=== PATIENT | female | born 1970 | race Caucasian/White ===

== ENCOUNTER 2024-12-17 22:28 | Emergency (ER) | payer MEDICARE, MEDICAID, SELFPAY ==
[2024-12-17 22:31] VITALS: BP 185/76; PULSE 69; RESP 18; TEMP 36.7; O2SAT 97
--- OUTSIDE RECORDS SUMMARY | 2024-12-17 22:33 | XMS_ITS | Continuity of Care Document ---
Author Organization [facility] Address [address] [place] [address] Phone Care Team Providers Care Chain Puller Name Role Phone Marilu Clifford PA-C Unavailable Unavailable Advance Directives Directive Yes / No Effective Date File Name No Information Encounters Encounter Description Practice Location Reason(s) For Visit Diagnoses Date Provider Providers Copied on Encounter [facility], [address] [place] [address], [facility], tel: [phone] [place] chart update (chief complaint) No Information Darrin Michel. [address] [place] [address], [facility], . tel: [phone] Family History Family Member Type Diagnosis Age At Onset No Information Payers Payer name Insurance type Covered alliance party ID Authoriza tion(s) No Information Social History Type Description Quantity Date Captured Comments Sex Female Smoking Status No Information Chief Complaint And Reason For Visit From encounter dated '12/28/2012 13:43'. chart update (chief complaint) Reason For Referral Reason For Referral No Information History Of Present Illness Encounter Date Complaint History Of Prese nt Illness No Information Functional Status Date Functional Assessmen t No Information Instructions Date Instruction Additional Infor mation No Information Assessments Type Assessment Date No Information Patient Care Teams Name Effective Dates (start - stop) Status Members No Information
--- OUTSIDE RECORDS SUMMARY | 2024-12-17 22:33 | XMS_ITS | Clinical Summary ---
Author Organization [facility] Address [address] [facility] [place] [address] Care Team Providers Care Battery Loader Name Role Phone Adele Lagos MD Primary Care Provider Source Comments [facility],non-owned Affiliates and Associated Physician Practices is amultiple site organization consisting of ambulatory clinics and hospital sitesin [place], [place], [place] and [place]. This disclosure is being madepursuant to the Care Everywhere program and may not contain all information available regarding this patient. Last updated 18.[facility] Allergies Active Allergy Reactions Criticality Noted Date Comments Diphenhydramine 11/15/2011 irritable Clarithromycin Nausea and/or Vomiting 2 Prochlorperazine 11/15/2011 irritable Sumatriptan 11/15/2011 tachycardic Metoclopramide Unknown 01/09/2017 Patient becomes irritable with IV and IM - able to take PO. Medications * Be aware that medications may not be up to date on this document. Alwaysverify current medications with the patient. Medication Sig Dispensed Refills Start Date End Date Status ketorolac (TORADOL) 10 MG tablet Take 10 mg by mouth every 4 hours as needed. Active butalbital-acetami nophen-caffeine (FIORICET) 50-325-40 MG tablet Take 1 Tab by mouth every 4 hours as needed. Active metoprolol succinate XL 24hr (TOPROL XL) 200 MG tablet Take 200 mg by mouth at bedtime. Active citalopram (CELEXA) 20 MG tablet Take 40 mg by mouth once daily Active lovastatin (MEVACOR) 20 MG tablet Take 40 mg by mouth at bedtime Active metoclopramide (REGLAN) 10 MG tablet Take 10 mg by mouth at bedtime. Active insulin glargine (LANTUS) injection Inject 55 Units subcutaneously at bedtime Active desogestrel-ethiny l estradiol (KARIVA) 0.15-0.02/0.01 MG (01/02) tablet Take 1 Tab by mouth once daily. Active insulin lispro (HUMALOG) injection Inject subcutaneously 3 times daily before meals Takes 10 units in the morning, 15 units at lunch, and 20units at supper Active ibuprofen (MOTRIN) 800 MG tablet Take 1 Tab by mouth 3 times daily as needed for Pain. 20 Tab 0 02/21/2012 Active amLODIPine (NORVASC) 5 MG tablet Take 5 mg by mouth at bedtime Active ketorolac (TORADOL) injection Inject 60 mg into muscle once Active ondansetron, disintegrating, (ZOFRAN ODT) 4 MG tablet Take 1 Tab by mouth every 6 hours as needed for Nausea/Vomiting Allow tablet to dissolve on the tongue 20 Tab 01/09/2017 Active Active Problems No known active problems Social History Tobacco Use Types Packs/Day Years Used Date Smoking Tobacco: Never Alcohol Use Standard Drinks/Week Comments No 0 (1 standard drink = 0.6 oz pur e alcohol) Sex and Gender Information Value Date Recorded Sex Assigned at Not on file Gender Identity Not on file Sexual Orientation Not on file Last Filed Vital Signs Vital Sign Reading Time Taken Comments Blood Pressure 144/87 03/14/2017 8:23 PM CDT Pulse 87 03/14/2017 8:21 PM CDT Temperature 36.4 C (97.6 F) 03/14/2017 6:51 PM CDT Respiratory Rate 18 03/14/2017 8:21 PM CDT Oxygen Saturation 96% 03/14/2017 6:51 PM CDT Inhaled Oxygen Concentration - - Weight 111.1 kg (245 lb) 03/14/2017 6:51 PM CDT Height 170.2 cm (5' 7 ) 03/14/2017 6:51 PM CDT Body Mass Index 38.37 03/14/2017 6:51 PM CDT Plan of Treatment Health Maintenance Due Date Last Done Comments DENNYS (AGES 45-75) - COL ON CA SCREENING 1970 COLON MONITORING 1970 COLONOSCOPY - COLON CA SCREENING 1970 CT COLONOGRAPHY - COLON CA SCREENING 1970 Colorectal Cancer Screening 1970 FIT - COLON CA SCREENING 1970 FLEX SIG - COLON CA SCREENING 1970 MAMMOGRAM 1970 MEDICARE AWV 12 MONTHS 1970 PAP SMEAR 1970 HIV SCREENING 1985 HEPATITIS C SCREENING 09/12/1988 DTAP/TDAP/TD VACCINES (1 - Tdap) 1989 HEPATITIS B VACCINE (1 of 3 - 19+ 3-dose series) 1989 PNEUMOCOCCAL VACCINE 50+ (1 of 1 - PCV) 2020 ZOSTER VACCINE (1 of 2) 2020 COVID-19 VACCINE (1 - 2023-2 5 season) 2024 DEPRESSION SCREENING 09/14/2024 INFLUENZA VACCINE (Season Ended) 2025 HIB VACCINE Aged Out No longer eligi ble based on patient's age to complete this topic HPV VACCINE Aged Out No longer eligi ble based on patient's age to complete this topic MENINGOCOCCAL (Group B) VACC INE SHARED DECISION-MAKING Aged Out No longer eligibl e based on patient's age to complete this topic MENINGOCOCCAL GROUPS A/C/Y/W VACCINE Aged Out No longer eligible b ased on patient's age to complete this topic PNEUMOCOCCAL VACCINE Aged Out No long er eligible based on patient's age to complete this topic Care Teams Battery Loader Relationship Specialty Start Date End Date Adele Lagos MD PCP - General Family Medicine 12/19/16
--- OUTSIDE RECORDS SUMMARY | 2024-12-17 22:33 | XMS_ITS | Clinical Summary ---
Author Organization [facility] Address [address] [place] [address] Phone Care Team Providers Care Court Monitor Name Role Phone Adele Lagos MD Primary Care Provider [phone] Allergies Active Allergy Reactions Criticality Noted Date Comments Clarithromycin Nausea and Vomiting Low 04/08/2014 Diphenhydramine Hcl Anxiety Low 04/08/2014 Prochlorperazine Edisylate Anxiety Low 4 Sumatriptan Succinate Other (See Comments) 03/15 tachycardia Medications loyluzejdm-tom-m cetaminop-caf (FIORICET #3) 44-61-233-40 mg capsule Take 1 Cap by mouth every 4 hours as needed for Migraine. Active metoprolol succinate (TOPROL XL) 100 mg Extended Release 24 hour tablet Take 200 mg by mouth daily at bedtime. Active amLODIPine (NORVASC) 5 mg tablet Take 5 mg by mouth daily at bedtime. Active atorvastatin (LIPITOR) 40 mg tablet Take 40 mg by mouth Daily LATE. Active citalopram (CELEXA) 40 mg tablet Take 40 mg by mouth daily at bedtime. Active metoclopramide HCl (REGLAN) 10 mg tablet Take 10 mg by mouth daily at bedtime. Active Desogestrel-Ethi nyl estradiol (KARIVA, 28,) 0.15-0.02mg x21 /0.01 mg x 5 tablet Take 1 Tab by mouth daily at bedtime. Active amitriptyline (ELAVIL) 100 mg tablet Take 100 mg by mouth daily at bedtime. Active KETOROLAC TROMETHAMINE (TORADOL IM) Inject 60 mg by intramuscular injection 1 time daily as needed for Other (See Comment) (migraine). Active ondansetron (ZOFRAN) 4 mg Tablet Take 1 Tab by mouth every 12 hours as needed for Nausea (vomit). 10 Tab None 05/27/20 14 Active Active Problems Problem Noted Date Diagnosed Date Migraine headache 05/13/2014 Social History Tobacco Use Types Packs/Day Years Used Date Smoking Tobacco: Never Smokeless Tobacco: Never Alcohol Use Standard Drinks/Week Comments No 0 (1 standard drink = 0.6 oz pur e alcohol) Comments No Sex and Gender Information Value Date Recorded Sex Assigned at Not on file Legal Sex Female 7:45 PM CDT Gender Identity Not on file Sexual Orientation Not on file Last Filed Vital Signs Vital Sign Reading Time Taken Comments Blood Pressure 144/73 02/03/2017 6:34 PM CDT Pulse 75 06/26/2014 9:30 PM CDT Temperature 36.6 C (97.9 F) 02/03/2017 6:34 PM CDT Respiratory Rate 18 02/03/2017 6:34 PM CDT Oxygen Saturation 98% 02/03/2017 6:34 PM CDT Inhaled Oxygen Concentration - - Weight 113.4 kg (250 lb) 02/03/2017 4:57 PM CDT Height 170.2 cm (5' 7 ) 02/03/2017 4:57 PM CDT Body Mass Index 39.16 02/03/2017 4:57 PM CDT Plan of Treatment Health Maintenance Due Date Last Done Comments DTAP/TDAP/TD VACCINES (1 - Tdap) 1989 HEPATITIS B VACCINES (1 of 3 - 19+ 3-dose series) 12/1989 HPV/Cotest (21-29) 1991 CERVICAL CANCER SCREENING 2000 HPV/Cotest (30-65) 2000 PAP SMEAR 2000 BREAST CANCER SCREENING 2010 COLORECTAL SCREENING 2015 Colorectal Cancer Screening 2015 FIT-DNA Q 3 years 2015 FIT/FOBT Q 1 year 2015 Flex Sig/CT Colonography Q 5 years 2015 ZOSTER VACCINE (1 of 2) 2020 INFLUENZA VACCINE (#1) 2024 Insurance MEDICARE PART A AND B MEDICAID [place] Care Teams Court Monitor Relationship Specialty Start Date End Date Adele Lagos MD [address] [place] [address] PCP - General Family Practice 11/29/16
--- OUTSIDE RECORDS SUMMARY | 2024-12-17 22:33 | XMS_ITS | Data Portability ---
Author Organization [facility], [address] 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 She returns for follow up of increased pain. She has previously undergone two neuro interventional procedures with cyst aspiration at [facility]. She tells me that for the last several weeks, she has been experiencing left shoulder and arm pain as well as heaviness in the anterior chest along with lower extremity pain in the left hip and leg. Neurologic exam is significant for 4+ bilateral hip flexor weakness and absent Achilles and patellar reflexes bilaterally. MRIs of the cervical, thoracic and lumbar spine were performed today at [facility]. The cervical study reveals excellent alignment and mild degenerative changes, most significant at C5-6 where a tiny central disc bulge barely contacts the cord. Lumbar spine MRI shows equally mild changes, most significant at L4-5 with right foraminal stenosis. The thoracic study is, to my eye, stable, compared to her prior imaging, showing presence of the T5 through 7 arachnoid cyst. I suspect some of her symptoms are a result of re-accumulation of cyst fluid. I am referring her to [facility] for consideration of repeat cyst aspiration. I have encouraged her to try to lose weight and make the possibility of a thoracic laminectomy safer. Thank you for allowing us to participate in this patient's care. Not available 08/04/2024 15:06:37 11/02/2024 11/02/2024 1. Healthy lifestyle was encouraged, including low glycemic/low processed food diet and regular exercise. Medications can be refilled as needed. The patient does have CAD. She is currently managed by cardiology. She is on metoprolol and a statin medication. 2. Hypertension is stable under the current medication regimen of amlodipine and metoprolol. No medication changes at this time. Recommend continuing to monitor home blood pressure readings. Request that they report changes in numbers or problems with medication. Discussed continued lifestyle modifications for weight and blood pressure. 3. The patient does have morbid obesity by bmi diagnosis. Diet and and weight loss recommended. 4. 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 She is currently on the Omnipod and follows with endocrinology. 5. The patient does have a spinal arachnoid cyst. It has been drained three times. She currently follows with neurosurgery. 6. The patient lr shave history of chronic back pain including lumbar spondylosis. She has previously done PT for the back and seen pain management. 7. Patient s hyperlipidemia is stable on current medication regimen of atorvastatin. No medication changes at this time. Request that they report changes in symptoms such as myalgias or arthralgias. Continue to follow a low-fat diet, avoid processed and fast foods. Discussed continued active lifestyle at least 20 minutes per day exercise/activity . 8. GERD is stable on current medication regimen of pantoprazole. No medication changes at this time. Should symptoms worsen or fail to respond to medication, then I requested a progress report. Discussed continued lifestyle modifications of not eating two hours before bed, elevating the head of the bed two inches, and dietary changes for improved symptom control. 9. The patient does upon record review, have history of asthma and I did receive her discharge summary from her time in the hospital last May for which they referred her to pulmonology for. It looks like she was requiring oxygen at this time. They did think some part of it was perhaps asthma or undiagnosed sleep apnea. They wanted her to follow up with pulmonology outpatient to have a sleep study and PFT. The patient was supposed to see a fisher line in [place] but because of the distance to get there, she did not end up going but would like referral to a fisher line here. We will make that referral today. 10. The patient has history of gastroparesis related to her diabetes. She currently takes antinausea medicines for this. 11. Discussed the patient s left shoulder pain. She has not done physical therapy for this yet. Had x-rays that were normal. Would recommend physical therapy at this time to help satisfy insurance requirements of possible additional imaging. We will go ahead and place a physical therapy order. 12. Discussed her bilateral leg cramps. Unrelated to her neuropathy. Recommended increased water intake and taking magnesium as needed. 13. The patient does have history of fibromyalgia. She takes hydrocodone occasionally. She usually gets about ten per month and tizanidine as needed. 14. Depression is stable on current medication regimen of citalopram. No medication changes at this time. Patient denies suicidal and/or homicidal ideation. Reviewed possible side effects of and expected benefits of medication. Should any changes arise, or dosing changes be requested, they are to contact us at that time. 15. The patient uses doxepin for her insomnia and help sleeping. She has been on the 50 mg for a while but feels like she could use an increased dose, so we will go ahead and increase to the 75 mg. 16. The patient will follow up in six months or sooner as needed. 17. I personally spent a total of 60 minutes on the patient on this date of service including both ohit-kp-momz and non- trbr-we-nqle time excluding any separately reportable services. SKK [email or web address] Not available 11/03/2024 10:26:31 12/01/2024 12/01/2024 1. The patient s vitals are stable today. The patient s legs are not swollen on exam. I do not hear anything in the lung exam. I am honestly most likely to think this is heart failure or anything with the lungs. I am thinking more along the lines of deconditioning and possibly just some venous insufficiency. Did recommend the patient wearing compression stockings unless sleeping and she does follow with cardiology already. They are wanting to do an exercise stress test. I encouraged her to do this as well. We will get a chest x-ray and BNP today and will follow up with those. 2. Discussed precautions with the patient and gave them signs and symptoms to look out for and precautions on when to call the clinic or go to the emergency department. SKK [email or web address] Not available 12/01/2024 21:57:27 Plan of Treatment Reminders Order Date Submit Date Provider Last Modified By Organization Details Last Modified Time Details Appointments Malissa terry Patient 20.EST 2024 03:00P M Dr. Pauly Vizcaino Not available Not available Not available Malissa terry Patient 15.EST 2024 11:30A M Tiffanie Painting Not available Not available Not available New Patient Visit 20.NEW 2024 02:40P M Dr. Carrol Villagomez Not available Not available Not available Malissa terry Patient 20.EST 2024 02:00P M Dr. Pauly Vizcaino Not available Not available Not available Lab pro BNP (pro B-type natriur etic peptide ), serum or plasma 2024 025 [facility], [address] [place] [address], [address], 12/02/2024 00:46:11 Referral physica l therapi st referra l 2024 025 [facility], [address] [place], [address], 11/09/2024 04:26:23 pulmono logist referra l 2024 025 vinay Villagomez MD, [address] [place] [address], [address], 11/08/2024 15:04:[address] guided aspirat ion procedu re (PROC) - CT guided cyst aspirat ion at T5-T7 2023 024 [facility]) Scheduling, [address] [place] [address], [address], 08/30/2024 09:57:37 Surgeries None recorde d. Imaging XR, chest, 2 view 2024 025 [facility] Scheduling, [address] [place], [address], 12/01/2024 23:35:54 MAMMO, screeni ng, digital , bilater al 2024 025 [facility], [address] [facility], [place], [address], 12/16/2024 04:20:00 Medication Orders tizanid ine 4 mg tablet 2024 025 [place], [address] [place] [address], [address], 11/10/2024 13:52:17 hydroco done 5 mg-acet aminoph en 325 mg tablet 2024 025 [place], [address] [place] [address], [address], 12/01/2024 16:35:23 doxepin 75 mg capsule 2024 025 [place], [address] [place] [address], [address], 11/10/2024 13:52:14 pantopr azole 40 mg tablet, delayed release 2024 025 [place], [address] [place] [address], [address], 11/02/2024 15:40:30 atorvas tatin 40 mg tablet 2024 025 [place], [address] [place] [address], [address], 11/02/2024 15:35:29 dicyclo mine 20 mg tablet 2024 025 [place], [address] [place] [address], [address], 11/02/2024 15:35:28 amlodip ine 5 mg tablet 2024 025 [place], [address] [place] [address], [address], 11/02/2024 15:40:31 metopro lol succina te ER 50 mg tablet, extende d release 24 hr 2024 025 [place], [address] [place] [address], [address], 11/10/2024 13:52:16 citalop silvio 40 mg tablet 2024 025 [place], [address] [place] [address], [address], 11/10/2024 13:52:16 Patient TargetsNo targets recorded. Patient InstructionsNo instructions recorded. 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 Referring Physician: Pauly Vizcaino [facility], Encounter Date: 11/02/2024 Physical Therapist Referral for Pain of left shoulder region Referring Physician: Pauly Vizcaino [facility], Encounter Date: 11/02/2024 Results Created Date Observation Date Name Description Value Unit Range Abnormal Flag Note LastModifiedBy Organization Detail LastModifiedTime 09/20/19 25 09/20/2024 URINA LYSIS color YELLOW normal : yellow Not Available [facility] Scheduling [address] [place], [address], 09/20/2024 17:53:39 09/20/19 25 09/20/2024 URINA LYSIS character CLOUDY normal : clear Not Available [facility] Scheduling [address] [place], [address], 09/20/2024 17:53:39 09/20/19 25 09/20/2024 URINA LYSIS spec. grav 1.020 normal : 1.003- 1.029 Not Available [facility] Scheduling [address] [place], [address], 09/20/2024 17:53:39 09/20/19 25 09/20/2024 URINA LYSIS pH 6.0 normal : 4.5 - 7.8 Not Available [facility] Scheduling [address] [place], [address], 09/20/2024 17:53:39 09/20/19 25 09/20/2024 URINA LYSIS leukocytes 1+ normal : negati ve Not Available [facility] Scheduling [address] [place], [address], 09/20/2024 17:53:39 09/20/19 25 09/20/2024 URINA LYSIS nitrite NEGATI VE normal : negati ve Not Available [facility] Scheduling [address] [place], [address], 09/20/2024 17:53:39 09/20/19 25 09/20/2024 URINA LYSIS protein NEGATI VE normal : negati ve Not Available [facility] Scheduling [address] [place], [address], 09/20/2024 17:53:39 09/20/19 25 09/20/2024 URINA LYSIS glucose NEGATI VE normal : negati ve Not Available [facility] Scheduling [address] [place], [address], 09/20/2024 17:53:39 09/20/19 25 09/20/2024 URINA LYSIS ketones NEGATI VE normal : negati ve Not Available [facility] Scheduling [address] [place], [address], 09/20/2024 17:53:39 09/20/19 25 09/20/2024 URINA LYSIS urobilinogen 0.2 normal : 0.2 - 1.0 Not Available [facility] Sched[facility] [address] [place], [address], 09/20/2024 17:53:39 09/20/19 25 09/20/2024 URINA LYSIS bilirubin NEGATI VE normal : negati ve Not Available [facility] Scheduling [address] [place], [address], 09/20/2024 17:53:39 09/20/19 25 09/20/2024 URINA LYSIS blood NEGATI VE normal : negati ve MICRO SCOPI C Not Available [facility] Scheduling [address] [place], [address], 09/20/2024 17:53:39 09/20/19 25 09/20/2024 URINA LYSIS WBC/hpf 3-5 normal : 0-5 hpf Not Available [facility] [address] [place], [address], 09/20/2024 17:53:39 09/20/19 25 09/20/2024 URINA LYSIS RBC/hpf 0-2 normal : 0-3 hpf Not Available [facility] [address] [place], [address], 09/20/2024 17:53:39 09/20/19 25 09/20/2024 URINA LYSIS epith/hpf >50 normal : 0-5 hpf Not Available [facility] Scheduling [address] [place], [address], 09/20/2024 17:53:39 09/20/19 25 09/20/2024 URINA LYSIS cast/lpf NONE SEEN normal : 0-4 lpf Not Available [facility] [address] [place], [address], 09/20/2024 17:53:39 09/20/19 25 09/20/2024 URINA LYSIS crystals NONE SEEN normal : negati ve Not Available [facility] [address] [place], [address], 09/20/2024 17:53:39 09/20/19 25 09/20/2024 URINA LYSIS bacteria TRACE normal : negati ve abnormal Not Available [facility] [address] [place], [address], 09/20/2024 17:53:39 10/16/1910/21/2024 CULTU RE BLOOD results _BLOO D CULTU RE_ PRELI MINAR Y REPOR T _LAC_ _ 10/18. 249.L B . _NO_G ROWTH _AFTE R_48_ HOURS _INCU BATIO N____ _ 10/18. 249.L B . FINAL REPOR T _NO_A EROBI C/ADALBERTO EROBI C_GRO WTH_A FTER_ 5_DAY S_INC UBAT. _ 10/21.0 813.C ML. _ _ Micro biolo gy Speci men Sourc e Colle ction Date Colle ction Time Speci men Note: Recei pt Date Exam Id. No: [id number] Exam Statu s Compl etion Date Compl etion Time 10/18. 249.L B . 10/21.0 813.C ML.CO MPLET E Not Available [facility] Scheduling [address] [place], [address], 10/21/2024 09:13:55 10/16/1908 1110/16/2024 MAGNE SIUM magnesium 1.7 mg/dL 1.7 - 2.8 Not Available [facility] Scheduling [address] [place], [address], 10/16/2024 07:43:53 10/16/19 25 10/16/2024 PROCA LCITO ALMA DELIA (PCT) procalcitoni n 4.042 A graciela ntrat ion <0.5 ng/mL repre sents a low risk of sever e sepsi s and/o r septi c shock . A graciela ntrat ion >2.0 ng/mL repre sents a high risk of sever e sepsi s and/o r septi c shock . Never thele ss, graciela ntrat ions <0.5 ng/mL do not exclu de an infec tion, on accou nt of local ized infec tions (with out syste deetphi signs ) which can be assoc iated with such low graciela ntrat ions, or a syste deepthi infec tion in its initi al stage s (<6 hours ). Futhe rmore , incre ased proca lcito alma delia can occur witho ut infec tion. PCT graciela ntrat ions betwe en 0.5 and 2.0 ng/mL shoul d be inter prete d ellen milner into accou nt patie nt's histo ry. It is recom nate d to retes t PCT witho ut 6-24 hours if any graciela ntrat ion <2.0 ng/mL are obtai tiffanie. Not Available [facility] [address] [place], [address], 10/16/2024 07:28:17 10/16/19 25 10/16/2024 C-PRECIOUS CTIVE PROTE IN CRP 9.381 mg/dL 0.000 - 0.500 high Not Available [facility] Sched[facility] [address] [place], [address], 10/16/2024 07:14:57 10/16/19 25 10/16/2024 COMPL ETE METAB OLIC PANEL sodium 141 mmol/ L 136 - 145 Not Available [facility]uling [address] [place], [address], 10/16/2024 07:14:37 10/16/19 25 10/16/2024 COMPL ETE METAB OLIC PANEL potassium 3.8 mmol/ L 3.5 - 5.1 Not Available [facility] Scheduling [address] [place], [address], 10/16/2024 07:14:37 10/16/19 25 10/16/2024 COMPL ETE METAB OLIC PANEL chloride 110 mmol/ L 98 - 107 high Not Available [facility] Scheduling [address] [place], [address], 10/16/2024 07:14:37 10/16/19 25 10/16/2024 COMPL ETE METAB OLIC PANEL CO2 23 mmol/ L 22 - 28 Not Available [facility] Scheduling [address] [place], [address], 10/16/2024 07:14:37 10/16/19 25 10/16/2024 COMPL ETE METAB OLIC PANEL glucose 129 mg/dL 70 - 105 high Not Available [facility] Scheduling [address] [place], [address], 10/16/2024 07:14:37 10/16/19 25 10/16/2024 COMPL ETE METAB OLIC PANEL BUN 15 mg/dL 7 - 18 Not Available [facility] Scheduling [address] [place], [address], 10/16/2024 07:14:37 10/16/19 25 10/16/2024 COMPL ETE METAB OLIC PANEL creatinine 0.83 mg/dL 0.44 - 1.24 Not Available [facility] Scheduling [address] [place], [address], 10/16/2024 07:14:37 10/16/19 25 10/16/2024 COMPL ETE METAB OLIC PANEL total protein 6.0 g/dL 6.0 - 8.3 Not Available [facility] Scheduling [address] [place], [address], 10/16/2024 07:14:37 10/16/19 25 10/16/2024 COMPL ETE METAB OLIC PANEL albumin 3.2 g/dL 3.5 - 5.0 low Not Available [facility] Scheduling [address] [place], [address], 10/16/2024 07:14:37 10/16/19 25 10/16/2024 COMPL ETE METAB OLIC PANEL T bilirubin 0.7 mg/dL 0.2 - 1.0 Not Available [facility] Scheduling [address] [place], [address], 10/16/2024 07:14:37 10/16/19 25 10/16/2024 COMPL ETE METAB OLIC PANEL SGPT 19 IU/L 10 - 40 Not Available [facility]uling [address] [place], [address], 10/16/2024 07:14:37 10/16/19 25 10/16/2024 COMPL ETE METAB OLIC PANEL alk phos 122 IU/L 32 - 92 high Not Available [facility] Scheduling [address] [place], [address], 10/16/2024 07:14:37 10/16/19 25 10/16/2024 COMPL ETE METAB OLIC PANEL SGOT 18 IU/L 10 - 42 Not Available [facility] Scheduling [address] [place], [address], 10/16/2024 07:14:37 10/16/19 25 10/16/2024 COMPL ETE METAB OLIC PANEL calcium 8.2 mg/dL 8.4 - 10.2 low Not Available [facility] Scheduling [address] [place], [address], 10/16/2024 07:14:37 10/16/19 25 10/16/2024 COMPL ETE METAB OLIC PANEL age 54 yr Not Available [facility] Scheduling [address] [place], [address], 10/16/2024 07:14:37 10/16/19 25 10/16/2024 COMPL ETE METAB OLIC PANEL eGFR 84 \BLDo \eGFR INTER PRETI VE TEXT\ BLDx\ This eGFR is calcu lated using 2020 CKD-E PI Creat inine equat ion witho ut race modif ier based on the NKF-A SN task force recom menda tions . In most healt hy peopl e the kennedy l GFR is 90 mL/mi n/1.7 3 m2 or highe r. A resul t of 60-89 mL/mi n/1.7 3 m2 with kidne y damag e may be kennedy l in some peopl e(suc h as the elder ly, infan ts). A resul t of 60-89 mL/mi n/1.7 3 m2 for three month s or more, along with kidne y damag e(suc h as persi stent prote in in the urine ), means the perso n has early kidne y disea se. When GFR is <60 for three month s or more, chron ic kidne y disea se(CK D) is prese nt. Not Available [facility]uling [address] [place], [address], 10/16/2024 07:14:37 10/16/19 25 10/16/2024 CBC-C OMPLE TE WBC 5.4 10^3u L 4.0 - 10.8 Not Available [facility] Scheduling [address] [place], [address], 10/16/2024 06:58:18 10/16/19 25 10/16/2024 CBC-C OMPLE TE RBC 3.71 10^6u L 3.80 - 5.20 low Not Available [facility]uling [address] [place], [address], 10/16/2024 06:58:18 10/16/19 25 10/16/2024 CBC-C OMPLE TE hemoglobin 9.9 g/dL 11.7 - 16.0 low Not Available [facility] Scheduling [address] [place], [address], 10/16/2024 06:58:18 10/16/19 25 10/16/2024 CBC-C OMPLE TE hematocrit 30.0 % 35.0 - 47.0 low Not Available [facility] Scheduling [address] [place], [address], 10/16/2024 06:58:18 10/16/19 25 10/16/2024 CBC-C OMPLE TE MCV 81 fL 80 - 100 Not Available [facility] Scheduling [address] [place], [address], 10/16/2024 06:58:18 10/16/19 25 10/16/2024 CBC-C OMPLE TE MCH 27 pg 28 - 33 low Not Available [facility] Scheduling [address] [place], [address], 10/16/2024 06:58:18 10/16/19 25 10/16/2024 CBC-C OMPLE TE MCHC 33 g/dL 32 - 36 Not Available [facility] Scheduling [address] [place], [address], 10/16/2024 06:58:18 10/16/19 25 10/16/2024 CBC-C OMPLE TE RDW 14.5 % 11.5 - 15.5 Not Available [facility] Scheduling [address] [place], [address], 10/16/2024 06:58:18 10/16/19 25 10/16/2024 CBC-C OMPLE TE platelet 194 10^3u L 140 - 440 Not Available [facility] Scheduling [address] [place], [address], 10/16/2024 06:58:18 10/16/19 25 10/16/2024 CBC-C OMPLE TE MPV 7.4 fL 7.5 - 11.0 low Not Available [facility] Scheduling [address] [place], [address], 10/16/2024 06:58:18 10/16/19 25 10/16/2024 CBC-C OMPLE TE %neutrophils 56.8 % 40.0 - 75.0 Not Available [facility] Scheduling [address] [place], [address], 10/16/2024 06:58:18 10/16/19 25 10/16/2024 CBC-C OMPLE TE %lymphocytes 29.8 % 15.0 - 45.0 Not Available [facility] Scheduling [address] [place], [address], 10/16/2024 06:58:18 10/16/19 25 10/16/2024 CBC-C OMPLE TE %monocytes 9.9 % 2.0 - 12.0 Not Available [facility] Scheduling [address] [place], [address], 10/16/2024 06:58:18 10/16/19 25 10/16/2024 CBC-C OMPLE TE %eosinophils 3.1 % 0.0 - 5.0 Not Available [facility] Scheduling [address] [place], [address], 10/16/2024 06:58:18 10/16/19 25 10/16/2024 CBC-C OMPLE TE %basophils 0.4 % 0.0 - 2.0 Not Available [facility] Scheduling [address] [place], [address], 10/16/2024 06:58:18 10/16/19 25 10/16/2024 CBC-C OMPLE TE neutrophil 3.1 10^3/ uL 1.7 - 7.0 Not Available [facility] Scheduling [address] [place], [address], 10/16/2024 06:58:18 10/16/19 25 10/16/2024 CBC-C OMPLE TE lymphocyte 1.6 10^3/ uL 0.9 - 3.7 Not Available [facility] Scheduling [address] [place], [address], 10/16/2024 06:58:18 10/16/19 25 10/16/2024 CBC-C OMPLE TE monocyte 0.5 10^3/ uL 0.2 - 0.8 Not Available [facility] Scheduling [address] [place], [address], 10/16/2024 06:58:18 10/16/19 25 10/16/2024 CBC-C OMPLE TE eosinophil 0.2 10^3/ uL 0.0 - 0.5 Not Available [facility] Scheduling [address] [place], [address], 10/16/2024 06:58:18 10/16/19 25 10/16/2024 CBC-C OMPLE TE basophil 0.0 10^3/ uL 0.0 - 0.2 Not Available [facility] Scheduling [address] [place], [address], 10/16/2024 06:58:18 10/16/19 25 10/16/2024 CBC-C OMPLE TE mdw 19.63 0.00 - 20.00 {CD] Not Available [facility] Scheduling [address] [place], [address], 10/16/2024 06:58:18 10/16/19 25 10/16/2024 CBC-C OMPLE TE manual diff NOT INDICA MICHELLE Not Available [facility] Scheduling [address] [place], [address], 10/16/2024 06:58:18 10/16/19 25 10/16/2024 LACTI C ACID lactic acid 0.84 mmol/ L 0.50 - 2.20 Not Available [facility] Scheduling [address] [place], [address], 10/16/2024 06:51:31 10/16/19 25 10/21/2024 CULTU RE BLOOD results _BLOO D CULTU RE_ PRELI MINAR Y REPOR T _LEFT _AC__ _ 10/18.1 249.L B . _NO_G ROWTH _AFTE R_48_ HOURS _INCU BATIO N____ _ 10/18.1 249.L B . FINAL REPOR T _NO_A EROBI C/ADALBERTO EROBI C_GRO WTH_A FTER_ 5_DAY S_INC UBAT. _ 10/21.0 813.C ML. _ _ Micro biolo gy Speci men Sourc e Colle ction Date Colle ction Time Speci men Note: Recei pt Date Exam Id. No: [id number] Exam Statu s Compl etion Date Compl etion Time 10/18.1 249.L B . 10/21.0 813.C ML.CO MPLET E Not Available [facility] Scheduling [address] [place], [address], 10/21/2024 09:13:44 10/16/19 25 10/19/2024 CULTU RE/UR INE results _CULT URE URINE _ Not Available [facility] Scheduling [address] [place], [address], 10/19/2024 11:01:58 10/16/19 25 10/19/2024 CULTU RE/UR INE final report CLEAN CATCH SPECIM EN _50,0 00_cf u/ml_ ___ 10/19.1 001.C ML. ___ Micro biolo gy Not Available [facility] [address] [place], [address], 10/19/2024 11:01:58 10/16/19 25 10/19/2024 CULTU RE/UR INE results Speci [place] Sourc e [id number] 0001 Colle ction Date 10/16 Colle ction Time 04:38 Speci men Note: Recei [place] Date [place] No: [id number] Exam Statu s Compl etion Date 10/18 Compl etion Time 23:03 Organ ism # 1: Strep tococ cus group B (strg rb) 50 000 cfu/m L Antib iotic s strgr b(1) Benzy lpeni cilli n <=0.0 6 S Ampic illin <=0.2 5 S Cefot axime <=0.1 2 S Ceftr iaxon e <=0.1 2 S Levof loxac in 1 S Moxif loxac in 0.12 S Linez olid <=2 S Vanco mycin 0.5 S Tetra cycli ne >=16 R Tigec yclin e <=0.0 6 S S = SUSCE PTIBL E I = INTER MEDIA TE R = RESIS TANT 10/19.1 001.C ML. 10/19.1 001.C ML.CO MPLET E CLEAN CATCH SPECI MEN Not Available [facility] Scheduling [address] [place], [address], 10/19/2024 11:01:58 10/16/19 25 10/16/2024 URINA LYSIS color YELLOW normal : yellow Not Available [facility] [address] [place], [address], 10/16/2024 07:12:36 10/16/19 25 10/16/2024 URINA LYSIS character CLEAR normal : clear Not Available [facility] [address] [place], [address], 10/16/2024 07:12:36 10/16/19 25 10/16/2024 URINA LYSIS spec. grav 1.015 normal : 1.003- 1.029 Not Available [facility] [address] [place], [address], 10/16/2024 07:12:36 10/16/1910/16/2024 URINA LYSIS pH 6.0 normal : 4.5 - 7.8 Not Available [facility] [address] [place], [address], 10/16/2024 07:12:36 10/16/1910/16/2024 URINA LYSIS leukocytes TRACE normal : negati ve Not Available [facility] [address] [place], [address], 10/16/2024 07:12:36 10/16/1910/16/2024 URINA LYSIS nitrite NEGATI VE normal : negati ve Not Available [facility] [address] [place], [address], 10/16/2024 07:12:36 10/16/1910/16/2024 URINA LYSIS protein NEGATI VE normal : negati ve Not Available [facility] [address] [place], [address], 10/16/2024 07:12:36 10/16/1910/16/2024 URINA LYSIS glucose NEGATI VE normal : negati ve Not Available [facility] [address] [place], [address], 10/16/2024 07:12:36 10/16/19 25 10/16/2024 URINA LYSIS ketones NEGATI VE normal : negati ve Not Available [facility] [address] [place], [address], 10/16/2024 07:12:36 10/16/19 25 10/16/2024 URINA LYSIS urobilinogen 1.0 normal : 0.2 - 1.0 Not Available [facility] [address] [place], [address], 10/16/2024 07:12:36 10/16/19 25 10/16/2024 URINA LYSIS bilirubin NEGATI VE normal : negati ve Not Available [facility] [address] [place], [address], 10/16/2024 07:12:36 10/16/19 25 10/16/2024 URINA LYSIS blood NEGATI VE normal : negati ve MICRO SCOPI C Not Available [facility] [address] [place], [address], 10/16/2024 07:12:36 10/16/19 25 10/16/2024 URINA LYSIS WBC/hpf 3-5 normal : 0-5 hpf Not Available [facility] [address] [place], [address], 10/16/2024 07:12:36 10/16/19 25 10/16/2024 URINA LYSIS RBC/hpf 0-2 normal : 0-3 hpf Not Available [facility] [address] [place], [address], 10/16/2024 07:12:36 10/16/19 25 10/16/2024 URINA LYSIS epith/hpf 10-20 normal : 0-5 hpf Not Available [facility] [address] [place], [address], 10/16/2024 07:12:36 10/16/19 25 10/16/2024 URINA LYSIS cast/lpf NONE SEEN normal : 0-4 lpf Not Available [facility] [address] [place], [address], 10/16/2024 07:12:36 10/16/19 25 10/16/2024 URINA LYSIS crystals NONE SEEN normal : negati ve Not Available [facility] [address] [place], [address], 10/16/2024 07:12:36 10/16/19 25 10/16/2024 URINA LYSIS bacteria TRACE normal : negati ve abnormal Not Available [facility] [address] [place], [address], 10/16/2024 07:12:36 10/16/19 25 10/16/2024 GLUCO SE POINT OF CARE TEST bedside glucose 133 mg/dL 70 - 105 high Not Available [facility] [address] [place], [address], 10/16/2024 04:58:18 11/17/19 25 11/16/2024 COMPL ETE METAB OLIC PANEL sodium 139 mmol/ L 136 - 145 Not Available [facility] [address] [place], [address], 11/17/2024 00:42:38 11/17/19 25 11/16/2024 COMPL ETE METAB OLIC PANEL potassium 4.6 mmol/ L 3.5 - 5.1 Not Available [facility] [address] [place], [address], 11/17/2024 00:42:38 11/17/19 25 11/16/2024 COMPL ETE METAB OLIC PANEL chloride 108 mmol/ L 98 - 107 high Not Available [facility] [address] [place], [address], 11/17/2024 00:42:38 11/17/19 25 11/16/2024 COMPL ETE METAB OLIC PANEL CO2 20 mmol/ L 22 - 28 low Not Available [facility] [address] [place], [address], 11/17/2024 00:42:38 11/17/19 25 11/16/2024 COMPL ETE METAB OLIC PANEL glucose 231 mg/dL 70 - 105 high Not Available [facility] [address] [place], [address], 11/17/2024 00:42:38 11/17/19 25 11/16/2024 COMPL ETE METAB OLIC PANEL BUN 16 mg/dL 7 - 18 Not Available [facility]uling [address] [place], [address], 11/17/2024 00:42:38 11/17/19 25 11/16/2024 COMPL ETE METAB OLIC PANEL creatinine 1.04 mg/dL 0.44 - 1.24 Not Available [facility] [address] [place], [address], 11/17/2024 00:42:38 11/17/19 25 11/16/2024 COMPL ETE METAB OLIC PANEL total protein 7.4 g/dL 6.0 - 8.3 Not Available [facility] [address] [place], [address], 11/17/2024 00:42:38 11/17/19 25 11/16/2024 COMPL ETE METAB OLIC PANEL albumin 4.0 g/dL 3.5 - 5.0 Not Available [facility] [address] [place], [address], 11/17/2024 00:42:38 11/17/19 25 11/16/2024 COMPL ETE METAB OLIC PANEL T bilirubin 1.5 mg/dL 0.2 - 1.0 high Not Available [facility] [address] [place], [address], 11/17/2024 00:42:38 11/17/19 25 11/16/2024 COMPL ETE METAB OLIC PANEL SGPT 27 IU/L 10 - 40 Not Available [facility] [address] [place], [address], 11/17/2024 00:42:38 11/17/19 25 11/16/2024 COMPL ETE METAB OLIC PANEL alk phos 128 IU/L 32 - 92 high Not Available [facility] [address] [place], [address], 11/17/2024 00:42:38 11/17/19 25 11/16/2024 COMPL ETE METAB OLIC PANEL SGOT 32 IU/L 10 - 42 Not Available [facility] [address] [place], [address], 11/17/2024 00:42:38 11/17/19 25 11/16/2024 COMPL ETE METAB OLIC PANEL calcium 9.6 mg/dL 8.4 - 10.2 Not Available [facility] [address] [place], [address], 11/17/2024 00:42:38 11/17/19 25 11/16/2024 COMPL ETE METAB OLIC PANEL age 54 yr Not Available [facility]uling [address] [place], [address], 11/17/2024 00:42:38 11/17/19 25 11/16/2024 COMPL ETE METAB OLIC PANEL eGFR 64 \BLDo \eGFR INTER PRETI VE TEXT\ BLDx\ This eGFR is calcu lated using 2020 CKD-E PI Creat inine equat ion witho ut race modif ier based on the NKF-A SN task force recom menda tions . In most healt hy peopl e the kennedy l GFR is 90 mL/mi n/1.7 3 m2 or highe r. A resul t of 60-89 mL/mi n/1.7 3 m2 with kidne y damag e may be kennedy l in some peopl e(suc h as the elder ly, infan ts). A resul t of 60-89 mL/mi n/1.7 3 m2 for three month s or more, along with kidne y damag e(suc h as persi stent prote in in the urine ), means the perso n has early kidne y disea se. When GFR is <60 for three month s or more, chron ic kidne y disea se(CK D) is prese nt. Not Available [facility] [address] [place], [address], 11/17/2024 00:42:38 11/17/19 25 11/16/2024 CBC-C OMPLE TE WBC 10.6 10^3u L 4.0 - 10.8 Not Available [facility] [address] [place], [address], 11/17/2024 00:36:19 11/17/19 25 11/16/2024 CBC-C OMPLE TE RBC 4.73 10^6u L 3.80 - 5.20 Not Available [facility] [address] [place], [address], 11/17/2024 00:36:19 11/17/19 25 11/16/2024 CBC-C OMPLE TE hemoglobin 12.6 g/dL 11.7 - 16.0 Not Available [facility] [address] [place], [address], 11/17/2024 00:36:19 11/17/19 25 11/16/2024 CBC-C OMPLE TE hematocrit 38.3 % 35.0 - 47.0 Not Available [facility] [address] [place], [address], 11/17/2024 00:36:19 11/17/19 25 11/16/2024 CBC-C OMPLE TE MCV 81 fL 80 - 100 Not Available [facility] [address] [place], [address], 11/17/2024 00:36:19 11/17/19 25 11/16/2024 CBC-C OMPLE TE MCH 27 pg 28 - 33 low Not Available [facility] [address] [place], [address], 11/17/2024 00:36:19 11/17/1911/16/2024 CBC-C OMPLE TE MCHC 33 g/dL 32 - 36 Not Available [facility] [address] [place], [address], 11/17/2024 00:36:19 11/17/1911/16/2024 CBC-C OMPLE TE RDW 14.5 % 11.5 - 15.5 Not Available [facility] [address] [place], [address], 11/17/2024 00:36:19 11/17/1911/16/2024 CBC-C OMPLE TE platelet 254 10^3u L 140 - 440 Not Available [facility] [address] [place], [address], 11/17/2024 00:36:19 11/17/19 25 11/16/2024 CBC-C OMPLE TE MPV 8.0 fL 7.5 - 11.0 Not Available [facility] [address] [place], [address], 11/17/2024 00:36:19 11/17/1911/16/2024 CBC-C OMPLE TE %neutrophils 92.1 % 40.0 - 75.0 high Not Available [facility] [address] [place], [address], 11/17/2024 00:36:19 11/17/1911/16/2024 CBC-C OMPLE TE %lymphocytes 3.9 % 15.0 - 45.0 low Not Available [facility] [address] [place], [address], 11/17/2024 00:36:19 11/17/19 25 11/16/2024 CBC-C OMPLE TE %monocytes 2.8 % 2.0 - 12.0 Not Available [facility] [address] [place], [address], 11/17/2024 00:36:19 11/17/1911/16/2024 CBC-C OMPLE TE %eosinophils 0.5 % 0.0 - 5.0 Not Available [facility] [address] [place], [address], 11/17/2024 00:36:19 11/17/1911/16/2024 CBC-C OMPLE TE %basophils 0.7 % 0.0 - 2.0 Not Available [facility] [address] [place], [address], 11/17/2024 00:36:19 11/17/1911/16/2024 CBC-C OMPLE TE neutrophil 9.7 10^3/ uL 1.7 - 7.0 high Not Available [facility] [address] [place], [address], 11/17/2024 00:36:19 11/17/1911/16/2024 CBC-C OMPLE TE lymphocyte 0.4 10^3/ uL 0.9 - 3.7 low Not Available [facility] [address] [place], [address], 11/17/2024 00:36:19 11/17/1911/16/2024 CBC-C OMPLE TE monocyte 0.3 10^3/ uL 0.2 - 0.8 Not Available [facility] [address] [place], [address], 11/17/2024 00:36:19 11/17/1911/16/2024 CBC-C OMPLE TE eosinophil 0.1 10^3/ uL 0.0 - 0.5 Not Available [facility] [address] [place], [address], 11/17/2024 00:36:19 11/17/1911/16/2024 CBC-C OMPLE TE basophil 0.1 10^3/ uL 0.0 - 0.2 Not Available [facility] [address] [place], [address], 11/17/2024 00:36:19 11/17/19 25 11/16/2024 CBC-C OMPLE TE mdw 20.94 0.00 - 20.00 high {CD] Not Available [facility] [address] [place], [address], 11/17/2024 00:36:19 11/17/19 25 11/16/2024 CBC-C OMPLE TE manual diff NOT INDICA MICHELLE Not Available [facility] [address] [place], [address], 11/17/2024 00:36:19 11/18/1911/20/2024 CULTU RE/UR INE results _CULT URE URINE _ Not Available [facility] [address] [place], [address], 11/20/2024 08:47:48 11/18/1911/20/2024 CULTU RE/UR INE final report CLEAN CATCH SPECIM EN _>100 ,000_ cfu/m l____ ___ 11/20.0 744.N NB. ___ Micro biolo gy Not Available [facility] [address] [place], [address], 11/20/2024 08:47:48 11/18/1911/20/2024 CULTU RE/UR INE results Speci men Sourc e [id number] 0001 Colle ction Date 11/17 Colle ction Time 01:34 Speci men Note: Recei pt Date Exam Id. No: [id number] Exam Statu s Compl etion Date 11/19 Compl etion Time 18:14 Organ ism # 1: Citro bacte r amalo natic us (artis ma) 100 000 cfu/m L Organ ism # 2: Esche scott a coli (escc ol) 100 000 cfu/m L Antib iotic s citam a(1) escco l(2) ESBL Ampic illin Ampic illin /Sulb actam Piper acill in/Ta zobac nj Cefaz antoni Cefta zidim e <=0.5 S Ceftr iaxon e >=64 R Cefep blayne <=0.1 2 S Ertap enem Merop enem Genta micin <=1 S Cipro floxa walter <=0.0 6 S Levof loxac in Nitro furan toin 32 S Trime thopr im/Cole lfame thox <=20 S Cefpo doxim e 2 S Tobra mycin <=1 S S = SUSCE PTIBL E I = INTER MEDIA TE R = RESIS TANT 11/20.0 744.N NB. 11/20.0 747.N NB.CO MPLET E CLEAN CATCH SPECI MEN Not Available [facility] [address] [place], [address], 11/20/2024 08:47:48 11/18/1911/17/2024 URINA LYSIS color ORANGE normal : yellow Not Available [facility] [address] [place], [address], 11/17/2024 03:15:31 11/18/1911/17/2024 URINA LYSIS character HAZY normal : clear DIP INVAL ID DUE TO COLOR INTER FEREN CE MICRO SCOPI C Not Available [facility] [address] [place], [address], 11/17/2024 03:15:31 11/18/1911/17/2024 URINA LYSIS WBC/hpf TNTC normal : 0-5 hpf CULTU RE TO FOLLO W PER [place] Not Available [facility] [address] [place], [address], 11/17/2024 03:15:31 11/18/19 25 11/17/2024 URINA LYSIS RBC/hpf 3-5 normal : 0-3 hpf Not Available [facility] [address] [place], [address], 11/17/2024 03:15:31 11/18/19 25 11/17/2024 URINA LYSIS epith/hpf 20-30 normal : 0-5 hpf Not Available [facility] [address] [place], [address], 11/17/2024 03:15:31 11/18/19 25 11/17/2024 URINA LYSIS cast/lpf NONE SEEN normal : 0-4 lpf Not Available [facility] [address] [place], [address], 11/17/2024 03:15:31 11/18/19 25 11/17/2024 URINA LYSIS crystals NONE SEEN normal : negati ve Not Available [facility] [address] [place], [address], 11/17/2024 03:15:31 11/18/19 25 11/17/2024 URINA LYSIS bacteria 2+ normal : negati ve abnormal Not Available [facility] [address] [place], [address], 11/17/2024 03:15:31 11/18/19 25 11/17/2024 URINA LYSIS mucus 1+ Not Available [facility]uling [address] [place], [address], 11/17/2024 03:15:31 11/18/19 25 11/17/2024 RESP. CEPHE ID COV/F HOMA/RS V covid-19 PCR cepheid NEGATI VE _ normal : not detect ed Not Available [facility]uling [address] [place], [address], 11/17/2024 01:01:28 11/18/19 25 11/17/2024 RESP. CEPHE ID COV/F HOMA/RS V flu A PCR-cepheid NEGATI VE normal : negati ve Not Available [facility] [address] [place], [address], 11/17/2024 01:01:28 11/18/19 25 11/17/2024 RESP. CEPHE ID COV/F HOMA/RS V flu B PCR-cepheid NEGATI VE normal : negati ve Not Available [facility] [address] [place], [address], 11/17/2024 01:01:28 11/18/19 25 11/17/2024 RESP. CEPHE ID COV/F HOMA/RS V RSV PCR-cepheid NEGATI VE normal : negati ve This testi ng was perfo rmed using the XPERT XPRES S SARS- CoV-2 real time RT-PC R. This testi ng has been autho rized by FDA under an Emerg ency Use Autho rizat ion (EUA) . Not Available [facility] [address] [place], [address], 11/17/2024 01:01:28 08/05/20 24 08/04/2024 [facility] l[facility] [address] [facility] [place] [address] EXAMIN ATION: MRI lumbar spine withou t contra st. TECHNI QUE: Sagitt al T1, T2, and STIR images , and axial T1 and T2 images of the lumbar spine were obtain ed. INDICA TION: Back pain radiat ing down left leg COMPAR MANPREET: MRI lumbar spine 020 FINDIN GS: There are 5 lumbar type verteb ral bodies design ated as L1 throug h L5; using this number ing system , the conus medull brittney termin ates at L1 and appear s unrema rkable . The lumbar verteb ral alignm ent is preser elva. The verteb ral body height s and marrow signal are unrema rkable . Facet alignm ent is preser elva. No abnorm al prever tebral or parasp inal soft tissue swelli ng. Mack ioma at L4. T10-11 : There is no signif icant spinal canal or neural forami nal stenos is. T11-12 : No signif icant spinal canal stenos is. Facet joint hypert rophy. Mild bilate ral neural forami nal stenos is. T12-L1 : No signif icant spinal canal or neural forami nal stenos is. L1-L2: No signif icant spinal canal or neural forami nal stenos is. L2-L3: No signif icant spinal canal or neural forami nal stenos is. L3-L4: No signif icant spinal canal stenos is. Mild/m oderat e facet hypert rophy. Mild bilate ral neural forami nal stenos is. L4-L5: No signif icant spinal canal stenos is. Modera te facet hypert rophy. Modera te left neural forami nal stenos is. Modera te to severe right neural forami nal stenos is. L5-S1: Disc bulge impres sing the ventra l thecal sac. Mild spinal canal stenos is. Mild to modera te facet hypert rophy. Modera te to severe left neural forami nal stenos is. Mild to modera te right neural forami nal stenos is. IMPRES KHALIDA: Mild multil evel lumbar spondy losis, as descri bed above. The attend ing radiol ogist has review ed the image( s) and agrees with the conten t of this report . Ordere d By: JAH Ryan [facility] onical ly Signed By: Ismael Rodriguez MD on 2023 4:45 PM Interp reted By: Titus Clarke MD, 2023 12:08 PM [email or web address] Ia Only - [facility] [address] [place], [address], 08/07/2024 20:53:33 08/07/2008/04/2024 MRI, thora cic spine , w/o contr ast [facility] [address] [facility] [place] [address] EXAMIN ATION: MRI of the thorac ic spine withou t contra st 2023 INDICA TION:B ilater al upper extrem ity weakne ss TECHNI QUE: Multip lanar multis equenc e MR imagin g of the thorac ic spine was perfor med withou t intrav enous contra st. COMPAR MANPREET: Chest CT 04/21/20 23 FINDIN GS:The re is exagge ration of the normal thorac ic kyphos is with preser vation of verteb ral body height s and disc spaces . Bone marrow signal is within normal limits with no acute fractu re or disloc ation. No ligame ntous discon tinuit y or signal abnorm ality The thorac ic spinal cord is unrema rkable in course calibe r contou r. Puncta te focus of increa sed T2 signal within the centra l spinal cord at this T5 level. There is slight anteri or displa cement of the spinal cord within the thecal sac at the T5/T6 level. No parasp inal mass or fluid collec tion. The thorac ic spinal cord is unrema rkable in contou r. No signif icant thorac ic discog enic diseas e. No signif icant thorac ic centra l canal or neural forami nal stenos is IMPRES KHALIDA: 1. No signif icant thorac ic discog enic diseas e or spinal canal stenos is. 2. Slight anteri or displa cement of the spinal cord within the thecal sac at T5/T6 may be relate d to the exagge rated thorac ic kyphos is versus an arachn oid web. 3. Nonspe cific puncta te focus of increa sed T2 signal within the centra l spinal cord at T5 may be due to artifa ct. A tiny focus of myelom alacia or syring ohydro myelia cannot be exclud ed. 4. No acute osseou s abnorm ality or ligame ntous injury . Referr ed By: JAH Ryan Electr onical ly Signed By: Pipe Rizzo MD on 2023 9:47 AM Interp reted By: Pipe Rizzo MD, 2023 9:39 AM Ia Only - [facility] [address] [place], [address], 08/07/2024 20:53:34 08/07/20 24 08/04/2024 MRI, cervi radha spine , w/o contr ast [facility] [address] [facility] [place] [id number] EXAMIN ATION: Cervic al spine MRI withou t contra st 2023 INDICA TION: Cervic al radicu lopath y, bilate ral upper extrem ity weakne ss TECHNI QUE: Multip lanar multis equenc e or imagin g of the cervic al spine was perfor med withou t intrav enous contra st. COMPAR MANPREET: Cervic al spine MRI 020 FINDIN GS:Cer vical spine is in anatom ic alignm ent with preser vation of verteb ral body height s and disc spaces . Bone marrow signal is within normal limits with no acute fractu re or disloc ation. No ligame ntous discon tinuit y or signal abnorm ality Partia lly visual ized intrac ranial conten ts are unrema rkable . The cervic al spinal cord is unrema rkable in course calibe r contou r and signal . No prever tebral edema. No parasp inal mass or fluid collec tion No stenos is at the forame n magnum or C1/C2 level C2/C3: Negati ve C3/C4: Negati ve C4/C5: Negati ve C5/C6: Midlin e disc extrus ion causin g mild to modera te centra l canal stenos is within the contac t of the ventra l cord. The thecal sac measur es 7 mm in AP dimens ion. The disc extrus ion measur es 5 x 3 x 4 mm. C6/C7: Small midlin e disc protru khalida causin g slight efface ment of ventra l thecal sac C7/T1: Negati ve. IMPRES KHALIDA: 1. Small midlin e disc extrus ion at C5/C6 causin g mild to modera te centra l canal stenos is with contac t of the ventra l cord. The thecal sac measur es 7 mm. No cord signal abnorm ality. 2. Small disc protru khalida at C6/C7 causin g minima l efface ment of the ventra l thecal sac 3. No acute osseou s abnorm ality. Referr ed By: JAH Ryan Electr onical ly Signed By: Pipe Rizzo MD on 2023 9:56 AM Interp reted By: Pipe Rizzo MD, 2023 9:52 AM [email or web address] Ia Only - [facility] [address] [facility], [place], [address], 08/07/2024 20:53:34 09/12/20 24 09/01/2024 CT cyst [facility]ion [facility] [address] [place] [address] [phone] Name: TL WHITE Age: 53 : 1970 Exam Date: 2023 ACCESS ION: [id number] BLAISE CALDERA MD: STACEY JEFFREY EXAMIN ATION: CT guided aspira tion of a thorac ic arachn oid cyst. DATE: Decemb er 2023 HISTOR Y: Arm pain, longst anding arachn oid cyst TECHNI QUE: The risks and benefi ts of arachn oid cyst drain were descri bed to the patien t and explic it permis khalida was obtain ed to kimani Villalba l steril e carole r techni que was utiliz ed includ ing the use of a large steril e sheet, the wearin g of caps and masks by all partic ipants , the wearin g of steril e gowns and gloves as well as strict hand hygien e by the physic sydnie and scrub assist ant. A time out review of the patien t's medica l histor y and the aims and risks of the proced ure was perfor med prior to beginn ing the proced ure. The skin overly ing mid thorac ic spine was carefu lly scrubb ed and anesth etized with 1% lidoca ine. Under CT guidan ce and with CT docume ntatio n an 18-gau ge needle is advanc ed in the arachn oid cyst utiliz ing a interl aminar approa ch at the T6 level. . Small contra st inject ion demons trates outlin ing of the cyst as well as some of the thecal sac. 10 mL of clear, colorl ess fluid is withdr awn, effect ively removi ng the contra st was inject ed. The patien t tolera michelle the proced ure well Compli cation s: None Contra st dose: -No Value- DLP in mGy-cm : 1191 Modera te sedati on protoc ol was utiliz ed. Sedati on meds: 4mg versed Sedati on meds 2: 1.5mg dilaud id Perfor med with the assist ance of an indepd endent , traine d nurse. Sedati on start time: Sedati on start time: 1338 Sedati on stop time: Sedati on stop time: 1355 Total sedati on time: 17 minute s IMPRES KHALIDA: CT guided T5-T7 arachn oid cyst aspira tion. Attest ation I, Aashish Flores MD, attest that I was presen t for the entire proced ure. Final Report Dictat ed: 14:48 Aashish Flores MD Signed : 14:48 Mark FREEDMAN, [facility] Rad [address] [place] [address], [address], 09/13/2024 13:04:07 09/23/19 25 09/01/2024 [facility] [address] [place] [address] Name: TL WHITE Age: 54 : 1970 Exam Date: 2023 ACCESS ION: [id number] BLAISE CALDERA MD: STACEY JEFFREY EXAMIN ATION: CT guided aspira tion of a thorac ic arachn oid cyst. DATE: Decemb er 2023 HISTOR Y: Arm pain, longst anding arachn oid cyst TECHNI QUE: The risks and benefi ts of arachn oid cyst drain were descri bed to the patien t and explic it permis khalida was obtain ed to kiamni Villalba l steril e carole r techni que was utiliz ed includ ing the use of a large steril e sheet, the wearin g of caps and masks by all partic ipants , the wearin g of steril e gowns and gloves as well as strict hand hygien e by the physic sydnie and scrub assist ant. A time out review of the patien t's medica l histor y and the aims and risks of the proced ure was perfor med prior to beginn ing the proced ure. The skin overly ing mid thorac ic spine was carefu lly scrubb ed and anesth etized with 1% lidoca ine. Under CT guidan ce and with CT docume ntatio n an 18-gau ge needle is advanc ed in the arachn oid cyst utiliz ing a interl aminar approa ch at the T6 level. . Small contra st inject ion demons trates outlin ing of the cyst as well as some of the thecal sac. 10 mL of clear, colorl ess fluid is withdr awn, effect ively removi ng the contra st was inject ed. The patien t tolera michelle the proced ure well Compli cation s: None Contra st dose: -No Value- DLP in mGy-cm : 1191 Modera te sedati on protoc ol was utiliz ed. Sedati on meds: 4mg versed Sedati on meds 2: 1.5mg dilaud id Perfor med with the assist ance of an indepd endent , traine d nurse. Sedati on start time: Sedati on start time: 1338 Sedati on stop time: Sedati on stop time: 1355 Total sedati on time: 17 minute s IMPRES KHALIDA: CT guided T5-T7 arachn oid cyst aspira tion. Attest ation I, Aashish Flores MD, attest that I was presen t for the entire proced ure. Final Report Dictat ed: 14:48 Aashish Flores MD Signed : 14:48 Aashish Flores MD ADDEND UM ACCESS ION: [id number] BLAISE CALDERA MD: STACEY JEFFREY This report can be found on access ion #[id number] due to an incorr ect ordera ble. Prelim inary Report Dictat ed: 12:25 Mark FREEDMAN, Aashish mendieta [facility] Rad [address] [place] [address], [id number], 09/23/2024 15:15:23 10/14/19 25 10/14/2024 CT, abdom en + pelvi s, w/ contr ast No observ ation record ed. [address] - Radiology [address] [place], [address], 11/15/2024 12:25:18 12/02/19 25 12/01/2024 XR, chest , 2 view No observ ation record ed. [facility] Radiology Scheduling [address] [place], [address], 12/02/2024 09:46:46 12/06/19 25 09/01/2024 CT, conor nce [facility] [address] [place] [address] Name: TL WHITE Age: 54 : 1970 Exam Date: 2023 ACCESS ION: [id number] BLAISE CALDERA MD: STACEY JEFFREY EXAMIN ATION: CT guided aspira tion of a thorac ic arachn oid cyst. DATE: Decemb er 2023 HISTOR Y: Arm pain, longst anding arachn oid cyst TECHNI QUE: The risks and benefi ts of arachn oid cyst drain were descri bed to the patien t and explic it permis khalida was obtain ed to kimani slater steril e carole adrian techni que was utiliz ed includ ing the use of a large steril e sheet, the wearin g of caps and masks by all partic ipants , the wearin g of steril e gowns and gloves as well as strict hand hygien e by the physic sydnie and scrub assist ant. A time out review of the patien t's medica l histor y and the aims and risks of the proced ure was perfor med prior to beginn ing the proced ure. The skin overly ing mid thorac ic spine was carefu lly scrubb ed and anesth etized with 1% lidoca ine. Under CT guidan ce and with CT docume ntatio n an 18-gau ge needle is advanc ed in the arachn oid cyst utiliz ing a interl aminar approa ch at the T6 level. . Small contra st inject ion demons trates outlin ing of the cyst as well as some of the thecal sac. 10 mL of clear, colorl ess fluid is withdr awn, effect ively removi ng the contra st was inject ed. The patien t tolera michelle the proced ure well Compli cation s: None Contra st dose: -No Value- DLP in mGy-cm : 1191 Modera te sedati on protoc ol was utiliz ed. Sedati on meds: 4mg versed Sedati on meds 2: 1.5mg dilaud id Perfor med with the assist ance of an indepd billy , traine d nurse. Sedati on start time: Sedati on start time: 1338 Sedati on stop time: Sedati on stop time: 1355 Total sedati on time: 17 minute s IMPRES KHALIDA: CT guided T5-T7 arachn oid cyst aspira tion. Attest ation I, Aashish Flores MD, attest that I was presen t for the entire proced ure. Final Report Dictat ed: 14:38 Aashish Flores MD Signed : 10:48 Mark FREEDMAN, Aashish [facility]os[facility]atchivi [facility] Only - [facility] Rad [address] [place] [address], [address], 12/05/2024 13:59:24 12/06/19 25 09/01/2024 [facility] [address] [place] [facility] [address] Name: TL WHITE Age: 54 : 1970 Exam Date: 2023 ACCESS ION: [id number] BLAISE CALDERA MD: STACEY JEFFREY EXAMIN ATION: CT guided aspira tion of a thorac ic arachn oid cyst. DATE: Decemb er 2023 HISTOR Y: Arm pain, longst anding arachn oid cyst TECHNI QUE: The risks and benefi ts of arachn oid cyst drain were descri bed to the patien t and explic it permis khalida was obtain ed to kimani Villalba l steril e carole r techni que was utiliz ed includ ing the use of a large steril e sheet, the wearin g of caps and masks by all partic ipants , the wearin g of steril e gowns and gloves as well as strict hand hygien e by the physic sydnie and scrub assist ant. A time out review of the patien t's medica l histor y and the aims and risks of the proced ure was perfor med prior to beginn ing the proced ure. The skin overly ing mid thorac ic spine was carefu lly scrubb ed and anesth etized with 1% lidoca ine. Under CT guidan ce and with CT docume ntatio n an 18-gau ge needle is advanc ed in the arachn oid cyst utiliz ing a interl aminar approa ch at the T6 level. . Small contra st inject ion demons trates outlin ing of the cyst as well as some of the thecal sac. 10 mL of clear, colorl ess fluid is withdr awn, effect ively removi ng the contra st was inject ed. The patien t tolera michelle the proced ure well Compli cation s: None Contra st dose: -No Value- DLP in mGy-cm : 1191 Modera te sedati on protoc ol was utiliz ed. Sedati on meds: 4mg versed Sedati on meds 2: 1.5mg dilaud id Perfor med with the assist ance of an indepd endent , traine d nurse. Sedati on start time: Sedati on start time: 1338 Sedati on stop time: Sedati on stop time: 1355 Total sedati on time: 17 minute s IMPRES KHALIDA: CT guided T5-T7 arachn oid cyst aspira tion. Attest ation I, Aashish Folres MD, attest that I was presen t for the entire proced ure. Final Report Dictat ed: 14:48 Aashish Flores MD Signed : 14:48 Aashish Flores MD ADDEND UM ACCESS ION: [id number] BLAISE CALDERA MD: STACEY JEFFREY This report can be found on access ion #[id number] due to an incorr ect ordera ble. Final Report Dictat ed: 12:25 Aashish Flores MD Signed : 10:48 Aashish Flores MDposatchivi [facility] Rad [address] [place] [address], [address], 12/05/2024 13:59:25 12/12/19 25 12/11/2024 XR, knee [facility] Hospit al [address] [place] [address] Name: TL WHITE Age: 54 : 1970 Exam Date: 2024 ACCESS ION: [id number] BLAISE CALDERA MD: DILIA POTTS EXAMIN ATION: Knee Right Routin e HISTOR Y: Patien t presen ts to the ED after a ground level fall with left should er and right knee pain. Patiangelina t states histor y of 2 knee surger ies in 2012 and 2013. COMPAR MANPREET: Right knee 2020 FINDIN GS: Right knee, two-vi ews: There is mild tricom partme ntal osteoa rthrit is in the right knee with joint space narrow ing, increa sed from previo us exam. No fractu re, sublux ation, or disloc ation in the right knee. No knee joint effusi on. Normal bone minera lizati on. The soft tissue s appear normal . IMPRES KHALIDA: 1. There is no fractu re, sublux ation, or disloc ation in the right knee. 2. Mild tricom partme ntal osteoa rthrit is in the right knee. 3. No knee joint effusi on. This report was dictat ed remote ly by a [facility] Radiol ogist in [place], [place]. Final Report Dictat ed: 07:59 Anjel Smith MD Signed : 07:59 Luis FREEDMAN, Anjel Arvizu INTERFACE [facility] Only - [facility] Rad [address] [place] [address], [address], 12/11/2024 09:03:06 12/12/19 25 12/11/2024 XR, shoul [facility] [address] [place] [address] [phone] Name: TL WHITE Age: 54 : 1970 Exam Date: 2024 ACCESS ION: [id number] ORDERI WERNER FREEDMAN: DILIA POTTS EXAMIN ATION: Should er Lt Routin e HISTOR Y: Patien t presen ts to the ED after a ground level fall with left should er and right knee pain. Patien t states a few months of pain to left should er prior to fall. TECHNI QUE: AP, Grashe y, transc apular Y views of the should er obtain ed COMPAR MANPREET: None FINDIN GS: No obviou s acute fractu re.Lef t should er degene rative change s.Calc ificat ion noted at the superi or rotato r cuff. Possib ly relate d to a small loose body or hetero topic calcif icatio n. IMPRES KHALIDA: No acute fractu re seen. Left should er degene rative change s noted. Unchan ged since plain film from 2023. Final Report Dictat ed: 07:59 Preuse Antoni ryan MD Signed : 07:59 Preuse connor FREEDMAN, Antoni EGAN [facility] Rad [address] [place] [address], [address], 12/11/2024 09:03:14 Result Notes None recorded. Problems Name Problem SNOMED Code Status Onset Date Resolution Date Notes Provider Name and Address Organization Details Recorded Time Migraine 80499670 Active 2020 Yolande [facility] 4 17:00:48 Hypertens jozef disorder 19579408 Active 2020 [facility] 4 17:00:48 Atypical squamous cells of undetermi tiffanie significa nce on cervical Papanicol aou smear 679509139 Active 2020 Yolandeher Riley [facility] 4 17:00:48 Preinfarc tion syndrome 1144497 Active 2022 [facility] 4 17:00:48 Second degree uterine prolapse 5582935 Active 2022 [facility] 4 17:00:48 Abdominal pain 34462953 Active 2023 Eren Oswald PA-C [address] [place] [address], [phone] , [facility] 4 13:05:40 Thoracic radiculop athy 01064571 Active 2023 Kimi Mathis APRN, IGNITION EXPERT [address] [place] [address], [phone] , [facility] 4 14:46:37 Cervical radiculop athy 96522029 Active 2023 Kimi Mathis APRN, IGNITION EXPERT [address] [place] [address], [address] , [facility] 4 14:46:47 Lumbar spondylos is 048464471 Active 2023 Pauly Vizcaino MD [address] [place] [address], [address] , [facility] 5 14:49:06 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 19135688073 9106 Active 2023 following with endocrino maggy Vizcaino MD [address] [place] [address], [address] , [facility] 5 14:52:00 Spinal arachnoid cyst 319588784 Active 2023 Pauly Vizcaino MD [address] [place] [address], [address] , [facility] 5 14:51:11 Morbid obesity 572043220 Active 2024 Pauly Vizcaino MD [address] [place] [address], [address] , [facility] 5 14:50:22 Gastropar esis syndrome 179866119 Active 2024 Pauly Vizcaino MD [address] [place] [address], [address] , [facility] 5 14:53:47 Gastroeso phageal reflux disease 413558464 Active 2024 Pauly Vizcaino MD [address] [place] [address], [address] , [facility] 5 14:53:56 Dyspnea 923592889 Active 2024 Pauly Vizcaino MD [address] [place] [address], [address] , [facility] 5 15:02:35 Pain of left shoulder region Active 2024 Pauly Vizcaino MD [address] [place] [address], [address] , [facility] 5 15:11:16 Bilateral cramp of muscle of lower limbs 16119132312 776074 Active 2024 Pauly Vizcaino MD [address] [place] [address], [address] , [facility] 5 15:12:21 Fibromyal chuck 505773210 Active 2024 Pauly Vizcaino MD [address] [place] [address], [address] , [facility] 5 15:19:57 Recurrent major depressio n in remission 76890626 Active 2024 Pauly Vizcaino MD [address] [place] [address], [address] , [facility] 5 15:24:34 Primary insomnia 2656438 Active 2024 Pauly Vizcaino MD [facility] [address] [place] [address], [address] , [facility] 5 15:25:40 Swelling of lower limb 690399275 Active 2024 Pauly Vizcaino MD [address] [place] [address], [address] , [facility] 5 16:16:03 Coronary arteriosc lerosis 45724508 Active 2023 [facility] 4 16:47:20 Chest pain 72764308 Active 2022 Yolandeher Riley [facility] 4 17:00:48 Essential hypertens ion 89545650 Active 2023 [place] Celest[facility] 4 16:47:35 Hyperchol esterolem ia 35501488 Active 2023 [facility] 4 16:47:54 Notes:Some problems listed i n Document: #[id number] could not be added to this patient's chart. Please review this document and add these problems to the patient's chart manually as needed. Problem Notes None recorded. Procedures Surgical History Date Name Laterality Status Provider Name and Address Organization Details Recorded Time 04/14/20 23 Date of Last Mammogram completed Not Available Health Note 10/18/2024 15:19:30 09/18/19 23 Date of Last Pap Smear completed Not Available Health Note 10/18/2024 15:19:30 Appendectomy completed Not Available Health Note 06/13/2024 15:08:02 Removal of gallbladder completed Not Available Health Note 06/13/2024 15:08:02 Imaging Results Imaging Date Name Status LastModified by Organiz ation Details LastModified Time 08/04/2024 MRI, lumbar spine, w/o contrast completed [id number] [facility] Only - [facility] Rad [address] [place], [address], 08/07/2024 20:53:33 08/04/2024 MRI, thoracic spine, w/o contrast completed [email or web address] [facility] Only - [facility] Rad [address] [place], [address], 08/07/2024 20:53:34 08/04/2024 MRI, cervical spine, w/o contrast completed [email or web address] Sc Only - [facility] Rad [address] [place], [address], 08/07/2024 20:53:34 09/01/2024 CT cyst aspiration completed lacakposatchivi [facility] Only - [facility] Rad [address] [place] [address], [address], 09/13/2024 13:04:07 09/01/2024 CT cyst aspiration completed lacakposatchivi [facility] Only - [facility] Rad [address] [place] [address], [address], 09/23/2024 15:15:23 10/14/2024 CT, abdomen + pelvis, w/ contrast completed [address] - Radiology [address] [place], [address], 11/15/2024 12:25:18 12/01/2024 XR, chest, 2 view completed [facility] Radiology Scheduling [address] [place], [address], 12/02/2024 09:46:46 09/01/2024 CT, guidance completed lacakposatchivi [facility] Only - [facility] Rad [address] [place] [address], [address], 12/05/2024 13:59:24 09/01/2024 CT cyst aspiration completed lacakposatchivi [facility] Only - [facility] Rad [address] [place] [address], [address], 12/05/2024 13:59:25 12/11/2024 XR, knee completed INTERFACE [facility] Only - [facility] Rad [address] [place] [address], [address], 12/11/2024 09:03:06 12/11/2024 XR, shoulder completed INTERFACE Sc Only - [facility] Rad [address] [place] [address], [address], 12/11/2024 09:03:14 Procedure Notes None recorded. Medical Equipment None Reported. Allergies Allergen ID Allergen Name Allergen Category Reaction Reaction Severity Criticality Documentation Date Start Date Code Code System Note Provider Name and Address Organization Details Recorded Time 1866262 fentanyl medicatio n headache Not available Not available 10/14/20232012 4337 RxNorm React ion: Heada syeda; Nause a; Vomit ing; Comme nt: React ion Date: 23 Aug 2013 Annot ation s: PRARADHA ER, JUVENCIO 10Dec 2012 9:08P M Per pt repor t.; ; Not Available Not Available Not Available 2123716 prochlorp erazine medicatio n Not available Not available Not available 05/13/20242017 8704 RxNorm Other react ions and sever ities : 'Anxi ety'. Not Available Not Available Not Available 5259529 sumatript an medicatio n itching Not available Not available 05/13/20242017 01856 RxNorm Not Available Not Available Not Available 0828284 metoclopr amide Not available other Not available Not available 05/13/20242022 6915 RxNorm Not Available Not Available Not Available 1221639 diphenhyd ramine hydrochlo ride medicatio n rash Not available Not available 05/13/20242017 1362 RxNorm Other react ions and sever ities : 'Anxi ety'. Not Available Not Available Not Available 7499634 Duragesic medicatio n headache Not available Not available 06/22/20242012 65759 8 RxNorm React ion: Heada syeda; Nause a; Vomit ing; Comme nt: React ion Date: 23 Aug 2013 Annot ation s: JUVENCIO SIEGEL 2012 9:08P M Per pt repor t.; ; Not Available Not Available Not Available 1150066 Compazine medicatio n other Not available Not available 11/02/202406218 6 RxNorm irrit abili ty Not Available Not Available Not Available 356781 Biaxin medicatio n nausea Not available Not available 10/12/20232006 90766 9 RxNorm React ion: Nause a; Not Available Not Available Not Available 397080 sumatript an succinate medicatio n Not available Not available Not available 10/12/20232006 04393 RxNorm React ion: Short ness of breat h; Arrhy thmia ; Not Available Not Available Not Available 524705 ciproflox acin hydrochlo ride medicatio n Not available Not available Not available 10/12/20232006 16050 RxNorm React ion: Synco pe; Short ness of breat h; Not Available Not Available Not Available 125500 Demerol medicatio n Not available Not available Not available 10/12/20232008 16401 1 RxNorm Comme nt: Annot ation s: GRUND Y, BRAND ON 2008 3:38P M NAUSE A; ; Not Available Not Available Not Available 691535 morphine sulfate medicatio n Not available Not available Not available 10/12/20232008 32226 RxNorm Comme nt: Annot ation s: GRUND Y, BRAND ON 2008 3:39P M NAUSE A; ; Not Available Not Available Not Available 733137 hydromorp basim hydrochlo ride medicatio n Not available Not available Not available 10/12/20232008 58645 7 RxNorm Comme nt: Annot ation s: GRUND Y, BRAND ON 2008 3:39P M NAUSE A; ; Not Available Not Available Not Available Medications Name Sig Start Date Stop Date Status Note LastModified by Organization Details LastModified Time new customer packet NEW CUSTOMER PACKET 11/02 completed Not Available Not Available Not Available cyclobenzap rine 10 mg tablet TAKE ONE TABLET THREE TIMES DAILY NEEDED 11/02 completed Not Available Not Available Not Available fluconazole 100 mg tablet TAKE ONE TABLET ONCE 06/15 completed Not Available Not Available Not Available atorvastati n 40 mg tablet TAKE ONE TABLET BY MOUTH EVERY DAY 2024 active Not Available Not Available Not Avai lable doxepin 50 mg capsule TAKE ONE CAPSULE AT BEDTIME 12/01 completed Not Available Not Available Not Available citalopram 40 mg tablet TAKE ONE TABLET BY MOUTH DAILY active Not Available Not Available No t Available tizanidine 4 mg tablet TAKE ONE TABLET BY MOUTH EVERY 6 HOURS NEEDED FOR ANXIETY active Not Available Not Available No t Available fluconazole 150 mg tablet TAKE ONE TABLET BY MOUTH DIRECTED (take 72 hours after initial dose if still having symptoms) 11/02 completed Not Available Not Available Not Available metoprolol succinate ER 50 mg tablet,exte nded release 24 hr TAKE ONE TABLET BY MOUTH DAILY active Not Available Not Available No t Available valacyclovi r 1 gram tablet TAKE ONE TABLET BY MOUTH EVERY 8 HOURS 06/15 completed Not Available Not Available Not Available hydrocodone 5 mg-acetamin ophen 325 mg tablet TAKE ONE TABLET BY MOUTH TWICE DAILY NEEDED 12/01 completed Not Available Not Available Not Available sucralfate 1 gram tablet TAKE ONE TABLET BY MOUTH FOUR TIMES DAILY before meals and nightly 06/15 completed Not Available Not Available Not Available metoprolol succinate ER 200 mg tablet,exte nded release 24 hr TAKE ONE TABLET BY MOUTH DAILY 05/17 completed Not Available Not Available Not Available ondansetron HCl 4 mg tablet TAKE ONE TABLET THREE TIMES DAILY 12/01 completed Not Available Not Available Not Available metoprolol succinate ER 100 mg tablet,exte nded release 24 hr 200 mg by oral route. 05/09 completed Not Available Not Available Not Available doxepin 75 mg capsule TAKE ONE CAPSULE BY MOUTH DAILY active Not Available Not Available No t Available Lantus U-100 Insulin 100 unit/mL subcutaneou s solution inject 80 units in the evening 11/02 completed Not Available Not Available Not Available promethazin e 6.25 mg-codeine 10 mg/5 mL syrup take 5mL every 4-6 hours as needed for cough 06/15 completed Not Available Not Available Not Available clopidogrel 75 mg tablet TAKE ONE TABLET BY MOUTH DAILY 06/21 completed Not Available Not Available Not Available ciprofloxac in 250 mg tablet TAKE ONE TABLET BY MOUTH TWICE DAILY FOR FIVE DAYS 12/01 completed Not Available Not Available Not Available amlodipine 5 mg tablet TAKE ONE TABLET BY MOUTH EVERY DAY 2024 active Not Available Not Available Not Avai lable sulfamethox azole 800 mg-trimetho prim 160 mg tablet TAKE ONE TABLET BY MOUTH TWICE DAILY UNTIL GONE 11/02 completed Not Available Not Available Not Available aspirin 81 mg tablet,timoteo yed release Take 1 tablet every day by oral route. 11/02 completed Not Available Not Available Not Available amitriptyli ne 50 mg tablet TAKE TWO TABLETS AT BEDTIME 11/02 completed Not Available Not Available Not Available isosorbide mononitrate ER 60 mg tablet,exte nded release 24 hr TAKE ONE TABLET DAILY 06/21 completed Not Available Not Available Not Available alprazolam 0.5 mg tablet TAKE ONE TABLET TWICE DAILY NEEDED FOR ANXIETY 11/02 completed Not Available Not Available Not Available citalopram 20 mg tablet take 1 tablet daily with 40mg to equal 60mg daily 06/15 completed Not Available Not Available Not Available dicyclomine 20 mg tablet TAKE ONE TABLET BY MOUTH TWICE DAILY 2024 active Not Available Not Available Not Avai lable Humalog U-100 Insulin 100 unit/mL subcutaneou s solution infuse up to 150 units per day via insulin pump active Not Available Not Available No t Available cephalexin 500 mg capsule TAKE ONE CAPSULE TWICE DAILY UNTIL GONE 12/01 completed Not Available Not Available Not Available pantoprazol e 40 mg tablet,timoteo yed release TAKE ONE TABLET BY MOUTH DAILY 2024 active Not Available Not Available Not Avai lable lidocaine 5 % topical patch place 1 patch onto the skin daily for 30 days. remove and discard patch within 12 hours or as directed by md active Not Available Not Available No t Available albuterol sulfate HFA 90 mcg/actuati on aerosol inhaler INHALE TWO PUFFS EVERY 4 TO 6 HOURS NEEDED for shortness of breath active Not Available Not Available No t Available norethindro ne (contracept jozef) 0.35 mg tablet TAKE ONE TABLET DAILY 06/15 completed Not Available Not Available Not Available ondansetron 4 mg disintegrat ing tablet dissolve 1 tablet on the tongue every 6-8 hours as needed for nausea active Not Available Not Available No t Available cefdinir 300 mg capsule TAKE ONE CAPSULE TWICE DAILY UNTIL GONE 11/02 completed Not Available Not Available Not Available fluticasone propionate 50 mcg/actuati on nasal spray,suspe nsion use 1 spray in each nostril twice a day 06/15 completed Not Available Not Available Not Available diazepam 5 mg tablet take 1 tablet by mouth 30 minutes prior to mri as needed, as directed 11/02 completed Not Available Not Available Not Available amoxicillin 875 mg-potassiu m clavulanate 125 mg tablet TAKE ONE TABLET TWICE DAILY 06/15 completed Not Available Not Available Not Available Novolog FlexPen U-100 Insulin aspart 100 unit/mL (3 mL) subcutaneou s 3 times a day by sub-q route. 05/09 completed Not Available Not Available Not Available nitrofurant oin monohydrate /macrocryst als 100 mg capsule TAKE ONE TABLET BY MOUTH TWICE DAILY UNTIL GONE 06/15 completed Not Available Not Available Not Available ranolazine ER 500 mg tablet,exte nded release,12 hr TAKE ONE TABLET TWICE DAILY 06/15 completed Not Available Not Available Not Available Lantus Solostar U-100 Insulin 100 unit/mL (3 mL) subcutaneou s pen Inject 80 units by sub-q route. 06/15 completed Not Available Not Available Not Available Humalog KwikPen (U-100) Insulin 100 unit/mL subcutaneou s Inject 3 times a day by sub-q route. 09/15 completed Not Available Not Available Not Available sodium,pota ssium,mag sulfates 17.5 gram-3.13 gram-1.6 gram oral soln Take 354 mL by oral route as directed for 1 day. active Not Available Not Available No t Available TRUEplus Insulin 1 mL 31 gauge x 5/16 syringe use with insulin up to four times daily and as needed as directed 06/15 completed Not Available Not Available Not Available Aimovig Autoinjecto r 140 mg/mL subcutaneou s auto-inject or 140 mg by sub-q route. 05/09 completed Not Available Not Available Not Available Ubrelvy 100 mg tablet 05/09 completed Not Available Not Available Not Available Dexcom G7 General Dentist/Owner USE PER MANUFACTU RER DIRECTION S active Not Available Not Available No t Available Dexcom G7 Sensor device CHANGE SENSOR EVERY 10 DAYS PER MANUFACTU RER active Not Available Not Available No t Available Omnipod 5 G6-G7 Pods (Gen 5) subcutaneou s cartridge change pod every 2 days active Not Available Not Available No t Available Vitals Date Recorded Body height Body mass index (BMI) Body weight Heart rate Oxygen saturation Oxygen saturation in Arterial blood by Pulse oximetry Systolic blood pressure Diastolic blood pressure Provider Name and Address Organization Details Last Updated DateTime 4 170.18 cm 44.3 kg/m2 423083. 64 g 67 /min 97 % 97 % 110 mm[Hg] 60 mm[Hg] Tana Josesitodaniel [facility] 4 12:24:18 Date Recorded Body height Body mass index (BMI) Body weight Body temperature Respiratory rate Oxygen saturation Oxygen saturation in Arterial blood by Pulse oximetry Heart rate Systolic blood pressure Diastolic blood pressure Provider Name and Address Organization Details Last Updated DateTime 5 170.18 cm 44.4 kg/m2 057193. 8 g 97.5 [degF] 20 /min 97 % 97 % 67 /min 128 mm[Hg] 70 mm[Hg] Brenda Natarajan [facility] 5 14:45:55 Date Recorded Body height Body mass index (BMI) Body weight Body temperature Respiratory rate Oxygen saturation Oxygen saturation in Arterial blood by Pulse oximetry Heart rate Systolic blood pressure Diastolic blood pressure Provider Name and Address Organization Details Last Updated DateTime 5 170.18 cm 44.4 kg/m2 500349. 51 g 97.3 [degF] 20 /min 97 % 97 % 63 /min 162 mm[Hg] 86 mm[Hg] Brenda Natarajan [facility] 16:00:39 Social History Question Answer Notes LastModified by Brisk.io[employer]at ion Details LastModified Time Tobacco Smoking Status Never Smoker Not Available Health Note 06/13/2024 15:08:02 Do You Have An Advance Directive? Yes [email or web address] Information not available 06/13/2024 What Is Your Level Of Alcohol Consumption? Occasional [email or web address] Information not available 06/13/2024 How Many Times Per Week Do You Consume Alcohol? Less Than 1 Time Per Week [email or web address] Information not available 06/13/2024 What Is Your Level Of Caffeine Consumption? Moderate [email or web address] Information not available 06/13/2024 What Is Your Code Status? Full Code [email or web address] Information not available 06/13/2024 Are You Currently Employed? No [email or web address] Information not available 06/13/2024 What Is Your Occupation? Disabled [email or web address] Information not available 06/13/2024 How Many Times Per Week Do You Exercise? 1-2 Times Per Week [email or web address] Information not available 06/13/2024 Do You Have A Medical Power Of Propagation Worker? Yes [email or web address] Information not available 06/13/2024 What Was The Date Of Your Most Recent Tobacco Screening? 06/15/2024 [email or web address] Information not available 06/13/2024 What Is Your Relationship Status? [email or web address] Information not available 06/13/2024 Do You Use Any Illicit Or Recreational Drugs? No [email or web address] Information not available 06/13/2024 Sex: Unknown Functional Status Question Answer Note LastModified by Organizat ion Details LastModified Time What is your exercise level? Occasional [email or web address] Information not available 06/13/2024 Mental Status None recorded. Family History Relationship Description Onset Age of this Age Resolved Age Notes LastModified by Organization Details LastModified Time Son Attention deficit hyperactivit y disorder [email or web address] Not available 06/13 15:08:01 Son Hypertensive disorder [email or web address] Not available 2023 15:08:01 Son Hypercholest erolemia [email or web address] Not available 2023 15:08:01 Sister Arthritis [email or web address] Not available 06/13/2024 15:08:01 Mother Family history of malignant neoplasm [email or web address] Not available 2023 15:08:01 Mother Diabetes mellitus [email or web address] Not available 2023 15:08:01 Mother Heart disease [email or web address] Not available 2023 15:08:01 Mother Hypercholest erolemia [email or web address] Not available 2023 15:08:01 Father Diabetes mellitus [email or web address] Not available 2023 15:08:01 Father Heart disease [email or web address] Not available 2023 15:08:01 Father Hypertensive disorder [email or web address] Not available 2023 15:08:01 Brother Hypertensive disorder [email or web address] Not available 2023 15:08:01 Medical History Condition Response Diabetes Y Anxiety Disorder N Bleeding Disorder N Attention-deficit Hyperactivity Disorder N High Blood Pressure Y Arthritis Y Hyperlipidemia N Cancer Y Stroke N Thyroid Problems N COPD N Depression Y Asthma Y Seizures N Anemia Y Heart Disease N Fibromyalgia Y Osteoporosis N Kidney Disease N Gynecological History Statement/Question Response Abnormal Pap Y If Post Menopausal, Age at Menopause 51 Date of Last Mammogram 04/14/2023 Date of Last Pap Smear 09/18/2022 Age at Menarche 13 Current Control Method Menopause Obstetrics History GPAL:G 0 P 0 0 0 0 Immunizations Vaccine Type Date Status Note Provider Nam e and Address Organization Details Recorded Time Influenza, recombinant, quadrivalent, PF 1 completed Brenda Natarajan [facility] 11/02/2024 14:40:15 Influenza, recombinant, quadrivalent, PF 0 completed [facility] 14:40:15 zoster recombinant 1 completed Brenda Natarajan [facility] 11/02/2024 14:40:15 zoster recombinant 1 completed [facility] Natarajan [facility] 11/02/2024 14:40:15 COVID-19, mRNA, LNP-S, PF, 100 mcg/0.5mL dose or 50 mcg/0.25mL dose 03/05/202 1 completed [facility] 11/02/2024 14:40:15 COVID-19, mRNA, LNP-S, PF, 100 mcg/0.5mL dose or 50 mcg/0.25mL dose 1 completed Brenda Natarajan [facility] 11/02/2024 14:40:15 COVID-19, mRNA, LNP-S, PF, 100 mcg/0.5mL dose or 50 mcg/0.25mL dose 1 completed [facility] 11/02/2024 14:40:15 pneumococcal polysaccharide PPV23 1 completed [facility] 11/02/2024 14:40:15 influenza, unspecified formulation 4 completed [facility] Natarajan [facility] 11/02/2024 14:40:15 influenza, unspecified formulation 4 completed Brenda Natarajan [facility] 11/02/2024 14:40:15 influenza, unspecified formulation 3 completed Brenda Natarajan [facility] 11/02/2024 14:40:15 Tdap 7 completed Brenda Natarajan [facility] 11/02/2024 14:40:15 Influenza, split virus, trivalent, preservative 1 completed [facility] 11/02/2024 14:40:15 Influenza, split virus, quadrivalent, PF 7 completed Brenda Natarajan [facility] 11/02/2024 14:40:15 Past Encounters Encounter ID Performer Location Encounter Start Date Encounter Closed Date Diagnosis/Indication Diagnosis SNOMED-CT Code Diagnosis ICD10 Code Diagnosis Note [id number] Drake Mcneal MD [facility] ([place]) [address] [place] [address] 05/17/2024 13:49:24 05/17/2024 14:46:03 Chest pain 98996935 R07.9 [id number] Eren Oswald PA-C [facility] [place] [facility] [place] [address] [facility] [place] [address] 06/15/2024 14:10:45 06/15/2024 16:32:35 Abdominal pain 21941506 R10.9 Type 2 osmin betes mellitus 25172546 E11.9 Coronary arteriosclerosis 77647729 I25.10 [id number] Stacey ahmadi MD [address] [facility] Neuro[facility] ([place]) [address] [place] [address] 06/21/2024 12:42:22 06/21/2024 16:39:19 Thoracic radiculopathy 88614583 M54.14 Cervical radiculopathy 15458901 M54.12 Lumbar spondylosis 84425 0009 M47.896 [id number] Bina Traore MD [facility] ([place]) [address] [place] [address] 07/05/2024 14:39:55 07/05/2024 15:35:42 Neuropathy due to type 2 diabetes mellitus 1169736081 20682 E11.40 Z79.4 [id number] Stacey ahmadi MD [address] [place] [address] Neuro[facility]urg [facility] ([place]) [address] [place] [address],[address] [place] [address] 08/04/2024 12:16:15 08/04/2024 14:29:11 Spinal arachnoid cyst 935689961 G96.198 [id number] Brenda Marino [facility] ([place]) [address] [place] [address] 08/04/2024 15:26:47 08/04/2024 16:07:31 Type 2 diabetes mellitus 44890257 E11.9 Patient was seen in office for their pre-pump apt. Patient will be starting the Omnipod 5 paired with the Dexcom G7 Patient was educated on insulin instructio ns for the night before their pump start appointmen t. Patient was educated on what to do if their pump fails including who to call and the importance of basal insulin when they do not have a pump. patient was made aware of pump terminolog y. Patient was taught about the hyperglyce alan and DKA decision tree and was educated to call the office if their blood sugar is over 250. We reviewed the definition of Diabetic Ketoacidos is and what can lead to this and ways to prevent it. Patient was educated on sick day management and when to call the MD on sick days. Hypoglycem ia protocol was reviewed with patient and how to treat low blood sugars. Patient verbalized understand ing of today's education and discussion . [id number] Brenda [facility] ([place]) [address] [place] [address] 08/29/2024 14:23:40 08/29/2024 16:23:00 Type 2 diabetes mellitus 28256803 E11.9 Patient came in today for Omnipod 5 pump start. Education was provided on compatible gus and the Omnipod provided controller . Patient was able to choose a controller option. Patient choose to use {{their compatible phone* the provided Omnipod controller }}. After starting the device, patient set their screen saver message and pin. Patient was able to navigate the prompts to set the their programs. Patient set the basal rate, ICR, ISF, max basal, max bolus, and active insulin time. She was made aware that she will no longer be using her long acting insulin but will still need to keep it on hand in case of pump failure or malfuntion . Patient was able to successful ly fill the Omnipod 5 pod with the insulin prescribed by their provider. We went over the minimum fill and the max fill. Education was provided on pod placement and line of site with their Dexcom. Patient inserted the pod on their left {{abdomen arm* leg}} . We were able to activate the pod. Patient was able to successful ly pair the transmitte r. Patient was able to switch into automode. She is aware that if for any reason she is unable to continue in automated mode, the pump will switch to manual mode and she will still be able to use her insulin pump. We reviewed the dashboard on the PDM and what each function did including status bar, menu icons, notificati ons, alarms, system mode indicator. Patient was understand ing of this. We went over tabs on the PDM including, IOB, CGM value and trend. Patient was able to successful ly teach back where to find these settings. We reviewed the menu icon overview including how to switch mode, pause insulin, how to look at history and notificati ons. We then went over alarms and what each means. Patient was understand ing of this. Patient was provided written material on all aspects of todays appointmen t and was made aware to call our office if she has any concerns about her insulin pump. She was also made aware to call tele-nurse if she needs to call during off hours. I spent 90 minutes with patient in today's session and at then, patient had no questions or concerns. [id number] Pauly Vizcaino MD [facility] ([place]) [address] [place] [address] 11/02/2024 14:29:38 11/02/2024 15:23:49 Screening mammography 00554897 Z12.31 History an d physical examination, annual for health maintenance 81382731 Z00.00 First enco unter by subject 149837705 Z76.89 Coronary arteriosclerosis 83908974 I25.10 Essential hypertension 49522836 I10 Morbid obesity 559434762 E66.01 Neuropathy due to type 2 diabetes mellitus 8526781373 96374 E11.40 Z79.4 Spinal arachnoid cyst 25 9840774 G96.198 Lumbar spondylosis 63137 0009 M47.896 Hypercholesterolemia 136 83400 E78.00 Gastroesop hageal reflux disease 742289973 K21.9 Dyspnea 747950104 R06.02 Gastropare sis syndrome 551278311 K31.84 Pain of le ft shoulder region 0483400164 M25.512 Bilateral cramp of muscle of lower limbs 9370690114 0915756 R25.2 Fibromyalgia 445096526 M 79.7 History of asthma 124082 007 Z87.09 Recurrent major depression in remission 52784769 F33.40 Primary insomnia 7955988 F51.01 [id number] Pauly Vizcaino MD [facility] ([place]) [address] [place] [address] 12/01/2024 15:54:07 12/01/2024 17:05:19 Dyspnea 804336115 R06.02 Swelling o f lower limb 372290914 M79.89 Health Concerns Section Related Observation LastModified by Organization Detai ls LastModified Time None Recorded Concern Status LastModified by Organization Details LastModified Time None Recorded Advance Directives Directive Y: Payers Encounter Date Sequence Insurance Name Policy Number Policy Garcia Covered Member ID Garcia Member ID Guarantor Name 08/04/2024 2 [place] [facility] Leti P Rice [id number] Leti Esther Rice 08/04/2024 1 [facility] ([place]) [id number] Leti P Rice [id number] Leti Esther Rice 08/04/2024 2 [place] [facility] Leti P Rice [id number] Leti Esther Rice 08/04/2024 1 [facility] ([place]) [id number] Leti P Rice [id number] Leti Esther Rice 08/29/2024 2 [place] [facility] Leti P Rice [id number] Leti Esther Rice 08/29/2024 1 [facility] ([place]) [id number] Leti P Rice [id number] Leti Esther Rice 11/02/2024 2 [place] [facility] Leti P Rice [id number] Leti Esther Rice 11/02/2024 1 [facility] (MEDICARE REPLACEMENT/A DVANTAGE - PPO) [id number] Leti P Rice [id number] Leti Esther Rice 12/01/2024 2 [place] [facility] Leti P Rice [id number] Leti Esther Rice 12/01/2024 1 [facility] (MEDICARE REPLACEMENT/A DVANTAGE - PPO) [id number] Leti P Rice [id number] Leti Esther Rice Notes Date Note Type Note Provider Name and Address Organization Details Recorded Time 4 text/html Ms. White is a 53 year old female who is a patient of Dr. Lagos returns for follow up with MRIs of the cervical, thoracic and lumbar spine performed at [facility] prior to the appointment. The patient rates her pain as 7/10. She reports pain in the mid lower back, worse in the left back, left hip and left leg and she states that the muscles in the chest hurt. She states that the pain in the muscles of the chest began in the last few weeks. The patient states that she is unsteady on her feet. This 53 year old female with PMH of DM, HTN was last seen on 06/21/2024. She had been initially seen in the office on 07/12/2020 with diffuse right shoulder pain, neck pain, thoracic back pain with radiation into the bilateral (R>L) ribs, right L3 distribution lower back pain. An MRI of the thoracic spine showed anterior deviation of the thoracic cord at T5-6 with deformation of the cord, but no signal changes. These findings were suggestive of an arachnoid cyst, confirmed by CISS/FIESTA. She underwent a CT guided cyst aspiration on 11/26/2020 and had improvement in her symptoms until July of 2021. 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 She underwent a second cyst aspiration on 01/06/2022 and should this ultimately fail, we could consider operative intervention in the form of T5-7 laminectomy with fenestration of arachnoid cyst. She was last seen in June 2022 and had not returned to clinic for follow up since then. MRIs that were suggested were never completed. She was last seen in the office on 06/21/2024 with reports of unsteadiness on her feet and had fallen a couple of times. She had pain across the upper back with numbness and tingling radiating into the upper extremities. She also reported pain in the left side of the lower back, radiating into the left hip, which improved as she was up and moving through the day. She denied bowel/bladder disturbance. As far as I knew, she had not undergone any recent physical therapy or epidural steroid injection. On exam, she had 4+/5 biceps and triceps weakness on the right, 4+/5 weakness of bilateral hip flexor, + Romberg. I could not make plans for any kind of intervention without up to date imaging. I recommended MRI cervical, thoracic and lumbar without contrast (patient preferred [facility] and requested Valium for claustrophobia). I also recommended weight loss, as a BMI of 44 added significant risk to any surgical procedure. She stated she was seeing her reed cleaner on 08/24/24 and planned to ask about an insulin pump. She told me that she was likely unable to tolerate other weight loss medications due to a history of gastroparesis. I would contact her with imaging results and further plan of care, which included repeat cyst aspiration vs. laminectomy with fenestration of arachnoid cyst. Stacey beard MD [address] [place] [address], [phone], [facility] 08/04/2024 20:27:36 5 text/html Leti Gallego a 54 year oldfemalepresenting for care. The patient is here today for a new patient visit to establish care. She was previously a patient of Dr. Lagos. The patient reports that she is having pain in her left shoulder. This has been going on for a couple of months. She does not know of any injury. She is not able to raise her arm. She had x rays done in [place] at [facility] and they came back okay. She has been taking ibuprofen, tylenol and lidocaine patches. Nothing seems to help much. She has had some ER visits because of the pain. Has not done any PT. She was hospitalized in [place] in May 2024 for chest pain and pneumonia. She was to follow up with pulmonology, but she doesn't want to travel to [place]. She is hoping for a referral to a [place] provider. She also reports that she has been having leg cramps and cramps in her feet. She had some swelling as well, but that has improved. -mammogram: 2022, will provide an order for this-PAP: abnormal in 2022, declines at this time, was referred to [facility] for HPV+, declines re-referral.-colonoscopy : awaiting cardiac clearance to schedule colonoscopy specialists: cardiology, endocrinology, neurosurg, GI Pauly Vizcaino MD [address] [place] [address], [phone], [facility] 11/03/2024 10:26:36 5 text/html The patient is here today for leg swelling and shortness of breath. She has some issues with this at her baseline, but it has been bad for the last few weeks.sob is mostly with activity like climbing stairs. swelling typically occurs most at the end of the day or being on her feet alot. She is supposed to do a stress test with cardiology. Pauly Vizcaino MD [address] [place] [address], [phone], [facility] 12/05/2024 13:02:18 OBGyn Episode No OBEpisode recorded.
--- NOTE | 2024-12-17 23:13 | PC.NURSE ---
UPDATED PATIENT THAT DR BENAVIDEZ WOULD BE IN TO SEE HER SOON HE CAN. PATIENT VERBALIZED UNDERSTANDING. CALL LIGHT IS IN REACH.
--- NOTE | 2024-12-17 23:34 | ED_ITS ---
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 She sustained injury to her neck, left shoulder and right knee. She went to [facility] in [place] where she had a trauma workup which was negative. Subsequently the patient is undergoing physical therapy. The patient has been having ongoing left shoulder and left suprascapular pain. The patient is unable to sleep and presents to the ED for pain control. No fever or chills. No motor or sensory deficit of the left upper extremity. MD complaint: injury to: left and shoulder ( Left suprascapular region.) Onset (ago): day(s) ( Seven days) Other Extremity Injury: Left: shoulder Handedness: right Severity: severe Relieving factors: immobilization Exacerbating factors: movement of extremity Context: fall Associated symptoms: other ( chronic cervical neck pain for which she is due to get epidural injections) Related Data Allergies Allergy/AdvReac Type Severity Reaction Status Date / Time prochlorperazine Allergy Intermediate Agitated Verified 12/17/24 22:41 clarithromycin Allergy Mild VIOLENTLY Verified 12/17/24 22:41 ILL WITH VOMITING sumatriptan Allergy Mild POUNDING Verified 12/17/24 22:41 HR, DIFFICULTY BREATHING diphenhydramine AdvReac Unknown GOES Verified 12/17/24 22:41 CRAZY METOCLOPRAMIDE HCL AdvReac Intermediate Jittery Uncoded 12/17/24 22:41 Review of Systems Review of Systems: All systems reviewed & are unremarkable except as noted in HPI and below Constitutional: Constitutional: Reports as per HPI and Reports no additional constitutional complaints Eyes: Eyes: Reports as per HPI and Reports no additional eye complaints ENT: Reports system reviewed and no additional complaints, except as documented and Reports as per HPI Cardiovascular: Cardiovascular: Reports as per HPI and Reports no additional cardiovascular complaints Respiratory: Respiratory: Reports as per HPI, Reports no additional respiratory complaints and Reports cough Gastrointestinal: Gastrointestinal: Reports as per HPI and Reports no additional gastrointestinal complaints Genitourinary: Genitourinary: Reports no additional female genitourinary complaints and Reports as per HPI Musculoskeletal: Musculoskeletal: Reports no additional musculoskeletal complaints and Reports as per HPI Comments: left shoulder and left supra Integumentary/Breasts: Skin/Breast: Reports system reviewed and no additional complaints, except as docu and Reports as per HPI Neurologic: Reports system reviewed and no additional complaints, except as documented and Reports as per HPI Psychiatric: Psychiatric: Reports no additional psychiatric complaints and Reports as per HPI Endocrine: Endocrine: Reports no additional endocrine complaints and Reports as per HPI Hematologic/Lymphatic: Hematologic/Lymphatic: Reports no additional hematologic/lymphatic complaints and Reports as per HPI Allergic/Immunologic: Allergic/Immunologic: Reports no additional allergic/immunologic complaints and Reports as per HPI [facility] Past Medical History Medical History (Updated 12/18/24 @ 00:08 by Marlon Jiménez MD) Jean Claude cell tumor Diabetes mellitus Hypertension Arthritis Asthma Surgical History Surgical History (Updated 12/18/24 @ 00:03 by Marlon Jiménez MD) H/O cardiac catheterization Exam Narrative: blood pressure 185/76. Pulse of 69. Oxygen saturation of 97% on room air. Const: General: no acute distress Nutritional Appearance: well nourished Orientation/consciousness: patient oriented x3 Limitations: no limitations HENMT: Head: normal to inspection Ears: external ears normal Face/Nose/Sinus: Normal external nose present Face and sinus: normal facial exam Mouth: Yes Normal oral and palatal mucosa present Teeth and gingiva: abnormal tooth and associated gingiva Throat: posterior oropharynx normal Eyes: Conjunctivae: conjunctivae normal Pupils: Equal, round and reactive pupils present EOM: EOMs intact bilaterally Direct Ophthalmoscopy: no photophobia Neck: Neck: normal visual inspection and no lymphadenopathy Chest: Chest palpation & inspection: normal inspection of the chest Resp: Effort & Inspection: normal respiratory effort Auscultation: diminished lung sounds Cardio: Rate: regular rate Rhythm: regular rhythm GI: GI Palp: Yes Soft to palpation Auscultation: normal bowel sounds Other: No tenderness/ rigidity /rebound : General: Yes no CVA tenderness Back/Spine/Pelvis: Back: no CVA tenderness Other: no Cervical spinal tenderness noted. normal range of movement of the cervical spine. Skin: General skin exam: normal color Rashes: no rashes Wounds: no wounds Neuro: General: patient oriented x3, moves all extremities, no meningeal signs, no focal motor deficits and CN's II-XI intact bilaterally Speech: normal speech Gait exam (Neuro): Normal gait present Extrem: General: normal to inspection and edema Other: Left shoulder-- tenderness in the subacromial region. Decreased range of motion. Tenderness over the suprascapular region. Psych: Mental Status: mental status grossly normal Affect: normal affect Attitude: cooperative Course Course Emergency Course: Patient presents with left suprascapular and left shoulder pain. She had negative x-ray and CT scans after the fall 1 week ago. The patient is currently getting physical therapy. patient has been having ongoing pain not relieved by medication. Will give her a dose of Dilaudid and Zofran. Will have the patient follow-up with a primary care physician. Vital Signs Vital signs: Vital Signs Temperature 36.7 C 12/17/24 22:31 Pulse Rate 69 12/17/24 22:31 Respiratory Rate 18 12/17/24 22:31 Blood Pressure 185/76 H 12/17/24 22:31 Pulse Oximetry 97 12/17/24 22:31 Oxygen Delivery Room Air 12/17/24 22:31 Temperature 36.7 C 12/17/24 22:31 Pulse Rate 69 12/17/24 22:31 Respiratory Rate 18 12/17/24 22:31 Blood Pressure 185/76 H 12/17/24 22:31 Pulse Oximetry 97 12/17/24 22:31 Oxygen Delivery Room Air 12/17/24 22:31 MDM - Extremity Injury (Upper) MDM Narrative Medical decision making narrative: Left shoulder pain Differential Diagnosis Differential diagnosis: Likely dislocation of shoulder Discharge Plan Discharge Clinical Impression: Accidental fall Qualifiers: Encounter type: subsequent encounter Qualified Code(s): W19.XXXD - Unspecified fall, subsequent encounter Left shoulder pain Qualifiers: Chronicity: chronic Qualified Code(s): M25.512 - Pain in left shoulder Patient Disposition: Home, Self-Care Condition: Stable Instructions: Antibiotic Form, Shoulder Sprain (ED), Arthritis (ED) Patient Language: Algerian Follow-up/Referrals: Adele Lagos [Other] Time of Disposition: 00:08
--- NOTE | 2024-12-17 23:40 | PC.NURSE ---
DR BENAVIDEZ AT THE BEDSIDE
[2024-12-17] MEDS: HYDROmorphone HCL INJ (*CRX) 2 MG/ML VIAL 1 MG IM (23:58)
[2024-12-17] MEDS: ONDANSETRON HCL ODT 4 MG TABLET PO (23:59)
== END 2024-12-18 00:22 | disposition home or self-care (01) ==
PROVIDERS: Emergency Provider Internal Medicine Critical Care Medicine
DX: M25.512 Pain in left shoulder (principal); I10 Essential (primary) hypertension; E11.9 Type 2 diabetes mellitus without complications; J45.909 Unspecified asthma, uncomplicated; W19.XXXD Unspecified fall, subsequent encounter
CPT/HCPCS: 96372; 99283; A9270; J1171

== ENCOUNTER 2025-01-04 18:30 | Emergency (ER) | payer MEDICARE, MEDICAID, SELFPAY ==
--- NOTE | ~2025-01-04 | XR_ITS ---
HISTORY: left shoulder pain, fall COMPARISON: None TECHNIQUE: 3 views of the left shoulder were performed. FINDINGS: No acute fracture. The acromioclavicular joint space is markedly narrowed but otherwise maintained. Chondrocalcinosis is identified within the acromioclavicular joint space, for which altered positioni ng is demonstrated on multiple views. The visualized portion of the adjacent left lung is clear. IMPRESSION: Degenerative disease, without acute fracture or anterior dislocation. Reviewed, dictated and finalized at location A.
--- OUTSIDE RECORDS SUMMARY | 2025-01-04 18:33 | XMS_ITS | Continuity of Care Document ---
Author Organization [facility] Address [address] [place] [address] Phone Care Team Providers Care Wedger Name Role Phone Marilu Clifford PA-C Unavailable Unavailable Advance Directives Directive Yes / No Effective Date File Name No Information Encounters Encounter Description Practice Location Reason(s) For Visit Diagnoses Date Provider Providers Copied on Encounter [facility], [address] [place] [address], [facility], tel: [phone] [facility] chart update (chief complaint) No Information Darrin Michel. [address] [place] [address], [facility], . tel: [phone] Family History Family Member Type Diagnosis Age At Onset No Information Payers Payer name Insurance type Covered democrat ID Authoriza tion(s) No Information Social History [...]
--- NOTE | 2025-01-04 18:34 | ED_ITS ---
HPI - Extremity Injury (Upper) General Chief Complaint: Extremity Injury, Upper Stated Complaint: SHOULDER PAIN Time Seen by Provider: 01/04/25 18:34 Source: patient Mode of arrival: ambulatory Limitations: no limitations History of Present Illness HPI narrative: 54-year-old female with a history of hypertension, diabetes mellitus, arthritis, cervical arthritis/chronic pain with a tens unit, status post epidural shots had a fall 4 weeks ago for which she presented to the ED on . The patient was getting physical therapy but presented the ED in view of worsening pain. The patient presents today after -- a fall last night. She slid out of bed and bumped her left shoulder. No other injuries noted. -- Severe the left shoulder with decreased range of motion. complaint: injury to: left and shoulder Onset (ago): day(s) ( One day) Other Extremity Injury: Left: shoulder Other injuries: none Handedness: right Place: home Severity: moderate Relieving factors: immobilization Exacerbating factors: movement of extremity Context: direct blow Associated symptoms: denies other symptoms Related Data Allergies Allergy/AdvReac Type Severity Reaction Status Date / Time prochlorperazine Allergy Intermediate Agitated Verified 01/04/25 19:02 clarithromycin Allergy Mild VIOLENTLY Verified 01/04/25 19:02 ILL WITH VOMITING sumatriptan Allergy Mild POUNDING Verified 01/04/25 19:02 HR, DIFFICULTY BREATHING diphenhydramine AdvReac Unknown GOES Verified 01/04/25 19:02 CRAZY METOCLOPRAMIDE HCL AdvReac Intermediate Jittery Uncoded 01/04/25 19:02 Review of Systems Review of Systems: All systems reviewed & are unremarkable except as noted in HPI and below PMFSH Past Medical History 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 Diabetes mellitus Hypertension Arthritis Asthma Surgical History Surgical History H/O cardiac catheterization Exam Narrative: vitals are stable Const: General: healthy appearing Nutritional Appearance: well nourished Orientation/consciousness: patient oriented x3 Limitations: no limitations HENMT: Head: normal to inspection Ears: external ears normal Face/Nose/Sinus: Normal external nose present Throat: posterior oropharynx normal Eyes: Conjunctivae: conjunctivae normal Pupils: Equal, round and reactive pupils present EOM: EOMs intact bilaterally Direct Ophthalmoscopy: no photophobia Neck: Neck: normal visual inspection, no lymphadenopathy and no meningeal signs Chest: Chest palpation & inspection: normal inspection of the chest Resp: Effort & Inspection: normal respiratory effort Auscultation: clear to auscultation bilaterally Cardio: Rate: regular rate Rhythm: regular rhythm GI: GI Palp: Yes Soft to palpation Auscultation: normal bowel sounds Other: no tenderness/ rigidity /rebound. Back/Spine/Pelvis: Back: no CVA tenderness Other: No spinal tenderness noted. Skin: General skin exam: normal color Rashes: no rashes Wounds: no wounds Neuro: General: patient oriented x3, moves all extremities, no meningeal signs, no focal motor deficits and CN's II-XI intact bilaterally Cranial nerves: Yes Nystagmus not present Speech: normal speech Extrem: General: normal to inspection Other: Left shoulder-- tender on palpation with decreased range of motion. Psych: Mental Status: mental status grossly normal Affect: normal affect Attitude: cooperative Course Course Emergency Course: accidental fall with left shoulder pain-- x-ray did not show any acute findings. Right shoulder pain MDM - Extremity Injury (Upper) MDM Narrative Medical decision making narrative: accidental fall right shoulder p Medical Records Attestation: I reviewed the patient's medical records. Lab Data Attestation: I reviewed the patient's lab results. Discharge Plan Discharge Clinical Impression: Chronic shoulder pain Patient Disposition: Home Condition: Stable Instructions: Antibiotic Form, Shoulder Sprain (ED) Patient Language: Estonian Follow-up/Referrals: Breezy,Brissa Zamora MD [Primary Care Provider] - Time of Disposition: 19:56
--- OUTSIDE RECORDS SUMMARY | 2025-01-04 18:34 | XMS_ITS | Data Portability ---
Author Organization [facility], 800 [facility] Neurology ([place]) Address [address] [place] [address] Care Team Providers Care Maintenance Porter Name Role Phone DRAKE MCNEAL Veneer Measurer PAULY VIZCAINO Primary Care Provider Assessment Encounter [...] neuro interventional procedures with cyst aspiration at [facility]. She tells me that for the last [...] and lumbar spine were performed today at [facility]. The cervical study reveals excellent alignment and [...] cyst fluid. I am referring her to [facility] for consideration of repeat cyst aspiration. I [...] The patient was supposed to see a gypsum calciner in [place] but because of the distance to get there, she did not end up going but would like referral to a gypsum calciner here. We will make that referral today. [...] on this date of service including both meot-mj-[id number] and non- fhzr-yr-wssv time excluding any separately reportable services. SKK [email or web address] Not available 11/03/2024 10:26:31 12/01/2024 12/01/2024 1. [...] Modified Time Details Appointments Malissa terry Patient 15.EST 2024 11:30A M Tiffanie Painting Not available Not available Not available Malissa terry Patient 10.EST 2024 02:40P M Dr. Drake Mcneal Not available Not available Not available New Patient Visit 20.NEW 2024 02:40P M Dr. Carrol Villagomez Not available Not available Not available Malissa terry Patient 20.EST 2024 02:00P M Dr. Pauly Vizcaino Not available Not available Not available Lab pro BNP (pro B-type natriur etic peptide ), serum or plasma 2024 025 [facility] - [facility] Laboratory, [address] [place] [address], [address], 12/02/2024 00:46:11 Referral physica l therapi st referra l 2024 025 [facility], [address] [place], [address], 12/27/2024 19:08:28 pulmono logist referra l 2024 025 ctjerald Villagomez MD, [address] [place] [address], [address], 11/08/2024 15:04:[address] guided aspirat ion procedu re (PROC) - CT guided cyst aspirat ion at T5-T7 2023 024 [facility]) Scheduling, [address] [place] [address], [address], 08/30/2024 09:57:37 Surgeries None recorde d. Imaging XR, chest, 2 view 2024 025 [facility] Radiology Scheduling, [address] [place], [address], 12/01/2024 23:35:54 MAMMO, screeni ng, digital , bilater al 2024 025 [facility] - Radiology, [address] [place], [address], 12/21/2024 17:56:19 Medication Orders tizanid ine 4 mg tablet 2024 025 [place], [address] [place] [address], [address], 11/10/2024 13:52:17 hydroco done 5 mg-acet aminoph en 325 mg tablet 2024 025 [place], [address] [place] [address], [address], 12/01/2024 16:35:23 doxepin 75 mg capsule 2024 025 [place], [address] [place] [address], [address], 11/10/2024 13:52:14 pantopr azole 40 mg tablet, delayed release 2024 025 [place], [address] [place] [address], [address], 11/02/2024 15:40:30 atorvas tatin 40 mg tablet 2024 025 [place], [address] [place] [address], [address], 11/02/2024 15:35:29 dicyclo mine 20 mg tablet 2024 025 [place], [address] [place] [address], [address], 11/02/2024 15:35:28 amlodip ine 5 mg tablet 2024 025 [place], [address] [place] [address], [address], 11/02/2024 15:40:31 metopro lol succina te ER 50 mg tablet, extende d release 24 hr 2024 025 [place], [address] [place] [address], [address], 11/10/2024 13:52:16 citalop silvio 40 mg tablet 2024 025 [place], [address] [place] [address], [address], 11/10/2024 13:52:16 Patient TargetsNo targets recorded. Patient InstructionsNo instructions recorded. Reason for Referral Kier Drier Referral for D yspnea Referring Physician: Pauly Vizcaino [facility], Encounter Date: 11/02/2024 Physical Therapist Referral for Pain of left shoulder region Referring Physician: Pauly Vizcaino [facility], Encounter Date: 11/02/2024 Results Created Date Observation Date Name Description Value Unit Range Abnormal Flag Note LastModifiedBy Organization Detail LastModifiedTime 09/20/19 25 09/20/2024 URINA LYSIS color YELLOW normal : yellow Not Available [facility] Scheduling [address] [place], [address], 09/20/2024 17:53:39 09/20/19 25 09/20/2024 URINA LYSIS character CLOUDY normal : clear Not Available [facility] Sched[facility] [address] [place], [address], 09/20/2024 17:53:39 09/20/19 25 09/20/2024 URINA LYSIS spec. grav 1.020 normal : 1.003- 1.029 Not Available [facility] Sched[facility] [address] [place], [address], 09/20/2024 17:53:39 09/20/19 25 09/20/2024 URINA LYSIS pH 6.0 normal : 4.5 - 7.8 Not Available [facility] Sched[facility] [address] [place], [address], 09/20/2024 17:53:39 09/20/19 25 09/20/2024 URINA LYSIS leukocytes 1+ normal : negati ve Not Available [facility] Sched[facility] [address] [place], [address], 09/20/2024 17:53:39 09/20/19 25 09/20/2024 URINA LYSIS nitrite NEGATI VE normal : negati ve Not Available [facility] [address] [place], [address], 09/20/2024 17:53:39 09/20/19 25 09/20/2024 URINA LYSIS protein NEGATI VE normal : negati ve Not Available [facility] [address] [place], [address], 09/20/2024 17:53:39 09/20/19 25 09/20/2024 URINA LYSIS glucose NEGATI VE normal : negati ve Not Available [facility] [address] [place], [address], 09/20/2024 17:53:39 09/20/19 25 09/20/2024 URINA LYSIS ketones NEGATI VE normal : negati ve Not Available [facility] [address] [place], [address], 09/20/2024 17:53:39 09/20/19 25 09/20/2024 URINA LYSIS urobilinogen 0.2 normal : 0.2 - 1.0 Not Available [facility] [address] [place], [address], 09/20/2024 17:53:39 09/20/19 25 09/20/2024 URINA LYSIS bilirubin NEGATI VE normal : negati ve Not Available [facility] [address] [place], [address], 09/20/2024 17:53:39 09/20/19 25 09/20/2024 URINA LYSIS blood NEGATI VE normal : negati ve MICRO SCOPI C Not Available [facility] [address] [place], [address], 09/20/2024 17:53:39 09/20/19 25 09/20/2024 URINA LYSIS WBC/hpf 3-5 normal : 0-5 hpf Not Available [facility] [address] [place], [address], 09/20/2024 17:53:39 09/20/19 25 09/20/2024 URINA LYSIS RBC/hpf 0-2 normal : 0-3 hpf Not Available [facility] [address] [place], [address], 09/20/2024 17:53:39 09/20/19 25 09/20/2024 URINA LYSIS epith/hpf >50 normal : 0-5 hpf Not Available [facility] [address] [place], [address], 09/20/2024 17:53:39 09/20/19 25 09/20/2024 URINA LYSIS cast/lpf NONE SEEN normal : 0-4 lpf Not Available [facility] [address] [place], [address], 09/20/2024 17:53:39 09/20/19 25 09/20/2024 URINA LYSIS crystals NONE SEEN normal : negati ve Not Available [facility] [address] [place], [address], 09/20/2024 17:53:39 09/20/19 25 09/20/2024 URINA LYSIS bacteria TRACE normal : negati ve abnormal Not Available [facility] [address] [place], [address], 09/20/2024 17:53:39 10/16/1910/21/2024 CULTU RE BLOOD results _BLOO D CULTU RE_ PRELI MINAR Y REPOR T _LAC_ _ 10/18.1 249.L B . _NO_G ROWTH _AFTE R_48_ HOURS _INCU BATIO N____ _ 10/18.1 249.L B . FINAL REPOR T _NO_A EROBI C/ADALBERTO EROBI C_GRO WTH_A FTER_ 5_DAY S_INC UBAT. _ 10/21.0 813.C ML. _ _ Micro biolo gy Speci men Sourc e Colle ction Date Colle ction Time Speci men Note: Recei pt Date Exam Id. No: [id number] Exam Statu s Compl etion Date Compl etion Time 10/18.1 249.L B . 10/21.0 813.C ML.CO MPLET E Not Available [facility] Sched[facility] [address], [place], [address], 10/21/2024 09:13:55 10/16/19 25 10/16/2024 MAGNE SIUM magnesium 1.7 mg/dL 1.7 - 2.8 Not Available [facility] [address] [place], [address], 10/16/2024 07:43:53 10/16/19 25 10/16/2024 PROCA LCITO [...] local ized infec tions (with out syste deepthi signs ) which can be assoc iated with such low graciela ntrat ions, or a syste deepthi infec tion in its initi al stage s (<6 hours ). Futhe rmore , incre ased proca lcito alma delia can occur witho ut infec tion. PCT graciela ntrat ions betwe en 0.5 and 2.0 ng/mL shoul d be inter prete d ellen g into accou nt patie nt's histo ry. It is recom nate d to retes t PCT witho ut 6-24 hours if any graciela ntrat ion <2.0 ng/mL are obtai tiffanie. Not Available [facility] [address] [place], [address], 10/16/2024 07:28:17 10/16/19 25 10/16/2024 C-PRECIOUS CTIVE PROTE IN CRP 9.381 mg/dL 0.000 - 0.500 high Not Available [facility] [address] [place], [address], 10/16/2024 07:14:57 10/16/19 25 10/16/2024 COMPL ETE METAB OLIC PANEL sodium 141 mmol/ L 136 - 145 Not Available [facility] [address] [place], [address], 10/16/2024 07:14:37 10/16/19 25 10/16/2024 COMPL ETE METAB OLIC PANEL potassium 3.8 mmol/ L 3.5 - 5.1 Not Available [facility] [address] [place], [address], 10/16/2024 07:14:37 10/16/19 25 10/16/2024 COMPL ETE METAB OLIC PANEL chloride 110 mmol/ L 98 - 107 high Not Available [facility] [address] [place], [address], 10/16/2024 07:14:37 10/16/19 25 10/16/2024 COMPL ETE METAB OLIC PANEL CO2 23 mmol/ L 22 - 28 Not Available [facility] [address] [place], [address], 10/16/2024 07:14:37 10/16/19 25 10/16/2024 COMPL ETE METAB OLIC PANEL glucose 129 mg/dL 70 - 105 high Not Available [facility] [address] [place], [address], 10/16/2024 07:14:37 10/16/19 25 10/16/2024 COMPL ETE METAB OLIC PANEL BUN 15 mg/dL 7 - 18 Not Available [facility] Scheduling [address] [place], [address], 10/16/2024 07:14:37 10/16/19 25 10/16/2024 COMPL ETE METAB OLIC PANEL creatinine 0.83 mg/dL 0.44 - 1.24 Not Available [facility] [address] [place], [address], 10/16/2024 07:14:37 10/16/19 25 10/16/2024 COMPL ETE METAB OLIC PANEL total protein 6.0 g/dL 6.0 - 8.3 Not Available [facility] [address] [place], [address], 10/16/2024 07:14:37 10/16/19 25 10/16/2024 COMPL ETE METAB OLIC PANEL albumin 3.2 g/dL 3.5 - 5.0 low Not Available [facility] [address] [place], [address], 10/16/2024 07:14:37 10/16/19 25 10/16/2024 COMPL ETE METAB OLIC PANEL T bilirubin 0.7 mg/dL 0.2 - 1.0 Not Available [facility] [address] [place], [address], 10/16/2024 07:14:37 10/16/19 25 10/16/2024 COMPL ETE METAB OLIC PANEL SGPT 19 IU/L 10 - 40 Not Available [facility] [address] [place], [address], 10/16/2024 07:14:37 10/16/19 25 10/16/2024 COMPL ETE METAB OLIC PANEL alk phos 122 IU/L 32 - 92 high Not Available [facility] [address] [place], [address], 10/16/2024 07:14:37 10/16/19 25 10/16/2024 COMPL ETE METAB OLIC PANEL SGOT 18 IU/L 10 - 42 Not Available [facility] [address] [place], [address], 10/16/2024 07:14:37 10/16/19 25 10/16/2024 COMPL ETE METAB OLIC PANEL calcium 8.2 mg/dL 8.4 - 10.2 low Not Available [facility] [address] [place], [address], 10/16/2024 07:14:37 10/16/19 25 10/16/2024 COMPL ETE METAB OLIC PANEL age 54 yr Not Available [facility] [address] [place], [address], 10/16/2024 07:14:37 10/16/19 25 10/16/2024 COMPL ETE [...] se(CK D) is prese nt. Not Available [facility] [address] [place], [address], 10/16/2024 07:14:37 10/16/19 25 10/16/2024 CBC-C OMPLE TE WBC 5.4 10^3u L 4.0 - 10.8 Not Available [facility] [address] [place], [address], 10/16/2024 06:58:18 10/16/19 25 10/16/2024 CBC-C OMPLE TE RBC 3.71 10^6u L 3.80 - 5.20 low Not Available [facility] [address] [place], [address], 10/16/2024 06:58:18 10/16/19 25 10/16/2024 CBC-C OMPLE TE hemoglobin 9.9 g/dL 11.7 - 16.0 low Not Available [facility] [address] [place], [address], 10/16/2024 06:58:18 10/16/19 25 10/16/2024 CBC-C OMPLE TE hematocrit 30.0 % 35.0 - 47.0 low Not Available [facility] [address] [place], [address], 10/16/2024 06:58:18 10/16/19 25 10/16/2024 CBC-C OMPLE TE MCV 81 fL 80 - 100 Not Available [facility] [address] [place], [address], 10/16/2024 06:58:18 10/16/19 25 10/16/2024 CBC-C OMPLE TE MCH 27 pg 28 - 33 low Not Available [facility] [address] [place], [address], 10/16/2024 06:58:18 10/16/19 25 10/16/2024 CBC-C OMPLE TE MCHC 33 g/dL 32 - 36 Not Available [facility] [address] [place], [address], 10/16/2024 06:58:18 10/16/19 25 10/16/2024 CBC-C OMPLE TE RDW 14.5 % 11.5 - 15.5 Not Available [facility] [address] [place], [address], 10/16/2024 06:58:18 10/16/19 25 10/16/2024 CBC-C OMPLE TE platelet 194 10^3u L 140 - 440 Not Available [facility] [address] [place], [address], 10/16/2024 06:58:18 10/16/19 25 10/16/2024 CBC-C OMPLE TE MPV 7.4 fL 7.5 - 11.0 low Not Available [facility] [address] [place], [address], 10/16/2024 06:58:18 10/16/19 25 10/16/2024 CBC-C OMPLE TE %neutrophils 56.8 % 40.0 - 75.0 Not Available [facility] [address] [place], [address], 10/16/2024 06:58:18 10/16/19 25 10/16/2024 CBC-C OMPLE TE %lymphocytes 29.8 % 15.0 - 45.0 Not Available [facility] [address] [place], [address], 10/16/2024 06:58:18 10/16/19 25 10/16/2024 CBC-C OMPLE TE %monocytes 9.9 % 2.0 - 12.0 Not Available [facility] [address] [place], [address], 10/16/2024 06:58:18 10/16/19 25 10/16/2024 CBC-C OMPLE TE %eosinophils 3.1 % 0.0 - 5.0 Not Available [facility] [address] [place], [address], 10/16/2024 06:58:18 10/16/19 25 10/16/2024 CBC-C OMPLE TE %basophils 0.4 % 0.0 - 2.0 Not Available [facility] [address] [place], [address], 10/16/2024 06:58:18 10/16/19 25 10/16/2024 CBC-C OMPLE TE neutrophil 3.1 10^3/ uL 1.7 - 7.0 Not Available [facility] [address] [place], [address], 10/16/2024 06:58:18 10/16/19 25 10/16/2024 CBC-C OMPLE TE lymphocyte 1.6 10^3/ uL 0.9 - 3.7 Not Available [facility] [address] [place], [address], 10/16/2024 06:58:18 10/16/19 25 10/16/2024 CBC-C OMPLE TE monocyte 0.5 10^3/ uL 0.2 - 0.8 Not Available [facility] [address] [place], [address], 10/16/2024 06:58:18 10/16/19 25 10/16/2024 CBC-C OMPLE TE eosinophil 0.2 10^3/ uL 0.0 - 0.5 Not Available [facility] [address] [place], [address], 10/16/2024 06:58:18 10/16/19 25 10/16/2024 CBC-C OMPLE TE basophil 0.0 10^3/ uL 0.0 - 0.2 Not Available [facility] [address] [place], [address], 10/16/2024 06:58:18 10/16/19 25 10/16/2024 CBC-C OMPLE TE mdw 19.63 0.00 - 20.00 {CD] Not Available [facility] [address] [place], [address], 10/16/2024 06:58:18 10/16/19 25 10/16/2024 CBC-C OMPLE TE manual diff NOT INDICA MICHELLE Not Available [facility] [address] [place], [address], 10/16/2024 06:58:18 10/16/19 25 10/16/2024 LACTI C ACID lactic acid 0.84 mmol/ L 0.50 - 2.20 Not Available [facility] [address] [place], [address], 10/16/2024 06:51:31 10/16/19 25 10/21/2024 CULTU RE BLOOD results _BLOO D CULTU RE_ PRELI MINAR Y REPOR T _LEFT _AC__ _ 10/18. 249.L B . _NO_G ROWTH _AFTE R_48_ HOURS _INCU BATIO N____ _ 10/18. 249.L B . FINAL REPOR T _NO_A EROBI C/ADALBERTO EROBI C_GRO WTH_A FTER_ 5_DAY S_INC UBAT. _ 10/21.0 813.C ML. _ _ Micro biolo gy Speci men Sourc e Colle ction Date Colle ction Time Speci men Note: Recei pt [place] No: [id number] Exam Statu s Compl etion Date Compl etion Time 10/18.1 249.L B . 10/21.0 813.C ML.CO MPLET E Not Available [facility] [address] [place], [address], 10/21/2024 09:13:44 10/16/19 25 10/19/2024 CULTU RE/UR INE results _CULT URE URINE _ Not Available [facility] [address] [place], [address], 10/19/2024 11:01:58 10/16/19 25 10/19/2024 CULTU RE/UR INE final report CLEAN CATCH SPECIM EN _50,0 00_cf u/ml_ ___ 10/19.1 001.C ML. ___ Micro biolo gy Not Available [facility] [address] [place], [address], 10/19/2024 11:01:58 10/16/1910/19/2024 CULTU RE/UR INE results Speci men Sourc e 46835 0001 Colle ction Date 10/16 Colle ction Time 04:38 Speci men Note: Recei pt Date Exam Id. No: [id number] Exam Statu s Compl etion Date 10/18 [...] E CLEAN CATCH SPECI MEN Not Available [facility] [address] [place], [address], 10/19/2024 11:01:58 02/02/10/16/2024 URINA LYSIS color YELLOW normal : yellow Not Available [facility] [address] [place], [address], 10/16/2024 07:12:36 10/16/19 25 10/16/2024 URINA LYSIS character CLEAR normal : clear Not Available [facility] [address] [place], [address], 10/16/2024 07:12:36 10/16/19 25 10/16/2024 URINA LYSIS spec. grav 1.015 normal : 1.003- 1.029 Not Available [facility] [address] [place], [address], 10/16/2024 07:12:36 10/16/19 25 10/16/2024 URINA LYSIS pH 6.0 normal : 4.5 - 7.8 Not Available [facility] [address] [place], [address], 10/16/2024 07:12:36 10/16/19 25 10/16/2024 URINA LYSIS leukocytes TRACE normal : negati ve Not Available [facility] [address] [place], [address], 10/16/2024 07:12:36 10/16/19 25 10/16/2024 URINA LYSIS nitrite NEGATI VE normal : negati ve Not Available [facility] [address] [place], [address], 10/16/2024 07:12:36 10/16/19 25 10/16/2024 URINA LYSIS protein NEGATI VE normal : negati ve Not Available [facility] [address] [place], [address], 10/16/2024 07:12:36 10/16/19 25 10/16/2024 URINA LYSIS glucose NEGATI VE normal : negati ve Not Available [facility] [address] [place], [address], 10/16/2024 07:12:36 10/16/19 25 10/16/2024 URINA LYSIS ketones NEGATI VE normal : negati ve Not Available [facility] [address] [place], [address], 10/16/2024 07:12:36 10/16/19 25 10/16/2024 URINA LYSIS urobilinogen 1.0 normal : 0.2 - 1.0 Not Available [facility] [address] [place], [address], 10/16/2024 07:12:36 10/16/19 25 10/16/2024 URINA LYSIS bilirubin NEGATI VE normal : negati ve Not Available [facility] [address] [place], [address], 10/16/2024 07:12:36 10/16/19 25 10/16/2024 URINA LYSIS blood NEGATI VE normal : negati ve MICRO SCOPI C Not Available [facility] [address] [place], [address], 10/16/2024 07:12:36 10/16/19 25 10/16/2024 URINA LYSIS WBC/hpf 3-5 normal : 0-5 hpf Not Available [facility] [address] [place], [address], 10/16/2024 07:12:36 10/16/19 25 10/16/2024 URINA LYSIS RBC/hpf 0-2 normal : 0-3 hpf Not Available [facility] [address] [place], [address], 10/16/2024 07:12:36 10/16/19 25 10/16/2024 URINA LYSIS epith/hpf 10-20 normal : 0-5 hpf Not Available [facility] [address] [place], [address], 10/16/2024 07:12:36 10/16/19 25 10/16/2024 URINA LYSIS cast/lpf NONE SEEN normal : 0-4 lpf Not Available [facility] [address] [place], [address], 10/16/2024 07:12:36 10/16/19 25 10/16/2024 URINA LYSIS crystals NONE SEEN normal : negati ve Not Available [facility] [address] [place], [address], 10/16/2024 07:12:36 10/16/19 25 10/16/2024 URINA LYSIS bacteria TRACE normal : negati ve abnormal Not Available [facility] [address] [place], [address], 10/16/2024 07:12:36 10/16/19 25 10/16/2024 GLUCO SE POINT OF CARE TEST bedside glucose 133 mg/dL 70 - 105 high Not Available [facility] [address] [place], [address], 10/16/2024 04:58:18 11/17/19 25 11/16/2024 COMPL ETE METAB OLIC PANEL sodium 139 mmol/ L 136 - 145 Not Available [facility] [address] [place], [address], 11/17/2024 00:42:38 11/17/19 25 11/16/2024 COMPL ETE METAB OLIC PANEL potassium 4.6 mmol/ L 3.5 - 5.1 Not Available [facility] [address] [place], [address], 11/17/2024 00:42:38 11/17/19 25 11/16/2024 COMPL ETE METAB OLIC PANEL chloride 108 mmol/ L 98 - 107 high Not Available [facility] [address] [place], [address], 11/17/2024 00:42:38 11/17/19 25 11/16/2024 COMPL ETE METAB OLIC PANEL CO2 20 mmol/ L 22 - 28 low Not Available [facility] [address] [place], [address], 11/17/2024 00:42:38 11/17/19 25 11/16/2024 COMPL ETE METAB OLIC PANEL glucose 231 mg/dL 70 - 105 high Not Available [facility] [address] [place], [address], 11/17/2024 00:42:38 11/17/19 25 11/16/2024 COMPL ETE METAB OLIC PANEL BUN 16 mg/dL 7 - 18 Not Available [facility] [address] [place], [address], 11/17/2024 00:42:38 11/17/19 25 11/16/2024 COMPL ETE METAB OLIC PANEL creatinine 1.04 mg/dL 0.44 - 1.24 Not Available [facility] [address] [place], [address], 11/17/2024 00:42:38 11/17/19 25 11/16/2024 COMPL ETE METAB OLIC PANEL total protein 7.4 g/dL 6.0 - 8.3 Not Available [facility] [address] [place], [address], 11/17/2024 00:42:38 11/17/19 25 11/16/2024 COMPL ETE METAB OLIC PANEL albumin 4.0 g/dL 3.5 - 5.0 Not Available [facility] [address] [place], [address], 11/17/2024 00:42:38 11/17/19 25 11/16/2024 COMPL ETE METAB OLIC PANEL T bilirubin 1.5 mg/dL 0.2 - 1.0 high Not Available [facility] [address] [place], [address], 11/17/2024 00:42:38 11/17/19 25 11/16/2024 COMPL ETE METAB OLIC PANEL SGPT 27 IU/L 10 - 40 Not Available [facility] [address] [place], [address], 11/17/2024 00:42:38 11/17/19 25 11/16/2024 COMPL ETE METAB OLIC PANEL alk phos 128 IU/L 32 - 92 high Not Available [facility] [address] [place], [address], 11/17/2024 00:42:38 11/17/19 25 11/16/2024 COMPL ETE METAB OLIC PANEL SGOT 32 IU/L 10 - 42 Not Available [facility] [address] [place], [address], 11/17/2024 00:42:38 11/17/19 25 11/16/2024 COMPL ETE METAB OLIC PANEL calcium 9.6 mg/dL 8.4 - 10.2 Not Available [facility] [address] [place], [address], 11/17/2024 00:42:38 11/17/19 25 11/16/2024 COMPL ETE METAB OLIC PANEL age 54 yr Not Available [facility] [address] [place], [address], 11/17/2024 00:42:38 11/17/19 25 11/16/2024 COMPL ETE [...] se(CK D) is prese nt. Not Available [facility] [address] [place], [address], 11/17/2024 00:42:38 11/17/19 25 11/16/2024 CBC-C OMPLE TE WBC 10.6 10^3u L 4.0 - 10.8 Not Available [facility] [address] [place], [address], 11/17/2024 00:36:19 11/17/19 25 11/16/2024 CBC-C OMPLE TE RBC 4.73 10^6u L 3.80 - 5.20 Not Available [facility] [address] [place], [address], 11/17/2024 00:36:19 11/17/19 25 11/16/2024 CBC-C OMPLE TE hemoglobin 12.6 g/dL 11.7 - 16.0 Not Available [facility] [address] [place], [address], 11/17/2024 00:36:19 11/17/1911/16/2024 CBC-C OMPLE TE hematocrit 38.3 % 35.0 - 47.0 Not Available [facility] [address] [place], [address], 11/17/2024 00:36:19 11/17/19 25 11/16/2024 CBC-C OMPLE TE MCV 81 fL 80 - 100 Not Available [facility] [address] [place], [address], 11/17/2024 00:36:19 11/17/19 25 11/16/2024 CBC-C OMPLE TE MCH 27 pg 28 - 33 low Not Available [facility] [address] [place], [address], 11/17/2024 00:36:19 11/17/1911/16/2024 CBC-C OMPLE TE MCHC 33 g/dL 32 - 36 Not Available [facility] [address] [place], [address], 11/17/2024 00:36:19 11/17/1911/16/2024 CBC-C OMPLE TE RDW 14.5 % 11.5 - 15.5 Not Available [facility] [address] [place], [address], 11/17/2024 00:36:19 11/17/1911/16/2024 CBC-C OMPLE TE platelet 254 10^3u L 140 - 440 Not Available [facility] [address] [place], [address], 11/17/2024 00:36:19 11/17/1911/16/2024 CBC-C OMPLE TE MPV 8.0 fL 7.5 - 11.0 Not Available [facility] [address] [place], [address], 11/17/2024 00:36:19 11/17/1911/16/2024 CBC-C OMPLE TE %neutrophils 92.1 % 40.0 - 75.0 high Not Available [facility] [address] [place], [address], 11/17/2024 00:36:19 11/17/1911/16/2024 CBC-C OMPLE TE %lymphocytes 3.9 % 15.0 - 45.0 low Not Available [facility] [address] [place], [address], 11/17/2024 00:36:19 11/17/1911/16/2024 CBC-C OMPLE TE %monocytes 2.8 % 2.0 - 12.0 Not Available [facility] [address] [place], [address], 11/17/2024 00:36:19 11/17/1911/16/2024 CBC-C OMPLE TE %eosinophils 0.5 % 0.0 - 5.0 Not Available [facility] [address] [place], [address], 11/17/2024 00:36:19 11/17/19 25 11/16/2024 CBC-C OMPLE TE %basophils 0.7 % 0.0 - 2.0 Not Available [facility] [address] [place], [address], 11/17/2024 00:36:19 11/17/1911/16/2024 CBC-C OMPLE TE neutrophil 9.7 10^3/ uL 1.7 - 7.0 high Not Available [facility] [address] [place], [address], 11/17/2024 00:36:19 11/17/19 25 11/16/2024 CBC-C OMPLE TE lymphocyte 0.4 10^3/ uL 0.9 - 3.7 low Not Available [facility] [address] [place], [address], 11/17/2024 00:36:19 11/17/19 25 11/16/2024 CBC-C OMPLE TE monocyte 0.3 10^3/ uL 0.2 - 0.8 Not Available [facility] [address] [place], [address], 11/17/2024 00:36:19 11/17/19 25 11/16/2024 CBC-C OMPLE TE eosinophil 0.1 10^3/ uL 0.0 - 0.5 Not Available [facility] [address] [place], [address], 11/17/2024 00:36:19 11/17/19 25 11/16/2024 CBC-C OMPLE TE basophil 0.1 10^3/ uL 0.0 - 0.2 Not Available [facility] [address] [place], [address], 11/17/2024 00:36:19 11/17/1911/16/2024 CBC-C OMPLE TE mdw 20.94 0.00 - 20.00 high {CD] Not Available [facility] [address] [place], [address], 11/17/2024 00:36:19 11/17/19 25 11/16/2024 CBC-C OMPLE TE manual diff NOT INDICA MICHELLE Not Available [facility] [address] [place], [address], 11/17/2024 00:36:19 11/18/1911/20/2024 CULTU RE/UR INE results _CULT URE URINE _ Not Available [facility] [address] [place], [address], 11/20/2024 08:47:48 11/18/1911/20/2024 CULTU RE/UR INE final report CLEAN CATCH SPECIM EN _>100 ,000_ cfu/m l____ ___ 11/20.0 744.N NB. ___ Micro biolo gy Not Available [facility] [address] [place], [address], 11/20/2024 08:47:48 11/18/1911/20/2024 CULTU RE/UR INE [place]c [place] [id number] 0001 Colle ction Date 11/17 Colle ction Time 01:34 Speci men Note: Rece[place] pt Date Exam Id. No: [id number] Exam Statu s Compl etion Date 11/19 [...] E CLEAN CATCH SPECI MEN Not Available [facility] [address] [place], [address], 11/20/2024 08:47:48 11/18/1911/17/2024 URINA LYSIS color ORANGE normal : yellow Not Available [facility] [address] [place], [address], 11/17/2024 03:15:31 11/18/1911/17/2024 URINA LYSIS character HAZY normal : clear DIP INVAL ID DUE TO COLOR INTER FEREN CE MICRO SCOPI C Not Available [facility] [address] [place], [address], 11/17/2024 03:15:31 11/18/1911/17/2024 URINA LYSIS WBC/hpf TNTC normal : 0-5 hpf CULTU RE TO FOLLO W PER CRITE NEWOTN Not Available [facility] [address] [place], [address], 11/17/2024 03:15:31 11/18/19 25 11/17/2024 URINA LYSIS RBC/hpf 3-5 normal : 0-3 hpf Not Available [facility] [address] [place], [address], 11/17/2024 03:15:31 11/18/19 25 11/17/2024 URINA LYSIS epith/hpf 20-30 normal : 0-5 hpf Not Available [facility] [address] [place], [address], 11/17/2024 03:15:31 11/18/19 25 11/17/2024 URINA LYSIS cast/lpf NONE SEEN normal : 0-4 lpf Not Available [facility] Scheduling [address] [place], [address], 11/17/2024 03:15:31 11/18/19 25 11/17/2024 URINA LYSIS crystals NONE SEEN normal : negati ve Not Available [facility] [address] [place], [address], 11/17/2024 03:15:31 11/18/19 25 11/17/2024 URINA LYSIS bacteria 2+ normal : negati ve abnormal Not Available [facility] [address] [place], [address], 11/17/2024 03:15:31 11/18/19 25 11/17/2024 URINA LYSIS mucus 1+ Not Available [facility] [address] [place], [address], 11/17/2024 03:15:31 11/18/19 25 11/17/2024 RESP. CEPHE ID COV/F HOMA/RS V covid-19 PCR cepheid NEGATI VE _ normal : not detect ed Not Available [facility] [address] [place], [address], 11/17/2024 01:01:28 11/18/19 25 11/17/2024 RESP. CEPHE ID COV/F HOMA/RS V flu A PCR-cepheid NEGATI VE normal : negati ve Not Available [facility] [address] [place], [address], 11/17/2024 01:01:28 11/18/19 25 11/17/2024 RESP. CEPHE ID COV/F HOMA/RS V flu B PCR-cepheid NEGATI VE normal : negati ve Not Available [facility] [address] [place], [address], 11/17/2024 01:01:28 11/18/19 25 11/17/2024 RESP. CEPHE ID COV/F HOMA/RS V RSV PCR-cepheid NEGATI VE normal : negati ve This testi ng was perfo rmed using the XPERT XPRES S SARS- CoV-2 real time RT-PC R. This testi ng has been autho rized by FDA under an Emerg ency Use Autho rizat ion (EUA) . Not Available [facility] [address] [place], [address], 11/17/2024 01:01:28 08/05/20 24 08/04/2024 [facility] lumba r [facility] [address] [facility] [place] [address] EXAMIN ATION: MRI lumbar spine withou t contra st. TECHNI QUE: Sagitt al T1, T2, and STIR images , and axial T1 and T2 images of the lumbar spine were obtain ed. INDICA TION: Back pain radiat ing down left leg COMPAR MAPNREET: MRI lumbar spine 020 FINDIN GS: There [...] this report . Ordere d By: JAH Tucker onical ly Signed By: Ismael Rodriguez MD on 2023 4:45 PM Interp reted By: Titus Clarke MD, 2023 12:08 PM [email or web address] In Only - [facility] [address] [place], [address], 08/07/2024 20:53:33 08/07/20 24 08/04/2024 MRI, thora cic spine , w/o contr ast [facility] [address] [facility] [address] EXAMIN ATION: MRI of the thorac ic [...] ntous injury . Referr ed By: JAH Tucker onical ly Signed By: Pipe Rizzo MD on 2023 9:47 AM Interp reted By: Pipe Rizzo MD, 2023 9:39 AM [email or web address] In Only - [facility] [address] [place], [address], 08/07/2024 20:53:34 08/07/20 24 08/04/2024 MRI, cervi radha spine , w/o contr ast [facility] [address] [facility] [address] EXAMIN ATION: Cervic al spine MRI withou [...] By: Pipe Rizzo MD, 2023 9:52 AM In Only - [facility] [address] [facility], [place], [address], 08/07/2024 20:53:34 09/12/20 24 09/01/2024 CT cyst aspir ation [facility] [address] [place] [address] [phone] Name: TL WHITE Age: 53 : 1970 Exam Date: 2023 ACCESS ION: [id number] BLAISE CALDERA MD: STACEY JEFFREY EXAMIN ATION: [...] Flores MD Signed : 14:48 [facility] [address] [place] [address], [address], 09/13/2024 13:04:07 09/23/19 25 09/01/2024 [facility] [address] [place] [address] Name: TL WHITE Age: 54 : 1970 Exam Date: 2023 ACCESS ION: [id number] BLAISE CALDERA MD: STACEY JEFFREY EXAMIN ATION: [...] Aashish Flores MD ADDEND UM ACCESS ION: [id number] BLAISE CALDERA MD: STACEY JEFFREY. This report can be found on access ion #[id number] due to an incorr ect ordera ble. Prelim inary Report Dictat ed: 12:25 Mark FREEDMAN, Aashish mendieta Formerly [facility] [address] [place] [address], [address], 09/23/2024 15:15:23 10/14/19 25 10/14/2024 CT, abdom en + pelvi s, w/ contr ast No observ ation record ed. [address] - Radiology [address] [place], [address], 11/15/2024 12:25:18 12/02/19 25 12/01/2024 XR, chest , 2 view No observ ation record ed. [facility] Scheduling [address] [place], [address], 12/02/2024 09:46:46 12/06/19 25 09/01/2024 CT, conor nce [facility] [address] [place] [address] Name: TL WHITE Age: 54 : 1970 Exam Date: 2023 ACCESS ION: [id number] BLAISE CALDERA MD: STACEY JEFFREY EXAMIN ATION: [...] MD Signed : 10:48 Mark FREEDMAN, Aashish mendieta In Only - [facility] [address], [place], [address], 12/05/2024 13:59:24 12/06/19 25 09/01/[facility]24 [facility] [address] [place] [address] Name: TL WHITE Age: 54 : 1970 Exam Date: 2023 ACCESS ION: [id number] ORDERI WERNER MD: STACEY JEFFREY EXAMIN ATION: CT guided aspira tion of a thorac ic arachn oid cyst. DATE: Decemb er 2023 HISTOR Y: Arm pain, longst anding arachn oid cyst TECHNI QUE: The risks and benefi ts of arachn oid cyst drain were descri bed to the patien t and explic it permis khalida was obtain ed to kimani Villalba l steril e carole adrian techni que was [...] Aashish Flores MD ADDEND UM ACCESS ION: [id number] BLAISE CALDERA MD: STACEY JEFFREY This report can be found on access ion #[id number] due to an incorr ect ordera ble. Final Report Dictat ed: 12:25 Aashish Flores MD Signed : 10:48 Aashish Flores MDposatchivi Formerly [facility] [address] [place] [address], [address], 12/05/2024 13:59:25 12/12/19 25 12/11/2024 XR, knee [facility] [address] [place] [address] Name: TL WHITE Age: 54 : 1970 Exam Date: 2024 ACCESS ION: [id number] BLAISE CALDERA MD: DILIA POTTS EXAMIN ATION: [...] was dictat ed remote ly by a [facility] Radiol ogist in [place], [place]. Final Report Dictat ed: 07:59 Anjel Smith MD Signed : 07:59 Luis FREEDMAN, Anjel Arvizu INTERFACE In Only - [facility] [address] [place] [address], [address], 12/11/2024 09:03:06 12/12/19 25 12/11/2024 XR, shoul [facility] [address] [place] [address] Name: TL WHITE Age: 54 : 1970 Exam Date: 2024 ACCESS ION: [id number] ORDERI WERNER FREEDMAN: DILIA POTTS EXAMIN ATION: [...] 2023. Final Report Dictat ed: 07:59 Preuse n Antoni FREEDMAN Signed : 07:59 Rocio ryan MD, Antoni EGAN [facility] [address] [place] [address], [address], 12/11/2024 09:03:14 Result Notes None recorded. Problems Name Problem SNOMED Code Status Onset Date Resolution Date Notes Provider Name and Address Organization Details Recorded Time Migraine 29432814 Active 2020 [facility] 4 17:00:48 Hypertens jozef disorder 92183778 Active 2020 [facility] 4 17:00:48 Atypical squamous cells of undetermi tiffanie significa nce on cervical Papanicol aou smear 405450355 Active 2020 [facility] 4 17:00:48 Preinfarc tion syndrome 8992467 Active 2022 [facility] 4 17:00:48 Second degree uterine prolapse 3944930 Active 2022 [facility] 4 17:00:48 Abdominal pain 96595155 Active 2023 Eren Oswald PA-C [address] [place] [address], [address] , [facility] 4 13:05:40 Thoracic radiculop athy 41669526 Active 2023 Kimi Mathis APRN, PHLEBOTOMY SPECIALIST [address] [place] [address], [address] , [facility] 4 14:46:37 Cervical radiculop athy 49515541 Active 2023 Kimi Mathis APRN, PHLEBOTOMY SPECIALIST [address] [place] [address], [address] , [facility] 4 14:46:47 Lumbar spondylos is 224851335 Active 2023 Pauly Vizcaino MD [address] [place] [address], [address] , [facility] 5 14:49:06 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 01741216361 9106 Active 2023 following with endocrino logy Pauly Vizcaino MD [address] [place] [address], [address] , [facility] 5 14:52:00 Spinal arachnoid cyst 699645259 Active 2023 Pauly Vizcaino MD [address] [place] [address], [address] , [facility] 5 14:51:11 Morbid obesity 623819888 Active 2024 Pauly Vizcaino MD [address] [place] [address], [address] , [facility] 5 14:50:22 Gastropar esis syndrome 655314531 Active 2024 Pauly Vizcaino MD [address] [place] [address], [address] , [facility] 5 14:53:47 Gastroeso phageal reflux disease 607735694 Active 2024 Pauly Vizcaino MD [address] [place] [address], [address] , [facility] 5 14:53:56 Dyspnea 683045923 Active 2024 Pauly Vizcaino MD [address] [place] [address], [address] , [facility] 5 15:02:35 Pain of left shoulder region Active 2024 Pauly Vizcaino MD [address] [place] [address], [address] , [facility] 5 15:11:16 Bilateral cramp of muscle of lower limbs 50665160990 410542 Active 2024 Pauly Vizcaino MD [address] [place] [address], [address] , [facility] 5 15:12:21 Fibromyal chuck 886373622 Active 2024 Pauly Vizcaino MD [address] [place] [address], [address] , [facility] 5 15:19:57 Recurrent major depressio n in remission 17401215 Active 2024 Pauly Vizcaino MD [facility] [place] [address], [address] , [facility] 5 15:24:34 Primary insomnia 3528942 Active 2024 Paluy Vizcaino MD [facility] [place] [address], [address] , [facility] 5 15:25:40 Swelling of lower limb 321056553 Active 2024 Pauly Vizcaino MD [address] [place] [address], [address] , [facility] 5 16:16:03 Coronary arteriosc lerosis 18165749 Active 2023 [facility] 4 16:47:20 Chest pain 42530052 Active 2022 Yolande Riley [facility] 4 17:00:48 Essential hypertens ion 75139761 Active 2023 [facility] 4 16:47:35 Hyperchol esterolem ia 17620864 Active 2023 [facility] 4 16:47:54 Notes:Some problems listed i n Document: #[id number] could not be added to this patient's [...] 08/04/2024 MRI, lumbar spine, w/o contrast completed [email or web address] Sc Only - [facility] [address] [place], [address], 08/07/2024 20:53:33 08/04/2024 MRI, thoracic spine, w/o contrast completed [email or web address] Sc Only - [facility] [address] [place], [address], 08/07/2024 20:53:34 08/04/2024 MRI, cervical spine, w/o contrast completed [email or web address] Sc Only - [facility] [address] [place], [address], 08/07/2024 20:53:34 09/01/2024 CT cyst aspiration completed lacakposatchivi Sc Only - [facility] [address] [place] [address], [address], 09/13/2024 13:04:07 09/01/2024 CT cyst aspiration completed lacakposatchivi Sc Only - [facility] [address] [place] [address], [address], 09/23/2024 15:15:23 10/14/2024 CT, abdomen + pelvis, w/ contrast completed [address] - Radiology [address] [place], [address], 11/15/2024 12:25:18 12/01/2024 XR, chest, 2 view completed [facility]iology Scheduling [address] [place], [address], 12/02/2024 09:46:46 09/01/2024 CT, guidance completed lacakposatchivi Sc Only - [facility] [address] [place] [address], [address], 12/05/2024 13:59:24 09/01/2024 CT cyst aspiration completed lacakposatchivi Sc Only - [facility] [address] [place] [address], [address], 12/05/2024 13:59:25 12/11/2024 XR, knee completed INTERFACE Sc Only - [facility] [address] [place] [address], [address], 12/11/2024 09:03:06 12/11/2024 XR, shoulder completed INTERFACE Sc Only - [facility] [address] [place] [address], [address], 12/11/2024 09:03:14 Procedure Notes None recorded. Medical Equipment None Reported. Allergies Allergen ID Allergen Name Allergen Category Reaction Reaction Severity Criticality Documentation Date Start Date Code Code System Note Provider Name and Address Organization Details Recorded Time 6068131 fentanyl medicatio n headache Not available Not available 10/14/20232012 4337 RxNorm React ion: Heada syeda; Nause a; Vomit ing; Comme nt: React ion Date: 23 Aug 2013 Annot ation s: MOORADHA ER, JUVENCIO 10Dec 2012 9:08P M Per pt repor t.; ; Not Available Not Available Not Available 4072151 prochlorp erazine medicatio n Not available Not available Not available 05/13/20242017 8704 RxNorm Other react ions and sever ities : 'Anxi ety'. Not Available Not Available Not Available 2224984 sumatript an medicatio n itching Not available Not available 05/13/20242017 03492 RxNorm Not Available Not Available Not Available 6747239 metoclopr amide Not available other Not available Not available 05/13/20242022 6915 RxNorm Not Available Not Available Not Available 7580168 diphenhyd ramine hydrochlo ride medicatio n rash Not available Not available 05/13/20242017 1362 RxNorm Other react ions and sever ities : 'Anxi ety'. Not Available Not Available Not Available 9560277 Duragesic medicatio n headache Not available Not available 06/22/20242012 45383 8 RxNorm React ion: Heada syeda; Nause a; Vomit ing; Comme nt: React ion Date: 23 Aug 2013 Annot ation s: JUVENCIO SIEGEL 2012 9:08P M Per pt repor t.; ; Not Available Not Available Not Available 2255897 Compazine medicatio n other Not available Not available 11/02/202430483 6 RxNorm irrit abili ty Not Available Not Available Not Available 365328 Biaxin medicatio n nausea Not available Not available 10/12/2023200672 9 RxNorm React ion: Nause a; Not Available Not Available Not Available 905169 sumatript an succinate medicatio n Not available Not available Not available 10/12/20232006 32084 RxNorm React ion: Short ness of breat h; Arrhy thmia ; Not Available Not Available Not Available 994444 ciproflox acin hydrochlo ride medicatio n Not available Not available Not available 10/12/20232006 75702 RxNorm React ion: Synco pe; Short ness of breat h; Not Available Not Available Not Available 130968 Demerol medicatio n Not available Not available Not available 10/12/20232008 88144 1 RxNorm Comme nt: Annot ation s: GRUND Y, BRAND ON 2008 3:38P M NAUSE A; ; Not Available Not Available Not Available 371538 morphine sulfate medicatio n Not available Not available Not available 10/12/20232008 93229 RxNorm Comme nt: Annot ation s: GRUND Y, BRAND ON 2008 3:39P M NAUSE A; ; Not Available Not Available Not Available 890115 hydromorp basim hydrochlo ride medicatio n Not available Not available Not available 10/12/20232008 70303 7 RxNorm Comme nt: Annot ation s: ISAAC Chino, BRAND ON 2008 3:39P M NAUSE A; [...] completed Not Available Not Available Not Available pregabalin 50 mg capsule TAKE ONE CAPSULE BY MOUTH THREE TIMES DAILY for neuralgia active Not Available Not Available No t Available ranolazine ER 500 mg tablet,exte nded release,12 hr TAKE ONE TABLET TWICE DAILY 06/15 completed Not Available Not Available Not Available Lantus Solostar U-100 Insulin 100 unit/mL (3 mL) subcutaneou s pen Inject 80 units by sub-q route. 06/15 completed Not Available Not Available Not Available Humalog KwikPen (U-100) Insulin 100 unit/mL subcutaneou s Inject 3 times a day by sub-q route. 09/155 completed Not Available Not Available Not Available [...] Available Not Available Not Available Dexcom G7 Interventional Physician USE PER MANUFACTU RER DIRECTION S active [...] Updated DateTime 4 170.18 cm 44.3 kg/m2 046818. 64 g 67 /min 97 % 97 % 110 mm[Hg] 60 mm[Hg] Tana Josesitodaniel [facility] 4 12:24:18 Date Recorded Body height Body mass index (BMI) Body weight Body temperature Respiratory rate Oxygen saturation Oxygen saturation in Arterial blood by Pulse oximetry Heart rate Systolic blood pressure Diastolic blood pressure Provider Name and Address Organization Details Last Updated DateTime 5 170.18 cm 44.4 kg/m2 561797. 8 g 97.5 [degF] 20 /min 97 % 97 % 67 /min 128 mm[Hg] 70 mm[Hg] Brenda Natarajan [facility] 5 14:45:55 Date Recorded Body height Body mass index (BMI) Body weight Body temperature Respiratory rate Oxygen saturation Oxygen saturation in Arterial blood by Pulse oximetry Heart rate Systolic blood pressure Diastolic blood pressure Provider Name and Address Organization Details Last Updated DateTime 170.18 cm 44.4 kg/m2 658504. 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 Yes [email or web address] Information not available 06/13/2024 What Was The Date Of Your Most Recent Tobacco Screening? 06/15/2024 [email or web address] Information not available 06/13/2024 What Is Your Relationship Status? [email or web address] Information not available 06/13/2024 Do You Use Any Illicit Or Recreational Drugs? No [email or web address] Information not available 06/13/2024 Sex: Unknown Functional Status Question Answer Note LastModified by [employer] Details LastModified Time What is your [...] Cancer Y Stroke N Thyroid Problems N Asthma Y Depression Y COPD N Anemia Y Seizures N Heart Disease N Fibromyalgia Y Osteoporosis N Kidney Disease N Gynecological History Statement/Question Response Abnormal Pap Y If Post Menopausal, Age at Menopause 51 Date of Last Mammogram 04/14/2023 Date of Last Pap Smear 09/18/2022 Age at Menarche 13 Current Control Method None Obstetrics History GPAL:G 0 P 0 0 0 0 Immunizations Vaccine Type Date Status Note Provider Nam e and Address Organization Details Recorded Time Influenza, recombinant, quadrivalent, PF 1 completed Brenda Natarajan [facility] 11/02/2024 14:40:15 Influenza, recombinant, quadrivalent, PF 0 [facility] 14:40:15 zoster recombinant 1 completed Brenda Natarajan [facility] 11/02/2024 14:40:15 zoster recombinant 1 completed Brenda Natarajan [facility] 11/02/2024 14:40:15 COVID-19, mRNA, LNP-S, PF, 100 mcg/0.5mL dose or 50 mcg/0.25mL dose [facility] 11/02/2024 14:40:15 COVID-19, mRNA, LNP-S, PF, 100 mcg/0.5mL dose or 50 mcg/0.25mL dose 1 completed [facility] 11/02/2024 14:40:15 COVID-19, mRNA, LNP-S, PF, 100 mcg/0.5mL dose or 50 mcg/0.25mL dose 1 completed Brenda [facility] 11/02/2024 14:40:15 pneumococcal polysaccharide PPV23 1 completed [facility] 11/02/2024 14:40:15 influenza, unspecified formulation 4 completed [facility] 11/02/2024 14:40:15 influenza, unspecified formulation 4 completed [facility] 11/02/2024 14:40:15 influenza, unspecified formulation 3 completed [facility] 11/02/2024 14:40:15 Tdap 7 [facility] 11/02/2024 14:40:15 Influenza, split virus, trivalent, preservative 1 completed Brendaaraseli Natarajan [facility] 11/02/2024 14:40:15 Influenza, split virus, quadrivalent, PF 7 [facility] 11/02/2024 14:40:15 Past Encounters Encounter ID Performer Location Encounter Start Date Encounter Closed Date Diagnosis/Indication Diagnosis SNOMED-CT Code Diagnosis ICD10 Code Diagnosis Note [id number] Drake Mcneal MD [facility] ([place]) [address] [place] [address] 05/17/2024 13:49:24 05/17/2024 14:46:03 Chest pain 44652792 R07.9 [id number] Eren Oswald PA-C [address] [facility] ([place]) [address] [facility] [place] [address] 06/15/2024 14:10:45 06/15/2024 16:32:35 Abdominal pain 41229558 R10.9 Type 2 osmin betes mellitus 57489803 E11.9 Coronary arteriosclerosis 72870792 I25.10 [id number] Stacey ahmadi MD [address] [place] [address] [facility] ([place]) [address] [place] [address],[address] [place] [address] 06/21/2024 12:42:22 06/21/2024 16:39:19 Thoracic radiculopathy 24403235 M54.14 Cervical radiculopathy 38690225 M54.12 Lumbar spondylosis 38341 0009 M47.896 [id number] Bina Traore MD [facility] ([place]) [address] [place] [address] 07/05/2024 14:39:55 07/05/2024 15:35:42 Neuropathy due to type 2 diabetes mellitus 5746992932 10633 E11.40 Z79.4 [id number] Stacey ahmadi MD [address] [place] [address] [facility] [address] [place] [address],[address] [place] [address] 08/04/2024 12:16:15 08/04/2024 14:29:11 Spinal arachnoid cyst 965065016 G96.198 [id number] Brenda Marino [facility] ([place]) [address] [place] [address] 08/04/2024 15:26:47 08/04/2024 16:07:31 Type 2 diabetes mellitus 22806055 E11.9 Patient was seen in office for [...] ing of today's education and discussion . [id number] [facility] ([place]) [address] [place] [address] 08/29/2024 14:23:40 08/29/2024 16:23:00 Type 2 diabetes mellitus 58128232 E11.9 Patient came in today for Omnipod [...] then, patient had no questions or concerns. [id number] Pauly Vizcaino MD [facility] ([place]) [address] [place] [address] 11/02/2024 14:29:38 11/02/2024 15:23:49 Screening mammography 73352541 Z12.31 History an d physical examination, annual for health maintenance 18043628 Z00.00 First enco unter by subject 141405991 Z76.89 Coronary arteriosclerosis 46922839 I25.10 Essential hypertension 81801352 I10 Morbid obesity 669589047 E66.01 Neuropathy due to type 2 diabetes mellitus 2829188952 96012 E11.40 Z79.4 Spinal arachnoid cyst 25 1553613 G96.198 Lumbar spondylosis 03558 0009 M47.896 Hypercholesterolemia 136 67058 E78.00 Gastroesop hageal reflux disease 983831829 K21.9 Dyspnea 128247481 R06.02 Gastropare sis syndrome 709046890 K31.84 Pain of le ft shoulder region 3616203216 M25.512 Bilateral cramp of muscle of lower limbs 8799829029 0525849 R25.2 Fibromyalgia 562351590 M 79.7 History of asthma 585271 007 Z87.09 Recurrent major depression in remission 66127203 F33.40 Primary insomnia 1589753 F51.01 [id number] Pauly Vizcaino MD [facility] ([place]) [address] [place] [address] 12/01/2024 15:54:07 12/01/2024 17:05:19 Dyspnea 808701642 R06.02 Swelling o f lower limb 850353746 M79.89 Health Concerns Section Related Observation LastModified by Organization Detai ls LastModified Time None Recorded Concern Status LastModified by Organization Details LastModified Time None Recorded Advance Directives Directive Y: Payers Encounter Date Sequence Insurance Name Policy Number Policy Garcia Covered Member ID Garcia Member ID Guarantor Name 08/04/2024 2 [place] [facility] Leti P Rice [id number] Leti Esther Rice 08/04/2024 1 [facility] (O) [id number] Leti P Rice [id number] Leti Esther Rice 08/04/2024 2 [place] [facility] Leti P Rice [id number] Leti Esther Rice 08/04/2024 1 [facility] (O) [id number] Leti P Rice [id number] Leti Esther Rice 08/29/2024 2 [place] [facility] Leti P Rice [id number] Leti Esther Rice 08/29/2024 1 [facility] (PPO) [id number] Leti P Rice [id number] Leti Esther Rice 11/02/2024 2 [place] [facility] Leti P Rice [id number] Leti Esther Rice 11/02/2024 1 [facility] (MEDICARE REPLACEMENT/A DVANTAGE - PPO) [id number] Leti P Rice [id number] Leti Esther Rice 12/01/2024 2 [place] [facility] Leti P Rice [id number] Leti Esther Rice 12/01/2024 1 [facility] (MEDICARE REPLACEMENT/A DVANTAGE - PPO) [id number] Leti P Rice [id number] Leti Esther Rice Notes Date Note Type Note Provider Name and Address Organization Details Recorded Time 4 text/html Ms. White is a 53 year old female who is a patient of Dr. Lagos returns for follow up with MRIs of the cervical, thoracic and lumbar spine performed at [facility] prior to the appointment. The patient rates [...] MRI of the thoracic spine with [facility] ([place]; 11/2021) showed stable location of the T5-6 [...] thoracic and lumbar without contrast (patient preferred [facility] and requested Valium for claustrophobia). I also recommended weight loss, as a BMI of 44 added significant risk to any surgical procedure. She stated she was seeing her concreter on 08/24/24 and planned to ask about an insulin pump. She told me that she was likely unable to tolerate other weight loss medications due to a history of gastroparesis. I would contact her with imaging results and further plan of care, which included repeat cyst aspiration vs. laminectomy with fenestration of arachnoid cyst. Stacey beard MD [address] [place] [address], [phone], [facility] 08/04/2024 20:27:36 5 text/html Leti Gallego a [...] arm. She had x rays done in [employer] at [facility] and they came back okay. She has been taking ibuprofen, tylenol and lidocaine patches. Nothing seems to help much. She has had some ER visits because of the pain. Has not done any PT. She was hospitalized in [place] in May 2024 for chest pain and pneumonia. She was to follow up with pulmonology, but she doesn't want to travel to [place]. She is hoping for a referral to a [place] provider. She also reports that she has [...] neurosurg, GI Pauly Vizcaino MD [address] [place], [address], [facility] 11/03/2024 10:26:36 5 text/html The patient is [...] do a stress test with cardiology. Pauly Vizcanio MD [address] [place] [address], [phone], [facility] 12/05/2024 13:02:18 OBGyn Episode No OBEpisode recorded.
--- OUTSIDE RECORDS SUMMARY | 2025-01-04 18:34 | XMS_ITS | Encounter Summary ---
Author Organization [facility] Address [address] [place] [address] Care Team Providers Care Inlayer Name Role Phone Hero Bearden MD Unavailable Adele Lagos MD Primary Care Provider [phone] Ce Villalobos MD Unavailable Brissa Tijerina MD Primary Care Provider + Encounter Details Date Type Department Care Team (Late st Contact Info) Description 04/23/2023 Hospital Follow-up Call [facility] [address] [place] [address] Kalyn New RN Social History Tobacco Use Types Packs/Day Years Used Date Smoking Tobacco: Never Smokeless Tobacco: Never Alcohol Use Standard Drinks/Week Comments No 0 (1 standard drink = 0.6 oz pur e alcohol) Humiliation, Afraid, Rape, and Kick questionnair e Answer Date Recorded Within the last year, have y ou been afraid of your partner or ex-partner? No 04/18/2023 Within the last year, have y ou been humiliated or emotionally abused in other ways by your partner or ex-partner? No Within the last year, have y ou been kicked, hit, slapped, or otherwise physically hurt by your partner or ex-partner? No 04/18/2023 Within the last year, have y ou been raped or forced to have any kind of sexual activity by your partner or ex-partner? No 04/18/2023 Overall Financial Resource Strain (CARDIA) Answe r Date Recorded How hard is it for you to pa y for the very basics like food, housing, medical care, and heating? Somewhat hard 04/18/2023 PHQ-2 Answer Date Recorded Patient Health Questionnaire-2 Score 0 10/31/2022 [facility] [place] [facility] Occupat ional [facility] - Occupational Stress Questionnaire Answer Date Recorded Do you feel stress - tense, restless, nervous, or anxious, or unable to sleep at night because your mind is troubled all the time - these days? Rather much 04/18/2023 Exercise Vital Sign Answer Date Recorde d On average, how many days pe r week do you engage in moderate to strenuous exercise (like a brisk walk)? 2 days 04/18/2023 On average, how many minutes do you engage in exercise at this level? 10 min 04/18/2023 Hunger Vital Sign Answer Date Recorded Within the past 12 months, y ou worried that your food would run out before you got the money to buy more. Sometimes true Within the past 12 months, t he food you bought just didn't last and you didn't have money to get more. Sometimes true 01/2023 PRAPARE - Transportation Answer Date Re corded In the past 12 months, has l ack of transportation kept you from medical appointments or from getting medications? No 01/2023 In the past 12 months, has l ack of transportation kept you from meetings, work, or from getting things needed for daily living? No 04/18/2023 Housing Stability Vital Sign Answer Adelso e Recorded In the last 12 months, was t here a time when you were not able to pay the mortgage or rent on time? Yes 04/18/2023 In the last 12 months, how many places have you lived? 2 04/18/2023 In the last 12 months, was t here a time when you did not have a steady place to sleep or slept in a fci (including now)? Yes 04/18/2023 Comments No Sex and Gender Information Value Date Recorded Sex Assigned at Female 09/30/2024 10:51 PM [employer] Legal Sex Female 7:02 PM CDT Gender Identity Not on file Sexual Orientation Not on file documented as of this encounter Functional Status * Are you deaf or do you have serious difficulty hearing Answer Date of Assessment Author Status No 04/18/2023 1:00 AM CDT Pauline Grimaldo R N Active * Are you blind or do you have serious difficulty seeing, even when wearing glasses? Answer Date of Assessment Author Status No 04/18/2023 1:00 AM CDT Pauline Grimaldo R N Active * Do you have serious difficulty walking or climbing stairs? Answer Date of Assessment Author Status No 04/18/2023 1:00 AM CDT Pauline Grimaldo R N Active * Do you have difficulty dressing or bathing? Answer Date of Assessment Author Status No 04/18/2023 1:00 AM CDT Pauline Grimaldo R N Active * Because of a physical, mental, or emotional condition, do you have difficulty doing errands alone such as visiting a doctor's office or shopping? Answer Date of Assessment Author Status No 04/18/2023 1:00 AM CDT Pauline Grimaldo R N Active documented as of this encounter Mental Status * Because of a physical, mental, or emotional condition, do you have serious difficulty concentrating, remembering, or making decisions? Answer Entry Date Author Status No 04/18/2023 1:00 AM CDT Pauline Grimaldo R N Active documented in this encounter Plan of Treatment Not on file documented as of this encounter Visit Diagnoses Not on filedocumented in this encounter Care Teams Inlayer Relationship Specialty Start Date End Date Adele Lagos MD [address] [place] [address] PCP - General INTERNAL MEDICINE 06/16/22 11/02/24 Brissa Tijerina MD [address] [place] [address] PCP - General FAMILY PRACTICE 11/03/24 Hero Bearden MD [facility] 04/04/22 Ce Villalobos MD [address] [place] [id number] [place] [employer] T[employer]er CARDIOVASCULAR DISEASE 07/18/22 documented as of this encounter
--- OUTSIDE RECORDS SUMMARY | 2025-01-04 18:34 | XMS_ITS | Clinical Summary ---
Author Organization [facility] Address [address] [place] [address] Care Team Providers Care Gold Leaf Gilder Name Role Phone Prem Bearden MD Unavailable Ce Villalobos MD Unavailable Brissa Tijerina MD Primary Care Provider + Allergies Active Allergy Reactions Criticality Noted Date Comments Clarithromycin Vomiting,Nausea Only High 01/20/2007 Diphenhydramine Anxiety,Rash High 03/16/2018 Meperidine Hcl Unknown 03/01/2009 Metoclopramide Other (see comment) 10/31/2022 with IM/IV injection-anxiety inducing Strawberries Shortness of Breath High 07/19/2024 Sumatriptan Itching,Unknown 01/20/2007 Other reaction(s): N/A * Medications amLODIPine 5 MG tablet Take 1 tablet (5 mg total) by mouth nightly at bedtime. 12/19/2020 Active atorvastatin 40 MG tablet Take 1 tablet (40 mg total) by mouth nightly at bedtime. 12/19/2020 Active doxepin (SINEQUAN) 50 MG capsule Take 1 capsule (50 mg total) by mouth nightly at bedtime. Active pantoprazole EC (PROTONIX) 40 MG tablet Take 1 tablet (40 mg total) by mouth nightly at bedtime. Active insulin glargine (LANTUS) 100 UNIT/ML injection (PEN) Inject 80 Units into the skin nightly at bedtime. Active citalopram (CELEXA) 40 MG tablet Take 1 tablet (40 mg total) by mouth nightly at bedtime. Active ONETOUCH ULTRA test strip use 1 strip to check glucose three times daily 07/01/2022 Active RELION INSULIN SYRINGE 31G X 15/64 1 ML Misc USE 1 NEW SYRINGE 4 TIMES DAILY AND NEEDED 08/22/2022 Active dicyclomine (BENTYL) 20 MG tablet Take 1 tablet (20 mg total) by mouth 2 (two) times a day. Active tiZANidine (ZANAFLEX) 4 MG tablet Take 1 tablet (4 mg total) by mouth nightly at bedtime. Active HUMALOG KWIKPEN 100 UNIT/ML injection (PEN) Inject into the skin 3 (three) times daily before meals. Sliding scale (15-25 units with each meal) 01/29/2024 Active metoprolol succinate ER (TOPROL-XL) 100 MG 24 hr tablet Take 1 tablet (100 mg total) by mouth nightly at bedtime. 05/29/2023 Active HYDROcodone-angel taminophen (NORCO) 5-325 MG tabletIndicatio ns:Acute Pain < 7 Day Supply Take 1-2 tablets by mouth every 6 (six) hours as needed. Indications: Acute Pain < 7 Day Supply 16 tablet 05/10/2024 Active ketorolac (TORADOL) 10 MG tablet Take 1 tablet (10 mg total) by mouth every 6 (six) hours as needed for Pain. Active Active Problems Problem Noted Date Diagnosed Date Unstable angina ([facility]) 05/07/2023 Chest pain 04/18/2023 ASCUS with positive high risk HPV cervical 11/06 Overview (11/06/2022): 10/31/2022 - ASCUS with positive high risk HPV. Second degree uterine prolapse 10/31/2022 ASCUS of cervix with negative high risk HPV 07/0 05/2021 Overview (03/22/2021): 03/15/2021 Migraine 02/14/2021 HTN (hypertension) 02/14/2021 Diabetes mellitus type 2, controlled ([facility]) 02/14/2021 Resolved Problems Problem Noted Date Diagnosed Date Resolved Date Cervical high risk human pap illomavirus (HPV) DNA test positive 02/14/2021 02/23/2023 Overview (03/15/2021): Pap with positive high risk HPV 05/02/2019 and 11/17/2019. Encounters Date Type Department Care Team Description 12/11/2024 4:19 AM CDT - 12/11/2024 5:16 AM CDT Emergency [facility] Emergency [address] [place] [address] Ariana Hearn MD Fall Discharge Disposition: Home or Self Care (Routine Discharge) 12/11/2024 Travel 11/29/2024 8:46 PM CDT - 11/29/2024 9:11 PM CDT Emergency [facility] Emergency [place] [address] Ghulam Stiles MD Back Pain; Neck Pain Discharge Disposition: Home or Self Care (Routine Discharge) 11/29/2024 Travel 11/22/2024 9:08 PM CDT - 11/22/2024 10:16 PM CDT Emergency [facility] Emergency Services [address] [place] [address] Dario Ricardo MD Back Pain (Chronic back pain) Discharge Disposition: Home or Self Care (Routine Discharge) 11/22/2024 Travel 11/12/2024 9:19 PM BUTTING SAW OPERATOR - 11/12/2024 9:42 PM BUTTING SAW OPERATOR Emergency [facility] Emergency Services [address] [place] [address] Nishi Ryder MD Back Pain (/) Discharge Disposition: Home or Self Care (Routine Discharge) 11/12/2024 Travel 11/02/2024 10:58 PM BUTTING SAW OPERATOR - 11/03/2024 12:16 AM BUTTING SAW OPERATOR Emergency [facility] Emergency Services [address] [place] [address] Dario Ricardo MD Back Pain Discharge Disposition: Home or Self Care (Routine Discharge) 11/02/2024 Travel 10/21/2024 8:38 PM BUTTING SAW OPERATOR - 10/21/2024 10:21 PM BUTTING SAW OPERATOR Emergency [facility] Emergency Services [address] [place] [address] Dario Ricardo MD Back Pain Discharge Disposition: Home or Self Care (Routine Discharge) 10/21/2024 Travel 10/18/2024 5:34 PM BUTTING SAW OPERATOR - 10/18/2024 6:02 PM BUTTING SAW OPERATOR Emergency [facility] Emergency Room [address] [place] [address] Camila Pimentel NP Back Pain Discharge Disposition: Home or Self Care (Routine Discharge) 10/18/2024 Travel 10/11/2024 5:59 PM BUTTING SAW OPERATOR - 10/11/2024 7:36 PM [facility] Emergency [place] [facility] Room [address] [place] [address] Jordan Crenshaw MD Back Pain Discharge Disposition: Home or Self Care (Routine Discharge) 10/11/2024 Travel 10/07/2024 7:22 PM BUTTING SAW OPERATOR - 10/07/2024 8:07 PM [facility] Emergency [facility] Emergency Services [address] [place] [address] Rhea Sierra MD Back Pain Discharge Disposition: Home or Self Care (Routine Discharge) 10/07/2024 Travel from Last 3 Months Family History Medical History Relation Comments Diabetes Father Heart Disease Father Cancer Mother Heart Disease Mother Relation Status Comments Father Mother Social History Tobacco Use Types Packs/Day Years Used Date Smoking Tobacco: Never Smokeless Tobacco: Never Tobacco Cessation:Counseling Given: Not Answered Alcohol Use Standard Drinks/Week Comments No 0 (1 standard drink = 0.6 oz pur e alcohol) Humiliation, Afraid, Rape, and Kick questionnair e Answer Date Recorded Within the last year, have y ou been afraid of your partner or ex-partner? No 05/08/2023 Within the last year, have y ou been humiliated or emotionally abused in other ways by your partner or ex-partner? No Within the last year, have y ou been kicked, hit, slapped, or otherwise physically hurt by your partner or ex-partner? No 05/08/2023 Within the last year, have y ou been raped or forced to have any kind of sexual activity by your partner or ex-partner? No 05/08/2023 Overall Financial Resource Strain (CARDIA) Answe r Date Recorded How hard is it for you to pa y for the very basics like food, housing, medical care, and heating? Somewhat hard 05/08/2023 PHQ-2 Answer Date Recorded Patient Health Questionnaire-2 Score 0 10/31/2022 [facility] - Occupational Stress Questionnaire Answer Date Recorded [...] have money to get more. Sometimes true PRAPARE - Transportation Answer Date Re corded In the past 12 months, has l ack of transportation kept you from medical appointments or from getting medications? No 04/15 In the past 12 months, has l ack of transportation kept you from meetings, work, or from getting things needed for daily living? No 05/10/2023 Housing Stability Vital Sign Answer Adelso e Recorded In the last 12 months, was t here a time when you were not able to pay the mortgage or rent on time? Yes 05/08/2023 In the last 12 months, how many places have you lived? 2 05/08/2023 In the last 12 months, was t here a time when you did not have a steady place to sleep or slept in a prison (including now)? Yes 05/08/2023 Comments No Sex and Gender Information Value Date Recorded Sex Assigned at Female 09/30/2024 10:51 PM BUTTING SAW OPERATOR Legal Sex Female 7:02 PM CDT Gender Identity Not on file Sexual Orientation Not on file Last Filed Vital Signs Vital Sign Reading Time Taken Comments Blood Pressure 197/78 12/11/2024 4:18 AM CDT Pulse 72 12/11/2024 4:18 AM CDT Temperature 36.5 C (97.7 F) 12/11/2024 4:18 AM CDT Respiratory Rate 16 12/11/2024 4:18 AM CDT Oxygen Saturation 97% 12/11/2024 4:18 AM CDT Inhaled Oxygen Concentration - - Weight 127 kg (280 lb) 12/11/2024 4:15 AM CDT Height 170.2 cm (5' 7 ) 12/11/2024 4:15 AM CDT Body Mass Index 43.85 12/11/2024 4:15 AM CDT Plan of Treatment Health Maintenance Due Date Last Done Comments ASCVD Statin 1970 Colorectal Cancer Screening Colonoscopy (10 Years) 1970 Kidney Health Evaluation 1970 Diabetes: Retinopathy Eye Exam 1988 Hepatitis C 1988 Hepatitis B Vaccines (1 of 3 - 19+ 3-dose series) 1989 DTaP, Tdap and Td Vaccines (2 - Td or Tdap) 05/31/2017 05/31/2007 Pneumococcal Vaccine: 50+ Years (2 of 2 - PCV) 10/02/2021 10/02/2020 Mammogram Screening 11/16/2021 11/17/2019 Hemoglobin A1C 10/18/2023 04/17/2023 Annual Physical 10/31/2023 10/31/2022 ASCVD LDL 04/18/2024 04/18/2023, 04/23/2010 Lipid Panel 04/18/2024 04/18/2023, 04/23/2010 COVID-19 Vaccine ( season) 2024 09/13/2021, 12/14/2020, 11/16/2020 Cervical Cancer Screening Pap Smear (Age 30 to 64) Every 3 Years 10/31/2025 10/31/2022, 03/15/2021 Cervical Cancer Screening Pap with HPV Testing (Age 30 to 64) Every 5 Years 10/31/2027 10/31/2022, 03/15/2021, 05/02/2020, Additional history exists Cervical Cancer Screening with HPV 10/31/2027 Zoster Vaccines Completed 09/13/2021, 06/16/2021 Meningococcal B Vaccine Aged Out No l onger eligible based on patient's age to complete this topic Meningococcal Vaccine Aged Out No josiah chet eligible based on patient's age to complete this topic RSV Immunizations Under 20 Months Aged Out No longer eligible based on patient's age to complete this topic Procedures Procedure Name Priority Date/Time Associated Diagnosis Comments XR SHOULDER LT 3V STAT 12/11/2024 4:5 0 AM CDT URINALYSIS AUTO DIP STAT 10/21/2024 9 :45 PM BUTTING SAW OPERATOR LIPID PANEL STAT 04/18/2023 6:36 AM CDT HEMOGLOBIN, GLYCOSYLATED STAT 04/17/2023 4:24 PM CDT HUMAN PAPILLOMAVIRUS, HIGH-RISK TYPES Routine 10/31/2022 12:00 PM BUTTING SAW OPERATOR CYTOPATH CERV/VAG THIN LAYER Routine 10/31/2022 9:01 AM BUTTING SAW OPERATOR Encounter for gynecological examination with Papanicolaou smear of cervix MAMMOGRAM GENERIC (SCAN ORDER) 11/17/2019 from Last 3 Months or Most Recently Relevant to Health Maintenance Results * XR SHOULDER LT 3V (12/11/2024 4:50 AM CDT) Anatomical Region Laterality Modality Shoulder Radiographic Candis ging 12/11/2024 4:58 AM CDT Impressions 12/11/2024 5:01 AM CDT IMPRESSION: 1. No acute osseous injury identified. 2. Arthritic changes of the glenohumeral and A.C. Joints. Referred By: Interpreted By: Demarco Wilburn MD, 12/11/2024 4:58 AM Narrative 12/11/2024 5:01 AM CDT [facility] [address] [place], [place] [address] EXAMINATION: XR SHOULDER LT 3V HISTORY: Fall from standing. COMPARISON: No comparison. TECHNIQUE: 3 views of the left shoulder. FINDINGS: No fracture or dislocation is identified. Arthritic changes of the glenohumeral and AC joints. No destructive bone lesion is seen. Linear calcifications identified adjacent to the humeral head, which may indicate calcific tendinopathy. Procedure Note Demarco Wilburn MD - 12/11/2024 [facility] [address] [place], [place] [address] EXAMINATION: XR SHOULDER LT 3V HISTORY: Fall from standing. COMPARISON: No comparison. TECHNIQUE: 3 views of the left shoulder. FINDINGS: No fracture or dislocation is identified. Arthritic changes of theglenohumeral and AC joints. No destructive bone lesion is seen. Linearcalcifications identified adjacent to the humeral head, which may indicatecalcific tendinopathy. IMPRESSION: 1. No acute osseous injury identified. 2. Arthritic changes of the glenohumeral and A.C. Joints. Referred By: Interpreted By: Demarco Wilburn MD, 12/11/2024 4:58 AM Ariana Hearn MD GENERAL IMAGING Final Resul t * (ABNORMAL) URINALYSIS AUTO DIP (10/21/2024 9:45 PM BUTTING SAW OPERATOR) SPECIMEN TYPE URINE CLEAN CATCH 10/21/2024 9:45 PM BUTTING SAW OPERATOR [facility] COLOR (U) RED 10/21/2024 9:50 PM BUTTING SAW OPERATOR [facility] TRANSPARENCY CLEAR 10/21/2024 9:50 PM BUTTING SAW OPERATOR [facility] SPECIFIC GRAVITY (U) 1.015 1.010 - 1.025 10/21/2024 9:50 PM BUTTING SAW OPERATOR [facility] U PH 5.0 5.0 - 8.0 10/21/2024 9:50 PM BUTTING SAW OPERATOR [facility] LEUKOCYTES (U) 3+(A) NEGATIVE 10/21/2024 9:50 PM BUTTING SAW OPERATOR [facility] NITRITES POSITIVE( A) NEGATIVE 10/21/2024 9:50 PM BUTTING SAW OPERATOR [facility] PROTEIN RANDOM (U) 3+(A) NEGATIVE 10/21/2024 9:50 PM BUTTING SAW OPERATOR [facility] GLUCOSE (U) 1+(A) NEGATIVE 10/21/2024 9:50 PM BUTTING SAW OPERATOR [facility] KETONES MG/DL (U) 1+(A) NEGATIVE 10/21/2024 9:50 PM BUTTING SAW OPERATOR [facility] UROBILINOGEN 4.0(H) 0.2 - 1.0 EU/DL 10/21/2024 9:50 PM BUTTING SAW OPERATOR [facility] BILIRUBIN (U) 1+(A) NEGATIVE 10/21/2024 9:50 PM BUTTING SAW OPERATOR [facility] BLOOD (U) TRACE(A) NEGATIVE 10/21/2024 9:50 PM BUTTING SAW OPERATOR [facility] URINE SPECIMEN OBTAINED BY CLEAN CATCH PROCEDURE / Unknown 10/21/2024 9:45 PM BUTTING SAW OPERATOR us Dario Ricardo MD URINE ORDERABLES Final Result [facility] [address] [place] [address], * (ABNORMAL) LIPID PANEL (04/18/2023 6:36 AM CDT) CHOLESTEROL 188 MG/DL 04/18/2023 7:32 AM CDT [facility] Comment:DESIRABLE: <200 TRIGLYCERIDES 219 MG/DL 04/18/2023 7:32 AM CDT [facility] Comment:200-499 HIGH HDL 35(L) >49 MG/DL 04/18/2023 7:32 AM CDT [facility] LDL (CALCULATED) 109 MG/DL 04/18/20 7:32 AM CDT [facility] Comment:100-129 NEAR OR ABOV E OPTIMAL VLDL CALCULATION 44 MG/DL 04/18/20 7:32 AM CDT [facility] Comment:REFERENCE RANGE NOT ESTABLISHED CHOL/HDL RATIO 5.4 04/18/2023 7:32 AM CDT [facility] Comment:REFERENCE RANGE NOT ESTABLISHED LDL/HDL 3.1 04/18/2023 7:32 AM CDT [facility] Comment:REFERENCE RANGE NOT ESTABLISHED NON HDL CHOLESTEROL 153 MG/DL 04/18/2023 7:32 AM CDT [facility] Comment:REFERENCE RANGE NOT ESTABLISHED 04/18/2023 6:36 AM CDT [facility] Final Res ult Performing Organization Address [facility] Co de Phone Number [facility] [address] [place] [address], [phone] * (ABNORMAL) HEMOGLOBIN, GLYCOSYLATED (04/17/2023 4:24 PM CDT) HGB A1C 7.2(H) <5.7 % 04/17/2023 5:28 PM CDT [facility] ESTIMATED AVG GLUCOSE 160(H) 74 - 114 MG/DL 04/17/2023 5:28 PM CDT [facility] 04/17/2023 4:24 PM CDT Yoshi Edwards PA-C LABORATORY Final Result Performing Organization Address [facility] Co de Phone Number [facility] [address] [place] [address], [phone] * (ABNORMAL) HUMAN PAPILLOMAVIRUS, HIGH-RISK TYPES (10/31/2022 12:00 PM BUTTING SAW OPERATOR) SPEC DESCRIPTION CERVICAL/ ENDOCERVI SHWETA 11/03/2022 9:26 AM BUTTING SAW OPERATOR [facility] HPV DNA HIGH RISK POSITIVE( A) NEGATIVE 11/03/2022 5:31 PM BUTTING SAW OPERATOR [facility] Comment:SEE CYTOLOGY REPORT 10/31/2022 12:0 0 PM BUTTING SAW OPERATOR us Prem Bearden MD PATHOLOGY/CYTOLOGY ORDERABLES Fi nal Result [facility] [address] [place] [address], * Cytopath Cerv/Vag Thin Layer (10/31/2022 9:01 AM BUTTING SAW OPERATOR) THIN PREP PAP [facility] [address] [place] [address] Department of Pathology Pathology Report CERVICAL/VAGINAL PAP SMEAR REPORT Name: LETI WHITE Age: 1 1970 (Age: 52) Location: [facility] Sex: F Collected Date: 10/31/2022 [facility] #: [id number] Date Received: 11/03/2022 Date Reported: 11/05/2022 Provider: PREM BEARDEN MD INTERPRETATION ABNORMAL RESULT CERVICAL/ENDOCERVI SHWETA: SATISFACTORY FOR EVALUATION. ENDOCERVICAL/TRANS FORMATION ZONE COMPONENT PRESENT. ATYPICAL SQUAMOUS CELLS OF UNDETERMINED SIGNIFICANCE. POSITIVE FOR HIGH RISK HPV. The FDA approved Aptima HPV assay is an in vitro nucleic acid amplification test for the qualitative detection of E6/E7 viral messenger RNA (mRNA) from 14 high-risk types of human papillomavirus (HPV) in cervical specimens. The high-risk HPV types detected by the assay include: 16,18,31,33,35,39, 45,51,52,56,58,59, 66, and 68. Electronically Signed Out MARIA G Sargent MD (ASCP) CLINICAL HISTORY Z01.419 SCREENING PAP TEST ThinPrep Pap Test with HR HPV testing in patient > 30 years requested. Date of Last Menstrual Period: 04/15/18 Menstrual Status: Menstrual Suppression SPECIMEN SUBMITTED CERVICAL/ENDOCERVI SHWETA Specimen Received:1 Thin Prep Vial, Image Assisted Pap (SMD) Please note: The Pap smear is not a diagnostic test. It is a screening test. Negative results on combined screening (Pap test and HPV-DNA) have a high negative predictive value (99.1-100 percent) for cervical cancer. The pap test is not effective in detecting cervical adenocarcinoma. [facility] 10/31/2022 9:01 AM BUTTING SAW OPERATOR 11/03/2022 9:01 AM BUTTING SAW OPERATOR Comment:CERVICAL/ENDOCERVICA L Prem Bearden MD PATHOLOGY/CYTOLOGY ORDERABLES Fi nal Result [facility] [address] [place] [address], * MAMMOGRAM GENERIC (11/17/2019) Anatomical Region Laterality Modality Other 11/17/2019 Narrative 11/17/2019 Ordered by an unspecified provider. us Documents Scanned SCANNING Final Result from Last 3 Months or Most Recently Relevant to Health Maintenance Insurance [facility] [place] [address] Advance Directives * Full Code (Latest Code Status on File) Date Activated Date Inactivated Comments 05/07/2023 9:34 PM 08/04/2023 5:02 PM * Full Code Date Activated Date Inactivated Comments 04/18/2023 1:16 AM 04/22/2023 2:48 PM Care Teams Gold Leaf Gilder Relationship Specialty Start Date End Date Brissa Tijerina MD [address] [place] [address] PCP - General FAMILY PRACTICE 11/03/24 Prem Bearden MD Automatic Shirring Machine Operator OBGYN 04/04/22 Ce Villalobos MD [address] [place] [address] [place] Oil Drilling Engineer CARDIOVASCULAR DISEASE 07/18/22
--- OUTSIDE RECORDS SUMMARY | 2025-01-04 18:34 | XMS_ITS | Clinical Summary ---
Author Organization [facility] Address [address] [place] [address] Care Team Providers Care Diamond Mounter Name Role Phone Adele Lagos MD Primary Care Provider [phone] Allergies Active Allergy Reactions Criticality Noted Date Comments Diphenhydramine Other (see Comments) 10/20/2014 Irritability Clarithromycin Hives 10/20/2014 Prochlorperazine Other (see Comments) 5 Irritability Sumatriptan Palpitations 10/20/2014 Lorazepam Anxiety Low 11/18/2014 Metoclopramide Hcl Other (see Comments) 015 Irritability Medications metoprolol succinate (TOPROL XL) 200 MG PO TAB-SR-24HR Take 50 mg by mouth daily. Active citalopram (CELEXA) 40 MG PO TABS Take 40 mg by mouth daily. Active amLODIPine (NORVASC) 5 MG PO TABS Take 5 mg by mouth daily. Active ketorolac (TORADOL) 10 MG Tablet Take 10 mg by mouth every 4 hours as needed for Pain. Active insulin glargine (LANTUS) 100 UNIT/ML Solution 80 Units by Subcutaneous route nightly. Active ondansetron (ZOFRAN) 4 MG Tablet Take 1 Tab by mouth every 8 hours as needed for Nausea. 10 Tab 0 5 Active atorvastatin (LIPITOR) 40 MG Tablet Take 40 mg by mouth daily. Active insulin aspart (NovoLOG) 100 UNIT/ML SolutionIndicat ions:sliding scale by Subcutaneous route 3 times daily (after meals). Indications: sliding scale Active dicyclomine (BENTYL) 20 MG Tablet Take 20 mg by mouth daily. Active pantoprazole (Protonix) 40 MG Tablet Delayed Response Take 40 mg by mouth daily. Active gabapentin (NEURONTIN) 300 MG CapsuleIndicati ons:300mg am, 600mg pm Take 300 mg by mouth. Indications: 300mg am, 600mg pm Active baclofen (LIORESAL) 10 MG Tablet Take 1 Tablet by mouth 3 times daily. 30 Tablet 1 Active Lidocaine 4 % Patch 1 Patch by Transdermal route every 24 hours. 30 Patch 1 Active HYDROcodone-angel taminophen (NORCO) 5-325 MG TabletIndicatio ns:Thoracic back pain Take 1 Tablet by mouth every 6 hours as needed for Moderate or more severe pain. 12 Tablet 2 Active tiZANidine HCl 4 MG Capsule Take 4 mg by mouth every 6 hours as needed for Other. Active Active Problems Problem Noted Date Diagnosed Date Arachnoid cyst of spine 08/08/2020 Migraine without status migrainosus, not intract able 03/06/2018 Social History Tobacco Use Types Packs/Day Years Used Date Smoking Tobacco: Never Smokeless Tobacco: Never Tobacco Cessation:Counseling Given: Not Answered Alcohol Use Standard Drinks/Week Comments No 0 (1 standard drink = 0.6 oz pur e alcohol) Comments No Sex and Gender Information Value Date Recorded Sex Assigned at Female 08/12/2024 6:07 PM STEEL ESTIMATOR Legal Sex Female 4:01 AM STEEL ESTIMATOR Gender Identity Female 08/12/2024 6:07 PM STEEL ESTIMATOR Sexual Orientation Not on file Last Filed Vital Signs Vital Sign Reading Time Taken Comments Blood Pressure 150/61 08/12/2024 6:45 PM STEEL ESTIMATOR Pulse 54 08/12/2024 6:45 PM STEEL ESTIMATOR Temperature 36.7 C (98 F) 08/12/2024 6:45 PM STEEL ESTIMATOR Respiratory Rate 14 08/12/2024 6:45 PM STEEL ESTIMATOR Oxygen Saturation 96% 08/12/2024 6:45 PM STEEL ESTIMATOR Inhaled Oxygen Concentration - - Weight 127 kg (280 lb) 08/12/2024 5:58 PM STEEL ESTIMATOR Height 170.2 cm (5' 7 ) 08/12/2024 5:58 PM STEEL ESTIMATOR Body Mass Index 43.85 08/12/2024 5:58 PM STEEL ESTIMATOR Plan of Treatment Health Maintenance Due Date Last Done Comments Hepatitis C Virus (HCV) Screening 1970 Mammogram 1970 Hepatitis B Immunization (1 of 3 - 19+ 3-dose series) 1989 HPV/Cotest 2000 Colonoscopy 2015 Colorectal Cancer Screening 2015 Cologuard 2020 Immunochemical Fecal Occult Blood 2020 Pneumococcal Immunization (50+ years) (2 of 2 - PCV) 10/02/2021 10/02/2020 Influenza Immunization (#1) 2024 10/0 11/2020, 09/29/2020, 06/28/2020, Additional history exists SARS-COV-2 Immunization ( season) 2024 09/13/2021, 12/14/2020, 11/16/2020 Cervical Cancer Screening (CCS) 10/31/2025 Pap Smear 10/31/2025 10/31/2022, 03/15/2021 Respiratory Syncytial Virus (RSV) Immunization (Adult) (1 - 1-dose 75+ series) 2045 DTaP/Tdap/Td Immunization Discontinued 05/31/2007 TdaP Immunization Completed 05/31/2007 Pneumococcal Immunization Combined Discontinued 10/02/2020 Zoster Immunization Completed 09/13/2021, Meningococcal Immunization (ACWY) Aged Out No longer eligible based on patient's age to complete this topic Rotavirus Immunization Aged Out No lo nger eligible based on patient's age to complete this topic Insurance [place] MEDICARE Member Subscriber Plan / Payer (Ef fective 2013-Present) Name:Leti White Member ID:[id number] Relation to Subscriber:Self Name:Leti White Subscriber ID:[id number] Payer ID:[id number] Group ID:Not on file Type:Not on file Address: [place] [phone] MEDICARE MEDICARE C [facility] MEDICAID [place] Care Teams Diamond Mounter Relationship Specialty Start Date End Date Adele Lagos MD [address] [place] [address] PCP - General Family Medicine 07/15/20
--- OUTSIDE RECORDS SUMMARY | 2025-01-04 18:34 | XMS_ITS | Encounter Summary ---
Author Organization [facility] Address [address] [place] [address] Care Team Providers Care Yarn Spinner Name Role Phone Yaneth Lagos MD Primary Care Provider [phone] Yaneth Lagos MD Primary Care Provider [phone] Hero eBarden MD Unavailable Adele Lagos MD Primary Care Provider [phone] Ce Villalobos MD Unavailable Brissa Tijerina MD Primary Care Provider + Encounter Details Date Type Department Care Team (Late st Contact Info) Description 06/24/2017 Abstract SJB CONVERSION [address] [place] [address] , Dot Springer MD Social History Tobacco Use Types Packs/Day Years Used Date Smoking Tobacco: Never Assessed Comments Unknown Sex and Gender Information Value Date Recorded Sex Assigned at Female 09/30/2024 10:51 PM RADIOCHEMICAL TECHNICIAN Legal Sex Female 7:02 PM CDT Gender Identity Not on file Sexual Orientation Not on file documented as of this encounter Plan of Treatment Not on file documented as of this encounter Visit Diagnoses Not on filedocumented in this encounter Care Teams Yarn Spinner Relationship Specialty Start Date End Date Yaneth Lagos MD [facility] [address] [facility] [address] [place] [phone] PCP - General 03/22/17 04/07/18 Yaneth Lagos MD [address] [facility] [address] [place] [address] PCP - General FAMILY PRACTICE 09/17/19 06/15/22 Adele Lagos MD [address] [place] [address] PCP - General INTERNAL MEDICINE 06/16/22 11/02/24 Brissa Tijerina MD [address] [place] [address] PCP - General FAMILY PRACTICE 11/03/24 Hero Bearden MD [address] [phone] Shift Leader OBGYN 04/04/22 Ce Villalobos MD [address] [place] [address] [place] Men'S Locker Room Attendant CARDIOVASCULAR DISEASE 07/18/22 documented as of this encounter
--- OUTSIDE RECORDS SUMMARY | 2025-01-04 18:34 | XMS_ITS | Encounter Summary ---
Author Organization [facility] Address [address] [place] [address] Care Team Providers Care Machine Room Engineer Name Role Phone Yaneth Lagos MD Primary Care Provider [phone] Yaneth Lagos MD Primary Care Provider [phone] Hero Bearden MD Unavailable Adele Lagos MD Primary Care Provider [phone] Ce Villalobos MD Unavailable Brissa Tijerina MD Primary Care Provider + Encounter Details Date Type Department Care Team (Late st Contact Info) Description 11/28/2017 Abstract SJS CONVERSION [address] [place] [address] , Generic MD Racheal Social History Tobacco Use Types Packs/Day Years Used Date Smoking Tobacco: Never Assessed Comments Unknown Sex and Gender Information Value Date Recorded Sex Assigned at Female 09/30/2024 10:51 PM APPLICATION SOFTWARE ENGINEER Legal Sex Female 7:02 PM CDT Gender Identity Not on file Sexual Orientation Not on file documented as of this encounter Plan of Treatment Not on file documented as of this encounter Visit Diagnoses Not on filedocumented in this encounter Care Teams Machine Room Engineer Relationship Specialty Start Date End Date Yaneth Lagos MD [address] [address] PCP - General 03/22/17 04/07/18 Yaneth Lagos MD [address] [facility] [address] [place] [address] PCP - General FAMILY PRACTICE 09/17/19 06/15/22 Adele Lagos MD [address] [place] [address] PCP - General INTERNAL MEDICINE 06/16/22 11/02/24 Brissa Tijerina MD [address] [place] [address] PCP - General FAMILY PRACTICE 11/03/24 Hero Bearden MD [address] [facility] [address] [place] [phone] Application Performance Engineer OBGYN 04/04/22 Ce Villalobos MD [address] [place] [address] [place] Telephonic Rn CARDIOVASCULAR DISEASE 07/18/22 documented as of this encounter
--- OUTSIDE RECORDS SUMMARY | 2025-01-04 18:34 | XMS_ITS | Encounter Summary ---
Author Organization [facility] Address [address] [place] [address] Care Team Providers Care Pool Lifeguard Name Role Phone Yaneth Lagos MD Primary Care Provider [phone] Hero Bearden MD Unavailable Adele Lagos MD Primary Care Provider [phone] Ce Villalobos MD Unavailable Brissa Tijerina MD Primary Care Provider + Encounter Details Date Type Department Care Team (Late st Contact Info) Description 02/19/2019 Abstract SFL CONVERSION [address] [place] [address] , Generic Conversion, Social History Tobacco Use Types Packs/Day Years Used Date Smoking Tobacco: Never Smokeless Tobacco: Never Alcohol Use Standard Drinks/Week Comments No 0 (1 standard drink = 0.6 oz pur e alcohol) Comments Unknown Sex and Gender Information Value Date Recorded Sex Assigned at Female 09/30/2024 10:51 PM CHECKOUT OPERATOR Legal Sex Female 7:02 PM CDT Gender Identity Not on file Sexual Orientation Not on file documented as of this encounter Plan of Treatment Not on file documented as of this encounter Visit Diagnoses Not on filedocumented in this encounter Care Teams Pool Lifeguard Relationship Specialty Start Date End Date Yaneth Lagos MD [address] [place] [phone] PCP - General FAMILY PRACTICE 09/17/19 06/15/22 Adele Lagos MD [address] [place] [address] PCP - General INTERNAL MEDICINE 06/16/22 11/02/24 Brissa Tijerina MD [address] [place] [address] PCP - General FAMILY PRACTICE 11/03/24 Hero Bearden MD [address] [phone] Continuous Process Machine Operator OBGYN 04/04/22 Ce Villalobos MD [address] [place] [address] [place] Victorian Literature Professor CARDIOVASCULAR DISEASE 07/18/22 documented as of this encounter
--- OUTSIDE RECORDS SUMMARY | 2025-01-04 18:58 | XMS_ITS | Clinical Summary ---
Author Organization [facility] Address [address] [facility] [address] [place] [address] Care Team Providers Care Steam Clean Machine Operator Name Role Phone Adele Lagos MD Primary Care Provider [phone] Allergies Active Allergy Reactions Criticality Noted Date [...] Sex Assigned at Female 08/12/2024 6:07 PM DATA ENTRY ASSISTANT Legal Sex Female 4:01 AM DATA ENTRY ASSISTANT Gender Identity Female 08/12/2024 6:07 PM DATA ENTRY ASSISTANT Sexual Orientation Not on file Last Filed Vital Signs Vital Sign Reading Time Taken Comments Blood Pressure 150/61 08/12/2024 6:45 PM DATA ENTRY ASSISTANT Pulse 54 08/12/2024 6:45 PM DATA ENTRY ASSISTANT Temperature 36.7 C (98 F) 08/12/2024 6:45 PM DATA ENTRY ASSISTANT Respiratory Rate 14 08/12/2024 6:45 PM DATA ENTRY ASSISTANT Oxygen Saturation 96% 08/12/2024 6:45 PM DATA ENTRY ASSISTANT Inhaled Oxygen Concentration - - Weight 127 kg (280 lb) 08/12/2024 5:58 PM DATA ENTRY ASSISTANT Height 170.2 cm (5' 7 ) 08/12/2024 5:58 PM DATA ENTRY ASSISTANT Body Mass Index 43.85 08/12/2024 5:58 PM DATA ENTRY ASSISTANT Plan of Treatment Health Maintenance Due Date [...] Payer (Ef fective 2013-Present) Name:Leti White Member ID:[id number] Relation to Subscriber:Self Name:Leti White Subscriber ID:[id number] Payer ID:[id number] Group ID:Not on file Type:Not on file Address: [place] [id number] MEDICARE MEDICARE C [facility] MEDICAID [place] Care Teams Steam Clean Machine Operator Relationship Specialty Start Date End Date Adele Lagos MD [address] [place] [address] PCP - General Family Medicine 07/15/20
--- OUTSIDE RECORDS SUMMARY | 2025-01-04 18:58 | XMS_ITS | Encounter Summary ---
Author Organization [facility] Address [address] [place] [address] Care Team Providers Care Department Sales Manager Name Role Phone Yaneth Lagos MD Primary Care Provider [phone] Hero Bearden MD Unavailable Adele Lagos MD Primary Care Provider [phone] Ce Villalobos MD Unavailable Brissa Tijerina MD Primary Care Provider + Encounter Details Date Type Department Care Team (Late st Contact Info) Description 02/19/2019 Abstract SFL CONVERSION [address] [place] [address] , Generic Conversion, Social History Tobacco Use Types Packs/Day Years Used Date Smoking Tobacco: Never Smokeless Tobacco: Never Alcohol Use Standard Drinks/Week Comments No 0 (1 standard drink = 0.6 oz pur e alcohol) Comments Unknown Sex and Gender Information Value Date Recorded Sex Assigned at Female 09/30/2024 10:51 PM ADJUSTER LEADER Legal Sex Female 7:02 PM CDT Gender Identity Not on file Sexual Orientation Not on file documented as of this encounter Plan of Treatment Not on file documented as of this encounter Visit Diagnoses Not on filedocumented in this encounter Care Teams Department Sales Manager Relationship Specialty Start Date End Date Yaneth aLgos MD [address] [place] [phone] PCP - General FAMILY PRACTICE 09/17/19 06/15/22 Adele Lagos MD [address] [place] [address] PCP - General INTERNAL MEDICINE 06/16/22 11/02/24 Brissa Tijerina MD [address] [place] [address] PCP - General FAMILY PRACTICE 11/03/24 Hero Bearden MD [address] [phone] Senior Engineering Associate OBGYN 04/04/22 Ce Villalobos MD [address] [place] [address] [place] Agility Instructor CARDIOVASCULAR DISEASE 07/18/22 documented as of this encounter
--- OUTSIDE RECORDS SUMMARY | 2025-01-04 18:58 | XMS_ITS | Encounter Summary ---
Author Organization [facility] Address [address] [place] [address] Care Team Providers Care Congressional District Aide Name Role Phone Yaneth Lagos MD Primary Care Provider [phone] Yaneth Lagos MD Primary Care Provider [phone] Hero Bearden MD Unavailable Adele Lagos MD Primary Care Provider [phone] Ce Villalobos MD Unavailable Brissa Tijerina MD Primary Care Provider + Encounter Details Date Type Department Care Team (Late st Contact Info) Description 11/28/2017 Abstract SJS CONVERSION [address] [place] [address] , Generic MD Racheal Social History Tobacco Use Types Packs/Day Years Used Date Smoking Tobacco: Never Assessed Comments Unknown Sex and Gender Information Value Date Recorded Sex Assigned at Female 09/30/2024 10:51 PM CLOTHING SORTER Legal Sex Female 7:02 PM CDT Gender Identity Not on file Sexual Orientation Not on file documented as of this encounter Plan of Treatment Not on file documented as of this encounter Visit Diagnoses Not on filedocumented in this encounter Care Teams [place] Aide Relationship Specialty Start Date End Date Yaneth Lagos MD [address] [phone] PCP - General 03/22/17 04/07/18 Yaneth Lagos MD [address] [facility] [address] [place] [address] PCP - General FAMILY PRACTICE 09/17/19 06/15/22 Adele Lagos MD [address] [place] [address] PCP - General INTERNAL MEDICINE 06/16/22 11/02/24 Brissa Tijerina MD [address] [place] [address] PCP - General FAMILY PRACTICE 11/03/24 Hero Bearden MD [address] [facility] [address] [place] [phone] Green Marketer OBGYN 04/04/22 Ce Villalobos MD [address] [place] [address] Odin Exchange Consultant CARDIOVASCULAR DISEASE 07/18/22 documented as of this encounter
--- OUTSIDE RECORDS SUMMARY | 2025-01-04 18:58 | XMS_ITS | Continuity of Care Document ---
Author Organization [facility] Address [address] [place] [address] Phone Care Team Providers Care Manufacturing Weaver Name Role Phone Marilu Clifford PA-C Unavailable Unavailable Advance Directives Directive Yes / No Effective Date File Name No Information Encounters Encounter Description Practice Location Reason(s) For Visit Diagnoses Date Provider Providers Copied on Encounter [facility], [address] [place] [address], [facility], tel: [phone] [place] chart update (chief complaint) No Information Darrin Michel. [address] [place] [address], [facility], . tel: [phone] Family History Family Member Type Diagnosis Age At Onset No Information Payers Payer name Insurance type Covered libertarian ID Authoriza tion(s) No Information Social History [...]
--- OUTSIDE RECORDS SUMMARY | 2025-01-04 18:58 | XMS_ITS | Encounter Summary ---
Author Organization [facility] Address [address] [place] [address] Care Team Providers Care Vet Tech Name Role Phone Hero Bearden MD Unavailable Adele Lagos MD Primary Care Provider [phone] Ce Villalobos MD Unavailable Brissa Tijerina MD Primary Care Provider + Encounter Details Date Type Department Care Team (Late st Contact Info) Description 04/23/2023 Hospital Follow-up Call [facility] Cardiovascular Care Unit [address] [place] [address] Kalyn New RN Social History [...] Recorded Patient Health Questionnaire-2 Score 0 10/31/2022 [facility] [place] of Occupat ional Health - Occupational Stress [...] place to sleep or slept in a fdc (including now)? Yes 04/18/2023 Comments No Sex and Gender Information Value Date Recorded Sex Assigned at Female 09/30/2024 10:51 PM DIAMOND WHEEL MOLDER Legal Sex Female 7:02 PM CDT Gender [...] on filedocumented in this encounter Care Teams Vet Tech Relationship Specialty Start Date End Date Adele Lagos MD [address] [place] [address] PCP - General INTERNAL MEDICINE 06/16/22 11/02/24 Brissa Tijerina MD [address] [place] [address] PCP - General FAMILY PRACTICE 11/03/24 Hero Bearden MD Drapery Hanger OBGYN 04/04/22 Ce Villalobos MD [address] [place] [address] [place] Computer Aided Design Designer CARDIOVASCULAR DISEASE 07/18/22 documented as of this encounter
--- OUTSIDE RECORDS SUMMARY | 2025-01-04 18:58 | XMS_ITS | Encounter Summary ---
Author Organization [facility] Address [address] [place] [address] Care Team Providers Care Finishing Range Supervisor Name Role Phone Yaneth Lagos MD Primary Care Provider [phone] Yaneth Lagos MD Primary Care Provider [phone] Hero Bearden MD Unavailable Adele Lagos MD Primary Care Provider [phone] Ce Villalobos MD Unavailable Brissa Tijerina MD Primary Care Provider + Encounter Details Date Type Department Care Team (Late st Contact Info) Description 06/24/2017 Abstract SJB CONVERSION [address] [place] [address] , Dot Springer MD Social History Tobacco Use Types Packs/Day Years Used Date Smoking Tobacco: Never Assessed Comments Unknown Sex and Gender Information Value Date Recorded Sex Assigned at Female 09/30/2024 10:51 PM SALES CONTRACTS ANALYST Legal Sex Female 7:02 PM CDT Gender Identity Not on file Sexual Orientation Not on file documented as of this encounter Plan of Treatment Not on file documented as of this encounter Visit Diagnoses Not on filedocumented in this encounter Care Teams Finishing Range Supervisor Relationship Specialty Start Date End Date Yaneth Lagos MD [facility] [address] [place] [phone] PCP - General 03/22/17 04/07/18 Yaneth Lagos MD [address] [facility] [address] [place] [address] PCP - General FAMILY PRACTICE 09/17/19 06/15/22 Adele Lagos MD [address] [place] [address] PCP - General INTERNAL MEDICINE 06/16/22 11/02/24 Brissa Tijerina MD [address] [place] [address] PCP - General FAMILY PRACTICE 11/03/24 Hero Bearden MD [address] [phone] Lap Checker OBGYN 04/04/22 Ce Villalobos MD [address] [place] [address] [place] Privacy Manager CARDIOVASCULAR DISEASE 07/18/22 documented as of this encounter
--- OUTSIDE RECORDS SUMMARY | 2025-01-04 18:58 | XMS_ITS | Clinical Summary ---
Author Organization [facility] Address [address] [place] [address] Care Team Providers Care Molecular Biology Director Name Role Phone Prem Bearden MD Unavailable [...] Problem Noted Date Diagnosed Date Unstable angina ([facility]) 05/07/2023 Chest pain 04/18/2023 ASCUS with positive high risk HPV cervical 11/06 Overview (11/06/2022): 10/31/2022 - ASCUS with positive high risk HPV. Second degree uterine prolapse 10/31/2022 ASCUS of cervix with negative high risk HPV 07/0 05/2021 Overview (03/22/2021): 03/15/2021 Migraine 02/14/2021 HTN (hypertension) 02/14/2021 Diabetes mellitus type 2, controlled ([facility]) 02/14/2021 Resolved Problems Problem Noted Date Diagnosed Date Resolved Date Cervical high risk human pap illomavirus (HPV) DNA test positive 02/14/2021 02/23/2023 Overview (03/15/2021): Pap with positive high risk HPV 05/02/2019 and 11/17/2019. Encounters Date Type Department Care Team Description 12/11/2024 4:19 AM CDT - 12/11/2024 5:16 AM CDT Emergency [facility] Emergency [address] [place] [address] Ariana Hearn MD Fall Discharge Disposition: Home or Self Care (Routine Discharge) 12/11/2024 Travel 11/29/2024 8:46 PM CDT - 11/29/2024 9:11 PM CDT Emergency [facility] Emergency Room [facility] [place] [address] Ghulam Stiles MD Back Pain; Neck Pain Discharge Disposition: Home or Self Care (Routine Discharge) 11/29/2024 Travel 11/22/2024 9:08 PM CDT - 11/22/2024 10:16 PM CDT Emergency [facility] Emergency Services [address] [place] [address] Dario Ricardo MD Back Pain (Chronic back pain) Discharge Disposition: Home or Self Care (Routine Discharge) 11/22/2024 Travel 11/12/2024 9:19 PM STRIKE PLANNING APPLICATIONS - 11/12/2024 9:42 PM STRIKE PLANNING APPLICATIONS Emergency [facility] Emergency Services [address] [place] [address] Nishi Ryder MD Back Pain (/) Discharge Disposition: Home or Self Care (Routine Discharge) 11/12/2024 Travel 11/02/2024 10:58 PM STRIKE PLANNING APPLICATIONS - 11/03/2024 12:16 AM STRIKE PLANNING APPLICATIONS Emergency [facility] Emergency Services [address] [place] [address] Dario Ricardo MD Back Pain Discharge Disposition: Home or Self Care (Routine Discharge) 11/02/2024 Travel 10/21/2024 8:38 PM STRIKE PLANNING APPLICATIONS - 10/21/2024 10:21 PM STRIKE PLANNING APPLICATIONS Emergency [facility] Emergency Services [address] [place] [address] Dario Ricardo MD Back Pain Discharge Disposition: Home or Self Care (Routine Discharge) 10/21/2024 Travel 10/18/2024 5:34 PM STRIKE PLANNING APPLICATIONS - 10/18/2024 6:02 PM STRIKE PLANNING APPLICATIONS Emergency [facility] Emergency Room [address] [place] [address] Camila Pimentel NP Back Pain Discharge Disposition: Home or Self Care (Routine Discharge) 10/18/2024 Travel 10/11/2024 5:59 PM STRIKE PLANNING APPLICATIONS - 10/11/2024 7:36 PM [facility] Emergency [place] Emergency Room [address] [place] [address] Jordan Crenshaw MD Back Pain Discharge Disposition: Home or Self Care (Routine Discharge) 10/11/2024 Travel 10/07/2024 7:22 PM STRIKE PLANNING APPLICATIONS - 10/07/2024 8:07 PM [facility] Emergency [facility] Emergency Services [address] [place] [address] Rhea Sierra MD Back Pain Discharge Disposition: [...] Recorded Patient Health Questionnaire-2 Score 0 10/31/2022 [facility] - Occupational Stress Questionnaire Answer Date [...] place to sleep or slept in a correction (including now)? Yes 05/08/2023 Comments No Sex and Gender Information Value Date Recorded Sex Assigned at Female 09/30/2024 10:51 PM STRIKE PLANNING APPLICATIONS Legal Sex Female 7:02 PM CDT Gender [...] AUTO DIP STAT 10/21/2024 9 :45 PM STRIKE PLANNING APPLICATIONS LIPID PANEL STAT 04/18/2023 6:36 AM CDT HEMOGLOBIN, GLYCOSYLATED STAT 04/17/2023 4:24 PM CDT HUMAN PAPILLOMAVIRUS, HIGH-RISK TYPES Routine 10/31/2022 12:00 PM STRIKE PLANNING APPLICATIONS CYTOPATH CERV/VAG THIN LAYER Routine 10/31/2022 9:01 AM STRIKE PLANNING APPLICATIONS Encounter for gynecological examination with Papanicolaou smear [...] 4:58 AM Narrative 12/11/2024 5:01 AM CDT [facility] [address] [place], [place] [address] EXAMINATION: XR SHOULDER LT 3V HISTORY: Fall from standing. COMPARISON: No comparison. TECHNIQUE: 3 views of the left shoulder. FINDINGS: No fracture or dislocation is identified. Arthritic changes of the glenohumeral and AC joints. No destructive bone lesion is seen. Linear calcifications identified adjacent to the humeral head, which may indicate calcific tendinopathy. Procedure Note Demarco Wilburn MD - 12/11/2024 [facility] [address] [place], [place] [address] EXAMINATION: XR SHOULDER LT 3V HISTORY: Fall [...] (ABNORMAL) URINALYSIS AUTO DIP (10/21/2024 9:45 PM STRIKE PLANNING APPLICATIONS) SPECIMEN TYPE URINE CLEAN CATCH 10/21/2024 9:45 PM STRIKE PLANNING APPLICATIONS [facility] COLOR (U) RED 10/21/2024 9:50 PM STRIKE PLANNING APPLICATIONS [facility] TRANSPARENCY CLEAR 10/21/2024 9:50 PM STRIKE PLANNING APPLICATIONS [facility] SPECIFIC GRAVITY (U) 1.015 1.010 - 1.025 10/21/2024 9:50 PM STRIKE PLANNING APPLICATIONS [facility] U PH 5.0 5.0 - 8.0 10/21/2024 9:50 PM STRIKE PLANNING APPLICATIONS [facility] LEUKOCYTES (U) 3+(A) NEGATIVE 10/21/2024 9:50 PM STRIKE PLANNING APPLICATIONS [facility] NITRITES POSITIVE( A) NEGATIVE 10/21/2024 9:50 PM STRIKE PLANNING APPLICATIONS [facility] PROTEIN RANDOM (U) 3+(A) NEGATIVE 10/21/2024 9:50 PM STRIKE PLANNING APPLICATIONS [facility] GLUCOSE (U) 1+(A) NEGATIVE 10/21/2024 9:50 PM STRIKE PLANNING APPLICATIONS [facility] KETONES MG/DL (U) 1+(A) NEGATIVE 10/21/2024 9:50 PM STRIKE PLANNING APPLICATIONS [facility] UROBILINOGEN 4.0(H) 0.2 - 1.0 EU/DL 10/21/2024 9:50 PM STRIKE PLANNING APPLICATIONS [facility] BILIRUBIN (U) 1+(A) NEGATIVE 10/21/2024 9:50 PM STRIKE PLANNING APPLICATIONS [facility] BLOOD (U) TRACE(A) NEGATIVE 10/21/2024 9:50 PM STRIKE PLANNING APPLICATIONS [facility] URINE SPECIMEN OBTAINED BY CLEAN CATCH PROCEDURE / Unknown 10/21/2024 9:45 PM STRIKE PLANNING APPLICATIONS us Dario Ricardo MD URINE ORDERABLES Final Result [facility] [address] [place] [address], * (ABNORMAL) LIPID PANEL (04/18/2023 6:36 AM CDT) CHOLESTEROL 188 MG/DL 04/18/2023 7:32 AM CDT [facility] Comment:DESIRABLE: <200 TRIGLYCERIDES 219 MG/DL 04/18/2023 7:32 AM CDT [facility] Comment:200-499 HIGH HDL 35(L) >49 MG/DL 04/18/2023 7:32 AM CDT [facility] LDL (CALCULATED) 109 MG/DL 04/18/20 7:32 AM CDT [facility] Comment:100-129 NEAR OR ABOV E OPTIMAL VLDL CALCULATION 44 MG/DL 04/18/20 7:32 AM CDT [facility] Comment:REFERENCE RANGE NOT ESTABLISHED CHOL/HDL RATIO 5.4 04/18/2023 7:32 AM CDT [facility] Comment:REFERENCE RANGE NOT ESTABLISHED LDL/HDL 3.1 04/18/2023 7:32 AM CDT [facility] Comment:REFERENCE RANGE NOT ESTABLISHED NON HDL CHOLESTEROL 153 MG/DL 04/18/2023 7:32 AM CDT [facility] Comment:REFERENCE RANGE NOT ESTABLISHED 04/18/2023 6:36 AM CDT [facility] Final Res ult Performing Organization Address [facility] Co de Phone Number [facility] [address] [place] [address], [phone] * (ABNORMAL) HEMOGLOBIN, GLYCOSYLATED (04/17/2023 4:24 PM CDT) HGB A1C 7.2(H) <5.7 % 04/17/2023 5:28 PM CDT [facility] ESTIMATED AVG GLUCOSE 160(H) 74 - 114 MG/DL 04/17/2023 5:28 PM CDT [facility] 04/17/2023 4:24 PM CDT Yoshi Edwards PA-C LABORATORY Final Result Performing Organization Address [facility] Co de Phone Number [facility] [address] [place] [address], [phone] * (ABNORMAL) HUMAN PAPILLOMAVIRUS, HIGH-RISK TYPES (10/31/2022 12:00 PM STRIKE PLANNING APPLICATIONS) SPEC DESCRIPTION CERVICAL/ ENDOCERVI SHWETA 11/03/2022 9:26 AM STRIKE PLANNING APPLICATIONS [facility] HPV DNA HIGH RISK POSITIVE( A) NEGATIVE 11/03/2022 5:31 PM STRIKE PLANNING APPLICATIONS [facility] Comment:SEE CYTOLOGY REPORT 10/31/2022 12:0 0 PM STRIKE PLANNING APPLICATIONS us Prem Bearden MD PATHOLOGY/CYTOLOGY ORDERABLES Fi nal Result [facility] [address] [place] [address], * Cytopath Cerv/Vag Thin Layer (10/31/2022 9:01 AM STRIKE PLANNING APPLICATIONS) THIN PREP PAP [facility] [address] [place] [address] Department of Pathology Pathology Report CERVICAL/VAGINAL PAP SMEAR REPORT Name: LETI WHITE Age: 1 1970 (Age: 52) Location: [facility] Sex: F Collected Date: 10/31/2022 [facility] #: [id number] Date Received: 11/03/2022 Date Reported: 11/05/2022 Provider: [...] is not effective in detecting cervical adenocarcinoma. [facility] 10/31/2022 9:01 AM STRIKE PLANNING APPLICATIONS 11/03/2022 9:01 AM [employer] Comment:CERVICAL/ENDOCERVICA L Prem Bearden MD PATHOLOGY/CYTOLOGY ORDERABLES Fi nal Result [facility] [address] [place] [address], * MAMMOGRAM GENERIC (11/17/2019) Anatomical Region Laterality Modality Other 11/17/2019 Narrative 11/17/2019 Ordered by an unspecified provider. us Documents Scanned SCANNING Final Result from Last 3 Months or Most Recently Relevant to Health Maintenance Insurance [facility] Advance Directives * Full Code (Latest Code Status on File) Date Activated Date Inactivated Comments 05/07/2023 9:34 PM 08/04/2023 5:02 PM * Full Code Date Activated Date Inactivated Comments 04/18/2023 1:16 AM 04/22/2023 2:48 PM Care Teams Molecular Biology Director Relationship Specialty Start Date End Date Brissa Tijerina MD [address] [place] [address] PCP - General FAMILY PRACTICE 11/03/24 Prem Bearden MD Tube Drawing Supervisor OBGYN 04/04/22 Ce Villalobos MD [address] [place] [address] [place] Laborer CARDIOVASCULAR DISEASE 07/18/22
[2025-01-04] MEDS: oxyCODONE/ACETAMINOPHEN (*CRX) 10-325 MG TABLET 1 TAB PO (20:08)
[2025-01-04 20:10] VITALS: BP 135/62; PULSE 84; RESP 18; TEMP 37; O2SAT 96
== END 2025-01-04 20:10 | disposition home or self-care (01) ==
PROVIDERS: Emergency Provider Internal Medicine Critical Care Medicine; PCP Family Medicine
DX: M25.512 Pain in left shoulder (principal); I10 Essential (primary) hypertension; E78.5 Hyperlipidemia, unspecified; W06.XXXA Fall from bed, initial encounter; Y92.003 Bedroom of unspecified non-institutional (private) residence as the place of occurrence of the external cause
CPT/HCPCS: 73030; 99283; A9270

== ENCOUNTER 2025-02-21 09:28 | Emergency (ER) | payer MEDICARE, MEDICAID, SELFPAY ==
--- NOTE | ~2025-02-21 | CT_ITS ---
CT of the Abdomen and Pelvis: Indication: Abdominal pain Technique: 2.5 mm axial scans were obtained through the abdomen and pelvis following intravenous adm inistration of 100 cc of Omnipaque 350. Dose reduction technique was used on this scan by utilizing a utomated exposure control and iterative reconstruction technique. The dose-length product (DLP) was 1 621.29 mGy-cm. Findings: Scans through the lung bases are unremarkable. The liver, spleen, pancreas, gallbladder, adrenals and kidneys are within normal limits. No evidence of aortic aneurysm. No lymphadenopathy. No bowel obstruction or bowel wall thickening. There is no evidence to suggest acute appendicitis. Images through the pelvis were performed. Urinary bladder unremarkable. No pelvic mass seen. No ascit es. Impression: No significant abnormalities seen. Reviewed, dictated and finalized at [facility]. Impression: No significant abnormalities seen.
[2025-02-21 09:30] VITALS: BP 141/61; PULSE 67; RESP 17; TEMP 36.4; O2SAT 98
--- NOTE | 2025-02-21 09:51 | ED_ITS ---
HPI - Abdominal Pain General Chief Complaint: Abdominal Pain Stated Complaint: RLQ abd pain Time Seen by Provider: 02/21/25 09:42 History of Present Illness HPI narrative: Pt presents with nausea, diarrhea and RLQ abdominal pain for 2 days. Pt has had appendectomy in past and cholecystectomy. Pt denies fever or urinary symptoms. Pt has not noted any blood in diarrhea. Related Data Allergies Allergy/AdvReac Type Severity Reaction Status Date / Time prochlorperazine Allergy Intermediate Agitated Verified 02/21/25 09:29 clarithromycin Allergy Mild VIOLENTLY Verified 02/21/25 09:29 ILL WITH VOMITING sumatriptan Allergy Mild POUNDING Verified 02/21/25 09:29 HR, DIFFICULTY BREATHING diphenhydramine AdvReac Unknown GOES Verified 02/21/25 09:29 CRAZY METOCLOPRAMIDE HCL AdvReac Intermediate Jittery Uncoded 02/21/25 09:29 Review of Systems 2 Review of Systems: All systems reviewed & are unremarkable except as noted in HPI and below PMFSH Past Medical History Medical History Strunk cell tumor Diabetes mellitus Hypertension Arthritis Asthma Surgical History Surgical History H/O cardiac catheterization Exam 2 Const: General: healthy appearing and no acute distress Nutritional Appearance: well nourished Orientation/consciousness: patient oriented x3 Limitations: no limitations Eyes: EOM: EOMs intact bilaterally Neck: Neck: normal visual inspection Resp: Effort & Inspection: normal respiratory effort Auscultation: clear to auscultation bilaterally Cardio: Rate: regular rate Rhythm: regular rhythm GI: GI Palp: Yes Soft to palpation and Yes Tenderness to palpation present (GI) (rlq) Auscultation: normal bowel sounds Back/Spine/Pelvis: Back: no CVA tenderness Skin: General skin exam: normal color Rashes: no rashes Wounds: no wounds Neuro: General: patient oriented x3, moves all extremities and no meningeal signs Speech: normal speech Extrem: General: normal to inspection and no clubbing, cyanosis or edema Psych: Mental Status: mental status grossly normal Affect: normal affect Attitude: cooperative Course Vital Signs Vital signs: Vital Signs Temperature 97.5 F L 02/21/25 09:30 Pulse Rate 67 02/21/25 09:30 Respiratory Rate 17 02/21/25 09:30 Blood Pressure 141/61 H 02/21/25 09:30 Pulse Oximetry 98 02/21/25 09:30 Oxygen Delivery Room Air 02/21/25 09:30 Temperature 97.8 F 02/21/25 11:57 Pulse Rate 60 02/21/25 11:57 Respiratory Rate 16 02/21/25 11:57 Blood Pressure 116/90 02/21/25 11:57 Pulse Oximetry 97 02/21/25 11:57 Oxygen Delivery Room Air 02/21/25 09:30 MDM - Abdominal Pain MDM Narrative Medical decision making narrative: Pt has rlq pain and diarrhea so may have colitis given hx of appendectomy. could also have right sided diverticulitis or uti so will check labs and get ct and treat for pain and nausea. Lab Data 02/21/25 09:47 02/21/25 09:47 Labs: Lab Results 02/21/25 02/21/25 Range/Units 09:47 10:30 WBC 6.7 (4.5-10.0) K/mm3 RBC 4.14 L (4.2-5.4) M/mm3 Hgb 10.9 L (12.0-15.0) g/dL Hct 35.7 L (37.0-47.0) % MCV 86.2 (80-100) fl MCH 26.3 (26-34) pg MCHC 30.5 L (32-36) g/dl RDW 13.8 (11.5-14.5) % Plt Count 231 (150-375) k/mm3 MPV 9.7 (7.4-10.4) fl Immature Gran % (Auto) 0.3 (0-0.5) % Neut % (Auto) 59.0 (45.5-73.1) % Lymph % (Auto) 26.9 (18.3-44.2) % [place] % (Auto) 9.3 H (2.6-8.5) % Eos % (Auto) 3.9 (0-4.4) % Baso % (Auto) 0.6 (0.2-1.2) % Lymph # (Auto) 1.80 (0.9-3.2) K/mm3 [place] # (Auto) 0.6 (0.1-0.6) K/mm3 Eos # (Auto) 0.3 (0-0.3) K/mm3 Baso # (Auto) 0.0 (0.0-0.1) K/mm3 Abs Immat Gran (auto) 0.02 (0.00-0.031) K/mm3 Absolute Neuts (auto) 3.9 (1.3-6.7) K/mm3 Absolute Nucleated RBC 0.000 (0.0-0.012) K/mm3 Nucleated RBC % 0.0 (0.0-0.2) % Sodium 139 (137-145) mmol/L Potassium 4.0 (3.4-5.0) mmol/L Chloride 106 (98-107) mmol/L Carbon Dioxide 25 (22-30) mmol/L Anion Gap 8 (4-12) mmol/L BUN 15 (7-17) mg/dL Creatinine 0.84 (0.7-1.0) mg/dL Estim Creat Clear Calc 94 ml/min Estimated GFR > 60 (59 - ) Glucose 232 H (65-110) mg/dL Calcium 9.0 (8.4-10.2) mg/dL Total Bilirubin 0.7 (0.2-1.3) mg/dL AST 50 H (14-36) U/L ALT 32 (6-35) U/L Alkaline Phosphatase 134 H (38-126) U/L Total Protein 6.9 (6.3-8.2) g/dL Albumin 3.8 (3.5-5.1) g/dL Lipase 59 (23-300) U/L Urine Color Yellow (Yellow) Urine Appearance Clear (Clear) Urine pH 6.5 (5.0-9.0) Ur Specific [place] 1.043 H (1.001-1.035) Urine Protein Trace (Negative) mg/dL Urine Glucose (UA) 1+ H (Negative) mg/dL Urine Ketones Negative (Negative) mg/dL Ur Blood (Man) Negative (Negative) Urine Nitrate Negative (Negative) Urine Bilirubin Negative (Negative) Urine Urobilinogen 1.0 (<2.0) mg/dL Add Ur Microanalysis Reviewed Leukocyte Esterase Rfl 2+ H (Negative) NENA/UL Urine RBC 0-2 (0-2) /hpf Urine WBC 21-50 H (0-3) /hpf Ur Squamous Epith Cells Many H (Few) /hpf Urine Bacteria 1+ H /hpf Urine Casts 0-2 Imaging Data Radiologist's impression: ITS Impressions Abdomen/Pelvis CT 02/21/25 10:30 Impression: No significant abnormalities seen. Discharge Plan Discharge Clinical Impression: UTI (urinary tract infection) Patient Disposition: Home Condition: Stable Instructions: Antibiotic Form, Urinary Tract Infection in Women (DC) Patient Language: Armenian Prescriptions: New cefdinir 300 mg capsule 300 mg PO Q12H Qty: 20 0RF phenazopyridine [Pyridium] 200 mg tablet 200 mg PO TID Qty: 6 0RF hydrocodone-acetaminophen 5-325 mg tablet 1 tablet PO Q6H PRN (Reason: pain) Qty: 10 0RF Follow-up/Referrals: Breezy,Brissa Zamora MD [Primary Care Provider] -
[2025-02-21] MEDS: ONDANSETRON INJ 4 MG/2 ML VIAL IV PUSH (09:55)
[2025-02-21] MEDS: MORPHINE SULFATE (*CRX) 4 MG/ML INJ IV PUSH (09:55)
[2025-02-21 09:56] LABS: Basophils Percent Auto 0.6 % (0.2-1.2); Eosinophils Absolute Auto 0.3 K/mm3 (0-0.3); Eosinophils Percent Auto 3.9 % (0-4.4); Hematocrit 35.7 % (37.0-47.0); Hemoglobin 10.9 g/dL (12.0-15.0); Immature Granulocyte Absolute 0.02 K/mm3 (0.00-0.031); Immature Granulocyte Percent A 0.3 % (0-0.5); Lymphocytes Percent Auto 26.9 % (18.3-44.2); Mean Corpuscular HGB Conc 30.5 g/dl (32-36); Mean Corpuscular Hemoglobin 26.3 pg (26-34); Mean Corpuscular Volume 86.2 fl (80-100); Mean Platelet Volume 9.7 fl (7.4-10.4); Monocytes Absolute Auto 0.6 K/mm3 (0.1-0.6); Monocytes Percent Auto 9.3 % (2.6-8.5); Neutrophils Absolute Auto 3.9 K/mm3 (1.3-6.7); Platelet Count Result 231 k/mm3 (150-375); Red Blood Count 4.14 M/mm3 (4.2-5.4); Red Cell Distribution Width 13.8 % (11.5-14.5); White Blood Count 6.7 K/mm3 (4.5-10.0)
--- OUTSIDE RECORDS SUMMARY | 2025-02-21 10:06 | XMS_ITS | Clinical Summary ---
Author Organization [facility] Address [address] [place] [address] Care Team Providers Care Polysomnography Technologist Name Role Phone Adele Lagos MD Primary Care Provider [phone] Allergies Active Allergy Reactions Criticality Noted Date [...] 4 hours as needed for Pain. Active ondansetron (ZOFRAN) 4 MG Tablet Take 1 Tab by mouth every 8 hours as needed for Nausea. 10 Tab 0 5 Active atorvastatin (LIPITOR) 40 MG Tablet Take 40 mg by mouth daily. Active dicyclomine (BENTYL) 20 MG Tablet Take 20 mg by mouth daily. Active pantoprazole (Protonix) 40 MG Tablet Delayed Response Take 40 mg by mouth daily. Active baclofen (LIORESAL) 10 MG Tablet Take 1 Tablet by mouth 3 times daily. 30 Tablet 1 Active Lidocaine 4 % Patch 1 Patch by Transdermal route every 24 hours. 30 Patch 1 Active HYDROcodone-ac etaminophen (NORCO) 5-325 MG TabletIndicati ons:Thoracic back pain Take 1 Tablet by mouth every 6 hours as needed for Moderate or more severe pain. 12 Tablet 2 Active tiZANidine HCl 4 MG Capsule Take 4 mg by mouth every 6 hours as needed for Other. Active Insulin Disposable Pump (Omnipod 5 [id number] Pods Gen 5) Misc change pod every 2 days 5 Active doxepin (SINEQUAN) 75 MG Capsule Take 75 mg by mouth daily. 5 Active pregabalin (LYRICA) 50 MG Capsule Take 50 mg by mouth 3 times daily. 5 01/28/20 25 Discontin ued(Med List Clean Up) Active Problems Problem Noted Date Diagnosed Date Arachnoid cyst of spine 08/08/2020 Migraine without status migrainosus, not intract able 03/06/2018 Encounters Date Type Department Care Team Description 01/27/2025 8:13 PM CDT - 01/27/2025 9:35 PM CDT Emergency [facility] Emergency Dept. Services [address] [place] [address] Yanick Omalley MD Chronic pain Discharge Disposition: Discharged to home or Selfcare 01/27/2025 Travel 01/13/2025 8:21 PM CDT - 01/13/2025 9:26 PM CDT Emergency [facility] Emergency Dept. Services [address] [place] [address] Davin Villanueva MD Chronic left shoulder pain Discharge Disposition: Discharged to home or Selfcare 01/13/2025 Travel from Last 3 Months Social History Tobacco Use Types Packs/Day Years Used Date Smoking Tobacco: Never Smokeless Tobacco: Never Tobacco Cessation:Counseling Given: Not Answered Alcohol Use Standard Drinks/Week Comments No 0 (1 standard drink = 0.6 oz pur e alcohol) Comments No Sex and Gender Information Value Date Recorded Sex Assigned at Female 08/12/2024 6:07 PM VARNISH DIPPER Legal Sex Female 4:01 AM VARNISH DIPPER Gender Identity Female 08/12/2024 6:07 PM VARNISH DIPPER Sexual Orientation Not on file Last Filed Vital Signs Vital Sign Reading Time Taken Comments Blood Pressure 130/88 01/27/2025 9:30 PM CDT Pulse 64 01/27/2025 9:30 PM CDT Temperature 36.4 C (97.6 F) 01/27/2025 8:20 PM CDT Respiratory Rate 18 01/27/2025 9:30 PM CDT Oxygen Saturation 95% 01/27/2025 9:30 PM CDT Inhaled Oxygen Concentration - - Weight 129.3 kg (285 lb) 01/13/2025 8:23 PM CDT Height 170.2 cm (5' 7) 01/13/2025 8:23 PM CDT Body Mass Index 44.64 01/13/2025 8:23 PM CDT Plan of Treatment Health Maintenance Due Date Last Done Comments Hepatitis C Virus (HCV) Screening 1970 Mammogram 1970 Hepatitis B Immunization (1 of 3 - 19+ 3-dose series) 1989 HPV/Cotest 2000 Cologuard 2015 Colonoscopy 2015 Colorectal Cancer Screening 2015 Immunochemical Fecal Occult Blood 2015 Pneumococcal Immunization (50+ years) (2 of 2 - PCV) 10/02/2021 10/02/2020 SARS-COV-2 Immunization (4 - season) 2024 09/13/2021, 12/14/2020, 11/16/2020 Cervical Cancer Screening (CCS) 10/31/2025 Pap Smear 10/31/2025 10/31/2022, 03/15/2021 Respiratory Syncytial Virus (RSV) Immunization (Adult) (1 - 1-dose 75+ series) 2045 DTaP/Tdap/Td Immunization Discontinued 05/31/2007 TdaP Immunization Completed 05/31/2007 Pneumococcal Immunization Combined Discontinued 10/02/2020 Zoster Immunization Completed 09/13/2021, Influenza Immunization Completed 4, 06/16/2021, 09/29/2020, Additional history exists Human Papillomavirus (HPV) Immunization Aged Out No longer eligible based on patient's age to complete this topic Meningococcal Immunization (ACWY) Aged Out No longer eligible based on patient's age to complete this topic Rotavirus Immunization Aged Out No lo nger eligible based on patient's age to complete this topic Insurance [place] MEDICARE C [employer] [place] Care Teams Polysomnography Technologist Relationship Specialty Start Date End Date Adele Lagos MD [address] [place] [address] PCP - General Family Medicine 07/15/20
[2025-02-21 10:08] LABS: Alanine Aminotransferase 32 U/L (6-35); Albumin Level 3.8 g/dL (3.5-5.1); Alkaline Phosphatase 134 U/L (38-126); Anion Gap 8 mmol/L (4-12); Aspartate Amino Transferase 50 U/L (14-36); Bilirubin,Total 0.7 mg/dL (0.2-1.3); Blood Urea Nitrogen 15 mg/dL (7-17); Carbon Dioxide 25 mmol/L (22-30); Chloride 106 mmol/L (98-107); Estimated CRCL calculation 94 ml/min; Estimated Glomerular Filt Rate > 60; Glucose 232 mg/dL (65-110); Lipase 59 U/L (23-300); Sodium 139 mmol/L (137-145); Total Protein 6.9 g/dL (6.3-8.2)
--- OUTSIDE RECORDS SUMMARY | 2025-02-21 10:32 | XMS_ITS | Clinical Summary ---
Author Organization [facility] Address [address] [facility] [address] [address] [place] [address] Care Team Providers Care Cna Caregiver Name Role Phone Adele Lagos MD Primary Care Provider Allergies Active Allergy Reactions Criticality Noted Date [...] Other. Active Insulin Disposable Pump (Omnipod 5 [id number] Pods Gen 5) Misc change pod every [...] CDT - 01/27/2025 9:35 PM CDT Emergency [facility] Emergency Dept. Services [address] [place] [address] Yanick Omalley MD Chronic pain Discharge Disposition: Discharged to home or Selfcare 01/27/2025 Travel 01/13/2025 8:21 PM CDT - 01/13/2025 9:26 PM CDT Emergency [facility] Emergency Dept. Services [address] [place] [address] Davin Villanueva MD Chronic left shoulder pain [...] Sex Assigned at Female 08/12/2024 6:07 PM COATER HAND Legal Sex Female 4:01 AM COATER HAND Gender Identity Female 08/12/2024 6:07 PM COATER HAND Sexual Orientation Not on file Last Filed [...] MEDICARE [place] MEDICARE MEDICARE C [employer] [place], [place] [id number] [place] Care Teams Cna Caregiver Relationship Specialty Start Date End Date Adele Lagos MD [address] [place] [address] PCP - General Family Medicine 07/15/20
[2025-02-21 10:55] LABS: Add Urine Microscopic? YES; Appearance Urine Clear (Clear); Bacteria Urine 1+ /hpf; Bilirubin Urine Negative (Negative); Blood Urine Negative (Negative); Color Urine Yellow (Yellow); Glucose Urine UA 1+ mg/dL (Negative); Ketones Urine Negative (Negative); Leukocyte Esterase Ur 2+ LEU/UL (Negative); Need Manual Microscopic Reviewed; Nitrate Urine Negative (Negative); Non Pathogenic Casts 0-2; Protein Urine Trace mg/dL (Negative); RBC Urine 0-2 /hpf (0-2); Specific Grav Ur 1.043 (1.001-1.035); Squamous Epithelial Cell Urine Many /hpf (Few); WBC Urine 21-50 /hpf (0-3); pH Urine 6.5 (5.0-9.0)
[2025-02-21] MEDS: HYDROmorphone HCL INJ (*CRX) 2 MG/ML VIAL 0.5 MG IV PUSH (11:37)
[2025-02-21 11:57] VITALS: BP 116/90; PULSE 60; RESP 16; TEMP 36.6; O2SAT 97
== END 2025-02-21 11:59 | disposition home or self-care (01) ==
PROVIDERS: Emergency Provider Emergency Medicine; PCP Family Medicine
DX: N39.0 Urinary tract infection, site not specified (principal); J45.909 Unspecified asthma, uncomplicated; E11.9 Type 2 diabetes mellitus without complications; M19.90 Unspecified osteoarthritis, unspecified site
CPT/HCPCS: 36415; 74177; 80053; 81001; 83690; 85025; 96374; 96375; 99284; J1171; J2270; J2405; Q9967

== ENCOUNTER 2025-05-13 19:13 | Observation (INO) | payer MEDICARE, MEDICAID, SELFPAY ==
[2025-05-13] VITALS (22 sets, daily range): BP systolic 110–182; BP diastolic 59–108; PULSE 65–90; RESP 9–29; TEMP 36.8; O2SAT 95–99; BMI 43.4
--- NOTE | ~2025-05-13 | XR_ITS ---
EXAMINATION: XR chest 2V 05/13/2025 20:13 INDICATION: Chest pain PROCEDURE: 2 view chest COMPARISON: 12/03/2014 FINDINGS: The lungs are clear. The cardiomediastinal silhouette is within normal limits. There are no pleural effusions. There is no pneumothorax suspected. IMPRESSION: 1: NO ACUTE CARDIOPULMONARY DISEASE. Reviewed, dictated and finalized at location O.
--- NOTE | 2025-05-13 19:16 | ECG_ITS ---
Test Date: 2025-05-13 19:50:39 Measurements Intervals [place] Rate: 71 P: 82 WV: 159 QRS: -21 QRSD: 93 T: 71 QT: 391 QTc: 425 Interpretive Statements SINUS RHYTHM INCOMPLETE RIGHT BUNDLE BRANCH BLOCK LOW QRS VOLTAGE IN PRECORDIAL LEADS PATTERN CONSISTENT WITH PULMONARY DISEASE BORDERLINE ST-T WAVE ABNORMALITY- DIFFUSE LEADS BASELINE ARTIFACT- I, II, AVR, AVL, AVF BORDERLINE ECG No previous ECG available for comparison Electronically Signed On 05-14-2025 07:11:57 CDT by Wale Smith D.O.
--- OUTSIDE RECORDS SUMMARY | 2025-05-13 19:17 | XMS_ITS | Encounter Summary ---
Author Organization [facility] Address [address] [facility] [address] [place] [address] Phone Care Team Providers Care Development Writer Name Role Phone Brissa Tijerina MD Primary Care Provider U shannon Encounter Details Date Type Department Care Team (Late st Contact Info) Description 05/01/2025 Telephone [facility] [address] [place] [address] Lorena Villanueva [address] [place] [address] [place] [address] Social History Tobacco Use Types Packs/Day Years Used Date Smoking Tobacco: Never Assessed Comments Unknown Sex and Gender Information Value Date Recorded Sex Assigned at Not on file Legal Sex Female 11:09 AM EDT Gender Identity Not on file Sexual Orientation Not on file documented as of this encounter Miscellaneous Notes * Telephone Encounter - Meek Phelps MD - 05/01/2025 2:36 PM CDT CBC, RFP * Telephone Encounter - Lorena Villanueva - 05/01/2025 11:49 AM CDT What labs would you like for 05/10 apt documented in this encounter Plan of Treatment Not on file documented as of this encounter Visit Diagnoses Not on filedocumented in this encounter Care Teams Development Writer Relationship Specialty Start Date End Date Brissa Tijerina MD [address] [place] [phone] PCP - General Family Medicine 04/17/25 documented as of this encounter
--- OUTSIDE RECORDS SUMMARY | 2025-05-13 19:17 | XMS_ITS | Clinical Summary ---
Author Organization [facility] Address [address] [facility] [address] [place] [address] Care Team Providers Care Faith Healer Name Role Phone Adele Lagos MD Primary Care Provider [phone] Allergies Active Allergy Reactions Criticality Noted Date [...] Other. Active Insulin Disposable Pump (Omnipod 5 [id number] Pods Gen 5) Misc change pod every 2 days 5 Active doxepin (SINEQUAN) 75 MG Capsule Take 75 mg by mouth daily. 5 Active Active Problems Problem Noted Date Diagnosed [...] Sex Assigned at Female 08/12/2024 6:07 PM DOCUMENT CONTROL COORDINATOR Legal Sex Female 4:01 AM DOCUMENT CONTROL COORDINATOR Gender Identity Female 08/12/2024 6:07 PM DOCUMENT CONTROL COORDINATOR Sexual Orientation Not on file Last Filed [...] 2 - PCV) 10/02/2021 10/02/2020 SARS-COV-2 Immunization ( season) 2024 09/13/2021, 12/14/2020, 11/16/2020 Influenza Immunization (#1) 05/15/202505/15, 06/16/2021, 09/29/2020, Additional history exists Cervical Cancer Screening (CCS) 10/31/2025 Pap Smear 10/31/2025 10/31/2022, 03/15/2021 Respiratory Syncytial Virus (RSV) Immunization (Adult) (1 - 1-dose 75+ series) 2045 DTaP/Tdap/Td Immunization Discontinued 05/31/2007 TdaP Immunization Completed 05/31/2007 Pneumococcal Immunization Combined Discontinued 10/02/2020 Zoster Immunization Completed 09/13/2021, Human Papillomavirus (HPV) Immunization Aged Out No longer eligible based on patient's age to complete this topic Meningococcal Immunization (ACWY) Aged Out No longer eligible based on patient's age to complete this topic Rotavirus Immunization Aged Out No lo nger eligible based on patient's age to complete this topic Insurance [place]ICA[place] MEDICARE MEDICARE MEDICARE C [facility] [place]ICAID [place] Care Teams Faith Healer Relationship Specialty Start Date End Date Adele Lagos MD [address] [place] [address] PCP - General Family Medicine 07/15/20
--- OUTSIDE RECORDS SUMMARY | 2025-05-13 19:17 | XMS_ITS | Clinical Summary ---
Author Organization [facility] Address [address] [place] [address] Phone Care Team Providers Care Boat Outfitter Name Role Phone Unavailable Primary Care Provider Unavailabl e Social History Tobacco Use Types Packs/Day Years Used Date Smoking Tobacco: Never Assessed Comments Unknown Sex and Gender Information Value Date Recorded Sex Assigned at Not on file Legal Sex Female 6:40 PM HYDRO PNEUMATIC TESTER Gender Identity Not on file Sexual Orientation Not on file Plan of Treatment Health Maintenance Due Date Last Done Comments Diagnostic Colonoscopy 1970 MMR Vaccines (1 of 1 - Stand daryl series) 1971 Depression Screening 1982 DTaP/Tdap/Td Vaccines (1 - Tdap) 1989 Hepatitis B Vaccines (1 of 3 - 19+ 3-dose series) 1989 Lipid Panel 1990 Pap Smear 1991 Cervical Cancer Screening 2000 HPV/Co-Testing 2000 Screening for Diabetes 2005 Breast Cancer Screening 2010 CT Colonography 2015 Colorectal Cancer Screening 2015 FIT-DNA (Cologuard) 2015 Fecal Immunochemical Testing (FIT) 2015 Fecal Occult Blood (FOBT) 2015 Flexible Sigmoidoscopy 2015 Screening Colonoscopy 2015 HCPOA Document on File 2020 Pneumococcal Vaccines (50+) (1 of 1 - PCV) 2020 Zoster (Shingles) Vaccine (1 of 2) 2020 COVID-19 Vaccine ( - 2023-2 5 season) 2024 Influenza Vaccine (#1) 2025 HIB Vaccines Aged Out No longer eligi ble based on patient's age to complete this topic HPV Vaccines Aged Out No longer eligi ble based on patient's age to complete this topic Hepatitis A Vaccines Aged Out No long er eligible based on patient's age to complete this topic IPV Vaccines Aged Out No longer eligi ble based on patient's age to complete this topic Meningococcal B Vaccine Aged Out No l onger eligible based on patient's age to complete this topic Meningococcal Vaccine (ACWY) Aged Out No longer eligible based on patient's age to complete this topic Rotavirus Vaccines Aged Out No longer eligible based on patient's age to complete this topic
--- OUTSIDE RECORDS SUMMARY | 2025-05-13 19:17 | XMS_ITS | Clinical Summary ---
Author Organization [facility] Address [address] [place] [address] Phone Care Team Providers Care Car Cooper Name Role Phone Brissa Tijerina MD Primary Care Provider U navailable Allergies Active Allergy Reactions Criticality Noted Date Comments Clarithromycin Hives,Nausea,Vomiting High 01/20/2007 Biaxin Diphenhydramine Anxiety,Other (see comments),Rash High 10/20/2014 Irritability diphenhydramine hydrochloride Haloperidol High 05/01/2025 Lorazepam Anxiety Low 11/18/2014 Meperidine Other (see comments) 03/01/2009 Metoclopramide Other (see comments) 10/20/2014 with IM/IV injection-anxiety inducing Irritability Prochlorperazine Anxiety,Other (see comments) Low 10/20/2014 Irritability Compazine Sumatriptan Itching,Other (see comments),Palpitation s Low 01/20/2007 Other reaction(s): N/A * sumatriptan succinate Medications albuterol HFA (PROVENTIL HFA;VENTOLIN HFA) 108 (90 Base) MCG/ACT inhaler Inhale 2 puffs every 4 (four) hours if needed for shortness of breath Active amLODIPine (NORVASC) 5 MG tablet Take 5 mg by mouth in the morning and 5 mg in the evening. Active amLODIPine (NORVASC) 5 MG tablet Take 5 mg by mouth in the morning. 12/20/19 21 Active atorvastatin (LIPITOR) 80 MG tablet Take 1 tablet every day by oral route. Active atorvastatin (LIPITOR) 40 MG tablet Take 80 mg by mouth in the morning. 12/20/19 21 Active baclofen (LIORESAL) 10 MG tablet Take 10 mg by mouth in the morning and 10 mg at noon and 10 mg in the evening. 04/27/20 21 Active carvedilol (COREG) 6.25 MG tablet Take 6.25 mg by mouth in the morning and 6.25 mg in the evening. Active carvedilol (COREG) 12.5 MG tablet take one tablet twice daily 03/24/20 25 Active cefdinir (OMNICEF) 300 MG capsule TAKE ONE CAPSULE EVERY TWELVE HOURS UNTIL GONE 02/22/20 25 Active venlafaxine XR (EFFEXOR-XR) 37.5 MG 24 hr capsule TAKE ONE CAPSULE BY MOUTH EVERY DAY FOR ONE WEEK; THEN take TWO capsules EVERY DAY thereafter Active tiZANidine (ZANAFLEX) 4 MG capsule Take 4 mg by mouth A ctive TIZANIDINE HCL PO Take 4 mg by mouth 07/09/20 24 Active tiZANidine (ZANAFLEX) 4 MG tablet TAKE ONE TABLET BY MOUTH EVERY 6 HOURS NEEDED FOR ANXIETY Active sulfamethoxazol e-trimethoprim 800-160 MG per tablet TAKE ONE TABLET BY MOUTH EVERY TWELVE HOURS UNTIL GONE 01/26/20 25 Active rOPINIRole (REQUIP) 0.25 MG tablet TAKE 1 TO 3 TABLETS BY MOUTH AT BEDTIME Active pantoprazole (PROTONIX) 40 MG EC tablet Take 40 mg by mouth in the morning. 07/09/20 24 Active pantoprazole (PROTONIX) 40 MG EC tablet Take 40 mg by mouth 1 (one) time each day Active ondansetron (ZOFRAN) 4 MG tablet Take 4 mg by mouth 08/25/20 15 Active ondansetron ODT (ZOFRAN-ODT) 4 MG dispersible tablet dissolve 1 tablet on the tongue every 6-8 hours as needed for nausea Active metoprolol succinate XL (TOPROL XL) 50 MG 24 hr tablet Take 50 mg by mouth 1 (one) time each day Active metoprolol succinate XL (TOPROL-XL) 100 MG 24 hr tablet Take 50 mg by mouth 05/29/20 23 Active cephalexin (KEFLEX) 500 MG capsule take one capsule by mouth every twelve hours for 7 days 03/23/20 25 Active citalopram (CeleXA) 40 MG tablet Take 40 mg by mouth 1 (one) time each day Active citalopram (CeleXA) 40 MG tablet Take 40 mg by mouth in the morning. 05/29/20 23 Active clindamycin (CLEOCIN) 300 MG capsule TAKE ONE CAPSULE EVERY 6 HOURS UNTIL GONE Active Continuous Glucose Sensor (Dexcom G7 Sensor) misc CHANGE SENSOR EVERY 10 DAYS PER AXLE BEARING POLISHER 02/23/20 25 Active dicyclomine (BENTYL) 20 MG tablet Take 20 mg by mouth in the morning and 20 mg in the evening. Active dicyclomine (BENTYL) 20 MG tablet Take 20 mg by mouth 05/29/20 23 Active doxepin (SINEquan) 50 MG capsule Take 75 mg by mouth in the morning. Active doxepin (SINEquan) 75 MG capsule Take 75 mg by mouth 1 (one) time each day Active Aimovig 70 MG/ML solution auto-injector inject 70 mg subcutaneously once monthly as directed Active fluconazole (DIFLUCAN) 150 MG tablet Take 1 tablet now and may repeat in 3 days if needed 04/28/20 25 Active glucose blood (OneTouch Ultra Test) test strip use 1 strip to check glucose three times daily 07/01/20 22 Active HYDROcodone-angel taminophen (NORCO) 5-325 MG per tablet TAKE ONE TABLET BY MOUTH EVERY 6 HOURS NEEDED FOR PAIN 11/13/19 22 Active HYDROcodone-angel taminophen (LORCET PLUS) 10-325 MG per tablet TAKE ONE TABLET BY MOUTH EVERY 8 HOURS NEEDED for acute pain 01/26/20 25 Active HYDROcodone-angel taminophen (NORCO) 7.5-325 MG per tablet 05/01/20 25 Active hydrOXYzine (ATARAX) 25 MG tablet TAKE 1 TO 2 TABLETS AT BEDTIME Active Insulin Disposable Pump (Omnipod 5 [id number] Pods Gen 5) misc change pod every 2 days 03/28/20 25 Active insulin glargine (LANTUS) 100 UNIT/ML injection Inject 80 Units under the skin in the morning. Active insulin glargine (Lantus) 100 UNIT/ML injection Inject 80 Units under the skin 03/27/20 23 Active HumaLOG 100 UNIT/ML solution infuse up to 150 units per day via insulin pump Active Insulin Lispro, 1 Unit Dial, (HumaLOG KWIKPEN) 100 UNIT/ML solution pen-injector Inject under the skin in the morning and at noon and in the evening. 01/29/20 24 Active ketorolac (TORADOL) 10 MG tablet Take 10 mg by mouth every 6 hours as needed 12/16/19 25 Active Lidocaine 4 % patch Place 1 patch on the skin 07/13/20 21 Active Resolved Problems Problem Noted Date Diagnosed Date Resolved Date Chronic back pain 05/01/2025 05/01/2025 Malignant neoplasm of skin 05/01/2025 0 05/01/2025 Mycosis 04/28/2025 05/01/2025 Anemia 04/20/2025 05/01/2025 Persistent depressive disorder 03/28/2025 05/01/2025 Restless legs 03/28/2025 05/01/2025 Edema of lower extremity 03/24/2025 Dyspnea on exertion 02/10/2025 05/01/20 25 Palpitations 02/10/2025 05/01/2025 Bilateral cramp of muscle of lower limbs 11/02/2024 05/01/2025 Gastroesophageal reflux disease 11/02/2024 05/01/2025 Gastroparesis syndrome 11/02/202405/01 Morbid obesity 11/02/2024 05/01/2025 Pain in left shoulder 11/02/20242024 Primary insomnia 11/02/2024 05/01/2025 Recurrent major depression in remission 11/02/2024 05/01/2025 Neuropathy due to type 2 diabetes mellitus 07/05/2024 05/01/2025 Overview (05/01/2025): following with endocrinology Cervical radiculopathy 06/21/202405/01 Lumbar spondylosis 06/21/2024 Abdominal pain 06/16/2024 05/01/2025 Coronary arteriosclerosis 03/28/2024 Hypercholesterolemia 03/28/2024 025 Preinfarction syndrome 05/07/202305/01 Atypical chest pain 04/18/2023 05/01/20 25 Second degree uterine prolapse 10/31/2022 05/01/2025 Atypical squamous cells of u ndetermined significance on cervical Papanicolaou smear 03/22/2021 05/01/2025 Overview (05/01/2025): 10/31/2022 - ASCUS with positive high risk HPV. Essential hypertension 02/14/202105/01 Type 2 diabetes mellitus 02/14/2021 Spinal arachnoid cyst 08/08/20202024 Migraine 03/06/2018 05/01/2025 Encounters Date Type Department Care Team Description 05/02/2025 Telephone [facility] [address] [place] [phone] Rich Lorena 05/01/2025 Documentation Only [facility] [address] [place] [address] Rich Lorena 05/01/2025 Orders Only [facility] [address] [place] [phone] Lorena Villanueva 05/01/2025 Telephone [facility] [address] [place] [phone] Rich Lorena from Last 3 Months Immunizations Immunization Administration Dates Next Due Influenza, Quadrivalent, Preservative Free 10/12 Influenza, Recombinant, Quadrivalent, Pf 021,06/28/2020 Influenza, Unspecified 05/31/2024,06/24/2014, Moderna SARS-COV-2 09/13/2021,12/14/2020, 021 Pneumococcal Polysaccharide 10/02/2020 Shingrix 09/13/2021,06/16/2021 Tdap 05/31/2007 Family History Medical History Relation Comments Diabetes Father Heart disease Father Cancer Mother Heart disease Mother Relation Status Comments Father Mother Social History Tobacco Use Types Packs/Day Years Used Date Smoking Tobacco: Never Assessed Comments Unknown Sex and Gender Information Value Date Recorded Sex Assigned at Not on file Legal Sex Female 11:09 AM EDT Gender Identity Not on file Sexual Orientation Not on file Plan of Treatment Health Maintenance Due Date Last Done Comments Breast Cancer Screening 1970 Hepatitis B Vaccine (1 of 3 - 19+ 3-dose series) 1989 Colorectal Cancer Screening: Annual FOBT 2019 Colorectal Cancer Screening: Colonoscopy 2019 Colorectal Cancer Screening: Sigmoidoscopy 2019 Pneumococcal Vaccine: 50+ Ye ars (2 of 2 - PCV) 10/02/2021 10/02/2020 Diabetes: Hemoglobin A1C 04/17/2025 04/17/2023 Diabetes: Ophthalmology Exam 04/17/2025 Diabetes: Pedal Pulse Checked 04/17/2025 Diabetes: Sensory Foot Exam 04/17/2025 Diabetes: Visual Foot Exam 04/17/2025 Influenza Vaccine (#1) 2025 , 06/16/2021, 06/28/2020, Additional history exists Insurance Medicare Member Subscriber Plan / Payer (Ef fective 2025-Present) Name:Leti White Relation to Subscriber:Self Name:Leti White Payer ID:[id number] (NAIC) Group ID:Not on file Type:Not on file Address: [address] [facility] Medicare Medicare [facility] [place] [address] Care Teams Car Cooper Relationship Specialty Start Date End Date Brissa Tijerina MD [address] [place] [phone] PCP - General Family Medicine 04/17/25
--- OUTSIDE RECORDS SUMMARY | 2025-05-13 19:17 | XMS_ITS | Encounter Summary ---
Author Organization [facility] Address [address] [facility] [address] [place] [address] Phone Care Team Providers Care Sap Ariba Consultant Name Role Phone Brissa Tijerina MD Primary Care Provider U shannon Encounter Details Date Type Department Care Team (Late st Contact Info) Description 05/01/2025 Documentation Only [facility] [address] [facility] [address] [place] [address] [place] [address] Social History Tobacco Use Types Packs/Day Years Used Date Smoking Tobacco: Never Assessed Comments Unknown Sex and Gender Information Value Date Recorded Sex Assigned at Not on file Legal Sex Female 11:09 AM EDT Gender Identity Not on file Sexual Orientation Not on file documented as of this encounter Plan of Treatment Scheduled Orders Name Type Priority Associated Diagnoses Orde r Schedule CBC and differential Lab Routine Hypertension Other acute kidney failure (HCC) Expected: 05/01/2025, Expires: 06/01/2026 Renal function panel Lab Routine Hypertension Other acute kidney failure (HCC) Expected: 05/01/2025, Expires: 06/01/2026 documented as of this encounter Visit Diagnoses Diagnosis Hypertension Other acute kidney failure (HCC) documented in this encounter Care Teams Sap Ariba Consultant Relationship Specialty Start Date End Date Brissa Tijerina MD [address] [place] [phone] PCP - General Family Medicine 04/17/25 documented as of this encounter
[2025-05-13] MEDS: ASPIRIN 81 MG CHEWABLE TABLET 324 MG PO (19:53)
[2025-05-13] MEDS: NITROGLYCERIN SL 0.4 MG TABLET SUBLINGUAL (19:55)
[2025-05-13 19:59] LABS: Hematocrit 32.8 % (37.0-47.0); Hemoglobin 10.5 g/dL (12.0-15.0); Immature Granulocyte Percent A 0.3 % (0-0.5); Lymphocytes Absolute Auto 1.69 K/mm3 (0.9-3.2); Mean Corpuscular HGB Conc 32.0 g/dl (32-36); Mean Corpuscular Hemoglobin 27.1 pg (26-34); Mean Corpuscular Volume 84.8 fl (80-100); Nucleated Red Blood Cells Absolute Auto 0.000 K/mm3 (0.0-0.012); Nucleated Red Blood Cells Perc 0.0 % (0.0-0.2); Platelet Count Result 177 k/mm3 (150-375); Red Blood Count 3.87 M/mm3 (4.2-5.4); White Blood Count 6.1 K/mm3 (4.5-10.0)
[2025-05-13 20:10] LABS: Alanine Aminotransferase 33 U/L (6-35); Albumin Level 3.8 g/dL (3.5-5.1); Alkaline Phosphatase 144 U/L (38-126); Anion Gap 7 mmol/L (4-12); Aspartate Amino Transferase 48 U/L (14-36); Bilirubin,Total 0.7 mg/dL (0.2-1.3); Blood Urea Nitrogen 16 mg/dL (7-17); Calcium 9.0 mg/dL (8.4-10.2); Carbon Dioxide 23 mmol/L (22-30); Chloride 108 mmol/L (98-107); Estimated CRCL calculation 86 ml/min; Estimated Glomerular Filt Rate > 60; Glucose 160 mg/dL (65-110); Lipase 78 U/L (23-300); Potassium 3.8 mmol/L (3.4-5.0); Sodium 138 mmol/L (137-145); Total Protein 7.2 g/dL (6.3-8.2)
[2025-05-13 20:11] LABS: INR 1.0; Partial Thromboplastin Time 26.2 Seconds (22.3-36.8); Prothrombin Time 13.1 Seconds (11.1-14.7)
[2025-05-13 20:21] LABS: NT Pro B Type Natriuretic Pept 211 pg/mL (19.9-100); Troponin I < 0.012 ng/mL (0.000-0.034)
--- NOTE | 2025-05-13 20:31 | ED.GENADULT ---
HPI - General Adult General Chief complaint: Chest Pain Stated complaint: chest pain Time Seen by Provider: 05/13/25 19:27 History of Present Illness HPI narrative: Patient 54-year-old female presents emergency department with chief complaint of chest pain. Patient reports that since yesterday she has been having intermittent episodes worse with exertion of midsternal chest pain that radiates to her back. Patient reports that she has also been getting short of breath with exertion reports whenever she walks a the 14 steps to her apartment patient states she normally can do this without difficulty patient reports no peripheral edema does report that she had a cardiac catheterization done in [facility] back in February and was told that she had some blockages but did not require stenting at that time and was medically managed the patient reports that she is on Coreg and reports that she was on a statin with a decreased it but started having muscle aches and that has been held recently. Related Data Allergies Allergy/AdvReac Type Severity Reaction Status Date / Time prochlorperazine Allergy Intermediate Agitated Verified 02/21/25 09:29 clarithromycin Allergy Mild VIOLENTLY Verified 02/21/25 09:29 ILL WITH VOMITING sumatriptan Allergy Mild POUNDING Verified 02/21/25 09:29 HR, DIFFICULTY BREATHING diphenhydramine AdvReac Unknown GOES Verified 02/21/25 09:29 CRAZY METOCLOPRAMIDE HCL AdvReac Intermediate Jittery Uncoded 02/21/25 09:29 Review of Systems Review of Systems: A 10 system review of systems was completed on the patient and is negative except for what is stated in the HPI. Nursing and ancillary documentation was reviewed. [facility] Past Medical History Medical History Tony cell tumor Diabetes mellitus Hypertension Arthritis Asthma Surgical History Surgical History H/O cardiac catheterization Exam Narrative: GENERAL: Well-appearing, well-nourished, and in no acute distress. HEAD: Normocephalic, atraumatic. EYES: PERRLA and EOMI. ENT: Nares clear, no rhinorrhea or epistaxis. Mucous membranes moist. NECK: Supple. CHEST: Clear to auscultation. No respiratory distress. HEART: Regular rate and rhythm. No murmur heard. Normal peripheral pulses. ABDOMEN: Soft, nontender, nondistended, normal active bowel sounds. EXTREMITIES: Normal range of motion. No edema. SKIN: Warm, dry, no rash. NEURO: No focal deficits. Alert and oriented x3. PSYCH: Normal mood and affect. Course Vital Signs Vital signs: Vital Signs Temperature 36.8 C 05/13/25 19:25 Pulse Rate 84 05/13/25 19:25 Respiratory Rate 21 H 05/13/25 19:25 Blood Pressure 182/67 H 05/13/25 19:25 Pulse Oximetry 97 05/13/25 19:25 Oxygen Delivery Room Air 05/13/25 19:25 Temperature 36.8 C 05/13/25 19:25 Pulse Rate 73 05/13/25 19:25 Respiratory Rate 21 H 05/13/25 19:25 Blood Pressure 182/67 H 05/13/25 19:25 Pulse Oximetry 98 05/13/25 19:25 Oxygen Delivery Room Air 05/13/25 19:25 Medical Decision Making [facility] Narrative Medical decision making narrative: Differential diagnosis includes ACS, unstable angina, stable angina Initial EKG showed no evidence of ST elevations Initial troponin was negative D-dimer was negative He was slightly elevated to 211 The patient is pain was not improving nitroglycerin did slightly improve with morphine. Given the patient is having exertional angina and having worsening symptoms with the a catheterization that was apparently positive for disease but did not require stents back in February case was discussed with the hospitalist for admission for observation Vital Signs Vital Signs: Vital Signs Temperature 36.8 C 05/13/25 19:25 Pulse Rate 84 05/13/25 19:25 Respiratory Rate 21 H 05/13/25 19:25 Blood Pressure 182/67 H 05/13/25 19:25 Pulse Oximetry 97 05/13/25 19:25 Oxygen Delivery Room Air 05/13/25 19:25 Temperature 36.8 C 05/13/25 19:25 Pulse Rate 73 05/13/25 19:25 Respiratory Rate 21 H 05/13/25 19:25 Blood Pressure 182/67 H 05/13/25 19:25 Pulse Oximetry 98 05/13/25 19:25 Oxygen Delivery Room Air 05/13/25 19:25 Lab Data 05/13/25 19:52 05/13/25 19:52 Labs: Lab Results 05/13/25 05/13/25 Range/Units 19:52 19:52 WBC 6.1 (4.5-10.0) K/mm3 RBC 3.87 L (4.2-5.4) M/mm3 Hgb 10.5 L (12.0-15.0) g/dL Hct 32.8 L (37.0-47.0) % MCV 84.8 (80-100) fl MCH 27.1 (26-34) pg MCHC 32.0 (32-36) g/dl RDW 14.0 (11.5-14.5) % Plt Count 177 (150-375) k/mm3 MPV 9.4 (7.4-10.4) fl Immature Gran % (Auto) 0.3 (0-0.5) % Neut % (Auto) 55.4 (45.5-73.1) % Lymph % (Auto) 27.9 (18.3-44.2) % [place] % (Auto) 11.1 H (2.6-8.5) % Eos % (Auto) 4.3 (0-4.4) % Baso % (Auto) 1.0 (0.2-1.2) % Lymph # (Auto) 1.69 (0.9-3.2) K/mm3 [place] # (Auto) 0.7 H (0.1-0.6) K/mm3 Eos # (Auto) 0.3 (0-0.3) K/mm3 Baso # (Auto) 0.1 (0.0-0.1) K/mm3 Abs Immat Gran (auto) 0.02 (0.00-0.031) K/mm3 Absolute Neuts (auto) 3.4 (1.3-6.7) K/mm3 Absolute Nucleated RBC 0.000 (0.0-0.012) K/mm3 Nucleated RBC % 0.0 (0.0-0.2) % PT 13.1 (11.1-14.7) Seconds INR 1.0 APTT 26.2 (22.3-36.8) Seconds D-Dimer 0.28 Cancelled (<0.48) ug/mL Sodium 138 (137-145) mmol/L Potassium 3.8 (3.4-5.0) mmol/L Chloride 108 H (98-107) mmol/L Carbon Dioxide 23 (22-30) mmol/L Anion Gap 7 (4-12) mmol/L BUN 16 (7-17) mg/dL Creatinine 0.90 (0.7-1.0) mg/dL Estim Creat Clear Calc 86 ml/min Estimated GFR > 60 (59 - ) Glucose 160 H (65-110) mg/dL Calcium 9.0 (8.4-10.2) mg/dL Total Bilirubin 0.7 (0.2-1.3) mg/dL AST 48 H (14-36) U/L ALT 33 (6-35) U/L Alkaline Phosphatase 144 H (38-126) U/L Troponin I < 0.012 (0.000-0.034) ng/mL NT-Pro-B Natriuret Pep 211 H (19.9-100) pg/mL Total Protein 7.2 (6.3-8.2) g/dL Albumin 3.8 (3.5-5.1) g/dL Lipase 78 (23-300) U/L Discharge Plan Discharge Clinical Impression: Chest pain Patient Disposition: Still a Patient Condition: Stable Patient Language: Turkmen Prescriptions: No Action cefdinir 300 mg capsule 300 mg PO Q12H Qty: 20 0RF phenazopyridine [Pyridium] 200 mg tablet 200 mg PO TID Qty: 6 0RF hydrocodone-acetaminophen 5-325 mg tablet 1 tablet PO Q6H PRN (Reason: pain) Qty: 10 0RF Follow-up/Referrals: Breezy,Brissa Zamora MD [Primary Care Provider, Unknown] Time of Disposition: 21:33
[2025-05-13] MEDS: MORPHINE SULFATE (*CRX) 4 MG/ML INJ IV PUSH ×2 (21:11→22:26)
--- NOTE | 2025-05-13 22:02 | P.HP_ITS ---
H&P: HPI History of Present Illness Date/Time: 05/13/25 22:02 Chief Complaint: Chest pain Narrative: 54-year-old female past medical history of Jean Claude cell tumor, diabetes, hypertension and asthma presents the hospital with chest pain. Patient states that yesterday she started having intermittent chest pain that would radiate to her back. She also states that she had some nausea denies jaw pain. Or low back pain. She states that this is also causing shortness of breath with activity. Patient states that she had a cardiac catheterization in February but did not require a stent at that time. She is med compliant with her Coreg. Pain is not reproducible Lab work shows hemoglobin of 10.5, chloride of 108, glucose of 160, AST of 48 full so blood 44, 1st troponin is negative, proBNP of 211, EKG shows sinus rhythm rate of 71. Review of Systems Review of Systems: 12 systems were reviewed and are negativ e except for as per HPI. [facility] Past Medical History Medical History (Updated 05/13/25 @ 22:09 by Natividad Hull, PROCESS MOLD TECHNICIAN) Jean Claude cell tumor Diabetes mellitus Hypertension Arthritis Asthma Surgical History Surgical History H/O cardiac catheterization Meds Home Medications and Allergies Home Medications ?Medication ?Instructions ?Recorded ?Confirmed ?Type cefdinir 300 mg capsule 300 mg PO Q12H #20 caps 02/12 Rx hydrocodone 5 mg-acetaminophen 325 1 tablet PO Q6H PRN pain #10 tabs 02/21/25 Rx mg tablet phenazopyridine 200 mg tablet 200 mg PO TID 6 doses #6 tabs 02/21/25 Rx (Pyridium) Allergies Allergy/AdvReac Type Severity Reaction Status Date / Time prochlorperazine Allergy Intermediate Agitated Verified 02/21/25 09:29 clarithromycin Allergy Mild VIOLENTLY Verified 02/21/25 09:29 ILL WITH VOMITING sumatriptan Allergy Mild POUNDING Verified 02/21/25 09:29 HR, DIFFICULTY BREATHING diphenhydramine AdvReac Unknown GOES Verified 02/21/25 09:29 CRAZY METOCLOPRAMIDE HCL AdvReac Intermediate Jittery Uncoded 02/21/25 09:29 Vital Signs Vital Signs - 24 hr 05/13/25 19:25 05/13/25 19:25 05/13/25 19:25 Temperature 98.2 F Pulse Rate 84 73 Respiratory Rate 21 H Blood Pressure 182/67 H Pulse Oximetry 97 98 Oxygen Delivery Room Air Room Air Exam Narrative: General: well appearing, appears stated age. HEENT: normocephalic, atraumatic. Mucous membranes moist. EOMI, PERRLA, bilateral sclera anicteric, no conjunctival injection. Neck supple without JVD, lymphadenopathy, or bruit. Respiratory: clear to ascultation bilaterally. No rales/rhonic/wheezes. Cardiovascular: Regular rate and rhythm, normal S1-S2 upon ascultation. No murmurs, rubs, or clicks. PMI is nondisplaced, capillary refill less than 3 second. Abdomen: Soft, round, no pulsatile masses, nondistended and nontender. No rebound, no guarding. No CVA tenderness, no hepatosplenomegaly. Bowel sounds present to all four quadrants. No high pitch or tinkling sounds, resonant to percussion. Extremities: No cyanosis, clubbing, or edema present. Pulses are palpable 2/2. Active ROM to all four extremities. Neuro: Alert and orientated x 4. PERRLA. Cranial nerves 2-12 intact without focal deficit. Skin: Warm, dry, and intact, without rash, erythema, or lesion. Psych: pleasant, cooperative, normal speech, normal affect, no hallucinations, no dysarthia H&P: Results Labs Labs: Short CBC 05/13/25 Range/Units 19:52 WBC 6.1 (4.5-10.0) K/mm3 Hgb 10.5 L (12.0-15.0) g/dL Hct 32.8 L (37.0-47.0) % Plt Count 177 (150-375) k/mm3 BMP 05/13/25 19:52 Sodium 138 Potassium 3.8 Chloride 108 H Carbon Dioxide 23 BUN 16 Creatinine 0.90 Glucose 160 H Calcium 9.0 Cardiac Enzymes 05/13/25 Range/Units 19:52 Troponin I < 0.012 (0.000-0.034) ng/mL Liver Function 05/13/25 Range/Units 19:52 Total Bilirubin 0.7 (0.2-1.3) mg/dL AST 48 H (14-36) U/L ALT 33 (6-35) U/L Alkaline Phosphatase 144 H (38-126) U/L Albumin 3.8 (3.5-5.1) g/dL Assessment and Plan Assessment and plan (1) Chest pain: Code(s): R07.9 - Chest pain, unspecified Status: Acute Assessment and Plan: Cardiology consult Aspirin given in ED Weight based Lovenox Nitro paste Trend troponins with EKGs NPO midnight (2) Diabetes mellitus: Code(s): E11.9 - Type 2 diabetes mellitus without complications Status: Acute Assessment and Plan: Patient has Dexcom and insulin pump on Patient will need diabetic diet (3) Hypertension: Code(s): I10 - Essential (primary) hypertension Status: Acute Assessment and Plan: Waiting on home med rec Quality VTE Prophylaxis VTE prophylaxis: mechanical ordered and pharmacologic ordered Hospitalist MIPS Advance Care Plan I have confirmed that the patient's Advanced Care Plan is present, code status is documented, or surrogate decision maker is listed in patient medical record.: Yes
--- NOTE | 2025-05-13 22:11 | ECG_ITS ---
Test Date: 2025-05-13 22:22:28 Measurements Intervals [place] Rate: 65 P: 76 CA: 164 QRS: -6 QRSD: 89 T: 61 QT: 405 QTc: 421 Interpretive Statements SINUS RHYTHM DELAYED PRECORDIAL R/S TRANSITION CONSIDER RIGHT VENTRICULAR CONDUCTION DELAY BASELINE ARTIFACT- I, II, III, AVR, AVL, AVF BORDERLINE ECG Compared to ECG 05/13/2025 19:50:39 NO SIGNIFICANT CHANGE Electronically Signed On 05-14-2025 07:13:57 CDT by Wale Smith D.O.
[2025-05-13] MEDS: ENOXAPARIN 80 MG/0.8 ML SYRINGE SUB-Q (22:27)
[2025-05-13] MEDS: ENOXAPARIN 60 MG/0.6 ML SYRINGE 45 MG SUB-Q (22:27)
--- NOTE | 2025-05-13 22:41 | ADMGEN ---
This patient, Leti White, was admitted to IMU Room 209-01. Patient/family oriented to hospital policies and general routines including ID bracelet, bed and alarms, visiting hours, pain management, procedures, bathroom and other care routines, personal items, smoking policy, room service/diet, and visiting hours. Information on how to activate the Rapid Response Team has been discussed. Patient/Family are encouraged to report perceived risks to care and to ask questions if they do not understand what they are told or what they should do.
[2025-05-13 22:53] LABS: Troponin I < 0.012 ng/mL (0.000-0.034)
[2025-05-14] VITALS (15 sets, daily range): BP systolic 126–158; BP diastolic 48–88; PULSE 66–82; RESP 16–19; TEMP 36.3–37.1; O2SAT 92–98
[2025-05-14] MEDS: NITROGLYCERIN OINTMENT 1 INCH DOSE TRANSDERM
--- NOTE | 2025-05-14 00:49 | ECG_ITS ---
Test Date: 2025-05-14 00:57:08 Measurements Intervals [place] Rate: 65 P: 77 MN: 158 QRS: -7 QRSD: 94 T: 70 QT: 396 QTc: 414 Interpretive Statements SINUS RHYTHM INCOMPLETE RIGHT BUNDLE BRANCH BLOCK BORDERLINE ST-T WAVE ABNORMALITY- HIGH LATERAL LEADS BASELINE ARTIFACT- I, II, III, AVR, AVL, AVF BORDERLINE ECG Compared to ECG 05/13/2025 22:22:28 No significant changes Electronically Signed On 05-14-2025 07:12:47 CDT by Wale Smith D.O.
[2025-05-14 00:53] LABS: Hematocrit 34.1 % (37.0-47.0); Hemoglobin 10.8 g/dL (12.0-15.0); Immature Granulocyte Percent A 0.3 % (0-0.5); Lymphocytes Absolute Auto 2.15 K/mm3 (0.9-3.2); Mean Corpuscular HGB Conc 31.7 g/dl (32-36); Mean Corpuscular Hemoglobin 27.3 pg (26-34); Mean Corpuscular Volume 86.1 fl (80-100); Nucleated Red Blood Cells Absolute Auto 0.000 K/mm3 (0.0-0.012); Nucleated Red Blood Cells Perc 0.0 % (0.0-0.2); Platelet Count Result 219 k/mm3 (150-375); Red Blood Count 3.96 M/mm3 (4.2-5.4); White Blood Count 6.9 K/mm3 (4.5-10.0)
[2025-05-14 01:03] LABS: Anion Gap 6 mmol/L (4-12); Blood Urea Nitrogen 16 mg/dL (7-17); Calcium 9.4 mg/dL (8.4-10.2); Carbon Dioxide 26 mmol/L (22-30); Chloride 108 mmol/L (98-107); Estimated CRCL calculation 80 ml/min; Estimated Glomerular Filt Rate 59; Glucose 133 mg/dL (65-110); Potassium 4.0 mmol/L (3.4-5.0); Sodium 140 mmol/L (137-145)
[2025-05-14 01:14] LABS: Troponin I < 0.012 ng/mL (0.000-0.034)
--- NOTE | 2025-05-14 02:31 | ECG_ITS ---
Test Date: 2025-05-14 02:37:05 Measurements Intervals [place] Rate: 63 P: 81 NM: 165 QRS: -5 QRSD: 90 T: 64 QT: 410 QTc: 422 Interpretive Statements SINUS RHYTHM WITH OCCASIONAL SUPRAVENTRICULAR PREMATURE COMPLEXES INCOMPLETE RIGHT BUNDLE BRANCH BLOCK BORDERLINE ECG Compared to ECG 05/14/2025 00:57:08 NO SIGNIFICANT CHANGE Electronically Signed On 05-14-2025 07:26:42 CDT by Wale Smith D.O.
[2025-05-14] MEDS: MORPHINE SULFATE (*CRX) 2 MG/ML INJ IV PUSH ×2 (02:38→05:55)
[2025-05-14] MEDS: ASPIRIN 81 MG CHEWABLE TABLET PO (09:00)
[2025-05-14] MEDS: ATORVASTATIN 40 MG TABLET PO (09:01)
[2025-05-14] MEDS: ENOXAPARIN 60 MG/0.6 ML SYRINGE 45 MG SUB-Q (09:01)
[2025-05-14] MEDS: DICYCLOMINE HCL 10 MG CAPSULE 20 MG PO ×2 (09:01→17:42)
[2025-05-14] MEDS: ENOXAPARIN 80 MG/0.8 ML SYRINGE SUB-Q (09:01)
--- NOTE | 2025-05-14 09:57 | PM.CNCAR ---
Assessment and Plan Assessment and plan (1) Chest pain: Code(s): R07.9 - Chest pain, unspecified Status: Acute Plan Atypical chest pain negative cardiac enzymes no dynamic EKG changes Nonobstructive coronary artery disease cardiac catheterization February 2025 History of abnormal stress test false-positive was nonobstructive coronary artery disease Morbid obesity Mixed dyslipidemia Hypertension Diabetes mellitus type 2 Plan Add Imdur 30 mg daily Aspirin 81 mg daily Lipitor 80 mg daily Carvedilol 12.5 mg p.o. b.i.d. Amlodipine 5 mg daily Observe the patient for today can be discharged tomorrow morning if the patient feels better History of Present Illness History of Present Illness Consult date/time: 05/14/25 09:57 Reason For Visit: Chest pain Narrative: 54-year-old female patient presents to the hospital with acute chest pain. Chest pain was diffuse radiating to the back dull aching and constant pain lasted for several days. There was no precipitating or relieving factors. Chest pain was treated with shortness of breath and palpitations. Patient has history of cardiac catheterization 2021 and February 2025. She had nonobstructive coronary artery disease [facility] Past Medical History Medical History (Updated 05/13/25 @ 22:09 by Natividad Hull, KATINA) Jean Claude cell tumor Diabetes mellitus Hypertension Arthritis Asthma Surgical History Surgical History H/O cardiac catheterization Social History Social History Smoking status: Never smoker Smokeless tobacco user: snus Alcohol intake: never Lack of Transportation: No Lack of Food: Never True Current Housing: I Have Housing Concerned About Future Housing: No Difficulty Paying Gas/Electric Bills: No Difficulty Paying for Meds: No Currently Unemployed: No Education: Don't Know Difficulty w/ Childcare or Family Care: No Spiritual care concerns: No Meds Home Medications and Allergies Home Medications ?Medication ?Instructions ?Recorded ?Confirmed ?Type hydrocodone 5 mg-acetaminophen 325 1 tablet PO Q6H PRN pain #10 tabs 02/21/25 05/13/25 Rx mg tablet amlodipine 5 mg tablet 5 mg PO DAILY@0800 05/13/25 05/13/25 History atorvastatin 80 mg tablet 80 mg PO DAILY@00 05/13/25 05/13/25 History blood-glucose sensor (Dexcom G7 05/13/25 05/13/25 History Sensor device) carvedilol 12.5 mg tablet 12.5 mg PO BID 05/13/25 05/13/25 History dicyclomine 20 mg tablet 20 mg PO BID 05/13/25 05/13/25 History erenumab-aooe 70 mg/mL 70 mg subcut MONTHLY 05/13/25 05/13/25 History subcutaneous auto-injector (Aimovig Autoinjector) hydroxyzine HCl 25 mg tablet 25 mg PO HS 05/13/25 05/13/25 History insulin lispro 100 unit/mL 1 sliding scale dose continuous 05/13/25 05/13/25 History subcutaneous solution (Humalog subcutaneous infusion PRN PRN U-100 Insulin) hyperglycemia insulin pump cart,auto,BT,G6/7 05/13/25 05/13/25 History (Omnipod 5 G6-G7 Pods (Gen 5) subcutaneous cartridge) methocarbamol 500 mg tablet 500 mg PO HS 05/13/25 05/13/25 History pantoprazole 40 mg tablet,delayed 40 mg PO HS 05/13/25 05/13/25 History release ropinirole 0.25 mg tablet 0.75 mg PO HS PRN restless leg(s) 05/13/25 05/13/25 History venlafaxine 150 mg 150 mg PO QPM 05/13/25 05/13/25 History capsule,extended release 24 hr Allergies Allergy/AdvReac Type Severity Reaction Status Date / Time prochlorperazine Allergy Intermediate Agitated Verified 02/21/25 09:29 clarithromycin Allergy Mild VIOLENTLY Verified 02/21/25 09:29 ILL WITH VOMITING sumatriptan Allergy Mild POUNDING Verified 02/21/25 09:29 HR, DIFFICULTY BREATHING diphenhydramine AdvReac Unknown GOES Verified 02/21/25 09:29 CRAZY METOCLOPRAMIDE HCL AdvReac Intermediate Jittery Uncoded 02/21/25 09:29 Vital Signs Vital Signs - 24 hr 05/13/25 19:25 05/13/25 19:25 05/13/25 19:25 Temperature 36.8 C Pulse Rate 84 73 Respiratory Rate 21 H Blood Pressure 182/67 H Pulse Oximetry 97 98 Oxygen Delivery Room Air Room Air 05/13/25 19:26 05/13/25 19:27 05/13/25 19:30 Temperature Pulse Rate 78 74 75 Respiratory Rate 25 H 17 15 Blood Pressure 182/67 H Pulse Oximetry 98 97 Oxygen Delivery 05/13/25 19:31 05/13/25 19:45 05/13/25 19:47 Temperature Pulse Rate 75 74 73 Respiratory Rate 18 24 H 29 H Blood Pressure 169/76 H 174/59 H Pulse Oximetry 98 97 95 Oxygen Delivery 05/13/25 20:00 05/13/25 20:01 05/13/25 20:15 Temperature Pulse Rate 85 83 70 Respiratory Rate 13 9 L 13 Blood Pressure 134/66 Pulse Oximetry 95 95 98 Oxygen Delivery 05/13/25 20:16 05/13/25 20:30 05/13/25 20:31 Temperature Pulse Rate 69 90 66 Respiratory Rate 24 H 21 H 23 H Blood Pressure 134/108 H 133/73 Pulse Oximetry 99 96 97 Oxygen Delivery 05/13/25 20:45 05/13/25 20:46 05/13/25 21:00 Temperature Pulse Rate 67 67 67 Respiratory Rate 19 24 H 18 Blood Pressure 141/86 H Pulse Oximetry 97 97 98 Oxygen Delivery 05/13/25 21:01 05/13/25 21:15 05/13/25 21:18 Temperature Pulse Rate 66 70 66 Respiratory Rate 16 20 24 H Blood Pressure 144/71 H 110/59 L Pulse Oximetry 97 95 96 Oxygen Delivery 05/13/25 22:33 05/13/25 23:01 05/13/25 23:39 Temperature 36.8 C 36.8 C Pulse Rate 65 71 71 Respiratory Rate 14 18 18 Blood Pressure 161/79 H 161/79 H Pulse Oximetry 98 98 98 Oxygen Delivery 05/14/25 00:00 05/14/25 02:00 05/14/25 04:00 Temperature 37.1 C Pulse Rate 70 69 74 Respiratory Rate 19 Blood Pressure 143/50 H Pulse Oximetry 97 Oxygen Delivery 05/14/25 04:00 05/14/25 08:00 05/14/25 08:07 Temperature 36.8 C Pulse Rate 82 80 Respiratory Rate 18 Blood Pressure 158/60 H Pulse Oximetry 98 94 Oxygen Delivery Exam Const: General: comfortable and no acute distress Other: Able to lie flat HENMT: Face/Nose/Sinus: Normal nares present and no epistaxis Mouth: Yes moist mucous membranes Eyes: Sclera: sclerae normal Pupils: Equal, round and reactive pupils present Neck: Neck: supple and no JVD Carotids: no bruits Resp: Auscultation: clear to auscultation bilaterally and lung sounds not diminished Other: No chest wall tenderness Cardio: Rate: regular rate Rhythm: regular rhythm Heart sounds: no gallops, no murmurs and no rubs GI: GI Palp: Yes Soft to palpation and No Tenderness to palpation present (GI) Auscultation: normal bowel sounds Skin: General skin exam: normal color, rashes and/or lesions noted and no erythema Other: Warm Neuro: Cranial nerves: Yes Equal, round and reactive pupils present Speech: normal speech Other: No obvious focal deficit or facial asymmetry Extrem: General: no edema Other: Normal capillary refills Intact distal pulses. Results Labs and Meds 05/14/25 00:38 05/14/25 00:38 Lab results: Cardiac Enzymes 05/13/25 05/13/25 05/14/25 Range/Units 19:52 22:26 00:38 AST 48 H (14-36) U/L Troponin I < 0.012 < 0.012 < 0.012 (0.000-0.034) ng/mL Coagulation 05/13/25 Range/Units 19:52 PT 13.1 (11.1-14.7) Seconds APTT 26.2 (22.3-36.8) Seconds CBC 05/13/25 05/14/25 Range/Units 19:52 00:38 WBC 6.1 6.9 (4.5-10.0) K/mm3 RBC 3.87 L 3.96 L (4.2-5.4) M/mm3 Hgb 10.5 L 10.8 L (12.0-15.0) g/dL Hct 32.8 L 34.1 L (37.0-47.0) % Plt Count 177 219 (150-375) k/mm3 Lymph # (Auto) 1.69 2.15 (0.9-3.2) K/mm3 [place] # (Auto) 0.7 H 0.6 (0.1-0.6) K/mm3 Eos # (Auto) 0.3 0.3 (0-0.3) K/mm3 Baso # (Auto) 0.1 0.1 (0.0-0.1) K/mm3 Comprehensive Metabolic Panel 05/13/25 05/14/25 05/14/25 Range/Units 19:52 00:38 00:38 Sodium 138 140 Cancelled (137-145) mmol/L Potassium 3.8 4.0 (3.4-5.0) mmol/L Chloride 108 H (98-107) mmol/L Carbon Dioxide 23 (22-30) mmol/L BUN 16 (7-17) mg/dL Creatinine 0.90 (0.7-1.0) mg/dL Glucose 160 H (65-110) mg/dL Calcium 9.0 (8.4-10.2) mg/dL AST 48 H (14-36) U/L ALT 33 (6-35) U/L Alkaline Phosphatase 144 H (38-126) U/L Total Protein 7.2 (6.3-8.2) g/dL Albumin 3.8 (3.5-5.1) g/dL 05/14/25 05/14/25 05/14/25 Range/Units 00:38 00:38 00:38 Sodium (137-145) mmol/L Potassium Cancelled (3.4-5.0) mmol/L Chloride 108 H Cancelled (98-107) mmol/L Carbon Dioxide 26 Cancelled (22-30) mmol/L BUN 16 (7-17) mg/dL Creatinine (0.7-1.0) mg/dL Glucose (65-110) mg/dL Calcium (8.4-10.2) mg/dL AST (14-36) U/L ALT (6-35) U/L Alkaline Phosphatase (38-126) U/L Total Protein (6.3-8.2) g/dL Albumin (3.5-5.1) g/dL 05/14/25 05/14/25 05/14/25 Range/Units 00:38 00:38 00:38 Sodium (137-145) mmol/L Potassium (3.4-5.0) mmol/L Chloride (98-107) mmol/L Carbon Dioxide (22-30) mmol/L BUN Cancelled (7-17) mg/dL Creatinine 0.98 Cancelled (0.7-1.0) mg/dL Glucose 133 H Cancelled (65-110) mg/dL Calcium 9.4 (8.4-10.2) mg/dL AST (14-36) U/L ALT (6-35) U/L Alkaline Phosphatase (38-126) U/L Total Protein (6.3-8.2) g/dL Albumin (3.5-5.1) g/dL 05/14/25 Range/Units 00:38 Sodium (137-145) mmol/L Potassium (3.4-5.0) mmol/L Chloride (98-107) mmol/L Carbon Dioxide (22-30) mmol/L BUN (7-17) mg/dL Creatinine (0.7-1.0) mg/dL Glucose (65-110) mg/dL Calcium Cancelled (8.4-10.2) mg/dL AST (14-36) U/L ALT (6-35) U/L Alkaline Phosphatase (38-126) U/L Total Protein (6.3-8.2) g/dL Albumin (3.5-5.1) g/dL Intake and Output 05/13/25 05/14/25 05/14/25 23:59 07:59 15:59 Intake Total 200 Output Total 4 Balance 196 Intake: Oral 200 Output: Urine 4 Patient Weight 05/14/25 23:59 Weight 126.5 kg
[2025-05-14] MEDS: ISOSORBIDE MONONITRATE 30 MG TAB.ER.24H PO (12:14)
--- NOTE | 2025-05-14 15:37 | P.PNIM_ITS ---
Progress Note: A&P Assessment and Plan (1) Chest pain: Code(s): R07.9 - Chest pain, unspecified Status: Acute Assessment and Plan: Patient presents with chest pain with atypical features. EKG showing sinus, inc omplete Rt BBB, low voltage and borderline ST-T wave changes. Repeat EKGs showing similar findings. CXR was clear. Labs were within normal limits. Mild anemia but stable when compared to prior values. DDimer was normal. Troponin <0.012 x 3. Lipase normal. UA noted but felt more likely a contaminated specimen. UCx was not collected. She was given aspirin, NTG and morphine in ED. She was admitted to IMU. Cardiology consulted. Therapeutic dose of Lovenox. Could be pain related to small coronary artery stenosis We continued Coreg, Lipitor and Norvasc. ASA and Imdur added. Stop Lovenox (2) Diabetes mellitus: Code(s): E11.9 - Type 2 diabetes mellitus without complications Status: Acute Assessment and Plan: Patient has Dexcom and insulin pump in place Diet started so will add diabetic diet She is managing her glucose. Hypoglycemia protocol in place (3) Hypertension: Code(s): I10 - Essential (primary) hypertension Status: Acute Assessment and Plan: Patient's blood pressure was reviewed on 05/14 Blood pressure elevated but better controlled as her medications are resumed. 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 She is still having chest pain with severity requiring morphine this morning. Chest pain is central and radiates to the back and under the right breast. Abnormal stress test in February which prompted LHC. LHC showing minimal CAD except for a 80% stenosis of a small tributary that was too small to intervene. Exam Narrative: AF 98.7 135/88 66 16 96% ra Gen - NARD Chest - CTA bilaterally, nml RR CV - RRR S1/S2. Tele showing brief run of tachycardia, possible SVT Abd - Soft, NT/ND, Positive BS Ext - No pedal edema. Negative Homans Neuro - Alert and oriented. Nonfocal exam. Psych - Nml mood and affect Skin - Warm and dry Objective Data Vital Signs Vital Signs: Vital Signs - 24 hr 05/13/25 19:25 05/13/25 19:25 05/13/25 19:25 Temperature 98.2 F Pulse Rate 84 73 Respiratory Rate 21 H Blood Pressure 182/67 H Pulse Oximetry 97 98 Oxygen Delivery Room Air Room Air 05/13/25 19:26 05/13/25 19:27 05/13/25 19:30 Temperature Pulse Rate 78 74 75 Respiratory Rate 25 H 17 15 Blood Pressure 182/67 H Pulse Oximetry 98 97 Oxygen Delivery 05/13/25 19:31 05/13/25 19:45 05/13/25 19:47 Temperature Pulse Rate 75 74 73 Respiratory Rate 18 24 H 29 H Blood Pressure 169/76 H 174/59 H Pulse Oximetry 98 97 95 Oxygen Delivery 05/13/25 20:00 05/13/25 20:01 05/13/25 20:15 Temperature Pulse Rate 85 83 70 Respiratory Rate 13 9 L 13 Blood Pressure 134/66 Pulse Oximetry 95 95 98 Oxygen Delivery 05/13/25 20:16 05/13/25 20:30 05/13/25 20:31 Temperature Pulse Rate 69 90 66 Respiratory Rate 24 H 21 H 23 H Blood Pressure 134/108 H 133/73 Pulse Oximetry 99 96 97 Oxygen Delivery 05/13/25 20:45 05/13/25 20:46 05/13/25 21:00 Temperature Pulse Rate 67 67 67 Respiratory Rate 19 24 H 18 Blood Pressure 141/86 H Pulse Oximetry 97 97 98 Oxygen Delivery 05/13/25 21:01 05/13/25 21:15 05/13/25 21:18 Temperature Pulse Rate 66 70 66 Respiratory Rate 16 20 24 H Blood Pressure 144/71 H 110/59 L Pulse Oximetry 97 95 96 Oxygen Delivery 05/13/25 22:33 05/13/25 23:01 05/13/25 23:39 Temperature 98.2 F 98.2 F Pulse Rate 65 71 71 Respiratory Rate 14 18 18 Blood Pressure 161/79 H 161/79 H Pulse Oximetry 98 98 98 Oxygen Delivery 05/14/25 00:00 05/14/25 02:00 05/14/25 04:00 Temperature 98.7 F Pulse Rate 70 69 74 Respiratory Rate 19 Blood Pressure 143/50 H Pulse Oximetry 97 Oxygen Delivery 05/14/25 04:00 05/14/25 08:00 05/14/25 08:00 Temperature 98.2 F Pulse Rate 82 80 80 Respiratory Rate 18 Blood Pressure 158/60 H Pulse Oximetry 98 Oxygen Delivery Room Air 05/14/25 08:00 05/14/25 08:07 05/14/25 10:00 Temperature Pulse Rate 82 80 Respiratory Rate Blood Pressure Pulse Oximetry 94 Oxygen Delivery 05/14/25 12:00 05/14/25 12:00 05/14/25 12:00 Temperature 98.7 F Pulse Rate 80 67 66 Respiratory Rate 16 Blood Pressure 135/88 Pulse Oximetry 96 Oxygen Delivery Room Air Intake/Output Intake/Output: Intake & Output 05/11/25 05/12/25 05/13/25 05/14/25 23:59 23:59 23:59 23:59 Intake Total 680 Output Total 4 Balance 676 Meds/Results Medications: Active Medications Generic Name Dose Route Start Last Admin Trade Name Freq PRN Reason Stop Dose Admin Hydrocodone Bitart/Acetaminophen 1 tab 05/14/25 07:28 Hydrocodone/Acetaminophen (*Crx) 5-325 Mg Tablet PO Q6H PRN pain 4-6 Amlodipine Besylate 5 mg 05/14/25 08:00 05/14/25 09:01 Amlodipine Besylate 5 Mg Tablet PO 5 mg DAILY@0800 OMARI Administration Aspirin 81 mg 05/14/25 08:00 05/14/25 09:00 Aspirin 81 Mg Chewable Tablet PO 81 mg DAILY@0800 OMARI Administration Atorvastatin Calcium 40 mg 05/14/25 08:35 05/14/25 09:01 Atorvastatin 40 Mg Tablet PO 40 mg DAILY@0800 OMARI Administration Carvedilol 12.5 mg 05/14/25 09:00 05/14/25 09:00 Carvedilol 12.5 Mg Tablet PO 12.5 mg Q12HR OMARI Administration Dextrose 12.5 gm 05/13/25 22:08 Dextrose 50% 25 Gm/50 Ml Syringe IV PUSH PRN PRN Hypoglycemia Protocol Dicyclomine HCl 20 mg 05/14/25 09:00 05/14/25 09:01 Dicyclomine Hcl 10 Mg Capsule PO 20 mg BID OMARI Administration Enoxaparin Sodium 80 mg 05/13/25 22:15 05/14/25 09:01 Enoxaparin 80 Mg/0.8 Ml Syringe SUB-Q 80 mg Q12HR OMARI Administration Enoxaparin Sodium 45 mg 05/13/25 22:15 05/14/25 09:01 Enoxaparin 60 Mg/0.6 Ml Syringe SUB-Q 45 mg Q12HR OMARI Administration Glucagon 1 mg 05/13/25 22:08 Glucagon For Inj 1 Mg Vial IM PRN PRN Hypoglycemia Protocol Glucose 15 gm 05/13/25 22:08 Glucose Oral Gel 15 Gm Of Glucse In 37.5 Gm Tube PO PRN PRN Hypoglycemia Protocol Hydroxyzine HCl 25 mg 05/14/25 21:00 Hydroxyzine Hcl 25 Mg Tablet PO [facility] Dextrose 1,000 mls @ 100 mls/hr 05/13/25 22:08 Dextrose 5% 1,000 Ml IVPB PRN PRN Hypoglycemia Protocol Insulin Aspart 2 - 5 units 05/14/25 08:00 05/14/25 12:29 Insulin Aspart (*Bkc) 100 Units/Ml SUB-Q Not Given TIDWM [facility] Protocol Insulin Aspart 1 - 2 units 05/14/25 21:00 Insulin Aspart (*Bkc) 100 Units/Ml SUB-Q [facility] Protocol Isosorbide Mononitrate 30 mg 05/14/25 10:25 05/14/25 12:14 Isosorbide Mononitrate 30 Mg Tab.Er.24h PO 30 mg QAM [facility] Administration Methocarbamol 500 mg 05/14/25 21:00 Methocarbamol 500 Mg Tablet PO [facility] Miscellaneous Information 0 each 05/14/25 00:01 Recommend Dc Of Ntg Paste Since Patient Will Be On Isosorbide Mononitrate. XX 06/13/25 00:00 CLARIFY [facility] Morphine Sulfate 2 mg 05/13/25 21:33 05/14/25 05:55 Morphine Sulfate (*Crx) 2 Mg/Ml Inj IV PUSH 2 mg Q2H PRN Administration Pain Rated 7-10 Nitroglycerin 0.4 mg 05/13/25 21:33 Nitroglycerin Sl 0.4 Mg Tablet SUBLINGUAL Q5MIN PRN Chest Pain Ondansetron HCl 4 mg 05/13/25 21:33 Ondansetron Inj 4 Mg/2 Ml Vial IV PUSH Q4H PRN Nausea Pantoprazole Sodium 40 mg 05/14/25 21:00 Pantoprazole 40 Mg Tablet PO [facility] Perflutren Lipid Microsphere 0 ml 05/13/25 22:24 Perflutren Lipid Microspheres 1.5 Ml Vial Diluted To 10 Ml Total Volume IV PUSH 05/16/25 22:24 ONCE PRN adequate visualization Protocol Ropinirole HCl 0.75 mg 05/14/25 07:28 Ropinirole Hcl 0.25 Mg Tablet PO HS PRN restless leg(s) Venlafaxine HCl 150 mg 05/14/25 18:00 Venlafaxine Hcl Xr 75 Mg Cap.Er.24h PO QPM [facility] Radiology Results: ITS Impressions Chest X-Ray 05/14/25 10:27 IMPRESSION: 1: NO ACUTE CARDIOPULMONARY DISEASE. Labs Labs: Laboratory Results - last 24 hr 05/13/25 05/13/25 05/13/25 19:52 19:52 22:26 WBC 6.1 RBC 3.87 L Hgb 10.5 L Hct 32.8 L MCV 84.8 MCH 27.1 MCHC 32.0 RDW 14.0 Plt Count 177 MPV 9.4 Immature Gran % (Auto) 0.3 Neut % (Auto) 55.4 Lymph % (Auto) 27.9 [place] % (Auto) 11.1 H Eos % (Auto) 4.3 Baso % (Auto) 1.0 Lymph # (Auto) 1.69 [place] # (Auto) 0.7 H Eos # (Auto) 0.3 Baso # (Auto) 0.1 Abs Immat Gran (auto) 0.02 Absolute Neuts (auto) 3.4 Absolute Nucleated RBC 0.000 Nucleated RBC % 0.0 PT 13.1 INR 1.0 APTT 26.2 D-Dimer 0.28 Cancelled Sodium 138 Potassium 3.8 Chloride 108 H Carbon Dioxide 23 Anion Gap 7 BUN 16 Creatinine 0.90 Estim Creat Clear Calc 86 Estimated GFR > 60 Glucose 160 H POC Capillary Glucose Calcium 9.0 Total Bilirubin 0.7 AST 48 H ALT 33 Alkaline Phosphatase 144 H Troponin I < 0.012 < 0.012 NT-Pro-B Natriuret Pep 211 H Total Protein 7.2 Albumin 3.8 Lipase 78 05/14/25 05/14/25 05/14/25 00:38 00:38 00:38 WBC 6.9 RBC 3.96 L Hgb 10.8 L Hct 34.1 L MCV 86.1 MCH 27.3 MCHC 31.7 L RDW 13.8 Plt Count 219 MPV 9.6 Immature Gran % (Auto) 0.3 Neut % (Auto) 54.1 Lymph % (Auto) 31.0 [place] % (Auto) 9.2 H Eos % (Auto) 4.5 H Baso % (Auto) 0.9 Lymph # (Auto) 2.15 [place] # (Auto) 0.6 Eos # (Auto) 0.3 Baso # (Auto) 0.1 Abs Immat Gran (auto) 0.02 Absolute Neuts (auto) 3.8 Absolute Nucleated RBC 0.000 Nucleated RBC % 0.0 PT INR APTT D-Dimer Sodium 140 Cancelled Potassium 4.0 Cancelled Chloride 108 H Carbon Dioxide Anion Gap BUN Creatinine Estim Creat Clear Calc Estimated GFR Glucose POC Capillary Glucose Calcium Total Bilirubin AST ALT Alkaline Phosphatase Troponin I NT-Pro-B Natriuret Pep Total Protein Albumin Lipase 05/14/25 05/14/25 05/14/25 00:38 00:38 00:38 WBC RBC Hgb Hct MCV MCH MCHC RDW Plt Count MPV Immature Gran % (Auto) Neut % (Auto) Lymph % (Auto) [place] % (Auto) Eos % (Auto) Baso % (Auto) Lymph # (Auto) [place] # (Auto) Eos # (Auto) Baso # (Auto) Abs Immat Gran (auto) Absolute Neuts (auto) Absolute Nucleated RBC Nucleated RBC % PT INR APTT D-Dimer Sodium Potassium Chloride Cancelled Carbon Dioxide 26 Cancelled Anion Gap 6 Cancelled BUN 16 Creatinine Estim Creat Clear Calc Estimated GFR Glucose POC Capillary Glucose Calcium Total Bilirubin AST ALT Alkaline Phosphatase Troponin I NT-Pro-B Natriuret Pep Total Protein Albumin Lipase 05/14/25 05/14/25 05/14/25 00:38 00:38 00:38 WBC RBC Hgb Hct MCV MCH MCHC RDW Plt Count MPV Immature Gran % (Auto) Neut % (Auto) Lymph % (Auto) [place] % (Auto) Eos % (Auto) Baso % (Auto) Lymph # (Auto) [place] # (Auto) Eos # (Auto) Baso # (Auto) Abs Immat Gran (auto) Absolute Neuts (auto) Absolute Nucleated RBC Nucleated RBC % PT INR APTT D-Dimer Sodium Potassium Chloride Carbon Dioxide Anion Gap BUN Cancelled Creatinine 0.98 Cancelled Estim Creat Clear Calc 80 Cancelled Estimated GFR 59 Glucose POC Capillary Glucose Calcium Total Bilirubin AST ALT Alkaline Phosphatase Troponin I NT-Pro-B Natriuret Pep Total Protein Albumin Lipase 05/14/25 05/14/25 05/14/25 00:38 00:38 00:38 WBC RBC Hgb Hct MCV MCH MCHC RDW Plt Count MPV Immature Gran % (Auto) Neut % (Auto) Lymph % (Auto) [place] % (Auto) Eos % (Auto) Baso % (Auto) Lymph # (Auto) [place] # (Auto) Eos # (Auto) Baso # (Auto) Abs Immat Gran (auto) Absolute Neuts (auto) Absolute Nucleated RBC Nucleated RBC % PT INR APTT D-Dimer Sodium Potassium Chloride Carbon Dioxide Anion Gap BUN Creatinine Estim Creat Clear Calc Estimated GFR Cancelled Glucose 133 H Cancelled POC Capillary Glucose Calcium 9.4 Cancelled Total Bilirubin AST ALT Alkaline Phosphatase Troponin I < 0.012 NT-Pro-B Natriuret Pep Total Protein Albumin Lipase 05/14/25 08:08 WBC RBC Hgb Hct MCV MCH MCHC RDW Plt Count MPV Immature Gran % (Auto) Neut % (Auto) Lymph % (Auto) [place] % (Auto) Eos % (Auto) Baso % (Auto) Lymph # (Auto) [place] # (Auto) Eos # (Auto) Baso # (Auto) Abs Immat Gran (auto) Absolute Neuts (auto) Absolute Nucleated RBC Nucleated RBC % PT INR APTT D-Dimer Sodium Potassium Chloride Carbon Dioxide Anion Gap BUN Creatinine Estim Creat Clear Calc Estimated GFR Glucose POC Capillary Glucose 108 H Calcium Total Bilirubin AST ALT Alkaline Phosphatase Troponin I NT-Pro-B Natriuret Pep Total Protein Albumin Lipase
[2025-05-14] MEDS: VENLAFAXINE HCL XR 75 MG CAP.ER.24H 150 MG PO (17:42)
[2025-05-14] MEDS: HYDROcodone/acetaminophen (*CRX) 5-325 MG TABLET 1 TAB PO (20:52)
[2025-05-14] MEDS: PANTOPRAZOLE 40 MG TABLET PO (20:53)
[2025-05-14] MEDS: MORPHINE SULFATE (*CRX) 2 MG/ML INJ 1 MG IV PUSH (22:08)
[2025-05-15] VITALS (10 sets, daily range): BP systolic 131–146; BP diastolic 56–66; PULSE 61–78; RESP 18; TEMP 36.6–36.9; O2SAT 94–97
--- NOTE | 2025-05-15 | ECHO_ITS ---
Patient Info Name: Leti White Age: 54 years : 1970 Gender: Female Ht: 67 in Wt: 274 lbs BSA: 2.49 m2 HR: 61 bpm BP: 143 / 56 mmHg Heart Rhythm: Sinus Rhythm Technical Quality: Fair Exam Date: 05/15/2025 9:31 AM Patient Status: I Admit Date: 05/13/2025 Exam Type: CA echo doppler color flow Complete two-dimensional, color flow and Doppler transthoracic echocardiogram is performed. Staff Referring Physician: Kal Eden MD Access Tech: Josefina Chua Attending Provider: Connie Corley DO Summary 1. Complete two-dimensional, color flow and Doppler transthoracic echocardiogram is performed. 2. Left ventricular chamber dimension is normal. 3. Left ventricular systolic function is normal, estimated at 65-70. 4. Right ventricular chamber dimension is normal. 5. Right ventricular systolic function is normal. 6. There is mild mitral valve regurgitation. Left Ventricle Left ventricular chamber dimension is normal. Left ventricular systolic function is normal, estimated at 65-70. There is no increased left ventricular wall thickness. The left ventricular diastolic function is grade I diastolic dysfunction. Right Ventricle Right ventricular chamber dimension is normal. Right ventricular systolic function is normal. Left Atria Left atrial chamber dimension is mildly enlarged. Right Atria Right atrial chamber dimension is normal. Aortic Valve There is no aortic valve sclerosis. There is no aortic valve stenosis. There is no aortic valve regurgitation. Pulmonic Valve The pulmonic valve is not well visualized. Mitral Valve The mitral valve has normal leaflets. There is no mitral valve stenosis. There is mild mitral valve regurgitation. Tricuspid Valve The tricuspid valve leaflets are normal. There is no significant tricuspid valve stenosis. There is no tricuspid valve regurgitation. Pericardium/Pleural The pericardium appears normal. There is no pericardial effusion. Inferior Vena Cava Normal inferior vena cava with >50% collapse upon inspiration consistent with normal right atrial pressure, 10 mmHg. Aorta The aortic root size at the sinus of Valsalva is normal. The prox ascending aorta size is normal. Left Ventricular Outflow Tract Name Value Normal LVOT 2D LVOT Diameter 2.0 cm LVOT Doppler LVOT Peak Velocity 120 cm/s LVOT Peak Gradient 6 mmHg LVOT Mean Gradient 3 mmHg LVOT VTI 26 cm LVOT VTI/AV VTI Ratio 0.7 LVOT Stroke Volume 84 ml LVOT CO 5.5 l/min LVOT CI 2.2 l/min/m2 Pulmonic Valve Name Value Normal RVOT Doppler RVOT Peak Velocity 82 cm/s RVOT Peak Gradient 3 mmHg PV Doppler PV Peak Velocity 129 cm/s PV Peak Gradient 7 mmHg Mitral Valve Name Value Normal MV Diastolic Function MV E Peak Velocity 81 cm/s MV A Peak Velocity 66 cm/s MV E/A 1.2 MV Decel Time (PW) 257 ms MV Annular TDI MV E/e' (Septal) 14.3 MV E/e' (Lateral) 10.3 MV E/e' (Average) 12.3 Tricuspid Valve Name Value Normal TV Regurgitation Doppler TR Peak Velocity 216 cm/s TR Peak Gradient 19 mmHg Estimated PAP/RSVP RA Pressure 10 mmHg <=5 PA Systolic Pressure 29 mmHg <36 RV Systolic Pressure 29 mmHg <36 TV Annular TDI TV Lateral Lenore s' Velocity 13.9 cm/s >=9.5 Aortic Valve Name Value Normal AV Doppler AV Peak Velocity 174 cm/s AV Peak Gradient 12 mmHg AV Mean Gradient 6 mmHg AV VTI 37 cm AV Area (Cont Eq VTI) 2.3 cm2 >=3.0 AV Area (Cont Eq Duane) 2.3 cm2 AV DI (Duane) 0.69 AV Regurgitation 2D LVOT Area 3.3 cm2 Ventricles Name Value Normal LV Dimensions 2D/MM IVS Diastolic Thickness (2D) 0.9 cm 0.6-1.0 LVID Diastole (2D) 4.8 cm 3.8-5.2 LVIW Diastolic Thickness (2D) 0.9 cm 0.6-0.9 LVID Systole (2D) 3.3 cm 2.2-3.5 LVOT Diameter 2.0 cm LV Mass (2D Cubed) 152.20 g 67.00-162.00 LV Mass Index (2D Cubed) 61 g/m2 43-95 Relative Wall Thickness (2D) 0.39 <=0.42 LV Fractional Shortening/Ejection Fraction 2D/MM LV Fractional Shortening (2D) 32 % 27-45 LV EF (2D Teichholz) 60 % LV Diastolic Volume (4C MOD) 81 ml LV EF (4C MOD) 60 % LV Diastolic Volume (2C MOD) 63 ml LV EF (2C MOD) 69 % LV Diastolic Volume (BP MOD) 72 ml 46-106 LV Diastolic Volume Index (BP MOD) 29 ml/m2 29-61 LV Systolic Volume (BP MOD) 25 ml 14-42 LV Systolic Volume Index (BP MOD) 10 ml/m2 8-24 LV EF (BP MOD) 66 % 54-74 LV Diastolic Length (4C) 7.7 cm LV Systolic Length (4C) 6.0 cm LV Stroke Volume (4C MOD) 49 ml Atria Name Value Normal LA Dimensions LA Volume (4C A-L) 86 ml LA Volume (BP A-L) 80 ml RA Dimensions RA Area (4C) 15.7 cm2 <=18.0 Report Signatures
[2025-05-15 04:01] LABS: Cholesterol 199 mg/dL (0-200); HDL Direct 27 mg/dL; Triglycerides 228 mg/dL (<150)
[2025-05-15] MEDS: ATORVASTATIN 40 MG TABLET PO (08:01)
[2025-05-15] MEDS: ISOSORBIDE MONONITRATE 30 MG TAB.ER.24H PO (08:01)
[2025-05-15] MEDS: DICYCLOMINE HCL 10 MG CAPSULE 20 MG PO (08:02)
[2025-05-15] MEDS: ASPIRIN 81 MG CHEWABLE TABLET PO (08:02)
--- NOTE | 2025-05-15 09:53 | PM.PNCARD ---
Progress Note: A&P Assessment and Plan (1) Chest pain: Code(s): R07.9 - Chest pain, unspecified Status: Acute Plan Atypical chest pain negative cardiac enzymes no dynamic EKG changes Nonobstructive coronary artery disease cardiac catheterization February 2025 History of abnormal stress test false-positive was nonobstructive coronary artery disease Morbid obesity Mixed dyslipidemia Hypertension Diabetes mellitus type 2 Plan Increase Imdur to 60 mg daily Aspirin 81 mg daily Lipitor 80 mg daily Carvedilol 12.5 mg p.o. b.i.d. Amlodipine 5 mg daily Observe the patient for today can be discharged tomorrow morning if the patient feels better Subjective Date/time seen: 05/15/25 09:53 Interval history: Patient is seen today for chest pain. No acute events overnight Recurrent episodes of chest pain Telemetry sinus rhythm Review of Systems Review of Systems: All systems reviewed & are unremarkable except as noted in HPI and below Exam Const: General: comfortable and no acute distress Other: Able to lie flat HENMT: Face/Nose/Sinus: Normal nares present and no epistaxis Mouth: Yes moist mucous membranes Eyes: Sclera: sclerae normal Pupils: Equal, round and reactive pupils present Neck: Neck: supple and no JVD Carotids: no bruits Resp: Auscultation: clear to auscultation bilaterally and lung sounds not diminished Other: No chest wall tenderness Cardio: Rate: regular rate Rhythm: regular rhythm Heart sounds: no gallops, no murmurs and no rubs GI: GI Palp: Yes Soft to palpation and No Tenderness to palpation present (GI) Auscultation: normal bowel sounds Skin: General skin exam: normal color, rashes and/or lesions noted and no erythema Other: Warm Neuro: Cranial nerves: Yes Equal, round and reactive pupils present Speech: normal speech Other: No obvious focal deficit or facial asymmetry Extrem: General: no edema Other: Normal capillary refills Intact distal pulses. Objective Data Vital Signs Vital Signs: Vital Signs - 24 hr 05/14/25 10:00 05/14/25 12:00 05/14/25 12:00 Temperature 37.1 C Pulse Rate 80 80 67 Respiratory Rate 16 Blood Pressure 135/88 Pulse Oximetry 96 Oxygen Delivery Room Air 05/14/25 12:00 05/14/25 14:00 05/14/25 16:00 Temperature 36.6 C Pulse Rate 66 69 66 Respiratory Rate 16 Blood Pressure 127/48 L Pulse Oximetry 92 Oxygen Delivery 05/14/25 16:00 05/14/25 16:00 05/14/25 18:00 Temperature Pulse Rate 69 80 74 Respiratory Rate Blood Pressure Pulse Oximetry Oxygen Delivery Room Air 05/14/25 20:00 05/14/25 20:00 05/14/25 20:00 Temperature 36.3 C L Pulse Rate 69 74 Respiratory Rate 19 Blood Pressure 144/62 H Pulse Oximetry 95 Oxygen Delivery Room Air 05/14/25 20:52 05/14/25 21:53 05/14/25 22:06 Temperature Pulse Rate 66 70 71 Respiratory Rate Blood Pressure 126/58 L Pulse Oximetry 96 Oxygen Delivery 05/14/25 23:53 05/15/25 00:00 05/15/25 00:00 Temperature 36.5 C Pulse Rate 81 78 Respiratory Rate 17 Blood Pressure 147/66 H Pulse Oximetry 93 Oxygen Delivery Room Air 05/15/25 02:00 05/15/25 03:57 05/15/25 03:59 Temperature 36.6 C Pulse Rate 70 72 Respiratory Rate 18 Blood Pressure 143/56 H Pulse Oximetry 95 Oxygen Delivery Room Air 05/15/25 04:00 05/15/25 05:58 05/15/25 08:00 Temperature 36.8 C Pulse Rate 73 61 73 Respiratory Rate 18 Blood Pressure 146/66 H Pulse Oximetry 94 Oxygen Delivery 05/15/25 08:02 Temperature Pulse Rate 74 Respiratory Rate Blood Pressure Pulse Oximetry Oxygen Delivery Intake/Output Intake/Output: Intake & Output 05/12/25 05/13/25 05/14/25 05/15/25 23:59 23:59 23:59 23:59 Intake Total 920 590 Output Total 4 1000 Balance 916 -410 Meds/Results Medications: Active Medications Generic Name Dose Route Start Last Admin Trade Name Freq PRN Reason Stop Dose Admin Hydrocodone Bitart/Acetaminophen 1 tab 05/14/25 07:28 05/14/25 20:52 Hydrocodone/Acetaminophen (*Crx) 5-325 Mg Tablet PO 1 tab Q6H PRN Administration pain 4-6 Amlodipine Besylate 5 mg 05/14/25 08:00 05/15/25 08:02 Amlodipine Besylate 5 Mg Tablet PO 5 mg DAILY@0800 OMARI Administration Aspirin 81 mg 05/14/25 08:00 05/15/25 08:02 Aspirin 81 Mg Chewable Tablet PO 81 mg DAILY@0800 OMARI Administration Atorvastatin Calcium 40 mg 05/14/25 08:35 05/15/25 08:01 Atorvastatin 40 Mg Tablet PO 40 mg DAILY@0800 OMARI Administration Carvedilol 12.5 mg 05/14/25 09:00 05/15/25 08:02 Carvedilol 12.5 Mg Tablet PO 12.5 mg Q12HR OMARI Administration Dextrose 12.5 gm 05/13/25 22:08 Dextrose 50% 25 Gm/50 Ml Syringe IV PUSH PRN PRN Hypoglycemia Protocol Dicyclomine HCl 20 mg 05/14/25 09:00 05/15/25 08:02 Dicyclomine Hcl 10 Mg Capsule PO 20 mg BID OMARI Administration Glucagon 1 mg 05/13/25 22:08 Glucagon For Inj 1 Mg Vial IM PRN PRN Hypoglycemia Protocol Glucose 15 gm 05/13/25 22:08 Glucose Oral Gel 15 Gm Of Glucse In 37.5 Gm Tube PO PRN PRN Hypoglycemia Protocol Hydroxyzine HCl 25 mg 05/14/25 21:00 05/14/25 20:53 Hydroxyzine Hcl 25 Mg Tablet PO 25 mg HS OMARI Administration Dextrose 1,000 mls @ 100 mls/hr 05/13/25 22:08 Dextrose 5% 1,000 Ml IVPB PRN PRN Hypoglycemia Protocol Insulin Aspart 2 - 5 units 05/14/25 08:00 05/15/25 08:02 Insulin Aspart (*Bkc) 100 Units/Ml SUB-Q Not Given TIDWM [facility] Protocol Insulin Aspart 1 - 2 units 05/14/25 21:00 05/14/25 20:53 Insulin Aspart (*Bkc) 100 Units/Ml SUB-Q Not Given HS [facility] Protocol Isosorbide Mononitrate 30 mg 05/14/25 10:25 05/15/25 08:01 Isosorbide Mononitrate 30 Mg Tab.Er.24h PO 30 mg QAM OMARI Administration Methocarbamol 500 mg 05/14/25 21:00 05/14/25 20:52 Methocarbamol 500 Mg Tablet PO 500 mg HS OMARI Administration Morphine Sulfate 1 mg 05/14/25 16:00 05/14/25 22:08 Morphine Sulfate (*Crx) 2 Mg/Ml Inj IV PUSH 1 mg Q2H PRN Administration Pain Rated 7-10 Nitroglycerin 0.4 mg 05/13/25 21:33 Nitroglycerin Sl 0.4 Mg Tablet SUBLINGUAL Q5MIN PRN Chest Pain Ondansetron HCl 4 mg 05/13/25 21:33 Ondansetron Inj 4 Mg/2 Ml Vial IV PUSH Q4H PRN Nausea Pantoprazole Sodium 40 mg 05/14/25 21:00 05/14/25 20:53 Pantoprazole 40 Mg Tablet PO 40 mg HS OMARI Administration Perflutren Lipid Microsphere 0 ml 05/13/25 22:24 Perflutren Lipid Microspheres 1.5 Ml Vial Diluted To 10 Ml Total Volume IV PUSH 05/16/25 22:24 ONCE PRN adequate visualization Protocol Ropinirole HCl 0.75 mg 05/14/25 07:28 Ropinirole Hcl 0.25 Mg Tablet PO HS PRN restless leg(s) Venlafaxine HCl 150 mg 05/14/25 18:00 05/14/25 17:42 Venlafaxine Hcl Xr 75 Mg Cap.Er.24h PO 150 mg QPM OMARI Administration Radiology Results: ITS Impressions Chest X-Ray 05/14/25 10:27 IMPRESSION: 1: NO ACUTE CARDIOPULMONARY DISEASE. Labs Labs: Laboratory Results - last 24 hr 05/15/25 03:27 Triglycerides 228 H Cholesterol 199 LDL Cholesterol Direct 112 HDL Direct 27
[2025-05-15] MEDS: MORPHINE SULFATE (*CRX) 2 MG/ML INJ 1 MG IV PUSH (10:38)
--- NOTE | 2025-05-15 14:26 | P.DS_ITS ---
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 Please see H&P for details. Hospital Course: Patient presented with chest pain with atypical features. EKG showing sinus, incomplete Rt BBB, low voltage and borderline ST-T wave changes. Repeat EKGs showing similar findings. CXR was clear. Labs were within normal limits. Mild anemia but stable when compared to prior values. DDimer was normal. Troponin <0.012 x 3. Lipase normal. UA noted but felt more likely a contaminated specimen. UCx was not collected. She was given aspirin, NTG and morphine in ED. She was admitted to IMU. Cardiology consulted. Therapeutic dose of Lovenox started. She had a recent LHC and noted to have minimal coronary disease. Patient states she has a small vessel with 80% stenosis which could be causing her pain. We continued Coreg, Lipitor and Norvasc. ASA and Imdur were added. Patient has Dexcom and insulin pump in place which were continued. Echo showing EF 65-70% with grade I diastolic dysfunction and mild MR. Spoke with Cardiology laer in the day of discharge who felt patient could be discharged home. Patient overall did well and was able to be discharged on 05/15/25. Discharge instructions discussed and all questions answered. Status at Discharge Cognitive/behavioral status at discharge: stable Time Spent with Patient Time attestation: Total time spent providing and/or coordinating discharge services: 35 minutes Time spent: Greater than 30 minutes Exam Narrative: AF 98.5 131/63 67 18 97% ra Gen - NARD Chest - CTA bilaterally, nml RR CV - RRR S1/S2. Tele showing 2 brief runs of tachycardia, possible NSVT Abd - Soft, NT/ND, Positive BS Ext - No pedal edema. Psych - Nml mood and affect Skin - Warm and dry DS: Data Data Completed and Pending Labs on day of discharge: Labs from last 24 hours 05/15/25 03:27 Triglycerides 228 H Cholesterol 199 LDL Cholesterol Direct 112 HDL Direct 27 Discharge Plan Discharge Attending physician on discharge: Davon Hewitt Consulting providers: Wm De La Garza Discharging Clinician: Davon Hewitt Anticipated Discharge Date/Time: 05/15/25 14:33 Patient Disposition: Home Activity: as tolerated Diet: heart healthy and diabetic Discharge Instructions: Please check glucose before meals and before bed. Record and bring into your doctor for review. Check blood pressure 1 to 2 times a day. Record and bring into your doctor for review. Call your doctor if your blood pressure is greater than 180/110. Take precautions to avoid falls. Rise slowly from a lying or sitting position. Pause before standing or walking. Check daily morning weights after voiding. Call your doctor if you gain more than 3 lb in 2 days or 5 lb in 1 week. Contact your doctor or call 911 and come to the Emergency Room if you have worsening chest pain or other worrisome symptoms. Avoid NSAIDs (ibuprofen, naproxen, Aleve). Tylenol is safe to take. Follow-up with your primary care provider in 1-2 weeks. Please call for appointment. Follow-up with your Police Radio Dispatcher in 1-2 weeks. Please call for an appointment. Thank you for using [facility] for your health care needs. Patient Instructions: Antibiotic Form, Chest Pain (GEN) Patient Language: [place] Arabian Stand Alone Forms: General Discharge Information Follow-up/Referrals: Breezy,Brissa Zamora MD [Primary Care Provider, Unknown] - Call for Appointment Discharge Medications: New isosorbide mononitrate 60 mg Tablet Extended Release 24 Hr 60 mg PO QAM Qty: 30 1RF aspirin [Children's Aspirin] 81 mg Tablet,Chewable 81 mg PO DAILY@0800 Qty: 30 0RF Continued hydrocodone-acetaminophen 5-325 mg tablet 1 tablet PO Q6H PRN (Reason: pain) Qty: 10 0RF amlodipine 5 mg tablet 5 mg PO DAILY@0800 Patient Comments: had been on hold since february atorvastatin 80 mg tablet 80 mg PO DAILY@0800 Patient Comments: has been on hold since apr 20 carvedilol 12.5 mg tablet 12.5 mg PO BID (DME) Dexcom G7 Sensor Device MISCELLANEOUS Patient Comments: changed 05/12/2025 dicyclomine 20 mg tablet 20 mg PO BID Aimovig Autoinjector 70 mg/mL auto-injector 70 mg SUBCUT MONTHLY Patient Comments: took 04/23/2025 not do till 05/24/2025 hydroxyzine HCl 25 mg tablet 25 mg PO HS insulin lispro [Humalog U-100 Insulin] 100 unit/mL solution 1 sliding scale dose continuous subcutaneous infusion PRN PRN (Reason: hyperglycemia) Rx Instructions: 1 sliding scale dose via continuous subcutaneous infusion PRN; (DME) Omnipod 5 G6-G7 Pods (Gen 5) Cartridge SUBCUT methocarbamol 500 mg tablet 500 mg PO HS pantoprazole 40 mg tablet,delayed release (DR/EC) 40 mg PO HS ropinirole 0.25 mg tablet 0.75 mg PO HS PRN (Reason: restless leg(s)) venlafaxine 150 mg capsule,extended release 24hr 150 mg PO QPM Patient Comments: Dose changed on thursday Date of admission: 05/13/25 21:33 Primary Care Provider: Breezy,Brissa Zamora Admitting Provider: Connie Corley Attending physician on admission: Connie Corley Condition: Stable Hospitalist MIPS Heart Failure (Exclusion) Patient has history of Heart Transplant or Left Ventricular Assistive Device?: No IF YES, STOP HERE Heart Failure (Qualifier) Patient has current or prior documentation of LVEF less than or equal to 40%, or mod/servere depressed LVSF?: No IF NO, STOP HERE
== END 2025-05-15 15:27 | disposition home or self-care (01) ==
LOC: ANHED 21:35 → ANHIMU 05-14 01:08
PROVIDERS: Emergency Medicine; Nurse Practitioner Gerontology; Admitting Provider Internal Medicine; Emergency Provider Emergency Medicine; PCP Family Medicine; Visit Provider Internal Medicine
DX: R07.9 Chest pain, unspecified (principal); R06.02 Shortness of breath; I10 Essential (primary) hypertension; I45.10 Unspecified right bundle-branch block; I34.0 Nonrheumatic mitral (valve) insufficiency; I25.10 Atherosclerotic heart disease of native coronary artery without angina pectoris; E78.2 Mixed hyperlipidemia; E11.9 Type 2 diabetes mellitus without complications; Z96.41 Presence of insulin pump (external) (internal); E66.01 Morbid (severe) obesity due to excess calories; Z68.41 Body mass index [BMI] 40.0-44.9, adult; J45.909 Unspecified asthma, uncomplicated; Z85.821 Personal history of Merkel cell carcinoma; M19.90 Unspecified osteoarthritis, unspecified site; Z79.4 Long term (current) use of insulin
CPT/HCPCS: 36415; 71046; 80048; 80053; 80061; 82948; 83690; 83880; 84484; 85025; 85380; 85610; 85730; 93005; 93306; 96372; 96374; 96376; 99285; A9270; G0378; J1650; J2270

== ENCOUNTER 2025-06-02 17:53 | Emergency (ER) | payer MEDICARE, MEDICAID, SELFPAY ==
[2025-06-02] VITALS (9 sets, daily range): BP systolic 149; BP diastolic 78; PULSE 64–75; RESP 12–23; TEMP 36.5; O2SAT 97–100
--- OUTSIDE RECORDS SUMMARY | 2025-06-02 17:55 | XMS_ITS | Clinical Summary ---
Author Organization [facility] Address [address] [facility] [address] [place] [address] Care Team Providers Care Cleaner Furniture Name Role Phone Adele Lagos MD Primary Care Provider [phone] Allergies Active Allergy Reactions Criticality Noted Date [...] Other. Active Insulin Disposable Pump (Omnipod 5 LghH7O1 Pods Gen 5) Misc change pod every [...] Sex Assigned at Female 08/12/2024 6:07 PM CLINICAL TRIAL EDUCATOR Legal Sex Female 4:01 AM CLINICAL TRIAL EDUCATOR Gender Identity Female 08/12/2024 6:07 PM CLINICAL TRIAL EDUCATOR Sexual Orientation Not on file Last Filed [...] - PCV) 10/02/2021 10/02/2020 Influenza Immunization (#1) 05/15/202505/15, 06/16/2021, 09/29/2020, Additional history exists SARS-COV-2 Immunization ( season) 2025 09/13/2021, 12/14/2020, 11/16/2020 Cervical Cancer Screening (CCS) [...] Insurance MEDICA[place] MED[place]ARE MEDICARE MEDICARE C [facility] [place] Care Teams Cleaner Furniture Relationship Specialty Start Date End Date Adele Lagos MD [address] [place] [address] PCP - General Family Medicine 07/15/20
--- OUTSIDE RECORDS SUMMARY | 2025-06-02 17:55 | XMS_ITS | Encounter Summary ---
Author Organization [facility] Address [address] [facility] [address] [place] [address] Phone Care Team Providers Care Spoke Maker Name Role Phone Brissa Tijerina MD Primary Care Provider U shannon Encounter Details Date Type Department Care Team (Late st Contact Info) Description 05/01/2025 Documentation Only [facility] [address] [facility] [address] [place] [address] [place] [address] Social History Tobacco Use Types [...] (HCC) documented in this encounter Care Teams Spoke Maker Relationship Specialty Start Date End Date Brissa Tijerina MD [address] [place] [phone] PCP - General Family Medicine 04/17/25 documented as of this encounter
--- OUTSIDE RECORDS SUMMARY | 2025-06-02 17:55 | XMS_ITS | Clinical Summary ---
Author Organization [facility] Address [address] [place] [address] Phone Care Team Providers Care Director Prison Name Role Phone Brissa Tijerina MD Primary [...] misc CHANGE SENSOR EVERY 10 DAYS PER LEAD ORACLE DEVELOPER 02/23/20 25 Active dicyclomine (BENTYL) 20 MG [...] BEDTIME Active Insulin Disposable Pump (Omnipod 5 AmvF1W3 Pods Gen 5) misc change pod every [...] [facility] [address] [place] [id number] Rich Lorena 05/01/2025 Documentation Only [facility] [address] [place] [address] Rich Lorena 05/01/2025 Orders Only [facility] [address] [place] [phone] Lorena Villanueva 05/01/2025 Telephone [facility] [address] [place] [address] Rich Lorena from Last 3 Months Immunizations [...] ID:Not on file Type:Not on file Address: [address] [facility] Medicare Medicare [facility] [place] [address] [place] [address] Care Teams Director Prison Relationship Specialty Start Date End Date Brissa Tijerina MD [address] [place] [phone] PCP - General Family Medicine 04/17/25
--- OUTSIDE RECORDS SUMMARY | 2025-06-02 17:55 | XMS_ITS | Clinical Summary ---
Author Organization [facility] Address [address] [place] [address] Phone Care Team Providers Care Track Fitter Name Role Phone Unavailable Primary Care Provider Unavailabl e Social History Tobacco Use Types Packs/Day Years Used Date Smoking Tobacco: Never Assessed Comments Unknown Sex and Gender Information Value Date Recorded Sex Assigned at Not on file Legal Sex Female 6:40 PM TAKER OFF DRYING KILN Gender Identity Not on file Sexual Orientation [...] COVID-19 Vaccine ( - 2023-2 5 season) 2025 Influenza Vaccine (#1) 2025 HIB Vaccines Aged [...]
[2025-06-02 18:31] LABS: Hematocrit 35.3 % (37.0-47.0); Hemoglobin 11.0 g/dL (12.0-15.0); Immature Granulocyte Percent A 0.2 % (0-0.5); Lymphocytes Absolute Auto 1.66 K/mm3 (0.9-3.2); Mean Corpuscular HGB Conc 31.2 g/dl (32-36); Mean Corpuscular Hemoglobin 26.6 pg (26-34); Mean Corpuscular Volume 85.3 fl (80-100); Nucleated Red Blood Cells Absolute Auto 0.000 K/mm3 (0.0-0.012); Nucleated Red Blood Cells Perc 0.0 % (0.0-0.2); Platelet Count Result 277 k/mm3 (150-375); Red Blood Count 4.14 M/mm3 (4.2-5.4); White Blood Count 6.6 K/mm3 (4.5-10.0)
[2025-06-02 18:50] LABS: Alanine Aminotransferase 31 U/L (6-35); Albumin Level 3.9 g/dL (3.5-5.1); Alkaline Phosphatase 146 U/L (38-126); Anion Gap 8 mmol/L (4-12); Aspartate Amino Transferase 70 U/L (14-36); Bilirubin,Total 0.8 mg/dL (0.2-1.3); Blood Urea Nitrogen 14 mg/dL (7-17); Calcium 9.2 mg/dL (8.4-10.2); Carbon Dioxide 23 mmol/L (22-30); Chloride 107 mmol/L (98-107); Estimated CRCL calculation 85 ml/min; Estimated Glomerular Filt Rate > 60; Glucose 126 mg/dL (65-110); Lipase 68 U/L (23-300); Potassium 4.4 mmol/L (3.4-5.0); Sodium 138 mmol/L (137-145); Total Protein 7.7 g/dL (6.3-8.2)
[2025-06-02 20:05] LABS: BEDSIDEPREGUCG Negative (Negative)
[2025-06-02] MEDS: MORPHINE SULFATE (*CRX) 4 MG/ML INJ IV PUSH (20:35)
[2025-06-02] MEDS: ONDANSETRON INJ 4 MG/2 ML VIAL IV PUSH (20:35)
[2025-06-02 20:51] LABS: Add Urine Microscopic? YES; Appearance Urine Cloudy (Clear); Glucose Urine UA Negative (Negative); Leukocyte Esterase Ur 3+ LEU/UL (Negative); Nitrate Urine Positive (Negative); Non Pathogenic Casts 0-2; Specific Grav Ur 1.016 (1.001-1.035)
[2025-06-02] MEDS: HYDROmorphone HCL INJ (*CRX) 1 MG/ML SYR 0.5 MG IV PUSH (21:47)
--- NOTE | 2025-06-02 21:59 | ED.ABDPAIN ---
HPI - Abdominal Pain General Chief Complaint: Abdominal Pain Stated Complaint: abdominal pain Time Seen by Provider: 06/02/25 19:52 History of Present Illness HPI narrative: Patient presents with right lower quadrant abdominal pain, she has already had appendectomy and cholecystectomy, she has had pain like this in the past likely from IBS and or gastroparesis. Also associated with some nausea vomiting. Has tried home Bentyl and [place] without much improvement. Has had normal bowel movements including once today. Related Data Home Medications ?Medication ?Instructions ?Recorded ?Confirmed ?Last Taken ?Type amlodipine 5 mg tablet 5 mg PO DAILY@79905/13/25 06/02/25 Unknown History atorvastatin 80 mg tablet 80 mg PO DAILY@79905/13/25 06/02/25 Unknown History blood-glucose sensor (Dexcom G7 05/13/25 05/13/25 Unknown History Sensor device) carvedilol 12.5 mg tablet 12.5 mg PO BID 05/13/25 06/02/25 05/13/25 09:30 History 12.5 mg dicyclomine 20 mg tablet 20 mg PO BID 05/13/25 06/02/25 05/13/25 09:30 History 20 mg erenumab-aooe 70 mg/mL 70 mg subcut MONTHLY 05/13/25 06/02/25 04/23/25 History subcutaneous auto-injector (Aimovig Autoinjector) hydroxyzine HCl 25 mg tablet 25 mg PO HS 05/13/25 06/02/25 05/12/25 22:30 History 50 mg insulin lispro 100 unit/mL 1 sliding scale dose continuous 05/13/25 06/02/25 05/13/25 18:50 History subcutaneous solution (Humalog subcutaneous infusion PRN PRN 6.3 U-100 Insulin) hyperglycemia insulin pump cart,auto,BT,G6/7 05/13/25 05/13/25 Unknown History (Omnipod 5 G6-G7 Pods (Gen 5) subcutaneous cartridge) methocarbamol 500 mg tablet 500 mg PO HS 05/13/25 06/02/25 05/12/25 22:30 History 500 mg pantoprazole 40 mg tablet,delayed 40 mg PO HS 05/13/25 06/02/25 05/12/25 22:30 History release 40 mg ropinirole 0.25 mg tablet 0.75 mg PO HS PRN restless leg(s) 05/13/25 06/02/25 05/08/25 22:00 History 0.75 mg venlafaxine 150 mg 150 mg PO QPM 05/13/25 06/02/25 05/12/25 22:30 History capsule,extended release 24 hr 150 mg Allergies Allergy/AdvReac Type Severity Reaction Status Date / Time prochlorperazine Allergy Intermediate Agitated Verified 06/02/25 18:05 clarithromycin Allergy Mild VIOLENTLY Verified 06/02/25 18:05 ILL WITH VOMITING sumatriptan Allergy Mild POUNDING Verified 06/02/25 18:05 HR, DIFFICULTY BREATHING metoclopramide AdvReac Intermediate Jittery Verified 06/02/25 18:05 diphenhydramine AdvReac Unknown GOES Verified 06/02/25 18:05 CRAZY Review of Systems Review of Systems: All systems reviewed & are unremarkable except as noted in HPI and below PMFSH Past Medical History Medical History (Updated 06/02/25 @ 21:42 by Elvira Zuniga MD) Jean Claude cell tumor Diabetes mellitus Hypertension Arthritis Asthma Surgical History Surgical History H/O cardiac catheterization Social History Social History Smoking status: Never smoker Smokeless tobacco user: snus Alcohol intake: never Lack of Transportation: No Lack of Food: Never True Current Housing: I Have Housing Concerned About Future Housing: No Difficulty Paying Gas/Electric Bills: No Difficulty Paying for Meds: No Currently Unemployed: No Education: Don't Know Difficulty w/ Childcare or Family Care: No Spiritual care concerns: No Exam Narrative: EXAMINATION OF ORGAN SYSTEMS/BODY AREAS: Constitutional: Vital signs per nursing GENERAL:[No acute distress, non-toxic appearing.] Appears slightly uncomfortable. HEAD: Normal with no signs of head trauma. EYES: EOMI, conjunctiva normal ENT: Hearing grossly intact LUNGS: Nonlabored breathing. HEART: [Regular rate and rhythm] ABD: [Soft], [nontender to palpation] EXT: Normal range of motion SKIN: [No rashes or lesions.] NEURO: [Alert and oriented x 3. No gross focal sensory or strength deficits.] PSYCH: Normal affect Course Vital Signs Vital signs: Vital Signs Temperature 97.7 F 06/02/25 18:02 Pulse Rate 75 06/02/25 18:02 Respiratory Rate 16 06/02/25 18:02 Blood Pressure 149/78 H 06/02/25 18:02 Pulse Oximetry 98 06/02/25 18:02 Oxygen Delivery Room Air 06/02/25 18:02 Temperature 97.7 F 06/02/25 18:02 Pulse Rate 75 06/02/25 18:02 Respiratory Rate 16 06/02/25 18:02 Blood Pressure 149/78 H 06/02/25 18:02 Pulse Oximetry 98 06/02/25 18:02 Oxygen Delivery Room Air 06/02/25 18:02 MDM - Abdominal Pain MDM Narrative Medical decision making narrative: Electronic medical record was reviewed. Patient presented to the ED with complaint of [right-sided abdominal pain and vomiting]. Vitals [were within acceptable limits]. Physical exam revealed soft abdomen without any significant tenderness to palpation. Based on the patient's history and physical exam, my differential includes but is not limited to [gastritis, gastroparesis, gastroenteritis; also considered SBO however patient without any tenderness and has had normal bowel movement]. [IV access was established by nursing staff. Patient was given zofran, morphine]. CBC, BMP, lipase, LFTs, bilirubin and alk phos were obtained. Labs were pertinent for essentially normal labs, she does have some WBCs in urine however patient states she is currently taking antibiotics for this. I did discuss with patient obtaining a CT scan, however patient is concerned she has had multiple CTs in the past and does not want a CT. I did discuss that this may result in missed diagnosis of surgical emergencies including bowel obstruction, patient expresses understanding but still declines CT at this time. On reevaluation, the patient states that they are feeling slightly better. There were no witnessed episodes of vomiting in the emergency department. They are not complaining of any new abdominal pain. Repeat examination did not show any significant guarding or rebound. No new tenderness. Her nausea has improved. Patient request 1 more dose of pain medication and then discharged. I did again offer to obtain a CT scan which she again refused. She does express understanding of the risks of a missed diagnosis. She would like to go home at this time, she does have follow-up with a operations research engineer in 1 week for a planned colonoscopy. The patient was given strict return precautions, if they are to develop any worsening abdominal pain, vomiting, or blood in the vomit they are to return to the emergency department immediately. Patient verbally acknowledges understanding these directions. [The patient was informed of the above diagnostic test findings.] They will be discharged home and she already has Zofran and Liyl and [place] at home.. They were advised to follow-up with their GI and PCP in 2 days. The patient feels that this is appropriate medical decision making and verbalizes an understanding of the discharge instructions. Lab Data 06/02/25 18:25 06/02/25 18:25 Labs: Lab Results 06/02/25 06/02/25 06/02/25 Range/Units 18:25 20:03 20:04 WBC 6.6 (4.5-10.0) K/mm3 RBC 4.14 L (4.2-5.4) M/mm3 Hgb 11.0 L (12.0-15.0) g/dL Hct 35.3 L (37.0-47.0) % MCV 85.3 (80-100) fl MCH 26.6 (26-34) pg MCHC 31.2 L (32-36) g/dl RDW 13.4 (11.5-14.5) % Plt Count 277 (150-375) k/mm3 MPV 9.1 (7.4-10.4) fl Immature Gran % (Auto) 0.2 (0-0.5) % Neut % (Auto) 59.7 (45.5-73.1) % Lymph % (Auto) 25.3 (18.3-44.2) % Harper % (Auto) 9.0 H (2.6-8.5) % Eos % (Auto) 4.6 H (0-4.4) % Baso % (Auto) 1.2 (0.2-1.2) % Lymph # (Auto) 1.66 (0.9-3.2) K/mm3 Harper # (Auto) 0.6 (0.1-0.6) K/mm3 Eos # (Auto) 0.3 (0-0.3) K/mm3 Baso # (Auto) 0.1 (0.0-0.1) K/mm3 Abs Immat Gran (auto) 0.01 (0.00-0.031) K/mm3 Absolute Neuts (auto) 3.9 (1.3-6.7) K/mm3 Absolute Nucleated RBC 0.000 (0.0-0.012) K/mm3 Nucleated RBC % 0.0 (0.0-0.2) % Sodium 138 (137-145) mmol/L Potassium 4.4 (3.4-5.0) mmol/L Chloride 107 (98-107) mmol/L Carbon Dioxide 23 (22-30) mmol/L Anion Gap 8 (4-12) mmol/L BUN 14 (7-17) mg/dL Creatinine 0.90 (0.7-1.0) mg/dL Estim Creat Clear Calc 85 ml/min Estimated GFR > 60 (59 - ) Glucose 126 H (65-110) mg/dL Calcium 9.2 (8.4-10.2) mg/dL Total Bilirubin 0.8 (0.2-1.3) mg/dL AST 70 H (14-36) U/L ALT 31 (6-35) U/L Alkaline Phosphatase 146 H (38-126) U/L Total Protein 7.7 (6.3-8.2) g/dL Albumin 3.9 (3.5-5.1) g/dL Lipase 68 (23-300) U/L Urine Color Dark yellow (Yellow) Urine Appearance Cloudy H (Clear) Urine pH 6.0 (5.0-9.0) Ur Specific [place] 1.016 (1.001-1.035) Urine Protein Trace (Negative) mg/dL Urine Glucose (UA) Negative (Negative) mg/dL Urine Ketones Negative (Negative) mg/dL Ur Blood (Man) Negative (Negative) Urine Nitrate Positive H (Negative) Urine Bilirubin 1+ H (Negative) Urine Urobilinogen 1.0 (<2.0) mg/dL Leukocyte Esterase Rfl 3+ H (Negative) NENA/UL Urine RBC 3-5 H (0-2) /hpf Urine WBC 6-10 H (0-3) /hpf Ur Squamous Epith Cells Moderate (Few) /hpf Urine Bacteria None seen /hpf Urine Casts 0-2 POC Urine HCG, Qual Negative (Negative) Discharge Plan Discharge Clinical Impression: Abdominal pain Patient Disposition: Home Condition: Stable Instructions: Abdominal Pain (ED) Additional Instructions: Please follow up with your operations research engineer as scheduled; if your pain returns, please come back to the ER. Patient Language: Hong Konger Prescriptions: No Action hydrocodone-acetaminophen 5-325 mg tablet 1 tablet PO Q6H PRN (Reason: pain) Qty: 10 0RF amlodipine 5 mg tablet 5 mg PO DAILY@0800 Patient Comments: had been on hold since february atorvastatin 80 mg tablet 80 mg PO DAILY@0800 Patient Comments: has been on hold since apr 20 carvedilol 12.5 mg tablet 12.5 mg PO BID (DME) Dexcom G7 Sensor Device MISCELLANEOUS Patient Comments: changed 05/12/2025 dicyclomine 20 mg tablet 20 mg PO BID Aimovig Autoinjector 70 mg/mL auto-injector 70 mg SUBCUT MONTHLY Patient Comments: took 04/23/2025 not do till 05/24/2025 hydroxyzine HCl 25 mg tablet 25 mg PO HS insulin lispro [Humalog U-100 Insulin] 100 unit/mL solution 1 sliding scale dose continuous subcutaneous infusion PRN PRN (Reason: hyperglycemia) Rx Instructions: 1 sliding scale dose via continuous subcutaneous infusion PRN; (DME) Omnipod 5 G6-G7 Pods (Gen 5) Cartridge SUBCUT methocarbamol 500 mg tablet 500 mg PO HS pantoprazole 40 mg tablet,delayed release (DR/EC) 40 mg PO HS ropinirole 0.25 mg tablet 0.75 mg PO HS PRN (Reason: restless leg(s)) venlafaxine 150 mg capsule,extended release 24hr 150 mg PO QPM Patient Comments: Dose changed on thursday aspirin [Children's Aspirin] 81 mg Tablet,Chewable 81 mg PO DAILY@0800 Qty: 30 0RF isosorbide mononitrate 60 mg Tablet Extended Release 24 Hr 60 mg PO QAM Qty: 30 1RF Follow-up/Referrals: Breezy,Brissa Zamora MD [Primary Care Provider, Unknown]
== END 2025-06-02 22:05 | disposition home or self-care (01) ==
PROVIDERS: Emergency Medicine; Emergency Provider Emergency Medicine; PCP Family Medicine
DX: R10.31 Right lower quadrant pain (principal); E11.9 Type 2 diabetes mellitus without complications
CPT/HCPCS: 36415; 80053; 81001; 81025; 82948; 83690; 85025; 96374; 96375; 99284; J1171; J2270; J2405

== ENCOUNTER 2025-06-15 16:05 | Emergency (ER) | payer MEDICARE, MEDICAID, SELFPAY ==
--- OUTSIDE RECORDS SUMMARY | 2025-06-13 19:42 | XMS_ITS | Encounter Summary ---
Author Organization [facility] Address [address] [place] [address] Care Team Providers Care Machine Cloth Trimmer Name Role Phone Hero Bearden MD Unavailable Ce Villalobos MD Unavailable Brissa Tijerina MD Primary Care Provider + Reason for Visit * Reason Comments Back Pain Encounter Details Date Type Department Care Team (Late st Contact Info) Description 06/13/2025 7:42 PM CDT - 06/13/2025 10:23 PM CDT Emergency [facility] [address] [place] [address] Edwardo Ken MD [address] [place] [address] [phone] Back Pain Discharge Disposition: Home or Self Care (Routine Discharge) Social History Tobacco Use Types Packs/Day Years [...] Recorded Patient Health Questionnaire-2 Score 0 10/31/2022 [facility] Occupational Stress Questionnaire Answer Date [...] place to sleep or slept in a intermediate (including now)? Yes 05/08/2023 Comments No Sex and Gender Information Value Date Recorded Sex Assigned at Female 09/30/2024 10:51 PM CIVIL ENGINEER Legal Sex Female 7:02 PM CDT Gender Identity Not on file Sexual Orientation Not on file documented as of this encounter Last Filed Vital Signs Vital Sign Reading Time Taken Comments Blood Pressure 178/84 06/13/2025 10:12 PM CDT Pulse 91 06/13/2025 10:12 PM CDT Temperature 36.7 C (98 F) 06/13/2025 6:35 PM CDT Respiratory Rate 18 06/13/2025 10:12 PM CDT Oxygen Saturation 94% 06/13/2025 10:12 PM CDT Inhaled Oxygen Concentration - - Weight 123.4 kg (272 lb) 06/13/2025 6:35 PM CDT Height 170.2 cm (5' 7) 06/13/2025 6:35 PM CDT Body Mass Index 42.6 06/13/2025 6:35 PM CDT documented in this encounter Functional Status * Are you deaf or do you have serious difficulty hearing Answer Date of Assessment Author Status No 05/07/2023 11:00 PM CDT Pauline Lora, R N Active * Are you blind or do you have serious difficulty seeing, even when wearing glasses? Answer Date of Assessment Author Status No 05/07/2023 11:00 PM CDT Pauline Lora, R N Active * Do you have serious difficulty walking or climbing stairs? Answer Date of Assessment Author Status No 05/07/2023 11:00 PM CDT Pauline Lora, R N Active * Do you have difficulty dressing or bathing? Answer Date of Assessment Author Status No 05/07/2023 11:00 PM CDT Pauline Lora, R N Active * Because of a physical, mental, or emotional condition, do you have difficulty doing errands alone such as visiting a doctor's office or shopping? Answer Date of Assessment Author Status No 05/07/2023 11:00 PM CDT Pauline Lora, R N Active * Calculated C-SSRS Risk Score (Lifetime/Recent) Answer Date of Assessment Author Status No Risk Indicated 06/13/2025 6:35 PM CDT Hernandez Thorpe RN Active * [place] Suicide Severity Rating Scale (Screener/Recent Self-Report) Question Answer Date of Assessment Author Status 1. Wish to be (Past 1 Month) No 06/13/2025 6:35 PM CDT Linden Thorpe RN Acti ve 2. Non-Specific Active Suicidal Thoughts (Past 1 Month) No 06/13/2025 6:35 PM CDT Linden Thorpe RN Acti ve 6. Suicidal Behavior (Lifetime) No 06/13/2025 6:35 PM CDT Linden Thorpe RN Acti ve documented as of this encounter Mental Status * Because of a physical, mental, or emotional condition, do you have serious difficulty concentrating, remembering, or making decisions? Answer Entry Date Author Status No 05/07/2023 11:00 PM CDT Pauline Lora R N Active documented in this encounter Discharge Instructions * Discharge Instructions* Edwardo Ken MD - 06/13/2025 10:02 PM CDT Follow-up with your family physician referral to physical therapy follow-up with your spine pain management physician * Attachments The following attachments cannot be sent through Care Everywhere. * Low Back Pain Discharge Instructions (Latvian) documented in this encounter Medications at Time of Discharge albuterol sulfate HFA 108 (90 Base) MCG/ACT inhaler Inhale 2 puffs into the lungs every 6 (six) hours as needed for Wheezing. amLODIPine 5 MG tablet Take 1 tablet (5 mg total) by mouth nightly at bedtime. 12/19/2020 atorvastatin 40 MG tablet Take 2 tablets (80 mg total) by mouth nightly at bedtime. 12/19/2020 carvedilol (COREG) 6.25 MG tablet Take 1 tablet (6.25 mg total) by mouth 2 (two) times daily. citalopram (CELEXA) 40 MG tablet Take 1 tablet (40 mg total) by mouth nightly at bedtime. dicyclomine (BENTYL) 20 MG tablet Take 1 tablet (20 mg total) by mouth 2 (two) times a day. doxepin (SINEQUAN) 50 MG capsule Take 75 mg by mouth nightly at bedtime. HUMALOG KWIKPEN 100 UNIT/ML injection (PEN) Inject into the skin 3 (three) times daily before meals. In insulin pump 01/29/2024 HYDROcodone-aceta minophen (NORCO) 5-325 MG tabletIndications :Acute Pain < 7 Day Supply Take 1-2 tablets by mouth every 6 (six) hours as needed. Indications: Acute Pain < 7 Day Supply 16 tablet 05/10/2024 insulin glargine (LANTUS) 100 UNIT/ML injection (PEN) Inject 80 Units into the skin nightly at bedtime. ketorolac (TORADOL) 10 MG tablet Take 1 tablet (10 mg total) by mouth every 6 (six) hours as needed for Pain. ONETOUCH ULTRA test strip use 1 strip to check glucose three times daily 07/01/2022 pantoprazole EC (PROTONIX) 40 MG tablet Take 1 tablet (40 mg total) by mouth nightly at bedtime. RELION INSULIN SYRINGE 31G X 15/64 1 ML Misc USE 1 NEW SYRINGE 4 TIMES DAILY AND NEEDED 08/22/2022 tiZANidine (ZANAFLEX) 4 MG tablet Take 1 tablet (4 mg total) by mouth nightly at bedtime. documented as of this encounter ED Notes * Edwardo Ken MD - 06/13/2025 10:02 PM CDT Chief Complaint Chief Complaint Patient presents with Back Pain History of Present Illness 54-year-old morbidly obese white female history of diabetes, history of CKD stage III per patient, has chronic back pain and pain syndrome, here for worsening back pain. Happened few days ago when she was carrying clothes from laundry machine tender up into her room. She denies any radiation of pain in his extremities. She denies bowel or bladder problem She denies numbness in her extremities or saddle numbness She reports she is followed by specialist and is planned to get nerve ablation for her chronic pain. She reports she was here last time of gave her morphine along with muscle relaxant and that really helped. She is chronically on [place] 7.5 she took the last tablet afternoon today she also took her tizanidine in the morning she reports that the pain is worse. She is here to get the shot. She reports she cannot take NSAIDs because her painter ordnance told her to avoid it she reports she cannot take steroids because it makes her sugar go up. Medical History ALLERGIES: Review of patient's allergies indicates: Allergen Reactions Clarithromycin Vomiting and Nausea Only Diphenhydramine Anxiety and Rash Strawberries Shortness of Breath Meperidine Hcl Unknown Metoclopramide Other (see comment) with IM/IV injection-anxiety inducing Sumatriptan Itching and Unknown Other reaction(s): N/A * Compazine [Prochlorperazine] Anxiety and Unknown MEDICATIONS: Prior to Admission medications Medication Sig Start Date End Date Taking? Authorizing Provider albuterol sulfate HFA 108 (90 Base) MCG/ACT inhaler Inhale 2 puffs into the lungs every 6 (six) hours as needed for Wheezing. Default History Genericprovider amLODIPine 5 MG tablet Take 1 tablet (5 mg total) by mouth nightly at bedtime. 12/19/20 Doc [facility] atorvastatin 40 MG tablet Take 2 tablets (80 mg total) by mouth nightly at bedtime. 12/19/20 [facility] carvedilol (COREG) 6.25 MG tablet Take 1 tablet (6.25 mg total) by mouth 2 (two) times daily. Default History Genericprovider citalopram (CELEXA) 40 MG tablet Take 1 tablet (40 mg total) by mouth nightly at bedtime. Default History Genericprovider dicyclomine (BENTYL) 20 MG tablet Take 1 tablet (20 mg total) by mouth 2 (two) times a day. DefaultHistory Genericprovider doxepin (SINEQUAN) 50 MG capsule Take 75 mg by mouth nightly at bedtime. Default History Genericprovider HUMALOG KWIKPEN 100 UNIT/ML injection (PEN) Inject into the skin 3 (three) times daily before meals. In insulin pump 01/29/24 Default History Genericprovider HYDROcodone-acetaminophen (NORCO) 5-325 MG tablet Take 1-2 tablets by mouth every 6 (six) hours as needed. Indications: Acute Pain < 7 Day Supply 05/10/24 Mele Neumann MD insulin glargine (LANTUS) 100 UNIT/ML injection (PEN) Inject 80 Units into the skin nightly at bedtime. Default History Genericprovider ketorolac (TORADOL) 10 MG tablet Take 1 tablet (10 mg total) by mouth every 6 (six) hours as neededfor Pain. Default History Genericprovider ONETOUCH ULTRA test strip use 1 strip to check glucose three times daily 07/01/22 Default History Genericprovider pantoprazole EC (PROTONIX) 40 MG tablet Take 1 tablet (40 mg total) by mouth nightly at bedtime. Default History Genericprovider RELION INSULIN SYRINGE 31G X 15/64 1 ML Misc USE 1 NEW SYRINGE 4 TIMES DAILY AND NEEDED 08/22/22Default History Genericprovider tiZANidine (ZANAFLEX) 4 MG tablet Take 1 tablet (4 mg total) by mouth nightly at bedtime. Default History Genericprovider PAST MEDICAL HISTORY: Past Medical History[1] PAST SURGICAL HISTORY: Past Surgical History[2] FAMILY HISTORY: Family History[3] SOCIAL HISTORY: Social History[4] Review of Systems Review of Systems Constitutional: Negative for chills and fever. HENT: Negative. Eyes: Negative for discharge and redness. Respiratory: Negative for cough, shortness of breath and wheezing. Cardiovascular: Negative for chest pain. Gastrointestinal: Negative for abdominal pain, constipation, diarrhea, nausea and vomiting. Genitourinary: Negative. Musculoskeletal: Positive for back pain. Skin: Negative for rash. Neurological: Negative for weakness and headaches. Psychiatric/Behavioral: Negative. All other systems reviewed and are negative. Physical Exam Filed Vitals: 06/13/25 1835 BP: (!) 143/84 Pulse: 93 Resp: 17 Temp: 98 ??F (36.7 ??C) TempSrc: Temporal SpO2: 96% Weight: 123.4 kg (272 lb) Height: 1.702 m (5' 7) Physical Exam Vitals and nursing note reviewed. Constitutional: General: She is not in acute distress. HENT: Head: Normocephalic and atraumatic. Eyes: Conjunctiva/sclera: Conjunctivae normal. Cardiovascular: Rate and Rhythm: Normal rate and regular rhythm. Heart sounds: Normal heart sounds. Pulmonary: Effort: No respiratory distress. Breath sounds: Normal breath sounds. Abdominal: General: Bowel sounds are normal. Palpations: Abdomen is soft. There is no mass. Tenderness: There is no abdominal tenderness. There is no guarding or rebound. Musculoskeletal: General: No deformity. Normal range of motion. Cervical back: Normal range of motion and neck supple. Comments: Tender lower back muscles no point tenderness Skin: General: Skin is warm and dry. Neurological: General: No focal deficit present. Mental Status: She is alert and oriented to person, place, and time. Cranial Nerves: No cranial nerve deficit. Comments: Negative straight leg test Diagnostic Studies / Procedures ELECTROCARDIOGRAMS: No results found for this visit on 06/13/25. LABORATORY STUDIES: No results found for this visit on 06/13/25. IMAGING STUDIES No orders to display ED Course / Medical Decision Making Medical Decision Making Acute on chronic low back pain with Discussed using Voltaren gel she reports she is using it at home she has it we discussed about lidocaine patch she states she also has those and she has been using that at home. I have also advised her to discuss with her PCP about use of Neurontin for pain control he voiced understanding Clinical Impression Acute on chronic back pain (Primary) Disposition: Discharge [1] Past Medical History: Diagnosis Date Cancer ([facility]/HCC HHS/HCC) Chronic back pain Diabetes mellitus ([facility]/HCC HHS/HCC) Gastroparesis due to DM ([facility]/HCC) Hypertension Irritable bowel Migraines [2] Past Surgical History: Procedure Laterality Date APPENDECTOMY CARDIAC CATHETERIZATION Right CHOLECYSTECTOMY COLPOSCOPY 05/02/2020 HERNIA REPAIR OTHER PROCEDURE Right knee surgery [3] Family History Problem Relation Name Age of Onset Cancer Mother Heart Disease Mother Heart Disease Father Diabetes Father [4] Social History Tobacco Use Smoking status: Never Smokeless tobacco: Never Vaping Use Vaping status: Never Used Substance Use Topics Alcohol use: No Drug use: No Edwardo Ken MD 06/13/252206 * Linden Thorpe RN - 06/13/2025 6:35 PM CDT Patient presents to the ED with complaints of back pain. Patient states she has chronic back pain, patient states she her flare up started yesterday rating it 03/23 documented in this encounter Plan of Treatment Not on file documented as of this encounter Visit Diagnoses Diagnosis Acute on chronic back pain- Primary documented in this encounter Administered Medications Inactive Administered Medications - up to 3 most recent administrations Medication Order MAR Action Action Date Dose Rate Site morphine injection 2 mg 2 mg, Intramuscular, Once, 1 dose, On Thu06/13/25 at 2215 Given 06/13/2025 10:07 PM CDT 2 mg Right Deltoid orphenadrine (NORFLEX) injection 60 mg 60 mg, Intramuscular, Once, 1 dose, On Thu06/13/25 at 2215, If administering IV, give slow, approximately 5 minutes with patient in supine position. Patient should remain in this position for 5-10 minutes post injection. Given 06/13/2025 10:08 PM CDT 60 mg Right Anterior Thigh documented in this encounter Active and Recently Administered Medications Times are shown in CDT. Scheduled Medication Order 06/11/2025 06/12/2025 06/13/2025 morphine injection 2 mg (COMPLETED) 2 mg, Intramuscular, Once, 1 dose, On Thu06/13/25 at 2215 220 (Given - Provid er: David Prado RN) orphenadrine (NORFLEX) injection 60 mg (COMPLETED) 60 mg, Intramuscular, Once, 1 dose, On Thu06/13/25 at 2215, If administering IV, give slow, approximately 5 minutes with patient in supine position. Patient should remain in this position for 5-10 minutes post injection. 2207 (Given - Provid er: David Prado RN) documented in this encounter Care Teams Machine Cloth Trimmer Relationship Specialty Start Date End Date Brissa Tijerina MD [address] [place] [address] PCP - General FAMILY PRACTICE 11/03/24 Hero Bearden MD Multi Media Specialist OBGYN 04/04/22 Ce Villalobos MD [address] [place] [address] [place] Nuclear Physics Teacher CARDIOVASCULAR DISEASE 07/18/22 documented as of this encounter
--- NOTE | ~2025-06-15 | CT_ITS ---
EXAMINATION: CT abdomen pelvis w con DATE: 06/15/2025 18:58 INDICATION: Right lower quadrant abdominal pain TECHNIQUE: Computed tomography (CT) of the abdomen and pelvis was performed with 100 mL Omnipaque-350 intravenous contrast. Automated exposure control and iterative reconstruction technique were employed. The dose-length product was 1489.64 mGy-cm. COMPARISON: CT dated 02/21/2025 FINDINGS: Mild discoid atelectasis at the left lower lobe. Heart size normal. Atherosclerotic coronary artery calcification. No pericardial or pleural effusion. Cholecystectomy clips the gallbladder fossa. Liver, spleen, pancreas, bilateral adrenal glands and kidneys are normal. There are few scattered clonic diverticula without adjacent from trace stranding to suggest diverticular colitis. No bowel obstruction. The appendix is not visualized. No pericecal inflammatory change to suggest acute appendicitis. Bladder, uterus and bilateral adnexa are unremarkable. No free intraperitoneal gas or fluid. No pathologically enlarged abdominal or pelvic lymphadenopathy. 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 Rim calcification surrounding small region of fat deep to the umbilicus also likely representing developing heterotopic ossification related to prior fat necrosis. Moderate lower thoracic and lumbosacral spondylosis with mild intervening lumbar spondylosis.. IMPRESSION: 1. No acute intra-abdominal/pelvic process. Reviewed, dictated and finalized at location A.
--- OUTSIDE RECORDS SUMMARY | 2025-06-15 16:08 | XMS_ITS | Encounter Summary ---
Author Organization [facility] Address [address] [facility] [address] [place] [address] Phone Care Team Providers Care Timber Setter Name Role Phone Brissa Tijerina MD Primary Care Provider U shannon Encounter Details Date Type Department Care Team (Late st Contact Info) Description 05/01/2025 Documentation Only [facility] [address] [facility] [address] [place] [address] [place] [address] Social History Tobacco Use Types [...] (HCC) documented in this encounter Care Teams Timber Setter Relationship Specialty Start Date End Date Brissa Tijerina MD [address] [place] [phone] PCP - General Family Medicine 04/17/25 documented as of this encounter
--- OUTSIDE RECORDS SUMMARY | 2025-06-15 16:08 | XMS_ITS | Clinical Summary ---
Author Organization [facility] Address [address] [facility] [address] [place] [address] Care Team Providers Care Retail Receiving Clerk Name Role Phone Adele Lagos MD Primary Care Provider [phone] Allergies Active Allergy Reactions Criticality Noted Date [...] Other. Active Insulin Disposable Pump (Omnipod 5 [id number] Pods Gen 5) Misc change pod every [...] Sex Assigned at Female 08/12/2024 6:07 PM DRY CANS BACK TENDER Legal Sex Female 4:01 AM DRY CANS BACK TENDER Gender Identity Female 08/12/2024 6:07 PM DRY CANS BACK TENDER Sexual Orientation Not on file Last Filed [...] - 19+ 3-dose series) 1989 HPV/Cotest 2000 Medicare Initial AWV [id number] 10/15/2014 Cologuard 2015 Colonoscopy 2015 Colorectal Cancer Screening [...] topic Insurance [place] Member Subscriber Plan / Payer (Ef fective 2017-Present) Name:Leti White Relation to Subscriber:Self Name:Leti White Payer ID:[id number] Group ID:[id number] Type:Not on file Address: [address] [id number] MEDICARE MEDICARE C [employer] [place] Care Teams Retail Receiving Clerk Relationship Specialty Start Date End Date Adele Lagos MD [address] [place] [address] PCP - General Family Medicine 07/15/20
--- OUTSIDE RECORDS SUMMARY | 2025-06-15 16:08 | XMS_ITS | Clinical Summary ---
Author Organization [facility] Address [address] [place] [address] Phone Care Team Providers Care Crop Picker Name Role Phone Brissa Tijerina MD Primary [...] misc CHANGE SENSOR EVERY 10 DAYS PER INDUSTRIAL ACCOUNTANT 02/23/20 25 Active dicyclomine (BENTYL) 20 MG [...] BEDTIME Active Insulin Disposable Pump (Omnipod 5 [id number] Pods Gen 5) misc change pod every [...] [facility] [address] [place] [address] Rich Lorena 05/01/2025 Documentation Only [facility] [address] [place] [address] Rich Lorena 05/01/2025 Orders Only [facility] [address] [place] [phone] Lorena Villanueva 05/01/2025 Telephone [facility] [address] [place] [address] Rich Lorena from Last 3 Months Immunizations [...] ID:Not on file Type:Not on file Address: [address] [facility] Medicare [place] [address] [place] [address] Care Teams Crop Picker Relationship Specialty Start Date End Date Brissa Tijerina MD [address] [place] [phone] PCP - General Family Medicine 04/17/25
--- OUTSIDE RECORDS SUMMARY | 2025-06-15 16:08 | XMS_ITS | Clinical Summary ---
Author Organization [facility] Address [address] [place] [address] Phone Care Team Providers Care Inspector Government Property Name Role Phone Unavailable Primary Care Provider Unavailabl e Social History Tobacco Use Types Packs/Day Years Used Date Smoking Tobacco: Never Assessed Comments Unknown Sex and Gender Information Value Date Recorded Sex Assigned at Not on file Legal Sex Female 6:40 PM TEXTILE SCIENCE TECHNICIAN Gender Identity Not on file Sexual Orientation [...]
[2025-06-15 16:14] VITALS: BP 132/76; PULSE 73; RESP 12; TEMP 36.4; O2SAT 100
[2025-06-15 17:40] VITALS: BP 114/94; PULSE 68; RESP 17; TEMP 36.4; O2SAT 98
[2025-06-15 17:49] VITALS: BP 111/68; PULSE 105; RESP 17; O2SAT 100
[2025-06-15 18:01] VITALS: BP 139/62; PULSE 72; RESP 28; O2SAT 100
[2025-06-15 18:05] LABS: Hematocrit 34.2 % (37.0-47.0); Hemoglobin 11.1 g/dL (12.0-15.0); Immature Granulocyte Percent A 1.0 % (0-0.5); Lymphocytes Absolute Auto 2.05 K/mm3 (0.9-3.2); Mean Corpuscular HGB Conc 32.5 g/dl (32-36); Mean Corpuscular Hemoglobin 27.1 pg (26-34); Mean Corpuscular Volume 83.6 fl (80-100); Nucleated Red Blood Cells Absolute Auto 0.000 K/mm3 (0.0-0.012); Nucleated Red Blood Cells Perc 0.0 % (0.0-0.2); Platelet Count Result 255 k/mm3 (150-375); Red Blood Count 4.09 M/mm3 (4.2-5.4); White Blood Count 7.8 K/mm3 (4.5-10.0)
[2025-06-15 18:14] LABS: Alanine Aminotransferase 23 U/L (6-35); Albumin Level 3.9 g/dL (3.5-5.1); Alkaline Phosphatase 137 U/L (38-126); Anion Gap 7 mmol/L (4-12); Aspartate Amino Transferase 35 U/L (14-36); Bilirubin,Total 1.2 mg/dL (0.2-1.3); Blood Urea Nitrogen 12 mg/dL (7-17); Calcium 9.1 mg/dL (8.4-10.2); Carbon Dioxide 24 mmol/L (22-30); Chloride 107 mmol/L (98-107); Estimated CRCL calculation 101 ml/min; Estimated Glomerular Filt Rate > 60; Glucose 109 mg/dL (65-110); Lipase 66 U/L (23-300); Potassium 3.7 mmol/L (3.4-5.0); Sodium 138 mmol/L (137-145); Total Protein 7.4 g/dL (6.3-8.2)
[2025-06-15 18:16] VITALS: BP 141/73; PULSE 74; RESP 18; O2SAT 95
--- NOTE | 2025-06-15 18:22 | ED_ITS ---
HPI - Abdominal Pain General Chief Complaint: Abdominal Pain Stated Complaint: R groin/abdominal Time Seen by Provider: 06/15/25 17:37 History of Present Illness HPI narrative: Patient is a 54-year-old female who presents to the ER with severe right upper and lower quadrant abdominal pain. She reports that started last night but this morning it became constant. Patient reports her last bowel movement was this morning and it was loose but not diarrhea. She endorses a history of IBS, diabetes, gastroparesis, fibromyalgia, hyperlipidemia, high blood pressure, cholecystectomy, and appendectomy. Patient denies any hematuria, recent fevers, or left-sided abdominal pain. She reports she was diagnosed with urinary tract infection couple of days ago and has been taking Augmentin. Related Data Home Medications ?Medication ?Instructions ?Recorded ?Confirmed ?Last Taken ?Type amlodipine 5 mg tablet 5 mg PO DAILY@79905/13/25 06/02/25 Unknown History atorvastatin 80 mg tablet 80 mg PO DAILY@79905/13/25 06/02/25 Unknown History blood-glucose sensor (Dexcom G7 05/13/25 05/13/25 Unk nown History Sensor device) carvedilol 12.5 mg tablet 12.5 mg PO BID 05/13/2505/1505/13/25 09:30 History 12.5 mg dicyclomine 20 mg tablet 20 mg PO BID 05/13/2505/13/25 09:30 History 20 mg erenumab-aooe 70 mg/mL 70 mg subcut MONTHLY 5 06/02/25 04/23/25 History subcutaneous auto-injector (Aimovig Autoinjector) hydroxyzine HCl 25 mg tablet 25 mg PO HS 05/13/2505/1505/12/25 22:30 History 50 mg insulin lispro 100 unit/mL 1 sliding scale dose contin uous 05/13/25 06/02/25 05/13/25 18:50 History subcutaneous solution (Humalog subcutaneous infusion P RN PRN 6.3 U-100 Insulin) hyperglycemia insulin pump cart,auto,BT,G6/7 05/13/25 05/13/25 Unkn own History (Omnipod 5 G6-G7 Pods (Gen 5) subcutaneous cartridge) methocarbamol 500 mg tablet 500 mg PO HS 05/13/2505/1505/12/25 22:30 History 500 mg pantoprazole 40 mg tablet,delayed 40 mg PO HS 05/13/25 06/02/25 05/12/25 22:30 History release 40 mg ropinirole 0.25 mg tablet 0.75 mg PO HS PRN restless l eg(s) 05/13/25 06/02/25 05/08/25 22:00 History 0.75 mg venlafaxine 150 mg 150 mg PO QPM 05/13/2506/0205/12/25 22:30 History capsule,extended release 24 hr 150 mg Allergies Allergy/AdvReac Type Severity Reaction Status Date / Time prochlorperazine Allergy Intermediate Agitated Verified 06/02/25 18:05 clarithromycin Allergy Mild VIOLENTLY Verified 06/02/25 18:05 ILL WITH VOMITING sumatriptan Allergy Mild POUNDING Verified 06/02/25 18:05 HR, DIFFICULTY BREATHING metoclopramide AdvReac Intermediate Jittery Verified 06/02/25 18:05 diphenhydramine AdvReac Unknown GOES Verified 06/02/25 18:05 CRAZY Review of Systems 2 Review of Systems: All systems reviewed & are unremarkable except as noted in HPI and below PMFSH Past Medical History Medical History Jean Claude cell tumor Diabetes mellitus Hypertension Arthritis Asthma Surgical History Surgical History H/O cardiac catheterization Social History Social History Smoking status: Never smoker Smokeless tobacco user: snus Alcohol intake: never Lack of Transportation: No Lack of Food: Never True Current Housing: I Have Housing Concerned About Future Housing: No Difficulty Paying Gas/Electric Bills: No Difficulty Paying for Meds: No Currently Unemployed: No Education: Don't Know Difficulty w/ Childcare or Family Care: No Spiritual care concerns: No Exam 2 Narrative: GENERAL: Slightly diaphoretic, obese, non-toxic, in mild distress due to pain. HEAD: Normocephalic, atraumatic. NECK: Supple. No adenopathy, no masses. RESPIRATORY: Airway patent, respirations nonlabored. Clear to auscultation bilaterally, no rales, rhonchi, wheezing. CARDIOVASCULAR: Tachycardia without murmurs, rubs, or gallops. Peripheral pulses 2+ and equal bilaterally. ABDOMINAL: Soft, tender RUQ and RLQ, mildly distended. Normoactive BS. MUSCULOSKELETAL: Moves all extremities. Strength/ROM intact without gross deformities. SKIN: Warm, dry, normal color. No rashes. NEURO: A&O X3. Speech clear. Cranial nerves II-XII intact. No ataxic movements. PSYCHIATRIC: Tearful Course Vital Signs Vital signs: Vital Signs Temperature 36.4 C L 06/15/25 16:14 Pulse Rate 73 06/15/25 16:14 Respiratory Rate 12 06/15/25 16:14 Blood Pressure 132/76 06/15/25 16:14 Pulse Oximetry 100 06/15/25 16:14 Temperature 36.4 C 06/15/25 17:40 Pulse Rate 74 06/15/25 18:16 Respiratory Rate 18 06/15/25 18:16 Blood Pressure 141/73 H 06/15/25 18:16 Pulse Oximetry 95 06/15/25 18:16 MDM - Abdominal Pain MDM Narrative Medical decision making narrative: Patient is a 54-year-old female who presents to the ER with severe right upper and lower quadrant abdominal pain. She reports that started last night but this morning it became constant. Patient reports her last bowel movement was this morning and it was loose but not diarrhea. She endorses a history of IBS, diabetes, gastroparesis, fibromyalgia, hyperlipidemia, high blood pressure, cholecystectomy, and appendectomy. Patient denies any hematuria, recent fevers, or left-sided abdominal pain. She reports she was diagnosed with urinary tract infection couple of days ago and has been taking Augmentin. Labs Ordered: CBC, CMP, lactic acid, lipase, UA, COVID/flu/RSV Imaging Ordered: CT abdomen pelvis with contrast Medications Ordered: 1 L normal saline IV bolus, Zofran 4 mg IV, Dilaudid 0.5 mg IV, Dilaudid 1 mg IV, ceftriaxone 1 g IV Results: Patient's CT scan indicates no acute abnormalities. Her urinalysis indicates patient still has a UTI. Patient's CBC indicates RBCs of 4.09, hemoglobin of 11.1, hematocrit of 34.2%. Her CMP is unremarkable except for an alk-phos of 137. Patient was negative for influenza, COVID, and RSV. Diagnosis: Urinary tract infection, IBS flare Patient Education/Shared MDM: Patient reports her top lift and automatic window repairer has told her to not take ibuprofen. Results of lab work and imaging shared with patient. She endorses improvement of symptoms following pain medication administration. Pt was given a dose of Ceftriaxone 1g IV here in the ER. Patient strongly advised to maintain hydration status upon discharge and follow-up with her PCP as soon as possible. She will be discharged home with no new prescriptions but advised to continue her Augmentin as prescribed by her PCP. Strict return precautions provided. Patient verbalized understanding and is in agreement with plan. Vital signs stable at time of discharge. All questions answered. Upon time of discharge, pt reports she is still having significant pain. She takes [place] at home so she will be given a dose here in the ER prior to discharge. Pt will also be given a dose of Bentyl. Differential Diagnosis Differential diagnosis: Likely abdominal pain, diverticulitis, gastroenteritis and other (urinary tract infection, IBS flare-up, colitis) Lab Data Attestation: I reviewed the patient's lab results. 06/15/25 17:54 06/15/25 17:54 Labs: Lab Results 06/15/25 06/15/25 06/15/25 Range/Units 17:54 18:11 19:37 WBC 7.8 (4.5-10.0) K/mm3 RBC 4.09 L (4.2-5.4) M/mm3 Hgb 11.1 L (12.0-15.0) g/dL Hct 34.2 L (37.0-47.0) % MCV 83.6 (80-100) fl MCH 27.1 (26-34) pg MCHC 32.5 (32-36) g/dl RDW 13.3 (11.5-14.5) % Plt Count 255 (150-375) k/mm3 MPV 9.7 (7.4-10.4) fl Immature Gran % (Auto) 1.0 H (0-0.5) % Neut % (Auto) 60.0 (45.5-73.1) % Lymph % (Auto) 26.4 (18.3-44.2) % Mayes % (Auto) 9.0 H (2.6-8.5) % Eos % (Auto) 2.7 (0-4.4) % Baso % (Auto) 0.9 (0.2-1.2) % Lymph # (Auto) 2.05 (0.9-3.2) K/mm3 Mayes # (Auto) 0.7 H (0.1-0.6) K/mm3 Eos # (Auto) 0.2 (0-0.3) K/mm3 Baso # (Auto) 0.1 (0.0-0.1) K/mm3 Abs Immat Gran (auto) 0.08 H (0.00-0.031) K/mm3 Absolute Neuts (auto) 4.7 (1.3-6.7) K/mm3 Absolute Nucleated RBC 0.000 (0.0-0.012) K/mm3 Nucleated RBC % 0.0 (0.0-0.2) % Sodium 138 (137-145) mmol/L Potassium 3.7 (3.4-5.0) mmol/L Chloride 107 (98-107) mmol/L Carbon Dioxide 24 (22-30) mmol/L Anion Gap 7 (4-12) mmol/L BUN 12 (7-17) mg/dL Creatinine 0.76 (0.7-1.0) mg/dL Estim Creat Clear Calc 101 ml/min Estimated GFR > 60 (59 - ) Glucose 109 (65-110) mg/dL Calcium 9.1 (8.4-10.2) mg/dL Total Bilirubin 1.2 (0.2-1.3) mg/dL AST 35 (14-36) U/L ALT 23 (6-35) U/L Alkaline Phosphatase 137 H (38-126) U/L Total Protein 7.4 (6.3-8.2) g/dL Albumin 3.9 (3.5-5.1) g/dL Lipase 66 (23-300) U/L Urine Color Dark yellow (Yellow) Urine Appearance Cloudy H (Clear) Urine pH 7.0 (5.0-9.0) Ur Specific [place] 1.012 (1.001-1.035) Urine Protein Negative (Negative) mg/dL Urine Glucose (UA) Negative (Negative) mg/dL Urine Ketones Negative (Negative) mg/dL Ur Blood (Man) Negative (Negative) Urine Nitrate Positive H (Negative) Urine Bilirubin Negative (Negative) Urine Urobilinogen 1.0 (<2.0) mg/dL Add Ur Microanalysis Reviewed Leukocyte Esterase Rfl 2+ H (Negative) NENA/UL Urine RBC 0-2 (0-2) /hpf Urine WBC 0-5 (0-3) /hpf Ur Squamous Epith Cells Moderate (Few) /hpf Urine Bacteria 1+ H /hpf Urine Casts 3-5 Influenza A (RT-PCR) Negative (Negative) Influenza B (RT-PCR) Negative (Negative) RSV (RT-PCR) Negative (Negative) SARS-CoV-2 RNA (RT-PCR) Negative (Negative) Imaging Data Attestation: I personally reviewed and interpreted this imaging study as follows: Radiologist's impression: ITS Impressions Abdomen/Pelvis CT 06/15/25 19:05 IMPRESSION: 1. No acute intra-abdominal/pelvic process. Discharge Plan Discharge Clinical Impression: Urinary tract infection, Abdominal pain Patient Disposition: Home Condition: Stable Instructions: Antibiotic Form, Urinary Tract Infection in Women (ED) Additional Instructions: Please return to the ER with any worsening symptoms. Follow-up with primary care provider as soon as possible. Take all medications as prescribed, including regularly scheduled medications. Complete your full dose of antibiotics. Patient Language: Japanese Prescriptions: No Action hydrocodone-acetaminophen 5-325 mg tablet 1 tablet PO Q6H PRN (Reason: pain) Qty: 10 0RF amlodipine 5 mg tablet 5 mg PO DAILY@0800 Patient Comments: had been on hold since february atorvastatin 80 mg tablet 80 mg PO DAILY@0800 Patient Comments: has been on hold since apr 20 carvedilol 12.5 mg tablet 12.5 mg PO BID (DME) Dexcom G7 Sensor Device MISCELLANEOUS Patient Comments: changed 05/12/2025 dicyclomine 20 mg tablet 20 mg PO BID Aimovig Autoinjector 70 mg/mL auto-injector 70 mg SUBCUT MONTHLY Patient Comments: took 04/23/2025 not do till 05/24/2025 hydroxyzine HCl 25 mg tablet 25 mg PO HS insulin lispro [Humalog U-100 Insulin] 100 unit/mL solution 1 sliding scale dose continuous subcutaneous infusion PRN PRN (Reason: hyperglycemia) Rx Instructions: 1 sliding scale dose via continuous subcutaneous infusion PRN; (DME) Omnipod 5 G6-G7 Pods (Gen 5) Cartridge SUBCUT methocarbamol 500 mg tablet 500 mg PO HS pantoprazole 40 mg tablet,delayed release (DR/EC) 40 mg PO HS ropinirole 0.25 mg tablet 0.75 mg PO HS PRN (Reason: restless leg(s)) venlafaxine 150 mg capsule,extended release 24hr 150 mg PO QPM Patient Comments: Dose changed on thursday aspirin [Children's Aspirin] 81 mg Tablet,Chewable 81 mg PO DAILY@0800 Qty: 30 0RF isosorbide mononitrate 60 mg Tablet Extended Release 24 Hr 60 mg PO QAM Qty: 30 1RF Follow-up/Referrals: Breezy,Brissa Zamora MD [Primary Care Provider, Unknown] Time of Disposition: 21:02
[2025-06-15 18:28] LABS: Add Urine Microscopic? YES; Appearance Urine Cloudy (Clear); Glucose Urine UA Negative (Negative); Leukocyte Esterase Ur 2+ LEU/UL (Negative); Need Manual Microscopic Reviewed; Nitrate Urine Positive (Negative); Specific Grav Ur 1.012 (1.001-1.035)
[2025-06-15] MEDS: SODIUM CHLORIDE 0.9% IV 1,000 ML 999 ML IV CONT (18:41)
[2025-06-15] MEDS: HYDROmorphone HCL INJ (*CRX) 1 MG/ML SYR 0.5 MG IV PUSH (18:41)
[2025-06-15] MEDS: ONDANSETRON INJ 4 MG/2 ML VIAL IV PUSH (18:41)
--- OUTSIDE RECORDS SUMMARY | 2025-06-15 18:53 | XMS_ITS | Clinical Summary ---
Author Organization [facility] Address [address] [place] [address] Care Team Providers Care Structural Steel Erection Supervisor Name Role Phone Adele Lagos MD Primary Care Provider [phone] Allergies Active Allergy Reactions Criticality Noted Date [...] Other. Active Insulin Disposable Pump (Omnipod 5 [id number] Pods Gen 5) Misc change pod every [...] Sex Assigned at Female 08/12/2024 6:07 PM STEREOPLOTTER OPERATOR Legal Sex Female 4:01 AM STEREOPLOTTER OPERATOR Gender Identity Female 08/12/2024 6:07 PM STEREOPLOTTER OPERATOR Sexual Orientation Not on file Last Filed [...] ID:[id number] Group ID:[id number] Type:Not on file Address: [address] [id number] MEDICARE MEDICARE C [employer] [place] Care Teams Structural Steel Erection Supervisor Relationship Specialty Start Date End Date Adele Lagos MD [address] [place] [address] PCP - General Family Medicine 07/15/20
--- OUTSIDE RECORDS SUMMARY | 2025-06-15 18:53 | XMS_ITS | Clinical Summary ---
Author Organization [facility] Address [address] [place] [address] Care Team Providers Care Ibm Websphere Commerce Consultant Name Role Phone Prem Bearden MD Unavailable Ce Villalobos MD Unavailable Brissa Tijerina MD Primary Care Provider + Allergies Active Allergy Reactions Criticality Noted Date Comments Clarithromycin Vomiting,Nausea Only High 01/20/2007 Prochlorperazine Anxiety,Unknown Low 03/16/2018 Diphenhydramine Anxiety,Rash High 03/16/2018 Meperidine Hcl Unknown 03/01/2009 Metoclopramide Other (see comment) 10/31/2022 with IM/IV injection-anxiety inducing Strawberries Shortness of Breath High 07/19/2024 Sumatriptan Itching,Unknown 01/20/2007 Other reaction(s): N/A * Medications amLODIPine 5 MG tablet Take 1 tablet (5 mg total) by mouth nightly at bedtime. 12/19/2020 Active atorvastatin 40 MG tablet Take 2 tablets (80 mg total) by mouth nightly at bedtime. 12/19/2020 Active doxepin (SINEQUAN) 50 MG capsule Take 75 mg by mouth nightly at bedtime. Active pantoprazole [...] daily before meals. In insulin pump 01/29/2024 Active HYDROcodone-angel taminophen (NORCO) 5-325 MG tabletIndicatio ns:Acute Pain < 7 Day Supply Take 1-2 tablets by mouth every 6 (six) hours as needed. Indications: Acute Pain < 7 Day Supply 16 tablet 05/10/2024 Active ketorolac (TORADOL) 10 MG tablet Take 1 tablet (10 mg total) by mouth every 6 (six) hours as needed for Pain. Active albuterol sulfate HFA 108 (90 Base) MCG/ACT inhaler Inhale 2 puffs into the lungs every 6 (six) hours as needed for Wheezing. Active carvedilol (COREG) 6.25 MG tablet Take 1 tablet (6.25 mg total) by mouth 2 (two) times daily. Active Active Problems Problem Noted Date Diagnosed Date Unstable angina ([facility]) 05/07/2023 Chest pain 04/18/2023 ASCUS with positive high risk HPV cervical 11/06 Overview (11/06/2022): 10/31/2022 - ASCUS with positive high risk HPV. Second degree uterine prolapse 10/31/2022 ASCUS of cervix with negative high risk HPV 05/2021 Overview (03/22/2021): 03/15/2021 Migraine 02/14/2021 HTN (hypertension) 02/14/2021 Diabetes mellitus type 2, controlled ([facility]) 02/14/2021 Resolved Problems Problem Noted Date Diagnosed Date Resolved Date Cervical high risk human pap illomavirus (HPV) DNA test positive 02/14/2021 02/23/2023 Overview (03/15/2021): Pap with positive high risk HPV 05/02/2019 and 11/17/2019. Encounters Date Type Department Care Team Description 06/13/2025 7:42 PM CDT - 06/13/2025 10:23 PM CDT Emergency [facility] Emergency Services [address] [place] [address] Edwardo Ken MD Back Pain Discharge Disposition: Home or Self Care (Routine Discharge) 06/13/2025 Travel 05/05/2025 4:40 PM CDT - 05/05/2025 6:34 PM CDT Emergency [facility] Emergency [address] [place] [address] Marco A Gómez, MANAGER CHINESE Abdominal Pain Discharge Disposition: Home or Self Care (Routine Discharge) 05/05/2025 Travel 03/17/2025 12:09 AM CDT - 03/17/2025 12:57 AM CDT Emergency [facility] Emergency Services [address] [place] [address] Shoulder Pain Discharge Disposition: Home or Self Care (Routine Discharge) 03/17/2025 Travel from Last 3 Months Family History [...] Recorded Patient Health Questionnaire-2 Score 0 10/31/2022 [facility] - Occupational Stress Questionnaire Answer Date Recorded [...] place to sleep or slept in a alf (including now)? Yes 05/08/2023 Comments No Sex and Gender Information Value Date Recorded Sex Assigned at Female 09/30/2024 10:51 PM STICKER ON Legal Sex Female 7:02 PM CDT Gender [...] Mass Index 42.6 06/13/2025 6:35 PM CDT Plan of Treatment Health Maintenance [...] 04/18/2024 04/18/2023, 04/23/2010 COVID-19 Vaccine ( season) 2025 09/13/2021, 12/14/2020, 11/16/2020 Influenza Adult (#1) 2025 05/31/2024, 06/16/2021, 09/29/2020, Additional history exists Cervical Cancer Screening Pap Smear (Age 30 [...] Procedure Name Priority Date/Time Associated Diagnosis Comments LIPASE STAT 05/05/2025 4:44 PM CDT COMPREHENSIVE METABOLIC PANEL STAT 05/05/2025 4:44 PM CDT CBC W/DIFF AUTOMATED STAT 05/05/2025 4:44 PM CDT LIPID PANEL STAT 04/18/2023 6:36 AM CDT HEMOGLOBIN, GLYCOSYLATED STAT 04/17/2023 4:24 PM CDT HUMAN PAPILLOMAVIRUS, HIGH-RISK TYPES Routine 10/31/2022 12:00 PM STICKER ON CYTOPATH CERV/VAG THIN LAYER Routine 10/31/2022 9:01 AM STICKER ON Encounter for gynecological examination with Papanicolaou smear of cervix MAMMOGRAM GENERIC (SCAN ORDER) 11/17/2019 from Last 3 Months or Most Recently Relevant to Health Maintenance Results * (ABNORMAL) COMPREHENSIVE METABOLIC PANEL (05/05/2025 4:44 PM CDT) SODIUM S/P/B 140 136 - 145 MMOL/L 05/05/2025 5:22 PM CDT [facility] POTASSIUM S/P/B 4.0 3.5 - 5.1 MMOL/L 05/05/2025 5:22 PM CDT [facility] CHLORIDE S/P/B 110 97 - 115 MMOL/L 05/05/2025 5:22 PM T [facility] CO2 26.3 21.0 - 32.0 MMOL/L 05/05/2025 5:22 PM CDT [facility] GLUCOSE 132(H) 74 - 106 MG/DL 05/05/2025 5:22 PM CDT [facility] BUN 16 7 - 18 MG/DL 05/05/2025 5:22 PM T [facility] CREATININE S/P/B 1.21(H) 0.55 - 1.02 MG/DL 05/05/2025 5:22 PM CDT [facility] CALCIUM S/P/B 9.8 8.5 - 10.1 MG/DL 05/05/2025 5:22 PM CDT [facility] BILIRUBIN TOTAL S/P/B 0.8 0.2 - 1.0 MG/DL 05/05/2025 5:22 PM CDT [facility] ALKALINE PHOSPHATASE S/P/B 155(H) 41 - 108 U/L 05/05/2025 5:22 PM CDT [facility] AST 49(H) 15 - 37 U/L 05/05/2025 5:22 PM CDT [facility] ALT 45 13 - 56 U/L 05/05/2025 5:22 PM CDT [facility] TOTAL PROTEIN S/P/B 7.7 6.4 - 8.2 G/DL 05/05/2025 5:22 PM CDT [facility] ALBUMIN S/P/B 3.3(L) 3.4 - 5.0 G/DL 05/05/2025 5:22 PM CDT [facility] ANION GAP 3.7 2.0 - 10.0 MMOL/L 05/05/2025 5:22 PM CDT [facility] OSMOLALITY (CALC) 293 MOSM/KG 025 5:22 PM CDT [facility] Comment:REFERENCE RANGE NOT ESTABLISHED GFR ESTIMATE 53(L) >90 ML/MIN/1. 73 M2 05/05/2025 5:22 PM CDT [facility] GFR NOTES GFR REFERENCE S: 05/05/2025 5:22 PM CDT [facility] Comment: THE ESTIMATED GFR IS CALCULATED USING THE 2020 CKD-EPI EQUATION. THE FOLLOWING CATEGORIES FOR GRADING RENAL FUNCTION ARE RECOMMENDED BY THE INTERNATIONAL SOCIETY OF NEPHROLOGY (KDIGO 2012 CLINICAL PRACTICE GUIDELINE). G1,NORMAL OR HIGH: >89 ml/min/1.73 m2 G2,MILDLY DECREASED: 60-89 ml/min/1.73 m2 G3A,MILDLY TO MODERATELY DECREASED: 45-59 ml/min/1.73 m2 G3B,MODERATELY TO SEVERELY DECREASED: 30-44 ml/min/1.73 m2 G4,SEVERELY DECREASED: 15-29 ml/min/1.73 m2 G5,KIDNEY FAILURE: <15 ml/min/1.73 m2 05/05/2025 4:44 PM CDT Jaylin Rajan NP LABORATORY Final Result [facility] [address] [place] [address], [phone] * (ABNORMAL) CBC W/DIFF AUTOMATED (05/05/2025 4:44 PM CDT) WBC 6.77 4.00 - 10.80 x10'3/uL 05/05/2025 4:55 PM CDT [facility] RBC 4.21 4.10 - 5.40 x10'6/uL 05/05/2025 4:55 PM CDT [facility] HGB 11.4(L) 12.0 - 16.0 G/DL 05/05/2025 4:55 PM CDT [facility] HCT 36.0 36.0 - 47.0 % 05/05/2025 4:55 PM CDT [facility] MCV 85.5 78.0 - 100.0 FL 05/05/2025 4:55 PM CDT [facility] MCH 27.1 27.0 - 31.0 PG 05/05/2025 4:55 PM CDT [facility] MCHC 31.7(L) 33.0 - 36.0 G/DL 05/05/2025 4:55 PM CDT [facility] RDW 14.0 11.5 - 14.5 % 05/05/2025 4:55 PM CDT [facility] PLT 238 150 - 350 x10'3/uL 05/05/2025 4:55 PM CDT [facility] MPV 9.8 7.4 - 10.4 FL 05/05/2025 4:55 PM CDT [facility] DIFFERENTIAL TYPE AUTOMATED DIFFERENTIAL 05/05/2025 4:55 PM CDT [facility] SEG NEUTROPHILS 60.1 % 4:55 PM CDT [facility] LYMPHOCYTES 26.1 % 05/05/2025 4:55 PM CDT [facility] MONOCYTES 8.0 % 05/05/2025 4:55 PM CDT [facility] EOSINOPHILS 4.3 % 05/05/2025 4:55 PM CDT [facility] BASOPHILS 1.2 % 05/05/2025 4:55 PM CDT [facility] IMMATURE GRANS % 0.3 % 05/05/20 4:55 PM CDT [facility] ABS. NEUTROPHILS 4.07 1.60 - 8.30 x10'3/uL 05/05/2025 4:55 PM CDT [facility] ABS. LYMPHOCYTES 1.77 0.80 - 4.70 x10'3/uL 05/05/2025 4:55 PM CDT [facility] ABS. MONOCYTES 0.54 0.00 - 1.50 x10'3/uL 05/05/2025 4:55 PM CDT [facility] ABS. EOSINOPHILS 0.29 0.00 - 0.40 x10'3/uL 05/05/2025 4:55 PM CDT [facility] ABS. BASOPHILS 0.08 0.00 - 0.20 x10'3/uL 05/05/2025 4:55 PM CDT [facility] ABS. IMMATURE GRANULOCYTES 0.02 0.00 - 0.03 x10'3/uL 05/05/2025 4:55 PM CDT [facility] ABS. NUCLEATED RBC'S 0.00 0.00 - 0.01 x10'3/uL 05/05/2025 4:55 PM CDT [facility] NRBC % 0.0 % 05/05/2025 4:55 PM CDT [facility] 05/05/2025 4:44 PM CDT us Jaylin Rajan NP LABORATORY Final Result Performing Organization Address [facility]/ZIP Co de Phone Number [facility] [address] [place] [address], [phone] * LIPASE (05/05/2025 4:44 PM CDT) LIPASE 25 13 - 75 UNITS/L 05/05/2025 5:22 PM CDT [facility] 05/05/2025 4:44 PM CDT us Jaylin Rajan NP LABORATORY Final Result Performing Organization Address [facility] Co de Phone Number [facility] [address] [place] [address], [phone] * (ABNORMAL) LIPID PANEL (04/18/2023 6:36 AM CDT) CHOLESTEROL 188 MG/DL 04/18/2023 7:32 AM CDT [facility] Comment:DESIRABLE: <200 TRIGLYCERIDES 219 MG/DL 04/18/2023 7:32 AM CDT [facility] Comment:200-499 HIGH HDL 35(L) >49 MG/DL 04/18/2023 7:32 AM CDT [facility] LDL (CALCULATED) 109 MG/DL 04/18/20 7:32 AM CDT [facility] Comment:100-129 NEAR OR ABOV E OPTIMAL VLDL CALCULATION 44 MG/DL 04/18/20 7:32 AM CDT [facility] Comment:REFERENCE RANGE NOT ESTABLISHED CHOL/HDL RATIO 5.4 04/18/2023 7:32 AM CDT [facility] Comment:REFERENCE RANGE NOT ESTABLISHED LDL/HDL 3.1 04/18/2023 7:32 AM CDT [facility] Comment:REFERENCE RANGE NOT ESTABLISHED NON HDL CHOLESTEROL 153 MG/DL 04/18/2023 7:32 AM CDT [facility] Comment:REFERENCE RANGE NOT ESTABLISHED 04/18/2023 6:36 AM CDT us [facility] TREJO LABORATORY Final Res ult [facility] [address] [place] [address], [phone] * (ABNORMAL) HEMOGLOBIN, GLYCOSYLATED (04/17/2023 4:24 PM CDT) HGB A1C 7.2(H) <5.7 % 04/17/2023 5:28 PM CDT [facility] ESTIMATED AVG GLUCOSE 160(H) 74 - 114 MG/DL 04/17/2023 5:28 PM CDT [facility] 04/17/2023 4:24 PM CDT Yoshi Edwards PA-C LABORATORY Final Result Performing Organization Address City/[facility]/ZIP Co de Phone Number [facility] [address] [place] [address], [phone] * (ABNORMAL) HUMAN PAPILLOMAVIRUS, HIGH-RISK TYPES (10/31/2022 12:00 PM STICKER ON) SPEC DESCRIPTION CERVICAL/ ENDOCERVI SHWETA 11/03/2022 9:26 AM STICKER ON [facility] HPV DNA HIGH RISK POSITIVE( A) NEGATIVE 11/03/2022 5:31 PM STICKER ON [facility] Comment:SEE CYTOLOGY REPORT 10/31/2022 12:0 0 PM STICKER ON Prem Bearden MD PATHOLOGY/CYTOLOGY ORDERABLES Fi nal Result Performing Organization Address [facility]/ZIP Co de Phone Number [facility] [address] [place] [address], * Cytopath Cerv/Vag Thin Layer (10/31/2022 9:01 AM STICKER ON) THIN PREP PAP [facility] [address] [place] [address] Department of Pathology Pathology Report CERVICAL/VAGINAL PAP SMEAR REPORT Name: LETI WHITE Age: 1 1970 (Age: 52) [place] [facility] [place]: F Collected Date: 10/31/2022 [facility] #: [id number] Date Received: 11/03/2022 Date Reported: 11/05/2022 Provider: [...] 45,51,52,56,58,59, 66, and 68. Electronically Signed Out CHRIS Alcantara, CT (ASCP) CLINICAL HISTORY Z01.419 SCREENING PAP TEST [...] is not effective in detecting cervical adenocarcinoma. [facility] 10/31/2022 9:01 AM STICKER ON 11/03/2022 9:01 AM STICKER ON Comment:CERVICAL/ENDOCERVICA L Prem Bearden MD PATHOLOGY/CYTOLOGY ORDERABLES Fi nal Result [facility] [address] [place] [address], * MAMMOGRAM GENERIC (11/17/2019) Anatomical Region Laterality Modality Other 11/17/2019 Narrative 11/17/2019 Ordered by an unspecified provider. us Documents Scanned SCANNING Final Result from Last 3 Months or Most Recently Relevant to Health Maintenance Insurance MEDICAID [facility] Advance Directives * Full Code (Latest Code Status on File) Date Activated Date Inactivated Comments 05/07/2023 9:34 PM 08/04/2023 5:02 PM * Full Code Date Activated Date Inactivated Comments 04/18/2023 1:16 AM 04/22/2023 2:48 PM Care Teams Ibm Websphere Commerce Consultant Relationship Specialty Start Date End Date Brissa Tijerina MD [address] [place] [id number] PCP - General FAMILY PRACTICE 11/03/24 Prem Bearden MD Cable 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
--- OUTSIDE RECORDS SUMMARY | 2025-06-15 18:53 | XMS_ITS | Encounter Summary ---
Author Organization [facility] Address [address] [place] [address] Care Team Providers Care Iron Worker Name Role Phone Hero Bearden MD Unavailable Adele Lagos MD Primary Care Provider [phone] Ce Villalobos MD Unavailable Brissa Tijerina MD Primary Care Provider + Encounter Details Date Type Department Care Team (Late st Contact Info) Description 04/23/2023 Hospital Follow-up Call [facility] Cardiovascular Care Unit [address] [place] [address] Kalyn New RN Social History [...] Recorded Patient Health Questionnaire-2 Score 0 10/31/2022 [facility] ional [facility] - Occupational Stress [...] slept in a intermediate (including now)? Yes 04/18/2023 Comments No Sex and Gender Information Value Date Recorded Sex Assigned at Female 09/30/2024 10:51 PM METER READING CLERK Legal Sex Female 7:02 PM CDT Gender [...] on filedocumented in this encounter Care Teams Iron Worker Relationship Specialty Start Date End Date Adele Lagos MD [address] [place] [address] PCP - General INTERNAL MEDICINE 06/16/22 11/02/24 Brissa Tijerina MD [address] [place] [address] PCP - General FAMILY PRACTICE 11/03/24 Hero Bearden MD Shipping And Receiving Supervisor OBGYN 04/04/22 Ce Villalobos MD [address] [place] [address] [place] [employer] Window Tinter CARDIOVASCULAR DISEASE 07/18/22 documented as of this encounter
--- OUTSIDE RECORDS SUMMARY | 2025-06-15 18:53 | XMS_ITS | Clinical Summary ---
Author Organization [facility] Address [address] [place] [address] Phone Care Team Providers Care Director Of Cardiac Rehabilitation Name Role Phone Brissa Tijerina MD Primary [...] misc CHANGE SENSOR EVERY 10 DAYS PER SUPERVISOR CHANNEL PROCESS 02/23/20 25 Active dicyclomine (BENTYL) 20 MG [...] BEDTIME Active Insulin Disposable Pump (Omnipod 5 [id number] Pods Gen 5) misc change pod every [...] [facility] [address] [place] [phone] Rich Lorena 05/01/2025 Documentation Only [facility] [address] [place] [address] Rich Lorena 05/01/2025 Orders Only [facility] [address] [place] [phone] Lorena Villanueva 05/01/2025 Telephone [facility] [address] [place] [phone] Rich Lorena from Last 3 Months Immunizations [...] ID:Not on file Type:Not on file Address: [address] [facility] Medicare [place] [address] Care Teams Director Of Cardiac Rehabilitation Relationship Specialty Start Date End Date Brissa Tijerina MD [address] [place] [phone] PCP - General Family Medicine 04/17/25
--- OUTSIDE RECORDS SUMMARY | 2025-06-15 18:53 | XMS_ITS | Clinical Summary ---
Author Organization [facility] Address [address] [place] [address] Phone Care Team Providers Care Broadcast Director Operations Name Role Phone Unavailable Primary Care Provider Unavailabl e Social History Tobacco Use Types Packs/Day Years Used Date Smoking Tobacco: Never Assessed Comments Unknown Sex and Gender Information Value Date Recorded Sex Assigned at Not on file Legal Sex Female 6:40 PM LIQUEFACTION SUPERVISOR Gender Identity Not on file Sexual Orientation [...]
--- OUTSIDE RECORDS SUMMARY | 2025-06-15 18:53 | XMS_ITS | Encounter Summary ---
Author Organization [facility] Address [address] [place] [address] Care Team Providers Care Linen Worker Name Role Phone Hero Bearden MD Unavailable Ce Villalobos MD Unavailable Brissa Tijerina MD Primary Care Provider + Reason for Visit * Reason Onset Date Comments Preprocedure Call 01/13/2025 Graduate Student spoke jojo Landeros about needing H&P within 30 days of MRI with anesthesia appt on 01/20/25. Leti to call PCP to schedule. Encounter Details Date Type Department Care Team (Latest Contact Info) Description 01/13/2025 Pre-Procedure Call [facility] Interventional Radiology [address] [place] [address] Stella Castillo, RN Preprocedure Call (Graduate Student spoke with Leti about needing H&P within 30 days of MRI with anesthesia appt on 01/20/25. Leti to call PCP to schedule. ) Social History Tobacco Use Types Packs/Day Years [...] Recorded Patient Health Questionnaire-2 Score 0 10/31/2022 [facility] of Occupat ional Health - Occupational Stress [...] place to sleep or slept in a group home (including now)? Yes 05/08/2023 Comments No Sex and Gender Information Value Date Recorded Sex Assigned at Female 09/30/2024 10:51 PM GAMING DEALER Legal Sex Female 7:02 PM CDT Gender Identity Not on file Sexual Orientation Not on file documented as of this encounter Functional Status * Are you deaf or do you have serious difficulty hearing Answer Date of Assessment Author Status No 05/07/2023 11:00 PM CDT Pauline Lora R, R N Active * Are you blind or do you have serious difficulty seeing, even when wearing glasses? Answer Date of Assessment Author Status No 05/07/2023 11:00 PM CDT Pauline Lora R, R N Active * Do you have serious difficulty walking or climbing stairs? Answer Date of Assessment Author Status No 05/07/2023 11:00 PM CDT Pauline Lora R, R N Active * Do you have difficulty dressing or bathing? Answer Date of Assessment Author Status No 05/07/2023 11:00 PM CDT Pauline Lora R, R N Active * Because of a physical, mental, or emotional condition, do you have difficulty doing errands alone such as visiting a doctor's office or shopping? Answer Date of Assessment Author Status No 05/07/2023 11:00 PM CDT Pauline Lora R, R N Active documented as of this encounter Mental Status * Because of a physical, mental, or emotional condition, do you have serious difficulty concentrating, remembering, or making decisions? Answer Entry Date Author Status No 05/07/2023 11:00 PM CDT Pauline Lora R, R N Active documented in this encounter Plan of Treatment Not on file documented as of this encounter Visit Diagnoses Not on filedocumented in this encounter Care Teams Linen Worker Relationship Specialty Start Date End Date Brissa Tijerina MD [address] [place] [address] PCP - General FAMILY PRACTICE 11/03/24 Hero Bearden MD Environmental Health Safety Manager OBGYN 04/04/22 Ce Villalobos MD [address] [place] [address] [place] Pantographer CARDIOVASCULAR DISEASE 07/18/22 documented as of this encounter
--- OUTSIDE RECORDS SUMMARY | 2025-06-15 18:53 | XMS_ITS | Encounter Summary ---
Author Organization [facility] Address [address] [place] [address] Care Team Providers Care Machine Accountant Name Role Phone Yaneth Lagos MD Primary Care Provider [phone] Yaneth Lagos MD Primary Care Provider [phone] Hero Bearden MD Unavailable Adele Lagos MD Primary Care Provider [phone] Ce Villalobos MD Unavailable Brissa Tijerina MD Primary Care Provider + Encounter Details Date Type Department Care Team (Late st Contact Info) Description 06/24/2017 Abstract [facility] [address] [place] [address] , Dot Springer MD Social History Tobacco Use Types Packs/Day Years Used Date Smoking Tobacco: Never Assessed Comments Unknown Sex and Gender Information Value Date Recorded Sex Assigned at Female 09/30/2024 10:51 PM FIRE POT OPERATOR Legal Sex Female 7:02 PM CDT Gender Identity Not on file Sexual Orientation Not on file documented as of this encounter Plan of Treatment Not on file documented as of this encounter Visit Diagnoses Not on filedocumented in this encounter Care Teams Machine Accountant Relationship Specialty Start Date End Date Yaneth Lagos MD [facility] [address] [facility] [address] [place] [phone] PCP - General 03/22/17 04/07/18 Yaneth Lagos MD [address] [facility] [address] [place] [address] PCP - General FAMILY PRACTICE 09/17/19 06/15/22 Adele Lagos MD [address] [place] [address] PCP - General INTERNAL MEDICINE 06/16/22 11/02/24 Brissa Tijerina MD [address] [place] [address] PCP - General FAMILY PRACTICE 11/03/24 Hero Bearden MD [address] [phone] Cat Scan Tech OBGYN 04/04/22 Ce Villalobos MD [address] [place] [address] Oklee Muleser CARDIOVASCULAR DISEASE 07/18/22 documented as of this encounter
--- OUTSIDE RECORDS SUMMARY | 2025-06-15 18:53 | XMS_ITS | Encounter Summary ---
Author Organization [facility] Address [address] [place] [address] Care Team Providers Care Drafter Geophysical Name Role Phone Hero Bearden MD Unavailable Ce Villalobos MD Unavailable Brissa Tijerina MD Primary Care Provider + Reason for Visit * Reason Onset Date Comments Preprocedure Call 01/18/2025 Spoke with pat ient-she has an appointment on 01/[address] Christy office for H&P. Encounter Details Date Type Department Care Team (Late st Contact Info) Description 01/18/2025 Telephone [facility] Interventional Radiology [address] [place] [address] Kaylene Lundberg, RN Preprocedure Call (Spoke with patient-she has an appointment on 01/[address] Christy office for H&P. ) Social History Tobacco Use Types Packs/Day [...] Recorded Patient Health Questionnaire-2 Score 0 10/31/2022 [facility] - Occupational Stress Questionnaire Answer Date [...] place to sleep or slept in a mcc (including now)? Yes 05/08/2023 Comments No Sex and Gender Information Value Date Recorded Sex Assigned at Female 09/30/2024 10:51 PM PAINTER TOUCH UP Legal Sex Female 7:02 PM CDT Gender [...] PM CDT Pauline Lora R N Active * Calculated C-SSRS Risk Score (Lifetime/Recent) Answer Date of Assessment Author Status No Risk Indicated 01/20/2025 8:55 PM JACQUET Georgina Baez RN Active * [place] Suicide Severity Rating Scale (Screener/Recent Self-Report) Question Answer Date of Assessment Author Status 1. Wish to be (Past 1 Month) No 01/20/2025 8:55 PM Georgina Pozo RN Active 2. Non-Specific Active Suicidal Thoughts (Past 1 Month) No 01/20/2025 8:55 PM Georgina Pozo RN Active 6. Suicidal Behavior (Lifetime) No 01/20/2025 8:55 PM Georgina Pozo RN Active documented as of this encounter Mental [...] on filedocumented in this encounter Care Teams Drafter Geophysical Relationship Specialty Start Date End Date Brissa Tijerina MD [address] [place] [address] PCP - General FAMILY PRACTICE 11/03/24 Hero Bearden MD Lab Aide OBGYN 04/04/22 Ce Villalobos MD [address] [place] [address] Adin Evaluation Analyst CARDIOVASCULAR DISEASE 07/18/22 documented as of this encounter
--- OUTSIDE RECORDS SUMMARY | 2025-06-15 18:53 | XMS_ITS | Encounter Summary ---
Author Organization [facility] Address [address] [place] [address] Care Team Providers Care Patient Flow Coordinator Name Role Phone Yaneth Lagos MD Primary Care Provider [phone] Yaneth Lagos MD Primary Care Provider [phone] Hero Bearden MD Unavailable Adele Lagos MD Primary Care Provider [phone] Ce Villalobos MD Unavailable Brissa Tijerina MD Primary Care Provider + Encounter Details Date Type Department Care Team (Late st Contact Info) Description 11/28/2017 Abstract [facility] CONVERSION [address] [place] [address] , Generic MD [place] Social History Tobacco Use Types Packs/Day Years Used Date Smoking Tobacco: Never Assessed Comments Unknown Sex and Gender Information Value Date Recorded Sex Assigned at Female 09/30/2024 10:51 PM SURGICAL SALES REPRESENTATIVE Legal Sex Female 7:02 PM CDT Gender Identity Not on file Sexual Orientation Not on file documented as of this encounter Plan of Treatment Not on file documented as of this encounter Visit Diagnoses Not on filedocumented in this encounter Care Teams Patient Flow Coordinator Relationship Specialty Start Date End Date Yaneth Lagos MD [address] [phone] PCP - General 03/22/17 04/07/18 Yaneth Lagos MD [address] [facility] [address] [place] [address] PCP - General FAMILY PRACTICE 09/17/19 06/15/22 Adele Lagos MD [address] [place] [address] PCP - General INTERNAL MEDICINE 06/16/22 11/02/24 Brissa Tijerina MD [address] [place] [address] PCP - General FAMILY PRACTICE 11/03/24 Hero Bearden MD [address] [facility] [address] [place] [phone] Heater Engineer Helper OBGYN 04/04/22 Ce Villalobos MD [address] [place] [address] [place] Case Worker CARDIOVASCULAR DISEASE 07/18/22 documented as of this encounter
--- OUTSIDE RECORDS SUMMARY | 2025-06-15 18:53 | XMS_ITS | Encounter Summary ---
Author Organization [facility] Address [address] [place] [address] Care Team Providers Care Paper Bag Making Machinist Name Role Phone Yaneth Lagos MD Primary Care Provider [phone] Hero Bearden MD Unavailable Adele Lagos MD Primary Care Provider [phone] Ce Villalobos MD Unavailable Brissa Tijerina MD Primary Care Provider + Encounter Details Date Type Department Care Team (Late st Contact Info) Description 02/19/2019 Abstract [facility] CONVERSION [address] [place] [address] , Generic Conversion, Social History Tobacco Use Types Packs/Day Years Used Date Smoking Tobacco: Never Smokeless Tobacco: Never Alcohol Use Standard Drinks/Week Comments No 0 (1 standard drink = 0.6 oz pur e alcohol) Comments Unknown Sex and Gender Information Value Date Recorded Sex Assigned at Female 09/30/2024 10:51 PM SENIOR ADMINISTRATIVE SUPPORT Legal Sex Female 7:02 PM CDT Gender Identity Not on file Sexual Orientation Not on file documented as of this encounter Plan of Treatment Not on file documented as of this encounter Visit Diagnoses Not on filedocumented in this encounter Care Teams Paper Bag Making Machinist Relationship Specialty Start Date End Date Yaneth Lagos MD [address] [place] [phone] PCP - General FAMILY PRACTICE 09/17/19 06/15/22 Adele Lagos MD [address] [place] [address] PCP - General INTERNAL MEDICINE 06/16/22 11/02/24 Brissa Tijerina MD [address] [place] [address] PCP - General FAMILY PRACTICE 11/03/24 Hero Bearden MD [address] [phone] Marketing Operations Specialist OBGYN 04/04/22 Ce Villalobos MD [address] [place] [address] [place] Pharmacology Professor CARDIOVASCULAR DISEASE 07/18/22 documented as of this encounter
--- OUTSIDE RECORDS SUMMARY | 2025-06-15 18:53 | XMS_ITS | Encounter Summary ---
Author Organization [facility] Address [address] [place] [address] Care Team Providers Care High Risk Ob Name Role Phone Hero Bearden MD Unavailable Ce Villalobos MD Unavailable Brissa Tijerina MD Primary Care Provider + Reason for Visit * Reason Onset Date Comments Preprocedure Call 01/16/2025 Vehicle Body Builder spoke w jessica Landeros and reiterated that we need an H&P within 30 days of 01/20/25 MRI with anesthesia appt. Leti to call PCP for appt. Vehicle Body Builder also reviewed anesthesia instructions: NPO after midnight, arrival time 0700, bring a spotter driver, and reviewed medications to hold. All questions answered and Leti verbalized understanding. Encounter Details Date Type Department Care Team (Latest Contact Info) Description 01/16/2025 Pre-Procedure Call [facility] Interventional Radiology [address] [place] [address] Stella Castillo, RN Preprocedure Call (Vehicle Body Builder spoke with Leti and reiterated that we need an H&P within 30 days of 01/20/25 MRI with anesthesia appt. Leti to call PCP for appt. Vehicle Body Builder also reviewed anesthesia instructions: NPO after midnight, arrival time 0700, bring a spotter driver, and reviewed medications to hold. All questions answered and Leti verbalized understanding.) Social History Tobacco Use Types Packs/Day Years [...] Recorded Patient Health Questionnaire-2 Score 0 10/31/2022 [facility] - Occupational Stress Questionnaire Answer Date [...] place to sleep or slept in a half-way (including now)? Yes 05/08/2023 Comments No Sex and Gender Information Value Date Recorded Sex Assigned at Female 09/30/2024 10:51 PM SPLUNK DASHBOARD DEVELOPER Legal Sex Female 7:02 PM CDT Gender [...] on filedocumented in this encounter Care Teams High Risk Ob Relationship Specialty Start Date End Date Brissa Tijerina MD [address] [place] [address] PCP - General FAMILY PRACTICE 11/03/24 Hero Bearden MD Radio Board Operator Announcer OBGYN 04/04/22 Ce Villalobos MD [address] [place] [address] [place] Customer Operations Representative CARDIOVASCULAR DISEASE 07/18/22 documented as of this encounter
--- OUTSIDE RECORDS SUMMARY | 2025-06-15 18:53 | XMS_ITS | Encounter Summary ---
Author Organization [facility] Address [address] [facility] [address] [place] [address] Phone Care Team Providers Care Groundman Name Role Phone Brissa Tijerina MD Primary Care Provider U shannon Encounter Details Date Type Department Care Team (Late st Contact Info) Description 05/01/2025 Documentation Only [facility] [address] [facility] [address] [place] [address] [place] [address] Social History Tobacco Use Types [...] (HCC) documented in this encounter Care Teams Groundman Relationship Specialty Start Date End Date Brissa Tijerina MD [address] [place] [phone] PCP - General Family Medicine 04/17/25 documented as of this encounter
[2025-06-15] MEDS: HYDROmorphone HCL INJ (*CRX) 1 MG/ML SYR IV PUSH (20:13)
[2025-06-15] MEDS: cefTRIAXone 1 GM in SODIUM CHLORIDE 0.9% IV 50 ML 100 ML IVPB (20:13)
[2025-06-15 20:20] LABS: Influenza A QL RT-PCR Negative (Negative); Influenza B QL RT-PCR Negative (Negative); RSV RNA, RT-PCR Negative (Negative); SARS-CoV-2 RNA PCR Negative (Negative)
[2025-06-15] MEDS: DICYCLOMINE HCL 10 MG CAPSULE 20 MG PO (21:34)
[2025-06-15] MEDS: HYDROcodone/acetaminophen (*CRX) 10-325 MG TABLET 1 TAB PO (21:34)
[2025-06-15 21:43] VITALS: BP 132/57; PULSE 73; RESP 20; O2SAT 98
== END 2025-06-15 21:44 | disposition home or self-care (01) ==
PROVIDERS: Emergency Provider Registered Nurse; PCP Family Medicine
DX: N39.0 Urinary tract infection, site not specified (principal); R10.11 Right upper quadrant pain; R10.31 Right lower quadrant pain; Z20.822 Contact with and (suspected) exposure to COVID-19; I10 Essential (primary) hypertension; E11.43 Type 2 diabetes mellitus with diabetic autonomic (poly)neuropathy; K31.84 Gastroparesis; E78.5 Hyperlipidemia, unspecified; J45.909 Unspecified asthma, uncomplicated; M79.7 Fibromyalgia; M19.90 Unspecified osteoarthritis, unspecified site; K58.9 Irritable bowel syndrome, unspecified; Z90.49 Acquired absence of other specified parts of digestive tract; Z79.899 Other long term (current) drug therapy; Z79.4 Long term (current) use of insulin; Z79.82 Long term (current) use of aspirin
CPT/HCPCS: 36415; 74177; 80053; 81001; 83690; 85025; 87637; 96361; 96365; 96375; 99284; A9270; J0696; J1171; J2405; J7030; Q9967

== ENCOUNTER 2025-07-04 17:26 | Emergency (ER) | payer MEDICARE, SELFPAY ==
[2025-07-04 17:33] VITALS: BP 155/70; PULSE 92; RESP 16; TEMP 36.4; O2SAT 97
[2025-07-04 18:47] VITALS: BP 160/62; PULSE 80; RESP 20; O2SAT 98
--- NOTE | 2025-07-04 19:24 | ED.ABDPAIN ---
HPI - Abdominal Pain General Chief Complaint: Abdominal Pain Stated Complaint: LRQ abd pain Time Seen by Provider: 07/04/25 18:56 Source: patient Mode of arrival: ambulatory Limitations: no limitations History of Present Illness HPI narrative: This is a 54-year-old female with history of diabetes, hypertension, gastroparesis who presents the ED for right lower quadrant abdominal pain. Patient states that for the past day or so she has been having right lower quadrant abdominal pain and right upper quadrant abdominal pain that is similar to her prior episodes of gastroparesis and IBS flares. She states that she took her dicyclomine home but this did not help. She states that she used to take Reglan for this but she began to have akathisia from that. She has had nausea but no vomiting. Related Data Home Medications ?Medication ?Instructions ?Recorded ?Confirmed ?Last Taken ?Type amlodipine 5 mg tablet 5 mg PO DAILY@0805/13/25 06/02/25 Unknown History atorvastatin 80 mg tablet 80 mg PO DAILY@79905/13/25 06/02/25 Unknown History blood-glucose sensor (Dexcom G7 05/13/25 05/13/25 Unknown History Sensor device) carvedilol 12.5 mg tablet 12.5 mg PO BID 05/13/25 06/02/25 05/13/25 09:30 History 12.5 mg dicyclomine 20 mg tablet 20 mg PO BID 05/13/25 06/02/25 05/13/25 09:30 History 20 mg erenumab-aooe 70 mg/mL 70 mg subcut MONTHLY 05/13/25 06/02/25 04/23/25 History subcutaneous auto-injector (Aimovig Autoinjector) hydroxyzine HCl 25 mg tablet 25 mg PO HS 05/13/25 06/02/25 05/12/25 22:30 History 50 mg insulin lispro 100 unit/mL 1 sliding scale dose continuous 05/13/25 06/02/25 05/13/25 18:50 History subcutaneous solution (Humalog subcutaneous infusion PRN PRN 6.3 U-100 Insulin) hyperglycemia insulin pump cart,auto,BT,G6/7 05/13/25 05/13/25 Unknown History (Omnipod 5 G6-G7 Pods (Gen 5) subcutaneous cartridge) methocarbamol 500 mg tablet 500 mg PO HS 05/13/25 06/02/25 05/12/25 22:30 History 500 mg pantoprazole 40 mg tablet,delayed 40 mg PO HS 05/13/25 06/02/25 05/12/25 22:30 History release 40 mg ropinirole 0.25 mg tablet 0.75 mg PO HS PRN restless leg(s) 05/13/25 06/02/25 05/08/25 22:00 History 0.75 mg venlafaxine 150 mg 150 mg PO QPM 05/13/25 06/02/25 05/12/25 22:30 History capsule,extended release 24 hr 150 mg Allergies Allergy/AdvReac Type Severity Reaction Status Date / Time prochlorperazine Allergy Intermediate Agitated Verified 07/04/25 17:35 clarithromycin Allergy Mild VIOLENTLY Verified 07/04/25 17:35 ILL WITH VOMITING sumatriptan Allergy Mild POUNDING Verified 07/04/25 17:35 HR, DIFFICULTY BREATHING metoclopramide AdvReac Intermediate Jittery Verified 07/04/25 17:35 diphenhydramine AdvReac Unknown GOES Verified 07/04/25 17:35 CRAZY Review of Systems Review of Systems: Gen.: Denies fevers or chills Eyes: Denies eye pain or visual change ENT: Denies congestion Respiratory: Denies shortness of breath or cough CV: Denies chest pain or palpitations GI: As per HPI denies burning, urgency, frequency or hematuria Musculoskeletal: Denies back pain or muscle pain Neuro: Denies numbness, tingling, weakness or focal weakness Skin: Denies rash Except as documented, all other systems reviewed and negative [facility] Past Medical History 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 Diabetes mellitus Hypertension Arthritis Asthma Surgical History Surgical History H/O cardiac catheterization Social History Social History Smoking status: Never smoker Smokeless tobacco user: snus Alcohol intake: never Lack of Transportation: No Lack of Food: Never True Current Housing: I Have Housing Concerned About Future Housing: No Difficulty Paying Gas/Electric Bills: No Difficulty Paying for Meds: No Currently Unemployed: No Education: Don't Know Difficulty w/ Childcare or Family Care: No Spiritual care concerns: No Exam Narrative: APPEARANCE: No acute distress, nontoxic, resting in bed EYES: EOMI HEENT: Normocephalic, atraumatic, OMM RESPIRATORY: No respiratory distress Clear to auscultation bilaterally with no rhonchi wheezing or rales. CARDIOVASCULAR: Regular rate and rhythm without murmurs rubs or gallops. ABDOMINAL: Soft, mild tenderness palpation to the right lower quadrant in the right upper quadrant without rebound or guarding. MUSCULOSKELETAl: Moves all extremities. No clubbing, cyanosis or edema. NEURO: Awake and alert. Following commands, speech normal, no focal deficits SKIN:: Warm, dry. No rashes lesions or abrasions PSYCHIATRIC: Normal affect/mood, Course Vital Signs Vital signs: Vital Signs Temperature 97.6 F 07/04/25 17:33 Pulse Rate 92 07/04/25 17:33 Respiratory Rate 16 07/04/25 17:33 Blood Pressure 155/70 H 07/04/25 17:33 Pulse Oximetry 97 07/04/25 17:33 Oxygen Delivery Room Air 07/04/25 17:33 Temperature 97.6 F 07/04/25 17:33 Pulse Rate 67 07/04/25 21:31 Respiratory Rate 19 07/04/25 21:31 Blood Pressure 154/71 H 07/04/25 21:31 Pulse Oximetry 99 07/04/25 21:31 Oxygen Delivery Room Air 07/04/25 18:47 MDM - Abdominal Pain MDM Narrative Medical decision making narrative: 54-year-old female presenting for right lower quadrant abdominal pain. On initial evaluation, patient was in mild distress, afebrile hemodynamics stable. She did have tenderness palpation of the right lower quadrant with mild tenderness to the right upper quadrant. This pain was reportedly similar to several episodes in ER as previously for which she had obtained multiple CT scans she requesting she not have a CT scan obtained at this time. On further discussion with patient, she had had improvement of her symptoms with extra dose of dicyclomine and Reglan. She was given a dose of Reglan, morphine with improvement versus nausea but not her pain. She is subsequently given an extra dose of Toradol and dicyclomine with mild improvement of her pain. She was requesting to leave this time. She was given a dose of Dilaudid so she can get home to take her [place]. She was advised to follow up with GI in the next week for reevaluation and likely colonoscopy. She was also advised to take her dicyclomine TID instead of BID. PAtient and family were agreeable to this plan. Given strict return precautions. Differential Diagnosis Differential diagnosis: Likely abdominal pain, constipation, diverticulitis, gastroenteritis and other (IBS, IBD) Medical Records Attestation: I reviewed the patient's medical records. Lab Data Attestation: I reviewed the patient's lab results. 07/04/25 19:37 07/04/25 19:37 Labs: Lab Results 07/04/25 Range/Units 19:37 WBC 6.4 (4.5-10.0) K/mm3 RBC 4.23 (4.2-5.4) M/mm3 Hgb 11.1 L (12.0-15.0) g/dL Hct 35.8 L (37.0-47.0) % MCV 84.6 (80-100) fl MCH 26.2 (26-34) pg MCHC 31.0 L (32-36) g/dl RDW 13.1 (11.5-14.5) % Plt Count 247 (150-375) k/mm3 MPV 9.2 (7.4-10.4) fl Immature Gran % (Auto) 0.3 (0-0.5) % Neut % (Auto) 57.6 (45.5-73.1) % Lymph % (Auto) 27.4 (18.3-44.2) % [place] % (Auto) 10.2 H (2.6-8.5) % Eos % (Auto) 3.4 (0-4.4) % Baso % (Auto) 1.1 (0.2-1.2) % Lymph # (Auto) 1.75 (0.9-3.2) K/mm3 [place] # (Auto) 0.7 H (0.1-0.6) K/mm3 Eos # (Auto) 0.2 (0-0.3) K/mm3 Baso # (Auto) 0.1 (0.0-0.1) K/mm3 Abs Immat Gran (auto) 0.02 (0.00-0.031) K/mm3 Absolute Neuts (auto) 3.7 (1.3-6.7) K/mm3 Absolute Nucleated RBC 0.000 (0.0-0.012) K/mm3 Nucleated RBC % 0.0 (0.0-0.2) % Sodium 134 L (137-145) mmol/L Potassium 4.2 (3.4-5.0) mmol/L Chloride 103 (98-107) mmol/L Carbon Dioxide 25 (22-30) mmol/L Anion Gap 6 (4-12) mmol/L BUN 16 (7-17) mg/dL Creatinine 0.86 (0.7-1.0) mg/dL Estim Creat Clear Calc Not Reportable Estimated GFR > 60 (59 - ) Glucose 199 H (65-110) mg/dL Calcium 9.4 (8.4-10.2) mg/dL Total Bilirubin 0.7 (0.2-1.3) mg/dL AST 48 H (14-36) U/L ALT 36 H (6-35) U/L Alkaline Phosphatase 163 H (38-126) U/L Total Protein 7.5 (6.3-8.2) g/dL Albumin 4.0 (3.5-5.1) g/dL Lipase 70 (23-300) U/L Urine Color Dark yellow (Yellow) Urine Appearance Cloudy H (Clear) Urine pH 6.5 (5.0-9.0) Ur Specific [place] 1.022 (1.001-1.035) Urine Protein Trace (Negative) mg/dL Urine Glucose (UA) 2+ H (Negative) mg/dL Urine Ketones Negative (Negative) mg/dL Ur Blood (Man) Negative (Negative) Urine Nitrate Negative (Negative) Urine Bilirubin Negative (Negative) Urine Urobilinogen 1.0 (<2.0) mg/dL Add Ur Microanalysis Reviewed Leukocyte Esterase Rfl 1+ H (Negative) NENA/UL Urine RBC 0-2 (0-2) /hpf Urine WBC 6-10 H (0-3) /hpf Ur Squamous Epith Cells Many H (Few) /hpf Urine Bacteria 1+ H /hpf Urine Casts 0-2 Discharge Plan Discharge Clinical Impression: Abdominal pain Qualifiers: Abdominal location: right lower quadrant Qualified Code(s): R10.31 - Right lower quadrant pain Patient Disposition: Home Condition: Stable Instructions: Antibiotic Form, Abdominal Pain (ED) Additional Instructions: You may take the dicyclomine every 8 hours as needed for your abdominal pain instead. Continue to take her other pain medications at home as prescribed. Please continue to seek follow-up with GI as soon as possible. Return to the ED for any new or worsening symptoms. Patient Language: Belarusian Prescriptions: No Action hydrocodone-acetaminophen 5-325 mg tablet 1 tablet PO Q6H PRN (Reason: pain) Qty: 10 0RF amlodipine 5 mg tablet 5 mg PO DAILY@0800 Patient Comments: had been on hold since february atorvastatin 80 mg tablet 80 mg PO DAILY@0800 Patient Comments: has been on hold since apr 20 carvedilol 12.5 mg tablet 12.5 mg PO BID (DME) Dexcom G7 Sensor Device MISCELLANEOUS Patient Comments: changed 05/12/2025 dicyclomine 20 mg tablet 20 mg PO BID Aimovig Autoinjector 70 mg/mL auto-injector 70 mg SUBCUT MONTHLY Patient Comments: took 04/23/2025 not do till 05/24/2025 hydroxyzine HCl 25 mg tablet 25 mg PO HS insulin lispro [Humalog U-100 Insulin] 100 unit/mL solution 1 sliding scale dose continuous subcutaneous infusion PRN PRN (Reason: hyperglycemia) Rx Instructions: 1 sliding scale dose via continuous subcutaneous infusion PRN; (DME) Omnipod 5 G6-G7 Pods (Gen 5) Cartridge SUBCUT methocarbamol 500 mg tablet 500 mg PO HS pantoprazole 40 mg tablet,delayed release (DR/EC) 40 mg PO HS ropinirole 0.25 mg tablet 0.75 mg PO HS PRN (Reason: restless leg(s)) venlafaxine 150 mg capsule,extended release 24hr 150 mg PO QPM Patient Comments: Dose changed on thursday aspirin [Children's Aspirin] 81 mg Tablet,Chewable 81 mg PO DAILY@0800 Qty: 30 0RF isosorbide mononitrate 60 mg Tablet Extended Release 24 Hr 60 mg PO QAM Qty: 30 1RF Follow-up/Referrals: Breezy,Brissa Zamora MD [Primary Care Provider, Unknown] Bertin Birmingham MD [Physician, Gastroenterology]
[2025-07-04 19:47] LABS: Hematocrit 35.8 % (37.0-47.0); Hemoglobin 11.1 g/dL (12.0-15.0); Immature Granulocyte Percent A 0.3 % (0-0.5); Lymphocytes Absolute Auto 1.75 K/mm3 (0.9-3.2); Mean Corpuscular HGB Conc 31.0 g/dl (32-36); Mean Corpuscular Hemoglobin 26.2 pg (26-34); Mean Corpuscular Volume 84.6 fl (80-100); Nucleated Red Blood Cells Absolute Auto 0.000 K/mm3 (0.0-0.012); Nucleated Red Blood Cells Perc 0.0 % (0.0-0.2); Platelet Count Result 247 k/mm3 (150-375); Red Blood Count 4.23 M/mm3 (4.2-5.4); White Blood Count 6.4 K/mm3 (4.5-10.0)
--- OUTSIDE RECORDS SUMMARY | 2025-07-04 19:56 | XMS_ITS | Clinical Summary ---
Author Organization [facility] Address [address] [facility] [address] [place] [address] Care Team Providers Care Deckhand Sponge Boat Name Role Phone Adele Lagos MD Primary Care Provider [phone] Allergies Active Allergy Reactions Criticality Noted Date [...] Other. Active Insulin Disposable Pump (Omnipod 5 [id number] Pods Gen 5) Misc change pod every [...] Sex Assigned at Female 08/12/2024 6:07 PM FISHERIES DIVER Legal Sex Female 4:01 AM FISHERIES DIVER Gender Identity Female 08/12/2024 6:07 PM FISHERIES DIVER Sexual Orientation Not on file Last Filed [...] ID:[id number] Group ID:[id number] Type:Not on file Address: [address] [id number] MEDICARE MEDICARE C [employer] [place] Care Teams Deckhand Sponge Boat Relationship Specialty Start Date End Date Adele Lagos MD [address] [place] [address] PCP - General Family Medicine 07/15/20
--- OUTSIDE RECORDS SUMMARY | 2025-07-04 19:56 | XMS_ITS | Encounter Summary ---
Author Organization [facility] Address [address] [place] [address] Care Team Providers Care Mine Laborer Name Role Phone Hero Bearden MD Unavailable Ce Villalobos MD Unavailable Brissa Tijerina MD Primary Care Provider + Reason for Visit * Reason Onset Date Comments Preprocedure Call 01/16/2025 Feather Washer spoke w jessica Landeros and reiterated that we need an H&P within 30 days of 01/20/25 MRI with anesthesia appt. Leti to call PCP for appt. Feather Washer also reviewed anesthesia instructions: NPO after midnight, arrival time 0700, bring a mule driver, and reviewed medications to hold. All questions answered and Leti verbalized understanding. Encounter Details Date Type Department Care Team (Latest Contact Info) Description 01/16/2025 Pre-Procedure Call [facility] Interventional Radiology [address] [place] [address] Stella Castillo, RN Preprocedure Call (Feather Washer spoke with Leti and reiterated that we need an H&P within 30 days of 01/20/25 MRI with anesthesia appt. Leti to call PCP for appt. Feather Washer also reviewed anesthesia instructions: NPO after midnight, arrival time 0700, bring a mule driver, and reviewed medications to hold. All [...] Patient Health Questionnaire-2 Score 0 10/[facility]/2022 [facility] - Occupational Stress Questionnaire Answer [...] place to sleep or slept in a chcf (including now)? Yes 05/08/2023 Comments No Sex and Gender Information Value Date Recorded Sex Assigned at Female 09/30/2024 10:51 PM MASTER AUTOMOTIVE TECHNICIAN Legal Sex Female 7:02 PM CDT [...] on filedocumented in this encounter Care Teams Mine Laborer Relationship Specialty Start Date End Date Brissa Tijerina MD [address] [place] [address] PCP - General FAMILY PRACTICE 11/03/24 Hero Bearden MD Crm Dynamics Developer OBGYN 04/04/22 Ce Villalobos MD [address] [place] [address] [place] Bail Bonding Agent CARDIOVASCULAR DISEASE 07/18/22 documented as of this encounter
--- OUTSIDE RECORDS SUMMARY | 2025-07-04 19:56 | XMS_ITS | Clinical Summary ---
Author Organization [facility] Address [address] [place] [address] Phone Care Team Providers Care Stull Hewer Name Role Phone Unavailable Primary Care Provider Unavailabl e Social History Tobacco Use Types Packs/Day Years Used Date Smoking Tobacco: Never Assessed Comments Unknown Sex and Gender Information Value Date Recorded Sex Assigned at Not on file Legal Sex Female 6:40 PM SLAGGER Gender Identity Not on file Sexual Orientation [...]
--- OUTSIDE RECORDS SUMMARY | 2025-07-04 19:56 | XMS_ITS | Data Portability ---
Author Organization [facility], [address] ([place]) Address [address] [place] [address] Care Team Providers Care Self Pay Specialist Name Role Phone DRAKE MCNEAL Insurance Claims Examiner PAULY VIZCAINO Primary Care Provider PAULY VIZCAINO Referring Provider DELIA HALL Explosives Operator Assessment Encounter Date Assessment Date Assessment LastModified by Organization Details LastModified Time 04/28/2025 04/28/2025 1. Stable exam. We will refer to nephrology for a follow up on MALENA. I told her we may need to get her started on Farxiga depending on her kidney function results. 2. We will treat symptoms with fluconazole 1 now and repeat in 3 days. 3. Recommended she stay well hydrated and continue to drink plenty of water during the day. Discouraged soda consumption. 4. She will continue to hold atorvastatin for now as some of her myalgia may be related to the increased dose of atorvastatin. Would consider a lower dose statin as well as adding Zetia with this versus a high dose statin if her symptoms resolve with withholding the statin for now. 5. She will follow up in May as planned with Melissa and will check her blood pressure and continue to monitor at home. Will also follow up with her myalgia and statins and follow up with her depression. Plan of care discussed with the patient and questions were answered. Understanding verbalized. bossman [email or web address] Not available 04/29/2025 08:57:24 05/30/2025 05/30/2025 1. Primary insomnia with comorbid anxiety - Start quetiapine (Seroquel) 25 mg at bedtime; if minimal benefit after 3-4 nights and no excessive morning sedation or adverse effects, may increase to 50 mg at bedtime. - Reduce hydroxyzine to 25 mg at bedtime as needed to avoid excessive sedation; may increase to 50 mg PRN if needed. - Discussed potential side effects (dry mouth, morning grogginess, rare mood changes, allergic reactions) and to call with concerns. - Maintain sleep hygiene. Provide update in ~1 week regarding response. 2. Adverse reaction to isosorbide mononitrate (Imdur) - severe anxiety and insomnia - Added to allergy list; avoid future use. 3. Dyspnea on exertion with episodic hypoxemia; history of asthma; possible beta-beck contribution - Keep scheduled pulmonology appointment Thursday for evaluation and pulmonary function testing; defer starting daily inhaler until after evaluation. - Monitor home SpO2 with exertion; rest as needed when desaturation occurs; report trends/worsening to clinic. - Acknowledge potential carvedilol effect on asthma; will coordinate with pulmonology regarding management. 4. Blood pressure and heart rate monitoring on amlodipine and carvedilol - Current clinic BP 130/62 mmHg. - Continue nightly home BP and pulse logs; send readings (include pulse). If resting pulse frequently <60 bpm, avoid uptitration of beta-beck; if readings permit, have room to adjust amlodipine or carvedilol as needed based on trends. 5. Migraine disorder on Aimovig - Continue Aimovig with 3rd dose due Oct 10; reassess at ~3 months for therapeutic response; consider dose increase at that time if headaches persist. 6. Chronic pain: thoracic arachnoid cyst with radicular pain; cervical radiculopathy; partial rotator cuff tear - Proceed with second opinion with spine surgery (Dr. Leavitt) and continue pain management (consider repeat cervical injection; ortho shoulder injection up to every 3 months per prior plan). 7. Fibromyalgia, currently flared amid increased stress/anxiety and poor sleep - Expect improvement as sleep/anxiety improve; will monitor. Acknowledge forthcoming FDA-approved therapy later this year; consider when available if appropriate. 8. History of mild GELACIO - Inform pulmonology about current insomnia and prior CPAP trial; consider overnight oximetry if indicated. Additional instructions: Send home BP/pulse log (son tracking on phone). Medication sent to requested pharmacy. Call or message with any adverse effects or if insomnia/anxiety worsen. Total time spent: 32 minutes (Tracked by [employer]) [id number] Not available 05/30/2025 10:44:09 06/07/2025 06/07/2025 Ms. 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 Patient's baseline serum creatinine is 0.8 1 .0. Patient's most recent serum creatinine was noted to be 1.2. Patient did have a CT of her abdomen and pelvis in May 2025 which showed no hydronephrosis, renal calculi or concerning masses. Patient will get CBC, RFP, microalbumin, C3, C4, ADALBERTO, ANCA, serum immunofixation, urinalysis, urine culture and urine eosinophils today. Patient does think that she might have a urinary tract infection and states she gets these frequently. Reviewed good hydration with patient. Patient will avoid NSAIDs. Continue to monitor renal function panel at regular intervals. Discussed about KDIGO recommendations to prevent CKD progression -Advised to undertake moderate-intensit y physical activity for a cumulative duration of at least 150 minutes per week, or to a level compatible with their cardiovascular and physical tolerance -Patients should consume a balanced, healthy diet that is high in vegetables, , plant-based proteins, unsaturated fats, and lower in processed meats, refined carbohydrates, and sweetened beverages. -Sodium (<2 g/day) and protein intake (0.8 g/kg/day) in accordance with recommendations for the general population. - Suggest NOT to prescribe bisphosphonate treatment in people with GFR o30 ml/min/1.73 m2 (GFR categories G4-G5) without a strong clinical rationale. -Individualize Hba1c target goal of 6.5 to 8 % based on underlying comorbidities -Cessation of tobacco -Avoid Nephrotoxic agents -such as NSAIDS renal dosage of all medications to the appropriate GFR -Reduce albuminuria with use of HECTOR inhibitor or ARB -initiation of SGLT-2 Inhibitors if appropriate indication. C KD/MBD Calcium and phosphorus will be obtained today. Anemia of chronic disease Patient will get a CBC today. Hypertension Patient's blood pressure is under good control. Patient will continue with her current med regimen and continue to follow a low-sodium diet. Type 2 diabetes mellitus Target hemoglobin A1c is 7.0. Patient will continue to follow with her PCP/endocrinology for ongoing diabetes management. Patient's most recent hemoglobin A1c is 6.9. Implement a voiding schedule to begin in the morning upon awakening, before lunch, before dinner and before at bedtime to encourage flushing of the urinary tract as a defense mechanism to prevent urinary tract infections. Upon completion of voiding, weight 30 seconds avoid again to optimize bladder emptying. Hydration as is feasible given her medical history. Drink 8 - 8 ounces glasses of water per day to encourage flushing of the urinary tract. Intermittent treatment of recurrent urinary tract infections as they occur based upon urinanalysis, cultures and sensitivity data. Avoid treatment of asymptomatic bacteriuria. If possible, avoid prophylactic antimicrobial therapy as a consequence of selection for antibiotic resistant bacteria in the bowel. The result of prophylactic antimicrobial therapy is the selection of antibiotic resistant bacteria in the bowel which will then cause recurrent urinary tract infections and possibly severe sepsis in spite of the antibiotic agent that is being taken and make the next infection more difficult to treat as a consequence of the effect of selection for antibiotic resistance. Consider treatment of atrophic vaginitis with a regimen that is not estrogen based including Replens or a similar product, hyaluronic acid cream, cocoa butter or K-Y jelly. Try a probiotic 1 orally twice daily, indefinitely to encourage normal vaginal sanket to allow for a naturally acidic vaginal microflora which resist transfer of enteric bacteria to the periurethral area. Use products containing acidophilus and avoid products containing yeast. Avoid introducing supple water into the vagina. If there is a need for vaginal hygiene, use an acidic acid (vinegar and water) douche, at a concentration appropriate for use as a salad dressing ingredient to avoid a chemical burn. She may wash the perineum with soap and water. The patient had the opportunity to ask and have questions answered. The patient voiced an understanding of the diagnosis and of the care plan and intent to comply with it. [email or web address] Not available 06/07/2025 16:13:59 07/04/2025 07/04/2025 1. Persistent depressive disorder with anxiety - Increase venlafaxine ER to total 225 mg daily by adding 75 mg to existing 150 mg regimen. - Write prescriptions to reflect 150 mg capsule daily along with 75 mg tablet daily for a total of 225 mg/day; send as 90-day supplies with refills. - Monitor for additional benefit over the next 4-6 weeks; follow up in about 1 month to assess response and tolerability. 2. Primary insomnia - Continue quetiapine 25 mg at bedtime, 1-2 tablets as needed depending on ability to allow a full night of sleep; refill as 90-day supply (180 tablets) with refills. 3. Chronic migraine with aura, uncontrolled on Aimovig 70 mg - Increase Aimovig to 140 mg subcutaneous once monthly; prescribe with ability to obtain a 3-month supply if allowed by pharmacy/insurer. - Ubrelvy reported as minimally effective. - Clinician to consult supervising physician regarding feasibility of standing orders for nalbuphine 20 mg IM plus ondansetron 4 mg IM for severe migraines at local ER; will update patient after discussion. 4. Essential hypertension, controlled - BP today 128/64 mmHg; continue current regimen. No changes made today. 5. GI symptoms/colonosc opy preparation intolerance; difficulty contacting GI - Clinician will send another message to GI office to facilitate contact and discuss alternative prep options given intolerance; patient will also continue attempts to reach them. 6. Immunization need - Patient requested influenza vaccination today; proceed if patient is feeling well and no contraindications . Follow-up: Return in approximately 1 month to reassess mood/anxiety and sleep after venlafaxine dose increase; sooner for worsening symptoms or concerns. Will communicate after consulting regarding migraine injection protocol at ER. Total time spent: 19 minutes (Tracked by [employer]) [id number] Not available 07/04/2025 11:56:04 Plan of Treatment Reminders Order Date Submit Date Provider Last Modified By Organization Details Last Modified Time Details Appointments Estabrodrigos donovan Patient 20.EST 2024 10:20A M Melissa Macias Not available Not available Not available Pulm Function Methacho line.PRO 2024 02:15P M [facility] Not available Not available Not available New Patient Visit 10.NEW 2024 01:30P M Dr. Shital Mendes Not available Not available Not available [facility] Patient 15.EST 2024 02:20P M Dr. Carrol Villagomez Not available Not available Not available [facility] Patient 15.EST 2024 01:45P M Tiffanie Painting Not available Not available Not available [facility] Patient 15.EST 2025 02:30P M Delia Hall Not available Not available Not available [facility] Patient 15.EST 2025 03:00P M Kyaaraseli Wilsoncammie Not available Not available Not available Lab None recorded . Referral nephrolo gist referral 2024 025 [email or web address] Delia Hall PA-C, [address], [address], 05/08/2025 16:30:26 Procedures None recorded . Surgeries None recorded . Imaging None recorded . Medication Orders Aimovig Autoinje ctor 140 mg/mL subcutan eous auto-inj leticia 2024 025 [place], [address] [place] [address], [id number], 07/04/2025 11:58:12 quetiapi ne 25 mg tablet 2024 025 [place], [address] [place] [address], [id number], 07/04/2025 12:06:53 venlafax ine ER 150 mg capsule, extended release 24 hr 2024 025 [place], [address] [place] [address], [id number], 07/04/2025 18:03:39 venlafax ine ER 75 mg capsule, extended release 24 hr 2024 025 [place], [address] [place] [address], [id number], 07/04/2025 18:03:39 quetiapi ne 25 mg tablet 2024 025 [place], [address] [place] [address], [id number], 06/27/2025 18:04:50 fluconaz ole 150 mg tablet 2024 025 [place], [address] [place], [address], 05/30/2025 10:10:32 Patient TargetsNo targets recorded. Patient InstructionsNo instructions recorded. Reason for Referral Explosives Operator Referral for Ac verito kidney injury MALENA after vanco use/insulin dependent diabetic Referring Physician: Valeria Baugh, Family Medicine, Encounter Date: 04/28/2025 Results Created Date Observation Date Name Description Value Unit Range Abnormal Flag Note LastModifiedBy Organization Detail LastModifiedTime 04/09/2004/09/2025 LIPAS E lipase 28 U/L 8 - 57 Not Available [facility] Central Scheduling [address] [place], [address], 04/10/2025 00:14:05 04/09/2004/09/2025 COMPL ETE METAB OLIC PANEL sodium 139 mmol/ L 136 - 145 Not Available [facility] Central Scheduling [address] [place], [address], 04/10/2025 00:13:59 04/09/20 25 04/09/2025 COMPL ETE METAB OLIC PANEL potassium 3.9 mmol/ L 3.5 - 5.1 Not Available [facility] Central Scheduling [address] [place], [address], 04/10/2025 00:13:59 04/09/20 25 04/09/2025 COMPL ETE METAB OLIC PANEL chloride 107 mmol/ L 98 - 107 Not Available [facility] Central Scheduling [address] [place], [address], 04/10/2025 00:13:59 04/09/20 25 04/09/2025 COMPL ETE METAB OLIC PANEL CO2 24 mmol/ L 22 - 28 Not Available [facility] Scheduling [address] [place], [address], 04/10/2025 00:13:59 04/09/20 25 04/09/2025 COMPL ETE METAB OLIC PANEL glucose 145 mg/dL 70 - 105 high Not Available [facility] Scheduling [address] [place], [address], 04/10/2025 00:13:59 04/09/20 25 04/09/2025 COMPL ETE METAB OLIC PANEL BUN 18 mg/dL 7 - 18 Not Available [facility] Central Scheduling [address] [place], [address], 04/10/2025 00:13:59 04/09/20 25 04/09/2025 COMPL ETE METAB OLIC PANEL creatinine 0.81 mg/dL 0.44 - 1.24 Not Available [facility] Central Scheduling [address] [place], [address], 04/10/2025 00:13:59 04/09/20 25 04/09/2025 COMPL ETE METAB OLIC PANEL total protein 7.3 g/dL 6.0 - 8.3 Not Available [facility] Scheduling [address] [place], [address], 04/10/2025 00:13:59 04/09/2004/09/2025 COMPL ETE METAB OLIC PANEL albumin 3.7 g/dL 3.5 - 5.0 Not Available [facility] Scheduling [address] [place], [address], 04/10/2025 00:13:59 04/09/20 25 04/09/2025 COMPL ETE METAB OLIC PANEL T bilirubin 1.0 mg/dL 0.2 - 1.0 Not Available [facility] Scheduling [address] [place], [address], 04/10/2025 00:13:59 04/09/20 25 04/09/2025 COMPL ETE METAB OLIC PANEL SGPT 27 IU/L 10 - 40 Not Available [facility] Scheduling [address] [place], [address], 04/10/2025 00:13:59 04/09/20 25 04/09/2025 COMPL ETE METAB OLIC PANEL alk phos 133 IU/L 32 - 92 high Not Available [facility] Scheduling [address] [place], [address], 04/10/2025 00:13:59 04/09/20 25 04/09/2025 COMPL ETE METAB OLIC PANEL SGOT 37 IU/L 10 - 42 Not Available [facility] Scheduling [address] [place], [address], 04/10/2025 00:13:59 04/09/20 25 04/09/2025 COMPL ETE METAB OLIC PANEL calcium 9.2 mg/dL 8.4 - 10.2 Not Available [facility] Scheduling [address] [place], [address], 04/10/2025 00:13:59 04/09/2004/09/2025 COMPL ETE METAB OLIC PANEL age 54 yr Not Available [facility] Central Scheduling [address] [place], [address], 04/10/2025 00:13:59 04/09/2004/09/2025 COMPL ETE METAB OLIC PANEL eGFR 86 \BLDo \eGFR INTER PRETI VE TEXT\ BLDx\ This eGFR is calcu lated using 2020 CKD-E PI Creat inine equat ion witho ut race modif ier based on the NKF-A SN task force recom menda tions . In most healt hy peopl e the luzmaria l GFR is 90 mL/mi n/1.7 3 m2 or highe r. A resul t of 60-89 mL/mi n/1.7 3 m2 with kidne y damag e may be luzmaria l in some peopl e(suc h as [...] se(CK D) is prese nt. Not Available [facility] Central Scheduling [address] [place], [address], 04/10/2025 00:13:59 04/09/20 25 04/09/2025 CBC-C OMPLE TE WBC 8.4 10^3u L 4.0 - 10.8 Not Available [facility] Central Scheduling [address] [place], [address], 04/10/2025 00:01:59 04/09/2004/09/2025 CBC-C OMPLE TE RBC 4.16 10^6u L 3.80 - 5.20 Not Available [facility] Scheduling [address] [place], [address], 04/10/2025 00:01:59 04/09/20 25 04/09/2025 CBC-C OMPLE TE hemoglobin 11.6 g/dL 11.7 - 16.0 low Not Available [facility] Scheduling [address] [place], [address], 04/10/2025 00:01:59 04/09/20 25 04/09/2025 CBC-C OMPLE TE hematocrit 33.8 % 35.0 - 47.0 low Not Available [facility]uling [address] [place], [address], 04/10/2025 00:01:59 04/09/20 25 04/09/2025 CBC-C OMPLE TE MCV 81 fL 80 - 100 Not Available [facility] Scheduling [address] [place], [address], 04/10/2025 00:01:59 04/09/20 25 04/09/2025 CBC-C OMPLE TE MCH 28 pg 28 - 33 Not Available [facility]uling [address] [place], [address], 04/10/2025 00:01:59 04/09/20 25 04/09/2025 CBC-C OMPLE TE MCHC 34 g/dL 32 - 36 Not Available [facility] Scheduling [address] [place], [address], 04/10/2025 00:01:59 04/09/20 25 04/09/2025 CBC-C OMPLE TE RDW 14.8 % 11.5 - 15.5 Not Available [facility] Scheduling [address] [place], [address], 04/10/2025 00:01:59 04/09/20 25 04/09/2025 CBC-C OMPLE TE platelet 282 10^3u L 140 - 440 Not Available [facility] Scheduling [address] [place], [address], 04/10/2025 00:01:59 04/09/20 25 04/09/2025 CBC-C OMPLE TE MPV 7.6 fL 7.5 - 11.0 Not Available [facility] Scheduling [address] [place], [address], 04/10/2025 00:01:59 04/09/20 25 04/09/2025 CBC-C OMPLE TE %neutrophils 68.8 % 40.0 - 75.0 Not Available [facility] Scheduling [address] [place], [address], 04/10/2025 00:01:59 04/09/20 25 04/09/2025 CBC-C OMPLE TE %lymphocytes 19.3 % 15.0 - 45.0 Not Available [facility] Scheduling [address] [place], [address], 04/10/2025 00:01:59 04/09/20 25 04/09/2025 CBC-C OMPLE TE %monocytes 8.8 % 2.0 - 12.0 Not Available [facility]uling [address] [place], [address], 04/10/2025 00:01:59 04/09/2004/09/2025 CBC-C OMPLE TE %eosinophils 2.2 % 0.0 - 5.0 Not Available [facility]uling [address] [place], [address], 04/10/2025 00:01:59 04/09/2004/09/2025 CBC-C OMPLE TE %basophils 0.9 % 0.0 - 2.0 Not Available [facility]uling [address] [place], [address], 04/10/2025 00:01:59 04/09/2004/09/2025 CBC-C OMPLE TE neutrophil 5.8 10^3/ uL 1.7 - 7.0 Not Available [facility]uling [address] [place], [address], 04/10/2025 00:01:59 04/09/2004/09/2025 CBC-C OMPLE TE lymphocyte 1.6 10^3/ uL 0.9 - 3.7 Not Available [facility]uling [address] [place], [address], 04/10/2025 00:01:59 04/09/2004/09/2025 CBC-C OMPLE TE monocyte 0.7 10^3/ uL 0.2 - 0.8 Not Available [facility]uling [address] [place], [address], 04/10/2025 00:01:59 04/09/2004/09/2025 CBC-C OMPLE TE eosinophil 0.2 10^3/ uL 0.0 - 0.5 Not Available [facility]uling [address] [place], [address], 04/10/2025 00:01:59 07/27/20 25 04/09/2025 CBC-C OMPLE TE basophil 0.1 10^3/ uL 0.0 - 0.2 Not Available [facility] Scheduling [address] [place], [address], 04/10/2025 00:01:59 04/09/20 25 04/09/2025 CBC-C OMPLE TE mdw 17.28 0.00 - 20.00 {CD] Not Available [facility]uling [address] [place], [address], 04/10/2025 00:01:59 04/09/20 25 04/09/2025 CBC-C OMPLE TE manual diff NOT INDICA MICHELLE Not Available [facility] Scheduling [address] [place], [address], 04/10/2025 00:01:59 04/27/20 25 04/27/2025 LIPAS E lipase 25 U/L 8 - 57 Not Available [facility] Central Scheduling [address] [place], [address], 04/27/2025 17:59:19 04/27/20 25 04/27/2025 COMPL ETE METAB OLIC PANEL sodium 142 mmol/ L 136 - 145 Not Available [facility] Scheduling [address] [place], [address], 04/27/2025 17:59:14 04/27/2004/27/2025 COMPL ETE METAB OLIC PANEL potassium 4.0 mmol/ L 3.5 - 5.1 Not Available [facility] Scheduling [address] [place], [address], 04/27/2025 17:59:14 04/27/20 25 04/27/2025 COMPL ETE METAB OLIC PANEL chloride 105 mmol/ L 98 - 107 Not Available [facility] Scheduling [address] [place], [address], 04/27/2025 17:59:14 04/27/20 25 04/27/2025 COMPL ETE METAB OLIC PANEL CO2 27 mmol/ L 22 - 28 Not Available [facility] Scheduling [address] [place], [address], 04/27/2025 17:59:14 04/27/20 25 04/27/2025 COMPL ETE METAB OLIC PANEL glucose 104 mg/dL 70 - 105 Not Available [facility] Scheduling [address] [place], [address], 04/27/2025 17:59:14 04/27/20 25 04/27/2025 COMPL ETE METAB OLIC PANEL BUN 19 mg/dL 7 - 18 high Not Available [facility] Central Scheduling [address] [place], [address], 04/27/2025 17:59:14 04/27/20 25 04/27/2025 COMPL ETE METAB OLIC PANEL creatinine 1.37 mg/dL 0.44 - 1.24 high Not Available [facility] [address] [place], [address], 04/27/2025 17:59:14 04/27/20 25 04/27/2025 COMPL ETE METAB OLIC PANEL total protein 7.4 g/dL 6.0 - 8.3 Not Available [facility] Scheduling [address] [place], [address], 04/27/2025 17:59:14 04/27/20 25 04/27/2025 COMPL ETE METAB OLIC PANEL albumin 3.8 g/dL 3.5 - 5.0 Not Available [facility] Scheduling [address] [place], [address], 04/27/2025 17:59:14 04/27/20 25 04/27/2025 COMPL ETE METAB OLIC PANEL T bilirubin 0.8 mg/dL 0.2 - 1.0 Not Available [facility] Scheduling [address] [place], [address], 04/27/2025 17:59:14 04/27/20 25 04/27/2025 COMPL ETE METAB OLIC PANEL SGPT 41 IU/L 10 - 40 high Not Available [facility] [address] [place], [address], 04/27/2025 17:59:14 04/27/20 25 04/27/2025 COMPL ETE METAB OLIC PANEL alk phos 124 IU/L 32 - 92 high Not Available [facility] Scheduling [address] [place], [address], 04/27/2025 17:59:14 04/27/20 25 04/27/2025 COMPL ETE METAB OLIC PANEL SGOT 57 IU/L 10 - 42 high Not Available [facility] Scheduling [address] [place], [address], 04/27/2025 17:59:14 04/27/20 25 04/27/2025 COMPL ETE METAB OLIC PANEL calcium 9.1 mg/dL 8.4 - 10.2 Not Available [facility] Central Scheduling [address] [place], [address], 04/27/2025 17:59:14 04/27/20 25 04/27/2025 COMPL ETE METAB OLIC PANEL age 54 yr Not Available [facility] Central Scheduling [address] [place], [address], 04/27/2025 17:59:14 04/27/20 25 04/27/2025 COMPL ETE METAB OLIC PANEL eGFR 46 \BLDo \eGFR INTER PRETI VE TEXT\ BLDx\ This eGFR is calcu lated using 2020 CKD-E PI Creat inine equat ion witho ut race modif ier based on the NKF-A SN task force recom menda tions . In most healt hy peopl e the luzmaria l GFR is 90 mL/mi n/1.7 3 m2 or highe r. A resul t of 60-89 mL/mi n/1.7 3 m2 with kidne y damag e may be luzmaria l in some peopl e(suc h as [...] se(CK D) is prese nt. Not Available [facility] Central Scheduling [address] [place], [address], 04/27/2025 17:59:14 04/27/20 25 04/27/2025 CBC-C OMPLE TE WBC 6.5 10^3u L 4.0 - 10.8 Not Available [facility] Central Scheduling [address] [place], [address], 04/27/2025 17:41:23 04/27/20 25 04/27/2025 CBC-C OMPLE TE RBC 4.03 10^6u L 3.80 - 5.20 Not Available [facility] Central Scheduling [address] [place], [address], 04/27/2025 17:41:23 04/27/20 25 04/27/2025 CBC-C OMPLE TE hemoglobin 11.1 g/dL 11.7 - 16.0 low Not Available [facility] Central Scheduling [address] [place], [address], 04/27/2025 17:41:23 04/27/20 25 04/27/2025 CBC-C OMPLE TE hematocrit 33.4 % 35.0 - 47.0 low Not Available [facility] Central Scheduling [address] [place], [address], 04/27/2025 17:41:23 04/27/20 25 04/27/2025 CBC-C OMPLE TE MCV 83 fL 80 - 100 Not Available [facility] Central Scheduling [address] [place], [address], 04/27/2025 17:41:23 04/27/20 25 04/27/2025 CBC-C OMPLE TE MCH 28 pg 28 - 33 Not Available [facility] Central Scheduling [address] [place], [address], 04/27/2025 17:41:23 04/27/20 25 04/27/2025 CBC-C OMPLE TE MCHC 33 g/dL 32 - 36 Not Available [facility] Central Scheduling [address] [place], [address], 04/27/2025 17:41:23 04/27/20 25 04/27/2025 CBC-C OMPLE TE RDW 15.8 % 11.5 - 15.5 high Not Available [facility] Central Scheduling [address] [place], [address], 04/27/2025 17:41:23 04/27/20 25 04/27/2025 CBC-C OMPLE TE platelet 296 10^3u L 140 - 440 Not Available [facility] Central Scheduling [address] [place], [address], 04/27/2025 17:41:23 04/27/20 25 04/27/2025 CBC-C OMPLE TE MPV 7.6 fL 7.5 - 11.0 Not Available [facility] Central Scheduling [address] [place], [address], 04/27/2025 17:41:23 04/27/20 25 04/27/2025 CBC-C OMPLE TE %neutrophils 67.7 % 40.0 - 75.0 Not Available [facility] Central Scheduling [address] [place], [address], 04/27/2025 17:41:23 04/27/20 25 04/27/2025 CBC-C OMPLE TE %lymphocytes 21.8 % 15.0 - 45.0 Not Available [facility] Central Scheduling [address] [place], [address], 04/27/2025 17:41:23 04/27/20 25 04/27/2025 CBC-C OMPLE TE %monocytes 7.4 % 2.0 - 12.0 Not Available [facility] Central Scheduling [address] [place], [address], 04/27/2025 17:41:23 04/27/20 25 04/27/2025 CBC-C OMPLE TE %eosinophils 2.6 % 0.0 - 5.0 Not Available [facility] Central Scheduling [address] [place], [address], 04/27/2025 17:41:23 04/27/20 25 04/27/2025 CBC-C OMPLE TE %basophils 0.5 % 0.0 - 2.0 Not Available [facility] Central Scheduling [address] [place], [address], 04/27/2025 17:41:23 04/27/20 25 04/27/2025 CBC-C OMPLE TE neutrophil 4.4 10^3/ uL 1.7 - 7.0 Not Available [facility] Central Scheduling [address] [place], [address], 04/27/2025 17:41:23 04/27/20 25 04/27/2025 CBC-C OMPLE TE lymphocyte 1.4 10^3/ uL 0.9 - 3.7 Not Available [facility] Central Scheduling [address] [place], [address], 04/27/2025 17:41:23 04/27/20 25 04/27/2025 CBC-C OMPLE TE monocyte 0.5 10^3/ uL 0.2 - 0.8 Not Available [facility] Central Scheduling [address] [place], [address], 04/27/2025 17:41:23 04/27/20 25 04/27/2025 CBC-C OMPLE TE eosinophil 0.2 10^3/ uL 0.0 - 0.5 Not Available [facility] Central Scheduling [address] [place], [address], 04/27/2025 17:41:23 04/27/20 25 04/27/2025 CBC-C OMPLE TE basophil 0.0 10^3/ uL 0.0 - 0.2 Not Available [facility] Central Scheduling [address] [place], [address], 04/27/2025 17:41:23 04/27/20 25 04/27/2025 CBC-C OMPLE TE mdw 17.14 0.00 - 20.00 {CD] Not Available [facility] Central Scheduling [address] [place], [address], 04/27/2025 17:41:23 04/27/20 25 04/27/2025 CBC-C OMPLE TE manual diff NOT INDICA MICHELLE Not Available [facility] Central Scheduling [address] [place], [address], 04/27/2025 17:41:23 04/27/20 25 04/27/2025 LACTI C ACID lactic acid 0.81 mmol/ L 0.50 - 2.20 Not Available [facility] Central Scheduling [address] [place], [address], 04/27/2025 17:40:25 04/27/20 25 04/29/2025 CULTU RE/UR INE results _CULT URE URINE _ Not Available [facility] Central Scheduling [address] [place], [address], 04/29/2025 08:57:02 04/27/2004/29/2025 CULTU RE/UR INE final report CLEAN CATCH SPECIM EN __>10 0,000 _cfu/ mL_>3 _ORGA NISMS ___ 04/29.0 756.A RM. _GRAM _POSI TIVE_ AND_N EGATI VE_FL ORA__ ___ 04/29.0 756.A RM. Not Available [facility] Central Scheduling [address] [place], [address], 04/29/2025 08:57:02 08/14/20 25 04/29/2025 CULTU RE/UR INE results 04/29.0 756.A RM.CO MPLET E CLEAN CATCH SPECI MEN Not Available [facility] Central Scheduling [address] [place], [address], 04/29/2025 08:57:02 04/27/2004/27/2025 URINA LYSIS color YELLOW normal : yellow Not Available [facility] Central Scheduling [address] [place], [address], 04/27/2025 17:51:17 04/27/2004/27/2025 URINA LYSIS character HAZY normal : clear Not Available [facility] Central Scheduling [address] [place], [address], 04/27/2025 17:51:17 04/27/2004/27/2025 URINA LYSIS spec. grav 1.015 normal : 1.003- 1.029 Not Available [facility] Central Scheduling [address] [place], [address], 04/27/2025 17:51:17 04/27/2004/27/2025 URINA LYSIS pH 6.0 normal : 4.5 - 7.8 Not Available [facility] Central Scheduling [address] [place], [address], 04/27/2025 17:51:17 04/27/2004/27/2025 URINA LYSIS leukocytes 2+ normal : negati ve Not Available [facility] Central Scheduling [address] [place], [address], 04/27/2025 17:51:17 04/27/2004/27/2025 URINA LYSIS nitrite NEGATI VE normal : negati ve Not Available [facility] Central Scheduling [address] [place], [address], 04/27/2025 17:51:17 04/27/20 25 04/27/2025 URINA LYSIS protein 1+ normal : negati ve Not Available [facility] Central Scheduling [address] [place], [address], 04/27/2025 17:51:17 04/27/20 25 04/27/2025 URINA LYSIS glucose NEGATI VE normal : negati ve Not Available [facility] Central Scheduling [address] [place], [address], 04/27/2025 17:51:17 04/27/20 25 04/27/2025 URINA LYSIS ketones NEGATI VE normal : negati ve Not Available [facility] Central Scheduling [address] [place], [address], 04/27/2025 17:51:17 04/27/20 25 04/27/2025 URINA LYSIS urobilinogen 0.2 normal : 0.2 - 1.0 Not Available [facility] Central Scheduling [address] [place], [address], 04/27/2025 17:51:17 04/27/20 25 04/27/2025 URINA LYSIS bilirubin NEGATI VE normal : negati ve Not Available [facility] Central Scheduling [address] [place], [address], 04/27/2025 17:51:17 04/27/20 25 04/27/2025 URINA LYSIS blood TRACE- INTACT normal : negati ve MICRO SCOPI C Not Available [facility] Central Scheduling [address] [place], [address], 04/27/2025 17:51:17 04/27/20 25 04/27/2025 URINA LYSIS WBC/hpf 10-20 normal : 0-5 hpf Not Available [facility] Central Scheduling [address] [place], [address], 04/27/2025 17:51:17 04/27/20 25 04/27/2025 URINA LYSIS RBC/hpf 0-2 normal : 0-3 hpf Not Available [facility] Central Scheduling [address] [place], [address], 04/27/2025 17:51:17 04/27/20 25 04/27/2025 URINA LYSIS epith/hpf >50 normal : 0-5 hpf Not Available [facility] Central Scheduling [address] [place], [address], 04/27/2025 17:51:17 04/27/20 25 04/27/2025 URINA LYSIS cast/lpf SEE BELOW normal : 0-4 lpf Not Available [facility] Central Scheduling [address] [place], [address], 04/27/2025 17:51:17 04/27/20 25 04/27/2025 URINA LYSIS hyaline 0-2 { GRANU LAR { LEUKO CYTE Not Available [facility] Central Scheduling [address] [place], [address], 04/27/2025 17:51:17 04/27/20 25 04/27/2025 URINA LYSIS crystals SEE BELOW normal : negati ve { TRIPL E PHOS Not Available [facility] Central Scheduling [address] [place], [address], 04/27/2025 17:51:17 04/27/20 25 04/27/2025 URINA LYSIS amorphous 2+ Not Available [facility] Central Scheduling [address] [place], [address], 04/27/2025 17:51:17 04/27/20 25 04/27/2025 URINA LYSIS bacteria 2+ normal : negati ve abnormal Not Available [facility] Central Scheduling [address] [place], [address], 04/27/2025 17:51:17 04/30/20 25 04/30/2025 LIPAS E lipase 19 U/L 8 - 57 Not Available [facility] Central Scheduling [address] [place], [address], 04/30/2025 10:28:42 04/30/20 25 04/30/2025 COMPL ETE METAB OLIC PANEL sodium 141 mmol/ L 136 - 145 Not Available [facility] Central Scheduling [address] [place], [address], 04/30/2025 10:28:37 04/30/20 25 04/30/2025 COMPL ETE METAB OLIC PANEL potassium 3.9 mmol/ L 3.5 - 5.1 Not Available [facility] Central Scheduling [address] [place], [address], 04/30/2025 10:28:37 04/30/20 25 04/30/2025 COMPL ETE METAB OLIC PANEL chloride 107 mmol/ L 98 - 107 Not Available [facility] Central Scheduling [address] [place], [address], 04/30/2025 10:28:37 04/30/20 25 04/30/2025 COMPL ETE METAB OLIC PANEL CO2 27 mmol/ L 22 - 28 Not Available [facility] Central Scheduling [address] [place], [address], 04/30/2025 10:28:37 04/30/20 25 04/30/2025 COMPL ETE METAB OLIC PANEL glucose 120 mg/dL 70 - 105 high Not Available [facility] Central Scheduling [address] [place], [address], 04/30/2025 10:28:37 04/30/20 25 04/30/2025 COMPL ETE METAB OLIC PANEL BUN 15 mg/dL 7 - 18 Not Available [facility] Central Scheduling [address] [place], [address], 04/30/2025 10:28:37 04/30/20 25 04/30/2025 COMPL ETE METAB OLIC PANEL creatinine 1.30 mg/dL 0.44 - 1.24 high Not Available [facility] Central Scheduling [address] [place], [address], 04/30/2025 10:28:37 04/30/20 25 04/30/2025 COMPL ETE METAB OLIC PANEL total protein 7.1 g/dL 6.0 - 8.3 Not Available [facility] Central Scheduling [address] [place], [address], 04/30/2025 10:28:37 04/30/20 25 04/30/2025 COMPL ETE METAB OLIC PANEL albumin 3.7 g/dL 3.5 - 5.0 Not Available [facility] Central Scheduling [address] [place], [address], 04/30/2025 10:28:37 04/30/20 25 04/30/2025 COMPL ETE METAB OLIC PANEL T bilirubin 0.7 mg/dL 0.2 - 1.0 Not Available [facility] Central Scheduling [address] [place], [address], 04/30/2025 10:28:37 04/30/20 25 04/30/2025 COMPL ETE METAB OLIC PANEL SGPT 36 IU/L 10 - 40 Not Available [facility] Central Scheduling [address] [place], [address], 04/30/2025 10:28:37 04/30/20 25 04/30/2025 COMPL ETE METAB OLIC PANEL alk phos 127 IU/L 32 - 92 high Not Available [facility] Central Scheduling [address] [place], [address], 04/30/2025 10:28:37 04/30/20 25 04/30/2025 COMPL ETE METAB OLIC PANEL SGOT 46 IU/L 10 - 42 high Not Available [facility] Central Scheduling [address] [place], [address], 04/30/2025 10:28:37 04/30/20 25 04/30/2025 COMPL ETE METAB OLIC PANEL calcium 9.1 mg/dL 8.4 - 10.2 Not Available [facility] Central Scheduling [address] [place], [address], 04/30/2025 10:28:37 04/30/20 25 04/30/2025 COMPL ETE METAB OLIC PANEL age 54 yr Not Available [facility] Central Scheduling [address] [place], [address], 04/30/2025 10:28:37 04/30/20 25 04/30/2025 COMPL ETE METAB OLIC PANEL eGFR 49 \BLDo \eGFR INTER PRETI VE TEXT\ BLDx\ This eGFR is calcu lated using 2020 CKD-E PI Creat inine equat ion witho ut race modif ier based on the NKF-A SN task force recom menda tions . In most healt hy peopl e the luzmaria l GFR is 90 mL/mi n/1.7 3 m2 or highe r. A resul t of 60-89 mL/mi n/1.7 3 m2 with kidne y damag e may be luzmaria l in some peopl e(suc h as [...] se(CK D) is prese nt. Not Available [facility] Central Scheduling [address] [place], [address], 04/30/2025 10:28:37 04/30/20 25 04/30/2025 CBC-C OMPLE TE WBC 5.4 10^3u L 4.0 - 10.8 Not Available [facility] Central Scheduling [address] [place], [address], 04/30/2025 10:13:24 04/30/20 25 04/30/2025 CBC-C OMPLE TE RBC 3.84 10^6u L 3.80 - 5.20 Not Available [facility] Central Scheduling [address] [place], [address], 04/30/2025 10:13:24 04/30/20 25 04/30/2025 CBC-C OMPLE TE hemoglobin 10.7 g/dL 11.7 - 16.0 low Not Available [facility] Central Scheduling [address] [place], [address], 04/30/2025 10:13:24 04/30/20 25 04/30/2025 CBC-C OMPLE TE hematocrit 31.2 % 35.0 - 47.0 low Not Available [facility] Central Scheduling [address] [place], [address], 04/30/2025 10:13:24 04/30/20 25 04/30/2025 CBC-C OMPLE TE MCV 81 fL 80 - 100 Not Available [facility] Central Scheduling [address] [place], [address], 04/30/2025 10:13:24 04/30/20 25 04/30/2025 CBC-C OMPLE TE MCH 28 pg 28 - 33 Not Available [facility] Central Scheduling [address] [place], [address], 04/30/2025 10:13:24 04/30/20 25 04/30/2025 CBC-C OMPLE TE MCHC 34 g/dL 32 - 36 Not Available [facility] Central Scheduling [address] [place], [address], 04/30/2025 10:13:24 04/30/20 25 04/30/2025 CBC-C OMPLE TE RDW 15.8 % 11.5 - 15.5 high Not Available [facility] Central Scheduling [address] [place], [address], 04/30/2025 10:13:24 04/30/20 25 04/30/2025 CBC-C OMPLE TE platelet 262 10^3u L 140 - 440 Not Available [facility] Central Scheduling [address] [place], [address], 04/30/2025 10:13:24 04/30/20 25 04/30/2025 CBC-C OMPLE TE MPV 7.7 fL 7.5 - 11.0 Not Available [facility] Central Scheduling [address] [place], [address], 04/30/2025 10:13:24 04/30/20 25 04/30/2025 CBC-C OMPLE TE %neutrophils 59.7 % 40.0 - 75.0 Not Available [facility] Central Scheduling [address] [place], [address], 04/30/2025 10:13:24 04/30/20 25 04/30/2025 CBC-C OMPLE TE %lymphocytes 25.1 % 15.0 - 45.0 Not Available [facility] Central Scheduling [address] [place], [address], 04/30/2025 10:13:24 04/30/20 25 04/30/2025 CBC-C OMPLE TE %monocytes 9.7 % 2.0 - 12.0 Not Available [facility] Central Scheduling [address] [place], [address], 04/30/2025 10:13:24 04/30/20 25 04/30/2025 CBC-C OMPLE TE %eosinophils 4.0 % 0.0 - 5.0 Not Available [facility] Central Scheduling [address] [place], [address], 04/30/2025 10:13:24 04/30/20 25 04/30/2025 CBC-C OMPLE TE %basophils 1.5 % 0.0 - 2.0 Not Available [facility] Central Scheduling [address] [place], [address], 04/30/2025 10:13:24 04/30/20 25 04/30/2025 CBC-C OMPLE TE neutrophil 3.2 10^3/ uL 1.7 - 7.0 Not Available [facility] Central Scheduling [address] [place], [address], 04/30/2025 10:13:24 04/30/20 25 04/30/2025 CBC-C OMPLE TE lymphocyte 1.4 10^3/ uL 0.9 - 3.7 Not Available [facility] Central Scheduling [address] [place], [address], 04/30/2025 10:13:24 04/30/20 25 04/30/2025 CBC-C OMPLE TE monocyte 0.5 10^3/ uL 0.2 - 0.8 Not Available [facility] Central Scheduling [address] [place], [address], 04/30/2025 10:13:24 04/30/20 25 04/30/2025 CBC-C OMPLE TE eosinophil 0.2 10^3/ uL 0.0 - 0.5 Not Available [facility] Central Scheduling [address] [place], [address], 04/30/2025 10:13:24 04/30/20 25 04/30/2025 CBC-C OMPLE TE basophil 0.1 10^3/ uL 0.0 - 0.2 Not Available [facility] Central Scheduling [address] [place], [address], 04/30/2025 10:13:24 04/30/20 25 04/30/2025 CBC-C OMPLE TE mdw 17.35 0.00 - 20.00 {CD] Not Available [facility] Central Scheduling [address] [place], [address], 04/30/2025 10:13:24 04/30/20 25 04/30/2025 CBC-C OMPLE TE manual diff NOT INDICA MICHELLE Not Available [facility] Central Scheduling [address] [place], [address], 04/30/2025 10:13:24 04/30/20 25 04/30/2025 LACTI C ACID lactic acid 1.22 mmol/ L 0.50 - 2.20 Not Available [facility] Central Scheduling [address] [place], [address], 04/30/2025 10:07:31 05/07/20 25 05/07/2025 EGFR eGFR 56 mL/mi n/1.7 3m? This eGFR is calcu lated using 2020 CKD-E PI Creat inine equat ion witho ut race modif ier based on the NKF-A SN task force recom menda tions . In most healt hy peopl e, the luzmaria l GFR is 90 mL/mi n/1.7 3 m2 or highe r. - A resul t of 60-89 mL/mi n/1.7 3 m2 witho ut kidne y damag e may be luzmaria l in some peopl e (such as the elder ly, infan ts). - A resul t of 60-89 mL/mi n/1.7 3 m2 for three month s or more, along with kidne y damag e (such as persi stent prote in in the urine ), means the perso n has early kidne y disea se. - When the GFR is <60 for three month s or more, chron ic kidne y disea se (CKD) is prese nt. Not Available Sc Only - [facility] [address] [place] [address], [address], 05/07/2025 19:09:14 05/07/20 25 05/07/2025 LPSE lipase,serum 33 u/L 16-77 Not Dalila ilable Sc Only - [facility] [address] [place] [address], [address], 05/07/2025 19:09:12 05/07/20 25 05/07/2025 LDH LD 187 u/L 81-234 Not Available [facility] Only - [facility] [address] [place] [address], [address], 05/07/2025 19:09:10 05/07/20 25 05/07/2025 CMP sodium 142 mmol/ L 135-14 8 Not Available Or Only - [facility] [address] [place] [address], [address], 05/07/2025 19:09:09 05/07/20 25 05/07/2025 CMP potassium 4.2 mmol/ L 3.5-5. 3 Not Available [facility] Only - [facility] [address] [place] [address], [address], 05/07/2025 19:09:09 05/07/20 25 05/07/2025 CMP chloride 107 mmol/ L 96-112 Not Available Or Only - [facility] [address] [place] [address], [address], 05/07/2025 19:09:09 05/07/20 25 05/07/2025 CMP CO2 30 mmol/ L 23-33 Not Available Or Only - [facility] [address] [place] [address], [address], 05/07/2025 19:09:09 05/07/20 25 05/07/2025 CMP BUN 13 mg/dL 7-18 Not Available Or Only - [facility] [address] [place] [address], [address], 05/07/2025 19:09:09 05/07/20 25 05/07/2025 CMP creatinine 1.16 mg/dL 0.55-1 .02 high Not Available Or Only - [facility] [address], [address], 05/07/2025 19:09:09 05/07/20 25 05/07/2025 CMP glucose 101 mg/dL 65-99 high Not Availabl e Or Only - [facility] [address], [address], 05/07/2025 19:09:09 05/07/20 25 05/07/2025 CMP calcium 9.0 mg/dL 8.5-10 .1 Not Available Or Only - [facility] [address], [address], 05/07/2025 19:09:09 05/07/20 25 05/07/2025 CMP total protein 7.0 g/dL 6.4-8. 2 Not Available Or Only - [facility] [address], [address], 05/07/2025 19:09:09 05/07/20 25 05/07/2025 CMP albumin 3.1 g/dL 3.4-5. 0 low Not Available Sc Only - [facility] [address] [place] [address], [address], 05/07/2025 19:09:09 05/07/20 25 05/07/2025 CMP bilirubin (total) 0.6 mg/dL 0.2-1. 0 Not Available Or Only - [facility] [address] [place] [address], [address], 05/07/2025 19:09:09 05/07/20 25 05/07/2025 CMP AST 35 u/L 15-37 Not Available Or Only - [facility] [address] [place] [address], [address], 05/07/2025 19:09:09 05/07/20 25 05/07/2025 CMP alk phos 159 u/L 46-116 high Not Availab le Or Only - [facility] [address] [place] [address], [address], 05/07/2025 19:09:09 05/07/20 25 05/07/2025 CMP ALT 38 u/L 14-59 Not Available Or Only - [facility] [address] [place] [address], [address], 05/07/2025 19:09:09 05/07/20 25 05/07/2025 CMP anion gap 5 mmol/ L 7-16 low Not Available Or Only - [facility] [address] [place] [address], [address], 05/07/2025 19:09:09 05/07/20 25 05/07/2025 DBIL bilirubin (direct) 0.11 mg/dL 0.00-0 .20 Not Available Or Only - [facility] [address] [place] [address], [address], 05/07/2025 19:09:08 05/07/20 25 05/07/2025 CBCW/ DIFF WBC 5.83 x10 3.98-1 0.04 Not Available Or Only - [facility] [address] [place] [address], [address], 05/07/2025 19:09:04 05/07/20 25 05/07/2025 CBCW/ DIFF RBC 3.77 x10 3.93-5 .22 low Not Available Sc Only - [facility] [address] [place] [address], [address], 05/07/2025 19:09:04 05/07/20 25 05/07/2025 CBCW/ DIFF hemoglobin 10.3 g/dL 11.2-1 5.7 low Not Available Sc Only - [facility] [address] [place] [address], [address], 05/07/2025 19:09:04 05/07/20 25 05/07/2025 CBCW/ DIFF hematocrit 32.2 % 34.1-4 4.9 low Not Available Sc Only - [facility] [address] [place] [address], [address], 05/07/2025 19:09:04 05/07/20 25 05/07/2025 CBCW/ DIFF MCV 85.4 fL 79.4-9 4.8 Not Available Sc Only - [facility] [address] [place] [address], [address], 05/07/2025 19:09:04 05/07/20 25 05/07/2025 CBCW/ DIFF MCH 27.3 pg 25.6-3 2.2 Not Available Sc Only - [facility] [address] [place] [address], [address], 05/07/2025 19:09:04 05/07/20 25 05/07/2025 CBCW/ DIFF MCHC 32.0 g/dL 32.2-3 5.5 low Not Available Sc Only - [facility] [address] [place] [address], [address], 05/07/2025 19:09:04 05/07/20 25 05/07/2025 CBCW/ DIFF rdwcv 13.8 % 11.7-1 4.4 Not Available Sc Only - [facility] [address] [place] [address], [address], 05/07/2025 19:09:04 05/07/2005/07/2025 CBCW/ DIFF rdwsd 43.1 fL 36.4-4 6.3 Not Available Sc Only - [facility] [address] [place] [address], [address], 05/07/2025 19:09:04 05/07/20 25 05/07/2025 CBCW/ DIFF platelets 191 x10 182-36 9 Not Available Sc Only - [facility] [address] [place] [address], [address], 05/07/2025 19:09:04 05/07/20 25 05/07/2025 CBCW/ DIFF MPV 10.0 fL 9.4-12 .3 Not Available Sc Only - [facility] [address] [place] [address], [address], 05/07/2025 19:09:04 05/07/20 25 05/07/2025 AUTOD IFF neutrophils 57.2 % 34.0-7 1.1 Not Available Sc Only - [facility] [address] [place] [address], [address], 05/07/2025 19:09:03 05/07/20 25 05/07/2025 AUTOD IFF lymphocytes 25.9 % 19.3-5 1.7 Not Available Sc Only - [facility] [address] [place], [place] [address], [address], 05/07/2025 19:09:03 05/07/20 25 05/07/2025 AUTOD IFF monocytes 11.8 % 4.7-12 .5 Not Available Sc Only - [facility] [address] [place] [address], [address], 05/07/2025 19:09:03 05/07/20 25 05/07/2025 AUTOD IFF eosinophils 3.8 % 0.7-5. 8 Not Available Sc Only - [facility] [address] [place] [address], [address], 05/07/2025 19:09:03 05/07/20 25 05/07/2025 AUTOD IFF basophils 1.0 % 0.1-1. 2 Not Available Sc Only - [address], [address], 05/07/2025 19:09:03 05/07/20 25 05/07/2025 AUTOD IFF imm auto 0.3 % 0.0-1. 5 Not Available Or Only - [address], [address], 05/07/2025 19:09:03 05/07/20 25 05/07/2025 AUTOD IFF NRBC auto 0.0 /100W BC 0.0-0. 2 Not Available Or Only - [address], [address], 05/07/2025 19:09:03 05/07/20 25 05/07/2025 AUTOD IFF absolute neutrophils 3.33 x10 1.56-6 .13 Not Available Sc Only - [address], [address], 05/07/2025 19:09:03 05/07/20 25 05/07/2025 AUTOD IFF absolute lymphocytes 1.51 x10 1.18-3 .74 Not Available Or Only - [address], [address], 05/07/2025 19:09:03 05/07/20 25 05/07/2025 AUTOD IFF absolute monocytes 0.69 x10 0.24-0 .36 high Not Available Or Only - [address], [address], 05/07/2025 19:09:03 05/07/20 25 05/07/2025 AUTOD IFF absolute eosinophils 0.22 x10 0.04-0 .36 Not Available Sc Only - [address], [address], 05/07/2025 19:09:03 05/07/20 25 05/07/2025 AUTOD IFF absolute basophils 0.06 x10 0.01-0 .08 Not Available Or Only - [facility] [address] [place] [address], [address], 05/07/2025 19:09:03 05/07/20 25 05/07/2025 AUTOD IFF imm absolute 0.02 x10 0.00-0 .15 Not Available Or Only - [facility] [address] [place] [address], [address], 05/07/2025 19:09:03 05/07/20 25 05/07/2025 AUTOD IFF NRBC absolute 0.00 x10 0.00-0 .01 Not Available Or Only - [facility] [address] [place] [address], [address], 05/07/2025 19:09:03 05/07/20 25 05/09/2025 C URINE urine culture (new) abnormal Print Date/ Time: 2024 07:42 CDT Patie nt: JANINA WHITE P Micro biolo gy - Uroge nital Legen d: c=Cor recte d, F=Res ult Comme nt, S=Idalia cepti ble, I=Int ermed iate, R=Res istan t, N/A=N ot Appli cable PROCE DURE: Urine Cultu re [] ACCES KHALIDA: [phone] SOURC E: Urine BODY SITE: COLLE CTED DATE/ TIME: 2024 17:03 CDT RECEI ELVA DATE/ TIME: 2024 17:22 CDT START DATE/ TIME: 2024 17:22 CDT FREE TEXT SOURC E: FI NAL REPOR TS Final Repor t [] Verif ied Date/ Time: 2024 07:42 CDT 40,00 0 cfu/m l Mixed presu mptiv e and Prote us speci es NC ELIMI NARY REPOR TS Preli minar y Repor t [] Verif ied Date/ Time: 2024 08:17 CDT 40,00 0 cfu/m l Mixed presu mptiv e and Prote us speci es Not Available Or Only - [address], [address], 05/09/2025 08:43:01 05/07/20 25 05/07/2025 UACS color Pauline Not Available [facility] - [address], [address], 05/07/2025 19:09:16 05/07/2005/07/2025 UACS appearance Clear Not Avail able Or Only [address], [address], 05/07/2025 19:09:16 05/07/2005/07/2025 UACS specific gravity 1.016 1.003- 1.035 Not Available [address], [address], 05/07/2025 19:09:16 05/07/20 25 05/07/2025 UACS pH urine 6.0 5.0-8. 0 Not Available [address], [address], 05/07/2025 19:09:16 05/07/20 25 05/07/2025 UACS protein 1+ abnormal Not Availa ble Or Only - [address], [address], 05/07/2025 19:09:16 05/07/2005/07/2025 UACS urine glucose Negati ve Not Available Or Only [address], [address], 05/07/2025 19:09:16 05/07/20 25 05/07/2025 UACS ketones Negati ve Not Available [address], [address], 05/07/2025 19:09:16 05/07/20 25 05/07/2025 UACS urine bilirubin Negati ve Not Available [facility] [address] [place] [address], [address], 05/07/2025 19:09:16 05/07/20 25 05/07/2025 UACS urine HGB 1+ abnormal Not Avai lable [facility] [address] [place] [address], [address], 05/07/2025 19:09:16 05/07/20 25 05/07/2025 UACS nitrite Positi ve abnormal Not Available [address], [address], 05/07/2025 19:09:16 05/07/20 25 05/07/2025 UACS leukocyte esterase 1+ abnormal Not Available Or On y [address], [address], 05/07/2025 19:09:16 05/07/20 25 05/07/2025 UACS urobilinogen >=4.0 abnormal Refer ence Range : <=1 Not Available [address], [address], 05/07/2025 19:09:16 05/07/20 25 05/07/2025 UACS urine WBCs 26-50 abnormal Refer ence Range : <=5 Not Available [facility] [address] [place] [address], [address], 05/07/2025 19:09:16 05/07/20 25 05/07/2025 UACS urine RBCs 3-5 abnormal Refer ence Range : <=2 Not Available [facility] [address] [place] [address], [address], 05/07/2025 19:09:16 05/07/20 25 05/07/2025 UACS squamous epithelial cells 3+ Refer ence Range : <=3+ Not Available [facility] [address] [place] [address], [address], 05/07/2025 19:09:16 05/07/2005/07/2025 UACS bacteria Trace abnormal Refer ence Range : <=Tra ce, Non-C ath Not Available [facility] - [facility] [address] [place] [address], [address], 05/07/2025 19:09:16 05/07/2005/07/2025 UACS transitional epithelial cells Few Refer ence Range : <=2+ Not Available [facility] - [facility] [address] [place] [address], [address], 05/07/2025 19:09:16 05/07/2005/07/2025 UACS hyaline casts 1 /lpf 0-2 Not Available Or Onl y - [facility] [address] [place] [address], [address], 05/07/2025 19:09:16 05/07/2005/07/2025 UACS UA mucous Presen t Not Available [facility] - [facility] [address] [place] [address], [address], 05/07/2025 19:09:16 05/07/2005/07/2025 UACS urine ascorbic acid Negati ve Ascor bic acid can inter fere with the detec tion of blood , gluco se, and nitri te. Not Available [facility] - [facility] [address] [place] [address], [address], 05/07/2025 19:09:16 05/07/20 25 05/08/2025 C URINE urine culture (new) abnormal Print Date/ Time: 2024 08:17 CDT Patie nt: JANINA WHITE P Micro biolo gy - Uroge nital Legen d: c=Cor recte d, F=Res ult Comme nt, S=Idalia cepti ble, I=Int ermed iate, R=Res istan t, N/A=N ot Appli cable PROCE DURE: Urine Cultu re [] ACCES KHALIDA: [phone] SOURC E: Urine BODY SITE: COLLE CTED DATE/ TIME: 2024 17:03 CDT RECEI ELVA DATE/ TIME: 2024 17:22 CDT START DATE/ TIME: 2024 17:22 CDT FREE TEXT SOURC E: NC ELIMI NARY REPOR TS Preli minar y Repor t [] Verif ied Date/ Time: 2024 08:17 CDT 40,00 0 cfu/m l Mixed presu mptiv e and Prote us speci es Not Available [facility] - [facility] [address] [place] [address], [address], 05/08/2025 09:17:23 05/18/20 25 05/18/2025 LIPAS E lipase 33 U/L 8 - 57 Not Available [facility] - [facility] [address] [place], [address], 05/18/2025 06:33:26 05/18/20 25 05/18/2025 COMPL ETE METAB OLIC PANEL sodium 142 mmol/ L 136 - 145 Not Available [facility] [address] [place], [address], 05/18/2025 06:33:22 05/18/20 25 05/18/2025 COMPL ETE METAB OLIC PANEL potassium 3.6 mmol/ L 3.5 - 5.1 Not Available [facility] [address] [place], [address], 05/18/2025 06:33:22 05/18/20 25 05/18/2025 COMPL ETE METAB OLIC PANEL chloride 111 mmol/ L 98 - 107 high Not Available [facility] - [facility] [address] [place], [address], 05/18/2025 06:33:22 05/18/20 25 05/18/2025 COMPL ETE METAB OLIC PANEL CO2 24 mmol/ L 22 - 28 Not Available Or Only - [facility] [address] [place], [address], 05/18/2025 06:33:22 05/18/20 25 05/18/2025 COMPL ETE METAB OLIC PANEL glucose 132 mg/dL 70 - 105 high Not Available Or Only - [facility] [address] [place], [address], 05/18/2025 06:33:22 05/18/20 25 05/18/2025 COMPL ETE METAB OLIC PANEL BUN 16 mg/dL 7 - 18 Not Available Or Only - [facility] [address] [place], [address], 05/18/2025 06:33:22 05/18/20 25 05/18/2025 COMPL ETE METAB OLIC PANEL creatinine 0.82 mg/dL 0.44 - 1.24 Not Available [facility] - [facility] [address] [place], [address], 05/18/2025 06:33:22 05/18/20 25 05/18/2025 COMPL ETE METAB OLIC PANEL total protein 6.4 g/dL 6.0 - 8.3 Not Available Or Only - [facility] [address] [place], [address], 05/18/2025 06:33:22 05/18/20 25 05/18/2025 COMPL ETE METAB OLIC PANEL albumin 3.4 g/dL 3.5 - 5.0 low Not Available Or Only - [facility] [address] [place], [address], 05/18/2025 06:33:22 05/18/20 25 05/18/2025 COMPL ETE METAB OLIC PANEL T bilirubin 0.5 mg/dL 0.2 - 1.0 Not Available Or Only - [facility] [address] [place], [address], 05/18/2025 06:33:22 05/18/20 25 05/18/2025 COMPL ETE METAB OLIC PANEL SGPT 20 IU/L 10 - 40 Not Available Or Only - [facility] [address] [place], [address], 05/18/2025 06:33:22 05/18/20 25 05/18/2025 COMPL ETE METAB OLIC PANEL alk phos 127 IU/L 32 - 92 high Not Available Or Only - [facility] [address] [place], [address], 05/18/2025 06:33:22 05/18/20 25 05/18/2025 COMPL ETE METAB OLIC PANEL SGOT 23 IU/L 10 - 42 Not Available Or Only - [facility] [address] [place], [address], 05/18/2025 06:33:22 05/18/20 25 05/18/2025 COMPL ETE METAB OLIC PANEL calcium 9.0 mg/dL 8.4 - 10.2 Not Available Or Only - [facility] [address] [place], [address], 05/18/2025 06:33:22 05/18/2005/18/2025 COMPL ETE METAB OLIC PANEL age 54 yr Not Available Or Only - [facility] [address] [place], [address], 05/18/2025 06:33:22 05/18/2005/18/2025 COMPL ETE METAB OLIC PANEL eGFR 85 \BLDo \eGFR INTER PRETI VE TEXT\ BLDx\ This eGFR is calcu lated using 2020 CKD-E PI Creat inine equat ion witho ut race modif ier based on the NKF-A SN task force recom menda tions . In most healt hy peopl e the luzmaria l GFR is 90 mL/mi n/1.7 3 m2 or highe r. A resul t of 60-89 mL/mi n/1.7 3 m2 with kidne y damag e may be luzmaria l in some peopl e(suc h as [...] se(CK D) is prese nt. Not Available Sc Only - [facility] [address] [place], [address], 05/18/2025 06:33:22 05/18/20 25 05/18/2025 CBC-C OMPLE TE WBC 7.0 10^3u L 4.0 - 10.8 Not Available Sc Only - [facility] [address] [place], [address], 05/18/2025 06:15:17 05/18/20 25 05/18/2025 CBC-C OMPLE TE RBC 3.67 10^6u L 3.80 - 5.20 low Not Available Sc Only - [facility] [address] [place], [address], 05/18/2025 06:15:17 05/18/20 25 05/18/2025 CBC-C OMPLE TE hemoglobin 10.2 g/dL 11.7 - 16.0 low Not Available Sc Only - [facility] [address] [place], [address], 05/18/2025 06:15:17 05/18/20 25 05/18/2025 CBC-C OMPLE TE hematocrit 30.4 % 35.0 - 47.0 low Not Available Sc Only - [facility] [address] [place], [address], 05/18/2025 06:15:17 05/18/20 25 05/18/2025 CBC-C OMPLE TE MCV 83 fL 80 - 100 Not Available Sc Only - [facility] [address] [place], [address], 05/18/2025 06:15:17 05/18/20 25 05/18/2025 CBC-C OMPLE TE MCH 28 pg 28 - 33 Not Available Sc Only - [facility] [address] [place], [address], 05/18/2025 06:15:17 05/18/20 25 05/18/2025 CBC-C OMPLE TE MCHC 34 g/dL 32 - 36 Not Available Or Only - [facility] [address] [place], [address], 05/18/2025 06:15:17 05/18/20 25 05/18/2025 CBC-C OMPLE TE RDW 15.0 % 11.5 - 15.5 Not Available Or Only - [facility] [address] [place], [address], 05/18/2025 06:15:17 05/18/2005/18/2025 CBC-C OMPLE TE platelet 204 10^3u L 140 - 440 Not Available Or Only - [facility] [address] [place], [address], 05/18/2025 06:15:17 05/18/2005/18/2025 CBC-C OMPLE TE MPV 7.4 fL 7.5 - 11.0 low Not Available Or Only - [facility] [address] [place], [address], 05/18/2025 06:15:17 05/18/2005/18/2025 CBC-C OMPLE TE %neutrophils 53.2 % 40.0 - 75.0 Not Available Or Only - [facility] [address] [place], [address], 05/18/2025 06:15:17 05/18/2005/18/2025 CBC-C OMPLE TE %lymphocytes 31.5 % 15.0 - 45.0 Not Available Or Only - [facility] [address] [place], [address], 05/18/2025 06:15:17 05/18/2005/18/2025 CBC-C OMPLE TE %monocytes 11.0 % 2.0 - 12.0 Not Available Or Only - [facility] [address] [place], [address], 05/18/2025 06:15:17 05/18/2005/18/2025 CBC-C OMPLE TE %eosinophils 2.9 % 0.0 - 5.0 Not Available Or Only - [facility] [address] [place], [address], 05/18/2025 06:15:17 05/18/2005/18/2025 CBC-C OMPLE TE %basophils 1.4 % 0.0 - 2.0 Not Available Or Only - [facility] [address] [place], [address], 05/18/2025 06:15:17 05/18/2005/18/2025 CBC-C OMPLE TE neutrophil 3.8 10^3/ uL 1.7 - 7.0 Not Available Or Only - [facility] [address] [place], [address], 05/18/2025 06:15:17 05/18/2005/18/2025 CBC-C OMPLE TE lymphocyte 2.2 10^3/ uL 0.9 - 3.7 Not Available Or Only - [facility] [address] [place], [address], 05/18/2025 06:15:17 05/18/2005/18/2025 CBC-C OMPLE TE monocyte 0.8 10^3/ uL 0.2 - 0.8 Not Available Or Only - [facility] [address] [place], [address], 05/18/2025 06:15:17 05/18/2005/18/2025 CBC-C OMPLE TE eosinophil 0.2 10^3/ uL 0.0 - 0.5 Not Available Or Only - [facility] [address] [place], [address], 05/18/2025 06:15:17 05/18/2005/18/2025 CBC-C OMPLE TE basophil 0.1 10^3/ uL 0.0 - 0.2 Not Available Or Only - [facility] [address] [place], [address], 05/18/2025 06:15:17 05/18/2005/18/2025 CBC-C OMPLE TE mdw 16.12 0.00 - 20.00 {CD] Not Available Or Only - [facility] [address] [place], [address], 05/18/2025 06:15:17 05/18/20 25 05/18/2025 CBC-C OMPLE TE manual diff NOT INDICA MICHELLE Not Available Or Only - [facility] [address] [place], [address], 05/18/2025 06:15:17 05/18/2005/18/2025 LACTI C ACID lactic acid 1.05 mmol/ L 0.50 - 2.20 Not Available Or Only - [facility] [address] [place], [address], 05/18/2025 06:12:25 05/18/20 25 05/21/2025 CULTU RE/UR INE results _CULT URE URINE _ Not Available Or Only - [facility] [address] [place], [address], 05/21/2025 08:28:50 05/18/20 25 05/21/2025 CULTU RE/UR INE final report CLEAN CATCH SPECIM EN _>100 ,000_ cfu/m l____ ___ 05/21.0 727.C ML. _MIXE D_GRA M_POS ITIVE _AND_ NEGAT IVE_F LORA_ ___ 05/21.0 727.C ML. SET PREDO MINAN T ORGAN ISMS Micro biolo gy Not Available Or Only - [facility] [address] [place], [address], 05/21/2025 08:28:50 05/18/20 25 05/21/2025 CULTU RE/UR INE results Speci [place] Sourc e [id number] 0001 [facility] ction Date 05/18 [facility] ction Time 04:42 Speci men Note: [place]ce[place] [id number] Exam Statu s Compl etion Date 05/20 Compl etion Time 20:52 Organ ism # 1: Esche veronika a coli (escc ol) 100 000 cfu/m L Organ ism # 2: Prote us mirab ilis (prom ir) 100 000 cfu/m L Antib iotic s escco l(1) promi r(2) ESBL Neg N Ampic illin >=32 R Ampic illin /Sulb actam 16 I Piper acill in/Ta zobac nj <=4 S Cefaz antoni 4 I Cefta zidim e <=0.5 S Ceftr iaxon e <=0.2 5 S Cefep blayne <=0.1 2 S Ertap enem <=0.1 2 S Merop enem <=0.2 5 S Genta micin <=1 S Cipro floxa walter 1 S Levof loxac in 1 I Nitro furan toin <=16 S Trime thopr im/Cole lfame thox >=320 R Cefpo doxim e <=0.2 5 S Tobra mycin <=1 S S = SUSCE PTIBL E I = INTER MEDIA TE R = RESIS TANT 05/21.0 727.C ML. 05/21.0 728.C ML.CO MPLET E CLEAN CATCH SPECI MEN SET PREDO MINAN T ORGAN ISMS Not Available Or Only - [facility] [address] [place], [address], 05/21/2025 08:28:50 05/18/20 25 05/18/2025 URINA LYSIS color YELLOW normal : yellow Not Available Or Only - [facility] [address] [place], [address], 05/18/2025 06:03:49 05/18/20 25 05/18/2025 URINA LYSIS character HAZY normal : clear Not Available Or Only - [facility] [address] [place], [address], 05/18/2025 06:03:49 05/18/20 25 05/18/2025 URINA LYSIS spec. grav 1.015 normal : 1.003- 1.029 Not Available Or Only - [facility] [address] [place], [address], 05/18/2025 06:03:49 05/18/20 25 05/18/2025 URINA LYSIS pH 7.0 normal : 4.5 - 7.8 Not Available Or Only - [facility] [address] [place], [address], 05/18/2025 06:03:49 05/18/20 25 05/18/2025 URINA LYSIS leukocytes 2+ normal : negati ve Not Available Or Only - [facility] [address] [place], [address], 05/18/2025 06:03:49 05/18/2005/18/2025 URINA LYSIS nitrite NEGATI VE normal : negati ve Not Available Or Only - [facility] [address] [place], [address], 05/18/2025 06:03:49 05/18/2005/18/2025 URINA LYSIS protein NEGATI VE normal : negati ve Not Available Or Only - [facility] [address] [place], [address], 05/18/2025 06:03:49 05/18/2005/18/2025 URINA LYSIS glucose NEGATI VE normal : negati ve Not Available Or Only - [facility] [address] [place], [address], 05/18/2025 06:03:49 05/18/2005/18/2025 URINA LYSIS ketones NEGATI VE normal : negati ve Not Available Or Only - [facility] [address] [place], [address], 05/18/2025 06:03:49 05/18/20 25 05/18/2025 URINA LYSIS urobilinogen 0.2 normal : 0.2 - 1.0 Not Available Or Only - [facility] [address] [place], [address], 05/18/2025 06:03:49 05/18/20 25 05/18/2025 URINA LYSIS bilirubin NEGATI VE normal : negati ve Not Available Or Only - [facility] [address] [place], [address], 05/18/2025 06:03:49 05/18/20 25 05/18/2025 URINA LYSIS blood NEGATI VE normal : negati ve MICRO SCOPI C Not Available Or Only - [facility] [address] [place], [address], 05/18/2025 06:03:49 05/18/20 25 05/18/2025 URINA LYSIS WBC/hpf 20-30 normal : 0-5 hpf CULTU RE TO FOLLO W PER [place] Not Available Or Only - [facility] [address] [place], [address], 05/18/2025 06:03:49 05/18/20 25 05/18/2025 URINA LYSIS RBC/hpf 5-10 normal : 0-3 hpf Not Available Or Only - [facility] [address] [place], [address], 05/18/2025 06:03:49 05/18/20 25 05/18/2025 URINA LYSIS epith/hpf 30-50 normal : 0-5 hpf Not Available Or Only - [facility] [address] [place], [address], 05/18/2025 06:03:49 05/18/20 25 05/18/2025 URINA LYSIS cast/lpf NONE SEEN normal : 0-4 lpf Not Available Or Only - [facility] [address] [place], [address], 05/18/2025 06:03:49 05/18/20 25 05/18/2025 URINA LYSIS crystals NONE SEEN normal : negati ve Not Available Or Only - [facility] [address] [place], [address], 05/18/2025 06:03:49 05/18/20 25 05/18/2025 URINA LYSIS bacteria 1+ normal : negati ve abnormal Not Available Or Only - [facility] [address] [place], [address], 05/18/2025 06:03:49 05/18/20 25 05/18/2025 URINA LYSIS other MUCUS 1+ Not Available Or Only - [facility] [address] [place], [address], 05/18/2025 06:03:49 05/26/2005/26/2025 UACS color Yellow Not Available Or Only - [address], [address], 05/26/2025 09:18:45 05/26/20 25 05/26/2025 UACS appearance Clear Not Avail able Or Only - [address], [address], 05/26/2025 09:18:45 05/26/20 25 05/26/2025 UACS specific gravity 1.013 1.003- 1.030 Not Available Or Only - [address], [address], 05/26/2025 09:18:45 05/26/20 25 05/26/2025 UACS pH urine 6.0 4.5-7. 5 Not Available Or Only - [address], [address], 05/26/2025 09:18:45 05/26/20 25 05/26/2025 UACS protein 30 abnormal Not Availa ble Or Only - [address], [address], 05/26/2025 09:18:45 05/26/20 25 05/26/2025 UACS urine glucose Negati ve Not Available Or Only - [address], [address], 05/26/2025 09:18:45 05/26/20 25 05/26/2025 UACS ketones Negati ve Not Available Or Only - [facility] [address] [place] [address], [address], 05/26/2025 09:18:45 05/26/20 25 05/26/2025 UACS urine bilirubin Negati ve Not Available Or Only - [facility] [address] [place] [address], [address], 05/26/2025 09:18:45 05/26/20 25 05/26/2025 UACS urine HGB Negati ve Not Available [facility] - [facility] [address] [place] [address], [address], 05/26/2025 09:18:45 05/26/20 25 05/26/2025 UACS nitrite Negati ve Not Available Or Only - [facility] [address] [place] [address], [address], 05/26/2025 09:18:45 05/26/20 25 05/26/2025 UACS leukocyte esterase Large abnormal Not Available Or Onl y - [facility] [address] [place] [address], [address], 05/26/2025 09:18:45 05/26/20 25 05/26/2025 UACS urobilinogen Normal Not Dalila ilable Or Only - [facility] [address] [place] [address], [address], 05/26/2025 09:18:45 05/26/20 25 05/26/2025 UACS urine WBCs 10 /hpf 0-4 high Not Avail able [facility] [address] [place] [address], [address], 05/26/2025 09:18:45 05/26/20 25 05/26/2025 UACS urine RBCs 1 /hpf 0-2 Not Avail able [facility] - [facility] [address] [place] [address], [address], 05/26/2025 09:18:45 05/26/20 25 05/26/2025 UACS squamous epithelial cells 6 /hpf 0-[address] [facility] [address] [place] [address], [address], 05/26/2025 09:18:45 05/26/20 25 05/26/2025 UACS bacteria Occasi onal abnormal Not Available [facility] [address] [place] [address], [address], 05/26/2025 09:18:45 05/26/20 25 05/26/2025 UACS transitional epithelial cells 1 /hpf 0-[address] [facility] [address] [place] [address], [address], 05/26/2025 09:18:45 05/26/20 25 05/27/2025 C URINE urine culture (new) abnormal Print Date/ Time: 2024 13:07 CDT Patie nt: JANINA WHITE P Micro biolo gy - Uroge nital Legen d: c=Cor recte d, F=Res ult Comme nt, S=Idalia cepti ble, I=Int ermed iate, R=Res istan t, N/A=N ot Appli cable PROCE DURE: Urine Cultu re [] ACCES KHALIDA: 25-25 [phone] SOURC E: Urine BODY SITE: COLLE CTED DATE/ TIME: 2024 05:28 CDT RECEI ELVA DATE/ TIME: 2024 09:13 CDT START DATE/ TIME: 2024 09:13 CDT FREE TEXT SOURC E: FI NAL REPOR TS Final Repor t [] Verif ied Date/ Time: 2024 13:07 CDT Moder ate proba ble conta minan ts inclu din,00 0 cfu/m l Prote us speci es A low count of this bacte rium is repor michelle becau se a Posit marquis leuko cyte zohra ase has been noted . Pleas e notif y a Micro biolo gist if furth er work- up is neede d. Not Available Or Only - [facility] [address] [place] [address], [id number], 05/27/2025 14:07:20 05/26/20 25 05/26/2025 BN PEPTI DE BNP 18 pg/mL 0-72 Not Available Or Only - [facility] [address] [place] [address], [id number], 05/26/2025 08:08:43 05/26/20 25 05/26/2025 DIMER D-dimer test 0.45 mcg/m L <=0.50 D-Dim ers are the resul t of fibri nolyt ic break down of cross -link ed fibri n. Lawrence tions indic ate incre ased fibri nolys is and are non-s pecif ic. Resul ts shoul d be used in conju nctio n with algor ithms for prete st proba bilit y of a throm botic event . A value of less than 0.50 mcg/m L in conju nctio n with a low clini radha proba bilit y has >95% negat marquis predi ctive value . Luzmaria l value s in situa tions of moder ate or high clini radha proba bilit y shoul d be inter prete d with cauti on. mcg/m L = fibri nogen equiv alent units (feu) Not Available Or Only - [facility] [address] [place] [address], [id number], 05/26/2025 07:28:09 05/26/2005/26/2025 HSTRO P high sensitivity troponin I 5.4 pg/mL <=12.0 Tropo harry Inter preti ve Comme nt: Indet ermin ate Tropo harry Range : Femal e: > 12 to <= 75 pg/mL Male: > 20 to <= 100 pg/mL Criti radha Tropo harry Range : Femal e: > 75 pg/mL Male: > 100 pg/mL If hsTro ponin resul t is in the indet ermin ate range , acces s the hsTro ponin algor ithm from the Clini radha Pathw ay tab on Table of [place] nts and calcu late the delta . Not Available Sc Only - [facility] [address] [address] [place] [address], [address]60[address], 05/26/2025 07:13:31 05/26/20 25 05/26/2025 EGFR eGFR 54 mL/mi n/1.7 3m? This eGFR is calcu lated using the 2020 CKD-E PI Creat inine equat ion witho ut race modif ier. In most healt hy peopl e, the luzmaria l GFR is 90 mL/mi n/1.7 3 m2 or highe r. A resul t of 60 - 89 mL/mi n/1.7 3 m2 witho ut kidne y damag e may be luzmaria l in some peopl e (such as the elder ly, infan ts). A resul t of 60 - 89 mL/mi n/1.7 3 m2 for three month s or more, along with kidne y damag e (such as persi stent prote in in the urine ), means the perso n has early kidne y disea se. When GFR is <60 for three month s or more, chron ic kidne y disea se(CK D) is prese nt. Not Available Sc Only - [facility] [address] [place] [address], 27542, 05/26/2025 07:10:12 05/26/20 25 05/26/2025 MG magnesium 1.8 mg/dL 1.9-2. 7 low Not Available Sc Only - [facility] [address] [place] [address], 90648, 05/26/2025 07:10:11 05/26/20 25 05/26/2025 CMP sodium 137 mmol/ L 136-14 5 Not Available Sc Only - [facility] [address] [place] [address], 47650, 05/26/2025 07:10:10 05/26/20 25 05/26/2025 CMP potassium 3.9 mmol/ L 3.5-5. 1 Not Available Sc Only - [facility] [address] [place] [address] [place], [address], 05/26/2025 07:10:10 05/26/2005/26/2025 CMP chloride 104 mmol/ L 98-107 Not Available [facility] [address] [place] [address], 06026, 05/26/2025 07:10:10 05/26/2005/26/2025 CMP CO2 24 mmol/ L 21-31 Not Available [facility] [address] [place] [address], 46055, 05/26/2025 07:10:10 05/26/2005/26/2025 CMP BUN 19 mg/dL 7-25 Not Available [facility] [address] [place] [address], 07988, 05/26/2025 07:10:10 05/26/2005/26/2025 CMP creatinine 1.2 mg/dL 0.6-1. 3 Not Available [facility] [address] [place] [address], 62971, 05/26/2025 07:10:10 05/26/2005/26/2025 CMP glucose 164 mg/dL 70-105 high Not Availabl e [facility] [address] [place] [address], 81359, 05/26/2025 07:10:10 05/26/2005/26/2025 CMP calcium 9.4 mg/dL 8.6-10 .3 Not Available Or Only [facility] [address] [place] [address], 15836, 05/26/2025 07:10:10 05/26/2005/26/2025 CMP total protein 6.7 gm/dL 6.0-8. 3 Not Available Or Only [facility] [address] [place] [address], 23265, 05/26/2025 07:10:10 05/26/2005/26/2025 CMP albumin 4.0 gm/dL 3.5-5. 7 Not Available Or Only - [address], [address], 05/26/2025 07:10:10 05/26/2005/26/2025 CMP bilirubin (total) 0.7 mg/dL 0.3-1. 0 Not Available Or Only - [address], [address], 05/26/2025 07:10:10 05/26/2005/26/2025 CMP AST 23 IU/L 13-39 Not Available Or Only - [address], 34[address], 05/26/2025 07:10:10 05/26/2005/26/2025 CMP alk phos 135 IU/L 34-104 high Not Availab le [facility] - [address], [address], 05/26/2025 07:10:10 05/26/2005/26/2025 CMP ALT 16 IU/L 7-52 Not Available [facility] - [address], 801[address], 05/26/2025 07:10:10 05/26/2005/26/2025 CMP anion gap 9 8-16 Anion gap calcu lated using formu la: Na - (Cl + CO2) Measu red total CO2 is used in place of HCO3 Not Available [facility] - [address], [address], 05/26/2025 07:10:10 05/26/2005/26/2025 DIFF neutrophils 60 % 47-67 Not Avai lable Or Only - [address], 738[address], 05/26/2025 06:44:31 05/26/2005/26/2025 DIFF lymphocytes 27 % 25-45 Not Avai lable Or Only - [address], 14638, 05/26/2025 06:44:31 05/26/2005/26/2025 DIFF monocytes 9 % 1-9 Not Availa ble Or Only - [address], 894[address], 05/26/2025 06:44:31 05/26/2005/26/2025 DIFF eosinophils 3 % 0-6 Not Avai lable Or Only - [address], 39220, 05/26/2025 06:44:31 05/26/2005/26/2025 DIFF basophils 1 % 0-2 Not Availa ble Or Only - [address], 44[address], 05/26/2025 06:44:31 05/26/2005/26/2025 DIFF absolute neutrophils 5.1 K/cum m 1.8-6. 5 Not Available Or Only - [address], 05019, 05/26/2025 06:44:31 05/26/2005/26/2025 DIFF absolute lymphocytes 2.2 K/cum m 0.9-3. 0 Not Available Or Only - [address], 19195, 05/26/2025 06:44:31 05/26/2005/26/2025 DIFF absolute monocytes 0.8 K/cum m 0.2-0. 8 Not Available Or Only - [address], 46[address], 05/26/2025 06:44:31 05/26/2005/26/2025 DIFF absolute eosinophils 0.3 K/cum m 0.0-0. 4 Not Available Or Only - [address], 03003, 05/26/2025 06:44:31 05/26/2005/26/2025 DIFF absolute basophils 0.1 K/cum m 0.0-0. 2 Not Available Sc Only - [facility] [address] [place] [address], 73327, 05/26/2025 06:44:31 05/26/2005/26/2025 CBC W/ AUTO DIFF WBC 8.4 K/cum m 3.4-9. 4 Not Available Or Only - [facility] [address] [place] [address], 14560, 05/26/2025 06:44:29 05/26/2005/26/2025 CBC W/ AUTO DIFF RBC 4.05 M/cum m 4.20-5 .40 low Not Available Or Only - [facility] [address] [place] [address], 24000, 05/26/2025 06:44:29 05/26/2005/26/2025 CBC W/ AUTO DIFF hemoglobin 11.2 gm/dL 12.0-1 6.0 low Not Available Or Only - [facility] [address] [place] [address], 50536, 05/26/2025 06:44:29 05/26/2005/26/2025 CBC W/ AUTO DIFF hematocrit 33 % 37-47 low Not Available Or Only - [facility] [address] [place] [address], 09694, 05/26/2025 06:44:29 05/26/2005/26/2025 CBC W/ AUTO DIFF MCV 81 81-94 Not Available Or Only - [facility] [address] [place] [address], 04392, 05/26/2025 06:44:29 05/26/2005/26/2025 CBC W/ AUTO DIFF MCH 27.6 pg 27.5-3 3.2 Not Available Sc Only - [facility] [address] [place] [address], 14952, 05/26/2025 06:44:29 05/26/2005/26/2025 CBC W/ AUTO DIFF MCHC 34.0 g/dL 31.0-3 6.0 Not Available Or Only - [address], 21723, 05/26/2025 06:44:29 05/26/20 25 05/26/2025 CBC W/ AUTO DIFF RDW 14.4 % 11.7-1 5.5 Not Available Or Only - [address], 43483, 05/26/2025 06:44:29 05/26/20 25 05/26/2025 CBC W/ AUTO DIFF platelets 280 K/cum m 140-41 0 Not Available Or Only - [address], 34423, 05/26/2025 06:44:29 05/26/20 25 05/26/2025 CBC W/ AUTO DIFF MPV 8.4 mL Not Available Or Only - [address], 56342, 05/26/2025 06:44:29 06/07/20 25 06/07/2025 CBC CBC Not Available [facility] [address] [place] [address], 34080, 06/07/2025 19:14:12 06/07/20 25 06/07/2025 CBC WBC 5.9 K/uL 3.8-11 .2 Not Available [facility] - [facility] [address] [place] [address], 26052, 06/07/2025 19:14:12 06/07/20 25 06/07/2025 CBC RBC 4.18 M/uL 3.92-5 .10 Not Available [facility] - [facility] [address] [place] [address], 82358, 06/07/2025 19:14:12 06/07/20 25 06/07/2025 CBC HGB 11.5 g/dL 11.8-1 5.3 low Not Available [facility] Only - [facility] [address] [place] [address], 79719, 06/07/2025 19:14:12 06/07/2006/07/2025 CBC HCT 35.2 % 36.5-4 4.8 low Not Available [facility] - [facility] [address] [place] [address], 18015, 06/07/2025 19:14:12 06/07/2006/07/2025 CBC MCV 84.2 fL 80.0-9 9.0 Not Available [facility] - [facility] [address] [place] [address], 95985, 06/07/2025 19:14:12 06/07/2006/07/2025 CBC MCH 27.5 pg 25.5-3 3.6 Not Available [facility] Only - [facility] [address] [place] [address], 68367, 06/07/2025 19:14:12 06/07/2006/07/2025 CBC MCHC 32.7 g/dL 32.0-3 6.0 Not Available [facility] Only - [facility] [address] [place] [address], 19868, 06/07/2025 19:14:12 06/07/2006/07/2025 CBC RDW-SD 39.6 fL 35.1 - 46.3 Not Available [facility] Only - [facility] [address] [place] [address], 85993, 06/07/2025 19:14:12 06/07/2006/07/2025 CBC plt 272 K/uL 130-40 0 Not Available [facility] Only - [facility] [address] [place] [address], 21503, 06/07/2025 19:14:12 06/07/2006/07/2025 CBC MPV 9.9 fL 9.3-12 .8 Not Available [facility] Only - [facility] [address] [place] [address], 79585, 06/07/2025 19:14:12 06/07/20 25 06/07/2025 urina lysis , compl ete urinalysis, complete LOW LEVEL S OF HEMOG LOBIN IN ABSEN CE OF HEMAT URIA MAY NOT BE CLINI MARCOS ALETAI PAOLA T. Not Available [facility] Only - [facility] [address] [place] [address], 59777, 06/07/2025 19:21:12 06/07/2006/07/2025 urina lysis , compl ete color DARK YELLOW Dipst ick may be inacc urate due to the color of the urine Not Available [facility] Only - [facility] [address] [place] [address], 47332, 06/07/2025 19:21:12 06/07/2006/07/2025 urina lysis , compl ete clarity CLEAR Not Available [facility] [address] [place] [address], 58026, 06/07/2025 19:21:12 06/07/2006/07/2025 urina lysis , compl ete pH 7.0 5.0-7. 5 Not Available [facility] [address] [place] [address], 95863, 06/07/2025 19:21:12 06/07/2006/07/2025 urina lysis , compl ete specific gravity 1.010 1.000- 1.030 Not Available [facility] [address] [place] [address], 86413, 06/07/2025 19:21:12 06/07/2006/07/2025 urina lysis , compl ete blood NEGATI VE negati ve Not Available [facility] Only - [facility] [address] [place] [address], 80341, 06/07/2025 19:21:12 06/07/2006/07/2025 urina lysis , compl ete bilirubin NEGATI VE negati ve Not Available [facility] Only - [facility] [address] [place] [address], 91022, 06/07/2025 19:21:12 06/07/2006/07/2025 urina lysis , compl ete urobilinogen 1.0 0.2-1. 0 Not Available [facility] Only - [facility] [address] [place] [address], 88993, 06/07/2025 19:21:12 06/07/20 25 06/07/2025 urina lysis , compl ete ketone NEGATI VE negati ve Not Available [facility] Only - [facility] [address] [place] [address], 70955, 06/07/2025 19:21:12 06/07/20 25 06/07/2025 urina lysis , compl ete glucose NEGATI VE negati ve Not Available [facility] Only - [facility] [address] [place] [address], 37829, 06/07/2025 19:21:12 06/07/20 25 06/07/2025 urina lysis , compl ete protein NEGATI VE negati ve Not Available [facility] Only - [facility] [address] [place] [address], 77395, 06/07/2025 19:21:12 06/07/2006/07/2025 urina lysis , compl ete nitrite POSITI VE negati ve abnormal Not Available [facility] Only - [facility] [address] [place] [address], 34310, 06/07/2025 19:21:12 06/07/2006/07/2025 urina lysis , compl ete leukocytes 1+ negati ve abnormal Not Available [facility] Only - [facility] [address] [place] [address], 35016, 06/07/2025 19:21:12 06/07/20 25 06/07/2025 urina lysis , compl ete review * Micro scopi c resul ts revie wed by Techn [facility] Not Available Or Only - [facility] [address] [place] [address], 42619, 06/07/2025 19:21:12 06/07/20 25 06/07/2025 urina lysis , compl ete RBC 0-2 0-2/hp f Not Available [facility] Only - [facility] [address] [place] [address], 32893, 06/07/2025 19:21:12 06/07/20 25 06/07/2025 urina lysis , compl ete WBC 0-5 0-5/hp f Not Available [facility] Only - [facility] [address] [place] [address], 75812, 06/07/2025 19:21:12 06/07/20 25 06/07/2025 urina lysis , compl ete WBC. CONFI Cell count s confi rmed by Techn ologi st. Not Available Or Only - [facility] [address] [place] [address], 14336, 06/07/2025 19:21:12 06/07/20 25 06/07/2025 urina lysis , compl ete squamous epithelial 3-5 0-10/h pf Not Available [facility] Only - [facility] [address] [place] [address], 88717, 06/07/2025 19:21:12 06/07/20 25 06/07/2025 urina lysis , compl ete bacteria NONE SEEN none Not Available Or Only - [facility] [address] [place] [address], 51137, 06/07/2025 19:21:12 06/07/20 25 06/07/2025 urina lysis , compl ete hyaline cast 0-2 0-2/lp f Not Available [facility] Only - [facility] [address] [place] [address], 10636, 06/07/2025 19:21:12 06/07/20 25 06/07/2025 renal funct ion panel , serum renal function panel Not Available Or Onl y - [facility] [address] [place] [address], 61010, 06/07/2025 19:42:24 06/07/20 25 06/07/2025 renal funct ion panel , serum sodium 140 mmol/ L 136-14 6 Not Available [facility] Only - [facility] [address] [place] [address], 46051, 06/07/2025 19:42:24 06/07/20 25 06/07/2025 renal funct ion panel , serum potassium 4.0 mmol/ L 3.5-5. 1 Not Available [facility] Only - [facility] [address] [place] [address], 35320, 06/07/2025 19:42:24 06/07/20 25 06/07/2025 renal funct ion panel , serum chloride 106 mmol/ L 98-110 Not Available [facility] Only - [facility] [address] [place] [address], 16124, 06/07/2025 19:42:24 06/07/20 25 06/07/2025 renal funct ion panel , serum CO2 25 mEq/L 20-32 Not Available [facility] Only - [facility] [address] [place] [address], 79844, 06/07/2025 19:42:24 06/07/20 25 06/07/2025 renal funct ion panel , serum anion gap 13 mmol/ L 10-22 Not Available [facility] Only - [facility] [address] [place] [address], 43703, 06/07/2025 19:42:24 06/07/20 25 06/07/2025 renal funct ion panel , serum glucose 188 mg/dL 70-100 high Not Available [facility] Only - [facility] [address] [place] [address], 81204, 06/07/2025 19:42:24 06/07/20 25 06/07/2025 renal funct ion panel , serum calcium 9.5 mg/dL 8.4-10 .4 Not Available [facility] Only - [facility] [address] [place] [address], 33643, 06/07/2025 19:42:24 06/07/20 25 06/07/2025 renal funct ion panel , serum albumin 4.1 g/dL 3.5-5. 3 Not Available [facility] Only - [facility] [address] [place] [address], 41686, 06/07/2025 19:42:24 06/07/2006/07/2025 renal funct ion panel , serum phosphorus 3.1 mg/dL 2.7-4. 5 Not Available [facility] Only - [facility] [address] [place] [address], 00657, 06/07/2025 19:42:24 06/07/2006/07/2025 renal funct ion panel , serum BUN 15 mg/dL 7-21 Not Available [facility] Only - [facility] [address] [place] [address], 49270, 06/07/2025 19:42:24 06/07/2006/07/2025 renal funct ion panel , serum creatinine 0.9 mg/dL 0.7-1. 3 Not Available [facility] Only - [facility] [address] [place] [address], 13383, 06/07/2025 19:42:24 06/07/2006/07/2025 renal funct ion panel , serum CKD-epi GFR 76 eGFR was calcu lated using the 2020 CKD-E PI equat ion. (Coat Examiner andree Kidne y Disea se has an eGFR less than 60 mL/mi n/1.7 3mm for a perio d of three month s or more. ) This calcu latio n has not been valid ated for patie nt ages <18 or >90 years old. Not Available [facility] Only - [facility] [address] [place] [address], 52807, 06/07/2025 19:42:24 06/07/20 25 06/08/2025 micro album in, urine microalbumin ,random panel Not Available Or Onl [facility] - [facility] [address] [place] [address], 67234, 06/08/2025 10:13:00 06/07/20 25 06/08/2025 micro album in, urine microalbumin random 0.5 mg/dL Not Available Or On y - [facility] [address] [place] [address], 03270, 06/08/2025 10:13:00 06/07/20 25 06/08/2025 micro album in, urine creatinine, urine random 37 mg/dL Refer ence range not estab lishe d for other than 24 hour colle ction . Not Available Or Only - [facility] [address] [place] [address], 29964, 06/08/2025 10:13:00 06/07/20 25 06/08/2025 micro album in, urine microalb/cre at ratio 14 ug/mg (Micr oalbu min/C reati nine Ratio : Luzmaria l: <30 UG/MG Creat Micro album inuri a: 30-30 0 UG/MG Creat Clini radha Album inuri a: >300 UG/MG Creat The class ifica tion of a patie nt's prote inuri a shoul d be based upon at least 2 or 3 abnor mal resul ts colle cted withi n a 3 to 6 month time frame . *No luzmaria l range s have been estab lishe d for rando m Micro album in or Creat inine .) Not Available [facility] Only - [facility] [address] [place] [address], 36301, 06/08/2025 10:13:00 06/07/20 25 06/08/2025 C4 (comp lemen t), serum or plasm a complement C4 44 mg/dL 12-38 high Not Available [facility] [address] [place] [address], 96464, 06/08/2025 14:11:19 06/07/20 25 06/08/2025 C3 (comp lemen t), serum or plasm a complement C3 201 mg/dL 82-167 high Not Available Or Onl [facility] - [facility] [address] [place] [address], 90550, 06/08/2025 14:11:20 06/07/20 25 06/08/2025 ADALBERTO (anti nucle ar antib odies ) scree n, serum ADALBERTO screen NEGATI VE negati ve Perfo rmed by Bio-R ad enzym e immun oassa y Not Available Or Only - [facility] [address] [place] [address], 41460, 06/08/2025 15:48:52 06/07/20 25 06/09/2025 cultu re + sensi tivit y, urine urine culture and sens. JENNIFER L URINE ESCHE VERONIKA A COLI DATE/ TIME: 06/09 08:45 >100, 000 CFU/m L Antib iotic Name MARILYN mcg/m l Ampic illin >16 R Amoxi cilli n/K Clavu lanat e <=8/4 S Ceftr iaxon e <=1 S Cefox itin <=8 S Cefaz antoni 4 I Cipro floxa walter 1 R Cefep blayne <=2 S Nitro furan toin <=32 S Genta micin <=2 S Trime thopr im/Cole lfmet hoxaz >2/38 R Tetra cycli ne <=4 S Tobra mycin <=2 S S=Idalia cepti ble R=Res istan t I=Int ermed iate IB=Sp ecies poten tiall y may becom e resis tant to all B-lac nj drugs . Patie nt monit oring recom nate d. Avoid other /comb ined B-lac nj drugs . ESB=E xtend ed spect rum Beta- lacta justin (ESBL ) R*=Pr edict ed resis tant inter preta tion Not Available Or Only - [facility] [address], [address], 06/09/2025 09:46:55 06/07/20 25 06/09/2025 immun ofixa tion, serum immunofixati on, serum No monoc lonal ity detec michelle. Not Available [facility] Only - [facility] [address] [place] [address], 91351, 06/09/2025 15:12:43 06/07/2006/09/2025 immun ofixa tion, serum IgG quantitative 1147 mg/dL 586-16 02 Not Available [facility] Only - [facility] [address] [place] [address], 86715, 06/09/2025 15:12:43 06/07/20 25 06/09/2025 immun ofixa tion, serum IgA quantitative 393 mg/dL 87-352 high Not Available [facility] Only - [facility] [address] [place] [address], 46693, 06/09/2025 15:12:43 06/07/2006/09/2025 immun ofixa tion, serum IgM quantitative 80 mg/dL 26-217 Not Available [facility] Only - [facility] [address] [place] [address], 08132, 06/09/2025 15:12:43 06/07/2006/12/2025 anca panel , serum anca, complete Not Available Or Onl [facility] - [facility] [address] [place] [address], 56064, 06/12/2025 20:10:54 06/07/2006/12/2025 anca panel , serum myeloperoxid ase Ab <0.2 units 0.0-0. 9 Not Available Or Only - [facility] [address] [place] [address], 26993, 06/12/2025 20:10:54 06/07/2006/12/2025 anca panel , serum proteinase-3 Ab, anca <0.2 units 0.0-0. 9 Not Available Or Only - [facility] [address] [place] [address], 33656, 06/12/2025 20:10:54 06/07/20 25 06/12/2025 anca panel , serum C-anca titer <1:20 titer neg:<1 :20 Not Available Or Only - [facility] [address] [place] [address], 28152, 06/12/2025 20:10:54 06/07/2006/12/2025 anca panel , serum P-anca titer <1:20 titer neg:<1 :20 The prese nce of posit marquis fluor escen ce exhib iting P-ANC A or C-ANC A patte rns alone is not speci fic for the diagn osis of Wegen er's Granu lomat osis (WG) or micro scopi c polya ngiit is. Decis ions about treat ment shoul d not be based solel y on ANCA IFA resul ts. The Inter natio nal [employer] nsus recom mends follo w up testi ng of posit marquis sera with both NC-3 and MPO-A NCA enzym e immun oassa ys. As many as 5% serum sampl es are posit marquis only by EIA. Ref. AM J Clin Patho l 1999; 111:5 07-51 3. Not Available Or Only - [facility] [address] [place] [address], 81820, 06/12/2025 20:10:54 06/07/2006/12/2025 anca panel , serum atypical P anca titer <1:20 titer neg:<1 :20 The atypi radha pANCA patte rn has been obser elva in a signi fican t perce ntage of patie nts with ulcer ative colit is, prima ry scler osing chola ngiti s and autoi mmune hepat itis. Not Available Or Only - [facility] [address] [place] [address], 16349, 06/12/2025 20:10:54 06/07/2006/07/2025 UE urine eosinophils NEGATI VE Not Available Or Only - [facility] [address] [place] [address], [place], [address], 06/07/2025 23:40:52 06/07/20 25 06/08/2025 cultu re + sensi tivit y, urine urine culture and sens. PREL IM URINE GRAM NEGAT MARQUIS RODS DATE/ TIME: 06/08 10:17 >100, 000 CFU/m L Not Available Or Only - [facility] [address], [address], 06/08/2025 11:18:58 06/18/20 25 06/20/2025 C URINE urine culture (new) abnormal Print Date/ Time: 2024 10:46 CDT Patie nt: ZEKE, KATLEESA EEN P Micro biolo gy - Uroge nital Legen d: c=Cor recte d, F=Res ult Comme nt, S=Idalia cepti ble, I=Int ermed iate, R=Res istan t, N/A=N ot Appli cable PROCE DURE: Urine Cultu re [] ACCES KHALIDA: [phone] SOURC E: Urine BODY SITE: COLLE CTED DATE/ TIME: 2024 15:21 CDT RECEI ELVA DATE/ TIME: 2024 19:13 CDT START DATE/ TIME: 2024 19:13 CDT FREE TEXT SOURC E: FI NAL REPOR TS Final Repor t [] Verif ied Date/ Time: 2024 10:46 CDT Moder ate proba ble conta minan ts inclu din,00 0 cfu/m l Gram Negat marquis Rods Sensi tivit y will not be perfo rmed; pleas e consu lt a Micro biolo gist if furth er work- up is neede d. NC ELIMI NARY REPOR TS Preli minar y Repor t [] Verif ied Date/ Time: 2024 14:19 CDT Moder ate proba ble conta minan ts inclu din,00 0 cfu/m l Gram Negat marquis Rods Cultu re reinc ubate d Not Available Or Only - [facility] [address], [address], 06/20/2025 11:46:50 10/01/31 2506/18/2025 UACS color Pauline Not Available Or Only - [facility] [address], [address], 06/18/2025 17:21:53 06/18/2006/18/2025 UACS appearance Clear Not Avail able Or Only - [facility] [address], [address], 06/18/2025 17:21:53 06/18/2006/18/2025 UACS specific gravity 1.012 1.003- 1.030 Not Available Or Only - [facility] [address] [place] [address], 85850, 06/18/2025 17:21:53 06/18/2006/18/2025 UACS pH urine 6.0 4.5-7. 5 Not Available Or Only - [facility] [address] [place] [address], 46876, 06/18/2025 17:21:53 06/18/2006/18/2025 UACS protein 30 abnormal Not Availa ble Or Only - [facility] [address] [place] [address], 74750, 06/18/2025 17:21:53 06/18/2006/18/2025 UACS urine glucose Negati ve Not Available Or Only - [facility] [address] [place] [address], 00694, 06/18/2025 17:21:53 06/18/2006/18/2025 UACS ketones Negati ve Not Available Or Only - [facility] [address] [place] [address], 76310, 06/18/2025 17:21:53 06/18/2006/18/2025 UACS urine bilirubin Negati ve Not Available Or Only - [facility] [address], 59[address], 06/18/2025 17:21:53 06/18/20 25 06/18/2025 UACS urine HGB Small abnormal Not Avai lable Or Only - [facility] [address] [place] [address], 47810, 06/18/2025 17:21:53 06/18/20 25 06/18/2025 UACS nitrite Positi ve abnormal Not Available Or Only - [facility] [address] [place] [address], 23388, 06/18/2025 17:21:53 06/18/20 25 06/18/2025 UACS leukocyte esterase Negati ve Not Available Or Only - [facility] [address] [place] [address], 91413, 06/18/2025 17:21:53 06/18/20 25 06/18/2025 UACS urobilinogen >=4.0 abnormal Not A vailable Or Only - [facility] [address] [place] [address], [id number], 06/18/2025 17:21:53 06/18/20 25 06/18/2025 UACS urine WBCs 2 /hpf 0-4 Not Avail able Or Only - [facility] [address] [place] [address], [id number], 06/18/2025 17:21:53 06/18/20 25 06/18/2025 UACS urine RBCs 0 /hpf 0-2 Not Avail able Or Only - [facility] [address] [place] [address], [id number], 06/18/2025 17:21:53 06/18/20 25 06/18/2025 UACS squamous epithelial cells 6 /hpf 0-5 high Not Available Or Onl y - [facility] [address] [place] [address], [id number], 06/18/2025 17:21:53 06/18/20 25 06/18/2025 UACS bacteria Few abnormal Not Avail able Or Only - [facility] [address] [place] [address], [address], 06/18/2025 17:21:53 06/18/20 25 06/18/2025 UACS color Pauline Not Available [facility] [address], [address], 06/18/2025 17:21:52 06/18/2006/18/2025 UACS appearance Clear Not Avail able Or Only [facility] [address] [place] [address], [address], 06/18/2025 17:21:52 06/18/2006/18/2025 UACS specific gravity 1.012 1.003- 1.030 Not Available [address], [address], 06/18/2025 17:21:52 06/18/2006/18/2025 UACS pH urine 6.0 4.5-7. 5 Not Available [facility] - [address], [address], 06/18/2025 17:21:52 06/18/2006/18/2025 UACS protein 30 abnormal Not Availa ble [facility] - [address], [address], 06/18/2025 17:21:52 06/18/2006/18/2025 UACS urine glucose Negati ve Not Available [address], [address], 06/18/2025 17:21:52 06/18/2006/18/2025 UACS ketones Negati ve Not Available [address], [address], 06/18/2025 17:21:52 06/18/2006/18/2025 UACS urine bilirubin Negati ve Not Available Or Only - [facility] [address] [place] [address], [address], 06/18/2025 17:21:52 06/18/20 25 06/18/2025 UACS urine HGB Small abnormal Not Avai lable Or Only - [facility] [address] [place] [address], [address], 06/18/2025 17:21:52 06/18/2006/18/2025 UACS nitrite Positi ve abnormal Not Available Or Only - [facility] [address] [place] [address], [address], 06/18/2025 17:21:52 06/18/2006/18/2025 UACS leukocyte esterase Negati ve Not Available Or Only - [facility] [address] [place] [address], [address], 06/18/2025 17:21:52 06/18/2006/18/2025 UACS urobilinogen >=4.0 abnormal Not A vailable Or Only - [facility] [address] [place] [address], [address], 06/18/2025 17:21:52 06/18/2006/18/2025 UACS urine WBCs 2 /hpf 0-4 Not Avail able Or Only - [facility] [address] [place] [address], [address], 06/18/2025 17:21:52 06/18/2006/18/2025 UACS squamous epithelial cells 6 /hpf 0-5 high Not Available Or Onl y - [facility] [address] [place] [address], [address], 06/18/2025 17:21:52 06/18/2006/18/2025 UACS bacteria Few abnormal Not Avail able Or Only - [facility] [address] [place] [address], [address], 06/18/2025 17:21:52 06/18/2006/18/2025 EGFR eGFR 88 mL/mi n/1.7 3m? This eGFR is calcu lated using the 2020 CKD-E PI Creat inine equat ion witho ut race modif ier. In most healt hy peopl e, the luzmaria l GFR is 90 mL/mi n/1.7 3 m2 or highe r. A resul t of 60 - 89 mL/mi n/1.7 3 m2 witho ut kidne y damag e may be luzmaria l in some peopl e (such as the elder ly, infan ts). A resul t of 60 - 89 mL/mi n/1.7 3 m2 for three month s or more, along with kidne y damag e (such as persi stent prote in in the urine ), means the perso n has early kidne y disea se. When GFR is <60 for three month s or more, chron ic kidne y disea se(CK D) is prese nt. Not Available Sc Only - [facility] [address] [place] [address], [address], 06/18/2025 17:15:19 06/18/2006/18/2025 LPSE lipase,serum 18 u/L 11-82 Not Dalila ilable Sc Only - [facility] [address] [place] [address], [address], 06/18/2025 17:15:18 06/18/20 25 06/18/2025 CMP sodium 139 mmol/ L 136-14 5 Not Available Sc Only - [facility] [address] [place] [address], [address], 06/18/2025 17:15:16 06/18/20 25 06/18/2025 CMP potassium 4.1 mmol/ L 3.5-5. 1 Not Available Sc Only - [facility] [address] [place] [address], [address], 06/18/2025 17:15:16 06/18/2006/18/2025 CMP chloride 106 mmol/ L 98-107 Not Available Sc Only - [facility] [address] [place] [address], [address], 06/18/2025 17:15:16 06/18/20 25 06/18/2025 CMP CO2 24 mmol/ L 21-31 Not Available Sc Only - [facility] [address] [place] [address], [address], 06/18/2025 17:15:16 06/18/20 25 06/18/2025 CMP BUN 9 mg/dL 7-25 Not Available Or Only - [facility] [address], [address], 06/18/2025 17:15:16 06/18/20 25 06/18/2025 CMP creatinine 0.8 mg/dL 0.6-1. 3 Not Available Or Only - [facility] [address] [place] [address], [address], 06/18/2025 17:15:16 06/18/20 25 06/18/2025 CMP glucose 210 mg/dL 70-105 high Not Availabl e Or Only - [facility] [address] [place] [address], [address], 06/18/2025 17:15:16 06/18/20 25 06/18/2025 CMP calcium 9.3 mg/dL 8.6-10 .3 Not Available Or Only - [facility] [address] [place] [address], [address], 06/18/2025 17:15:16 06/18/20 25 06/18/2025 CMP total protein 7.2 gm/dL 6.0-8. 3 Not Available Or Only - [facility] [address] [place] [address], [address], 06/18/2025 17:15:16 06/18/20 25 06/18/2025 CMP albumin 4.0 gm/dL 3.5-5. 7 Not Available Or Only - [facility] [address] [place] [address], [address], 06/18/2025 17:15:16 06/18/20 25 06/18/2025 CMP bilirubin (total) 0.8 mg/dL 0.3-1. 0 Not Available Or Only - [facility] [address] [place] [address], [address], 06/18/2025 17:15:16 06/18/20 25 06/18/2025 CMP AST 24 IU/L 13-39 Not Available Or Only - [facility] [address] [place] [address], [address], 06/18/2025 17:15:16 06/18/20 25 06/18/2025 CMP alk phos 134 IU/L 34-104 high Not Availab le Or Only - [address], [address], 06/18/2025 17:15:16 06/18/20 25 06/18/2025 CMP ALT 15 IU/L 7-52 Not Available Or Only - [address], [address], 06/18/2025 17:15:16 06/18/2006/18/2025 CMP anion gap 9 8-16 Anion gap calcu lated using formu la: Na - (Cl + CO2) Measu red total CO2 is used in place of HCO3 Not Available Or Only - [address], [address], 06/18/2025 17:15:16 06/18/20 25 06/18/2025 DBIL bilirubin (direct) 0.1 mg/dL 0.0-0. 2 Not Available Or Only - [address], [address], 06/18/2025 17:15:14 06/18/20 25 06/18/2025 DIFF neutrophils 64 % 47-67 Not Avai lable Or Only - [address], [address], 06/18/2025 16:50:30 06/18/20 25 06/18/2025 DIFF lymphocytes 23 % 25-45 low Not Avai lable Or Only - [address], [address], 06/18/2025 16:50:30 06/18/20 25 06/18/2025 DIFF monocytes 8 % 1-9 Not Availa ble Or Only - [address], [address], 06/18/2025 16:50:30 06/18/20 25 06/18/2025 DIFF eosinophils 3 % 0-6 Not Avai lable Or Only - [address], [address], 06/18/2025 16:50:30 06/18/20 25 06/18/2025 DIFF basophils 1 % 0-2 Not Availa ble Or Only - [address], [address], 06/18/2025 16:50:30 06/18/20 25 06/18/2025 DIFF absolute neutrophils 5.0 K/cum m 1.8-6. 5 Not Available [address], [address], 06/18/2025 16:50:30 06/18/20 25 06/18/2025 DIFF absolute lymphocytes 1.8 K/cum m 0.9-3. 0 Not Available Or Only [address], [address], 06/18/2025 16:50:30 06/18/20 25 06/18/2025 DIFF absolute monocytes 0.6 K/cum m 0.2-0. 8 Not Available Or Only [address], [address], 06/18/2025 16:50:30 06/18/20 25 06/18/2025 DIFF absolute eosinophils 0.3 K/cum m 0.0-0. 4 Not Available Or Only [address], [address], 06/18/2025 16:50:30 06/18/20 25 06/18/2025 DIFF absolute basophils 0.1 K/cum m 0.0-0. 2 Not Available Or Only [address], [address], 06/18/2025 16:50:30 06/18/20 25 06/18/2025 CBC W/ AUTO DIFF WBC 7.8 K/cum m 3.4-9. 4 Not Available Or Only - [address], [address], 06/18/2025 16:50:28 06/18/20 25 06/18/2025 CBC W/ AUTO DIFF RBC 4.23 M/cum m 4.20-5 .40 Not Available Or Only - [address], [address], 06/18/2025 16:50:28 06/18/20 25 06/18/2025 CBC W/ AUTO DIFF hemoglobin 11.5 gm/dL 12.0-1 6.0 low Not Available Or Only - [address], [address], 06/18/2025 16:50:28 06/18/20 25 06/18/2025 CBC W/ AUTO DIFF hematocrit 35 % 37-47 low Not Available Or Only - [address], [address], 06/18/2025 16:50:28 06/18/20 25 06/18/2025 CBC W/ AUTO DIFF MCV 83 81-94 Not Available Or Only - [address], [address], 06/18/2025 16:50:28 06/18/20 25 06/18/2025 CBC W/ AUTO DIFF MCH 27.1 pg 27.5-3 3.2 low Not Available Or Only - [address], [address], 06/18/2025 16:50:28 06/18/20 25 06/18/2025 CBC W/ AUTO DIFF MCHC 32.6 g/dL 31.0-3 6.0 Not Available Or Only - [address], [address], 06/18/2025 16:50:28 06/18/20 25 06/18/2025 CBC W/ AUTO DIFF RDW 14.1 % 11.7-1 5.5 Not Available Or Only - [facility] [address] [place] [address], [address], 06/18/2025 16:50:28 06/18/20 25 06/18/2025 CBC W/ AUTO DIFF platelets 278 K/cum m 140-41 0 Not Available [facility] [address] [place] [address], [address], 06/18/2025 16:50:28 06/18/20 25 06/18/2025 CBC W/ AUTO DIFF MPV 7.9 mL Not Available [facility] [address] [place] [address], [address], 06/18/2025 16:50:28 06/18/20 25 06/19/2025 C URINE urine culture (new) abnormal Print Date/ Time: 2024 14:19 CDT Patie nt: JANINA WHITE P Micro biolo gy - Uroge nital Legen d: c=Cor recte d, F=Res ult Comme nt, S=Idalia cepti ble, I=Int ermed iate, R=Res istan t, N/A=N ot Appli cable PROCE DURE: Urine Cultu re [] ACCES KHALIDA: [id number] [phone] SOURC E: Urine BODY SITE: COLLE CTED DATE/ TIME: 2024 15:21 CDT RECEI ELVA DATE/ TIME: 2024 19:13 CDT START DATE/ TIME: 2024 19:13 CDT FREE TEXT SOURC E: NC ELIMI NARY REPOR TS Preli minar y Repor t [] Verif ied Date/ Time: 2024 14:19 CDT Moder ate proba ble conta minan ts inclu din,00 0 cfu/m l Gram Negat marquis Rods Cultu re reinc ubate d Not Available [facility] [address] [place] [address], [address], 06/19/2025 15:19:31 06/28/2006/30/2025 alpha -1-an titry psin (aat) , QN, serum A-1 antitrypsin phenotype Not Available Or Onl y - [facility] [address] [place] [address], [address], 06/30/2025 17:12:05 06/28/2006/30/2025 alpha -1-an titry psin (aat) , QN, serum [id number]-[id number] trypsin 140 mg/dL 101-18 7 Not Available Or Only - [facility] [address] [place] [address], [address], 06/30/2025 17:12:05 06/28/2006/30/2025 alpha -1-an titry psin (aat) , QN, serum phenotype pl MS MM Pheno type is consi dered to be luzmaria l , produ cing luzmaria l serum level s of alpha -1-pr oteas e inhib itor and not assoc iated with clini radha disea se. Assoc iated A1A total serum level s in other pheno types and their incid ence in the gener al popul ation are shown in the table below . Pheno type Popul ation % funct ion A-1-A T Conc. * Incid ence % karie red to MM (Typi radha Range ) MM 86.5% 100% (96 - 189) MS 8.0% 86% (83 - 161) MZ 3.9% 61% (60 - 111) FM 0.4% 100% (93 - 191) SZ 0.3% 41% (42 - 75) SS 0.1% 64% (62 - 119) ZZ 0.05% 19% (16 - 38) FS 0.05% 70% (70 - 128) FZ Unkno wn 46% (44 - 88) FF Unkno wn Unkno wn *A-1- AT graciela ntrat ion in the homoz ygous MM pheno type is taken as the refer ence luzmaria l. Perce nt defic iency in each pheno type is repor michelle relat marquis to this refer ence. Range s used to confi rm pheno type. Not Available Or Only - [facility] [address] [place] [address], [place], [address], 06/30/2025 17:12:05 04/27/[address], abdom en + pelvi s, w/o contr ast [facility] [address] [place]. [address] ------ ---NAM E----- ---- NUMBER SEX AGE ADMIT DISC. XRAY# F/C TYPE RICE TL EN P [id number] F 54 5 [id number] GIL E/R DATE OF : 1970 M/R# [id number] PH#: [id number] LOCATI ON: TRANSC RIBED: 18:09 CT [place]BD [place] [address]01 COMPLE MICHELLE: 17:31 TSY [id number] {REASO N FOR PROCED URE: Right flank pain and abdomi nal pain PHYSIC ISABEL: RADHA HUMMEL T MO ====== ====== ====== ====== ====== ====== ====== ====== ====== ====== ====== ====== ====== == R A D I O L O G Y R E P O R T ====== ====== ====== ====== ====== ====== ====== ====== ====== ====== ====== ====== ====== == EXAM: CT of the abdome n and pelvis HISTOR Y: Right sided abdomi nal pain, nausea , vomiti ng, diarrh ea x3 days. Prior cholec ystect javier, append ectomy , hernia repair . 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 TECHNI QUE: CT of the abdome n and pelvis was perfor med withou t oral or IV contra st admini strati on. Automa michelle exposu re contro l was used for dose optimi zation on this exam. CTDIvo l in mGy: 26.52 DLP in mGy-cm : 1290 COMPAR RAS: CT abdome n and pelvis FINDIN GS: There are curvil inear basila r opacit ies that should be relate d to areas of atelec tasis. Funez ry artery athero sclero sis is presen t. Abdome n: There is subopt imal evalua tion of the solid organs of the abdome n with the lack of intrav enous contra st. The hepati c contou r is mildly nodula r which can be seen with liver parenc hymal diseas e. The liver is enlarg ed. Prior cholec ystect javier. In the gallbl adder fossa, there is a fluid densit y lesion measur ing about 3 cm which could be postop erativ e relate d to a by Edmond or seroma , unchan ged. The spleen is normal in size. There is no peripa ncreat ic fluid collec tion apprec iated. No adrena l nodule . No nephro lithia sis. Small hypoat tenuat ing anteri or lower pole right renal lesion is unchan ged (serie s 7 image 146). No hydron ephros is. The abdomi nal aorta calibe r is normal . There is athero sclero sis. There are sub-ce ntimet er retrop eriton eal lymph nodes. Pelvis : The stomac h is not disten ded. Small bowel calibe r is normal . The append ix is not visual ized compat ible with the histor y of append ectomy . There are a few coloni c divert icula. The majori ty the colon is poorly disten ded and subopt imally evalua michelle for wall thicke teofilo. Where there is gaseou s disten tion of the colon, there is no wall thicke teofilo apprec iated. Omenta l fat necros is is presen t with some periph eral calcif icatio n. This is adjace nt to a a small ventra l hernia contai teofilo fat at the level of the umbili cus. There are multip le areas of subcut aneous nodula rity or strand ing along the anteri or abdomi nal wall. There are a few tiny cystic foci of gas presen t. The anteri or subcut aneous abdomi nal findin gs may be relate d to inject ion sites. There are areas of subcut aneous strand ing, nodula rity, and calcif icatio n tin stacker iorly within the soft tissue s. No calcul us within the bladde r. The uterus is presen t. There are a few pelvic calcif icatio ns presen t. No free fluid. There is vacuum disc phenom enon with sugges tion of disc bulge and tin stacker ior disc space calcif icatio n at L5 - S1. IMPRES KHALIDA: 1. No acute abnorm ality identi fied to explai n the patien t's sympto ms. 2. Chroni c findin gs in the abdome n and pelvis are unchan ged compar ed to prior as discus sed above. This report was dictat ed remote ly by a [facility] og[facility] in [place], [place]. Electr onical ly Signed By: HARDEEP SCOTT MD , Date/T blayne: 18:09 INTERFACE Or Only - [facility] [address] [facility], [place], [address], 04/27/2025 19:12:58 05/07/20 25 05/07/2025 CT, abdom en + pelvi s, w/o contr ast [facility] [address] [place] [address] [phone] Name: TL WHITE Age: 54 : 1970 Exam Date: 2024 ACCESS ION: [id number] BLAISE POSADA MD: ANKUSH JOEL EXAM: CT of the abdome n and pelvis withou t contra st. HISTOR Y: Patien t Hx: Right sided abdomi nal pain with nausea and diarrh ea for last 3 days. Order Hx: RUQ and RLQ pain Histor y of Cancer : Denies Histor y of Surger y: Append ectomy , Cholec ystect javier TECHNI QUE: CT of the abdome n and pelvis was perfor med withou t oral or IV contra st admini strati on. Automa michelle exposu re contro l was used for dose optimi zation on this exam. CTDIvo l in mGy: 38.78 DLP in mGy-cm : 1911.7 COMPAR RAS: CT pelvis with contra st and . CT abdome n pelvis with contra st 2023. CT abdome n pelvis with contra st 2022. FINDIN GS: Visual ized heart is normal in size. No perica rdial effusi on. Funez ry artery calcif icatio ns are noted. Bilate ral lung bases do not demons trate acute findin gs. The liver, spleen , bilate ral adrena l glands and pancre as are within normal limits . Patien t is status post cholec ystect javier. Stable small cystic struct ure within the gallbl adder fossa. No pancre atic or biliar y ductal dilata tion but evalua tion is subopt imal due to lack of intrav enous contra st. No urinar y calcul i. No obstru ctive uropat hy or hydrou retern ephros is. Small simple cyst of the inferi or pole of the right kidney , stable . The abdomi nal aorta is unrema rkable . No lympha denopa thy. No intrap eriton eal free air or free fluid. The urinar y bladde r is partia lly decomp ressed otherw ise unrema rkable . The uterus is grossl y unrema rkable . No obviou s myomet rial mass. No obviou s adnexa l masses . Coloni c divert iculos is, especi ally on the sigmoi d and the descen ding colon. Small amount of fecal materi al in the colon. No acute findin gs of the stomac h, small and large bowel. The append ix is not visual ized but there are no second patrick signs of append icitis in the perice radha region . No acute findin gs of the subcut aneous soft tissue s. Small soft tissue nodule s of the subcut aneous fat of the anteri or abdomi nal wall (serie s 3 image 322). Additi onally , soft tissue nodula rity and mixed with calcif icatio ns in the subcut aneous as fat of the tin stacker ior abdomi nal wall/u pper glutea l region . Findin gs likely relate d to subcut aneous as inject ions. Clinic al correl ation is recomm ended. No acute osseou s abnorm ality. Degene rative change of the spine, sacroi liac joints and hip joints . IMPRES KHALIDA: 1. No acute abnorm ality of the abdome n and pelvis . 2. See body of report for chroni c and incide ntal findin gs as well as additi onal detail s. /PS:ps D: 2024 17:57 T: 2024 17:57 Final Report Dictat ed: 17:57 Leonardo FREEDMAN, Shelley Hussein Signed : 17:57 Leonardo FREEDMAN, Shelley Hussein INTERFACE Or Only - [facility] [address] [place] [address], [address], 05/07/2025 19:01:25 05/18/[address], abdom en + pelvi s, w/ contr ast [facility] [address] [place]. [address] ------ ---NAM E----- ---- NUMBER SEX AGE ADMIT DISC. XRAY# F/C TYPE ZEKE LT EN P [id number] F 54 5 [id number] GIL E/R DATE OF : 1970 M/R# [id number] PH#: [id number] LOCATI ON: TRANSC RIBED: 6:22 CT [place] [address] COMPLE MICHELLE: 4:39 TSY [id number] {REASO N FOR PROCED URE: Abdomi nal Pain PHYSIC ISABEL: RADHA HUMMEL T MO ====== ====== ====== ====== ====== ====== ====== ====== ====== ====== ====== ====== ====== == R A D I O L O G Y R E P O R T ====== ====== ====== ====== ====== ====== ====== ====== ====== ====== ====== ====== ====== == exam: CT abdome n and pelvis with contra st Date: 2024 04:39 Compar ras: CT abdome n pelvis April 27, 2025 Histor y: Ruq pain x 2 days. histor y of chol;e cystec matt, append ectomy , umbill icus hernia repair , pt wearin g insuli n pump TECHNI QUE: Axial CT images throug h the abdome n and pelvis were obtain ed after the intrav enous admini strati on of 100ml of omnipa que 350 via the lacf. MPR images obtain ed. All CT scans are perfor med using dose optimi zation techni ques as approp riate to the perfor med exam and includ es at least one of the follow ing: Automa michelle exposu re contro l, adjust ment of the mA and/or kV accord ing to size, and the use of iterat marquis recons tructi on techni que. CTDIvo l in mGy: 27.72 DLP in mGy-cm : 1344 FINDIN GS: The liver and spleen are normal in size and contou r. No adrena l mass. Pancre as is normal . There are cholec ystect javier change s. Stable 3.5 x 3.1 cm cyst at the gallbl adder surgic al bed. No pyelon ephrit is. No urolit hiasis , hydron ephros is, or hydrou reter. There are append ectomy change s. No bowel obstru ction. There is coloni c divert iculos is withou t divert iculit is. The uterus and ovarie s are grossl y normal . No bladde r calcul i. No bladde r wall thicke teofilo. No abdomi nal aortic aneury sm. No ascite s or pneumo perito neum. No acute fractu res in the abdome n or pelvis . Impres khalida: 1. No acute findin g in the abdome n or pelvis . 2. Stable 3.5 x 3.[facility] Electr onical ly Signed By: SHADI Slater MD , Date/T blayne: 06:22 INTERFACE Sc Only - [facility] [address] [place], [address], 05/18/2025 07:26:44 05/21/20 25 05/21/2025 dmitry posada/kojo griffin tic resul t No observ ation record ed. [email or web address] [facility] - Radiology [address] [facility], [place], [address], 05/23/2025 13:18:15 05/22/20 25 05/13/2025 US, doppl er echoc ardio gram No observ ation record ed. BARCODE Not Available 2024 16:02:31 05/26/20 25 05/26/2025 D chest 1 view [facility] [address] [place] [address] Name: TL WHITE Age: 54 : 1970 Exam Date: 2024 ACCESS ION: [id number] BLAISE POSADA MD: JESS GARCES EXAM: Chest single view Date: 2024 05:39 Compar ras: Chest X-ray Octobe r 2023 Histor y: Patien t compla ins of chest pain and shortn ess of breath starti swetha yester day. Patien t has a histor y of asthma . right sided pleuri tic pain FINDIN GS: AP uprigh t view of the chest obtain ed. Cardia c silhou ette is enlarg ed, and pulmon patrick vascul arity is normal . No consol idatio n, pleura l effusi on, or eviden ce of pneumo thorax . No acute fractu res in the chest. Impres khalida: No active chest diseas e. Final Report Dictat ed: 06:45 Sergo Hebert MD Signed : 06:45 Sylwia slater MD, Sergo Hussein INTERFACE Sc Only - [facility] [address] , [place], [address], 05/26/2025 07:48:51 05/26/20 25 05/26/2025 XR, chest , 2 view No observ ation record ed. [facility] (Radiology) [address] [place] [address], [address], 05/26/2025 14:34:26 05/28/20 CT head scan w/o contr ast [facility] [address] [place]. [address] ------ ---NAM E----- ---- NUMBER SEX AGE ADMIT DISC. XRAY# F/C TYPE RICE TL EN P [id number] F 54 5 [id number] GIL E/R DATE OF : 1970 M/R# [id number] #: [id number] LOCATI ON: TRANSC RIBED: 14:29 CT HEAD SCAN W/[place] [address] COMPLE MICHELLE: 13:58 TSY [id number] {REASO N FOR PROCED URE: Headac he PHYSIC ISABEL: GOLITK O AA ESTEPHANIE T MO ====== ====== ====== ====== ====== ====== ====== ====== ====== ====== ====== ====== ====== == R A D I O L O G Y R E P O R T ====== ====== ====== ====== ====== ====== ====== ====== ====== ====== ====== ====== ====== == EXAMIN ATION: CT head HISTOR Y: patien t compla ins of headac he and neck pain that radiat es down her thorac ic spine for severa l days, histor y of thorac ic arachn oid cyst, denies histor y of spinal and brain surger ies, 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 TECHNI QUE: Axial images throug h the brain withou t admini strati on of contra st. Automa michelle exposu re contro l was used for dose optimi zation on this exam. CTDIvo l in mGy: 56.54 DLP in mGy-cm : 1086 FINDIN GS: No intrac ranial hemorr azul. No intra or extra- axial fluid collec tion. The ventri cular system is normal in size and config uratio n. The galvez-w ana matter differ entiat ion is acutel y intact . No mass effect or midlin e shift. Orbita l struct ures are within normal limits . The parana jordan sinuse s and mastoi d air cells are clear. No acute calvar ial abnorm ality. IMPRES KHALIDA: No acute intrac ranial abnorm ality. This report was dictat ed remote ly by a [facility] Radiol ogist in [place], [place]. Electr onical ly Signed By: MEET BROWN MD , Date/T blayne: 14:29 INTERFACE Sc Only - [facility] [address], [place], [address], 05/28/2025 15:32:34 05/28/[address], cervi radha spine , w/o contr ast [facility] [address] [place]. [address] ------ ---NAM E----- ---- NUMBER SEX AGE ADMIT DISC. XRAY# F/C TYPE ZEKE BOOTHE EN P [id number] F [id number] 5 [id number] GIL E/R DATE OF : 1970 M/R# [id number] #: [id number] LOCATI ON: TRANSC RIBED: 14:31 CT C-SPIN E [place] [id number] COMPLE MICHELLE: 13:58 TSY [id number] {REASO N FOR PROCED URE: Neck Pain PHYSIC ISABEL: GOLITK O AA ESTEPHANIE T MO ====== ====== ====== ====== ====== ====== ====== ====== ====== ====== ====== ====== ====== == R A D I O L O G Y R E P O R T ====== ====== ====== ====== ====== ====== ====== ====== ====== ====== ====== ====== ====== == EXAMIN ATION: CT cervic al spine HISTOR Y: patien t compla ins of headac he and neck pain that radiat es down her thorac ic spine for severa l days, histor y of thorac ic arachn oid cyst, denies histor y of spinal and brain surger ies, 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 TECHNI QUE: Axial images throug h the cervic al spine, also review ed as sagitt al and funez l reform atted images . Automa michelle exposu re contro l was used for dose optimi zation on this exam. CTDIvo l in mGy: 18.7 DLP in mGy-cm : 372 FINDIN GS: There is straig htenin g of the normal cervic al lordos is. The facet joints are aligne d bilate rally. Verteb ral body height s and interv ertebr al disc spaces are mainta ined. The cranio cervic al juncti on and odonto id proces s are intact . Prever tebral soft tissue s are within normal limits . The adjace nt soft tissue s demons trate no acute or signif icant abnorm alitie s. IMPRES KHALIDA: No acute osseou s abnorm ality. This report was dictat ed remote ly by a [facility] Radiol ogist in [place], [place]. Electr onical ly Signed By: MEET MORALES IN , Date/T blayne: 14:31 INTERFACE Sc Only - [facility] [address], [place], [address], 05/28/2025 15:35:09 05/28/[address], thora cic spine , w/o contr ast [facility] [address] [place]. [address] ------ ---NAM E----- ---- NUMBER SEX AGE ADMIT DISC. XRAY# F/C TYPE ZEKE JUANBIBIANA EN P [id number] F 54 5 [id number] GIL E/R DATE OF : 1970 M/R# [id number] PH#: [id number] LOCATI ON: TRANSC RIBED: 14:35 CT THORAC IC SPINE W/O CONTRA [id number] COMPLE MICHELLE: 13:58 TSY [id number] {REASO N FOR PROCED URE: Pain PHYSIC ISABEL: GOLITK O AA ESTEPHANIE T MO ====== ====== ====== ====== ====== ====== ====== ====== ====== ====== ====== ====== ====== == R A D I O L O G Y R E P O R T ====== ====== ====== ====== ====== ====== ====== ====== ====== ====== ====== ====== ====== == EXAMIN ATION: CT thorac ic spine HISTOR Y:arleen ent compla ins of headac he and neck pain that radiat es down her thorac ic spine for severa l days, histor y of thorac ic arachn oid cyst, denies histor y of spinal and brain surger ies, 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 was inject ed throug h the withou t eviden ce of advers e reacti on. Sagitt al and funez l reform atted images were also review ed. Automa michelle exposu re contro l was used for dose optimi zation on this exam. CTDIvo l in mGy: 65.9 DLP in mGy-cm : 2432 FINDIN GS: Thorac ic spinal alignm ent is normal . Verteb ral body height s are mainta ined. Mild multil evel degene rative disc diseas e of the mid thorac ic spine. No fractu re. No obviou s soft tissue abnorm ality of the thorac ic spine. The adjace nt lungs are clear acute diseas e. IMPRES KHALIDA: No acute abnorm ality. This report was dictat ed remote ly by a [facility] Radiol ogist in [place], [place]. Electr onical ly Signed By: MEET BROWN MD , Date/T blayne: 14:35 INTERFACE Or Only - [facility] [address] [place], [address], 05/28/2025 15:38:22 06/05/20 25 06/03/2024 CT, angio gram, chest , w/ contr ast No observ ation record ed. [email or web address] Not Available 2024 16:05:59 06/07/20 25 06/07/2025 XR, chest , [address] [address] Teleph one [phone] Name: TL WHITE [id number] am Date: 2024 Age: 54Phys ician: MD MIKEY, HELENA Hussein : 1970Ex aminat ion: XR CHEST 2 VIEWS EXAMIN ATION: Chest, 2 view INDICA TION: Dyspne a and cough for two months . TECHNI QUE: Fronta l and latera l views of the chest obtain ed. COMPAR RAS: None FINDIN GS: No infilt rate, pleura l effusi on, or pneumo thorax . Normal cardio medias tinal silhou ette. No acute osseou s findin g. IMPRES KHALIDA: No acute findin g. Electr onical ly signed in Reynolds cribe by: Vickey ryan MD on:05/16 3:01 PM cc: Page PAGE 1 of [facility] ES 1 MIKE Sc Only - [facility] [address] [place] [address], [address], 06/08/2025 14:33:15 Result Notes Documentation Provider Name and Address Organization Details Recorded Time Ct, Abdomen + Pelvis, W/o Contrast : [facility] [address] [place] [address] Name: LETI WHITE Age: 54 : 1970 Exam Date: 05/07/2025 ORDERING MD: ANKUSH JOEL EXAM: CT of the abdomen and pelvis without contrast. HISTORY: Patient Hx: Right sided abdominal pain with nausea and diarrhea for last 3 days. Order Hx: RUQ and RLQ pain History of Cancer: Denies History of Surgery: Appendectomy, Cholecystectomy TECHNIQUE: CT of the abdomen and pelvis was performed without oral or IV contrast administration. Automated exposure control was used for dose optimization on this exam. CTDIvol in mGy: 38.78 DLP in mGy-cm: 1911.7 COMPARISON: CT pelvis with contrast and 07/03/24. CT abdomen pelvis with contrast 04/21/2024. CT abdomen pelvis with contrast 04/13/2023. FINDINGS: Visualized heart is normal in size. No pericardial effusion. Coronary artery calcifications are noted. Bilateral lung bases do not demonstrate acute findings. The liver, spleen, bilateral adrenal glands and pancreas are within normal limits. Patient is status post cholecystectomy. Stable small cystic structure within the gallbladder fossa. No pancreatic or biliary ductal dilatation but evaluation is suboptimal due to lack of intravenous contrast. No urinary calculi. No obstructive uropathy or hydroureternephrosis. Small simple cyst of the inferior pole of the right kidney, stable. The abdominal aorta is unremarkable. No lymphadenopathy. No intraperitoneal free air or free fluid. The urinary bladder is partially decompressed otherwise unremarkable. The uterus is grossly unremarkable. No obvious myometrial mass. No obvious adnexal masses. Colonic diverticulosis, especially on the sigmoid and the descending colon. Small amount of fecal material in the colon. No acute findings of the stomach, small and large bowel. The appendix is not visualized but there are no secondary signs of appendicitis in the pericecal region. No acute findings of the subcutaneous soft tissues. Small soft tissue nodules of the subcutaneous fat of the anterior abdominal wall (series 3 image 322). Additionally, soft tissue nodularity and mixed with calcifications in the subcutaneous as fat of the posterior abdominal wall/upper gluteal region. Findings likely related to subcutaneous as injections. Clinical correlation is recommended. No acute osseous abnormality. Degenerative change of the spine, sacroiliac joints and hip joints. IMPRESSION: 1. No acute abnormality of the abdomen and pelvis. 2. See body of report for chronic and incidental findings as well as additional details. /PS:ps Final Report Dictated: 07-MAY-25 17:57 Becca Patterson MD Signed: 07-MAY-25 17:57 Becca Patterson MD Not Available [facility] 05/07/2025 19:01:26 Ct, Abdomen + Pelvis, W/ Contrast : [address] [address] ---------NAME--------- NUMBER SEX AGE ADMIT DISC. XRAY# F/C TYPE ZEKE CARRANZA P [id number] F 54 05/18/25 [id number] GIL E/R DATE OF : 1970 M/R# [id number] #: [id number] LOCATION: TRANSCRIBED: 05/18/25 6:22 CT ABD PELVIS W CONTRAST [id number] COMPLETED:05/18/25 4:39 TSY 33640 {REASON FOR PROCEDURE: Abdominal Pain PHYSICIAN: RADHA VIZCAINO MO R A D I O L O G Y R E P O R T exam: CT abdomen and pelvis with contrast Date: 05/18/2025 04:39 Comparison: CT abdomen pelvis April 27, 2025 History: Ruq pain x 2 days. history of chol;ecystectomy, appendectomy, umbillicus hernia repair, pt wearing insulin pump TECHNIQUE: Axial CT images through the abdomen and pelvis were obtained after the intravenous administration of 100ml of omnipaque 350 via the lacf. MPR images obtained. All CT scans are performed using dose optimization techniques as appropriate to the performed exam and includes at least one of the following: Automated exposure control, adjustment of the mA and/or kV according to size, and the use of iterative reconstruction technique. CTDIvol in mGy: 27.72 DLP in mGy-cm: 1344 FINDINGS: The liver and spleen are normal in size and contour. No adrenal mass. Pancreas is normal. There are cholecystectomy changes. Stable 3.5 x 3.1 cm cyst at the gallbladder surgical bed. No pyelonephritis. No urolithiasis, hydronephrosis, or hydroureter. There are appendectomy changes. No bowel obstruction. There is colonic diverticulosis without diverticulitis. The uterus and ovaries are grossly normal. No bladder calculi. No bladder wall thickening. No abdominal aortic aneurysm. No ascites or pneumoperitoneum. No acute fractures in the abdomen or pelvis. Impression: 1. No acute finding in the abdomen or pelvis. 2. Stable 3.5 x 3.1 cm cyst at the gallbladder surgical bed. Electronically Signed By: SHADI CLINE MD , Date/Time: 05/18/25 06:22 Not Available [facility] 05/18/2025 07:26:44 Xr, Chest, 2 View : This document (1 of 1) was received from [email or web address] on 05/26/2025 through Direct Message along with the following message body content: You have received a 2 page fax at 05/26/2025 2:15:08 PM. * The Caller-ID for this fax is unknown. If you have any questions regarding this message or your service contact Corporate Support: [place] Email: [email or web address] Phone: or Email: [email or web address] Phones: [phone] Thank you for using the [email or web address] service! Not Available [facility] 05/28/2025 02:42:41 Ct, Cervical Spine, W/o Contrast : [address] [address] ---------NAME--------- NUMBER SEX AGE ADMIT DISC. 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 TECHNIQUE: Axial images through the cervical spine, also reviewed as sagittal and coronal reformatted images. Automated exposure control was used for dose optimization on this exam. CTDIvol in mGy: 18.7 DLP in mGy-cm: 372 FINDINGS: There is straightening of the normal cervical lordosis. The facet joints are aligned bilaterally. Vertebral body heights and intervertebral disc spaces are maintained. The craniocervical junction and odontoid process are intact. Prevertebral soft tissues are within normal limits. The adjacent soft tissues demonstrate no acute or significant abnormalities. IMPRESSION: No acute osseous abnormality. This report was dictated remotely by a [facility] Radiologist in [place], [place]. Electronically Signed By: MEET MARLEY MD , Date/Time: 05/28/25 14:31 Not Available [facility] 05/28/2025 15:35:09 Ct, Thoracic Spine, W/o Contrast : [address] [address] ---------NAME--------- NUMBER SEX AGE ADMIT DISC. 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 was injected through the without evidence of adverse reaction. Sagittal and coronal reformatted images were also reviewed. Automated exposure control was used for dose optimization on this exam. CTDIvol in mGy: 65.9 DLP in mGy-cm: 2432 FINDINGS: Thoracic spinal alignment is normal. Vertebral body heights are maintained. Mild multilevel degenerative disc disease of the mid thoracic spine. No fracture. No obvious soft tissue abnormality of the thoracic spine. The adjacent lungs are clear acute disease. IMPRESSION: No acute abnormality. This report was dictated remotely by a [facility] Radiologist in [place], [place]. Electronically Signed By: MEET MARLEY MD , Date/Time: 05/28/25 14:35 Not Available [facility] 05/28/2025 15:38:23 Xr, Chest, 2 View : [place] [address] Name: LETI WHITE Date: 06/07/2025 Age: 54Physician: MD MIKEY, CARROL : 1970Examination: XR CHEST 2 VIEWS EXAMINATION: Chest, 2 view INDICATION: Dyspnea and cough for two months. TECHNIQUE: Frontal and lateral views of the chest obtained. COMPARISON: None FINDINGS: No infiltrate, pleural effusion, or pneumothorax. Normal cardiomediastinal silhouette. No acute osseous finding. IMPRESSION: No acute finding. Electronically signed in PowerScribe by: Vickey Thacker MD on:06/07/2025 3:01 PM cc: Page PAGE 1 of NUMPAGES 1 Carrol Villagomez MD [facility], [address], [facility] 06/08/2025 12:48:14 Alpha 1 Antitrypsin Mm, Qn, Serum Or Plasma (obs) : This document (1 of 1) was received from [email or web address] on 06/19/2025 through Direct Message along with the following message body content: You have received a 1 page fax at 06/19/2025 7:32:51 PM. * The Caller-ID for this fax is TESTCSID. If you have any questions regarding this message or your service contact Corporate Support: US Email: [email or web address] Phone: or Email: [email or web address] Phones: [phone] Thank you for using the [email or web address] service! Sindhu Pizarro [facility] 06/26/2025 16:23:03 Problems Name Problem SNOMED Code Status Onset Date Resolution Date Notes Provider Name and Address Organization Details Recorded Time Migraine 55706769 Active 2020 Yolande Riley [facility] 4 17:00:48 Hypertens marquis disorder 54633220 Active 2020 Yolandeher Riley [facility] 4 17:00:48 Atypical squamous cells of undetermi tiffanie significa nce on cervical Papanicol aou smear 054765701 Active 2020 Yolande Riley [facility] 4 17:00:48 Second degree uterine prolapse 2921403 [facility] 17:[facility] Chest pain 96921522 Active 2022 KYA LAKE NP [address] [place] [address], [address] , [facility] 5 16:44:36 Preinfarc tion syndrome 1056038 Active 2022 Yolande lam, [facility] 4 17:00:48 Coronary arteriosc lerosis 92050794 Active 2023 KYA LAKE NP [address] [place] [address], [address] , [facility] 5 17:10:30 Essential hypertens ion 90313159 Active 2023 KYA LAKE NP [address] [place] [address], [address] , [facility] 5 16:44:21 Hyperchol esterolem ia 68664127 Active 2023 [facility] 4 16:47:54 Abdominal pain 41690393 Active 2023 Eren Oswald PA-C [address] [place] [address], [address] , [facility] 4 13:05:40 Thoracic radiculop athy 80211948 Active 2023 Kimi Mathis APRN, [employer] [address] [place] [address], [place], [address] , [facility] 4 14:46:37 Cervical radiculop athy 60308046 Active 2023 Kimi Mathis APRN, [employer] [address] [place], [address] , [facility] 4 14:46:47 Lumbar spondylos is 685051924 Active 2023 Pauly Vizcaino MD [address], [place], [address] , [facility] 5 14:49:06 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 52850429090 9106 Active 2023 following with endocrino caryy Pauly Vizcaino MD [address] [facility], [place], [address] , [facility] 5 14:52:00 Spinal arachnoid cyst 324184420 Active 2023 Pauly Vizcaino MD [address] [facility], [place], [address] , [facility] 5 14:51:11 Morbid obesity 750843050 Active 2024 Pauly Vizcaino MD [address] [place] [address], [address] , [facility] 5 14:50:22 Gastropar esis syndrome 659160588 Active 2024 Pauly Vizcaino MD [address] [place] [address], [address] , [facility] 5 14:53:47 Gastroeso phageal reflux disease 252109844 Active 2024 Pauly Vizcaino MD [address] [place] [address], [address] , [facility] 5 14:53:56 Dyspnea 245153504 Active 2024 Valeria Baugh APRN, [employer] [address] [place] [address], [address] , [facility] 5 12:14:35 Pain of left shoulder region Active 2024 Pauly Vizcaino MD [address] [place] [address], [address] , [facility] 5 15:11:16 Bilateral cramp of muscle of lower limbs 80368416314 334836 Active 2024 Pauly Vizcaino MD [address] [facility], [place], [address] , [facility] 5 15:12:21 Fibromyal chuck 577406519 Active 2024 Pauly Vizcaino MD [address] , [place], [address] , [facility] 5 15:19:57 Recurrent major depressio n in remission 03325628 Active 2024 Pauly Vizcaino MD [address] [facility], [place], [address] , [facility] 5 15:24:34 Primary insomnia 2047868 Active 2024 Pauly Vizcaino MD [address] [facility], [place], [address] , [facility] 5 15:25:40 Swelling of lower limb 152015625 Active 2024 Pauly Vizcaino MD [address] [facility], [place], [address] , [facility] 5 16:16:03 Palpitati ons 52632373 Active 2024 [facility] 5 16:53:19 Dyspnea on exertion 30115163 Active 2024 KYA LAKE NP [address] [facility], [place], [address] , [facility] 5 17:10:27 Hyperlipi demia 47136610 Active 2024 KYA LAKE NP [address] [facility], [place], [address] , [facility] 5 16:44:26 Edema of lower extremity 669767050 Active 2024 KYA LAKE NP [address] , [place], [address] , [facility] 5 17:34:12 Persisten t depressiv e disorder 2695999741 Active 2024 Melissa Macias PA-C [address] [place] [address], [address] , [facility] 5 11:28:54 Restless legs syndrome 31543848 Active 2024 Melissa Macias PA-C [address] [place] [address], [address] , [facility] 5 11:29:39 Atypical chest pain 095689831 Active 2024 Melissa Macias PA-C [address] [place] [address], [address] , [facility] 5 12:45:48 Anemia 528557865 Active 2024 Valeria Baugh APRN, [employer] [address] [place] [address], [address] , [facility] 5 12:10:45 Acute kidney injury 18045947 Active 2024 Valeria Baugh APRN, [employer] [address] [place] [address], [address] , [facility] 5 12:13:44 Mycosis 1173980 Active 2024 Valeria Baugh APRN, [employer] [address] [place] [address], [address] , [facility] 5 16:49:11 Obstructi ve sleep apnea syndrome 26167082 Active 2024 Sindhu Pizarro [facility] 5 16:01:58 Acute urinary tract infection 066115042 Active 2024 Lawrence Grigsby [facility] 5 15:43:42 Alpha-1-a ntitrypsi n deficienc y 24735853 Active 2024 Sindhu Pizarro [facility] 5 16:23:34 Supravent ricular tachycard vt 1582380 Active 2024 KYA LAKE, JOSE G [address] [facility], [place], [address] , [facility] 16:44:22 Notes:Some problems listed i n Documents: #[id number], #[id number], #[id number] could not be added to this patient's chart. Please review these documents and add these problems to the patient's [...] Available Health Note 06/13/2024 15:08:02 Imaging Results None recorded. Procedure Notes None recorded. Medical Equipment None Reported. Allergies Allergen ID Allergen Name Allergen Category Reaction Reaction Severity Criticality Documentation Date Start Date Code Code System Note Provider Name and Address Organization Details Recorded Time 9544202 fentanyl medicatio n headache Not available Not available 10/14/20232012 4337 RxNorm React ion: Heada syeda; Nause a; Vomit ing; Comme nt: React ion Date: 23 Aug 2013 Annot ation s: PHILLY STINSON JUVENCIO 10Dec 2012 9:08P M Per pt repor t.; ; Brenda Natarajan [facility] 5 14:41:09 8048223 prochlorp erazine medicatio n anxiety Not available Not available 05/13/20242017 8704 RxNorm Yoli Sauceda [facility] 5 11:23:17 4132799 sumatript an medicatio n itching Not available Not available 05/13/20242017 78227 RxNorm Brenda Natarajan [facility] 5 14:41:28 2181856 metoclopr amide Not available other Not available Not available 05/13/20242022 6915 RxNorm Brenda Natarajan [facility] 5 14:41:18 1066379 diphenhyd ramine hydrochlo ride medicatio n anxiety rash Not available Not available Not available 05/13/20242017 1362 RxNorm Yoli Sauceda [facility] 5 11:23:17 8046178 Duragesic medicatio n headache Not available Not available 06/22/20242012 91275 8 RxNorm React ion: Heada syeda; Nause a; Vomit ing; Comme nt: React ion Date: 23 Aug 2013 Annot ation s: JUVENCIO SIEGEL 2012 9:08P M Per pt repor t.; ; Brenda Natarajan [facility] 5 14:41:05 7512212 Compazine medicatio n other Not available Not available 11/02/2024 89030 6 RxNorm irrit abili ty Brenda Natarajan [facility] 5 14:41:50 0428950 Imdur medicatio n anxiety insomnia Not available Not available [facility] 05/30/2025 81926 2 RxNorm Melissa Macias PA-C [address] [place] [address], [address] [place] [address] 5 10:19:27 361933 Biaxin medicatio n nausea Not available Not available 10/12/20232006 82306 9 RxNorm React ion: Nause a; Not Available [facility] 4 21:45:38 255066 sumatript an succinate medicatio n Not available Not available Not available 10/12/20232006 48389 RxNorm React ion: Short ness of breat h; Arrhy thmia ; Not Available [facility] 4 21:45:39 686754 ciproflox acin hydrochlo ride medicatio n Not available Not available Not available 10/12/20232006 55504 RxNorm React ion: Synco pe; Short ness of breat h; Brenda Natarajan [facility] 5 14:40:56 524249 Demerol medicatio n Not available Not available Not available 10/12/20232008 60343 1 RxNorm Comme nt: Annot ation s: GRUND Y, BRAND ON 2008 3:38P M NAUSE A; ; Brenda Natarajan [facility] 5 14:40:59 096314 morphine sulfate medicatio n Not available Not available Not available 10/12/20232008 92466 RxNorm Comme nt: Annot ation s: GRUND Y, BRAND ON 2008 3:39P M NAUSE A; ; Brendaaarseli Natarajan [facility] 5 14:41:15 763912 hydromorp basim hydrochlo ride medicatio n Not available Not available Not available 10/12/20232008 08624 7 RxNorm Comme nt: Annot ation s: GRUND Y, BRAND ON 2008 3:39P M NAUSE A; ; Brenda Natarajan [facility] 5 14:41:12 Medications Name Sig Start Date Stop Date Status Note LastModified by Organization Details LastModified Time new customer packet NEW CUSTOMER PACKET 11/02 completed Not Available Not Available Not Available quetiapine 25 mg tablet 1-2 tabs at bedtime 2024 active Not Available Not Available Not Avai lable celecoxib 200 mg capsule TAKE ONE CAPSULE BY MOUTH TWICE DAILY 05/30 completed Not Available Not Available Not Available cyclobenza dontrell 10 mg tablet TAKE ONE TABLET THREE TIMES DAILY NEEDED 11/02 completed Not Available Not Available Not Available fluconazol e 100 mg tablet TAKE ONE TABLET ONCE 06/15 completed Not Available Not Available Not Available atorvastat in 40 mg tablet Take 1 tablet every day by oral route. 07/04 completed Not Available Not Available Not Available methocarba mol 500 mg tablet TAKE ONE TABLET FOUR TIMES DAILY NEEDED for muscle pain 05/30 completed Not Available Not Available Not Available doxepin 50 mg capsule TAKE ONE CAPSULE AT BEDTIME 12/01 completed Not Available Not Available Not Available atorvastat in 80 mg tablet Take 1 tablet every day by oral route. 05/30 completed caused muscle cramps Not Available Not Available Not Available venlafaxin e ER 37.5 mg capsule,ex tended release 24 hr TAKE ONE CAPSULE BY MOUTH EVERY DAY FOR ONE WEEK; THEN take TWO capsules EVERY DAY thereaft er 05/02 completed Not Available Not Available Not Available carvedilol 6.25 mg tablet Take 1 tablet every day by oral route. 03/28 completed Not Available Not Available Not Available venlafaxin e ER 75 mg capsule,ex tended release 24 hr One tab daily along with the 150 mg for total of 225 mg daily 2024 active Not Available Not Available Not Avai lable carvedilol 12.5 mg tablet TAKE ONE TABLET TWICE DAILY active Not Available Not Available No t Available clindamyci n HCl 300 mg capsule TAKE ONE CAPSULE EVERY 6 HOURS UNTIL GONE 05/30 completed Not Available Not Available Not Available citalopram 40 mg tablet TAKE ONE TABLET BY MOUTH DAILY 05/30 completed Not Available Not Available Not Available tizanidine 4 mg tablet TAKE ONE TABLET BY MOUTH EVERY 6 HOURS NEEDED FOR ANXIETY 2024 active Not Available Not Available Not Avai lable fluconazol e 150 mg tablet take 1 tablet now and may repeat in 3 days if needed 05/30 completed Not Available Not Available Not Available metoprolol succinate ER 50 mg tablet,ext ended release 24 hr TAKE ONE TABLET BY MOUTH DAILY 03/10 completed Not Available Not Available Not Available valacyclov ir 1 gram tablet TAKE ONE TABLET BY MOUTH EVERY 8 HOURS 06/15 completed Not Available Not Available Not Available hydrocodon e 5 mg-acetami nophen 325 mg tablet TAKE ONE TABLET BY MOUTH EVERY 6 HOURS NEEDED FOR PAIN 07/04 completed Not Available Not Available Not Available sucralfate 1 gram tablet TAKE ONE TABLET BY MOUTH FOUR TIMES DAILY before meals and nightly 06/15 completed Not Available Not Available Not Available metoprolol succinate ER 200 mg tablet,ext ended release 24 hr TAKE ONE TABLET BY MOUTH DAILY 05/17 completed Not Available Not Available Not Available ondansetro n HCl 4 mg tablet TAKE ONE TABLET BY MOUTH EVERY 6 HOURS FOR NAUSEA 05/30 completed Not Available Not Available Not Available metoprolol succinate ER 100 mg tablet,ext ended release 24 hr 200 mg by oral route. 05/09 completed Not Available Not Available Not Available doxepin 75 mg capsule TAKE ONE CAPSULE BY MOUTH DAILY 03/28 completed Not Available Not Available Not Available Lantus U-100 Insulin 100 unit/mL subcutaneo us solution inject 80 units in the evening 11/02 completed Not Available Not Available Not Available clindamyci n HCl 150 mg capsule TAKE TWO CAPSULES EVERY 8 HOURS UNTIL GONE 07/04 completed Not Available Not Available Not Available venlafaxin e ER 150 mg capsule,ex tended release 24 hr take one capsule by mouth daily along with 75 mg tab daily for total of 225 mg daily 2024 active Not Available Not Available Not Avai lable promethazi ne 6.25 mg-codeine 10 mg/5 mL syrup take 5mL every 4-6 hours as needed for cough 06/15 completed Not Available Not Available Not Available clopidogre l 75 mg tablet TAKE ONE TABLET BY MOUTH DAILY 06/21 completed Not Available Not Available Not Available ciprofloxa walter 250 mg tablet TAKE ONE TABLET BY MOUTH TWICE DAILY FOR FIVE DAYS 12/01 completed Not Available Not Available Not Available amlodipine 5 mg tablet TAKE ONE TABLET BY MOUTH ONCE DAILY active Not Available Not Available No t Available ciprofloxa walter 500 mg tablet TAKE ONE TABLET BY MOUTH EVERY TWELVE HOURS FOR SEVEN DAYS 05/30 completed Not Available Not Available Not Available sulfametho xazole 800 mg-trimeth oprim 160 mg tablet TAKE ONE TABLET BY MOUTH EVERY TWELVE HOURS UNTIL GONE 03/10 completed Not Available Not Available Not Available hydrocodon e 10 mg-acetami nophen 325 mg tablet TAKE ONE TABLET BY MOUTH EVERY 8 HOURS NEEDED for acute pain 03/10 completed Not Available Not Available Not Available aspirin 81 mg tablet,del ayed release Take 1 tablet every day by oral route. 11/02 completed Not Available Not Available Not Available amitriptyl ine 50 mg tablet TAKE TWO TABLETS AT BEDTIME 11/02 completed Not Available Not Available Not Available isosorbide mononitrat e ER 60 mg tablet,ext ended release 24 hr TAKE ONE TABLET EVERY MORNING 05/30 completed Not Available Not Available Not Available alprazolam 0.5 mg tablet TAKE ONE TABLET TWICE DAILY NEEDED FOR ANXIETY 11/02 completed Not Available Not Available Not Available citalopram 20 mg tablet take 1 tablet daily with 40mg to equal 60mg daily 06/15 completed Not Available Not Available Not Available ropinirole 0.25 mg tablet TAKE 1 TO 3 TABLETS BY MOUTH AT BEDTIME active Not Available Not Available No t Available dicyclomin e 20 mg tablet TAKE ONE TABLET BY MOUTH TWICE DAILY active Not Available Not Available No t Available Humalog U-100 Insulin 100 unit/mL subcutaneo us solution infuse up to 150 units per day via insulin pump active Not Available Not Available No t Available hydrocodon e 7.5 mg-acetami nophen 325 mg tablet TAKE ONE TABLET BY MOUTH EVERY 6 HOURS for 3 days NEEDED for pain active Not Available Not Available No t Available cephalexin 500 mg capsule TAKE ONE CAPSULE BY MOUTH TWICE DAILY FOR SEVEN DAYS 05/30 completed Not Available Not Available Not Available pantoprazo le 40 mg tablet,del ayed release TAKE ONE TABLET BY MOUTH DAILY active Not Available Not Available No t Available lidocaine 5 % topical patch apply 1 patch daily. leave patch on for up to 12 hours and leave off for 12 hours before applying new patch active Not Available Not Available No t Available hydroxyzin e HCl 25 mg tablet TAKE 1 TO 2 TABLETS AT BEDTIME active Not Available Not Available No t Available albuterol sulfate HFA 90 mcg/actuat ion aerosol inhaler inhale one puff every 4 hours as needed for wheezing active Not Available Not Available No t Available norethindr one (contracep tive) 0.35 mg tablet TAKE ONE TABLET DAILY 06/15 completed Not Available Not Available Not Available ondansetro n 4 mg disintegra ting tablet dissolve 1 tablet on the tongue every 6-8 hours as needed for nausea active Not Available Not Available No t Available cefdinir 300 mg capsule TAKE ONE CAPSULE EVERY TWELVE HOURS UNTIL GONE 03/10 completed Not Available Not Available Not Available fluticason e propionate 50 mcg/actuat ion nasal spray,susp ension use 1 spray in each nostril twice a day 06/15 completed Not Available Not Available Not Available diazepam 5 mg tablet take 1 tablet by mouth 30 minutes prior to mri as needed, as directed 11/02 completed Not Available Not Available Not Available amoxicilli n 875 mg-potassi um clavulanat e 125 mg tablet Take 1 tablet every 12 hours by oral route for 7 days. 06/27 completed Not Available Not Available Not Available Novolog FlexPen U-100 Insulin aspart 100 unit/mL (3 mL) subcutaneo us 3 times a day by sub-q route. 05/09 completed Not Available Not Available Not Available rosuvastat in 20 mg tablet TAKE ONE TABLET BY MOUTH EVERY DAY active Not Available Not Available No t Available Crestor 10 mg tablet Take 1 tablet every day by oral route. 07/04 completed Not Available Not Available Not Available nitrofuran toin monohydrat e/macrocry stals 100 mg capsule TAKE ONE TABLET BY MOUTH TWICE DAILY UNTIL GONE 06/15 completed Not Available Not Available Not Available pregabalin 50 mg capsule TAKE ONE CAPSULE BY MOUTH THREE TIMES DAILY for neuralgi a 03/10 completed Not Available Not Available Not Available ranolazine ER 500 mg tablet,ext ended release,12 hr TAKE ONE TABLET TWICE DAILY 06/15 completed Not Available Not Available Not Available Lantus Solostar U-100 Insulin 100 unit/mL (3 mL) subcutaneo us pen Inject 80 units by sub-q route. 06/15 completed Not Available Not Available Not Available Humalog KwikPen (U-100) Insulin 100 unit/mL subcutaneo us Inject 3 times a day by sub-q route. 09/15 completed Not Available Not Available Not Available sodium,pot assium,mag sulfates 17.5 gram-3.13 gram-1.6 gram oral soln Take 354 mL by oral route as directed for 1 day. 04/28 completed Not Available Not Available Not Available TRUEplus Insulin 1 mL 31 gauge x 5/16 syringe use with insulin up to four times daily and as needed as directed 06/15 completed Not Available Not Available Not Available Aimovig Autoinject or 70 mg/mL subcutaneo us auto-injec tor inject 70 mg subcutan eously once monthly as directed active Not Available Not Available No t Available Aimovig Autoinject or 140 mg/mL subcutaneo us auto-injec tor Inject 140 mg once monthly 2024 active Not Available Not Available Not Avai lable Ubrelvy 100 mg tablet 05/09 completed Not Available Not Available Not Available Dexcom G7 Bead Cutter USE PER MANUFACT URER DIRECTIO NS active Not Available Not Available No t Available Dexcom G7 Sensor device CHANGE SENSOR EVERY 10 DAYS PER MANUFACT URER active Not Available Not Available No t Available Omnipod 5 G6-G7 Pods (Gen 5) subcutaneo us cartridge change pod every 2 days active Not Available Not Available No t Available Vitals Date Recorded Body height Body mass index (BMI) Body weight Respiratory rate Body temperature Heart rate Oxygen saturation Oxygen saturation in Arterial blood by Pulse oximetry Systolic And Diastolic Provider Name and Address Organization Details Last Updated DateTime 5 170.18 cm 42.6 kg/m2 446114. 12 g 18 /min 98 [degF] 71 /min 98 % 98 % 112/60 mm[Hg] Jeaneth adrian [facility] 5 16:26:31 Date Recorded Body height Body mass index (BMI) Body weight Heart rate Respiratory rate Oxygen saturation Oxygen saturation in Arterial blood by Pulse oximetry Systolic And Diastolic Provider Name and Address Organization Details Last Updated DateTime 5 170.18 cm 41.7 kg/m2 313220. 57 g 77 /min 14 /min 97 % 97 % 130/62 mm[Hg] Yoli Sauceda [facility] 5 09:55:15 Date Recorded Body height Body mass index (BMI) Body weight Heart rate Oxygen saturation Oxygen saturation in Arterial blood by Pulse oximetry Systolic And Diastolic Provider Name and Address Organization Details Last Updated DateTime 5 170.18 cm 42.7 kg/m2 339857. 28 g 91 /min 96 % 96 % 150/82 mm[Hg] Kate Jolly [facility] 5 15:47:28 Date Recorded Body height Body mass index (BMI) Body weight Heart rate Systolic And Diastolic Provider Name and Address Organization Details Last Updated DateTime 06/07/2025 170.18 cm 42.4 kg/m2 852162.5 3 g 92 /min 126/64 mm[Hg] Lawrence Grigsby [facility] 06/07/2025 15:10:01 Date Recorded Body height Heart rate Oxygen saturation Oxygen saturation in Arterial blood by Pulse oximetry Body mass index (BMI) Body weight Systolic And Diastolic Provider Name and Address Organization Details Last Updated DateTime 170.18 cm 76 /min 97 % 97 % 42.9 kg/m2 524251. 31 g 114/62 mm[Hg] Audrey Tirado [facility] 16:04:15 Date Recorded Body height Body mass index (BMI) Body weight Heart rate Respiratory rate Oxygen saturation Oxygen saturation in Arterial blood by Pulse oximetry Systolic And Diastolic Provider Name and Address Organization Details Last Updated DateTime 170.18 cm 42.6 kg/m2 937936. 12 g 77 /min 16 /min 96 % 96 % 128/64 mm[Hg] Yoli Sauceda [facility] 11:22:40 Social History Question Answer Notes LastModified by Organizat ion Details LastModified Time Tobacco Smoking Status Never Smoker Not Available Health Note 06/13/2024 15:08:02 Do You Have An Advance Directive? Yes [email or web address] Information not available 06/13/2024 What Is Your Level Of Caffeine Consumption? Moderate [email or web address] Information not available 06/13/2024 What Is Your Code Status? Full Code [email or web address] Information not available 06/13/2024 How Many Times Per Week Do You Exercise? 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 07/04/2025 [email or web address] Information not available 07/04/2025 What Is Your Relationship Status? [email or web address] Information not available 06/13/2024 Has Tobacco Cessation Counseling Been Provided? Yes [email or web address] Information not available 03/28/2025 On What Date Was Tobacco Cessation Counseling Provided? 03/28/2025 [email or web address] Information not available 03/28/2025 Sex: Unknown Functional Status Question Answer Note LastModified by Organizat ion Details LastModified Time How many times per week do you consume alcohol? Less than 1 time per week [email or web address] Information not available 06/13/2024 Do you use any illicit or recreational drugs? No [email or web address] Information not available 06/13/2024 What is your level of alcohol consumption? Occasional [email or web address] Information not available 06/13/2024 Are you currently employed? No [email or web address] Information not available 06/13/2024 What is your occupation? Disabled [email or web address] Information not available 06/13/2024 What is your exercise level? Occasional [email or web address] [...] High Blood Pressure Y Arthritis Y Hyperlipidemia Y Cancer Y Thyroid Problems N Stroke N Asthma Y COPD N Depression Y Anemia Y Seizures N Heart Disease Y Fibromyalgia Y Osteoporosis N Kidney Disease N [...] Influenza, recombinant, quadrivalent, PF 1 completed Brenda Deraser [facility] 11/02/2024 14:40:15 Influenza, recombinant, quadrivalent, PF 0 completed Brenda Natarajan [facility] 11/02/2024 14:40:15 zoster recombinant 1 completed Brenda Natarajan [facility] 11/02/2024 14:40:15 zoster recombinant 1 completed Brenda Natarajan [facility] 11/02/2024 14:40:15 COVID-19, mRNA, LNP-S, PF, 100 mcg/0.5mL dose or 50 mcg/0.25mL dose 1 completed Brenda Natarajan [facility] 11/02/2024 14:40:15 COVID-19, mRNA, LNP-S, PF, 100 mcg/0.5mL dose or 50 mcg/0.25mL dose 1 completed Brenda Natarajan [facility] 11/02/2024 14:40:15 COVID-19, mRNA, LNP-S, PF, 100 mcg/0.5mL dose or 50 mcg/0.25mL dose 1 completed Brenda Natarajan [facility] 11/02/2024 14:40:15 pneumococcal polysaccharide PPV23 1 completed Brenda Natarajan [facility] 11/02/2024 14:40:15 influenza, unspecified formulation 4 completed Brenda Natarajan [facility] 11/02/2024 14:40:15 influenza, unspecified formulation 4 completed Brenda Natarajan [facility] 11/02/2024 14:40:15 influenza, unspecified formulation 3 completed [facility] 11/02/2024 14:40:15 Tdap 7 completed Brendaaraseli [facility] 11/02/2024 14:40:15 Influenza, split virus, trivalent, preservative 1 completed Brenda Deraser null, [facility] 11/02/2024 14:40:15 Influenza, split virus, quadrivalent, PF 7 completed Brendaaraseli Natarajan [facility] 11/02/2024 14:40:15 Past Encounters Encounter ID Performer Location Encounter Start Date Encounter Closed Date Diagnosis/Indication Diagnosis SNOMED-CT Code Diagnosis ICD10 Code Diagnosis IMO Codes Diagnosis Note [id number] Drake Mcneal MD [facility] ([facility] [address] [place] [address] 05/17/2024 13:49:24 05/17/2024 14:46:03 Chest pain 88321295 R07.9 [id number] Eren Oswald PA-C [address] [facility] ([place]) [address] [place] [address] 06/15/2024 14:10:45 06/15/2024 16:32:35 Abdominal pain 27468213 R10.9 Type 2 osmin betes mellitus 33238948 E11.9 Coronary arteriosclerosis 72980656 I25.10 [id number] Stacey ahmadi MD [address] [facility] ([place]) [address] [place] [address] 06/21/2024 12:42:22 06/21/2024 16:39:19 Thoracic radiculopathy 71065770 M54.14 Cervical radiculopathy 42198822 M54.12 Lumbar spondylosis 02472 0009 M47.896 [id number] Tiffanie Painting [facility]N [facility] ([place]) [address] [place] [address] 07/05/2024 14:39:55 07/05/2024 15:35:42 Neuropathy due to type 2 diabetes mellitus 8844673992 44928 E11.40 Z79.4 58588432 [id number] Stacey ahmadi MD [address] [facility] ([place] [address] [place] [address] 08/04/2024 12:16:15 08/04/2024 14:29:11 Spinal arachnoid cyst 211593685 G96.198 13740177 [id number] Ned Brenda [facility] ([place]) [address] [place] [address] 08/04/2024 15:26:47 08/04/2024 16:07:31 Type 2 diabetes mellitus 89814751 E11.9 Patient was seen in office for [...] ing of today's education and discussion . [id number] MarinoBrenda [facility] ([place]) [address] [place] [address] 08/29/2024 14:23:40 08/29/2024 16:23:00 Type 2 diabetes mellitus 14594195 E11.9 Patient came in today for Omnipod 5 pump start. Education was provided on compatible gus and the Omnipod provided controller . Patient was able to choose a controller option. Patient choose to use their compatible phone. After starting the device, patient set their [...] Patient inserted the pod on their left arm. We were able to activate the pod. [...] then, patient had no questions or concerns. [id number] Pauly Vizcaino MD [facility] ([place]) [facility] [place] [address] 11/02/2024 14:29:38 11/02/2024 15:23:49 Screening mammography 16649017 Z12.31 [id number] History an d physical examination, annual for health maintenance 23079949 Z00.00 0625196 First enco unter by subject 776553291 Z76.89 [id number] Coronary arteriosclerosis 08390561 I25.10 Essential hypertension 72461334 I10 Morbid obesity 908000224 E66.01 90677 Neuropathy due to type 2 diabetes mellitus 5488090921 E11.40 Z79.4 22427530 Spinal arachnoid cyst 25 6885989 G96.198 82694478 Lumbar spondylosis 44990 0009 M47.896 Hypercholesterolemia 136 58328 E78.00 Gastroesop hageal reflux disease 616991744 K21.9 01163968 Dyspnea 341992296 R06.02 22110 Gastropare sis syndrome 498084805 K31.84 532154 Pain of le ft shoulder region 2176612560 M25.512 81323754 Bilateral cramp of muscle of lower limbs 7621174825 3563313 R25.2 85194414 Fibromyalgia 821891435 M 79.7 05715 History of asthma 564346 007 Z87.09 656570 Recurrent major depression in remission 67100899 F33.40 6201919 Primary insomnia 9128036 F51.01 81032 [id number] Pauly Vizcaino MD [facility] ([place]) [address] [place] [address] 12/01/2024 15:54:07 12/01/2024 17:05:19 Dyspnea 789429803 R06.02 96544 Swelling o f lower limb 347053701 M79.89 075520 [id number] Valeria Baugh APRN, [facility] ([place]) [address] [place] [address] 01/19/2025 11:51:35 01/19/2025 12:27:12 Preprocedural examination done 9714161698 70688 Z01.818 428959 Essential hypertension 79239390 I10 stable Coronary arteriosclerosis 11224542 I25.10 Neuropathy due to type 2 diabetes mellitus 2064065621 E11.40 Z79.4 18396546 [id number] Tiffanie Painting [facility] ([place]) [address] [place] [address] 03/10/2025 11:32:45 03/10/2025 12:00:56 Neuropathy due to type 2 diabetes mellitus 0683918152 93112 E11.40 Z79.4 09941661 [id number] Melissa Macias PA-C [facility] ([place]) [address] [place] [address] 03/28/2025 10:36:47 05/02/2025 10:01:03 Persistent depressive disorder 1836793473 F34.1 74284840 also anxiety and helps with hot flashes Restless l egs syndrome 60327569 G25.81 58253 Atypical chest pain 1025 16518 R07.89 849279 Hypertensive disorder 38 677483 I10 [id number] Melissa Macias PA-C [facility] ([place]) [address] [place] [address] 04/11/2025 09:16:47 04/11/2025 11:19:07 Primary insomnia 0977668 F51.01 68809 History of migraine 1614 99088 Z86.69 1551588 [id number] Valeria Baugh APRN, CNP [facility] ([place]) [address] [place] [address] 04/20/2025 11:18:43 04/20/2025 15:31:32 Anemia 678348651 D64.9 [id number] Acute kidney injury 1466 9001 N17.9 1441790 Bilateral cramp of muscle of lower limbs 2792508710 1074433 R25.2 10605881 Dyspnea 930482928 R06.00 39413039 [id number] Valeria Baugh APRN, CNP [facility] ([place]) [address] [place] [address] 04/28/2025 16:03:43 04/28/2025 17:55:49 Acute kidney injury 03900298 N17.9 5836830 Mycosis 9222244 B37.9 [id number] Post-disch arge follow-up 872661817 Z09 996798 Bilateral cramp of muscle of lower limbs 9453369402 7668581 R25.2 92944471 Hypercholesterolemia 136 19729 E78.00 [id number] [facility] ([place]) [address] [place] [address] 05/30/2025 09:44:32 05/30/2025 14:35:57 Primary insomnia 0296830 F51.01 63074 Dyspnea on exertion 6084 5006 R06.09 695114 Fibromyalgia 965960211 M 79.7 84259 Pain of le ft shoulder region 9787148921 M25.512 24845464 Migraine 91612103 G43.90 9 Obstructiv e sleep apnea syndrome 63090795 G47.33 3249094 [id number] Carrol Villagomez MD [facility] ([place]) [address] [facility] [place] [address] 06/05/2025 15:41:18 06/05/2025 16:01:50 Dyspnea 165271932 R06.02 R06.00 54899 [id number] Uncertain as to the etiology of her dyspnea and chest pain. I do question if asthma versus reactive airway disease disease could be a contributi ng factor. She does have COPD that runs in her family so I will check an alpha-1 swab on her. Unfortunat jose luis the patient arrived late and did not have any lung function testing performed today so we will get her scheduled for PFT and methacholi ne challenge. She will continue on her albuterol as needed for the time being. Will need to get a CXR today and look into getting the results of the CT scan performed at [facility] this past spring. Addendum, CTA of the chest from 06/03/2024 at [facility] showed unremarkab le pulmonary findings. She has some scattered linear atelectasi s, no consolidat ion, nodule or fluid. No mediastina l or hilar adenopathy . There was significan t coronary artery disease noted on that study. Obstructiv e sleep apnea syndrome 02914251 G47.33 90345 She has a longstandi ng history of sleep apnea diagnosed about 20 years ago down in [place] at an unknown institutio n. Is not on any treatment at this time. I do suspect she does have significan t sleep apnea that is contributi ng to her symptomato logy and we will get her worked up with a split-nigh t sleep study and trial PAP if positive. [id number] [facility] ([place]) [address] [facility] [place] [address] 06/07/2025 14:55:39 06/07/2025 17:49:29 Acute kidney injury 62923134 N17.9 [id number] Melissa Macias PA-C [facility] ([place]) [address] [place] [address] 07/04/2025 11:15:12 07/04/2025 12:20:08 Primary insomnia 6334329 F51.01 Persistent depressive disorder 8088378057 F34.1 also anxiety and helps with hot flashes Migraine 73196065 G43.90 9 Recurrent major depression in remission 47058828 F33.40 6341000 Hypertensive disorder 38 153608 I10 Health Concerns Section Related Observation LastModified by Organization Detai ls LastModified Time None Recorded Concern Status LastModified by Organization Details LastModified Time None Recorded Advance Directives Directive Y: Payers Insurance Date Sequence Insurance Name Policy Number Policy Garcia Covered Member ID Garcia Member ID Guarantor Name 06/15/2025 1 [facility] (O) [id number] Leti Salgado Rice [id number] Leti Salgado Rice 03/22/2024 1 *SELF PAY* Isidro White 06/17/2025 2 [place] [facility] Leti White [id number] Leti Salgado Rice 06/15/2025 1 [place] Leti White [id number] Leti P Rice 07/04/2025 1 [facility] (MEDICARE REPLACEMENT/A DVANTAGE - PPO) [id number] Leti P Rice [id number] Leti White Notes Date Note Type Note Provider Name and Address Organization Details Recorded Time 5 text/html ROS as noted in the HPI pt here today for TCM [facility] [place]. 04/12/25-04/19/25.Dx cellulitis to buttocks and muscle cramps/ spasms to legs, body aches.Treated with abx for the cellulitis. Finished antibiotic course.Went to local ER last night with Right lower abdominal pain and treated for UTI.BS running 165 after regular soda.MALENA to see Nephrology. Possibly from vanco treatment while hospitalized. Drinking more water.pt is to hold atorvastatin and amlodipine.Currently having yeast sx including itching and mild white discharge. Valeria Baugh, UNIT AID, BILINGUAL INSIDE SALES REPRESENTATIVE [address] [place] [address], [phone], [facility] 05/03/2025 10:13:46 5 text/html Leti Gallego a 54 year oldfemalepresenting for care. Date of last pap smear:09/18/2021ate of last mammogram:04/28/2022 Patient here for follow up for ER visits. Patient has not been sleeping. Patient has been awake since 8 am yesterday currently. Patient only slept 4 1/2 hours from Thursday to Thursday.-hasn't had chest pain for a couple of days-UTI cleared [id number] woman presents for follow-up of severe insomnia and recent medication changes. She reports chest pain had improved, but after starting isosorbide mononitrate (Imdur) several weeks ago she developed marked anxiety and profound insomnia. Imdur was stopped last with partial improvement in anxiety; however, insomnia persists. She has longstanding sleep difficulties since ~2011 but has never experienced this severity (e.g., multiple nights with no sleep, often lying awake all night despite strict sleep hygiene; if sleep occurs, only 1-2 hours). She denies manic symptoms (no grandiosity, impulsive/risky behaviors, or personality changes). She denies suicidal or homicidal ideation. Hydroxyzine up to 75 mg provided inconsistent benefit (some improvement on Thu/Thu; none Thursday). Prior trials: trazodone up to 100-150 mg was ineffective and difficult to discontinue; benzodiazepines (e.g., alprazolam) ineffective; haloperidol in ED previously caused severe activation/insomnia (patient refuses future use). She recently restarted Aimovig for migraines (2nd dose taken; 3rd due Jun 23); understands it may take ~3 months for full effect and previously required dose increase. She reports dyspnea on exertion with episodes of tachycardia (home HR up to 122) and transient desaturation to 86% with activity that improves with rest. She has a history of asthma but has not been on daily controller therapy for years; currently uses albuterol PRN. She recently transitioned from metoprolol to carvedilol (now 12.5 mg BID) and notes worsening breathing since dose increases. She has a pulmonology visit scheduled on Thursday for evaluation and possible PFTs. Prior sleep studies reportedly showed only mild sleep apnea; CPAP trial was not beneficial. She reports chronic pain issues including thoracic arachnoid cyst with recurrent fluid accumulation causing thoracic pain with band-like radiation, cervical radiculopathy (prior injection helpful, now wearing off), and a 50% rotator cuff tear treated with injection that provided relief; considering repeat injection. She is seeking a second opinion with spine surgery (Dr. Leavitt) and continues with pain management. She denies current urinary symptoms (no dysuria, urgency, frequency). Melissa Macias PA-C [address] [place] [address], [phone], [facility] 05/30/2025 13:52:29 5 text/html 54-year-old who comes into pulmonary clinic for evaluation of shortness of breath. She carries a diagnosis of asthma for since her teenage years. She also has a diagnosis of GELACIO. She has not been on a CPAP machine for about 20 years when her sleep apnea was first diagnosed when she was living in [place]. The patient has been hospitalized multiple times for chest pain and shortness of breath. She is was at [facility] multiple times this past spring and did see pulmonary. It sounds like she just saw them in the hospital and did not make any follow-up appointments. She was hospitalized again in February with the similar chest pain and shortness of breath. She had a positive stress test and left heart cath did not show that she needed any stents. She does have a history of childhood asthma which she grew out of in young adulthood. Has not been on inhalers or taken allergy shots in many years now. She does wheeze periodically. She has an occasional cough. Her shortness of breath is pretty significant and she gets shortness of breath with any activity walking from room to room in the house. PMHx: Asthma, GELACIO, diabetes, morbid obesity, CAD, fibromyalgia, hyperlipidemia, hypertension depression,SurgHx: LHC, appendectomy, cholecystectomy, hernia repairSocHx: Never smoker but she does have a secondhand smoke exposure.FamHx: Mom with COPD and lung cancer. Patient's sister also has COPD Carrol Villagomez MD [address] [place] [address], [phone], [facility] 06/07/2025 13:51:55 5 text/html ROS as noted in the HPI Ms. 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, GERD, gastroparesis, IBS, and depression who is here for further evaluation an MALENA after being exposed to vancomycin for cellulitis Patient denies any fever, chills, or sweats.She denies any chest pain or shortness of breath.She continues to hydrate well and to avoid NSAIDs.Patient does state that she used to take Toradol for migraines.Patient is accompanied by her son David who is in the room with her permission.Patient states that she was in the hospital in April 2025 at [facility] for cellulitis and received IV vancomycin and her trough became too high and she had acute kidney failure but did not require dialysis. Past medical history as stated above. Family historyMother is of liver and lung cancerFather is of cardiomyopathySon is alive and healthy with high blood pressurePatient has 5 siblings who are all alive and healthy with high blood pressure. 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 Patient does report that her had end-stage renal disease and was on dialysis prior to his . Delia Hall PA-C [address] [place] [address], [phone], [facility] 06/07/2025 16:14:26 5 text/html Patient here for follow up after starting [id number] female presents for follow-up on mood, sleep, blood pressure, and migraines. Recently started quetiapine at bedtime (25 mg, with option to take 50 mg) to help sleep and mood/anxiety in addition to venlafaxine ER. Patient typically takes 25 mg; on nights she takes 50 mg she sleeps better but feels tired the next day if she cannot devote a full night of sleep. She prefers to keep the 25 mg tablets and continue 1-2 tablets at bedtime as needed. Venlafaxine ER has been at 150 mg daily for a little over a month. Patient reports partial improvement but ongoing intermittent anxiety; open to dose increase. Discussed that full benefit can take 4-6 weeks at a given dose. Migraines remain frequent, occurring approximately every 7-10 days. She has been on Aimovig 70 mg monthly for three months without meaningful improvement; she previously responded when increased to 140 mg monthly and requests to increase again. Ubrelvy has not provided relief. She describes occasional visual aura (flashes of white light) at onset, consistent with her prior migraine pattern, without new or focal neurologic symptoms. Patient inquired about obtaining nalbuphine (Nubain) 20 mg IM plus ondansetron 4 mg IM for severe migraines at the local ER per standing order, as previously used effectively elsewhere; clinician will review feasibility with supervising physician. Blood pressure had been elevated previously but is well controlled today. Patient follows with endocrinology for diabetes-related labs (A1C). She is having difficulty with GI-directed colonoscopy prep due to intolerance of the volume and has been unable to get a response from the GI office despite multiple attempts; requests assistance in contacting them. Patient asked about receiving a flu shot today and is agreeable if feeling well. Melissa Macias PA-C [address] [facility], [place], [phone], [facility] 07/04/2025 12:17:39 OBGyn Episode No OBEpisode recorded.
--- OUTSIDE RECORDS SUMMARY | 2025-07-04 19:56 | XMS_ITS | Encounter Summary ---
Author Organization [facility] Address [address] [place] [address] Care Team Providers Care Founder Ceo & President Name Role Phone Hero Bearden MD Unavailable Ce Villalobos MD Unavailable Brissa Tijerina MD Primary Care Provider + Reason for Visit * Reason Onset Date Comments Preprocedure Call 01/13/2025 Corrective And Manual Arts Therapist spoke jojo Landeros about needing H&P within 30 days of MRI with anesthesia appt on 01/20/25. Leti to call PCP to schedule. Encounter Details Date Type Department Care Team (Latest Contact Info) Description 01/13/2025 Pre-Procedure Call [facility] Interventional Radiology [address] [place] [address] Stella Castillo, RN Preprocedure Call (Corrective And Manual Arts Therapist spoke with Leti about needing H&P within [...] Recorded Patient Health Questionnaire-2 Score 0 10/31/2022 [facility] of Occupat ional Health - Occupational Stress [...] place to sleep or slept in a [place] health care facility (including now)? Yes 05/08/2023 Comments No Sex and Gender Information Value Date Recorded Sex Assigned at Female 09/30/2024 10:51 PM HOSEMAN Legal Sex Female 7:02 PM CDT Gender [...] on filedocumented in this encounter Care Teams Founder Ceo & President Relationship Specialty Start Date End Date Brissa Tijerina MD [address] [place] [id number] PCP - General FAMILY PRACTICE 11/03/24 Hero Bearden MD Floor Tiling Professional OBGYN 04/04/22 Ce Villalobos MD [address] [place] [address] [place] [employer] CARDIOVASCULAR DISEASE 07/18/22 documented as of this encounter
--- OUTSIDE RECORDS SUMMARY | 2025-07-04 19:56 | XMS_ITS | Encounter Summary ---
Author Organization [facility] Address [address] [place] [address] Care Team Providers Care Senior Sharepoint Architect Name Role Phone Yaneth Lagos MD Primary Care Provider [phone] Yaneth Lagos MD Primary Care Provider [phone] Hero Bearden MD Unavailable Adele Lagos MD Primary Care Provider [phone] Ce Villalobos MD Unavailable Brissa Tijerina MD Primary Care Provider + Encounter Details Date Type Department Care Team (Late st Contact Info) Description 06/24/2017 Abstract [facility] CONVERSION [address] [place] [address] , Dot Springer MD Social History Tobacco Use Types Packs/Day Years Used Date Smoking Tobacco: Never Assessed Comments Unknown Sex and Gender Information Value Date Recorded Sex Assigned at Female 09/30/2024 10:51 PM MILEAGE CLERK Legal Sex Female 7:02 PM CDT Gender Identity Not on file Sexual Orientation Not on file documented as of this encounter Plan of Treatment Not on file documented as of this encounter Visit Diagnoses Not on filedocumented in this encounter Care Teams Senior Sharepoint Architect Relationship Specialty Start Date End Date Yaneth Lagos MD [facility] [address] [facility] [address] [place] [phone] PCP - General 03/22/17 04/07/18 Yaneth Lagos MD [address] [facility] [address] [place] [address] PCP - General FAMILY PRACTICE 09/17/19 06/15/22 Adele Lagos MD [address] [place] [address] PCP - General INTERNAL MEDICINE 06/16/22 11/02/24 Brissa Tijerina MD [address] [place] [address] PCP - General FAMILY PRACTICE 11/03/24 Hero Bearden MD [address] [phone] Ticket Printer And Tagger OBGYN 04/04/22 Ce Villalobos MD [address] [place] [address] [place] Sane Nurse CARDIOVASCULAR DISEASE 07/18/22 documented as of this encounter
--- OUTSIDE RECORDS SUMMARY | 2025-07-04 19:56 | XMS_ITS | Clinical Summary ---
Author Organization [facility] Address [address] [place] [address] Care Team Providers Care Twine Reeling Machine Operator Name Role Phone Prem Bearden MD Unavailable [...] Problem Noted Date Diagnosed Date Unstable angina 05/07/2023 Chest pain 04/18/2023 ASCUS with positive high risk HPV cervical 11/06 Overview (11/06/2022): 10/31/2022 - ASCUS with positive high risk HPV. Second degree uterine prolapse 10/31/2022 ASCUS of cervix with negative high risk HPV /05/2021 Overview (03/22/2021): 03/15/2021 Migraine 02/14/2021 HTN (hypertension) 02/14/2021 Diabetes mellitus type 2, controlled 02/14/2021 Resolved Problems Problem Noted Date Diagnosed Date Resolved Date Cervical high risk human pap illomavirus (HPV) DNA test positive 02/14/2021 02/23/2023 Overview (03/15/2021): Pap with positive high risk HPV 05/02/2019 and 11/17/2019. Encounters Date Type Department Care Team Description 06/13/2025 7:42 PM CDT - 06/13/2025 10:23 PM CDT Emergency [facility] Emergency Services [address] [place] [place] [address] Edwardo Ken MD Back Pain Discharge Disposition: Home or Self Care (Routine Discharge) 06/13/2025 Travel 05/05/2025 4:40 PM CDT - 05/05/2025 6:34 PM CDT Emergency [facility] Emergency [address] [place] [address] Marco A Gómez, [place] Abdominal Pain Discharge Disposition: Home or Self Care (Routine Discharge) 05/05/2025 Travel from Last 3 Months Family History [...] Health Questionnaire-2 Score 0 10/31/2022 [facility] of Occupat ional Health - Occupational Stress [...] place to sleep or slept in a detention (including now)? Yes 05/08/2023 Comments No Sex and Gender Information Value Date Recorded Sex Assigned at Female 09/30/2024 10:51 PM PROGRAM TECHNICIAN Legal Sex Female 7:02 PM CDT [...] HPV 10/31/2027 Zoster Vaccines Completed 09/13/2021, 06/16/2021 Hepatitis A Vaccines Aged Out No long [...] PAPILLOMAVIRUS, HIGH-RISK TYPES Routine 10/31/2022 12:00 PM PROGRAM TECHNICIAN CYTOPATH CERV/VAG THIN LAYER Routine 10/31/2022 9:01 AM PROGRAM TECHNICIAN Encounter for gynecological examination with Papanicolaou smear of cervix MAMMOGRAM GENERIC (SCAN ORDER) 11/17/2019 from Last 3 Months or Most Recently Relevant to Health Maintenance Results * (ABNORMAL) COMPREHENSIVE METABOLIC PANEL (05/05/2025 4:44 PM CDT) SODIUM S/P/B 140 136 - 145 MMOL/L 05/05/2025 5:22 PM CDT [facility] POTASSIUM S/P/B 4.0 3.5 - 5.1 MMOL/L 05/05/2025 5:22 PM CDT [facility] CHLORIDE S/P/B 110 97 - 115 MMOL/L 05/05/2025 5:22 [facility] CO2 26.3 21.0 - 32.0 MMOL/L 05/05/2025 5:22 PM [facility] GLUCOSE 132(H) 74 - 106 MG/DL 05/05/2025 5:22 PM [facility] BUN 16 7 - 18 MG/DL 05/05/2025 5:22 PM [facility] CREATININE S/P/B 1.21(H) 0.55 - 1.02 MG/DL 05/05/2025 5:22 PM T [facility] CALCIUM S/P/B 9.8 8.5 - 10.1 MG/DL 05/05/2025 5:22 PM T [facility] BILIRUBIN TOTAL S/P/B 0.8 0.2 - 1.0 MG/DL 05/05/2025 5:22 PM T [facility] ALKALINE PHOSPHATASE S/P/B 155(H) 41 - 108 U/L 05/05/2025 5:22 PM T [facility] AST 49(H) 15 - 37 U/L 05/05/2025 5:22 PM T [facility] ALT 45 13 - 56 U/L 05/05/2025 5:22 PM [facility] TOTAL PROTEIN S/P/B 7.7 6.4 - 8.2 G/DL 05/05/2025 5:22 PM [facility] ALBUMIN S/P/B 3.3(L) 3.4 - 5.0 G/DL 05/05/2025 5:22 PM T [facility] ANION GAP 3.7 2.0 - 10.0 MMOL/L 05/05/2025 5:22 PM [facility] OSMOLALITY (CALC) 293 MOSM/KG 025 5:22 PM T [facility] Comment:REFERENCE RANGE NOT ESTABLISHED GFR ESTIMATE 53(L) >90 ML/MIN/1. 73 M2 05/05/2025 5:22 PM CDT [facility] GFR NOTES GFR REFERENCE S: 05/05/2025 5:22 PM CDT [facility] Comment: THE ESTIMATED GFR IS CALCULATED [...] CDT Jaylin Rajan NP LABORATORY Final Result [facility] [address] [place] [address], [phone] * (ABNORMAL) CBC W/DIFF AUTOMATED (05/05/2025 4:44 PM CDT) WBC 6.77 4.00 - 10.80 x10'3/uL 05/05/2025 4:55 PM CDT [facility] RBC 4.21 4.10 - 5.40 x10'6/uL 05/05/2025 4:55 PM CDT [facility] HGB 11.4(L) 12.0 - 16.0 G/DL 05/05/2025 4:55 PM CDT [facility] HCT 36.0 36.0 - 47.0 % 05/05/2025 4:55 PM CDT [facility] MCV 85.5 78.0 - 100.0 FL 05/05/2025 4:55 PM CDT [facility] MCH 27.1 27.0 - 31.0 PG 05/05/2025 4:55 PM CDT [facility] MCHC 31.7(L) 33.0 - 36.0 G/DL 05/05/2025 4:55 PM CDT [facility] RDW 14.0 11.5 - 14.5 % 05/05/2025 4:55 PM CDT [facility] PLT 238 150 - 350 x10'3/uL 05/05/2025 4:55 PM CDT [facility] MPV 9.8 7.4 - 10.4 FL 05/05/2025 4:55 PM CDT [facility] DIFFERENTIAL TYPE AUTOMATED DIFFERENTIAL 05/05/2025 4:55 PM CDT [facility] SEG NEUTROPHILS 60.1 % 4:55 PM CDT [facility] LYMPHOCYTES 26.1 % 05/05/2025 4:55 PM CDT [facility] MONOCYTES 8.0 % 05/05/2025 4:55 PM CDT [facility] EOSINOPHILS 4.3 % 05/05/2025 4:55 PM CDT [facility] BASOPHILS 1.2 % 05/05/2025 4:55 PM CDT [facility] IMMATURE GRANS % 0.3 % 05/05/20 4:55 PM CDT [facility] ABS. NEUTROPHILS 4.07 1.60 - 8.30 x10'3/uL 05/05/2025 4:55 PM CDT [facility] ABS. LYMPHOCYTES 1.77 0.80 - 4.70 x10'3/uL 05/05/2025 4:55 PM CDT [facility] ABS. MONOCYTES 0.54 0.00 - 1.50 x10'3/uL 05/05/2025 4:55 PM CDT [facility] ABS. EOSINOPHILS 0.29 0.00 - 0.40 x10'3/uL 05/05/2025 4:55 PM CDT [facility] ABS. BASOPHILS 0.08 0.00 - 0.20 x10'3/uL 05/05/2025 4:55 PM CDT [facility] ABS. IMMATURE GRANULOCYTES 0.02 0.00 - 0.03 x10'3/uL 05/05/2025 4:55 PM CDT [facility] ABS. NUCLEATED RBC'S 0.00 0.00 - 0.01 x10'3/uL 05/05/2025 4:55 PM CDT [facility] NRBC % 0.0 % 05/05/2025 4:55 PM CDT [facility] 05/05/2025 4:44 PM CDT Jaylin Rajan NP LABORATORY Final Result Performing Organization Address [facility] de Phone Number [facility] [address] [place] [address], [phone] * LIPASE (05/05/2025 4:44 PM CDT) Pathologist [facility] LIPASE 25 13 - 75 UNITS/L 05/05/2025 5:22 PM CDT [facility] 05/05/2025 4:44 PM CDT Jaylin Rajan NP LABORATORY Final Result Performing Organization Address [facility] de Phone Number [facility] [address] [place] [address], [phone] * (ABNORMAL) LIPID PANEL (04/18/2023 6:36 AM CDT) CHOLESTEROL 188 MG/DL 04/18/2023 7:32 AM CDT [facility] Comment:DESIRABLE: <200 TRIGLYCERIDES 219 MG/DL 04/18/2023 7:32 AM CDT [facility] Comment:200-499 HIGH HDL 35(L) >49 MG/DL 04/18/2023 7:32 AM CDT [facility] LDL (CALCULATED) 109 MG/DL 04/18/20 7:32 AM CDT [facility] Comment:100-129 NEAR OR ABOV E OPTIMAL VLDL CALCULATION 44 MG/DL 04/18/20 7:32 AM CDT [facility] Comment:REFERENCE RANGE NOT ESTABLISHED CHOL/HDL RATIO 5.4 04/18/2023 7:32 AM CDT [facility] Comment:REFERENCE RANGE NOT ESTABLISHED LDL/HDL 3.1 04/18/2023 7:32 AM CDT [facility] Comment:REFERENCE RANGE NOT ESTABLISHED NON HDL CHOLESTEROL 153 MG/DL 04/18/2023 7:32 AM CDT [facility] Comment:REFERENCE RANGE NOT ESTABLISHED 04/18/2023 6:36 AM CDT Cornell TREJO LABORATORY Final Res ult Performing Organization Address [facility] Co de Phone Number [facility] [address] [place] [address], [phone] * (ABNORMAL) HEMOGLOBIN, GLYCOSYLATED (04/17/2023 4:24 PM CDT) HGB A1C 7.2(H) <5.7 % 04/17/2023 5:28 PM CDT [facility] ESTIMATED AVG GLUCOSE 160(H) 74 - 114 MG/DL 04/17/2023 5:28 PM CDT [facility] 04/17/2023 4:24 PM CDT Yoshi Edwards PA-C LABORATORY Final Result Performing Organization Address [facility] Co de Phone Number [facility] [address] [place] [address], [phone] * (ABNORMAL) HUMAN PAPILLOMAVIRUS, HIGH-RISK TYPES (10/31/2022 12:00 PM PROGRAM TECHNICIAN) SPEC DESCRIPTION CERVICAL/ ENDOCERVI SHWETA 11/03/2022 9:26 AM PROGRAM TECHNICIAN [facility] HPV DNA HIGH RISK POSITIVE( A) NEGATIVE 11/03/2022 5:31 PM PROGRAM TECHNICIAN [facility] Comment:SEE CYTOLOGY REPORT 10/31/2022 12:0 0 PM PROGRAM TECHNICIAN us Prem Bearden MD PATHOLOGY/CYTOLOGY ORDERABLES Fi nal Result [facility] [address] [place] [address], * Cytopath Cerv/Vag Thin Layer (10/31/2022 9:01 AM PROGRAM TECHNICIAN) THIN PREP PAP [place] [address] [place] [address] Department of Pathology Pathology Report CERVICAL/VAGINAL PAP SMEAR REPORT Name: LETI WHITE Age: 1 1970 (Age: 52) Location: [facility] [place] Sex: F Collected Date: 10/31/2022 [facility] #: [id number] Date Received: 11/03/2022 Date Reported: 11/05/2022 Provider: [...] and 68. Electronically Signed Out CHRIS Alcantara, MARIA G (ASCP) CLINICAL HISTORY Z01.419 SCREENING PAP TEST [...] is not effective in detecting cervical adenocarcinoma. [facility] 10/31/2022 9:01 AM PROGRAM TECHNICIAN 11/03/2022 9:01 AM PROGRAM TECHNICIAN Comment:CERVICAL/ENDOCERVICA L Prem Bearden MD PATHOLOGY/CYTOLOGY ORDERABLES Fi nal Result Performing Organization Address City/State/[facility] Co de Phone Number [facility] [address] [place] [address], [place] [phone] * MAMMOGRAM GENERIC (11/17/2019) Anatomical Region Laterality Modality Other 11/17/2019 Narrative 11/17/2019 Ordered by an unspecified provider. us Documents Scanned SCANNING Final Result from Last 3 Months or Most Recently Relevant to Health Maintenance Insurance [place] [address] [address] MEDICARE Advance Directives * Full Code (Latest Code Status on File) Date Activated Date Inactivated Comments 05/07/2023 9:34 PM 08/04/2023 5:02 PM * Full Code Date Activated Date Inactivated Comments 04/18/2023 1:16 AM 04/22/2023 2:48 PM Care Teams Twine Reeling Machine Operator Relationship Specialty Start Date End Date Brissa Tijerina MD [address] [place] [address] PCP - General FAMILY PRACTICE 11/03/24 Prem Bearden MD Spot Welder Body Assembly OBGYN 04/04/22 Ce Villalobos MD [address] [place] [address] [place] Manager Functional CARDIOVASCULAR DISEASE 07/18/22
--- OUTSIDE RECORDS SUMMARY | 2025-07-04 19:56 | XMS_ITS | Encounter Summary ---
Author Organization [facility] Address [address] [place] [address] Care Team Providers Care Pharmacy Sales Assistant Name Role Phone Yaneth Lagos MD Primary Care Provider [phone] Hero Bearden MD Unavailable Adele Lagos MD Primary Care Provider [phone] Ce Villalobos MD Unavailable Brissa Tijerina MD Primary Care Provider + Encounter Details Date Type Department Care Team (Late st Contact Info) Description 02/19/2019 Abstract SFL CONVERSION [address] [place] [address] , Generic Conversion, Social History Tobacco Use Types Packs/Day Years Used Date Smoking Tobacco: Never Smokeless Tobacco: Never Alcohol Use Standard Drinks/Week Comments No 0 (1 standard drink = 0.6 oz pur e alcohol) Comments Unknown Sex and Gender Information Value Date Recorded Sex Assigned at Female 09/30/2024 10:51 PM AUTOMATIC PROFILE SANDER OPERATOR Legal Sex Female 7:02 PM CDT Gender Identity Not on file Sexual Orientation Not on file documented as of this encounter Plan of Treatment Not on file documented as of this encounter Visit Diagnoses Not on filedocumented in this encounter Care Teams Pharmacy Sales Assistant Relationship Specialty Start Date End Date Yaneth Lagos MD [address] [place] [phone] PCP - General FAMILY PRACTICE 09/17/19 06/15/22 Adele Lagos MD [address] [place] [address] PCP - General INTERNAL MEDICINE 06/16/22 11/02/24 Brissa Tijerina MD [address] [place] [address] PCP - General FAMILY PRACTICE 11/03/24 Hero Bearden MD [address] [phone] Loading Unit Tool Setter OBGYN 04/04/22 Ce Villalobos MD [address] [place] [address] Trent Kiln Tender CARDIOVASCULAR DISEASE 07/18/22 documented as of this encounter
--- OUTSIDE RECORDS SUMMARY | 2025-07-04 19:56 | XMS_ITS | Continuity of Care Document ---
Author Organization [facility] Address [address] [place] [address] Care Team Providers Care Vmware Consultant Name Role Phone DRAKE FARRIS Manager Housekeeping PAULY VIZCAINO Primary Care Provider [phone] PAULY VIZCAINO Referring Provider [phone] DELIA HALL Electric Track Switch Maintainer Assessment Encounter Date Assessment Date Assessment LastModified by Organization Details LastModified Time 07/04/2025 07/04/2025 1. Persistent depressive disorder with [...] obtain a 3-month supply if allowed by pharmacy/insurer . - Ubrelvy reported as minimally effective. - Clinician to consult supervising physician regarding feasibility of standing orders for nalbuphine 20 mg IM plus ondansetron 4 mg IM for severe migraines at local ER; will update patient after discussion. 4. Essential hypertension, controlled - BP today 128/64 mmHg; continue current regimen. No changes made today. 5. GI symptoms/colonos copy preparation intolerance; difficulty contacting GI - Clinician will send another message to GI office to facilitate contact and discuss alternative prep options given intolerance; patient will also continue attempts to reach them. 6. Immunization need - Patient requested influenza vaccination today; proceed if patient is feeling well and no contraindication s. Follow-up: Return in approximately 1 month to reassess mood/anxiety and sleep after venlafaxine dose increase; sooner for worsening symptoms or concerns. Will communicate after consulting regarding migraine injection protocol at ER. Total time spent: 19 minutes (Tracked by Docker) [id number] Not available 07/04/2025 11:56:04 Plan of Treatment Reminders Order Date Submit Date Provider Last Modified By Organization Details Last Modified Time Details Appointments [facility] Patient 20.EST 2024 10:20A M Melissa Macias Not available Not available Not available Pulm Function Methacho line.PRO 2024 02:15P M [facility] Not available Not available Not available New Patient Visit 10.NEW 2024 01:30P M Dr. Shital Mendes Not available Not available Not available [facility] Patient 15.EST 2024 02:20P M Dr. Carrol Villagomez Not available Not available Not available [facility] Patient 15.EST 2024 01:45P M Tiffanie Painting Not available Not available Not available [facility] Patient 15.EST 2025 02:30P M Delia Hall Not available Not available Not available [facility] Patient 15.EST 2025 03:00P M Vinicius Pritchard Not available Not available Not available Lab None recorded . Referral None recorded . Procedures None recorded . Surgeries None recorded . Imaging None recorded . Medication Orders [employer] Autoin[employer] ctor 140 mg/mL subcutan eous auto-inj leticia 2024 025 [employer], [address] [place], [address], 07/04/2025 11:58:12 quetiapi ne 25 mg tablet 2024 025 [employer], [address] [place] [address], [id number], 07/04/2025 12:06:53 venlafax ine ER 150 mg capsule, extended release 24 hr 2024 025 [employer], [address] [place] [address], [id number], 07/04/2025 18:03:39 venlafax ine ER 75 mg capsule, extended release 24 hr 2024 025 [employer], [address] [place] [address], [id number], 07/04/2025 18:03:39 Patient TargetsNo targets recorded. Patient InstructionsNo instructions recorded. Reason for Referral None Reported. Results Created Date Observation Date Name Description Value Unit Range Abnormal Flag Note LastModifiedBy Organization Detail LastModifiedTime 06/07/2006/07/2025 CBC CBC Not Available [facility] [address] [place] [address], [id number], 06/07/2025 19:14:12 06/07/20 25 06/07/2025 CBC WBC 5.9 K/uL 3.8-11 .2 Not Available [facility] [address] [place] [address], 50556, 06/07/2025 19:14:12 06/07/2006/07/2025 CBC RBC 4.18 M/uL 3.92-5 .10 Not Available [facility] [address] [place] [address], [id number], 06/07/2025 19:14:12 06/07/20 25 06/07/2025 CBC HGB 11.5 g/dL 11.8-1 5.3 low Not Available [facility] [address] [place] [address], 49008, 06/07/2025 19:14:12 06/07/2006/07/2025 CBC HCT 35.2 % 36.5-4 4.8 low Not Available [facility] - [facility] [address] [place] [address], [id number], 06/07/2025 19:14:12 06/07/2006/07/2025 CBC MCV 84.2 fL 80.0-9 9.0 Not Available [facility] [address] [place] [address], [id number], 06/07/2025 19:14:12 06/07/2006/07/2025 CBC MCH 27.5 pg 25.5-3 3.6 Not Available [facility] [address] [place] [address], [id number], 06/07/2025 19:14:12 06/07/2006/07/2025 CBC MCHC 32.7 g/dL 32.0-3 6.0 Not Available [facility] [address] [place] [address], 97044, 06/07/2025 19:14:12 06/07/2006/07/2025 CBC RDW-SD 39.6 fL 35.1 - 46.3 Not Available [facility] [address] [place] [address], 17534, 06/07/2025 19:14:12 06/07/2006/07/2025 CBC plt 272 K/uL 130-40 0 Not Available [facility] [address] [place] [address], [id number], 06/07/2025 19:14:12 06/07/2006/07/2025 CBC MPV 9.9 fL 9.3-12 .8 Not Available [facility] [address] [place] [address], [id number], 06/07/2025 19:14:12 06/07/2006/07/2025 urina lysis , compl ete urinalysis, complete LOW LEVEL S OF HEMOG LOBIN IN ABSEN CE OF HEMAT URIA MAY NOT BE CLINI MARCOS SIGNI PAOLA T. Not Available [facility] - [facility] [address] [place] [address], 77730, 06/07/2025 19:21:12 06/07/2006/07/2025 urina lysis , compl ete color DARK YELLOW Dipst ick may be inacc urate due to the color of the urine Not Available [facility] [address] [place] [address], [id number], 06/07/2025 19:21:12 06/07/2006/07/2025 urina lysis , compl ete clarity CLEAR Not Available [facility] [address] [place] [address], 84033, 06/07/2025 19:21:12 06/07/2006/07/2025 urina lysis , compl ete pH 7.0 5.0-7. 5 Not Available [facility] [address] [place] [address], 17053, 06/07/2025 19:21:12 06/07/2006/07/2025 urina lysis , compl ete specific gravity 1.010 1.000- 1.030 Not Available [facility] - [facility] [address] [place] [address], 47703, 06/07/2025 19:21:12 06/07/2006/07/2025 urina lysis , compl ete blood NEGATI VE negati ve Not Available [facility] - [facility] [address] [place] [address], 81331, 06/07/2025 19:21:12 06/07/2006/07/2025 urina lysis , compl ete bilirubin NEGATI VE negati ve Not Available [facility] [address] [place] [address], 07138, 06/07/2025 19:21:12 06/07/20 25 06/07/2025 urina lysis , compl ete urobilinogen 1.0 0.2-1. 0 Not Available [facility] [address] [place] [address], [id number], 06/07/2025 19:21:12 06/07/20 25 06/07/2025 urina lysis , compl ete ketone NEGATI VE negati ve Not Available [facility] [address] [place] [address], 81159, 06/07/2025 19:21:12 06/07/2006/07/2025 urina lysis , compl ete glucose NEGATI VE negati ve Not Available [facility] [address] [place] [address], 75913, 06/07/2025 19:21:12 06/07/2006/07/2025 urina lysis , compl ete protein NEGATI VE negati ve Not Available [facility] [address] [place] [address], 38877, 06/07/2025 19:21:12 06/07/2006/07/2025 urina lysis , compl ete nitrite POSITI VE negati ve abnormal Not Available [facility] - [facility] [address] [place] [address], 54351, 06/07/2025 19:21:12 06/07/2006/07/2025 urina lysis , compl ete leukocytes 1+ negati ve abnormal Not Available [facility] - [facility] [address] [place] [address], 89435, 06/07/2025 19:21:12 06/07/2006/07/2025 urina lysis , compl ete review * Micro scopi c resul ts revie wed by Techn [facility] st. Not Available [facility] - [facility] [address] [place] [address], 78505, 06/07/2025 19:21:12 06/07/20 25 06/07/2025 urina lysis , compl ete RBC 0-2 0-2/hp f Not Available [facility] - [facility] [address] [place] [address], [id number], 06/07/2025 19:21:12 06/07/20 25 06/07/2025 urina lysis , compl ete WBC 0-5 0-5/hp f Not Available [facility] [address] [place] [address], [id number], 06/07/2025 19:21:12 06/07/20 25 06/07/2025 urina lysis , compl ete WBC. CONFI Cell count s confi rmed by Techn ologi st. Not Available [facility] - [facility] [address] [place] [address], 84030, 06/07/2025 19:21:12 06/07/20 25 06/07/2025 urina lysis , compl ete squamous epithelial 3-5 0-10/h pf Not Available [facility] - [facility] [address] [place] [address], 34353, 06/07/2025 19:21:12 06/07/2006/07/2025 urina lysis , compl ete bacteria NONE SEEN none Not Available Md Only - [facility] [address] [place] [address], [id number], 06/07/2025 19:21:12 06/07/2006/07/2025 urina lysis , compl ete hyaline cast 0-2 0-2/lp f Not Available [facility] - [facility] [address] [place] [address], [id number], 06/07/2025 19:21:12 06/07/20 25 06/07/2025 renal funct ion panel , serum renal function panel Not Available [facility]l [facility] - [facility] [address] [place] [address], [id number], 06/07/2025 19:42:24 06/07/20 25 06/07/2025 renal funct ion panel , serum sodium 140 mmol/ L 136-14 6 Not Available [facility] - [facility] [address] [place] [address], 96304, 06/07/2025 19:42:24 06/07/20 25 06/07/2025 renal funct ion panel , serum potassium 4.0 mmol/ L 3.5-5. 1 Not Available [facility] [address] [place] [address], 72778, 06/07/2025 19:42:24 06/07/20 25 06/07/2025 renal funct ion panel , serum chloride 106 mmol/ L 98-110 Not Available [facility] - [facility] [address] [place] [address], 60668, 06/07/2025 19:42:24 06/07/20 25 06/07/2025 renal funct ion panel , serum CO2 25 mEq/L 20-32 Not Available [facility] [address] [place] [address], 97053, 06/07/2025 19:42:24 06/07/20 25 06/07/2025 renal funct ion panel , serum anion gap 13 mmol/ L 10-22 Not Available [facility] [address] [place] [address], 85220, 06/07/2025 19:42:24 06/07/20 25 06/07/2025 renal funct ion panel , serum glucose 188 mg/dL 70-100 high Not Available [facility] - [facility] [address] [place] [address], 58590, 06/07/2025 19:42:24 06/07/20 25 06/07/2025 renal funct ion panel , serum calcium 9.5 mg/dL 8.4-10 .4 Not Available [facility] - [facility] [address] [place] [address], 49617, 06/07/2025 19:42:24 06/07/2006/07/2025 renal funct ion panel , serum albumin 4.1 g/dL 3.5-5. 3 Not Available [facility] - [facility] [address] [place] [address], 70133, 06/07/2025 19:42:24 06/07/2006/07/2025 renal funct ion panel , serum phosphorus 3.1 mg/dL 2.7-4. 5 Not Available [facility] - [facility] [address] [place] [address], 16882, 06/07/2025 19:42:24 06/07/2006/07/2025 renal funct ion panel , serum BUN 15 mg/dL 7-21 Not Available [facility] - [facility] [address] [place] [address], 61829, 06/07/2025 19:42:24 06/07/2006/07/2025 renal funct ion panel , serum creatinine 0.9 mg/dL 0.7-1. 3 Not Available [facility] - [facility] [address] [place] [address], 84705, 06/07/2025 19:42:24 06/07/2006/07/2025 renal funct ion panel , serum CKD-epi GFR 76 eGFR was calcu lated using the 2020 CKD-E PI equat ion. (Mushroom Laborer andree Kidne y Disea se has an eGFR less than 60 mL/mi n/1.7 3mm for a perio d of three month s or more. ) This calcu latio n has not been valid ated for patie nt ages <18 or >90 years old. Not Available [facility] - [facility] [address] [place] [address], 27582, 06/07/2025 19:42:24 06/07/2006/08/2025 micro album in, urine microalbumin ,random panel Not Available [facility] - [facility] [address] [place] [address], 40904, 06/08/2025 10:13:00 06/07/20 25 06/08/2025 micro album in, urine microalbumin random 0.5 mg/dL Not Available Md On [facility] - [facility] [address] [place] [address], [id number], 06/08/2025 10:13:00 06/07/20 25 06/08/2025 micro album in, urine creatinine, urine random 37 mg/dL Refer ence range not estab lishe d for other than 24 hour colle ction . Not Available [facility] - [facility] [address] [place] [address], 08731, 06/08/2025 10:13:00 06/07/20 25 06/08/2025 micro album [...] in or Creat inine .) Not Available [facility] - [facility] [address] [place] [address], 28039, 06/08/2025 10:13:00 06/07/20 25 06/08/2025 C4 (comp lemen t), serum or plasm a complement C4 44 mg/dL 12-38 high Not Available [facility] [address] [place] [address], 17426, 06/08/2025 14:11:19 06/07/20 25 06/08/2025 C3 (comp lemen t), serum or plasm a complement C3 201 mg/dL 82-167 high Not Available [facility] - [facility] [address] [place] [address], 70103, 06/08/2025 14:11:20 06/07/2006/08/2025 ADALBERTO (anti nucle ar antib odies ) scree n, serum ADALBERTO screen NEGATI VE negati ve Perfo rmed by Bio-R ad enzym e immun oassa y Not Available Md Only - [facility] [address] [place] [address], 65245, 06/08/2025 15:48:52 06/07/20 25 06/09/2025 cultu re + sensi tivit y, urine urine culture and sens. JENNIFER L URINE ESCHE EVRONIKA A COLI DATE/ TIME: 06/09 08:45 >100, [...] resis tant inter preta tion Not Available [facility] - [facility] [address] [place] [address], 26736, 06/09/2025 09:46:55 06/07/2006/09/2025 immun ofixa tion, serum immunofixati on, serum No monoc lonal ity detec michelle. Not Available [facility] - [facility] [address] [place] [address], 47620, 06/09/2025 15:12:43 06/07/20 25 06/09/2025 immun ofixa tion, serum IgG quantitative 1147 mg/dL 586-16 02 Not Available [facility] - [facility] [address] [place] [address], 79435, 06/09/2025 15:12:43 06/07/20 25 06/09/2025 immun ofixa tion, serum IgA quantitative 393 mg/dL 87-352 high Not Available [facility] - [facility] [address] [place] [address], 86073, 06/09/2025 15:12:43 06/07/20 25 06/09/2025 immun ofixa tion, serum IgM quantitative 80 mg/dL -217 Not Available [facility] - [facility] [address] [place] [address], 94346, 06/09/2025 15:12:43 06/07/2006/12/2025 anca panel , serum anca, complete Not Available [facility] - [facility] [address] [place] [address], [id number], 06/12/2025 20:10:54 06/07/2006/12/2025 anca panel , serum myeloperoxid ase Ab <0.2 units 0.0-0. 9 Not Available [facility] - [facility] [address] [place] [address], 68465, 06/12/2025 20:10:54 06/07/2006/12/2025 anca panel , serum proteinase-3 Ab, anca <0.2 units 0.0-0. 9 Not Available [facility] - [facility] [address] [place] [address], 20058, 06/12/2025 20:10:54 06/07/2006/12/2025 anca panel , serum C-anca titer <1:20 titer neg:<1 :20 Not Available [facility] Only - [facility] [address] [place] [address], 72994, 06/12/2025 20:10:54 06/07/20 25 06/12/2025 anca panel , serum P-anca titer <1:20 [...] ng of posit marquis sera with both PA-3 and MPO-A NCA enzym e immun oassa ys. As many as 5% serum sampl es are posit marquis only by EIA. Ref. AM J Clin Patho l 1999; 111:5 07-51 3. Not Available Md Only - [facility] [address] [place] [address], 41624, 06/12/2025 20:10:54 06/07/20 25 06/12/2025 anca panel , serum atypical P anca titer <1:20 titer neg:<1 :20 The atypi radha pANCA patte rn has been obser elva in a signi fican t perce ntage of patie nts with ulcer ative colit is, prima ry scler osing chola ngiti s and autoi mmune hepat itis. Not Available Md Only - [facility] [address], [address], 06/12/2025 20:10:54 06/07/20 25 06/07/2025 UE urine eosinophils NEGATI VE Not Available Md Only - [facility] [address] [place] [address], [id number], 06/07/2025 23:40:52 06/07/20 25 06/08/2025 cultu re + sensi tivit y, urine urine culture and sens. PREL IM URINE GRAM NEGAT MARQUIS RODS DATE/ TIME: 06/08 10:17 >100, 000 CFU/m L Not Available [facility] Only - [facility] [address], [address], 06/08/2025 11:18:58 06/18/20 25 06/20/2025 C URINE urine culture (new) abnormal Print Date/ Time: 2024 10:46 CDT Patie nt: JANINA WHITE P Micro biolo gy - Uroge nital Legen d: c=Cor recte d, F=Res ult Comme nt, S=Idalia cepti ble, I=Int ermed iate, R=Res istan t, N/A=N ot Appli cable PROCE DURE: Urine Cultu re [] ACCES LIA: [id number] SOURC E: Urine BODY SITE: [...] consu lt a Micro biolo gist if fur er work- up is neede d. PA ELIMI NARY REPOR TS Preli minar y Repor t [] Verif ied Date/ Time: 2024 14:19 CDT Moder ate proba ble conta minan ts inclu din,00 0 cfu/m l Gram Negat marquis Rods Cultu re reinc ubate d Not Available Md Only - [facility] [address], [address]89, 06/20/2025 11:46:50 06/18/2006/18/2025 UACS color Pauline Not Available [address], [address]60, 06/18/2025 17:21:53 06/18/2006/18/2025 UACS appearance Clear Not Avail able [address], 06139, 06/18/2025 17:21:53 06/18/2006/18/2025 UACS specific gravity 1.012 1.003- 1.030 Not Available [address], 70745, 06/18/2025 17:21:53 06/18/2006/18/2025 UACS pH urine 6.0 4.5-7. 5 Not Available [address], 39413, 06/18/2025 17:21:53 06/18/2006/18/2025 UACS protein 30 abnormal Not Availa ble [address], 86415, 06/18/2025 17:21:53 06/18/2006/18/2025 UACS urine glucose Negati ve Not Available [address], 59261, 06/18/2025 17:21:53 06/18/2006/18/2025 UACS ketones Negati ve Not Available [address], 54371, 06/18/2025 17:21:53 06/18/2006/18/2025 UACS urine bilirubin Negati ve Not Available [address], 04480, 06/18/2025 17:21:53 06/18/20 25 06/18/2025 UACS urine HGB Small abnormal Not Avai lable [address], 81013, 06/18/2025 17:21:53 06/18/20 25 06/18/2025 UACS nitrite Positi ve abnormal Not Available Md Only [facility] [address] [place] [address], 91113, 06/18/2025 17:21:53 06/18/20 25 06/18/2025 UACS leukocyte esterase Negati ve Not Available Md Only [address], 08551, 06/18/2025 17:21:53 06/18/20 25 06/18/2025 UACS urobilinogen >=4.0 abnormal Not A vailable [address], 58048, 06/18/2025 17:21:53 06/18/20 25 06/18/2025 UACS urine WBCs 2 /hpf 0-4 Not Avail able [address], 61225, 06/18/2025 17:21:53 06/18/20 25 06/18/2025 UACS urine RBCs 0 /hpf 0-2 Not Avail able [address], 34349, 06/18/2025 17:21:53 06/18/20 25 06/18/2025 UACS squamous epithelial cells 6 /hpf 0-5 high Not Available Md Onl y - [facility] [address] [place] [address], 68607, 06/18/2025 17:21:53 06/18/20 25 06/18/2025 UACS bacteria Few abnormal Not Avail able Md Only - [address], 88102, 06/18/2025 17:21:53 06/18/20 25 06/18/2025 UACS color Pauline Not Available Md Only - [address], 34019, 06/18/2025 17:21:52 06/18/2006/18/2025 UACS appearance Clear Not Avail able [address], 87317, 06/18/2025 17:21:52 06/18/20 25 06/18/2025 UACS specific gravity 1.012 1.003- 1.030 Not Available [address], 46649, 06/18/2025 17:21:52 06/18/2006/18/2025 UACS pH urine 6.0 4.5-7. 5 Not Available [address], 87639, 06/18/2025 17:21:52 06/18/2006/18/2025 UACS protein 30 abnormal Not Availa ble [address], 16146, 06/18/2025 17:21:52 06/18/2006/18/2025 UACS urine glucose Negati ve Not Available [address], 23546, 06/18/2025 17:21:52 06/18/2006/18/2025 UACS ketones Negati ve Not Available [address], 30341, 06/18/2025 17:21:52 06/18/2006/18/2025 UACS urine bilirubin Negati ve Not Available [address], 14556, 06/18/2025 17:21:52 06/18/20 25 06/18/2025 UACS urine HGB Small abnormal Not Avai lable [address], 21004, 06/18/2025 17:21:52 06/18/20 25 06/18/2025 UACS nitrite Positi ve abnormal Not Available Md Only - [facility] [address] [place] [address], 48691, 06/18/2025 17:21:52 06/18/20 25 06/18/2025 UACS leukocyte esterase Negati ve Not Available Md Only - [facility] [address] [place] [address], 83819, 06/18/2025 17:21:52 06/18/20 25 06/18/2025 UACS urobilinogen >=4.0 abnormal Not A vailable Md Only - [facility] [address] [place] [address], 91911, 06/18/2025 17:21:52 06/18/20 25 06/18/2025 UACS urine WBCs 2 /hpf 0-4 Not Avail able Md Only - [facility] [address] [place] [address], 01317, 06/18/2025 17:21:52 06/18/20 25 06/18/2025 UACS squamous epithelial cells 6 /hpf 0-5 high Not Available Md Onl y - [facility] [address] [place] [address], 85504, 06/18/2025 17:21:52 06/18/20 25 06/18/2025 UACS bacteria Few abnormal Not Avail able Md Only - [facility] [address] [place] [address], 95014, 06/18/2025 17:21:52 06/18/20 25 06/18/2025 EGFR eGFR 88 mL/mi n/1.7 3m? This [...] [facility] Only - [facility] [address] [place] [address], 56274, 06/18/2025 17:15:19 06/18/2006/18/2025 LPSE lipase,serum 18 u/L 11-82 Not Dalila ilable Sc Only - [facility] [address] [place] [address], 09227, 06/18/2025 17:15:18 06/18/20 25 06/18/2025 CMP sodium 139 mmol/ L 136-14 5 Not Available Sc Only - [facility] [address] [place] [address], 54157, 06/18/2025 17:15:16 06/18/20 25 06/18/2025 CMP potassium 4.1 mmol/ L 3.5-5. 1 Not Available Sc Only - [facility] [address] [place] [address], 16532, 06/18/2025 17:15:16 06/18/20 25 06/18/2025 CMP chloride 106 mmol/ L 98-107 Not Available Sc Only - [facility] [address] [place] [address], 41109, 06/18/2025 17:15:16 06/18/20 25 06/18/2025 CMP CO2 24 mmol/ L 21-31 Not Available Sc Only - [facility] [address] [place] [address], 97834, 06/18/2025 17:15:16 06/18/20 25 06/18/2025 CMP BUN 9 mg/dL 7-25 Not Available Md Only - [facility] [address] [place] [address], 93851, 06/18/2025 17:15:16 06/18/2006/18/2025 CMP creatinine 0.8 mg/dL 0.6-1. 3 Not Available Md Only - [facility] [address] [place] [address], 48196, 06/18/2025 17:15:16 06/18/2006/18/2025 CMP glucose 210 mg/dL 70-105 high Not Availabl e Md Only - [facility] [address], 85114, 06/18/2025 17:15:16 06/18/2006/18/2025 CMP calcium 9.3 mg/dL 8.6-10 .3 Not Available Md Only - [facility] [address] [place] [address], 74310, 06/18/2025 17:15:16 06/18/2006/18/2025 CMP total protein 7.2 gm/dL 6.0-8. 3 Not Available Md Only - [facility] [address] [place] [address], 50075, 06/18/2025 17:15:16 06/18/2006/18/2025 CMP albumin 4.0 gm/dL 3.5-5. 7 Not Available Md Only - [facility] [address] [place] [address], 49674, 06/18/2025 17:15:16 06/18/2006/18/2025 CMP bilirubin (total) 0.8 mg/dL 0.3-1. 0 Not Available Md Only - [facility] [address] [place] [address], 51491, 06/18/2025 17:15:16 06/18/20 25 06/18/2025 CMP AST 24 IU/L 13-39 Not Available Md Only - [facility] [address] [place] [address], 21087, 06/18/2025 17:15:16 06/18/20 25 06/18/2025 CMP alk phos 134 IU/L 34-104 high Not Availab le Md Only - [facility] [address], 75152, 06/18/2025 17:15:16 06/18/20 25 06/18/2025 CMP ALT 15 IU/L 7-52 Not Available Md Only - [facility] [address] [place] [address], 69471, 06/18/2025 17:15:16 06/18/2006/18/2025 CMP anion gap 9 8-16 Anion gap calcu lated using formu la: Na - (Cl + CO2) Measu red total CO2 is used in place of HCO3 Not Available Md Only - [address], [address]29[address], 06/18/2025 17:15:16 06/18/20 25 06/18/2025 DBIL bilirubin (direct) 0.1 mg/dL 0.0-0. 2 Not Available Md Only - [address], 39376, 06/18/2025 17:15:14 06/18/2006/18/2025 DIFF neutrophils 64 % 47-67 Not Avai lable Md Only - [facility] [address] [place] [address], [address], 06/18/2025 16:50:30 06/18/2006/18/2025 DIFF lymphocytes 23 % 25-45 low Not Avai lable Md Only - [facility] [address] [place] [address], [address], 06/18/2025 16:50:30 06/18/20 25 06/18/2025 DIFF monocytes 8 % 1-9 Not Availa ble Md Only - [facility] [address] [place] [address], [address], 06/18/2025 16:50:30 06/18/20 25 06/18/2025 DIFF eosinophils 3 % 0-6 Not Avai lable Md Only - [address], [address], 06/18/2025 16:50:30 06/18/20 25 06/18/2025 DIFF basophils 1 % 0-2 Not Availa ble Md Only - [address], [address], 06/18/2025 16:50:30 06/18/20 25 06/18/2025 DIFF absolute neutrophils 5.0 K/cum m 1.8-6. 5 Not Available [facility] - [address], [address], 06/18/2025 16:50:30 06/18/20 25 06/18/2025 DIFF absolute lymphocytes 1.8 K/cum m 0.9-3. 0 Not Available Md Only - [address], [address], 06/18/2025 16:50:30 06/18/20 25 06/18/2025 DIFF absolute monocytes 0.6 K/cum m 0.2-0. 8 Not Available Md Only - [address], [address], 06/18/2025 16:50:30 06/18/20 25 06/18/2025 DIFF absolute eosinophils 0.3 K/cum m 0.0-0. 4 Not Available Md Only - [address], [address], 06/18/2025 16:50:30 06/18/20 25 06/18/2025 DIFF absolute basophils 0.1 K/cum m 0.0-0. 2 Not Available Md Only - [address], [address], 06/18/2025 16:50:30 06/18/20 25 06/18/2025 CBC W/ AUTO DIFF WBC 7.8 K/cum m 3.4-9. 4 Not Available Md Only - [facility] [address] [place] [address], [address], 06/18/2025 16:50:28 06/18/20 25 06/18/2025 CBC W/ AUTO DIFF RBC 4.23 M/cum m 4.20-5 .40 Not Available Md Only - [address], [address], 06/18/2025 16:50:28 06/18/20 25 06/18/2025 CBC W/ AUTO DIFF hemoglobin 11.5 gm/dL 12.0-1 6.0 low Not Available Md Only - [address], [address], 06/18/2025 16:50:28 06/18/20 25 06/18/2025 CBC W/ AUTO DIFF hematocrit 35 % 37-47 low Not Available Md Only - [address], [address], 06/18/2025 16:50:28 06/18/20 25 06/18/2025 CBC W/ AUTO DIFF MCV 83 81-94 Not Available Md Only - [address], [address], 06/18/2025 16:50:28 06/18/20 25 06/18/2025 CBC W/ AUTO DIFF MCH 27.1 pg 27.5-3 3.2 low Not Available Md Only - [address], [address], 06/18/2025 16:50:28 06/18/20 25 06/18/2025 CBC W/ AUTO DIFF MCHC 32.6 g/dL 31.0-3 6.0 Not Available Md Only - [address], [address], 06/18/2025 16:50:28 06/18/20 25 06/18/2025 CBC W/ AUTO DIFF RDW 14.1 % 11.7-1 5.5 Not Available Md Only - [facility] [address] [place] [address], [address], 06/18/2025 16:50:28 06/18/20 25 06/18/2025 CBC W/ AUTO DIFF platelets 278 K/cum m 140-41 0 Not Available [facility] [address] [place] [address], [address], 06/18/2025 16:50:28 06/18/20 25 06/18/2025 CBC W/ AUTO DIFF MPV 7.9 mL Not Available [facility] [address] [place] [address], [address], 06/18/2025 16:50:28 06/18/20 25 06/19/2025 C URINE urine culture (new) abnormal Print Date/ Time: 2024 14:19 CDT Patie nt: JANINA WHITE P Micro biolo gy - Uroge nital Legen d: c=Cor recte d, F=Res ult Comme nt, S=Idalia cepti ble, I=Int ermed iate, R=Res istan t, N/A=N ot Appli cable PROCE DURE: Urine Cultu re [] ACCES LIA: [id number] SOURC E: Urine BODY SITE: COLLE CTED DATE/ TIME: 2024 15:21 CDT RECEI ELVA DATE/ TIME: 2024 19:13 CDT START DATE/ TIME: 2024 19:13 CDT FREE TEXT SOURC E: PA ELIMI NARY REPOR TS Preli minar y Repor t [] Verif ied Date/ Time: 2024 14:19 CDT Moder ate proba ble conta minan ts inclu din,00 0 cfu/m l Gram Negat marquis Rods Cultu re reinc ubate d Not Available [facility] [address] [place] [address], [address], 06/19/2025 15:19:31 06/28/20 25 06/30/2025 alpha -1-an titry psin (aat) , QN, serum A-1 antitrypsin phenotype Not Available Md Onl [facility] [address] [place] [address], [address], 06/30/2025 17:12:05 06/28/2006/30/2025 alpha -1-an titry psin (aat) , QN, serum yeyyf-8-gkyl trypsin 140 mg/dL 101-18 7 Not Available Md Only - [facility] [address], [address], 06/30/2025 17:12:05 06/28/2006/30/2025 alpha -1-an titry psin [...] to confi rm pheno type. Not Available Md Only - [facility] [address] [place] [address], [address], 06/30/2025 17:12:05 06/05/20 25 06/03/2024 CT, angio gram, chest , w/ contr ast No observ ation record ed. [email or web address] Not Available 2024 16:05:59 06/07/20 25 06/07/2025 XR, chest , [address] [address] Teleph one Name: TL WHITE [id number] am Date: 2024 Age: 54Phys ician: MD MIKEY, [facility] A : 1970Ex aminat ion: XR CHEST 2 VIEWS EXAMIN ATION: Chest, 2 view INDICA TION: Dyspne a and cough for two months . TECHNI QUE: Fronta l and latera l views of the chest obtain ed. COMPAR MANPREET: None FINDIN GS: No infilt rate, pleura l effusi on, or pneumo thorax . Normal cardio medias tinal silhou ette. No acute osseou s findin g. IMPRES LIA: No acute findin g. Electr onical ly signed in Reynolds cribe by: Vickey ryan MD on:05/16 3:01 PM cc: Page PAGE 1 of [facility] ES 1 MIKE Sc Only - [facility] [address] [place] [address], [address], 06/08/2025 14:33:15 Result Notes None recorded. Problems Name Problem SNOMED Code Status Onset Date Resolution Date Notes Provider Name and Address Organization Details Recorded Time Migraine 14447765 Active 2020 Yolandeher Riley [facility] 4 17:00:48 Hypertens marquis disorder 27537240 Active 2020 Yolandeher Rliey [facility] 4 17:00:48 Atypical squamous cells of undetermi tiffanie significa nce on cervical Papanicol aou smear 384699830 Active 2020 Yolande Riley [facility] 4 17:00:48 Second degree uterine prolapse 3744088 Active 2022 Yolande Riley null, [facility] 4 17:00:48 Chest pain 82688492 Active 2022 VINICIUS PRITCHARD NP [address] [facility], [place], [address] , [facility] 5 16:44:36 Preinfarc tion syndrome 5616429 Active 2022 Yolande Riley null, [facility] 4 17:00:48 Coronary arteriosc lerosis 26401514 Active 2023 VINICIUS PRITCHARD NP [address] [place] [address] [place], [place], [address] , [facility] 5 17:10:30 Essential hypertens ion 09136374 Active 2023 VINICIUS PRITCHARD NP [address] [place] [address] [place], [place], [address] , [facility] 5 16:44:21 Hyperchol esterolem ia 21932656 Active 2023 [facility] 4 16:47:54 Abdominal pain 61908294 Active 2023 Eren Oswald PA-C [address] [facility], [place], [address] , [facility] 4 13:05:40 Thoracic radiculop athy 80265103 Active 2023 Kimi Mathis APRN, [employer] [address] [facility] [place], [address] , [facility] 4 14:46:37 Cervical radiculop athy 12922338 Active 2023 Kimi Mathis APRN, [employer] [address] [facility] [place], [address] , [facility] 4 14:46:47 Lumbar spondylos is 680411700 Active 2023 Pauly Vizcaino MD [address] [facility], [place], [address] , [facility] 5 14:49:06 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 78875539728 9106 Active 2023 following with endocrino logy Pauly Vizcaino MD [address] [place] [address], [address] , [facility] 5 14:52:00 Spinal arachnoid cyst 296788958 Active 2023 Pauly Vizcaino MD [address] [place] [address], [address] , [facility] 5 14:51:11 Morbid obesity 873964465 Active 2024 Pauly Vizcaino MD [address] [place] [address], [address] , [facility] 5 14:50:22 Gastropar esis syndrome 662952882 Active 2024 Pauly Vizcaino MD [address] [place] [address], [address] , [facility] 5 14:53:47 Gastroeso phageal reflux disease 973457493 Active 2024 Pauly Vizcaino MD [address] [place] [address], [address] , [facility] 5 14:53:56 Dyspnea 576443364 Active 2024 Valeria Baugh APRN, [employer] [address] [place] [address], [address] , [facility] 5 12:14:35 Pain of left shoulder region Active 2024 Pauly Vizcaino MD [address] [place] [address], [address] , [facility] 5 15:11:16 Bilateral cramp of muscle of lower limbs 51769784416 826658 Active 2024 Pauly Vizcaino MD [address] [facility] [place], [address] , [facility] 5 15:12:21 Fibromyal chuck 043375831 Active 2024 Pauly Vizcaino MD [address] [facility] [place], [address] , [facility] 5 15:19:57 Recurrent major depressio n in remission 42786559 Active 2024 Pauly Vizcaino MD [address] [facility] [place], [address] , [facility] 5 15:24:34 Primary insomnia 6142144 Active 2024 Pauly Vizcaino MD [address] [facility] [place], [address] , [facility] 5 15:25:40 Swelling of lower limb 058449181 Active 2024 Pauly Vizcaino MD [address] [facility], [facility] [place], [address] , [facility] 5 16:16:03 Palpitati ons 59863179 Active 2024 [facility] 5 16:53:19 Dyspnea on exertion 09109835 Active 2024 VINICIUS PRITCHARD NP [address] [place] [address] [place], [place], [address] , [facility] 5 17:10:27 Hyperlipi demia 30133306 Active 2024 VINICIUS PRITCHARD NP [address] [place] [address] [place], [place], [address] , [facility] 5 16:44:26 Edema of lower extremity 524272366 Active 2024 VINICIUS PRITCHARD NP [address] [place] [address] [place], [address] , [facility] 5 17:34:12 Persisten t depressiv e disorder 7850285547 Active 2024 Melissa Macias PA-C [address] [place] [address], [address] , [facility] 5 11:28:54 Restless legs syndrome 53404090 Active 2024 Melissa Macias PA-C [address] [place] [address], [address] , [facility] 5 11:29:39 Atypical chest pain 662180053 Active 2024 Melissa Macias PA-C [address] [place] [address], [address] , [facility] 5 12:45:48 Anemia 604403220 Active 2024 Valeria Baugh APRN, [employer] [address] [place] [address], [address] , [facility] 5 12:10:45 Acute kidney injury 31446057 Active 2024 Valeria Baugh APRN, [employer] [address] [place] [address], [address] , [facility] 5 12:13:44 Mycosis 0126546 Active 2024 Valeria Baugh APRN, [employer] [address] [place] [address], [address] , [facility] 5 16:49:11 Obstructi ve sleep apnea syndrome 32890940 Active 2024 Sindhu Pizarro [facility] 5 16:01:58 Acute urinary tract infection 553707221 Active 2024 Lawrence Grigsby [facility] 5 15:43:42 Alpha-1-a ntitrypsi n deficienc y 77426290 Active 2024 Sindhu Pizarro [facility] 5 16:23:34 Supravent ricular tachycard ia 2890203 Active 2024 VINICIUS PRITCHARD NP [address] [place] [address], [address] , [facility] 5 16:44:22 Notes:Some problems listed i n Documents: #[id number], #[id number], #[id number] could not be added to this patient's chart. Please review these documents and add these problems to the patient's chart manually as needed. Problem Notes None recorded. Procedures Surgical History Date Name Laterality Status Provider Name and Address Organization Details Recorded Time 04/14/20 Date of Last Mammogram completed Not Available [...] Name and Address Organization Details Recorded Time 3359240 fentanyl medicatio n headache Not available Not available 10/14/20232012 4337 RxNorm React ion: Heada syeda; Nause a; Vomit ing; Comme nt: React ion Date: 23 Aug 2013 Annot ation s: JUVENCIO SIEGEL 10De2012 9:08P M Per pt repor t.; ; Brenda Natarajan [facility] 5 14:41:09 4668883 prochlorp erazine medicatio n anxiety Not available Not available 05/13/20242017 8704 RxNorm Yoli Sauceda [facility] 5 11:23:17 1648544 sumatript an medicatio n itching Not available Not available 05/13/20242017 39554 RxNorm Brenda Natarajan [facility] 5 14:41:28 1042475 metoclopr amide Not available other Not available Not available 05/13/20242022 6915 RxNorm [facility] 5 14:41:18 0868637 diphenhyd ramine hydrochlo ride medicatio n anxiety rash Not available Not available Not available 05/13/20242017 1362 RxNorm Yoli Sauceda [facility] 5 11:23:17 2398913 Duragesic medicatio n headache Not available Not available 06/22/20242012 59416 8 RxNorm React ion: Heada syeda; Nause a; Vomit ing; Comme nt: React ion Date: 23 Aug 2013 Annot ation s: JUVENCIO SIEGEL 2012 9:08P M Per pt repor t.; ; rBenda Natarajan [facility] 14:41:05 4880200 Compazine medicatio n other Not available Not available 11/02/2024 99649 6 RxNorm irrit abili ty Brenda Natarajan [facility] 5 14:41:50 8540853 Imdur medicatio n anxiety insomnia Not available Not available [facility] 05/30/2025 74277 2 RxNorm Melissa Macias PA-C [address] [place], [address] [place] [address] 5 10:19:27 210201 Biaxin medicatio n nausea Not available Not available 10/12/20232006 68971 9 RxNorm React ion: Nause a; Not Available [facility] 4 21:45:38 811365 sumatript an succinate medicatio n Not available Not available Not available 10/12/20232006 11946 RxNorm React ion: Short ness of breat h; Arrhy thmia ; Not Available [facility] 4 21:45:39 403342 ciproflox acin hydrochlo ride medicatio n Not available Not available Not available 10/12/20232006 00183 RxNorm React ion: Synco pe; Short ness of breat h; Brenda Natarajan [facility] 5 14:40:56 833968 Demerol medicatio n Not available Not available Not available 10/12/20232008 85820 1 RxNorm Comme nt: Annot ation s: GRUND Y, BRAND ON 2008 3:38P M NAUSE A; ; Brenda Natarajan [facility] 5 14:40:59 736959 morphine sulfate medicatio n Not available Not available Not available 10/12/20232008 45804 RxNorm Comme nt: Annot ation s: GRUND Y, BRAND ON 2008 3:39P M NAUSE A; ; Brenda Natarajan [facility] 5 14:41:15 203317 hydromorp basim hydrochlo ride medicatio n Not available Not available Not available 10/12/20232008 98001 7 RxNorm Comme nt: Annot ation s: GRUND Y, BRAND ON 2008 3:39P M NAUSE A; ; Brenda Natarajan [facility] 5 14:41:12 Medications Name Sig Start Date [...] Available Not Available Not Available Dexcom G7 Value Stream Leader USE PER MANUFACT URER DIRECTIO NS active [...] Updated DateTime 5 170.18 cm 42.6 kg/m2 456304. 12 g 77 /min 16 /min 96 % 96 % 128/64 mm[Hg] Yoli Sauceda [facility] 5 11:22:40 Social History Question Answer Notes LastModified [...] Do You Have A Medical Power Of Route Sales Person? Yes [email or web address] Information not available 06/13/2024 What Was The Date Of Your Most Recent Tobacco Screening? 07/04/2025 [email or web address] Information not available 07/04/2025 What Is Your Relationship Status? [email or web address] Information not available 06/13/2024 Has Tobacco Cessation Counseling Been Provided? Yes [email or web address] Information not available 03/28/2025 On What Date Was Tobacco Cessation Counseling Provided? 03/28/2025 [email or web address] Information not available 03/28/2025 Sex: Unknown Functional [...] available 2023 15:08:01 Medical History Condition Response Anxiety Disorder N Diabetes Y Bleeding Disorder N Attention-deficit Hyperactivity Disorder N High Blood Pressure Y Arthritis Y Hyperlipidemia Y Cancer Y Thyroid Problems N Stroke N Asthma Y Depression Y COPD N Seizures N Anemia Y Heart Disease Y Fibromyalgia Y Osteoporosis N [...] Time Influenza, recombinant, quadrivalent, PF 1 completed Brendaaraseli Natarajan [facility] 11/02/2024 14:40:15 Influenza, recombinant, quadrivalent, PF 0 completed Brendaaraseli Natarajan [facility] 11/02/2024 14:40:15 zoster recombinant 1 completed Brenda Natarajan [facility] 11/02/2024 14:40:15 zoster recombinant 1 completed Brendaaraseli Natarajan [facility] 11/02/2024 14:40:15 COVID-19, mRNA, LNP-S, PF, 100 mcg/0.5mL dose or 50 mcg/0.25mL dose 1 completed Brendaaraseli Natarajan [facility] 11/02/2024 14:40:15 COVID-19, mRNA, LNP-S, PF, 100 mcg/0.5mL dose or 50 mcg/0.25mL dose 1 completed Brendaaraseli Natarajan [facility] 11/02/2024 14:40:15 COVID-19, mRNA, LNP-S, PF, 100 mcg/0.5mL dose or 50 mcg/0.25mL dose 1 completed Brendaaraseli Natarajan [facility] 11/02/2024 14:40:15 pneumococcal polysaccharide PPV23 1 completed Brenda Natarajan [facility] 11/02/2024 14:40:15 influenza, unspecified formulation 4 completed Brenda Natarajan [facility] 11/02/2024 14:40:15 influenza, unspecified formulation 4 completed Brenda Natarajan [facility] 11/02/2024 14:40:15 influenza, unspecified formulation 3 completed Brenda Natarajan [facility] 11/02/2024 14:40:15 Tdap 7 completed Brenda Natarajan [facility] 11/02/2024 14:40:15 Influenza, split virus, trivalent, preservative 1 completed Brenda Natarajan [facility] 11/02/2024 14:40:15 Influenza, split virus, quadrivalent, PF 7 completed Brendaaraseli Natarajan [facility] 11/02/2024 14:40:15 Past Encounters Encounter ID Performer Location Encounter Start Date Encounter Closed Date Diagnosis/Indication Diagnosis SNOMED-CT Code Diagnosis ICD10 Code Diagnosis IMO Codes Diagnosis Note [id number] Carrol Villagomez MD [facility] 2[facility]m ([place]) [address] [place] [address] 06/05/2025 15:41:18 06/05/2025 16:01:50 Dyspnea 031735230 R06.02 R06.00 79167 [id number] Uncertain as to the etiology of her [...] results of the CT scan performed at [facility] this past spring. Addendum, CTA of the chest from 06/03/2024 at [facility] showed unremarkab le pulmonary findings. She has some scattered linear atelectasi s, no consolidat ion, nodule or fluid. No mediastina l or hilar adenopathy . There was significan t coronary artery disease noted on that study. Obstructiv e sleep apnea syndrome 50534134 G47.33 [id number] She has a longstandi ng history of sleep apnea diagnosed about 20 years ago [place] at an unknown institutio n. Is not on any treatment at this time. I do suspect she does have significan t sleep apnea that is contributi ng to her symptomato logy and we will get her worked up with a split-nigh t sleep study and trial PAP if positive. [id number] [address] [facility] ([place]) [address] [facility] [place] [address] 06/07/2025 14:55:39 06/07/2025 17:49:29 Acute kidney injury 55666086 N17.9 [id number] Melissa Macias PA-C [facility] ([place]) [address] [place] [address] 07/04/2025 11:15:12 07/04/2025 12:20:08 Primary insomnia 0482543 F51.01 Persistent depressive disorder 8671378055 F34.1 also anxiety and helps with hot flashes Migraine 10107339 G43.90 9 Recurrent major depression in remission 98547810 F33.40 3366591 Hypertensive disorder 38 435182 I10 Health Concerns Section Related Observation LastModified by Organization Detai ls LastModified Time None Recorded Concern Status LastModified by Organization Details LastModified Time None Recorded Payers Encounter Date Sequence Insurance Name Policy Number Policy Garcia Covered Member ID Garcia Member ID Guarantor Name 07/04/2025 2 [place] [employer] Leti White [id number] Leti White 07/04/2025 1 [facility] (MEDICARE REPLACEMENT/A DVANTAGE - PPO) [id number] Leti White [id number] Leti White Notes Date Note Type Note Provider Name and Address Organization Details Recorded Time 07/04/2025 text/html Patient here for follow up after starting [id number]- old female presents for follow-up on mood, sleep, [...] feeling well. Melissa Macias PA-C [address] [facility], [place], [address], [facility] 07/04/2025 12:17:39 OBGyn Episode No OBEpisode recorded.
--- OUTSIDE RECORDS SUMMARY | 2025-07-04 19:56 | XMS_ITS | Encounter Summary ---
Author Organization [facility] Address [address] [place] [address] Care Team Providers Care Spine Supervisor Name Role Phone Hero Bearden MD Unavailable Ce Villalobos MD Unavailable Brissa Tijerina MD Primary Care Provider + Reason for Visit * Reason Onset Date Comments Preprocedure Call 01/18/2025 Spoke with pat ient-she has an appointment on 01/[address] Christy office for H&P. Encounter Details Date Type Department Care Team (Late st Contact Info) Description 01/18/2025 Telephone [facility] Interventional Radiology [address] [place] [address] Kaylene Lundberg, RN Preprocedure Call [...] Recorded Patient Health Questionnaire-2 Score 0 10/31/2022 [facility] - Occupational Stress Questionnaire Answer [...] place to sleep or slept in a longterm (including now)? Yes 05/08/2023 Comments No Sex and Gender Information Value Date Recorded Sex Assigned at Female 09/30/2024 10:51 PM MIXING AND DISPENSING SUPERVISOR Legal Sex Female 7:02 PM CDT Gender [...] PM JACQUET Georgina Baez RN Active * [place] Suicide Severity Rating Scale (Screener/Recent Self-Report) Question [...] on filedocumented in this encounter Care Teams Spine Supervisor Relationship Specialty Start Date End Date Brissa Tijerina MD [address] [place] [address] PCP - General FAMILY PRACTICE 11/03/24 eHro Bearden MD Hvac Design Mechanical Engineer OBGYN 04/04/22 Ce Villalobos MD [address] [place] [address] Meriden Poem Writer CARDIOVASCULAR DISEASE 07/18/22 documented as of this encounter
--- OUTSIDE RECORDS SUMMARY | 2025-07-04 19:56 | XMS_ITS | Encounter Summary ---
Author Organization [facility] Address [address] [place] [address] Care Team Providers Care Dip Lube Operator Name Role Phone Hero Bearden MD Unavailable Adele Lagos MD Primary Care Provider [phone] Ce Villalobos MD Unavailable Brissa Tijerina MD Primary Care Provider + Encounter Details Date Type Department Care Team (Late st Contact Info) Description 04/23/2023 Hospital Follow-up Call [facility] Cardiovascular Care Unit [address] [place] [address] Kalyn New RN Social History [...] Recorded Patient Health Questionnaire-2 Score 0 10/31/2022 [facility] [place] of Occupat ional Health - Occupational Stress [...] place to sleep or slept in a halfway (including now)? Yes 04/18/2023 Comments No Sex and Gender Information Value Date Recorded Sex Assigned at Female 09/30/2024 10:51 PM LAB AID Legal Sex Female 7:02 PM CDT Gender [...] on filedocumented in this encounter Care Teams Dip Lube Operator Relationship Specialty Start Date End Date Adele Lagos MD [address] [place] [address] PCP - General INTERNAL MEDICINE 06/16/22 11/02/24 Brissa Tijerina MD [address] [place] [address] PCP - General FAMILY PRACTICE 11/03/24 Hero Bearden MD Laboratory Animal Facility Supervisor OBGYN 04/04/22 Ce Villalobos MD [address] [place] [address] Ute Cylinder Press Operator Apprentice CARDIOVASCULAR DISEASE 07/18/22 documented as of this encounter
--- OUTSIDE RECORDS SUMMARY | 2025-07-04 19:56 | XMS_ITS | Encounter Summary ---
Author Organization [facility] Address [address] [place] [address] Care Team Providers Care Landscape Architecture Teacher Name Role Phone Yaneth Lagos MD Primary Care Provider [phone] Yaneth Lagos MD Primary Care Provider [phone] Hero Bearden MD Unavailable Adele Lagos MD Primary Care Provider [phone] Ce Villalobos MD Unavailable Brissa Tijerina MD Primary Care Provider + Encounter Details Date Type Department Care Team (Late st Contact Info) Description 11/28/2017 Abstract [facility] CONVERSION [address] [place] [address] , Generic MD Racheal Social History Tobacco Use Types Packs/Day Years Used Date Smoking Tobacco: Never Assessed Comments Unknown Sex and Gender Information Value Date Recorded Sex Assigned at Female 09/30/2024 10:51 PM EXPL[employer]IVE [employer]CE HAND[employer]ER Legal Sex Female 7:02 PM CDT Gender Identity Not on file Sexual Orientation Not on file documented as of this encounter Plan of Treatment Not on file documented as of this encounter Visit Diagnoses Not on filedocumented in this encounter Care Teams Landscape Architecture Teacher Relationship Specialty Start Date End Date Yaneth Lagos MD [address] [phone] PCP - General 03/22/17 04/07/18 Yaneth Lagos MD [address] [facility] [address] [place] [address] PCP - General FAMILY PRACTICE 09/17/19 06/15/22 Adele Lagos MD [address] [place] [address] PCP - General INTERNAL MEDICINE 06/16/22 11/02/24 Brissa Tijerina MD [address] [place] [address] PCP - General FAMILY PRACTICE 11/03/24 Hero Bearden MD [address] [facility] [address] [place] [phone] Tunnel Kiln Operator OBGYN 04/04/22 Ce Villalobos MD [address] [place] [address] [facility] CARDIOVASCULAR DISEASE 07/18/22 documented as of this encounter
[2025-07-04 19:58] LABS: Alanine Aminotransferase 36 U/L (6-35); Albumin Level 4.0 g/dL (3.5-5.1); Alkaline Phosphatase 163 U/L (38-126); Anion Gap 6 mmol/L (4-12); Aspartate Amino Transferase 48 U/L (14-36); Bilirubin,Total 0.7 mg/dL (0.2-1.3); Blood Urea Nitrogen 16 mg/dL (7-17); Calcium 9.4 mg/dL (8.4-10.2); Carbon Dioxide 25 mmol/L (22-30); Chloride 103 mmol/L (98-107); Estimated Glomerular Filt Rate > 60; Glucose 199 mg/dL (65-110); Lipase 70 U/L (23-300); Potassium 4.2 mmol/L (3.4-5.0); Sodium 134 mmol/L (137-145); Total Protein 7.5 g/dL (6.3-8.2)
[2025-07-04 20:03] LABS: Add Urine Microscopic? YES; Appearance Urine Cloudy (Clear); Glucose Urine UA 2+ mg/dL (Negative); Leukocyte Esterase Ur 1+ LEU/UL (Negative); Need Manual Microscopic Reviewed; Nitrate Urine Negative (Negative); Non Pathogenic Casts 0-2; Specific Grav Ur 1.022 (1.001-1.035)
[2025-07-04] MEDS: SODIUM CHLORIDE 0.9% IV 1,000 ML 999 ML IV CONT (20:13)
[2025-07-04] MEDS: METOCLOPRAMIDE HCL INJ 10 MG/2 ML VIAL IV PUSH (20:14)
[2025-07-04 20:17] VITALS: BP 156/62; PULSE 71; RESP 15; O2SAT 98
[2025-07-04] MEDS: MORPHINE SULFATE (*CRX) 4 MG/ML INJ IV PUSH (20:26)
[2025-07-04] MEDS: KETOROLAC 30 MG/ML VIAL (*BKC) IV PUSH (21:28)
[2025-07-04 21:31] VITALS: BP 154/71; PULSE 67; RESP 19; O2SAT 99
[2025-07-04] MEDS: DICYCLOMINE HCL 10 MG CAPSULE 20 MG PO (21:31)
[2025-07-04] MEDS: HYDROmorphone HCL INJ (*CRX) 1 MG/ML SYR IV PUSH (22:08)
== END 2025-07-04 22:21 | disposition home or self-care (01) ==
PROVIDERS: Emergency Provider Student in an Organized Health Care Education/Training Program; PCP Family Medicine
DX: R10.31 Right lower quadrant pain (principal); E11.43 Type 2 diabetes mellitus with diabetic autonomic (poly)neuropathy; K31.84 Gastroparesis; I10 Essential (primary) hypertension; J45.909 Unspecified asthma, uncomplicated; K58.9 Irritable bowel syndrome, unspecified; M19.90 Unspecified osteoarthritis, unspecified site; Z79.899 Other long term (current) drug therapy; Z79.4 Long term (current) use of insulin; Z79.82 Long term (current) use of aspirin
CPT/HCPCS: 36415; 80053; 81001; 83690; 85025; 96361; 96372; 96374; 96375; 99284; A9270; J1171; J1885; J2270; J2765; J3410; J7030

== ENCOUNTER 2025-07-21 16:06 | Emergency (ER) | payer MEDICARE, SELFPAY ==
--- NOTE | ~2025-07-21 | CT_ITS ---
EXAMINATION: CT abdomen pelvis w con DATE: 07/21/2025 19:23 INDICATION: Lower abdominal pain TECHNIQUE: Computed tomography (CT) of the abdomen and pelvis was performed with 100 cc Omnipaque 350 intravenous contrast. The dose-length product was 1435.33 mGy-cm. Automated exposure control and iterative reconstruction technique were employed. COMPARISON: CT dated 06/15/2025 FINDINGS: Lung bases unremarkable. No pleural or pericardial effusion. Heart size normal. No significant vascular abnormality. No lymphadenopathy. Small fat- containing umbilical hernia. Fatty infiltration of the liver. Status post cholecystectomy. The spleen, pancreas, adrenal glands and kidneys are un remarkable. There are calcified granulomas in the gluteal regions bilaterally. Status post cholecystectomy. Nonobstructive bowel gas pattern. No free air or free fluid. There is a small fat-containing partially calcified mass adjacent to the umbilicus, consistent with sequela of epiploic appendagitis. Mild lumbar spondylosis. Mild osteoarthritis of the hips. IMPRESSION: 1. No acute abdominal abnormality. Reviewed, dictated and finalized at location O. HER SPECIALIST
--- OUTSIDE RECORDS SUMMARY | 2025-07-21 16:08 | XMS_ITS ---
Author Organization Unknown Address [address] [place] [phone] Phone Care Team Providers Care Surface Water Technician Name Role Phone YRN ZEPEDA Attending Unavailable CARRILLO COATS Primary Unavailable Social History Type Status Start Date End Date Code Code Syst em Smoking History Never smoker (Never Smoked) 782213356 SNOMED CT Sex Female Vital Signs Vital Sign Value Unit [place] Value [place] Unit Date/Time Recent/Initial? Code Code System Body Mass Index 43.85 kg/m2 10/24/2024 19:25 Initial 17732 -5 LOINC Systolic Blood Pressure 127 mm[Hg] 10/24/2024 20:30 Most Recent 8480- 6 LOINC Diastolic Blood Pressure 85 mm[Hg] 10/24/2024 20:30 Most Recent 8462- 4 LOINC Systolic Blood Pressure 143 mm[Hg] 10/24/2024 19:25 Initial 8480- 6 LOINC Diastolic Blood Pressure 87 mm[Hg] 10/24/2024 19:25 Initial 8462- 4 LOINC Body Surface Area 2.45 m2 10/24/2024 19:25 Initial 3140- 1 LOINC Height 170.180 0 cm 67.00 in 10/24/2024 19:25 Initial 8302- 2 LOINC O2 Saturation 96 % 2024 20:30 Most Recent 87994 -5 LOINC O2 Saturation 97 % 2024 19:25 Initial 03224 -5 LOINC Pulse 61.0 /min 10/24/2024 20:30 Most Recent 8867- 4 LOINC Pulse 67.0 /min 10/24/2024 19:25 Initial 8867- 4 LOINC Respiration 17 /min 10/24/19 20:30 Most Recent 9279- 1 LOINC Respiration 20 /min 10/24/19 19:25 Initial 9279- 1 [facility] Temperature 36.8 Alexandrea 98.3 F 10/24/19 19:25 Initial 8310- 5 [facility] Weight 127.01 kg 280.00 lbs 10/24/2024 19:25 Initial 88298 -7 [facility] Medications Medication Start Date End Date Route Frequency Dose Code Code System Medication Instructions Home Meds Lidoderm 5% Topical application Patch, Extended Release 11/02/2024 02/28/2025 1 0774255 RxNorm 1 patch daily Zofran 4MG Oral Tablet 05/03/2025 Unknown ORAL EVERY 6 HOURS 1 TABLET 897171 RxNorm TAKE 1 TABLET ORAL EVERY 6 HOURS FOR Nausea Assessment You had the following problems:CHRONIC NECK PAINDISORDER OF ROTATOR CUFFSPRAIN OF LEFT SHOULDERCHRONIC BACK PAINCHRONIC MIGRAINEDIABETESGASTROPARESESMERKEL CELL NEOPLASMHYPERTENSIONDRUG SEEKING BEHAVIORMALINGERING Hospital Discharge Instructions Should you have any questions prior to discharge, please contact a member of your healthcare team. If you have left the hospital and have any questions, please contact your primary care physician. Reason For Referral No Data Found Procedures Procedure Name Date Status Code Code Syste m BIOPSY/REMOVAL LYMPH NODES completed [id number] SNOMEDCT Problems Problem Start Date Resolved Date Status Code Code System CHRONIC NECK PAIN active 733528105404 7 SNOMED-CT DISORDER OF ROTATOR CUFF active 651801114 SNOMED-CT SPRAIN OF LEFT SHOULDER active 80249702770782322 SNOMED-CT CHRONIC BACK PAIN active 725993822 SN OMED-CT CHRONIC MIGRAINE active 912401683 SNO MED-CT DIABETES active 92486935 SNOMED-CT GASTROPARESES active 090048359 SNOMED -CT ERIKA CELL NEOPLASM active 012371920 SNOMED-CT HYPERTENSION active 71640109 SNOMED- CT DRUG SEEKING BEHAVIOR active 98032992 SNOMED-CT MALINGERING active 17452944 SNOMED-C 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 10/24/2024 resolved 71751040 SNOMED-CT Allergies and Adverse Reactions Allergy Substance Reaction Severity Start Date Concern Status Code Code System PROCHLORPERAZINE go crazy (SNOMED-CT: null) Severe Active 8704 RxNorm ISOSORBIDE MONONITRATE SOB, anxiety (SNOMED-CT: null) Active 11911 RxNorm CLARITHROMYCIN Vomiting (SNOMED-CT: 738951896) Severe Active RxNorm BENADRYL went crazy (SNOMED-CT: null) Severe Active 20340118 RxNorm IMITREX Tachycardia (SNOMED-CT: 2611954) Moderate Active 21760916 RxNorm Plan of Treatment No Data Found Encounters Encounter Diagnosis Start Date Code Code Sys tem Backache 10/24/2024 854350943 Tinker GamesOMED-CT Personal Care Team Section
--- OUTSIDE RECORDS SUMMARY | 2025-07-21 16:08 | XMS_ITS ---
Author Organization Unknown Address [address] [place] [phone] Phone Care Team Providers Care Blue Leather Setter Name Role Phone ELAINE ATWOOD Registered Nurse Unavailable COLBY JONES Attending Unavailable CARRILLO COATS Primary Unavailable Results XR SHOULDER COMPLETE 2 OR GR EATER VWS LT - Completed: 12/06/2024 21:41 LOINC: [address] [address] Name: TERE ALANIS Exam: XR SHOULDER COMPLETE 2 OR GREATER VWS LT Exam Date: 12/06/2024 : 1970 Acc#: [id number] Ordering: SHADI BOWMAN Referrer: PAULY VIZCAINO EXAM DESCRIPTION: XR SHOULDER COMPLETE 2 OR GREATER VWS LT REASON FOR STUDY: Patient arrives to ED with complaint of right shoulder pain. Patient denies trauma. Duration: today TECHNIQUE: 3 radiographic view(s) of the left shoulder . COMPARISON: None available FINDINGS: The alignment is normal. There is no acute fracture. The glenohumeral and acromioclavicular joints are normal. There is rotator cuff calcific tendinosis characterized by a faint calcifications adjacent to the superior/superolateral humeral head measuring up to 24 mm. Aggressive bone lesions. IMPRESSION: No acute osseous abnormality. Left rotator cuff calcific tendinosis. THIS IS AN ELECTRONICALLY VERIFIED FINAL REPORT 12/06/2024 10:15 PM - Electronically signed by Emperatriz Horne M.D. AT: AT Report ID: [id number] Reading Location: [id number] Social History Type Status Start Date End Date Code Code Syst em Smoking History Never smoker (Never Smoked) 990956720 SNOMED CT Sex Female Vital Signs Vital Sign Value Unit [place] Value [place] Unit Date/Time Recent/Initial? Code Code System Body Mass Index 44.32 kg/m2 12/06/2024 19:57 Initial 78926 -5 LOINC Systolic Blood Pressure 172 mm[Hg] 12/06/2024 22:40 Most Recent 8480- 6 LOINC Diastolic Blood Pressure 75 mm[Hg] 12/06/2024 22:40 Most Recent 8462- 4 LOINC Systolic Blood Pressure 188 mm[Hg] 12/06/2024 19:57 Initial 8480- 6 LOINC Diastolic Blood Pressure 78 mm[Hg] 12/06/2024 19:57 Initial 8462- 4 LOINC Body Surface Area 2.46 m2 12/06/2024 19:57 Initial 3140- 1 LO[facility] Height 170.180 0 cm 67.00 in 12/06/2024 19:57 Initial 8302- 2 LOINC O2 Saturation 97 % 2024 22:40 Most Recent 21674 -5 LOINC O2 Saturation 97 % 2024 19:57 Initial 67078 -5 LOINC Pulse 84.0 /min 12/06/2024 22:40 Most Recent 8867- 4 LOINC Pulse 80.0 /min 12/06/2024 19:57 Initial 8867- 4 LOINC Respiration 20 /min 12/07/19 22:40 Most Recent 9279- 1 LOINC Respiration 20 /min 12/07/19 19:57 Initial 9279- 1 [facility] Temperature 36.4 Alexandrea 97.6 F 12/07/19 19:57 Initial 8310- 5 [facility] Weight 128.37 kg 283.00 lbs 12/06/2024 19:57 Initial 09692 -7 [facility] Medications Medication Start Date End Date Route Frequency Dose Code Code System Medication Instructions Home Meds Lidoderm 5% Topical application Patch, Extended Release 11/02/2024 02/28/2025 1 0978232 RxNorm 1 patch daily Zofran 4MG Oral Tablet 05/03/2025 Unknown ORAL EVERY 6 HOURS 1 TABLET 570768 RxNorm TAKE 1 TABLET ORAL EVERY 6 [...] physician. Reason For Referral No Data Found Problems Problem Start Date Resolved Date Status Code Code System CHRONIC NECK PAIN active 949534864357 7 SNOMED-CT DISORDER OF ROTATOR CUFF active 500643903 SNOMED-CT SPRAIN OF LEFT SHOULDER active 28491959461461098 SNOMED-CT CHRONIC BACK PAIN active 499634345 SN OMED-CT CHRONIC MIGRAINE active 303633651 SNO MED-CT DIABETES active 06055572 SNOMED-CT GASTROPARESES active 726620368 SNOMED -CT ERIKA CELL NEOPLASM active 480910509 SNOMED-CT HYPERTENSION active 06369158 SNOMED- CT DRUG SEEKING BEHAVIOR active 77203611 SNOMED-CT MALINGERING active 14009125 SNOMED-C 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 10/24/2024 resolved 15947965 SNOMED-CT Allergies and Adverse Reactions Allergy Substance Reaction Severity Start Date Concern Status Code Code System PROCHLORPERAZINE go crazy (SNOMED-CT: null) Severe Active 8704 RxNorm ISOSORBIDE MONONITRATE SOB, anxiety (SNOMED-CT: null) Active 51359 RxNorm CLARITHROMYCIN Vomiting (SNOMED-CT: 453285247) Severe Active 13674 RxNorm BENADRYL went crazy (SNOMED-CT: null) Severe Active 708112 RxNorm IMITREX Tachycardia (SNOMED-CT: 8963476) Moderate Active 361965 RxNorm Plan of Treatment No Data Found Encounters Encounter Diagnosis Start Date Code Code Sys tem 12/06/2024 [id number] SNOMED-CT Personal Care Team Section
--- OUTSIDE RECORDS SUMMARY | 2025-07-21 16:08 | XMS_ITS ---
Author Organization Unknown Address [address] [place] [address] [phone] Phone Care Team Providers Care Aviation Medicine Specialist Name Role Phone PAPO RAMOS Registered Nurse Unavailable JULIETA SHAW Attending Unavailable CARRILLO COATS Primary Unavailable Social History Type Status Start Date End Date Code Code Syst em Smoking History Never smoker (Never Smoked) 452165407 SNOMED CT Sex Female Vital Signs Vital Sign Value Unit [place] Value [place] Unit Date/Time Recent/Initial? Code Code System Body Mass Index 43.07 kg/m2 05/23/2025 17:00 Initial 82864 -5 LOINC Systolic Blood Pressure 140 mm[Hg] 05/23/2025 18:35 Most Recent 8480- 6 LOINC Diastolic Blood Pressure 74 mm[Hg] 05/23/2025 18:35 Most Recent 8462- 4 LOINC Systolic Blood Pressure 150 mm[Hg] 05/23/2025 17:00 Initial 8480- 6 LOINC Diastolic Blood Pressure 88 mm[Hg] 05/23/2025 17:00 Initial 8462- 4 LOINC Body Surface Area 2.43 m2 05/23/2025 17:00 Initial 3140- 1 LOINC Height 170.180 0 cm 67.00 in 05/23/2025 17:00 Initial 8302- 2 LOINC O2 Saturation 97 % 2024 18:35 Most Recent 26959 -5 LOINC O2 Saturation 99 % 2024 17:00 Initial 06654 -5 LOINC Pulse 74.0 /min 05/23/2025 18:35 Most Recent 8867- 4 LOINC Pulse 79.0 /min 05/23/2025 17:00 Initial 8867- 4 LOINC Respiration 21 /min 05/23/20 18:35 Most Recent 9279- 1 LOINC Respiration 18 /min 05/23/20 17:00 Initial 9279- 1 [facility] Temperature 36.9 Alexandrea 98.4 F 05/23/20 17:00 Initial 8310- 5 [facility] Weight 124.74 kg 275.00 lbs 05/23/2025 17:00 Initial 07047 -7 [facility] Medications Medication Start Date End Date Route Frequency Dose Code Code System Medication Instructions Home Meds Zofran 4MG Oral Tablet 05/03/2025 Unknown ORAL EVERY 6 HOURS 1 TABLET 943062 RxNorm TAKE 1 TABLET ORAL EVERY 6 [...] Code Code System CHRONIC NECK PAIN active 636983097204 7 SNOMED-CT DISORDER OF ROTATOR CUFF active 475270038 SNOMED-CT SPRAIN OF LEFT SHOULDER active 71800134071473070 SNOMED-CT CHRONIC BACK PAIN active 334871266 SN OMED-CT CHRONIC MIGRAINE active 875953028 SNO MED-CT DIABETES active 09268861 SNOMED-CT GASTROPARESES active 090241529 SNOMED -CT ERIKA CELL NEOPLASM active 078285631 SNOMED-CT HYPERTENSION active 45766073 SNOMED- CT DRUG SEEKING BEHAVIOR active 43643600 SNOMED-CT MALINGERING active 48379182 SNOMED-C 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 10/24/2024 resolved 26387985 SNOMED-CT Allergies and Adverse Reactions Allergy Substance Reaction Severity Start Date Concern Status Code Code System PROCHLORPERAZINE go crazy (SNOMED-CT: null) Severe Active 8704 RxNorm ISOSORBIDE MONONITRATE SOB, anxiety (SNOMED-CT: null) Active 76190 RxNorm CLARITHROMYCIN Vomiting (SNOMED-CT: 167089318) Severe Active 60110 RxNorm BENADRYL went crazy (SNOMED-CT: null) Severe Active 20340118 RxNorm IMITREX Tachycardia (SNOMED-CT: 7722089) Moderate Active 364030 RxNorm Plan of Treatment No Data Found Encounters Encounter Diagnosis Start Date Code Code Sys tem Migraine 05/23/2025 15770298 SNOMED-CT Personal Care Team Section
--- OUTSIDE RECORDS SUMMARY | 2025-07-21 16:09 | XMS_ITS | Clinical Summary ---
Author Organization [facility] Virtual Care Address [address] [place] [phone] Phone Care Team Providers Care Collection Team Lead Name Role Phone Brissa Tijerina MD Primary Care Provider [phone] Allergies Active Allergy Reactions Criticality Noted Date Comments Clarithromycin Diphenhydramine Agitation Low Isosorbide Mononitrate Agitation Low 07/13/2025 Metoclopramide Other (See comments) Low Patient can take PO form of Reglan just not IV or Im. Pt gets irritated when taking these IV or IM form. Prochlorperazine Agitation Low Sumatriptan Vomiting Low Medications atorvastatin (LIPITOR) 40 mg tablet 7 Active acyclovir (ZOVIRAX) 400 mg tablet Active insulin lispro (HumaLOG) 100 unit/mL injection Inject under the skin. Active ketorolac (TORADOL) 10 mg tablet Take 10 mg by mouth. Active insulin glargine (LANTUS) 100 unit/mL injection Inject under the skin. Active citalopram (CeleXA) 40 mg tablet Take 40 mg by mouth. Active butalbital-acetamin ophen-caffeine (FIORICET,ESGIC) 50-300-40 mg per capsule Take by mouth. Active butalbital-acetamin ophen-caff (ESGIC) 50-325-40 mg per capsule Active amLODIPine (NORVASC) 5 mg tablet Take 5 mg by mouth. Active AZURETTE, 28, 0.15-0.02 mgx21 /0.01 mg x 5 per tablet 7 Active doxepin (SINEquan) 25 mg capsule 7 Active glipiZIDE (GLUCOTROL) 10 mg tabletIndications:t ype 2 diabetes mellitus 7 Active metoprolol XL (TOPROL-XL) 200 mg 24 hr tablet 7 Active ondansetron (ZOFRAN) 4 mg tablet Take 4 mg by mouth. 5 Active dicyclomine (BENTYL) 20 mg tablet 7 Active famotidine (PEPCID) 20 mg tablet 7 Active metoclopramide (REGLAN) 10 mg tablet Take 10 mg by mouth 4 (four) times a day. Active triamcinolone (KENALOG) 0.1 % paste Apply 0.25 inches to teeth 3 (three) times a day. 5 g 1 8 Active DOXEPIN HCL, BULK, MISC Take 75 mg by mouth nightly. Active gabapentin (NEURONTIN) 300 mg capsuleIndications: Neuropathic Pain Take 2 capsules (600 mg total) by mouth 3 (three) times a day 90 capsule 0 Active cyclobenzaprine (FLEXERIL) 10 mg tabletIndications:M uscle Spasm Take 1 tablet (10 mg total) by mouth 3 (three) times a day as needed for muscle spasms 21 tablet 0 Active HYDROcodone-acetami nophen (NORCO) 5-325 mg per tabletIndications:P ain Take 1 tablet by mouth every 6 (six) hours as needed for pain Do not exceed 8 tablets/day. 20 tablet 0 Active ondansetron ODT (ZOFRAN-ODT) 4 mg disintegrating tablet Take 1 tablet (4 mg total) by mouth every 8 (eight) hours as needed for nausea 20 tablet 5 Active HYDROcodone-acetami nophen (NORCO) 5-325 mg per tabletIndications:P ain Take 1 tablet by mouth every 6 (six) hours as needed for pain for up to 12 doses 12 tablet 5 Active loperamide (IMODIUM) 2 mg capsule Take 1 capsule (2 mg total) by mouth 4 (four) times a day as needed for diarrhea 12 capsule Active Active Problems Problem Noted Date Diagnosed Date Acute exacerbation of chronic low back pain 11/13 Aphthous ulcer of tongue 12/05/2017 Migraine without aura and wi thout status migrainosus, not intractable 08/26/2017 Encounters Date Type Department Care Team Description 07/13/2025 6:23 AM CDT - 07/13/2025 8:59 AM CDT Emergency [facility] Emergency Department [address] [place] [id number] Yves Andre MD Chest pain, unspecified type (Primary Dx) Discharge Disposition: Discharge to home or self care 07/07/2025 12:23 PM CDT - 07/07/2025 3:20 PM CDT Emergency [facility] Emergency Department [address] [place] [id number] Abdominal pain, unspecified abdominal location (Primary Dx); Diarrhea, unspecified type Discharge Disposition: Discharge to home or self care 06/25/2025 9:29 PM CDT - 06/25/2025 11:28 PM CDT Emergency [facility] Emergency Department [address] [place] [phone] Rox Amos MD Right lower quadrant abdominal pain (Primary Dx) Discharge Disposition: Discharge to home or self care 05/24/2025 Orders Only [facility] Medical Group Cardiology [address] [place] [address] Wm De La Garza MD from Last 3 Months Surgical History Surgery Date Site/Laterality Comments KNEE SURGERY APPENDECTOMY CHOLECYSTECTOMY Medical History Medical History Date Comments Cancer (HCC) Diabetes mellitus Hypertension Migraine Back pain Social History Tobacco Use Types Packs/Day Years Used Date Smoking Tobacco: Never Smokeless Tobacco: Never Alcohol Use Standard Drinks/Week Comments No 0 (1 standard drink = 0.6 oz pur e alcohol) Personal Safety Answer Date Recorded Have you ever been in or are you currently in a harmful physical or emotional relationship or is someone making you feel afraid or unsafe? 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 Gender Identity Not on file Sexual Orientation Not on file Last Filed Vital Signs Vital Sign Reading Time Taken Comments Blood Pressure 140/70 07/13/2025 8:30 AM CDT Pulse 67 07/13/2025 8:30 AM CDT Temperature 36.6 C (97.9 F) 07/13/2025 6:15 AM CDT Respiratory Rate 13 07/13/2025 8:30 AM CDT Oxygen Saturation 95% 07/13/2025 8:30 AM CDT Inhaled Oxygen Concentration - - Weight 122.9 kg (271 lb) 07/13/2025 6:13 AM CDT Height 170.2 cm (5' 7) 07/13/2025 6:13 AM CDT Body Mass Index 42.44 07/13/2025 6:13 AM CDT Plan of Treatment Health Maintenance Due Date Last Done Comments Breast Cancer Screening-Mammogram 1970 Colon Cancer Screening-Colonoscopy 1970 Depression Screening 1970 Hepatitis C Screening 1970 Hepatitis B Screening 1988 Regular Well Visit/Exam 18-64 1988 DTaP/Tdap/Td Vaccine (2 - Td or Tdap) 05/31/2017 05/31/2007 Cervical Cancer Screening 10/31/2023 10/31/2022 Covid-19 Vaccine ( season) 2025 09/13/2021, 12/14/2020, 11/16/2020 Influenza Vaccine (#1) 2025 4, 06/16/2021, 09/29/2020, Additional history exists Pneumococcal vaccine <65 Aged Out 10/02/2020 No longer eligible based on patient's age to complete this topic Zoster Vaccine Completed 09/13/2021, 06/16/2021 Procedures Procedure Name Priority Date/Time Associated Diagnosis Comments TROPONIN T HIGH-SENSITIVITY 2-HOUR Timed 07/13/2025 8:01 AM CDT XR CHEST 1 VIEW ED 07/13/2025 6:42 AM CDT ECG 12-LEAD STAT 07/13/2025 6:26 AM CDT EGFR STAT 07/13/2025 6:24 AM CDT DIFFERENTIAL AUTO STAT 07/13/2025 6:2 4 AM CDT TROPONIN T HIGH-SENSITIVITY SERIES (BASELINE, 2HR, 4HR, 6HR) STAT 07/13/2025 6:24 AM CDT COMPREHENSIVE METABOLIC PANEL STAT 07/13/2025 6:24 AM CDT CBC WITH AUTO DIFFERENTIAL STAT 07/13/2025 6:[address] ABDOMEN PELVIS W CONTRAST ED 07/07/2025 1:42 PM CDT EGFR STAT 07/07/2025 12:53 PM CDT DIFFERENTIAL AUTO STAT 07/07/2025 12: 53 PM CDT MAGNESIUM STAT 07/07/2025 12:53 PM CDT LIPASE STAT 07/07/2025 12:53 PM CDT COMPREHENSIVE METABOLIC PANEL STAT 07/07/2025 12:53 PM CDT CBC WITH AUTO DIFFERENTIAL STAT 07/07/2025 12:53 PM CDT URINALYSIS AND REFLEX TO MICROSCOPIC AND CULTURE STAT 07/07/2025 12:53 PM CDT URINALYSIS, MICROSCOPIC ONLY STAT 06/25/2025 10:46 PM CDT URINE CULTURE STAT 06/25/2025 10:46 PM CDT URINALYSIS AND REFLEX TO MICROSCOPIC AND CULTURE STAT 06/25/2025 10:[address] ABDOMEN PELVIS WO CONTRAST ED 06/25/2025 9:14 PM CDT EGFR STAT 06/25/2025 9:07 PM CDT DIFFERENTIAL AUTO STAT 06/25/2025 9:0 7 PM CDT LIPASE STAT 06/25/2025 9:07 PM CDT COMPREHENSIVE METABOLIC PANEL STAT 06/25/2025 9:07 PM CDT CBC WITH AUTO DIFFERENTIAL STAT 06/25/2025 9:07 PM CDT CARDIOLOGY DOCUMENT SCAN Routine 05/15/2025 1:54 PM CDT CARDIOLOGY DOCUMENT SCAN Routine 05/14/2025 1:52 PM CDT from Last 3 Months Results * Troponin T high-sensitivity 2-hour (07/13/2025 8:01 AM CDT) Trop T hs 7 <=14 ng/L Comment: Interpretive Data For further hscTnT resources including the diagnostic algorithm and an aid in interpretation, copy and paste this link: https://nrl.testcatalog.org/show/hsTrop Current Interpretive Data last revised 2020. Trop T hs delta -1 ng/L [facility] ([place]) Trop T hs interp Insignificant [facility] ([place]) Blood 07/13/2025 8:01 AM CDT 07/13/2025 8:05 AM CDT us Yves Andre MD LAB BLOOD ORDERABLE S Final Result [facility] ([place]) 1 [facility] [place] [address] * XR Chest 1 View (07/13/2025 6:42 AM CDT) Anatomical Region Laterality Modality Body, Chest N/A Computed Radiogr aphy 07/13/2025 6:47 AM CDT Impressions 07/13/2025 6:47 AM CDT No acute abnormality identified. Electronically signed by: Yves Rodriguez M.D. Narrative 07/13/2025 6:47 AM CDT EXAMINATION: 1 view chest radiograph History: Midsternal chest pain, shortness of breath since last night COMPARISON: None TECHNIQUE: Single view chest FINDINGS: Lungs are clear. Heart size normal. Mild shoulder arthritis. Upper abdomen unremarkable. Procedure Note Yves Rodriguez MD - 07/13/2025 EXAMINATION: 1 view chest radiograph History: Midsternal chest pain, shortness of breath since last night COMPARISON: None TECHNIQUE: Single view chest FINDINGS: Lungs are clear. Heart size normal. Mild shoulder arthritis. Upper abdomen unremarkable. IMPRESSION: No acute abnormality identified. Electronically signed by: Yves Rodriguez M.D. Yves Andre MD IMG XR PROCEDURES F inal Result * ECG 12 lead (07/13/2025 6:26 AM CDT) 07/13/2025 6:26 AM CDT Narrative [facility] - 07/13/2025 8:13 AM CDT Vent Rate: 70 bpm RR Interval: 851 msec LA Interval: 165 msec QRS Duration: 94 msec QT Interval: 377 msec QTC Interval: 398 msec P-R-T [place]: 80 - -8 - 70 degrees IMPRESSION: SINUS RHYTHM NORMAL ECG Electronically Signed By: Wm De La Garza MD Yves Andre MD ECG ORDERABLES Fin al Result [facility] * Troponin T high-sensitivity series (baseline, 2hr, 4hr, 6hr) (07/13/2025 6:24 AM CDT) Trop T hs 8 <=14 ng/L Comment: Interpretive Data For further hscTnT resources including the diagnostic algorithm and an aid in interpretation, copy and paste this link: https://nrl.testcatalog.org/show/hsTrop Current Interpretive Data last revised 2020. Blood 07/13/2025 6:24 AM CDT 07/13/2025 6:30 AM CDT us Yves Andre MD LAB BLOOD ORDERABLE S Final Result Performing Organization Address City/[facility] Co de Phone Number [facility] ([place]) 1 [facility] [place] [address] * eGFR (07/13/2025 6:24 AM CDT) eGFR >90 >=60 mL/min/1. 73 m2 Comment: Interpretive Data Reference Interval Normal >/= 90 mL/min/1.73m2 Mildly decreased* 60 - 89 mL/min/1.73m2 Mildly to moderately decreased 45 - 59 mL/min/1.73m2 Moderately to severely decreased 30 - 44 mL/min/1.73m2 Severely decreased 15 - 29 mL/min/1.73m2 Kidney Failure < 15 mL/min/1.73m2 *Relative to young adult level Estimated glomerular filtration rate is determined by the 2020 CKD-EPI equation recommended by the National Kidney Foundation (A Unifying Approach to GFR Estimation: Recommendations of the NKF-ASK Task Force on Reassessing the Inclusion of Race in Diagnosing Kidney Disease, JASN 2020). The CKD-EPI equation should not be used for patients with unstable renal function and has not been validated in children and those over 70. Current interpretive data was last reviewed 2021. Blood 07/13/2025 6:24 AM CDT 07/13/2025 6:30 AM CDT us Yves Andre MD LAB BLOOD ORDERABLE S Final Result [facility] ([place]) 1 [facility] [place] [address] * Differential, auto (07/13/2025 6:24 AM CDT) Neutrophil abs 3.80 1.50 - 6.50 K/cumm Imm gran abs 0.02 0.00 - 0.10 K/cumm [facility] ([place]) Lymphocyte abs 1.84 0.80 - 3.30 K/cumm [facility] ([place]) Monocyte abs 0.59 0.20 - 0.80 K/cumm [facility] ([place]) Eosinophil abs 0.28 0.00 - 0.50 K/cumm [facility] ([place]) Basophil abs 0.06 0.00 - 0.10 K/cumm [facility] ([place]) Neutrophil pct 57.7 % [facility] ([place]) Comment: Interpretive Data Percent cell count reference ranges are not reported, since discordance with absolute values may lead to misinterpretation of CBC data. Current Interpretive Data was last revised on 2017. Imm gran pct 0.3 % [facility] ([place]) Comment: Interpretive Data Percent cell count reference ranges are not reported, since discordance with absolute values may lead to misinterpretation of CBC data. Current Interpretive Data was last revised on 2017. Lymphocyte pct 27.9 % [facility] ([place]) Comment: Interpretive Data Percent cell count reference ranges are not reported, since discordance with absolute values may lead to misinterpretation of CBC data. Current Interpretive Data was last revised on 2017. Monocyte pct 9.0 % [facility] ([place]) Comment: Interpretive Data Percent cell count reference ranges are not reported, since discordance with absolute values may lead to misinterpretation of CBC data. Current Interpretive Data was last revised on 2017. Eosinophil pct 4.2 % [facility] ([place]) Comment: Interpretive Data Percent cell count reference ranges are not reported, since discordance with absolute values may lead to misinterpretation of CBC data. Current Interpretive Data was last revised on 2017. Basophil pct 0.9 % [facility] ([place]) Comment: Interpretive Data Percent cell count reference ranges are not reported, since discordance with absolute values may lead to misinterpretation of CBC data. Current Interpretive Data was last revised on 2017. Blood 07/13/2025 6:24 AM CDT 07/13/2025 6:30 AM CDT us Yves Andre MD LAB BLOOD ORDERABLE S Final Result [facility] ([place]) 1 [facility] [place] [address] * (ABNORMAL) CBC with auto differential (07/13/2025 6:24 AM CDT) WBC 6.59 3.80 - 9.90 K/cumm Hgb 11.1(L) 11.9 - 15.5 g/dL [facility] ([place]) Hct 34.5(L) 35.6 - 45.5 % [facility] ([place]) Plt 296 150 - 400 K/cumm [facility] ([place]) MPV 9.4 9.1 - 12.3 fL [facility]) RBC 4.16 3.90 - 5.20 M/cumm [facility] ([place]) MCV 82.9 81.3 - 96.4 fL [facility]) MCH 26.7(L) 27.1 - 33.3 pg [facility]) MCHC 32.2(L) 32.3 - 35.7 g/dL [facility]) RDW CV 13.1 11.1 - 14.9 % [facility] RDW SD 39.0 35.7 - 48.1 fL [facility]) NRBC abs 0.00 0.00 - 0.01 K/cumm [facility] ([place]) Blood 07/13/2025 6:24 AM CDT 07/13/2025 6:30 AM CDT us Yves Andre MD LAB BLOOD ORDERABLE S Final Result [facility] ([place]) 1 [facility] [place] [address] * (ABNORMAL) Comprehensive metabolic panel (07/13/2025 6:24 AM CDT) Pathologist [facility] Sodium 140 135 - 145 mmol/L Potassium, pl 4.1 3.3 - 4.9 mmol/L [facility] Chloride 105 97 - 110 mmol/L [facility] CO2 25 22 - 32 mmol/L [facility] Anion gap 10 2 - 15 mmol/L [facility] ([place]) BUN 10 6 - 25 mg/dL [facility] ([place]) Creatinine 0.72 0.60 - 1.10 mg/dL [facility] Glucose 167 70 - 199 mg/dL [facility] ([place]) Comment: Interpretive Data Fasting glucose >/= 126 mg/dl is diagnostic for diabetes. Fasting is defined as no caloric intake for at least 8 hours. Fasting glucose between 100 mg/dl to 125 mg/dl is diagnostic of prediabetes. In a patient with classic symptoms of hyperglycemia or hyperglycemic crisis, a random glucose >/= 200 mg/dl is diagnostic for diabetes. In the absence of unequivocal hyperglycemia, results should be confirmed by repeat testing. The classification and Diagnosis of Diabetes Diabetes Care 2021; 46: S19-S40. Current interpretive data was last revised 2022. Calcium 9.5 8.5 - 10.3 mg/dL [facility] Bilirubin, total 0.4 0.1 - 1.2 mg/dL [facility] ([place]) Protein, pl 7.4 6.5 - 8.5 g/dL [facility] ([place]) Albumin 4.1 3.5 - 5.0 g/dL [facility] ([place]) Alk phos 152(H) 40 - 130 Units/L [facility]) ALT 15 7 - 45 Units/L [facility] AST 24 10 - 45 Units/L [facility] ([place] Blood 07/13/2025 6:24 AM CDT 07/13/2025 6:30 AM CDT us Yves Andre MD LAB BLOOD ORDERABLE S Final Result [facility] ([place]) 1 [facility] [place] [address] * CT Abdomen Pelvis W Contrast (07/07/2025 1:42 PM CDT) Anatomical Region Laterality Modality Body N/A Computed Tomogra phy 07/07/2025 2:15 PM CDT Impressions 07/07/2025 2:15 PM CDT 1. No acute findings in the abdomen or pelvis. 2. Slight increase in size of the fluid collection abutting the cholecystectomy clip, likely a postoperative collection such as a seroma. Electronically signed by: Abdulkadir Weiss M.D. Narrative 07/07/2025 2:15 PM CDT EXAMINATION: Computed tomography of the abdomen and pelvis with intravenous contrast HISTORY: Lower abdominal pain with diarrhea for 3 days. History of appendectomy and cholecystectomy. TECHNIQUE: Transaxial computed tomographic images of the abdomen and pelvis were obtained with intravenous contrast according to the standard protocol after the uneventful administration of 100 mL Opti-Ray 350 intravenous contrast. COMPARISON: 06/25/2025 FINDINGS: Tiny fat-containing umbilical hernia. Small focus of rounded fat attenuation with partially calcified rim just below the umbilicus is likely sequela of prior fat infarction. Unchanged small right ventral abdominal wall subcutaneous focal fat stranding is nonspecific, could be sequela of subcutaneous injection of there is appropriate clinical history.. There is coronary artery calcification. Minimal atelectasis at the lung bases. Liver contour and size are normal. No suspicious focal liver lesion.. Postoperative changes from cholecystectomy. Just posterior to the posterior cholecystectomy clips, there is a rounded 3.3 x 3.6 cm fluid attenuation structure, previously 3.0 x 2.7 cm (image 52 series 2). This does not appear to arise from the adjacent organs and could be a postoperative collection such as a seroma. No surrounding fat stranding. No intra or extrahepatic periductal dilatation is seen. The pancreas appears unremarkable. The spleen is unremarkable. The adrenal glands are normal. Cyst at the lower pole the right kidney. No hydroureteronephrosis or radiopaque urolithiasis.. Urinary bladder is unremarkable. No uterine or adnexal abnormality is seen. There are colonic diverticuli without evidence of acute diverticulitis.. The appendix is not seen and is by report surgically absent. Distal esophagus and stomach appear unremarkable. Small bowel appears normal. No retroperitoneal mass or adenopathy is seen. No peritoneal mass or adenopathy is seen. No free intraperitoneal gas or fluid No venous thrombosis identified.. Mild atherosclerosis. No acute fracture or aggressive bone lesion is seen. Altered level degenerative disc disease, worst at L5-S1. No acute fracture or aggressive bone lesion is seen. Procedure Note Abdulkadir Weiss MD - 07/07/2025 EXAMINATION: Computed tomography of the abdomen and pelvis with intravenous contrast HISTORY: Lower abdominal pain with diarrhea for 3 days. History of appendectomy and cholecystectomy. TECHNIQUE: Transaxial computed tomographic images of the abdomen and pelvis were obtained with intravenous contrast according to the standard protocol after the uneventful administration of 100 mL Opti-Ray 350 intravenous contrast. COMPARISON: 06/25/2025 FINDINGS: Tiny fat-containing umbilical hernia. Small focus of rounded fat attenuation with partially calcified rim just below the umbilicus is likely sequela of prior fat infarction. Unchanged small right ventral abdominal wall subcutaneous focal fat stranding is nonspecific, could be sequela of subcutaneous injection of there is appropriate clinical history.. There is coronary artery calcification. Minimal atelectasis at the lung bases. Liver contour and size are normal. No suspicious focal liver lesion.. Postoperative changes from cholecystectomy. Just posterior to the posterior cholecystectomy clips, there is a rounded 3.3 x 3.6 cm fluid attenuation structure, previously 3.0 x 2.7 cm (image 52 series 2). This does not appear to arise from the adjacent organs and could be a postoperative collection such as a seroma. No surrounding fat stranding. No intra or extrahepatic periductal dilatation is seen. The pancreas appears unremarkable. The spleen is unremarkable. The adrenal glands are normal. Cyst at the lower pole the right kidney. No hydroureteronephrosis or radiopaque urolithiasis.. Urinary bladder is unremarkable. No uterine or adnexal abnormality is seen. There are colonic diverticuli without evidence of acute diverticulitis.. The appendix is not seen and is by report surgically absent. Distal esophagus and stomach appear unremarkable. Small bowel appears normal. No retroperitoneal mass or adenopathy is seen. No peritoneal mass or adenopathy is seen. No free intraperitoneal gas or fluid No venous thrombosis identified.. Mild atherosclerosis. No acute fracture or aggressive bone lesion is seen. Altered level degenerative disc disease, worst at L5-S1. No acute fracture or aggressive bone lesion is seen. IMPRESSION: 1. No acute findings in the abdomen or pelvis. 2. Slight increase in size of the fluid collection abutting the cholecystectomy clip, likely a postoperative collection such as a seroma. Electronically signed by: Abdulkadir Weiss M.D. [facility] IMG CT PROCEDURES Final Result * eGFR (07/07/2025 12:53 PM CDT) Pathologist [facility] eGFR >90 >=60 mL/min/1. 73 m2 Comment: Interpretive Data Reference Interval Normal >/= 90 mL/min/1.73m2 Mildly decreased* 60 - 89 mL/min/1.73m2 Mildly to moderately decreased 45 - 59 mL/min/1.73m2 Moderately to severely decreased 30 - 44 mL/min/1.73m2 Severely decreased 15 - 29 mL/min/1.73m2 Kidney Failure < 15 mL/min/1.73m2 *Relative to young adult level Estimated glomerular filtration rate is determined by the 2020 CKD-EPI equation recommended by the National Kidney Foundation (A Unifying Approach to GFR Estimation: Recommendations of the NKF-ASK Task Force on Reassessing the Inclusion of Race in Diagnosing Kidney Disease, JASN 2020). The CKD-EPI equation should not be used for patients with unstable renal function and has not been validated in children and those over 70. Current interpretive data was last reviewed 2021. Blood 07/07/2025 12:5 3 PM CDT 07/07/2025 12:56 PM CDT us [facility] LAB BLOOD ORDERABLES Final Resu lt [facility] ([place]) 1 [facility] Department of Laboratories [place], [place] [id number] * Differential, auto (07/07/2025 12:53 PM CDT) Pathologist [facility] Neutrophil abs 3.85 1.50 - 6.50 K/cumm Imm gran abs 0.02 0.00 - 0.10 K/cumm [facility] ([place]) Lymphocyte abs 1.56 0.80 - 3.30 K/cumm [facility] ([place]) Monocyte abs 0.45 0.20 - 0.80 K/cumm [facility] ([place]) Eosinophil abs 0.20 0.00 - 0.50 K/cumm [facility] ([place]) Basophil abs 0.06 0.00 - 0.10 K/cumm [facility] ([place]) Neutrophil pct 62.7 % [facility] ([place]) Comment: Interpretive Data Percent cell count reference ranges are not reported, since discordance with absolute values may lead to misinterpretation of CBC data. Current Interpretive Data was last revised on 2017. Imm gran pct 0.3 % [facility] ([place]) Comment: Interpretive Data Percent cell count reference ranges are not reported, since discordance with absolute values may lead to misinterpretation of CBC data. Current Interpretive Data was last revised on 2017. Lymphocyte pct 25.4 % [facility] ([place]) Comment: Interpretive Data Percent cell count reference ranges are not reported, since discordance with absolute values may lead to misinterpretation of CBC data. Current Interpretive Data was last revised on 2017. Monocyte pct 7.3 % [facility] ([place]) Comment: Interpretive Data Percent cell count reference ranges are not reported, since discordance with absolute values may lead to misinterpretation of CBC data. Current Interpretive Data was last revised on 2017. Eosinophil pct 3.3 % [facility] ([place]) Comment: Interpretive Data Percent cell count reference ranges are not reported, since discordance with absolute values may lead to misinterpretation of CBC data. Current Interpretive Data was last revised on 2017. Basophil pct 1.0 % [facility] ([place]) Comment: Interpretive Data Percent cell count reference ranges are not reported, since discordance with absolute values may lead to misinterpretation of CBC data. Current Interpretive Data was last revised on 2017. Blood 07/07/2025 12:5 3 PM CDT 07/07/2025 12:56 PM CDT us Elaine LI LAB BLOOD ORDERABLES Final Resu lt [facility] ([place]) 1 [facility]ly [facility] [place] [address] * Urinalysis reflex to microscopic and culture Urine (07/07/2025 12:53 PM CDT) Color, ur Straw Yellow Clarity, ur Clear Clear [facility] ([place]) Specific gravity, ur 1.006 1.003 - 1.030 [facility] ([place]) pH, urine 7.0 [facility] ([place]) Comment: Interpretive Data U rine pH is affected by diet, medications, systemic acid-base disturbances, and renal tubular function. pH may affect urinary stone formation. For example, urine pH below 6.0 may help reduce the tendency for calcium phosphate stones and pH greater than 6.0 may reduce the tendency for uric acid stone formation. Source: [facility] Current Interpretive Data was last revised on 2017 Protein, ur ql Negative Negative [facility] ([place]) Glucose, ur ql Negative Negative [facility] ([place]) Ketones, ur Negative Negative [facility] ([place]) Bilirubin, ur Negative Negative [facility] ([place]) Blood, ur Negative Negative [facility] ([place]) Urobilinogen, ur <2.0 <2.0 mg/dL [facility] ([place]) Nitrite, ur Negative Negative [facility] ([place]) Leukocyte esterase, ur Negative Negative [facility] ([place]) UA reflex comment Reflex conditions for microscopic UA and culture not met. [facility] ([place]) Urine 07/07/2025 12:5 3 PM CDT 07/07/2025 12:56 PM CDT us Elaine LI LAB MICROBIOLOGY - GENERAL SCARLETT AVALOS Final Result [facility] ([place]) 1 [facility]ly [facility] [place] [address] * (ABNORMAL) CBC with auto differential (07/07/2025 12:53 PM CDT) WBC 6.14 3.80 - 9.90 K/cumm Hgb 10.6(L) 11.9 - 15.5 g/dL [facility] ([place]) Hct 33.5(L) 35.6 - 45.5 % [facility] ([place]) Plt 227 150 - 400 K/cumm [facility] ([place]) MPV 9.5 9.1 - 12.3 fL [facility] ([place]) RBC 3.95 3.90 - 5.20 M/cumm [facility] ([place]) MCV 84.8 81.3 - 96.4 fL [facility] ([place]) MCH 26.8(L) 27.1 - 33.3 pg [facility] ([place]) MCHC 31.6(L) 32.3 - 35.7 g/dL [facility] ([place]) RDW CV 12.7 11.1 - 14.9 % [facility] ([place]) RDW SD 39.0 35.7 - 48.1 fL [facility] ([place]) NRBC abs 0.00 0.00 - 0.01 K/cumm [facility] ([place]) Blood 07/07/2025 12:5 3 PM CDT 07/07/2025 12:56 PM CDT Elaine LI LAB BLOOD ORDERABLES Final Resu lt [facility] ([place]) 1 [facility] [place] [address] * Magnesium (07/07/2025 12:53 PM CDT) Magnesium 1.8 1.4 - 2.5 mg/dL Blood 07/07/2025 12:5 3 PM CDT 07/07/2025 12:56 PM CDT Elaine LI LAB BLOOD ORDERABLES Final Resu lt [facility] ([place]) 1 [facility] [place] [address] * Lipase (07/07/2025 12:53 PM CDT) Lipase 22 10 - 99 Units/L Blood 07/07/2025 12:5 3 PM CDT 07/07/2025 12:56 PM CDT Elaine LI LAB BLOOD ORDERABLES Final Resu lt [facility] ([place]) 1 [facility] [place] [address] * (ABNORMAL) Comprehensive metabolic panel (07/07/2025 12:53 PM CDT) Sodium 138 135 - 145 mmol/L Potassium, pl 4.2 3.3 - 4.9 mmol/L [facility] ([place]) Chloride 104 97 - 110 mmol/L [facility] ([place]) CO2 23 22 - 32 mmol/L [facility] ([place]) Anion gap 11 2 - 15 mmol/L [facility] ([place]) BUN 10 6 - 25 mg/dL [facility] ([place]) Creatinine 0.74 0.60 - 1.10 mg/dL [facility] ([place]) Glucose 192 70 - 199 mg/dL [facility] ([place]) Comment: Interpretive Data Fasting glucose >/= 126 mg/dl is diagnostic for diabetes. Fasting is defined as no caloric intake for at least 8 hours. Fasting glucose between 100 mg/dl to 125 mg/dl is diagnostic of prediabetes. In a patient with classic symptoms of hyperglycemia or hyperglycemic crisis, a random glucose >/= 200 mg/dl is diagnostic for diabetes. In the absence of unequivocal hyperglycemia, results should be confirmed by repeat testing. The classification and Diagnosis of Diabetes Diabetes Care 2021; 46: S19-S40. Current interpretive data was last revised 2022. Calcium 9.5 8.5 - 10.3 mg/dL [facility] ([place]) Bilirubin, total 0.5 0.1 - 1.2 mg/dL [facility] ([place]) Protein, pl 7.0 6.5 - 8.5 g/dL [facility] ([place]) Albumin 3.8 3.5 - 5.0 g/dL [facility] ([place]) Alk phos 151(H) 40 - 130 Units/L [facility] ([place]) ALT 23 7 - 45 Units/L [facility] ([place]) AST 29 10 - 45 Units/L [facility] ([place]) Blood 07/07/2025 12:5 3 PM CDT 07/07/2025 12:56 PM CDT us Elaine LI LAB BLOOD ORDERABLES Final Resu lt [facility] ([place]) 1 [facility] [employer] [address] * (ABNORMAL) Urinalysis reflex to microscopic and culture Urine (06/25/2025 10:46 PM CDT) Color, ur Yellow Yellow Clarity, ur Turbid(A) Clear [facility] ([place]) Specific gravity, ur 1.023 1.003 - 1.030 [facility] ([place]) pH, urine 6.0 [facility] ([place]) Comment: Interpretive Data U rine pH is affected by diet, medications, systemic acid-base disturbances, and renal tubular function. pH may affect urinary stone formation. For example, urine pH below 6.0 may help reduce the tendency for calcium phosphate stones and pH greater than 6.0 may reduce the tendency for uric acid stone formation. Source: [facility] Current Interpretive Data was last revised on 2017 Protein, ur ql 1+(A) Negative [facility] ([place]) Glucose, ur ql 1+(A) Negative [facility] ([place]) Ketones, ur Negative Negative [facility] ([place]) Bilirubin, ur Negative Negative [facility] ([place]) Blood, ur Trace(A) Negative [facility] ([place]) Urobilinogen, ur <2.0 <2.0 mg/dL [facility] ([place]) Nitrite, ur Negative Negative [facility] ([place]) Leukocyte esterase, ur 4+(A) Negative [facility] ([place]) UA reflex comment Reflex to microscopic UA will be performed. [facility] ([place]) Urine 06/25/2025 10:4 6 PM CDT 06/25/2025 10:52 PM CDT us Papito LI LAB MICROBIOLOGY - GENERAL ORDERABLES Final Result [facility] ([place]) 1 [facility] [place] [address] * (ABNORMAL) Urinalysis, microscopic only (06/25/2025 10:46 PM CDT) WBC, ur >50(A) 0 - 5 /HPF RBC, ur 6-10(A) 0 - 2 /HPF [facility] ([place]) Epithelial cells, squamous, ur 21-50(A) 0 - 5 /HPF [facility] ([place]) Bacteria, ur 3+(A) [facility] ([place]) Yeast, ur Trace(A) [facility] ([place]) Mucous, ur Present(A) [facility] ([place]) Culture Reflex Comment Reflex to urine culture will be performed. [facility] ([place]) Urine 06/25/2025 10:4 6 PM CDT 06/25/2025 10:52 PM CDT Papito LI LAB URINE ORDERA BLES Final Result Performing Organization Address City/[facility]/ZIP Co de Phone Number [facility] ([place]) [address] [place] [address] [place] [address] * Urine culture Urine (06/25/2025 10:46 PM CDT) Report Final Report: Less than 100,000 colonies/mL (clinically insignificant growth based on current clinical standards) Comment:Testing performed by : [facility], [address] [place]., [address] Organism (CLINICALLY INSIGNIFICANT GROWTH [facility] ([place]) Urine 06/25/2025 10:4 6 PM CDT 06/26/2025 1:36 AM CDT Narrative [facility] ([place]) - 06/27/2025 2:27 AM CDT Urine culture reflexed based upon urinalysis results. Testing performed by [facility] ([phone]) Papito LI LAB MICROBIOLOGY - GENERAL ORDERABLES Final Result [facility] ([place] 1 [facility] [place] [address] * CT Abdomen Pelvis WO Contrast (06/25/2025 9:14 PM CDT) Anatomical Region Laterality Modality Body N/A Computed Tomogra phy 06/25/2025 9:23 PM CDT Narrative 06/25/2025 9:33 PM CDT EXAM DESCRIPTION: CT ABDOMEN PELVIS WO CONTRAST REASON FOR STUDY: Abdominal pain CC of abdominal pain associated with nausea and vomiting with diarrhea. Known case of DM type 2 and hypertension. Reported sudden abdominal pain since 2 days MANAGER PROCESS and progressive pain with 3-4 episodes of vomiting one day MANAGER PROCESS. Pt. Stated pain mainly at RUQ down to RLQ. Pt. Also reported 7-8 episodes of diarrhea hours MANAGER PROCESS. TECHNIQUE: CT scan of the abdomen and pelvis performed without intravenous and without oral contrast using helical scanning technique. Reconstructed coronal and sagittal MPR images reviewed. All images stored on PACS. Automated exposure control was used as a dose optimization technique for this examination. COMPARISON: None FINDINGS: LOWER CHEST: Lung bases clear. Heart size normal. Coronary artery calcifications. LIVER/BILIARY: Liver unremarkable. Biliary tree normal in caliber. GALLBLADDER: Absent. SPLEEN: Normal. PANCREAS: Moderate atrophy. ADRENAL GLANDS: Normal. KIDNEYS/URINARY TRACT: Unremarkable. GI: Stomach and small bowel appear normal. Scattered noninflamed colonic diverticula. Appendix not seen. OTHER ABDOMINAL/PELVIS: Major vascular structures are normal in caliber. No enlarged lymph node or free fluid. MSK: Mild disc disease and facet arthropathy. BODY WALL: Unremarkable. IMPRESSION: No bowel inflammation or other acute abnormality identified. THIS IS AN ELECTRONICALLY VERIFIED FINAL REPORT 06/25/2025 9:33 PM - Electronically signed by Yves Rodriguez M.D. AR: SOFY Report ID: [id number] Reading Location: [id number] Procedure Note Yves Rodriguez MD - 06/25/2025 EXAM DESCRIPTION: CT ABDOMEN PELVIS WO CONTRAST REASON FOR STUDY: Abdominal pain CC of abdominal pain associated with nausea and vomiting with diarrhea.Known case of DM type 2 and hypertension. Reported sudden abdominal pain since 2 days MANAGER PROCESS and progressive pain with 3-4 episodes of vomiting one day MANAGER PROCESS.Pt. Stated pain mainly at RUQ down to RLQ. Pt. Also reported 7-8 episodes of diarrhea hours MANAGER PROCESS. TECHNIQUE: CT scan of the abdomen and pelvis performed without intravenousand without oral contrast using helical scanning technique. Reconstructed coronal and sagittal MPR images reviewed. All images stored on PACS.Automated exposure control was used as a dose optimization technique for this examination. COMPARISON: None FINDINGS: LOWER CHEST: Lung bases clear. Heart size normal. Coronary artery calcifications. LIVER/BILIARY: Liver unremarkable. Biliary tree normal in caliber. GALLBLADDER: Absent. SPLEEN: Normal. PANCREAS: Moderate atrophy. ADRENAL GLANDS: Normal. KIDNEYS/URINARY TRACT: Unremarkable. GI: Stomach and small bowel appear normal. Scattered noninflamed colonic diverticula. Appendix not seen. OTHER ABDOMINAL/PELVIS: Major vascular structures are normal in caliber.No enlarged lymph node or free fluid. MSK: Mild disc disease and facet arthropathy. BODY WALL: Unremarkable. IMPRESSION: No bowel inflammation or other acute abnormality identified. THIS IS AN ELECTRONICALLY VERIFIED FINAL REPORT 06/25/2025 9:33 PM - Electronically signed by Yves Rodriguez M.D. AR: SOFY Report ID: [id number] Reading Location: [place] [address] Rox Amos MD IMG CT PROCEDURES F inal Result * eGFR (06/25/2025 9:07 PM CDT) eGFR >90 >=60 mL/min/1. 73 m2 Comment: Interpretive Data Reference Interval Normal >/= 90 mL/min/1.73m2 Mildly decreased* 60 - 89 mL/min/1.73m2 Mildly to moderately decreased 45 - 59 mL/min/1.73m2 Moderately to severely decreased 30 - 44 mL/min/1.73m2 Severely decreased 15 - 29 mL/min/1.73m2 Kidney Failure < 15 mL/min/1.73m2 *Relative to young adult level Estimated glomerular filtration rate is determined by the 2020 CKD-EPI equation recommended by the National Kidney Foundation (A Unifying Approach to GFR Estimation: Recommendations of the NKF-ASK Task Force on Reassessing the Inclusion of Race in Diagnosing Kidney Disease, JASN 2020). The CKD-EPI equation should not be used for patients with unstable renal function and has not been validated in children and those over 70. Current interpretive data was last reviewed 2021. Blood 06/25/2025 9:07 PM CDT 06/25/2025 9:09 PM CDT us Papito LI LAB BLOOD ORDERA BLES Final Result [facility] ([place]) 1 [facility] [place] [address] * Differential, auto (06/25/2025 9:07 PM CDT) Neutrophil abs 5.17 1.50 - 6.50 K/cumm Imm gran abs 0.02 0.00 - 0.10 K/cumm [facility] ([place]) Lymphocyte abs 1.83 0.80 - 3.30 K/cumm [facility] ([place]) Monocyte abs 0.61 0.20 - 0.80 K/cumm [facility] ([place]) Eosinophil abs 0.34 0.00 - 0.50 K/cumm [facility] ([place]) Basophil abs 0.07 0.00 - 0.10 K/cumm [facility] ([place]) Neutrophil pct 64.3 % [facility] ([place]) Comment: Interpretive Data Percent cell count reference ranges are not reported, since discordance with absolute values may lead to misinterpretation of CBC data. Current Interpretive Data was last revised on 2017. Imm gran pct 0.2 % [facility] ([place]) Comment: Interpretive Data Percent cell count reference ranges are not reported, since discordance with absolute values may lead to misinterpretation of CBC data. Current Interpretive Data was last revised on 2017. Lymphocyte pct 22.8 % [facility] ([place]) Comment: Interpretive Data Percent cell count reference ranges are not reported, since discordance with absolute values may lead to misinterpretation of CBC data. Current Interpretive Data was last revised on 2017. Monocyte pct 7.6 % [facility] ([place]) Comment: Interpretive Data Percent cell count reference ranges are not reported, since discordance with absolute values may lead to misinterpretation of CBC data. Current Interpretive Data was last revised on 2017. Eosinophil pct 4.2 % [facility] ([place]) Comment: Interpretive Data Percent cell count reference ranges are not reported, since discordance with absolute values may lead to misinterpretation of CBC data. Current Interpretive Data was last revised on 2017. Basophil pct 0.9 % [facility] ([place]) Comment: Interpretive Data Percent cell count reference ranges are not reported, since discordance with absolute values may lead to misinterpretation of CBC data. Current Interpretive Data was last revised on 2017. Blood 06/25/2025 9:07 PM CDT 06/25/2025 9:09 PM CDT Papito LI LAB BLOOD ORDERA BLES Final Result [facility] ([place]) 1 [facility] Department [place] [address] * (ABNORMAL) CBC with auto differential (06/25/2025 9:07 PM CDT) WBC 8.04 3.80 - 9.90 K/cumm Hgb 11.3(L) 11.9 - 15.5 g/dL [facility] ([place]) Hct 34.9(L) 35.6 - 45.5 % [facility] ([place]) Plt 268 150 - 400 K/cumm [facility] ([place]) MPV 9.2 9.1 - 12.3 fL [facility] ([place]) RBC 4.13 3.90 - 5.20 M/cumm [facility] ([place]) MCV 84.5 81.3 - 96.4 fL [facility] ([place]) MCH 27.4 27.1 - 33.3 pg [facility] ([place]) MCHC 32.4 32.3 - 35.7 g/dL [facility] ([place]) RDW CV 13.4 11.1 - 14.9 % [facility] ([place]) RDW SD 41.1 35.7 - 48.1 fL [facility] ([place]) NRBC abs 0.00 0.00 - 0.01 K/cumm [facility] ([place]) Blood 06/25/2025 9:07 PM CDT 06/25/2025 9:09 PM CDT Papito LI LAB BLOOD ORDERA BLES Final Result [facility] ([place]) 1 [facility] [place] [address] * Lipase (06/25/2025 9:07 PM CDT) Pathologist [facility] Lipase 23 10 - 99 Units/L Blood 06/25/2025 9:07 PM CDT 06/25/2025 9:09 PM CDT Papito LI LAB BLOOD ORDERA BLES Final Result Performing Organization Address City/[facility]/ZIP Co de Phone Number [facility] ([place]) 1 [facility] [place] [employer] [place] [address] * (ABNORMAL) Comprehensive metabolic panel (06/25/2025 9:07 PM CDT) Sodium 135 135 - 145 mmol/L Potassium, pl 4.0 3.3 - 4.9 mmol/L [facility] ([place]) Chloride 100 97 - 110 mmol/L [facility] ([place]) CO2 24 22 - 32 mmol/L [facility] ([place]) Anion gap 11 2 - 15 mmol/L [facility] ([place]) BUN 13 6 - 25 mg/dL [facility] ([place]) Creatinine 0.77 0.60 - 1.10 mg/dL [facility] ([place]) Glucose 226(H) 70 - 199 mg/dL [facility] ([place]) Comment: Interpretive Data Fasting glucose >/= 126 mg/dl is diagnostic for diabetes. Fasting is defined as no caloric intake for at least 8 hours. Fasting glucose between 100 mg/dl to 125 mg/dl is diagnostic of prediabetes. In a patient with classic symptoms of hyperglycemia or hyperglycemic crisis, a random glucose >/= 200 mg/dl is diagnostic for diabetes. In the absence of unequivocal hyperglycemia, results should be confirmed by repeat testing. The classification and Diagnosis of Diabetes Diabetes Care 2021; 46: S19-S40. Current interpretive data was last revised 2022. Calcium 9.5 8.5 - 10.3 mg/dL [facility] ([place]) Bilirubin, total 0.6 0.1 - 1.2 mg/dL [facility] ([place]) Protein, pl 7.1 6.5 - 8.5 g/dL [facility] ([place]) Albumin 4.0 3.5 - 5.0 g/dL [facility] ([place]) Alk phos 153(H) 40 - 130 Units/L [facility] ([place]) ALT 34 7 - 45 Units/L [facility] ([place]) AST 57(H) 10 - 45 Units/L [facility] ([place]) Blood 06/25/2025 9:07 PM CDT 06/25/2025 9:09 PM CDT Papito LI LAB BLOOD ORDERA BLES Final Result [facility] ([place]) 1 [facility] [place] [address] * Cardiology Document Scan (05/15/2025 1:54 PM CDT) Anatomical Region Laterality Modality Other Wm De La Garza MD CV CARDIAC SERVICES PROCEDU RES Final Result * Cardiology Document Scan (05/14/2025 1:52 PM CDT) Anatomical Region Laterality Modality Other Wm De La Garza MD CV CARDIAC SERVICES PROCEDU RES Final Result from Last 3 Months Insurance MEDICARE [place] MEDICARE IDPA IDPA [facility] MEDICARE [facility] MEDICARE Address: [address] [address] [place] [address] Care Teams Collection Team Lead Relationship Specialty Start Date End Date Brissa Tijerina MD [address] [place] [address] PCP - General Family Medicine 07/13/25
--- OUTSIDE RECORDS SUMMARY | 2025-07-21 16:09 | XMS_ITS | Clinical Summary ---
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
--- OUTSIDE RECORDS SUMMARY | 2025-07-21 16:09 | XMS_ITS | Clinical Summary ---
Author Organization [facility] Address [address] [facility] [address] [place] [address] Care Team Providers Care Wool Washer Name Role Phone Adele Lagos MD Primary Care Provider [phone] Allergies Active Allergy Reactions Criticality Noted Date [...] Other. Active Insulin Disposable Pump (Omnipod 5 [id number] Pods Gen 5) Misc change pod every [...] Sex Assigned at Female 08/12/2024 6:07 PM QUILL CLEANER Legal Sex Female 4:01 AM QUILL CLEANER Gender Identity Female 08/12/2024 6:07 PM QUILL CLEANER Sexual Orientation Not on file Last Filed [...] Screening 2015 Immunochemical Fecal Occult Blood 2015 Respiratory Syncytial Virus (RSV) Immunization (Adult) (1 - Risk 50-74 years 1-dose series) 2020 Pneumococcal Immunization (50+ years) (2 of 2 - PCV) 10/02/2021 10/02/2020 Influenza Immunization (#1) 05/15/202505/15, 06/16/2021, 09/29/2020, Additional history exists SARS-COV-2 Immunization (2024- season) 2025 09/13/2021, 12/14/2020, 11/16/2020 Cervical Cancer Screening ([facility]S) 10/31/2025 Pap Smear 10/31/2025 10/31/2022, 03/15/2021 DTaP/Tdap/Td Immunization Discontinued 05/31/2007 TdaP Immunization Completed [...] MEDICARE C [employer] [place]ID [place] Care Teams Wool Washer Relationship Specialty Start Date End Date Adele Lagos MD [address] [place] [address] PCP - General Family Medicine 07/15/20
--- OUTSIDE RECORDS SUMMARY | 2025-07-21 16:09 | XMS_ITS | Data Portability ---
Author Organization [facility], [address] ([place]) Address [address] 4th [place] [address] Care Team Providers Care Enlisted Advisor Name Role Phone DRAKE MCNEAL Librarian Special Library PAULY VIZCAINO Primary Care Provider PAULY VIZCAINO Referring Provider [phone] DELIA HALL Tube Fitter Assessment Encounter Date Assessment Date Assessment LastModified [...] Total time spent: 32 minutes (Tracked by [employer]) [id number] Not available 05/30/2025 10:44:09 06/07/2025 06/07/2025 Ms. 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, GERD, gastroparesis, [...] Total time spent: 19 minutes (Tracked by [employer]) [id number] Not available 07/04/2025 11:56:04 Plan of Treatment Reminders Order Date Submit Date Provider Last Modified By Organization Details Last Modified Time Details Appointments [facility] Patient 15.EST 2024 01:45P M Kya Pritchard Not available Not available Not available [facility] Patient 15.EST 2024 01:45P M Tiffanie Painting Not available Not available Not available Pulm Function Methacho line.PRO 2024 03:15P M [facility] Not available Not available Not available [facility] Patient 15.EST 2024 01:00P M Dr. Carrol Villagomez Not available Not available Not available [facility] Patient 15.EST 2025 02:30P M Delia Hall Not available Not available Not available New Patient Visit 10.NEW 2025 11:50A M Dr. Shital Mendes Not available Not available Not available [facility] Patient 15.EST 2025 03:00P M Kyaaraseli Wilsoncammie Not available Not available Not available Lab None recorded . Referral nephrolo gist referral 2024 025 [email or web address] Delia Hall PA-C, [address], [address], 05/08/2025 16:30:26 Procedures None recorded . Surgeries None recorded . Imaging None recorded . Medication Orders Aimovig Autoinje ctor 140 mg/mL subcutan eous auto-inj leticia 2024 025 [place], [address] [place] [address], [id number], 07/05/2025 18:17:17 quetiapi ne 25 mg tablet 2024 025 [place], [address] [place] [address], [id number], 07/04/2025 12:06:53 venlafax ine ER 150 mg capsule, extended release 24 hr 2024 025 [place], [address] [place] [address], [id number], 07/04/2025 18:03:39 venlafax ine ER 75 mg capsule, extended release 24 hr 2024 025 [place], [address] [place] [address], [id number], 07/04/2025 18:03:39 quetiapi ne 25 mg tablet 2024 025 [place], [address] [place] [address], [id number], 06/27/2025 18:04:50 fluconaz ole 150 mg tablet 2024 025 [place], [address] [place], [address], 05/30/2025 10:10:32 Patient TargetsNo targets recorded. Patient InstructionsNo instructions recorded. Reason for Referral Tube Fitter Referral for Ac verito kidney injury MALENA after vanco use/insulin dependent diabetic Referring Physician: Valeria Baugh, Family Medicine, Encounter Date: 04/28/2025 Results Created Date Observation Date Name Description Value Unit Range Abnormal Flag Note LastModifiedBy Organization Detail LastModifiedTime 04/09/2004/09/2025 LIPAS E lipase 28 U/L 8 - 57 Not Available [facility] Central Scheduling [address] [place], [address], 04/10/2025 00:14:05 04/09/2004/09/2025 COMPL ETE METAB OLIC PANEL sodium 139 mmol/ L 136 - 145 Not Available [facility] Central Scheduling [address] [place], [address], 04/10/2025 00:13:59 04/09/2004/09/2025 COMPL ETE METAB OLIC PANEL potassium 3.9 mmol/ L 3.5 - 5.1 Not Available [facility] Central Scheduling [address] [place], [address], 04/10/2025 00:13:59 04/09/20 25 04/09/2025 COMPL ETE METAB OLIC PANEL chloride 107 mmol/ L 98 - 107 Not Available [facility] Central Scheduling [address] [place], [address], 04/10/2025 00:13:59 04/09/20 25 04/09/2025 COMPL ETE METAB OLIC PANEL CO2 24 mmol/ L 22 - 28 Not Available [facility] Central Scheduling [address] [place], [address], 04/10/2025 00:13:59 04/09/20 25 04/09/2025 COMPL ETE METAB OLIC PANEL glucose 145 mg/dL 70 - 105 high Not Available [facility] Central Scheduling [address] [place], [address], 04/10/2025 00:13:59 04/09/20 25 04/09/2025 COMPL ETE METAB OLIC PANEL BUN 18 mg/dL 7 - 18 Not Available [facility] Central Scheduling [address] [place], [address], 04/10/2025 00:13:59 04/09/20 25 04/09/2025 COMPL ETE METAB OLIC PANEL creatinine 0.81 mg/dL 0.44 - 1.24 Not Available [facility] Central Scheduling [address] [place], [address], 04/10/2025 00:13:59 04/09/20 25 04/09/2025 COMPL ETE METAB OLIC PANEL total protein 7.3 g/dL 6.0 - 8.3 Not Available [facility] Central Scheduling [address] [place], [address], 04/10/2025 00:13:59 04/09/20 25 04/09/2025 COMPL ETE METAB OLIC PANEL albumin 3.7 g/dL 3.5 - 5.0 Not Available [facility] Central Scheduling [address] [place], [address], 04/10/2025 00:13:59 04/09/20 25 04/09/2025 COMPL ETE METAB OLIC PANEL T bilirubin 1.0 mg/dL 0.2 - 1.0 Not Available [facility] Central Scheduling [address] [place], [address], 04/10/2025 00:13:59 04/09/20 25 04/09/2025 COMPL ETE METAB OLIC PANEL SGPT 27 IU/L 10 - 40 Not Available [facility] Central Scheduling [address] [place], [address], 04/10/2025 00:13:59 04/09/20 25 04/09/2025 COMPL ETE METAB OLIC PANEL alk phos 133 IU/L 32 - 92 high Not Available [facility] Central Scheduling [address] [place], [address], 04/10/2025 00:13:59 04/09/20 25 04/09/2025 COMPL ETE METAB OLIC PANEL SGOT 37 IU/L 10 - 42 Not Available [facility] Central Scheduling [address] [place], [address], 04/10/2025 00:13:59 04/09/20 25 04/09/2025 COMPL ETE METAB OLIC PANEL calcium 9.2 mg/dL 8.4 - 10.2 Not Available [facility] Central Scheduling [address] [place], [address], 04/10/2025 00:13:59 04/09/20 25 04/09/2025 COMPL ETE METAB OLIC PANEL age 54 yr Not Available [facility] Central Scheduling [address] [place], [address], 04/10/2025 00:13:59 04/09/20 25 04/09/2025 COMPL ETE METAB OLIC PANEL eGFR 86 [...] se(CK D) is prese nt. Not Available [facility] Central Scheduling [address] [place], [address], 04/10/2025 00:13:59 04/09/20 25 04/09/2025 CBC-C OMPLE TE WBC 8.4 10^3u L 4.0 - 10.8 Not Available [facility] Central Scheduling [address] [place], [address], 04/10/2025 00:01:59 04/09/2004/09/2025 CBC-C OMPLE TE RBC 4.16 10^6u L 3.80 - 5.20 Not Available [facility] Central Scheduling [address] [place], [address], 04/10/2025 00:01:59 04/09/2004/09/2025 CBC-C OMPLE TE hemoglobin 11.6 g/dL 11.7 - 16.0 low Not Available [facility] Central Scheduling [address] [place], [address], 04/10/2025 00:01:59 04/09/2004/09/2025 CBC-C OMPLE TE hematocrit 33.8 % 35.0 - 47.0 low Not Available [facility] Central Scheduling [address] [place], [address], 04/10/2025 00:01:59 04/09/20 25 04/09/2025 CBC-C OMPLE TE MCV 81 fL 80 - 100 Not Available [facility] Central Scheduling [address] [place], [address], 04/10/2025 00:01:59 04/09/20 25 04/09/2025 CBC-C OMPLE TE MCH 28 pg 28 - 33 Not Available [facility] Central Scheduling [address] [place], [address], 04/10/2025 00:01:59 04/09/20 25 04/09/2025 CBC-C OMPLE TE MCHC 34 g/dL 32 - 36 Not Available [facility] Central Scheduling [address] [place], [address], 04/10/2025 00:01:59 04/09/20 25 04/09/2025 CBC-C OMPLE TE RDW 14.8 % 11.5 - 15.5 Not Available [facility] Central Scheduling [address] [place], [address], 04/10/2025 00:01:59 04/09/20 25 04/09/2025 CBC-C OMPLE TE platelet 282 10^3u L 140 - 440 Not Available [facility] Central Scheduling [address] [place], [address], 04/10/2025 00:01:59 04/09/20 25 04/09/2025 CBC-C OMPLE TE MPV 7.6 fL 7.5 - 11.0 Not Available [facility] Central Scheduling [address] [place], [address], 04/10/2025 00:01:59 04/09/20 25 04/09/2025 CBC-C OMPLE TE %neutrophils 68.8 % 40.0 - 75.0 Not Available [facility] Central Scheduling [address] [place], [address], 04/10/2025 00:01:59 04/09/20 25 04/09/2025 CBC-C OMPLE TE %lymphocytes 19.3 % 15.0 - 45.0 Not Available [facility] Central Scheduling [address] [place], [address], 04/10/2025 00:01:59 04/09/20 25 04/09/2025 CBC-C OMPLE TE %monocytes 8.8 % 2.0 - 12.0 Not Available [facility] Central Scheduling [address] [place], [address], 04/10/2025 00:01:59 04/09/2004/09/2025 CBC-C OMPLE TE %eosinophils 2.2 % 0.0 - 5.0 Not Available [facility] Central Scheduling [address] [place], [address], 04/10/2025 00:01:59 04/09/2004/09/2025 CBC-C OMPLE TE %basophils 0.9 % 0.0 - 2.0 Not Available [facility] Central Scheduling [address] [place], [address], 04/10/2025 00:01:59 04/09/2004/09/2025 CBC-C OMPLE TE neutrophil 5.8 10^3/ uL 1.7 - 7.0 Not Available [facility] Central Scheduling [address] [place], [address], 04/10/2025 00:01:59 04/09/2004/09/2025 CBC-C OMPLE TE lymphocyte 1.6 10^3/ uL 0.9 - 3.7 Not Available [facility] Central Scheduling [address] [place], [address], 04/10/2025 00:01:59 04/09/2004/09/2025 CBC-C OMPLE TE monocyte 0.7 10^3/ uL 0.2 - 0.8 Not Available [facility] Central Scheduling [address] [place], [address], 04/10/2025 00:01:59 04/09/2004/09/2025 CBC-C OMPLE TE eosinophil 0.2 10^3/ uL 0.0 - 0.5 Not Available [facility] Central Scheduling [address] [place], [address], 04/10/2025 00:01:59 04/09/20 25 04/09/2025 CBC-C OMPLE TE basophil 0.1 10^3/ uL 0.0 - 0.2 Not Available [facility] Central Scheduling [address] [place], [address], 04/10/2025 00:01:59 04/09/20 25 04/09/2025 CBC-C OMPLE TE mdw 17.28 0.00 - 20.00 {CD] Not Available [facility] Central Scheduling [address] [place], [address], 04/10/2025 00:01:59 04/09/20 25 04/09/2025 CBC-C OMPLE TE manual diff NOT INDICA MICHELLE Not Available [facility] Central Scheduling [address] [place], [address], 04/10/2025 00:01:59 04/27/20 25 04/27/2025 LIPAS E lipase 25 U/L 8 - 57 Not Available [facility] Central Scheduling [address] [place], [address], 04/27/2025 17:59:19 04/27/20 25 04/27/2025 COMPL ETE METAB OLIC PANEL sodium 142 mmol/ L 136 - 145 Not Available [facility] Central Scheduling [address] [place], [address], 04/27/2025 17:59:14 04/27/2004/27/2025 COMPL ETE METAB OLIC PANEL potassium 4.0 mmol/ L 3.5 - 5.1 Not Available [facility] Central Scheduling [address] [place], [address], 04/27/2025 17:59:14 04/27/2004/27/2025 COMPL ETE METAB OLIC PANEL chloride 105 mmol/ L 98 - 107 Not Available [facility] Central Scheduling [address] [place], [address], 04/27/2025 17:59:14 04/27/20 25 04/27/2025 COMPL ETE METAB OLIC PANEL CO2 27 mmol/ L 22 - 28 Not Available [facility] Central Scheduling [address] [place], [address], 04/27/2025 17:59:14 04/27/20 25 04/27/2025 COMPL ETE METAB OLIC PANEL glucose 104 mg/dL 70 - 105 Not Available [facility] Central Scheduling [address] [place], [address], 04/27/2025 17:59:14 04/27/20 25 04/27/2025 COMPL ETE METAB OLIC PANEL BUN 19 mg/dL 7 - 18 high Not Available [facility] Central Scheduling [address] [place], [address], 04/27/2025 17:59:14 04/27/20 25 04/27/2025 COMPL ETE METAB OLIC PANEL creatinine 1.37 mg/dL 0.44 - 1.24 high Not Available [facility] Central Scheduling [address] [place], [address], 04/27/2025 17:59:14 04/27/20 25 04/27/2025 COMPL ETE METAB OLIC PANEL total protein 7.4 g/dL 6.0 - 8.3 Not Available [facility] Central Scheduling [address] [place], [address], 04/27/2025 17:59:14 04/27/20 25 04/27/2025 COMPL ETE METAB OLIC PANEL albumin 3.8 g/dL 3.5 - 5.0 Not Available [facility] Central Scheduling [address] [place], [address], 04/27/2025 17:59:14 04/27/20 25 04/27/2025 COMPL ETE METAB OLIC PANEL T bilirubin 0.8 mg/dL 0.2 - 1.0 Not Available [facility] Central Scheduling [address] [place], [address], 04/27/2025 17:59:14 04/27/20 25 04/27/2025 COMPL ETE METAB OLIC PANEL SGPT 41 IU/L 10 - 40 high Not Available [facility] Central Scheduling [address] [place], [address], 04/27/2025 17:59:14 04/27/20 25 04/27/2025 COMPL ETE METAB OLIC PANEL alk phos 124 IU/L 32 - 92 high Not Available [facility] Central Scheduling [address] [place], [address], 04/27/2025 17:59:14 04/27/20 25 04/27/2025 COMPL ETE METAB OLIC PANEL SGOT 57 IU/L 10 - 42 high Not Available [facility] Central Scheduling [address] [place], [address], 04/27/2025 17:59:14 04/27/20 25 04/27/2025 COMPL ETE METAB OLIC PANEL calcium 9.1 mg/dL 8.4 - 10.2 Not Available [facility] Central Scheduling [address] [place], [address], 04/27/2025 17:59:14 04/27/20 25 04/27/2025 COMPL ETE METAB OLIC PANEL age 54 yr Not Available [facility] Central Scheduling [address] [place], [address], 04/27/2025 17:59:14 04/27/20 25 04/27/2025 COMPL ETE METAB OLIC PANEL eGFR 46 \BLDo \eGFR INTER PRETI VE TEXT\ BLDx\ This eGFR is calcu lated using 2020 CKD-E PI Creat inine equat ion witho ut race modif ier based on the NKF-A SN task force recom menda tions . In most healt hy peopl e the luzamria l GFR is 90 mL/mi n/1.7 3 [...] se(CK D) is prese nt. Not Available [facility] Central Scheduling [address] [place], [address], 04/27/2025 17:59:14 04/27/20 25 04/27/2025 CBC-C OMPLE TE WBC 6.5 10^3u L 4.0 - 10.8 Not Available [facility] Central Scheduling [address] [place], [address], 04/27/2025 17:41:23 04/27/20 25 04/27/2025 CBC-C OMPLE TE RBC 4.03 10^6u L 3.80 - 5.20 Not Available [facility] Central Scheduling [address] [place], [address], 04/27/2025 17:41:23 04/27/20 25 04/27/2025 CBC-C OMPLE TE hemoglobin 11.1 g/dL 11.7 - 16.0 low Not Available [facility] Central Scheduling [address] [place], [address], 04/27/2025 17:41:23 04/27/20 25 04/27/2025 CBC-C OMPLE TE hematocrit 33.4 % 35.0 - 47.0 low Not Available [facility] Central Scheduling [address] [place], [address], 04/27/2025 17:41:23 04/27/20 25 04/27/2025 CBC-C OMPLE TE MCV 83 fL 80 - 100 Not Available [facility] Central Scheduling [address] [place], [address], 04/27/2025 17:41:23 04/27/20 25 04/27/2025 CBC-C OMPLE TE MCH 28 pg 28 - 33 Not Available [facility] Central Scheduling [address] [place], [address], 04/27/2025 17:41:23 04/27/20 25 04/27/2025 CBC-C OMPLE TE MCHC 33 g/dL 32 - 36 Not Available [facility] Central Scheduling [address] [place], [address], 04/27/2025 17:41:23 04/27/20 25 04/27/2025 CBC-C OMPLE TE RDW 15.8 % 11.5 - 15.5 high Not Available [facility] Central Scheduling [address] [place], [address], 04/27/2025 17:41:23 04/27/20 25 04/27/2025 CBC-C OMPLE TE platelet 296 10^3u L 140 - 440 Not Available [facility] Central Scheduling [address] [place], [address], 04/27/2025 17:41:23 04/27/20 25 04/27/2025 CBC-C OMPLE TE MPV 7.6 fL 7.5 - 11.0 Not Available [facility] Central Scheduling [address] [place], [address], 04/27/2025 17:41:23 04/27/20 25 04/27/2025 CBC-C OMPLE TE %neutrophils 67.7 % 40.0 - 75.0 Not Available [facility] Central Scheduling [address] [place], [address], 04/27/2025 17:41:23 04/27/20 25 04/27/2025 CBC-C OMPLE TE %lymphocytes 21.8 % 15.0 - 45.0 Not Available [facility] Central Scheduling [address] [place], [address], 04/27/2025 17:41:23 04/27/20 25 04/27/2025 CBC-C OMPLE TE %monocytes 7.4 % 2.0 - 12.0 Not Available [facility] Central Scheduling [address] [place], [address], 04/27/2025 17:41:23 04/27/20 25 04/27/2025 CBC-C OMPLE TE %eosinophils 2.6 % 0.0 - 5.0 Not Available [facility] Central Scheduling [address] [place], [address], 04/27/2025 17:41:23 04/27/20 25 04/27/2025 CBC-C OMPLE TE %basophils 0.5 % 0.0 - 2.0 Not Available [facility] Central Scheduling [address] [place], [address], 04/27/2025 17:41:23 04/27/20 25 04/27/2025 CBC-C OMPLE TE neutrophil 4.4 10^3/ uL 1.7 - 7.0 Not Available [facility] Central Scheduling [address] [place], [address], 04/27/2025 17:41:23 04/27/20 25 04/27/2025 CBC-C OMPLE TE lymphocyte 1.4 10^3/ uL 0.9 - 3.7 Not Available [facility] Central Scheduling [address] [place], [address], 04/27/2025 17:41:23 04/27/20 25 04/27/2025 CBC-C OMPLE TE monocyte 0.5 10^3/ uL 0.2 - 0.8 Not Available [facility] Central Scheduling [address] [place], [address], 04/27/2025 17:41:23 04/27/20 25 04/27/2025 CBC-C OMPLE TE eosinophil 0.2 10^3/ uL 0.0 - 0.5 Not Available [facility] Central Scheduling [address] [place], [address], 04/27/2025 17:41:23 04/27/20 25 04/27/2025 CBC-C OMPLE TE basophil 0.0 10^3/ uL 0.0 - 0.2 Not Available [facility] Central Scheduling [address] [place], [address], 04/27/2025 17:41:23 04/27/20 25 04/27/2025 CBC-C OMPLE TE mdw 17.14 0.00 - 20.00 {CD] Not Available [facility] Central Scheduling [address] [place], [address], 04/27/2025 17:41:23 04/27/20 25 04/27/2025 CBC-C OMPLE TE manual diff NOT INDICA MICHELLE Not Available [facility] Central Scheduling [address] [place], [address], 04/27/2025 17:41:23 04/27/20 25 04/27/2025 LACTI C ACID lactic acid 0.81 mmol/ L 0.50 - 2.20 Not Available [facility] Central Scheduling [address] [place], [address], 04/27/2025 17:40:25 04/27/20 25 04/29/2025 CULTU RE/UR INE results _CULT URE URINE _ Not Available [facility] Central Scheduling [address] [place], [address], 04/29/2025 08:57:02 04/27/2004/29/2025 CULTU RE/UR INE final report CLEAN CATCH SPECIM EN __>10 0,000 _cfu/ mL_>3 _ORGA NISMS ___ 04/29.0 756.A RM. _GRAM _POSI TIVE_ AND_N EGATI VE_FL ORA__ ___ 04/29.0 756.A RM. Not Available [facility] Central Scheduling [address] [place], [address], 04/29/2025 08:57:02 04/27/20 25 04/29/2025 CULTU RE/UR INE results 04/29.0 756.A RM.CO MPLET E CLEAN CATCH SPECI MEN Not Available [facility] Central Scheduling [address] [place], [address], 04/29/2025 08:57:02 04/27/2004/27/2025 URINA LYSIS color YELLOW normal : yellow Not Available [facility] Central Scheduling [address] [place], [address], 04/27/2025 17:51:17 04/27/2004/27/2025 URINA LYSIS character HAZY normal : clear Not Available [facility] Central Scheduling [address] [place], [address], 04/27/2025 17:51:17 04/27/2004/27/2025 URINA LYSIS spec. grav 1.015 normal : 1.003- 1.029 Not Available [facility] Central Scheduling [address] [place], [address], 04/27/2025 17:51:17 04/27/2004/27/2025 URINA LYSIS pH 6.0 normal : 4.5 - 7.8 Not Available [facility] Central Scheduling [address] [place], [address], 04/27/2025 17:51:17 04/27/2004/27/2025 URINA LYSIS leukocytes 2+ normal : negati ve Not Available [facility] Central Scheduling [address] [place], [address], 04/27/2025 17:51:17 04/27/2004/27/2025 URINA LYSIS nitrite NEGATI VE normal : negati ve Not Available [facility] Central Scheduling [address] [place], [address], 04/27/2025 17:51:17 04/27/2004/27/2025 URINA LYSIS protein 1+ normal : negati ve Not Available [facility] Central Scheduling [address] [place], [address], 04/27/2025 17:51:17 04/27/20 25 04/27/2025 URINA LYSIS glucose NEGATI VE normal : negati ve Not Available [facility] Central Scheduling [address] [place], [address], 04/27/2025 17:51:17 04/27/20 25 04/27/2025 URINA LYSIS ketones NEGATI VE normal : negati ve Not Available [facility] Central Scheduling [address] [place], [address], 04/27/2025 17:51:17 04/27/20 25 04/27/2025 URINA LYSIS urobilinogen 0.2 normal : 0.2 - 1.0 Not Available [facility] Central Scheduling [address] [place], [address], 04/27/2025 17:51:17 04/27/20 25 04/27/2025 URINA LYSIS bilirubin NEGATI VE normal : negati ve Not Available [facility] Central Scheduling [address] [place], [address], 04/27/2025 17:51:17 04/27/20 25 04/27/2025 URINA LYSIS blood TRACE- INTACT normal : negati ve MICRO SCOPI C Not Available [facility] Central Scheduling [address] [place], [address], 04/27/2025 17:51:17 04/27/20 25 04/27/2025 URINA LYSIS WBC/hpf 10-20 normal : 0-5 hpf Not Available [facility] Central Scheduling [address] [place], [address], 04/27/2025 17:51:17 04/27/20 25 04/27/2025 URINA LYSIS RBC/hpf 0-2 normal : 0-3 hpf Not Available [facility] Central Scheduling [address] [place], [address], 04/27/2025 17:51:17 04/27/20 25 04/27/2025 URINA LYSIS epith/hpf >50 normal : 0-5 hpf Not Available [facility] Central Scheduling [address] [place], [address], 04/27/2025 17:51:17 04/27/20 25 04/27/2025 URINA LYSIS cast/lpf SEE BELOW normal : 0-4 lpf Not Available [facility] Central Scheduling [address] [place], [address], 04/27/2025 17:51:17 04/27/20 25 04/27/2025 URINA LYSIS hyaline 0-2 { GRANU LAR { LEUKO CYTE Not Available [facility] Central Scheduling [address] [place], [address], 04/27/2025 17:51:17 04/27/20 25 04/27/2025 URINA LYSIS crystals SEE BELOW normal : negati ve { TRIPL E PHOS Not Available [facility] Central Scheduling [address] [place], [address], 04/27/2025 17:51:17 04/27/20 25 04/27/2025 URINA LYSIS amorphous 2+ Not Available [facility] Central Scheduling [address] [place], [address], 04/27/2025 17:51:17 04/27/2004/27/2025 URINA LYSIS bacteria 2+ normal : negati ve abnormal Not Available [facility] Central Scheduling [address] [place], [address], 04/27/2025 17:51:17 04/30/20 25 04/30/2025 LIPAS E lipase 19 U/L 8 - 57 Not Available [facility] Central Scheduling [address] [place], [address], 04/30/2025 10:28:42 04/30/20 25 04/30/2025 COMPL ETE METAB OLIC PANEL sodium 141 mmol/ L 136 - 145 Not Available [facility] Central Scheduling [address] [place], [address], 04/30/2025 10:28:37 04/30/20 25 04/30/2025 COMPL ETE METAB OLIC PANEL potassium 3.9 mmol/ L 3.5 - 5.1 Not Available [facility] Central Scheduling [address] [place], [address], 04/30/2025 10:28:37 04/30/20 25 04/30/2025 COMPL ETE METAB OLIC PANEL chloride 107 mmol/ L 98 - 107 Not Available [facility] [address] [place], [address], 04/30/2025 10:28:37 04/30/20 25 04/30/2025 COMPL ETE METAB OLIC PANEL CO2 27 mmol/ L 22 - 28 Not Available [facility] [address] [place], [address], 04/30/2025 10:28:37 04/30/20 25 04/30/2025 COMPL ETE METAB OLIC PANEL glucose 120 mg/dL 70 - 105 high Not Available [facility] [address] [place], [address], 04/30/2025 10:28:37 04/30/20 25 04/30/2025 COMPL ETE METAB OLIC PANEL BUN 15 mg/dL 7 - 18 Not Available [facility] [address] [place], [address], 04/30/2025 10:28:37 04/30/20 25 04/30/2025 COMPL ETE METAB OLIC PANEL creatinine 1.30 mg/dL 0.44 - 1.24 high Not Available [facility] [address] [place], [address], 04/30/2025 10:28:37 04/30/20 25 04/30/2025 COMPL ETE METAB OLIC PANEL total protein 7.1 g/dL 6.0 - 8.3 Not Available [facility] [address] [place], [address], 04/30/2025 10:28:37 04/30/20 25 04/30/2025 COMPL ETE METAB OLIC PANEL albumin 3.7 g/dL 3.5 - 5.0 Not Available [facility] [address] [place], [address], 04/30/2025 10:28:37 04/30/20 25 04/30/2025 COMPL ETE METAB OLIC PANEL T bilirubin 0.7 mg/dL 0.2 - 1.0 Not Available [facility] [address] [place], [address], 04/30/2025 10:28:37 04/30/20 25 04/30/2025 COMPL ETE METAB OLIC PANEL SGPT 36 IU/L 10 - 40 Not Available [facility] [address] [place], [address], 04/30/2025 10:28:37 04/30/20 25 04/30/2025 COMPL ETE METAB OLIC PANEL alk phos 127 IU/L 32 - 92 high Not Available [facility] [address] [place], [address], 04/30/2025 10:28:37 04/30/20 25 04/30/2025 COMPL ETE METAB OLIC PANEL SGOT 46 IU/L 10 - 42 high Not Available [facility] [address] [place], [address], 04/30/2025 10:28:37 04/30/20 25 04/30/2025 COMPL ETE METAB OLIC PANEL calcium 9.1 mg/dL 8.4 - 10.2 Not Available [facility] [address] [place], [address], 04/30/2025 10:28:37 04/30/20 25 04/30/2025 COMPL ETE METAB OLIC PANEL age 54 yr Not Available [facility] [address] [place], [address], 04/30/2025 10:28:37 04/30/20 25 04/30/2025 COMPL ETE [...] se(CK D) is prese nt. Not Available [facility] [address] [place], [address], 04/30/2025 10:28:37 04/30/20 25 04/30/2025 CBC-C OMPLE TE WBC 5.4 10^3u L 4.0 - 10.8 Not Available [facility] [address] [place], [address], 04/30/2025 10:13:24 04/30/20 25 04/30/2025 CBC-C OMPLE TE RBC 3.84 10^6u L 3.80 - 5.20 Not Available [facility] [address] [place], [address], 04/30/2025 10:13:24 04/30/20 25 04/30/2025 CBC-C OMPLE TE hemoglobin 10.7 g/dL 11.7 - 16.0 low Not Available [facility] [address] [place], [address], 04/30/2025 10:13:24 04/30/20 25 04/30/2025 CBC-C OMPLE TE hematocrit 31.2 % 35.0 - 47.0 low Not Available [facility] [address] [place], [address], 04/30/2025 10:13:24 04/30/20 25 04/30/2025 CBC-C OMPLE TE MCV 81 fL 80 - 100 Not Available [facility] [address] [place], [address], 04/30/2025 10:13:24 04/30/20 25 04/30/2025 CBC-C OMPLE TE MCH 28 pg 28 - 33 Not Available [facility] [address] [place], [address], 04/30/2025 10:13:24 04/30/20 25 04/30/2025 CBC-C OMPLE TE MCHC 34 g/dL 32 - 36 Not Available [facility] [address] [place], [address], 04/30/2025 10:13:24 04/30/20 25 04/30/2025 CBC-C OMPLE TE RDW 15.8 % 11.5 - 15.5 high Not Available [facility] [address] [place], [address], 04/30/2025 10:13:24 04/30/20 25 04/30/2025 CBC-C OMPLE TE platelet 262 10^3u L 140 - 440 Not Available [facility] [address] [place], [address], 04/30/2025 10:13:24 04/30/20 25 04/30/2025 CBC-C OMPLE TE MPV 7.7 fL 7.5 - 11.0 Not Available [facility] [address] [place], [address], 04/30/2025 10:13:24 04/30/20 25 04/30/2025 CBC-C OMPLE TE %neutrophils 59.7 % 40.0 - 75.0 Not Available [facility] [address] [place], [address], 04/30/2025 10:13:24 04/30/20 25 04/30/2025 CBC-C OMPLE TE %lymphocytes 25.1 % 15.0 - 45.0 Not Available [facility] [address] [place], [address], 04/30/2025 10:13:24 04/30/20 25 04/30/2025 CBC-C OMPLE TE %monocytes 9.7 % 2.0 - 12.0 Not Available [facility] [address] [place], [address], 04/30/2025 10:13:24 04/30/20 25 04/30/2025 CBC-C OMPLE TE %eosinophils 4.0 % 0.0 - 5.0 Not Available [facility] [address] [place], [address], 04/30/2025 10:13:24 04/30/20 25 04/30/2025 CBC-C OMPLE TE %basophils 1.5 % 0.0 - 2.0 Not Available [facility] [address] [place], [address], 04/30/2025 10:13:24 04/30/20 25 04/30/2025 CBC-C OMPLE TE neutrophil 3.2 10^3/ uL 1.7 - 7.0 Not Available [facility] [address] [place], [address], 04/30/2025 10:13:24 04/30/20 25 04/30/2025 CBC-C OMPLE TE lymphocyte 1.4 10^3/ uL 0.9 - 3.7 Not Available [facility] [address] [place], [address], 04/30/2025 10:13:24 04/30/20 25 04/30/2025 CBC-C OMPLE TE monocyte 0.5 10^3/ uL 0.2 - 0.8 Not Available [facility] [address] [place], [address], 04/30/2025 10:13:24 04/30/20 25 04/30/2025 CBC-C OMPLE TE eosinophil 0.2 10^3/ uL 0.0 - 0.5 Not Available [facility] [address] [place], [address], 04/30/2025 10:13:24 04/30/20 25 04/30/2025 CBC-C OMPLE TE basophil 0.1 10^3/ uL 0.0 - 0.2 Not Available [facility] [address] [place], [address], 04/30/2025 10:13:24 04/30/20 25 04/30/2025 CBC-C OMPLE TE mdw 17.35 0.00 - 20.00 {CD] Not Available [facility] [address] [place], [address], 04/30/2025 10:13:24 04/30/20 25 04/30/2025 CBC-C OMPLE TE manual diff NOT INDICA MICHELLE Not Available [facility] [address] [place], [address], 04/30/2025 10:13:24 04/30/20 25 04/30/2025 LACTI C ACID lactic acid 1.22 mmol/ L 0.50 - 2.20 Not Available [facility] [address] [place], [address], 04/30/2025 10:07:31 05/07/20 25 05/07/2025 EGFR eGFR [...] prese nt. Not Available Sc Only - [facility] [address] [place] [address], [address], 05/07/2025 19:09:14 05/07/20 25 05/07/2025 LPSE lipase,serum 33 u/L 16-77 Not Dalila ilable Sc Only - [facility] [address] [place] [address], [address], 05/07/2025 19:09:12 05/07/20 25 05/07/2025 LDH LD 187 u/L 81-234 Not Available Sc Only - [facility] [address] [place] [address], [address], 05/07/2025 19:09:10 05/07/20 25 05/07/2025 CMP sodium 142 mmol/ L 135-14 8 Not Available Sc Only - [facility] [address] [place] [address], [address], 05/07/2025 19:09:09 05/07/20 25 05/07/2025 CMP potassium 4.2 mmol/ L 3.5-5. 3 Not Available Sc Only - [facility] [address] [place] [address], [address], 05/07/2025 19:09:09 05/07/20 25 05/07/2025 CMP chloride 107 mmol/ L 96-112 Not Available Co Only - [facility] [address], [address], 05/07/2025 19:09:09 05/07/20 25 05/07/2025 CMP CO2 30 mmol/ L 23-33 Not Available Co Only - [facility] [address], [address], 05/07/2025 19:09:09 05/07/20 25 05/07/2025 CMP BUN 13 mg/dL 7-18 Not Available Co Only - [facility] [address] [place] [address], [address], 05/07/2025 19:09:09 05/07/20 25 05/07/2025 CMP creatinine 1.16 mg/dL 0.55-1 .02 high Not Available Co Only - [facility] [address] [place] [address], [address], 05/07/2025 19:09:09 05/07/20 25 05/07/2025 CMP glucose 101 mg/dL 65-99 high Not Availabl e Co Only - [facility] [address] [place] [address], [address], 05/07/2025 19:09:09 05/07/20 25 05/07/2025 CMP calcium 9.0 mg/dL 8.5-10 .1 Not Available Co Only - [facility] [address] [place] [address], [address], 05/07/2025 19:09:09 05/07/20 25 05/07/2025 CMP total protein 7.0 g/dL 6.4-8. 2 Not Available Co Only - [facility] [address] [place] [address], [address], 05/07/2025 19:09:09 05/07/20 25 05/07/2025 CMP albumin 3.1 g/dL 3.4-5. 0 low Not Available Sc Only - [facility] [address] [place] [address], [address], 05/07/2025 19:09:09 05/07/20 25 05/07/2025 CMP bilirubin (total) 0.6 mg/dL 0.2-1. 0 Not Available Co Only - [facility] [address] [place] [address], [address], 05/07/2025 19:09:09 05/07/20 25 05/07/2025 CMP AST 35 u/L 15-37 Not Available Co Only - [facility] [address] [place] [address], [address], 05/07/2025 19:09:09 05/07/20 25 05/07/2025 CMP alk phos 159 u/L 46-116 high Not Availab le Co Only - [facility] [address] [place] [address], [address], 05/07/2025 19:09:09 05/07/20 25 05/07/2025 CMP ALT 38 u/L 14-59 Not Available Co Only - [facility] [address] [place] [address], [address], 05/07/2025 19:09:09 05/07/20 25 05/07/2025 CMP anion gap 5 mmol/ L 7-16 low Not Available Co Only - [facility] [address] [place] [address], [address], 05/07/2025 19:09:09 05/07/20 25 05/07/2025 DBIL bilirubin (direct) 0.11 mg/dL 0.00-0 .20 Not Available Co Only - [facility] [address] [place] [address], [address], 05/07/2025 19:09:08 05/07/20 25 05/07/2025 CBCW/ DIFF WBC 5.83 x10 3.98-1 0.04 Not Available Co Only - [facility] [address] [place] [address], [address], 05/07/2025 19:09:04 05/07/20 25 05/07/2025 CBCW/ DIFF RBC 3.77 x10 3.93-5 .22 low Not Available Sc Only - [facility] [address] [place] [address], [address], 05/07/2025 19:09:04 05/07/20 25 05/07/2025 CBCW/ DIFF hemoglobin 10.3 g/dL 11.2-1 5.7 low Not Available Sc Only - [facility] [address] [place] [address], [address], 05/07/2025 19:09:04 05/07/20 25 05/07/2025 CBCW/ DIFF hematocrit 32.2 % 34.1-4 4.9 low Not Available Sc Only - [facility] [address] [place] [address], [address], 05/07/2025 19:09:04 05/07/20 25 05/07/2025 CBCW/ DIFF MCV 85.4 fL 79.4-9 4.8 Not Available Sc Only - [facility] [address] [place] [address], [address], 05/07/2025 19:09:04 05/07/20 25 05/07/2025 CBCW/ DIFF MCH 27.3 pg 25.6-3 2.2 Not Available Sc Only - [facility] [address] [place] [address], [address], 05/07/2025 19:09:04 05/07/20 25 05/07/2025 CBCW/ DIFF MCHC 32.0 g/dL 32.2-3 5.5 low Not Available Sc Only - [facility] [address] [place] [address], [address], 05/07/2025 19:09:04 05/07/20 25 05/07/2025 CBCW/ DIFF rdwcv 13.8 % 11.7-1 4.4 Not Available Sc Only - [facility] [address] [place] [address], [address], 05/07/2025 19:09:04 05/07/20 25 05/07/2025 CBCW/ DIFF rdwsd 43.1 fL 36.4-4 6.3 Not Available Sc Only - [facility] [address] [place] [address], [address], 05/07/2025 19:09:04 05/07/20 25 05/07/2025 CBCW/ DIFF platelets 191 x10 182-36 9 Not Available Sc Only - [facility] [address] [place] [address], [address], 05/07/2025 19:09:04 05/07/20 25 05/07/2025 CBCW/ DIFF MPV 10.0 fL 9.4-12 .3 Not Available Sc Only - [facility] [address] [place] [address], [address], 05/07/2025 19:09:04 05/07/20 25 05/07/2025 AUTOD IFF neutrophils 57.2 % 34.0-7 1.1 Not Available Sc Only - [facility] [address] [place] [address], [address], 05/07/2025 19:09:03 05/07/20 25 05/07/2025 AUTOD IFF lymphocytes 25.9 % 19.3-5 1.7 Not Available Sc Only - [facility] [address] [place] [address], [address], 05/07/2025 19:09:03 05/07/20 25 05/07/2025 AUTOD IFF monocytes 11.8 % 4.7-12 .5 Not Available Sc Only - [facility] [address] [place] [address], [address], 05/07/2025 19:09:03 05/07/20 25 05/07/2025 AUTOD IFF eosinophils 3.8 % 0.7-5. 8 Not Available Sc Only - [facility] [address] [place] [address], [address], 05/07/2025 19:09:03 05/07/20 25 05/07/2025 AUTOD IFF basophils 1.0 % 0.1-1. 2 Not Available Sc Only - [address], [address], 05/07/2025 19:09:03 05/07/20 25 05/07/2025 AUTOD IFF imm auto 0.3 % 0.0-1. 5 Not Available Sc Only - [address], [address], 05/07/2025 19:09:03 05/07/20 25 05/07/2025 AUTOD IFF NRBC auto 0.0 /100W BC 0.0-0. 2 Not Available Sc Only - [address], [address], 05/07/2025 19:09:03 05/07/20 25 05/07/2025 AUTOD IFF absolute neutrophils 3.33 x10 1.56-6 .13 Not Available Sc Only - [address], [address], 05/07/2025 19:09:03 05/07/20 25 05/07/2025 AUTOD IFF absolute lymphocytes 1.51 x10 1.18-3 .74 Not Available Sc Only - [address], [address], 05/07/2025 19:09:03 05/07/20 25 05/07/2025 AUTOD IFF absolute monocytes 0.69 x10 0.24-0 .36 high Not Available Sc Only - [address], [address], 05/07/2025 19:09:03 05/07/20 25 05/07/2025 AUTOD IFF absolute eosinophils 0.22 x10 0.04-0 .36 Not Available Sc Only - [address], [address], 05/07/2025 19:09:03 05/07/20 25 05/07/2025 AUTOD IFF absolute basophils 0.06 x10 0.01-0 .08 Not Available Co Only - [facility] [address] [place] [address], [address], 05/07/2025 19:09:03 05/07/20 25 05/07/2025 AUTOD IFF imm absolute 0.02 x10 0.00-0 .15 Not Available Co Only - [facility] [address] [place] [address], [address], 05/07/2025 19:09:03 05/07/20 25 05/07/2025 AUTOD IFF NRBC absolute 0.00 x10 0.00-0 .01 Not Available Co Only - [facility] [address] [place] [address], [address], 05/07/2025 19:09:03 05/07/20 25 05/09/2025 C URINE urine culture (new) abnormal Print Date/ Time: 2024 07:42 CDT Patie nt: JANINA WHITE P Micro biolo gy - Uroge nital Legen d: c=Cor recte d, F=Res ult Comme nt, S=Idalia cepti ble, I=Int ermed iate, R=Res istan t, N/A=N ot Appli cable PROCE DURE: Urine Cultu re [] ACCES KHALIDA: [phone] SOURC E: Urine BODY SITE: COLLE CTED DATE/ TIME: 2024 17:03 CDT RECEI ELVA DATE/ TIME: 2024 17:22 CDT START DATE/ TIME: 2024 17:22 CDT FREE TEXT SOURC E: FI NAL REPOR TS Final Repor t [] Verif ied Date/ Time: 2024 07:42 CDT 40,00 0 cfu/m l Mixed presu mptiv e and Prote us speci es [place] ELIMI NARY REPOR TS Preli minar y Repor t [] Verif ied Date/ Time: 2024 08:17 CDT 40,00 0 cfu/m l Mixed presu mptiv e and Prote us speci es Not Available Co Only - [address], [address], 05/09/2025 08:43:01 05/07/20 25 05/07/2025 UACS color Pauline Not Available Co Only - [address], [address], 05/07/2025 19:09:16 05/07/20 25 05/07/2025 UACS appearance Clear Not Avail able Co Only - [address], [address], 05/07/2025 19:09:16 05/07/20 25 05/07/2025 UACS specific gravity 1.016 1.003- 1.035 Not Available [facility] - [address], [address], 05/07/2025 19:09:16 05/07/20 25 05/07/2025 UACS pH urine 6.0 5.0-8. 0 Not Available [facility] - [address], [address], 05/07/2025 19:09:16 05/07/20 25 05/07/2025 UACS protein 1+ abnormal Not Availa ble Co Only - [address], [address], 05/07/2025 19:09:16 05/07/20 25 05/07/2025 UACS urine glucose Negati ve Not Available Co Only [address], [address], 05/07/2025 19:09:16 05/07/20 25 05/07/2025 UACS ketones Negati ve Not Available Co Only - [address], [address], 05/07/2025 19:09:16 05/07/20 25 05/07/2025 UACS urine bilirubin Negati ve Not Available [facility] [address] [place] [address], [address], 05/07/2025 19:09:16 05/07/20 25 05/07/2025 UACS urine HGB 1+ abnormal Not Avai lable [facility] [address] [place] [address], [address], 05/07/2025 19:09:16 05/07/20 25 05/07/2025 UACS nitrite Positi ve abnormal Not Available [facility] [address] [place] [address], [address], 05/07/2025 19:09:16 05/07/20 25 05/07/2025 UACS leukocyte esterase 1+ abnormal Not Available Co On y [facility] [address] [place] [address], [address], 05/07/2025 19:09:16 05/07/20 25 05/07/2025 UACS urobilinogen >=4.0 abnormal Refer ence Range : <=1 Not Available [address], [address], 05/07/2025 19:09:16 05/07/20 25 05/07/2025 UACS urine WBCs 26-50 abnormal Refer ence Range : <=5 Not Available [facility] [address] [place] [address], [address], 05/07/2025 19:09:16 05/07/20 25 05/07/2025 UACS urine RBCs 3-5 abnormal Refer ence Range : <=2 Not Available [facility] [address] [place] [address], [address], 05/07/2025 19:09:16 05/07/20 25 05/07/2025 UACS squamous epithelial cells 3+ Refer ence Range : <=3+ Not Available [facility] [address] [place] [address], [address], 05/07/2025 19:09:16 05/07/2005/07/2025 UACS bacteria Trace abnormal Refer ence Range : <=Tra ce, Non-C ath Not Available [facility] [address] [place] [address], [address], 05/07/2025 19:09:16 05/07/2005/07/2025 UACS transitional epithelial cells Few Refer ence Range : <=2+ Not Available [facility] [address] [place] [address], [address], 05/07/2025 19:09:16 05/07/2005/07/2025 UACS hyaline casts 1 /lpf 0-2 Not Available Co Onl y - [facility] [address] [place] [address], [address], 05/07/2025 19:09:16 05/07/2005/07/2025 UACS UA mucous Presen t Not Available [facility] [address] [place] [address], [address], 05/07/2025 19:09:16 05/07/2005/07/2025 UACS urine ascorbic acid Negati ve Ascor bic acid can inter fere with the detec tion of blood , gluco se, and nitri te. Not Available [facility] [address] [place] [address], [address], 05/07/2025 19:09:16 05/07/20 25 05/08/2025 C URINE urine culture (new) abnormal Print Date/ Time: 2024 08:17 CDT Patie nt: JANINA WHITE P Micro biolo gy - Uroge nital Legen d: c=Cor recte d, F=Res ult Comme nt, S=Idalia cepti ble, I=Int ermed iate, R=Res istan t, N/A=N ot Appli cable PROCE DURE: Urine Cultu re [] ACCES KHALIDA: 25-23 [id number] SOURC E: Urine BODY SITE: COLLE CTED DATE/ TIME: 2024 17:03 CDT RECEI ELVA DATE/ TIME: 2024 17:22 CDT START DATE/ TIME: 2024 17:22 CDT FREE TEXT SOURC E: [place] ELIMI NARY REPOR TS Preli minar y Repor t [] Verif ied Date/ Time: 2024 08:17 CDT 40,00 0 cfu/m l Mixed presu mptiv e and Prote us speci es Not Available [facility] [address] [place] [address], [address], 05/08/2025 09:17:23 05/18/20 25 05/18/2025 LIPAS E lipase 33 U/L 8 - 57 Not Available [facility] [address] [place], [address], 05/18/2025 06:33:26 05/18/20 25 05/18/2025 COMPL ETE METAB OLIC PANEL sodium 142 mmol/ L 136 - 145 Not Available [facility] [address] [place], [address], 05/18/2025 06:33:22 05/18/20 25 05/18/2025 COMPL ETE METAB OLIC PANEL potassium 3.6 mmol/ L 3.5 - 5.1 Not Available [facility] [address] [place], [address], 05/18/2025 06:33:22 05/18/20 25 05/18/2025 COMPL ETE METAB OLIC PANEL chloride 111 mmol/ L 98 - 107 high Not Available [facility] [address] [place], [address], 05/18/2025 06:33:22 05/18/20 25 05/18/2025 COMPL ETE METAB OLIC PANEL CO2 24 mmol/ L 22 - 28 Not Available Co Only - [facility] [address] [place], [address], 05/18/2025 06:33:22 05/18/20 25 05/18/2025 COMPL ETE METAB OLIC PANEL glucose 132 mg/dL 70 - 105 high Not Available Co Only - [facility] [address] [place], [address], 05/18/2025 06:33:22 05/18/20 25 05/18/2025 COMPL ETE METAB OLIC PANEL BUN 16 mg/dL 7 - 18 Not Available Co Only - [facility] [address] [place], [address], 05/18/2025 06:33:22 05/18/20 25 05/18/2025 COMPL ETE METAB OLIC PANEL creatinine 0.82 mg/dL 0.44 - 1.24 Not Available [facility] [address] [place], [address], 05/18/2025 06:33:22 05/18/20 25 05/18/2025 COMPL ETE METAB OLIC PANEL total protein 6.4 g/dL 6.0 - 8.3 Not Available [facility] [address] [place], [address], 05/18/2025 06:33:22 05/18/20 25 05/18/2025 COMPL ETE METAB OLIC PANEL albumin 3.4 g/dL 3.5 - 5.0 low Not Available [facility] [address] [place], [address], 05/18/2025 06:33:22 05/18/20 25 05/18/2025 COMPL ETE METAB OLIC PANEL T bilirubin 0.5 mg/dL 0.2 - 1.0 Not Available Co Only - [facility] [address] [place], [address], 05/18/2025 06:33:22 05/18/20 25 05/18/2025 COMPL ETE METAB OLIC PANEL SGPT 20 IU/L 10 - 40 Not Available Co Only - [facility] [address] [place], [address], 05/18/2025 06:33:22 05/18/20 25 05/18/2025 COMPL ETE METAB OLIC PANEL alk phos 127 IU/L 32 - 92 high Not Available Co Only - [facility] [address] [place], [address], 05/18/2025 06:33:22 05/18/20 25 05/18/2025 COMPL ETE METAB OLIC PANEL SGOT 23 IU/L 10 - 42 Not Available Co Only - [facility] [address] [place], [address], 05/18/2025 06:33:22 05/18/20 25 05/18/2025 COMPL ETE METAB OLIC PANEL calcium 9.0 mg/dL 8.4 - 10.2 Not Available Co Only - [facility] [address] [place], [address], 05/18/2025 06:33:22 05/18/2005/18/2025 COMPL ETE METAB OLIC PANEL age 54 yr Not Available Co Only - [facility] [address] [place], [address], 05/18/2025 06:33:22 05/18/2005/18/2025 COMPL ETE METAB OLIC [...] prese nt. Not Available Sc Only - [facility] [address] [place], [address], 05/18/2025 06:33:22 05/18/20 25 05/18/2025 CBC-C OMPLE TE WBC 7.0 10^3u L 4.0 - 10.8 Not Available Sc Only - [facility] [address] [place], [address], 05/18/2025 06:15:17 05/18/20 25 05/18/2025 CBC-C OMPLE TE RBC 3.67 10^6u L 3.80 - 5.20 low Not Available Sc Only - [facility] [address] [place], [address], 05/18/2025 06:15:17 05/18/20 25 05/18/2025 CBC-C OMPLE TE hemoglobin 10.2 g/dL 11.7 - 16.0 low Not Available Sc Only - [facility] [address] [place], [address], 05/18/2025 06:15:17 05/18/20 25 05/18/2025 CBC-C OMPLE TE hematocrit 30.4 % 35.0 - 47.0 low Not Available Sc Only - [facility] [address] [place], [address], 05/18/2025 06:15:17 05/18/20 25 05/18/2025 CBC-C OMPLE TE MCV 83 fL 80 - 100 Not Available Sc Only - [facility] [address] [place], [address], 05/18/2025 06:15:17 05/18/20 25 05/18/2025 CBC-C OMPLE TE MCH 28 pg 28 - 33 Not Available Sc Only - [facility] [address] [place], [address], 05/18/2025 06:15:17 05/18/20 25 05/18/2025 CBC-C OMPLE TE MCHC 34 g/dL 32 - 36 Not Available Co Only - [facility] [address] [place], [address], 05/18/2025 06:15:17 05/18/20 25 05/18/2025 CBC-C OMPLE TE RDW 15.0 % 11.5 - 15.5 Not Available Co Only - [facility] [address] [place], [address], 05/18/2025 06:15:17 05/18/2005/18/2025 CBC-C OMPLE TE platelet 204 10^3u L 140 - 440 Not Available Co Only - [facility] [address] [place], [address], 05/18/2025 06:15:17 05/18/2005/18/2025 CBC-C OMPLE TE MPV 7.4 fL 7.5 - 11.0 low Not Available Co Only - [facility] [address] [place], [address], 05/18/2025 06:15:17 05/18/2005/18/2025 CBC-C OMPLE TE %neutrophils 53.2 % 40.0 - 75.0 Not Available Co Only - [facility] [address] [place], [address], 05/18/2025 06:15:17 05/18/2005/18/2025 CBC-C OMPLE TE %lymphocytes 31.5 % 15.0 - 45.0 Not Available Co Only - [facility] [address] [place], [address], 05/18/2025 06:15:17 05/18/2005/18/2025 CBC-C OMPLE TE %monocytes 11.0 % 2.0 - 12.0 Not Available Co Only - [facility] [address] [place], [address], 05/18/2025 06:15:17 05/18/2005/18/2025 CBC-C OMPLE TE %eosinophils 2.9 % 0.0 - 5.0 Not Available Co Only - [facility] [address] [place], [address], 05/18/2025 06:15:17 05/18/2005/18/2025 CBC-C OMPLE TE %basophils 1.4 % 0.0 - 2.0 Not Available Co Only - [facility] [address] [place], [address], 05/18/2025 06:15:17 05/18/2005/18/2025 CBC-C OMPLE TE neutrophil 3.8 10^3/ uL 1.7 - 7.0 Not Available Co Only - [facility] [address] [place], [address], 05/18/2025 06:15:17 05/18/2005/18/2025 CBC-C OMPLE TE lymphocyte 2.2 10^3/ uL 0.9 - 3.7 Not Available Co Only - [facility] [address] [place], [address], 05/18/2025 06:15:17 05/18/2005/18/2025 CBC-C OMPLE TE monocyte 0.8 10^3/ uL 0.2 - 0.8 Not Available Co Only - [facility] [address] [place], [address], 05/18/2025 06:15:17 05/18/2005/18/2025 CBC-C OMPLE TE eosinophil 0.2 10^3/ uL 0.0 - 0.5 Not Available Co Only - [facility] [address] [place], [address], 05/18/2025 06:15:17 05/18/2005/18/2025 CBC-C OMPLE TE basophil 0.1 10^3/ uL 0.0 - 0.2 Not Available Co Only - [facility] [address] [place], [address], 05/18/2025 06:15:17 05/18/20 25 05/18/2025 CBC-C OMPLE TE mdw 16.12 0.00 - 20.00 {CD] Not Available Co Only - [facility] [address] [place], [address], 05/18/2025 06:15:17 05/18/20 25 05/18/2025 CBC-C OMPLE TE manual diff NOT INDICA MICHELLE Not Available Co Only - [facility] [address] [place], [address], 05/18/2025 06:15:17 05/18/20 25 05/18/2025 LACTI C ACID lactic acid 1.05 mmol/ L 0.50 - 2.20 Not Available Co Only - [facility] [address] [place], [address], 05/18/2025 06:12:25 05/18/20 25 05/21/2025 CULTU RE/UR INE results _CULT URE URINE _ Not Available Co Only - [facility] [address] [place], [address], 05/21/2025 08:28:50 05/18/20 25 05/21/2025 CULTU RE/UR INE final report CLEAN CATCH SPECIM EN _>100 ,000_ cfu/m l____ ___ 05/21.0 727.C ML. _MIXE D_GRA M_POS ITIVE _AND_ NEGAT IVE_F LORA_ ___ 05/21.0 727.C ML. SET PREDO MINAN T ORGAN ISMS Micro biolo gy Not Available Co Only - [facility] [address] [place], [address], 05/21/2025 08:28:50 05/18/20 25 05/21/2025 CULTU RE/UR INE [place] [id number] 0001 [facility] ction Date 05/18 [facility] ction Time 04:42 Speci men Note: [place]ce[place]. [place]: [id number] Exam Statu s Compl etion Date 05/20 [...] PREDO MINAN T ORGAN ISMS Not Available Co Only - [facility] [address] [place], [address], 05/21/2025 08:28:50 05/18/20 25 05/18/2025 URINA LYSIS color YELLOW normal : yellow Not Available Co Only - [facility] [address] [place], [address], 05/18/2025 06:03:49 05/18/20 25 05/18/2025 URINA LYSIS character HAZY normal : clear Not Available Co Only - [facility] [address] [place], [address], 05/18/2025 06:03:49 05/18/20 25 05/18/2025 URINA LYSIS spec. grav 1.015 normal : 1.003- 1.029 Not Available Co Only - [facility] [address] [place], [address], 05/18/2025 06:03:49 05/18/20 25 05/18/2025 URINA LYSIS pH 7.0 normal : 4.5 - 7.8 Not Available Co Only - [facility] [address] [place], [address], 05/18/2025 06:03:49 05/18/2005/18/2025 URINA LYSIS leukocytes 2+ normal : negati ve Not Available Co Only - [facility] [address] [place], [address], 05/18/2025 06:03:49 05/18/2005/18/2025 URINA LYSIS nitrite NEGATI VE normal : negati ve Not Available Co Only - [facility] [address] [place], [address], 05/18/2025 06:03:49 05/18/2005/18/2025 URINA LYSIS protein NEGATI VE normal : negati ve Not Available Co Only - [facility] [address] [place], [address], 05/18/2025 06:03:49 05/18/2005/18/2025 URINA LYSIS glucose NEGATI VE normal : negati ve Not Available Co Only - [facility] [address] [place], [address], 05/18/2025 06:03:49 05/18/2005/18/2025 URINA LYSIS ketones NEGATI VE normal : negati ve Not Available Co Only - [facility] [address] [place], [address], 05/18/2025 06:03:49 05/18/2005/18/2025 URINA LYSIS urobilinogen 0.2 normal : 0.2 - 1.0 Not Available Co Only - [facility] [address] [place], [address], 05/18/2025 06:03:49 05/18/20 25 05/18/2025 URINA LYSIS bilirubin NEGATI VE normal : negati ve Not Available Co Only - [facility] [address] [place], [address], 05/18/2025 06:03:49 05/18/20 25 05/18/2025 URINA LYSIS blood NEGATI VE normal : negati ve MICRO SCOPI C Not Available Co Only - [facility] [address] [place], [address], 05/18/2025 06:03:49 05/18/20 25 05/18/2025 URINA LYSIS WBC/hpf 20-30 normal : 0-5 hpf CULTU RE TO FOLLO W PER [place] Not Available Co Only - [facility] [address] [place], [address], 05/18/2025 06:03:49 05/18/20 25 05/18/2025 URINA LYSIS RBC/hpf 5-10 normal : 0-3 hpf Not Available Co Only - [facility] [address] [place], [address], 05/18/2025 06:03:49 05/18/20 25 05/18/2025 URINA LYSIS epith/hpf 30-50 normal : 0-5 hpf Not Available Co Only - [facility] [address] [place], [address], 05/18/2025 06:03:49 05/18/20 25 05/18/2025 URINA LYSIS cast/lpf NONE SEEN normal : 0-4 lpf Not Available Co Only - [facility] [address] [place], [address], 05/18/2025 06:03:49 05/18/20 25 05/18/2025 URINA LYSIS crystals NONE SEEN normal : negati ve Not Available Co Only - [facility] [address] [place], [address], 05/18/2025 06:03:49 05/18/20 25 05/18/2025 URINA LYSIS bacteria 1+ normal : negati ve abnormal Not Available Co Only - [facility] [address] [place], [address], 05/18/2025 06:03:49 05/18/20 25 05/18/2025 URINA LYSIS other MUCUS 1+ Not Available Co Only - [facility] [address] [place], [address], 05/18/2025 06:03:49 05/26/2005/26/2025 UACS color Yellow Not Available Co Only - [address], [address], 05/26/2025 09:18:45 05/26/20 25 05/26/2025 UACS appearance Clear Not Avail able Co Only - [address], [address], 05/26/2025 09:18:45 05/26/20 25 05/26/2025 UACS specific gravity 1.013 1.003- 1.030 Not Available Co Only - [address], [address], 05/26/2025 09:18:45 05/26/20 25 05/26/2025 UACS pH urine 6.0 4.5-7. 5 Not Available Co Only - [address], [address], 05/26/2025 09:18:45 05/26/20 25 05/26/2025 UACS protein 30 abnormal Not Availa ble Co Only - [address], [address], 05/26/2025 09:18:45 05/26/20 25 05/26/2025 UACS urine glucose Negati ve Not Available Co Only - [address], [address], 05/26/2025 09:18:45 05/26/20 25 05/26/2025 UACS ketones Negati ve Not Available Co Only - [facility] [address] [place] [address], [address], 05/26/2025 09:18:45 05/26/20 25 05/26/2025 UACS urine bilirubin Negati ve Not Available Co Only - [facility] [address] [place] [address], [address], 05/26/2025 09:18:45 05/26/20 25 05/26/2025 UACS urine HGB Negati ve Not Available Co Only - [facility] [address] [place] [address], [address], 05/26/2025 09:18:45 05/26/20 25 05/26/2025 UACS nitrite Negati ve Not Available Co Only - [facility] [address] [place] [address], [address], 05/26/2025 09:18:45 05/26/20 25 05/26/2025 UACS leukocyte esterase Large abnormal Not Available Co Onl y - [facility] [address] [place] [address], [address], 05/26/2025 09:18:45 05/26/20 25 05/26/2025 UACS urobilinogen Normal Not Dalila ilable Co Only - [facility] [address] [place] [address], [address], 05/26/2025 09:18:45 05/26/20 25 05/26/2025 UACS urine WBCs 10 /hpf 0-4 high Not Avail able Co Only - [facility] [address] [place] [address], [address], 05/26/2025 09:18:45 05/26/20 25 05/26/2025 UACS urine RBCs 1 /hpf 0-2 Not Avail able Co Only - [facility] [address], [address], 05/26/2025 09:18:45 05/26/20 25 05/26/2025 UACS squamous epithelial cells 6 /hpf 0-[address] [facility] [address] [place] [address], [address], 05/26/2025 09:18:45 05/26/20 25 05/26/2025 UACS bacteria Occasi onal abnormal Not Available [facility] [address] [place] [address], [address], 05/26/2025 09:18:45 05/26/20 25 05/26/2025 UACS transitional epithelial cells 1 /hpf 0-[address] [facility] [address] [place] [address], [address], 05/26/2025 09:18:45 05/26/20 25 05/27/2025 C URINE [...] work- up is neede d. Not Available Co Only - [facility] [address] [place] [address], [address], 05/27/2025 14:07:20 05/26/20 25 05/26/2025 BN PEPTI DE BNP 18 pg/mL 0-72 Not Available Co Only - [facility] [address] [place] [address], [address], 05/26/2025 08:08:43 05/26/20 25 05/26/2025 DIMER D-dimer test 0.45 mcg/m L <=0.50 D-Dim ers are the resul t of fibri nolyt ic break down of cross -link ed fibri n. Phillips tions indic ate incre ased fibri nolys [...] nogen equiv alent units (feu) Not Available Co Only - [facility] [address] [place] [address], [address], 05/26/2025 07:28:09 05/26/2005/26/2025 HSTRO P high sensitivity [...] delta . Not Available Sc Only - [facility] [address] [place] [address], [address], 05/26/2025 07:13:31 05/26/20 25 05/26/2025 EGFR eGFR [...] [facility] Only - [facility] [address] [place] [address], [address], 05/26/2025 07:10:12 05/26/2005/26/2025 MG magnesium 1.8 mg/dL 1.9-2. 7 low Not Available [facility] Only - [facility] [address] [place] [address], [address], 05/26/2025 07:10:11 05/26/20 25 05/26/2025 CMP sodium 137 mmol/ L 136-14 5 Not Available Co Only - [facility] [address] [place] [address], [address], 05/26/2025 07:10:10 05/26/20 25 05/26/2025 CMP potassium 3.9 mmol/ L 3.5-5. 1 Not Available Sc Only - [facility] [address] [place] [address], [address], 05/26/2025 07:10:10 05/26/2005/26/2025 CMP chloride 104 mmol/ L 98-107 Not Available Co Only - [facility] [address], [address], 05/26/2025 07:10:10 05/26/2005/26/2025 CMP CO2 24 mmol/ L 21-31 Not Available Co Only - [facility] [address] [place] [address], [address], 05/26/2025 07:10:10 05/26/2005/26/2025 CMP BUN 19 mg/dL 7-25 Not Available [facility] [address] [place] [address], [address], 05/26/2025 07:10:10 05/26/2005/26/2025 CMP creatinine 1.2 mg/dL 0.6-1. 3 Not Available Co Only - [facility] [address] [place] [address], [address], 05/26/2025 07:10:10 05/26/2005/26/2025 CMP glucose 164 mg/dL 70-105 high Not Availabl e Co Only - [facility] [address] [place] [address], [address], 05/26/2025 07:10:10 05/26/2005/26/2025 CMP calcium 9.4 mg/dL 8.6-10 .3 Not Available Co Only - [facility] [address] [place] [address], [address], 05/26/2025 07:10:10 05/26/2005/26/2025 CMP total protein 6.7 gm/dL 6.0-8. 3 Not Available Co Only - [facility] [address] [place] [address], [address], 05/26/2025 07:10:10 05/26/2005/26/2025 CMP albumin 4.0 gm/dL 3.5-5. 7 Not Available Co Only - [facility] [address] [place] [address], [address], 05/26/2025 07:10:10 05/26/2005/26/2025 CMP bilirubin (total) 0.7 mg/dL 0.3-1. 0 Not Available Co Only - [address], [address], 05/26/2025 07:10:10 05/26/2005/26/2025 CMP AST 23 IU/L 13-39 Not Available Co Only - [address], [address], 05/26/2025 07:10:10 05/26/2005/26/2025 CMP alk phos 135 IU/L 34-104 high Not Availab le Co Only - [address], [address], 05/26/2025 07:10:10 05/26/2005/26/2025 CMP ALT 16 IU/L 7-52 Not Available [facility] - [address], [address], 05/26/2025 07:10:10 05/26/2005/26/2025 CMP anion gap 9 8-16 Anion gap calcu lated using formu la: Na - (Cl + CO2) Measu red total CO2 is used in place of HCO3 Not Available Co Only - [address], [address], 05/26/2025 07:10:10 05/26/2005/26/2025 DIFF neutrophils 60 % 47-67 Not Avai lable Co Only - [address], [address], 05/26/2025 06:44:31 05/26/2005/26/2025 DIFF lymphocytes 27 % 25-45 Not Avai lable Co Only - [address] [place], [address], 05/26/2025 06:44:31 05/26/2005/26/2025 DIFF monocytes 9 % 1-9 Not Availa ble Co Only - [address], [address], 05/26/2025 06:44:31 05/26/2005/26/2025 DIFF eosinophils 3 % 0-6 Not Avai lable Co Only - [address], [address], 05/26/2025 06:44:31 05/26/2005/26/2025 DIFF basophils 1 % 0-2 Not Availa ble Co Only - [address], [address], 05/26/2025 06:44:31 05/26/2005/26/2025 DIFF absolute neutrophils 5.1 K/cum m 1.8-6. 5 Not Available Co Only - [address], [address], 05/26/2025 06:44:31 05/26/2005/26/2025 DIFF absolute lymphocytes 2.2 K/cum m 0.9-3. 0 Not Available Co Only - [address], [address], 05/26/2025 06:44:31 05/26/2005/26/2025 DIFF absolute monocytes 0.8 K/cum m 0.2-0. 8 Not Available Co Only - [address], [address], 05/26/2025 06:44:31 05/26/2005/26/2025 DIFF absolute eosinophils 0.3 K/cum m 0.0-0. 4 Not Available Co Only - [address], [address], 05/26/2025 06:44:31 05/26/2005/26/2025 DIFF absolute basophils 0.1 K/cum m 0.0-0. 2 Not Available Co Only - [facility] [address] [place] [address], [address], 05/26/2025 06:44:31 05/26/20 25 05/26/2025 CBC W/ AUTO DIFF WBC 8.4 K/cum m 3.4-9. 4 Not Available Co Only - [facility] [address] [place] [address], [address], 05/26/2025 06:44:29 05/26/20 25 05/26/2025 CBC W/ AUTO DIFF RBC 4.05 M/cum m 4.20-5 .40 low Not Available [facility] Only - [facility] [address] [place] [address], [address], 05/26/2025 06:44:29 05/26/2005/26/2025 CBC W/ AUTO DIFF hemoglobin 11.2 gm/dL 12.0-1 6.0 low Not Available Co Only - [facility] [address] [place] [address], [address], 05/26/2025 06:44:29 05/26/2005/26/2025 CBC W/ AUTO DIFF hematocrit 33 % 37-47 low Not Available [facility] Only - [facility] [address] [place] [address], [address], 05/26/2025 06:44:29 05/26/2005/26/2025 CBC W/ AUTO DIFF MCV 81 81-94 Not Available Co Only - [facility] [address] [place] [address], [address], 05/26/2025 06:44:29 05/26/2005/26/2025 CBC W/ AUTO DIFF MCH 27.6 pg 27.5-3 3.2 Not Available Co Only - [facility] [address] [place] [address], [address], 05/26/2025 06:44:29 05/26/20 25 05/26/2025 CBC W/ AUTO DIFF MCHC 34.0 g/dL 31.0-3 6.0 Not Available Co Only - [address], [address], 05/26/2025 06:44:29 05/26/20 25 05/26/2025 CBC W/ AUTO DIFF RDW 14.4 % 11.7-1 5.5 Not Available Co Only - [address], [address], 05/26/2025 06:44:29 05/26/20 25 05/26/2025 CBC W/ AUTO DIFF platelets 280 K/cum m 140-41 0 Not Available Co Only - [address], [address], 05/26/2025 06:44:29 05/26/20 25 05/26/2025 CBC W/ AUTO DIFF MPV 8.4 mL Not Available Co Only - [address], [address], 05/26/2025 06:44:29 06/07/20 25 06/07/2025 CBC CBC Not Available [facility] [address] [place] [address], [address], 06/07/2025 19:14:12 06/07/20 25 06/07/2025 CBC WBC 5.9 K/uL 3.8-11 .2 Not Available [facility] - [facility] [address] [place] [address], [address], 06/07/2025 19:14:12 06/07/20 25 06/07/2025 CBC RBC 4.18 M/uL 3.92-5 .10 Not Available [facility] - [facility] [address] [place] [address], [address], 06/07/2025 19:14:12 06/07/20 25 06/07/2025 CBC HGB 11.5 g/dL 11.8-1 5.3 low Not Available [facility] - [facility] [address] [place] [address], [address], 06/07/2025 19:14:12 06/07/2006/07/2025 CBC HCT 35.2 % 36.5-4 4.8 low Not Available [facility] - [facility] [address] [place] [address], [address], 06/07/2025 19:14:12 06/07/2006/07/2025 CBC MCV 84.2 fL 80.0-9 9.0 Not Available [facility] - [facility] [address] [place] [address], [address], 06/07/2025 19:14:12 06/07/2006/07/2025 CBC MCH 27.5 pg 25.5-3 3.6 Not Available [facility] - [facility] [address] [place] [address], [address], 06/07/2025 19:14:12 06/07/2006/07/2025 CBC MCHC 32.7 g/dL 32.0-3 6.0 Not Available [facility] Only - [facility] [address] [place] [address], [address], 06/07/2025 19:14:12 06/07/2006/07/2025 CBC RDW-SD 39.6 fL 35.1 - 46.3 Not Available [facility] - [facility] [address] [place] [address], [address], 06/07/2025 19:14:12 06/07/2006/07/2025 CBC plt 272 K/uL 130-40 0 Not Available [facility] [address] [place] [address], [address], 06/07/2025 19:14:12 06/07/2006/07/2025 CBC MPV 9.9 fL 9.3-12 .8 Not Available [facility] [address] [place] [address], [address], 06/07/2025 19:14:12 06/07/20 25 06/07/2025 urina lysis , compl ete urinalysis, complete LOW LEVEL S OF HEMOG LOBIN IN ABSEN CE OF HEMAT URIA MAY NOT BE CLINI MARCOS ALETAI PAOLA T. Not Available [facility] Only - [facility] [address] [place] [address], [address], 06/07/2025 19:21:12 06/07/20 25 06/07/2025 urina lysis , compl ete color DARK YELLOW Dipst ick may be inacc urate due to the color of the urine Not Available [facility] [address] [place] [address], [address], 06/07/2025 19:21:12 06/07/20 25 06/07/2025 urina lysis , compl ete clarity CLEAR Not Available [facility] [address] [place] [address], [address], 06/07/2025 19:21:12 06/07/2006/07/2025 urina lysis , compl ete pH 7.0 5.0-7. 5 Not Available [facility] [address] [place] [address], [address], 06/07/2025 19:21:12 06/07/20 25 06/07/2025 urina lysis , compl ete specific gravity 1.010 1.000- 1.030 Not Available [facility] - [facility] [address] [place] [address], [address], 06/07/2025 19:21:12 06/07/20 25 06/07/2025 urina lysis , compl ete blood NEGATI VE negati ve Not Available [facility] - [facility] [address] [place] [address], [address], 06/07/2025 19:21:12 06/07/20 25 06/07/2025 urina lysis , compl ete bilirubin NEGATI VE negati ve Not Available [facility] - [facility] [address] [place] [address], [address], 06/07/2025 19:21:12 06/07/20 25 06/07/2025 urina lysis , compl ete urobilinogen 1.0 0.2-1. 0 Not Available [facility] - [facility] [address] [place] [address], [address], 06/07/2025 19:21:12 06/07/20 25 06/07/2025 urina lysis , compl ete ketone NEGATI VE negati ve Not Available [facility] - [facility] [address] [place] [address], [address], 06/07/2025 19:21:12 06/07/20 25 06/07/2025 urina lysis , compl ete glucose NEGATI VE negati ve Not Available [facility] - [facility] [address] [place] [address], [address], 06/07/2025 19:21:12 06/07/20 25 06/07/2025 urina lysis , compl ete protein NEGATI VE negati ve Not Available [facility] - [facility] [address] [place] [address], [address], 06/07/2025 19:21:12 06/07/20 25 06/07/2025 urina lysis , compl ete nitrite POSITI VE negati ve abnormal Not Available [facility] [address] [place] [address], [address], 06/07/2025 19:21:12 06/07/2006/07/2025 urina lysis , compl ete leukocytes 1+ negati ve abnormal Not Available [facility] [address] [place] [address], [address], 06/07/2025 19:21:12 06/07/20 25 06/07/2025 urina lysis , compl ete review * Micro scopi c resul ts revie wed by Techn [facility] Not Available [facility] Only - [facility] [address] [place] [address], [address], 06/07/2025 19:21:12 06/07/20 25 06/07/2025 urina lysis , compl ete RBC 0-2 0-2/hp f Not Available [facility] [address] [place] [address], [address], 06/07/2025 19:21:12 06/07/20 25 06/07/2025 urina lysis , compl ete WBC 0-5 0-5/hp f Not Available [facility] [address] [place] [address], [address], 06/07/2025 19:21:12 06/07/20 25 06/07/2025 urina lysis , compl ete WBC. CONFI Cell count s confi rmed by Techn [facility] Not Available [facility] - [facility] [address] [place] [address], [address], 06/07/2025 19:21:12 06/07/20 25 06/07/2025 urina lysis , compl ete squamous epithelial 3-5 0-10/h pf Not Available [facility] [address] [place] [address], [address], 06/07/2025 19:21:12 06/07/20 25 06/07/2025 urina lysis , compl ete bacteria NONE SEEN none Not Available [facility] [address] [place] [address], [address], 06/07/2025 19:21:12 06/07/20 25 06/07/2025 urina lysis , compl ete hyaline cast 0-2 0-2/lp f Not Available [facility] [address] [place] [address], [address]679, 06/07/2025 19:21:12 06/07/20 25 06/07/2025 renal funct ion panel , serum renal function panel Not Available [facility] [address] [place] [address], [address], 06/07/2025 19:42:24 06/07/20 25 06/07/2025 renal funct ion panel , serum sodium 140 mmol/ L 136-14 6 Not Available [facility] [address] [place] [address], 70[address], 06/07/2025 19:42:24 06/07/20 25 06/07/2025 renal funct ion panel , serum potassium 4.0 mmol/ L 3.5-5. 1 Not Available [facility] [address] [place] [address], [id number], 06/07/2025 19:42:24 06/07/20 25 06/07/2025 renal funct ion panel , serum chloride 106 mmol/ L 98-110 Not Available [facility] [address] [place] [address], [id number], 06/07/2025 19:42:24 06/07/20 25 06/07/2025 renal funct ion panel , serum CO2 25 mEq/L 20-32 Not Available [facility] [address] [place] [address], [id number], 06/07/2025 19:42:24 06/07/20 25 06/07/2025 renal funct ion panel , serum anion gap 13 mmol/ L 10-22 Not Available [facility] [address] [place] [address], [id number], 06/07/2025 19:42:24 06/07/20 25 06/07/2025 renal funct ion panel , serum glucose 188 mg/dL 70-100 high Not Available [facility] [address] [place] [address], [id number], 06/07/2025 19:42:24 06/07/20 25 06/07/2025 renal funct ion panel , serum calcium 9.5 mg/dL 8.4-10 .4 Not Available [facility] [address] [place] [address], [id number], 06/07/2025 19:42:24 06/07/20 25 06/07/2025 renal funct ion panel , serum albumin 4.1 g/dL 3.5-5. 3 Not Available [facility] [address] [place] [address], [address], 06/07/2025 19:42:24 06/07/2006/07/2025 renal funct ion panel , serum phosphorus 3.1 mg/dL 2.7-4. 5 Not Available [facility] [address] [place] [address], 98921, 06/07/2025 19:42:24 06/07/2006/07/2025 renal funct ion panel , serum BUN 15 mg/dL 7-21 Not Available [facility] [address] [place] [address], 14520, 06/07/2025 19:42:24 06/07/2006/07/2025 renal funct ion panel , serum creatinine 0.9 mg/dL 0.7-1. 3 Not Available [facility] [address] [place] [address], 42232, 06/07/2025 19:42:24 06/07/2006/07/2025 renal funct ion panel , serum CKD-epi GFR 76 eGFR was calcu lated using the 2020 CKD-E PI equat ion. ([employer] Merch[employer]iser andree Kidne y Disea se has an eGFR less than 60 mL/mi n/1.7 3mm for a perio d of three month s or more. ) This calcu latio n has not been valid ated for patie nt ages <18 or >90 years old. Not Available [facility] [address] [place] [address], 06566, 06/07/2025 19:42:24 06/07/20 25 06/08/2025 micro album in, urine microalbumin ,random panel Not Available [facility] [address] [place] [address], 23770, 06/08/2025 10:13:00 06/07/20 25 06/08/2025 micro album in, urine microalbumin random 0.5 mg/dL Not Available [facility] - [facility] [address] [place] [address], 77798, 06/08/2025 10:13:00 06/07/20 25 06/08/2025 micro album in, urine creatinine, urine random 37 mg/dL Refer ence range not estab lishe d for other than 24 hour colle ction . Not Available [facility] [address] [place] [address], 37270, 06/08/2025 10:13:00 06/07/20 25 06/08/2025 micro album [...] in or Creat inine .) Not Available [facility] [address] [place] [address], 01427, 06/08/2025 10:13:00 06/07/20 25 06/08/2025 C4 (comp lemen t), serum or plasm a complement C4 44 mg/dL 12-38 high Not Available [facility] [address] [place] [address], 32157, 06/08/2025 14:11:19 06/07/20 25 06/08/2025 C3 (comp lemen t), serum or plasm a complement C3 201 mg/dL 82-167 high Not Available [facility] - [facility] [address], [address], 06/08/2025 14:11:20 06/07/20 25 06/08/2025 ADALBERTO (anti nucle ar antib odies ) scree n, serum ADALBERTO screen NEGATI VE negati ve Perfo rmed by Bio-R ad enzym e immun oassa y Not Available [facility] [address], [address], 06/08/2025 15:48:52 06/07/20 25 06/09/2025 cultu re [...] resis tant inter preta tion Not Available [facility] Only - [facility] [address], [address], 06/09/2025 09:46:55 06/07/20 25 06/09/2025 immun ofixa tion, serum immunofixati on, serum No monoc lonal ity detec michelle. Not Available [facility] [address] [place] [address], 76924, 06/09/2025 15:12:43 06/07/2006/09/2025 immun ofixa tion, serum IgG quantitative 1147 mg/dL 586-16 02 Not Available [facility] [address] [place] [address], 45320, 06/09/2025 15:12:43 06/07/20 25 06/09/2025 immun ofixa tion, serum IgA quantitative 393 mg/dL 87-352 high Not Available [facility] [address] [place] [address], 53110, 06/09/2025 15:12:43 06/07/20 25 06/09/2025 immun ofixa tion, serum IgM quantitative 80 mg/dL 26-217 Not Available [facility] [address] [place] [address], 55236, 06/09/2025 15:12:43 06/07/2006/12/2025 anca panel , serum anca, complete Not Available [facility] [address] [place] [address], 01690, 06/12/2025 20:10:54 06/07/2006/12/2025 anca panel , serum myeloperoxid ase Ab <0.2 units 0.0-0. 9 Not Available [facility] [address] [place] [address], 11919, 06/12/2025 20:10:54 06/07/2006/12/2025 anca panel , serum proteinase-3 Ab, anca <0.2 units 0.0-0. 9 Not Available [facility] [address] [place] [address], 73293, 06/12/2025 20:10:54 06/07/20 25 06/12/2025 anca panel , serum C-anca titer <1:20 titer neg:<1 :20 Not Available [facility] [address] [place] [address], 11817, 06/12/2025 20:10:54 06/07/2006/12/2025 anca panel , serum [...] ng of posit marquis sera with both WY-3 and MPO-A NCA enzym e immun oassa ys. As many as 5% serum sampl es are posit marquis only by EIA. Ref. AM J Clin Patho l 1999; 111:5 07-51 3. Not Available [facility] [address] [place] [address], 48690, 06/12/2025 20:10:54 06/07/2006/12/2025 anca panel , serum atypical P anca titer <1:20 titer neg:<1 :20 The atypi radha pANCA patte rn has been obser elva in a signi fican t perce ntage of patie nts with ulcer ative colit is, prima ry scler osing chola ngiti s and autoi mmune hepat itis. Not Available [facility] [address] [place] [address], 03133, 06/12/2025 20:10:54 06/07/2006/07/2025 UE urine eosinophils NEGATI VE Not Available Co Only - [facility] [address] [place] [address], [place], [address], 06/07/2025 23:40:52 06/07/20 25 06/08/2025 cultu re + sensi tivit y, urine urine culture and sens. PREL IM URINE GRAM NEGAT MARQUIS RODS DATE/ TIME: 06/08 10:17 >100, 000 CFU/m L Not Available [facility] [address], [address], 06/08/2025 11:18:58 06/18/20 25 06/20/2025 C URINE urine culture (new) abnormal Print Date/ Time: 2024 10:46 CDT Patie nt: JANINA WHITE EEN P Micro biolo gy - Uroge [...] furth er work- up is neede d. [place] ELIMI NARY REPOR TS Preli minar y Repor t [] Verif ied Date/ Time: 2024 14:19 CDT Moder ate proba ble conta minan ts inclu din,00 0 cfu/m l Gram Negat marquis Rods Cultu re reinc ubate d Not Available Co Only - [facility] [address] [place] [address], 43379, 06/20/2025 11:46:50 06/18/2006/18/2025 UACS color Pauline Not Available Co Only - [facility] [address], [address], 06/18/2025 17:21:53 06/18/2006/18/2025 UACS appearance Clear Not Avail able Co Only - [facility] [address], [address], 06/18/2025 17:21:53 06/18/2006/18/2025 UACS specific gravity 1.012 1.003- 1.030 Not Available Co Only - [facility] [address] [place] [address], 31833, 06/18/2025 17:21:53 06/18/2006/18/2025 UACS pH urine 6.0 4.5-7. 5 Not Available Co Only - [facility] [address] [place] [address], 51893, 06/18/2025 17:21:53 06/18/2006/18/2025 UACS protein 30 abnormal Not Availa ble Co Only - [facility] [address] [place] [address], 62232, 06/18/2025 17:21:53 06/18/2006/18/2025 UACS urine glucose Negati ve Not Available Co Only - [facility] [address] [place] [address], 11904, 06/18/2025 17:21:53 06/18/2006/18/2025 UACS ketones Negati ve Not Available Co Only - [facility] [address] [place] [address], 62318, 06/18/2025 17:21:53 06/18/2006/18/2025 UACS urine bilirubin Negati ve Not Available Co Only - [facility] [address] [place] [address], 84608, 06/18/2025 17:21:53 06/18/20 25 06/18/2025 UACS urine HGB Small abnormal Not Avai lable Co Only - [facility] [address] [place] [address], 95285, 06/18/2025 17:21:53 06/18/2006/18/2025 UACS nitrite Positi ve abnormal Not Available Co Only - [facility] [address] [place] [address], 39444, 06/18/2025 17:21:53 06/18/20 25 06/18/2025 UACS leukocyte esterase Negati ve Not Available Co Only - [facility] [address] [place] [address], 73180, 06/18/2025 17:21:53 06/18/2006/18/2025 UACS urobilinogen >=4.0 abnormal Not A vailable Co Only - [facility] [address] [place] [address], 75880, 06/18/2025 17:21:53 06/18/20 25 06/18/2025 UACS urine WBCs 2 /hpf 0-4 Not Avail able Co Only - [facility] [address] [place] [address], 45806, 06/18/2025 17:21:53 06/18/20 25 06/18/2025 UACS urine RBCs 0 /hpf 0-2 Not Avail able Co Only - [facility] [address] [place] [address], 61481, 06/18/2025 17:21:53 06/18/20 25 06/18/2025 UACS squamous epithelial cells 6 /hpf 0-5 high Not Available Co Onl y - [facility] [address] [place] [address], 70090, 06/18/2025 17:21:53 06/18/20 25 06/18/2025 UACS bacteria Few abnormal Not Avail able Co Only - [facility] [address] [place] [address], 20465, 06/18/2025 17:21:53 06/18/20 25 06/18/2025 UACS color Pauline Not Available [facility] [address] [place] [address], 39979, 06/18/2025 17:21:52 06/18/2006/18/2025 UACS appearance Clear Not Avail able [facility] [address] [place] [address], 55877, 06/18/2025 17:21:52 06/18/2006/18/2025 UACS specific gravity 1.012 1.003- 1.030 Not Available [address], 7[address], 06/18/2025 17:21:52 06/18/2006/18/2025 UACS pH urine 6.0 4.5-7. 5 Not Available [address], 05347, 06/18/2025 17:21:52 06/18/2006/18/2025 UACS protein 30 abnormal Not Availa ble [facility] [address] [place] [address], 51849, 06/18/2025 17:21:52 06/18/2006/18/2025 UACS urine glucose Negati ve Not Available [facility] [address] [place] [address], 96751, 06/18/2025 17:21:52 06/18/2006/18/2025 UACS ketones Negati ve Not Available [address], 21668, 06/18/2025 17:21:52 06/18/2006/18/2025 UACS urine bilirubin Negati ve Not Available [facility] [address] [place] [address], 99375, 06/18/2025 17:21:52 06/18/20 25 06/18/2025 UACS urine HGB Small abnormal Not Avai lable [place] [address] [place] [address], 56646, 06/18/2025 17:21:52 06/18/2006/18/2025 UACS nitrite Positi ve abnormal Not Available Co Only - [facility] [address] [place] [address], 74932, 06/18/2025 17:21:52 06/18/2006/18/2025 UACS leukocyte esterase Negati ve Not Available Co Only - [facility] [address] [place] [address], 24342, 06/18/2025 17:21:52 06/18/2006/18/2025 UACS urobilinogen >=4.0 abnormal Not A vailable Co Only - [facility] [address], 56457, 06/18/2025 17:21:52 06/18/2006/18/2025 UACS urine WBCs 2 /hpf 0-4 Not Avail able Co Only - [facility] [address] [place] [address], 95794, 06/18/2025 17:21:52 06/18/2006/18/2025 UACS squamous epithelial cells 6 /hpf 0-5 high Not Available Co Onl y - [facility] [address], 40[address], 06/18/2025 17:21:52 06/18/2006/18/2025 UACS bacteria Few abnormal Not Avail able Co Only - [facility] [address] [place] [address], 54983, 06/18/2025 17:21:52 06/18/2006/18/2025 EGFR eGFR 88 mL/mi [...] [facility] [address] [place] [address], 73045, 06/18/2025 17:15:19 06/18/2006/18/2025 LPSE lipase,serum 18 u/L 11-82 Not Dalila ilable [facility] [address] [place] [address], 59936, 06/18/2025 17:15:18 06/18/2006/18/2025 CMP sodium 139 mmol/ L 136-14 5 Not Available [facility] [address] [place] [address], 71774, 06/18/2025 17:15:16 06/18/2006/18/2025 CMP potassium 4.1 mmol/ L 3.5-5. 1 Not Available [facility] [address] [place] [address], 47483, 06/18/2025 17:15:16 06/18/2006/18/2025 CMP chloride 106 mmol/ L 98-107 Not Available [facility] [address] [place] [address], 28659, 06/18/2025 17:15:16 06/18/20 25 06/18/2025 CMP CO2 24 mmol/ L 21-31 Not Available [facility] [address] [place] [address], 92387, 06/18/2025 17:15:16 06/18/20 25 06/18/2025 CMP BUN 9 mg/dL 7-25 Not Available Co Only - [facility] [address], 73[address], 06/18/2025 17:15:16 06/18/20 25 06/18/2025 CMP creatinine 0.8 mg/dL 0.6-1. 3 Not Available Co Only - [facility] [address] [place] [address], 59163, 06/18/2025 17:15:16 06/18/20 25 06/18/2025 CMP glucose 210 mg/dL 70-105 high Not Availabl e Co Only - [facility] [address] [place] [address], 40307, 06/18/2025 17:15:16 06/18/20 25 06/18/2025 CMP calcium 9.3 mg/dL 8.6-10 .3 Not Available [facility] [address] [place] [address], 19302, 06/18/2025 17:15:16 06/18/20 25 06/18/2025 CMP total protein 7.2 gm/dL 6.0-8. 3 Not Available Co Only - [facility] [address] [place] [address], 95155, 06/18/2025 17:15:16 06/18/20 25 06/18/2025 CMP albumin 4.0 gm/dL 3.5-5. 7 Not Available Co Only - [facility] [address] [place] [address], 38199, 06/18/2025 17:15:16 06/18/20 25 06/18/2025 CMP bilirubin (total) 0.8 mg/dL 0.3-1. 0 Not Available Co Only - [facility] [address] [place] [address], 41074, 06/18/2025 17:15:16 06/18/20 25 06/18/2025 CMP AST 24 IU/L 13-39 Not Available Co Only - [facility] [address] [place] [address], 90222, 06/18/2025 17:15:16 06/18/20 25 06/18/2025 CMP alk phos 134 IU/L 34-104 high Not Availab le Co Only - [address], [address], 06/18/2025 17:15:16 06/18/20 25 06/18/2025 CMP ALT 15 IU/L 7-52 Not Available Co Only - [facility] [address] [place] [address], 49352, 06/18/2025 17:15:16 06/18/2006/18/2025 CMP anion gap 9 8-16 Anion gap calcu lated using formu la: Na - (Cl + CO2) Measu red total CO2 is used in place of HCO3 Not Available Co Only - [address], [address], 06/18/2025 17:15:16 06/18/20 25 06/18/2025 DBIL bilirubin (direct) 0.1 mg/dL 0.0-0. 2 Not Available Co Only - [address], 20853, 06/18/2025 17:15:14 06/18/20 25 06/18/2025 DIFF neutrophils 64 % 47-67 Not Avai lable Co Only - [address], 33771, 06/18/2025 16:50:30 06/18/20 25 06/18/2025 DIFF lymphocytes 23 % 25-45 low Not Avai lable Co Only - [facility] [address] [place] [address], 38837, 06/18/2025 16:50:30 06/18/20 25 06/18/2025 DIFF monocytes 8 % 1-9 Not Availa ble Co Only - [address], 06464, 06/18/2025 16:50:30 06/18/20 25 06/18/2025 DIFF eosinophils 3 % 0-6 Not Avai lable Co Only - [address], 62186, 06/18/2025 16:50:30 06/18/20 25 06/18/2025 DIFF basophils 1 % 0-2 Not Availa ble Co Only - [address], 04644, 06/18/2025 16:50:30 06/18/20 25 06/18/2025 DIFF absolute neutrophils 5.0 K/cum m 1.8-6. 5 Not Available [address], [address], 06/18/2025 16:50:30 06/18/20 25 06/18/2025 DIFF absolute lymphocytes 1.8 K/cum m 0.9-3. 0 Not Available Co Only - [address], 39684, 06/18/2025 16:50:30 06/18/20 25 06/18/2025 DIFF absolute monocytes 0.6 K/cum m 0.2-0. 8 Not Available Co Only [address], [address], 06/18/2025 16:50:30 06/18/20 25 06/18/2025 DIFF absolute eosinophils 0.3 K/cum m 0.0-0. 4 Not Available Co Only [address], 738[address], 06/18/2025 16:50:30 06/18/20 25 06/18/2025 DIFF absolute basophils 0.1 K/cum m 0.0-0. 2 Not Available Co Only [address], 93197, 06/18/2025 16:50:30 06/18/20 25 06/18/2025 CBC W/ AUTO DIFF WBC 7.8 K/cum m 3.4-9. 4 Not Available Co Only - [address], 40767, 06/18/2025 16:50:28 06/18/20 25 06/18/2025 CBC W/ AUTO DIFF RBC 4.23 M/cum m 4.20-5 .40 Not Available Co Only - [address], 93659, 06/18/2025 16:50:28 06/18/20 25 06/18/2025 CBC W/ AUTO DIFF hemoglobin 11.5 gm/dL 12.0-1 6.0 low Not Available Co Only - [address], 96090, 06/18/2025 16:50:28 06/18/20 25 06/18/2025 CBC W/ AUTO DIFF hematocrit 35 % 37-47 low Not Available Co Only - [address], 35902, 06/18/2025 16:50:28 06/18/20 25 06/18/2025 CBC W/ AUTO DIFF MCV 83 81-94 Not Available Co Only - [address], 34989, 06/18/2025 16:50:28 06/18/20 25 06/18/2025 CBC W/ AUTO DIFF MCH 27.1 pg 27.5-3 3.2 low Not Available Co Only - [address], 82938, 06/18/2025 16:50:28 06/18/20 25 06/18/2025 CBC W/ AUTO DIFF MCHC 32.6 g/dL 31.0-3 6.0 Not Available Co Only - [address], 26743, 06/18/2025 16:50:28 06/18/20 25 06/18/2025 CBC W/ AUTO DIFF RDW 14.1 % 11.7-1 5.5 Not Available Co Only [facility] [address] [place] [address], 87171, 06/18/2025 16:50:28 06/18/20 25 06/18/2025 CBC W/ AUTO DIFF platelets 278 K/cum m 140-41 0 Not Available [facility] [address] [place] [address], 35836, 06/18/2025 16:50:28 06/18/20 25 06/18/2025 CBC W/ AUTO DIFF MPV 7.9 mL Not Available [facility] [address] [place] [address], 03015, 06/18/2025 16:50:28 06/18/20 25 06/19/2025 C URINE urine culture (new) abnormal Print Date/ Time: 2024 14:19 CDT Patie nt: JANINA WHITE P Micro biolo gy - Uroge nital Legen d: c=Cor recte d, F=Res ult Comme nt, S=Idalia cepti ble, I=Int ermed iate, R=Res istan t, N/A=N ot Appli cable PROCE DURE: Urine Cultu re [] ACCES KHALIDA: [id number] [id number] SOURC E: Urine BODY SITE: COLLE CTED DATE/ TIME: 2024 15:21 CDT RECEI ELVA DATE/ TIME: 2024 19:13 CDT START DATE/ TIME: 2024 19:13 CDT FREE TEXT SOURC E: [place] ELIMI NARY REPOR TS Preli minar y Repor t [] Verif ied Date/ Time: 2024 14:19 CDT Moder ate proba ble conta minan ts inclu din,00 0 cfu/m l Gram Negat marquis Rods Cultu re reinc ubate d Not Available [facility] [address] [place] [address], 6[address], 06/19/2025 15:19:31 06/28/2006/30/2025 alpha -1-an titry psin (aat) , QN, serum A-1 antitrypsin phenotype Not Available [facility] [address], [address], 06/30/2025 17:12:05 06/28/2006/30/2025 alpha -1-an titry psin (aat) , QN, serum pedbd-8-mpct trypsin 140 mg/dL 101-18 7 Not Available [facility] Only - [facility] [address] [place] [address], 8[address], 06/30/2025 17:12:05 06/28/2006/30/2025 alpha -1-an titry psin [...] to confi rm pheno type. Not Available [facility] - [facility] [address] [place] [address], [place], [address], 06/30/2025 17:12:05 04/27/[address], abdom en + pelvi s, w/o contr ast [facility] [address] [place]. [address] ------ ---NAM E----- ---- NUMBER SEX AGE ADMIT DISC. XRAY# F/C TYPE ZEKE BOOTHE EN P [id number] F 54 5 [id number] GIL E/R DATE OF : 1970 M/R# [id number] PH#: [id number] LOCATI ON: TRANSC RIBED: 18:09 [place] [address] COMPLE MICHELLE: 17:31 TSY [id number] {REASO N FOR PROCED URE: Right flank [...] hernia repair . 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 TECHNI QUE: CT of [...] erativ e relate d to a by Solon or seroma , unchan ged. The spleen [...] ing, nodula rity, and calcif icatio n control room tender iorly within the soft tissue s. No calcul us within the bladde r. The uterus is presen t. There are a few pelvic calcif icatio ns presen t. No free fluid. There is vacuum disc phenom enon with sugges tion of disc bulge and control room tender ior disc space calcif icatio n at L5 - S1. IMPRES KHALIDA: 1. No acute abnorm ality identi fied to explai n the patien t's sympto ms. 2. Chroni c findin gs in the abdome n and pelvis are unchan ged compar ed to prior as discus sed above. This report was dictat ed remote ly by a [facility] Radiol ogist in [place], [place]. Electr onical ly Signed By: HRADEEP SCOTT MD , Date/T blayne: 18:09 INTERFACE Co Only - [facility] [address] [facility], [place], [address], 04/27/2025 19:12:58 05/07/20 25 05/07/2025 CT, abdom en + pelvi s, w/o contr ast [facility] [address] [place] [address] Name: TL WHITE Age: 54 : 1970 Exam Date: 2024 ACCESS ION: [id number] ORDERI SWETHA MD: ANKUSH JOEL EXAM: CT of the [...] the subcut aneous as fat of the control room tender ior abdomi nal wall/u pper glutea l [...] 2024 17:57 Final Report Dictat ed: 17:57 Shelley Patterson MD Signed : 17:57 Leonardo FREEDMAN, Shelley Hussein INTERFACE Co Only - [facility] [address] [place] [address], [address], 05/07/2025 19:01:25 05/18/[address], abdom en + pelvi s, w/ contr ast [facility] [address] [place]. [address] ------ ---NAM E----- ---- NUMBER SEX AGE ADMIT DISC. XRAY# F/C TYPE ZEKE BOOTHE EN P [id number] 9 F 54 5 [id number] GIL E/R DATE OF : 1970 M/R# [id number] PH#: [id number] LOCATI ON: TRANSC RIBED: 6:[address] [place] [address] COMPLE MICHELLE: 4:39 TSY [id number] {REASO N FOR PROCED URE: Abdomi nal [...] 3.5 x 3.1 cm cyst at the [facility] surgic al bed. Electr onical ly Signed By: SHADI Slater MD , Date/T blayne: 06:22 INTERFACE Sc Only - [facility] [address] [place], [address], 05/18/2025 07:26:44 05/21/20 25 05/21/2025 dmitry posada/kojo griffin tic resul t No observ ation record ed. [address] - Radiology [address] [facility], [place], [address], 05/23/2025 13:18:15 05/22/20 25 05/13/2025 US, doppl er echoc ardio gram No observ ation record ed. BARCODE Not Available 2024 16:02:31 05/26/20 25 05/26/2025 D chest 1 view [facility] [address] [place] [address] Name: TL WHITE Age: 54 : 1970 Exam Date: 2024 ACCESS ION: [id number] BLAISE POSADA MD: JESS GARCES EXAM: Chest [...] MD, Sergo Hussein INTERFACE Sc Only - [facility] [address] , [place], [address], 05/26/2025 07:48:51 05/26/20 25 05/26/2025 XR, chest , 2 view No observ ation record ed. [facility] (Radiology) [address] [place] [address], [address], 05/26/2025 14:34:26 05/28/20 CT head scan w/o contr ast [facility] [address] [place]. [address] ------ ---NAM E----- ---- NUMBER SEX AGE ADMIT DISC. XRAY# F/C TYPE RICE TL EN P [id number] 4 F 54 5 [id number] GIL E/R DATE OF : 1970 M/R# [id number] #: [id number] LOCATI ON: TRANSC RIBED: 14:29 CT HEAD SCAN W/[place] [address] COMPLE MICHELLE: 13:58 TSY [id number] {REASO N FOR PROCED URE: Headac he [...] was dictat ed remote ly by a [facility] Radiol ogist in [place], [place]. Electr onical ly Signed By: MEET BROWN MD , Date/T blayne: 14:29 INTERFACE Sc Only - [facility] [address], [place], [address], 05/28/2025 15:32:34 05/28/[address], cervi radha spine , w/o contr ast [facility] [address] [place]. [address] ------ ---NAM E----- ---- NUMBER SEX AGE ADMIT DISC. XRAY# F/C TYPE ZEKE BOOTHE EN P [id number] 4 F 54 5 [id number] GIL E/R DATE OF : 1970 M/R# [id number] #: [id number] LOCATI ON: TRANSC RIBED: 14:31 CT C-SPIN E [place] [address] COMPLE MICHELLE: 13:58 TSY [id number] {REASO N FOR PROCED URE: Neck Pain [...] was dictat ed remote ly by a [facility] Radiol ogist in [place], [place]. Electr onical ly Signed By: MEET MORALES IN , Date/T blayne: 14:31 INTERFACE Sc Only - [facility] Rad [address], [place], [address], 05/28/2025 15:35:09 05/28/[address], thora cic spine , w/o contr ast [facility] [address] [place]. [address] ------ ---NAM E----- ---- NUMBER SEX AGE ADMIT DISC. XRAY# F/C TYPE ZEKE JUANBIBIANA EN P [id number] F 54 5 [id number] GIL E/R DATE OF : 1970 M/R# [id number] PH#: [id number] LOCATI ON: TRANSC RIBED: 14:35 CT THORAC IC SPINE W/O CONTRA [id number] COMPLE MICHELLE: 13:58 TSY [id number] {REASO N FOR PROCED URE: Pain PHYSIC [...] was dictat ed remote ly by a [facility] Radiol ogist in [place], [place]. Electr onical ly Signed By: MEET BROWN MD , Date/T blayne: 14:35 INTERFACE Co Only - [facility] Rad [address] [place], [address], 05/28/2025 15:38:22 06/05/20 25 06/03/2024 CT, angio gram, chest , w/ contr ast No observ ation record ed. [email or web address] Not Available 2024 16:05:59 06/07/20 25 06/07/2025 XR, chest , [address] [address] Teleph one Name: TL WHITE [id number] am [...] 3:01 PM cc: Page PAGE 1 of [facility] ES 1 MIKE Sc Only - Sc Radiology [address] [place] [address], [address], 06/08/2025 14:33:15 Result Notes Documentation Provider Name and Address Organization Details Recorded Time Ct, Abdomen + Pelvis, W/o Contrast : [facility] [address] [place] [address] Name: LETI WHITE Age: 54 : 1970 [...] 07-MAY-25 17:57 Becca Patterson MD Not Available [facility] 05/07/2025 19:01:26 Ct, Abdomen + Pelvis, W/ Contrast : [address] [id number] ---------NAME--------- NUMBER SEX AGE ADMIT DISC. XRAY# F/C TYPE ZEKE CARRANZA P [id number] F 54 05/18/25 [id number] GIL E/R DATE OF : 1970 M/R# [id number] #: [id number] LOCATION: TRANSCRIBED: 05/18/25 6:22 CT ABD PELVIS W CONTRAST [id number] COMPLETED:05/18/25 4:39 TSY 82127 {REASON FOR PROCEDURE: Abdominal Pain PHYSICIAN: RADHA [...] MD , Date/Time: 05/18/25 06:22 Not Available [facility] 05/18/2025 07:26:44 Xr, Chest, 2 View : This document (1 of 1) was received from [email or web address] on 05/26/2025 through Direct Message along with the following message body content: You have received a 2 page fax at 05/26/2025 2:15:08 PM. * The Caller-ID for this fax is unknown. If you have any questions regarding this message or your service contact Corporate Support: [place] Email: [email or web address] [email or web address] Phone: or Email: [email or web address] Phones: [phone] Thank you for using the eEvent service! Not Available [facility] 05/28/2025 02:42:41 Ct, Cervical Spine, W/o Contrast : [address] [id number] ---------NAME--------- NUMBER SEX AGE ADMIT DISC. XRAY# F/C TYPE ZEKE CARRANZA P [id number] F 54 05/28/25 [id number] GIL E/R DATE OF : 1970 M/R# [id number] #: [id number] LOCATION: TRANSCRIBED: 05/28/25 14:31 CT C-SPINE WO CONTRAST [id number] COMPLETED:05/28/25 13:58 TSY 20150 {REASON FOR PROCEDURE: Neck Pain PHYSICIAN: KADEEM [...] by a [facility] Radiologist in [place], [place]. Electronically Signed By: MEET MARLEY MD , Date/Time: 05/28/25 14:31 Not Available [facility] 05/28/2025 15:35:09 Ct, Thoracic Spine, W/o Contrast : [address] [address] ---------NAME--------- NUMBER SEX AGE ADMIT DISC. XRAY# F/C TYPE ZKEE CARRANZA P [id number] F 54 05/28/25 [id number] GIL E/R DATE OF : 1970 M/R# [id number] #: [id number] LOCATION: TRANSCRIBED: 05/28/25 14:35 CT THORACIC SPINE W/O [id number] COMPLETED:05/28/25 13:58 TSY 19724 {REASON FOR PROCEDURE: Pain PHYSICIAN: KADEEM VIZCAINO [...] by a [facility] Radiologist in [place], [place]. Electronically Signed By: MEET MARLEY MD , Date/Time: 05/28/25 14:35 Not Available [facility] 05/28/2025 15:38:23 Xr, Chest, 2 View : [place] [address] Name: LETI WHITE Date: 06/07/2025 Age: 54Physician: [...] 1 of NUMPAGES 1 Carrol Villagomez MD [address] [place] [address], [address], [facility] 06/08/2025 12:48:14 Alpha 1 Antitrypsin Mm, Qn, Serum Or Plasma (obs) : This document (1 of 1) was received from [email or web address] on 06/19/2025 through Direct Message along with the following message body content: You have received a 1 page fax at 06/19/2025 7:32:51 PM. * The Caller-ID for this fax is TESTCSID. If you have any questions regarding this message or your service contact Corporate Support: [place] Email: [email or web address] [email or web address] Phone: or Email: [email or web address] Phones: [phone] Thank you for using the eEvent service! Sindhu Pizarro [facility] 06/26/2025 16:23:03 Problems Name Problem SNOMED Code Status Onset Date Resolution Date Notes Provider Name and Address Organization Details Recorded Time Migraine 38514512 Active 2020 Yolande Riley [facility] 4 17:00:48 Hypertens marquis disorder 29289501 Active 2020 Yolande Riley [facility] 4 17:00:48 Atypical squamous cells of undetermi tiffanie significa nce on cervical Papanicol aou smear 546104422 Active 2020 Yolande Riley [facility] 4 17:00:48 Second degree uterine prolapse 6510948 [facility] 17:[facility] Chest pain 16596748 Active 2022 KYA PRITCHARD NP [address] [place] [address], [address] , [facility] 5 16:44:36 Preinfarc tion syndrome 2486420 Active 2022 Yolande lam, [facility] 4 17:00:48 Coronary arteriosc lerosis 12117781 Active 2023 KYA PRITCHARD NP [address] [place] [address], [address] , [facility] 5 17:10:30 Essential hypertens ion 94756189 Active 2023 KYA PRITCHARD NP [address] [place] [address], [address] , [facility] 5 16:44:21 Hyperchol esterolem ia 42882922 Active 2023 [facility] 4 16:47:54 Abdominal pain 67494912 Active 2023 Eren Oswald PA-C [address] [place] [address], [place], [address] , [facility] 4 13:05:40 Thoracic radiculop athy 39152083 Active 2023 Kimi Mathis APRN, [employer] [address] [place] [address], [place], [address] , [facility] 4 14:46:37 Cervical radiculop athy 58058165 Active 2023 Kimi Mathis APRN, [employer] [address] [place] [address], [place], [address] , [facility] 4 14:46:47 Lumbar spondylos is 778691929 Active 2023 Pauly Vizcaino MD [address] [place] [address], [address] , [facility] 5 14:49:06 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 30783065128 9106 Active 2023 following with endocrino logy Pauly Vizcaino MD [address] [facility], [place], [address] , [facility] 5 14:52:00 Spinal arachnoid cyst 874384184 Active 2023 Pauly Vizcaino MD [address] [facility], [place], [address] , [facility] 5 14:51:11 Morbid obesity 808190330 Active 2024 Pauly Vizcaino MD [address] [place] [address], [address] , [facility] 5 14:50:22 Gastropar esis syndrome 524196252 Active 2024 Pauly Vizcaino MD [address] [place] [address], [address] , [facility] 5 14:53:47 Gastroeso phageal reflux disease 874796498 Active 2024 Pauly Vizcaino MD [address] [place] [address], [address] , [facility] 5 14:53:56 Dyspnea 607808192 Active 2024 Valeria Baugh APRN, [employer] SPECIALIST [address] [place] [address], [address] , [facility] 5 12:14:35 Pain of left shoulder region Active 2024 Pauly Vizcaino MD [address] [place] [address], [address] , [facility] 5 15:11:16 Bilateral cramp of muscle of lower limbs 65750111619 634032 Active 2024 Pauly Vizcaino MD [address] [facility], [address] , [facility] 5 15:12:21 Fibromyal chuck 698913250 Active 2024 Pauly Vizcaino MD [address] , [facility], [address] , [facility] 5 15:19:57 Recurrent major depressio n in remission 65021128 Active 2024 Pauly Vizcaino MD [address] [facility], [facility], [address] , [facility] 5 15:24:34 Primary insomnia 8153232 Active 2024 Pauly Vizcaino MD [address] [facility], [facility], [address] , [facility] 5 15:25:40 Swelling of lower limb 806330623 Active 2024 Pauly Vizcaino MD [address] [facility], [place], [address] , [facility] 5 16:16:03 Palpitati ons 51123041 Active 2024 [facility] 5 16:53:19 Dyspnea on exertion 61154725 Active 2024 KYA PRITCHARD NP [address] [place] [address], [place], [address] , [facility] 5 17:10:27 Hyperlipi demia 72943884 Active 2024 KYA PRITCHARD NP [address] [facility], [place], [address] , [facility] 5 16:44:26 Edema of lower extremity 142172228 Active 2024 KYA PRITCHARD NP [address] [facility], [facility], [address] , [facility] 5 17:34:12 Persisten t depressiv e disorder 8025528798 Active 2024 Melissa Macias PA-C [address] [place] [address], [address] , [facility] 5 11:28:54 Restless legs syndrome 64642119 Active 2024 Melissa Macias PA-C [address] [place] [address], [address] , [facility] 5 11:29:39 Atypical chest pain 269541436 Active 2024 Melissa Macias PA-C [address] [place] [address], [address] , [facility] 5 12:45:48 Anemia 570792995 Active 2024 Valeria Baugh APRN, S[employer] CONTROL SPECIALIST [address] [place] [address], [address] , [facility] 5 12:10:45 Acute kidney injury 51239520 Active 2024 Valeria Baugh APRN, S[employer] CONTR[employer] SPECIALIST [address] [place] [address], [address] , [facility] 5 12:13:44 Mycosis 1456470 Active 2024 Valeria Baugh APRN, S[employer] SPECIALIST [address] [place] [address], [address] , [facility] 5 16:49:11 Obstructi ve sleep apnea syndrome 91733639 Active 2024 Sindhu Pizarro [facility] 5 16:01:58 Acute urinary tract infection 145216524 Active 2024 Lawrence Grigsby [facility] 5 15:43:42 Alpha-1-a ntitrypsi n deficienc y 28515150 Active 2024 Sindhu Pizarro [facility] 5 16:23:34 Supravent ricular tachycard nj 5892714 Active 2024 KYA PRITCHARD, JOSE G [address] [facility], [place], [address] , [facility] 5 16:44:22 Notes:Some problems listed i n Documents: #[id number], #[id number], #[id number] could not be added to this patient's [...] Name and Address Organization Details Recorded Time 0645340 fentanyl medicatio n headache Not available Not available 10/14/20232012 4337 RxNorm React ion: Heada syeda; Nause a; Vomit ing; Comme nt: React ion Date: 23 Aug 2013 Annot ation s: PHILLY STINSON JUVENCIO 10Dec 2012 9:08P M Per pt repor t.; ; Brenda Natarajan [facility] 5 14:41:09 3077594 prochlorp erazine medicatio n anxiety Not available Not available 05/13/20242017 8704 RxNorm Yoli Sauceda [facility] 5 11:23:17 0411493 sumatript an medicatio n itching Not available Not available 05/13/20242017 62583 RxNorm Brenda Natarajan [facility] 5 14:41:28 0352078 metoclopr amide Not available other Not available Not available 05/13/20242022 6915 RxNorm [facility] 5 14:41:18 5747948 diphenhyd ramine hydrochlo ride medicatio n anxiety rash Not available Not available Not available 05/13/20242017 1362 RxNorm Yoli Sauceda [facility] 5 11:23:17 9920718 Duragesic medicatio n headache Not available Not available 06/22/20242012 60825 8 RxNorm React ion: Heada syeda; Nause a; Vomit ing; Comme nt: React ion Date: 23 Aug 2013 Annot ation s: JUVENCIO SIEGEL 2012 9:08P M Per pt repor t.; ; [facility] 5 14:41:05 3842648 Compazine medicatio n other Not available Not available 11/02/2024 15982 6 RxNorm irrit abili ty Brenda Natarajan [facility] 5 14:41:50 4664985 Imdur medicatio n anxiety insomnia Not available Not available [facility] 05/30/2025 36854 2 RxNorm Melissa Macias PA-C [address] [place] [address], [address] [place] [address] 5 10:19:27 485648 Biaxin medicatio n nausea Not available Not available 10/12/20232006 99418 9 RxNorm React ion: Nause a; Not Available [facility] 4 21:45:38 410524 sumatript an succinate medicatio n Not available Not available Not available 10/12/20232006 50667 RxNorm React ion: Short ness of breat h; Arrhy thmia ; Not Available [facility] 4 21:45:39 830930 ciproflox acin hydrochlo ride medicatio n Not available Not available Not available 10/12/20232006 79501 RxNorm React ion: Synco pe; Short ness of breat h; Brenda Natarajan [facility] 5 14:40:56 115043 Demerol medicatio n Not available Not available Not available 10/12/20232008 35156 1 RxNorm Comme nt: Annot ation s: GRUND Y, BRAND ON 2008 3:38P M NAUSE A; ; Brenda Natarajan [facility] 5 14:40:59 950581 morphine sulfate medicatio n Not available Not available Not available 10/12/20232008 85749 RxNorm Comme nt: Annot ation s: GRUND Y, BRAND ON 2008 3:39P M NAUSE A; ; Brenda Natarajan [facility] 5 14:41:15 975486 hydromorp basim hydrochlo ride medicatio n Not available Not available Not available 10/12/20232008 15026 7 RxNorm Comme nt: Annot ation s: GRUND Y, BRAND ON 2008 3:39P M NAUSE A; ; Brenda Natarajan [facility] 5 14:41:12 Medications Name Sig Start [...] 75 mg capsule,ex tended release 24 hr take 1 capsule daily along with the 150mg for a total of 225mg daily active Not Available Not Available No t Available carvedilol 12.5 mg tablet TAKE ONE TABLET TWICE DAILY active Not Available Not Available No t Available clindamyci n HCl 300 mg capsule TAKE ONE CAPSULE EVERY 6 HOURS UNTIL GONE 05/30 completed Not Available Not Available Not Available citalopram 40 mg tablet TAKE ONE TABLET BY MOUTH DAILY 05/30 completed Not Available Not Available Not Available loperamide 2 mg capsule TAKE ONE CAPSULE FOUR TIMES DAILY NEEDED FOR DIARRHEA active Not Available Not Available No t [...] MOUTH EVERY 6 HOURS NEEDED FOR PAIN for up to 12 doses active Not Available Not Available No t Available sucralfate 1 gram tablet TAKE ONE [...] mg capsule,ex tended release 24 hr take 1 capsule by mouth daily along with 75mg for total of 225mg daily active Not Available Not Available No t Available promethazi ne 6.25 mg-codeine 10 mg/5 mL [...] cephalexin 500 mg capsule TAKE ONE CAPSULE FOUR TIMES DAILY UNTIL GONE active Not Available Not Available No t Available pantoprazo le 40 mg tablet,del ayed [...] dissolve 1 tablet on the tongue every 8 hours as needed for nausea active Not [...] or 140 mg/mL subcutaneo us auto-injec tor inject 140mg subcutan eous once monthly active Not Available Not Available No t Available Ubrelvy 100 mg tablet 05/09 completed Not Available Not Available Not Available Dexcom G7 Photoengraving Printer USE PER MANUFACT URER DIRECTIO NS active Not Available Not Available No t Available Dexcom G7 Sensor device CHANGE SENSOR EVERY 10 DAYS PER MANUFACT URER 2024 active Not Available Not Available Not Avai lable Omnipod 5 G6-G7 Pods (Gen 5) subcutaneo [...] Updated DateTime 5 170.18 cm 42.6 kg/m2 590056. 12 g 18 /min 98 [degF] 71 /min 98 % 98 % 112/60 mm[Hg] Jeaneth adrian [facility] 5 16:26:31 Date Recorded Body height Body mass index (BMI) Body weight Heart rate Respiratory rate Oxygen saturation Oxygen saturation in Arterial blood by Pulse oximetry Systolic And Diastolic Provider Name and Address Organization Details Last Updated DateTime 5 170.18 cm 41.7 kg/m2 221176. 57 g 77 /min 14 /min 97 % 97 % 130/62 mm[Hg] Yoli Sauceda [facility] 5 09:55:15 Date Recorded Body height Body mass index (BMI) Body weight Heart rate Oxygen saturation Oxygen saturation in Arterial blood by Pulse oximetry Systolic And Diastolic Provider Name and Address Organization Details Last Updated DateTime 5 170.18 cm 42.7 kg/m2 649088. 28 g 91 /min 96 % 96 % 150/82 mm[Hg] Kate Jolly [facility] 5 15:47:28 Date Recorded Body height Body mass index (BMI) Body weight Heart rate Systolic And Diastolic Provider Name and Address Organization Details Last Updated DateTime 06/07/2025 170.18 cm 42.4 kg/m2 748321.5 3 g 92 /min 126/64 mm[Hg] Lawrence Grigsby [facility] 06/07/2025 15:10:01 Date Recorded Body height Heart rate Oxygen saturation Oxygen saturation in Arterial blood by Pulse oximetry Body mass index (BMI) Body weight Systolic And Diastolic Provider Name and Address Organization Details Last Updated DateTime 170.18 cm 76 /min 97 % 97 % 42.9 kg/m2 671245. 31 g 114/62 mm[Hg] Audrey Tirado [facility] 16:04:15 Date Recorded Body height Body mass index (BMI) Body weight Heart rate Respiratory rate Oxygen saturation Oxygen saturation in Arterial blood by Pulse oximetry Systolic And Diastolic Provider Name and Address Organization Details Last Updated DateTime 170.18 cm 42.6 kg/m2 221321. 12 g 77 /min 16 /min 96 % 96 % 128/64 mm[Hg] Yoli Sauceda [facility] 11:22:40 Social History Question Answer [...] Do You Have A Medical Power Of Rn Internal Medicine? Yes [email or web address] Information not available 06/13/2024 What Was The Date Of Your Most Recent Tobacco Screening? 07/04/2025 Information not available 07/04/2025 What Is Your Relationship Status? [email or web address] Information not available 06/13/2024 Has Tobacco Cessation Counseling Been Provided? Yes Information not available 03/28/2025 On What Date Was Tobacco Cessation Counseling Provided? 03/28/2025 [email or web address] Information not available 03/28/2025 Sex: Unknown Functional [...] Y Arthritis Y Hyperlipidemia Y Cancer Y Stroke N Thyroid Problems N Asthma Y Depression Y COPD N Anemia Y Seizures N Heart Disease Y [...] recombinant, quadrivalent, PF 1 completed Brenda Deraser [facility] 11/02/2024 14:40:15 Influenza, recombinant, quadrivalent, PF 0 completed Brenda Deraser [facility] 11/02/2024 14:40:15 zoster recombinant 1 completed Brenda Natarajan [facility] 11/02/2024 14:40:15 zoster recombinant 1 completed Brenda Natarajan [facility] 11/02/2024 14:40:15 COVID-19, mRNA, LNP-S, PF, 100 mcg/0.5mL dose or 50 mcg/0.25mL dose 1 completed Brenda Natarajan [facility] 11/02/2024 14:40:15 COVID-19, mRNA, LNP-S, PF, 100 mcg/0.5mL dose or 50 mcg/0.25mL dose 1 completed Brenda Natarajan [facility] 11/02/2024 14:40:15 COVID-19, mRNA, LNP-S, PF, 100 mcg/0.5mL dose or 50 mcg/0.25mL dose 1 completed Brenda Deraser [facility] 11/02/2024 14:40:15 pneumococcal polysaccharide PPV23 1 completed Brenda Natarajan [facility] 11/02/2024 14:40:15 influenza, unspecified formulation 4 completed Brenda Natarajan [facility] 11/02/2024 14:40:15 influenza, unspecified formulation 4 completed Brenda Deraser [facility], [facility] 11/02/2024 14:40:15 influenza, unspecified formulation 3 completed Brenda Natarajan null, [facility] 11/02/2024 14:40:15 Tdap 7 completed Brendaaraseli Deraser null, [facility] 11/02/2024 14:40:15 Influenza, split virus, trivalent, preservative 1 completed Brenda Deraser null, [facility] 11/02/2024 14:40:15 Influenza, split virus, quadrivalent, PF 7 completed Brendaaraseli Deraser [facility] 11/02/2024 14:40:15 Past Encounters Encounter ID Performer Location Encounter Start Date Encounter Closed Date Diagnosis/Indication Diagnosis SNOMED-CT Code Diagnosis ICD10 Code Diagnosis IMO Codes Diagnosis Note [id number] Drake Mcneal MD [facility] ([facility] [address] [place] [address] 05/17/2024 13:49:24 05/17/2024 14:46:03 Chest pain 41850193 R07.9 [id number] Eren Oswald PA-C [address] [facility] ([place]) [address] [place] [address] 06/15/2024 14:10:45 06/15/2024 16:32:35 Abdominal pain 73259279 R10.9 Type 2 osmin betes mellitus 50814900 E11.9 Coronary arteriosclerosis 25243680 I25.10 [id number] Stacey ahmadi MD [address] [facility] ([place]) [address] [place] [address] 06/21/2024 12:42:22 06/21/2024 16:39:19 Thoracic radiculopathy 32098621 M54.14 Cervical radiculopathy 53417620 M54.12 Lumbar spondylosis 23003 0009 M47.896 [id number] Tiffanie Painting APN [facility] ([place]) [address] [place] [address] 07/05/2024 14:39:55 07/05/2024 15:35:42 Neuropathy due to type 2 diabetes mellitus 9459983671 01182 E11.40 Z79.4 48412812 [id number] Stacey ahmadi MD [address] [facility] ([place]) [address] [place] [address] 08/04/2024 12:16:15 08/04/2024 14:29:11 Spinal arachnoid cyst 658095671 G96.198 74096646 [id number] Ned [facility] ([place] [address] [place] [address] 08/04/2024 15:26:47 08/04/2024 16:07:31 Type 2 diabetes mellitus 56167640 E11.9 Patient was seen in office for [...] ing of today's education and discussion . [id number] Ned [facility] ([place]) [address] [place] [address] 08/29/2024 14:23:40 08/29/2024 16:23:00 Type 2 diabetes mellitus 20194055 E11.9 Patient came in today for Omnipod [...] then, patient had no questions or concerns. [id number] Pauly Vizcaino MD [facility] ([place]) [address] [place] [address] 11/02/2024 14:29:38 11/02/2024 15:23:49 Screening mammography 08771981 Z12.31 90290262 History an d physical examination, annual for health maintenance 06593010 Z00.00 1220115 First enco unter by subject 736817965 Z76.89 58482424 Coronary arteriosclerosis 20524958 I25.10 Essential hypertension 09852842 I10 Morbid obesity 889122024 E66.01 46252 Neuropathy due to type 2 diabetes mellitus 5711835469 50418 E11.40 Z79.4 17243290 Spinal arachnoid cyst 25 4584764 G96.198 93238637 Lumbar spondylosis 88678 0009 M47.896 Hypercholesterolemia 136 90748 E78.00 Gastroesop hageal reflux disease 186640315 K21.9 39128653 Dyspnea 226376347 R06.02 67736 Gastropare sis syndrome 690560988 K31.84 571261 Pain of le ft shoulder region 4167005399 M25.512 20810037 Bilateral cramp of muscle of lower limbs 2085556713 2349190 R25.2 18732328 Fibromyalgia 280889152 M 79.7 75831 History of asthma 561302 007 Z87.09 854385 Recurrent major depression in remission 93358636 F33.40 1048983 Primary insomnia 0170378 F51.01 54946 [id number] Pauly Vizcaino MD [facility] ([place]) [address] [place] [address] 12/01/2024 15:54:07 12/01/2024 17:05:19 Dyspnea 784924564 R06.02 49218 Swelling o f lower limb 051659221 M79.89 539449 [id number] Valeria Baugh APRN, [facility] ([place]) [address] [place] [address] 01/19/2025 11:51:35 01/19/2025 12:27:12 Preprocedural examination done 7850614808 77318 Z01.818 812459 Essential hypertension 56904465 I10 stable Coronary arteriosclerosis 85093376 I25.10 Neuropathy due to type 2 diabetes mellitus 0912150229 E11.40 Z79.4 59911469 [id number] LE[facility]OR [facility] ([place]) [address] [place] [address] 03/10/2025 11:32:45 03/10/2025 12:00:56 Neuropathy due to type 2 diabetes mellitus 6774452036 00617 E11.40 Z79.4 31245988 [id number] Melissa Macias PA-C [facility] ([place]) [address] [place] [address] 03/28/2025 10:36:47 05/02/2025 10:01:03 Persistent depressive disorder 0221968899 F34.1 62640953 also anxiety and helps with hot flashes Restless l egs syndrome 80864653 G25.81 03007 Atypical chest pain 1025 84469 R07.89 662341 Hypertensive disorder 38 001196 I10 [id number] Melissa Macias PA-C [facility] ([place]) [address] [place] [address] 04/11/2025 09:16:47 04/11/2025 11:19:07 Primary insomnia 3837104 F51.01 87743 History of migraine 1614 25733 Z86.69 8141374 [id number] Valeria Baugh APRN, CNP [facility] ([place]) [address] [place] [address] 04/20/2025 11:18:43 04/20/2025 15:31:32 Anemia 573415368 D64.9 6860938652 Acute kidney injury 1466 9001 N17.9 6511874 Bilateral cramp of muscle of lower limbs 0095677143 9680816 R25.2 34230702 Dyspnea 338303832 R06.00 85807424 [id number] Valeria Baugh APRN, CNP [facility] ([place]) [address] [place] [address] 04/28/2025 16:03:43 04/28/2025 17:55:49 Acute kidney injury 32021602 N17.9 0270666 Mycosis 1171917 B37.9 [id number] Post-disch arge follow-up [id number] Z09 [id number] Bilateral cramp of muscle of lower limbs [id number] R25.2 [id number] Hypercholesterolemia 136 78256 E78.00 [id number] Melissa Macias PA-C [facility] ([place]) [address] [place] [address] 05/30/2025 09:44:32 05/30/2025 14:35:57 Primary insomnia 4615336 F51.01 15849 Dyspnea on exertion 6084 5006 R06.09 378848 Fibromyalgia 636733386 M 79.7 51467 Pain of le ft shoulder region 9794397847 M25.512 [id number] Migraine 07447973 G43.90 9 Obstructiv e sleep apnea syndrome 91037781 G47.33 [id number] Carrol Villagomez MD [facility] ([place]) [address] [facility],2nd [place] [address] 06/05/2025 15:41:18 06/05/2025 16:01:50 Dyspnea 142914571 R06.02 R06.00 60243 [id number] Uncertain as to the etiology of her [...] results of the CT scan performed at [facility] this past spring. Addendum, CTA of the chest from 06/03/2024 at [facility] showed unremarkab le pulmonary findings. She has some scattered linear atelectasi s, no consolidat ion, nodule or fluid. No mediastina l or hilar adenopathy . There was significan t coronary artery disease noted on that study. Obstructiv e sleep apnea syndrome 49028901 G47.33 41364 She has a longstandi ng history of sleep apnea diagnosed about 20 years ago down in [place] at an unknown institutio n. Is not on any treatment at this time. I do suspect she does have significan t sleep apnea that is contributi ng to her symptomato logy and we will get her worked up with a split-nigh t sleep study and trial PAP if positive. [id number] SADE Garcia[address] Nephrolog y ([place]) [address] [facility],[address] [place] [address] 06/07/2025 14:55:39 06/07/2025 17:49:29 Acute kidney injury 83383355 N17.9 [id number] Melissa Macias PA-C [facility] ([place]) [address] [place] [address] 07/04/2025 11:15:12 07/04/2025 12:20:08 Primary insomnia 4678617 F51.01 Persistent depressive disorder 7818933182 F34.1 also anxiety and helps with hot flashes Migraine 91868180 G43.90 9 Recurrent major depression in remission 07853121 F33.40 7709799 Hypertensive disorder 38 082280 I10 Health Concerns Section Related Observation LastModified by Organization Detai ls LastModified Time None Recorded Concern Status LastModified by Organization Details LastModified Time None Recorded Advance Directives Directive Y: Payers Insurance Date Sequence Insurance Name Policy Number Policy Garcia Covered Member ID Garcia Member ID Guarantor Name 06/15/2025 1 [facility] (O) [id number] Leti Salgado Rice [id number] Leti Salgado Rice 03/22/2024 1 *SELF PAY* Isidro White 07/16/2025 2 [place] [facility] Leti White [id number] Leti Salgado Rice 06/15/2025 1 [place] Leti White [id number] Leti P Rice 07/21/2025 1 [facility] (MEDICARE REPLACEMENT/A DVANTAGE - PPO) [id number] Leti P Rice [id number] Leti White Notes Date Note Type Note Provider Name and Address Organization Details Recorded Time 5 text/html ROS as noted in the HPI pt here today for T[facility] [place]. 04/12/25-04/19/25.Dx cellulitis to buttocks and muscle cramps/ [...] itching and mild white discharge. Valeria Baugh, WATER TREATMENT SPECIALIST, SENIOR LOSS CONTROL SPECIALIST [address] [place] [address], [phone], [facility] 05/03/2025 10:13:46 5 text/html Leti Gallego a 54 year oldfemalepresenting for care. Date of last pap smear:09/18/2021ate of last mammogram:04/28/2022 Patient here for follow up for ER visits. Patient has not been sleeping. Patient has been awake since 8 am yesterday currently. Patient only slept 4 1/2 hours from Thursday to Thursday.-hasn't had chest pain for a couple of days-UTI cleared [id number] woman presents for follow-up of severe insomnia [...] (no dysuria, urgency, frequency). Melissa Macias PA-C [facility], [address], [facility] 05/30/2025 13:52:29 5 text/html 54-year-old who comes into pulmonary clinic for evaluation of shortness of breath. She carries a diagnosis of asthma for since her teenage years. She also has a diagnosis of GELACIO. She has not been on a CPAP machine for about 20 years when her sleep apnea was first diagnosed when she was living in [place]. The patient has been hospitalized multiple times for chest pain and shortness of breath. She is was at [facility] multiple times this past spring and did [...] has COPD Carrol Villagomez MD [address] [place] [address], [phone], [facility] 06/07/2025 13:51:55 5 text/html ROS as noted in the HPI Ms. 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 Delia Hall PA-C [address] [place] [address], [phone], [facility] 06/07/2025 16:14:26 5 text/html Patient here for follow up after starting [id number] female presents for follow-up on mood, sleep, [...] feeling well. Melissa Macias PA-C [address] [facility], [place], [address], [facility] 07/04/2025 12:17:39 OBGyn Episode No OBEpisode recorded.
[2025-07-21 16:10] VITALS: BP 179/80; PULSE 89; RESP 16; TEMP 36.3; O2SAT 99
--- OUTSIDE RECORDS SUMMARY | 2025-07-21 16:12 | XMS_ITS ---
Author Organization Unknown Address [address] [place] [phone] Phone Care Team Providers Care Office Support Associate Name Role Phone KEHINDE HERON Hussein Attending Unavailable CARRILLO COATS Primary Unavailable Social History Type Status Start Date End Date Code Code Syst em Smoking History Never smoker (Never Smoked) 931634431 SNOMED CT Sex Female Vital Signs Vital Sign Value Unit [place] Value [place] Unit Date/Time Recent/Initial? Code Code System Body Mass Index 42.69 kg/m2 06/19/2025 20:12 Initial 72299 -5 LOINC Systolic Blood Pressure 165 mm[Hg] 06/19/2025 21:41 Most Recent 8480- 6 LOINC Diastolic Blood Pressure 91 mm[Hg] 06/19/2025 21:41 Most Recent 8462- 4 LOINC Systolic Blood Pressure 131 mm[Hg] 06/19/2025 20:12 Initial 8480- 6 LOINC Diastolic Blood Pressure 82 mm[Hg] 06/19/2025 20:12 Initial 8462- 4 LOINC Body Surface Area 2.42 m2 06/19/2025 20:12 Initial 3140- 1 LOINC Height 170.180 0 cm 67.00 in 06/19/2025 20:12 Initial 8302- 2 LOINC O2 Saturation 95 % 2024 21:41 Most Recent 20467 -5 LOINC O2 Saturation 98 % 2024 01:29 Initial 86632 -5 LOINC Pulse 88.0 /min 06/19/2025 21:41 Most Recent 8867- 4 LOINC Pulse 88.0 /min 06/19/2025 01:29 Initial 8867- 4 LOINC Respiration 22 /min 06/19/20 21:41 Most Recent 9279- 1 LOINC Respiration 20 /min 06/19/20 01:29 Initial 9279- 1 [facility] Temperature 36.8 Alexandrea 98.3 F 06/19/20 20:12 Initial 8310- 5 [facility] Weight 123.65 kg 272.60 lbs 06/19/2025 20:12 Initial 29356 -7 [facility] Medications Medication Start Date End Date Route Frequency Dose Code Code System Medication Instructions Home Meds Zofran 4MG Oral Tablet 05/03/2025 Unknown ORAL EVERY 6 HOURS 1 TABLET 346071 RxNorm TAKE 1 TABLET ORAL EVERY 6 [...] Code Code System CHRONIC NECK PAIN active 763777848899 7 SNOMED-CT DISORDER OF ROTATOR CUFF active 332288572 SNOMED-CT SPRAIN OF LEFT SHOULDER active 14145061140443890 SNOMED-CT CHRONIC BACK PAIN active 101496137 SN OMED-CT CHRONIC MIGRAINE active 980113920 SNO MED-CT DIABETES active 64760062 SNOMED-CT GASTROPARESES active 855048482 SNOMED -CT ERIKA CELL NEOPLASM active 548520868 SNOMED-CT HYPERTENSION active 73682331 SNOMED- CT DRUG SEEKING BEHAVIOR active 31074184 SNOMED-CT MALINGERING active 13600363 SNOMED-C 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 10/24/2024 resolved 22920328 SNOMED-CT Allergies and Adverse Reactions Allergy Substance Reaction Severity Start Date Concern Status Code Code System PROCHLORPERAZINE go crazy (SNOMED-CT: null) Severe Active 8704 RxNorm ISOSORBIDE MONONITRATE SOB, anxiety (SNOMED-CT: null) Active 42115 RxNorm CLARITHROMYCIN Vomiting (SNOMED-CT: 164809270) Severe Active 00123 RxNorm BENADRYL went crazy (SNOMED-CT: null) Severe Active 728869 RxNorm IMITREX Tachycardia (SNOMED-CT: 1024702) Moderate Active 936207 RxNorm Plan of Treatment No Data Found Encounters Encounter Diagnosis Start Date Code Code Sys tem Migraine, unspecified, not i ntractable, without status migrainosus 06/19/2025 SNOMED-CT Personal Care Team Section
--- OUTSIDE RECORDS SUMMARY | 2025-07-21 16:12 | XMS_ITS ---
Author Organization Unknown Address [address] [place] [address] [phone] Phone Care Team Providers Care Hammer Shop Supervisor Name Role Phone DEBORAH GARCIA Registered Nurse Unavailable COLBY JONES Attending Unavailable CARRILLO COATS Primary Unavailable Social History Type Status Start Date End Date Code Code Syst em Smoking History Never smoker (Never Smoked) 972436896 SNOMED CT Sex Female Vital Signs Vital Sign Value Unit [place] Value [place] Unit Date/Time Recent/Initial? Code Code System Body Mass Index 42.38 kg/m2 07/11/2025 15:20 Initial 61642 -5 LOINC Systolic Blood Pressure 119 mm[Hg] 07/11/2025 18:50 Most Recent 8480- 6 LOINC Diastolic Blood Pressure 53 mm[Hg] 07/11/2025 18:50 Most Recent 8462- 4 LOINC Systolic Blood Pressure 158 mm[Hg] 07/11/2025 15:20 Initial 8480- 6 LOINC Diastolic Blood Pressure 94 mm[Hg] 07/11/2025 15:20 Initial 8462- 4 LOINC Body Surface Area 2.41 m2 07/11/2025 15:20 Initial 3140- 1 LOINC Height 170.180 0 cm 67.00 in 07/11/2025 15:20 Initial 8302- 2 LOINC O2 Saturation 98 % 2024 15:20 Initial 21787 -5 LOINC Pulse 81.0 /min 07/11/2025 18:50 Most Recent 8867- 4 LOINC Pulse 84.0 /min 07/11/2025 15:20 Initial 8867- 4 LOINC Respiration 20 /min 07/11/20 18:50 Most Recent 9279- 1 LOINC Respiration 20 /min 07/11/20 15:20 Initial 9279- 1 LOINC Temperature 37.1 Alexandrea 98.7 F 07/11/20 15:20 Initial 8310- 5 [facility] Weight 122.74 kg 270.60 lbs 07/11/2025 15:20 Initial 06679 -7 [facility] Medications Medication Start Date End Date Route Frequency Dose Code Code System Medication Instructions Home Meds Zofran 4MG Oral Tablet 05/03/2025 Unknown ORAL EVERY 6 HOURS 1 TABLET 465371 RxNorm TAKE 1 TABLET ORAL EVERY 6 [...] Code Code System CHRONIC NECK PAIN active 124248976678 7 SNOMED-CT DISORDER OF ROTATOR CUFF active 493704476 SNOMED-CT SPRAIN OF LEFT SHOULDER active 32184071671364724 SNOMED-CT CHRONIC BACK PAIN active 239689877 SN OMED-CT CHRONIC MIGRAINE active 266079008 SNO MED-CT DIABETES active 75374862 SNOMED-CT GASTROPARESES active 776666829 SNOMED -CT ERIKA CELL NEOPLASM active 668576145 SNOMED-CT HYPERTENSION active 49261147 SNOMED- CT DRUG SEEKING BEHAVIOR active 14268197 SNOMED-CT MALINGERING active 67555366 SNOMED-C 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 10/24/2024 resolved 61331835 SNOMED-CT Allergies and Adverse Reactions Allergy Substance Reaction Severity Start Date Concern Status Code Code System PROCHLORPERAZINE go crazy (SNOMED-CT: null) Severe Active 8704 RxNorm ISOSORBIDE MONONITRATE SOB, anxiety (SNOMED-CT: null) Active 81063 RxNorm CLARITHROMYCIN Vomiting (SNOMED-CT: 038279129) Severe Active 16503 RxNorm BENADRYL went crazy (SNOMED-CT: null) Severe Active 003180 RxNorm IMITREX Tachycardia (SNOMED-CT: 5154401) Moderate Active 639751 RxNorm Plan of Treatment No Data Found Encounters Encounter Diagnosis Start Date Code Code Sys tem Migraine, unspecified, not i ntractable, without status migrainosus 07/11/2025 SNOMED-CT Personal Care Team Section
--- OUTSIDE RECORDS SUMMARY | 2025-07-21 16:13 | XMS_ITS ---
Author Organization Unknown Address [address] [place] [phone] Phone Care Team Providers Care Horse Racing Manager Name Role Phone DEBORAH GARCIA Registered Nurse Unavailable YRN ZEPEDA Attending Unavailable PINKY Kyle Primary Unavailable Social History Type Status Start Date End Date Code Code Syst em Smoking History Never smoker (Never Smoked) 979421067 SNOMED CT Sex Female Vital Signs Vital Sign Value Unit [place] Value [place] Unit Date/Time Recent/Initial? Code Code System Systolic Blood Pressure 117 mm[Hg] 01/06/2025 17:55 Most Recent 8480-6 LOINC Diastolic Blood Pressure 84 mm[Hg] 01/06/2025 17:55 Most Recent 8462-4 LOINC Systolic Blood Pressure 145 mm[Hg] 01/06/2025 17:19 Initial 8480-6 LOINC Diastolic Blood Pressure 75 mm[Hg] 01/06/2025 17:19 Initial 8462-4 LOINC O2 Saturation 98 % 2024 17:55 Most Recent 83499- 5 LOINC O2 Saturation 94 % 2024 17:19 Initial 11938- 5 LOINC Pulse 63.0 /min 01/06/2025 17:55 Most Recent 8867-4 LOINC Pulse 62.0 /min 01/06/2025 17:19 Initial 8867-4 LOINC Respiration 20 /min 01/07/20 17:55 Most Recent 9279-1 LOINC Respiration 18 /min 01/07/20 17:19 Initial 9279-1 LOINC Temperature 36.8 Alexandrea 98.2 F 01/07/20 17:19 Initial 8310-5 LOINC Medications Medication Start Date End Date Route Frequency Dose Code Code System Medication Instructions Home Meds Lidoderm 5% Topical application Patch, Extended Release 11/02/2024 02/28/2025 1 8648319 RxNorm 1 patch daily Zofran 4MG Oral Tablet 05/03/2025 Unknown ORAL EVERY 6 HOURS 1 TABLET 560515 RxNorm TAKE 1 TABLET ORAL EVERY 6 [...] Code Code System CHRONIC NECK PAIN active 551731405655 7 SNOMED-CT DISORDER OF ROTATOR CUFF active 178158655 SNOMED-CT SPRAIN OF LEFT SHOULDER active 85205701421674397 SNOMED-CT CHRONIC BACK PAIN active 858802261 SN OMED-CT CHRONIC MIGRAINE active 131376028 SNO MED-CT DIABETES active 06664742 SNOMED-CT GASTROPARESES active 146770355 SNOMED -CT ERIKA CELL NEOPLASM active 881372872 SNOMED-CT HYPERTENSION active 95832996 SNOMED- CT DRUG SEEKING BEHAVIOR active 79068394 SNOMED-CT MALINGERING active 03262349 SNOMED-C 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 10/24/2024 resolved 46910087 SNOMED-CT Allergies and Adverse Reactions Allergy Substance Reaction Severity Start Date Concern Status Code Code System PROCHLORPERAZINE go crazy (SNOMED-CT: null) Severe Active 8704 RxNorm ISOSORBIDE MONONITRATE SOB, anxiety (SNOMED-CT: null) Active 72422 RxNorm CLARITHROMYCIN Vomiting (SNOMED-CT: 794519747) Severe Active 84993 RxNorm BENADRYL went crazy (SNOMED-CT: null) Severe Active 596088 RxNorm IMITREX Tachycardia (SNOMED-CT: 0681368) Moderate Active 517939 RxNorm Plan of Treatment No Data Found Encounters Encounter Diagnosis Start Date Code Code Sys tem Neck pain 01/06/2025 51704611 SNOMED-CT Personal Care Team Section
--- OUTSIDE RECORDS SUMMARY | 2025-07-21 16:13 | XMS_ITS ---
Author Organization Unknown Address [address] [place] [address] [phone] Phone Care Team Providers Care Superintendent Institution Name Role Phone COLBY SHADI JONES Attending Unavailable CARRILLO COATS Primary Unavailable Social History Type Status Start Date End Date Code Code Syst em Smoking History Never smoker (Never Smoked) 641924069 SNOMED CT Sex Female Vital Signs Vital Sign Value Unit [place] Value [place] Unit Date/Time Recent/Initial? Code Code System Body Mass Index 41.66 kg/m2 05/31/2025 19:33 Initial 47909 -5 LOINC Systolic Blood Pressure 135 mm[Hg] 05/31/2025 20:43 Most Recent 8480- 6 LOINC Diastolic Blood Pressure 65 mm[Hg] 05/31/2025 20:43 Most Recent 8462- 4 LOINC Systolic Blood Pressure 152 mm[Hg] 05/31/2025 19:33 Initial 8480- 6 LOINC Diastolic Blood Pressure 104 mm[Hg] 05/31/2025 19:33 Initial 8462- 4 LOINC Body Surface Area 2.39 m2 05/31/2025 19:33 Initial 3140- 1 LOINC Height 170.180 0 cm 67.00 in 05/31/2025 19:33 Initial 8302- 2 LOINC O2 Saturation 95 % 2024 20:43 Most Recent 23043 -5 LOINC O2 Saturation 97 % 2024 19:33 Initial 32895 -5 LOINC Pulse 85.0 /min 05/31/2025 20:43 Most Recent 8867- 4 LOINC Pulse 92.0 /min 05/31/2025 19:33 Initial 8867- 4 LOINC Respiration 17 /min 05/31/20 20:43 Most Recent 9279- 1 LOINC Respiration 20 /min 05/31/20 19:33 Initial 9279- 1 [facility] Temperature 36.8 Alexandrea 98.2 F 05/31/20 19:33 Initial 8310- 5 [facility] Weight 120.66 kg 266.00 lbs 05/31/2025 19:33 Initial 70176 -7 [facility] Medications Medication Start Date End Date Route Frequency Dose Code Code System Medication Instructions Home Meds Zofran 4MG Oral Tablet 05/03/2025 Unknown ORAL EVERY 6 HOURS 1 TABLET 248453 RxNorm TAKE 1 TABLET ORAL EVERY 6 [...] Code Code System CHRONIC NECK PAIN active 049140565194 7 SNOMED-CT DISORDER OF ROTATOR CUFF active 552634305 SNOMED-CT SPRAIN OF LEFT SHOULDER active 18976462262161659 SNOMED-CT CHRONIC BACK PAIN active 767384348 SN OMED-CT CHRONIC MIGRAINE active 187074273 SNO MED-CT DIABETES active 47432590 SNOMED-CT GASTROPARESES active 198100170 SNOMED -CT ERIKA CELL NEOPLASM active 033528724 SNOMED-CT HYPERTENSION active 73970062 SNOMED- CT DRUG SEEKING BEHAVIOR active 17997778 SNOMED-CT MALINGERING active 47458375 SNOMED-C 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 10/24/2024 resolved 15194978 SNOMED-CT Allergies and Adverse Reactions Allergy Substance Reaction Severity Start Date Concern Status Code Code System PROCHLORPERAZINE go crazy (SNOMED-CT: null) Severe Active 8704 RxNorm ISOSORBIDE MONONITRATE SOB, anxiety (SNOMED-CT: null) Active 34806 RxNorm CLARITHROMYCIN Vomiting (SNOMED-CT: 738922532) Severe Active 41928 RxNorm BENADRYL went crazy (SNOMED-CT: null) Severe Active 323479 RxNorm IMITREX Tachycardia (SNOMED-CT: 5755922) Moderate Active 291780 RxNorm Plan of Treatment No Data Found Encounters Encounter Diagnosis Start Date Code Code Sys tem Migraine, unspecified, not i ntractable, without status migrainosus 05/31/2025 SNOMED-CT Personal Care Team Section
--- NOTE | 2025-07-21 18:04 | ED.ABDPAIN ---
HPI - Abdominal Pain General Chief Complaint: Abdominal Pain <SADE Allen Last Filed: 07/21/25 18:09> Stated Complaint: ABD PAIN X2D <SADE Allen Last Filed: 07/21/25 18:09> Time Seen by Provider: 07/21/25 18:04 <SADE Allen Last Filed: 07/21/25 18:09> Focused HPI: Patient is a 54 y/o female, with Hx of cholecystectomy, appendectomy, who presents to the ED with c/o ABD pain. Patient reports having pain throughout her lower abdomen, into her R sided abdomen, radiates around to R mid back. Pain began on Thursday, has been worsening. Pain worse with eating. Tried taking a [place] today but was unable to keep this down. Reports N/V/D. Denies dysuria/hematuria. Denies fever. GENERAL: Well-appearing, morbidly obese with BMI of 42.5, and in no acute distress. HEAD: Normocephalic, atraumatic. CHEST: Clear to auscultation. ?No respiratory distress. HEART: Regular rate and rhythm.? ABD: TTP in LLQ, suprapubic region, R mid abdomen. Normoactive BS NEURO: ?Alert and oriented x3. Patient screened in triage and initial orders placed.? ?Additional care and disposition to be based upon?diagnostic testing and treatment. <SADE Allen Last Filed: 07/21/25 18:09> Source: patient <SADE Allen Last Filed: 07/21/25 18:09> Mode of arrival: ambulatory <SADE Allen Last Filed: 07/21/25 18:09> Limitations: no limitations <SADE Allen Last Filed: 07/21/25 18:09> History of Present Illness HPI narrative: Agree with above HPI. <GUILLERMO Zaman Last Filed: 07/22/25 02:58> Related Data Home Medications: Home Medications ?Medication ?Instructions ?Recorded ?Confirmed ?Last Taken ?Type amlodipine 5 mg tablet 5 mg PO DAILY@79905/13/25 06/02/25 Unknown History atorvastatin 80 mg tablet 80 mg PO DAILY@79905/13/25 06/02/25 Unknown History blood-glucose sensor (Dexcom G7 05/13/25 05/13/25 Unknown History Sensor device) carvedilol 12.5 mg tablet 12.5 mg PO BID 05/13/25 06/02/25 05/13/25 09:30 History 12.5 mg dicyclomine 20 mg tablet 20 mg PO BID 05/13/25 06/02/25 05/13/25 09:30 History 20 mg erenumab-aooe 70 mg/mL 70 mg subcut MONTHLY 05/13/25 06/02/25 04/23/25 History subcutaneous auto-injector (Aimovig Autoinjector) hydroxyzine HCl 25 mg tablet 25 mg PO HS 05/13/25 06/02/25 05/12/25 22:30 History 50 mg insulin lispro 100 unit/mL 1 sliding scale dose continuous 05/13/25 06/02/25 05/13/25 18:50 History subcutaneous solution (Humalog subcutaneous infusion PRN PRN 6.3 U-100 Insulin) hyperglycemia insulin pump cart,auto,BT,G6/7 05/13/25 05/13/25 Unknown History (Omnipod 5 G6-G7 Pods (Gen 5) subcutaneous cartridge) methocarbamol 500 mg tablet 500 mg PO HS 05/13/25 06/02/25 05/12/25 22:30 History 500 mg pantoprazole 40 mg tablet,delayed 40 mg PO HS 05/13/25 06/02/25 05/12/25 22:30 History release 40 mg ropinirole 0.25 mg tablet 0.75 mg PO HS PRN restless leg(s) 05/13/25 06/02/25 05/08/25 22:00 History 0.75 mg venlafaxine 150 mg 150 mg PO QPM 05/13/25 06/02/25 05/12/25 22:30 History capsule,extended release 24 hr 150 mg <Marisol Swenson PA-C - Last Filed: 07/21/25 18:09> Allergies/Adverse Reactions: Allergies Allergy/AdvReac Type Severity Reaction Status Date / Time prochlorperazine Allergy Intermediate Agitated Verified 07/21/25 21:37 clarithromycin Allergy Mild VIOLENTLY Verified 07/21/25 21:37 ILL WITH VOMITING sumatriptan Allergy Mild POUNDING Verified 07/21/25 21:37 HR, DIFFICULTY BREATHING metoclopramide AdvReac Intermediate Jittery Verified 07/21/25 21:37 diphenhydramine AdvReac Unknown GOES Verified 07/21/25 21:37 CRAZY <Marisol Swenson PA-C - Last Filed: 07/21/25 18:09> Review of Systems Review of Systems: All systems reviewed & are unremarkable except as noted in HPI and below <GUILLERMO Zaman Last Filed: 07/22/25 02:58> [facility] Past Medical History Medical History: Medical History Jean Claude cell tumor Diabetes mellitus Hypertension Arthritis Asthma <SADE Allen Last Filed: 07/21/25 18:09> Surgical History Surgical History: Surgical History H/O cardiac catheterization <SADE Allen Last Filed: 07/21/25 18:09> Social History Social History: Social History Smokeless tobacco user: snus Alcohol intake: never Lack of Transportation: No Lack of Food: Never True Current Housing: I Have Housing Concerned About Future Housing: No Difficulty Paying Gas/Electric Bills: No Difficulty Paying for Meds: No Currently Unemployed: No Education: Don't Know Difficulty w/ Childcare or Family Care: No Spiritual care concerns: No <SADE Allen Last Filed: 07/21/25 18:09> Exam Narrative: GENERAL: Well-appearing, well-nourished, and in no acute distress. HEAD: Normocephalic, atraumatic. EYES: PERRLA and EOMI. ENT: Nares clear, no rhinorrhea or epistaxis. Mucous membranes moist. Oropharynx without tonsillar hypertrophy exudate or other lesions. Bilateral TMs pearly galvez non-bulging NECK: Supple. No adenopathy or masses. No carotid bruits or JVD CHEST: Clear to auscultation. No respiratory distress. No wheezes rales or rhonchi HEART: Regular rate and rhythm. No murmur heard. Normal peripheral pulses. ABDOMEN: Right lower and upper quadrant tenderness. Left lower quadrant tenderness. Normal active bowel sounds. EXTREMITIES: Normal range of motion. No edema. SKIN: Warm, dry, no rash. NEURO: No focal deficits. Alert and oriented x3. PSYCH: Normal mood and affect <GUILLERMO Zaman - Last Filed: 07/22/25 02:58> Course Vital Signs Vital signs: Vital Signs Temperature 97.4 F L 07/21/25 16:10 Pulse Rate 89 07/21/25 16:10 Respiratory Rate 16 07/21/25 16:10 Blood Pressure 179/80 H 07/21/25 16:10 Pulse Oximetry 99 07/21/25 16:10 Oxygen Delivery Room Air 07/21/25 16:10 Temperature 98.1 F 07/21/25 21:35 Pulse Rate 73 07/22/25 01:52 Respiratory Rate 17 07/22/25 01:52 Blood Pressure 149/76 H 07/22/25 01:52 Pulse Oximetry 97 07/22/25 01:52 Oxygen Delivery Room Air 07/21/25 21:35 <Marisol Swenson PA-C - Last Filed: 07/21/25 18:09> Vital Signs Temperature 97.4 F L 07/21/25 16:10 Pulse Rate 89 07/21/25 16:10 Respiratory Rate 16 07/21/25 16:10 Blood Pressure 179/80 H 07/21/25 16:10 Pulse Oximetry 99 07/21/25 16:10 Oxygen Delivery Room Air 07/21/25 16:10 Temperature 98.1 F 07/21/25 21:35 Pulse Rate 73 07/22/25 01:52 Respiratory Rate 17 07/22/25 01:52 Blood Pressure 149/76 H 07/22/25 01:52 Pulse Oximetry 97 07/22/25 01:52 Oxygen Delivery Room Air 07/21/25 21:35 <GUILLERMO Zaman Last Filed: 07/22/25 02:58> MDM - Abdominal Pain MDM Narrative Medical decision making narrative: MSE by MIROSLAVA in triage. <Marisol Swenson PA-C - Last Filed: 07/21/25 18:09> MSE by MIROSLAVA in triage. Patient is a 54 y/o female, with Hx of cholecystectomy, appendectomy, who presents to the ED with c/o ABD pain. Patient reports having pain throughout her lower abdomen, into her R sided abdomen, radiates around to R mid back. Pain began on Thursday, has been worsening. Pain worse with eating. Tried taking a [place] today but was unable to keep this down. Reports N/V/D. Denies dysuria/hematuria or vaginal complaints. Denies fever. Patient given Zofran by MSE provider. Upon my initial assessment patient is sitting comfortably and vitals are stable. Patient had mild tenderness to left and right lower quadrant. Labs within normal limits. Patient endorses prior removal of gallbladder and appendix. CT abdomen pelvis indicated no acute abnormalities. UA demonstrated mild pyuria and bacteriuria however patient was having no urinary symptoms at this time. Administered ketorolac, Zofran, GI cocktail, and morphine for pain control and for her nausea. All results discussed with patient and patient verbalized understanding. Patient's pain improved. Discharged home and advised close follow-up with PCP for further pain management and treatment of chronic conditions. <GUILLERMO aZman - Last Filed: 07/22/25 02:58> Medical Records Attestation: I reviewed the patient's medical records. <GUILLERMO Zaman - Last Filed: 07/22/25 02:58> Lab Data Attestation: I reviewed the patient's lab results. <GUILLERMO Zaman - Last Filed: 07/22/25 02:58> Result diagrams: 07/21/25 18:21 07/21/25 18:21 <Marisol Swenson PA-C - Last Filed: 07/21/25 18:09> Labs: Lab Results 07/21/25 07/21/25 Range/Units 18:21 21:38 WBC 10.4 H (4.5-10.0) K/mm3 RBC 4.23 (4.2-5.4) M/mm3 Hgb 11.4 L (12.0-15.0) g/dL Hct 35.2 L (37.0-47.0) % MCV 83.2 (80-100) fl MCH 27.0 (26-34) pg MCHC 32.4 (32-36) g/dl RDW 13.0 (11.5-14.5) % Plt Count 281 (150-375) k/mm3 MPV 9.4 (7.4-10.4) fl Immature Gran % (Auto) 0.5 (0-0.5) % Neut % (Auto) 68.9 (45.5-73.1) % Lymph % (Auto) 20.6 (18.3-44.2) % [place] % (Auto) 6.9 (2.6-8.5) % Eos % (Auto) 2.3 (0-4.4) % Baso % (Auto) 0.8 (0.2-1.2) % Lymph # (Auto) 2.15 (0.9-3.2) K/mm3 [place] # (Auto) 0.7 H (0.1-0.6) K/mm3 Eos # (Auto) 0.2 (0-0.3) K/mm3 Baso # (Auto) 0.1 (0.0-0.1) K/mm3 Abs Immat Gran (auto) 0.05 H (0.00-0.031) K/mm3 Absolute Neuts (auto) 7.2 H (1.3-6.7) K/mm3 Absolute Nucleated RBC 0.000 (0.0-0.012) K/mm3 Nucleated RBC % 0.0 (0.0-0.2) % Sodium 136 L (137-145) mmol/L Potassium 4.2 (3.4-5.0) mmol/L Chloride 106 (98-107) mmol/L Carbon Dioxide 23 (22-30) mmol/L Anion Gap 7 (4-12) mmol/L BUN 15 (7-17) mg/dL Creatinine 0.84 (0.7-1.0) mg/dL Estim Creat Clear Calc 91 ml/min Estimated GFR > 60 (59 - ) Glucose 138 H (65-110) mg/dL Calcium 9.1 (8.4-10.2) mg/dL Total Bilirubin 0.8 (0.2-1.3) mg/dL AST 40 H (14-36) U/L ALT 25 (6-35) U/L Alkaline Phosphatase 124 (38-126) U/L Total Protein 7.7 (6.3-8.2) g/dL Albumin 4.1 (3.5-5.1) g/dL Lipase 92 (23-300) U/L Urine Color Yellow (Yellow) Urine Appearance Clear (Clear) Urine pH 6.5 (5.0-9.0) Ur Specific [place] > 1.045 H (1.001-1.035) Urine Protein Negative (Negative) mg/dL Urine Glucose (UA) Negative (Negative) mg/dL Urine Ketones Negative (Negative) mg/dL Ur Blood (Man) Negative (Negative) Urine Nitrate Negative (Negative) Urine Bilirubin Negative (Negative) Urine Urobilinogen 0.2 (<2.0) mg/dL Add Ur Microanalysis Reviewed Leukocyte Esterase Rfl 1+ H (Negative) NENA/UL Urine RBC 0-2 (0-2) /hpf Urine WBC 11-20 H (0-3) /hpf Ur Squamous Epith Cells Few (Few) /hpf Urine Bacteria 1+ H /hpf Urine Casts 0-2 <Marisol Swenson PA-C - Last Filed: 07/21/25 18:09> Lab Results 07/21/25 07/21/25 Range/Units 18:21 21:38 WBC 10.4 H (4.5-10.0) K/mm3 RBC 4.23 (4.2-5.4) M/mm3 Hgb 11.4 L (12.0-15.0) g/dL Hct 35.2 L (37.0-47.0) % MCV 83.2 (80-100) fl MCH 27.0 (26-34) pg MCHC 32.4 (32-36) g/dl RDW 13.0 (11.5-14.5) % Plt Count 281 (150-375) k/mm3 MPV 9.4 (7.4-10.4) fl Immature Gran % (Auto) 0.5 (0-0.5) % Neut % (Auto) 68.9 (45.5-73.1) % Lymph % (Auto) 20.6 (18.3-44.2) % [place] % (Auto) 6.9 (2.6-8.5) % Eos % (Auto) 2.3 (0-4.4) % Baso % (Auto) 0.8 (0.2-1.2) % Lymph # (Auto) 2.15 (0.9-3.2) K/mm3 [place] # (Auto) 0.7 H (0.1-0.6) K/mm3 Eos # (Auto) 0.2 (0-0.3) K/mm3 Baso # (Auto) 0.1 (0.0-0.1) K/mm3 Abs Immat Gran (auto) 0.05 H (0.00-0.031) K/mm3 Absolute Neuts (auto) 7.2 H (1.3-6.7) K/mm3 Absolute Nucleated RBC 0.000 (0.0-0.012) K/mm3 Nucleated RBC % 0.0 (0.0-0.2) % Sodium 136 L (137-145) mmol/L Potassium 4.2 (3.4-5.0) mmol/L Chloride 106 (98-107) mmol/L Carbon Dioxide 23 (22-30) mmol/L Anion Gap 7 (4-12) mmol/L BUN 15 (7-17) mg/dL Creatinine 0.84 (0.7-1.0) mg/dL Estim Creat Clear Calc 91 ml/min Estimated GFR > 60 (59 - ) Glucose 138 H (65-110) mg/dL Calcium 9.1 (8.4-10.2) mg/dL Total Bilirubin 0.8 (0.2-1.3) mg/dL AST 40 H (14-36) U/L ALT 25 (6-35) U/L Alkaline Phosphatase 124 (38-126) U/L Total Protein 7.7 (6.3-8.2) g/dL Albumin 4.1 (3.5-5.1) g/dL Lipase 92 (23-300) U/L Urine Color Yellow (Yellow) Urine Appearance Clear (Clear) Urine pH 6.5 (5.0-9.0) Ur Specific [place] > 1.045 H (1.001-1.035) Urine Protein Negative (Negative) mg/dL Urine Glucose (UA) Negative (Negative) mg/dL Urine Ketones Negative (Negative) mg/dL Ur Blood (Man) Negative (Negative) Urine Nitrate Negative (Negative) Urine Bilirubin Negative (Negative) Urine Urobilinogen 0.2 (<2.0) mg/dL Add Ur Microanalysis Reviewed Leukocyte Esterase Rfl 1+ H (Negative) NENA/UL Urine RBC 0-2 (0-2) /hpf Urine WBC 11-20 H (0-3) /hpf Ur Squamous Epith Cells Few (Few) /hpf Urine Bacteria 1+ H /hpf Urine Casts 0-2 <GUILLERMO Zaman Last Filed: 07/22/25 02:58> Imaging Data Attestation: I personally reviewed and interpreted this imaging study as follows: <GUILLERMO Zaman Last Filed: 07/22/25 02:58> Radiologist's impression: ITS Impressions Abdomen/Pelvis CT 07/21/25 19:37 IMPRESSION: 1. No acute abdominal abnormality. <Marisol Swenson PA-C - Last Filed: 07/21/25 18:09> ITS Impressions Abdomen/Pelvis CT 07/21/25 19:37 IMPRESSION: 1. No acute abdominal abnormality. <GUILLERMO Zaman Last Filed: 07/22/25 02:58> Critical Care Time Critical Care Time Critical Care Time: No <GUILLERMO Zaman Last Filed: 07/22/25 02:58> Discharge Plan Discharge Clinical Impression: Abdominal pain <SADE Allen Last Filed: 07/21/25 18:09> Patient Disposition: Home <SADE Allen Last Filed: 07/21/25 18:09> Condition: Stable <SADE Allen Last Filed: 07/21/25 18:09> Instructions: Abdominal Pain (ED) <SADE Allen Last Filed: 07/21/25 18:09> Additional Instructions: Return to the ER if you experience fever, abdominal pain with nausea and vomiting, you are unable to keep down liquids or solids, blood in the stool, pain or burning with urination, blood in the urine or any other symptoms that are concerning to you Small frquent meals. [place] diet. Hydrate with gatorade and water. Take medications as prescribed. Follow up with primary care doctor. <Marisol Swenson PA-C - Last Filed: 07/21/25 18:09> Patient Language: Mauritian <Marisol Swenson PA-C - Last Filed: 07/21/25 18:09> Prescriptions: New ondansetron 4 mg tablet,disintegrating 4 mg PO Q6H PRN (Reason: nausea and vomiting) Qty: 20 0RF No Action hydrocodone-acetaminophen 5-325 mg tablet 1 tablet PO Q6H PRN (Reason: pain) Qty: 10 0RF amlodipine 5 mg tablet 5 mg PO DAILY@0800 Patient Comments: had been on hold since february atorvastatin 80 mg tablet 80 mg PO DAILY@0800 Patient Comments: has been on hold since apr 20 carvedilol 12.5 mg tablet 12.5 mg PO BID (DME) Dexcom G7 Sensor Device MISCELLANEOUS Patient Comments: changed 05/12/2025 dicyclomine 20 mg tablet 20 mg PO BID Aimovig Autoinjector 70 mg/mL auto-injector 70 mg SUBCUT MONTHLY Patient Comments: took 04/23/2025 not do till 05/24/2025 hydroxyzine HCl 25 mg tablet 25 mg PO HS insulin lispro [Humalog U-100 Insulin] 100 unit/mL solution 1 sliding scale dose continuous subcutaneous infusion PRN PRN (Reason: hyperglycemia) Rx Instructions: 1 sliding scale dose via continuous subcutaneous infusion PRN; (DME) Omnipod 5 G6-G7 Pods (Gen 5) Cartridge SUBCUT methocarbamol 500 mg tablet 500 mg PO HS pantoprazole 40 mg tablet,delayed release (DR/EC) 40 mg PO HS ropinirole 0.25 mg tablet 0.75 mg PO HS PRN (Reason: restless leg(s)) venlafaxine 150 mg capsule,extended release 24hr 150 mg PO QPM Patient Comments: Dose changed on thursday aspirin [Children's Aspirin] 81 mg Tablet,Chewable 81 mg PO DAILY@0800 Qty: 30 0RF isosorbide mononitrate 60 mg Tablet Extended Release 24 Hr 60 mg PO QAM Qty: 30 1RF <Marisol Swenson PA-C - Last Filed: 07/21/25 18:09> Follow-up/Referrals: Breezy,Brissa Zamora MD [Primary Care Provider, Unknown] <Marisol Swenson PA-C - Last Filed: 07/21/25 18:09>
[2025-07-21] MEDS: ONDANSETRON INJ 4 MG/2 ML VIAL IV PUSH (18:23)
--- NOTE | 2025-07-21 18:24 | PC.NURSE ---
ct called, made aware of green
[2025-07-21 18:35] LABS: Hematocrit 35.2 % (37.0-47.0); Hemoglobin 11.4 g/dL (12.0-15.0); Immature Granulocyte Percent A 0.5 % (0-0.5); Lymphocytes Absolute Auto 2.15 K/mm3 (0.9-3.2); Mean Corpuscular HGB Conc 32.4 g/dl (32-36); Mean Corpuscular Hemoglobin 27.0 pg (26-34); Mean Corpuscular Volume 83.2 fl (80-100); Nucleated Red Blood Cells Absolute Auto 0.000 K/mm3 (0.0-0.012); Nucleated Red Blood Cells Perc 0.0 % (0.0-0.2); Platelet Count Result 281 k/mm3 (150-375); Red Blood Count 4.23 M/mm3 (4.2-5.4); White Blood Count 10.4 K/mm3 (4.5-10.0)
[2025-07-21 18:48] LABS: Alanine Aminotransferase 25 U/L (6-35); Albumin Level 4.1 g/dL (3.5-5.1); Alkaline Phosphatase 124 U/L (38-126); Anion Gap 7 mmol/L (4-12); Aspartate Amino Transferase 40 U/L (14-36); Bilirubin,Total 0.8 mg/dL (0.2-1.3); Blood Urea Nitrogen 15 mg/dL (7-17); Calcium 9.1 mg/dL (8.4-10.2); Carbon Dioxide 23 mmol/L (22-30); Chloride 106 mmol/L (98-107); Estimated CRCL calculation 91 ml/min; Estimated Glomerular Filt Rate > 60; Glucose 138 mg/dL (65-110); Lipase 92 U/L (23-300); Potassium 4.2 mmol/L (3.4-5.0); Sodium 136 mmol/L (137-145); Total Protein 7.7 g/dL (6.3-8.2)
[2025-07-21 21:35] VITALS: BP 137/70; PULSE 73; RESP 18; TEMP 36.7; O2SAT 100
[2025-07-21 21:39] VITALS: BP 137/70; PULSE 72; RESP 18; O2SAT 97
[2025-07-21 21:59] LABS: Add Urine Microscopic? YES; Appearance Urine Clear (Clear); Glucose Urine UA Negative (Negative); Leukocyte Esterase Ur 1+ LEU/UL (Negative); Need Manual Microscopic Reviewed; Nitrate Urine Negative (Negative); Non Pathogenic Casts 0-2; Specific Grav Ur > 1.045 (1.001-1.035)
--- OUTSIDE RECORDS SUMMARY | 2025-07-21 22:33 | XMS_ITS | Encounter Summary ---
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
--- OUTSIDE RECORDS SUMMARY | 2025-07-21 22:33 | XMS_ITS | Clinical Summary ---
Author Organization [facility] Address [address] [place] [phone] Phone Care Team Providers Care Marketing Strategy Lead Name Role Phone Brissa Tijerina MD Primary Care Provider [phone] Allergies Active Allergy Reactions Criticality Noted Date [...] CDT - 07/13/2025 8:59 AM CDT Emergency [facility] Emergency Department [address] [place] [address] Yves Andre MD Chest pain, unspecified type (Primary Dx) Discharge Disposition: Discharge to home or self care 07/07/2025 12:23 PM CDT - 07/07/2025 3:20 PM CDT Emergency [facility] Emergency Department [address] [place] [address] Abdominal pain, unspecified abdominal location (Primary Dx); Diarrhea, unspecified type Discharge Disposition: Discharge to home or self care 06/25/2025 9:29 PM CDT - 06/25/2025 11:28 PM CDT Emergency [facility] Emergency Department [address] [place] [address] Rox Amos MD Right lower quadrant abdominal pain (Primary Dx) Discharge Disposition: Discharge to home or self care 05/24/2025 Orders Only [facility] Cardiology [address] [place] [address] mW De La Garza MD from Last 3 [...] on file Legal Sex Female 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 Gender Identity Not on file Sexual Orientation [...] hs delta -1 ng/L [facility] Trop T hs interp Insignificant [facility] Blood 07/13/2025 8:01 AM CDT 07/13/2025 8:05 AM CDT us Yves Andre MD LAB BLOOD ORDERABLE S Final Result [facility] ([place]) [address] [facility] [place] [address] * XR Chest 1 View (07/13/2025 6:42 [...] AM CDT) 07/13/2025 6:26 AM CDT Narrative [facility] - 07/13/2025 8:13 AM CDT Vent Rate: 70 bpm RR Interval: 851 msec MA Interval: 165 msec QRS Duration: 94 msec QT Interval: 377 msec QTC Interval: 398 msec P-R-T Guide Rock: 80 - -8 - 70 degrees IMPRESSION: SINUS RHYTHM NORMAL ECG Electronically Signed By: Wm De La Garza MD Yves Andre MD ECG ORDERABLES Fin al Result [facility] * Troponin T high-sensitivity series (baseline, 2hr, [...] ORDERABLE S Final Result Performing Organization Address City/[facility] Co de Phone Number [facility] ([place]) [address] [facility] [place] [address] * eGFR (07/13/2025 6:24 AM CDT) eGFR [...] S Final Result [facility] ([place] [address] [facility] [place] [address] * Differential, auto (07/13/2025 6:24 AM CDT) [...] Lymphocyte pct 27.9 % [facility] ([place]) Comment: Interpretive Data Percent cell count reference [...] 2017. Basophil pct 0.9 % [facility] ([place]) Comment: Interpretive Data Percent cell count reference ranges are not reported, since discordance with absolute values may lead to misinterpretation of CBC data. Current Interpretive Data was last revised on 2017. Blood 07/13/2025 6:24 AM CDT 07/13/2025 6:30 AM CDT us Yves Andre MD LAB BLOOD ORDERABLE S Final Result [facility] ([place]) [address] [facility] [place] [address] * (ABNORMAL) CBC with auto differential (07/13/2025 [...] S Final Result [facility] ([place]) [address] [facility] [place] [address] * (ABNORMAL) Comprehensive metabolic panel (07/13/2025 6:24 AM CDT) Pathologist [facility] Sodium 140 135 - 145 mmol/L Potassium, [...] MD LAB BLOOD ORDERABLE S Final Result [facility] ([place] [address] [facility] [place] [address] * CT Abdomen Pelvis W Contrast (07/07/2025 [...] * eGFR (07/07/2025 12:53 PM CDT) Pathologist [facility] eGFR >90 >=60 mL/min/1. 73 m2 Comment: [...] LAB BLOOD ORDERABLES Final Resu lt [facility] ([place]) [address] [facility] Department of Laboratories [place], [place] [address] * Differential, auto (07/07/2025 12:53 PM CDT) Pathologist [facility] Neutrophil abs 3.85 1.50 - 6.50 K/cumm [...] BLOOD ORDERABLES Final Resu lt [facility] ([place]) [address] [facility] [place] [address] * Urinalysis reflex to microscopic and culture [...] tendency for uric acid stone formation. Source: [facility] Current Interpretive Data was last revised on [...] MICROBIOLOGY - GENERAL SCARLETT AVALOS Final Result [facility] [address] [facility] [place] [address] * (ABNORMAL) CBC with auto differential (07/07/2025 12:53 PM CDT) WBC 6.14 3.80 - 9.90 K/cumm Hgb 10.6(L) 11.9 - 15.5 g/dL [facility] Hct 33.5(L) 35.6 - 45.5 % [facility] Plt 227 150 - 400 K/cumm [facility] MPV 9.5 9.1 - 12.3 fL [facility] RBC 3.95 3.90 - 5.20 M/cumm [facility] MCV 84.8 81.3 - 96.4 fL [facility] MCH 26.8(L) 27.1 - 33.3 pg [facility] MCHC 31.6(L) 32.3 - 35.7 g/dL [facility] RDW CV 12.7 11.1 - 14.9 % [facility] RDW SD 39.0 35.7 - 48.1 fL [facility] NRBC abs 0.00 0.00 - 0.01 K/cumm [facility] Blood 07/07/2025 12:5 3 PM CDT 07/07/2025 12:56 PM CDT Elaine LI LAB BLOOD ORDERABLES Final Resu lt [facility] ([place] [address] [facility] [place] [address] * Magnesium (07/07/2025 12:53 PM CDT) Magnesium 1.8 1.4 - 2.5 mg/dL Blood 07/07/2025 12:5 3 PM CDT 07/07/2025 12:56 PM CDT Elaine LI LAB BLOOD ORDERABLES Final Resu lt [facility] ([place] 1 [facility] [place] [address] * Lipase (07/07/2025 12:53 PM CDT) Lipase 22 10 - 99 Units/L Blood 07/07/2025 12:5 3 PM CDT 07/07/2025 12:56 PM CDT Elaine LI LAB BLOOD ORDERABLES Final Resu lt [facility] ([place] [address] [facility] [place] [address] * (ABNORMAL) Comprehensive metabolic panel (07/07/2025 12:53 [...] Final Resu lt [facility] ([place] [address] [facility] [employer] [place] [address] * (ABNORMAL) Urinalysis reflex to microscopic and [...] tendency for uric acid stone formation. Source: [facility] [place] Current Interpretive Data was last revised on [...] ORDERABLES Final Result [facility] [address] [facility] [place] [address] * (ABNORMAL) Urinalysis, microscopic only (06/25/2025 10:46 [...] to urine culture will be performed. [facility] ([place] Urine 06/25/2025 10:4 6 PM CDT 06/25/2025 10:52 PM CDT Papito LI LAB URINE ORDERA BLES Final Result Performing Organization Address City/[facility]/ZIP Co de Phone Number [facility] ([place]) [address] [place] [address] [place] [address] * Urine culture Urine (06/25/2025 10:46 PM CDT) Report Final Report: Less than 100,000 colonies/mL (clinically insignificant growth based on current clinical standards) Comment:Testing performed by : [facility], [address] [place]., [address] Organism (CLINICALLY INSIGNIFICANT GROWTH [facility] ([place] Urine 06/25/2025 10:4 6 PM CDT 06/26/2025 1:36 AM CDT Narrative [facility] ([place]) - 06/27/2025 2:27 AM CDT Urine culture reflexed based upon urinalysis results. Testing performed by [facility] ([phone]) Pap[facility] LAB MICROBIOLOGY - GENERAL ORDERABLES Final Result [facility] [facility] [place] [address] * CT Abdomen Pelvis WO Contrast (06/25/2025 [...] Reported sudden abdominal pain since 2 days ESTHETICS INSTRUCTOR and progressive pain with 3-4 episodes of vomiting one day ESTHETICS INSTRUCTOR. Pt. Stated pain mainly at RUQ down to RLQ. Pt. Also reported 7-8 episodes of diarrhea hours ESTHETICS INSTRUCTOR. TECHNIQUE: CT scan of the abdomen and [...] Yves Rodriguez M.D. AR: SOFY Report ID: [id number] Reading Location: [id number] Procedure Note Yves Rodriguez MD - 06/25/2025 EXAM DESCRIPTION: CT ABDOMEN PELVIS WO CONTRAST REASON FOR STUDY: Abdominal pain CC of abdominal pain associated with nausea and vomiting with diarrhea.Known case of DM type 2 and hypertension. Reported sudden abdominal pain since 2 days ESTHETICS INSTRUCTOR and progressive pain with 3-4 episodes of vomiting one day ESTHETICS INSTRUCTOR.Pt. Stated pain mainly at RUQ down to RLQ. Pt. Also reported 7-8 episodes of diarrhea hours ESTHETICS INSTRUCTOR. TECHNIQUE: CT scan of the abdomen and [...] Yves Rodriguez M.D. AR: SOFY Report ID: [id number] Reading Location: [place] [address] Rox Amos MD IMG CT PROCEDURES F [...] BLOOD ORDERA BLES Final Result [facility] ([place]) [address] [facility] [place] [address] * Differential, auto (06/25/2025 9:07 PM CDT) [...] BLES Final Result [facility] ([place]) [address] [facility] Department [place] [address] * (ABNORMAL) CBC with auto differential (06/25/2025 [...] RDW CV 13.4 11.1 - 14.9 % [facility] RDW SD 41.1 35.7 - 48.1 fL [facility] ([place]) NRBC abs 0.00 0.00 - 0.01 K/cumm [facility] Blood 06/25/2025 9:07 PM CDT 06/25/2025 9:09 PM CDT Papito LI LAB BLOOD ORDERA BLES Final Result [facility] ([place]) [address] [facility] [place] [address] * Lipase (06/25/2025 9:07 PM CDT) Pathologist [facility] Lipase 23 10 - 99 Units/L Blood 06/25/2025 9:07 PM CDT 06/25/2025 9:09 PM CDT Papito LI LAB BLOOD ORDERA BLES Final Result Performing Organization Address City/[facility]/ZIP Co de Phone Number [facility] ([place]) 1 [facility] [place] [address] * (ABNORMAL) Comprehensive metabolic panel (06/25/2025 9:07 PM CDT) Sodium 135 135 - 145 mmol/L Potassium, pl 4.0 3.3 - 4.9 mmol/L [facility] Chloride 100 97 - 110 mmol/L [facility] CO2 24 22 - 32 mmol/L [facility]) Anion gap 11 2 - 15 mmol/L [facility] BUN 13 6 - 25 mg/dL [facility] Creatinine 0.77 0.60 - 1.10 mg/dL [facility] Glucose 226(H) 70 - 199 mg/dL [facility] ([place]) Comment: Interpretive Data Fasting [...] BLES Final Result [facility] ([place] [address] [facility] [place] [address] * Cardiology Document Scan (05/15/2025 1:54 PM CDT) Anatomical Region Laterality Modality Other Wm De La Garza MD CV CARDIAC SERVICES PROCEDU RES Final Result * Cardiology Document Scan (05/14/2025 1:52 PM CDT) Anatomical Region Laterality Modality Other Wm De La Garza MD CV CARDIAC SERVICES PROCEDU RES Final Result from Last 3 Months [place] [address] MEDICARE IDPA IDPA [facility] MEDICARE ADVANTAGE Care Teams Marketing Strategy Lead Relationship Specialty Start Date End Date Brissa Tijerina MD [address] [place] [address] PCP - General Family Medicine 07/13/25
--- OUTSIDE RECORDS SUMMARY | 2025-07-21 22:33 | XMS_ITS | Encounter Summary ---
Author Organization [facility] Address [address] [place] [address] Care Team Providers Care Pvc Loader Name Role Phone Yaneth Lagos MD Primary Care Provider [phone] Yaneth Lagos MD Primary Care Provider [phone] Hero Bearden MD Unavailable Adele Lagos MD Primary Care Provider [phone] Ce Villalobos MD Unavailable Brissa Tijerina MD Primary Care Provider + Encounter Details Date Type Department Care Team (Late st Contact Info) Description 11/28/2017 Abstract [facility] CONVERSION [address] [place] [address] , Generic MD Racheal Social History Tobacco Use Types Packs/Day Years Used Date Smoking Tobacco: Never Assessed Comments Unknown Sex and Gender Information Value Date Recorded Sex Assigned at Female 09/30/2024 10:51 PM 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 Legal Sex Female 7:02 PM CDT Gender Identity Not on file Sexual Orientation Not on file documented as of this encounter Plan of Treatment Not on file documented as of this encounter Visit Diagnoses Not on filedocumented in this encounter Care Teams Pvc Loader Relationship Specialty Start Date End Date Yaneth Lagos MD [address] [address] PCP - General 03/22/17 04/07/18 Yaneth Lagos MD [address] [facility] [address] [place] [address] PCP - General FAMILY PRACTICE 09/17/19 06/15/22 Adele Lagos MD [address] [place] [address] PCP - General INTERNAL MEDICINE 06/16/22 11/02/24 Brissa Tijerina MD [address] [place] [address] PCP - General FAMILY PRACTICE 11/03/24 Hero Bearden MD [address] [facility] [address] [place] [phone] Nurse Receptionist OBGYN 04/04/22 Ce Villalobos MD [address] [place] [address] [place] Dog Boarder CARDIOVASCULAR DISEASE 07/18/22 documented as of this encounter
--- OUTSIDE RECORDS SUMMARY | 2025-07-21 22:33 | XMS_ITS | Encounter Summary ---
Author Organization [facility] Address [address] [place] [address] Care Team Providers Care Cotton Grower Name Role Phone Hero Beardne MD Unavailable Ce Villalobos MD Unavailable Brissa Tijerina MD Primary Care Provider + Reason for Visit * Reason Onset Date Comments Preprocedure Call 01/16/2025 Internet Marketing Specialist spoke w jessica Landeros and reiterated that we need an H&P within 30 days of 01/20/25 MRI with anesthesia appt. Leti to call PCP for appt. Internet Marketing Specialist also reviewed anesthesia instructions: NPO after midnight, arrival time 0700, bring a auto transport driver, and reviewed medications to hold. All questions answered and Leti verbalized understanding. Encounter Details Date Type Department Care Team (Latest Contact Info) Description 01/16/2025 Pre-Procedure Call [facility] Interventional Radiology [address] [place] [address] Stella Castillo, RN Preprocedure Call (Internet Marketing Specialist spoke with Leti and reiterated that we need an H&P within 30 days of 01/20/25 MRI with anesthesia appt. Leti to call PCP for appt. Internet Marketing Specialist also reviewed anesthesia instructions: NPO after midnight, arrival time 0700, bring a auto transport driver, and reviewed medications to hold. All [...] Recorded Patient Health Questionnaire-2 Score 0 10/31/2022 [facility] - Occupational Stress Questionnaire Answer Date [...] place to sleep or slept in a long term (including now)? 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
--- OUTSIDE RECORDS SUMMARY | 2025-07-21 22:33 | XMS_ITS | Clinical Summary ---
Author Organization [facility] Address [address] [place] [address] Care Team Providers Care Police Lieutenant Precinct Name Role Phone Prem Bearden MD Unavailable [...] CDT - 06/13/2025 10:23 PM CDT Emergency [facility] Emergency Services [address] [place] [address] Edwardo Ken MD Back Pain Discharge Disposition: Home or Self Care (Routine Discharge) 06/13/2025 Travel 05/05/2025 4:40 PM CDT - 05/05/2025 6:34 PM CDT Emergency [facility] Emergency [address] [place] [address] Marco A Gómez, [place] Abdominal Pain Discharge [...] Recorded Patient Health Questionnaire-2 Score 0 10/31/2022 [facility] Occupat ional Health - Occupational Stress [...] Sex Assigned at Female 09/30/2024 10:51 PM STAVE AND BOLT EQUALIZER Legal Sex Female 7:02 PM CDT Gender [...] PAPILLOMAVIRUS, HIGH-RISK TYPES Routine 10/31/2022 12:00 PM STAVE AND BOLT EQUALIZER CYTOPATH CERV/VAG THIN LAYER Routine 10/31/2022 9:01 AM STAVE AND BOLT EQUALIZER Encounter for gynecological examination with Papanicolaou smear of cervix MAMMOGRAM GENERIC (SCAN ORDER) 11/17/2019 from Last 3 Months or Most Recently Relevant to Health Maintenance Results * (ABNORMAL) COMPREHENSIVE METABOLIC PANEL (05/05/2025 4:44 PM CDT) SODIUM S/P/B 140 136 - 145 MMOL/L 05/05/2025 5:22 PM CDT [facility] POTASSIUM S/P/B 4.0 3.5 - 5.1 MMOL/L 05/05/2025 5:22 PM CDT [facility] CHLORIDE S/P/B 110 97 - 115 MMOL/L 05/05[facility] CO2 26.3 21.0 - 32.0 MMOL/L 05/05/2025 5:22 PM [facility] GLUCOSE 132(H) 74 - 106 MG/DL 05/05/2025 5:22 PM [facility] BUN 16 7 - 18 MG/DL 05/05/2025 5:22 PM [facility] CREATININE S/P/B 1.21(H) 0.55 - 1.02 MG/DL 05/05/2025 5:22 PM T [facility] CALCIUM S/P/B 9.8 8.5 - 10.1 MG/DL 05/05/2025 5:22 PM T [facility] BILIRUBIN TOTAL S/P/B 0.8 0.2 - 1.0 MG/DL 05/05/2025 5:22 PM T [facility] ALKALINE PHOSPHATASE S/P/B 155(H) 41 - 108 U/L 05/05/2025 5:22 PM T [facility] AST 49(H) 15 - 37 U/L 05/05/2025 5:22 PM T [facility] ALT 45 13 - 56 U/L 05/05/2025 5:22 PM [facility] TOTAL PROTEIN S/P/B 7.7 6.4 - 8.2 G/DL 05/05/2025 5:22 PM [facility] ALBUMIN S/P/B 3.3(L) 3.4 - 5.0 G/DL 05/05/2025 5:22 PM T [facility] ANION GAP 3.7 2.0 - 10.0 MMOL/L 05/05/2025 5:22 PM [facility] OSMOLALITY (CALC) 293 MOSM/KG 025 5:22 PM T [facility] Comment:REFERENCE RANGE NOT ESTABLISHED GFR ESTIMATE 53(L) >90 ML/MIN/1. 73 M2 05/05/2025 5:22 PM CDT [facility] GFR NOTES GFR REFERENCE S: 05/05/2025 5:22 PM CDT [facility] Comment: THE ESTIMATED GFR [...] CDT Jaylin Rajan NP LABORATORY Final Result [facility] [address] [place] [address], [id number] * (ABNORMAL) CBC W/DIFF AUTOMATED (05/05/2025 4:44 PM CDT) WBC 6.77 4.00 - 10.80 x10'3/uL 05/05/2025 4:55 PM CDT [facility] RBC 4.21 4.10 - 5.40 x10'6/uL 05/05/2025 4:55 PM CDT [facility] HGB 11.4(L) 12.0 - 16.0 G/DL 05/05/2025 4:55 PM CDT [facility] HCT 36.0 36.0 - 47.0 % 05/05/2025 4:55 PM CDT [facility] MCV 85.5 78.0 - 100.0 FL 05/05/2025 4:55 PM CDT [facility] MCH 27.1 27.0 - 31.0 PG 05/05/2025 4:55 PM CDT [facility] MCHC 31.7(L) 33.0 - 36.0 G/DL 05/05/2025 4:55 PM CDT [facility] RDW 14.0 11.5 - 14.5 % 05/05/2025 4:55 PM CDT [facility] PLT 238 150 - 350 x10'3/uL 05/05/2025 4:55 PM CDT [facility] MPV 9.8 7.4 - 10.4 FL 05/05/2025 4:55 PM CDT [facility] DIFFERENTIAL TYPE AUTOMATED DIFFERENTIAL 05/05/2025 4:55 PM CDT [facility] SEG NEUTROPHILS 60.1 % 4:55 PM CDT [facility] LYMPHOCYTES 26.1 % 05/05/2025 4:55 PM CDT [facility] MONOCYTES 8.0 % 05/05/2025 4:55 PM CDT [facility] EOSINOPHILS 4.3 % 05/05/2025 4:55 PM CDT [facility] BASOPHILS 1.2 % 05/05/2025 4:55 PM CDT [facility] IMMATURE GRANS % 0.3 % 05/05/20 4:55 PM CDT [facility] ABS. NEUTROPHILS 4.07 1.60 - 8.30 x10'3/uL 05/05/2025 4:55 PM CDT [facility] ABS. LYMPHOCYTES 1.77 0.80 - 4.70 x10'3/uL 05/05/2025 4:55 PM CDT [facility] ABS. MONOCYTES 0.54 0.00 - 1.50 x10'3/uL 05/05/2025 4:55 PM CDT [facility] ABS. EOSINOPHILS 0.29 0.00 - 0.40 x10'3/uL 05/05/2025 4:55 PM CDT [facility] ABS. BASOPHILS 0.08 0.00 - 0.20 x10'3/uL 05/05/2025 4:55 PM CDT [facility] ABS. IMMATURE GRANULOCYTES 0.02 0.00 - 0.03 x10'3/uL 05/05/2025 4:55 PM CDT [facility] ABS. NUCLEATED RBC'S 0.00 0.00 - 0.01 x10'3/uL 05/05/2025 4:55 PM CDT [facility] NRBC % 0.0 % 05/05/2025 4:55 PM CDT [facility] 05/05/2025 4:44 PM CDT Jaylin Rajan NP LABORATORY Final Result Performing Organization Address [facility] de Phone Number [facility] [address] [place] [address], [id number] * LIPASE (05/05/2025 4:44 PM CDT) Pathologist [facility] LIPASE 25 13 - 75 UNITS/L 05/05/2025 5:22 PM CDT [facility] 05/05/2025 4:44 PM CDT Jaylin Rajan NP LABORATORY Final Result Performing Organization Address [facility] de Phone Number [facility] [address] [place] [id number], [phone] * (ABNORMAL) LIPID PANEL (04/18/2023 6:36 AM CDT) CHOLESTEROL 188 MG/DL 04/18/2023 7:32 AM CDT [facility] Comment:DESIRABLE: <200 TRIGLYCERIDES 219 MG/DL 04/18/2023 7:32 AM CDT [facility] Comment:200-499 HIGH HDL 35(L) >49 MG/DL 04/18/2023 7:32 AM CDT [facility] LDL (CALCULATED) 109 MG/DL 04/18/20 7:32 AM CDT [facility] Comment:100-129 NEAR OR ABOV E OPTIMAL VLDL CALCULATION 44 MG/DL 04/18/20 7:32 AM CDT [facility] Comment:REFERENCE RANGE NOT ESTABLISHED CHOL/HDL RATIO 5.4 04/18/2023 7:32 AM CDT [facility] Comment:REFERENCE RANGE NOT ESTABLISHED LDL/HDL 3.1 04/18/2023 7:32 AM CDT [facility] Comment:REFERENCE RANGE NOT ESTABLISHED NON HDL CHOLESTEROL 153 MG/DL 04/18/2023 7:32 AM CDT [facility] Comment:REFERENCE RANGE NOT ESTABLISHED 04/18/2023 6:36 AM CDT Cornell TREJO LABORATORY Final Res ult Performing Organization Address [facility] Co de Phone Number [facility] [address] [place] [address], [phone] * (ABNORMAL) HEMOGLOBIN, GLYCOSYLATED (04/17/2023 4:24 PM CDT) HGB A1C 7.2(H) <5.7 % 04/17/2023 5:28 PM CDT [facility] ESTIMATED AVG GLUCOSE 160(H) 74 - 114 MG/DL 04/17/2023 5:28 PM CDT [facility] 04/17/2023 4:24 PM CDT Yoshi Edwards PA-C LABORATORY Final Result Performing Organization Address [facility] Co de Phone Number [facility] [address] [place] [address], [phone] * (ABNORMAL) HUMAN PAPILLOMAVIRUS, HIGH-RISK TYPES (10/31/2022 12:00 PM STAVE AND BOLT EQUALIZER) SPEC DESCRIPTION CERVICAL/ ENDOCERVI SHWETA 11/03/2022 9:26 AM STAVE AND BOLT EQUALIZER [facility] HPV DNA HIGH RISK POSITIVE( A) NEGATIVE 11/03/2022 5:31 PM STAVE AND BOLT EQUALIZER [facility] Comment:SEE CYTOLOGY REPORT 10/31/2022 12:0 0 PM STAVE AND BOLT EQUALIZER us Prem Bearden MD PATHOLOGY/CYTOLOGY ORDERABLES Fi nal Result [facility] [address] [place] [address], * Cytopath Cerv/Vag Thin Layer (10/31/2022 9:01 AM STAVE AND BOLT EQUALIZER) THIN PREP PAP [facility] [address] [place] [address] Department of Pathology Pathology Report CERVICAL/VAGINAL PAP SMEAR REPORT Name: LETI WHITE Age: 1 1970 (Age: 52) Location: [facility] Sex: F Collected Date: 10/31/2022 [place] [employer] [facility] #: [id number] Date Received: 11/03/2022 Date Reported: 11/05/2022 Provider: [...] [facility] 10/31/2022 9:01 AM STAVE AND BOLT EQUALIZER 11/03/2022 9:01 AM STAVE AND BOLT EQUALIZER Comment:CERVICAL/ENDOCERVICA L Prem Bearden MD PATHOLOGY/CYTOLOGY ORDERABLES Fi nal Result Performing Organization Address City/State/[facility] Co de Phone Number [facility] [address] [place] [address], [place] [phone] * MAMMOGRAM GENERIC (11/17/2019) Anatomical Region Laterality Modality Other 11/17/2019 Narrative 11/17/2019 Ordered by an unspecified provider. us Documents Scanned SCANNING Final Result from Last 3 Months or Most Recently Relevant to Health Maintenance Insurance [place] [address] [place] [address] MEDICARE Advance Directives * Full Code (Latest Code Status on File) Date Activated Date Inactivated Comments 05/07/2023 9:34 PM 08/04/2023 5:02 PM * Full Code Date Activated Date Inactivated Comments 04/18/2023 1:16 AM 04/22/2023 2:48 PM Care Teams Police Lieutenant Precinct Relationship Specialty Start Date End Date Brissa Tijerina MD [address] [place] [address] PCP - General FAMILY PRACTICE 11/03/24 Prem Bearden MD Railway Yard Assistant OBGYN 04/04/22 Ce Villalobos MD [address] [place] [address] [place] Industrial Technology Teacher CARDIOVASCULAR DISEASE 07/18/22
--- OUTSIDE RECORDS SUMMARY | 2025-07-21 22:33 | XMS_ITS | Encounter Summary ---
Author Organization [facility] Address [address] [place] [address] Care Team Providers Care Commercial Loan Assistant Name Role Phone Hero Bearden MD Unavailable Ce Villalobos MD Unavailable Brissa Tijerina MD Primary Care Provider + Reason for Visit * Reason Onset Date Comments Preprocedure Call 01/18/2025 Spoke with pat ient-she has an appointment on 01/[address] Christy office for H&P. Encounter Details Date Type Department Care Team (Late st Contact Info) Description 01/18/2025 Telephone [facility] Interventional Radiology [address] [place] [address] Kaylene Lundberg, RN Preprocedure Call [...] Recorded Patient Health Questionnaire-2 Score 0 10/31/2022 [facility] - Occupational Stress Questionnaire Answer Date [...] slept in a fdc (including now)? Yes 05/08/2023 Comments No Sex and Gender Information Value Date Recorded Sex Assigned at Female 09/30/2024 10:51 PM LINE UP EXAMINER Legal Sex Female 7:02 PM CDT Gender [...] PM JACQUET Georgina Baez RN Active * [place] Suicide Severity Rating Scale (Screener/Recent Self-Report) Question [...] on filedocumented in this encounter Care Teams Commercial Loan Assistant Relationship Specialty Start Date End Date Brissa Tijerina MD [address] [place] [address] PCP - General FAMILY PRACTICE 11/03/24 Hero Bearden MD Infant Teacher OBGYN 04/04/22 Ce Villalobos MD [address] [place] [address] [place] Software Validation Engineer CARDIOVASCULAR DISEASE 07/18/22 documented as of this encounter
--- OUTSIDE RECORDS SUMMARY | 2025-07-21 22:33 | XMS_ITS | Clinical Summary ---
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
--- OUTSIDE RECORDS SUMMARY | 2025-07-21 22:33 | XMS_ITS | Encounter Summary ---
Author Organization [facility] Address [address] [place] [address] Care Team Providers Care Cloth Cutting Inspector Name Role Phone Yaneth Lagos MD Primary Care Provider [phone] Hero Bearden MD Unavailable Adele Lagos MD Primary Care Provider [phone] Ce Villalobos MD Unavailable Brissa Tijerina MD Primary Care Provider + Encounter Details Date Type Department Care Team (Late st Contact Info) Description 02/19/2019 Abstract [facility] CONVERSION [address] [place] [address] , Generic Conversion, Social History Tobacco Use Types Packs/Day Years Used Date Smoking Tobacco: Never Smokeless Tobacco: Never Alcohol Use Standard Drinks/Week Comments No 0 (1 standard drink = 0.6 oz pur e alcohol) Comments Unknown Sex and Gender Information Value Date Recorded Sex Assigned at Female 09/30/2024 10:51 PM SWORD SWALLOWER Legal Sex Female 7:02 PM CDT Gender Identity Not on file Sexual Orientation Not on file documented as of this encounter Plan of Treatment Not on file documented as of this encounter Visit Diagnoses Not on filedocumented in this encounter Care Teams Cloth Cutting Inspector Relationship Specialty Start Date End Date Yaneth Lagos MD [address] [place] [phone] PCP - General FAMILY PRACTICE 09/17/19 06/15/22 Adele Lagos MD [address] [place] [address] PCP - General INTERNAL MEDICINE 06/16/22 11/02/24 Brissa Tijerina MD [address] [place] [address] PCP - General FAMILY PRACTICE 11/03/24 Hero Bearden MD [address] [phone] Strip Cleaner OBGYN 04/04/22 Ce Villalobos MD [address] [place] [address] [place] Local Superintendent CARDIOVASCULAR DISEASE 07/18/22 documented as of this encounter
--- OUTSIDE RECORDS SUMMARY | 2025-07-21 22:33 | XMS_ITS | Encounter Summary ---
Author Organization [facility] Address [address] [facility] [address] [place] [address] Phone Care Team Providers Care Wrapper Stripper Name Role Phone Brissa Tijerina MD Primary Care Provider U shannon Encounter Details Date Type Department Care Team (Late st Contact Info) Description 05/01/2025 Documentation Only [facility] [address] [facility] [address] [place] [address] [place] [address] Social History Tobacco Use Types [...] (HCC) documented in this encounter Care Teams Wrapper Stripper Relationship Specialty Start Date End Date Brissa Tijerina MD [address] [place] [phone] PCP - General Family Medicine 04/17/25 documented as of this encounter
--- OUTSIDE RECORDS SUMMARY | 2025-07-21 22:33 | XMS_ITS | Encounter Summary ---
Author Organization [facility] Address [address] [place] [address] Care Team Providers Care Radiology Specialist Name Role Phone Hero Bearden MD Unavailable Ce Villalobos MD Unavailable Brissa Tijerina MD Primary Care Provider + Reason for Visit * Reason Onset Date Comments Preprocedure Call 01/13/2025 Agriculture Extension Specialist spoke jojo Landeros about needing H&P within 30 days of MRI with anesthesia appt on 01/20/25. Leti to call PCP to schedule. Encounter Details Date Type Department Care Team (Latest Contact Info) Description 01/13/2025 Pre-Procedure Call [facility] Interventional Radiology [address] [place] [address] Stella Castillo, RN Preprocedure Call (Agriculture Extension Specialist spoke with Leti about needing H&P within [...] Recorded Patient Health Questionnaire-2 Score 0 10/31/2022 [facility] [place] of Occupat ional Health - Occupational Stress [...] place to sleep or slept in a mcfp (including now)? Yes 05/08/2023 Comments No Sex and Gender Information Value Date Recorded Sex Assigned at Female 09/30/2024 10:51 PM CERTIFIED ATHLETIC TRAINER Legal Sex Female 7:02 PM CDT Gender [...] on filedocumented in this encounter Care Teams Radiology Specialist Relationship Specialty Start Date End Date Brissa Tijerina MD [address] [place] [address] PCP - General FAMILY PRACTICE 11/03/24 Hero Bearden MD Clinic Office Coordinator OBGYN 04/04/22 Ce Villalobos MD [address] [place] [address] [place] Certified Solid Waste Facility Operator CARDIOVASCULAR DISEASE 07/18/22 documented as of this encounter
--- OUTSIDE RECORDS SUMMARY | 2025-07-21 22:33 | XMS_ITS | Clinical Summary ---
Author Organization [facility] Address [address] [facility] [address] [place] [address] Care Team Providers Care Sander Hand Name Role Phone Adele Lagos MD Primary Care Provider [phone] Allergies Active Allergy Reactions Criticality Noted Date [...] Other. Active Insulin Disposable Pump (Omnipod 5 [id number] Pods Gen 5) Misc change pod every [...] Sex Assigned at Female 08/12/2024 6:07 PM SAP BODS DEVELOPER Legal Sex Female 4:01 AM SAP BODS DEVELOPER Gender Identity Female 08/12/2024 6:07 PM SAP BODS DEVELOPER Sexual Orientation Not on file Last Filed [...] MEDICARE C [employer] MEDICAID [place] Care Teams Sander Hand Relationship Specialty Start Date End Date Adele Lagos MD [address] [place] [address] PCP - General Family Medicine 07/15/20
--- OUTSIDE RECORDS SUMMARY | 2025-07-21 22:33 | XMS_ITS | Clinical Summary ---
Author Organization [facility] Address [address] [place] [address] Phone Care Team Providers Care Centrifugal Wax Molder Name Role Phone Brissa Tijerina MD Primary [...] misc CHANGE SENSOR EVERY 10 DAYS PER RESTAURANT CREW MEMBER 02/23/20 25 Active dicyclomine (BENTYL) 20 MG [...] BEDTIME Active Insulin Disposable Pump (Omnipod 5 [id number] Pods Gen 5) misc change pod every [...] [facility] [address] [place] [phone] Rich Lorena 05/01/2025 Documentation Only [facility] [address] [place] [address] Rich Lorena 05/01/2025 Orders Only [facility] [address] [place] [phone] Lorena Villanueva 05/01/2025 Telephone [facility] [address] [place] [phone] Rich Lorena from Last 3 Months Immunizations [...] ID:Not on file Type:Not on file Address: [id number] [facility] Medicare Medicare [facility] [place] [address] [place] [address] Care Teams Centrifugal Wax Molder Relationship Specialty Start Date End Date Brissa Tijerina MD [address] [place] [phone] PCP - General Family Medicine 04/17/25
--- OUTSIDE RECORDS SUMMARY | 2025-07-21 22:33 | XMS_ITS | Encounter Summary ---
Author Organization [facility] Address [address] [place] [address] Care Team Providers Care Microsoft Systems Engineer Name Role Phone Yaneth Lagos MD Primary Care Provider [phone] Yaneth Lagos MD Primary Care Provider [phone] Hero Bearden MD Unavailable Adele Lagos MD Primary Care Provider [phone] Ce Villalobos MD Unavailable Brissa Tijerina MD Primary Care Provider + Encounter Details Date Type Department Care Team (Late st Contact Info) Description 06/24/2017 Abstract [facility] [address] [place] [address] , Dot Springer MD Social History Tobacco Use Types Packs/Day Years Used Date Smoking Tobacco: Never Assessed Comments Unknown Sex and Gender Information Value Date Recorded Sex Assigned at Female 09/30/2024 10:51 PM DIRECT RESPONSE CONSULTANT Legal Sex Female 7:02 PM CDT Gender Identity Not on file Sexual Orientation Not on file documented as of this encounter Plan of Treatment Not on file documented as of this encounter Visit Diagnoses Not on filedocumented in this encounter Care Teams Microsoft Systems Engineer Relationship Specialty Start Date End Date Yaneth Lagos MD [facility] [address] [facility] [address] [place] [phone] PCP - General 03/22/17 04/07/18 Yaneth Lagos MD [address] [facility] [address] [place] [address] PCP - General FAMILY PRACTICE 09/17/19 06/15/22 Adele Lagos MD [address] [place] [address] PCP - General INTERNAL MEDICINE 06/16/22 11/02/24 Brissa Tijerina MD [address] [place] [address] PCP - General FAMILY PRACTICE 11/03/24 Hero Bearden MD [address] [phone] Programming Specialist OBGYN 04/04/22 Ce Villalobos MD [address] [place] [address] [place] Food Aide CARDIOVASCULAR DISEASE 07/18/22 documented as of this encounter
[2025-07-22] MEDS: ONDANSETRON HCL ODT 4 MG TABLET PO (00:19)
[2025-07-22] MEDS: BELLADONNA ALK/PHENOB ELIX 10 ML, MAG HYDROX/ALUMINUM HYD/SIMETH 30 ML, LIDOCAINE 2% VI... PO (00:19)
[2025-07-22] MEDS: KETOROLAC (*BKC) 60 MG/2 ML VIAL IM (00:20)
--- NOTE | 2025-07-22 00:26 | PC.NURSE ---
Patient states can I get something more for pain, I will be leaving here in as much pain as I came in. They normally give me morphine. Can I speak to the doctor? YOCASTA and PA notified.
[2025-07-22 00:27] VITALS: BP 150/72; PULSE 68; RESP 18; O2SAT 98
[2025-07-22] MEDS: MORPHINE SULFATE (*CRX) 4 MG/ML INJ IV PUSH (01:47)
[2025-07-22 01:52] VITALS: BP 149/76; PULSE 73; RESP 17; O2SAT 97
[2025-07-27 08:43] LABS: Estimated CRCL calculation 85 ml/min; Estimated Glomerular Filt Rate > 60
== END 2025-07-22 01:54 | disposition home or self-care (01) ==
PROVIDERS: Physician Assistant; PCP Family Medicine
DX: R10.31 Right lower quadrant pain (principal); R10.11 Right upper quadrant pain; R10.32 Left lower quadrant pain; I10 Essential (primary) hypertension; J45.909 Unspecified asthma, uncomplicated; E11.9 Type 2 diabetes mellitus without complications; M19.90 Unspecified osteoarthritis, unspecified site; F17.220 Nicotine dependence, chewing tobacco, uncomplicated; Z79.899 Other long term (current) drug therapy; Z79.4 Long term (current) use of insulin; Z79.82 Long term (current) use of aspirin
CPT/HCPCS: 36415; 74177; 80053; 81001; 82565; 83690; 85025; 87077; 87086; 87147; 87186; 96372; 96374; 96375; 99284; A9270; J1885; J2270; J2405; Q9967

== ENCOUNTER 2025-08-11 13:49 | Emergency (ER) | payer MEDICARE, SELFPAY ==
--- OUTSIDE RECORDS SUMMARY | 2025-08-11 13:51 | XMS_ITS ---
Author Organization Unknown Address [address] [place] [address] [phone] Phone Care Team Providers Care Steam Box Hand Name Role Phone YRN ZEPEDA Attending Unavailable CARRILLO COATS Primary Unavailable Social History Type Status Start Date End Date Code Code Syst em Smoking History Never smoker (Never Smoked) 147582266 SNOMED CT Sex Female Vital Signs Vital Sign Value Unit [place] Value [place] Unit Date/Time Recent/Initial? Code Code System Body Mass Index 43.85 kg/m2 10/24/2024 19:25 Initial 78198 -5 LOINC Systolic Blood Pressure 127 mm[Hg] [...] Saturation 96 % 2024 20:30 Most Recent 22768 -5 LOINC O2 Saturation 97 % 2024 19:25 Initial 70757 -5 LOINC Pulse 61.0 /min 10/24/2024 20:30 Most Recent 8867- 4 LOINC Pulse 67.0 /min 10/24/2024 19:25 Initial 8867- 4 LOINC Respiration 17 /min 10/24/19 20:30 Most Recent 9279- 1 LOINC Respiration 20 /min 10/24/19 19:25 Initial 9279- 1 [facility] Temperature 36.8 Alexandrea 98.3 F 10/24/19 19:25 Initial 8310- 5 [facility] Weight 127.01 kg 280.00 lbs 10/24/2024 19:25 Initial 83429 -7 [facility] Medications Medication Start Date End Date Route Frequency Dose Code Code System Medication Instructions Home Meds Lidoderm 5% Topical application Patch, Extended Release 11/02/2024 02/28/2025 1 6884501 RxNorm 1 patch daily Zofran 4MG Oral Tablet 05/03/2025 Unknown ORAL EVERY 6 HOURS 1 TABLET 619190 RxNorm TAKE 1 TABLET ORAL EVERY 6 [...] Code Syste m BIOPSY/REMOVAL LYMPH NODES completed [id number] SNOMEDCT Problems Problem Start Date Resolved Date Status Code Code System CHRONIC NECK PAIN active 837164164267 7 SNOMED-CT DISORDER OF ROTATOR CUFF active 224696544 SNOMED-CT SPRAIN OF LEFT SHOULDER active 37434777120870296 SNOMED-CT CHRONIC BACK PAIN active 469680182 SN OMED-CT CHRONIC MIGRAINE active 102664764 SNO MED-CT DIABETES active 74339195 SNOMED-CT GASTROPARESES active 415888649 SNOMED -CT ERIKA CELL NEOPLASM active 309189667 SNOMED-CT HYPERTENSION active 27069391 SNOMED- CT DRUG SEEKING BEHAVIOR active 80290499 SNOMED-CT MALINGERING active 32674632 SNOMED-C 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 10/24/2024 resolved 01904193 SNOMED-CT Allergies and Adverse Reactions Allergy Substance Reaction Severity Start Date Concern Status Code Code System PROCHLORPERAZINE go crazy (SNOMED-CT: null) Severe Active 8704 RxNorm ISOSORBIDE MONONITRATE SOB, anxiety (SNOMED-CT: null) Active 33841 RxNorm CLARITHROMYCIN Vomiting (SNOMED-CT: 806750159) Severe Active RxNorm BENADRYL went crazy (SNOMED-CT: null) Severe Active 20340118 RxNorm IMITREX Tachycardia (SNOMED-CT: 2335601) Moderate Active 21760916 RxNorm Plan of Treatment No Data Found Encounters Encounter Diagnosis Start Date Code Code Sys tem Backache 10/24/2024 531105706 [facility] Personal Care Team Section
--- OUTSIDE RECORDS SUMMARY | 2025-08-11 13:51 | XMS_ITS ---
Author Organization Unknown Address [address] [place] [address] [phone] Phone Care Team Providers Care Stiff Neck Loader Name Role Phone YRN ZEPEDA Attending Unavailable CARRILLO COATS Primary Unavailable Social History Type Status Start Date End Date Code Code Syst em Smoking History Never smoker (Never Smoked) 988480910 SNOMED CT Sex Female Vital Signs Vital Sign Value Unit [place] Value [place] Unit Date/Time Recent/Initial? Code Code System Body Mass Index 43.85 kg/m2 10/12/2024 21:32 Initial 93333 -5 LOINC Systolic Blood Pressure 136 mm[Hg] 10/13/2024 01:58 Most Recent 8480- 6 LOINC Diastolic Blood Pressure 72 mm[Hg] 10/13/2024 01:58 Most Recent 8462- 4 LOINC Systolic Blood Pressure 140 mm[Hg] 10/12/2024 21:32 Initial 8480- 6 LOINC Diastolic Blood Pressure 78 mm[Hg] 10/12/2024 21:32 Initial 8462- 4 LOINC Body Surface Area 2.45 m2 10/12/2024 21:32 Initial 3140- 1 LOINC Height 170.180 0 cm 67.00 in 10/12/2024 21:32 Initial 8302- 2 LOINC O2 Saturation 97 % 2024 01:58 Most Recent 17192 -5 LOINC O2 Saturation 95 % 2024 21:32 Initial 69384 -5 LOINC Pulse 70.0 /min 10/13/2024 01:58 Most Recent 8867- 4 LOINC Pulse 75.0 /min 10/12/2024 21:32 Initial 8867- 4 LOINC Respiration 16 /min 10/13/19 01:58 Most Recent 9279- 1 LOINC Respiration 17 /min 10/12/19 21:32 Initial 9279- 1 [facility] Temperature 36.9 Alexandrea 98.5 F 10/12/19 21:32 Initial 8310- 5 [facility] Weight 127.01 kg 280.00 lbs 10/12/2024 21:32 Initial 71059 -7 [facility] Medications Medication Start Date End Date Route Frequency Dose Code Code System Medication Instructions Home Meds Lidoderm 5% Topical application Patch, Extended Release 11/02/2024 02/28/2025 1 2319214 RxNorm 1 patch daily Zofran 4MG Oral Tablet 05/03/2025 Unknown ORAL EVERY 6 HOURS 1 TABLET 894600 RxNorm TAKE 1 TABLET ORAL EVERY 6 [...] Code Code System CHRONIC NECK PAIN active 970994794140 7 SNOMED-CT DISORDER OF ROTATOR CUFF active 797018363 SNOMED-CT SPRAIN OF LEFT SHOULDER active 66386108996962754 SNOMED-CT CHRONIC BACK PAIN active 545408831 SN OMED-CT CHRONIC MIGRAINE active 290442893 SNO MED-CT DIABETES active 68168308 SNOMED-CT GASTROPARESES active 090709168 SNOMED -CT ERIKA CELL NEOPLASM active 201951231 SNOMED-CT HYPERTENSION active 07410836 SNOMED- CT DRUG SEEKING BEHAVIOR active 52402694 SNOMED-CT MALINGERING active 60024103 SNOMED-C 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 10/24/2024 resolved 06438762 SNOMED-CT Allergies and Adverse Reactions Allergy Substance Reaction Severity Start Date Concern Status Code Code System PROCHLORPERAZINE go crazy (SNOMED-CT: null) Severe Active 8704 RxNorm ISOSORBIDE MONONITRATE SOB, anxiety (SNOMED-CT: null) Active 20032 RxNorm CLARITHROMYCIN Vomiting (SNOMED-CT: 131460047) Severe Active 37705 RxNorm BENADRYL went crazy (SNOMED-CT: null) Severe Active 20340118 RxNorm IMITREX Tachycardia (SNOMED-CT: 1933491) Moderate Active 21760916 RxNorm Plan of Treatment No Data Found Encounters Encounter Diagnosis Start Date Code Code Sys tem Backache 10/12/2024 630498232 [facility] Personal Care Team Section
--- OUTSIDE RECORDS SUMMARY | 2025-08-11 13:52 | XMS_ITS ---
Author Organization Unknown Address [address] [place] [address] [phone] Phone Care Team Providers Care Yarn Dyer Name Role Phone PREMA Kyle Attending Unavailable CARRILLO COATS Primary Unavailable Social History Type Status Start Date End Date Code Code Syst em Smoking History Never smoker (Never Smoked) 835779985 SNOMED CT Sex Female Vital Signs Vital Sign Value Unit [place] Value [place] Unit Date/Time Recent/Initial? Code Code System Body Mass Index 42.76 kg/m2 06/11/2025 18:25 Initial 64151 -5 LOINC Systolic Blood Pressure 142 mm[Hg] 06/11/2025 21:09 Most Recent 8480- 6 LOINC Diastolic Blood Pressure 95 mm[Hg] 06/11/2025 21:09 Most Recent 8462- 4 LOINC Systolic Blood Pressure 171 mm[Hg] 06/11/2025 18:25 Initial 8480- 6 LOINC Diastolic Blood Pressure 87 mm[Hg] 06/11/2025 18:25 Initial 8462- 4 LOINC Body Surface Area 2.42 m2 06/11/2025 18:25 Initial 3140- 1 LOINC Height 170.180 0 cm 67.00 in 06/11/2025 18:25 Initial 8302- 2 LOINC O2 Saturation 97 % 2024 21:09 Most Recent 60344 -5 LOINC O2 Saturation 97 % 2024 18:25 Initial 35328 -5 LOINC Pulse 92.0 /min 06/11/2025 21:09 Most Recent 8867- 4 LOINC Pulse 98.0 /min 06/11/2025 18:25 Initial 8867- 4 LOINC Respiration 20 /min 06/11/20 25 21:09 Most Recent 9279- 1 LOINC Respiration 18 /min 06/11/20 18:25 Initial 9279- 1 LOINC Temperature 36.7 Alexandrea 98.0 F 06/11/20 21:09 Most Recent 8310- 5 LOINC Temperature 36.7 Alexandrea 98.0 F 06/11/20 18:25 Initial 8310- 5 LOINC Weight 123.83 kg 273.00 lbs 06/11/2025 18:25 Initial 69846 -7 [facility] Medications Medication Start Date End Date Route Frequency Dose Code Code System Medication Instructions Home Meds Zofran 4MG Oral Tablet 05/03/2025 Unknown ORAL EVERY 6 HOURS 1 TABLET 025089 RxNorm TAKE 1 TABLET ORAL EVERY 6 [...] Code Code System CHRONIC NECK PAIN active 111025920500 7 SNOMED-CT DISORDER OF ROTATOR CUFF active 701702434 SNOMED-CT SPRAIN OF LEFT SHOULDER active 49941793941851879 SNOMED-CT CHRONIC BACK PAIN active 124905124 SN OMED-CT CHRONIC MIGRAINE active 975065098 SNO MED-CT DIABETES active 58714269 SNOMED-CT GASTROPARESES active 762685006 SNOMED -CT ERIKA CELL NEOPLASM active 095832551 SNOMED-CT HYPERTENSION active 47661738 SNOMED- CT DRUG SEEKING BEHAVIOR active 88552120 SNOMED-CT MALINGERING active 70406458 SNOMED-C 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 10/24/2024 resolved 20069450 SNOMED-CT Allergies and Adverse Reactions Allergy Substance Reaction Severity Start Date Concern Status Code Code System PROCHLORPERAZINE go crazy (SNOMED-CT: null) Severe Active 8704 RxNorm ISOSORBIDE MONONITRATE SOB, anxiety (SNOMED-CT: null) Active 24480 RxNorm CLARITHROMYCIN Vomiting (SNOMED-CT: 146802100) Severe Active 27977 RxNorm BENADRYL went crazy (SNOMED-CT: null) Severe Active 147381 RxNorm IMITREX Tachycardia (SNOMED-CT: 3571619) Moderate Active 110457 RxNorm Plan of Treatment No Data Found Encounters Encounter Diagnosis Start Date Code Code Sys tem Migraine, unspecified, not i ntractable, without status migrainosus 06/11/2025 SNOMED-CT Personal Care Team Section
--- OUTSIDE RECORDS SUMMARY | 2025-08-11 13:52 | XMS_ITS | Clinical Summary ---
Author Organization [facility] Address [address] [place] [address] Phone Care Team Providers Care Field Service Consultant Name Role Phone Unavailable Primary Care Provider Unavailabl e Social History Tobacco Use Types Packs/Day Years Used Date Smoking Tobacco: Never Assessed Comments Unknown Sex and Gender Information Value Date Recorded Sex Assigned at Not on file Legal Sex Female 6:40 PM HADOOP CONSULTANT Gender Identity Not on file Sexual [...]
--- OUTSIDE RECORDS SUMMARY | 2025-08-11 13:52 | XMS_ITS ---
Author Organization Unknown Address [address] [place] [address] [phone] Phone Care Team Providers Care Jackhammer Splitter Operator Name Role Phone ELAINE ATWOOD Registered Nurse Unavailable COLBY JONES Attending Unavailable CARRILLO COATS Primary Unavailable Results XR SHOULDER COMPLETE 2 OR GR EATER VWS LT - Completed: 12/06/2024 21:41 LOINC: [address] [address] Name: TERE ALANIS Exam: XR SHOULDER COMPLETE 2 OR GREATER VWS LT Exam Date: 12/06/2024 : 1970 Acc#: [id number] Ordering: SHADI BOWMAN Referrer: PAULY VIZCAINO EXAM [...] Emperatriz Horne M.D. AT: AT Report ID: [id number] Reading Location: [id number] Social History Type Status Start Date End Date Code Code Syst em Smoking History Never smoker (Never Smoked) 134520014 SNOMED CT Sex Female Vital Signs Vital Sign Value Unit [place] Value [place] Unit Date/Time Recent/Initial? Code Code System Body Mass Index 44.32 kg/m2 12/06/2024 19:57 Initial 03713 -5 LOINC Systolic Blood Pressure 172 mm[Hg] [...] Saturation 97 % 2024 22:40 Most Recent 63447 -5 LOINC O2 Saturation 97 % 2024 19:57 Initial 78241 -5 LOINC Pulse 84.0 /min 12/06/2024 22:40 Most Recent 8867- 4 LOINC Pulse 80.0 /min 12/06/2024 19:57 Initial 8867- 4 LOINC Respiration 20 /min 12/07/19 22:40 Most Recent 9279- 1 LOINC Respiration 20 /min 12/07/19 19:57 Initial 9279- 1 LOINC Temperature 36.4 Alexandrea 97.6 F 12/07/19 19:57 Initial 8310- 5 LOINC Weight 128.37 kg 283.00 lbs 12/06/2024 19:57 Initial 34245 -7 LOINC Medications Medication Start Date End Date Route Frequency Dose Code Code System Medication Instructions Home Meds Lidoderm 5% Topical application Patch, Extended Release 11/02/2024 02/28/2025 1 4354858 RxNorm 1 patch daily Zofran 4MG Oral Tablet 05/03/2025 Unknown ORAL EVERY 6 HOURS 1 TABLET 668512 RxNorm TAKE 1 TABLET ORAL EVERY 6 [...] Code Code System CHRONIC NECK PAIN active 032438919943 7 SNOMED-CT DISORDER OF ROTATOR CUFF active 301043319 SNOMED-CT SPRAIN OF LEFT SHOULDER active 25275319831722461 SNOMED-CT CHRONIC BACK PAIN active 839827377 SN OMED-CT CHRONIC MIGRAINE active 337087955 SNO MED-CT DIABETES active 14270915 SNOMED-CT GASTROPARESES active 230578983 SNOMED -CT ERIKA CELL NEOPLASM active 371804934 SNOMED-CT HYPERTENSION active 89544587 SNOMED- CT DRUG SEEKING BEHAVIOR active 70078722 SNOMED-CT MALINGERING active 82558521 SNOMED-C 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 10/24/2024 resolved 60626962 SNOMED-CT Allergies and Adverse Reactions Allergy Substance Reaction Severity Start Date Concern Status Code Code System PROCHLORPERAZINE go crazy (SNOMED-CT: null) Severe Active 8704 RxNorm ISOSORBIDE MONONITRATE SOB, anxiety (SNOMED-CT: null) Active 87799 RxNorm CLARITHROMYCIN Vomiting (SNOMED-CT: 554223628) Severe Active 09616 RxNorm BENADRYL went crazy (SNOMED-CT: null) Severe Active 368101 RxNorm IMITREX Tachycardia (SNOMED-CT: 8020801) Moderate Active 840421 RxNorm Plan of Treatment No Data Found Encounters Encounter Diagnosis Start Date Code Code Sys tem 12/06/2024 [id number] SNOMED-CT Personal Care Team Section
--- OUTSIDE RECORDS SUMMARY | 2025-08-11 13:52 | XMS_ITS | Clinical Summary ---
Author Organization [facility] Address [address] [facility] [address] [place] [address] Care Team Providers Care Classified Ad Taker Name Role Phone Adele Lagos MD Primary Care Provider [phone] Allergies Active Allergy Reactions Criticality Noted Date [...] Other. Active Insulin Disposable Pump (Omnipod 5 [id number] Pods Gen 5) Misc change pod every [...] Sex Assigned at Female 08/12/2024 6:07 PM CLAIM PROCESSING SPECIALIST Legal Sex Female 4:01 AM CLAIM PROCESSING SPECIALIST Gender Identity Female 08/12/2024 6:07 PM CLAIM PROCESSING SPECIALIST Sexual Orientation Not on file Last Filed [...] MEDICARE C [employer] [place] Care Teams Classified Ad Taker Relationship Specialty Start Date End Date Adele Lagos MD [address] [place] [address] PCP - General Family Medicine 07/15/20
--- OUTSIDE RECORDS SUMMARY | 2025-08-11 13:52 | XMS_ITS ---
Author Organization Unknown Address [address] [place] [address] [phone] Phone Care Team Providers Care Undercoater Name Role Phone PAPO RAMOS Registered Nurse Unavailable JULIETA SHAW Attending Unavailable CARRILLO COATS Primary Unavailable Social History Type Status Start Date End Date Code Code Syst em Smoking History Never smoker (Never Smoked) 106560106 SNOMED CT Sex Female Vital Signs Vital Sign Value Unit [place] Value [place] Unit Date/Time Recent/Initial? Code Code System Body Mass Index 43.07 kg/m2 05/23/2025 17:00 Initial 10631 -5 LOINC Systolic Blood Pressure 140 mm[Hg] [...] Saturation 97 % 2024 18:35 Most Recent 14654 -5 LOINC O2 Saturation 99 % 2024 17:00 Initial 09081 -5 LOINC Pulse 74.0 /min 05/23/2025 18:35 Most Recent 8867- 4 LOINC Pulse 79.0 /min 05/23/2025 17:00 Initial 8867- 4 LOINC Respiration 21 /min 05/23/20 18:35 Most Recent 9279- 1 LOINC Respiration 18 /min 05/23/20 17:00 Initial 9279- 1 [facility] Temperature 36.9 Alexandrea 98.4 F 05/23/20 17:00 Initial 8310- 5 [facility] Weight 124.74 kg 275.00 lbs 05/23/2025 17:00 Initial 35295 -7 [facility] Medications Medication Start Date End Date Route Frequency Dose Code Code System Medication Instructions Home Meds Zofran 4MG Oral Tablet 05/03/2025 Unknown ORAL EVERY 6 HOURS 1 TABLET 780264 RxNorm TAKE 1 TABLET ORAL EVERY 6 [...] Code Code System CHRONIC NECK PAIN active 203705619881 7 SNOMED-CT DISORDER OF ROTATOR CUFF active 642774695 SNOMED-CT SPRAIN OF LEFT SHOULDER active 83172661919169471 SNOMED-CT CHRONIC BACK PAIN active 983333456 SN OMED-CT CHRONIC MIGRAINE active 595645925 SNO MED-CT DIABETES active 16474819 SNOMED-CT GASTROPARESES active 205332637 SNOMED -CT ERIKA CELL NEOPLASM active 947734031 SNOMED-CT HYPERTENSION active 99786263 SNOMED- CT DRUG SEEKING BEHAVIOR active 19861411 SNOMED-CT MALINGERING active 83661982 SNOMED-C 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 10/24/2024 resolved 04356997 SNOMED-CT Allergies and Adverse Reactions Allergy Substance Reaction Severity Start Date Concern Status Code Code System PROCHLORPERAZINE go crazy (SNOMED-CT: null) Severe Active 8704 RxNorm ISOSORBIDE MONONITRATE SOB, anxiety (SNOMED-CT: null) Active 62452 RxNorm CLARITHROMYCIN Vomiting (SNOMED-CT: 655026508) Severe Active 78981 RxNorm BENADRYL went crazy (SNOMED-CT: null) Severe Active 20340118 RxNorm IMITREX Tachycardia (SNOMED-CT: 6569779) Moderate Active 182735 RxNorm Plan of Treatment No Data Found Encounters Encounter Diagnosis Start Date Code Code Sys tem Migraine 05/23/2025 21419710 SNOMED-CT Personal Care Team Section
--- OUTSIDE RECORDS SUMMARY | 2025-08-11 13:53 | XMS_ITS ---
Author Organization Unknown Address [address] [place] [address] [phone] Phone Care Team Providers Care Survey Worker Name Role Phone AYUSH SAM Registered Nurse Unavailable PREMA Kyle Attending Unavailable PINKY Kyle Primary Unavailable Results CT BRAIN HEAD WO CONTRAST - Completed: 01/22/2025 18:52 LOINC: L [address] [address] Name: TERE ALANIS Exam: CT BRAIN HEAD WO CONTRAST Exam Date: 01/22/2025 : 1970 Acc#: [id number] Ordering: SHADI BOWMAN Referrer: BK VANCE EXAM DESCRIPTION: CT BRAIN HEAD WO CONTRAST REASON FOR STUDY: Headache since Thursday. Hx migraines Duration: 2 days TECHNIQUE: Axial images acquired through the brain without intravenous contrast. Images stored on PACS. Automated exposure control was used as a dose optimization technique for this examination. COMPARISON: None FINDINGS: BRAIN: No hemorrhage, edema or mass effect. No recent infarct. Moderate diffuse atrophy of the brain is evident EXTRA-AXIAL SPACES: No fluid collections. No masses. CALVARIUM: No fracture. SINUSES/MASTOIDS: No fluid or mucosal thickening. ORBITS: No significant abnormality. OTHER: No other significant abnormality. IMPRESSION: No acute intracranial findings. THIS IS AN ELECTRONICALLY VERIFIED FINAL REPORT 01/22/2025 8:03 PM - Electronically signed by Noé Christensen M.D. KH: ROBERTH Report ID: [id number] Reading Location: [id number] Social History Type Status Start Date End Date Code Code Syst em Smoking History Never smoker (Never Smoked) 503296977 SNOMED CT Sex Female Vital Signs Vital Sign Value Unit [place] Value [place] Unit Date/Time Recent/Initial? Code Code System Body Mass Index 44.64 kg/m2 01/22/2025 18:18 Initial 74602 -5 LOINC Systolic Blood Pressure 144 mm[Hg] 01/22/2025 20:45 Most Recent 8480- 6 LOINC Diastolic Blood Pressure 68 mm[Hg] 01/22/2025 20:45 Most Recent 8462- 4 LOINC Systolic Blood Pressure 176 mm[Hg] 01/22/2025 18:18 Initial 8480- 6 LOINC Diastolic Blood Pressure 78 mm[Hg] 01/22/2025 18:18 Initial 8462- 4 LOINC Body Surface Area 2.47 m2 01/22/2025 18:18 Initial 3140- 1 LOINC Height 170.180 0 cm 67.00 in 01/22/2025 18:18 Initial 8302- 2 LOINC O2 Saturation 95 % 2024 20:45 Most Recent 55463 -5 LOINC O2 Saturation 96 % 2024 18:18 Initial 91292 -5 LOINC Pulse 66.0 /min 01/22/2025 20:45 Most Recent 8867- 4 LOINC Pulse 64.0 /min 01/22/2025 18:18 Initial 8867- 4 LOINC Respiration 17 /min 01/23/20 25 20:45 Most Recent 9279- 1 LOINC Respiration 18 /min 01/23/20 25 18:18 Initial 9279- 1 LOINC Temperature 36.8 Alexandrea 98.3 F 01/23/20 25 18:18 Initial 8310- 5 LOINC Weight 129.27 kg 285.00 lbs 01/22/2025 18:18 Initial 48977 -7 LOINC Medications Medication Start Date End Date Route Frequency Dose Code Code System Medication Instructions Home Meds Lidoderm 5% Topical application Patch, Extended Release 11/02/2024 02/28/2025 1 7468107 RxNorm 1 patch daily Zofran 4MG Oral Tablet 05/03/2025 Unknown ORAL EVERY 6 HOURS 1 TABLET 076363 RxNorm TAKE 1 TABLET ORAL EVERY 6 [...] Code Code System CHRONIC NECK PAIN active 457273490965 7 SNOMED-CT DISORDER OF ROTATOR CUFF active 122372153 SNOMED-CT SPRAIN OF LEFT SHOULDER active 77627299881836878 SNOMED-CT CHRONIC BACK PAIN active 127843206 SN OMED-CT CHRONIC MIGRAINE active 260312513 SNO MED-CT DIABETES active 77221120 SNOMED-CT GASTROPARESES active 573551004 SNOMED -CT ERIKA CELL NEOPLASM active 295846733 SNOMED-CT HYPERTENSION active 67497696 SNOMED- CT DRUG SEEKING BEHAVIOR active 31958353 SNOMED-CT MALINGERING active 47280465 SNOMED-C 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 10/24/2024 resolved 53787781 SNOMED-CT Allergies and Adverse Reactions Allergy Substance Reaction Severity Start Date Concern Status Code Code System PROCHLORPERAZINE go crazy (SNOMED-CT: null) Severe Active 8704 RxNorm ISOSORBIDE MONONITRATE SOB, anxiety (SNOMED-CT: null) Active 13991 RxNorm CLARITHROMYCIN Vomiting (SNOMED-CT: 989547494) Severe Active 11685 RxNorm BENADRYL went crazy (SNOMED-CT: null) Severe Active 553701 RxNorm IMITREX Tachycardia (SNOMED-CT: 6049465) Moderate Active 203065 RxNorm Plan of Treatment No Data Found Encounters Encounter Diagnosis Start Date Code Code Sys tem Migraine 01/22/2025 22493439 SNOMED-CT Personal Care Team Section Discharge Summary Notes CANDY Spring 01/22/2025 20:58 filter failed to render (id: '${filterNoteHistoryId}') filter failed to render (id: '${filterNoteHistoryId}') filter failed to render (id: '${filterNoteHistoryId}') ED Nursing Discharge Disposition Checklist Stop times completed in order chronology for all IV fluids / IVPB medications I & O's entered in vital signs Discharge [ x ] Home [ ] prison [ ] Residential [ ] Left AMA [ ] AMA disclosure signed [ ] Refused to sign disclosure [ ] Left without being seen [ ] Other: Discharge Instructions Given to: patient [ x ] Verbalizes understanding of instructions given Patient Condition: stable Time of Departure: 2044 Mode of Departure: ambulatory Accompanied by: none Prescriptions Given to: NA [ ] Dispense pack given Dispense Pack #: Admission Admit to Unit: Time Ordered: Admit Status: [ ] Observation [ ] Full admit [ ] Surgical outpatient Admitting Doctor: Admitting Diagnosis: Time of Report: Room Number: Time Unit Notified Pt. Ready: Report Given to: If Sepsis, Sepsis Protocol Completed: [ ] Yes [ ] No Reason for Delay in Admission: Mode of Departure: Patient Condition: Time of Departure: To Operating Room - Preoperative Decolonization Nozin Administered Times: Chlorhexidine Skin Cleansing 3 pack (6 wipe) - Generalized prep 2 wipe - Emergent operative site prep Transfer Time Decision Made to Transfer: EMS Reported to: Mode of Transfer: Transfer to: [ ] Transfer packet complete and given to transport person Transfer Diagnosis: Receiving Facility, Report to: Time of Departure: Accepting Physician: Patient Condition: Time of : Disposition of Belongings: Time of Body Released to Home: Home: Signature: Ariana Singh RN.
--- OUTSIDE RECORDS SUMMARY | 2025-08-11 13:53 | XMS_ITS | Clinical Summary ---
Author Organization [facility] Virtual Care Address [address] [place] [phone] Phone Care Team Providers Care Can Top Setter Name Role Phone Brissa Tijerina MD Primary Care Provider [phone] Allergies Active Allergy Reactions Criticality Noted Date Comments Clarithromycin Diphenhydramine Agitation Low Isosorbide Mononitrate Agitation Low 07/13/2025 Metoclopramide Other (See comments) Low Patient can take PO form of Reglan just not IV or Im. Pt gets irritated when taking these IV or IM form. Prochlorperazine Agitation Low Sumatriptan Vomiting Low Medications atorvastatin (LIPITOR) 40 mg tablet 05/25/20 17 Active acyclovir (ZOVIRAX) 400 mg tablet 07/03/20 17 Active insulin lispro (HumaLOG) 100 unit/mL injection Inject under the skin. Active ketorolac (TORADOL) 10 mg tablet Take 10 mg by mouth. Active insulin glargine (LANTUS) 100 unit/mL injection Inject under the skin. Active citalopram (CeleXA) 40 mg tablet Take 40 mg by mouth. Active butalbital-acetami nophen-caffeine (FIORICET,ESGIC) 50-300-40 mg per capsule Take by mouth. Active butalbital-acetami nophen-caff (ESGIC) 50-325-40 mg per capsule 07/11/20 17 Active amLODIPine (NORVASC) 5 mg tablet Take 5 mg by mouth. Active AZURETTE, 28, 0.15-0.02 mgx21 /0.01 mg x 5 per tablet 08/13/20 17 Active doxepin (SINEquan) 25 mg capsule 07/11/20 17 Active glipiZIDE (GLUCOTROL) 10 mg tabletIndications: type 2 diabetes mellitus 08/13/20 17 Active metoprolol XL (TOPROL-XL) 200 mg 24 hr tablet 08/13/20 17 Active ondansetron (ZOFRAN) 4 mg tablet Take 4 mg by mouth. 08/25/20 15 Active dicyclomine (BENTYL) 20 mg tablet 08/17/20 17 Active famotidine (PEPCID) 20 mg tablet 08/17/20 17 Active metoclopramide (REGLAN) 10 mg tablet Take 10 mg by mouth 4 (four) times a day. Active triamcinolone (KENALOG) 0.1 % paste Apply 0.25 inches to teeth 3 (three) times a day. 5 g 1 12/06/19 18 Active DOXEPIN HCL, BULK, MISC Take 75 mg by mouth nightly. Active gabapentin (NEURONTIN) 300 mg capsuleIndications :Neuropathic Pain Take 2 capsules (600 mg total) by mouth 3 (three) times a day 90 capsule 02/07/20 20 Active cyclobenzaprine (FLEXERIL) 10 mg tabletIndications: Muscle Spasm Take 1 tablet (10 mg total) by mouth 3 (three) times a day as needed for muscle spasms 21 tablet 02/08/20 20 Active HYDROcodone-acetam inophen (NORCO) 5-325 mg per tabletIndications: Pain Take 1 tablet by mouth every 6 (six) hours as needed for pain Do not exceed 8 tablets/day . 20 tablet 02/23/20 20 Active ondansetron ODT (ZOFRAN-ODT) 4 mg disintegrating tablet Take 1 tablet (4 mg total) by mouth every 8 (eight) hours as needed for nausea 20 tablet 07/07/20 25 Active HYDROcodone-acetam inophen (NORCO) 5-325 mg per tabletIndications: Pain Take 1 tablet by mouth every 6 (six) hours as needed for pain for up to 12 doses 12 tablet 07/07/20 25 Active loperamide (IMODIUM) 2 mg capsule Take 1 capsule (2 mg total) by mouth 4 (four) times a day as needed for diarrhea 12 capsule 07/07/20 25 Active ondansetron (ZOFRAN) 4 mg tablet Take 1 tablet (4 mg total) by mouth every 6 (six) hours as needed for nausea or vomiting 12 tablet 07/23/20 25 Active dicyclomine (BENTYL) 20 mg tablet Take 1 tablet (20 mg total) by mouth every 6 (six) hours as needed (abdominal cramping) 12 tablet 07/23/20 25 Active metoclopramide (REGLAN) 10 mg tablet Take 1 tablet (10 mg total) by mouth every 6 (six) hours 10 tablet 07/31/20 25 Active ondansetron (ZOFRAN) 4 mg tablet Take 1 tablet (4 mg total) by mouth every 6 (six) hours 12 tablet 08/05/20 25 Active metoclopramide (REGLAN) 10 mg tablet Take 1 tablet (10 mg total) by mouth every 6 (six) hours 10 tablet 07/31/20 025 Discontinued lidocaine viscous (XYLOCAINE) 2 % solution Apply 10 mL to the mouth or throat every 6 (six) hours as needed (For heartburn) for up to 5 days 100 mL 08/05/20 025 Active Problems Problem Noted Date Diagnosed Date Acute exacerbation of chronic low back pain 11/13 Aphthous ulcer of tongue 12/05/2017 Migraine without aura and wi thout status migrainosus, not intractable 08/26/2017 Encounters Date Type Department Care Team Description 08/05/2025 6:03 PM [facility] - 08/05/2025 9:57 PM [facility] Emergency Department [address] [place] [address] Abdominal pain, unspecified abdominal location (Primary Dx) Discharge Disposition: Discharge to home or self care 07/31/2025 5:53 PM [facility] [employer] [facility] - 07/31/2025 9:13 PM [facility] Emergency Department [address] [place] [address] Nausea and vomiting, unspecified vomiting type (Primary Dx); Abdominal pain, unspecified abdominal location Discharge Disposition: Discharge to home or self care 07/23/2025 4:26 PM [facility] [employer] [facility] - 07/23/2025 7:22 PM [facility] Emergency Department [address] [place] [address] Abdominal pain, unspecified abdominal location (Primary Dx); Vomiting and diarrhea Discharge Disposition: Discharge to home or self care 07/13/2025 6:23 AM CDT - 07/13/2025 8:59 AM CDT Emergency [facility] Emergency Department [address] [place] [address] Yves Andre MD Chest pain, unspecified type (Primary Dx) Discharge Disposition: Discharge to home or self care 07/07/2025 12:23 PM CDT - 07/07/2025 3:20 PM CDT Emergency [facility] Emergency Department [address] [place] [address] Abdominal pain, unspecified abdominal location (Primary Dx); Diarrhea, unspecified type Discharge Disposition: Discharge to home or self care 06/25/2025 9:29 PM CDT - 06/25/2025 11:28 PM CDT Emergency [facility] Emergency Department [address] [place] [id number] Rox Amos MD Right lower quadrant abdominal pain (Primary Dx) Discharge Disposition: Discharge to home or self care 05/24/2025 Orders Only [facility] Medical [facility] Cardiology [address] [place] [address] Wm De La Garza MD from Last [...] making you feel afraid or unsafe? Denies 08/05/2025 Comments No Sex and Gender Information Value Date Recorded Sex Assigned at Not on file Legal Sex Female 2:45 AM SUPERVISOR ENGINE REPAIR Gender Identity Not on file Sexual Orientation Not on file Last Filed Vital Signs Vital Sign Reading Time Taken Comments Blood Pressure 153/71 08/05/2025 5:56 PM [employer] ENGINE REPAIR Pulse 68 08/05/2025 5:56 PM SUPERVISOR ENGINE REPAIR Temperature 36.3 C (97.4 F) 08/05/2025 5:56 PM SUPERVISOR ENGINE REPAIR Respiratory Rate 16 08/05/2025 5:56 PM SUPERVISOR ENGINE REPAIR Oxygen Saturation 100% 08/05/2025 5:56 PM SUPERVISOR ENGINE REPAIR Inhaled Oxygen Concentration - - Weight 123.4 kg (272 lb) 08/05/2025 5:56 PM SUPERVISOR ENGINE REPAIR Height 170.2 cm (5' 7) 08/05/2025 5:56 PM SUPERVISOR ENGINE REPAIR Body Mass Index 42.6 08/05/2025 5:56 PM SUPERVISOR ENGINE REPAIR Plan of Treatment Health Maintenance Due Date Last Done Comments Breast Cancer Screening-Mammogram 1970 Colon Cancer Screening-Colonoscopy 1970 Depression Screening 1970 Hepatitis C Screening 1970 Hepatitis B Screening 1988 Regular Well Visit/Exam 18-64 1988 DTaP/Tdap/Td Vaccine (2 - Td or Tdap) 05/31/2017 05/31/2007 Cervical Cancer Screening 10/31/2023 10/31/2022 Covid-19 Vaccine ( season) 2025 09/13/2021, 12/14/2020, 11/16/2020 Influenza Vaccine (#1) 2025 , 06/16/2021, 09/29/2020, Additional history exists Pneumococcal vaccine <65 Aged Out 10/02/2020 No longer eligible based on patient's age to complete this topic Zoster Vaccine Completed 09/13/2021, 06/16/2021 Procedures Procedure Name Priority Date/Time Associated Diagnosis Comments CT ABDOMEN PELVIS W CONTRAST ED 08/05/2025 9:14 PM [employer] ENGINE REPAIR EGFR STAT 08/05/2025 6:06 PM SUPERVISOR ENGINE REPAIR DIFFERENTIAL AUTO STAT 08/05/2025 6:0 6 PM SUPERVISOR ENGINE REPAIR LIPASE STAT 08/05/2025 6:06 PM SUPERVISOR ENGINE REPAIR COMPREHENSIVE METABOLIC PANEL STAT 08/05/2025 6:06 PM SUPERVISOR ENGINE REPAIR CBC WITH AUTO DIFFERENTIAL STAT 08/05/2025 6:06 PM SUPERVISOR ENGINE REPAIR POCT GLUCOSE DEVICE Routine 07/31/2025 8 :42 PM SUPERVISOR ENGINE REPAIR SEPSIS LACTATE WITH REFLEX STAT 07/31/2025 8:[address] [address] ABDOMEN PELVIS W CONTRAST ED 07/31/2025 7:11 PM SUPERVISOR ENGINE REPAIR URINALYSIS, MICROSCOPIC ONLY STAT 07/31/2025 7:04 PM SUPERVISOR ENGINE REPAIR URINALYSIS AND REFLEX TO MICROSCOPIC AND CULTURE STAT 07/31/2025 7:04 PM SUPERVISOR ENGINE REPAIR EGFR STAT 07/31/2025 5:15 PM SUPERVISOR ENGINE REPAIR DIFFERENTIAL AUTO STAT 07/31/2025 5:1 5 PM SUPERVISOR ENGINE REPAIR LIPASE STAT 07/31/2025 5:15 PM SUPERVISOR ENGINE REPAIR COMPREHENSIVE METABOLIC PANEL STAT 07/31/2025 5:15 PM SUPERVISOR ENGINE REPAIR CBC WITH AUTO DIFFERENTIAL STAT 07/31/2025 5:15 PM SUPERVISOR ENGINE REPAIR XR ELBOW RIGHT 2 OR MORE VIEWS ED 07/23/2025 5:44 PM SUPERVISOR ENGINE REPAIR URINALYSIS, MICROSCOPIC ONLY STAT 07/23/2025 5:19 PM SUPERVISOR ENGINE REPAIR URINALYSIS AND REFLEX TO MICROSCOPIC AND CULTURE STAT 07/23/2025 5:19 PM SUPERVISOR ENGINE REPAIR POCT GLUCOSE DEVICE Routine 07/23/2025 5 :18 PM SUPERVISOR ENGINE REPAIR EGFR STAT 07/23/2025 3:51 PM SUPERVISOR ENGINE REPAIR DIFFERENTIAL AUTO STAT 07/23/2025 3:5 1 PM SUPERVISOR ENGINE REPAIR LIPASE STAT 07/23/2025 3:51 PM SUPERVISOR ENGINE REPAIR COMPREHENSIVE METABOLIC PANEL STAT 07/23/2025 3:51 PM SUPERVISOR ENGINE REPAIR CBC WITH AUTO DIFFERENTIAL STAT 07/23/2025 3:51 PM SUPERVISOR ENGINE REPAIR TROPONIN T HIGH-SENSITIVITY 2-HOUR Timed 07/13/2025 8:01 [...] CDT from Last 3 Months Results * CT Abdomen Pelvis W Contrast (08/05/2025 9:14 PM SUPERVISOR ENGINE REPAIR) Anatomical Region Laterality Modality Body N/A Computed Tomogra phy 08/05/2025 9:21 PM [employer] ENGINE REPAIR Impressions 08/05/2025 9:21 PM SUPERVISOR ENGINE REPAIR 1. No acute intra-abdominal pathology. Electronically signed by: Kal Clark M.D., MPH Narrative 08/05/2025 9:21 PM SUPERVISOR ENGINE REPAIR EXAMINATION: CT ABDOMEN PELVIS W CONTRAST TECHNIQUE: Computed tomographic examination of the abdomen and pelvis was performed with intravenous contrast. HISTORY: Nonlocalized abdominal pain COMPARISON:07/31/2025 FINDINGS: Visualized lung bases are normal. Liver spleen pancreas adrenal glands kidneys are normal. There is diffuse diverticulosis. I do not see acute diverticulitis. I do not visualize the appendix. There is no findings of acute appendicitis. Uterus and adnexa are grossly normal. There is no retroperitoneal mesenteric or pelvic lymphadenopathy. Atherosclerotic disease of the aorta is present. Multiple injection granulomas subcutaneous calcifications overlying the gluteal muscles. L5-S1 degenerative disc disease noted. Procedure Note Kal Clark MD - 08/05/2025 EXAMINATION: CT ABDOMEN PELVIS W CONTRAST TECHNIQUE: Computed tomographic examination of the abdomen and pelvis was performed with intravenous contrast. HISTORY: Nonlocalized abdominal pain COMPARISON:07/31/2025 FINDINGS: Visualized lung bases are normal. Liver spleen pancreas adrenal glands kidneys are normal. There is diffuse diverticulosis. I do not see acute diverticulitis. I do not visualize the appendix. There is no findings of acute appendicitis. Uterus and adnexa are grossly normal. There is no retroperitoneal mesenteric or pelvic lymphadenopathy. Atherosclerotic disease of the aorta is present. Multiple injection granulomas subcutaneous calcifications overlying the gluteal muscles. L5-S1 degenerative disc disease noted. IMPRESSION: 1. No acute intra-abdominal pathology. Electronically signed by: Kal Clark M.D., MPH Emely Keys NP IMG CT PROCEDURES Final Resul t * eGFR (08/05/2025 6:06 PM SUPERVISOR ENGINE REPAIR) eGFR >90 >=60 mL/min/1. 73 m2 Comment: [...] interpretive data was last reviewed 2021. Blood 08/05/2025 6:06 PM SUPERVISOR ENGINE REPAIR 08/05/2025 6:14 PM SUPERVISOR ENGINE REPAIR us Emely Keys NP LAB BLOOD ORDERABLES Final Re sult [facility] 1 [facility] Department [place] [address] * Differential, auto (08/05/2025 6:06 PM SUPERVISOR ENGINE REPAIR) Neutrophil abs 5.21 1.50 - 6.50 K/cumm Imm gran abs 0.03 0.00 - 0.10 K/cumm [facility] ([place]) Lymphocyte abs 1.96 0.80 - 3.30 K/cumm [facility]) Monocyte abs 0.79 0.20 - 0.80 K/cumm [facility] Eosinophil abs 0.27 0.00 - 0.50 K/cumm [facility]) Basophil abs 0.07 0.00 - 0.10 K/cumm [facility]) Neutrophil pct 62.6 % [facility] Comment: Interpretive Data Percent cell count reference ranges are not reported, since discordance with absolute values may lead to misinterpretation of CBC data. Current Interpretive Data was last revised on 2017. Imm gran pct 0.4 % [facility] ([place]) Comment: Interpretive Data Percent cell count reference ranges are not reported, since discordance with absolute values may lead to misinterpretation of CBC data. Current Interpretive Data was last revised on 2017. Lymphocyte pct 23.5 % [facility] ([place] Comment: Interpretive Data Percent cell count reference ranges are not reported, since discordance with absolute values may lead to misinterpretation of CBC data. Current Interpretive Data was last revised on 2017. Monocyte pct 9.5 % [facility] ([place] Comment: Interpretive Data Percent cell count reference ranges are not reported, since discordance with absolute values may lead to misinterpretation of CBC data. Current Interpretive Data was last revised on 2017. Eosinophil pct 3.2 % [facility] Comment: Interpretive Data Percent cell count reference ranges are not reported, since discordance with absolute values may lead to misinterpretation of CBC data. Current Interpretive Data was last revised on 2017. Basophil pct 0.8 % [facility] Comment: Interpretive Data Percent cell count reference ranges are not reported, since discordance with absolute values may lead to misinterpretation of CBC data. Current Interpretive Data was last revised on 2017. Blood 08/05/2025 6:06 PM SUPERVISOR ENGINE REPAIR 08/05/2025 6:14 PM SUPERVISOR ENGINE REPAIR us Emely Keys NP LAB BLOOD ORDERABLES Final Re sult [facility] ([place]) 1 [facility] Department [place] [address] * (ABNORMAL) CBC with auto differential (08/05/2025 6:06 PM SUPERVISOR ENGINE REPAIR) WBC 8.33 3.80 - 9.90 K/cumm Hgb 11.0(L) 11.9 - 15.5 g/dL [facility] Hct 34.5(L) 35.6 - 45.5 % [facility] Plt 264 150 - 400 K/cumm [facility] MPV 9.3 9.1 - 12.3 fL [facility] RBC 4.13 3.90 - 5.20 M/cumm [facility] MCV 83.5 81.3 - 96.4 fL [facility] MCH 26.6(L) 27.1 - 33.3 pg [facility] MCHC 31.9(L) 32.3 - 35.7 g/dL [facility] RDW CV 13.0 11.1 - 14.9 % [facility] RDW SD 39.2 35.7 - 48.1 fL [facility] NRBC abs 0.00 0.00 - 0.01 K/cumm [facility]) Blood 08/05/2025 6:06 PM SUPERVISOR ENGINE REPAIR 08/05/2025 6:14 PM SUPERVISOR ENGINE REPAIR us Emely Keys RETURNED ITEM CLERK LAB BLOOD ORDERABLES Final Re sult [facility] ([place]) [address] [place] [address] * Lipase (08/05/2025 6:06 PM SUPERVISOR ENGINE REPAIR) Lipase 24 10 - 99 Units/L Blood 08/05/2025 6:06 PM SUPERVISOR ENGINE REPAIR 08/05/2025 6:14 PM SUPERVISOR ENGINE REPAIR us Emely Keys RETURNED ITEM CLERK LAB BLOOD ORDERABLES Final Re sult Performing Organization Address [facility] Co de Phone Number [facility] 1 [facility] [place] [address] * (ABNORMAL) Comprehensive metabolic panel (08/05/2025 6:06 PM SUPERVISOR ENGINE REPAIR) Sodium 137 135 - 145 mmol/L Potassium, pl 4.4 3.3 - 4.9 mmol/L [facility]) Chloride 104 97 - 110 mmol/L [facility]) CO2 24 22 - 32 mmol/L [facility] Anion gap 9 2 - 15 mmol/L [facility] BUN 14 6 - 25 mg/dL [facility] Creatinine 0.74 0.60 - 1.10 mg/dL [facility] Glucose 116 70 - 199 mg/dL [facility] Comment: Interpretive Data Fasting [...] 1.2 mg/dL [facility] Protein, pl 7.3 6.5 - 8.5 g/dL [facility] Albumin 4.2 3.5 - 5.0 g/dL [facility] Alk phos 134(H) 40 - 130 Units/L [facility] ALT 16 7 - 45 Units/L [facility] AST 32 10 - 45 Units/L [facility] Blood 08/05/2025 6:06 PM SUPERVISOR ENGINE REPAIR 08/05/2025 6:14 PM SUPERVISOR ENGINE REPAIR us Emely Keys RETURNED ITEM CLERK LAB BLOOD ORDERABLES Final Re sult [facility] 1 [facility] [place] [address] * POCT glucose (07/31/2025 8:42 PM SUPERVISOR ENGINE REPAIR) Glucose, POC 96 70 - 199 mg/dL Blood 07/31/2025 8:42 PM SUPERVISOR ENGINE REPAIR 07/31/2025 8:42 PM SUPERVISOR ENGINE REPAIR us Notinfile Unknown LAB POCT ORDERABLES - DEVICE F inal Result Performing Organization Address City/[facility]/ZIP Co de Phone Number [facility] ([place]) 1 [facility] [place] [address] * Sepsis Lactate w/ Reflex (07/31/2025 8:40 PM SUPERVISOR ENGINE REPAIR) Sepsis Lactate 0.7 0.7 - 2.0 mmol/L Blood 07/31/2025 8:40 PM SUPERVISOR ENGINE REPAIR 07/31/2025 8:44 PM SUPERVISOR ENGINE REPAIR us Kathi LI LAB BLOOD ORDERABLES Final Resu lt [facility] [place]) 1 [facility] Department [place] [address] * CT Abdomen Pelvis W Contrast (07/31/2025 7:11 PM SUPERVISOR ENGINE REPAIR) Anatomical Region Laterality Modality Body N/A Computed Tomogra phy 07/31/2025 7:28 PM SUPERVISOR ENGINE REPAIR Impressions 07/31/2025 7:28 PM SUPERVISOR ENGINE REPAIR 1. No acute inflammatory change of the abdomen or pelvis. No bowel obstruction or inflammatory change of bowel. 2. Again seen is what is felt to be a seroma in the gallbladder fossa, unchanged. 3. Diverticuli are again seen with no acute diverticulitis. 4. Small helical hernia defect with no herniation of bowel or inflammatory change. 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 Electronically signed by: Ghulam Ahmadi M.D. Narrative 07/31/2025 7:28 PM SUPERVISOR ENGINE REPAIR EXAMINATION: CT ABDOMEN PELVIS W CONTRAST HISTORY: Abdominal pain, acute, nonlocalized. History of appendectomy and cholecystectomy. TECHNIQUE: CT abdomen and pelvis with contrast . Reconstructed coronal and sagittal MPR images reviewed. All images stored on PACS. Automated exposure control was used as a dose optimization technique for this examination. COMPARISON: Prior CT 07/07/2025 and 06/25/2025 FINDINGS: LOWER CHEST: Limited view through the lung base demonstrates no infiltrate or effusion. There is cardiomegaly. No pericardial effusion. LIVER: Normal in size. No identified cystic or solid masses. GALLBLADDER: Absent. Again seen is a small fluid collection in the bed measuring 3.2 cm similar to prior. This likely reflects a seroma. No enhancement. BILIARY: No intrahepatic or extrahepatic ductal dilatation SPLEEN: Normal length. No focal lesions. PANCREAS: No identified cystic or solid masses. No significant calcifications. No adjacent inflammation or peripancreatic fluid collections. Pancreatic duct is not dilated. ADRENALS: No discrete nodules. KIDNEYS/URINARY TRACT: Symmetric enhancement of the kidneys. No nephrolithiasis or hydronephrosis. Tiny small low-density lesion right kidney too small to further characterize. These are most typically cysts. No additional workup recommended. Bladder is unremarkable. GI: Occasional diverticuli are seen of the sigmoid colon and more rare proximally. No acute diverticulitis. No acute inflammatory change of bowel. No obstruction. The stomach and loops of small bowel demonstrate no acute inflammatory change. PERITONEUM: Small 5 mm umbilical hernia defect. No herniation of bowel or inflammatory change. Just posterior to this is what is felt to be an old infarct. Small rounded fat-containing lesion with some minimal peripheral calcification. No change. RETROPERITONEUM:No mass or adenopathy REPRODUCTIVE:No significant abnormality. No suspicious adnexal mass. VASCULATURE: There is atherosclerotic change. No aneurysmal dilatation. Portal vein is patent. MUSCULOSKELETAL: No acute findings. OTHER: No other acute findings. Procedure Note Ghulam Ahmadi MD - 07/31/2025 EXAMINATION: CT ABDOMEN PELVIS W CONTRAST HISTORY: Abdominal pain, acute, nonlocalized. History of appendectomy and cholecystectomy. TECHNIQUE: CT abdomen and pelvis with contrast . Reconstructed coronal and sagittal MPR images reviewed. All images stored on PACS. Automated exposure control was used as a dose optimization technique for this examination. COMPARISON: Prior CT 07/07/2025 and 06/25/2025 FINDINGS: LOWER CHEST: Limited view through the lung base demonstrates no infiltrate or effusion. There is cardiomegaly. No pericardial effusion. LIVER: Normal in size. No identified cystic or solid masses. GALLBLADDER: Absent. Again seen is a small fluid collection in the bed measuring 3.2 cm similar to prior. This likely reflects a seroma. No enhancement. BILIARY: No intrahepatic or extrahepatic ductal dilatation SPLEEN: Normal length. No focal lesions. PANCREAS: No identified cystic or solid masses. No significant calcifications. No adjacent inflammation or peripancreatic fluid collections. Pancreatic duct is not dilated. ADRENALS: No discrete nodules. KIDNEYS/URINARY TRACT: Symmetric enhancement of the kidneys. No nephrolithiasis or hydronephrosis. Tiny small low-density lesion right kidney too small to further characterize. These are most typically cysts. No additional workup recommended. Bladder is unremarkable. GI: Occasional diverticuli are seen of the sigmoid colon and more rare proximally. No acute diverticulitis. No acute inflammatory change of bowel. No obstruction. The stomach and loops of small bowel demonstrate no acute inflammatory change. PERITONEUM: Small 5 mm umbilical hernia defect. No herniation of bowel or inflammatory change. Just posterior to this is what is felt to be an old infarct. Small rounded fat-containing lesion with some minimal peripheral calcification. No change. RETROPERITONEUM:No mass or adenopathy REPRODUCTIVE:No significant abnormality. No suspicious adnexal mass. VASCULATURE: There is atherosclerotic change. No aneurysmal dilatation. Portal vein is patent. MUSCULOSKELETAL: No acute findings. OTHER: No other acute findings. IMPRESSION: 1. No acute inflammatory change of the abdomen or pelvis. No bowel obstruction or inflammatory change of bowel. 2. Again seen is what is felt to be a seroma in the gallbladder fossa, unchanged. 3. Diverticuli are again seen with no acute diverticulitis. 4. Small helical hernia defect with no herniation of bowel or inflammatory change. 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 Electronically signed by: Ghulam Ahmadi M.D. Rox Amos MD IMG CT PROCEDURES F inal Result * (ABNORMAL) Urinalysis reflex to microscopic and culture Urine (07/31/2025 7:04 PM SUPERVISOR ENGINE REPAIR) Color, ur Yellow Yellow Clarity, ur Clear Clear [facility]) Specific gravity, ur 1.008 1.003 - 1.030 [facility] ([place]) pH, urine 6.5 [facility] Comment: Interpretive Data U rine pH is affected by diet, medications, systemic acid-base disturbances, and renal tubular function. pH may affect urinary stone formation. For example, urine pH below 6.0 may help reduce the tendency for calcium phosphate stones and pH greater than 6.0 may reduce the tendency for uric acid stone formation. Source: [facility] Supersolid Current Interpretive Data was last revised on [...] [facility]) Leukocyte esterase, ur 2+(A) Negative [facility] ([place]) UA reflex comment Reflex to microscopic UA will be performed. [facility] ([place]) Urine 07/31/2025 7:04 PM SUPERVISOR ENGINE REPAIR 07/31/2025 7:17 PM SUPERVISOR ENGINE REPAIR us Rox Amos MD LAB MICROBIOLOGY - GENERAL ORDERABLES Final Result Performing Organization Address City/[facility] Co de Phone Number [facility] ([place]) 1 [facility] [place] [address] * (ABNORMAL) Urinalysis, microscopic only (07/31/2025 7:04 PM SUPERVISOR ENGINE REPAIR) WBC, ur 0-5 0 - 5 /HPF RBC, ur 0-2 0 - 2 /HPF [facility] ([place]) Epithelial cells, squamous, ur 6-10(A) 0 - 5 /HPF [facility] ([place]) Bacteria, ur 1+(A) [facility] ([place]) Mucous, ur Present(A) [facility] ([place]) Culture Reflex Comment Reflex conditions for urine culture (WBC >10) not met. [facility] Urine 07/31/2025 7:04 PM SUPERVISOR ENGINE REPAIR 07/31/2025 7:17 PM SUPERVISOR ENGINE REPAIR us Rox Amos MD LAB URINE ORDERABLE S Final Result Performing Organization Address City/[facility] Co de Phone Number [facility] ([place]) 1 [facility] [place] [address] * eGFR (07/31/2025 5:15 PM SUPERVISOR ENGINE REPAIR) eGFR >90 >=60 mL/min/1. 73 m2 Comment: [...] interpretive data was last reviewed 2021. Blood 07/31/2025 5:15 PM SUPERVISOR ENGINE REPAIR 07/31/2025 5:20 PM SUPERVISOR ENGINE REPAIR us Rox Amos MD LAB BLOOD ORDERABLE S Final Result [facility] ([place]) 1 [facility] Department [place] [address] * Differential, auto (07/31/2025 5:15 PM SUPERVISOR ENGINE REPAIR) Neutrophil abs 3.58 1.50 - 6.50 K/cumm Imm gran abs 0.02 0.00 - 0.10 K/cumm [facility] ([place]) Lymphocyte abs 1.99 0.80 - 3.30 K/cumm [facility] ([place]) Monocyte abs 0.70 0.20 - 0.80 K/cumm [facility] ([place]) Eosinophil abs 0.24 0.00 - 0.50 K/cumm [facility] ([place]) Basophil abs 0.06 0.00 - 0.10 K/cumm [facility] ([place]) Neutrophil pct 54.4 % [facility] ([place]) Comment: Interpretive [...] was last revised on 2017. Lymphocyte pct 30.2 % [facility] ([place]) Comment: Interpretive Data Percent cell count reference ranges are not reported, since discordance with absolute values may lead to misinterpretation of CBC data. Current Interpretive Data was last revised on 2017. Monocyte pct 10.6 % [facility] ([place]) Comment: Interpretive Data Percent cell count reference ranges are not reported, since discordance with absolute values may lead to misinterpretation of CBC data. Current Interpretive Data was last revised on 2017. Eosinophil pct 3.6 % [facility] ([place]) Comment: Interpretive [...] Data was last revised on 2017. Blood 07/31/2025 5:15 PM SUPERVISOR ENGINE REPAIR 07/31/2025 5:20 PM SUPERVISOR ENGINE REPAIR us Rox Amos MD LAB BLOOD ORDERABLE S Final Result [facility] ([place]) 1 [facility] Department [place] [address] * (ABNORMAL) CBC with auto differential (07/31/2025 5:15 PM SUPERVISOR ENGINE REPAIR) WBC 6.59 3.80 - 9.90 K/cumm Hgb 10.9(L) 11.9 - 15.5 g/dL [facility] ([place]) Hct 34.1(L) 35.6 - 45.5 % [facility] ([place]) Plt 256 150 - 400 K/cumm [facility] ([place]) MPV 9.5 9.1 - 12.3 fL [facility] ([place]) RBC 4.10 3.90 - 5.20 M/cumm [facility] ([place]) MCV 83.2 81.3 - 96.4 fL [facility] ([place]) MCH 26.6(L) 27.1 - 33.3 pg [facility] ([place]) MCHC 32.0(L) 32.3 - 35.7 g/dL [facility] ([place]) RDW CV 13.1 11.1 - 14.9 % [facility] ([place]) RDW SD 39.4 35.7 - 48.1 fL [facility] ([place]) NRBC abs 0.00 0.00 - 0.01 K/cumm [facility] ([place]) Blood 07/31/2025 5:15 PM SUPERVISOR ENGINE REPAIR 07/31/2025 5:20 PM SUPERVISOR ENGINE REPAIR Rox Amos MD LAB BLOOD ORDERABLE S Final Result [facility] 1 [facility] [place] [address] * Lipase (07/31/2025 5:15 PM SUPERVISOR ENGINE REPAIR) Pathologist [facility] Lipase 18 10 - 99 Units/L Blood 07/31/2025 5:15 PM SUPERVISOR ENGINE REPAIR 07/31/2025 5:20 PM SUPERVISOR ENGINE REPAIR Rox Amos MD LAB BLOOD ORDERABLE S Final Result Performing Organization Address City/[facility]/ZIP Co de Phone Number [facility] 1 [facility] [place] [address] * (ABNORMAL) Comprehensive metabolic panel (07/31/2025 5:15 PM SUPERVISOR ENGINE REPAIR) Sodium 138 135 - 145 mmol/L Potassium, pl 4.1 3.3 - 4.9 mmol/L [facility] Chloride 105 97 - 110 mmol/L [facility]) CO2 24 22 - 32 mmol/L [facility] Anion gap 9 2 - 15 mmol/L [facility] BUN 10 6 - 25 mg/dL [facility] Creatinine 0.76 0.60 - 1.10 mg/dL [facility] Glucose 109 70 - 199 mg/dL [facility] ([place]) [...] 4.0 3.5 - 5.0 g/dL [facility] ([place]) Alk phos 137(H) 40 - 130 Units/L [facility] ([place]) ALT 23 7 - 45 Units/L [facility] ([place]) AST 38 10 - 45 Units/L [facility] ([place]) Blood 07/31/2025 5:15 PM SUPERVISOR ENGINE REPAIR 07/31/2025 5:20 PM SUPERVISOR ENGINE REPAIR us Rox Amos MD LAB BLOOD ORDERABLE S Final Result [facility] ([place]) 1 [facility] Department [place] [address] * XR Elbow Right 2 Views (07/23/2025 5:44 PM SUPERVISOR ENGINE REPAIR) Anatomical Region Laterality Modality Upper Extremities, Elbow Right Compute d Radiography 07/23/2025 5:45 PM SUPERVISOR ENGINE REPAIR Narrative 07/23/2025 5:45 PM SUPERVISOR ENGINE REPAIR Infiltrate Electronically signed by: Ghulam Ahmadi M.D. Procedure Note Ghluam Ahmadi MD - 07/23/2025 Infiltrate Electronically signed by: Ghulam Ahmadi M.D. us Yolande LI IMG XR PROCEDURES Final R esult * (ABNORMAL) Urinalysis reflex to microscopic and culture Urine (07/23/2025 5:19 PM SUPERVISOR ENGINE REPAIR) Color, ur Straw Yellow Clarity, ur Clear Clear [facility] ([place]) Specific gravity, ur 1.005 1.003 - 1.030 [facility] ([place]) pH, urine 6.5 [facility] ([place]) Comment: Interpretive Data U rine pH is affected by diet, medications, systemic acid-base disturbances, and renal tubular function. pH may affect urinary stone formation. For example, urine pH below 6.0 may help reduce the tendency for calcium phosphate stones and pH greater than 6.0 may reduce the tendency for uric acid stone formation. Source: [facility] Current Interpretive Data was last revised on [...] [facility] ([place]) Leukocyte esterase, ur 2+(A) Negative [facility] ([place]) UA reflex comment Reflex to microscopic UA will be performed. [facility] ([place]) Urine 07/23/2025 5:19 PM SUPERVISOR ENGINE REPAIR 07/23/2025 5:22 PM SUPERVISOR ENGINE REPAIR us Rox Amos MD LAB MICROBIOLOGY - GENERAL ORDERABLES Final Result [facility] ([place]) 1 [facility] Department [place] [address] * (ABNORMAL) Urinalysis, microscopic only (07/23/2025 5:19 PM SUPERVISOR ENGINE REPAIR) WBC, ur 0-5 0 - 5 /HPF RBC, ur 0-2 0 - 2 /HPF [facility] ([place]) Epithelial cells, squamous, ur 1-5 0 - 5 /HPF [facility] ([place]) Bacteria, ur 1+(A) [facility] ([place]) Culture Reflex Comment Reflex conditions for urine culture (WBC >10) not met. [facility] ([place]) Urine 07/23/2025 5:19 PM SUPERVISOR ENGINE REPAIR 07/23/2025 5:22 PM SUPERVISOR ENGINE REPAIR us Rox Amos MD LAB URINE ORDERABLE S Final Result [facility] ([place]) 1 [facility] Department [place] [address] * POCT glucose (07/23/2025 5:18 PM SUPERVISOR ENGINE REPAIR) Pathologist [facility] Glucose, POC 101 70 - 199 mg/dL Blood 07/23/2025 5:18 PM SUPERVISOR ENGINE REPAIR 07/23/2025 5:18 PM SUPERVISOR ENGINE REPAIR us Notinfile Unknown LAB POCT ORDERABLES - DEVICE F inal Result Performing Organization Address City/[facility]/ZIP Co de Phone Number [facility] ([place]) 1 [facility] [place] [address] * eGFR (07/23/2025 3:51 PM SUPERVISOR ENGINE REPAIR) Pathologist [facility] eGFR >90 >=60 mL/min/1. 73 m2 Comment: [...] interpretive data was last reviewed 2021. Blood 07/23/2025 3:51 PM SUPERVISOR ENGINE REPAIR 07/23/2025 3:54 PM SUPERVISOR ENGINE REPAIR us Rox Amos MD LAB BLOOD ORDERABLE S Final Result [facility] ([place]) 1 [facility] Department [place] [address] * Differential, auto (07/23/2025 3:51 PM SUPERVISOR ENGINE REPAIR) Neutrophil abs 4.22 1.50 - 6.50 K/cumm Imm gran abs 0.02 0.00 - 0.10 K/cumm [facility] ([place]) Lymphocyte abs 1.84 0.80 - 3.30 K/cumm [facility] ([place]) Monocyte abs 0.52 0.20 - 0.80 K/cumm [facility] ([place]) Eosinophil abs 0.29 0.00 - 0.50 K/cumm [facility] ([place]) Basophil abs 0.04 0.00 - 0.10 K/cumm [facility] ([place]) Neutrophil pct 60.8 % [facility] ([place]) Comment: Interpretive [...] was last revised on 2017. Lymphocyte pct 26.6 % [facility] ([place]) Comment: Interpretive Data Percent cell count reference ranges are not reported, since discordance with absolute values may lead to misinterpretation of CBC data. Current Interpretive Data was last revised on 2017. Monocyte pct 7.5 % [facility] ([place]) Comment: Interpretive Data [...] was last revised on 2017. Basophil pct 0.6 % [facility] ([place]) Comment: Interpretive Data Percent cell count reference ranges are not reported, since discordance with absolute values may lead to misinterpretation of CBC data. Current Interpretive Data was last revised on 2017. Blood 07/23/2025 3:51 PM SUPERVISOR ENGINE REPAIR 07/23/2025 3:54 PM SUPERVISOR ENGINE REPAIR Rox Amos MD LAB BLOOD ORDERABLE S Final Result [facility] ([place]) 1 [facility] Department [place] [address] * (ABNORMAL) CBC with auto differential (07/23/2025 3:51 PM SUPERVISOR ENGINE REPAIR) WBC 6.93 3.80 - 9.90 K/cumm Hgb 10.9(L) 11.9 - 15.5 g/dL [facility] ([place]) Hct 34.0(L) 35.6 - 45.5 % [facility] ([place]) Plt 243 150 - 400 K/cumm [facility] ([place]) MPV 9.5 9.1 - 12.3 fL [facility] ([place]) RBC 4.10 3.90 - 5.20 M/cumm [facility] ([place]) MCV 82.9 81.3 - 96.4 fL [facility] ([place]) MCH 26.6(L) 27.1 - 33.3 pg [facility] ([place]) MCHC 32.1(L) 32.3 - 35.7 g/dL [facility] ([place]) RDW CV 12.8 11.1 - 14.9 % [facility] RDW SD 38.6 35.7 - 48.1 fL [facility] ([place]) NRBC abs 0.00 0.00 - 0.01 K/cumm [facility] ([place]) Blood Venous blood specimen / Unknown 07/23/2025 3:51 PM SUPERVISOR ENGINE REPAIR 07/23/2025 3:54 PM SUPERVISOR ENGINE REPAIR Rox Amos MD LAB BLOOD ORDERABLE S Final Result [facility] ([place]) 1 [facility] [place] [address] * Lipase (07/23/2025 3:51 PM SUPERVISOR ENGINE REPAIR) Pathologist [facility] Lipase 31 10 - 99 Units/L Blood Venous blood specimen / Unknown 07/23/2025 3:51 PM SUPERVISOR ENGINE REPAIR 07/23/2025 3:54 PM SUPERVISOR ENGINE REPAIR Rox Amos MD LAB BLOOD ORDERABLE S Final Result Performing Organization Address City/[facility]/ZIP Co de Phone Number [facility] ([place]) 1 [facility] [place] [address] * (ABNORMAL) Comprehensive metabolic panel (07/23/2025 3:51 PM SUPERVISOR ENGINE REPAIR) Sodium 134(L) 135 - 145 mmol/L Potassium, pl 4.5 3.3 - 4.9 mmol/L [facility] ([place]) Chloride 103 97 - 110 mmol/L [facility] ([place]) CO2 25 22 - 32 mmol/L [facility] ([place] Anion gap 6 2 - 15 mmol/L [facility] ([place]) BUN 13 6 - 25 mg/dL [facility] ([place]) Creatinine 0.76 0.60 - 1.10 mg/dL [facility] ([place]) Glucose 107 70 - 199 mg/dL [facility] ([place]) Comment: Interpretive Data Fasting glucose >/= [...] interpretive data was last revised 2022. Calcium 9.6 8.5 - 10.3 mg/dL [facility] ([place]) Bilirubin, total 0.6 0.1 - 1.2 mg/dL [facility] ([place]) Protein, pl 7.0 6.5 - 8.5 g/dL [facility] ([place]) Albumin 4.0 3.5 - 5.0 g/dL [facility] ([place]) Alk phos 137(H) 40 - 130 Units/L [facility] ([place]) ALT 24 7 - 45 Units/L [facility] ([place]) AST 39 10 - 45 Units/L [facility] ([place]) Blood 07/23/2025 3:51 PM SUPERVISOR ENGINE REPAIR 07/23/2025 3:54 PM SUPERVISOR ENGINE REPAIR us Rox Amos MD LAB BLOOD ORDERABLE S Final Result [facility] ([place]) 1 [facility] Department of Laboratories [place], [place] [id number] * Troponin T high-sensitivity 2-hour (07/13/2025 8:01 AM CDT) Trop T hs 7 <=14 ng/L Comment: Interpretive Data For further hscTnT resources including the diagnostic algorithm and an aid in interpretation, copy and paste this link: https://nrl.testcatalog.org/show/hsTrop Current Interpretive Data last revised 2020. Trop T hs delta -1 ng/L [facility] ([place]) Trop T hs interp Insignificant [facility] ([place]) Blood 07/13/2025 8:01 AM CDT 07/13/2025 8:05 AM CDT us Yves Andre MD LAB BLOOD ORDERABLE S Final Result [facility] [place] 1 [facility] Department [place] [address] * XR Chest 1 View (07/13/2025 6:42 [...] identified. Electronically signed by: Yves Rodriguez M.D. us Yves Andre MD IMG XR PROCEDURES F inal Result * ECG 12 lead (07/13/2025 6:26 AM CDT) 07/13/2025 6:26 AM CDT Narrative [facility] - 07/13/2025 8:13 AM CDT Vent Rate: 70 bpm RR Interval: 851 msec TN Interval: 165 msec QRS Duration: 94 msec QT Interval: 377 msec QTC Interval: 398 msec P-R-T [place]: 80 - -8 - 70 degrees IMPRESSION: SINUS RHYTHM NORMAL ECG Electronically Signed By: Wm De La Garza MD us Yves Andre MD ECG ORDERABLES Fin al Result [facility] * Troponin T high-sensitivity series (baseline, 2hr, [...] ORDERABLE S Final Result Performing Organization Address City/[facility]/ZIP Co de Phone Number [facility] [address] Department [place] [address] * eGFR (07/13/2025 6:24 AM CDT) eGFR [...] BLOOD ORDERABLE S Final Result [facility] ([place]) 1 [facility] Department [place] [address] * Differential, auto (07/13/2025 6:24 AM CDT) Neutrophil abs 3.80 1.50 - 6.50 K/cumm Imm gran abs 0.02 0.00 - 0.10 K/cumm [facility] ([place]) Lymphocyte abs 1.84 0.80 - 3.30 K/cumm [facility] ([place]) Monocyte abs 0.59 0.20 - 0.80 K/cumm [facility] ([place]) Eosinophil abs 0.28 0.00 - 0.50 K/cumm [facility] ([place]) Basophil abs 0.06 0.00 - 0.10 K/cumm [facility] ([place]) Neutrophil pct 57.7 % [facility] ([place]) Comment: Interpretive Data Percent cell count reference [...] Lymphocyte pct 27.9 % [facility] ([place]) Comment: Interpretive [...] S Final Result [facility] ([place]) 1 [facility] Department [place] [address] * (ABNORMAL) CBC with auto differential (07/13/2025 [...] S Final Result [facility] ([place]) 1 [facility] Department [place] [address] * (ABNORMAL) Comprehensive metabolic panel (07/13/2025 6:24 AM CDT) Sodium 140 135 - 145 mmol/L Potassium, [...] BLOOD ORDERABLE S Final Result [facility] ([place]) 1 [facility] Department [place] [address] * CT Abdomen Pelvis W Contrast (07/07/2025 [...] Result * eGFR (07/07/2025 12:53 PM CDT) eGFR >90 >=60 mL/min/1. 73 [...] of Race in Diagnosing Kidney Disease, JASN 202). The CKD-EPI equation should not be used for patients with unstable renal function and has not been validated in children and those over 70. Current interpretive data was last reviewed 2021. Blood 07/07/2025 12:5 3 PM CDT 07/07/2025 12:56 PM CDT Elaine LI LAB BLOOD ORDERABLES Final Resu lt [facility] ([place]) 1 [facility] Department [place] [address] * Differential, auto (07/07/2025 12:53 PM CDT) Neutrophil abs 3.85 1.50 - 6.50 K/cumm [...] revised on 2017. Monocyte pct 7.3 % [facility] ([place]) Comment: Interpretive Data [...] LAB BLOOD ORDERABLES Final Resu lt [facility] ([place]) 1 [facility] Department [place] [address] * Urinalysis reflex to microscopic and culture Urine (07/07/2025 12:53 PM CDT) Color, ur Straw Yellow Clarity, ur Clear Clear [facility] ([place]) Specific gravity, ur 1.006 1.003 - [...] tendency for uric acid stone formation. Source: [facility] Current Interpretive Data was last revised on [...] [facility] ([place]) Leukocyte esterase, ur Negative Negative [facility] ([place]) UA reflex comment Reflex conditions for microscopic UA and culture not met. [facility] ([place]) Urine 07/07/2025 12:5 3 PM CDT 07/07/2025 12:56 PM CDT Elaine LI LAB MICROBIOLOGY - GENERAL ORDE RABLES Final Result [facility] ([place]) 1 [facility] [place] [address] * (ABNORMAL) CBC with auto differential (07/07/2025 12:53 PM CDT) WBC 6.14 3.80 - 9.90 K/cumm Hgb 10.6(L) 11.9 - 15.5 g/dL [facility] ([place]) Hct 33.5(L) 35.6 - 45.5 % [facility] ([place]) Plt 227 150 - 400 K/cumm [facility] ([place]) MPV 9.5 9.1 - 12.3 fL [facility] ([place]) RBC 3.95 3.90 - 5.20 M/cumm [facility] ([place]) MCV 84.8 81.3 - 96.4 fL [facility] ([place]) MCH 26.8(L) 27.1 - 33.3 pg [facility] ([place]) MCHC 31.6(L) 32.3 - 35.7 g/dL [facility] ([place]) RDW CV 12.7 11.1 - 14.9 % [facility] ([place]) RDW SD 39.0 35.7 - 48.1 fL [facility] ([place]) NRBC abs 0.00 0.00 - 0.01 K/cumm [facility] ([place]) Blood 07/07/2025 12:5 3 PM CDT 07/07/2025 12:56 PM CDT Elaine LI LAB BLOOD ORDERABLES Final Resu lt [facility] ([place]) 1 [facility] [place] [address] * Magnesium (07/07/2025 12:53 PM CDT) Magnesium 1.8 1.4 - 2.5 mg/dL Blood 07/07/2025 12:5 3 PM CDT 07/07/2025 12:56 PM CDT Elaine Ha DE LAB BLOOD ORDERABLES Final Resu lt [facility]) 1 [place] [address] * Lipase (07/07/2025 12:53 PM CDT) Pathologist [facility] Lipase 22 10 - 99 Units/L Blood 07/07/2025 12:5 3 PM CDT 07/07/2025 12:56 PM CDT [facility] Final Resu lt Performing Organization Address [facility] Co de Phone Number [facility] ([place]) 1 [facility] [place] [address] * (ABNORMAL) Comprehensive metabolic panel (07/07/2025 12:53 PM CDT) Pathologist [facility] Sodium 138 135 - 145 mmol/L Potassium, pl 4.2 3.3 - 4.9 mmol/L [facility] ([place]) Chloride 104 97 - 110 mmol/L [facility] ([place]) CO2 23 22 - 32 mmol/L [facility] ([place]) Anion gap 11 2 - 15 mmol/L [facility] ([place]) BUN 10 6 - 25 mg/dL [facility] ([place]) Creatinine 0.74 0.60 - 1.10 mg/dL [facility] ([place]) Glucose 192 70 - 199 mg/dL [facility] ([place]) Comment: Interpretive Data Fasting glucose >/= [...] classification and Diagnosis of Diabetes Diabetes Care 202; 46: S19-S40. Current interpretive data was last [...] LI LAB BLOOD ORDERABLES Final Resu lt [facility] ([place]) 1 [facility] Department [place] [address] * (ABNORMAL) Urinalysis reflex to microscopic and [...] tendency for uric acid stone formation. Source: [facility] Current Interpretive Data was last revised on [...] 06/25/2025 10:52 PM CDT Papito LI LAB MICROBIOLOGY - GENERAL ORDERABLES Final Result Performing Organization Address [facility] Co de Phone Number [facility] ([place]) 1 [facility] [employer] [place] [address] * (ABNORMAL) Urinalysis, microscopic only (06/25/2025 10:46 PM CDT) WBC, ur >50(A) 0 - 5 /HPF RBC, ur 6-10(A) 0 - 2 /HPF [facility] ([place]) Epithelial cells, squamous, ur 21-50(A) 0 - 5 /HPF [facility] ([place]) Bacteria, ur 3+(A) [facility] ([place]) Yeast, ur Trace(A) [facility] ([place]) Mucous, ur Present(A) [facility] ([place]) Culture Reflex Comment Reflex to urine culture will be performed. [facility] ([place]) Urine 06/25/2025 10:4 6 PM CDT 06/25/2025 10:52 PM CDT Papito LI LAB URINE ORDERA BLES Final Result Performing Organization Address [facility] Co de Phone Number [facility] ([place]) 1 [facility] [employer] [address] * Urine culture Urine (06/25/2025 10:46 PM CDT) Report Final Report: Less than 100,000 colonies/mL (clinically insignificant growth based on current clinical standards) Comment:Testing performed by : [facility], [address] [facility], [place]., [address] Organism (CLINICALLY INSIGNIFICANT GROWTH [facility] ([place]) Urine 06/25/2025 10:4 6 PM CDT 06/26/2025 1:36 AM CDT Narrative [facility] ([place]) - 06/27/2025 2:27 AM CDT Urine culture reflexed based upon urinalysis results. 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 Pt. Stated pain mainly at RUQ down to RLQ. Pt. Also reported 7-8 episodes of diarrhea hours [employer]OL AND DIE ENGINEER. TECHNIQUE: CT scan of the abdomen and [...] Yves Rodriguez M.D. AR: SOFY Report ID: [id number] Reading Location: [id number] Procedure Note Yves Rodriguez MD - 06/25/2025 EXAM DESCRIPTION: CT ABDOMEN PELVIS WO CONTRAST REASON FOR STUDY: Abdominal pain CC of abdominal pain associated with nausea and vomiting with diarrhea.Known case of DM type 2 and hypertension. 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 Stated pain mainly at RUQ down to RLQ. Pt. Also reported 7-8 episodes of diarrhea hours [employer]OL AND DIE ENGINEER. TECHNIQUE: CT scan of the abdomen and [...] Yves Rodriguez M.D. AR: SOFY Report ID: [id number] Reading Location: [place] [address] us Rox Amos MD IMG CT PROCEDURES F inal Result * eGFR (06/25/2025 9:07 PM CDT) Pathologist [facility] eGFR >90 >=60 mL/min/1. 73 m2 Comment: [...] LAB BLOOD ORDERA BLES Final Result [facility] ([place]) 1 [facility] Department of Laboratories [place], [place] [id number] * Differential, auto (06/25/2025 9:07 PM CDT) Pathologist [facility] Neutrophil abs 5.17 1.50 - 6.50 K/cumm Imm gran abs 0.02 0.00 - 0.10 K/cumm [facility] ([place]) Lymphocyte abs 1.83 0.80 - 3.30 K/cumm [facility] ([place]) Monocyte abs 0.61 0.20 - 0.80 K/cumm [facility] ([place]) Eosinophil abs 0.34 0.00 - 0.50 K/cumm [...] LAB BLOOD ORDERA BLES Final Result [facility] ([place]) 1 [facility] Department [place] [address] * (ABNORMAL) CBC with auto differential (06/25/2025 [...] RDW CV 13.4 11.1 - 14.9 % [facility] ([place]) RDW SD 41.1 35.7 - 48.1 fL [facility] ([place]) NRBC abs 0.00 0.00 - 0.01 K/cumm [facility] ([place]) Blood 06/25/2025 9:07 PM CDT 06/25/2025 9:09 PM CDT Papito LI LAB BLOOD ORDERA BLES Final Result Performing Organization Address City/[facility]/ZIP Co de Phone Number [facility] ([place]) 1 [facility] [facility] [place] [address] * Lipase (06/25/2025 9:07 PM CDT) Lipase 23 10 - 99 Units/L Blood 06/25/2025 9:07 PM CDT 06/25/2025 9:09 PM CDT [facility] BLOOD ORDERA BLES Final Result FEL[facility] DAVIS ([place]) 1 [facility] [place] [address] * (ABNORMAL) Comprehensive metabolic panel (06/25/2025 9:07 PM CDT) Sodium 135 135 - 145 mmol/L Potassium, pl 4.0 3.3 - 4.9 mmol/L [facility] ([place]) Chloride 100 97 - 110 mmol/L [facility] ([place]) CO2 24 22 - 32 mmol/L [facility] ([place]) Anion gap 11 2 - 15 mmol/L [facility] ([place]) BUN 13 6 - 25 mg/dL [facility] ([place]) Creatinine 0.77 0.60 - 1.10 mg/dL [facility] ([place]) Glucose 226(H) 70 - 199 mg/dL [facility] ([place]) [...] 45 Units/L [facility] ([place]) Blood 06/25/2025 9:0 7 PM CDT 06/25/2025 9:09 PM CDT [facility] BLOOD ORDERA BLES Final Result [facility] ([place]) 1 [facility] Department of Laboratories [place], [place] [id number] * Cardiology Document Scan (05/15/2025 1:54 PM CDT) Anatomical Region Laterality Modality Other us Wm De La Garza MD [facility]ED[facility] RES Final Result * Cardiology Document Scan (05/14/2025 1:52 PM CDT) Anatomical Region Laterality Modality Other us Wm De La Garza MD [facility] PROCEDU RES Final Result from Last 3 Months Insurance MEDICARE IDPA * Guarantor: Leti White Account Type Relation to Patient Date of Phone Billing Address Personal/Family Self 1970 [address] [place] [address] [employer] [facility] MEDIC[facility] ADVANTAGE [employer] [facility] MEDIC[facility] ADVANTAGE Care Teams Can Top Setter Relationship Specialty Start Date End Date Brissa Tijerina MD [address] [place] [address] PCP - General Family Medicine 07/13/25
--- OUTSIDE RECORDS SUMMARY | 2025-08-11 13:53 | XMS_ITS | Continuity of Care Document ---
Author Organization [facility] Address [address] [address] Care Team Providers Care Cook Specialty Name Role Phone DRAKE FARRIS Hydrodynamics Professor PAULY VIZCAINO Primary Care Provider [phone] PAULY VIZCAINO Referring Provider DELIA HALL Director Of Restaurants Assessment Encounter Date Assessment Date Assessment LastModified by Organization Details LastModified Time 06/07/2025 06/07/2025 Ms. White is a pleasant [...] to prevent CKD progression -Advised to undertake moderate-intensity physical activity for a cumulative duration of [...] with it. [email or web address] Not available 06/07/2025 16:13:59 Plan of Treatment Reminders Order Date Submit Date Provider Last Modified By Organization Details Last Modified Time Details Appointments Estab judy Stoner nt 15.ES T 2024 01:30P M Kya Pritchard Not available Not available Not available Estab judy Stoner nt 15.ES T 2025 02:30P M Delia Hall Not available Not available Not available Nurse Surge ry Block 50.COLE RG 2025 10:10A M Dr. Lalit Garber Not available Not available Not available ASC Surge ry.COLE RG 2025 10:10A M Gastroenterol ogy Not available Not available Not available ASC Surge ry.COLE RG 2025 10:10A M Dr. Lalit Garber Not available Not available Not available Pulm Funct ion Metha choli ne.AR O 2025 02:00P M [facility] Not available Not available Not available Estab judy Stoner nt 15.ES T 2025 11:15A M Dr[address] Carrol Villagomez Not available Not available Not available New Herbie nt Visit 10.NE W 2025 11:50A M Dr. Shital Mendes Not available Not available Not available Estab judy Stoner nt 15.ES T 2025 01:30P M Tiffanie Painting Not available Not available Not available Estab judy Stoner nt 15.ES T 2025 03:00P Jessica Pritchard Not available Not available Not available Lab None recor ded. Referral None recor ded. Procedures None recor ded. Surgeries None recor ded. Imaging None recor ded. Medication Orders None recor ded. Patient TargetsNo targets recorded. Patient InstructionsNo instructions recorded. Reason for Referral None Reported. Results Created Date Observation Date Name Description Value Unit Range Abnormal Flag Note LastModifiedBy Organization Detail LastModifiedTime 05/07/2005/07/2025 EGFR eGFR 56 mL/mi n/1.7 3m? This [...] Sc Only - [facility] [address] [place] [address], [id number], 05/07/2025 19:09:14 05/07/2005/07/2025 LPSE lipase,serum 33 u/L 16-77 Not Dalila ilable Sc Only - [facility] [address] [place] [address], [address], 05/07/2025 19:09:12 05/07/20 25 05/07/2025 LDH LD 187 u/L 81-234 Not Available Sc Only - [facility] [address] [place] [address], [address], 05/07/2025 19:09:10 05/07/20 25 05/07/2025 CMP sodium 142 mmol/ L 135-14 8 Not Available Nh Only - [facility] [address], [address], 05/07/2025 19:09:09 05/07/20 25 05/07/2025 CMP potassium 4.2 mmol/ L 3.5-5. 3 Not Available Nh Only - [facility] [address] [place] [address], [address], 05/07/2025 19:09:09 05/07/20 25 05/07/2025 CMP chloride 107 mmol/ L 96-112 Not Available Nh Only - [facility] [address] [place] [address], [address], 05/07/2025 19:09:09 05/07/20 25 05/07/2025 CMP CO2 30 mmol/ L 23-33 Not Available Nh Only - [facility] [address] [place] [address], [address], 05/07/2025 19:09:09 05/07/20 25 05/07/2025 CMP BUN 13 mg/dL 7-18 Not Available Nh Only - [facility] [address] [place] [address], [address], 05/07/2025 19:09:09 05/07/20 25 05/07/2025 CMP creatinine 1.16 mg/dL 0.55-1 .02 high Not Available Nh Only - [facility] [address] [place] [address], [address], 05/07/2025 19:09:09 05/07/20 25 05/07/2025 CMP glucose 101 mg/dL 65-99 high Not Availabl e Nh Only - [facility] [address] [place] [address], [address], 05/07/2025 19:09:09 05/07/20 25 05/07/2025 CMP calcium 9.0 mg/dL 8.5-10 .1 Not Available Nh Only - [facility] [address] [place] [address], [address], 05/07/2025 19:09:09 05/07/20 25 05/07/2025 CMP total protein 7.0 g/dL 6.4-8. 2 Not Available Nh Only - [facility] [address] [place] [address], [address], 05/07/2025 19:09:09 05/07/20 25 05/07/2025 CMP albumin 3.1 g/dL 3.4-5. 0 low Not Available Nh Only - [facility] [address], [address], 05/07/2025 19:09:09 05/07/20 25 05/07/2025 CMP bilirubin (total) 0.6 mg/dL 0.2-1. 0 Not Available Nh Only - [facility] [address] [place] [address], [address], 05/07/2025 19:09:09 05/07/20 25 05/07/2025 CMP AST 35 u/L 15-37 Not Available Nh Only - [facility] [address], [address], 05/07/2025 19:09:09 05/07/20 25 05/07/2025 CMP alk phos 159 u/L 46-116 high Not Availab le Nh Only - [facility] [address], [address], 05/07/2025 19:09:09 05/07/20 25 05/07/2025 CMP ALT 38 u/L 14-59 Not Available Nh Only - [facility] [address] [place] [address], [address], 05/07/2025 19:09:09 05/07/20 25 05/07/2025 CMP anion gap 5 mmol/ L 7-16 low Not Available Nh Only - [facility] [address] [place] [address], [address], 05/07/2025 19:09:09 05/07/20 25 05/07/2025 DBIL bilirubin (direct) 0.11 mg/dL 0.00-0 .20 Not Available Sc Only - [facility] [address] [place] [address], [address], 05/07/2025 19:09:08 05/07/2005/07/2025 CBCW/ DIFF WBC 5.83 x10 3.98-1 0.04 Not Available Nh Only - [facility] [address] [place] [address], [address], 05/07/2025 19:09:04 05/07/20 25 05/07/2025 CBCW/ DIFF RBC 3.77 x10 3.93-5 .22 low Not Available Nh Only - [facility] [address] [place] [address], [address], 05/07/2025 19:09:04 05/07/20 25 05/07/2025 CBCW/ DIFF hemoglobin 10.3 g/dL 11.2-1 5.7 low Not Available Nh Only - [facility] [address] [place] [address], [address], 05/07/2025 19:09:04 05/07/2005/07/2025 CBCW/ DIFF hematocrit 32.2 % 34.1-4 4.9 low Not Available Nh Only - [facility] [address] [place] [address], [address], 05/07/2025 19:09:04 05/07/2005/07/2025 CBCW/ DIFF MCV 85.4 fL 79.4-9 4.8 Not Available Sc Only - [facility] [address] [place] [address], [address], 05/07/2025 19:09:04 05/07/2005/07/2025 CBCW/ DIFF MCH 27.3 pg 25.6-3 2.2 Not Available Sc Only - [facility] [address] [place] [address], [address], 05/07/2025 19:09:04 05/07/2005/07/2025 CBCW/ DIFF MCHC 32.0 g/dL 32.2-3 5.5 low Not Available Sc Only - [facility] [address] [place] [address], [address], 05/07/2025 19:09:04 05/07/20 25 05/07/2025 CBCW/ DIFF rdwcv 13.8 % 11.7-1 4.4 Not Available Sc Only - [facility] [address] [place] [address], [address], 05/07/2025 19:09:04 05/07/20 25 05/07/2025 CBCW/ DIFF rdwsd 43.1 fL 36.4-4 6.3 Not Available Sc Only - [facility] [address] [place] [address], [address], 05/07/2025 19:09:04 05/07/20 25 05/07/2025 CBCW/ DIFF platelets 191 x10 182-36 9 Not Available Sc Only - [facility] [address] [place] [address], [address], 05/07/2025 19:09:04 05/07/20 25 05/07/2025 CBCW/ DIFF MPV 10.0 fL 9.4-12 .3 Not Available Sc Only - [facility] [address] [place] [address], [address], 05/07/2025 19:09:04 05/07/20 25 05/07/2025 AUTOD IFF neutrophils 57.2 % 34.0-7 1.1 Not Available Sc Only - [facility] [address] [place] [address], [address], 05/07/2025 19:09:03 05/07/20 25 05/07/2025 AUTOD IFF lymphocytes 25.9 % 19.3-5 1.7 Not Available Sc Only - [facility] [address] [place] [address], 365[address], 05/07/2025 19:09:03 05/07/20 25 05/07/2025 AUTOD IFF monocytes 11.8 % 4.7-12 .5 Not Available Sc Only - [facility] [address] [place] [address], [address], 05/07/2025 19:09:03 05/07/20 25 05/07/2025 AUTOD IFF eosinophils 3.8 % 0.7-5. 8 Not Available Sc Only - [address], [address], 05/07/2025 19:09:03 05/07/20 25 05/07/2025 AUTOD IFF basophils 1.0 % 0.1-1. 2 Not Available Sc Only - [address], [address], 05/07/2025 19:09:03 05/07/20 25 05/07/2025 AUTOD IFF imm auto 0.3 % 0.0-1. 5 Not Available Sc Only - [address], [address], 05/07/2025 19:09:03 05/07/20 25 05/07/2025 AUTOD IFF NRBC auto 0.0 /100W BC 0.0-0. 2 Not Available Sc Only - [address], [address], 05/07/2025 19:09:03 05/07/20 25 05/07/2025 AUTOD IFF absolute neutrophils 3.33 x10 1.56-6 .13 Not Available Sc Only - [address], [address], 05/07/2025 19:09:03 05/07/20 25 05/07/2025 AUTOD IFF absolute lymphocytes 1.51 x10 1.18-3 .74 Not Available Sc Only - [address], [address], 05/07/2025 19:09:03 05/07/20 25 05/07/2025 AUTOD IFF absolute monocytes 0.69 x10 0.24-0 .36 high Not Available Sc Only - [facility] [address] [place] [address], [address], 05/07/2025 19:09:03 05/07/20 25 05/07/2025 AUTOD IFF absolute eosinophils 0.22 x10 0.04-0 .36 Not Available Nh Only - [facility] [address] [place] [address], [address], 05/07/2025 19:09:03 05/07/20 25 05/07/2025 AUTOD IFF absolute basophils 0.06 x10 0.01-0 .08 Not Available Nh Only - [facility] [address] [place] [address], [address], 05/07/2025 19:09:03 05/07/20 25 05/07/2025 AUTOD IFF imm absolute 0.02 x10 0.00-0 .15 Not Available Nh Only - [facility] [address] [place] [address], [address], 05/07/2025 19:09:03 05/07/20 25 05/07/2025 AUTOD IFF NRBC absolute 0.00 x10 0.00-0 .01 Not Available Nh Only - [facility] [address] [place] [address], [address], 05/07/2025 19:09:03 05/07/20 25 05/09/2025 C URINE urine culture (new) abnormal Print Date/ Time: 2024 07:42 CDT Patie nt: JANINA WHITE P Micro biolo gy - Uroge nital Legen d: c=Cor recte d, F=Res ult Comme nt, S=Idalia cepti ble, I=Int ermed iate, R=Res istan t, N/A=N ot Appli cable PROCE DURE: Urine Cultu re [] ACCES KHALIDA: 087 SOURC E: Urine BODY SITE: COLLE CTED DATE/ TIME: 2024 17:03 CDT RECEI ELVA DATE/ TIME: 8/24/ 2025 17:22 CDT START DATE/ TIME: 2024 17:22 CDT FREE TEXT SOURC E: FI NAL REPOR TS Final Repor t [] Verif ied Date/ Time: 2024 07:42 CDT 40,00 0 cfu/m l Mixed presu mptiv e and Prote us speci es AR ELIMI NARY REPOR TS Preli minar y Repor t [] Verif ied Date/ Time: 2024 08:17 CDT 40,00 0 cfu/m l Mixed presu mptiv e and Prote us speci es Not Available Sc Only - [facility] [address] [place] [address], [address], 05/09/2025 08:43:01 05/07/2005/07/2025 UACS color Pauline Not Available Sc Only - [facility] [address] [place] [address], [address], 05/07/2025 19:09:16 05/07/2005/07/2025 UACS appearance Clear Not Avail able Sc Only - [facility] [address] [place] [address], [address], 05/07/2025 19:09:16 05/07/2005/07/2025 UACS specific gravity 1.016 1.003- 1.035 Not Available Nh Only - [facility] [address] [place] [address], 24[address], 05/07/2025 19:09:16 05/07/2005/07/2025 UACS pH urine 6.0 5.0-8. 0 Not Available Nh Only - [facility] [address] [place] [address], 98[address], 05/07/2025 19:09:16 05/07/2005/07/2025 UACS protein 1+ abnormal Not Availa ble Sc Only - [facility] [address] [place] [address], 787[address], 05/07/2025 19:09:16 05/07/2005/07/2025 UACS urine glucose Negati ve Not Available Nh Only - [facility] [address] [place] [address], [address]79[address], 05/07/2025 19:09:16 05/07/2005/07/2025 UACS ketones Negati ve Not Available [facility] [address], [address], 05/07/2025 19:09:16 05/07/2005/07/2025 UACS urine bilirubin Negati ve Not Available [facility] [address], [address], 05/07/2025 19:09:16 05/07/2005/07/2025 UACS urine HGB 1+ abnormal Not Avai lable [facility] [address] [place] [address], [address], 05/07/2025 19:09:16 05/07/2005/07/2025 UACS nitrite Positi ve abnormal Not Available [facility] [address] [place] [address], [address], 05/07/2025 19:09:16 05/07/2005/07/2025 UACS leukocyte esterase 1+ abnormal [facility] [address], [address], 05/07/2025 19:09:16 05/07/2005/07/2025 UACS urobilinogen >=4.0 abnormal Refer ence Range : <=1 Not Available [facility] [address] [place] [address], [address], 05/07/2025 19:09:16 05/07/2005/07/2025 UACS urine WBCs 26-50 abnormal Refer ence Range : <=5 Not Available [facility] - [facility] [address] [place] [address], [address], 05/07/2025 19:09:16 05/07/20 25 05/07/2025 UACS urine RBCs 3-5 abnormal Refer ence Range : <=2 Not Available [facility] [address] [place] [address], [address], 05/07/2025 19:09:16 05/07/20 25 05/07/2025 UACS squamous epithelial cells 3+ Refer ence Range : <=3+ Not Available [address], [address], 05/07/2025 19:09:16 05/07/20 25 05/07/2025 UACS bacteria Trace abnormal Refer ence Range : <=Tra ce, Non-C ath Not Available [address], [address], 05/07/2025 19:09:16 05/07/20 25 05/07/2025 UACS transitional epithelial cells Few Refer ence Range : <=2+ Not Available [facility] - [address], [address], 05/07/2025 19:09:16 05/07/2005/07/2025 UACS hyaline casts 1 /lpf 0-2 Not Available [facility] On[facility] - [facility] [address] [place] [address], [address], 05/07/2025 19:09:16 05/07/2005/07/2025 UACS UA mucous Presen t Not Available [facility] [address] [place] [address], [address], 05/07/2025 19:09:16 05/07/20 25 05/07/2025 UACS urine ascorbic acid Negati ve Ascor bic acid can inter fere with the detec tion of blood , gluco se, and nitri te. Not Available [facility] [address] [place] [address], [address], 05/07/2025 19:09:16 05/07/20 25 05/08/2025 C URINE urine culture (new) abnormal Print Date/ Time: 2024 08:17 CDT Patie nt: JANINA WHITE P Micro biolo gy - Uroge nital Legen d: c=Cor recte d, F=Res ult Comme nt, S=Idalia cepti ble, I=Int ermed iate, R=Res istan t, N/A=N ot Appli cable PROCE DURE: Urine Cultu re [] ACCES KHALIDA: 003 087 SOURC E: Urine BODY SITE: COLLE CTED DATE/ TIME: 2024 17:03 CDT RECEI ELVA DATE/ TIME: 2024 17:22 CDT START DATE/ TIME: 2024 17:22 CDT FREE TEXT SOURC E: AR ELIMI NARY REPOR TS Preli minar y Repor t [] Verif ied Date/ Time: 2024 08:17 CDT 40,00 0 cfu/m l Mixed presu mptiv e and Prote us speci es Not Available Nh Only - [facility] [address] [place] [address], [address], 05/08/2025 09:17:23 05/18/2005/18/2025 LIPAS E lipase 33 U/L 8 - 57 Not Available Nh Only - [facility] [address] [place], [address], 05/18/2025 06:33:26 05/18/2005/18/2025 COMPL ETE METAB OLIC PANEL sodium 142 mmol/ L 136 - 145 Not Available Nh Only - [facility] [address] [place], [address], 05/18/2025 06:33:22 05/18/2005/18/2025 COMPL ETE METAB OLIC PANEL potassium 3.6 mmol/ L 3.5 - 5.1 Not Available Nh Only - [facility] [address] [place], [address], 05/18/2025 06:33:22 05/18/20 25 05/18/2025 COMPL ETE METAB OLIC PANEL chloride 111 mmol/ L 98 - 107 high Not Available Nh Only - [facility] [address] [place], [address], 05/18/2025 06:33:22 05/18/20 25 05/18/2025 COMPL ETE METAB OLIC PANEL CO2 24 mmol/ L 22 - 28 Not Available Nh Only - [facility] [address] [place], [address], 05/18/2025 06:33:22 05/18/20 25 05/18/2025 COMPL ETE METAB OLIC PANEL glucose 132 mg/dL 70 - 105 high Not Available Nh Only - [facility] [address] [place], [address], 05/18/2025 06:33:22 05/18/20 25 05/18/2025 COMPL ETE METAB OLIC PANEL BUN 16 mg/dL 7 - 18 Not Available Nh Only - [facility] [address] [place], [address], 05/18/2025 06:33:22 05/18/20 25 05/18/2025 COMPL ETE METAB OLIC PANEL creatinine 0.82 mg/dL 0.44 - 1.24 Not Available Nh Only - [facility] [address] [place], [address], 05/18/2025 06:33:22 05/18/2005/18/2025 COMPL ETE METAB OLIC PANEL total protein 6.4 g/dL 6.0 - 8.3 Not Available Nh Only - [facility] [address] [place], [address], 05/18/2025 06:33:22 05/18/20 25 05/18/2025 COMPL ETE METAB OLIC PANEL albumin 3.4 g/dL 3.5 - 5.0 low Not Available N[facility] Only - [facility] [address] [place], [address], 05/18/2025 06:33:22 05/18/20 25 05/18/2025 COMPL ETE METAB OLIC PANEL T bilirubin 0.5 mg/dL 0.2 - 1.0 Not Available Nh Only - [facility] [address] [place], [address], 05/18/2025 06:33:22 05/18/20 25 05/18/2025 COMPL ETE METAB OLIC PANEL SGPT 20 IU/L 10 - 40 Not Available Nh Only - [facility] [address] [place], [address], 05/18/2025 06:33:22 05/18/20 25 05/18/2025 COMPL ETE METAB OLIC PANEL alk phos 127 IU/L 32 - 92 high Not Available Nh Only - [facility] [address] [place], [address], 05/18/2025 06:33:22 05/18/20 25 05/18/2025 COMPL ETE METAB OLIC PANEL SGOT 23 IU/L 10 - 42 Not Available Nh Only - [facility] [address] [place], [address], 05/18/2025 06:33:22 05/18/20 25 05/18/2025 COMPL ETE METAB OLIC PANEL calcium 9.0 mg/dL 8.4 - 10.2 Not Available Nh Only - [facility] [address] [place], [address], 05/18/2025 06:33:22 05/18/20 25 05/18/2025 COMPL ETE METAB OLIC PANEL age 54 yr Not Available Nh Only - [facility] [address] [place], [address], 05/18/2025 06:33:22 05/18/20 25 05/18/2025 COMPL ETE METAB OLIC PANEL eGFR 85 [...] Sc Only - [facility] [address] [place], [address], 05/18/2025 06:33:22 05/18/20 25 05/18/2025 CBC-C OMPLE TE WBC 7.0 10^3u L 4.0 - 10.8 Not Available Sc Only - [facility] [address] [place], [address], 05/18/2025 06:15:17 05/18/2005/18/2025 CBC-C OMPLE TE RBC 3.67 10^6u L 3.80 - 5.20 low Not Available Sc Only - [facility] [address] [place], [address], 05/18/2025 06:15:17 05/18/2005/18/2025 CBC-C OMPLE TE hemoglobin 10.2 g/dL 11.7 - 16.0 low Not Available Sc Only - [facility] [address] [place], [address], 05/18/2025 06:15:17 05/18/2005/18/2025 CBC-C OMPLE TE hematocrit 30.4 % 35.0 - 47.0 low Not Available [facility] Only - [facility] [address] [place], [address], 05/18/2025 06:15:17 05/18/2005/18/2025 CBC-C OMPLE TE MCV 83 fL 80 - 100 Not Available Nh Only - [facility] [address] [place], [address], 05/18/2025 06:15:17 05/18/2005/18/2025 CBC-C OMPLE TE MCH 28 pg 28 - 33 Not Available Nh Only - [facility] [address] [place], [address], 05/18/2025 06:15:17 05/18/2005/18/2025 CBC-C OMPLE TE MCHC 34 g/dL 32 - 36 Not Available Nh Only - [facility] [address] [place], [address], 05/18/2025 06:15:17 05/18/2005/18/2025 CBC-C OMPLE TE RDW 15.0 % 11.5 - 15.5 Not Available Nh Only - [facility] [address] [place], [address], 05/18/2025 06:15:17 05/18/2005/18/2025 CBC-C OMPLE TE platelet 204 10^3u L 140 - 440 Not Available Nh Only - [facility] [address] [place], [address], 05/18/2025 06:15:17 05/18/2005/18/2025 CBC-C OMPLE TE MPV 7.4 fL 7.5 - 11.0 low Not Available Nh Only - [facility] [address] [place], [address], 05/18/2025 06:15:17 05/18/2005/18/2025 CBC-C OMPLE TE %neutrophils 53.2 % 40.0 - 75.0 Not Available Nh Only - [facility] [address] [place], [address], 05/18/2025 06:15:17 05/18/2005/18/2025 CBC-C OMPLE TE %lymphocytes 31.5 % 15.0 - 45.0 Not Available Nh Only - [facility] [address] [place], [address], 05/18/2025 06:15:17 05/18/2005/18/2025 CBC-C OMPLE TE %monocytes 11.0 % 2.0 - 12.0 Not Available Nh Only - [facility] [address] [place], [address], 05/18/2025 06:15:17 05/18/2005/18/2025 CBC-C OMPLE TE %eosinophils 2.9 % 0.0 - 5.0 Not Available Nh Only - [facility] [address] [place], [address], 05/18/2025 06:15:17 05/18/2005/18/2025 CBC-C OMPLE TE %basophils 1.4 % 0.0 - 2.0 Not Available Nh Only - [facility] [address] [place], [address], 05/18/2025 06:15:17 05/18/2005/18/2025 CBC-C OMPLE TE neutrophil 3.8 10^3/ uL 1.7 - 7.0 Not Available Nh Only - [facility] [address] [place], [address], 05/18/2025 06:15:17 05/18/2005/18/2025 CBC-C OMPLE TE lymphocyte 2.2 10^3/ uL 0.9 - 3.7 Not Available Nh Only - [facility] [address] [place], [address], 05/18/2025 06:15:17 05/18/2005/18/2025 CBC-C OMPLE TE monocyte 0.8 10^3/ uL 0.2 - 0.8 Not Available Nh Only - [facility] [address] [place], [address], 05/18/2025 06:15:17 05/18/2005/18/2025 CBC-C OMPLE TE eosinophil 0.2 10^3/ uL 0.0 - 0.5 Not Available Nh Only - [facility] [address] [place], [address], 05/18/2025 06:15:17 05/18/2005/18/2025 CBC-C OMPLE TE basophil 0.1 10^3/ uL 0.0 - 0.2 Not Available Nh Only - [facility] [address] [place], [address], 05/18/2025 06:15:17 05/18/2005/18/2025 CBC-C OMPLE TE mdw 16.12 0.00 - 20.00 {CD] Not Available Nh Only - [facility] [address] [place], [address], 05/18/2025 06:15:17 05/18/2005/18/2025 CBC-C OMPLE TE manual diff NOT INDICA MICHELLE Not Available Sc Only - [facility] [address] [place], [address], 05/18/2025 06:15:17 05/18/2005/18/2025 LACTI C ACID lactic acid 1.05 mmol/ L 0.50 - 2.20 Not Available Nh Only - [facility] [address] [place], [address], 05/18/2025 06:12:25 05/18/2005/21/2025 CULTU RE/UR INE results _CULT URE URINE _ Not Available Nh Only - [facility] [address] [place], [address], 05/21/2025 08:28:50 05/18/2005/21/2025 CULTU RE/UR INE final report CLEAN CATCH SPECIM EN _>100 ,000_ cfu/m l____ ___ 05/21.0 727.C ML. _MIXE D_GRA M_POS ITIVE _AND_ NEGAT IVE_F LORA_ ___ 05/21.0 727.C ML. SET PREDO MINAN T ORGAN ISMS Micro biolo gy Not Available Nh Only - [facility] [address] [place], [address], 05/21/2025 08:28:50 05/18/2005/21/2025 CULTU RE/UR INE results Speci [place] Sourc e [id number] 0001 Colle ction Date 05/18 Colle ction Time 04:42 Speci men Note: Recei pt Date Exam Id. No: [id number] Exam Statu s Compl etion Date 05/20 Compl etion Time 20:52 Organ ism # 1: Esche veronika a coli (escc ol) 100 000 cfu/m L Organ ism # 2: Prote us mirab ilis (prom ir) 100 000 cfu/m L Antib iotic s escco l(1) promi r(2) ESBL Neg N Ampic illin >=32 R Ampic illin /Sulb actam 16 I Piper acill in/Ta zobac jn <=4 S Cefaz antoni 4 I Cefta [...] PREDO MINAN T ORGAN ISMS Not Available Nh Only - [facility] [address] [place], [address], 05/21/2025 08:28:50 05/18/2005/1805/18/2025 URINA LYSIS color YELLOW normal : yellow Not Available Nh Only - [facility] [address] [place], [address], 05/18/2025 06:03:49 05/18/20 25 05/18/2025 URINA LYSIS character HAZY normal : clear Not Available Nh Only - [facility] [address] [place], [address], 05/18/2025 06:03:49 05/18/20 25 05/18/2025 URINA LYSIS spec. grav 1.015 normal : 1.003- 1.029 Not Available Nh Only - [facility] [address] [place], [address], 05/18/2025 06:03:49 05/18/20 25 05/18/2025 URINA LYSIS pH 7.0 normal : 4.5 - 7.8 Not Available Nh Only - [facility] [address] [place], [address], 05/18/2025 06:03:49 05/18/20 25 05/18/2025 URINA LYSIS leukocytes 2+ normal : negati ve Not Available Nh Only - [facility] [address] [place], [address], 05/18/2025 06:03:49 05/18/2005/18/2025 URINA LYSIS nitrite NEGATI VE normal : negati ve Not Available Nh Only - [facility] [address] [place], [address], 05/18/2025 06:03:49 05/18/20 25 05/18/2025 URINA LYSIS protein NEGATI VE normal : negati ve Not Available Nh Only - [facility] [address] [place], [address], 05/18/2025 06:03:49 05/18/20 25 05/18/2025 URINA LYSIS glucose NEGATI VE normal : negati ve Not Available Nh Only - [facility] [address] [place], [address], 05/18/2025 06:03:49 05/18/20 25 05/18/2025 URINA LYSIS ketones NEGATI VE normal : negati ve Not Available Nh Only - [facility] [address] [place], [address], 05/18/2025 06:03:49 05/18/20 25 05/18/2025 URINA LYSIS urobilinogen 0.2 normal : 0.2 - 1.0 Not Available Nh Only - [facility] [address] [place], [address], 05/18/2025 06:03:49 05/18/2005/18/2025 URINA LYSIS bilirubin NEGATI VE normal : negati ve Not Available Nh Only - [facility] [address] [place], [address], 05/18/2025 06:03:49 05/18/2005/18/2025 URINA LYSIS blood NEGATI VE normal : negati ve MICRO SCOPI C Not Available Nh Only - [facility] [address] [place], [address], 05/18/2025 06:03:49 05/18/20 25 05/18/2025 URINA LYSIS WBC/hpf 20-30 normal : 0-5 hpf CULTU RE TO FOLLO W PER [place] Not Available Nh Only - [facility] [address] [place], [address], 05/18/2025 06:03:49 05/18/2005/18/2025 URINA LYSIS RBC/hpf 5-10 normal : 0-3 hpf Not Available Nh Only - [facility] [address] [place], [address], 05/18/2025 06:03:49 05/18/20 25 05/18/2025 URINA LYSIS epith/hpf 30-50 normal : 0-5 hpf Not Available Nh Only - [facility] [address] [place], [address], 05/18/2025 06:03:49 05/18/20 25 05/18/2025 URINA LYSIS cast/lpf NONE SEEN normal : 0-4 lpf Not Available Nh Only - [facility] [address] [place], [address], 05/18/2025 06:03:49 05/18/20 25 05/18/2025 URINA LYSIS crystals NONE SEEN normal : negati ve Not Available Nh Only - [facility] [address] [place], [address], 05/18/2025 06:03:49 05/18/20 25 05/18/2025 URINA LYSIS bacteria 1+ normal : negati ve abnormal Not Available Nh Only - [facility] [address] [place], [address], 05/18/2025 06:03:49 05/18/20 25 05/18/2025 URINA LYSIS other MUCUS 1+ Not Available Nh Only - [facility] [address] [place], [address], 05/18/2025 06:03:49 05/26/20 25 05/26/2025 UACS color Yellow Not Available Nh Only - [facility] [address] [place] [address], [address], 05/26/2025 09:18:45 05/26/20 25 05/26/2025 UACS appearance Clear Not Avail able Nh Only - [facility] [address] [place] [address], [address], 05/26/2025 09:18:45 05/26/20 25 05/26/2025 UACS specific gravity 1.013 1.003- 1.030 Not Available Nh Only - [facility] [address] [place] [address], [address], 05/26/2025 09:18:45 05/26/20 25 05/26/2025 UACS pH urine 6.0 4.5-7. 5 Not Available Nh Only - [facility] [address] [place] [address], 7[address], 05/26/2025 09:18:45 05/26/20 25 05/26/2025 UACS protein 30 abnormal Not Availa ble Nh Only - [facility] [address] [place] [address], 95[address], 05/26/2025 09:18:45 05/26/20 25 05/26/2025 UACS urine glucose Negati ve Not Available Nh Only - [facility] [address] [place] [address], [address], 05/26/2025 09:18:45 05/26/20 25 05/26/2025 UACS ketones Negati ve Not Available Nh Only - [facility] [address] [place] [address], [address], 05/26/2025 09:18:45 05/26/20 25 05/26/2025 UACS urine bilirubin Negati ve Not Available Nh Only - [facility] [address] [place] [address], [address], 05/26/2025 09:18:45 05/26/20 25 05/26/2025 UACS urine HGB Negati ve Not Available Nh Only - [facility] [address] [place] [address], [address], 05/26/2025 09:18:45 05/26/20 25 05/26/2025 UACS nitrite Negati ve Not Available Nh Only - [facility] [address] [place] [address], 67[address], 05/26/2025 09:18:45 05/26/20 25 05/26/2025 UACS leukocyte esterase Large abnormal Not Available Nh On y - [facility] [address], [address], 05/26/2025 09:18:45 05/26/20 25 05/26/2025 UACS urobilinogen Normal Not Dalila ilable [facility] [address] [place] [address], [address], 05/26/2025 09:18:45 05/26/20 25 05/26/2025 UACS urine WBCs 10 /hpf 0-4 high Not Avail able Nh Only [facility] [address] [place] [address], 6[address], 05/26/2025 09:18:45 05/26/20 25 05/26/2025 UACS urine RBCs 1 /hpf 0-2 Not Avail able Nh Only [facility] [address] [place] [address], [address], 05/26/2025 09:18:45 05/26/20 25 05/26/2025 UACS squamous epithelial cells 6 /hpf 0-5 high [facility] [address] [place] [address], [address], 05/26/2025 09:18:45 05/26/20 25 05/26/2025 UACS bacteria Occasi onal abnormal Not Available [facility] [address] [place] [address], 49[address], 05/26/2025 09:18:45 05/26/20 25 05/26/2025 UACS transitional epithelial cells 1 /hpf 0-1 Not Available [facility] [address] [place] [address], 467[address], 05/26/2025 09:18:45 05/26/20 25 05/27/2025 C URINE urine culture (new) abnormal Print Date/ Time: 2024 13:07 CDT Patie nt: JANINA WHITE P Micro biolo gy - Uroge nital Legen d: c=Cor recte d, F=Res ult Comme nt, S=Idalia cepti ble, I=Int ermed iate, R=Res istan t, N/A=N ot Appli cable PROCE DURE: Urine Cultu re [] ACCES KHALIDA: 5-001 121 SOURC E: Urine BODY SITE: [...] work- up is neede d. Not Available [facility] Only - [facility] [address] [place] [address], 396[address], 05/27/2025 14:07:20 05/26/20 25 05/26/2025 BN PEPTI DE BNP 18 pg/mL 0-72 Not Available Nh Only - [facility] [address] [place] [address], 50[address], 05/26/2025 08:08:43 05/26/20 25 05/26/2025 DIMER D-dimer test 0.45 mcg/m L <=0.50 D-Dim ers are the resul t of fibri nolyt ic break down of cross -link ed fibri n. Hiwassee tions indic ate incre ased fibri nolys [...] nogen equiv alent units (feu) Not Available Nh Only - [facility] [address] [place] [address], [address], 05/26/2025 07:28:09 05/26/20 25 05/26/2025 HSTRO P high sensitivity troponin I 5.4 [...] delta . Not Available Sc Only - [facility] [address] [place] [address], 14[address], 05/26/2025 07:13:31 05/26/2005/26/2025 EGFR eGFR 54 mL/mi n/1.7 3m? This [...] Sc Only - [facility] [address] [place] [address], 55[address], 05/26/2025 07:10:12 05/26/2005/26/2025 MG magnesium 1.8 mg/dL 1.9-2. 7 low Not Available Sc Only - [facility] [address] [place] [address], 18[address], 05/26/2025 07:10:11 05/26/20 25 05/26/2025 CMP sodium 137 mmol/ L 136-14 5 Not Available Nh Only - [facility] [address], [address], 05/26/2025 07:10:10 05/26/20 25 05/26/2025 CMP potassium 3.9 mmol/ L 3.5-5. 1 Not Available Nh Only - [facility] [address] [place] [address], 105[address], 05/26/2025 07:10:10 05/26/20 25 05/26/2025 CMP chloride 104 mmol/ L 98-107 Not Available Nh Only - [facility] [address] [place] [address], 12[address], 05/26/2025 07:10:10 05/26/2005/26/2025 CMP CO2 24 mmol/ L 21-31 Not Available Nh Only - [facility] [address] [place] [address], 93[address], 05/26/2025 07:10:10 05/26/20 25 05/26/2025 CMP BUN 19 mg/dL 7-25 Not Available Nh Only - [facility] [address] [place] [address], 507[address], 05/26/2025 07:10:10 05/26/20 25 05/26/2025 CMP creatinine 1.2 mg/dL 0.6-1. 3 Not Available Nh Only - [facility] [address] [place] [address], 27[address], 05/26/2025 07:10:10 05/26/20 25 05/26/2025 CMP glucose 164 mg/dL 70-105 high Not Availabl e Nh Only - [facility] [address] [place] [address], 6[address], 05/26/2025 07:10:10 05/26/20 25 05/26/2025 CMP calcium 9.4 mg/dL 8.6-10 .3 Not Available Nh Only - [facility] [address] [place] [address], 25[address], 05/26/2025 07:10:10 05/26/20 25 05/26/2025 CMP total protein 6.7 gm/dL 6.0-8. 3 Not Available Nh Only - [facility] [address] [place] [address], 018[address], 05/26/2025 07:10:10 05/26/2005/26/2025 CMP albumin 4.0 gm/dL 3.5-5. 7 Not Available Nh Only - [facility] [address] [place] [address], 31410, 05/26/2025 07:10:10 05/26/2005/26/2025 CMP bilirubin (total) 0.7 mg/dL 0.3-1. 0 Not Available Nh Only - [address], [address], 05/26/2025 07:10:10 05/26/2005/26/2025 CMP AST 23 IU/L 13-39 Not Available Nh Only - [facility] [address] [place] [address], 57[address], 05/26/2025 07:10:10 05/26/2005/26/2025 CMP alk phos 135 IU/L 34-104 high Not Availab le Nh Only - [facility] [address] [place] [address], 29[address], 05/26/2025 07:10:10 05/26/20 25 05/26/2025 CMP ALT 16 IU/L 7-52 Not Available Nh Only - [facility] [address] [place] [address], 19[address], 05/26/2025 07:10:10 05/26/2005/26/2025 CMP anion gap 9 8-16 Anion gap calcu lated using formu la: Na - (Cl + CO2) Measu red total CO2 is used in place of HCO3 Not Available Nh Only - [facility] [address] [place] [address], 16398, 05/26/2025 07:10:10 05/26/2005/26/2025 DIFF neutrophils 60 % 47-67 Not Avai lable Nh Only - [address], [address], 05/26/2025 06:44:31 05/26/2005/26/2025 DIFF lymphocytes 27 % 25-45 Not Avai lable Nh Only - [address], [address], 05/26/2025 06:44:31 05/26/2005/26/2025 DIFF monocytes 9 % 1-9 Not Availa ble Nh Only - [address], [address], 05/26/2025 06:44:31 05/26/2005/26/2025 DIFF eosinophils 3 % 0-6 Not Avai lable Nh Only - [address], [address], 05/26/2025 06:44:31 05/26/2005/26/2025 DIFF basophils 1 % 0-2 Not Availa ble Nh Only - [address], [address], 05/26/2025 06:44:31 05/26/2005/26/2025 DIFF absolute neutrophils 5.1 K/cum m 1.8-6. 5 Not Available Nh Only - [address], [address], 05/26/2025 06:44:31 05/26/2005/26/2025 DIFF absolute lymphocytes 2.2 K/cum m 0.9-3. 0 Not Available Nh Only - [address], [address], 05/26/2025 06:44:31 05/26/2005/26/2025 DIFF absolute monocytes 0.8 K/cum m 0.2-0. 8 Not Available Nh Only - [address], [place], [address], 05/26/2025 06:44:31 05/26/2005/26/2025 DIFF absolute eosinophils 0.3 K/cum m 0.0-0. 4 Not Available Nh Only - [address], [address], 05/26/2025 06:44:31 05/26/2005/26/2025 DIFF absolute basophils 0.1 K/cum m 0.0-0. 2 Not Available Nh Only - [address], [address], 05/26/2025 06:44:31 05/26/2005/26/2025 CBC W/ AUTO DIFF WBC 8.4 K/cum m 3.4-9. 4 Not Available Nh Only - [address], [address], 05/26/2025 06:44:29 05/26/2005/26/2025 CBC W/ AUTO DIFF RBC 4.05 M/cum m 4.20-5 .40 low Not Available Nh Only - [address], [address], 05/26/2025 06:44:29 05/26/2005/26/2025 CBC W/ AUTO DIFF hemoglobin 11.2 gm/dL 12.0-1 6.0 low Not Available Nh Only - [address], [address], 05/26/2025 06:44:29 05/26/2005/26/2025 CBC W/ AUTO DIFF hematocrit 33 % 37-47 low Not Available Nh Only - [address], [address], 05/26/2025 06:44:29 05/26/20 25 05/26/2025 CBC W/ AUTO DIFF MCV 81 81-94 Not Available Nh Only - [address], [address], 05/26/2025 06:44:29 05/26/2005/26/2025 CBC W/ AUTO DIFF MCH 27.6 pg 27.5-3 3.2 Not Available Sc Only - [facility] [address] [place] [address], [address], 05/26/2025 06:44:29 05/26/2005/26/2025 CBC W/ AUTO DIFF MCHC 34.0 g/dL 31.0-3 6.0 Not Available Sc Only - [facility] [address] [place] [address], [address]327, 05/26/2025 06:44:29 05/26/2005/26/2025 CBC W/ AUTO DIFF RDW 14.4 % 11.7-1 5.5 Not Available Nh Only - [address], [address], 05/26/2025 06:44:29 05/26/2005/26/2025 CBC W/ AUTO DIFF platelets 280 K/cum m 140-41 0 Not Available Nh Only - [address], [address], 05/26/2025 06:44:29 05/26/2005/26/2025 CBC W/ AUTO DIFF MPV 8.4 mL Not Available Nh Only - [address], [address], 05/26/2025 06:44:29 06/07/2006/07/2025 CBC CBC Not Available [facility] - [facility] [address] [place] [address], [address], 06/07/2025 19:14:12 06/07/20 25 06/07/2025 CBC WBC 5.9 K/uL 3.8-11 .2 Not Available [facility] Only - [facility] [address] [place] [address], 70050, 06/07/2025 19:14:12 06/07/2006/07/2025 CBC RBC 4.18 M/uL 3.92-5 .10 Not Available [facility] - [facility] [address] [place] [address], 96124, 06/07/2025 19:14:12 06/07/2006/07/2025 CBC HGB 11.5 g/dL 11.8-1 5.3 low Not Available [facility] - [facility] [address] [place] [address], 44939, 06/07/2025 19:14:12 06/07/2006/07/2025 CBC HCT 35.2 % 36.5-4 4.8 low Not Available [facility] - [facility] [address] [place] [address], 07863, 06/07/2025 19:14:12 06/07/2006/07/2025 CBC MCV 84.2 fL 80.0-9 9.0 Not Available [facility] - [facility] [address] [place] [address], 67210, 06/07/2025 19:14:12 06/07/2006/07/2025 CBC MCH 27.5 pg 25.5-3 3.6 Not Available [facility] - [facility] [address] [place] [address], 72305, 06/07/2025 19:14:12 06/07/2006/07/2025 CBC MCHC 32.7 g/dL 32.0-3 6.0 Not Available [facility] - [facility] [address] [place] [address], 40272, 06/07/2025 19:14:12 06/07/2006/07/2025 CBC RDW-SD 39.6 fL 35.1 - 46.3 Not Available [facility] - [facility] [address] [place] [address], 71697, 06/07/2025 19:14:12 09/24/20 25 06/07/2025 CBC plt 272 K/uL 130-40 0 Not Available Nh Only - [facility] [address] [place] [address], 96992, 06/07/2025 19:14:12 06/07/2006/07/2025 CBC MPV 9.9 fL 9.3-12 .8 Not Available N[facility] Only - [facility] [address] [place] [address], 10523, 06/07/2025 19:14:12 06/07/2006/07/2025 urina lysis , compl ete urinalysis, complete LOW LEVEL S OF HEMOG LOBIN IN ABSEN CE OF HEMAT URIA MAY NOT BE CLINI MARCOS SIGNI FICAN T. Not Available Nh Only - [facility] [address] [place] [address], 10106, 06/07/2025 19:21:12 06/07/2006/07/2025 urina lysis , compl ete color DARK YELLOW Dipst ick may be inacc urate due to the color of the urine Not Available N[facility] Only - [facility] [address] [place] [address], 62619, 06/07/2025 19:21:12 06/07/2006/07/2025 urina lysis , compl ete clarity CLEAR Not Available N[facility] Only - [facility] [address] [place] [address], 35299, 06/07/2025 19:21:12 06/07/2006/07/2025 urina lysis , compl ete pH 7.0 5.0-7. 5 Not Available N[facility] Only - [facility] [address] [place] [address], 39553, 06/07/2025 19:21:12 06/07/2006/07/2025 urina lysis , compl ete specific gravity 1.010 1.000- 1.030 Not Available [facility] Only - [facility] [address] [place] [address], 10288, 06/07/2025 19:21:12 06/07/2006/07/2025 urina lysis , compl ete blood NEGATI VE negati ve Not Available N[facility] Only - [facility] [address] [place] [address], 20975, 06/07/2025 19:21:12 06/07/20 25 06/07/2025 urina lysis , compl ete bilirubin NEGATI VE negati ve Not Available N[facility] Only - [facility] [address] [place] [address], 17454, 06/07/2025 19:21:12 06/07/20 25 06/07/2025 urina lysis , compl ete urobilinogen 1.0 0.2-1. 0 Not Available N[facility] Only - [facility] [address] [place] [address], 16092, 06/07/2025 19:21:12 06/07/2006/07/2025 urina lysis , compl ete ketone NEGATI VE negati ve Not Available N[facility] Only - [facility] [address] [place] [address], 56294, 06/07/2025 19:21:12 06/07/2006/07/2025 urina lysis , compl ete glucose NEGATI VE negati ve Not Available N[facility] Only - [facility] [address] [place] [address], 31393, 06/07/2025 19:21:12 06/07/2006/07/2025 urina lysis , compl ete protein NEGATI VE negati ve Not Available N[facility] Only - [facility] [address] [place] [address], 09526, 06/07/2025 19:21:12 06/07/2006/07/2025 urina lysis , compl ete nitrite POSITI VE negati ve abnormal Not Available N[facility] Only - [facility] [address] [place] [address], 58569, 06/07/2025 19:21:12 06/07/2006/07/2025 urina lysis , compl ete leukocytes 1+ negati ve abnormal Not Available [facility] Only - [facility] [address] [place] [address], 72651, 06/07/2025 19:21:12 06/07/20 25 06/07/2025 urina lysis , compl ete review * Micro scopi c resul ts revie wed by Techn [facility] Not Available N[facility] Only - [facility] [address] [place] [address], 19338, 06/07/2025 19:21:12 06/07/20 25 06/07/2025 urina lysis , compl ete RBC 0-2 0-2/hp f Not Available [facility] Only - [facility] [address] [place] [address], 10876, 06/07/2025 19:21:12 06/07/20 25 06/07/2025 urina lysis , compl ete WBC 0-5 0-5/hp f Not Available [facility] Only - [facility] [address] [place] [address], 80732, 06/07/2025 19:21:12 06/07/20 25 06/07/2025 urina lysis , compl ete WBC. CONFI Cell count s confi rmed by Techn [facility] Not Available N[facility] Only - [facility] [address] [place] [address], 98617, 06/07/2025 19:21:12 06/07/20 25 06/07/2025 urina lysis , compl ete squamous epithelial 3-5 0-10/h pf Not Available [facility] Only - [facility] [address] [place] [address], 70545, 06/07/2025 19:21:12 06/07/20 25 06/07/2025 urina lysis , compl ete bacteria NONE SEEN none Not Available N[facility] Only - [facility] [address] [place] [address], 90747, 06/07/2025 19:21:12 06/07/20 25 06/07/2025 urina lysis , compl ete hyaline cast 0-2 0-2/lp f Not Available N[facility] Only - [facility] [address] [place] [address], 52417, 06/07/2025 19:21:12 06/07/20 25 06/07/2025 renal funct ion panel , serum renal function panel Not Available Nh On [facility] - [facility] [address] [place] [address], 92049, 06/07/2025 19:42:24 06/07/20 25 06/07/2025 renal funct ion panel , serum sodium 140 mmol/ L 136-14 6 Not Available [facility] Only - [facility] [address] [place] [address], 93549, 06/07/2025 19:42:24 06/07/20 25 06/07/2025 renal funct ion panel , serum potassium 4.0 mmol/ L 3.5-5. 1 Not Available N[facility] Only - [facility] [address] [place] [address], 88340, 06/07/2025 19:42:24 06/07/20 25 06/07/2025 renal funct ion panel , serum chloride 106 mmol/ L 98-110 Not Available [facility] Only - [facility] [address] [place] [address], 25142, 06/07/2025 19:42:24 06/07/20 25 06/07/2025 renal funct ion panel , serum CO2 25 mEq/L 20-32 Not Available [facility] Only - [facility] [address] [place] [address], 34725, 06/07/2025 19:42:24 06/07/20 25 06/07/2025 renal funct ion panel , serum anion gap 13 mmol/ L 10-22 Not Available [facility] Only - [facility] [address] [place] [address], 26986, 06/07/2025 19:42:24 06/07/20 25 06/07/2025 renal funct ion panel , serum glucose 188 mg/dL 70-100 high Not Available [facility] Only - [facility] [address] [place] [address], 13465, 06/07/2025 19:42:24 06/07/20 25 06/07/2025 renal funct ion panel , serum calcium 9.5 mg/dL 8.4-10 .4 Not Available N[facility] Only - [facility] [address] [place] [address], 33850, 06/07/2025 19:42:24 06/07/20 25 06/07/2025 renal funct ion panel , serum albumin 4.1 g/dL 3.5-5. 3 Not Available [facility] Only - [facility] [address] [place] [address], 34149, 06/07/2025 19:42:24 06/07/20 25 06/07/2025 renal funct ion panel , serum phosphorus 3.1 mg/dL 2.7-4. 5 Not Available [facility] Only - [facility] [address] [place] [address], 09602, 06/07/2025 19:42:24 06/07/20 25 06/07/2025 renal funct ion panel , serum BUN 15 mg/dL 7-21 Not Available [facility] Only - [facility] [address] [place] [address], 82021, 06/07/2025 19:42:24 06/07/20 25 06/07/2025 renal funct ion panel , serum creatinine 0.9 mg/dL 0.7-1. 3 Not Available [facility] - [facility] [address] [place] [address], 07200, 06/07/2025 19:42:24 06/07/20 25 06/07/2025 renal funct ion panel , serum CKD-epi GFR 76 eGFR was calcu lated using the 2020 CKD-E PI equat ion. (Program Aide andree Kidne y Disea se has an eGFR less than 60 mL/mi n/1.7 3mm for a perio d of three month s or more. ) This calcu latio n has not been valid ated for patie nt ages <18 or >90 years old. Not Available [facility] Only - [facility] [address] [place] [address], 31535, 06/07/2025 19:42:24 06/07/2006/08/2025 micro album in, urine microalbumin ,random panel Not Available [facility] - [facility] [address] [place] [address], 41715, 06/08/2025 10:13:00 06/07/2006/08/2025 micro album in, urine microalbumin random 0.5 mg/dL Not Available [facility] [address] [place] [address], 66512, 06/08/2025 10:13:00 06/07/2006/08/2025 micro album in, urine creatinine, urine random 37 mg/dL Refer ence range not estab lishe d for other than 24 hour colle ction . Not Available [facility] - [facility] [address] [place] [address], 34483, 06/08/2025 10:13:00 06/07/2006/08/2025 micro album in, urine microalb/cre at ratio [...] in or Creat inine .) Not Available [facility] - [facility] [address] [place] [address], 02899, 06/08/2025 10:13:00 06/07/2006/08/2025 C4 (comp lemen t), serum or plasm a complement C4 44 mg/dL 12-38 high Not Available [facility] - [facility] [address] [place] [address], 55599, 06/08/2025 14:11:19 06/07/20 25 06/08/2025 C3 (comp lemen t), serum or plasm a complement C3 201 mg/dL 82-167 high Not Available [facility] - [facility] [address] [place] [address], [id number], 06/08/2025 14:11:20 06/07/20 25 06/08/2025 ADALBERTO (anti nucle ar antib odies ) scree n, serum ADALBERTO screen NEGATI VE negati ve Perfo rmed by Bio-R ad enzym e immun oassa y Not Available [facility] - [facility] [address] [place] [address], 74257, 06/08/2025 15:48:52 06/07/20 25 06/09/2025 cultu re [...] resis tant inter preta tion Not Available [facility] - [facility] [address] [place] [address], 78997, 06/09/2025 09:46:55 06/07/2006/09/2025 immun ofixa tion, serum immunofixati on, serum No monoc lonal ity detec michelle. Not Available [facility] - [facility] [address] [place] [address], 14662, 06/09/2025 15:12:43 06/07/2006/09/2025 immun ofixa tion, serum IgG quantitative 1147 mg/dL 586-16 02 Not Available [facility] - [facility] [address] [place] [address], 97505, 06/09/2025 15:12:43 06/07/2006/09/2025 immun ofixa tion, serum IgA quantitative 393 mg/dL 87-352 high Not Available [facility] - [facility] [address] [place] [address], 69394, 06/09/2025 15:12:43 06/07/2006/09/2025 immun ofixa tion, serum IgM quantitative 80 mg/dL 26-217 Not Available [facility] - [facility] [address] [place] [address], 72650, 06/09/2025 15:12:43 06/07/2006/12/2025 anca panel , serum anca, complete Not Available [facility] - [facility] [address] [place] [address], [id number], 06/12/2025 20:10:54 06/07/2006/12/2025 anca panel , serum myeloperoxid ase Ab <0.2 units 0.0-0. 9 Not Available [facility] [address] [place] [address], [id number], 06/12/2025 20:10:54 06/07/20 25 06/12/2025 anca panel , serum proteinase-3 Ab, anca <0.2 units 0.0-0. 9 Not Available [facility] [address] [place] [address], [id number], 06/12/2025 20:10:54 06/07/20 25 06/12/2025 anca panel , serum C-anca titer <1:20 titer neg:<1 :20 Not Available [facility] [address] [place] [address], [id number], 06/12/2025 20:10:54 06/07/20 25 06/12/2025 anca panel [...] ng of posit marquis sera with both AR-3 and MPO-A NCA enzym e immun oassa ys. As many as 5% serum sampl es are posit marquis only by EIA. Ref. AM J Clin Patho l 1999; 111:5 07-51 3. Not Available [facility] [address] [place] [address], [id number], 06/12/2025 20:10:54 06/07/20 25 06/12/2025 anca panel , serum atypical P anca titer <1:20 titer neg:<1 :20 The atypi radha pANCA patte rn has been obser elva in a signi fican t perce ntage of patie nts with ulcer ative colit is, prima ry scler osing chola ngiti s and autoi mmune hepat itis. Not Available [facility] [address] [place] [address], [id number], 06/12/2025 20:10:54 06/07/20 25 06/07/2025 UE urine eosinophils NEGATI VE Not Available [facility] - [facility] [address] [place] [address], [id number], 06/07/2025 23:40:52 06/07/20 25 06/08/2025 cultu re + sensi tivit y, urine urine culture and sens. PREL IM URINE GRAM NEGAT MARQUIS RODS DATE/ TIME: 06/08 10:17 >100, 000 CFU/m L Not Available [facility] [address] [place] [address], [id number], 06/08/2025 11:18:58 05/07/20 25 05/07/2025 CT, abdom en + pelvi s, w/o contr ast [facility] [address] [place] [address] [phone] Name: TL WHITE Age: 54 : 1970 Exam Date: 2024 ACCESS ION: [id number] ORDERI SWETHA MD: ANKUSH JOEL EXAM: CT [...] the subcut aneous as fat of the manager laundry ior abdomi nal wall/u pper glutea l [...] 17:57 Shelley Patterson MD Signed : 17:57 Shelley Patterson MD INTERFACE Nh Only - [facility] Rad [address] [place] [address], [address], 05/07/2025 19:01:25 05/18/[address], abdom en + pelvi s, w/ contr ast [facility] [address] [place]. [address] ------ ---NAM E----- ---- NUMBER SEX AGE ADMIT DISC. XRAY# F/C TYPE RICE JUANHLE EN P [id number] F 54 5 [id number] GIL E/R DATE OF : 1970 M/R# [id number] PH#: [id number] LOCATI ON: TRANSC RIBED: 6:22 CT [place] [id number] COMPLE MICHELLE: 4:39 TSY [id number] {REASO N FOR PROCED URE: Abdomi nal [...] to size, and the use of iterat maruqis recons tructi on techni que. CTDIvo l in mGy: 27.72 DLP in mGy-cm : 1344 FINDIN GS: The liver and spleen are normal in size and contou r. No adrena l mass. Pancre as is normal . There are cholec ystect javier change s. Stable 3.5 x 3.1 cm cyst at the [facility] bed. No pyelon ephrit [...] 3.5 x 3.1 cm cyst at the [facility] bed. Electr onical ly Signed By: SHADI Nieto MD , Date/T blayne: 06:22 INTERFACE Sc Only - [facility] Rad [address] [place], [address], 05/18/2025 07:26:44 05/21/20 25 05/21/2025 imagi swetha/kojo moyos tic resul t No observ ation record ed. [email or web address] [facility] - Radiology [address] [facility], [place], [address], 05/23/2025 13:18:15 05/22/20 25 05/13/2025 US, doppl er echoc ardio gram No observ ation record ed. BARCODE Not Available 2024 16:02:31 05/26/20 25 05/26/2025 D chest 1 view [facility] [address] [place] [address] Name: TL WHITE Age: 54 : 1970 Exam Date: 2024 ACCESS ION: [id number] BLAISE CALDERA MD: ISABELLA GARCES EXAM: Chest single view Date: 2024 [...] 06:45 Sergo Hebert MD Signed : 06:45 Sergo Hebert MD INTERFACE Nh Only - [facility] [address] [place] [address], [address], 05/26/2025 07:48:51 05/26/20 25 05/26/2025 XR, chest , 2 view No observ ation record ed. [facility] (Radiology) [address], [place], [address], 05/26/2025 14:34:26 05/28/[address] head scan w/o contr ast [facility] [address] [place]. [address] ------ ---NAM E----- ---- NUMBER SEX AGE ADMIT DISC. XRAY# F/C TYPE RICE TL EN P [id number] F 54 5 [id number] GIL E/R DATE OF : 1970 M/R# [id number] PH#: [id number] LOCATI ON: TRANSC RIBED: 14:29 CT HEAD SCAN W/[place] [address] COMPLE MICHELLE: 13:58 TSY [id number] {REASO N FOR PROCED URE: Headac he [...] was dictat ed remote ly by a [facility] Radiol ogist in [place], [place]. Electr onical ly Signed By: MEET BROWN MD , Date/T blayne: 14:29 INTERFACE Sc Only - [facility] Rad [address] [place], [address], 05/28/2025 15:32:34 05/28/[address], cervi radha spine , w/o contr ast [facility] [address] [facility] [place]. [address] ------ ---NAM E----- ---- NUMBER SEX AGE ADMIT DISC. XRAY# F/C TYPE ZEKE BOOTHE EN P [id number] F 54 5 [id number] GIL E/R DATE OF : 1970 M/R# [id number] PH#: [id number] LOCATI ON: TRANSC RIBED: 14:31 CT C-[place] [address] COMPLE MICHELLE: 13:58 TSY [id number] {REASO N FOR PROCED URE: Neck Pain [...] was dictat ed remote ly by a [facility] Radiol ogist in [place], [place]. Electr onical ly Signed By: MEET BROWN MD , Date/T blayne: 14:31 INTERFACE [facility] Rad [address] [place], [address], 05/28/2025 15:35:09 05/28/[address], thora cic spine , w/o contr ast [facility] [address] [place]. [address] ------ ---NAM E----- ---- NUMBER SEX AGE ADMIT DISC. XRAY# F/C TYPE RICE TL EN P [id number] F 54 5 [id number] GIL E/R DATE OF : 1970 M/R# [id number] PH#: [id number] LOCATI ON: TRANSC RIBED: 14:35 CT THORAC IC SPINE W/O CONTRA [id number] COMPLE MICHELLE: 13:58 TSY [id number] {REASO N FOR PROCED URE: Pain PHYSIC [...] was dictat ed remote ly by a [facility] Radiol ogist in [place]. Electr onical ly Signed By: MEET BROWN MD , Date/T blayne: 14:35 INTERFACE Nh Only - [facility] Rad [address] [place], [address], 05/28/2025 15:38:22 06/05/20 25 06/03/2024 CT, angio gram, chest , w/ contr ast No observ ation record ed. [email or web address] Not Available 2024 16:05:59 06/07/20 25 06/07/2025 XR, chest , [address] [address] Teleph one [phone] Name: TL WHITE [id number] am Date: 2024 Age: 54Phys ician: MD MIKEY, HELENA A : 1970Ex aminat ion: XR CHEST [...] g. Electr onical ly signed in [employer] cr[employer]ra by: Vickey ryan MD on:05/16 3:01 PM cc: Page PAGE 1 of KUN LEWIS 1 MIKE Sc Only - Sc Radiology [address] [facility], [place], [address], 06/08/2025 14:33:15 07/27/20 25 07/27/2025 CT, abdom en + pelvi s, w/ contr ast [facility] [address] [place] [address] Name: TL WHITE Age: 54 : 1970 Exam Date: 2024 ACCESS ION: [id number] BLAISE CALDERA MD: MILE HO[place]ORTH EXAMIN ATION: CT ABDOME N/PELV IS WITH CONTRA ST COMPAR RAS: CT abdome n pelvis withou t contra st INDICA TION: patien t Hx: nausea /vomit ing and abd pain since Thursday . order Hx: diffus e abd pain Histor y of Surger y: append ix and gallbl adder remove d. TECHNI QUE: CT of the abdome n and pelvis was perfor med with IV contra st admini strati on. 100ml of Omnipa que 350 was inject ed throug h the lac withou t eviden ce of advers e reacti on. Automa michelle exposu re contro l was used for dose optimi zation on this exam. CTDIvo l in mGy: 39.12 DLP in mGy-cm : 1887.8 . FINDIN GS: Lower Chest: The visual ized lung bases are clear. The visual ized medias tinum demons trates no large perica rdial effusi on. The heart is normal in size. Hepato biliar y: The liver is normal in size and contou r hepati c steato sis. No focal lesion .. The pancre as is negati ve. The gallbl adder is surgic ally absent . There is a stable small cystic struct ure in the area of the gallbl adder fossa/ biliar y region which could repres ent a seroma or choled ochal cyst. There is no biliar y duct dilata tion. Genito urinar y: The adrena l glands are normal . The kidney s enhanc e symmet ricall y. Exophy tic right lower pole kidney cyst, measur ing approx imatel y 1.1 cm in [facility] er. There is no hydron ephros is. The urinar y bladde r is under disten ded. No intral uminal stones or masses are identi fied. The reprod uctive organs are unrema rkable , uterus remove d.. There are multip le pelvic phlebo liths. Gastro intest inal: There is no bowel obstru ction or bowel wall thicke teofilo. The append ix is absent . There is mild coloni c divert iculos is withou t eviden ce of divert iculit is. Perito neum: There is no free intrap eriton eal air or fluid. Lympha tics: The spleen is normal in size. There is no retrop eriton eal or mesent jaden lympha denopa thy. There is no pelvic or inguin al lympha denopa thy. Vascul ar: The abdomi nal aorta is normal in calibe r. Mild promin ence of pelvic vascul ar simila r to compar ras imagin g. Muscul oskele stephani: Redemo nstrat ed small anteri or wall soft tissue nodule s and dystro phic manager laundry ior soft tissue calcif icatio ns, contin ue to favor sequel ae of subcut aneous inject ion. No acute osseou s abnorm ality or destru ctive bone lesion is identi fied. IMPRES KHALIDA: There are no acute findin gs to explai n the patien t's sympto ms. The attend ing radiol ogist has review ed the images and agrees with the conten t of this report . /ML:ml D: 2024 20:47 T: 2024 20:47 Final Report Dictat ed: 20:47 Scrogg ins Mayuri FREEDMAN RES Signed : 20:47 Tye hernandez MD, Isabella EGAN Sc Only - [facility] [address] [place] [address], [address], 07/27/2025 21:51:11 08/01/2008/01/2025 imagi ng/di elias tic resul t No observ ation record ed. [email or web address] [facility] - Radiology [address] [place], [address], 08/01/2025 17:37:33 08/03/20 25 08/03/2025 D abdom en 1 view [facility] [address] [place] [address] Name: TL WHITE Age: 54 : 1970 Exam Date: 2024 ACCESS ION: [id number] BLAISE CALDERA MD: BRIDGET BOWLES EXAM: Abdome n, 1 view HISTOR Y: Lower abdomi nal pain, RUQ pain for 2 days. Histor y of append ectomy , gallbl adder remova l, hernia repair abd pain COMPAR RAS: FINDIN GS: The abdomi nal gas patter n is unrema rkable . Air is visibl e in the colon. There are no abnorm ally dilate d small bowel loops. There is no eviden ce of bowel obstru ction on this supine radiog raph. Mild degene rative change s are seen in the visual ized spine. Soft tissue calcif icatio ns overli e the pannus . Clips are seen in the right upper quadra nt. IMPRES KHALIDA: 1. Nonobs tructi ve bowel gas patter n. /RH:rh D: 2024 20:05 T: 2024 20:05 Final Report Dictat ed: 20:05 Juwan Metzger MD Signed : 20:05 Juwan Metzger MD INTERFACE Sc Only - [facility] [address] [place] [address], [address], 08/03/2025 21:09:24 Result Notes Documentation Provider Name and Address Organization Details Recorded Time Xr, Chest, 2 View : [address] [address] Name: LETI WHITE Date: 06/07/2025 Age: 54Physician: [...] 1 of NUMPAGES 1 Carrol Villagomez MD [address] [place] [address], [phone], [facility] 06/08/2025 12:48:14 Problems Name Problem SNOMED Code Status Onset Date Resolution Date Notes Provider Name and Address Organization Details Recorded Time Migraine 57817534 Active 2020 Yolandeher [facility] 4 17:00:48 Hypertens marquis disorder 52678698 Active 2020 [facility] 4 17:00:48 Atypical squamous cells of undetermi tiffanie significa nce on cervical Papanicol aou smear 906263453 Active 2020 Yolande [facility] 4 17:00:48 Second degree uterine prolapse 9572177 Active 2022 Yolandeher [facility] 4 17:00:48 Chest pain 37049371 Active 2022 KYA PRITCHARD NP [address] [place] [address], [address] , [facility] 5 16:44:36 Preinfarc tion syndrome 5388538 Active 2022 Yolande [facility] 4 17:00:48 Coronary arteriosc lerosis 76008012 Active 2023 KYA PRITCHARD NP [address] [facility], [place] [facility] [place], [address] , [facility] 5 17:10:30 Essential hypertens ion 38971639 Active 2023 KYA PRITCHARD NP [address] [facility], [place], [address] , [facility] 5 16:44:21 Hyperchol esterolem ia 74521635 Active 2023 Audrey Celestino lam, [facility] 4 16:47:54 Abdominal pain 80366298 Active 2023 Eren Oswald PA-C [address] [facility], [facility] [place], [address] , [facility] 4 13:05:40 Thoracic radiculop athy 83113385 Active 2023 Kimi Mathis APRN, ASSISTANT CHIEF TRAIN DISPATCHER [address] [facility], [facility] [place], [address] , [facility] 4 14:46:37 Cervical radiculop athy 56603075 Active 2023 Kimi Mathis APRN, ASSISTANT CHIEF TRAIN DISPATCHER [address] [facility], [facility] [place], [address] , [facility] 4 14:46:47 Lumbar spondylos is 940750591 Active 2023 Pauly Vizcaino MD [address] , [facility] [place], [address] , [facility] 5 14:49:06 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 32539710250 9106 Active 2023 following with endocrino logsid Vizcaino MD [address] , [place], [address] , [facility] 5 14:52:00 Spinal arachnoid cyst 742013402 Active 2023 Pauly Vizcaino MD [address] , [place], [address] , [facility] 5 14:51:11 Morbid obesity 724154759 Active 2024 Pauly Vizcaino MD [address] , [place], [address] , [facility] 5 14:50:22 Gastropar esis syndrome 174410711 Active 2024 Pauly Vizcaino MD [address] , [place], [address] , [facility] 5 14:53:47 Gastroeso phageal reflux disease 190821853 Active 2024 Pauly Vizcaino MD [address] , [place], [address] , [facility] 5 14:53:56 Dyspnea 717553171 Active 2024 Valeria Baugh APRN, ASSISTANT CHIEF TRAIN DISPATCHER [address] , [place], [address] , [facility] 5 12:14:35 Pain of left shoulder region Active 2024 Pauly Vizcaino MD [address] , [place], [address] , [facility] 5 15:11:16 Bilateral cramp of muscle of lower limbs 99162840718 236410 Active 2024 Pauly Vizcaino MD [address] , [place], [address] , [facility] 5 15:12:21 Fibromyal chuck 724731607 Active 2024 Pauly Vizcaino MD [address] , [place], [address] , [facility] 5 15:19:57 Recurrent major depressio n in remission 36322237 Active 2024 Pauly Vizcaino MD [address] [facility], [place], [address] , [facility] 5 15:24:34 Primary insomnia 8770848 Active 2024 Pauly Vizcaino MD [address] , [place], [address] , [facility] 5 15:25:40 Swelling of lower limb 510167108 Active 2024 Pauly Vizcaino MD [address] , [place], [address] , [facility] 5 16:16:03 Palpitati ons 12430708 [facility] 5 16:53:19 Dyspnea on exertion 07264446 Active 2024 KYA PRITCHARD NP [address] [facility], [place], [address] , [facility] 5 17:10:27 Hyperlipi demia 15189640 Active 2024 KYA PRITCHARD NP [address] [facility], [facility] [place], [address] , [facility] 5 16:44:26 Edema of lower extremity 912168085 Active 2024 KYA PRITCHARD NP [address] [facility], [place], [address] , [facility] 5 17:34:12 Persisten t depressiv e disorder 4955279927 Active 2024 Melissa Macias PA-C [address] [facility], [place], [address] , [facility] 5 11:28:54 Restless legs syndrome 17521677 Active 2024 Melissa Macias PA-C [address] , [place], [address] , [facility] 5 11:29:39 Atypical chest pain 767854524 Active 2024 Melissa Macias PA-C [address] [place] [address], [address] , [facility] 5 12:45:48 Anemia 506183550 Active 2024 Valeria Baugh APRN, ASSISTANT CHIEF TRAIN DISPATCHER [address] [place] [address], [address] , [facility] 5 12:10:45 Acute kidney injury 36134177 Active 2024 Valeria Baugh APRN, ASSISTANT CHIEF TRAIN DISPATCHER [address] [place] [address], [address] , [facility] 5 12:13:44 Mycosis 7221484 Active 2024 Valeria Baugh APRN, ASSISTANT CHIEF TRAIN DISPATCHER [address] [place] [address], [address] , [facility] 5 16:49:11 Obstructi ve sleep apnea syndrome 29125510 Active 2024 Sindhu Pizarro [facility] 5 16:01:58 Acute urinary tract infection 295928301 Active 2024 Lawrence Grigsby [facility] 5 15:43:42 Alpha-1-a ntitrypsi n deficienc y 38504211 Active 2024 Sindhu Pizarro [facility] 5 16:23:34 Supravent ricular tachycard ia 9692845 Active 2024 KYA PRITCHARD, JOSE G [address] [place] [address], [address] , [facility] 5 16:44:22 Abdominal discomfor t 95547504 Active 2024 Kimi giron [facility] 5 10:28:59 Screening colonosco py Active 2024 Kimi giron [facility] 5 10:34:05 Notes:Some problems listed i n Documents: #[id number], #[id number], #[id number] could not be added to this patient's [...] Name and Address Organization Details Recorded Time 6940318 fentanyl medicatio n headache Not available Not available 10/14/20232012 4337 RxNorm React ion: Heada syeda; Nause a; Vomit ing; Comme nt: React ion Date: 23 Aug 2013 Annot ation s: JUVENCIO SIEGEL 10Dec 2012 9:08P M Per pt repor t.; ; Brenda Natarajan [facility] 5 14:41:09 7033113 prochlorp erazine medicatio n anxiety Not available Not available 05/13/20242017 8704 RxNorm Yoli Sauceda [facility] 5 11:23:17 3835739 sumatript an medicatio n itching Not available Not available 05/13/20242017 38745 RxNorm Brenda Natarajan [facility] 5 14:41:28 5134989 metoclopr amide Not available other Not available Not available 05/13/20242022 6915 RxNorm [facility] 5 14:41:18 8613339 diphenhyd ramine hydrochlo ride medicatio n anxiety rash Not available Not available Not available 05/13/20242017 1362 RxNorm Yoli Sauceda [facility] 5 11:23:17 3760557 Duragesic medicatio n headache Not available Not available 06/22/20242012 25715 8 RxNorm React ion: Heada syeda; Nause a; Vomit ing; Comme nt: React ion Date: 23 Aug 2013 Annot ation s: PHILLY STINSON, JUVENCIO 2012 9:08P M Per pt repor t.; ; [facility] 5 14:41:05 5745654 Compazine medicatio n other Not available Not available 11/02/202433183 6 RxNorm irrit abili ty Brenda Natarajan [facility] 5 14:41:50 4348410 Imdur medicatio n anxiety insomnia Not available Not available [facility] 05/30/2025 71402 2 RxNorm Melissa Macias PA-C [address] [place] [address], [address] [place] [address] 5 10:19:27 440817 Biaxin medicatio n nausea Not available Not available 10/12/2023200672 9 RxNorm React ion: Nause a; Not Available [facility] 4 21:45:38 378474 sumatript an succinate medicatio n Not available Not available Not available 10/12/20232006 05814 RxNorm React ion: Short ness of breat h; Arrhy thmia ; Not Available [facility] 4 21:45:39 041122 ciproflox acin hydrochlo ride medicatio n Not available Not available Not available 10/12/20232006 72849 RxNorm React ion: Synco pe; Short ness of breat h; Brenda Natarajan [facility] 5 14:40:56 292376 Demerol medicatio n Not available Not available Not available 10/12/20232008 96556 1 RxNorm Comme nt: Annot ation s: GRUND Y, BRAND ON 2008 3:38P M NAUSE A; ; [facility] 5 14:40:59 015003 morphine sulfate medicatio n Not available Not available Not available 10/12/20232008 39301 RxNorm Comme nt: Annot ation s: GRUND Y, BRAND ON 2008 3:39P M NAUSE A; ; [facility] 5 14:41:15 294014 hydromorp basim hydrochlo ride medicatio n Not available Not available Not available 10/12/20232008 97362 7 RxNorm Comme nt: Annot ation s: GRUND Y, BRAND ON 2008 3:39P M NAUSE A; ; [facility] 5 14:41:12 Medications Name Sig Start Date Stop Date Status Note LastModified by Organization Details LastModified Time new customer packet NEW CUSTOMER PACKET 11/02 completed Not Available Not Available Not Available quetiapin e 25 mg tablet 1-2 tabs at bedtime 2024 active Not Available Not Available Not Avai lable celecoxib 200 mg capsule TAKE ONE CAPSULE BY MOUTH TWICE DAILY 05/30 completed Not Available Not Available Not Available cyclobenz aprine 10 mg tablet TAKE ONE TABLET THREE TIMES DAILY NEEDED 11/02 completed Not Available Not Available Not Available fluconazo le 100 mg tablet TAKE ONE TABLET ONCE 06/15 completed Not Available Not Available Not Available atorvasta tin 40 mg tablet Take 1 tablet every day by oral route. 07/04 completed Not Available Not Available Not Available methocarb kaden 500 mg tablet TAKE ONE TABLET FOUR TIMES DAILY NEEDED for muscle pain 05/30 completed Not Available Not Available Not Available doxepin 50 mg capsule TAKE ONE CAPSULE AT BEDTIME 12/01 completed Not Available Not Available Not Available atorvasta tin 80 mg tablet Take 1 tablet every day by oral route. 05/30 completed caused muscle cramps Not Available Not Available Not Available venlafaxi ne ER 37.5 mg capsule,e xtended release 24 hr TAKE ONE CAPSULE BY MOUTH EVERY DAY FOR ONE WEEK; THEN take TWO capsules EVERY DAY thereaft er 05/02 completed Not Available Not Available Not Available carvedilo l 6.25 mg tablet Take 1 tablet every day by oral route. 03/28 completed Not Available Not Available Not Available venlafaxi ne ER 75 mg capsule,e xtended release 24 hr take 1 capsule daily along with the 150mg for a total of 225mg daily active Not Available Not Available No t Available carvedilo l 12.5 mg tablet TAKE ONE TABLET TWICE DAILY active Not Available Not Available No t Available clindamyc in HCl 300 mg capsule TAKE ONE CAPSULE EVERY 6 HOURS UNTIL GONE 05/30 completed Not Available Not Available Not Available citalopra m 40 mg tablet TAKE ONE TABLET BY MOUTH DAILY 05/30 completed Not Available Not Available Not Available loperamid e 2 mg capsule TAKE ONE CAPSULE FOUR TIMES DAILY NEEDED FOR DIARRHEA 08/03 completed Not Available Not Available Not Available tizanidin e 4 mg tablet TAKE ONE TABLET BY MOUTH EVERY 6 HOURS NEEDED FOR ANXIETY 2024 active Not Available Not Available Not Avai lable fluconazo le 150 mg tablet take 1 tablet now and may repeat in 3 days if needed 05/30 completed Not Available Not Available Not Available metoprolo l succinate ER 50 mg tablet,ex tended release 24 hr TAKE ONE TABLET BY MOUTH DAILY 03/10 completed Not Available Not Available Not Available valacyclo vir 1 gram tablet TAKE ONE TABLET BY MOUTH EVERY 8 HOURS 06/15 completed Not Available Not Available Not Available hydrocodo ne 5 mg-acetam inophen 325 mg tablet TAKE 1 TABLET BY MOUTH EVERY 6 HOURS NEEDED FOR PAIN active Not Available Not Available No t Available sucralfat e 1 gram tablet TAKE ONE TABLET BY MOUTH FOUR TIMES DAILY before meals and nightly 06/15 completed Not Available Not Available Not Available metoprolo l succinate ER 200 mg tablet,ex tended release 24 hr TAKE ONE TABLET BY MOUTH DAILY 05/17 completed Not Available Not Available Not Available ondansetr on HCl 4 mg tablet TAKE ONE TABLET BY MOUTH EVERY 6 HOURS NEEDED FOR NAUSEA AND VOMITING active Not Available Not Available No t Available metoprolo l succinate ER 100 mg tablet,ex tended release 24 hr 200 mg by oral route. 05/09 completed Not Available Not Available Not Available doxepin 75 mg capsule TAKE ONE CAPSULE BY MOUTH DAILY 03/28 completed Not Available Not Available Not Available Lantus U-100 Insulin 100 unit/mL subcutane ous solution inject 80 units in the evening 11/02 completed Not Available Not Available Not Available clindamyc in HCl 150 mg capsule TAKE TWO CAPSULES EVERY 8 HOURS UNTIL GONE 07/04 completed Not Available Not Available Not Available venlafaxi ne ER 150 mg capsule,e xtended release 24 hr take 1 capsule by mouth daily along with 75mg for total of 225mg daily active Not Available Not Available No t Available promethaz ine 6.25 mg-codein e 10 mg/5 mL syrup take 5mL every 4-6 hours as needed for cough 06/15 completed Not Available Not Available Not Available clopidogr el 75 mg tablet TAKE ONE TABLET BY MOUTH DAILY 06/21 completed Not Available Not Available Not Available ciproflox acin 250 mg tablet TAKE ONE TABLET BY MOUTH TWICE DAILY FOR FIVE DAYS 12/01 completed Not Available Not Available Not Available amlodipin e 5 mg tablet TAKE ONE TABLET BY MOUTH TWICE DAILY active Not Available Not Available No t Available ciproflox acin 500 mg tablet TAKE ONE TABLET BY MOUTH EVERY TWELVE HOURS FOR SEVEN DAYS 05/30 completed Not Available Not Available Not Available sulfameth oxazole 800 mg-trimet hoprim 160 mg tablet TAKE ONE TABLET BY MOUTH EVERY TWELVE HOURS UNTIL GONE 03/10 completed Not Available Not Available Not Available hydrocodo ne 10 mg-acetam inophen 325 mg tablet TAKE ONE TABLET BY MOUTH EVERY 8 HOURS NEEDED for acute pain 03/10 completed Not Available Not Available Not Available aspirin 81 mg tablet,de layed release Take 1 tablet every day by oral route. 11/02 completed Not Available Not Available Not Available tramadol 50 mg tablet TAKE ONE TABLET BY MOUTH FOUR TIMES DAILY active Not Available Not Available No t Available amitripty line 50 mg tablet TAKE TWO TABLETS AT BEDTIME 11/02 completed Not Available Not Available Not Available isosorbid e mononitra te ER 60 mg tablet,ex tended release 24 hr TAKE ONE TABLET EVERY MORNING 05/30 completed Not Available Not Available Not Available alprazola m 0.5 mg tablet TAKE ONE TABLET TWICE DAILY NEEDED FOR ANXIETY 11/02 completed Not Available Not Available Not Available citalopra m 20 mg tablet take 1 tablet daily with 40mg to equal 60mg daily 06/15 completed Not Available Not Available Not Available ropinirol e 0.25 mg tablet TAKE 1 TO 3 TABLETS BY MOUTH AT BEDTIME active Not Available Not Available No t Available dicyclomi ne 20 mg tablet TAKE ONE TABLET BY MOUTH EVERY 6 HOURS NEEDED (abdomin al cramping ) active Not Available Not Available No t Available Humalog U-100 Insulin 100 unit/mL subcutane ous solution infuse up to 150 units per day via insulin pump active Not Available Not Available No t Available hydrocodo ne 7.5 mg-acetam inophen 325 mg tablet TAKE ONE TABLET BY MOUTH EVERY 6 HOURS for 3 days NEEDED for pain 08/03 completed Not Available Not Available Not Available cephalexi n 500 mg capsule TAKE ONE CAPSULE FOUR TIMES DAILY UNTIL GONE 08/03 completed Not Available Not Available Not Available pantopraz ole 40 mg tablet,de layed release TAKE ONE TABLET BY MOUTH DAILY active Not Available Not Available No t Available lidocaine 5 % topical patch apply 1 patch daily. leave patch on for up to 12 hours and leave off for 12 hours before applying new patch active Not Available Not Available No t Available lidocaine HCl 2 % mucosal solution RINSE AND GARGLE 10 ML BY MOUTH OR THROAT EVERY 6 HOURS FOR UP TO 5 DAYS NEEDED FOR HEARTBUR N active Not Available Not Available No t Available hydroxyzi ne HCl 25 mg tablet TAKE 1 TO 2 TABLETS AT BEDTIME active Not Available Not Available No t Available albuterol sulfate HFA 90 mcg/actua tion aerosol inhaler inhale one puff every 4 hours as needed for wheezing active Not Available Not Available No t Available norethind abdiel (contrace ptive) 0.35 mg tablet TAKE ONE TABLET DAILY 06/15 completed Not Available Not Available Not Available ondansetr on 4 mg disintegr ating tablet dissolve 1 tablet on the tongue every 6 hours as needed for nausea/v omiting active Not Available Not Available No t Available cefdinir 300 mg capsule TAKE ONE CAPSULE EVERY TWELVE HOURS UNTIL GONE 03/10 completed Not Available Not Available Not Available fluticaso ne propionat e 50 mcg/actua tion nasal spray,idalia pension use 1 spray in each nostril twice a day 06/15 completed Not Available Not Available Not Available Microlet Lancet use as directed to test blood sugars 3 times daily active Not Available Not Available No t Available diazepam 5 mg tablet take 1 tablet by mouth 30 minutes prior to mri as needed, as directed 11/02 completed Not Available Not Available Not Available metoclopr amide 10 mg tablet TAKE ONE TABLET BY MOUTH EVERY 6 HOURS active Not Available Not Available No t Available amoxicill in 875 mg-potass ium clavulana te 125 mg tablet Take 1 tablet every 12 hours by oral route for 7 days. 06/27 completed Not Available Not Available Not Available Novolog FlexPen U-100 Insulin aspart 100 unit/mL (3 mL) subcutane ous 3 times a day by sub-q route. 05/09 completed Not Available Not Available Not Available rosuvasta tin 20 mg tablet TAKE ONE TABLET BY MOUTH EVERY DAY active Not Available Not Available No t Available Crestor 10 mg tablet Take 1 tablet every day by oral route. 07/04 completed Not Available Not Available Not Available nitrofura ntoin monohydra te/macroc rystals 100 mg capsule TAKE ONE TABLET BY MOUTH TWICE DAILY UNTIL GONE 06/15 completed Not Available Not Available Not Available pregabali n 50 mg capsule TAKE ONE CAPSULE BY MOUTH THREE TIMES DAILY for neuralgi a 03/10 completed Not Available Not Available Not Available ranolazin e ER 500 mg tablet,ex tended release,1 2 hr TAKE ONE TABLET TWICE DAILY 06/15 completed Not Available Not Available Not Available Lantus Solostar U-100 Insulin 100 unit/mL (3 mL) subcutane ous pen Inject 80 units by sub-q route. 06/15 completed Not Available Not Available Not Available Humalog KwikPen (U-100) Insulin 100 unit/mL subcutane ous Inject 3 times a day by sub-q route. 09/15 completed Not Available Not Available Not Available sodium,po tassium,m ag sulfates 17.5 gram-3.13 gram-1.6 gram oral soln Take 354 mL by oral route as directed for 1 day. 04/28 completed Not Available Not Available Not Available TRUEplus Insulin 1 mL 31 gauge x 5/16 syringe use with insulin up to four times daily and as needed as directed 06/15 completed Not Available Not Available Not Available Aimovig Autoinjec tor 70 mg/mL subcutane ous auto-inje ctor inject 70 mg subcutan eously once monthly as directed 08/03 completed Not Available Not Available Not Available Plenvu 140 gram-9 gram-5.2 gram powder packs Take 1 package by oral route as directed for 1 day. 2024 active GI/Kocha r pt given verbal and written instruct ions for bowel prep patient verbaliz ed understa nding and no further question s at this time Not Available Not Available Not Available Aimovig Autoinjec tor 140 mg/mL subcutane ous auto-inje ctor inject 140mg subcutan eous once monthly active Not Available Not Available No t Available Ubrelvy 100 mg tablet 05/09 completed Not Available Not Available Not Available Dexcom G7 Software Support Representative USE PER MANUFACT URER DIRECTIO NS active Not Available Not Available No t Available Dexcom G7 Sensor device CHANGE SENSOR EVERY 10 DAYS PER MANUFACT URER 2024 active Not Available Not Available Not Avai lable Omnipod 5 G6-G7 Pods (Gen 5) subcutane ous cartridge change pod every 2 days active Not Available Not Available No t Available Contour Plus Test Strip use as directed to test blood sugars 3 times daily active Not Available Not Available No t Available Contour Plus Blue Meter use as directed to test blood sugars 3 times daily active Not Available Not Available No t Available Vitals Date Recorded Body height Body mass index (BMI) Body weight Heart rate Systolic And Diastolic Provider Name and Address Organization Details Last Updated DateTime 06/07/2025 170.18 cm 42.4 kg/m2 415882.5 3 g 92 /min 126/64 mm[Hg] [facility] 06/07/2025 15:10:01 Social History Question Answer Notes LastModified by [...] Do You Have A Medical Power Of Insulation Installer? Yes [email or web address] Information not available 06/13/2024 What Was The Date Of Your Most Recent Tobacco Screening? 07/04/2025 [email or web address] Information not available 07/04/2025 What Is Your Relationship Status? [email or web address] Information not available 06/13/2024 Has Tobacco Cessation Counseling Been Provided? Yes [email or web address] Information not available 03/28/2025 On What Date Was Tobacco Cessation Counseling Provided? 03/28/2025 [email or web address] Information not available 03/28/2025 Sex: Unknown Functional [...] available 2023 15:08:01 Medical History Condition Response High Blood Pressure Y COPD N Depression Y Anxiety Disorder N Arthritis Y Cancer Y Stroke N Fibromyalgia Y Kidney Disease N Attention-deficit Hyperactivity Disorder N Thyroid Problems N Anemia Y Diabetes Y Bleeding Disorder N Hyperlipidemia Y Asthma Y Seizures N Heart Disease Y Osteoporosis N Gynecological History Statement/Question Response Abnormal Pap [...] recombinant, quadrivalent, PF 1 [facility]15 Influenza, recombinant, quadrivalent, PF 0 completed [facility] 14:40:15 zoster recombinant 1 completed [facility]24 14:40:15 zoster recombinant 1 completed Brenda Natarajan [facility] 11/02/2024 14:40:15 COVID-19, mRNA, LNP-S, PF, 100 mcg/0.5mL dose or 50 mcg/0.25mL dose 1 completed Brenda Natarajan [facility] 11/02/2024 14:40:15 COVID-19, mRNA, LNP-S, PF, 100 mcg/0.5mL dose or 50 mcg/0.25mL dose 1 completed [facility] 11/02/2024 14:40:15 COVID-19, mRNA, LNP-S, PF, 100 mcg/0.5mL dose or 50 mcg/0.25mL dose 1 completed Bredna Natarajan [facility] 11/02/2024 14:40:15 pneumococcal polysaccharide PPV[facility] 11/02/2024 14:40:15 influenza, unspecified formulation 4 completed [facility] 11/02/2024 14:40:15 influenza, unspecified formulation 4 completed [facility] 11/02/2024 14:40:15 influenza, unspecified formulation 3 completed [facility] 11/02/2024 14:40:15 Tdap 7 completed [facility] 11/02/2024 14:40:15 Influenza, split virus, trivalent, preservative 1 completed Brenda Natarajan [facility] 11/02/2024 14:40:15 Influenza, split virus, quadrivalent, PF 7 [facility] 11/02/2024 14:40:15 Past Encounters Encounter ID Performer Location Encounter Start Date Encounter Closed Date Diagnosis/Indication Diagnosis SNOMED-CT Code Diagnosis ICD10 Code Diagnosis IMO Codes Diagnosis Note [id number] Melissa Macias PA-C [facility] ([address] [address] 05/30/2025 09:44:32 05/30/2025 14:35:57 Primary insomnia 9844048 F51.01 96118 Dyspnea on exertion 6084 5006 R06.09 390648 Fibromyalgia 224755038 M 79.7 26033 Pain of le ft shoulder region 0366786640 M25.512 [id number] Migraine 50713524 G43.90 9 Obstructiv e sleep apnea syndrome 78773132 G47.33 [id number] Carrol Villagomez MD [facility] ([place]) [address] [facility] [place] [address] 06/05/2025 15:41:18 06/05/2025 16:01:50 Dyspnea 850313717 R06.02 R06.00 39873 [id number] Uncertain as to the etiology of her [...] results of the CT scan performed at [facility] this past spring. Addendum, CTA of the chest from 06/03/2024 at [facility] showed unremarkab le pulmonary findings. She has some scattered linear atelectasi s, no consolidat ion, nodule or fluid. No mediastina l or hilar adenopathy . There was significan t coronary artery disease noted on that study. Obstructiv e sleep apnea syndrome 38685368 G47.33 62444 She has a longstandi ng history of sleep apnea diagnosed about 20 years ago down in [place] at an unknown institutio n. Is not on any treatment at this time. I do suspect she does have significan t sleep apnea that is contributi ng to her symptomato logy and we will get her worked up with a split-nigh t sleep study and trial PAP if positive. [id number] Delia Hall PA-C [address] [facility] ([place]) [address] [facility],[address] [place] [address] 06/07/2025 14:55:39 06/07/2025 17:49:29 Acute kidney injury 41732827 N17.9 [id number] Health Concerns Section Related Observation LastModified by Organization Anum [email or web address] LastModified Time None Recorded Concern Status LastModified by Organization Details LastModified Time None Recorded Payers Encounter Date Sequence Insurance Name Policy Number Policy Garcia Covered Member ID Garcia Member ID Guarantor Name 06/07/2025 2 [place] [employer] Leti White [id number] Leti White 06/07/2025 1 [facility] (MEDICARE REPLACEMENT/A DVANTAGE - PPO) [id number] Leti White [id number] Leti White Notes Date Note Type Note Provider Name and Address Organization Details Recorded Time 06/07/2025 text/html ROS as noted in the HPI [...] in the hospital in April 2025 at [facility] for cellulitis and received IV vancomycin and [...] was on dialysis prior to his . RODGER GarciaC [address] [place] [address], [id number], [facility] 06/07/2025 16:14:26 OBGyn Episode No OBEpisode recorded.
--- OUTSIDE RECORDS SUMMARY | 2025-08-11 13:53 | XMS_ITS | Continuity of Care Document ---
Author Organization [facility], [address] Cardiology (MD) Address [address] [place] [address] Care Team Providers Care Glazier Structural Glass Name Role Phone DRAKE FARRIS Gear Repairer PAULY VIZCAINO Primary Care Provider [phone] PAULY VIZCAINO Referring Provider [phone] DELIA HALL Boot Liner Maker Assessment No assessment recorded. Plan of Treatment Reminders Order Date Submit Date Provider Last Modified By Organization Details Last Modified Time Details Appointments Estab judy Stoner nt 15.ES T 2024 01:30P M Kya Pritchard Not available Not available Not available Estab judy Brunnere nt 15.ES T 2025 02:30P M Delia [...] Not available Pulm Funct ion Metha choli ne.UT O 2025 02:00P M [facility] Not available Not available Not available Estab judy Stoner nt 15.ES T 2025 11:15A M Dr. Carrol Villagomez Not available Not available Not available New Patie nt Visit 10.NE W 2025 11:50A M Dr. Shital Mendes Not available Not available Not available Estab judy Stoner nt 15.ES T 2025 01:30P M Tiffanie Painting Not available Not available Not available Estab judy Stoner nt 15.ES T 2025 03:00P M Kya Pritchard Not available Not available Not available Lab None recor ded. Referral None recor ded. Procedures None recor ded. Surgeries None recor ded. Imaging None recor ded. Medication Orders Crest or 20 mg table t 2024 025 [place], [place], [address] [place], [address], 06/28/2025 18:18:25 Patient TargetsNo targets recorded. Patient InstructionsNo instructions recorded. Reason for Referral None Reported. Results Created Date Observation Date Name Description Value Unit Range Abnormal Flag Note LastModifiedBy Organization Detail LastModifiedTime 06/07/2006/07/2025 CBC CBC Not Available [facility] [address] [place] [address], [id number], 06/07/2025 19:14:12 06/07/20 25 06/07/2025 CBC WBC 5.9 K/uL 3.8-11 .2 Not Available [facility] [address] [place] [address], 31403, 06/07/2025 19:14:12 06/07/20 25 06/07/2025 CBC RBC 4.18 M/uL 3.92-5 .10 Not Available [facility] [address] [place] [address], 45126, 06/07/2025 19:14:12 06/07/20 25 06/07/2025 CBC HGB 11.5 g/dL 11.8-1 5.3 low Not Available [facility] [address] [place] [address], 79070, 06/07/2025 19:14:12 06/07/20 25 06/07/2025 CBC HCT 35.2 % 36.5-4 4.8 low Not Available [facility] [address] [place] [address], 51604, 06/07/2025 19:14:12 06/07/2006/07/2025 CBC MCV 84.2 fL 80.0-9 9.0 Not Available [facility] [address] [place] [address], 61086, 06/07/2025 19:14:12 06/07/20 25 06/07/2025 CBC MCH 27.5 pg 25.5-3 3.6 Not Available [facility] [address] [place] [address], 98408, 06/07/2025 19:14:12 06/07/2006/07/2025 CBC MCHC 32.7 g/dL 32.0-3 6.0 Not Available [facility] [address] [place] [address], 36042, 06/07/2025 19:14:12 06/07/2006/07/2025 CBC RDW-SD 39.6 fL 35.1 - 46.3 Not Available [facility] [address] [place] [address], 28194, 06/07/2025 19:14:12 06/07/2006/07/2025 CBC plt 272 K/uL 130-40 0 Not Available [facility] [address] [place] [address], 06121, 06/07/2025 19:14:12 06/07/2006/07/2025 CBC MPV 9.9 fL 9.3-12 .8 Not Available [facility] [address] [place] [address], 70373, 06/07/2025 19:14:12 06/07/20 25 06/07/2025 urina lysis , compl ete urinalysis, complete LOW LEVEL S OF HEMOG LOBIN IN ABSEN CE OF HEMAT URIA MAY NOT BE CLINI MARCOS SIGNI FICAN T. Not Available [facility] [address] [place] [address], 81718, 06/07/2025 19:21:12 06/07/20 25 06/07/2025 urina lysis , compl ete color DARK YELLOW Dipst ick may be inacc urate due to the color of the urine Not Available [facility] [address] [place] [address], 13421, 06/07/2025 19:21:12 06/07/20 25 06/07/2025 urina lysis , compl ete clarity CLEAR Not Available [facility] [address] [place] [address], 72277, 06/07/2025 19:21:12 06/07/20 25 06/07/2025 urina lysis , compl ete pH 7.0 5.0-7. 5 Not Available [facility] [address] [place] [address], 36734, 06/07/2025 19:21:12 06/07/20 25 06/07/2025 urina lysis , compl ete specific gravity 1.010 1.000- 1.030 Not Available [facility] [address] [place] [address], 18038, 06/07/2025 19:21:12 06/07/20 25 06/07/2025 urina lysis , compl ete blood NEGATI VE negati ve Not Available [facility] [address] [place] [address], 77244, 06/07/2025 19:21:12 06/07/20 25 06/07/2025 urina lysis , compl ete bilirubin NEGATI VE negati ve Not Available [facility] [address] [place] [address], 26341, 06/07/2025 19:21:12 06/07/20 25 06/07/2025 urina lysis , compl ete urobilinogen 1.0 0.2-1. 0 Not Available [facility] [address] [place] [address], 46668, 06/07/2025 19:21:12 06/07/20 25 06/07/2025 urina lysis , compl ete ketone NEGATI VE negati ve Not Available [facility] [address] [place] [address], 56927, 06/07/2025 19:21:12 06/07/20 25 06/07/2025 urina lysis , compl ete glucose NEGATI VE negati ve Not Available [facility] [address] [place] [address], 24024, 06/07/2025 19:21:12 06/07/20 25 06/07/2025 urina lysis , compl ete protein NEGATI VE negati ve Not Available [facility] [address] [place] [address], 12127, 06/07/2025 19:21:12 06/07/20 25 06/07/2025 urina lysis , compl ete nitrite POSITI VE negati ve abnormal Not Available [facility] [address] [place] [address], 57032, 06/07/2025 19:21:12 06/07/20 25 06/07/2025 urina lysis , compl ete leukocytes 1+ negati ve abnormal Not Available [facility] [address] [place] [address], 17255, 06/07/2025 19:21:12 06/07/20 25 06/07/2025 urina lysis , compl ete review * Micro scopi c resul ts revie wed by [facility]. Not Available [facility] [address] [place] [address], 54479, 06/07/2025 19:21:12 06/07/20 25 06/07/2025 urina lysis , compl ete RBC 0-2 0-2/hp f Not Available [facility] [address] [place] [address], 81775, 06/07/2025 19:21:12 06/07/20 25 06/07/2025 urina lysis , compl ete WBC 0-5 0-5/hp f Not Available [facility] [address] [place] [address], 19215, 06/07/2025 19:21:12 06/07/20 25 06/07/2025 urina lysis , compl ete WBC. CONFI Cell count s confi rmed by Techn ologi st. Not Available [facility] [address] [place] [address], 50621, 06/07/2025 19:21:12 06/07/20 25 06/07/2025 urina lysis , compl ete squamous epithelial 3-5 0-10/h pf Not Available [facility] [address] [place] [address], 62280, 06/07/2025 19:21:12 06/07/20 25 06/07/2025 urina lysis , compl ete bacteria NONE SEEN none Not Available [facility] [address] [place] [address], 07854, 06/07/2025 19:21:12 06/07/20 25 06/07/2025 urina lysis , compl ete hyaline cast 0-2 0-2/lp f Not Available [facility] [address] [place] [address], 18667, 06/07/2025 19:21:12 06/07/20 25 06/07/2025 renal funct ion panel , serum renal function panel Not Available [facility] [address] [place] [address], 17693, 06/07/2025 19:42:24 06/07/20 25 06/07/2025 renal funct ion panel , serum sodium 140 mmol/ L 136-14 6 Not Available [facility] [address] [place] [address], 35676, 06/07/2025 19:42:24 06/07/20 25 06/07/2025 renal funct ion panel , serum potassium 4.0 mmol/ L 3.5-5. 1 Not Available [facility] [address] [place] [address], 59487, 06/07/2025 19:42:24 06/07/20 25 06/07/2025 renal funct ion panel , serum chloride 106 mmol/ L 98-110 Not Available [facility] [address] [place] [address], 01548, 06/07/2025 19:42:24 06/07/20 25 06/07/2025 renal funct ion panel , serum CO2 25 mEq/L 20-32 Not Available [facility] [address] [place] [address], 34634, 06/07/2025 19:42:24 06/07/20 25 06/07/2025 renal funct ion panel , serum anion gap 13 mmol/ L 10-22 Not Available [facility] [address] [place] [address], 87982, 06/07/2025 19:42:24 06/07/20 25 06/07/2025 renal funct ion panel , serum glucose 188 mg/dL 70-100 high Not Available [facility] [address] [place] [address], 83901, 06/07/2025 19:42:24 06/07/20 25 06/07/2025 renal funct ion panel , serum calcium 9.5 mg/dL 8.4-10 .4 Not Available [facility] [address] [place] [address], 74826, 06/07/2025 19:42:24 06/07/20 25 06/07/2025 renal funct ion panel , serum albumin 4.1 g/dL 3.5-5. 3 Not Available [facility] [address] [place] [address], 68150, 06/07/2025 19:42:24 06/07/2006/07/2025 renal funct ion panel , serum phosphorus 3.1 mg/dL 2.7-4. 5 Not Available [facility] [address] [place] [address], 05108, 06/07/2025 19:42:24 06/07/20 25 06/07/2025 renal funct ion panel , serum BUN 15 mg/dL 7-21 Not Available [facility] [address] [place] [address], 07178, 06/07/2025 19:42:24 06/07/2006/07/2025 renal funct ion panel , serum creatinine 0.9 mg/dL 0.7-1. 3 Not Available [facility] [address] [place] [address], 38913, 06/07/2025 19:42:24 06/07/2006/07/2025 renal funct ion panel , serum CKD-epi GFR 76 eGFR was calcu lated using the 2020 CKD-E PI equat ion. (Gem Technician andree Kidne y Disea se has an eGFR less than 60 mL/mi n/1.7 3mm for a perio d of three month s or more. ) This calcu latio n has not been valid ated for patie nt ages <18 or >90 years old. Not Available [facility] [address] [place] [address], 85859, 06/07/2025 19:42:24 06/07/2006/08/2025 micro album in, urine microalbumin ,random panel Not Available [facility] [address] [place] [address], 26415, 06/08/2025 10:13:00 06/07/20 25 06/08/2025 micro album in, urine microalbumin random 0.5 mg/dL Not Available [facility] [address] [place] [address], 79357, 06/08/2025 10:13:00 06/07/2006/08/2025 micro album in, urine creatinine, urine random 37 mg/dL Refer ence range not estab lishe d for other than 24 hour colle ction . Not Available [facility] [address] [place] [address], 09043, 06/08/2025 10:13:00 06/07/2006/08/2025 micro album in, urine [...] in or Creat inine .) Not Available [facility] [address] [place] [address], 91087, 06/08/2025 10:13:00 06/07/2006/08/2025 C4 (comp lemen t), serum or plasm a complement C4 44 mg/dL 12-38 high Not Available [facility] [address] [place] [address], 98467, 06/08/2025 14:11:19 06/07/2006/08/2025 C3 (comp lemen t), serum or plasm a complement C3 201 mg/dL 82-167 high Not Available [facility] [address] [place] [address], 01904, 06/08/2025 14:11:20 06/07/20 25 06/08/2025 ADALBERTO (anti nucle ar antib odies ) scree n, serum ADALBERTO screen NEGATI VE negati ve Perfo rmed by Bio-R ad enzym e immun oassa y Not Available [facility] [address] [place] [address], 21258, 06/08/2025 15:48:52 06/07/2006/09/2025 cultu re + sensi tivit y, urine [...] resis tant inter preta tion Not Available [facility] [address] [place] [address], 10864, 06/09/2025 09:46:55 06/07/2006/09/2025 immun ofixa tion, serum immunofixati on, serum No monoc lonal ity detec michelle. Not Available [facility] [address] [place] [address], 18815, 06/09/2025 15:12:43 06/07/20 25 06/09/2025 immun ofixa tion, serum IgG quantitative 1147 mg/dL 586-16 02 Not Available [facility] [address] [place] [address], 52140, 06/09/2025 15:12:43 06/07/20 25 06/09/2025 immun ofixa tion, serum IgA quantitative 393 mg/dL 87-352 high Not Available [facility] [address] [place] [address], 53698, 06/09/2025 15:12:43 06/07/20 25 06/09/2025 immun ofixa tion, serum IgM quantitative 80 mg/dL 26-217 Not Available [facility] [address] [place] [address], 81736, 06/09/2025 15:12:43 06/07/2006/12/2025 anca panel , serum anca, complete Not Available [facility] [address] [place] [address], 04706, 06/12/2025 20:10:54 06/07/2006/12/2025 anca panel , serum myeloperoxid ase Ab <0.2 units 0.0-0. 9 Not Available [facility] [address] [place] [address], 88954, 06/12/2025 20:10:54 06/07/2006/12/2025 anca panel , serum proteinase-3 Ab, anca <0.2 units 0.0-0. 9 Not Available [facility] [address] [place] [address], 14067, 06/12/2025 20:10:54 06/07/2006/12/2025 anca panel , serum C-anca titer <1:20 titer neg:<1 :20 Not Available [facility] [address] [place] [address], 05375, 06/12/2025 20:10:54 06/07/2006/12/2025 anca panel , serum [...] ng of posit marquis sera with both UT-3 and MPO-A NCA enzym e immun oassa ys. As many as 5% serum sampl es are posit marquis only by EIA. Ref. AM J Clin Patho l 1999; 111:5 07-51 3. Not Available [facility] [address] [place] [address], 49015, 06/12/2025 20:10:54 06/07/2006/12/2025 anca panel , serum atypical P anca titer <1:20 titer neg:<1 :20 The atypi radha pANCA patte rn has been obser elva in a signi fican t perce ntage of patie nts with ulcer ative colit is, prima ry scler osing chola ngiti s and autoi mmune hepat itis. Not Available [facility] [address] [place] [address], 38695, 06/12/2025 20:10:54 06/07/2006/07/2025 UE urine eosinophils NEGATI VE Not Available [facility] - [facility] [address] [facility], [place], [address], 06/07/2025 23:40:52 06/07/2006/08/2025 cultu re + sensi tivit y, urine urine culture and sens. PREL IM URINE GRAM NEGAT MARQUIS RODS DATE/ TIME: 06/08 10:17 >100, 000 CFU/m L Not Available [facility] [address] [place] [address], 07853, 06/08/2025 11:18:58 06/18/2006/20/2025 C URINE urine culture (new) abnormal Print Date/ Time: 2024 10:46 CDT Patie nt: ZEKE, JANINA EEN P Micro biolo gy - Uroge [...] furth er work- up is neede d. UT ELIMI NARY REPOR TS Preli minar y Repor t [] Verif ied Date/ Time: 2024 14:19 CDT Moder ate proba ble conta minan ts inclu din,00 0 cfu/m l Gram Negat marquis Rods Cultu re reinc ubate d Not Available [facility] - [facility] [address] [place] [address], 19018, 06/20/2025 11:46:50 06/18/2006/18/2025 UACS color Pauline Not Available [facility] [address] [place] [address], 97024, 06/18/2025 17:21:53 06/18/2006/18/2025 UACS appearance Clear Not Avail able [facility] - [facility] [address] [place] [address], 83524, 06/18/2025 17:21:53 06/18/2006/18/2025 UACS specific gravity 1.012 1.003- 1.030 Not Available [facility] [address] [place] [address], 41337, 06/18/2025 17:21:53 06/18/2006/18/2025 UACS pH urine 6.0 4.5-7. 5 Not Available [facility] [address] [place] [address], 14937, 06/18/2025 17:21:53 06/18/2006/18/2025 UACS protein 30 abnormal Not Availa ble [facility] - [facility] [address] [place] [address], 94604, 06/18/2025 17:21:53 06/18/2006/18/2025 UACS urine glucose Negati ve Not Available [facility] [address], 74957, 06/18/2025 17:21:53 06/18/2006/18/2025 UACS ketones Negati ve Not Available [facility] [address] [place] [address], 07789, 06/18/2025 17:21:53 06/18/2006/18/2025 UACS urine bilirubin Negati ve Not Available [facility] [address], 27257, 06/18/2025 17:21:53 06/18/2006/18/2025 UACS urine HGB Small abnormal Not Avai lable [facility] - [facility] [address] [place] [address], 60080, 06/18/2025 17:21:53 06/18/20 25 06/18/2025 UACS nitrite Positi ve abnormal Not Available [facility] [address] [place] [address], 21652, 06/18/2025 17:21:53 06/18/2006/18/2025 UACS leukocyte esterase Negati ve Not Available [facility] [address] [place] [address], 27023, 06/18/2025 17:21:53 06/18/2006/18/2025 UACS urobilinogen >=4.0 abnormal Not A vailable [facility] - [facility] [address] [place] [address], 47222, 06/18/2025 17:21:53 06/18/2006/18/2025 UACS urine WBCs 2 /hpf 0-4 Not Avail able [facility] - [facility] [address] [place] [address], 77703, 06/18/2025 17:21:53 06/18/2006/18/2025 UACS urine RBCs 0 /hpf 0-2 Not Avail able [facility] - [facility] [address] [place] [address], 07574, 06/18/2025 17:21:53 06/18/2006/18/2025 UACS squamous epithelial cells 6 /hpf 0-5 high Not Available [facility] [address] [place] [address], 91199, 06/18/2025 17:21:53 06/18/2006/18/2025 UACS bacteria Few abnormal Not Avail able [facility] - [facility] [address] [place] [address], 03782, 06/18/2025 17:21:53 06/18/2006/18/2025 UACS color Pauline Not Available [facility] [address] [place] [address], 48859, 06/18/2025 17:21:52 06/18/20 25 06/18/2025 UACS appearance Clear Not Avail able [facility] - [facility] [address] [place] [address], 46947, 06/18/2025 17:21:52 06/18/2006/18/2025 UACS specific gravity 1.012 1.003- 1.030 Not Available [facility] [address] [place] [address], 90628, 06/18/2025 17:21:52 06/18/2006/18/2025 UACS pH urine 6.0 4.5-7. 5 Not Available [facility] [address] [place] [address], 88882, 06/18/2025 17:21:52 06/18/2006/18/2025 UACS protein 30 abnormal Not Availa ble [facility] - [facility] [address] [place] [address], 25044, 06/18/2025 17:21:52 06/18/2006/18/2025 UACS urine glucose Negati ve Not Available [facility] [address] [place] [address], 74822, 06/18/2025 17:21:52 06/18/2006/18/2025 UACS ketones Negati ve Not Available [facility] [address] [place] [address], 60184, 06/18/2025 17:21:52 06/18/2006/18/2025 UACS urine bilirubin Negati ve Not Available [facility] [address] [place] [address], 57834, 06/18/2025 17:21:52 06/18/2006/18/2025 UACS urine HGB Small abnormal Not Avai lable [facility] - [facility] [address], 32993, 06/18/2025 17:21:52 06/18/20 25 06/18/2025 UACS nitrite Positi ve abnormal Not Available [facility] [address] [place] [address], 77277, 06/18/2025 17:21:52 06/18/2006/18/2025 UACS leukocyte esterase Negati ve Not Available [facility] [address] [place] [address], 67008, 06/18/2025 17:21:52 06/18/2006/18/2025 UACS urobilinogen >=4.0 abnormal Not A vailable [facility] - [facility] [address] [place] [address], 63566, 06/18/2025 17:21:52 06/18/2006/18/2025 UACS urine WBCs 2 /hpf 0-4 Not Avail able [facility] - [facility] [address] [place] [address], 34213, 06/18/2025 17:21:52 06/18/2006/18/2025 UACS squamous epithelial cells 6 /hpf 0-5 high Not Available [facility] - [facility] [address] [place] [address], 29616, 06/18/2025 17:21:52 06/18/2006/18/2025 UACS bacteria Few abnormal Not Avail able [facility] - [facility] [address] [place] [address], 84492, 06/18/2025 17:21:52 06/18/20 25 06/18/2025 EGFR eGFR [...] se(CK D) is prese nt. Not Available [facility] [address] [place] [address], 99428, 06/18/2025 17:15:19 06/18/2006/18/2025 LPSE lipase,serum 18 u/L 11-82 Not Dalila ilable [facility] - [facility] [address] [place] [address], 54280, 06/18/2025 17:15:18 06/18/20 25 06/18/2025 CMP sodium 139 mmol/ L 136-14 5 Not Available [facility] [address] [place] [address], 64245, 06/18/2025 17:15:16 06/18/20 25 06/18/2025 CMP potassium 4.1 mmol/ L 3.5-5. 1 Not Available [facility] [address] [place] [address], 76348, 06/18/2025 17:15:16 06/18/20 25 06/18/2025 CMP chloride 106 mmol/ L 98-107 Not Available [facility] [address] [place] [address], 71484, 06/18/2025 17:15:16 06/18/2006/18/2025 CMP CO2 24 mmol/ L 21-31 Not Available [facility] [address] [place] [address], 94485, 06/18/2025 17:15:16 06/18/20 25 06/18/2025 CMP BUN 9 mg/dL 7-25 Not Available [facility] [address] [place] [address], 13478, 06/18/2025 17:15:16 06/18/20 25 06/18/2025 CMP creatinine 0.8 mg/dL 0.6-1. 3 Not Available [facility] [address], 55958, 06/18/2025 17:15:16 06/18/20 25 06/18/2025 CMP glucose 210 mg/dL 70-105 high Not Availabl e [facility] - [facility] [address] [place] [address], 36377, 06/18/2025 17:15:16 06/18/20 25 06/18/2025 CMP calcium 9.3 mg/dL 8.6-10 .3 Not Available [facility] [address] [place] [address], 68872, 06/18/2025 17:15:16 06/18/20 25 06/18/2025 CMP total protein 7.2 gm/dL 6.0-8. 3 Not Available [facility] [address] [place] [address], 58258, 06/18/2025 17:15:16 06/18/2006/18/2025 CMP albumin 4.0 gm/dL 3.5-5. 7 Not Available [facility] [address] [place] [address], 33699, 06/18/2025 17:15:16 06/18/20 25 06/18/2025 CMP bilirubin (total) 0.8 mg/dL 0.3-1. 0 Not Available [facility] [address] [place] [address], 62399, 06/18/2025 17:15:16 06/18/2006/18/2025 CMP AST 24 IU/L 13-39 Not Available [facility] [address] [place] [address], 79339, 06/18/2025 17:15:16 06/18/20 25 06/18/2025 CMP alk phos 134 IU/L 34-104 high Not Availab le [facility] - [address], 68773, 06/18/2025 17:15:16 06/18/20 25 06/18/2025 CMP ALT 15 IU/L 7-52 Not Available [facility] - [address], 36969, 06/18/2025 17:15:16 06/18/20 25 06/18/2025 CMP anion gap 9 8-16 Anion gap calcu lated using formu la: Na - (Cl + CO2) Measu red total CO2 is used in place of HCO3 Not Available [facility] - [address], 36085, 06/18/2025 17:15:16 06/18/20 25 06/18/2025 DBIL bilirubin (direct) 0.1 mg/dL 0.0-0. 2 Not Available [facility] - [address], 09609, 06/18/2025 17:15:14 06/18/20 25 06/18/2025 DIFF neutrophils 64 % 47-67 Not Avai lable [facility] - [address], 29099, 06/18/2025 16:50:30 06/18/20 25 06/18/2025 DIFF lymphocytes 23 % 25-45 low Not Avai lable [facility] - [address], 98821, 06/18/2025 16:50:30 06/18/20 25 06/18/2025 DIFF monocytes 8 % 1-9 Not Availa ble [facility] - [address], 53718, 06/18/2025 16:50:30 06/18/20 25 06/18/2025 DIFF eosinophils 3 % 0-6 Not Avai lable [facility] - [address], 00996, 06/18/2025 16:50:30 06/18/20 25 06/18/2025 DIFF basophils 1 % 0-2 Not Availa ble [facility] - [address], 80063, 06/18/2025 16:50:30 06/18/20 25 06/18/2025 DIFF absolute neutrophils 5.0 K/cum m 1.8-6. 5 Not Available [facility] - [address], 16585, 06/18/2025 16:50:30 06/18/20 25 06/18/2025 DIFF absolute lymphocytes 1.8 K/cum m 0.9-3. 0 Not Available [facility] - [address], 20292, 06/18/2025 16:50:30 06/18/20 25 06/18/2025 DIFF absolute monocytes 0.6 K/cum m 0.2-0. 8 Not Available [facility] Only - [address], [address], 06/18/2025 16:50:30 06/18/20 25 06/18/2025 DIFF absolute eosinophils 0.3 K/cum m 0.0-0. 4 Not Available [facility] Only - [address], [address], 06/18/2025 16:50:30 06/18/20 25 06/18/2025 DIFF absolute basophils 0.1 K/cum m 0.0-0. 2 Not Available [facility] Only - [address], [address], 06/18/2025 16:50:30 06/18/20 25 06/18/2025 CBC W/ AUTO DIFF WBC 7.8 K/cum m 3.4-9. 4 Not Available [facility] Only - [address], [address], 06/18/2025 16:50:28 06/18/20 25 06/18/2025 CBC W/ AUTO DIFF RBC 4.23 M/cum m 4.20-5 .40 Not Available Az Only - [facility] [address] [place] [address], [address], 06/18/2025 16:50:28 06/18/20 25 06/18/2025 CBC W/ AUTO DIFF hemoglobin 11.5 gm/dL 12.0-1 6.0 low Not Available [facility] Only - [facility] [address] [place] [address], [address], 06/18/2025 16:50:28 06/18/20 25 06/18/2025 CBC W/ AUTO DIFF hematocrit 35 % 37-47 low Not Available [facility] Only - [address], [address], 06/18/2025 16:50:28 06/18/20 25 06/18/2025 CBC W/ AUTO DIFF MCV 83 81-94 Not Available [facility] Only - [address], [address], 06/18/2025 16:50:28 06/18/20 25 06/18/2025 CBC W/ AUTO DIFF MCH 27.1 pg 27.5-3 3.2 low Not Available [facility] - [address], [address], 06/18/2025 16:50:28 06/18/20 25 06/18/2025 CBC W/ AUTO DIFF MCHC 32.6 g/dL 31.0-3 6.0 Not Available [facility] Only - [facility] [address] [place] [address], [address], 06/18/2025 16:50:28 06/18/20 25 06/18/2025 CBC W/ AUTO DIFF RDW 14.1 % 11.7-1 5.5 Not Available [facility] Only - [address], [address], 06/18/2025 16:50:28 06/18/20 25 06/18/2025 CBC W/ AUTO DIFF platelets 278 K/cum m 140-41 0 Not Available [facility] [address] [place] [address], [address], 06/18/2025 16:50:28 06/18/20 25 06/18/2025 CBC W/ AUTO DIFF MPV 7.9 mL Not Available [facility] [address] [place] [address], [address], 06/18/2025 16:50:28 06/18/20 25 06/19/2025 C URINE urine culture (new) abnormal Print Date/ Time: 2024 14:19 CDT Patie nt: JANINA WHITE P Micro biolo gy - Uroge nital Legen d: c=Cor recte d, F=Res ult Comme nt, S=Idalia cepti ble, I=Int ermed iate, R=Res istan t, N/A=N ot Appli cable PROCE DURE: Urine Cultu re [] ACCES LIA: [id number] SOURC E: Urine BODY SITE: COLLE CTED DATE/ TIME: 2024 15:21 CDT RECEI ELVA DATE/ TIME: 2024 19:13 CDT START DATE/ TIME: 2024 19:13 CDT FREE TEXT SOURC E: UT ELIMI NARY REPOR TS Preli minar y Repor t [] Verif ied Date/ Time: 2024 14:19 CDT Moder ate proba ble conta minan ts inclu din,00 0 cfu/m l Gram Negat marquis Rods Cultu re reinc ubate d Not Available [facility] [address] [place] [address], [address], 06/19/2025 15:19:31 06/28/20 25 06/30/2025 alpha -1-an titry psin (aat) , QN, serum A-1 antitrypsin phenotype Not Available [facility] [address], [address], 06/30/2025 17:12:05 06/28/20 25 06/30/2025 alpha -1-an titry psin (aat) , QN, serum odrri-4-fzlq trypsin 140 mg/dL 101-18 7 Not Available [facility] - [facility] [address] [place] [address], [address], 06/30/2025 17:12:05 06/28/20 25 06/30/2025 alpha -1-an titry psin [...] to confi rm pheno type. Not Available [facility] - [facility] [address] [place] [address], [address], 06/30/2025 17:12:05 06/05/20 25 06/03/2024 CT, angio gram, chest , w/ contr ast No observ ation record ed. [email or web address] Not Available 2024 16:05:59 06/07/20 25 06/07/2025 XR, chest , [address] [address] Teleph one [phone] Name: TL WHITE [id number] am Date: 2024 Age: 54Phys ician: MD MIKEY, LEOLIANG A : 1970Ex aminat ion: XR CHEST [...] 3:01 PM cc: Page PAGE 1 of [facility] 1 MIKE Sc Only - [facility] [address] [place] [address], [address], 06/08/2025 14:33:15 07/27/20 25 07/27/2025 CT, abdom en + pelvi s, w/ contr ast [facility] [address] [place] [address] Name: TL WHITE P Age: 54 : 1970 Exam Date: 2024 ACCESS ION: [id number] ALISAI WERNER MD: MILE HOLLINGSWORTH EXAMIN ATION: CT ABDOME [...] ing approx imatel y 1.1 cm in [facility] st diamet er. There is no hydron ephros is. [...] soft tissue nodule s and dystro phic dog catcher ior soft tissue calcif icatio ns, contin ue to favor sequel ae of subcut aneous inject ion. No acute osseou s abnorm ality or destru ctive bone lesion is identi fied. IMPRES LIA: There are no acute findin gs to explai n the patien t's sympto ms. The attend ing radiol ogist has review ed the images and agrees with the conten t of this report . /ML:ml D: 2024 20:47 T: 2024 20:47 Final Report Dictat ed: 20:47 Scrogg ins Mayuri FREEDMAN RES Signed : 20:47 Tye hernandez MD, Isabella EGAN [facility] [address] [place] [address], [address], 07/27/2025 21:51:11 08/01/20 25 08/01/2025 feri ng/kojo griffin tic resul t No observ ation record ed. [email or web address] [facility] - Radiology [address] [place], [address], 08/01/2025 17:37:33 08/03/20 25 08/03/2025 D abdom en 1 view [facility] [address] [place] [address] Name: TL WHITE Age: 54 : 1970 Exam Date: 2024 ACCESS ION: [id number] ORDERSheron CALDERA MD: BRIDGET BOWLES EXAM: Abdome n, [...] in the right upper quadra nt. IMPRES LIA: 1. Nonobs tructi ve bowel gas patter n. /RH:rh D: 2024 20:05 T: 2024 20:05 Final Report Dictat ed: 20:05 Juwan Metzger MD Signed : 20:05 Juwan Metzger MD INTERFACE Sc Only - [facility] [address] [place] [address], [address], 08/03/2025 21:09:24 Result Notes None recorded. Problems Name Problem SNOMED Code Status Onset Date Resolution Date Notes Provider Name and Address Organization Details Recorded Time Migraine 72828627 Active 2020 Yolande Riley [facility] 4 17:00:48 Hypertens marquis disorder 40644158 Active 2020 Yolandeher Riley [facility] 4 17:00:48 Atypical squamous cells of undetermi tiffanie significa nce on cervical Papanicol aou smear 733903477 Active 2020 Yolande Riley [facility] 4 17:00:48 Second degree uterine prolapse 3826375 Active 2022 Yolandeher Riley [facility] 4 17:00:48 Chest pain 86111938 Active 2022 KYA PRITCHARD NP [address] [place], [address] , [facility] 5 16:44:36 Preinfarc tion syndrome 5277786 Active 2022 Yolande Riley [facility] 4 17:00:48 Coronary arteriosc lerosis 97266691 Active 2023 KYA PRITCHARD, JOSE G [address] [facility], [place], [address] , [facility] 5 17:10:30 Essential hypertens ion 09572149 Active 2023 KYA PRITCHARD, JOSE G [address] , [place], [address] , [facility] 5 16:44:21 Hyperchol esterolem ia 08413272 Active 2023 [facility] 4 16:47:54 Abdominal pain 47686524 Active 2023 Eren Oswald PA-C [address] , [place], [address] , [facility] 4 13:05:40 Thoracic radiculop athy 96719099 Active 2023 Kimi Mahtis APRN, [employer] [address] [facility], [place], [address] , [facility] 4 14:46:37 Cervical radiculop athy 66172920 Active 2023 Kimi Mathis APRN, [employer] [address] [facility], [place], [address] , [facility] 4 14:46:47 Lumbar spondylos is 773799922 Active 2023 Pauly Vizcaino MD [address] , [place], [address] , [facility] 5 14:49:06 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 48840133840 9106 Active 2023 following with endocrino maggy Vizcaino MD [address], [place], [address] , [facility] 5 14:52:00 Spinal arachnoid cyst 200505564 Active 2023 Pauly Vizcaino MD [address] [facility], [place], [address] , [facility] 5 14:51:11 Morbid obesity 073648710 Active 2024 Pauly Vizcaino MD [address] [facility], [place], [address] , [facility] 5 14:50:22 Gastropar esis syndrome 019914651 Active 2024 Pauly Vizcaino MD [address] [facility], [place], [address] , [facility] 5 14:53:47 Gastroeso phageal reflux disease 111948550 Active 2024 Pauly Vizcaino MD [address] [facility], [place], [address] , [facility] 5 14:53:56 Dyspnea 519776798 Active 2024 Valeria Baugh APRN, [employer] [address] [facility], [place], [address] , [facility] 5 12:14:35 Pain of left shoulder region Active 2024 Pauly Vizcaino MD [address] [facility], [place], [address] , [facility] 5 15:11:16 Bilateral cramp of muscle of lower limbs 05704151857 411147 Active 2024 Pauly Vizcaino MD [address] [facility], [place], [address] , [facility] 5 15:12:21 Fibromyal chuck 221250791 Active 2024 Pauly Vizcaino MD [address] [facility], [place], [address] , [facility] 5 15:19:57 Recurrent major depressio n in remission 25376853 Active 2024 Pauly Vizcaino MD [address] , [place], [address] , [facility] 5 15:24:34 Primary insomnia 7257407 Active 2024 Pauly Vizcaino MD [address] , [place], [address] , [facility] 5 15:25:40 Swelling of lower limb 158124373 Active 2024 Pauly Vizcaino MD [address] [facility], [place], [address] , [facility] 5 16:16:03 Palpitati ons 76138898 Active 2024 [facility] 5 16:53:19 Dyspnea on exertion 58352697 Active 2024 KYA PRITCHARD NP [address] [facility], [place] [facility] [place], [address] , [facility] 5 17:10:27 Hyperlipi demia 90326324 Active 2024 KYA PRITCHARD NP [address] [facility], [place], [address] , [facility] 5 16:44:26 Edema of lower extremity 513989487 Active 2024 KYA PRITCHARD NP [address] [facility], [place], [address] , [facility] 5 17:34:12 Persisten t depressiv e disorder 3578611818 Active 2024 Melissa Macias PA-C [address] [facility], [place], [address] , [facility] 5 11:28:54 Restless legs syndrome 59199438 Active 2024 Melissa Macias PA-C [address] [facility], [place], [address] , [facility] 5 11:29:39 Atypical chest pain 750460689 Active 2024 Melissa Macias PA-C [address] [place] [address], [address] , [facility] 5 12:45:48 Anemia 388260583 Active 2024 Valeria Baugh APRN, [employer] [address] [place] [address], [address] , [facility] 5 12:10:45 Acute kidney injury 00371691 Active 2024 Valeria Baugh APRN, [employer] [address] [place] [address], [address] , [facility] 5 12:13:44 Mycosis 2263417 Active 2024 Valeria Baugh APRN, [employer] [address] [place] [address], [address] , [facility] 5 16:49:11 Obstructi ve sleep apnea syndrome 81279128 Active 2024 Sindhu Pizarro [facility] 5 16:01:58 Acute urinary tract infection 676131542 Active 2024 Lawrence Grigsby [facility] 5 15:43:42 Alpha-1-a ntitrypsi n deficienc y 20650333 Active 2024 Sindhu Pizarro [facility] 5 16:23:34 Supravent ricular tachycard ia 4612433 Active 2024 KYA PRITCHARD, JOSE G [address] [place] [address], [address] , [facility] 5 16:44:22 Abdominal discomfor t 95965197 Active 2024 Kimi giron [facility] 5 10:28:59 Screening colonosco py Active 2024 Kimi Al giron [facility] 5 10:34:05 Notes:Some problems listed i n Documents: #[id number], #[id number], #[id number] could not be added to this patient's [...] Name and Address Organization Details Recorded Time 0094101 fentanyl medicatio n headache Not available Not available 10/14/20232012 4337 RxNorm React ion: Heada syeda; Nause a; Vomit ing; Comme nt: React ion Date: 23 Aug 2013 Annot ation s: JUVENCIO SIEGEL 10De2012 9:08P M Per pt repor t.; ; Brenda Natarajan [facility] 5 14:41:09 4551690 prochlorp erazine medicatio n anxiety Not available Not available 05/13/20242017 8704 RxNorm Yoli Sauceda [facility] 5 11:23:17 7410373 sumatript an medicatio n itching Not available Not available 05/13/20242017 07023 RxNorm Brenda Natarajan [facility] 5 14:41:28 6531346 metoclopr amide Not available other Not available Not available 05/13/20242022 6915 RxNorm Brenda Deraser [facility] 5 14:41:18 1900280 diphenhyd ramine hydrochlo ride medicatio n anxiety rash Not available Not available Not available 05/13/20242017 1362 RxNorm Yoli Sauceda [facility] 5 11:23:17 5009153 Duragesic medicatio n headache Not available Not available 06/22/20242012 41502 8 RxNorm React ion: Heada syeda; Nause a; Vomit ing; Comme nt: React ion Date: 23 Aug 2013 Annot ation s: PRATH ER, JUVENCIO 2012 9:08P M Per pt repor t.; ; Brenda Natarajan [facility] 5 14:41:05 4004552 Compazine medicatio n other Not available Not available 11/02/2024 29367 6 RxNorm irrit abili ty Brenda Natarajan [facility] 5 14:41:50 5614952 Imdur medicatio n anxiety insomnia Not available Not available [facility] 05/30/2025 06443 2 RxNorm Melissa Macias PA-C [address] [place] [address], [address] 5 10:19:27 393406 Biaxin medicatio n nausea Not available Not available 10/12/20232006 93872 9 RxNorm React ion: Nause a; Not Available [facility] 4 21:45:38 430193 sumatript an succinate medicatio n Not available Not available Not available 10/12/20232006 60891 RxNorm React ion: Short ness of breat h; Arrhy thmia ; Not Available [facility] 4 21:45:39 382988 ciproflox acin hydrochlo ride medicatio n Not available Not available Not available 10/12/20232006 91826 RxNorm React ion: Synco pe; Short ness of breat h; Brendaaraseli Natarajan [facility] 5 14:40:56 427154 Demerol medicatio n Not available Not available Not available 10/12/20232008 99251 1 RxNorm Comme nt: Annot ation s: GRUND Y, BRAND ON 2008 3:38P M NAUSE A; ; [facility] 5 14:40:59 824542 morphine sulfate medicatio n Not available Not available Not available 10/12/20232008 46654 RxNorm Comme nt: Annot ation s: GRUND Y, BRAND ON 2008 3:39P M NAUSE A; ; [facility] 5 14:41:15 005999 hydromorp basim hydrochlo ride medicatio n Not available Not available Not available 10/12/20232008 06120 7 RxNorm Comme nt: Annot ation s: GRUND Y, BRAND ON 2008 3:39P M NAUSE A; ; [facility] 5 14:41:12 Medications Name Sig Start [...] Available Not Available Not Available Dexcom G7 Aligning Checker USE PER MANUFACT URER DIRECTIO NS active [...] t Available Vitals Date Recorded Body height Heart rate Oxygen saturation Body mass index (BMI) Body weight Systolic And Diastolic Provider Name and Address Organization Details Last Updated DateTime 5 170.18 cm 76 /min 97 % 42.9 kg/m2 141517. 31 g 114/62 mm[Hg] [facility] 16:04:15 Social History Question Answer Notes LastModified by [...] Do You Have A Medical Power Of Roaster Supervisor? Yes [email or web address] Information not available 06/13/2024 What Was The Date Of Your Most Recent Tobacco Screening? 07/04/2025 [email or web address] Information not available 07/04/2025 What Is Your Relationship Status? [email or web address] Information not available 06/13/2024 Has Tobacco Cessation Counseling Been Provided? Yes [email or web address] Information not available 03/28/2025 On What Date Was Tobacco Cessation Counseling Provided? 03/28/2025 [email or web address] Information not available 03/28/2025 Sex: Unknown Functional [...] recombinant, quadrivalent, PF 1 completed Brenda Natarajan [facility] 11/02/2024 14:40:15 Influenza, recombinant, quadrivalent, PF 0 completed [facility]/02/2024 14:40:15 zoster recombinant 1 completed [facility] 11/02/2024 14:40:15 zoster recombinant 1 completed Brendaaraseli Natarajan [facility] 11/02/2024 14:40:15 COVID-19, mRNA, LNP-S, PF, 100 mcg/0.5mL dose or 50 mcg/0.25mL dose 1 completed Brenda Natarajan [facility] 11/02/2024 14:40:15 COVID-19, mRNA, LNP-S, PF, 100 mcg/0.5mL dose or 50 mcg/0.25mL dose 1 completed Brenda Natarajan [facility] 11/02/2024 14:40:15 COVID-19, mRNA, LNP-S, PF, 100 mcg/0.5mL dose or 50 mcg/0.25mL dose 1 completed Brenda Natarajan [facility] 11/02/2024 14:40:15 pneumococcal polysaccharide PPV23 1 completed Brenda Natarajan [facility] 11/02/2024 14:40:15 influenza, unspecified formulation [facility] 11/02/2024 14:40:15 influenza, unspecified formulation 4 [facility] 11/02/2024 14:40:15 influenza, unspecified formulation 3 [facility] 11/02/2024 14:40:15 Tdap 7 completed [facility] 11/02/2024 14:40:15 Influenza, split virus, trivalent, preservative 1 completed Brenda Natarajan [facility] 11/02/2024 14:40:15 Influenza, split virus, quadrivalent, PF 7 completed [place] Natarajan [facility] 11/02/2024 14:40:15 Past Encounters Encounter ID Performer Location Encounter Start Date Encounter Closed Date Diagnosis/Indication Diagnosis SNOMED-CT Code Diagnosis ICD10 Code Diagnosis IMO Codes Diagnosis Note [id number] Melissa Macias PA-C [facility] ([address] [address] 05/30/2025 09:44:32 05/30/2025 14:35:57 Primary insomnia 2355179 F51.01 04435 Dyspnea on exertion 6084 5006 R06.09 493663 Fibromyalgia 188580375 M 79.7 20321 Pain of le ft shoulder region 1566736241 M25.512 86092441 Migraine 86079903 G43.90 9 Obstructiv e sleep apnea syndrome 40031995 G47.33 1437093 [id number] Carrol Villagomez MD [facility] 2nd Pulm (MD) [address] [facility],2[address] [place] [address] 06/05/2025 15:41:18 06/05/2025 16:01:50 Dyspnea 489672601 R06.02 R06.00 17760 [id number] Uncertain as to the etiology of her [...] results of the CT scan performed at [facility] this past spring. Addendum, CTA of the chest from 06/03/2024 at [facility] showed unremarkab le pulmonary findings. She has some scattered linear atelectasi s, no consolidat ion, nodule or fluid. No mediastina l or hilar adenopathy . There was significan t coronary artery disease noted on that study. Obstructiv e sleep apnea syndrome 41837834 G47.33 41580 She has a longstandi ng history of sleep apnea diagnosed about 20 years ago down in [place] at an unknown institutio n. Is not on any treatment at this time. I do suspect she does have significan t sleep apnea that is contributi ng to her symptomato logy and we will get her worked up with a split-nigh t sleep study and trial PAP if positive. [id number] [facility] (MD) [address] [facility],[address] [place] [address] 06/07/2025 14:55:39 06/07/2025 17:49:29 Acute kidney injury 68049849 N17.9 4958215 [id number] KYA PRITCHARD NP 800 3rd Cardiolog y (MD) [address] [place] [address] 06/28/2025 15:53:04 06/28/2025 16:23:37 Coronary arteriosclerosis 73356135 I25.10 795531 Supraventr icular tachycardia 3363440 I47.10 50197 Hyperlipidemia 17624922 E78.5 [id number] Health Concerns Section Related Observation LastModified by Organization Detai ls LastModified Time None Recorded Concern Status LastModified by Organization Details LastModified Time None Recorded Payers Encounter Date Sequence Insurance Name Policy Number Policy Garcia Covered Member ID Garcia Member ID Guarantor Name 06/28/2025 2 [place] [employer] Leti White [id number] Leti Salgado Zkee 06/28/2025 1 [facility] (MEDICARE REPLACEMENT/A DVANTAGE - PPO) [id number] Leti Salgado Zeke [id number] Leti Salgado Zeke Notes Date Note Type Note Provider Name and Address Organization Details Recorded Time 06/28/2025 text/html Leti White is a pleasant 54-year-old female who comes in for a follow up visit. She has history of hypertension, uncontrolled diabetes mellitus, CAD, asthma and obesity. Also has history of coronary artery disease. The patient states that she has been doing well overall since her last visit. She occasionally has right sided chest discomfort that radiates from her back to her chest. She had an echocardiogram performed on 05/15/2025, which showed normal LVEF of 65 to 70%, normal RV size and function and mild mitral valve regurgitation. Patient denies any exertional chest pain, pressure or tightness. She denies any significant shortness of breath, orthopnea or edema. She denies any dizziness, or lightheadedness. States having palpitations occasionally when she is active such as carrying groceries and or going up a flight of stairs. She would noticed that her heart rate was up 220 beats a minute. She has been holding her atorvastatin due to leg cramping. Her cramping has improved. Most recent blood work is unremarkable from a cardiac standpoint. Twelve-lead EKG from 02/10/2025 showed sinus bradycardia at a rate of 57 beats minute with no acute ischemic change. Previous cardiac workup:1. Left and right heart cath on 03/08/2025. She was noted to have AO pressure of 121/56 mmHg, left systolic pressure of 128 mmHg and LVEDP of 10 mmHg. She was also noted to have left main with bifurcating vessel without significant stenosis, LAD with mild atherosclerosis, diagonal branch are small and free of significant stenosis, circumflex nondominant vessel with mild atherosclerosis, RCA with medium sized vessel with mild to moderate diffuse atherosclerosis and 40% tubular proximal/mid stenosis evaluated for IFR. The IFR was negative at 1.0.2. 14-day event monitor performed on 02/10/2025 which showed that she remained in normal sinus rhythm with good heart rate variability. Her average heart rate was 62 bpm. She had rare PACs and PVCs. She had short runs of SVT. Patient reported events correlated with sinus rhythm with PACs, PVCs and short runs of SVT.3. Coronary artery disease. She had a left heart cath, 04/18/2023, for possible unstable angina via right radial approach. It showed right dominant coronary circulation with severe disease of medium caliber diagonal-2 of 70%-80% stenosis. EDP was 10-15 mmHg. At that time, decision was made to treat her with medications only. If she had refractor angina, they recommended PCI to D2.4. Dobutamine stress echo, 05/10/2024, which showed no evidence of ischemia.IMPRESSION:[age]-year-old female comes in for a follow-up visit. She is doing well from a cardiac standpoint.PLAN:1. Nonobstructive CAD. Last left heart cath which showed moderate nonobstructive CAD. She has noted to have 40% lesion in the proximal/mid RCA with negative IFR. She is having atypical chest pain. Is likely musculoskeletal. Recommend continuing aspirin, amlodipine and carvedilol. She had issues with leg cramping on atorvastatin. We will switch her to Crestor 20 mg daily. Advised her to take co-Q10 with it as well. Recommend a heart healthy diet and regular exercise.2. SVT. Patient states that her heart rate has not gone above 120 bpm. We will continue current dose of carvedilol. Advised her to avoid stimulants and stay well-hydrated.3. Hyperlipidemia. We will switch her to Crestor 20 mg daily. We will repeat lipid panel in 3 to 6 months. LDL goal is less than 70.Patient was counseled regarding lifestyle modification healthy diet, daily exercise and weight loss.Patient understood the care plan and voiced no concerns.All questions answered.Followup visit in 6 months. KYA PRITCHARD, JOSE G [address] [place] [address], [id number], [facility] 06/28/2025 16:45:10 OBGyn Episode No OBEpisode recorded.
--- OUTSIDE RECORDS SUMMARY | 2025-08-11 13:53 | XMS_ITS ---
Author Organization Unknown Address [address] [place] [address] [phone] Phone Care Team Providers Care Travel Agency Manager Name Role Phone COLBY HSU ROBERT Attending Unavailable CARRILLO COATS Primary Unavailable Social History Type Status Start Date End Date Code Code Syst em Smoking History Never smoker (Never Smoked) 343077192 SNOMED CT Sex Female Vital Signs Vital Sign Value Unit Jarrell Value Jarrell Unit Date/Time Recent/Initial? Code Code System Body Mass Index 44.01 kg/m2 04/03/2025 22:54 Initial 60282 -5 LOINC Systolic Blood Pressure 176 mm[Hg] 04/03/2025 22:54 Initial 8480- 6 LOINC Diastolic Blood Pressure 81 mm[Hg] 04/03/2025 22:54 Initial 8462- 4 LOINC Body Surface Area 2.45 m2 04/03/2025 22:54 Initial 3140- 1 LOINC Height 170.180 0 cm 67.00 in 04/03/2025 22:54 Initial 8302- 2 LOINC O2 Saturation 95 % 2024 22:54 Initial 38258 -5 LOINC Pulse 82.0 /min 04/03/2025 22:54 Initial 8867- 4 LOINC Respiration 20 /min 04/03/20 22:54 Initial 9279- 1 LOINC Temperature 36.8 Alexandrea 98.2 F 04/03/20 22:54 Initial 8310- 5 LOINC Weight 127.46 kg 281.00 lbs 04/03/2025 22:54 Initial 13964 -7 LOINC Medications Medication Start Date End Date Route Frequency Dose Code Code System Medication Instructions Home Meds Zofran 4MG Oral Tablet 05/03/2025 Unknown ORAL EVERY 6 HOURS 1 TABLET 314757 RxNorm TAKE 1 TABLET ORAL EVERY 6 [...] Code Code System CHRONIC NECK PAIN active 458483875046 7 SNOMED-CT DISORDER OF ROTATOR CUFF active 690513978 SNOMED-CT SPRAIN OF LEFT SHOULDER active 33791611639058419 SNOMED-CT CHRONIC BACK PAIN active 873928366 SN OMED-CT CHRONIC MIGRAINE active 153889178 SNO MED-CT DIABETES active 21254427 SNOMED-CT GASTROPARESES active 289890262 SNOMED -CT ERIKA CELL NEOPLASM active 310048771 SNOMED-CT HYPERTENSION active 14215653 SNOMED- CT DRUG SEEKING BEHAVIOR active 64209117 SNOMED-CT MALINGERING active 40932145 SNOMED-C 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 10/24/2024 resolved 38190706 SNOMED-CT Allergies and Adverse Reactions Allergy Substance Reaction Severity Start Date Concern Status Code Code System PROCHLORPERAZINE go crazy (SNOMED-CT: null) Severe Active 8704 RxNorm ISOSORBIDE MONONITRATE SOB, anxiety (SNOMED-CT: null) Active 96790 RxNorm CLARITHROMYCIN Vomiting (SNOMED-CT: 012068414) Severe Active 19040 RxNorm BENADRYL went crazy (SNOMED-CT: null) Severe Active 381310 RxNorm IMITREX Tachycardia (SNOMED-CT: 0286813) Moderate Active 298798 RxNorm Plan of Treatment No Data Found Encounters Encounter Diagnosis Start Date Code Code Sys tem Migraine, unspecified, not i ntractable, without status migrainosus 04/03/2025 SNOMED-CT Personal Care Team Section
--- OUTSIDE RECORDS SUMMARY | 2025-08-11 13:53 | XMS_ITS ---
Author Organization Unknown Address [address] [place] [address] [phone] Phone Care Team Providers Care Rail Crew Member Name Role Phone NAPOLEON STEWART Attending Unavailable CARRILLO COATS Primary Unavailable Social History Type Status Start Date End Date Code Code Syst em Smoking History Never smoker (Never Smoked) 492105856 SNOMED CT Sex Female Vital Signs Vital Sign Value Unit Continental Value Continental Unit Date/Time Recent/Initial? Code Code System Body Mass Index 43.38 kg/m2 04/11/2025 20:23 Initial 11207 -5 LOINC Systolic Blood Pressure 140 mm[Hg] 04/11/2025 21:20 Most Recent 8480- 6 LOINC Diastolic Blood Pressure 63 mm[Hg] 04/11/2025 21:20 Most Recent 8462- 4 LOINC Systolic Blood Pressure 144 mm[Hg] 04/11/2025 20:23 Initial 8480- 6 LOINC Diastolic Blood Pressure 70 mm[Hg] 04/11/2025 20:23 Initial 8462- 4 LOINC Body Surface Area 2.44 m2 04/11/2025 20:23 Initial 3140- 1 LOINC Height 170.180 0 cm 67.00 in 04/11/2025 20:23 Initial 8302- 2 LOINC O2 Saturation 94 % 2024 21:20 Most Recent 16478 -5 LOINC O2 Saturation 96 % 2024 20:23 Initial 89412 -5 LOINC Pulse 62.0 /min 04/11/2025 21:20 Most Recent 8867- 4 LOINC Pulse 68.0 /min 04/11/2025 20:23 Initial 8867- 4 LOINC Respiration 18 /min 04/11/20 21:20 Most Recent 9279- 1 LOINC Respiration 18 /min 07/29/20 25 20:23 Initial 9279- 1 [facility] Temperature 36.4 Alexandrea 97.5 F 04/11/20 20:23 Initial 8310- 5 [facility] Weight 125.65 kg 277.00 lbs 04/11/2025 20:23 Initial 60340 -7 [facility] Medications Medication Start Date End Date Route Frequency Dose Code Code System Medication Instructions Home Meds Zofran 4MG Oral Tablet 05/03/2025 Unknown ORAL EVERY 6 HOURS 1 TABLET 053620 RxNorm TAKE 1 TABLET ORAL EVERY 6 [...] Code Code System CHRONIC NECK PAIN active 387995795638 7 SNOMED-CT DISORDER OF ROTATOR CUFF active 834027554 SNOMED-CT SPRAIN OF LEFT SHOULDER active 19811645393634079 SNOMED-CT CHRONIC BACK PAIN active 154928694 SN OMED-CT CHRONIC MIGRAINE active 859291733 SNO MED-CT DIABETES active 80500229 SNOMED-CT GASTROPARESES active 471618552 SNOMED -CT ERIKA CELL NEOPLASM active 292819192 SNOMED-CT HYPERTENSION active 51003136 SNOMED- CT DRUG SEEKING BEHAVIOR active 55484192 SNOMED-CT MALINGERING active 70239904 SNOMED-C 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 10/24/2024 resolved 28520673 SNOMED-CT Allergies and Adverse Reactions Allergy Substance Reaction Severity Start Date Concern Status Code Code System PROCHLORPERAZINE go crazy (SNOMED-CT: null) Severe Active 8704 RxNorm ISOSORBIDE MONONITRATE SOB, anxiety (SNOMED-CT: null) Active 73229 RxNorm CLARITHROMYCIN Vomiting (SNOMED-CT: 961692818) Severe Active 15127 RxNorm BENADRYL went crazy (SNOMED-CT: null) Severe Active 199153 RxNorm IMITREX Tachycardia (SNOMED-CT: 5089590) Moderate Active 750932 RxNorm Plan of Treatment No Data Found Encounters Encounter Diagnosis Start Date Code Code Sys tem Migraine, unspecified, not i ntractable, without status migrainosus 04/11/2025 SNOMED-CT Personal Care Team Section
--- OUTSIDE RECORDS SUMMARY | 2025-08-11 13:53 | XMS_ITS | Data Portability ---
Author Organization [facility], [address] [facility] ([place]) Address [address] [place] [address] Care Team Providers Care Property Field Inspector Name Role Phone DRAKE MCNEAL Pre Coder PAULY VIZCAINO Primary Care Provider PAULY VIZCAINO Referring Provider DELIA HALL Pipe Turner Assessment Encounter Date Assessment Date Assessment LastModified [...] regimen. No changes made today. 5. GI symptoms/colonosco py preparation intolerance; difficulty contacting GI - Clinician will send another message to GI office to facilitate contact and discuss alternative prep options given intolerance; patient will also continue attempts to reach them. 6. Immunization need - Patient requested influenza vaccination today; proceed if patient is feeling well and no contraindications. Follow-up: Return in approximately 1 month to reassess mood/anxiety and sleep after venlafaxine dose increase; sooner for worsening symptoms or concerns. Will communicate after consulting regarding migraine injection protocol at ER. Total time spent: 19 minutes (Tracked by Sola) [id number] Not available 07/04/2025 11:56:04 08/03/2025 08/03/2025 1. Type 2 Diabet es mellitus. Uncontrolled. Hemoglobin A1c 6.8%. Goal hemoglobin A1c less than 7% with avoidance of hypoglycemia. Continue Omnipod with Dexcom. Discuss correction boluses and how to use them. Reinforced the importance of bolusing and increasing bolusing frequency. Encouraged to take insulin 15 minutes prior to eating and hold meal time insulin if she is not eating. If given after, decrease by half. If greater than an hour, use correction. Monitor blood sugars and send these for review as needed if blood sugars are outside of discussed goals. Call if starts to have low blood sugars. Reviewed hypoglycemia symptoms and treatment options Changes made based on CGM interpretation. Continue to work on healthy diet. Reviewed consistent carbohydrate diet and portion control. Will cut down on soda. Exercise as tolerated. Update eye exam annually, We had a discussion regarding the pathophysiology and complications of diabetes and the importance of maintaining glycemic control to decrease the risk of these complications. Stressed the importance of annual eye exams. We discussed the need for lifestyle changes to improve diabetic control. 2. Neuropathy Has been off gabapentin. Symptoms tolerable at this time. Discussed checking feet once daily. Due to diabetes, at a risk of diabetic foot ulcers, which could lead to, including but not limited, osteomyelitis or amputation. Denies concerns with feet, did not remove shoes. Follow-up in 3 months where we will do a in an office hemoglobin A1c. Bring glucometer to follow up appointment. Patient will call the office if they have any questions or concerns in between appointments. Not available 08/03/2025 14:32:53 Plan of Treatment Reminders Order Date Submit Date Provider Last Modified By Organization Details Last Modified Time Details Appointments Estab judy pressley 15.ES T 2024 01:30P M Kya Pritchard Not available Not available Not available Poly pressley 15.ES T 2025 02:30P M Delia Carlo Not available Not available Not available Nurse Surge ry Block 50.COLE RG 2025 10:10A M Dr. Lalit Garber Not available Not available Not available ASC Surge ry.COLE RG 2025 10:10A M Gastroenterol ogy Not available Not available Not available ASC Surge ry.COLE RG 2025 10:10A M Dr. Lalit Garber Not available Not available Not available Pulm Funct ion Metha choli ne.HI O 2025 02:00P M [facility] Not available Not available Not available Estab lislyla d Myeshae nt 15.ES T 2025 11:15A M Dr. Carrol Jensen Not available Not available Not available New Patie nt Visit 10.NE W 2025 11:50A M Dr. Shital Mendes Not available Not available Not available Estab lislyla giron Patie nt 15.ES T 2025 01:30P M Tiffanie Painting Not available Not available Not available Estab lishe d Patie nt 15.ES T 2025 03:00P M Kya Pritchard Not available Not available Not available Lab None recor ded. Referral None recor ded. Procedures None recor ded. Surgeries None recor ded. Imaging None recor ded. Medication Orders Aimov ig Autoi nject or 140 mg/mL subcu taneo us auto- injec tor 2024 025 [facility] [place] [address] [place] [address], [id number], 08/04/2025 17:59:47 queti apine 25 mg table t 2024 025 [facility] [address] [place] [address], [id number], 07/04/2025 12:06:53 venla faxin e ER 150 mg capsu le,ex tende d relea se 24 hr 2024 025 [place], [address] [place] [address], [id number], 08/04/2025 17:59:46 venla faxin e ER 75 mg capsu le,ex tende d relea se 24 hr 2024 025 [facility] [place], [address] [place], [address], 08/04/2025 17:59:46 Crest or 20 mg table t 2024 025 [facility] [place], [address] [place], [address], 06/28/2025 18:18:25 Patient TargetsNo targets recorded. Patient [...] the NKF-A SN task force recom menda timelania . In most healt hy peopl e, [...] se (CKD) is prese nt. Not Available Pr Only - [facility] [address], [place], [address], 05/07/2025 19:09:14 05/07/20 25 05/07/2025 LPSE lipase,serum 33 u/L 16-77 Not Dalila ilable Pr Only - [facility] [address], [address], 05/07/2025 19:09:12 05/07/20 25 05/07/2025 LDH LD 187 u/L 81-234 Not Available Pr Only - [facility] [address], [address], 05/07/2025 19:09:10 05/07/20 25 05/07/2025 CMP sodium 142 mmol/ L 135-14 8 Not Available Pr Only - [facility] [address], [address], 05/07/2025 19:09:09 05/07/20 25 05/07/2025 CMP potassium 4.2 mmol/ L 3.5-5. 3 Not Available Pr Only - [facility] [address] [place] [address], [address], 05/07/2025 19:09:09 05/07/20 25 05/07/2025 CMP chloride 107 mmol/ L 96-112 Not Available Pr Only - [facility] [address] [place] [address], [address], 05/07/2025 19:09:09 05/07/20 25 05/07/2025 CMP CO2 30 mmol/ L 23-33 Not Available Pr Only - [facility] [address], [address], 05/07/2025 19:09:09 05/07/20 25 05/07/2025 CMP BUN 13 mg/dL 7-18 Not Available Pr Only - [facility] [address], [address], 05/07/2025 19:09:09 05/07/20 25 05/07/2025 CMP creatinine 1.16 mg/dL 0.55-1 .02 high Not Available Pr Only - [facility] [address], [address], 05/07/2025 19:09:09 05/07/20 25 05/07/2025 CMP glucose 101 mg/dL 65-99 high Not Availabl e Pr Only - [facility] [address], [address], 05/07/2025 19:09:09 05/07/20 25 05/07/2025 CMP calcium 9.0 mg/dL 8.5-10 .1 Not Available Pr Only - [facility] [address] [place] [address], [address], 05/07/2025 19:09:09 05/07/20 25 05/07/2025 CMP total protein 7.0 g/dL 6.4-8. 2 Not Available Pr Only - [facility] [address] [place] [address], [address], 05/07/2025 19:09:09 05/07/20 25 05/07/2025 CMP albumin 3.1 g/dL 3.4-5. 0 low Not Available Pr Only - [facility] [address] [place] [address], [address], 05/07/2025 19:09:09 05/07/20 25 05/07/2025 CMP bilirubin (total) 0.6 mg/dL 0.2-1. 0 Not Available Pr Only - [facility] [address] [place] [address], [address], 05/07/2025 19:09:09 05/07/20 25 05/07/2025 CMP AST 35 u/L 15-37 Not Available Pr Only - [facility] [address] [place] [address], [address], 05/07/2025 19:09:09 05/07/2005/07/2025 CMP alk phos 159 u/L 46-116 high Not Availab le Pr Only - [facility] [address], [address], 05/07/2025 19:09:09 05/07/20 25 05/07/2025 CMP ALT 38 u/L 14-59 Not Available Sc Only - [facility] [address] [place] [address], [address], 05/07/2025 19:09:09 05/07/20 25 05/07/2025 CMP anion gap 5 mmol/ L 7-16 low Not Available Sc Only - [facility] [address] [place] [address], [address], 05/07/2025 19:09:09 05/07/20 25 05/07/2025 DBIL bilirubin (direct) 0.11 mg/dL 0.00-0 .20 Not Available Sc Only - [facility] [address] [place] [address], [address], 05/07/2025 19:09:08 05/07/20 25 05/07/2025 CBCW/ DIFF WBC 5.83 x10 3.98-1 0.04 Not Available Pr Only - [facility] [address] [place] [address], [address], 05/07/2025 19:09:04 05/07/20 25 05/07/2025 CBCW/ DIFF RBC 3.77 x10 3.93-5 .22 low Not Available Pr Only - [facility] [address] [place] [address], [address], 05/07/2025 19:09:04 05/07/20 25 05/07/2025 CBCW/ DIFF hemoglobin 10.3 g/dL 11.2-1 5.7 low Not Available Pr Only - [facility] [address] [place] [address], [address], 05/07/2025 19:09:04 05/07/20 25 05/07/2025 CBCW/ DIFF hematocrit 32.2 % 34.1-4 4.9 low Not Available Pr Only - [facility] [address] [place] [address], [address], 05/07/2025 19:09:04 05/07/20 25 05/07/2025 CBCW/ DIFF MCV 85.4 fL 79.4-9 4.8 Not Available Sc Only - [facility] [address], [place], [address], 05/07/2025 19:09:04 05/07/20 25 05/07/2025 CBCW/ DIFF MCH 27.3 pg 25.6-3 2.2 Not Available Sc Only - [facility] [address] [place] [address], [address], 05/07/2025 19:09:04 05/07/20 25 05/07/2025 CBCW/ DIFF MCHC 32.0 g/dL 32.2-3 5.5 low Not Available Sc Only - [facility] [address] [place] [address], [address], 05/07/2025 19:09:04 05/07/20 25 05/07/2025 CBCW/ DIFF rdwcv 13.8 % 11.7-1 4.4 Not Available Sc Only - [address], [address], 05/07/2025 19:09:04 05/07/20 25 05/07/2025 CBCW/ DIFF rdwsd 43.1 fL 36.4-4 6.3 Not Available Sc Only - [address], [address], 05/07/2025 19:09:04 05/07/20 25 05/07/2025 CBCW/ DIFF platelets 191 x10 182-36 9 Not Available Sc Only - [facility] [address] [place] [address], [address], 05/07/2025 19:09:04 05/07/20 25 05/07/2025 CBCW/ DIFF MPV 10.0 fL 9.4-12 .3 Not Available Sc Only - [facility] [address] [place] [address], [address], 05/07/2025 19:09:04 05/07/20 25 05/07/2025 AUTOD IFF neutrophils 57.2 % 34.0-7 1.1 Not Available Sc Only - [facility] [address] [place] [address], [address], 05/07/2025 19:09:03 05/07/20 25 05/07/2025 AUTOD IFF lymphocytes 25.9 % 19.3-5 1.7 Not Available Pr Only - [address], [address], 05/07/2025 19:09:03 05/07/20 25 05/07/2025 AUTOD IFF monocytes 11.8 % 4.7-12 .5 Not Available Pr Only - [facility] [address] [place] [address], [address], 05/07/2025 19:09:03 05/07/20 25 05/07/2025 AUTOD IFF eosinophils 3.8 % 0.7-5. 8 Not Available Pr Only - [address], [address], 05/07/2025 19:09:03 05/07/20 25 05/07/2025 AUTOD IFF basophils 1.0 % 0.1-1. 2 Not Available Pr Only - [address], [address], 05/07/2025 19:09:03 05/07/20 25 05/07/2025 AUTOD IFF imm auto 0.3 % 0.0-1. 5 Not Available Pr Only - [address], [address], 05/07/2025 19:09:03 05/07/20 25 05/07/2025 AUTOD IFF NRBC auto 0.0 /100W BC 0.0-0. 2 Not Available Pr Only - [facility] [address] [place] [address], [address], 05/07/2025 19:09:03 05/07/20 25 05/07/2025 AUTOD IFF absolute neutrophils 3.33 x10 1.56-6 .13 Not Available Pr Only - [facility] [address] [place] [address], [address], 05/07/2025 19:09:03 05/07/20 25 05/07/2025 AUTOD IFF absolute lymphocytes 1.51 x10 1.18-3 .74 Not Available Pr Only - [address], [address], 05/07/2025 19:09:03 05/07/20 25 05/07/2025 AUTOD IFF absolute monocytes 0.69 x10 0.24-0 .36 high Not Available Pr Only - [address], [address], 05/07/2025 19:09:03 05/07/20 25 05/07/2025 AUTOD IFF absolute eosinophils 0.22 x10 0.04-0 .36 Not Available Pr Only - [address], [address], 05/07/2025 19:09:03 05/07/20 25 05/07/2025 AUTOD IFF absolute basophils 0.06 x10 0.01-0 .08 Not Available Pr Only - [address], [address], 05/07/2025 19:09:03 05/07/20 25 05/07/2025 AUTOD IFF imm absolute 0.02 x10 0.00-0 .15 Not Available Pr Only - [address], [address], 05/07/2025 19:09:03 05/07/20 25 05/07/2025 AUTOD IFF NRBC absolute 0.00 x10 0.00-0 .01 Not Available Pr Only - [address], [address], 05/07/2025 19:09:03 05/07/20 25 05/09/2025 C URINE urine culture (new) abnormal Print Date/ Time: 2024 07:42 CDT Patie nt: RICE, KATHL EEN P Micro biolo gy - Uroge [...] mptiv e and Prote us speci es HI ELIMI NARY REPOR TS Preli minar y Repor t [] Verif ied Date/ Time: 2024 08:17 CDT 40,00 0 cfu/m l Mixed presu mptiv e and Prote us speci es Not Available Pr Only - [facility] [address] [place] [address], [address], 05/09/2025 08:43:01 05/07/2005/07/2025 UACS color Pauline Not Available Sc Only - [facility] [address] [place] [address], [address], 05/07/2025 19:09:16 05/07/2005/07/2025 UACS appearance Clear Not Avail able Sc Only - [facility] [address] [place] [address], [address], 05/07/2025 19:09:16 05/07/2005/07/2025 UACS specific gravity 1.016 1.003- 1.035 Not Available Pr Only - [facility] [address] [place] [address], [address], 05/07/2025 19:09:16 05/07/20 25 05/07/2025 UACS pH urine 6.0 5.0-8. 0 Not Available [facility] [address] [place] [address], [address], 05/07/2025 19:09:16 05/07/2005/07/2025 UACS protein 1+ abnormal Not Availa ble [facility] [address] [place] [address], [address], 05/07/2025 19:09:16 05/07/2005/07/2025 UACS urine glucose Negati ve Not Available [facility] [address] [place] [address], [address], 05/07/2025 19:09:16 05/07/2005/07/2025 UACS ketones Negati ve Not Available [address], [address], 05/07/2025 19:09:16 05/07/2005/07/2025 UACS urine bilirubin Negati ve Not Available [facility] [address] [place] [address], [address], 05/07/2025 19:09:16 05/07/2005/07/2025 UACS urine HGB 1+ abnormal Not Avai lable [facility] [address] [place] [address], [address], 05/07/2025 19:09:16 05/07/2005/07/2025 UACS nitrite Positi ve abnormal Not Available [facility] [address] [place] [address], [address], 05/07/2025 19:09:16 05/07/2005/07/2025 UACS leukocyte esterase 1+ abnormal Not Available Pr On y - [facility] [address] [place] [address], [address], 05/07/2025 19:09:16 05/07/20 25 05/07/2025 UACS urobilinogen >=4.0 abnormal Refer ence Range : <=1 Not Available [facility] [address], [address], 05/07/2025 19:09:16 05/07/20 25 05/07/2025 UACS urine WBCs 26-50 abnormal Refer ence Range : <=5 Not Available [facility] [address] [place] [address], [address], 05/07/2025 19:09:16 05/07/20 25 05/07/2025 UACS urine RBCs 3-5 abnormal Refer ence Range : <=2 Not Available [address], [address], 05/07/2025 19:09:16 05/07/20 25 05/07/2025 UACS squamous epithelial cells 3+ Refer ence Range : <=3+ Not Available [address], [address], 05/07/2025 19:09:16 05/07/20 25 05/07/2025 UACS bacteria Trace abnormal Refer ence Range : <=Tra ce, Non-C ath Not Available [address], [address], 05/07/2025 19:09:16 05/07/20 25 05/07/2025 UACS transitional epithelial cells Few Refer ence Range : <=2+ Not Available [address], [address], 05/07/2025 19:09:16 05/07/20 25 05/07/2025 UACS hyaline casts 1 /lpf 0-2 Not Available Pr Onl y [facility] [address] [place] [address], [address], 05/07/2025 19:09:16 05/07/20 25 05/07/2025 UACS UA mucous Presen t Not Available [facility] [address] [place] [address], [address], 05/07/2025 19:09:16 05/07/20 25 05/07/2025 UACS urine ascorbic acid Negati ve Ascor bic acid can inter fere with the detec tion of blood , gluco se, and nitri te. Not Available Pr Only - [facility] [address] [place] [address], [address], 05/07/2025 19:09:16 05/07/20 25 05/08/2025 C URINE [...] 2024 17:22 CDT FREE TEXT SOURC E: HI ELIMI NARY REPOR TS Preli minar y Repor t [] Verif ied Date/ Time: 2024 08:17 CDT 40,00 0 cfu/m l Mixed presu mptiv e and Prote us speci es Not Available Pr Only - [facility] [address] [place] [address], [address], 05/08/2025 09:17:23 05/18/2005/18/2025 LIPAS E lipase 33 U/L 8 - 57 Not Available Pr Only - [facility] [address] [place], [address], 05/18/2025 06:33:26 05/18/20 25 05/18/2025 COMPL ETE METAB OLIC PANEL sodium 142 mmol/ L 136 - 145 Not Available Pr Only - [facility] [address] [place], [address], 05/18/2025 06:33:22 05/18/20 25 05/18/2025 COMPL ETE METAB OLIC PANEL potassium 3.6 mmol/ L 3.5 - 5.1 Not Available Pr Only - [facility] [address] [place], [address], 05/18/2025 06:33:22 05/18/20 25 05/18/2025 COMPL ETE METAB OLIC PANEL chloride 111 mmol/ L 98 - 107 high Not Available Pr Only - [facility] [address] [place], [address], 05/18/2025 06:33:22 05/18/20 25 05/18/2025 COMPL ETE METAB OLIC PANEL CO2 24 mmol/ L 22 - 28 Not Available Pr Only - [facility] [address] [place], [address], 05/18/2025 06:33:22 05/18/20 25 05/18/2025 COMPL ETE METAB OLIC PANEL glucose 132 mg/dL 70 - 105 high Not Available Pr Only - [facility] [address] [place], [address], 05/18/2025 06:33:22 05/18/20 25 05/18/2025 COMPL ETE METAB OLIC PANEL BUN 16 mg/dL 7 - 18 Not Available Pr Only - [facility] [address] [place], [address], 05/18/2025 06:33:22 05/18/20 25 05/18/2025 COMPL ETE METAB OLIC PANEL creatinine 0.82 mg/dL 0.44 - 1.24 Not Available Pr Only - [facility] [address] [place], [address], 05/18/2025 06:33:22 05/18/20 25 05/18/2025 COMPL ETE METAB OLIC PANEL total protein 6.4 g/dL 6.0 - 8.3 Not Available Pr Only - [facility] [address] [place], [address], 05/18/2025 06:33:22 05/18/20 25 05/18/2025 COMPL ETE METAB OLIC PANEL albumin 3.4 g/dL 3.5 - 5.0 low Not Available Pr Only - [facility] [address] [place], [address], 05/18/2025 06:33:22 05/18/20 25 05/18/2025 COMPL ETE METAB OLIC PANEL T bilirubin 0.5 mg/dL 0.2 - 1.0 Not Available Pr Only - [facility] [address] [place], [address], 05/18/2025 06:33:22 05/18/20 25 05/18/2025 COMPL ETE METAB OLIC PANEL SGPT 20 IU/L 10 - 40 Not Available Pr Only - [facility] [address] [place], [address], 05/18/2025 06:33:22 05/18/20 25 05/18/2025 COMPL ETE METAB OLIC PANEL alk phos 127 IU/L 32 - 92 high Not Available Pr Only - [facility] [address] [place], [address], 05/18/2025 06:33:22 05/18/20 25 05/18/2025 COMPL ETE METAB OLIC PANEL SGOT 23 IU/L 10 - 42 Not Available Pr Only - [facility] [address] [place], [address], 05/18/2025 06:33:22 05/18/20 25 05/18/2025 COMPL ETE METAB OLIC PANEL calcium 9.0 mg/dL 8.4 - 10.2 Not Available Pr Only - [facility] [address] [place], [address], 05/18/2025 06:33:22 05/18/20 25 05/18/2025 COMPL ETE METAB OLIC PANEL age 54 yr Not Available Pr Only - [facility] [address] [place], [address], 05/18/2025 06:33:22 05/18/20 25 05/18/2025 COMPL ETE [...] se(CK D) is prese nt. Not Available Pr Only - [facility] [address] [place], [address], 05/18/2025 06:33:22 05/18/20 25 05/18/2025 CBC-C OMPLE TE WBC 7.0 10^3u L 4.0 - 10.8 Not Available Pr Only - [facility] [address] [place], [address], 05/18/2025 06:15:17 05/18/20 25 05/18/2025 CBC-C OMPLE TE RBC 3.67 10^6u L 3.80 - 5.20 low Not Available Pr Only - [facility] [address] [place], [address], 05/18/2025 06:15:17 05/18/20 25 05/18/2025 CBC-C OMPLE TE hemoglobin 10.2 g/dL 11.7 - 16.0 low Not Available Sc Only - [facility] [address] [place], [address], 05/18/2025 06:15:17 05/18/2005/18/2025 CBC-C OMPLE TE hematocrit 30.4 % 35.0 - 47.0 low Not Available Pr Only - [facility] [address] [place], [address], 05/18/2025 06:15:17 05/18/2005/18/2025 CBC-C OMPLE TE MCV 83 fL 80 - 100 Not Available Pr Only - [facility] [address] [place], [address], 05/18/2025 06:15:17 05/18/2005/18/2025 CBC-C OMPLE TE MCH 28 pg 28 - 33 Not Available Pr Only - [facility] [address] [place], [address], 05/18/2025 06:15:17 05/18/2005/18/2025 CBC-C OMPLE TE MCHC 34 g/dL 32 - 36 Not Available Pr Only - [facility] [address] [place], [address], 05/18/2025 06:15:17 05/18/2005/18/2025 CBC-C OMPLE TE RDW 15.0 % 11.5 - 15.5 Not Available Pr Only - [facility] [address] [place], [address], 05/18/2025 06:15:17 05/18/2005/18/2025 CBC-C OMPLE TE platelet 204 10^3u L 140 - 440 Not Available Pr Only - [facility] [address] [place], [address], 05/18/2025 06:15:17 05/18/2005/18/2025 CBC-C OMPLE TE MPV 7.4 fL 7.5 - 11.0 low Not Available Pr Only - [facility] [address] [place], [address], 05/18/2025 06:15:17 05/18/2005/18/2025 CBC-C OMPLE TE %neutrophils 53.2 % 40.0 - 75.0 Not Available Pr Only - [facility] [address] [place], [address], 05/18/2025 06:15:17 05/18/2005/18/2025 CBC-C OMPLE TE %lymphocytes 31.5 % 15.0 - 45.0 Not Available Pr Only - [facility] [address] [place], [address], 05/18/2025 06:15:17 05/18/2005/18/2025 CBC-C OMPLE TE %monocytes 11.0 % 2.0 - 12.0 Not Available Pr Only - [facility] [address] [place], [address], 05/18/2025 06:15:17 05/18/2005/18/2025 CBC-C OMPLE TE %eosinophils 2.9 % 0.0 - 5.0 Not Available Pr Only - [facility] [address] [place], [address], 05/18/2025 06:15:17 05/18/2005/18/2025 CBC-C OMPLE TE %basophils 1.4 % 0.0 - 2.0 Not Available Pr Only - [facility] [address] [place], [address], 05/18/2025 06:15:17 05/18/2005/18/2025 CBC-C OMPLE TE neutrophil 3.8 10^3/ uL 1.7 - 7.0 Not Available Pr Only - [facility] [address] [place], [address], 05/18/2025 06:15:17 05/18/2005/18/2025 CBC-C OMPLE TE lymphocyte 2.2 10^3/ uL 0.9 - 3.7 Not Available Sc Only - [facility] [address] [place], [address], 05/18/2025 06:15:17 05/18/2005/18/2025 CBC-C OMPLE TE monocyte 0.8 10^3/ uL 0.2 - 0.8 Not Available Pr Only - [facility] [address] [place], [address], 05/18/2025 06:15:17 05/18/2005/18/2025 CBC-C OMPLE TE eosinophil 0.2 10^3/ uL 0.0 - 0.5 Not Available Pr Only - [facility] [address] [place], [address], 05/18/2025 06:15:17 05/18/2005/18/2025 CBC-C OMPLE TE basophil 0.1 10^3/ uL 0.0 - 0.2 Not Available Pr Only - [facility] [address] [place], [address], 05/18/2025 06:15:17 05/18/2005/18/2025 CBC-C OMPLE TE mdw 16.12 0.00 - 20.00 {CD] Not Available [facility] [facility] [address] [place], [address], 05/18/2025 06:15:17 05/18/2005/18/2025 CBC-C OMPLE TE manual diff NOT INDICA MICHELLE Not Available Pr Only - [facility] [address] [place], [address], 05/18/2025 06:15:17 05/18/2005/18/2025 LACTI C ACID lactic acid 1.05 mmol/ L 0.50 - 2.20 Not Available Pr Only - [facility] [address] [place], [address], 05/18/2025 06:12:25 05/18/2005/21/2025 CULTU RE/UR INE results _CULT URE URINE _ Not Available Pr Only - [facility] [address] [place], [address], 05/21/2025 08:28:50 05/18/2005/21/2025 CULTU RE/UR INE final report CLEAN CATCH SPECIM EN _>100 ,000_ cfu/m l____ ___ 05/21.0 727.C ML. _MIXE D_GRA M_POS ITIVE _AND_ NEGAT IVE_F LORA_ ___ 05/21.0 727.C ML. SET PREDO MINAN T ORGAN ISMS Micro biolo gy Not Available Pr Only - [facility] [address] [place], [address], 05/21/2025 08:28:50 05/18/2005/21/2025 CULTU RE/UR INE results Speci [place] Sourc e [id number] 0001 Colle ction Date 05/18 Colle ction Time 04:42 Speci men Note: Recei pt Date Exam Id. No: [id number] Exam Statu s Compl etion Date 05/20 [...] PREDO MINAN T ORGAN ISMS Not Available Pr Only - [facility] [address] [place], [address], 05/21/2025 08:28:50 05/18/2005/18/2025 URINA LYSIS color YELLOW normal : yellow Not Available Pr Only - [facility] [address] [place], [address], 05/18/2025 06:03:49 05/18/2005/18/2025 URINA LYSIS character HAZY normal : clear Not Available Pr Only - [facility] [address] [place], [address], 05/18/2025 06:03:49 05/18/2005/18/2025 URINA LYSIS spec. grav 1.015 normal : 1.003- 1.029 Not Available Pr Only - [facility] [address] [place], [address], 05/18/2025 06:03:49 05/18/2005/18/2025 URINA LYSIS pH 7.0 normal : 4.5 - 7.8 Not Available Pr Only - [facility] [address] [place], [address], 05/18/2025 06:03:49 05/18/2005/18/2025 URINA LYSIS leukocytes 2+ normal : negati ve Not Available Pr Only - [facility] [address] [place], [address], 05/18/2025 06:03:49 05/18/2005/18/2025 URINA LYSIS nitrite NEGATI VE normal : negati ve Not Available Pr Only - [facility] [address] [place], [address], 05/18/2025 06:03:49 05/18/20 25 05/18/2025 URINA LYSIS protein NEGATI VE normal : negati ve Not Available Pr Only - [facility] [address] [place], [address], 05/18/2025 06:03:49 05/18/20 25 05/18/2025 URINA LYSIS glucose NEGATI VE normal : negati ve Not Available Pr Only - [facility] [address] [place], [address], 05/18/2025 06:03:49 05/18/20 25 05/18/2025 URINA LYSIS ketones NEGATI VE normal : negati ve Not Available Pr Only - [facility] [address] [place], [address], 05/18/2025 06:03:49 05/18/20 25 05/18/2025 URINA LYSIS urobilinogen 0.2 normal : 0.2 - 1.0 Not Available Pr Only - [facility] [address] [place], [address], 05/18/2025 06:03:49 05/18/2005/18/2025 URINA LYSIS bilirubin NEGATI VE normal : negati ve Not Available Pr Only - [facility] [address] [place], [address], 05/18/2025 06:03:49 05/18/2005/18/2025 URINA LYSIS blood NEGATI VE normal : negati ve MICRO SCOPI C Not Available Pr Only - [facility] [address] [place], [address], 05/18/2025 06:03:49 05/18/2005/18/2025 URINA LYSIS WBC/hpf 20-30 normal : 0-5 hpf CULTU RE TO FOLLO W PER [place] Not Available Pr Only - [facility] [address] [place], [address], 05/18/2025 06:03:49 05/18/20 25 05/18/2025 URINA LYSIS RBC/hpf 5-10 normal : 0-3 hpf Not Available Pr Only - [facility] [address] [place], [address], 05/18/2025 06:03:49 05/18/20 25 05/18/2025 URINA LYSIS epith/hpf 30-50 normal : 0-5 hpf Not Available Sc Only - [facility] [address] [place], [address], 05/18/2025 06:03:49 05/18/20 25 05/18/2025 URINA LYSIS cast/lpf NONE SEEN normal : 0-4 lpf Not Available Sc Only - [facility] [address] [place], [address], 05/18/2025 06:03:49 05/18/20 25 05/18/2025 URINA LYSIS crystals NONE SEEN normal : negati ve Not Available Pr Only - [facility] [address] [place], [address], 05/18/2025 06:03:49 05/18/20 25 05/18/2025 URINA LYSIS bacteria 1+ normal : negati ve abnormal Not Available Pr Only - [facility] [address] [place], [address], 05/18/2025 06:03:49 05/18/20 25 05/18/2025 URINA LYSIS other MUCUS 1+ Not Available Sc Only - [facility] [address] [place], [address], 05/18/2025 06:03:49 05/26/20 25 05/26/2025 UACS color Yellow Not Available Pr Only - [facility] [address] [place] [address], [address], 05/26/2025 09:18:45 05/26/20 25 05/26/2025 UACS appearance Clear Not Avail able Sc Only - [facility] [address] [place] [address], [address], 05/26/2025 09:18:45 05/26/20 25 05/26/2025 UACS specific gravity 1.013 1.003- 1.030 Not Available Pr Only - [facility] [address] [place] [address], [address], 05/26/2025 09:18:45 05/26/20 25 05/26/2025 UACS pH urine 6.0 4.5-7. 5 Not Available Pr Only - [facility] [address] [place] [address], [address], 05/26/2025 09:18:45 05/26/20 25 05/26/2025 UACS protein 30 abnormal Not Availa ble Pr Only - [facility] [address] [place] [address], [address], 05/26/2025 09:18:45 05/26/20 25 05/26/2025 UACS urine glucose Negati ve Not Available Pr Only - [facility] [address] [place] [address], [address], 05/26/2025 09:18:45 05/26/20 25 05/26/2025 UACS ketones Negati ve Not Available Pr Only - [facility] [address] [place] [address], [address], 05/26/2025 09:18:45 05/26/20 25 05/26/2025 UACS urine bilirubin Negati ve Not Available Pr Only - [facility] [address] [place] [address], [address], 05/26/2025 09:18:45 05/26/20 25 05/26/2025 UACS urine HGB Negati ve Not Available Pr Only - [facility] [address] [place] [address], [address], 05/26/2025 09:18:45 05/26/20 25 05/26/2025 UACS nitrite Negati ve Not Available Pr Only - [facility] [address] [place] [address], [address], 05/26/2025 09:18:45 05/26/20 25 05/26/2025 UACS leukocyte esterase Large abnormal Not Available [facility] [address] [place] [address], [address], 05/26/2025 09:18:45 05/26/20 25 05/26/2025 UACS urobilinogen Normal Not Dalila ilable [facility] [address] [place] [address], [address], 05/26/2025 09:18:45 05/26/20 25 05/26/2025 UACS urine WBCs 10 /hpf 0-[address] [facility] [address] [place] [address], [address], 05/26/2025 09:18:45 05/26/20 25 05/26/2025 UACS urine RBCs 1 /hpf 0-[address] [facility] [address] [place] [address], [address], 05/26/2025 09:18:45 05/26/20 25 05/26/2025 UACS squamous epithelial cells 6 /hpf 0-5 high Not Available [facility] [address] [place] [address], [address], 05/26/2025 09:18:45 05/26/20 25 05/26/2025 UACS bacteria Occasi onal abnormal Not Available [facility] [address] [place] [address], [address], 05/26/2025 09:18:45 05/26/20 25 05/26/2025 UACS transitional epithelial cells 1 /hpf 0-1 Not Available [facility] [address] [place] [address], [address], 05/26/2025 09:18:45 05/26/20 25 05/27/2025 C URINE urine culture (new) abnormal Print Date/ Time: 2024 13:07 CDT Myeshae nt: JANINA WHITE P Micro biolo gy - Uroge nital Legen d: c=Cor recte d, F=Res ult Comme nt, S=Idalia cepti ble, I=Int ermed iate, R=Res istan t, N/A=N ot Appli cable PROCE DURE: Urine Cultu re [] ACCES KHALIDA: 001 121 SOURC E: Urine BODY SITE: COLLE [...] neede d. Not Available Sc Only - [facility] [address] [place] [address], [address], 05/27/2025 14:07:20 05/26/20 25 05/26/2025 BN PEPTI DE BNP 18 pg/mL 0-72 Not Available Pr Only - [facility] [address] [place] [address], [address], 05/26/2025 08:08:43 05/26/20 25 05/26/2025 DIMER D-dimer test 0.45 mcg/m L <=0.50 D-Dim ers are the resul t of fibri nolyt ic break down of cross -link ed fibri n. [place] tions indic ate incre ased fibri nolys [...] nogen equiv alent units (feu) Not Available Pr Only - [facility] [address] [place] [address], [address], 05/26/2025 07:28:09 05/26/2005/26/2025 HSTRO P high sensitivity [...] calcu late the delta . Not Available Pr Only - [facility] [address] [facility], [place], [address], 05/26/2025 07:13:31 05/26/2005/26/2025 EGFR eGFR 54 mL/mi [...] prese nt. Not Available Sc Only - [facility] [address] [place] [address], [address], 05/26/2025 07:10:12 05/26/20 25 05/26/2025 MG magnesium 1.8 mg/dL 1.9-2. 7 low Not Available Sc Only - [facility] [address] [place] [address], [address], 05/26/2025 07:10:11 05/26/20 25 05/26/2025 CMP sodium 137 mmol/ L 136-14 5 Not Available Pr Only - [facility] [address] [place] [address], [address], 05/26/2025 07:10:10 05/26/20 25 05/26/2025 CMP potassium 3.9 mmol/ L 3.5-5. 1 Not Available Pr Only - [facility] [address] [place] [address], [address], 05/26/2025 07:10:10 05/26/20 25 05/26/2025 CMP chloride 104 mmol/ L 98-107 Not Available Pr Only - [facility] [address] [place] [address], [address], 05/26/2025 07:10:10 05/26/20 25 05/26/2025 CMP CO2 24 mmol/ L 21-31 Not Available Pr Only - [facility] [address] [place] [address], [address], 05/26/2025 07:10:10 05/26/20 25 05/26/2025 CMP BUN 19 mg/dL 7-25 Not Available Sc Only - [facility] [address] [place] [address], [address], 05/26/2025 07:10:10 05/26/20 25 05/26/2025 CMP creatinine 1.2 mg/dL 0.6-1. 3 Not Available Pr Only - [facility] [address] [place] [address], [address], 05/26/2025 07:10:10 05/26/2005/26/2025 CMP glucose 164 mg/dL 70-105 high Not Availabl e Pr Only - [facility] [address] [place] [address], [address], 05/26/2025 07:10:10 05/26/2005/26/2025 CMP calcium 9.4 mg/dL 8.6-10 .3 Not Available Pr Only - [facility] [address] [place] [address], [address], 05/26/2025 07:10:10 05/26/2005/26/2025 CMP total protein 6.7 gm/dL 6.0-8. 3 Not Available [facility] - [address], [address], 05/26/2025 07:10:10 05/26/2005/26/2025 CMP albumin 4.0 gm/dL 3.5-5. 7 Not Available Pr Only - [facility] [address] [place] [address], [address], 05/26/2025 07:10:10 05/26/2005/26/2025 CMP bilirubin (total) 0.7 mg/dL 0.3-1. 0 Not Available [facility] [address] [place] [address], [address], 05/26/2025 07:10:10 05/26/2005/26/2025 CMP AST 23 IU/L 13-39 Not Available Pr Only - [facility] [address] [place] [address], [address], 05/26/2025 07:10:10 05/26/2005/26/2025 CMP alk phos 135 IU/L 34-104 high Not Availab le Pr Only - [facility] [address] [place] [address], [address], 05/26/2025 07:10:10 09/12/20 25 05/26/2025 CMP ALT 16 IU/L 7-52 Not Available Pr Only - [facility] [address] [place] [address], [address], 05/26/2025 07:10:10 05/26/20 25 05/26/2025 CMP anion gap 9 8-16 Anion gap calcu lated using formu la: Na - (Cl + CO2) Measu red total CO2 is used in place of HCO3 Not Available Pr Only - [address], [address], 05/26/2025 07:10:10 05/26/20 25 05/26/2025 DIFF neutrophils 60 % 47-67 Not Avai lable Pr Only - [address], [address], 05/26/2025 06:44:31 05/26/20 25 05/26/2025 DIFF lymphocytes 27 % 25-45 Not Avai lable Pr Only - [address], [address], 05/26/2025 06:44:31 05/26/2005/26/2025 DIFF monocytes 9 % 1-9 Not Availa ble Pr Only - [address], [address], 05/26/2025 06:44:31 05/26/2005/26/2025 DIFF eosinophils 3 % 0-6 Not Avai lable Pr Only - [address], [address], 05/26/2025 06:44:31 05/26/2005/26/2025 DIFF basophils 1 % 0-2 Not Availa ble Pr Only - [address], [address], 05/26/2025 06:44:31 05/26/2005/26/2025 DIFF absolute neutrophils 5.1 K/cum m 1.8-6. 5 Not Available Pr Only - [address], [address], 05/26/2025 06:44:31 05/26/2005/26/2025 DIFF absolute lymphocytes 2.2 K/cum m 0.9-3. 0 Not Available Pr Only - [address], [address], 05/26/2025 06:44:31 05/26/2005/26/2025 DIFF absolute monocytes 0.8 K/cum m 0.2-0. 8 Not Available Pr Only - [address], [address], 05/26/2025 06:44:31 05/26/2005/26/2025 DIFF absolute eosinophils 0.3 K/cum m 0.0-0. 4 Not Available Pr Only - [address], [address], 05/26/2025 06:44:31 05/26/2005/26/2025 DIFF absolute basophils 0.1 K/cum m 0.0-0. 2 Not Available Pr Only - [address], [address], 05/26/2025 06:44:31 05/26/2005/26/2025 CBC W/ AUTO DIFF WBC 8.4 K/cum m 3.4-9. 4 Not Available Pr Only [address], [address], 05/26/2025 06:44:29 05/26/2005/26/2025 CBC W/ AUTO DIFF RBC 4.05 M/cum m 4.20-5 .40 low Not Available Pr Only - [address], [address], 05/26/2025 06:44:29 05/26/2005/26/2025 CBC W/ AUTO DIFF hemoglobin 11.2 gm/dL 12.0-1 6.0 low Not Available Pr Only - [address], [address], 05/26/2025 06:44:29 05/26/2005/26/2025 CBC W/ AUTO DIFF hematocrit 33 % 37-47 low Not Available Pr Only - [facility] [address] [place] [address], [address], 05/26/2025 06:44:29 05/26/2005/26/2025 CBC W/ AUTO DIFF MCV 81 81-94 Not Available Pr Only - [address], [address], 05/26/2025 06:44:29 05/26/2005/26/2025 CBC W/ AUTO DIFF MCH 27.6 pg 27.5-3 3.2 Not Available Pr Only - [address], [address], 05/26/2025 06:44:29 05/26/2005/26/2025 CBC W/ AUTO DIFF MCHC 34.0 g/dL 31.0-3 6.0 Not Available Pr Only - [address], [address], 05/26/2025 06:44:29 05/26/2005/26/2025 CBC W/ AUTO DIFF RDW 14.4 % 11.7-1 5.5 Not Available Pr Only - [address], [address], 05/26/2025 06:44:29 05/26/2005/26/2025 CBC W/ AUTO DIFF platelets 280 K/cum m 140-41 0 Not Available Pr Only - [address], [address], 05/26/2025 06:44:29 05/26/2005/26/2025 CBC W/ AUTO DIFF MPV 8.4 mL Not Available Pr Only - [address], [address], 05/26/2025 06:44:29 06/07/2006/07/2025 CBC CBC Not Available [facility] - [facility] [address] [place] [address], [address], 06/07/2025 19:14:12 06/07/2006/07/2025 CBC WBC 5.9 K/uL 3.8-11 .2 Not Available [facility] - [facility] [address] [place] [address], [address], 06/07/2025 19:14:12 06/07/2006/07/2025 CBC RBC 4.18 M/uL 3.92-5 .10 Not Available [facility] Only - [facility] [address] [place] [address], [address], 06/07/2025 19:14:12 06/07/2006/07/2025 CBC HGB 11.5 g/dL 11.8-1 5.3 low Not Available [facility] Only - [facility] [address] [place] [address], [address], 06/07/2025 19:14:12 06/07/2006/07/2025 CBC HCT 35.2 % 36.5-4 4.8 low Not Available [facility] Only - [facility] [address] [place] [address], [address], 06/07/2025 19:14:12 06/07/2006/07/2025 CBC MCV 84.2 fL 80.0-9 9.0 Not Available [facility] Only - [facility] [address] [place] [address], [address], 06/07/2025 19:14:12 06/07/2006/07/2025 CBC MCH 27.5 pg 25.5-3 3.6 Not Available [facility] Only - [facility] [address] [place] [address], [address], 06/07/2025 19:14:12 06/07/20 25 06/07/2025 CBC MCHC 32.7 g/dL 32.0-3 6.0 Not Available [facility] Only - [facility] [address] [place] [address], [address], 06/07/2025 19:14:12 06/07/2006/07/2025 CBC RDW-SD 39.6 fL 35.1 - 46.3 Not Available Pr Only - [facility] [address] [place] [address], [address], 06/07/2025 19:14:12 06/07/2006/07/2025 CBC plt 272 K/uL 130-40 0 Not Available Pr Only - [facility] [address] [place] [address], [address], 06/07/2025 19:14:12 06/07/2006/07/2025 CBC MPV 9.9 fL 9.3-12 .8 Not Available Pr Only - [facility] [address] [place] [address], [address], 06/07/2025 19:14:12 06/07/2006/07/2025 urina lysis , compl ete urinalysis, complete LOW LEVEL S OF HEMOG LOBIN IN ABSEN CE OF HEMAT URIA MAY NOT BE CLINI MARCOS SIGNI FICAN T. Not Available Pr Only - [facility] [address] [place] [address], [address], 06/07/2025 19:21:12 06/07/2006/07/2025 urina lysis , compl ete color DARK YELLOW Dipst ick may be inacc urate due to the color of the urine Not Available Pr Only - [facility] [address] [place] [address], [address], 06/07/2025 19:21:12 06/07/2006/07/2025 urina lysis , compl ete clarity CLEAR Not Available Pr Only - [facility] [address] [place] [address], [address], 06/07/2025 19:21:12 06/07/2006/07/2025 urina lysis , compl ete pH 7.0 5.0-7. 5 Not Available Pr Only - [facility] [address] [place] [address], [address]1277, 06/07/2025 19:21:12 06/07/20 25 06/07/2025 urina lysis , compl ete specific gravity 1.010 1.000- 1.030 Not Available Pr Only - [facility] [address] [place] [address], 38092, 06/07/2025 19:21:12 06/07/20 25 06/07/2025 urina lysis , compl ete blood NEGATI VE negati ve Not Available Pr Only - [facility] [address] [place] [address], [address], 06/07/2025 19:21:12 06/07/20 25 06/07/2025 urina lysis , compl ete bilirubin NEGATI VE negati ve Not Available Pr Only - [facility] [address] [place] [address], [address]64, 06/07/2025 19:21:12 06/07/20 25 06/07/2025 urina lysis , compl ete urobilinogen 1.0 0.2-1. 0 Not Available Pr Only - [facility] [address] [place] [address], [address]70, 06/07/2025 19:21:12 06/07/20 25 06/07/2025 urina lysis , compl ete ketone NEGATI VE negati ve Not Available Pr Only - [facility] [address] [place] [address], 75558, 06/07/2025 19:21:12 06/07/20 25 06/07/2025 urina lysis , compl ete glucose NEGATI VE negati ve Not Available Pr Only - [facility] [address] [place] [address], [address]77, 06/07/2025 19:21:12 06/07/20 25 06/07/2025 urina lysis , compl ete protein NEGATI VE negati ve Not Available Pr Only - [facility] [address] [place] [address], 17086, 06/07/2025 19:21:12 06/07/20 25 06/07/2025 urina lysis , compl ete nitrite POSITI VE negati ve abnormal Not Available Pr Only - [facility] [address] [place] [address], [address]05, 06/07/2025 19:21:12 06/07/20 25 06/07/2025 urina lysis , compl ete leukocytes 1+ negati ve abnormal Not Available Pr Only - [facility] [address] [place] [address], [address], 06/07/2025 19:21:12 06/07/20 25 06/07/2025 urina lysis , compl ete review * Micro scopi c resul ts revie wed by [employer] P[employer] st. Not Available Pr Only - [facility] [address] [place] [address], 285[address], 06/07/2025 19:21:12 06/07/20 25 06/07/2025 urina lysis , compl ete RBC 0-2 0-2/hp f Not Available Pr Only - [facility] [address] [place] [address], [address]807, 06/07/2025 19:21:12 06/07/20 25 06/07/2025 urina lysis , compl ete WBC 0-5 0-5/hp f Not Available Pr Only - [facility] [address] [place] [address], 94675, 06/07/2025 19:21:12 06/07/20 25 06/07/2025 urina lysis , compl ete WBC. CONFI Cell count s confi rmed by [employer] Chauffeur Prive st. Not Available Pr Only - [facility] [address] [place] [address], [address]1557, 06/07/2025 19:21:12 06/07/20 25 06/07/2025 urina lysis , compl ete squamous epithelial 3-5 0-10/h pf Not Available Pr Only - [facility] [address] [place] [address], 87783, 06/07/2025 19:21:12 06/07/20 25 06/07/2025 urina lysis , compl ete bacteria NONE SEEN none Not Available Pr Only - [facility] [address] [place] [address], 98691, 06/07/2025 19:21:12 06/07/20 25 06/07/2025 urina lysis , compl ete hyaline cast 0-2 0-2/lp f Not Available [facility] Only - [facility] [address] [place] [address], 15307, 06/07/2025 19:21:12 06/07/20 25 06/07/2025 renal funct ion panel , serum renal function panel Not Available Pr On y - [facility] [address] [place] [address], 05708, 06/07/2025 19:42:24 06/07/20 25 06/07/2025 renal funct ion panel , serum sodium 140 mmol/ L 136-14 6 Not Available Pr Only - [facility] [address] [place] [address], 58068, 06/07/2025 19:42:24 06/07/20 25 06/07/2025 renal funct ion panel , serum potassium 4.0 mmol/ L 3.5-5. 1 Not Available Pr Only - [facility] [address] [place] [address], 42937, 06/07/2025 19:42:24 06/07/20 25 06/07/2025 renal funct ion panel , serum chloride 106 mmol/ L 98-110 Not Available Pr Only - [facility] [address] [place] [address], 30242, 06/07/2025 19:42:24 06/07/20 25 06/07/2025 renal funct ion panel , serum CO2 25 mEq/L 20-32 Not Available Pr Only - [facility] [address] [place] [address], 45951, 06/07/2025 19:42:24 06/07/2006/07/2025 renal funct ion panel , serum anion gap 13 mmol/ L 10-22 Not Available [facility] Only - [facility] [address] [place] [address], 90268, 06/07/2025 19:42:24 06/07/2006/07/2025 renal funct ion panel , serum glucose 188 mg/dL 70-100 high Not Available Pr Only - [facility] [address] [place] [address], [address]42, 06/07/2025 19:42:24 06/07/2006/07/2025 renal funct ion panel , serum calcium 9.5 mg/dL 8.4-10 .4 Not Available Pr Only - [facility] [address] [place] [address], 93694, 06/07/2025 19:42:24 06/07/2006/07/2025 renal funct ion panel , serum albumin 4.1 g/dL 3.5-5. 3 Not Available [facility] Only - [facility] [address] [place] [address], [address], 06/07/2025 19:42:24 06/07/2006/07/2025 renal funct ion panel , serum phosphorus 3.1 mg/dL 2.7-4. 5 Not Available Pr Only - [facility] [address] [place] [address], [address], 06/07/2025 19:42:24 06/07/2006/07/2025 renal funct ion panel , serum BUN 15 mg/dL 7-21 Not Available Pr Only - [facility] [address] [place] [address], 22227, 06/07/2025 19:42:24 06/07/20 25 06/07/2025 renal funct ion panel , serum creatinine 0.9 mg/dL 0.7-1. 3 Not Available Pr Only - [facility] [address] [place] [address], 84965, 06/07/2025 19:42:24 06/07/2006/07/2025 renal funct ion panel , serum CKD-epi GFR 76 eGFR was calcu lated using the 2020 CKD-E PI equat ion. (Director Inpatient Headache Program andree Kidne y Disea se has an eGFR less than 60 mL/mi n/1.7 3mm for a perio d of three month s or more. ) This calcu latio n has not been valid ated for patie nt ages <18 or >90 years old. Not Available Pr Only - [facility] [address] [place] [address], [address], 06/07/2025 19:42:24 06/07/2006/08/2025 micro album in, urine microalbumin ,random panel Not Available [facility] [address] [place] [address], [id number], 06/08/2025 10:13:00 06/07/20 25 06/08/2025 micro album in, urine microalbumin random 0.5 mg/dL Not Available [facility] [address] [place] [address], [id number], 06/08/2025 10:13:00 06/07/20 25 06/08/2025 micro album in, urine creatinine, urine random 37 mg/dL Refer ence range not estab lishe d for other than 24 hour colle ction . Not Available [facility] [address] [place] [address], [id number], 06/08/2025 10:13:00 06/07/20 25 06/08/2025 micro album [...] s have been estab lishe d for randblu drew Micro album in or Creat inine .) Not Available [facility] [address] [place] [address], [id number], 06/08/2025 10:13:00 06/07/20 25 06/08/2025 C4 (comp lemen t), serum or plasm a complement C4 44 mg/dL 12-38 high Not Available [facility] [address] [place] [address], [address], 06/08/2025 14:11:19 06/07/20 25 06/08/2025 C3 (comp lemen t), serum or plasm a complement C3 201 mg/dL 82-167 high Not Available [facility] [address] [place] [address], 05882, 06/08/2025 14:11:20 06/07/20 25 06/08/2025 ADALBERTO (anti nucle ar antib odies ) scree n, serum ADALBERTO screen NEGATI VE negati ve Perfo rmed by Bio-R ad enzym e immun oassa y Not Available Pr Only - [facility] [address] [place] [address], 86419, 06/08/2025 15:48:52 06/07/2006/09/2025 cultu re + sensi [...] resis tant inter preta tion Not Available [facility] [address] [place] [address], 77105, 06/09/2025 09:46:55 06/07/2006/09/2025 immun ofixa tion, serum immunofixati on, serum No monoc lonal ity detec michelle. Not Available [facility] [address] [place] [address], 42758, 06/09/2025 15:12:43 06/07/20 25 06/09/2025 immun ofixa tion, serum IgG quantitative 1147 mg/dL 586-16 02 Not Available [facility] [address] [place] [address], 98912, 06/09/2025 15:12:43 06/07/20 25 06/09/2025 immun ofixa tion, serum IgA quantitative 393 mg/dL 87-352 high Not Available [facility] [address] [place] [address], 40719, 06/09/2025 15:12:43 06/07/2006/09/2025 immun ofixa tion, serum IgM quantitative 80 mg/dL 26-217 Not Available [facility] Only - [facility] [address] [place] [address], 75852, 06/09/2025 15:12:43 06/07/2006/12/2025 anca panel , serum anca, complete Not Available [facility] [address] [place] [address], 03405, 06/12/2025 20:10:54 06/07/2006/12/2025 anca panel , serum myeloperoxid ase Ab <0.2 units 0.0-0. 9 Not Available [facility] Only - [facility] [address] [place] [address], 14663, 06/12/2025 20:10:54 06/07/2006/12/2025 anca panel , serum proteinase-3 Ab, anca <0.2 units 0.0-0. 9 Not Available [facility] Only - [facility] [address] [place] [address], 19893, 06/12/2025 20:10:54 06/07/2006/12/2025 anca panel , serum C-anca titer <1:20 titer neg:<1 :20 Not Available [facility] Only - [facility] [address] [place] [address], 67360, 06/12/2025 20:10:54 06/07/2006/12/2025 anca panel , serum [...] ng of posit marquis sera with both HI-3 and MPO-A NCA enzym e immun oassa ys. As many as 5% serum sampl es are posit marquis only by EIA. Ref. AM J Clin Patho l 1999; 111:5 07-51 3. Not Available [facility] Only - [facility] [address] [place] [address], 04757, 06/12/2025 20:10:54 06/07/20 25 06/12/2025 anca panel , serum atypical P anca titer <1:20 titer neg:<1 :20 The atypi radha Rica aguilera rn has been obser elva in a signi fican t perce ntage of patie nts with ulcer ative colit is, prima ry scler osing chola ngiti s and autoi mmune hepat itis. Not Available [facility] Only - [facility] [address] [place] [address], 29651, 06/12/2025 20:10:54 06/07/20 25 06/07/2025 UE urine eosinophils NEGATI VE Not Available Pr Only - [address], 91567, 06/07/2025 23:40:52 06/07/20 25 06/08/2025 cultu re + sensi tivit y, urine urine culture and sens. PREL IM URINE GRAM NEGAT MARQUIS RODS DATE/ TIME: 06/08 10:17 >100, 000 CFU/m L Not Available [facility] - [facility] [address] [place] [address], 19730, 06/08/2025 11:18:58 06/18/20 25 06/20/2025 C URINE urine culture (new) abnormal Print Date/ Time: 2024 10:46 CDT Patie nt: JANINA WHITE P Micro biolo gy - Uroge nital Legen d: c=Cor recte d, F=Res ult Comme nt, S=Idalia cepti ble, I=Int ermed iate, R=Res istan t, N/A=N ot Appli cable PROCE DURE: Urine Cultu re [] ACCES KHALIDA: [id number] SOURC E: Urine BODY SITE: COLLE [...] furth er work- up is neede d. HI ELIMI NARY REPOR TS Preli minar y Repor t [] Verif ied Date/ Time: 2024 14:19 CDT Moder ate proba ble conta minan ts inclu din,00 0 cfu/m l Gram Negat marquis Rods Cultu re reinc ubate d Not Available Pr Only - [address], 92621, 06/20/2025 11:46:50 06/18/2006/18/2025 UACS color Pauline Not Available Pr Only - [address], 89272, 06/18/2025 17:21:53 06/18/2006/18/2025 UACS appearance Clear Not Avail able Pr Only - [address], 92225, 06/18/2025 17:21:53 06/18/20 25 06/18/2025 UACS specific gravity 1.012 1.003- 1.030 Not Available Pr Only - [address], 75086, 06/18/2025 17:21:53 06/18/20 25 06/18/2025 UACS pH urine 6.0 4.5-7. 5 Not Available Pr Only - [address], 23000, 06/18/2025 17:21:53 06/18/20 25 06/18/2025 UACS protein 30 abnormal Not Availa ble Pr Only - [address], 18083, 06/18/2025 17:21:53 06/18/2006/18/2025 UACS urine glucose Negati ve Not Available [address], 25657, 06/18/2025 17:21:53 06/18/20 25 06/18/2025 UACS ketones Negati ve Not Available [address], 93879, 06/18/2025 17:21:53 06/18/20 25 06/18/2025 UACS urine bilirubin Negati ve Not Available [address], 54727, 06/18/2025 17:21:53 06/18/20 25 06/18/2025 UACS urine HGB Small abnormal Not Avai lable [facility] - [address], 92948, 06/18/2025 17:21:53 06/18/2006/18/2025 UACS nitrite Positi ve abnormal Not Available [address], 54825, 06/18/2025 17:21:53 06/18/20 25 06/18/2025 UACS leukocyte esterase Negati ve Not Available [address], 40638, 06/18/2025 17:21:53 06/18/20 25 06/18/2025 UACS urobilinogen >=4.0 abnormal Not A vailable [address], 05365, 06/18/2025 17:21:53 06/18/20 25 06/18/2025 UACS urine WBCs 2 /hpf 0-4 Not Avail able [address], 07130, 06/18/2025 17:21:53 06/18/20 25 06/18/2025 UACS urine RBCs 0 /hpf 0-2 Not Avail able Pr Only - [facility] [address], 33365, 06/18/2025 17:21:53 06/18/20 25 06/18/2025 UACS squamous epithelial cells 6 /hpf 0-5 high Not Available Sc Onl y - [facility] [address] [place] [address], 72385, 06/18/2025 17:21:53 06/18/2006/18/2025 UACS bacteria Few abnormal Not Avail able Pr Only - [facility] [address] [place] [address], 97829, 06/18/2025 17:21:53 06/18/20 25 06/18/2025 UACS color Pauline Not Available Pr Only - [facility] [address] [place] [address], 72403, 06/18/2025 17:21:52 06/18/20 25 06/18/2025 UACS appearance Clear Not Avail able Pr Only - [facility] [address] [place] [address], 01131, 06/18/2025 17:21:52 06/18/20 25 06/18/2025 UACS specific gravity 1.012 1.003- 1.030 Not Available Pr Only - [facility] [address] [place] [address], 48609, 06/18/2025 17:21:52 06/18/20 25 06/18/2025 UACS pH urine 6.0 4.5-7. 5 Not Available Pr Only - [facility] [address] [place] [address], 76222, 06/18/2025 17:21:52 06/18/20 25 06/18/2025 UACS protein 30 abnormal Not Availa ble Pr Only - [facility] [address] [place] [address], 53305, 06/18/2025 17:21:52 06/18/20 25 06/18/2025 UACS urine glucose Negati ve Not Available [address], 51513, 06/18/2025 17:21:52 06/18/20 25 06/18/2025 UACS ketones Negati ve Not Available [address], 86970, 06/18/2025 17:21:52 06/18/20 25 06/18/2025 UACS urine bilirubin Negati ve Not Available [address], 23811, 06/18/2025 17:21:52 06/18/20 25 06/18/2025 UACS urine HGB Small abnormal Not Avai lable [address], 97942, 06/18/2025 17:21:52 06/18/20 25 06/18/2025 UACS nitrite Positi ve abnormal Not Available [address], 77917, 06/18/2025 17:21:52 06/18/20 25 06/18/2025 UACS leukocyte esterase Negati ve Not Available [address], 29136, 06/18/2025 17:21:52 06/18/20 25 06/18/2025 UACS urobilinogen >=4.0 abnormal Not A vailable [address], 75433, 06/18/2025 17:21:52 06/18/20 25 06/18/2025 UACS urine WBCs 2 /hpf 0-4 Not Avail able [address], 00156, 06/18/2025 17:21:52 06/18/20 25 06/18/2025 UACS squamous epithelial cells 6 /hpf 0-5 high Not Available [facility] [address] [place] [address], 06448, 06/18/2025 17:21:52 06/18/20 25 06/18/2025 UACS bacteria Few abnormal Not Avail able Sc Only - [facility] [address] [place] [address], 99729, 06/18/2025 17:21:52 06/18/20 25 06/18/2025 EGFR eGFR [...] se(CK D) is prese nt. Not Available Pr Only - [facility] [address] [place] [address], 42106, 06/18/2025 17:15:19 06/18/20 25 06/18/2025 LPSE lipase,serum 18 u/L 11-82 Not Dalila ilable Pr Only - [facility] [address] [place] [address], 74077, 06/18/2025 17:15:18 06/18/20 25 06/18/2025 CMP sodium 139 mmol/ L 136-14 5 Not Available Sc Only - [facility] [address] [place] [address], 10796, 06/18/2025 17:15:16 06/18/2006/18/2025 CMP potassium 4.1 mmol/ L 3.5-5. 1 Not Available Pr Only - [facility] [address], 13262, 06/18/2025 17:15:16 06/18/2006/18/2025 CMP chloride 106 mmol/ L 98-107 Not Available Pr Only - [facility] [address] [place] [address], 30120, 06/18/2025 17:15:16 06/18/2006/18/2025 CMP CO2 24 mmol/ L 21-31 Not Available Pr Only - [facility] [address], 45049, 06/18/2025 17:15:16 06/18/20 25 06/18/2025 CMP BUN 9 mg/dL 7-25 Not Available Pr Only - [facility] [address], 93494, 06/18/2025 17:15:16 06/18/2006/18/2025 CMP creatinine 0.8 mg/dL 0.6-1. 3 Not Available Pr Only - [facility] [address], 39560, 06/18/2025 17:15:16 06/18/2006/18/2025 CMP glucose 210 mg/dL 70-105 high Not Availabl e Pr Only - [facility] [address], 77916, 06/18/2025 17:15:16 06/18/2006/18/2025 CMP calcium 9.3 mg/dL 8.6-10 .3 Not Available Pr Only - [facility] [address], 82061, 06/18/2025 17:15:16 06/18/20 25 06/18/2025 CMP total protein 7.2 gm/dL 6.0-8. 3 Not Available Pr Only - [facility] [address] [place] [address], 12271, 06/18/2025 17:15:16 06/18/20 25 06/18/2025 CMP albumin 4.0 gm/dL 3.5-5. 7 Not Available Pr Only - [address], 99680, 06/18/2025 17:15:16 06/18/20 25 06/18/2025 CMP bilirubin (total) 0.8 mg/dL 0.3-1. 0 Not Available [facility] - [address], 24618, 06/18/2025 17:15:16 06/18/20 25 06/18/2025 CMP AST 24 IU/L 13-39 Not Available [facility] - [address], 01378, 06/18/2025 17:15:16 06/18/20 25 06/18/2025 CMP alk phos 134 IU/L 34-104 high Not Availab le [facility] - [address], 25673, 06/18/2025 17:15:16 06/18/20 25 06/18/2025 CMP ALT 15 IU/L 7-52 Not Available [facility] - [address], 85526, 06/18/2025 17:15:16 06/18/20 25 06/18/2025 CMP anion gap 9 8-16 Anion gap calcu lated using formu la: Na - (Cl + CO2) Measu red total CO2 is used in place of HCO3 Not Available [address], 22536, 06/18/2025 17:15:16 06/18/20 25 06/18/2025 DBIL bilirubin (direct) 0.1 mg/dL 0.0-0. 2 Not Available Sc Only - [facility] [address], 57368, 06/18/2025 17:15:14 06/18/20 25 06/18/2025 DIFF neutrophils 64 % 47-67 Not Avai lable Sc Only - [facility] [address] [place] [address], 10745, 06/18/2025 16:50:30 06/18/20 25 06/18/2025 DIFF lymphocytes 23 % 25-45 low Not Avai lable Pr Only - [facility] [address] [place] [address], 38401, 06/18/2025 16:50:30 06/18/20 25 06/18/2025 DIFF monocytes 8 % 1-9 Not Availa ble Sc Only - [address], 48450, 06/18/2025 16:50:30 06/18/20 25 06/18/2025 DIFF eosinophils 3 % 0-6 Not Avai lable Pr Only - [address], 67968, 06/18/2025 16:50:30 06/18/20 25 06/18/2025 DIFF basophils 1 % 0-2 Not Availa ble Pr Only - [address], 07908, 06/18/2025 16:50:30 06/18/20 25 06/18/2025 DIFF absolute neutrophils 5.0 K/cum m 1.8-6. 5 Not Available Pr Only - [facility] [address] [place] [address], 42353, 06/18/2025 16:50:30 06/18/20 25 06/18/2025 DIFF absolute lymphocytes 1.8 K/cum m 0.9-3. 0 Not Available Pr Only - [facility] [address] [place] [address], 34058, 06/18/2025 16:50:30 06/18/20 25 06/18/2025 DIFF absolute monocytes 0.6 K/cum m 0.2-0. 8 Not Available Pr Only - [address], 16408, 06/18/2025 16:50:30 06/18/20 25 06/18/2025 DIFF absolute eosinophils 0.3 K/cum m 0.0-0. 4 Not Available Pr Only - [address], 54425, 06/18/2025 16:50:30 06/18/20 25 06/18/2025 DIFF absolute basophils 0.1 K/cum m 0.0-0. 2 Not Available Pr Only - [address], 32271, 06/18/2025 16:50:30 06/18/20 25 06/18/2025 CBC W/ AUTO DIFF WBC 7.8 K/cum m 3.4-9. 4 Not Available Pr Only - [address], 12302, 06/18/2025 16:50:28 06/18/20 25 06/18/2025 CBC W/ AUTO DIFF RBC 4.23 M/cum m 4.20-5 .40 Not Available Pr Only - [address], 55011, 06/18/2025 16:50:28 06/18/20 25 06/18/2025 CBC W/ AUTO DIFF hemoglobin 11.5 gm/dL 12.0-1 6.0 low Not Available Pr Only - [address], 52951, 06/18/2025 16:50:28 06/18/20 25 06/18/2025 CBC W/ AUTO DIFF hematocrit 35 % 37-47 low Not Available Pr Only - [address], 65757, 06/18/2025 16:50:28 06/18/20 25 06/18/2025 CBC W/ AUTO DIFF MCV 83 81-94 Not Available Pr Only - [facility] [address] [place] [address], 72258, 06/18/2025 16:50:28 06/18/20 25 06/18/2025 CBC W/ AUTO DIFF MCH 27.1 pg 27.5-3 3.2 low Not Available Pr Only - [facility] [address] [place] [address], 80771, 06/18/2025 16:50:28 06/18/20 25 06/18/2025 CBC W/ AUTO DIFF MCHC 32.6 g/dL 31.0-3 6.0 Not Available Pr Only - [facility] [address] [place] [address], 95396, 06/18/2025 16:50:28 06/18/20 25 06/18/2025 CBC W/ AUTO DIFF RDW 14.1 % 11.7-1 5.5 Not Available Pr Only - [facility] [address] [place] [address], 76604, 06/18/2025 16:50:28 06/18/20 25 06/18/2025 CBC W/ AUTO DIFF platelets 278 K/cum m 140-41 0 Not Available Pr Only - [facility] [address] [place] [address], 64514, 06/18/2025 16:50:28 06/18/20 25 06/18/2025 CBC W/ AUTO DIFF MPV 7.9 mL Not Available Pr Only - [facility] [address] [place] [address], 08745, 06/18/2025 16:50:28 06/18/20 25 06/19/2025 C URINE urine culture (new) abnormal Print Date/ Time: 2024 14:19 CDT Patie nt: JANIAN WHITE P Micro biolo gy - Uroge [...] 2024 19:13 CDT FREE TEXT SOURC E: HI ELIMI NARY REPOR TS Preli minar y Repor t [] Verif ied Date/ Time: 2024 14:19 CDT Moder ate proba ble conta minan ts inclu din,00 0 cfu/m l Gram Negat marquis Rods Cultu re reinc ubate d Not Available Pr Only - [address], 97810, 06/19/2025 15:19:31 06/28/2006/30/2025 alpha -1-an titry psin (aat) , QN, serum A-1 antitrypsin phenotype Not Available Pr Onl [facility] - [facility] [address] [place] [address], 07853, 06/30/2025 17:12:05 06/28/20 25 06/30/2025 alpha -1-an titry psin (aat) , QN, serum lloiz-7-orua trypsin 140 mg/dL 101-18 7 Not Available Pr Only - [facility] [address] [place] [address], 26926, 06/30/2025 17:12:05 06/28/2006/30/2025 alpha -1-an titry psin [...] to confi rm pheno type. Not Available Pr Only - [facility] [address] [place] [address], 39289, 06/30/2025 17:12:05 07/25/2007/25/2025 UACS color Yellow Not Available Pr Only - [address], 77059, 07/25/2025 19:55:43 07/25/20 25 07/25/2025 UACS appearance Hazy Not Avail able Pr Only - [facility] [address] [place] [address], 86229, 07/25/2025 19:55:43 07/25/20 25 07/25/2025 UACS specific gravity 1.013 1.003- 1.035 Not Available Pr Only - [email or web address] [address] [place] [address], 53484, 07/25/2025 19:55:43 07/25/20 25 07/25/2025 UACS pH urine 7.0 5.0-8. 0 Not Available Pr Only - [facility] [address] [place] [address], 98082, 07/25/2025 19:55:43 07/25/20 25 07/25/2025 UACS protein Negati ve Not Available [facility] [address] [place] [address], 43582, 07/25/2025 19:55:43 07/25/20 25 07/25/2025 UACS urine glucose Negati ve Not Available [facility] - [facility] [address] [place] [address], 75767, 07/25/2025 19:55:43 07/25/20 25 07/25/2025 UACS ketones Negati ve Not Available [facility] - [facility] [address] [place] [address], 10438, 07/25/2025 19:55:43 07/25/20 25 07/25/2025 UACS urine bilirubin Negati ve Not Available [facility] - [facility] [address] [place] [address], 60149, 07/25/2025 19:55:43 07/25/20 25 07/25/2025 UACS urine HGB Negati ve Not Available [facility] - [facility] [address] [place] [address], 60386, 07/25/2025 19:55:43 07/25/20 25 07/25/2025 UACS nitrite Negati ve Not Available [facility] - [facility] [address] [place] [address], 51505, 07/25/2025 19:55:43 07/25/20 25 07/25/2025 UACS leukocyte esterase 2+ abnormal Not Available Pr On y - [facility] [address] [place] [address], 83118, 07/25/2025 19:55:43 07/25/20 25 07/25/2025 UACS urobilinogen Negati ve Refer ence Range : <=1 Not Available [facility] [address] [place] [address], 22032, 07/25/2025 19:55:43 07/25/20 25 07/25/2025 UACS urine WBCs 11-25 abnormal Refer ence Range : <=5 Not Available Pr Only - [facility] [address] [place] [address], 61079, 07/25/2025 19:55:43 07/25/20 25 07/25/2025 UACS urine RBCs 0-2 Refer ence Range : <=2 Not Available [facility] - [facility] [address] [place] [address], 19955, 07/25/2025 19:55:43 07/25/20 25 07/25/2025 UACS squamous epithelial cells 4+ abnormal Refer ence Range : <=3+ Not Available [facility] - [facility] [address] [place] [address], 60026, 07/25/2025 19:55:43 07/25/20 25 07/25/2025 UACS bacteria 1+ abnormal Refer ence Range : <=Tra ce, Non-C ath Not Available Pr Only - [facility] [address] [place] [address], 25797, 07/25/2025 19:55:43 07/25/20 25 07/25/2025 UACS UA mucous Presen t Not Available [facility] - [facility] [address] [place] [address], 91006, 07/25/2025 19:55:43 07/25/20 25 07/25/2025 UACS urine ascorbic acid Negati ve Ascor bic acid can inter fere with the detec tion of blood , gluco se, and nitri te. Not Available Pr Only - [facility] [address] [place] [address], 90124, 07/25/2025 19:55:43 07/25/20 25 07/25/2025 EGFR eGFR 99 mL/mi n/1.7 3m? This eGFR is calcu [...] Only - [facility] [address] [place] [address], 20770, 07/25/2025 20:03:32 07/25/20 25 07/25/2025 MG magnesium 1.8 mg/dL 1.8-2. 4 Not Available Sc Only - [facility] [address] [place] [address], 11321, 07/25/2025 20:03:31 07/25/20 25 07/25/2025 LPSE lipase,serum 26 u/L 16-77 Not Dalila ilable Sc Only - [facility] [address] [place] [address], 79613, 07/25/2025 20:03:30 07/25/20 25 07/25/2025 LDH LD 158 u/L 81-234 Not Available Sc Only - [facility] [address] [place] [address], 41247, 07/25/2025 20:03:28 07/25/20 25 07/25/2025 CMP sodium 141 mmol/ L 135-14 8 Not Available Sc Only - [facility] [address] [place] [address], 73264, 07/25/2025 20:03:27 07/25/20 25 07/25/2025 CMP potassium 4.4 mmol/ L 3.5-5. 3 Not Available Pr Only - [facility] [address] [place] [address], 20078, 07/25/2025 20:03:27 07/25/20 25 07/25/2025 CMP chloride 106 mmol/ L 96-112 Not Available Pr Only - [facility] [address] [place] [address], 73273, 07/25/2025 20:03:27 07/25/20 25 07/25/2025 CMP CO2 28 mmol/ L 23-33 Not Available Pr Only - [facility] [address] [place] [address], 21228, 07/25/2025 20:03:27 07/25/20 25 07/25/2025 CMP BUN 12 mg/dL 7-18 Not Available Pr Only - [facility] [address] [place] [address], 01880, 07/25/2025 20:03:27 07/25/20 25 07/25/2025 CMP creatinine 0.72 mg/dL 0.55-1 .02 Not Available Pr Only - [facility] [address] [place] [address], 86806, 07/25/2025 20:03:27 07/25/20 25 07/25/2025 CMP glucose 102 mg/dL 65-99 high Not Availabl e Pr Only - [facility] [address] [place] [address], 61004, 07/25/2025 20:03:27 07/25/20 25 07/25/2025 CMP calcium 8.5 mg/dL 8.5-10 .1 Not Available Pr Only - [facility] [address] [place] [address], 89705, 07/25/2025 20:03:27 07/25/20 25 07/25/2025 CMP total protein 6.8 g/dL 6.4-8. 2 Not Available Pr Only - [facility] [address] [place] [address], 78010, 07/25/2025 20:03:27 07/25/20 25 07/25/2025 CMP albumin 3.1 g/dL 3.4-5. 0 low Not Available [facility] [address] [place] [address], 39817, 07/25/2025 20:03:27 07/25/20 25 07/25/2025 CMP bilirubin (total) 0.5 mg/dL 0.2-1. 0 Not Available [facility] - [facility] [address] [place] [address], 38257, 07/25/2025 20:03:27 07/25/20 25 07/25/2025 CMP AST 26 u/L 15-37 Not Available [facility] - [address], 59891, 07/25/2025 20:03:27 07/25/20 25 07/25/2025 CMP alk phos 136 u/L 46-116 high Not Availab le [facility] - [address], 63042, 07/25/2025 20:03:27 07/25/20 25 07/25/2025 CMP ALT 28 u/L 14-59 Not Available [facility] - [address], 26592, 07/25/2025 20:03:27 07/25/20 25 07/25/2025 CMP anion gap 7 mmol/ L 7-16 Not Available [facility] - [address], 82485, 07/25/2025 20:03:27 07/25/20 25 07/25/2025 DBIL bilirubin (direct) 0.06 mg/dL 0.00-0 .20 Not Available [facility] - [facility] [address] [place] [address], 86980, 07/25/2025 20:03:25 07/25/20 25 07/25/2025 CBCW/ DIFF WBC 6.56 x10 3.98-1 0.04 Not Available [facility] Only - [facility] [address] [place] [address], 23627, 07/25/2025 19:47:06 07/25/20 25 07/25/2025 CBCW/ DIFF RBC 3.95 x10 3.93-5 .22 Not Available Sc Only - [facility] [address] [place] [address], 44771, 07/25/2025 19:47:06 07/25/20 25 07/25/2025 CBCW/ DIFF hemoglobin 10.7 g/dL 11.2-1 5.7 low Not Available Sc Only - [facility] [address] [place] [address], [id number], 07/25/2025 19:47:06 07/25/20 25 07/25/2025 CBCW/ DIFF hematocrit 32.8 % 34.1-4 4.9 low Not Available Sc Only - [facility] [address] [place] [address], [id number], 07/25/2025 19:47:06 07/25/20 25 07/25/2025 CBCW/ DIFF MCV 83.0 fL 79.4-9 4.8 Not Available Sc Only - [facility] [address] [place] [address], [id number], 07/25/2025 19:47:06 07/25/20 25 07/25/2025 CBCW/ DIFF MCH 27.1 pg 25.6-3 2.2 Not Available Sc Only - [facility] [address] [place] [address], [id number], 07/25/2025 19:47:06 07/25/20 25 07/25/2025 CBCW/ DIFF MCHC 32.6 g/dL 32.2-3 5.5 Not Available Sc Only - [facility] [address] [place] [address], [id number], 07/25/2025 19:47:06 07/25/20 25 07/25/2025 CBCW/ DIFF rdwcv 12.6 % 11.7-1 4.4 Not Available Sc Only - [facility] [address] [place] [address], [id number], 07/25/2025 19:47:06 07/25/20 25 07/25/2025 CBCW/ DIFF rdwsd 38.0 fL 36.4-4 6.3 Not Available Sc Only - [facility] [address] [place] [address], [id number], 07/25/2025 19:47:06 07/25/20 25 07/25/2025 CBCW/ DIFF platelets 210 x10 182-36 9 Not Available Sc Only - [facility] [address] [place] [address], 81348, 07/25/2025 19:47:06 07/25/20 25 07/25/2025 CBCW/ DIFF MPV 9.2 fL 9.4-12 .3 low Not Available Sc Only - [facility] [address] [place] [address], 34702, 07/25/2025 19:47:06 07/25/20 25 07/25/2025 AUTOD IFF neutrophils 59.8 % 34.0-7 1.1 Not Available Sc Only - [facility] [address] [place] [address], 73626, 07/25/2025 19:47:03 07/25/20 25 07/25/2025 AUTOD IFF lymphocytes 27.4 % 19.3-5 1.7 Not Available Sc Only - [facility] [address] [place] [address], 84867, 07/25/2025 19:47:03 07/25/20 25 07/25/2025 AUTOD IFF monocytes 8.4 % 4.7-12 .5 Not Available Sc Only - [facility] [address] [place] [address], 06495, 07/25/2025 19:47:03 07/25/20 25 07/25/2025 AUTOD IFF eosinophils 3.5 % 0.7-5. 8 Not Available Sc Only - [facility] [address] [place] [address], 06351, 07/25/2025 19:47:03 07/25/20 25 07/25/2025 AUTOD IFF basophils 0.6 % 0.1-1. 2 Not Available Sc Only - [address], 275[address], 07/25/2025 19:47:03 07/25/20 25 07/25/2025 AUTOD IFF imm auto 0.3 % 0.0-1. 5 Not Available Sc Only - [facility] [address] [place] [address], 48284, 07/25/2025 19:47:03 07/25/20 25 07/25/2025 AUTOD IFF NRBC auto 0.0 /100W BC 0.0-0. 2 Not Available Sc Only - [address], 33101, 07/25/2025 19:47:03 07/25/20 25 07/25/2025 AUTOD IFF absolute neutrophils 3.92 x10 1.56-6 .13 Not Available Sc Only - [address], 98375, 07/25/2025 19:47:03 07/25/20 25 07/25/2025 AUTOD IFF absolute lymphocytes 1.80 x10 1.18-3 .74 Not Available Sc Only - [address], 32053, 07/25/2025 19:47:03 07/25/20 25 07/25/2025 AUTOD IFF absolute monocytes 0.55 x10 0.24-0 .36 high Not Available Sc Only - [address], 28558, 07/25/2025 19:47:03 07/25/20 25 07/25/2025 AUTOD IFF absolute eosinophils 0.23 x10 0.04-0 .36 Not Available Sc Only - [facility] [address] [place] [address], 87250, 07/25/2025 19:47:03 07/25/20 25 07/25/2025 AUTOD IFF absolute basophils 0.04 x10 0.01-0 .08 Not Available Pr Only - [facility] [address] [place] [address], 50882, 07/25/2025 19:47:03 07/25/20 25 07/25/2025 AUTOD IFF imm absolute 0.02 x10 0.00-0 .15 Not Available Pr Only - [facility] [address] [place] [address], 60019, 07/25/2025 19:47:03 07/25/20 25 07/25/2025 AUTOD IFF NRBC absolute 0.00 x10 0.00-0 .01 Not Available Pr Only - [facility] [address] [place] [address], 73258, 07/25/2025 19:47:03 07/25/20 25 07/28/2025 C URINE urine culture (new) abnormal Print Date/ Time: 07/28 08:28 PROFESSOR OF FRENCH Patie nt: JANINA WHITE Micro biolo gy - Uroge nital Legen d: c=Cor recte d, F=Res ult Comme nt, S=Idalia cepti ble, I=Int ermed iate, R=Res istan t, N/A=N ot Appli cable PROCE DURE: Urine Cultu re [] ACCES KHALIDA: [id number] SOURC E: Urine BODY SITE: COLLE CTED DATE/ TIME: 07/25 18:20 PROFESSOR OF FRENCH RECEI ELVA DATE/ TIME: 07/25 19:08 PROFESSOR OF FRENCH START DATE/ TIME: 07/25 19:08 PROFESSOR OF FRENCH FREE TEXT SOURC E: FI NAL REPOR TS Final Repor t [] Verif ied Date/ Time: 07/28 08:28 PROFESSOR OF FRENCH 30,00 0 cfu/m l Mixed sanket inclu ding Esche veronika a coli and Strep tococ cus agala ctiae (Grou p B) HI ELIMI NARY REPOR TS Preli minar y Repor t [] Verif ied Date/ Time: 07/27 06:37 PROFESSOR OF FRENCH 30,00 0 cfu/m l Mixed sanekt inclu antonio Esche veronika a coli Preli minar y Repor t [] Verif ied Date/ Time: 07/26 07:58 PROFESSOR OF FRENCH Light growt h-cul ture reinc ubate d. Speci men recei elva after 6pm. Not Available Pr Only - [facility] [address] [place] [address], 24574, 07/28/2025 09:28:39 07/25/2007/27/2025 C URINE urine culture (new) abnormal Print Date/ Time: 07/27 06:37 PROFESSOR OF FRENCH Patie nt: JANINA WHITE P Micro biolo gy - Uroge nital Legen d: c=Cor recte d, F=Res ult Comme nt, S=Idalia cepti ble, I=Int ermed iate, R=Res istan t, N/A=N ot Appli cable PROCE DURE: Urine Cultu re [] ACCES KHALIDA: [id number] SOURC E: Urine BODY SITE: COLLE CTED DATE/ TIME: 07/25 18:20 PROFESSOR OF FRENCH RECEI ELVA DATE/ TIME: 07/25 19:08 PROFESSOR OF FRENCH START DATE/ TIME: 07/25 19:08 PROFESSOR OF FRENCH FREE TEXT SOURC E: HI ELIMI NARY REPOR TS Preli minar y Repor t [] Verif ied Date/ Time: 07/27 06:37 PROFESSOR OF FRENCH 30,00 0 cfu/m l Mixed sanket inclu ding Esche veronika a coli Preli minar y Repor t [] Verif ied Date/ Time: 07/26 07:58 PROFESSOR OF FRENCH Light growt h-cul ture reinc ubate d. Speci men recei elva after 6pm. Not Available Pr Only - [email or web address] [address] [place] [address], 35105, 07/27/2025 07:37:47 07/25/20 25 07/27/2025 C URINE urine culture (new) abnormal Print Date/ Time: 07/27 06:37 PROFESSOR OF FRENCH Patie nt: JUAN WHITEHL EEN P Micro biolo gy - Uroge nital Legen d: c=Cor recte d, F=Res ult Comme nt, S=Idalia cepti ble, I=Int ermed iate, R=Res istan t, N/A=N ot Appli cable PROCE DURE: Urine Cultu re [] ACCES KHALIDA: SOURC E: Urine BODY SITE: COLLE CTED DATE/ TIME: 07/25 18:20 PROFESSOR OF FRENCH RECEI ELVA DATE/ TIME: 07/25 19:08 PROFESSOR OF FRENCH START DATE/ TIME: 07/25 19:08 PROFESSOR OF FRENCH FREE TEXT SOURC E: HI ELIMI NARY REPOR TS Preli minar y Repor t [] Verif ied Date/ Time: 07/27 06:37 PROFESSOR OF FRENCH 30,00 0 cfu/m l Mixed sanket inclu ding Esche veronika a coli Preli minar y Repor t [] Verif ied Date/ Time: 07/26 07:58 PROFESSOR OF FRENCH Light growt h-cul ture reinc ubate d. Speci men recei elva after 6pm. Not Available Pr Only - [facility] [address], [address], 07/27/2025 07:37:43 07/25/20 25 07/26/2025 C URINE urine culture (new) Print Date/ Time: 07/26 07:58 PROFESSOR OF FRENCH Patie nt: JANINA WHITE P Micro biolo gy - Uroge nital Legen d: c=Cor recte d, F=Res ult Comme nt, S=Idalia cepti ble, I=Int ermed iate, R=Res istan t, N/A=N ot Appli cable PROCE DURE: Urine Cultu re [] ACCES KHALIDA: SOURC E: Urine BODY SITE: COLLE CTED DATE/ TIME: 07/25 18:20 PROFESSOR OF FRENCH RECEI ELVA DATE/ TIME: 07/25 19:08 PROFESSOR OF FRENCH START DATE/ TIME: 07/25 19:08 PROFESSOR OF FRENCH FREE TEXT SOURC E: HI ELIMI NARY REPOR TS Preli minar y Repor t [] Verif ied Date/ Time: 07/26 07:58 PROFESSOR OF FRENCH Light growt h-cul ture reinc ubate d. Speci men recei elva after 6pm. Not Available Pr Only - [facility] [address] [place] [address], 96401, 07/26/2025 08:59:00 07/27/20 25 07/29/2025 C URINE urine culture (new) Print Date/ Time: 07/29 06:56 PROFESSOR OF FRENCH Patie nt: ZEKE, JANINA EEN P Micro biolo gy - Uroge nital Legen d: c=Cor recte d, F=Res ult Comme nt, S=Idalia cepti ble, I=Int ermed iate, R=Res istan t, N/A=N ot Appli cable PROCE DURE: Urine Cultu re [] ACCES KHALIDA: [id number] SOURC E: Urine BODY SITE: COLLE CTED DATE/ TIME: 07/27 19:31 PROFESSOR OF FRENCH RECEI ELVA DATE/ TIME: 07/27 20:04 PROFESSOR OF FRENCH START DATE/ TIME: 07/27 20:05 PROFESSOR OF FRENCH FREE TEXT SOURC E: FI NAL REPOR TS Final Repor t [] Verif ied Date/ Time: 07/29 06:56 PROFESSOR OF FRENCH 40,00 0 cfu/m l mixed sanket . HI ELIMI NARY REPOR TS Preli minar y Repor t [] Verif ied Date/ Time: 07/28 06:43 PROFESSOR OF FRENCH 20,00 0 cfu/m l Gram Negat marquis Rods Not Available Pr Only - [facility] [address] [place] [address], 49241, 07/29/2025 07:56:40 07/27/20 25 07/27/2025 UACS color Yellow Not Available Pr Only - [facility] [address] [place] [address], 58827, 07/27/2025 21:03:00 07/27/2007/27/2025 UACS appearance Hazy Not Avail able Pr Only - [facility] [address] [place] [address], 58312, 07/27/2025 21:03:00 07/27/2007/27/2025 UACS specific gravity 1.014 1.003- 1.035 Not Available Pr Only - [facility] [address] [place] [address], 17731, 07/27/2025 21:03:00 07/27/2007/27/2025 UACS pH urine 6.0 5.0-8. [address] [facility] [address] [place] [address], 99327, 07/27/2025 21:03:00 07/27/2007/27/2025 UACS protein Negati ve Not Available [facility] [address] [place] [address], 19421, 07/27/2025 21:03:00 07/27/2007/27/2025 UACS urine glucose Negati ve Not Available [facility] [address] [place] [address], 90532, 07/27/2025 21:03:00 07/27/2007/27/2025 UACS ketones Negati ve Not Available [facility] [address] [place] [address], 40196, 07/27/2025 21:03:00 07/27/2007/27/2025 UACS urine bilirubin Negati ve Not Available Pr Only [facility] [address] [place] [address], 77493, 07/27/2025 21:03:00 07/27/20 25 07/27/2025 UACS urine HGB Negati ve Not Available Pr Only [facility] [address] [place] [address], 75728, 07/27/2025 21:03:00 07/27/2007/27/2025 UACS nitrite Negati ve Not Available Pr Only - [facility] [address] [place] [address], 05151, 07/27/2025 21:03:00 07/27/20 25 07/27/2025 UACS leukocyte esterase 1+ abnormal Not Available Pr Onl y - [facility] [address] [place] [address], 42593, 07/27/2025 21:03:00 07/27/2007/27/2025 UACS urobilinogen Negati ve Refer ence Range : <=1 Not Available [facility] [address] [place] [address], 84428, 07/27/2025 21:03:00 07/27/20 25 07/27/2025 UACS urine WBCs 11-25 abnormal Refer ence Range : <=5 Not Available [facility] [address] [place] [address], 69086, 07/27/2025 21:03:00 07/27/2007/27/2025 UACS urine RBCs 0-2 Refer ence Range : <=[address] [facility] [address] [place] [address], 64834, 07/27/2025 21:03:00 07/27/2007/27/2025 UACS squamous epithelial cells 3+ Refer ence Range : <=3+ Not Available [facility] [address] [place] [address], 75967, 07/27/2025 21:03:00 07/27/2007/27/2025 UACS bacteria 1+ abnormal Refer ence Range : <=Tra ce, Non-C ath Not Available [facility] [address] [place] [address], 45303, 07/27/2025 21:03:00 07/27/20 25 07/27/2025 UACS UA mucous Presen t Not Available Pr Only - [facility] [address] [place] [address], 03091, 07/27/2025 21:03:00 07/27/20 25 07/27/2025 UACS urine ascorbic acid Negati ve Ascor bic acid can inter fere with the detec tion of blood , gluco se, and nitri te. 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 Patie nt: JANINA WHITE P Micro biolo gy - Uroge nital Legen d: c=Cor recte d, F=Res ult Comme nt, S=Idalia cepti ble, I=Int ermed iate, R=Res istan t, N/A=N ot Appli cable PROCE DURE: Urine Cultu re [] ACCES KHALIDA: 228 SOURC E: Urine BODY SITE: COLLE CTED DATE/ TIME: 07/27 19:31 PROFESSOR OF FRENCH RECEI ELVA DATE/ TIME: 07/27 20:04 PROFESSOR OF FRENCH START DATE/ TIME: 07/27 20:05 PROFESSOR OF FRENCH FREE TEXT SOURC E: HI ELIMI NARY REPOR TS Preli minar y Repor t [] Verif ied Date/ Time: 07/28 06:43 PROFESSOR OF FRENCH 20,00 0 cfu/m l Gram Negat marquis Rods Not Available Pr Only - [facility] [address] [place] [address], 02524, 07/28/2025 07:43:27 07/27/20 25 07/27/2025 EGFR eGFR 90 mL/mi n/1.7 3m? This eGFR is calcu [...] prese nt. Not Available Sc Only - [facility] [address] [place] [address], 07038, 07/27/2025 19:05:40 07/27/20 25 07/27/2025 LPSE lipase,serum 21 u/L 16-77 Not Dalila ilable Sc Only - [facility] [address], 194[address], 07/27/2025 19:05:39 07/27/20 25 07/27/2025 LDH LD 150 u/L 81-234 Not Available Sc Only - [facility] [address] [place] [address], 55707, 07/27/2025 19:05:38 07/27/20 25 07/27/2025 CMP sodium 141 mmol/ L 135-14 8 Not Available Sc Only - [facility] [address] [place] [address], 84228, 07/27/2025 19:05:37 07/27/20 25 07/27/2025 CMP potassium 4.4 mmol/ L 3.5-5. 3 Not Available Sc Only - [facility] [address] [place] [address], 19934, 07/27/2025 19:05:37 07/27/20 25 07/27/2025 CMP chloride 105 mmol/ L 96-112 Not Available Sc Only - [facility] [address] [place] [address], 42733, 07/27/2025 19:05:37 07/27/20 25 07/27/2025 CMP CO2 28 mmol/ L 23-33 Not Available Sc Only - [facility] [address] [place] [address], 65519, 07/27/2025 19:05:37 07/27/20 25 07/27/2025 CMP BUN 9 mg/dL 7-18 Not Available Sc Only - [facility] [address] [place] [address], 13132, 07/27/2025 19:05:37 07/27/20 25 07/27/2025 CMP creatinine 0.78 mg/dL 0.55-1 .02 Not Available Pr Only - [facility] [address], 73236, 07/27/2025 19:05:37 07/27/20 25 07/27/2025 CMP glucose 118 mg/dL 65-99 high Not Availabl e Sc Only - [facility] [address], 30735, 07/27/2025 19:05:37 07/27/20 25 07/27/2025 CMP calcium 9.0 mg/dL 8.5-10 .1 Not Available Pr Only - [facility] [address], 68171, 07/27/2025 19:05:37 07/27/20 25 07/27/2025 CMP total protein 7.3 g/dL 6.4-8. 2 Not Available Pr Only - [facility] [address], 12055, 07/27/2025 19:05:37 07/27/20 25 07/27/2025 CMP albumin 3.3 g/dL 3.4-5. 0 low Not Available [facility] Only - [facility] [address], 69685, 07/27/2025 19:05:37 07/27/20 25 07/27/2025 CMP bilirubin (total) 0.6 mg/dL 0.2-1. 0 Not Available Pr Only - [facility] [address] [place] [address], 97065, 07/27/2025 19:05:37 07/27/20 25 07/27/2025 CMP AST 24 u/L 15-37 Not Available Pr Only - [facility] [address] [place] [address], 48056, 07/27/2025 19:05:37 07/27/20 25 07/27/2025 CMP alk phos 151 u/L 46-116 high Not Availab le Pr Only - [facility] [address] [place] [address], 74246, 07/27/2025 19:05:37 07/27/20 25 07/27/2025 CMP ALT 23 u/L 14-59 Not Available Pr Only - [facility] [address] [place] [address], 13328, 07/27/2025 19:05:37 07/27/20 25 07/27/2025 CMP anion gap 8 mmol/ L 7-16 Not Available Pr Only - [facility] [address] [place] [address], 07715, 07/27/2025 19:05:37 07/27/20 25 07/27/2025 DBIL bilirubin (direct) 0.11 mg/dL 0.00-0 .20 Not Available Pr Only - [facility] [address] [place] [address], 66015, 07/27/2025 19:05:36 07/27/20 25 07/27/2025 CBCW/ DIFF WBC 7.72 x10 3.98-1 0.04 Not Available Pr Only - [facility] [address] [place] [address], 73993, 07/27/2025 18:49:57 07/27/20 25 07/27/2025 CBCW/ DIFF RBC 4.21 x10 3.93-5 .22 Not Available Pr Only - [facility] [address] [place] [address], 44111, 07/27/2025 18:49:57 07/27/20 25 07/27/2025 CBCW/ DIFF hemoglobin 11.2 g/dL 11.2-1 5.7 Not Available Sc Only - [facility] [address] [place] [address], 66841, 07/27/2025 18:49:57 07/27/20 25 07/27/2025 CBCW/ DIFF hematocrit 34.6 % 34.1-4 4.9 Not Available Sc Only - [facility] [address] [place] [address], 18836, 07/27/2025 18:49:57 07/27/20 25 07/27/2025 CBCW/ DIFF MCV 82.2 fL 79.4-9 4.8 Not Available Pr Only - [facility] [address] [place] [address], 16230, 07/27/2025 18:49:57 07/27/20 25 07/27/2025 CBCW/ DIFF MCH 26.6 pg 25.6-3 2.2 Not Available Pr Only - [facility] [address] [place] [address], 07871, 07/27/2025 18:49:57 07/27/20 25 07/27/2025 CBCW/ DIFF MCHC 32.4 g/dL 32.2-3 5.5 Not Available Pr Only - [facility] [address] [place] [address], 10251, 07/27/2025 18:49:57 07/27/20 25 07/27/2025 CBCW/ DIFF rdwcv 12.9 % 11.7-1 4.4 Not Available Pr Only - [facility] [address] [place] [address], 36521, 07/27/2025 18:49:57 07/27/20 25 07/27/2025 CBCW/ DIFF rdwsd 38.5 fL 36.4-4 6.3 Not Available Sc Only - [facility] [address] [place] [address], 00138, 07/27/2025 18:49:57 07/27/2007/27/2025 CBCW/ DIFF platelets 249 x10 182-36 9 Not Available Sc Only - [facility] [address] [place] [address], 50249, 07/27/2025 18:49:57 07/27/2007/27/2025 CBCW/ DIFF MPV 9.1 fL 9.4-12 .3 low Not Available [facility] Only - [facility] [address] [place] [address], 80257, 07/27/2025 18:49:57 07/27/2007/27/2025 AUTOD IFF neutrophils 62.0 % 34.0-7 1.1 Not Available Sc Only - [facility] [address] [place] [address], 01842, 07/27/2025 18:49:56 07/27/2007/27/2025 AUTOD IFF lymphocytes 26.3 % 19.3-5 1.7 Not Available Sc Only - [facility] [address] [place] [address], 32342, 07/27/2025 18:49:56 07/27/2007/27/2025 AUTOD IFF monocytes 7.8 % 4.7-12 .5 Not Available Sc Only - [facility] [address] [place] [address], 18172, 07/27/2025 18:49:56 07/27/2007/27/2025 AUTOD IFF eosinophils 3.2 % 0.7-5. 8 Not Available Sc Only - [facility] [address] [place] [address], 84885, 07/27/2025 18:49:56 07/27/2007/27/2025 AUTOD IFF basophils 0.6 % 0.1-1. 2 Not Available Sc Only - [facility] [address] [place] [address], 78070, 07/27/2025 18:49:56 07/27/20 25 07/27/2025 AUTOD IFF imm auto 0.1 % 0.0-1. 5 Not Available Pr Only - [address], 75516, 07/27/2025 18:49:56 07/27/20 25 07/27/2025 AUTOD IFF NRBC auto 0.0 /100W BC 0.0-0. 2 Not Available Pr Only - [address], 17256, 07/27/2025 18:49:56 07/27/20 25 07/27/2025 AUTOD IFF absolute neutrophils 4.78 x10 1.56-6 .13 Not Available Pr Only - [address], 13776, 07/27/2025 18:49:56 07/27/20 25 07/27/2025 AUTOD IFF absolute lymphocytes 2.03 x10 1.18-3 .74 Not Available Pr Only - [address], 43195, 07/27/2025 18:49:56 07/27/20 25 07/27/2025 AUTOD IFF absolute monocytes 0.60 x10 0.24-0 .36 high Not Available Pr Only - [address], 49587, 07/27/2025 18:49:56 07/27/20 25 07/27/2025 AUTOD IFF absolute eosinophils 0.25 x10 0.04-0 .36 Not Available Pr Only - [address], 77353, 07/27/2025 18:49:56 07/27/20 25 07/27/2025 AUTOD IFF absolute basophils 0.05 x10 0.01-0 .08 Not Available Pr Only - [address], 65752, 07/27/2025 18:49:56 07/27/20 25 07/27/2025 AUTOD IFF imm absolute 0.01 x10 0.00-0 .15 Not Available Pr Only - [address], 65635, 07/27/2025 18:49:56 07/27/20 25 07/27/2025 AUTOD IFF NRBC absolute 0.00 x10 0.00-0 .01 Not Available Pr Only - [address], 68666, 07/27/2025 18:49:56 08/03/20 25 08/03/2025 HbA1c (hemo globi n A1c), blood fingerstick A1C endo Not Available Pr Onl [facility] [address] [place] [address], 55835, 08/03/2025 14:23:07 08/03/20 25 08/03/2025 HbA1c (hemo globi n A1c), blood hemoglobin A1C, finger 6.8 %_A1C 4.3 - 5.6 high Not Available Pr Only - [facility] [address] [place] [address], 80389, 08/03/2025 14:23:07 08/03/20 25 08/03/2025 HbA1c (hemo globi n A1c), blood fingerstick estimated ave [address] Not Available Pr Onl y - [facility] [address] [place] [address], 25189, 08/03/2025 14:23:07 08/03/20 25 08/03/2025 LAC lactic acid 0.7 mmol/ L 0.5-2. 0 Not Available Pr Only - [address], 98016, 08/03/2025 21:10:44 08/03/20 25 08/03/2025 PREG SERUM serum test See Note abnormal Weakl y posit marquis resul t obtai tiffanie. There may be very low level s of hCG prese nt, or it could be a false posit marquis due to the prese nce of human anti- mouse antib odies . It is recom nate d that a quant itati ve hCG test be perfo rmed or that testi ng be repea michelle with a new sampl e in 48-72 hours . Not Available [facility] - [facility] [address] [place] [address], 71929, 08/03/2025 18:14:34 08/03/20 25 08/03/2025 EGFR eGFR 93 mL/mi n/1.7 3m? This eGFR is calcu [...] Only - [facility] [address] [place] [address], 10678, 08/03/2025 17:53:04 08/03/20 25 08/03/2025 LPSE lipase,serum 26 u/L 16-77 Not Dalila ilable Sc Only - [facility] [address] [place] [address], 25334, 08/03/2025 17:53:02 08/03/20 25 08/03/2025 CMP sodium 140 mmol/ L 135-14 8 Not Available Pr Only - [facility] [address] [place] [address], 51454, 08/03/2025 17:53:00 08/03/20 25 08/03/2025 CMP potassium 3.9 mmol/ L 3.5-5. 3 Not Available Pr Only - [facility] [address], 64561, 08/03/2025 17:53:00 08/03/20 25 08/03/2025 CMP chloride 103 mmol/ L 96-112 Not Available Pr Only - [facility] [address] [place] [address], 65467, 08/03/2025 17:53:00 08/03/20 25 08/03/2025 CMP CO2 29 mmol/ L 23-33 Not Available Pr Only - [facility] [address] [place] [address], 95648, 08/03/2025 17:53:00 08/03/20 25 08/03/2025 CMP BUN 8 mg/dL 7-18 Not Available Pr Only - [facility] [address] [place] [address], 04717, 08/03/2025 17:53:00 08/03/20 25 08/03/2025 CMP creatinine 0.76 mg/dL 0.55-1 .02 Not Available Pr Only - [facility] [address] [place] [address], 38232, 08/03/2025 17:53:00 08/03/20 25 08/03/2025 CMP glucose 191 mg/dL 65-99 high Not Availabl e Pr Only - [facility] [address] [place] [address], [id number], 08/03/2025 17:53:00 08/03/20 25 08/03/2025 CMP calcium 8.9 mg/dL 8.5-10 .1 Not Available Pr Only - [facility] [address] [place] [address], [id number], 08/03/2025 17:53:00 08/03/20 25 08/03/2025 CMP total protein 7.4 g/dL 6.4-8. 2 Not Available Pr Only - [facility] [address] [place] [address], [id number], 08/03/2025 17:53:00 08/03/20 25 08/03/2025 CMP albumin 3.3 g/dL 3.4-5. 0 low Not Available Pr Only - [facility] [address] [place] [address], [id number], 08/03/2025 17:53:00 08/03/20 25 08/03/2025 CMP bilirubin (total) 0.7 mg/dL 0.2-1. 0 Not Available Pr Only - [facility] [address] [place] [address], [id number], 08/03/2025 17:53:00 08/03/20 25 08/03/2025 CMP AST 26 u/L 15-37 Not Available Pr Only - [facility] [address] [place] [address], [id number], 08/03/2025 17:53:00 08/03/20 25 08/03/2025 CMP alk phos 152 u/L 46-116 high Not Availab le Pr Only - [facility] [address] [place] [address], [id number], 08/03/2025 17:53:00 08/03/20 25 08/03/2025 CMP ALT 26 u/L 14-59 Not Available Pr Only - [facility] [address] [place] [address], [id number], 08/03/2025 17:53:00 08/03/20 25 08/03/2025 CMP anion gap 8 mmol/ L 7-16 Not Available Pr Only - [facility] [address] [place] [address], [address], 08/03/2025 17:53:00 08/03/20 25 08/03/2025 CBCW/ DIFF WBC 7.58 x10 3.98-1 0.04 Not Available Pr Only - [facility] [address] [place] [address], [address], 08/03/2025 17:39:02 08/03/20 25 08/03/2025 CBCW/ DIFF RBC 4.19 x10 3.93-5 .22 Not Available Sc Only - [facility] [address] [place] [address], [address], 08/03/2025 17:39:02 08/03/20 25 08/03/2025 CBCW/ DIFF hemoglobin 11.0 g/dL 11.2-1 5.7 low Not Available Sc Only - [facility] [address] [place] [address], [address], 08/03/2025 17:39:02 08/03/20 25 08/03/2025 CBCW/ DIFF hematocrit 35.0 % 34.1-4 4.9 Not Available Sc Only - [facility] [address] [place] [address], [address], 08/03/2025 17:39:02 08/03/20 25 08/03/2025 CBCW/ DIFF MCV 83.5 fL 79.4-9 4.8 Not Available Sc Only - [facility] [address] [place] [address], [address], 08/03/2025 17:39:02 08/03/20 25 08/03/2025 CBCW/ DIFF MCH 26.3 pg 25.6-3 2.2 Not Available Sc Only - [facility] [address] [place] [address], [address], 08/03/2025 17:39:02 08/03/20 25 08/03/2025 CBCW/ DIFF MCHC 31.4 g/dL 32.2-3 5.5 low Not Available Sc Only - [facility] [address] [place] [address], [address], 08/03/2025 17:39:02 08/03/20 25 08/03/2025 CBCW/ DIFF rdwcv 13.0 % 11.7-1 4.4 Not Available Sc Only - [facility] [address] [place] [address], [address], 08/03/2025 17:39:02 08/03/20 25 08/03/2025 CBCW/ DIFF rdwsd 38.7 fL 36.4-4 6.3 Not Available Sc Only - [facility] [address] [place] [address], [address], 08/03/2025 17:39:02 08/03/20 25 08/03/2025 CBCW/ DIFF platelets 266 x10 182-36 9 Not Available Sc Only - [facility] [address] [place] [address], [address], 08/03/2025 17:39:02 08/03/20 25 08/03/2025 CBCW/ DIFF MPV 9.5 fL 9.4-12 .3 Not Available Sc Only - [facility] [address] [place] [address], [address], 08/03/2025 17:39:02 08/03/20 25 08/03/2025 AUTOD IFF neutrophils 63.1 % 34.0-7 1.1 Not Available Sc Only - [facility] [address] [place] [address], [address], 08/03/2025 17:39:00 08/03/20 25 08/03/2025 AUTOD IFF lymphocytes 24.8 % 19.3-5 1.7 Not Available Sc Only - [facility] [address] [place] [address], [address], 08/03/2025 17:39:00 08/03/20 25 08/03/2025 AUTOD IFF monocytes 8.0 % 4.7-12 .5 Not Available Sc Only - [facility] [address] [place] [address], [address], 08/03/2025 17:39:00 08/03/20 25 08/03/2025 AUTOD IFF eosinophils 3.0 % 0.7-5. 8 Not Available Sc Only - [facility] [address] [place] [address], [address], 08/03/2025 17:39:00 08/03/20 25 08/03/2025 AUTOD IFF basophils 0.8 % 0.1-1. 2 Not Available Sc Only - [address], [address], 08/03/2025 17:39:00 08/03/20 25 08/03/2025 AUTOD IFF imm auto 0.3 % 0.0-1. 5 Not Available Pr Only - [address], [address], 08/03/2025 17:39:00 08/03/20 25 08/03/2025 AUTOD IFF NRBC auto 0.0 /100W BC 0.0-0. 2 Not Available Pr Only - [address], [address], 08/03/2025 17:39:00 08/03/20 25 08/03/2025 AUTOD IFF absolute neutrophils 4.78 x10 1.56-6 .13 Not Available Pr Only - [address], [address], 08/03/2025 17:39:00 08/03/20 25 08/03/2025 AUTOD IFF absolute lymphocytes 1.88 x10 1.18-3 .74 Not Available Pr Only - [address], [address], 08/03/2025 17:39:00 08/03/20 25 08/03/2025 AUTOD IFF absolute monocytes 0.61 x10 0.24-0 .36 high Not Available Sc Only - [facility] [address] [place] [address], [address], 08/03/2025 17:39:00 08/03/20 25 08/03/2025 AUTOD IFF absolute eosinophils 0.23 x10 0.04-0 .36 Not Available Sc Only - [address], [address], 08/03/2025 17:39:00 08/03/20 25 08/03/2025 AUTOD IFF absolute basophils 0.06 x10 0.01-0 .08 Not Available Sc Only - [facility] [address] [place] [address], [address], 08/03/2025 17:39:00 08/03/20 25 08/03/2025 AUTOD IFF imm absolute 0.02 x10 0.00-0 .15 Not Available Sc Only - [facility] [address] [place] [address], [address], 08/03/2025 17:39:00 08/03/20 25 08/03/2025 AUTOD IFF NRBC absolute 0.00 x10 0.00-0 .01 Not Available Pr Only - [facility] [address] [place] [address], [address], 08/03/2025 17:39:00 05/07/20 25 05/07/2025 CT, abdom en + pelvi s, w/o contr ast [facility] [address] [place] [address] Name: TL WHITE Age: 54 : 1970 Exam Date: 2024 ACCESS ION: [id number] BLAISE CALDERA MD: ANKUSH JOEL EXAM: CT of the [...] the subcut aneous as fat of the director of accounting ior abdomi nal wall/u pper glutea l [...] Leonardo FREEDMAN, Shelley Hussein Signed : 17:57 Shelley Patterson MD INTERFACE Pr Only - [facility] [address], [place], [address], 05/07/2025 19:01:25 05/18/[address], abdom en + pelvi s, w/ contr ast [facility] [address] [place]. [address] ------ ---NAM E----- ---- NUMBER SEX AGE ADMIT DISC. XRAY# F/C TYPE RICE JUANBIBIANA EN P [id number] F 54 5 [id number] GIL E/R DATE OF : 1970 M/R# [id number] PH#: [id number] LOCATI ON: TRANSC RIBED: 6:22 CT [place] [address] COMPLE MICHELLE: 4:39 TSY [id number] {REASO N FOR PROCED URE: Abdomi nal [...] 3.5 x 3.1 cm cyst at the [facility] bed. No pyelon ephrit is. No [...] 3.5 x 3.1 cm cyst at the [facility] bed. Electr onical ly Signed By: SHADI Nieto MD , Date/T blayne: 06:22 INTERFACE Sc Only - [facility] [address] , [place], [address], 05/18/2025 07:26:44 05/21/2005/21/2025 imagi ng/di agnos tic resul t No observ ation record ed. [email or web address] [facility] [address], [place], [address], 05/23/2025 13:18:15 05/22/20 25 05/13/2025 US, doppl er echoc ardio gram No observ ation record ed. BARCODE Not Available 2024 16:02:31 05/26/2005/26/2025 D chest 1 view [facility] [address] [place] [address] Name: TL WHITE Age: 54 : 1970 Exam Date: 2024 ACCESS ION: [id number] BLAISE CALDERA MD: ISABELLA GARCES EXAM: Chest single view Date: 2024 05:39 Compar ras: Chest X-ray Octobe r 2023 Histor y: Mervin albrecht compla ins of chest pain and shortn ess of breath starti swetha yester day. Mervin albrecht has a histor y of asthma . [...] Signed : 06:45 Sergo Hebert MD INTERFACE Sc Only - [facility] [address], [place], [address], 05/26/2025 07:48:51 05/26/20 25 05/26/2025 XR, chest , 2 view No observ ation record ed. [facility] (Radiology) [address], [place], [address], 05/26/2025 14:34:26 05/28/20 CT head scan w/o contr ast [facility] [address] [place]. [address] ------ ---NAM E----- ---- NUMBER SEX AGE ADMIT DISC. XRAY# F/C TYPE RICE TL EN P [id number] 4 F 54 5 [id number] GIL E/R DATE OF : 1970 M/R# [id number] PH#: [id number] LOCATI ON: TRANSC RIBED: 14:29 CT HEAD SCAN W/[place] [address] COMPLE MICHELLE: 13:58 TSY [id number] {REASO N FOR PROCED URE: Headac he [...] was dictat ed remote ly by a [facility] Rad[facility] ogist in [place], [place]. Electr onical ly Signed By: MEET BROWN MD , Date/T blayne: 14:29 INTERFACE Pr Only - [facility] [address] , [place], [address], 05/28/2025 15:32:34 05/28/[address], cervi radha spine , w/o contr ast [facility] [address] [place]. [address] ------ ---NAM E----- ---- NUMBER SEX AGE ADMIT DISC. XRAY# F/C TYPE RICE KATHLE EN P [id number] F 54 5 [id number] GIL E/R DATE OF : 1970 M/R# [id number] PH#: [id number] LOCATI ON: TRANSC RIBED: 14:31 CT C-SPIN E [place] [address] COMPLE MICHELLE: 13:58 TSY [id number] {REASO N FOR PROCED URE: Neck Pain [...] was dictat ed remote ly by a [facility] ogist in [place], [place]. Electr onical ly Signed By: MEET BROWN MD , Date/T blayne: 14:31 INTERFACE Sc Only - [facility] [address], [place], [address], 05/28/2025 15:35:09 05/28/[address], thora cic spine , w/o contr ast [facility] [address] [place]. [address] ------ ---NAM E----- ---- NUMBER SEX AGE ADMIT DISC. XRAY# F/C TYPE RICE TL EN P [id number] 4 F 54 5 [id number] GIL E/R DATE OF : 1970 M/R# [id number] PH#: [id number] LOCATI ON: TRANSC RIBED: 14:35 CT THORAC IC SPINE W/O CONTRA [id number] 8 COMPLE MICHELLE: 13:58 TSY [id number] {REASO N FOR PROCED URE: Pain PHYSIC [...] EXAMIN ATION: CT thorac ic spine HISTOR Y:myesha ent compla ins of headac he and [...] was dictat ed remote ly by a [facility] ogist in [place], [place]. Electr onical ly Signed By: MEET BROWN MD , Date/T blayne: 14:35 INTERFACE Sc Only - [facility] [address] [place], [address], 05/28/2025 15:38:22 06/05/20 25 06/03/2024 CT, angio gram, chest , w/ contr ast No observ ation record ed. [email or web address] Not Available 2024 16:05:59 06/07/20 25 06/07/2025 XR, chest , [address] [address] Teleph one Name: TL WHITE 0395Ex am [...] Sc Only - Sc Radiology [address] [facility], [place], [address], 06/08/2025 14:33:15 07/27/20 25 07/27/2025 CT, abdom en + pelvi s, w/ contr ast [facility] [address] [place] [address] Name: TL WHITE Age: 54 : 1970 Exam Date: 2024 ACCESS ION: [id number] ORDERI SWETHA MD: MILE HOLLINGSWORTH EXAMIN ATION: CT ABDOME [...] ing approx imatel y 1.[address] [facility] er. There is no hydron ephros [...] soft tissue nodule s and dystro phic director of accounting ior soft tissue calcif icatio ns, contin [...] Signed : 20:47 Tye hernandez MD, Isabella Hussein INTERFACE Sc Only - [facility] [address] [place] [address], [address], 07/27/2025 21:51:11 08/01/20 25 08/01/2025 imagi ng/kojo griffin tic resul t No observ ation record ed. [email or web address] [facility] [address] [place], [address], 08/01/2025 17:37:33 08/03/20 25 08/03/2025 D abdom en 1 view [facility] [address] [place] [address] Name: TL WHITE Age: 54 : 1970 Exam Date: 2024 ACCESS ION: [id number] ORDERSheron CALDERA MD: BRIDGET BOWLES EXAM: Abdome [...] Juwan Metzger MD INTERFACE Sc Only - [facility] [address] [place] [address], [address], 08/03/2025 21:09:24 Result Notes Documentation Provider Name and Address Organization Details Recorded Time Xr, Chest, 2 View : [place] [address] Name: LETI WHITE Date: 06/07/2025 Age: 54Physician: MD JENSEN JESSICA : 1970Examination: XR CHEST 2 VIEWS EXAMINATION: Chest, 2 view INDICATION: Dyspnea and cough for two months. TECHNIQUE: Frontal and lateral views of the chest obtained. COMPARISON: None FINDINGS: No infiltrate, pleural effusion, or pneumothorax. Normal cardiomediastinal silhouette. No acute osseous finding. IMPRESSION: No acute finding. Electronically signed in PowerScribe by: Vickey Thacker MD on:06/07/2025 3:01 PM cc: Page PAGE 1 of NUMPABook A Boat 1 Carrol Jensen MD [address] [place] [address], [id number] 06/08/2025 12:48:14 Ct, Abdomen + Pelvis, W/ Contrast : [facility] [address] [place] [address] Name: LETI WHITE Age: 54 : 1970 Exam Date: 07/27/2025 ORDERING MD: MILE CRISTOBAL EXAMINATION: CT ABDOMEN/PELVIS WITH CONTRAST COMPARISON: 05/07/25 CT abdomen pelvis without contrast INDICATION: patient Hx: nausea/vomiting and abd pain since Thursday. order Hx: diffuse abd pain History of Surgery: appendix and gallbladder removed. TECHNIQUE: CT of the abdomen and pelvis was performed with IV contrast administration. 100ml of Omnipaque 350 was injected through the lac without evidence of adverse reaction. Automated exposure control was used for dose optimization on this exam. CTDIvol in mGy: 39.12 DLP in mGy-cm: 1887.8. FINDINGS: Lower Chest: The visualized lung bases are clear. The visualized mediastinum demonstrates no large pericardial effusion. The heart is normal in size. Hepatobiliary: The liver is normal in size and contour hepatic steatosis. No focal lesion.. The pancreas is negative. The gallbladder is surgically absent. There is a stable small cystic structure in the area of the gallbladder fossa/biliary region which could represent a seroma or choledochal cyst. There is no biliary duct dilatation. Genitourinary: The adrenal glands are normal. The kidneys enhance symmetrically. Exophytic right lower pole kidney cyst, measuring approximately 1.1 cm in greatest diameter. There is no hydronephrosis. The urinary bladder is under distended. No intraluminal stones or masses are identified. The reproductive organs are unremarkable, uterus removed.. There are multiple pelvic phleboliths. Gastrointestinal: There is no bowel obstruction or bowel wall thickening. The appendix is absent. There is mild colonic diverticulosis without evidence of diverticulitis. Peritoneum: There is no free intraperitoneal air or fluid. Lymphatics: The spleen is normal in size. There is no retroperitoneal or mesenteric lymphadenopathy. There is no pelvic or inguinal lymphadenopathy. Vascular: The abdominal aorta is normal in caliber. Mild prominence of pelvic vascular similar to comparison imaging. Musculoskeletal: Redemonstrated small anterior wall soft tissue nodules and dystrophic posterior soft tissue calcifications, continue to favor sequelae of subcutaneous injection. No acute osseous abnormality or destructive bone lesion is identified. IMPRESSION: There are no acute findings to explain the patient's symptoms. The attending radiologist has reviewed the images and agrees with the content of this report. /ML:ml Final Report Dictated: 27-JUL-25 20:47 Mayuri Tyson MD, RES Signed: 27-JUL-25 20:47 Isabella Sears MD Not Available [facility] 07/27[facility] 21:51:11 Alpha 1 Antitrypsin Mm, Qn, Serum Or Plasma (obs) : This document (1 of 1) was received from [email or web address] on 06/19/2025 through Direct Message along with the following message body content: You have received a 1 page fax at 06/19/2025 7:32:51 PM. * The Caller-ID for this fax is [email or web address]. If you have any questions regarding this message or your service contact Corporate Support: [place] Email: [email or web address] Phone: or Email: [email or web address] Phones: [phone] Thank you for using the [employer] service! [facility] 06/26/2025 16:23:03 Problems Name Problem SNOMED Code Status Onset Date Resolution Date Notes Provider Name and Address Organization Details Recorded Time Migraine 01929764 Active 2020 [facility] 4 17:00:48 Hypertens marquis disorder 94389682 Active 2020 Yolandeher Riley [facility] 4 17:00:48 Atypical squamous cells of undetermi tiffanie significa nce on cervical Papanicol aou smear 720806509 Active 2020 Yolande Riley [facility] 4 17:00:48 Second degree uterine prolapse 8583266 Active 2022 [facility] 4 17:00:48 Chest pain 11704877 Active 2022 KYA PRITCHARD NP [address] [place] [address], [address] , [facility] 5 16:44:36 Preinfarc tion syndrome 4466435 Active 2022 [facility] 4 17:00:48 Coronary arteriosc lerosis 62207992 Active 2023 KYA PRITCHARD NP [address] [place] [address], [address] , [facility] 5 17:10:30 Essential hypertens ion 86663069 Active 2023 KYA PRITCHARD NP [address] [place] [address], [address] , [facility] 5 16:44:21 Hyperchol esterolem ia 78217402 Active 2023 Audrey lam, [facility] 4 16:47:54 Abdominal pain 37193829 Active 2023 Eren Oswald PA-C [address], [place], [address] , [facility] 4 13:05:40 Thoracic radiculop athy 84683160 Active 2023 Kimi Mathis APRN, [employer] [address], [place], [address] , [facility] 4 14:46:37 Cervical radiculop athy 89208304 Active 2023 Kimi Mathis APRN, [employer] [address], [place], [address] , [facility] 4 14:46:47 Lumbar spondylos is 559264761 Active 2023 Pauly Vizcaino MD [address] , [place], [address] , [facility] 5 14:49:06 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 16166345517 9106 Active 2023 following with endocrino logy Pauly Vizcaino MD [address] , [place], [address] , [facility] 5 14:52:00 Spinal arachnoid cyst 230142052 Active 2023 Pauly Vizcaino MD [address], [place], [address] , [facility] 5 14:51:11 Morbid obesity 393026238 Active 2024 Pauly Vizcaino MD [address], [place], [address] , [facility] 5 14:50:22 Gastropar esis syndrome 001724683 Active 2024 Pauly Vizcaino MD [address] [place] [address], [address] , [facility] 5 14:53:47 Gastroeso phageal reflux disease 986406271 Active 2024 Pauly Vizcaino MD [address] [place] [address], [address] , [facility] 5 14:53:56 Dyspnea 360995141 Active 2024 Valeria Baugh, DINKING MACHINE OPERATOR, [employer] [address] [place] [address], [address] , [facility] 5 12:14:35 Pain of left shoulder region Active 2024 Pauly Vizcaino MD [address] [place] [address], [address] , [facility] 5 15:11:16 Bilateral cramp of muscle of lower limbs 31879826408 773539 Active 2024 Pauly Vizcaino MD [address] [place] [address], [address] , [facility] 5 15:12:21 Fibromyal chuck 422477200 Active 2024 Pauly Vizcaino MD [address] [place] [address], [address] , [facility] 5 15:19:57 Recurrent major depressio n in remission 20778902 Active 2024 Pauly Vizcaino MD [address] [place] [address], [address] , [facility] 5 15:24:34 Primary insomnia 6497300 Active 2024 Pauly Vizcaino MD [address] [place] [address], [address] , [facility] 5 15:25:40 Swelling of lower limb 251718013 Active 2024 Pauly Vizcaino MD [address] [place] [address], [address] , [facility] 5 16:16:03 Palpitati ons 79786997 Active 2024 Audrey lam, [facility] 5 16:53:19 Dyspnea on exertion 06465051 Active 2024 KYA PRITCHARD, JOSE G [address] [place] [address], [place], [address] , [facility] 5 17:10:27 Hyperlipi demia 11664503 Active 2024 KYA PRITCHARD, JOSE G [address] [place] [address], [address] , [facility] 5 16:44:26 Edema of lower extremity 207350735 Active 2024 KYA PRITCHARD, JOSE G [address] [place] [address], [place], [address] , [facility] 5 17:34:12 Persisten t depressiv e disorder 8342332200 Active 2024 Melissa Macias PA-C [address] [place] [address], [address] , [facility] 5 11:28:54 Restless legs syndrome 99816467 Active 2024 Melissa Macias PA-C [address] [place] [address], [place], [address] , [facility] 5 11:29:39 Atypical chest pain 793439541 Active 2024 Melissa Macias PA-C [address] [place] [address], [place], [address] , [facility] 5 12:45:48 Anemia 865253567 Active 2024 Valeria Baugh, DINKING MACHINE OPERATOR, [employer] [address] [place] [address] d, [place], [address] , [facility] 5 12:10:45 Acute kidney injury 56628059 Active 2024 Valeria Baugh APRN, [employer] [address] [place] [address], [address] , [facility] 5 12:13:44 Mycosis 2152313 Active 2024 Valeria Baugh APRN, [employer] [address] [place] [address], [address] , [facility] 5 16:49:11 Obstructi ve sleep apnea syndrome 87339797 Active 2024 [facility]ro [facility] 5 16:01:58 Acute urinary tract infection 803457987 Active 2024 Lawrence Grigsby [facility] 5 15:43:42 Alpha-1-a ntitrypsi n deficienc y 43016192 Active 2024 Sindhu Pizarro [facility] 5 16:23:34 Supravent ricular tachycard ia 5517853 Active 2024 KYA PRITCHARD, JOSE G [address] [place] [address], [address] , [facility] 5 16:44:22 Abdominal discomfor t 50999284 Active 2024 Kimi giron [facility] 5 10:28:59 Screening colonosco py Active 2024 Kimi giron [facility] 5 10:34:05 Notes:Some problems listed i n Documents: #[id number], #[id number], #[id number] could not be added to this patient's [...] Name and Address Organization Details Recorded Time 6279758 fentanyl medicatio n headache Not available Not available 10/14/20232012 4337 RxNorm React ion: Heada syeda; Nause a; Vomit ing; Comme nt: React ion Date: 23 Aug 2013 Annot ation s: JUVENCIO SIEGEL 2012 9:08P M Per pt repor t.; ; Brenda Natarajan [facility] 14:41:09 9524741 prochlorp erazine medicatio n anxiety Not available Not available 05/13/20242017 8704 RxNorm Yoli Sohail [facility] 5 11:23:17 2966287 sumatript an medicatio n itching Not available Not available 05/13/20242017 33851 RxNorm Brenda Deraser [facility] 5 14:41:28 0991800 metoclopr amide Not available other Not available Not available 05/13/20242022 6915 RxNorm Brenda Natarajan [facility] 5 14:41:18 2123888 diphenhyd ramine hydrochlo ride medicatio n anxiety rash Not available Not available Not available 05/13/20242017 1362 RxNorm Yoli Sohail [facility] 5 11:23:17 9437250 Duragesic medicatio n headache Not available Not available 06/22/20242012 03956 8 RxNorm React ion: Heada syeda; Nause a; Vomit ing; Comme nt: React ion Date: 23 Aug 2013 Annot ation s: JUVENCIO SIEGEL 2012 9:08P M Per pt repor t.; ; Brenda Natarajan [facility] 5 14:41:05 4200498 Compazine medicatio n other Not available Not available 11/02/202422541 6 RxNorm irrit abili ty Brenda Natarajan [facility] 5 14:41:50 5265823 Imdur medicatio n anxiety insomnia Not available Not available [facility] 05/30/2025 80274 2 RxNorm Melissa Macias PA-C [address] , [place], [address] [place] [address] 5 10:19:27 439057 Biaxin medicatio n nausea Not available Not available 10/12/2023200672 9 RxNorm React ion: Nause a; Not Available [facility] 4 21:45:38 727841 sumatript an succinate medicatio n Not available Not available Not available 10/12/20232006 20249 RxNorm React ion: Short ness of breat h; Arrhy thmia ; Not Available [facility] 4 21:45:39 155295 ciproflox acin hydrochlo ride medicatio n Not available Not available Not available 10/12/20232006 61657 RxNorm React ion: Synco pe; Short ness of breat h; Brenda Natarajan [facility] 5 14:40:56 251380 Demerol medicatio n Not available Not available Not available 10/12/20232008 17929 1 RxNorm Comme nt: Annot ation s: CAM BALATZAR ON 2008 3:38P M NAUSE A; ; [facility] 5 14:40:59 047945 morphine sulfate medicatio n Not available Not available Not available 10/12/20232008 54886 RxNorm Comme nt: Annot ation s: ISAAC Chino BRAND ON 2008 3:39P M NAUSE A; ; [facility] 5 14:41:15 051122 hydromorp basim hydrochlo ride medicatio n Not available Not available Not available 10/12/2023200817 7 RxNorm Comme nt: Tanya abrams s: ISAAC Chino BRAND ON 2008 3:39P M NAUSE A; ; Brenda lam[facility]BS [facility] 14:41:12 Medications Name Sig [...] Available Not Available Not Available Dexcom G7 Top Stitcher USE PER MANUFACT URER DIRECTIO NS active [...] (BMI) Body weight Heart rate Oxygen saturation Systolic And Diastolic Provider Name and Address Organization Details Last Updated DateTime 5 170.18 cm 42.7 kg/m2 361836. 28 g 91 /min 96 % 150/82 mm[Hg] Kate [facility] 15:47:28 Date Recorded Body height Body mass index (BMI) Body weight Heart rate Systolic And Diastolic Provider Name and Address Organization Details Last Updated DateTime 06/07/2025 170.18 cm 42.4 kg/m2 236959.5 3 g 92 /min 126/64 mm[Hg] Lawrence [facility] 06/07/2025 15:10:01 Date Recorded Body height Heart rate Oxygen saturation Body mass index (BMI) Body weight Systolic And Diastolic Provider Name and Address Organization Details Last Updated DateTime 5 170.18 cm 76 /min 97 % 42.9 kg/m2 577868. 31 g 114/62 mm[Hg] Audrey Tirado [facility] 5 16:04:15 Date Recorded Body height Body mass index (BMI) Body weight Heart rate Respiratory rate Oxygen saturation Systolic And Diastolic Provider Name and Address Organization Details Last Updated DateTime 170.18 cm 42.6 kg/m2 477604. 12 g 77 /min 16 /min 96 % 128/64 mm[Hg] Yoli Sauceda [facility] 5 11:22:40 Date Recorded Body height Body mass index (BMI) Body weight Heart rate Oxygen saturation Provider Name and Address Organization Details Last Updated DateTime 08/03/2025 170.18 cm 42.4 kg/m2 095580.5 3 g 108 /min 97 % Emely Dwyeralexander [facility] 5 14:22:27 Social History Question Answer Notes LastModified by [employer] Details LastModified Time Tobacco Smoking Status Never [...] Do You Have A Medical Power Of Supplier Relationship Director? Yes [email or web address] Information not available 06/13/2024 What Was The Date Of Your Most Recent Tobacco Screening? 07/04/2025 [email or web address] Information not available 07/04/2025 What Is Your Relationship Status? [email or web address] Information not available 06/13/2024 Has Tobacco Cessation Counseling Been Provided? Yes [email or web address] Information not available 03/28/2025 On What Date Was Tobacco Cessation Counseling Provided? 03/28/2025 [email or web address] Information not available 03/28/2025 Sex: Unknown Functional Status Question Answer Note LastModified by [employer] Details LastModified Time How many times per [...] Influenza, recombinant, quadrivalent, PF 1 completed Brendaaraseli Deraser [facility] 11/02/2024 14:40:15 Influenza, recombinant, quadrivalent, PF 0 completed Brendaaraseli Deraser [facility] 11/02/2024 14:40:15 zoster recombinant 1 completed Brenda Deraser [facility] 11/02/2024 14:40:15 zoster recombinant 1 completed Brenda Natarajan [facility] 11/02/2024 14:40:15 COVID-19, mRNA, LNP-S, PF, 100 mcg/0.5mL dose or 50 mcg/0.25mL dose 1 completed Brendaaraseli Natarajan [facility] 11/02/2024 14:40:15 COVID-19, mRNA, LNP-S, PF, 100 mcg/0.5mL dose or 50 mcg/0.25mL dose 1 completed Rbendaaraseli Natarajan [facility] 11/02/2024 14:40:15 COVID-19, mRNA, LNP-S, PF, 100 mcg/0.5mL dose or 50 mcg/0.25mL dose 1 completed Brenda Natarajan [facility] 11/02/2024 14:40:15 pneumococcal polysaccharide PPV23 1 completed Brendaaraseli Deraser [facility] 11/02/2024 14:40:15 influenza, unspecified formulation 4 completed Brendaaraseli Natarajan [facility] 11/02/2024 14:40:15 influenza, unspecified formulation 4 [facility] 11/02/2024 14:40:15 influenza, unspecified formulation 3 completed Brendaaraseli Natarajan [facility] 11/02/2024 14:40:15 Tdap 7 completed [facility], [facility] 11/02/2024 14:40:15 Influenza, split virus, trivalent, preservative 1 completed [facility], [facility] 11/02/2024 14:40:15 Influenza, split virus, quadrivalent, PF 7 completed [facility] 11/02/2024 14:40:15 Past Encounters Encounter ID Performer Location Encounter Start Date Encounter Closed Date Diagnosis/Indication Diagnosis SNOMED-CT Code Diagnosis ICD10 Code Diagnosis IMO Codes Diagnosis Note [id number] Drake Mcneal MD [facility] [place] [address] [place] [address] 05/17/2024 13:49:24 05/17/2024 14:46:03 Chest pain 57587391 R07.9 [id number] Eren Oswald PA-C [address] [facility] ([place]) [address] [facility],[address] [place] [address] 06/15/2024 14:10:45 06/15/2024 16:32:35 Abdominal pain 82125216 R10.9 Type 2 osmin betes mellitus 09546254 E11.9 Coronary arteriosclerosis 63380340 I25.10 [id number] Stacey ahmadi MD [address] [facility] ([place]) [address] [place] [address] 06/21/2024 12:42:22 06/21/2024 16:39:19 Thoracic radiculopathy 43310511 M54.14 Cervical radiculopathy 50185964 M54.12 Lumbar spondylosis 58979 0009 M47.896 [id number] Tiffanie Painting APN [facility] ([place]) [address] [place] [address] 07/05/2024 14:39:55 07/05/2024 15:35:42 Neuropathy due to type 2 diabetes mellitus 9329105200 12066 E11.40 Z79.4 08407507 [id number] Stacey ahmadi MD [address] [facility] ([place]) [address] [place] [address] 08/04/2024 12:16:15 08/04/2024 14:29:11 Spinal arachnoid cyst 474946743 G96.198 70967529 [id number] Brenda Marino [facility] ([place]) [address] [place] [address] 08/04/2024 15:26:47 08/04/2024 16:07:31 Type 2 diabetes mellitus 51700887 E11.9 Patient was seen in office for [...] ing of today's education and discussion . [id number] [facility] ([place]) [address] [place] [address] 08/29/2024 14:23:40 08/29/2024 16:23:00 Type 2 diabetes mellitus 83426398 E11.9 Patient came in today for Omnipod [...] then, patient had no questions or concerns. [id number] Pauly Vizcaino MD [facility] ([place]) [facility] [place] [address] 11/02/2024 14:29:38 11/02/2024 15:23:49 Screening mammography 88590475 Z12.31 [id number] History an d physical examination, annual for health maintenance 54537518 Z00.00 5615476 First enco unter by subject 854633232 Z76.89 74259591 Coronary arteriosclerosis 94168491 I25.10 Essential hypertension 87674405 I10 Morbid obesity 066213031 E66.01 28771 Neuropathy due to type 2 diabetes mellitus 4868738386 07963 E11.40 Z79.4 81363861 Spinal arachnoid cyst 25 9480406 G96.198 37799282 Lumbar spondylosis 28208 0009 M47.896 Hypercholesterolemia 136 93901 E78.00 Gastroesop hageal reflux disease 781420577 K21.9 70558840 Dyspnea 250125895 R06.02 72658 Gastropare sis syndrome 339002267 K31.84 720155 Pain of le ft shoulder region 7381107142 M25.512 28569217 Bilateral cramp of muscle of lower limbs 5237330237 4157898 R25.2 50528600 Fibromyalgia 045558703 M 79.7 95869 History of asthma 886008 007 Z87.09 784130 Recurrent major depression in remission 77183002 F33.40 1782519 Primary insomnia 5904426 F51.01 13678 [id number] Pauly Vizcaino MD [facility] ([place]) [address] [place] [address] 12/01/2024 15:54:07 12/01/2024 17:05:19 Dyspnea 973668885 R06.02 41854 Swelling o f lower limb 325635201 M79.89 217743 [id number] Valeria Baugh APRN, [employer] [facility] ([place]) [address] [place] [address] 01/19/2025 11:51:35 01/19/2025 12:27:12 Preprocedural examination done 4164801851 79702 Z01.818 080232 Essential hypertension 27580362 I10 stable Coronary arteriosclerosis 51562055 I25.10 Neuropathy due to type 2 diabetes mellitus 9865248382 E11.40 Z79.4 44030385 [id number] KYA PRITCHARD NP [address] [facility] [facility] ([place]) [address] [place] [address] 02/10/2025 16:21:41 02/10/2025 17:11:25 Palpitations 85885203 R00.2 13614 Dyspnea on exertion 6084 5006 R06.09 128865 Coronary arteriosclerosis 58431595 I25.10 071934 [id number] Tiffanie Painting APN [facility] ([place]) [address] [place] [address] 03/10/2025 11:32:45 03/10/2025 12:00:56 Neuropathy due to type 2 diabetes mellitus 1024700434 10046 E11.40 Z79.4 00788825 [id number] KYA PRITCHARD, JOSE G [address] [facility] ([place]) [address] [place] [address] 03/24/2025 15:57:47 03/24/2025 16:57:04 Coronary arteriosclerosis 47239032 I25.10 763457 Essential hypertension 87243951 I10 59951 Hyperlipidemia 84477153 E78.5 92787436 Dyspnea on exertion 6084 5006 R06.09 435362 Palpitations 63872784 R0 0.2 17148 Chest pain 20367740 R07. 9 53182300 Edema of l ower extremity 604918156 R60.0 7362384 [id number] Melissa Macias PA-C [facility] ([place]) [address] [place] [address] 03/28/2025 10:36:47 05/02/2025 10:01:03 Persistent depressive disorder 4995784183 F34.1 43541909 also anxiety and helps with hot flashes Restless l egs syndrome 68547510 G25.81 61307 Atypical chest pain 1025 54159 R07.89 181836 Hypertensive disorder 38 364268 I10 [id number] Melissa Macias PA-C [facility] ([place]) [address] [place] [address] 04/11/2025 09:16:47 04/11/2025 11:19:07 Primary insomnia 4484262 F51.01 91977 History of migraine 1614 37173 Z86.69 4100587 [id number] Valeria Baugh APRN, DES [facility] ([place]) [address] [place] [address] 04/20/2025 11:18:43 04/20/2025 15:31:32 Anemia 178266319 D64.9 5121983026 Acute kidney injury 1466 9001 N17.9 5011519 Bilateral cramp of muscle of lower limbs 0263062904 6068795 R25.2 93191426 Dyspnea 728725333 R06.00 56508567 [id number] Valeria Baugh APRN, [employer] MECHANIC [facility] ([place]) [address] [place] [address] 04/28/2025 16:03:43 04/28/2025 17:55:49 Acute kidney injury 99584145 N17.9 5820978 Mycosis 1499172 B37.9 652243 Post-disch arge follow-up 299416409 Z09 877694 Bilateral cramp of muscle of lower limbs 6425955164 4696994 R25.2 12525290 Hypercholesterolemia 136 54909 E78.00 [id number] Melissa Macias PA-C [facility] ([place]) [address] [place] [address] 05/30/2025 09:44:32 05/30/2025 14:35:57 Primary insomnia 5700519 F51.01 05074 Dyspnea on exertion 6084 5006 R06.09 176870 Fibromyalgia 489324849 M 79.7 88015 Pain of le ft shoulder region 6205172756 M25.512 58925093 Migraine 64168034 G43.90 9 Obstructiv e sleep apnea syndrome 29359731 G47.33 2560930 [id number] Carrol Jensen MD [facility] ([place]) [address] [facility],[address] [place] [address] 06/05/2025 15:41:18 06/05/2025 16:01:50 Dyspnea 872162616 R06.02 R06.00 52817 [id number] Uncertain as to the etiology of her [...] results of the CT scan performed at [facility] this past spring. Addendum, CTA of the chest from 06/03/2024 at [facility] showed unremarkab le pulmonary findings. She has some scattered linear atelectasi s, no consolidat ion, nodule or fluid. No mediastina l or hilar adenopathy . There was significan t coronary artery disease noted on that study. Obstructiv e sleep apnea syndrome 93222895 G47.33 27243 She has a longstandi ng history of sleep apnea diagnosed about 20 years ago down in [place] at an unknown institutio n. Is not on any treatment at this time. I do suspect she does have significan t sleep apnea that is contributi ng to her symptomato logy and we will get her worked up with a split-nigh t sleep study and trial PAP if positive. [id number] SADE [facility] ([place]) [address] [facility],[address] [place] [address] 06/07/2025 14:55:39 06/07/2025 17:49:29 Acute kidney injury 78472048 N17.9 2651981 [id number] KYA PRITCHARD NP [facility] ([place]) [address] [place] [address] 06/28/2025 15:53:04 06/28/2025 16:23:37 Coronary arteriosclerosis 40774329 I25.10 738978 Supraventr icular tachycardia 2222003 I47.10 96133 Hyperlipidemia 45632341 E78.5 30627224 [id number] Melissa Macias PA-C [facility] ([place]) [address] [place] [address] 07/04/2025 11:15:12 07/04/2025 12:20:08 Primary insomnia 3557894 F51.01 Persistent depressive disorder 6004455118 F34.1 also anxiety and helps with hot flashes Migraine 83670938 G43.90 9 Recurrent major depression in remission 93351846 F33.40 0141411 Hypertensive disorder 38 832868 I10 [id number] [facility] ([place]) [address] [place] [address] 08/03/2025 14:13:01 08/03/2025 14:40:42 Neuropathy due to type 2 diabetes mellitus 5387462722 50436 E11.40 Z79.4 02817630 Health Concerns Section Related Observation LastModified by Organization Detai ls LastModified Time None Recorded Concern Status LastModified by Organization Details LastModified Time None Recorded Advance Directives Directive Y: Payers Insurance Date Sequence Insurance Name Policy Number Policy Garcia Covered Member ID Garcia Member ID Guarantor Name 06/15/2025 1 [facility] (O) [id number] Leit Naomi White [id number] Leti Naomi Zeke 03/22/2024 1 *SELF PAY* Isidro morrissey Naomi Zeke 08/07/2025 2 MEDICAID-OR: [facility] Leti Salgado Zeke [id number] Leti Naomi Zeke 06/15/2025 1 MEDICARE-OR (MEDICARE) Leti White [id number] Leti Naomi Zeke 08/07/2025 1 [facility] (MEDICARE REPLACEMENT/A DVANTAGE - PPO) [id number] Leti Naomi White [id number] Leti Naomi Zeke Notes Date Note Type Note Provider Name and Address Organization Details Recorded Time 5 text/html 54-year-old who comes into pulmonary clinic for evaluation of shortness of breath. She carries a diagnosis of asthma for since her teenage years. She also has a diagnosis of GELACIO. She has not been on a CPAP machine for about 20 years when her sleep apnea was first diagnosed when she was living in [place]. The patient has been hospitalized multiple times for chest pain and shortness of breath. She is was at [facility] multiple times this past spring and did [...] cancer. Patient's sister also has COPD Carrol Jensen MD [address] [place] [address], [phone], [facility] 06/07/2025 13:51:55 5 text/html ROS as noted in the HPI Ms. 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, Colony cell carcinoma of the knee, GERD, gastroparesis, [...] in the hospital in April 2025 at [facility] for cellulitis and received IV vancomycin [...] his . Delia Hall PA-C [address] [place] [address], [phone], [facility] 06/07/2025 16:14:26 5 text/html Leti White is a pleasant 54-year-old [...] echo, 05/10/2024, which showed no evidence of ischemia.IMPRESSION:54-year -old female comes in for a follow-up visit. [...] questions answered.Followup visit in 6 months. KYA PRITCHARD NP [address] [place] [address], [phone], [facility] 06/28/2025 16:45:10 5 text/html Patient here for follow up after starting [id number]-ivka-oek female presents for follow-up on mood, sleep, [...] feeling well. Melissa Macias PA-C [address] [place] [address], [phone], [facility] 07/04/2025 12:17:39 5 text/html Leti White is here today for an endocrine follow up regarding diabetes mellitus type 2 diagnosed in 2004. Sent to endocrine because she would like to get Omnipod.Hemoglobin [id number]: May 6.8%2024: Alvarez 6.9%, Jul 6.8%Prior to pump start:Lantus 80 units at nightHumalog 20 units with meals + SSI 2:50>150 Currently on Omnipod with Dexcom since Aug 2024.Does take HL after meals.Has taken Actos, Januvia, metformin, ByettaDexcom downloaded and reviewed.Average glucose 186GMI 7.8%Standard deviation 5212% Very high38% High50% In range0% Low<1% Very lowPattern: night time highs with episodic highs after meals.DietDoesn't usually eat breakfast or lunch. Might eat peanut butter crackers or pork rinds.Likes to use air fryer- eats meat, pasta, vegetable for dinner.Does drink 1 regular 16oz soda a day.ExerciseHas not been doing exercising. Diabetic complications survey:-Retinopathy: Unsure date of last eye exam. Has eye exam scheduled for Jul 2024, was unable to go. Denies history of diabetic retinopathy.-Neuropathy: Patient denies any history of foot ulcers, nail changes or callus. Does have numbness of feet and occasional tingling. Had been on gabapentin in the past, states she had memory loss and it was discontinued. Symptoms are tolerable at this time.-Nephropathy: Lab from May 2025 Cr 0.9 and GFR 76. May 2025 microalbumin was 14.-Macrovascular complications: Patient does not have history of stroke. History of CAD.-Lipids: Limited medical records. Has history of hyperlipidemia, on atorvastatin.PRIOR MEDICAL ILLNESSES: Type 2 diabetes, depression, hypertension, neuropathy, asthma, hyperlipidemiaSURGICAL HISTORY: Appendectomy, gallbladder, hernia repairSOCIAL HISTORY: Denies use of tobacco products, illicit drugs, or alcohol.FAMILY HISTORY: Mother with lung cancer and diabetes. Father with CT and diabetes. RUDY StapletonN [address] [place] [address], [phone], [facility] 08/03/2025 14:35:18 OBGyn Episode No OBEpisode recorded.
--- OUTSIDE RECORDS SUMMARY | 2025-08-11 13:54 | XMS_ITS ---
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 Code Code System Body Mass Index 43.54 kg/m2 02/28/2025 20:59 Initial 07816 -5 LOINC Systolic Blood Pressure 150 mm[Hg] 02/28/2025 22:07 Most Recent 8480- 6 LOINC Diastolic Blood Pressure 68 mm[Hg] 02/28/2025 22:07 Most Recent 8462- 4 LOINC Systolic Blood Pressure 193 mm[Hg] 02/28/2025 20:59 Initial 8480- 6 LOINC Diastolic Blood Pressure 81 mm[Hg] 02/28/2025 20:59 Initial 8462- 4 LOINC Body Surface Area 2.44 m2 02/28/2025 20:59 Initial 3140- 1 LOINC Height 170.180 0 cm 67.00 in 02/28/2025 20:59 Initial 8302- 2 LOINC O2 Saturation 95 % 2024 22:07 Most Recent 01786 -5 LOINC O2 Saturation 96 % 2024 20:59 Initial 44077 -5 LOINC Pulse 60.0 /min 02/28/2025 22:07 Most Recent 8867- 4 LOINC Pulse 76.0 /min 02/28/2025 20:59 Initial 8867- 4 LOINC Respiration 17 /min 02/29/20 25 22:07 Most Recent 9279- 1 LOINC Respiration 17 /min 02/29/20 20:59 Initial 9279- 1 [facility] Temperature 36.6 Alexandrea 97.8 F 02/29/20 20:59 Initial 8310- 5 [facility] Weight 126.10 kg 278.00 lbs 02/28/2025 20:59 Initial 78091 -7 [facility] Medications Medication Start Date End Date Route Frequency Dose Code Code System Medication Instructions Home Meds Lidoderm 5% Topical application Patch, Extended Release 11/02/2024 02/28/2025 1 6437716 RxNorm 1 patch daily Zofran 4MG Oral Tablet 05/03/2025 Unknown ORAL EVERY 6 HOURS 1 TABLET 865464 RxNorm TAKE 1 TABLET ORAL EVERY 6 [...] Code Code System CHRONIC NECK PAIN active 303788483758 7 SNOMED-CT DISORDER OF ROTATOR CUFF active 598501379 SNOMED-CT SPRAIN OF LEFT SHOULDER active 65771491695797575 SNOMED-CT CHRONIC BACK PAIN active 070580060 SN OMED-CT CHRONIC MIGRAINE active 545842137 SNO MED-CT DIABETES active 40320909 SNOMED-CT GASTROPARESES active 349793041 SNOMED -CT ERIKA CELL NEOPLASM active 248536740 SNOMED-CT HYPERTENSION active 12016353 SNOMED- CT DRUG SEEKING BEHAVIOR active 61445574 SNOMED-CT MALINGERING active 79602305 SNOMED-C 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 10/24/2024 resolved 69165127 SNOMED-CT Allergies and Adverse Reactions Allergy Substance Reaction Severity Start Date Concern Status Code Code System PROCHLORPERAZINE go crazy (SNOMED-CT: null) Severe Active 8704 RxNorm ISOSORBIDE MONONITRATE SOB, anxiety (SNOMED-CT: null) Active 09429 RxNorm CLARITHROMYCIN Vomiting (SNOMED-CT: 959188816) Severe Active 73515 RxNorm BENADRYL went crazy (SNOMED-CT: null) Severe Active 20340118 RxNorm IMITREX Tachycardia (SNOMED-CT: 1953456) Moderate Active 828215 RxNorm Plan of Treatment No Data Found Encounters Encounter Diagnosis Start Date Code Code Sys tem Migraine 02/28/2025 75502916 SNOMED-CT Personal Care Team Section
--- OUTSIDE RECORDS SUMMARY | 2025-08-11 13:54 | XMS_ITS | Continuity of Care Document ---
Author Organization [facility], [facility] 2[facility] ([place]) Address [address] [place] [address] Care Team Providers Care Environmental Department Manager Name Role Phone DRAKE FARRIS Mud Temperer PAULY VIZCAINO Primary Care Provider [phone] PAULY VIZCAINO Referring Provider DELIA HALL Camp Cook Assessment No assessment recorded. Plan of Treatment Reminders Order Date Submit Date Provider Last Modified By Organization Details Last Modified Time Details Appointments Estab judy Brunnere nt 15.ES T 2024 01:30P M Kya Pritchard Not available Not available Not available Estab judy giron Patie nt 15.ES T 2025 02:30P M Delia [...] Not available Pulm Funct ion Metha choli ne.WA O 2025 02:00P M [facility] Not available Not available Not available Estab judy Stoner nt 15.ES T 2025 11:15A M Dr. Carrol Villagomez Not available Not available Not available New Patie nt Visit 10.NE W 2025 11:50A M Dr. Shital Mendes Not available Not available Not available Estab judy giron Patie nt 15.ES T 2025 01:30P M Tiffanie Mert Not available Not available Not available Estab judy giron Patie nt 15.ES T 2025 03:00P M [...] prese nt. Not Available Sc Only - [facility] [address] [place] [address], [address], 05/07/2025 19:09:14 05/07/20 25 05/07/2025 LPSE lipase,serum 33 u/L 16-77 Not Dalila ilable Sc Only - [facility] [address] [place] [address], [address], 05/07/2025 19:09:12 05/07/20 25 05/07/2025 LDH LD 187 u/L 81-234 Not Available Ga Only - [facility] [address], [address], 05/07/2025 19:09:10 05/07/20 25 05/07/2025 CMP sodium 142 mmol/ L 135-14 8 Not Available Ga Only - [facility] [address], [address], 05/07/2025 19:09:09 05/07/20 25 05/07/2025 CMP potassium 4.2 mmol/ L 3.5-5. 3 Not Available Ga Only - [facility] [address], [address], 05/07/2025 19:09:09 05/07/2005/07/2025 CMP chloride 107 mmol/ L 96-112 Not Available Ga Only - [facility] [address] [place] [address], [address], 05/07/2025 19:09:09 05/07/2005/07/2025 CMP CO2 30 mmol/ L 23-33 Not Available Ga Only - [facility] [address], [address], 05/07/2025 19:09:09 05/07/2005/07/2025 CMP BUN 13 mg/dL 7-18 Not Available Ga Only - [facility] [address], [address], 05/07/2025 19:09:09 05/07/2005/07/2025 CMP creatinine 1.16 mg/dL 0.55-1 .02 high Not Available Ga Only - [facility] [address] [place] [address], [address], 05/07/2025 19:09:09 05/07/2005/07/2025 CMP glucose 101 mg/dL 65-99 high Not Availabl e Ga Only - [facility] [address] [place] [address], [address], 05/07/2025 19:09:09 05/07/20 25 05/07/2025 CMP calcium 9.0 mg/dL 8.5-10 .1 Not Available Ga Only - [facility] [address], [address], 05/07/2025 19:09:09 05/07/20 25 05/07/2025 CMP total protein 7.0 g/dL 6.4-8. 2 Not Available Ga Only - [facility] [address] [place] [address], [address], 05/07/2025 19:09:09 05/07/20 25 05/07/2025 CMP albumin 3.1 g/dL 3.4-5. 0 low Not Available Ga Only - [facility] [address] [place] [address], [address], 05/07/2025 19:09:09 05/07/20 25 05/07/2025 CMP bilirubin (total) 0.6 mg/dL 0.2-1. 0 Not Available Ga Only - [facility] [address] [place] [address], [address], 05/07/2025 19:09:09 05/07/20 25 05/07/2025 CMP AST 35 u/L 15-37 Not Available Ga Only - [facility] [address] [place] [address], [address], 05/07/2025 19:09:09 05/07/20 25 05/07/2025 CMP alk phos 159 u/L 46-116 high Not Availab le Ga Only - [facility] [address], [address], 05/07/2025 19:09:09 05/07/20 25 05/07/2025 CMP ALT 38 u/L 14-59 Not Available Ga Only - [facility] [address], [address], 05/07/2025 19:09:09 05/07/20 25 05/07/2025 CMP anion gap 5 mmol/ L 7-16 low Not Available Sc Only - [facility] [address] [place] [address], [address], 05/07/2025 19:09:09 05/07/20 25 05/07/2025 DBIL bilirubin (direct) 0.11 mg/dL 0.00-0 .20 Not Available Sc Only - [facility] [address] [place] [address], [address], 05/07/2025 19:09:08 05/07/20 25 05/07/2025 CBCW/ DIFF WBC 5.83 x10 3.98-1 0.04 Not Available Sc Only - [facility] [address] [place] [address], [address], 05/07/2025 19:09:04 05/07/20 25 05/07/2025 CBCW/ DIFF RBC 3.77 x10 3.93-5 .22 low Not Available Sc Only - [facility] [address] [place] [address], [address], 05/07/2025 19:09:04 05/07/20 25 05/07/2025 CBCW/ DIFF hemoglobin 10.3 g/dL 11.2-1 5.7 low Not Available Sc Only - [facility] [address] [place] [address], [address], 05/07/2025 19:09:04 05/07/20 25 05/07/2025 CBCW/ DIFF hematocrit 32.2 % 34.1-4 4.9 low Not Available Sc Only - [facility] [address] [place] [address], [address], 05/07/2025 19:09:04 05/07/20 25 05/07/2025 CBCW/ DIFF MCV 85.4 fL 79.4-9 4.8 Not Available Sc Only - [facility] [address] [place] [address], [address], 05/07/2025 19:09:04 05/07/20 25 05/07/2025 CBCW/ DIFF MCH 27.3 pg 25.6-3 2.2 Not Available Sc Only - [facility] [address] [place] [address], [address], 05/07/2025 19:09:04 05/07/20 25 05/07/2025 CBCW/ DIFF MCHC 32.0 g/dL 32.2-3 5.5 low Not Available Sc Only - [facility] [address] [place] [address], [address], 05/07/2025 19:09:04 05/07/20 25 05/07/2025 CBCW/ DIFF rdwcv 13.8 % 11.7-1 4.4 Not Available Sc Only - [facility] [address] [place] [address], [address], 05/07/2025 19:09:04 05/07/20 25 05/07/2025 CBCW/ DIFF rdwsd 43.1 fL 36.4-4 6.3 Not Available Sc Only - [facility] [address] [place] [address], [address], 05/07/2025 19:09:04 05/07/20 25 05/07/2025 CBCW/ DIFF platelets 191 x10 182-36 9 Not Available Sc Only - [facility] [address] [place] [address], [address], 05/07/2025 19:09:04 05/07/20 25 05/07/2025 CBCW/ DIFF MPV 10.0 fL 9.4-12 .3 Not Available Sc Only - [facility] [address] [place] [address], [address], 05/07/2025 19:09:04 05/07/20 25 05/07/2025 AUTOD IFF neutrophils 57.2 % 34.0-7 1.1 Not Available Sc Only - [facility] [address] [place] [address], [address], 05/07/2025 19:09:03 05/07/20 25 05/07/2025 AUTOD IFF lymphocytes 25.9 % 19.3-5 1.7 Not Available Sc Only - [facility] [address], [address], 05/07/2025 19:09:03 05/07/20 25 05/07/2025 AUTOD IFF monocytes 11.8 % 4.7-12 .5 Not Available Sc Only - [address], [address], 05/07/2025 19:09:03 05/07/20 25 05/07/2025 AUTOD IFF eosinophils 3.8 % 0.7-5. 8 Not Available Sc Only - [address], [address], 05/07/2025 19:09:03 05/07/20 25 05/07/2025 AUTOD IFF basophils 1.0 % 0.1-1. 2 Not Available Sc Only - [address], [address], 05/07/2025 19:09:03 05/07/20 25 05/07/2025 AUTOD IFF imm auto 0.3 % 0.0-1. 5 Not Available Sc Only - [address], [address], 05/07/2025 19:09:03 05/07/20 25 05/07/2025 AUTOD IFF NRBC auto 0.0 /100W BC 0.0-0. 2 Not Available Sc Only - [address], [address], 05/07/2025 19:09:03 05/07/20 25 05/07/2025 AUTOD IFF absolute neutrophils 3.33 x10 1.56-6 .13 Not Available Ga Only - [address], [address], 05/07/2025 19:09:03 05/07/20 25 05/07/2025 AUTOD IFF absolute lymphocytes 1.51 x10 1.18-3 .74 Not Available Sc Only - [address], [address], 05/07/2025 19:09:03 05/07/20 25 05/07/2025 AUTOD IFF absolute monocytes 0.69 x10 0.24-0 .36 high Not Available Ga Only - [facility] [address] [place] [address], [address], 05/07/2025 19:09:03 05/07/20 25 05/07/2025 AUTOD IFF absolute eosinophils 0.22 x10 0.04-0 .36 Not Available Ga Only - [facility] [address] [place] [address], [address], 05/07/2025 19:09:03 05/07/20 25 05/07/2025 AUTOD IFF absolute basophils 0.06 x10 0.01-0 .08 Not Available [facility] - [address], [address], 05/07/2025 19:09:03 05/07/20 25 05/07/2025 AUTOD IFF imm absolute 0.02 x10 0.00-0 .15 Not Available [facility] - [address], [address], 05/07/2025 19:09:03 05/07/20 25 05/07/2025 AUTOD IFF NRBC absolute 0.00 x10 0.00-0 .01 Not Available [facility] - [address], [address], 05/07/2025 19:09:03 05/07/20 25 05/09/2025 C URINE [...] CTED DATE/ TIME: 2024 17:03 CDT RECEI MOLLY DATE/ TIME: 2024 17:22 CDT START DATE/ TIME: 2024 17:22 CDT FREE TEXT SOURC E: FI NAL REPOR TS Final Repor t [] Verif ied Date/ Time: 2024 07:42 CDT 40,00 0 cfu/m l Mixed presu mptiv e and Prote us speci es WA ELIMI NARY REPOR TS Preli minar y Repor t [] Verif ied Date/ Time: 2024 08:17 CDT 40,00 0 cfu/m l Mixed presu mptiv e and Prote us speci es Not Available Sc Only - [facility] [address] [place] [address], [address], 05/09/2025 08:43:01 05/07/20 25 05/07/2025 UACS color Pauline Not Available Sc Only - [facility] [address] [place] [address], [address], 05/07/2025 19:09:16 05/07/2005/07/2025 UACS appearance Clear Not Avail able Sc Only - [facility] [address] [place] [address], [address], 05/07/2025 19:09:16 05/07/2005/07/2025 UACS specific gravity 1.016 1.003- 1.035 Not Available Sc Only - [facility] [address] [place] [address], [address], 05/07/2025 19:09:16 05/07/2005/07/2025 UACS pH urine 6.0 5.0-8. 0 Not Available Sc Only - [facility] [address] [place] [address], [address], 05/07/2025 19:09:16 05/07/20 25 05/07/2025 UACS protein 1+ abnormal Not Availa ble Ga Only - [facility] [address] [place] [address], [address], 05/07/2025 19:09:16 05/07/2005/07/2025 UACS urine glucose Negati ve Not Available [facility] - [facility] [address] [place] [address], [address], 05/07/2025 19:09:16 05/07/20 25 05/07/2025 UACS ketones Negati ve Not Available [facility] [address], [address], 05/07/2025 19:09:16 05/07/2005/07/2025 UACS urine bilirubin Negati ve Not Available [facility] [address], [address], 05/07/2025 19:09:16 05/07/20 25 05/07/2025 UACS urine HGB 1+ abnormal Not Avai lable [facility] [address], [address], 05/07/2025 19:09:16 05/07/2005/07/2025 UACS nitrite Positi ve abnormal Not Available [facility] [address], [address], 05/07/2025 19:09:16 05/07/2005/07/2025 UACS leukocyte esterase 1+ abnormal Not Available Ga On y - [facility] [address], [address], 05/07/2025 19:09:16 05/07/2005/07/2025 UACS urobilinogen >=4.0 abnormal Refer ence Range : <=1 Not Available [facility] [address] [place] [address], [address], 05/07/2025 19:09:16 05/07/20 25 05/07/2025 UACS urine WBCs 26-50 abnormal Refer ence Range : <=5 Not Available [address], [address], 05/07/2025 19:09:16 05/07/20 25 05/07/2025 UACS urine RBCs 3-5 abnormal Refer ence Range : <=2 Not Available [address], [address], 05/07/2025 19:09:16 05/07/20 25 05/07/2025 UACS squamous epithelial cells 3+ Refer ence Range : <=3+ Not Available [address], [address], 05/07/2025 19:09:16 05/07/20 25 05/07/2025 UACS bacteria Trace abnormal Refer ence Range : <=Tra ce, Non-C ath Not Available [address], [address], 05/07/2025 19:09:16 05/07/20 25 05/07/2025 UACS transitional epithelial cells Few Refer ence Range : <=2+ Not Available [address], [address], 05/07/2025 19:09:16 05/07/20 25 05/07/2025 UACS hyaline casts 1 /lpf 0-2 Not Available Ga Onl y [facility] [address] [place] [address], [address], 05/07/2025 19:09:16 05/07/20 25 05/07/2025 UACS UA mucous Presen t Not Available [address], [address], 05/07/2025 19:09:16 05/07/20 25 05/07/2025 UACS urine ascorbic acid Negati ve Ascor bic acid can inter fere with the detec tion of blood , gluco se, and nitri te. Not Available Ga Only - [facility] [address] [place] [address], [address], 05/07/2025 19:09:16 05/07/20 25 05/08/2025 C URINE [...] CTED DATE/ TIME: 2024 17:03 CDT RECEI MOLLY DATE/ TIME: 2024 17:22 CDT START DATE/ TIME: 2024 17:22 CDT FREE TEXT SOURC E: WA ELIMI NARY REPOR TS Preli minar y Repor t [] Verif ied Date/ Time: 2024 08:17 CDT 40,00 0 cfu/m l Mixed presu mptiv e and Prote us speci es Not Available Ga Only - [facility] [address] [place] [address], [address], 05/08/2025 09:17:23 05/18/20 25 05/18/2025 LIPAS E lipase 33 U/L 8 - 57 Not Available Ga Only - [facility] [address] [place], [address], 05/18/2025 06:33:26 05/18/20 25 05/18/2025 COMPL ETE METAB OLIC PANEL sodium 142 mmol/ L 136 - 145 Not Available Ga Only - [facility] [address] [place], [address], 05/18/2025 06:33:22 05/18/20 25 05/18/2025 COMPL ETE METAB OLIC PANEL potassium 3.6 mmol/ L 3.5 - 5.1 Not Available Ga Only - [facility] [address] [place], [address], 05/18/2025 06:33:22 05/18/20 25 05/18/2025 COMPL ETE METAB OLIC PANEL chloride 111 mmol/ L 98 - 107 high Not Available [facility] [address] [place], [address], 05/18/2025 06:33:22 05/18/20 25 05/18/2025 COMPL ETE METAB OLIC PANEL CO2 24 mmol/ L 22 - 28 Not Available Ga Only - [facility] [address] [place], [address], 05/18/2025 06:33:22 05/18/20 25 05/18/2025 COMPL ETE METAB OLIC PANEL glucose 132 mg/dL 70 - 105 high Not Available [facility] [address] [place], [address], 05/18/2025 06:33:22 05/18/20 25 05/18/2025 COMPL ETE METAB OLIC PANEL BUN 16 mg/dL 7 - 18 Not Available Ga Only - [facility] [address] [place], [address], 05/18/2025 06:33:22 05/18/2005/18/2025 COMPL ETE METAB OLIC PANEL creatinine 0.82 mg/dL 0.44 - 1.24 Not Available Ga Only - [facility] [address] [place], [address], 05/18/2025 06:33:22 05/18/20 25 05/18/2025 COMPL ETE METAB OLIC PANEL total protein 6.4 g/dL 6.0 - 8.3 Not Available Ga Only - [facility] [address] [place], [address], 05/18/2025 06:33:22 05/18/20 25 05/18/2025 COMPL ETE METAB OLIC PANEL albumin 3.4 g/dL 3.5 - 5.0 low Not Available Ga Only - [facility] [address] [place], [address], 05/18/2025 06:33:22 05/18/20 25 05/18/2025 COMPL ETE METAB OLIC PANEL T bilirubin 0.5 mg/dL 0.2 - 1.0 Not Available Ga Only - [facility] [address] [place], [address], 05/18/2025 06:33:22 05/18/20 25 05/18/2025 COMPL ETE METAB OLIC PANEL SGPT 20 IU/L 10 - 40 Not Available Ga Only - [facility] [address] [place], [address], 05/18/2025 06:33:22 05/18/20 25 05/18/2025 COMPL ETE METAB OLIC PANEL alk phos 127 IU/L 32 - 92 high Not Available Ga Only - [facility] [address] [place], [address], 05/18/2025 06:33:22 05/18/20 25 05/18/2025 COMPL ETE METAB OLIC PANEL SGOT 23 IU/L 10 - 42 Not Available Ga Only - [facility] [address] [place], [address], 05/18/2025 06:33:22 05/18/20 25 05/18/2025 COMPL ETE METAB OLIC PANEL calcium 9.0 mg/dL 8.4 - 10.2 Not Available Ga Only - [facility] [address] [place], [address], 05/18/2025 06:33:22 05/18/20 25 05/18/2025 COMPL ETE METAB OLIC PANEL age 54 yr Not Available Ga Only - [facility] [address] [place], [address], 05/18/2025 06:33:22 05/18/20 25 05/18/2025 COMPL ETE [...] Sc Only - [facility] [address] [place], [address], 05/18/2025 06:33:22 05/18/20 25 05/18/2025 CBC-C OMPLE TE WBC 7.0 10^3u L 4.0 - 10.8 Not Available Sc Only - [facility] [address] [place], [address], 05/18/2025 06:15:17 05/18/2005/18/2025 CBC-C OMPLE TE RBC 3.67 10^6u L 3.80 - 5.20 low Not Available Sc Only - [facility] [address] [place], [address], 05/18/2025 06:15:17 05/18/20 25 05/18/2025 CBC-C OMPLE TE hemoglobin 10.2 g/dL 11.7 - 16.0 low Not Available Sc Only - [facility] [address] [place], [address], 05/18/2025 06:15:17 05/18/20 25 05/18/2025 CBC-C OMPLE TE hematocrit 30.4 % 35.0 - 47.0 low Not Available Ga Only - [facility] [address] [place], [address], 05/18/2025 06:15:17 05/18/2005/18/2025 CBC-C OMPLE TE MCV 83 fL 80 - 100 Not Available Ga Only - [facility] [address] [place], [address], 05/18/2025 06:15:17 05/18/20 25 05/18/2025 CBC-C OMPLE TE MCH 28 pg 28 - 33 Not Available Ga Only - [facility] [address] [place], [address], 05/18/2025 06:15:17 05/18/2005/18/2025 CBC-C OMPLE TE MCHC 34 g/dL 32 - 36 Not Available Ga Only - [facility] [address] [place], [address], 05/18/2025 06:15:17 05/18/20 25 05/18/2025 CBC-C OMPLE TE RDW 15.0 % 11.5 - 15.5 Not Available Ga Only - [facility] [address] [place], [address], 05/18/2025 06:15:17 05/18/2005/18/2025 CBC-C OMPLE TE platelet 204 10^3u L 140 - 440 Not Available Ga Only - [facility] [address] [place], [address], 05/18/2025 06:15:17 05/18/2005/18/2025 CBC-C OMPLE TE MPV 7.4 fL 7.5 - 11.0 low Not Available Ga Only - [facility] [address] [place], [address], 05/18/2025 06:15:17 05/18/20 25 05/18/2025 CBC-C OMPLE TE %neutrophils 53.2 % 40.0 - 75.0 Not Available Ga Only - [facility] [address] [place], [address], 05/18/2025 06:15:17 05/18/2005/18/2025 CBC-C OMPLE TE %lymphocytes 31.5 % 15.0 - 45.0 Not Available Ga Only - [facility] [address] [place], [address], 05/18/2025 06:15:17 05/18/2005/18/2025 CBC-C OMPLE TE %monocytes 11.0 % 2.0 - 12.0 Not Available Ga Only - [facility] [address] [place], [address], 05/18/2025 06:15:17 05/18/2005/18/2025 CBC-C OMPLE TE %eosinophils 2.9 % 0.0 - 5.0 Not Available Ga Only - [facility] [address] [place], [address], 05/18/2025 06:15:17 05/18/2005/18/2025 CBC-C OMPLE TE %basophils 1.4 % 0.0 - 2.0 Not Available Ga Only - [facility] [address] [place], [address], 05/18/2025 06:15:17 05/18/2005/18/2025 CBC-C OMPLE TE neutrophil 3.8 10^3/ uL 1.7 - 7.0 Not Available Ga Only - [facility] [address] [place], [address], 05/18/2025 06:15:17 05/18/2005/18/2025 CBC-C OMPLE TE lymphocyte 2.2 10^3/ uL 0.9 - 3.7 Not Available Ga Only - [facility] [address] [place], [address], 05/18/2025 06:15:17 05/18/2005/18/2025 CBC-C OMPLE TE monocyte 0.8 10^3/ uL 0.2 - 0.8 Not Available Ga Only - [facility] [address] [place], [address], 05/18/2025 06:15:17 05/18/2005/18/2025 CBC-C OMPLE TE eosinophil 0.2 10^3/ uL 0.0 - 0.5 Not Available [facility] [address] [place] [address], [address], 05/18/2025 06:15:17 05/18/2005/18/2025 CBC-C OMPLE TE basophil 0.1 10^3/ uL 0.0 - 0.2 Not Available [facility] [address] [place] [address], [address], 05/18/2025 06:15:17 05/18/2005/18/2025 CBC-C OMPLE TE mdw 16.12 0.00 - 20.00 {CD] Not Available Ga Only - [facility] [address] [place] [address], [address], 05/18/2025 06:15:17 05/18/2005/18/2025 CBC-C OMPLE TE manual diff NOT INDICA MICHELLE Not Available Sc Only - [facility] [address] [place] [address], [address], 05/18/2025 06:15:17 05/18/2005/18/2025 LACTI C ACID lactic acid 1.05 mmol/ L 0.50 - 2.20 Not Available Ga Only - [facility] [address] [place] [address], [address], 05/18/2025 06:12:25 05/18/20 25 05/21/2025 CULTU RE/UR INE results _CULT URE URINE _ Not Available [facility] [address] [place] [address], [address], 05/21/2025 08:28:50 05/18/2005/21/2025 CULTU RE/UR INE final report CLEAN CATCH SPECIM EN _>100 ,000_ cfu/m l____ ___ 05/21.0 727.C ML. _MIXE D_GRA M_POS ITIVE _AND_ NEGAT IVE_F LORA_ ___ 05/21.0 727.C ML. SET PREDO MINAN T ORGAN ISMS Micro biolo gy Not Available Ga Only - [facility] [address] [facility], [place], [address], 05/21/2025 08:28:50 05/18/20 25 05/21/2025 CULTU RE/UR INE results Speci [place] Sourc e [id number] 0001 Colle ction Date 05/18 Colle ction Time 04:42 Speci men Note: Recei [place] Date [place]am Id. No: [id number] Exam Statu s Compl etion Date 05/20 Compl etion Time 20:52 Organ ism # 1: Esche scott a coli (escc ol) 100 [...] PREDO MINAN T ORGAN ISMS Not Available Ga Only - [facility] [address] [place], [address], 05/21/2025 08:28:50 05/18/2005/18/2025 URINA LYSIS color YELLOW normal : yellow Not Available Ga Only - [facility] [address] [place], [address], 05/18/2025 06:03:49 05/18/2005/18/2025 URINA LYSIS character HAZY normal : clear Not Available Ga Only - [facility] [address] [place], [address], 05/18/2025 06:03:49 05/18/2005/18/2025 URINA LYSIS spec. grav 1.015 normal : 1.003- 1.029 Not Available Ga Only - [facility] [address] [place], [address], 05/18/2025 06:03:49 05/18/2005/18/2025 URINA LYSIS pH 7.0 normal : 4.5 - 7.8 Not Available [facility] Only - [facility] [address] [place], [address], 05/18/2025 06:03:49 05/18/2005/18/2025 URINA LYSIS leukocytes 2+ normal : negati ve Not Available [facility] Only - [facility] [address] [place], [address], 05/18/2025 06:03:49 05/18/2005/18/2025 URINA LYSIS nitrite NEGATI VE normal : negati ve Not Available [facility] Only - [facility] [address] [place], [address], 05/18/2025 06:03:49 05/18/20 25 05/18/2025 URINA LYSIS protein NEGATI VE normal : negati ve Not Available [facility] Only - [facility] [address] [place], [address], 05/18/2025 06:03:49 05/18/20 25 05/18/2025 URINA LYSIS glucose NEGATI VE normal : negati ve Not Available [facility] Only - [facility] [address] [place], [address], 05/18/2025 06:03:49 05/18/20 25 05/18/2025 URINA LYSIS ketones NEGATI VE normal : negati ve Not Available Ga Only - [facility] [address] [place], [address], 05/18/2025 06:03:49 05/18/20 25 05/18/2025 URINA LYSIS urobilinogen 0.2 normal : 0.2 - 1.0 Not Available Ga Only - [facility] [address] [place], [address], 05/18/2025 06:03:49 05/18/2005/18/2025 URINA LYSIS bilirubin NEGATI VE normal : negati ve Not Available Ga Only - [facility] [address] [place], [address], 05/18/2025 06:03:49 05/18/2005/18/2025 URINA LYSIS blood NEGATI VE normal : negati ve MICRO SCOPI C Not Available Ga Only - [facility] [address] [place], [address], 05/18/2025 06:03:49 05/18/2005/18/2025 URINA LYSIS WBC/hpf 20-30 normal : 0-5 hpf CULTU RE TO FOLLO W PER [place] [place] Not Available Ga Only - [facility] [address] [place], [address], 05/18/2025 06:03:49 05/18/20 25 05/18/2025 URINA LYSIS RBC/hpf 5-10 normal : 0-3 hpf Not Available Ga Only - [facility] [address] [place], [address], 05/18/2025 06:03:49 05/18/20 25 05/18/2025 URINA LYSIS epith/hpf 30-50 normal : 0-5 hpf Not Available Sc Only - [facility] [address] [place], [address], 05/18/2025 06:03:49 05/18/20 25 05/18/2025 URINA LYSIS cast/lpf NONE SEEN normal : 0-4 lpf Not Available Sc Only - [facility] [address] [place], [address], 05/18/2025 06:03:49 05/18/20 25 05/18/2025 URINA LYSIS crystals NONE SEEN normal : negati ve Not Available Ga Only - [facility] [address] [place], [address], 05/18/2025 06:03:49 05/18/20 25 05/18/2025 URINA LYSIS bacteria 1+ normal : negati ve abnormal Not Available Ga Only - [facility] [address] [place], [address], 05/18/2025 06:03:49 05/18/20 25 05/18/2025 URINA LYSIS other MUCUS 1+ Not Available Sc Only - [facility] [address] [place], [address], 05/18/2025 06:03:49 05/26/20 25 05/26/2025 UACS color Yellow Not Available Ga Only - [facility] [address] [place] [address], [address], 05/26/2025 09:18:45 05/26/20 25 05/26/2025 UACS appearance Clear Not Avail able Sc Only - [facility] [address] [place] [address], [address], 05/26/2025 09:18:45 05/26/20 25 05/26/2025 UACS specific gravity 1.013 1.003- 1.030 Not Available Ga Only - [facility] [address] [place] [address], [address], 05/26/2025 09:18:45 05/26/20 25 05/26/2025 UACS pH urine 6.0 4.5-7. 5 Not Available Ga Only - [facility] [address], [address], 05/26/2025 09:18:45 05/26/20 25 05/26/2025 UACS protein 30 abnormal Not Availa ble [facility] [address] [place] [address], [address], 05/26/2025 09:18:45 05/26/20 25 05/26/2025 UACS urine glucose Negati ve Not Available [facility] [address] [place] [address], [address], 05/26/2025 09:18:45 05/26/20 25 05/26/2025 UACS ketones Negati ve Not Available [facility] [address] [place] [address], [address], 05/26/2025 09:18:45 05/26/20 25 05/26/2025 UACS urine bilirubin Negati ve Not Available [facility] [address] [place] [address], [address], 05/26/2025 09:18:45 05/26/20 25 05/26/2025 UACS urine HGB Negati ve Not Available [facility] [address] [place] [address], [address], 05/26/2025 09:18:45 05/26/20 25 05/26/2025 UACS nitrite Negati ve Not Available [facility] [address] [place] [address], [address], 05/26/2025 09:18:45 05/26/20 25 05/26/2025 UACS leukocyte esterase Large abnormal Not Available Ga On y - [facility] [address] [place] [address], [address], 05/26/2025 09:18:45 05/26/20 25 05/26/2025 UACS urobilinogen Normal Not Dalila ilable Ga Only - [facility] [address] [place] [address], [address], 05/26/2025 09:18:45 05/26/20 25 05/26/2025 UACS urine WBCs 10 /hpf 0-4 high Not Avail able Ga Only - [facility] [address] [place] [address], [address], 05/26/2025 09:18:45 05/26/20 25 05/26/2025 UACS urine RBCs 1 /hpf 0-2 Not Avail able Ga Only - [facility] [address] [place] [address], [address], 05/26/2025 09:18:45 05/26/20 25 05/26/2025 UACS squamous epithelial cells 6 /hpf 0-5 high [facility] [address] [place] [address], [address], 05/26/2025 09:18:45 05/26/20 25 05/26/2025 UACS bacteria Occasi onal abnormal Not Available Ga Only - [facility] [address] [place] [address], [address], 05/26/2025 09:18:45 05/26/20 25 05/26/2025 UACS transitional epithelial cells 1 /hpf 0-1 Not Available [facility] [address] [place] [address], [address], 05/26/2025 09:18:45 05/26/20 25 05/27/2025 C URINE [...] CTED DATE/ TIME: 2024 05:28 CDT RECEI MOLLY DATE/ TIME: 2024 09:13 CDT START DATE/ TIME: 2024 09:13 CDT FREE TEXT SOURC E: FI NAL REPOR TS Final Repor t [] Verif ied Date/ Time: 2024 13:07 CDT Moder ate proba ble conta minan ts inclu din,00 0 cfu/m l Prote us speci es A low count of this bacte rium is repor michelle becau se a Posit jozef leuko cyte zohra ase has been noted . Pleas e notif y a Micro biolo gist if furth er work- up is neede d. Not Available Ga Only - [facility] [address] [place] [address], [address], 05/27/2025 14:07:20 05/26/20 25 05/26/2025 BN PEPTI DE BNP 18 pg/mL 0-72 Not Available Ga Only - [facility] [address] [place] [address], [address], 05/26/2025 08:08:43 05/26/20 25 05/26/2025 DIMER D-dimer test 0.45 mcg/m L <=0.50 D-Dim ers are the resul t of fibri nolyt ic break down of cross -link ed fibri n. [place] tions indic ate incre ased fibri nolys is and are non-s pecif ic. Resul ts shoul d be used in conju nctio n with algor ithms for prete st proba bilit y of a throm botic event . A value of less than 0.50 mcg/m L in conju nctio n with a low clini radha proba bilit y has >95% negat jozef predi ctive value . Luzmaria l value s in situa tions of moder ate or high clini radha proba bilit y shoul d be inter prete d with cauti on. mcg/m L = fibri nogen equiv alent units (feu) Not Available Sc Only - [facility] [address] [place] [address], [address], 05/26/2025 07:28:09 05/26/2005/26/2025 HSTRO P high sensitivity [...] calcu late the delta . Not Available Ga Only - [facility] [address] [place] [address], [address], 05/26/2025 07:13:31 05/26/2005/26/2025 EGFR eGFR 54 mL/mi [...] se(CK D) is prese nt. Not Available Ga Only - [facility] [address] [place] [address], [address], 05/26/2025 07:10:12 05/26/2005/2605/26/2025 MG magnesium 1.8 mg/dL 1.9-2. 7 low Not Available Ga Only - [facility] [address] [place] [address], [address], 05/26/2025 07:10:11 05/26/2005/26/2025 CMP sodium 137 mmol/ L 136-14 5 Not Available Ga Only - [facility] [address] [place] [address], [address], 05/26/2025 07:10:10 05/26/2005/26/2025 CMP potassium 3.9 mmol/ L 3.5-5. 1 Not Available Ga Only - [facility] [address], [address], 05/26/2025 07:10:10 05/26/2005/26/2025 CMP chloride 104 mmol/ L 98-107 Not Available Ga Only - [facility] [address] [place] [address], [address], 05/26/2025 07:10:10 05/26/20 25 05/26/2025 CMP CO2 24 mmol/ L 21-31 Not Available Ga Only - [facility] [address] [place] [address], [address], 05/26/2025 07:10:10 05/26/2005/26/2025 CMP BUN 19 mg/dL 7-25 Not Available Ga Only - [facility] [address] [place] [address], [address], 05/26/2025 07:10:10 05/26/20 25 05/26/2025 CMP creatinine 1.2 mg/dL 0.6-1. 3 Not Available Ga Only - [facility] [address] [place] [address], [address], 05/26/2025 07:10:10 05/26/20 25 05/26/2025 CMP glucose 164 mg/dL 70-105 high Not Availabl e Ga Only - [facility] [address] [place] [address], [address], 05/26/2025 07:10:10 05/26/20 25 05/26/2025 CMP calcium 9.4 mg/dL 8.6-10 .3 Not Available Ga Only - [facility] [address], [address], 05/26/2025 07:10:10 05/26/20 25 05/26/2025 CMP total protein 6.7 gm/dL 6.0-8. 3 Not Available Ga Only - [facility] [address] [place] [address], [address], 05/26/2025 07:10:10 05/26/2005/26/2025 CMP albumin 4.0 gm/dL 3.5-5. 7 Not Available Ga Only - [facility] [address] [place] [address], [address], 05/26/2025 07:10:10 05/26/2005/26/2025 CMP bilirubin (total) 0.7 mg/dL 0.3-1. 0 Not Available Ga Only - [facility] [address] [place] [address], [address], 05/26/2025 07:10:10 05/26/2005/26/2025 CMP AST 23 IU/L 13-39 Not Available Ga Only - [facility] [address] [place] [address], [address], 05/26/2025 07:10:10 05/26/2005/26/2025 CMP alk phos 135 IU/L 34-104 high Not Availab le Ga Only - [facility] [address] [place] [address], [address], 05/26/2025 07:10:10 05/26/2005/26/2025 CMP ALT 16 IU/L 7-52 Not Available Ga Only - [facility] [address] [place] [address], [address], 05/26/2025 07:10:10 05/26/2005/26/2025 CMP anion gap 9 8-16 Anion gap calcu lated using formu la: Na - (Cl + CO2) Measu red total CO2 is used in place of HCO3 Not Available Ga Only - [address], [address], 05/26/2025 07:10:10 05/26/20 25 05/26/2025 DIFF neutrophils 60 % 47-67 Not Avai lable Ga Only - [address], [address], 05/26/2025 06:44:31 05/26/20 25 05/26/2025 DIFF lymphocytes 27 % 25-45 Not Avai lable Ga Only - [address], [address], 05/26/2025 06:44:31 05/26/20 25 05/26/2025 DIFF monocytes 9 % 1-9 Not Availa ble Ga Only - [address], [address], 05/26/2025 06:44:31 05/26/20 25 05/26/2025 DIFF eosinophils 3 % 0-6 Not Avai lable Ga Only - [address], [address], 05/26/2025 06:44:31 05/26/20 25 05/26/2025 DIFF basophils 1 % 0-2 Not Availa ble Ga Only - [address], [address], 05/26/2025 06:44:31 05/26/20 25 05/26/2025 DIFF absolute neutrophils 5.1 K/cum m 1.8-6. 5 Not Available Ga Only - [address], [address], 05/26/2025 06:44:31 05/26/20 25 05/26/2025 DIFF absolute lymphocytes 2.2 K/cum m 0.9-3. 0 Not Available Ga Only - [address], [address], 05/26/2025 06:44:31 05/26/2005/26/2025 DIFF absolute monocytes 0.8 K/cum m 0.2-0. 8 Not Available Ga Only - [facility] [address] [place] [address], [address], 05/26/2025 06:44:31 05/26/2005/26/2025 DIFF absolute eosinophils 0.3 K/cum m 0.0-0. 4 Not Available Ga Only - [address], [address], 05/26/2025 06:44:31 05/26/2005/26/2025 DIFF absolute basophils 0.1 K/cum m 0.0-0. 2 Not Available Ga Only - [address], [address], 05/26/2025 06:44:31 05/26/2005/26/2025 CBC W/ AUTO DIFF WBC 8.4 K/cum m 3.4-9. 4 Not Available Ga Only - [address], [address], 05/26/2025 06:44:29 05/26/2005/26/2025 CBC W/ AUTO DIFF RBC 4.05 M/cum m 4.20-5 .40 low Not Available Ga Only - [address], [address], 05/26/2025 06:44:29 05/26/20 25 05/26/2025 CBC W/ AUTO DIFF hemoglobin 11.2 gm/dL 12.0-1 6.0 low Not Available Ga Only - [address], [address], 05/26/2025 06:44:29 05/26/20 25 05/26/2025 CBC W/ AUTO DIFF hematocrit 33 % 37-47 low Not Available Ga Only - [address], [address], 05/26/2025 06:44:29 05/26/2005/26/2025 CBC W/ AUTO DIFF MCV 81 81-94 Not Available Ga Only - [facility] [address] [place] [address], [address], 05/26/2025 06:44:29 05/26/20 25 05/26/2025 CBC W/ AUTO DIFF MCH 27.6 pg 27.5-3 3.2 Not Available Ga Only - [facility] [address] [place] [address], [address], 05/26/2025 06:44:29 05/26/2005/26/2025 CBC W/ AUTO DIFF MCHC 34.0 g/dL 31.0-3 6.0 Not Available Ga Only - [address], [address], 05/26/2025 06:44:29 05/26/2005/26/2025 CBC W/ AUTO DIFF RDW 14.4 % 11.7-1 5.5 Not Available Ga Only - [address], [address], 05/26/2025 06:44:29 05/26/2005/26/2025 CBC W/ AUTO DIFF platelets 280 K/cum m 140-41 0 Not Available Ga Only - [address], [address], 05/26/2025 06:44:29 05/26/2005/26/2025 CBC W/ AUTO DIFF MPV 8.4 mL Not Available Ga Only - [facility] [address] [place] [address], [address], 05/26/2025 06:44:29 05/07/2005/07/2025 CT, abdom en + pelvi s, w/o contr ast [facility] [address] [place] [address] Name: ZEKEJUANBIBIANA Salgado Age: 54 : 1970 Exam Date: 2024 ACCESS ION: [id number] ORDERI WERNER MD: ANKUSH JOEL EXAM: CT of the [...] the subcut aneous as fat of the procedures tech ior abdomi nal wall/u pper glutea l [...] Signed : 17:57 Shelley Patterson MD INTERFACE Ga Only - [facility] [address] [place] [address], [address], 05/07/2025 19:01:25 05/18/[address], abdom en + pelvi s, w/ contr ast [facility] [address] [place]. [address] ------ ---NAM E----- ---- NUMBER SEX AGE ADMIT DISC. XRAY# F/C TYPE ZEKE BOOTHE EN P [id number] F 54 5 [id number] GIL E/R DATE OF : 1970 M/R# [id number] PH#: [id number] LOCATI ON: TRANSC RIBED: 6:22 CT [place] [id number] COMPLE MICHELLE: 4:39 TSY [id number] {REASO N FOR PROCED URE: Abdomi nal [...] 2 days. histor y of chol;e cystec mtat, append ectomy , umbill icus hernia repair [...] to size, and the use of iterat jozef recons tructi on techni que. CTDIvo l in mGy: 27.72 DLP in mGy-cm : 1344 FINDIN GS: The liver and spleen are normal in size and contou r. No adrena l mass. Pancre as is normal . There are cholec ystect javier change s. Stable 3.5 x 3.1 cm cyst at the [facility]. No pyelon ephrit [...] 3.5 x 3.1 cm [facility]. Electr onical ly Signed By: SHADI Slater MD , Date/T blayne: 06:22 INTERFACE Sc Only - [facility] [address] [place], [address], 05/18/2025 07:26:44 05/21/20 25 05/21/2025 dmitry posada/kojo griffin tic resul t No observ ation record ed. [address] - Radiology [address] [facility], [place], [address], 05/23/2025 13:18:15 05/22/20 25 05/13/2025 US, doppl er echoc ardio gram No observ ation record ed. BARCODE Not Available 2024 16:02:31 05/26/20 25 05/26/2025 D chest 1 view [facility] [address] [place] [address] Name: TL WHITE Age: 54 : 1970 Exam Date: 2024 ACCESS ION: [id number] BLAISE POSADA MD: ISABELLA GARCES EXAM: Chest single view Date: 2024 05:39 Compar ras: Chest X-ray Octobe r 2023 Histor y: Mervin albrecht compla ins of chest pain and shortn ess of breath starti ng yester day. Mervin albrecht has a histor y of asthma . right sided pleuri tic pain FINDIN GS: AP uprigh t view of the chest obtain ed. Wilfridoa jerica siljailyn ette is enlarg ed, and pulmon patrick vascul arity is normal . No consol idatio n, pleura l effusi on, or eviden ce of pneumo thorax . No acute fractu res in the chest. Impres khalida: No active chest diseas e. Final Report Dictat ed: 06:45 Sergo Hebert MD Signed : 06:45 Sylwia slater MD, Sergo Hussein INTERFACE Sc Only - [facility] [address] [place] [address], [address], 05/26/2025 07:48:51 05/26/2005/26/2025 XR, chest , 2 view No observ ation record ed. [facility] (Radiology) [address] [place] [address], [address], 05/26/2025 14:34:26 05/28/20 CT head scan w/o contr ast [facility] [address] [place]. [address] ------ ---NAM E----- ---- NUMBER SEX AGE ADMIT DISC. XRAY# F/C TYPE ZEKE JUANBIBIANA EN P [id number] F 54 5 [id number] GIL E/R DATE OF : 1970 M/R# [id number] PH#: [id number] LOCATI ON: TRANSC RIBED: 14:29 CT HEAD SCAN W/[place] [address] COMPLE MICHELLE: 13:58 TSY [id number] {REASO N FOR PROCED URE: Headac he [...] was dictat ed remote ly by a [facility] Radiol ogist in [place], [place]. Electr onical ly Signed By: MEET BROWN MD , Date/T blayne: 14:29 INTERFACE Ga Only - [facility] [address], [place], [address], 05/28/2025 15:32:34 05/28/[address], cervi radha spine , w/o contr ast [facility] [address] [place]. [address] ------ ---NAM E----- ---- NUMBER SEX AGE ADMIT DISC. XRAY# F/C TYPE ZEKE BOOTHE EN P [id number] 4 F 54 5 [id number] GIL E/R DATE OF : 1970 M/R# [id number] PH#: [id number] LOCATI ON: TRANSC RIBED: 14:31 CT C-[place] [address] COMPLE MICHELLE: 13:58 TSY [id number] {REASO N FOR PROCED URE: Neck Pain [...] was dictat ed remote ly by a [facility] Radiol ogist in [place], [place]. Electr onical ly Signed By: MEET BROWN MD , Date/T blayne: 14:31 INTERFACE Ga Only - [facility] [address] [place], [address], 05/28/2025 15:35:09 05/28/[address], thora cic spine , w/o contr ast [facility] AL [address] [place]. [address] ------ ---NAM E----- ---- NUMBER SEX AGE ADMIT DISC. XRAY# F/C TYPE ZEKE JUANBIBIANA EN P [id number] F 54 5 [id number] GIL E/R DATE OF : 1970 M/R# [id number] PH#: [id number] LOCATI ON: TRANSC RIBED: 14:35 CT THORAC IC SPINE W/O CONTRA [id number] COMPLE MICHELLE: 13:58 TSY [id number] {REASO N FOR PROCED URE: Pain PHYSIC [...] was dictat ed remote ly by a [facility] Radiol ogist in [place], [place]. Electr onical ly Signed By: MEET BROWN MD , Date/T blayne: 14:35 INTERFACE Ga Only - [facility] [address], [place], [address], 05/28/2025 15:38:22 06/05/20 25 06/03/2024 CT, angio gram, chest , w/ contr ast No observ ation record ed. [email or web address] Not Available 2024 16:05:59 06/07/20 25 06/07/2025 XR, chest , [address] [address] Teleph one Name: TL WHITE [id number] am Date: 2024 Age: 54Phys ician: MD MIKEY, JESSIC A : 1970Ex aminat ion: XR CHEST [...] 3:01 PM cc: Page PAGE 1 of [facility] 1 MIKE Sc Only - Sc Radiology [address] [place] [address], [address], 06/08/2025 14:33:15 07/27/20 25 07/27/2025 CT, abdom en + pelvi s, w/ contr ast [facility] [address] [place] [address] Name: TL WHITE P Age: 54 : 1970 Exam Date: 2024 ACCESS ION: [id number] BLAISE POSADA MD: MILE [place] EXAMIN ATION: CT ABDOME [...] ing approx imatel y 1.1 cm in [facility] er. There is no hydron ephros is. [...] soft tissue nodule s and dystro phic procedures tech ior soft tissue calcif icatio ns, contin [...] Final Report Dictat ed: 20:47 Scrogg ins RES, Mayuri Signed : 20:47 Tye hernandez MD, Isabella EGAN [facility] [address] [place] [address], [address], 07/27/2025 21:51:11 08/01/20 25 08/01/2025 imagi ng/di elias tic resul t No observ ation record ed. [email or web address] [facility] - Radiology [address] [place], [address], 08/01/2025 17:37:33 08/03/20 25 08/03/2025 D abdom en 1 view [facility] [address] [place] [address] [phone] Name: TL WHITE Age: 54 : 1970 Exam Date: 2024 ACCESS ION: [id number] BLAISE POSADA MD: BRIDGET BOWLES EXAM: Abdome n, 1 [...] Signed : 20:05 Juwan Metzger MD INTERFACE [facility] [address] [place] [address], [address], 08/03/2025 21:09:24 Result Notes Documentation Provider Name and Address Organization Details Recorded Time Xr, Chest, 2 View : [address] [address] Name: LETI WHITE Date: 06/07/2025 Age: 54Physician: [...] NUMPAGES 1 Carrol Villagomez MD [address] [place] [address], [phone], [facility] 06/08/2025 12:48:14 Problems Name Problem SNOMED Code Status Onset Date Resolution Date Notes Provider Name and Address Organization Details Recorded Time Migraine 71571037 [facility] 17:00[facility]48 Hypertens jozef disorder 38231513 Active 2020 [facility] 4 17:00:48 Atypical squamous cells of undetermi tiffanie significa nce on cervical Papanicol aou smear 759980301 Active 2020 [facility] 4 17:00:48 Second degree uterine prolapse 6662470 Active 2022 Yolandeher Riley [facility] 4 17:00:48 Chest pain 62972106 Active 2022 KYA PRITCHARD NP [address] [place] [address], [address] , [facility] 5 16:44:36 Preinfarc tion syndrome 9107656 Active 2022 Yolande Riley [facility] 4 17:00:48 Coronary arteriosc lerosis 38410421 Active 2023 KYA PRITCHARD NP [address] [place] [address], [address] , [facility] 5 17:10:30 Essential hypertens ion 85008082 Active 2023 KYA PRITCHARD NP [address] [place] [address], [address] , [facility] 5 16:44:21 Hyperchol esterolem ia 58255762 Active 2023 Hope Celestino [facility] 4 16:47:54 Abdominal pain 31764084 Active 2023 Eren Oswald PA-C [address] [place] [address], [address] , [facility] 4 13:05:40 Thoracic radiculop athy 61255475 Active 2023 Kimi Mathis APRN, FUNCTIONAL ARCHITECT [address] [facility] [place], [address] , [facility] 4 14:46:37 Cervical radiculop athy 99002106 Active 2023 Kimi Mathis APRN, FUNCTIONAL ARCHITECT [address] [facility], [place], [address] , [facility] 4 14:46:47 Lumbar spondylos is 519467787 Active 2023 Pauly Vizcaino MD [address] [facility], [place], [address] , [facility] 5 14:49:06 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 21040591503 9106 Active 2023 following with endocrino logy Pauly Vizcaino MD [address] [facility], [place], [address] , [facility] 5 14:52:00 Spinal arachnoid cyst 377686828 Active 2023 Pauly Vizcaino MD [address] [facility] [place], [address] , [facility] 5 14:51:11 Morbid obesity 807007718 Active 2024 Pauly Vizcaino MD [address] [facility] [place], [address] , [facility] 5 14:50:22 Gastropar esis syndrome 772175775 Active 2024 Pauly Vizcaino MD [address] [facility] [place], [address] , [facility] 5 14:53:47 Gastroeso phageal reflux disease 890182935 Active 2024 Pauly Vizcaino MD [address] [facility] [place], [address] , [facility] 5 14:53:56 Dyspnea 223142861 Active 2024 Valeria Baugh, [employer] PLANTER, FUNCTIONAL ARCHITECT [address] [facility], [place], [address] , [facility] 5 12:14:35 Pain of left shoulder region Active 2024 Pauly Vizcaino MD [address] [facility], [place], [address] , [facility] 5 15:11:16 Bilateral cramp of muscle of lower limbs 17865143001 091074 Active 2024 Pauly Vizcaino MD [address] [facility], [place], [address] , [facility] 5 15:12:21 Fibromyal chuck 124403158 Active 2024 Pauly Vizcaino MD [address] [facility], [place], [address] , [facility] 5 15:19:57 Recurrent major depressio n in remission 19826787 Active 2024 Pauly Vizcaino MD [address] [facility], [place], [address] , [facility] 5 15:24:34 Primary insomnia 1365812 Active 2024 Pauly Vizcaino MD [address] [facility], [place], [address] , [facility] 5 15:25:40 Swelling of lower limb 770004237 Active 2024 Pauly Vizcaino MD [address] [facility], [place], [address] , [facility] 5 16:16:03 Palpitati ons 23003297 Active 2024 Audrey lam, [facility] 5 16:53:19 Dyspnea on exertion 91807244 Active 2024 KYA PRITCHARD NP [address] [facility], [place], [address] , [facility] 5 17:10:27 Hyperlipi demia 59583450 Active 2024 KYA PRITCHARD NP [address] [place] [address], [id number] , [facility] 5 16:44:26 Edema of lower extremity 043441434 Active 2024 KYA PRITCHARD NP [address] [place] [address], [id number] , [facility] 5 17:34:12 Persisten t depressiv e disorder 9503134814 Active 2024 Melissa Macias PA-C [address] [place] [address], [id number] , [facility] 5 11:28:54 Restless legs syndrome 35714263 Active 2024 Melissa Macias PA-C [address] [place] [address], [id number] , [facility] 5 11:29:39 Atypical chest pain 054651163 Active 2024 Melissa Macias PA-C [address] [place] [address], [id number] , [facility] 5 12:45:48 Anemia 995427348 Active 2024 Valreia Baugh APRN, FUNCTIONAL ARCHITECT [address] [place] [address], [id number] , [facility] 5 12:10:45 Acute kidney injury 26590185 Active 2024 Valeria Baugh APRN, FUNCTIONAL ARCHITECT [address] [place] [address], [id number] , [facility] 5 12:13:44 Mycosis 6245906 Active 2024 Valeria Baugh APRN, FUNCTIONAL ARCHITECT [address] [place] [address], [phone] , [facility] 5 16:49:11 Obstructi ve sleep apnea syndrome 19454348 Active 2024 Sindhu Pizarro [facility] 5 16:01:58 Acute urinary tract infection 441431382 Active 2024 [facility] 5 15:43[facility]42 Alpha-1-a ntitrypsi n deficienc y 81436047 Active 2024 Sindhu Pizarro [facility] 5 16:23:34 Supravent ricular tachycard ia 6380233 Active 2024 KYA PRITCHARD, JOSE G [address] [facility], [place], [address] , [facility] 5 16:44:22 Abdominal discomfor t 62304585 Active 2024 Kimi giron [facility] 5 10:28:59 Screening colonosco py Active 2024 Kimi giron [facility] 5 10:34:05 Notes:Some problems listed i n Documents: #[id number], #[id number], #[id number] could not be added to this patient's [...] Name and Address Organization Details Recorded Time 6561783 fentanyl medicatio n headache Not available Not available 10/14/20232012 4337 RxNorm React ion: Heada syeda; Nause a; Vomit ing; Comme nt: React ion Date: 23 Aug 2013 Annot ation s: JUVENCIO SIEGEL 2012 9:08P M Per pt repor t.; ; [facility] 5 14:41:09 0920184 prochlorp erazine medicatio n anxiety Not available Not available 05/13/20242017 8704 RxNorm [facility] 5 11:23:17 5694837 sumatript an medicatio n itching Not available Not available 05/13/20242017 59464 RxNorm [facility] 5 14:41:28 8341334 metoclopr amide Not available other Not available Not available 05/13/20242022 6915 RxNorm [facility] 5 14:41:18 6289763 diphenhyd ramine hydrochlo ride medicatio n anxiety rash Not available Not available Not available 05/13/20242017 1362 RxNorm [facility] 5 11:23:17 2478241 Duragesic medicatio n headache Not available Not available 06/22/20242012 50699 8 RxNorm React ion: Heada yseda; Nause a; Vomit ing; Comme nt: React ion Date: 23 Aug 2013 Annot ation s: JUVENCIO SIEGEL 2012 9:08P M Per pt repor t.; ; [facility] 5 14:41:05 3324567 Compazine medicatio n other Not available Not available 11/02/202497653 6 RxNorm irrit abili ty [facility] 5 14:41:50 7499119 Imdur medicatio n anxiety insomnia Not available Not available [facility] 05/30/2025 58249 2 RxNorm Melissa Macias PA-C [address] [place] [address], [phone] 5 10:19:27 422954 Biaxin medicatio n nausea Not available Not available 10/12/20232006 62560 9 RxNorm React ion: Nause a; Not Available [facility] 4 21:45:38 001666 sumatript an succinate medicatio n Not available Not available Not available 10/12/20232006 46292 RxNorm React ion: Short ness of breat h; Arrhy thmia ; Not Available [facility] 4 21:45:39 413650 ciproflox acin hydrochlo ride medicatio n Not available Not available Not available 10/12/20232006 76152 RxNorm React ion: Synco pe; Short ness of breat h; [facility] 5 14:40:56 805514 Demerol medicatio n Not available Not available Not available 10/12/20232008 97047 1 RxNorm Comme nt: Annot ation s: GRUND Y, BRAND ON 2008 3:38P M NAUSE A; ; [facility] 5 14:40:59 973284 morphine sulfate medicatio n Not available Not available Not available 10/12/20232008 32291 RxNorm Comme nt: Annot ation s: GRUND Y, BRAND ON 2008 3:39P M NAUSE A; ; [facility] 5 14:41:15 376589 hydromorp basim hydrochlo ride medicatio n Not available Not available Not available 10/12/20232008 79045 7 RxNorm Comme nt: Annot ation s: GRUND Y, BRAND ON 2008 3:39P M NAUSE A; ; Brenda Natarajan [facility] 14:41:12 Medications Name Sig Start Date Stop [...] Available Not Available Not Available Dexcom G7 Stonecutter Hand USE PER MANUFACT URER DIRECTIO NS active [...] Organization Details Last Updated DateTime 170.18 cm 42.7 kg/m2 615358. 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 Yes [email or web address] Information not available 06/13/2024 What Was The Date Of Your Most Recent Tobacco Screening? 07/04/2025 [email or web address] Information not available 07/04/2025 What Is Your Relationship Status? [email or web address] Information not available 06/13/2024 Has Tobacco Cessation Counseling Been Provided? Yes [email or web address] Information not available 03/28/2025 On What Date Was Tobacco Cessation Counseling Provided? 03/28/2025 [email or web address] Information not available 03/28/2025 Sex: Unknown Functional [...] available 2023 15:08:01 Medical History Condition Response Attention-deficit Hyperactivity Disorder N High Blood Pressure Y Thyroid Problems N COPD N Depression Y Anemia Y Anxiety Disorder N Diabetes Y Bleeding Disorder N Arthritis Y Hyperlipidemia Y Cancer Y Stroke N Asthma Y Seizures N Heart Disease Y Fibromyalgia [...] Time Influenza, recombinant, quadrivalent, PF 1 completed [facility] 11/02/2024 14:40:15 Influenza, recombinant, quadrivalent, PF 0 completed [facility] 11/02/2024 14:40:15 zoster recombinant 1 completed [facility] 11/02/2024 14:40:15 zoster recombinant 1 completed [facility] 11/02/2024 14:40:15 COVID-19, mRNA, LNP-S, PF, 100 mcg/0.5mL dose or 50 mcg/0.25mL dose 1 completed [facility] 11/02/2024 14:40:15 COVID-19, mRNA, LNP-S, PF, 100 mcg/0.5mL dose or 50 mcg/0.25mL dose 1 completed [facility] 11/02/2024 14:40:15 COVID-19, mRNA, LNP-S, PF, 100 mcg/0.5mL dose or 50 mcg/0.25mL dose 1 completed [facility] 11/02/2024 14:40:15 pneumococcal polysaccharide PPV23 1 completed Brenda Natarajan [facility] 11/02/2024 14:40:15 influenza, unspecified [facility] [address] [facility] 11/02/2024 14:40:15 influenza, unspecified formulation [address] [facility] 11/02/2024 14:40:15 influenza, unspecified formulation [address] [facility] 11/02/2024 14:40:15 Tdap 7 completed Brenda Natarajan [facility] 11/02/2024 14:40:15 Influenza, split virus, trivalent, preservative [address] [facility] 11/02/2024 14:40:15 Influenza, split virus, quadrivalent, PF 7 completed [facility] 11/02/2024 14:40:15 Past Encounters Encounter ID Performer Location Encounter Start Date Encounter Closed Date Diagnosis/Indication Diagnosis SNOMED-CT Code Diagnosis ICD10 Code Diagnosis IMO Codes Diagnosis Note [id number] Melissa Macias PA-C [facility] ([place]) [address] [place] [address] 05/30/2025 09:44:32 05/30/2025 14:35:57 Primary insomnia 6112655 F51.01 38009 Dyspnea on exertion 6084 5006 R06.09 572858 Fibromyalgia 968515585 M 79.7 50949 Pain of le ft shoulder region 2187421267 M25.512 40256506 Migraine 60977417 G43.90 9 Obstructiv e sleep apnea syndrome 56046150 G47.33 [id number] Carrol Villagomez MD [facility] ([place]) [address] [facility] [place] [address] 06/05/2025 15:41:18 06/05/2025 16:01:50 Dyspnea 587977142 R06.02 R06.00 88939 [id number] Uncertain as to the etiology of her [...] results of the CT scan performed at [facility] this past spring. Addendum, CTA of the chest from 06/03/2024 at [facility] showed unremarkab le pulmonary findings. She has some scattered linear atelectasi s, no consolidat ion, nodule or fluid. No mediastina l or hilar adenopathy . There was significan t coronary artery disease noted on that study. Obstructiv e sleep apnea syndrome 91199908 G47.33 49597 She has a longstandi ng history of sleep apnea diagnosed about 20 years ago down in [place] at an unknown institutio n. Is not on any treatment at this time. I do suspect she does have significan t sleep apnea that is contributi ng to her symptomato logy and we will get her worked up with a split-nigh t sleep study and trial PAP if positive. Health Concerns Section Related Observation LastModified by Organization Detai ls LastModified Time None Recorded Concern Status LastModified by Organization Details LastModified Time None Recorded Payers Encounter Date Sequence Insurance Name Policy Number Policy Garcia Covered Member ID Garcia Member ID Guarantor Name 06/05/2025 2 [place] [employer] Leti White [id number] Leti White 06/05/2025 1 [facility] (MEDICARE REPLACEMENT/A DVANTAGE - PPO) [id number] Leti White [id number] Leti White Notes Date Note Type Note Provider Name and Address Organization Details Recorded Time 06/05/2025 text/html 54-year-old who comes into pulmonary clinic for evaluation of shortness of breath. She carries a diagnosis of asthma for since her teenage years. She also has a diagnosis of GELACIO. She has not been on a CPAP machine for about 20 years when her sleep apnea was first diagnosed when she was living in [place]. The patient has been hospitalized multiple times for chest pain and shortness of breath. She is was at [facility] multiple times this past spring and did [...] has COPD Carrol Villagomez MD [address] [place] [address], [phone], [facility] 06/07/2025 13:51:55 06/07/2025 text/html ROS as noted in the [...] in the hospital in April 2025 at [facility] for cellulitis and received IV vancomycin [...] his . Delia Hall PA-C [address] [place] [address], [phone], [facility] 06/07/2025 16:14:26 OBGyn Episode No OBEpisode recorded.
--- OUTSIDE RECORDS SUMMARY | 2025-08-11 13:54 | XMS_ITS ---
Author Organization Unknown Address [address] [place] [phone] Phone Care Team Providers Care C++ Professor Name Role Phone KEHINDE HERON Hussein Attending Unavailable CARRILLO COATS Primary Unavailable Social History Type Status Start Date End Date Code Code Syst em Smoking History Never smoker (Never Smoked) 390198495 SNOMED CT Sex Female Vital Signs Vital Sign Value Unit [place] Value [place] Unit Date/Time Recent/Initial? Code Code System Body Mass Index 42.69 kg/m2 06/19/2025 20:12 Initial 43166 -5 LOINC Systolic Blood Pressure 165 mm[Hg] [...] Saturation 95 % 2024 21:41 Most Recent 61695 -5 LOINC O2 Saturation 98 % 2024 01:29 Initial 01154 -5 LOINC Pulse 88.0 /min 06/19/2025 21:41 Most Recent 8867- 4 LOINC Pulse 88.0 /min 06/19/2025 01:29 Initial 8867- 4 LOINC Respiration 22 /min 06/19/20 21:41 Most Recent 9279- 1 LOINC Respiration 20 /min 06/19/20 01:29 Initial 9279- 1 [facility] Temperature 36.8 Alexandrea 98.3 F 06/19/20 20:12 Initial 8310- 5 [facility] Weight 123.65 kg 272.60 lbs 06/19/2025 20:12 Initial 04609 -7 [facility] Medications Medication Start Date End Date Route Frequency Dose Code Code System Medication Instructions Home Meds Zofran 4MG Oral Tablet 05/03/2025 Unknown ORAL EVERY 6 HOURS 1 TABLET 476239 RxNorm TAKE 1 TABLET ORAL EVERY 6 [...] Code Code System CHRONIC NECK PAIN active 945846823491 7 SNOMED-CT DISORDER OF ROTATOR CUFF active 189392293 SNOMED-CT SPRAIN OF LEFT SHOULDER active 43984109175870923 SNOMED-CT CHRONIC BACK PAIN active 940770925 SN OMED-CT CHRONIC MIGRAINE active 608168936 SNO MED-CT DIABETES active 55983540 SNOMED-CT GASTROPARESES active 512005121 SNOMED -CT ERIKA CELL NEOPLASM active 233803637 SNOMED-CT HYPERTENSION active 08961384 SNOMED- CT DRUG SEEKING BEHAVIOR active 50106001 SNOMED-CT MALINGERING active 49800119 SNOMED-C 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 10/24/2024 resolved 15878578 SNOMED-CT Allergies and Adverse Reactions Allergy Substance Reaction Severity Start Date Concern Status Code Code System PROCHLORPERAZINE go crazy (SNOMED-CT: null) Severe Active 8704 RxNorm ISOSORBIDE MONONITRATE SOB, anxiety (SNOMED-CT: null) Active 56129 RxNorm CLARITHROMYCIN Vomiting (SNOMED-CT: 945887211) Severe Active 47525 RxNorm BENADRYL went crazy (SNOMED-CT: null) Severe Active 179453 RxNorm IMITREX Tachycardia (SNOMED-CT: 8223059) Moderate Active 496144 RxNorm Plan of Treatment No Data Found Encounters Encounter Diagnosis Start Date Code Code Sys tem Migraine, unspecified, not i ntractable, without status migrainosus 06/19/2025 SNOMED-CT Personal Care Team Section
--- OUTSIDE RECORDS SUMMARY | 2025-08-11 13:54 | XMS_ITS ---
Author Organization Unknown Address [address] [place] [phone] Phone Care Team Providers Care Marsh Buggy Operator Name Role Phone COLBY HSU ROBERT Attending Unavailable CARRILLO COATS Primary Unavailable Social History Type Status Start Date End Date Code Code Syst em Smoking History Never smoker (Never Smoked) 863175701 SNOMED CT Sex Female Medications Medication Start Date End Date Route Frequency Dose Code Code System Medication Instructions Home Meds Zofran 4MG Oral Tablet 05/03/2025 Unknown ORAL EVERY 6 HOURS 1 TABLET 049056 RxNorm TAKE 1 TABLET ORAL EVERY 6 [...] Code Code System CHRONIC NECK PAIN active 373729954938 7 SNOMED-CT DISORDER OF ROTATOR CUFF active 484495282 SNOMED-CT SPRAIN OF LEFT SHOULDER active 28260795118215796 SNOMED-CT CHRONIC BACK PAIN active 720879013 SN OMED-CT CHRONIC MIGRAINE active 295106044 SNO MED-CT DIABETES active 98716280 SNOMED-CT GASTROPARESES active 002286387 SNOMED -CT ERIKA CELL NEOPLASM active 386171779 SNOMED-CT HYPERTENSION active 85100662 SNOMED- CT DRUG SEEKING BEHAVIOR active 77411018 SNOMED-CT MALINGERING active 50888063 SNOMED-C 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 10/24/2024 resolved 22140021 SNOMED-CT Allergies and Adverse Reactions Allergy Substance Reaction Severity Start Date Concern Status Code Code System PROCHLORPERAZINE go crazy (SNOMED-CT: null) Severe Active 8704 RxNorm ISOSORBIDE MONONITRATE SOB, anxiety (SNOMED-CT: null) Active 82074 RxNorm CLARITHROMYCIN Vomiting (SNOMED-CT: 395942384) Severe Active RxNorm BENADRYL went crazy (SNOMED-CT: null) Severe Active 20340118 RxNorm IMITREX Tachycardia (SNOMED-CT: 4619164) Moderate Active 296603 RxNorm Plan of Treatment No Data Found Encounters Encounter Diagnosis Start Date Code Code Sys tem Migraine, unspecified, intra ctable, without status migrainosus 06/20/2025 [facility] Personal Care Team Section
--- OUTSIDE RECORDS SUMMARY | 2025-08-11 13:54 | XMS_ITS ---
Author Organization Unknown Address [address] [place] [phone] Phone Care Team Providers Care Cat Dog Or Other Pet Groomer Name Role Phone CHRISTIANE COUCH Registered Nurse Unavailable PREMA Kyle Attending Unavailable CARRILLO COATS Primary Unavailable Social History Type Status Start Date End Date Code Code Syst em Smoking History Never smoker (Never Smoked) 732723403 SNOMED CT Sex Female Vital Signs Vital Sign Value Unit [place] Value [place] Unit Date/Time Recent/Initial? Code Code System Body Mass Index 43.85 kg/m2 04/23/2025 18:42 Initial 11728 -5 LOINC Systolic Blood Pressure 143 mm[Hg] 04/23/2025 20:05 Most Recent 8480- 6 LOINC Diastolic Blood Pressure 85 mm[Hg] 04/23/2025 20:05 Most Recent 8462- 4 LOINC Systolic Blood Pressure 172 mm[Hg] 04/23/2025 18:42 Initial 8480- 6 LOINC Diastolic Blood Pressure 72 mm[Hg] 04/23/2025 18:42 Initial 8462- 4 LOINC Body Surface Area 2.45 m2 04/23/2025 18:42 Initial 3140- 1 LOINC Height 170.180 0 cm 67.00 in 04/23/2025 18:42 Initial 8302- 2 LOINC O2 Saturation 97 % 2024 20:05 Most Recent 28767 -5 LOINC O2 Saturation 98 % 2024 18:42 Initial 19410 -5 LOINC Pulse 80.0 /min 04/23/2025 20:05 Most Recent 8867- 4 LOINC Pulse 58.0 /min 04/23/2025 18:42 Initial 8867- 4 LOINC Respiration 20 /min 04/23/20 20:05 Most Recent 9279- 1 LOINC Respiration 20 /min 04/23/20 18:42 Initial 9279- 1 [facility] Temperature 36.6 Alexandrea 97.8 F 04/23/20 18:42 Initial 8310- 5 [facility] Weight 127.01 kg 280.00 lbs 04/23/2025 18:42 Initial 59536 -7 [facility] Medications Medication Start Date End Date Route Frequency Dose Code Code System Medication Instructions Home Meds Zofran 4MG Oral Tablet 05/03/2025 Unknown ORAL EVERY 6 HOURS 1 TABLET 171861 RxNorm TAKE 1 TABLET ORAL EVERY 6 [...] Code Code System CHRONIC NECK PAIN active 002293717707 7 SNOMED-CT DISORDER OF ROTATOR CUFF active 025155155 SNOMED-CT SPRAIN OF LEFT SHOULDER active 00472531532187991 SNOMED-CT CHRONIC BACK PAIN active 541907486 SN OMED-CT CHRONIC MIGRAINE active 981267125 SNO MED-CT DIABETES active 26000953 SNOMED-CT GASTROPARESES active 564117008 SNOMED -CT ERIKA CELL NEOPLASM active 651053127 SNOMED-CT HYPERTENSION active 95253825 SNOMED- CT DRUG SEEKING BEHAVIOR active 60255516 SNOMED-CT MALINGERING active 13821630 SNOMED-C 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 10/24/2024 resolved 31642503 SNOMED-CT Allergies and Adverse Reactions Allergy Substance Reaction Severity Start Date Concern Status Code Code System PROCHLORPERAZINE go crazy (SNOMED-CT: null) Severe Active 8704 RxNorm ISOSORBIDE MONONITRATE SOB, anxiety (SNOMED-CT: null) Active 87790 RxNorm CLARITHROMYCIN Vomiting (SNOMED-CT: 148437411) Severe Active 51106 RxNorm BENADRYL went crazy (SNOMED-CT: null) Severe Active 20340118 RxNorm IMITREX Tachycardia (SNOMED-CT: 0177715) Moderate Active 788243 RxNorm Plan of Treatment No Data Found Encounters Encounter Diagnosis Start Date Code Code Sys tem Migraine, unspecified, not i ntractable, without status migrainosus 04/23/2025 SNOMED-CT Personal Care Team Section
--- OUTSIDE RECORDS SUMMARY | 2025-08-11 13:54 | XMS_ITS ---
Author Organization Unknown Address [address] [place] [phone] Phone Care Team Providers Care Gas Regulator Repairer Name Role Phone DEBORAH GARCIA Registered Nurse Unavailable COLBY JONES Attending Unavailable CARRILLO OCATS Primary Unavailable Social History Type Status Start Date End Date Code Code Syst em Smoking History Never smoker (Never Smoked) 669948036 SNOMED CT Sex Female Vital Signs Vital Sign Value Unit [place] Value [place] Unit Date/Time Recent/Initial? Code Code System Body Mass Index 42.38 kg/m2 07/11/2025 15:20 Initial 50939 -5 LOINC Systolic Blood Pressure 119 mm[Hg] [...] O2 Saturation 98 % 2024 15:20 Initial 41663 -5 LOINC Pulse 81.0 /min 07/11/2025 18:50 Most Recent 8867- 4 LOINC Pulse 84.0 /min 07/11/2025 15:20 Initial 8867- 4 LOINC Respiration 20 /min 07/11/20 18:50 Most Recent 9279- 1 LOINC Respiration 20 /min 07/11/20 15:20 Initial 9279- 1 LOINC Temperature 37.1 Alexandrea 98.7 F 07/11/20 15:20 Initial 8310- 5 [facility] Weight 122.74 kg 270.60 lbs 07/11/2025 15:20 Initial 88183 -7 [facility] Medications Medication Start Date End Date Route Frequency Dose Code Code System Medication Instructions Home Meds Zofran 4MG Oral Tablet 05/03/2025 Unknown ORAL EVERY 6 HOURS 1 TABLET 592203 RxNorm TAKE 1 TABLET ORAL EVERY 6 [...] Code Code System CHRONIC NECK PAIN active 920091136659 7 SNOMED-CT DISORDER OF ROTATOR CUFF active 247423344 SNOMED-CT SPRAIN OF LEFT SHOULDER active 40009331691505289 SNOMED-CT CHRONIC BACK PAIN active 443367046 SN OMED-CT CHRONIC MIGRAINE active 155491214 SNO MED-CT DIABETES active 80912170 SNOMED-CT GASTROPARESES active 702382270 SNOMED -CT ERIKA CELL NEOPLASM active 595820464 SNOMED-CT HYPERTENSION active 71231697 SNOMED- CT DRUG SEEKING BEHAVIOR active 34576020 SNOMED-CT MALINGERING active 24309118 SNOMED-C 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 10/24/2024 resolved 81639064 SNOMED-CT Allergies and Adverse Reactions Allergy Substance Reaction Severity Start Date Concern Status Code Code System PROCHLORPERAZINE go crazy (SNOMED-CT: null) Severe Active 8704 RxNorm ISOSORBIDE MONONITRATE SOB, anxiety (SNOMED-CT: null) Active 16047 RxNorm CLARITHROMYCIN Vomiting (SNOMED-CT: 919491258) Severe Active 61023 RxNorm BENADRYL went crazy (SNOMED-CT: null) Severe Active 535405 RxNorm IMITREX Tachycardia (SNOMED-CT: 4104793) Moderate Active 953152 RxNorm Plan of Treatment No Data Found Encounters Encounter Diagnosis Start Date Code Code Sys tem Migraine, unspecified, not i ntractable, without status migrainosus 07/11/2025 SNOMED-CT Personal Care Team Section
--- OUTSIDE RECORDS SUMMARY | 2025-08-11 13:54 | XMS_ITS ---
Author Organization Unknown Address [address] [place] [address] [phone] Phone Care Team Providers Care Cranberry Grower Name Role Phone ABOOD ADEL Attending Unavailable CARRILLO COATS Primary Unavailable Social History Type Status Start Date End Date Code Code Syst em Smoking History Never smoker (Never Smoked) 127176985 SNOMED CT Sex Female Vital Signs Vital Sign Value Unit [place] Value [place] Unit Date/Time Recent/Initial? Code Code System Body Mass Index 43.85 kg/m2 11/02/2024 21:07 Initial 95798 -5 LOINC Systolic Blood Pressure 166 mm[Hg] 11/02/2024 21:57 Most Recent 8480- 6 LOINC Diastolic Blood Pressure 81 mm[Hg] 11/02/2024 21:57 Most Recent 8462- 4 LOINC Systolic Blood Pressure 160 mm[Hg] 11/02/2024 21:07 Initial 8480- 6 LOINC Diastolic Blood Pressure 72 mm[Hg] 11/02/2024 21:07 Initial 8462- 4 LOINC Body Surface Area 2.45 m2 11/02/2024 21:07 Initial 3140- 1 LOINC Height 170.180 0 cm 67.00 in 11/02/2024 21:07 Initial 8302- 2 LOINC O2 Saturation 98 % 2024 21:57 Most Recent 90155 -5 LOINC O2 Saturation 99 % 2024 21:07 Initial 05469 -5 LOINC Pulse 60.0 /min 11/02/2024 21:57 Most Recent 8867- 4 LOINC Pulse 64.0 /min 11/02/2024 21:07 Initial 8867- 4 LOINC Respiration 17 /min 11/02/19 21:57 Most Recent 9279- 1 LOINC Respiration 20 /min 11/02/19 21:07 Initial 9279- 1 [facility] Temperature 36.7 Alexandrea 98.0 F 11/02/19 21:07 Initial 8310- 5 [facility] Weight 127.01 kg 280.00 lbs 11/02/2024 21:07 Initial 09963 -7 [facility] Medications Medication Start Date End Date Route Frequency Dose Code Code System Medication Instructions Home Meds Lidoderm 5% Topical application Patch, Extended Release 11/02/2024 02/28/2025 1 3705139 RxNorm 1 patch daily Zofran 4MG Oral Tablet 05/03/2025 Unknown ORAL EVERY 6 HOURS 1 TABLET 154776 RxNorm TAKE 1 TABLET ORAL EVERY 6 [...] Code Code System CHRONIC NECK PAIN active 797238815489 7 SNOMED-CT DISORDER OF ROTATOR CUFF active 491687281 SNOMED-CT SPRAIN OF LEFT SHOULDER active 65057852982158416 SNOMED-CT CHRONIC BACK PAIN active 327388252 SN OMED-CT CHRONIC MIGRAINE active 526160663 SNO MED-CT DIABETES active 04820421 SNOMED-CT GASTROPARESES active 401833235 SNOMED -CT ERIKA CELL NEOPLASM active 655848279 SNOMED-CT HYPERTENSION active 26605040 SNOMED- CT DRUG SEEKING BEHAVIOR active 63302735 SNOMED-CT MALINGERING active 16231973 SNOMED-C 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 10/24/2024 resolved 70943547 SNOMED-CT Allergies and Adverse Reactions Allergy Substance Reaction Severity Start Date Concern Status Code Code System PROCHLORPERAZINE go crazy (SNOMED-CT: null) Severe Active 8704 RxNorm ISOSORBIDE MONONITRATE SOB, anxiety (SNOMED-CT: null) Active 75813 RxNorm CLARITHROMYCIN Vomiting (SNOMED-CT: 933200922) Severe Active 12197 RxNorm BENADRYL went crazy (SNOMED-CT: null) Severe Active 115651 RxNorm IMITREX Tachycardia (SNOMED-CT: 7182198) Moderate Active 910919 RxNorm Plan of Treatment No Data Found Encounters Encounter Diagnosis Start Date Code Code Sys tem Backache 11/02/2024 614050536 SNOMED-CT Personal Care Team Section Discharge Summary Notes CANDY Hua O 11/02/2024 22:23 filter failed to render (id: '${filterNoteHistoryId}') filter failed to render (id: '${filterNoteHistoryId}') filter failed to render (id: '${filterNoteHistoryId}') ED Nursing Discharge Disposition Checklist Stop times completed in order chronology for all IV fluids / IVPB medications I & O's entered in vital signs Discharge [ x ] Home [ ] correction [ ] Mcfp [ ] Left AMA [ ] AMA disclosure signed [ ] Refused to sign disclosure [ ] Left without being seen [ ] Other: Discharge Instructions Given to: patient [ x ] Verbalizes understanding of instructions given Patient Condition: stable Time of Departure: 2156 Mode of Departure: ambulatory Accompanied by: Son Prescriptions Given to: GOLDIE Cooper [ ] Dispense pack given Dispense Pack [...]
--- OUTSIDE RECORDS SUMMARY | 2025-08-11 13:54 | XMS_ITS ---
Author Organization Unknown Address [address] [place] [address] [phone] Phone Care Team Providers Care Building Inspector Name Role Phone YRN ZEPEDA Attending Unavailable PINKY Kyle Primary Unavailable Social History Type Status Start Date End Date Code Code Syst em Smoking History Never smoker (Never Smoked) 841116876 SNOMED CT Sex Female Vital Signs Vital Sign Value Unit [place] Value [place] Unit Date/Time Recent/Initial? Code Code System Body Mass Index 43.85 kg/m2 12/21/2024 16:30 Initial 33093 -5 LOINC Systolic Blood Pressure 156 mm[Hg] 12/21/2024 18:20 Most Recent 8480- 6 LOINC Diastolic Blood Pressure 82 mm[Hg] 12/21/2024 18:20 Most Recent 8462- 4 LOINC Systolic Blood Pressure 153 mm[Hg] 12/21/2024 16:30 Initial 8480- 6 LOINC Diastolic Blood Pressure 72 mm[Hg] 12/21/2024 16:30 Initial 8462- 4 LOINC Body Surface Area 2.45 m2 12/21/2024 16:30 Initial 3140- 1 LOINC Height 170.180 0 cm 67.00 in 12/21/2024 16:30 Initial 8302- 2 LOINC O2 Saturation 96 % 2024 18:20 Most Recent 68419 -5 LOINC O2 Saturation 96 % 2024 16:30 Initial 35050 -5 LOINC Pulse 85.0 /min 12/21/2024 18:20 Most Recent 8867- 4 LOINC Pulse 60.0 /min 12/21/2024 16:30 Initial 8867- 4 LOINC Respiration 20 /min 12/22/19 25 18:20 Most Recent 9279- 1 LOINC Respiration 20 /min 12/22/19 16:30 Initial 9279- 1 [facility] Temperature 36.8 Alexandrea 98.2 F 12/22/19 16:30 Initial 8310- 5 [facility] Weight 127.01 kg 280.00 lbs 12/21/2024 16:30 Initial 52261 -7 [facility] Medications Medication Start Date End Date Route Frequency Dose Code Code System Medication Instructions Home Meds Lidoderm 5% Topical application Patch, Extended Release 11/02/2024 02/28/2025 1 5072764 RxNorm 1 patch daily Zofran 4MG Oral Tablet 05/03/2025 Unknown ORAL EVERY 6 HOURS 1 TABLET 294076 RxNorm TAKE 1 TABLET ORAL EVERY 6 [...] Code Code System CHRONIC NECK PAIN active 812396339409 7 SNOMED-CT DISORDER OF ROTATOR CUFF active 194056903 SNOMED-CT SPRAIN OF LEFT SHOULDER active 48517687148603243 SNOMED-CT CHRONIC BACK PAIN active 097631805 SN OMED-CT CHRONIC MIGRAINE active 579359708 SNO MED-CT DIABETES active 72551843 SNOMED-CT GASTROPARESES active 376574244 SNOMED -CT ERIKA CELL NEOPLASM active 525288600 SNOMED-CT HYPERTENSION active 75688854 SNOMED- CT DRUG SEEKING BEHAVIOR active 83608206 SNOMED-CT MALINGERING active 37176846 SNOMED-C 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 10/24/2024 resolved 06724735 SNOMED-CT Allergies and Adverse Reactions Allergy Substance Reaction Severity Start Date Concern Status Code Code System PROCHLORPERAZINE go crazy (SNOMED-CT: null) Severe Active 8704 RxNorm ISOSORBIDE MONONITRATE SOB, anxiety (SNOMED-CT: null) Active 54907 RxNorm CLARITHROMYCIN Vomiting (SNOMED-CT: 956660214) Severe Active 27134 RxNorm BENADRYL went crazy (SNOMED-CT: null) Severe Active 20340118 RxNorm IMITREX Tachycardia (SNOMED-CT: 2440692) Moderate Active 035218 RxNorm Plan of Treatment No Data Found Encounters Encounter Diagnosis Start Date Code Code Sys tem 12/21/2024 [id number] SNOMED-CT Personal Care Team Section
--- OUTSIDE RECORDS SUMMARY | 2025-08-11 13:54 | XMS_ITS | Continuity of Care Document ---
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 Assessment Encounter Date Assessment Date Assessment [...] Total time spent: 19 minutes (Tracked by Teros) [id number] Not available 07/04/2025 11:56:04 Plan of [...] Not available Pulm Funct ion Metha choli ne.KY O 2025 02:00P M [facility] Not available Not available Not available Poly Stoner nt 15.ES T 2025 11:15A M [...] subcu taneo us auto- injec tor 2024 [place], [place], [address] [place] [address], [id number], 08/04/2025 17:59:47 queti apine 25 mg table t 2024 [place], [address] [place] [address], 89654, 07/04/2025 12:06:53 venla faxin e ER 150 mg capsu le,ex tende d relea se 24 hr 2024 025 [place], [address] [place] [address], 88223, 08/04/2025 17:59:46 venla faxin e ER 75 mg capsu le,ex tende d relea se 24 hr 2024 025 [place], [address] [place] [address], [id number], 08/04/2025 17:59:46 Patient TargetsNo targets recorded. Patient InstructionsNo instructions recorded. Reason for Referral None Reported. Results Created Date Observation Date Name Description Value Unit Range Abnormal Flag Note LastModifiedBy Organization Detail LastModifiedTime 06/07/2006/07/2025 CBC CBC Not Available Dc Only - Dc Laboratory [facility] [address], [address], 06/07/2025 19:14:12 06/07/20 25 06/07/2025 CBC WBC 5.9 K/uL 3.8-11 .2 Not Available Dc Only - Dc Laboratory [address], [address], 06/07/2025 19:14:12 06/07/2006/07/2025 CBC RBC 4.18 M/uL 3.92-5 .10 Not Available Sc Only - [facility] [address] [place] [address], 26786, 06/07/2025 19:14:12 06/07/2006/07/2025 CBC HGB 11.5 g/dL 11.8-1 5.3 low Not Available [facility] Only - [facility] [address] [place] [address], 67331, 06/07/2025 19:14:12 06/07/2006/07/2025 CBC HCT 35.2 % 36.5-4 4.8 low Not Available [facility] Only - [facility] [address] [place] [address], 15795, 06/07/2025 19:14:12 06/07/2006/07/2025 CBC MCV 84.2 fL 80.0-9 9.0 Not Available Sc Only - [facility] [address] [place] [address], 73379, 06/07/2025 19:14:12 06/07/2006/07/2025 CBC MCH 27.5 pg 25.5-3 3.6 Not Available Sc Only - [facility] [address] [place] [address], 79667, 06/07/2025 19:14:12 06/07/2006/07/2025 CBC MCHC 32.7 g/dL 32.0-3 6.0 Not Available Sc Only - [facility] [address] [place] [address], 86405, 06/07/2025 19:14:12 06/07/2006/07/2025 CBC RDW-SD 39.6 fL 35.1 - 46.3 Not Available [facility] Only - [facility] [address] [place] [address], 04205, 06/07/2025 19:14:12 06/07/2006/07/2025 CBC plt 272 K/uL 130-40 0 Not Available Dc Only - Dc Laboratory [address] [place] [address], 41921, 06/07/2025 19:14:12 06/07/2006/07/2025 CBC MPV 9.9 fL 9.3-12 .8 Not Available Dc Only - Dc Laboratory [address] [place] [address], 45211, 06/07/2025 19:14:12 06/07/2006/07/2025 urina lysis , compl ete urinalysis, complete LOW LEVEL S OF HEMOG LOBIN IN ABSEN CE OF HEMAT URIA MAY NOT BE CLINI MARCOS SIGNI FICAN T. Not Available Dc Only - Dc Laboratory [address] [place] [address], [id number], 06/07/2025 19:21:12 06/07/2006/07/2025 urina lysis , compl ete color DARK YELLOW Dipst ick may be inacc urate due to the color of the urine Not Available Dc Only - Dc Laboratory [address] [place] [address], [id number], 06/07/2025 19:21:12 06/07/2006/07/2025 urina lysis , compl ete clarity CLEAR Not Available Dc Only - D[facility] Laboratory [address] [place] [address], 21659, 06/07/2025 19:21:12 06/07/2006/07/2025 urina lysis , compl ete pH 7.0 5.0-7. 5 Not Available Dc Only - D[facility] Laboratory [address] [place] [address], 76152, 06/07/2025 19:21:12 06/07/2006/07/2025 urina lysis , compl ete specific gravity 1.010 1.000- 1.030 Not Available Dc Only - D[facility] Laboratory [address] [place] [address], 33638, 06/07/2025 19:21:12 06/07/20 25 06/07/2025 urina lysis , compl ete blood NEGATI VE negati ve Not Available Dc Only - [facility] Laboratory [address] [place] [address], 36582, 06/07/2025 19:21:12 06/07/20 25 06/07/2025 urina lysis , compl ete bilirubin NEGATI VE negati ve Not Available Dc Only - [facility] Laboratory [address] [place] [address], 09530, 06/07/2025 19:21:12 06/07/20 25 06/07/2025 urina lysis , compl ete urobilinogen 1.0 0.2-1. 0 Not Available Dc Only - Dc Laboratory [address] [place] [address], 35146, 06/07/2025 19:21:12 06/07/20 25 06/07/2025 urina lysis , compl ete ketone NEGATI VE negati ve Not Available Dc Only - [facility] Laboratory [address] [place] [address], 86536, 06/07/2025 19:21:12 06/07/20 25 06/07/2025 urina lysis , compl ete glucose NEGATI VE negati ve Not Available Dc Only - [facility] Laboratory [address] [place] [address], 90411, 06/07/2025 19:21:12 06/07/20 25 06/07/2025 urina lysis , compl ete protein NEGATI VE negati ve Not Available Dc Only - Dc Laboratory [address] [place] [address], 74973, 06/07/2025 19:21:12 06/07/20 25 06/07/2025 urina lysis , compl ete nitrite POSITI VE negati ve abnormal Not Available Dc Only - D[facility] Laboratory [address] [place] [address], 77767, 06/07/2025 19:21:12 06/07/20 25 06/07/2025 urina lysis , compl ete leukocytes 1+ negati ve abnormal Not Available Dc Only - Dc Laboratory [address] [place] [address], 86994, 06/07/2025 19:21:12 06/07/20 25 06/07/2025 urina lysis , compl ete review * Micro scopi c resul ts revie wed by [facility] Not Available Dc Only - Dc Laboratory [address] [place] [address], 07264, 06/07/2025 19:21:12 06/07/20 25 06/07/2025 urina lysis , compl ete RBC 0-2 0-2/hp f Not Available Dc Only - [facility] Laboratory [address] [place] [address], 89459, 06/07/2025 19:21:12 06/07/20 25 06/07/2025 urina lysis , compl ete WBC 0-5 0-5/hp f Not Available Dc Only - D[facility] Laboratory [address] [place] [address], 63700, 06/07/2025 19:21:12 06/07/20 25 06/07/2025 urina lysis , compl ete WBC. CONFI Cell count s confi rmed by [facility] Not Available Dc Only - Dc Laboratory [address] [place] [address], 61252, 06/07/2025 19:21:12 06/07/20 25 06/07/2025 urina lysis , compl ete squamous epithelial 3-5 0-10/h pf Not Available Dc Only - Dc Laboratory [address] [place] [address], 43300, 06/07/2025 19:21:12 06/07/20 25 06/07/2025 urina lysis , compl ete bacteria NONE SEEN none Not Available Dc Only - S c Laboratory [address] [place] [address], 51646, 06/07/2025 19:21:12 06/07/20 25 06/07/2025 urina lysis , compl ete hyaline cast 0-2 0-2/lp f Not Available Dc Only - Dc Laboratory [address] [place] [address], 88491, 06/07/2025 19:21:12 06/07/20 25 06/07/2025 renal funct ion panel , serum renal function panel Not Available Dc On y - Dc Laboratory [address] [place] [address], 19043, 06/07/2025 19:42:24 06/07/20 25 06/07/2025 renal funct ion panel , serum sodium 140 mmol/ L 136-14 6 Not Available Dc Only - D[facility] Laboratory [address] [place] [address], 77403, 06/07/2025 19:42:24 06/07/20 25 06/07/2025 renal funct ion panel , serum potassium 4.0 mmol/ L 3.5-5. 1 Not Available Dc Only - [facility] Laboratory [address] [place] [address], 96881, 06/07/2025 19:42:24 06/07/20 25 06/07/2025 renal funct ion panel , serum chloride 106 mmol/ L 98-110 Not Available Dc Only - [facility] Laboratory [address] [place] [address], 94056, 06/07/2025 19:42:24 06/07/20 25 06/07/2025 renal funct ion panel , serum CO2 25 mEq/L 20-32 Not Available Dc Only - D[facility] Laboratory [address] [place] [address], 25140, 06/07/2025 19:42:24 06/07/20 25 06/07/2025 renal funct ion panel , serum anion gap 13 mmol/ L 10-22 Not Available Dc Only - [facility] Laboratory [address] [place] [address], 51099, 06/07/2025 19:42:24 06/07/20 25 06/07/2025 renal funct ion panel , serum glucose 188 mg/dL 70-100 high Not Available Dc Only - [facility] Laboratory [address] [place] [address], 67416, 06/07/2025 19:42:24 06/07/20 25 06/07/2025 renal funct ion panel , serum calcium 9.5 mg/dL 8.4-10 .4 Not Available Dc Only - Dc Laboratory [address] [place] [address], 35815, 06/07/2025 19:42:24 06/07/20 25 06/07/2025 renal funct ion panel , serum albumin 4.1 g/dL 3.5-5. 3 Not Available Dc Only - D[facility] Laboratory [address] [place] [address], 30692, 06/07/2025 19:42:24 06/07/20 25 06/07/2025 renal funct ion panel , serum phosphorus 3.1 mg/dL 2.7-4. 5 Not Available Dc Only - [facility] Laboratory [address] [place] [address], 38350, 06/07/2025 19:42:24 06/07/2006/07/2025 renal funct ion panel , serum BUN 15 mg/dL 7-21 Not Available Dc Only - Dc Laboratory [address] [place] [address], 09530, 06/07/2025 19:42:24 06/07/20 25 06/07/2025 renal funct ion panel , serum creatinine 0.9 mg/dL 0.7-1. 3 Not Available Dc Only - [facility] Laboratory [address] [place] [address], 04006, 06/07/2025 19:42:24 06/07/20 25 06/07/2025 renal funct ion panel , serum CKD-epi GFR 76 eGFR was calcu lated using the 2020 CKD-E PI equat ion. (Pest Control Pilot andree Kidne y Disea se has an eGFR less than 60 mL/mi n/1.7 3mm for a perio d of three month s or more. ) This calcu latio n has not been valid ated for patie nt ages <18 or >90 years old. Not Available Dc Only - Dc Laboratory [address] [place] [address], 71817, 06/07/2025 19:42:24 06/07/2006/08/2025 micro album in, urine microalbumin ,random panel Not Available Dc On y - Dc Laboratory [address] [place] [address], 44310, 06/08/2025 10:13:00 06/07/2006/08/2025 micro album in, urine microalbumin random 0.5 mg/dL Not Available [facility] - [facility] [address] [place] [address], 10459, 06/08/2025 10:13:00 06/07/2006/08/2025 micro album in, urine creatinine, urine random 37 mg/dL Refer ence range not estab lishe d for other than 24 hour colle ction . Not Available Dc Only - [facility] Laboratory [address] [place] [address], 08444, 06/08/2025 10:13:00 06/07/2006/08/2025 micro album in, urine [...] in or Creat inine .) Not Available Dc Only - [facility] Laboratory [address] [place] [address], 16480, 06/08/2025 10:13:00 06/07/20 25 06/08/2025 C4 (comp lemen t), serum or plasm a complement C4 44 mg/dL 12-38 high Not Available Dc Onl y - [facility] [address] [place] [address], 77510, 06/08/2025 14:11:19 06/07/20 25 06/08/2025 C3 (comp lemen t), serum or plasm a complement C3 201 mg/dL 82-167 high Not Available Dc Onl y - [facility] [address] [place] [address], 19766, 06/08/2025 14:11:20 06/07/20 25 06/08/2025 ADALBERTO (anti nucle ar antib odies ) scree n, serum ADALBERTO screen NEGATI VE negati ve Perfo rmed by Bio-R ad enzym e immun oassa y Not Available Dc Only - Dc Laboratory [address] [place] [address], 25959, 06/08/2025 15:48:52 06/07/20 25 06/09/2025 cultu re [...] resis tant inter preta tion Not Available Dc Only - [facility] Laboratory [address] [place] [address], 87106, 06/09/2025 09:46:55 06/07/2006/09/2025 immun ofixa tion, serum immunofixati on, serum No monoc lonal ity detec michelle. Not Available Dc Only - [facility] Laboratory [address] [place] [address], 33353, 06/09/2025 15:12:43 06/07/2006/09/2025 immun ofixa tion, serum IgG quantitative 1147 mg/dL 586-16 02 Not Available Dc Only - D[facility] Laboratory [address] [place] [address], 47434, 06/09/2025 15:12:43 06/07/2006/09/2025 immun ofixa tion, serum IgA quantitative 393 mg/dL 87-352 high Not Available Dc Only - [facility] Laboratory [address] [place] [address], 27984, 06/09/2025 15:12:43 06/07/2006/09/2025 immun ofixa tion, serum IgM quantitative 80 mg/dL -217 Not Available Dc Only - [facility] Laboratory [address] [place] [address], 06163, 06/09/2025 15:12:43 06/07/2006/12/2025 anca panel , serum anca, complete Not Available Dc Onl y - Dc Laboratory [address] [place] [address], 24613, 06/12/2025 20:10:54 06/07/2006/12/2025 anca panel , serum myeloperoxid ase Ab <0.2 units 0.0-0. 9 Not Available Dc Only - [facility] Laboratory [address] [place] [address], 31286, 06/12/2025 20:10:54 06/07/20 25 06/12/2025 anca panel , serum proteinase-3 Ab, anca <0.2 units 0.0-0. 9 Not Available Dc Only - [facility] Laboratory [address] [place] [address], 53362, 06/12/2025 20:10:54 06/07/2006/12/2025 anca panel , serum C-anca titer <1:20 titer neg:<1 :20 Not Available Dc Only - [facility] Laboratory [address] [place] [address], 77753, 06/12/2025 20:10:54 06/07/2006/12/2025 anca panel , serum [...] ng of posit marquis sera with both KY-3 and MPO-A NCA enzym e immun oassa ys. As many as 5% serum sampl es are posit marquis only by EIA. Ref. AM J Clin Patho l 1999; 111:5 07-51 3. Not Available Dc Only - [facility] Laboratory [address] [place] [address], 58872, 06/12/2025 20:10:54 06/07/2006/12/2025 anca panel , serum atypical P anca titer <1:20 titer neg:<1 :20 The atypi radha pANCA patte rn has been obser elva in a signi fican t perce ntage of patie nts with ulcer ative colit is, prima ry scler osing chola ngiti s and autoi mmune hepat itis. Not Available Dc Only - Dc Laboratory [address] [place] [address], 67886, 06/12/2025 20:10:54 06/07/20 25 06/07/2025 UE urine eosinophils NEGATI VE Not Available Dc Only - [facility] [address] [place] [address], 54544, 06/07/2025 23:40:52 06/07/20 25 06/08/2025 cultu re + sensi tivit y, urine urine culture and sens. PREL IM URINE GRAM NEGAT MARQUIS RODS DATE/ TIME: 06/08 10:17 >100, 000 CFU/m L Not Available Dc Only - [facility] Laboratory [address] [place] [address], [id number], 06/08/2025 11:18:58 06/18/20 25 06/20/2025 C URINE [...] furth er work- up is neede d. [place] ELIMI NARY REPOR TS Preli minar y Repor t [] Verif ied Date/ Time: 2024 14:19 CDT Moder ate proba ble conta minan ts inclu din,00 0 cfu/m l Gram Negat marquis Rods Cultu re reinc ubate d Not Available Dc Only - [facility] [address] [place] [address], 34475, 06/20/2025 11:46:50 06/18/2006/18/2025 UACS color Pauline Not Available Dc Only - [facility] [address] [place] [address], 66289, 06/18/2025 17:21:53 06/18/2006/18/2025 UACS appearance Clear Not Avail able Dc Only - [facility] [address] [place] [address], 78427, 06/18/2025 17:21:53 06/18/2006/18/2025 UACS specific gravity 1.012 1.003- 1.030 Not Available Dc Only - [facility] [address] [place] [address], 28534, 06/18/2025 17:21:53 06/18/2006/18/2025 UACS pH urine 6.0 4.5-7. 5 Not Available Dc Only - [facility] [address] [place] [address], 63010, 06/18/2025 17:21:53 06/18/2006/18/2025 UACS protein 30 abnormal Not Availa ble Dc Only - [facility] [address] [place] [address], 14080, 06/18/2025 17:21:53 06/18/2006/18/2025 UACS urine glucose Negati ve Not Available Dc Only - [facility] [address] [place] [address], 17865, 06/18/2025 17:21:53 06/18/20 25 06/18/2025 UACS ketones Negati ve Not Available Dc Only - [facility] [address], 31684, 06/18/2025 17:21:53 06/18/2006/18/2025 UACS urine bilirubin Negati ve Not Available Dc Only - [facility] [address] [place] [address], 33946, 06/18/2025 17:21:53 06/18/2006/18/2025 UACS urine HGB Small abnormal Not Avai lable Dc Only - [facility] [address] [place] [address], 73846, 06/18/2025 17:21:53 06/18/2006/18/2025 UACS nitrite Positi ve abnormal Not Available Dc Only - [facility] [address] [place] [address], 25506, 06/18/2025 17:21:53 06/18/2006/18/2025 UACS leukocyte esterase Negati ve Not Available Dc Only - [facility] [address] [place] [address], 17632, 06/18/2025 17:21:53 06/18/2006/18/2025 UACS urobilinogen >=4.0 abnormal Not A vailable [facility] - [address], [address], 06/18/2025 17:21:53 06/18/2006/18/2025 UACS urine WBCs 2 /hpf 0-4 Not Avail able Dc Only - [facility] [address] [place] [address], 75594, 06/18/2025 17:21:53 06/18/2006/18/2025 UACS urine RBCs 0 /hpf 0-2 Not Avail able Dc Only - [facility] [address] [place] [address], 56701, 06/18/2025 17:21:53 06/18/20 25 06/18/2025 UACS squamous epithelial cells 6 /hpf 0-5 high Not Available Dc Onl y - [facility] [address], 76[address], 06/18/2025 17:21:53 06/18/2006/18/2025 UACS bacteria Few abnormal Not Avail able Dc Only [facility] [address] [place] [address], 34941, 06/18/2025 17:21:53 06/18/2006/18/2025 UACS color Pauline Not Available [address], [address], 06/18/2025 17:21:52 06/18/2006/18/2025 UACS appearance Clear Not Avail able [facility] - [address], 824[address], 06/18/2025 17:21:52 06/18/2006/18/2025 UACS specific gravity 1.012 1.003- 1.030 Not Available [address], 96263, 06/18/2025 17:21:52 06/18/2006/18/2025 UACS pH urine 6.0 4.5-7. 5 Not Available [address], 91184, 06/18/2025 17:21:52 06/18/2006/18/2025 UACS protein 30 abnormal Not Availa ble Dc Only [address], [address], 06/18/2025 17:21:52 06/18/2006/18/2025 UACS urine glucose Negati ve Not Available [address], 38215, 06/18/2025 17:21:52 06/18/20 25 06/18/2025 UACS ketones Negati ve Not Available Dc Only - [address], 896[address], 06/18/2025 17:21:52 06/18/20 25 06/18/2025 UACS urine bilirubin Negati ve Not Available Dc Only - [address], 35414, 06/18/2025 17:21:52 06/18/20 25 06/18/2025 UACS urine HGB Small abnormal Not Avai lable Dc Only - [address], 12059, 06/18/2025 17:21:52 06/18/2006/18/2025 UACS nitrite Positi ve abnormal Not Available [facility] - [address], 60184, 06/18/2025 17:21:52 06/18/20 25 06/18/2025 UACS leukocyte esterase Negati ve Not Available Dc Only - [address], 72808, 06/18/2025 17:21:52 06/18/20 25 06/18/2025 UACS urobilinogen >=4.0 abnormal Not A vailable [facility] - [address], 10841, 06/18/2025 17:21:52 06/18/20 25 06/18/2025 UACS urine WBCs 2 /hpf 0-4 Not Avail able [facility] - [address], 23188, 06/18/2025 17:21:52 06/18/20 25 06/18/2025 UACS squamous epithelial cells 6 /hpf 0-5 high Not Available Dc Onl y - [address], 40547, 06/18/2025 17:21:52 06/18/20 25 06/18/2025 UACS bacteria Few abnormal Not Avail able Dc Only - [facility] [address] [place] [address], 41764, 06/18/2025 17:21:52 06/18/2006/18/2025 EGFR eGFR 88 mL/mi [...] Sc Only - [facility] [address] [place] [address], 20716, 06/18/2025 17:15:19 06/18/2006/18/2025 LPSE lipase,serum 18 u/L 11-82 Not Dalila ilable Sc Only - [facility] [address] [place] [address], 73298, 06/18/2025 17:15:18 06/18/20 25 06/18/2025 CMP sodium 139 mmol/ L 136-14 5 Not Available Sc Only - [facility] [address] [place] [address], 05140, 06/18/2025 17:15:16 06/18/20 25 06/18/2025 CMP potassium 4.1 mmol/ L 3.5-5. 1 Not Available Sc Only - [facility] [address] [place] [address], 79081, 06/18/2025 17:15:16 06/18/2006/18/2025 CMP chloride 106 mmol/ L 98-107 Not Available Dc Only - [facility] [address] [place] [address], 98470, 06/18/2025 17:15:16 06/18/2006/18/2025 CMP CO2 24 mmol/ L 21-31 Not Available Dc Only - [facility] [address] [place] [address], 99633, 06/18/2025 17:15:16 06/18/2006/18/2025 CMP BUN 9 mg/dL 7-25 Not Available Dc Only - [facility] [address] [place] [address], 60248, 06/18/2025 17:15:16 06/18/2006/18/2025 CMP creatinine 0.8 mg/dL 0.6-1. 3 Not Available Dc Only - [facility] [address] [place] [address], 87546, 06/18/2025 17:15:16 06/18/2006/18/2025 CMP glucose 210 mg/dL 70-105 high Not Availabl e Dc Only - [facility] [address] [place] [address], 73078, 06/18/2025 17:15:16 06/18/2006/18/2025 CMP calcium 9.3 mg/dL 8.6-10 .3 Not Available Dc Only - [facility] [address] [place] [address], 07219, 06/18/2025 17:15:16 06/18/2006/18/2025 CMP total protein 7.2 gm/dL 6.0-8. 3 Not Available Dc Only - [facility] [address] [place] [address], 26418, 06/18/2025 17:15:16 06/18/2006/18/2025 CMP albumin 4.0 gm/dL 3.5-5. 7 Not Available Dc Only - [facility] [address] [place] [address], 14475, 06/18/2025 17:15:16 06/18/20 25 06/18/2025 CMP bilirubin (total) 0.8 mg/dL 0.3-1. 0 Not Available Dc Only - [facility] [address] [place] [address], 04777, 06/18/2025 17:15:16 06/18/2006/18/2025 CMP AST 24 IU/L 13-39 Not Available Dc Only - [address], 06255, 06/18/2025 17:15:16 06/18/2006/18/2025 CMP alk phos 134 IU/L 34-104 high Not Availab le [facility] - [address], 25865, 06/18/2025 17:15:16 06/18/2006/18/2025 CMP ALT 15 IU/L 7-52 Not Available [facility] - [address], 77491, 06/18/2025 17:15:16 06/18/2006/18/2025 CMP anion gap 9 8-16 Anion gap calcu lated using formu la: Na - (Cl + CO2) Measu red total CO2 is used in place of HCO3 Not Available [facility] - [address], [address], 06/18/2025 17:15:16 06/18/2006/18/2025 DBIL bilirubin (direct) 0.1 mg/dL 0.0-0. 2 Not Available Dc Only - [address], 05862, 06/18/2025 17:15:14 06/18/2006/18/2025 DIFF neutrophils 64 % 47-67 Not Avai lable Dc Only - [address], 15138, 06/18/2025 16:50:30 06/18/20 25 06/18/2025 DIFF lymphocytes 23 % 25-45 low Not Avai lable Dc Only - [address], 48553, 06/18/2025 16:50:30 06/18/20 25 06/18/2025 DIFF monocytes 8 % 1-9 Not Availa ble Dc Only - [address], 94882, 06/18/2025 16:50:30 06/18/20 25 06/18/2025 DIFF eosinophils 3 % 0-6 Not Avai lable Dc Only - [address], 09258, 06/18/2025 16:50:30 06/18/20 25 06/18/2025 DIFF basophils 1 % 0-2 Not Availa ble Dc Only - [address], 87209, 06/18/2025 16:50:30 06/18/20 25 06/18/2025 DIFF absolute neutrophils 5.0 K/cum m 1.8-6. 5 Not Available Dc Only - [address], 32165, 06/18/2025 16:50:30 06/18/20 25 06/18/2025 DIFF absolute lymphocytes 1.8 K/cum m 0.9-3. 0 Not Available Dc Only - [address], 64606, 06/18/2025 16:50:30 06/18/20 25 06/18/2025 DIFF absolute monocytes 0.6 K/cum m 0.2-0. 8 Not Available Dc Only - [address], 13732, 06/18/2025 16:50:30 06/18/20 25 06/18/2025 DIFF absolute eosinophils 0.3 K/cum m 0.0-0. 4 Not Available Dc Only - [address], [address], 06/18/2025 16:50:30 06/18/20 25 06/18/2025 DIFF absolute basophils 0.1 K/cum m 0.0-0. 2 Not Available Dc Only - [address], [address], 06/18/2025 16:50:30 06/18/20 25 06/18/2025 CBC W/ AUTO DIFF WBC 7.8 K/cum m 3.4-9. 4 Not Available Dc Only - [address], [address], 06/18/2025 16:50:28 06/18/20 25 06/18/2025 CBC W/ AUTO DIFF RBC 4.23 M/cum m 4.20-5 .40 Not Available Dc Only - [address], [address], 06/18/2025 16:50:28 06/18/20 25 06/18/2025 CBC W/ AUTO DIFF hemoglobin 11.5 gm/dL 12.0-1 6.0 low Not Available Dc Only - [address], [address], 06/18/2025 16:50:28 06/18/20 25 06/18/2025 CBC W/ AUTO DIFF hematocrit 35 % 37-47 low Not Available Dc Only - [address], [address], 06/18/2025 16:50:28 06/18/20 25 06/18/2025 CBC W/ AUTO DIFF MCV 83 81-94 Not Available Dc Only - [address], [address], 06/18/2025 16:50:28 06/18/20 25 06/18/2025 CBC W/ AUTO DIFF MCH 27.1 pg 27.5-3 3.2 low Not Available Dc Only - [address], [address], 06/18/2025 16:50:28 06/18/20 25 06/18/2025 CBC W/ AUTO DIFF MCHC 32.6 g/dL 31.0-3 6.0 Not Available Dc Only - [facility] [address] [place] [address], [id number], 06/18/2025 16:50:28 06/18/20 25 06/18/2025 CBC W/ AUTO DIFF RDW 14.1 % 11.7-1 5.5 Not Available Dc Only - [place] [facility] [address] [place] [address], [address], 06/18/2025 16:50:28 06/18/20 25 06/18/2025 CBC W/ AUTO DIFF platelets 278 K/cum m 140-41 0 Not Available Dc Only - [facility] [address] [place] [address], [address], 06/18/2025 16:50:28 06/18/20 25 06/18/2025 CBC W/ AUTO DIFF MPV 7.9 mL Not Available Dc Only - [facility] [address] [place] [address], [address], 06/18/2025 16:50:28 06/18/20 25 06/19/2025 C URINE [...] 2024 19:13 CDT FREE TEXT SOURC E: [place] ELIMI NARY REPOR TS Preli minar y Repor t [] Verif ied Date/ Time: 2024 14:19 CDT Moder ate proba ble conta minan ts inclu din,00 0 cfu/m l Gram Negat marquis Rods Cultu re reinc ubate d Not Available Dc Only - [facility] [address], [address], 06/19/2025 15:19:31 06/28/2006/30/2025 alpha -1-an titry psin (aat) , QN, serum A-1 antitrypsin phenotype Not Available Dc Onl y - [facility] [address] [place] [address], [address], 06/30/2025 17:12:05 06/28/20 25 06/30/2025 alpha -1-an titry psin (aat) , QN, serum ebuce-1-cmkv trypsin 140 mg/dL 101-18 7 Not Available Dc Only - [facility] [address] [place] [address], [address], 06/30/2025 17:12:05 06/28/2006/30/2025 alpha -1-an titry psin [...] pheno type is taken as the refer marilyne luzmaria l. Perce nt defic iency in each pheno type is repor michelle relat marquis to this refer ence. Range s used to confi rm pheno type. Not Available Dc Only - [facility] [address] [place] [address], [address], 06/30/2025 17:12:05 06/05/20 25 06/03/2024 CT, angio gram, chest , w/ contr ast No observ ation record ed. [email or web address] Not Available 2024 16:05:59 06/07/20 25 06/07/2025 XR, chest , 2 [place] [address] Tele one Name: TL WHITE [id number] am Date: 2024 Age: 54Phys ician: MD MIKEY, [facility] : 1970Ex aminat ion: XR CHEST 2 [...] 3:01 PM cc: Page PAGE 1 [facility] MIKE Dc Only - [facility] [address] [place] [address], [address], 06/08/2025 14:33:15 07/27/2007/27/2025 CT, abdom en + pelvi s, w/ contr ast [facility] [address] [place] [address] Name: TL WHITE Age: 54 : 1970 Exam Date: 2024 ACCESS ION: [id number] ORDERI WERNER MD: MILE HOLLINGSWORTH EXAMIN ATION: CT [...] ing approx imatel y 1.[address] diamet er. There is no hydron [...] soft tissue nodule s and dystro phic print line inspector ior soft tissue calcif icatio ns, contin [...] : 20:47 Tye hernandez MD, Isabella EGAN Dc Only - [facility] [address] [place] [address], [address], 07/27/2025 21:51:11 08/01/20 25 08/01/2025 imagi ng/di agnos tic resul t No observ ation record ed. [email or web address] - Radiology [address] [place], [address], 08/01/2025 17:37:33 08/03/20 25 08/03/2025 D abdom en [address] [facility] [address] [place] [address] Name: TL WHITE Age: 54 : 1970 Exam Date: 2024 ACCESS ION: [id number] BLAISE CALDERA MD: BRIDGET BOWLES EXAM: Abdome [...] Signed : 20:05 Juwan Metzger MD INTERFACE Dc Only - [facility] [address] [place] [address], [address], 08/03/2025 21:09:24 Result Notes None recorded. Problems Name Problem SNOMED Code Status Onset Date Resolution Date Notes Provider Name and Address Organization Details Recorded Time Migraine 74281694 Active 2020 Yolandeher Riley [facility] 4 17:00:48 Hypertens marquis disorder 60153529 Active 2020 Yolande Riley [facility] 4 17:00:48 Atypical squamous cells of undetermi tiffanie significa nce on cervical Papanicol aou smear 897344658 Active 2020 [facility] 4 17:00:48 Second degree uterine prolapse 1775011 Active 2022 Yolande Riley null, [facility] 4 17:00:48 Chest pain 00512750 Active 2022 KYA PRITCHARD, JOSE G [address] [place] [address], [address] , [facility] 5 16:44:36 Preinfarc tion syndrome 4630977 Active 2022 [facility] 4 17:00:48 Coronary arteriosc lerosis 02904028 Active 2023 KYA PRITCHARD NP [address] [place] [address], [address] , [facility] 5 17:10:30 Essential hypertens ion 46784407 Active 2023 KYA PRITCHARD NP [address] [place] [address], [address] , [facility] 5 16:44:21 Hyperchol esterolem ia 63381149 Active 2023 [facility] 4 16:47:54 Abdominal pain 07180127 Active 2023 Eren Oswald PA-C [address] [place] [address], [address] , [facility] 4 13:05:40 Thoracic radiculop athy 11475907 Active 2023 Kimi Mathis APRN, [employer] [address] [place] [address], [address] , [facility] 4 14:46:37 Cervical radiculop athy 83335643 Active 2023 Kimi Mathis APRN, [employer] [address] [place] [address], [address] , [facility] 4 14:46:47 Lumbar spondylos is 896060308 Active 2023 Pauly Vizcaino MD [address] [place] [address], [address] , [facility] 5 14:49:06 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 60651721081 9106 Active 2023 following with endocrino logy Pauly Vizcaino MD [address] [place] [address], [address] , [facility] 5 14:52:00 Spinal arachnoid cyst 118107376 Active 2023 Pauly Vizcaino MD [address] [place] [address], [address] , [facility] 5 14:51:11 Morbid obesity 532503006 Active 2024 Pauly Vizcaino MD [address] [place] [address], [address] , [facility] 5 14:50:22 Gastropar esis syndrome 167155244 Active 2024 Pauly Vizcaino MD [address] [place] [address], [address] , [facility] 5 14:53:47 Gastroeso phageal reflux disease 032645347 Active 2024 Pauly Vizcaino MD [address] [place] [address], [address] , [facility] 5 14:53:56 Dyspnea 439957332 Active 2024 Valeria Baugh APRN, [employer] [address] [place] [address], [address] , [facility] 5 12:14:35 Pain of left shoulder region Active 2024 Pauly Vizcaino MD [address] [place] [address], [address] , [facility] 5 15:11:16 Bilateral cramp of muscle of lower limbs 33600826609 074352 Active 2024 Pauly Vizcaino MD [address] [place] [address], [address] , [facility] 5 15:12:21 Fibromyal chuck 712720194 Active 2024 Pauly Vizcaino MD [address] [place] [address], [address] , [facility] 5 15:19:57 Recurrent major depressio n in remission 71996083 Active 2024 Pauly Vizcaino MD [address] [place] [address], [address] , [facility] 5 15:24:34 Primary insomnia 1129637 Active 2024 Pauly Vizcaino MD [address] [place] [address], [address] , [facility] 5 15:25:40 Swelling of lower limb 258162713 Active 2024 Pauly Vizcaino MD [address] [place] [address], [address] , [facility] 5 16:16:03 Palpitati ons 87823160 Active 2024 Hope Celestino null, [facility] 5 16:53:19 Dyspnea on exertion 63913427 Active 2024 KYA PRITCHRAD NP [address] [place] [address], [address] , [facility] 5 17:10:27 Hyperlipi demia 89812395 Active 2024 KYA PRITCHARD NP [address] [place] [address], [address] , [facility] 5 16:44:26 Edema of lower extremity 327384159 Active 2024 KYA PRITCHARD, JOSE G [address] [facility] [place], [address] , [facility] 5 17:34:12 Persisten t depressiv e disorder 9721456374 Active 2024 Melissa Macias PA-C [address] [facility] [place], [address] , [facility] 5 11:28:54 Restless legs syndrome 93054451 Active 2024 Melissa Macias PA-C [address] [facility] [place], [address] , [facility] 5 11:29:39 Atypical chest pain 066973750 Active 2024 Melissa Macias PA-C [address] [facility] [place], [address] , [facility] 5 12:45:48 Anemia 038332232 Active 2024 Valeria Baugh APRN, [employer] [address] [place] [address] [place], [address] , [facility] 5 12:10:45 Acute kidney injury 55892088 Active 2024 Valeria Baugh APRN, [employer] [address] [place] [address] d, [place], [address] , [facility] 5 12:13:44 Mycosis 9527015 Active 2024 Valeria Baugh APRN, [employer] [address] [place] [address], [place], [address] , [facility] 5 16:49:11 Obstructi ve sleep apnea syndrome 98123257 Active 2024 Sindhu Pizarro [facility] 5 16:01:58 Acute urinary tract infection 761216552 Active 2024 [facility] 15:43:42 Alpha-1-a ntitrypsi n deficienc y 45089476 Active 2024 Sindhu Pizarro [facility] 16:23:34 Supravent ricular tachycard ia 1038550 Active 2024 KYA PRITCHARD, JOSE G [address] [facility], [place], [address] , [facility] 16:44:22 Abdominal discomfor t 06772013 Active 2024 Kimi giron [facility], [facility] 10:28:59 Screening colonosco py Active 2024 Kiminaveed giron [facility] 10:34:05 Notes:Some problems listed i n Documents: #[id number], #[id number], #[id number] could not be added to this patient's [...] Name and Address Organization Details Recorded Time 2908417 fentanyl medicatio n headache Not available Not available 10/14/20232012 4337 RxNorm React ion: Heada syeda; Nause a; Vomit ing; Comme nt: React ion Date: 23 Aug 2013 Annot ation s: JUEVNCIO SIEGEL 10Dec 2012 9:08P M Per pt repor t.; ; Brenda Natarajan [facility] 5 14:41:09 7655417 prochlorp erazine medicatio n anxiety Not available Not available 05/13/20242017 8704 RxNorm Yoli Sauceda [facility] 5 11:23:17 1037376 sumatript an medicatio n itching Not available Not available 05/13/20242017 16642 RxNorm Brenda Natarajan [facility] 5 14:41:28 7687597 metoclopr amide Not available other Not available Not available 05/13/20242022 6915 RxNorm Brenda Natarajan [facility] 5 14:41:18 0827871 diphenhyd ramine hydrochlo ride medicatio n anxiety rash Not available Not available Not available 05/13/20242017 1362 RxNorm Yoli Sauceda [facility] 5 11:23:17 1738932 Duragesic medicatio n headache Not available Not available 06/22/20242012 25321 8 RxNorm React ion: Heada syeda; Nause a; Vomit ing; Comme nt: React ion Date: 23 Aug 2013 Annot ation s: JUVENCIO SIEGEL 10Dec 2012 9:08P M Per pt repor t.; ; Brenda Natarajan [facility] 5 14:41:05 1674698 Compazine medicatio n other Not available Not available 11/02/202451081 6 RxNorm irrit abili ty Brenda Natarajan [facility] 5 14:41:50 6579021 Imdur medicatio n anxiety insomnia Not available Not available [facility] 05/30/2025 02345 2 RxNorm Melissa Macias PA-C [address], [place], [address] , [facility] 5 10:19:27 159191 Biaxin medicatio n nausea Not available Not available 10/12/20232006 14558 9 RxNorm React ion: Nause a; Not Available [facility] 4 21:45:38 443469 sumatript an succinate medicatio n Not available Not available Not available 10/12/20232006 73787 RxNorm React ion: Short ness of breat h; Arrhy thmia ; Not Available [facility] 21:45:39 341527 ciproflox acin hydrochlo ride medicatio n Not available Not available Not available 10/12/20232006 83778 RxNorm React ion: Synco pe; Short ness of breat h; Brenda Natarajan [facility] 5 14:40:56 564799 Demerol medicatio n Not available Not available Not available 10/12/20232008 36685 1 RxNorm Comme nt: Annot ation s: GRUND Y, BRAND ON 2008 3:38P M NAUSE A; ; [facility] 5 14:40:59 233485 morphine sulfate medicatio n Not available Not available Not available 10/12/20232008 54285 RxNorm Comme nt: Annot ation s: GRUND Y, BRAND ON 2008 3:39P M NAUSE A; ; [facility] 5 14:41:15 211688 hydromorp basim hydrochlo ride medicatio n Not available Not available Not available 10/12/20232008 55954 7 RxNorm Comme nt: Annot ation s: GRUND Y, BRAND ON 2008 3:39P M NAUSE A; ; [facility] 5 14:41:12 Medications Name Sig Start [...] Available Not Available Not Available Dexcom G7 Fruit Buying Grader USE PER MANUFACT URER DIRECTIO NS active Not Available Not Available No t Available Dexcom G7 Sensor device CHANGE SENSOR EVERY 10 DAYS PER MANUFACT URER 10/28/ 2025 active Not Available Not Available Not Avai [...] Last Updated DateTime 170.18 cm 42.6 kg/m2 346285. 12 g 77 /min 16 /min 96 % 128/64 mm[Hg] Yoli Sauceda [facility] 11:22:40 Social History Question Answer Notes LastModified by [employer] Details LastModified Time Tobacco Smoking Status [...] Do You Have A Medical Power Of Sourcing Coordinator? Yes [email or web address] Information not available 06/13/2024 What Was The Date Of Your Most Recent Tobacco Screening? 07/04/2025 [email or web address] Information not available 07/04/2025 What Is Your Relationship Status? [email or web address] Information not available 06/13/2024 Has Tobacco Cessation Counseling Been Provided? Yes [email or web address] Information not available 03/28/2025 On What Date Was Tobacco Cessation Counseling Provided? 03/28/2025 [email or web address] Information not available 03/28/2025 Sex: Unknown Functional Status Question Answer Note LastModified by [employer] Details LastModified Time How many times per [...] recombinant, quadrivalent, PF 1 completed [facility] 11/02/2024 14:40:15 Influenza, recombinant, quadrivalent, PF 0 completed [facility] 11/02/2024 14:40:15 zoster recombinant 1 completed [facility] 11/02/2024 14:40:15 zoster recombinant 1 completed [facility] 11/02/2024 14:40:15 COVID-19, mRNA, LNP-S, PF, 100 mcg/0.5mL dose or 50 mcg/0.25mL dose 1 completed Brenda Natarajan [facility] 11/02/2024 14:40:15 COVID-19, mRNA, LNP-S, PF, 100 mcg/0.5mL dose or 50 mcg/0.25mL dose 1 completed Brenda Natarajan [facility] 11/02/2024 14:40:15 COVID-19, mRNA, LNP-S, PF, 100 mcg/0.5mL dose or 50 mcg/0.25mL dose 1 completed Brenda Natarajan [facility] 11/02/2024 14:40:15 pneumococcal polysaccharide PPV23 1 completed Brenda Natarajan [facility] 11/02/2024 14:40:15 influenza, unspecified formulation 4 completed Brenda Natarajan [facility] 11/02/2024 14:40:15 influenza, unspecified formulation 4 completed [facility] 11/02/2024 14:40:15 influenza, unspecified formulation 3 completed [facility] 11/02/2024 14:40:15 Tdap 7 completed [facility] 11/02/2024 14:40:15 Influenza, split virus, trivalent, preservative 1 completed Brenda Natarajan [facility] 11/02/2024 14:40:15 Influenza, split virus, quadrivalent, PF 7 completed Brenda lam, [facility] 11/02/2024 14:40:15 Past Encounters Encounter ID Performer Location Encounter Start Date Encounter Closed Date Diagnosis/Indication Diagnosis SNOMED-CT Code Diagnosis ICD10 Code Diagnosis IMO Codes Diagnosis Note [id number] Carrol Villagomez [place] [facility] [place] [address] [place] [address] 06/05/2025 15:41:18 06/05/2025 16:01:50 Dyspnea 388364694 R06.02 R06.00 21611 [id number] Uncertain as to the etiology of her [...] results of the CT scan performed at [facility] this past spring. Addendum, CTA of the chest from 06/03/2024 at [facility] showed unremarkab le pulmonary findings. She has some scattered linear atelectasi s, no consolidat ion, nodule or fluid. No mediastina l or hilar adenopathy . There was significan t coronary artery disease noted on that study. Obstructiv e sleep apnea syndrome 23902812 G47.33 43719 She has a longstandi ng history of sleep apnea diagnosed about 20 years ago down in [place] at an unknown institutio n. Is not on any treatment at this time. I do suspect she does have significan t sleep apnea that is contributi ng to her symptomato logy and we will get her worked up with a split-nigh t sleep study and trial PAP if positive. [id number] [facility] [address] [facility],[address] [place] [address] 06/07/2025 14:55:39 06/07/2025 17:49:29 Acute kidney injury 31552966 N17.9 8493912 [id number] KYA PRITCHARD NP [address] [facility] ([place]) [address] [place] [address] 06/28/2025 15:53:04 06/28/2025 16:23:37 Coronary arteriosclerosis 33251466 I25.10 584120 Supraventr icular tachycardia 3413498 I47.10 10363 Hyperlipidemia 07720670 E78.5 [id number] Melissa Macias PA-C [facility] ([place]) [address] [place] [address] 07/04/2025 11:15:12 07/04/2025 12:20:08 Primary insomnia 7112544 F51.01 Persistent depressive disorder 8753597388 F34.1 also anxiety and helps with hot flashes Migraine 98647231 G43.90 9 Recurrent major depression in remission 05357147 F33.40 9185012 Hypertensive disorder 38 716561 I10 Health Concerns Section Related Observation LastModified by Organization Detai ls LastModified Time None Recorded Concern Status LastModified by Organization Details LastModified Time None Recorded Payers Encounter Date Sequence Insurance Name Policy Number Policy Garcia Covered Member ID Garcia Member ID Guarantor Name 07/04/2025 2 [place] Leti White [id number] Leti White 07/04/2025 1 [facility] (MEDICARE REPLACEMENT/A DVANTAGE - PPO) [id number] Leti White [id number] Leti White Notes Date Note Type Note Provider Name and Address Organization Details Recorded Time 07/04/2025 text/html Patient here for follow up after starting [id number]- old female presents for follow-up on mood, [...] today and is agreeable if feeling well. Melsisa Macias PA-C [address] [facility], [place], [address], [facility] 07/04/2025 12:17:39 OBGyn Episode No OBEpisode recorded.
--- OUTSIDE RECORDS SUMMARY | 2025-08-11 13:55 | XMS_ITS ---
Author Organization Unknown Address [address] [place] [phone] Phone Care Team Providers Care Body Mechanic Apprentice Name Role Phone COLBY SHADI JONES Attending Unavailable CARRILLO COATS Primary Unavailable Social History Type Status Start Date End Date Code Code Syst em Smoking History Never smoker (Never Smoked) 454539927 SNOMED CT Sex Female Vital Signs Vital Sign Value Unit [place] Value [place] Unit Date/Time Recent/Initial? Code Code System Body Mass Index 41.66 kg/m2 05/31/2025 19:33 Initial 57988 -5 LOINC Systolic Blood Pressure 135 mm[Hg] [...] Saturation 95 % 2024 20:43 Most Recent 89680 -5 LOINC O2 Saturation 97 % 2024 19:33 Initial 75118 -5 LOINC Pulse 85.0 /min 05/31/2025 20:43 Most Recent 8867- 4 LOINC Pulse 92.0 /min 05/31/2025 19:33 Initial 8867- 4 LOINC Respiration 17 /min 05/31/20 20:43 Most Recent 9279- 1 LOINC Respiration 20 /min 05/31/20 19:33 Initial 9279- 1 [facility] Temperature 36.8 Alexandrea 98.2 F 05/31/20 19:33 Initial 8310- 5 [facility] Weight 120.66 kg 266.00 lbs 05/31/2025 19:33 Initial 01168 -7 [facility] Medications Medication Start Date End Date Route Frequency Dose Code Code System Medication Instructions Home Meds Zofran 4MG Oral Tablet 05/03/2025 Unknown ORAL EVERY 6 HOURS 1 TABLET 617147 RxNorm TAKE 1 TABLET ORAL EVERY 6 [...] Code Code System CHRONIC NECK PAIN active 101105734517 7 SNOMED-CT DISORDER OF ROTATOR CUFF active 755058672 SNOMED-CT SPRAIN OF LEFT SHOULDER active 93422194516520131 SNOMED-CT CHRONIC BACK PAIN active 160873122 SN OMED-CT CHRONIC MIGRAINE active 085548946 SNO MED-CT DIABETES active 40621414 SNOMED-CT GASTROPARESES active 036873365 SNOMED -CT ERIKA CELL NEOPLASM active 330810445 SNOMED-CT HYPERTENSION active 94950552 SNOMED- CT DRUG SEEKING BEHAVIOR active 06429761 SNOMED-CT MALINGERING active 78984234 SNOMED-C 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 10/24/2024 resolved 66542689 SNOMED-CT Allergies and Adverse Reactions Allergy Substance Reaction Severity Start Date Concern Status Code Code System PROCHLORPERAZINE go crazy (SNOMED-CT: null) Severe Active 8704 RxNorm ISOSORBIDE MONONITRATE SOB, anxiety (SNOMED-CT: null) Active 55503 RxNorm CLARITHROMYCIN Vomiting (SNOMED-CT: 216657930) Severe Active 74675 RxNorm BENADRYL went crazy (SNOMED-CT: null) Severe Active 659815 RxNorm IMITREX Tachycardia (SNOMED-CT: 5445154) Moderate Active 687869 RxNorm Plan of Treatment No Data Found Encounters Encounter Diagnosis Start Date Code Code Sys tem Migraine, unspecified, not i ntractable, without status migrainosus 05/31/2025 SNOMED-CT Personal Care Team Section
--- OUTSIDE RECORDS SUMMARY | 2025-08-11 13:55 | XMS_ITS | Continuity of Care Document ---
Author Organization [facility] ([place]) Address [address] [place] [address] Care Team Providers Care Occupational Therapist'S Assistant Name Role Phone DRAKE FARRIS [employer] PAULY VIZCAINO Primary Care Provider [phone] PAULY VIZCAINO Referring Provider DELIA HALL Fleet Administrator Assessment Encounter Date Assessment Date Assessment LastModified by Organization Details LastModified Time 05/30/2025 05/30/2025 1. Primary insomnia with comorbid [...] rest as needed when desaturation occurs; report trends/worsenin g to clinic. - Acknowledge potential carvedilol effect [...] - Continue Aimovig with 3rd dose due Jun 23; reassess at ~3 months for therapeutic response; [...] message with any adverse effects or if insomnia/anxiet y worsen. Total time spent: 32 minutes (Tracked by [employer] ) [id number] Not available 05/30/2025 10:44:09 Plan of Treatment Reminders Order Date Submit Date Provider Last Modified By Organization Details Last Modified Time Details Appointments Estab judy Stoner nt 15.ES T 2024 01:30P M Kya Pritchard Not available Not available Not available Estab judy Stoner nt 15.ES T 2025 02:30P M Delia Hall Not available Not available Not available Nurse Surge ry Block 50.[facility] 2025 10:10A M Dr. Lalit Garber Not available Not available Not available ASC Surge ry.[facility] 2025 10:10A M Gastroenterol ogy Not available Not available Not available ASC Surge ry.[facility] 2025 10:[address] Lalit Garber Not available Not available Not available Pulm Funct ion Metha choli ne.W[place] O 2025 02:00P M [facility] Not available Not available Not available Estab judy d Patie nt 15.ES T 2025 11:[address] M [address] Carrol Villagomez Not available Not available Not available New Patie nt Visit 10.NE W 2025 11:50A M Dr. Shital Mendes Not available Not available Not available Estab lishe d Patie nt 15.ES T 2025 01:30P M Tiffanie Painting Not available Not available Not available Estab lishe d Patie nt 15.ES T 2025 03:00P M Kya Pritchard Not available Not available Not available Lab None recor ded. Referral None recor ded. Procedures None recor ded. Surgeries None recor ded. Imaging None recor ded. Medication Orders queti apine 25 mg table t 2024 025 [place], [place], [address] [place], [address], 06/27/2025 18:04:50 Patient TargetsNo targets recorded. Patient InstructionsNo instructions recorded. Reason for Referral None Reported. Results Created Date Observation Date Name Description Value Unit Range Abnormal Flag Note LastModifiedBy Organization Detail LastModifiedTime 04/30/20 25 04/30/2025 LIPAS E lipase 19 U/L 8 - 57 Not Available [facility] [address] [place], [address], 04/30/2025 10:28:42 04/30/20 25 04/30/2025 COMPL ETE METAB OLIC PANEL sodium 141 mmol/ L 136 - 145 Not Available [facility] [address] [place], [address], 04/30/2025 10:28:37 04/30/20 25 04/30/2025 COMPL ETE METAB OLIC PANEL potassium 3.9 mmol/ L 3.5 - 5.1 Not Available [facility] [address] [place], [address], 04/30/2025 10:28:37 04/30/20 25 04/30/2025 COMPL ETE METAB OLIC PANEL chloride 107 mmol/ L 98 - 107 Not Available [facility] [address] [place], [address], 04/30/2025 10:28:37 04/30/20 25 04/30/2025 COMPL ETE METAB OLIC PANEL CO2 27 mmol/ L 22 - 28 Not Available [facility] [address] [place], [address], 04/30/2025 10:28:37 04/30/20 25 04/30/2025 COMPL ETE METAB OLIC PANEL glucose 120 mg/dL 70 - 105 high Not Available [facility] [address] [place], [address], 04/30/2025 10:28:37 04/30/20 25 04/30/2025 COMPL ETE METAB OLIC PANEL BUN 15 mg/dL 7 - 18 Not Available [facility] [address] [place], [address], 04/30/2025 10:28:37 04/30/20 25 04/30/2025 COMPL ETE METAB OLIC PANEL creatinine 1.30 mg/dL 0.44 - 1.24 high Not Available [facility] [address] [place], [address], 04/30/2025 10:28:37 04/30/20 25 04/30/2025 COMPL ETE METAB OLIC PANEL total protein 7.1 g/dL 6.0 - 8.3 Not Available [facility] [address] [place], [address], 04/30/2025 10:28:37 04/30/20 25 04/30/2025 COMPL ETE METAB OLIC PANEL albumin 3.7 g/dL 3.5 - 5.0 Not Available [facility] [address] [place], [address], 04/30/2025 10:28:37 04/30/20 25 04/30/2025 COMPL ETE METAB OLIC PANEL T bilirubin 0.7 mg/dL 0.2 - 1.0 Not Available [facility] [address] [place], [address], 04/30/2025 10:28:37 04/30/20 25 04/30/2025 COMPL ETE METAB OLIC PANEL SGPT 36 IU/L 10 - 40 Not Available [facility] [address] [place], [address], 04/30/2025 10:28:37 04/30/20 25 04/30/2025 COMPL ETE METAB OLIC PANEL alk phos 127 IU/L 32 - 92 high Not Available [facility] [address] [place], [address], 04/30/2025 10:28:37 04/30/20 25 04/30/2025 COMPL ETE METAB OLIC PANEL SGOT 46 IU/L 10 - 42 high Not Available [facility] [address] [place], [address], 04/30/2025 10:28:37 04/30/20 25 04/30/2025 COMPL ETE METAB OLIC PANEL calcium 9.1 mg/dL 8.4 - 10.2 Not Available [facility] [address] [place], [address], 04/30/2025 10:28:37 04/30/20 25 04/30/2025 COMPL ETE METAB OLIC PANEL age 54 yr Not Available [facility] [address] [place], [address], 04/30/2025 10:28:37 04/30/20 25 04/30/2025 COMPL ETE [...] se(CK D) is prese nt. Not Available [facility] [address] [place], [address], 04/30/2025 10:28:37 04/30/20 25 04/30/2025 CBC-C OMPLE TE WBC 5.4 10^3u L 4.0 - 10.8 Not Available [facility] [address] [place], [address], 04/30/2025 10:13:24 04/30/20 25 04/30/2025 CBC-C OMPLE TE RBC 3.84 10^6u L 3.80 - 5.20 Not Available [facility] [address] [place], [address], 04/30/2025 10:13:24 04/30/20 25 04/30/2025 CBC-C OMPLE TE hemoglobin 10.7 g/dL 11.7 - 16.0 low Not Available [facility] [address] [place], [address], 04/30/2025 10:13:24 04/30/20 25 04/30/2025 CBC-C OMPLE TE hematocrit 31.2 % 35.0 - 47.0 low Not Available [facility] [address] [place], [address], 04/30/2025 10:13:24 04/30/20 25 04/30/2025 CBC-C OMPLE TE MCV 81 fL 80 - 100 Not Available [facility] [address] [place], [address], 04/30/2025 10:13:24 04/30/20 25 04/30/2025 CBC-C OMPLE TE MCH 28 pg 28 - 33 Not Available [facility] [address] [place], [address], 04/30/2025 10:13:24 04/30/20 25 04/30/2025 CBC-C OMPLE TE MCHC 34 g/dL 32 - 36 Not Available [facility] [address] [place], [address], 04/30/2025 10:13:24 04/30/20 25 04/30/2025 CBC-C OMPLE TE RDW 15.8 % 11.5 - 15.5 high Not Available [facility] [address] [place], [address], 04/30/2025 10:13:24 04/30/20 25 04/30/2025 CBC-C OMPLE TE platelet 262 10^3u L 140 - 440 Not Available [facility] [address] [place], [address], 04/30/2025 10:13:24 04/30/20 25 04/30/2025 CBC-C OMPLE TE MPV 7.7 fL 7.5 - 11.0 Not Available [facility] [address] [place], [address], 04/30/2025 10:13:24 04/30/20 25 04/30/2025 CBC-C OMPLE TE %neutrophils 59.7 % 40.0 - 75.0 Not Available [facility] [address] [place], [address], 04/30/2025 10:13:24 04/30/20 25 04/30/2025 CBC-C OMPLE TE %lymphocytes 25.1 % 15.0 - 45.0 Not Available [facility] [address] [place], [address], 04/30/2025 10:13:24 04/30/20 25 04/30/2025 CBC-C OMPLE TE %monocytes 9.7 % 2.0 - 12.0 Not Available [facility] [address] [place], [address], 04/30/2025 10:13:24 04/30/20 25 04/30/2025 CBC-C OMPLE TE %eosinophils 4.0 % 0.0 - 5.0 Not Available [facility] [address] [place], [address], 04/30/2025 10:13:24 04/30/20 25 04/30/2025 CBC-C OMPLE TE %basophils 1.5 % 0.0 - 2.0 Not Available [facility] [address] [place], [address], 04/30/2025 10:13:24 04/30/20 25 04/30/2025 CBC-C OMPLE TE neutrophil 3.2 10^3/ uL 1.7 - 7.0 Not Available [facility] [address] [place], [address], 04/30/2025 10:13:24 04/30/20 25 04/30/2025 CBC-C OMPLE TE lymphocyte 1.4 10^3/ uL 0.9 - 3.7 Not Available [facility] [address] [place], [address], 04/30/2025 10:13:24 04/30/20 25 04/30/2025 CBC-C OMPLE TE monocyte 0.5 10^3/ uL 0.2 - 0.8 Not Available [facility] [address] [place], [address], 04/30/2025 10:13:24 04/30/20 25 04/30/2025 CBC-C OMPLE TE eosinophil 0.2 10^3/ uL 0.0 - 0.5 Not Available [facility] [address] [place], [address], 04/30/2025 10:13:24 04/30/20 25 04/30/2025 CBC-C OMPLE TE basophil 0.1 10^3/ uL 0.0 - 0.2 Not Available [facility] [address] [place], [address], 04/30/2025 10:13:24 04/30/20 25 04/30/2025 CBC-C OMPLE TE mdw 17.35 0.00 - 20.00 {CD] Not Available [facility] [address] [place], [address], 04/30/2025 10:13:24 04/30/20 25 04/30/2025 CBC-C OMPLE TE manual diff NOT INDICA MICHELLE Not Available [facility] [address] [place], [address], 04/30/2025 10:13:24 04/30/20 25 04/30/2025 LACTI C ACID lactic acid 1.22 mmol/ L 0.50 - 2.20 Not Available [facility] [address] [place], [address], 04/30/2025 10:07:31 05/07/20 25 05/07/2025 EGFR eGFR [...] [facility] Only - [facility] [address] [place] [address], [address], 05/07/2025 19:09:14 05/07/20 25 05/07/2025 LPSE lipase,serum 33 u/L 16-77 Not Dalila ilable [place] Only - [facility] [address] [place] [address], [address], 05/07/2025 19:09:12 05/07/20 25 05/07/2025 LDH LD 187 u/L 81-234 Not Available [facility] Only - [facility] [address] [place] [address], [address], 05/07/2025 19:09:10 05/07/2005/07/2025 CMP sodium 142 mmol/ L 135-14 8 Not Available [facility] Only - [facility] [address] [place] [address], [address], 05/07/2025 19:09:09 05/07/20 25 05/07/2025 CMP potassium 4.2 mmol/ L 3.5-5. 3 Not Available [facility] Only - [facility] [address] [place] [address], [address], 05/07/2025 19:09:09 05/07/2005/07/2025 CMP chloride 107 mmol/ L 96-112 Not Available [facility] Only - [facility] [address] [place] [address], [address], 05/07/2025 19:09:09 05/07/20 25 05/07/2025 CMP CO2 30 mmol/ L 23-33 Not Available [facility] Only - [facility] [address] [place] [address], [address], 05/07/2025 19:09:09 05/07/2005/07/2025 CMP BUN 13 mg/dL 7-18 Not Available Sc Only - [facility] [address] [place] [address], [address], 05/07/2025 19:09:09 05/07/20 25 05/07/2025 CMP creatinine 1.16 mg/dL 0.55-1 .02 high Not Available [facility] Only - [facility] [address], [address], 05/07/2025 19:09:09 05/07/20 25 05/07/2025 CMP glucose 101 mg/dL 65-99 high Not Availabl e Sc Only - [facility] [address] [place] [address], [address], 05/07/2025 19:09:09 05/07/20 25 05/07/2025 CMP calcium 9.0 mg/dL 8.5-10 .1 Not Available [place] [facility] [address] [place] [address], [address], 05/07/2025 19:09:09 05/07/20 25 05/07/2025 CMP total protein 7.0 g/dL 6.4-8. 2 Not Available [place] [facility] [address], [address], 05/07/2025 19:09:09 05/07/2005/07/2025 CMP albumin 3.1 g/dL 3.4-5. 0 low Not Available [place] [facility] [address] [place] [address], [address], 05/07/2025 19:09:09 05/07/20 25 05/07/2025 CMP bilirubin (total) 0.6 mg/dL 0.2-1. 0 Not Available [facility] Only - [facility] [address] [place] [address], [address], 05/07/2025 19:09:09 05/07/20 25 05/07/2025 CMP AST 35 u/L 15-37 Not Available [place] [facility] [address] [place] [address], [address], 05/07/2025 19:09:09 05/07/20 25 05/07/2025 CMP alk phos 159 u/L 46-116 high Not Availab le [place] - [address], [address], 05/07/2025 19:09:09 05/07/20 25 05/07/2025 CMP ALT 38 u/L 14-59 Not Available [facility] - [address], [address], 05/07/2025 19:09:09 05/07/20 25 05/07/2025 CMP anion gap 5 mmol/ L 7-16 low Not Available [facility] - [address], [address], 05/07/2025 19:09:09 05/07/20 25 05/07/2025 DBIL bilirubin (direct) 0.11 mg/dL 0.00-0 .20 Not Available [facility] - [address], [address], 05/07/2025 19:09:08 05/07/20 25 05/07/2025 CBCW/ DIFF WBC 5.83 x10 3.98-1 0.04 Not Available [facility] - [address], [address], 05/07/2025 19:09:04 05/07/20 25 05/07/2025 CBCW/ DIFF RBC 3.77 x10 3.93-5 .22 low Not Available [facility] - [address], [address], 05/07/2025 19:09:04 05/07/20 25 05/07/2025 CBCW/ DIFF hemoglobin 10.3 g/dL 11.2-1 5.7 low Not Available [facility] Only - [facility] [address] [place] [address], [address], 05/07/2025 19:09:04 05/07/2005/07/2025 CBCW/ DIFF hematocrit 32.2 % 34.1-4 4.9 low Not Available [facility] Only - [facility] [address] [place] [address], [address], 05/07/2025 19:09:04 05/07/20 25 05/07/2025 CBCW/ DIFF MCV 85.4 fL 79.4-9 4.8 Not Available [facility] Only - [facility] [address] [place] [address], [address], 05/07/2025 19:09:04 05/07/20 25 05/07/2025 CBCW/ DIFF MCH 27.3 pg 25.6-3 2.2 Not Available [facility] Only - [facility] [address] [place] [address], [address], 05/07/2025 19:09:04 05/07/20 25 05/07/2025 CBCW/ DIFF MCHC 32.0 g/dL 32.2-3 5.5 low Not Available [facility] Only - [facility] [address] [place] [address], [address], 05/07/2025 19:09:04 05/07/2005/07/2025 CBCW/ DIFF rdwcv 13.8 % 11.7-1 4.4 Not Available [facility] Only - [facility] [address] [place] [address], [address], 05/07/2025 19:09:04 05/07/20 25 05/07/2025 CBCW/ DIFF rdwsd 43.1 fL 36.4-4 6.3 Not Available [facility] Only - [facility] [address] [place] [address], [address], 05/07/2025 19:09:04 05/07/20 25 05/07/2025 CBCW/ DIFF platelets 191 x10 182-36 9 Not Available [facility] Only - [facility] [address], [address], 05/07/2025 19:09:04 05/07/20 25 05/07/2025 CBCW/ DIFF MPV 10.0 fL 9.4-12 .3 Not Available [facility] Only - [facility] [address] [place] [address], [address], 05/07/2025 19:09:04 05/07/20 25 05/07/2025 AUTOD IFF neutrophils 57.2 % 34.0-7 1.1 Not Available [place] - [address], [address], 05/07/2025 19:09:03 05/07/20 25 05/07/2025 AUTOD IFF lymphocytes 25.9 % 19.3-5 1.7 Not Available [place] [facility] [address] [place] [address], [address], 05/07/2025 19:09:03 05/07/20 25 05/07/2025 AUTOD IFF monocytes 11.8 % 4.7-12 .5 Not Available [place] - [address], [address], 05/07/2025 19:09:03 05/07/20 25 05/07/2025 AUTOD IFF eosinophils 3.8 % 0.7-5. 8 Not Available [place] - [facility] [address] [place] [address], [address], 05/07/2025 19:09:03 05/07/20 25 05/07/2025 AUTOD IFF basophils 1.0 % 0.1-1. 2 Not Available [place] - [facility] [address] [place] [address], [address], 05/07/2025 19:09:03 05/07/20 25 05/07/2025 AUTOD IFF imm auto 0.3 % 0.0-1. 5 Not Available [place] Only - [address], [address], 05/07/2025 19:09:03 05/07/20 25 05/07/2025 AUTOD IFF NRBC auto 0.0 /100W BC 0.0-0. 2 Not Available [facility] Only - [address], [address], 05/07/2025 19:09:03 05/07/20 25 05/07/2025 AUTOD IFF absolute neutrophils 3.33 x10 1.56-6 .13 Not Available [place] Only - [address], [address], 05/07/2025 19:09:03 05/07/20 25 05/07/2025 AUTOD IFF absolute lymphocytes 1.51 x10 1.18-3 .74 Not Available [place] Only - [address], [address], 05/07/2025 19:09:03 05/07/20 25 05/07/2025 AUTOD IFF absolute monocytes 0.69 x10 0.24-0 .36 high Not Available [place] - [address], [address], 05/07/2025 19:09:03 05/07/20 25 05/07/2025 AUTOD IFF absolute eosinophils 0.22 x10 0.04-0 .36 Not Available [place] Only - [address], [address], 05/07/2025 19:09:03 05/07/20 25 05/07/2025 AUTOD IFF absolute basophils 0.06 x10 0.01-0 .08 Not Available [facility] Only - [address], [address], 05/07/2025 19:09:03 05/07/20 25 05/07/2025 AUTOD IFF imm absolute 0.02 x10 0.00-0 .15 Not Available [place] Only - [address] [place] [address], [address], 05/07/2025 19:09:03 05/07/20 25 05/07/2025 AUTOD IFF NRBC absolute 0.00 x10 0.00-0 .01 Not Available [facility] [address] [place] [address], [address], 05/07/2025 19:09:03 05/07/20 25 05/09/2025 C URINE [...] mptiv e and Prote us speci es WI ELIMI NARY REPOR TS Preli minar y Repor t [] Verif ied Date/ Time: 2024 08:17 CDT 40,00 0 cfu/m l Mixed presu mptiv e and Prote us speci es Not Available [facility] [address] [place] [address], [address], 05/09/2025 08:43:01 05/07/20 25 05/07/2025 UACS color Pauline Not Available [facility] [address] [place] [address], [address], 05/07/2025 19:09:16 05/07/20 25 05/07/2025 UACS appearance Clear Not Avail able [address], [address], 05/07/2025 19:09:16 05/07/20 25 05/07/2025 UACS specific gravity 1.016 1.003- 1.035 Not Available [address], [address], 05/07/2025 19:09:16 05/07/20 25 05/07/2025 UACS pH urine 6.0 5.0-8. 0 Not Available [address], [address], 05/07/2025 19:09:16 05/07/20 25 05/07/2025 UACS protein 1+ abnormal Not Availa ble [facility] - [address], [address], 05/07/2025 19:09:16 05/07/20 25 05/07/2025 UACS urine glucose Negati ve Not Available [address], [address], 05/07/2025 19:09:16 05/07/20 25 05/07/2025 UACS ketones Negati ve Not Available [address], [address], 05/07/2025 19:09:16 05/07/20 25 05/07/2025 UACS urine bilirubin Negati ve Not Available [address], [address], 05/07/2025 19:09:16 05/07/20 25 05/07/2025 UACS urine HGB 1+ abnormal Not Avai lable [facility] - [address], [address], 05/07/2025 19:09:16 05/07/20 25 05/07/2025 UACS nitrite Positi ve abnormal Not Available [address], [address], 05/07/2025 19:09:16 05/07/20 25 05/07/2025 UACS leukocyte esterase 1+ abnormal Not Available [place] [address], [address], 05/07/2025 19:09:16 05/07/20 25 05/07/2025 UACS urobilinogen >=4.0 abnormal Refer ence Range : <=1 Not Available [address], [address], 05/07/2025 19:09:16 05/07/20 25 05/07/2025 UACS urine WBCs 26-50 abnormal Refer ence Range : <=5 Not Available [address], [address], 05/07/2025 19:09:16 05/07/2005/07/2025 UACS urine RBCs 3-5 abnormal Refer ence Range : <=2 Not Available [address], [address], 05/07/2025 19:09:16 05/07/2005/07/2025 UACS squamous epithelial cells 3+ Refer ence Range : <=3+ Not Available [address], [address], 05/07/2025 19:09:16 05/07/2005/07/2025 UACS bacteria Trace abnormal Refer ence Range : <=Tra ce, Non-C ath Not Available [address], [address], 05/07/2025 19:09:16 05/07/20 25 05/07/2025 UACS transitional epithelial cells Few Refer ence Range : <=2+ Not Available [place] - [facility] [address] [place] [address], [address], 05/07/2025 19:09:16 05/07/2005/07/2025 UACS hyaline casts 1 /lpf 0-2 Not Available [place] [facility] [address] [place] [address], [address], 05/07/2025 19:09:16 05/07/2005/07/2025 UACS UA mucous Presen t Not Available [place] - [facility] [address] [place] [address], [address], 05/07/2025 19:09:16 05/07/2005/07/2025 UACS urine ascorbic acid Negati ve Ascor bic acid can inter fere with the detec tion of blood , gluco se, and nitri te. Not Available [place] - [facility] [address] [place] [address], [address], 05/07/2025 19:09:16 05/07/2005/08/2025 C URINE urine culture (new) abnormal Print [...] 2024 17:22 CDT FREE TEXT SOURC E: WI ELIMI NARY REPOR TS Preli minar y Repor t [] Verif ied Date/ Time: 2024 08:17 CDT 40,00 0 cfu/m l Mixed presu mptiv e and Prote us speci es Not Available [facility] [address] [place] [address], [address], 05/08/2025 09:17:23 05/18/20 25 05/18/2025 LIPAS E lipase 33 U/L 8 - 57 Not Available [facility] [address] [place], [address], 05/18/2025 06:33:26 05/18/20 25 05/18/2025 COMPL ETE METAB OLIC PANEL sodium 142 mmol/ L 136 - 145 Not Available [facility] [address] [place], [address], 05/18/2025 06:33:22 05/18/20 25 05/18/2025 COMPL ETE METAB OLIC PANEL potassium 3.6 mmol/ L 3.5 - 5.1 Not Available [place] [facility] [address] [place], [address], 05/18/2025 06:33:22 05/18/20 25 05/18/2025 COMPL ETE METAB OLIC PANEL chloride 111 mmol/ L 98 - 107 high Not Available [facility] [address] [place], [address], 05/18/2025 06:33:22 05/18/20 25 05/18/2025 COMPL ETE METAB OLIC PANEL CO2 24 mmol/ L 22 - 28 Not Available [place] - [facility] [address] [place], [address], 05/18/2025 06:33:22 05/18/20 25 05/18/2025 COMPL ETE METAB OLIC PANEL glucose 132 mg/dL 70 - 105 high Not Available [facility] [address] [place], [address], 05/18/2025 06:33:22 05/18/20 25 05/18/2025 COMPL ETE METAB OLIC PANEL BUN 16 mg/dL 7 - 18 Not Available [place] [facility] [address] [place], [address], 05/18/2025 06:33:22 05/18/20 25 05/18/2025 COMPL ETE METAB OLIC PANEL creatinine 0.82 mg/dL 0.44 - 1.24 Not Available [place] [facility] [address] [place], [address], 05/18/2025 06:33:22 05/18/20 25 05/18/2025 COMPL ETE METAB OLIC PANEL total protein 6.4 g/dL 6.0 - 8.3 Not Available [place] [facility] - [facility] [address] [place], [address], 05/18/2025 06:33:22 05/18/20 25 05/18/2025 COMPL ETE METAB OLIC PANEL albumin 3.4 g/dL 3.5 - 5.0 low Not Available [place] [facility] [address] [place], [address], 05/18/2025 06:33:22 05/18/20 25 05/18/2025 COMPL ETE METAB OLIC PANEL T bilirubin 0.5 mg/dL 0.2 - 1.0 Not Available [place] [facility] - [facility] [address] [place], [address], 05/18/2025 06:33:22 05/18/20 25 05/18/2025 COMPL ETE METAB OLIC PANEL SGPT 20 IU/L 10 - 40 Not Available [place] [facility] - [facility] [address] [place], [address], 05/18/2025 06:33:22 05/18/20 25 05/18/2025 COMPL ETE METAB OLIC PANEL alk phos 127 IU/L 32 - 92 high Not Available [place] - [facility] [address] [place], [address], 05/18/2025 06:33:22 05/18/20 25 05/18/2025 COMPL ETE METAB OLIC PANEL SGOT 23 IU/L 10 - 42 Not Available [place] - [facility] [address] [place], [address], 05/18/2025 06:33:22 05/18/20 25 05/18/2025 COMPL ETE METAB OLIC PANEL calcium 9.0 mg/dL 8.4 - 10.2 Not Available [place] - [facility] [address] [place], [address], 05/18/2025 06:33:22 05/18/20 25 05/18/2025 COMPL ETE METAB OLIC PANEL age 54 yr Not Available [place] - [facility] [address] [place], [address], 05/18/2025 06:33:22 05/18/2005/18/2025 COMPL ETE METAB OLIC [...] se(CK D) is prese nt. Not Available [place] - [facility] [address] [place], [address], 05/18/2025 06:33:22 05/18/2005/18/2025 CBC-C OMPLE TE WBC 7.0 10^3u L 4.0 - 10.8 Not Available [place] - [facility] [address] [place], [address], 05/18/2025 06:15:17 05/18/2005/18/2025 CBC-C OMPLE TE RBC 3.67 10^6u L 3.80 - 5.20 low Not Available [place] - [facility] [address] [place], [address], 05/18/2025 06:15:17 05/18/20 25 05/18/2025 CBC-C OMPLE TE hemoglobin 10.2 g/dL 11.7 - 16.0 low Not Available [place] - [facility] [facility] [address] [place], [address], 05/18/2025 06:15:17 05/18/2005/18/2025 CBC-C OMPLE TE hematocrit 30.4 % 35.0 - 47.0 low Not Available [place] - [facility] [address] [place], [address], 05/18/2025 06:15:17 05/18/2005/18/2025 CBC-C OMPLE TE MCV 83 fL 80 - 100 Not Available [place] - [facility] [address] [place], [address], 05/18/2025 06:15:17 05/18/2005/18/2025 CBC-C OMPLE TE MCH 28 pg 28 - 33 Not Available [place] - [facility] [address] [place], [address], 05/18/2025 06:15:17 05/18/2005/18/2025 CBC-C OMPLE TE MCHC 34 g/dL 32 - 36 Not Available [place] - [facility] [address] [place], [address], 05/18/2025 06:15:17 05/18/2005/18/2025 CBC-C OMPLE TE RDW 15.0 % 11.5 - 15.5 Not Available [place] Only - [facility] [address] [place], [address], 05/18/2025 06:15:17 05/18/2005/18/2025 CBC-C OMPLE TE platelet 204 10^3u L 140 - 440 Not Available [place] Only - [facility] [address] [place], [address], 05/18/2025 06:15:17 05/18/2005/18/2025 CBC-C OMPLE TE MPV 7.4 fL 7.5 - 11.0 low Not Available [place] - [facility] [address] [place], [address], 05/18/2025 06:15:17 05/18/2005/18/2025 CBC-C OMPLE TE %neutrophils 53.2 % 40.0 - 75.0 Not Available [place] - [facility] [address] [place], [address], 05/18/2025 06:15:17 05/18/2005/18/2025 CBC-C OMPLE TE %lymphocytes 31.5 % 15.0 - 45.0 Not Available [place] - [facility] [address] [place], [address], 05/18/2025 06:15:17 05/18/2005/18/2025 CBC-C OMPLE TE %monocytes 11.0 % 2.0 - 12.0 Not Available [place] - [facility] [address] [place], [address], 05/18/2025 06:15:17 05/18/2005/18/2025 CBC-C OMPLE TE %eosinophils 2.9 % 0.0 - 5.0 Not Available [place] - [facility] [address] [place], [address], 05/18/2025 06:15:17 05/18/2005/18/2025 CBC-C OMPLE TE %basophils 1.4 % 0.0 - 2.0 Not Available [place] - [facility] [address] [place], [address], 05/18/2025 06:15:17 05/18/2005/18/2025 CBC-C OMPLE TE neutrophil 3.8 10^3/ uL 1.7 - 7.0 Not Available [place] - [facility] [address] [place], [address], 05/18/2025 06:15:17 05/18/2005/18/2025 CBC-C OMPLE TE lymphocyte 2.2 10^3/ uL 0.9 - 3.7 Not Available [place] - [facility] [address] [place], [address], 05/18/2025 06:15:17 05/18/2005/18/2025 CBC-C OMPLE TE monocyte 0.8 10^3/ uL 0.2 - 0.8 Not Available [place] - [facility] [address] [place], [address], 05/18/2025 06:15:17 05/18/2005/18/2025 CBC-C OMPLE TE eosinophil 0.2 10^3/ uL 0.0 - 0.5 Not Available [place] - [facility] [address] [place], [address], 05/18/2025 06:15:17 05/18/2005/18/2025 CBC-C OMPLE TE basophil 0.1 10^3/ uL 0.0 - 0.2 Not Available [place] - [facility] [address] [place], [address], 05/18/2025 06:15:17 05/18/2005/18/2025 CBC-C OMPLE TE mdw 16.12 0.00 - 20.00 {CD] Not Available [place] - [facility] [address] [place], [address], 05/18/2025 06:15:17 05/18/20 05/18/2025 CBC-C OMPLE TE manual diff NOT INDICA MICHELLE Not Available [place] [facility] - [facility] [address] [place], [address], 05/18/2025 06:15:17 05/18/20 25 05/18/2025 LACTI C ACID lactic acid 1.05 mmol/ L 0.50 - 2.20 Not Available [place] - [facility] [address] [place], [address], 05/18/2025 06:12:25 05/18/20 25 05/21/2025 CULTU RE/UR INE results _CULT URE URINE _ Not Available [place] - [facility] [address] [place], [address], 05/21/2025 08:28:50 05/18/20 25 05/21/2025 CULTU RE/UR INE final report CLEAN CATCH SPECIM EN _>100 ,000_ cfu/m l____ ___ 05/21.0 727.C ML. _MIXE D_GRA M_POS ITIVE _AND_ NEGAT IVE_F LORA_ ___ 05/21.0 727.C ML. SET PREDO MINAN T ORGAN ISMS Micro biolo gy Not Available [place] - [facility] [address] [place], [address], 05/21/2025 08:28:50 05/18/20 25 05/21/2025 CULTU RE/UR INE results Speci [place] Sourc [place] 91995 0001 Colle ction Date 05/18 Colle ction Time 04:42 Speci men Note: Rece[place] pt Date Exam Id. No: [id number] Exam Statu s Compl etion Date 05/20 [...] PREDO MINAN T ORGAN ISMS Not Available [place] - [facility] [address] [place], [address], 05/21/2025 08:28:50 05/18/2005/18/2025 URINA LYSIS color YELLOW normal : yellow Not Available [place] - [facility] [address] [place], [address], 05/18/2025 06:03:49 05/18/2005/18/2025 URINA LYSIS character HAZY normal : clear Not Available [place] - [facility] [address] [place], [address], 05/18/2025 06:03:49 05/18/2005/18/2025 URINA LYSIS spec. grav 1.015 normal : 1.003- 1.029 Not Available [place] - [facility] [address] [place], [address], 05/18/2025 06:03:49 05/18/20 25 05/18/2025 URINA LYSIS pH 7.0 normal : 4.5 - 7.8 Not Available [place] - [facility] [address] [place], [address], 05/18/2025 06:03:49 05/18/2005/18/2025 URINA LYSIS leukocytes 2+ normal : negati ve Not Available [place] - [facility] [address] [place], [address], 05/18/2025 06:03:49 05/18/2005/18/2025 URINA LYSIS nitrite NEGATI VE normal : negati ve Not Available [place] - [facility] [address] [place], [address], 05/18/2025 06:03:49 05/18/2005/18/2025 URINA LYSIS protein NEGATI VE normal : negati ve Not Available [place] - [facility] [address] [place], [address], 05/18/2025 06:03:49 05/18/2005/18/2025 URINA LYSIS glucose NEGATI VE normal : negati ve Not Available [place] [facility] - [facility] [address] [place], [address], 05/18/2025 06:03:49 05/18/2005/18/2025 URINA LYSIS ketones NEGATI VE normal : negati ve Not Available [place] - [facility] [address] [place], [address], 05/18/2025 06:03:49 05/18/2005/18/2025 URINA LYSIS urobilinogen 0.2 normal : 0.2 - 1.0 Not Available [place] - [facility] [address] [place], [address], 05/18/2025 06:03:49 05/18/2005/18/2025 URINA LYSIS bilirubin NEGATI VE normal : negati ve Not Available [place] - [facility] [address] [place], [address], 05/18/2025 06:03:49 05/18/20 25 05/18/2025 URINA LYSIS blood NEGATI VE normal : negati ve MICRO SCOPI C Not Available [place] - [facility] [address] [place], [address], 05/18/2025 06:03:49 05/18/20 25 05/18/2025 URINA LYSIS WBC/hpf 20-30 normal : 0-5 hpf CULTU RE TO FOLLO W PER [place] Not Available [place] - [facility] [address] [place], [address], 05/18/2025 06:03:49 05/18/20 25 05/18/2025 URINA LYSIS RBC/hpf 5-10 normal : 0-3 hpf Not Available [place] - [facility] [address] [place], [address], 05/18/2025 06:03:49 05/18/20 25 05/18/2025 URINA LYSIS epith/hpf 30-50 normal : 0-5 hpf Not Available [place] - [facility] [address] [place], [address], 05/18/2025 06:03:49 05/18/20 25 05/18/2025 URINA LYSIS cast/lpf NONE SEEN normal : 0-4 lpf Not Available [place] - [facility] [address] [place], [address], 05/18/2025 06:03:49 05/18/20 25 05/18/2025 URINA LYSIS crystals NONE SEEN normal : negati ve Not Available [place] [facility] - [facility] [address] [place], [address], 05/18/2025 06:03:49 05/18/20 25 05/18/2025 URINA LYSIS bacteria 1+ normal : negati ve abnormal Not Available [place] - [facility] [address] [place], [address], 05/18/2025 06:03:49 05/18/20 25 05/18/2025 URINA LYSIS other MUCUS 1+ Not Available [place] [facility] - [facility] [address] [place], [address], 05/18/2025 06:03:49 05/26/2005/26/2025 UACS color Yellow Not Available [place] - [facility] [address] [place] [address], [address], 05/26/2025 09:18:45 05/26/2005/26/2025 UACS appearance Clear Not Avail able [place] - [facility] [address] [place] [address], [address], 05/26/2025 09:18:45 05/26/2005/26/2025 UACS specific gravity 1.013 1.003- 1.030 Not Available [place] - [facility] [address] [place] [address], [address], 05/26/2025 09:18:45 05/26/20 25 05/26/2025 UACS pH urine 6.0 4.5-7. 5 Not Available [place] - [facility] [address] [place] [address], [address], 05/26/2025 09:18:45 05/26/20 25 05/26/2025 UACS protein 30 abnormal Not Availa ble [place] - [address], [address], 05/26/2025 09:18:45 05/26/2005/26/2025 UACS urine glucose Negati ve Not Available [place] [facility] - [facility] [address] [place] [address], [address], 05/26/2025 09:18:45 05/26/20 25 05/26/2025 UACS ketones Negati ve Not Available [place] [facility] - [facility] [address] [place] [address], [address], 05/26/2025 09:18:45 05/26/20 25 05/26/2025 UACS urine bilirubin Negati ve Not Available [address], [address], 05/26/2025 09:18:45 05/26/20 25 05/26/2025 UA urine HGB Negati ve Not Available [address], [address], 05/26/2025 09:18:45 05/26/20 25 05/26/2025 UACS nitrite Negati ve Not Available [address], [address], 05/26/2025 09:18:45 05/26/20 25 05/26/2025 UACS leukocyte esterase Large abnormal Not Available [address], [address], 05/26/2025 09:18:45 05/26/20 25 05/26/2025 UA urobilinogen Normal Not Dalila ilable [address], [address], 05/26/2025 09:18:45 05/26/20 25 05/26/2025 UA urine WBCs 10 /hpf 0-4 high Not Avail able [address], [address], 05/26/2025 09:18:45 05/26/20 25 05/26/2025 UA urine RBCs 1 /hpf 0-2 Not Avail able [address], [address], 05/26/2025 09:18:45 05/26/20 25 05/26/2025 UACS squamous epithelial cells 6 /hpf 0-5 high Not Available [address], [address], 05/26/2025 09:18:45 05/26/20 25 05/26/2025 UACS bacteria Occasi onal abnormal Not Available [address] [place] [address], [address], 05/26/2025 09:18:45 05/26/20 25 05/26/2025 UACS transitional epithelial cells 1 /hpf 0-1 Not Available [place] - [facility] [address] [place] [address], [address], 05/26/2025 09:18:45 05/26/20 25 05/27/2025 C URINE [...] work- up is neede d. Not Available [place] - [facility] [address] [place] [address], [address], 05/27/2025 14:07:20 05/26/20 25 05/26/2025 BN PEPTI DE BNP 18 pg/mL 0-72 Not Available [place] - [facility] [address] [place] [address], [address], 05/26/2025 08:08:43 05/26/20 25 05/26/2025 DIMER D-dimer test 0.45 mcg/m L <=0.50 D-Dim ers are the resul t of fibri nolyt ic break down of cross -link ed fibri n. [place]rbanna tions indic ate incre ased fibri nolys [...] nogen equiv alent units (feu) Not Available [place] - [facility] [address] [place] [address], [address], 05/26/2025 07:28:09 05/26/20 25 05/26/2025 HSTRO P [...] calcu late the delta . Not Available [place] - [facility] [address] [place] [address], [address], 05/26/2025 07:13:31 05/26/20 25 05/26/2025 EGFR eGFR [...] [facility] Only - [facility] [address] [place] [address], [address], 05/26/2025 07:10:12 05/26/2005/26/2025 MG magnesium 1.8 mg/dL 1.9-2. 7 low Not Available [facility] Only - [facility] [address] [place] [address], [address], 05/26/2025 07:10:11 05/26/2005/26/2025 CMP sodium 137 mmol/ L 136-14 5 Not Available [place] [facility] - [facility] [address] [place] [address], [address], 05/26/2025 07:10:10 05/26/2005/26/2025 CMP potassium 3.9 mmol/ L 3.5-5. 1 Not Available [facility] Only - [facility] [address] [place] [address], [address], 05/26/2025 07:10:10 05/26/2005/26/2025 CMP chloride 104 mmol/ L 98-107 Not Available [place] [facility] - [facility] [address] [place] [address], [address], 05/26/2025 07:10:10 05/26/2005/26/2025 CMP CO2 24 mmol/ L 21-31 Not Available [facility] Only - [facility] [address] [place] [address], [address], 05/26/2025 07:10:10 05/26/2005/26/2025 CMP BUN 19 mg/dL 7-25 Not Available [place] [facility] - [facility] [address] [place] [address], [address], 05/26/2025 07:10:10 05/26/2005/26/2025 CMP creatinine 1.2 mg/dL 0.6-1. 3 Not Available [place] [facility] - [facility] [address] [place] [address], [address], 05/26/2025 07:10:10 05/26/2005/26/2025 CMP glucose 164 mg/dL 70-105 high Not Availabl e [place] Only - [facility] [address] [place] [address], [address], 05/26/2025 07:10:10 05/26/2005/26/2025 CMP calcium 9.4 mg/dL 8.6-10 .3 Not Available [place] [facility] - [facility] [address] [place] [address], [address], 05/26/2025 07:10:10 05/26/2005/26/2025 CMP total protein 6.7 gm/dL 6.0-8. 3 Not Available [place] [facility] - [facility] [address] [place] [address], [address], 05/26/2025 07:10:10 05/26/2005/26/2025 CMP albumin 4.0 gm/dL 3.5-5. 7 Not Available [place] [facility] - [facility] [address] [place] [address], [address], 05/26/2025 07:10:10 05/26/2005/26/2025 CMP bilirubin (total) 0.7 mg/dL 0.3-1. 0 Not Available [place] [facility] - [facility] [address] [place] [address], [address], 05/26/2025 07:10:10 05/26/20 25 05/26/2025 CMP AST 23 IU/L 13-39 Not Available [place] [facility] - [facility] [address], [address], 05/26/2025 07:10:10 05/26/20 25 05/26/2025 CMP alk phos 135 IU/L 34-104 high Not Availab le [place] - [facility] [address] [place] [address], [address], 05/26/2025 07:10:10 05/26/20 25 05/26/2025 CMP ALT 16 IU/L 7-52 Not Available [place] [facility] - [facility] [address] [place] [address], [address], 05/26/2025 07:10:10 05/26/20 25 05/26/2025 CMP anion gap 9 8-16 Anion gap calcu lated using formu la: Na - (Cl + CO2) Measu red total CO2 is used in place of HCO3 Not Available Sc Only - [facility] [address] [place] [address], [address], 05/26/2025 07:10:10 05/26/2005/26/2025 DIFF neutrophils 60 % 47-67 Not Avai lable [place] - [facility] [address] [place] [address], [address], 05/26/2025 06:44:31 05/26/2005/26/2025 DIFF lymphocytes 27 % 25-45 Not Avai lable Sc Only - [facility] [address], [address], 05/26/2025 06:44:31 05/26/2005/26/2025 DIFF monocytes 9 % 1-9 Not Availa ble [place] - [facility] [address] [place] [address], [address], 05/26/2025 06:44:31 05/26/2005/26/2025 DIFF eosinophils 3 % 0-6 Not Avai lable [place] - [facility] [address] [place] [address], [address], 05/26/2025 06:44:31 05/26/2005/26/2025 DIFF basophils 1 % 0-2 Not Availa ble Sc Only - [address], [address], 05/26/2025 06:44:31 05/26/2005/26/2025 DIFF absolute neutrophils 5.1 K/cum m 1.8-6. 5 Not Available [place] - [address], [address], 05/26/2025 06:44:31 05/26/2005/26/2025 DIFF absolute lymphocytes 2.2 K/cum m 0.9-3. 0 Not Available [place] - [address], [address], 05/26/2025 06:44:31 05/26/2005/26/2025 DIFF absolute monocytes 0.8 K/cum m 0.2-0. 8 Not Available [place] - [address], [address], 05/26/2025 06:44:31 05/26/2005/26/2025 DIFF absolute eosinophils 0.3 K/cum m 0.0-0. 4 Not Available [place] - [address], [address], 05/26/2025 06:44:31 05/26/2005/26/2025 DIFF absolute basophils 0.1 K/cum m 0.0-0. 2 Not Available [place] - [address], [address], 05/26/2025 06:44:31 05/26/2005/26/2025 CBC W/ AUTO DIFF WBC 8.4 K/cum m 3.4-9. 4 Not Available [place] - [address], [address], 05/26/2025 06:44:29 05/26/2005/26/2025 CBC W/ AUTO DIFF RBC 4.05 M/cum m 4.20-5 .40 low Not Available [place] [facility] - [facility] [address] [place] [address], [address], 05/26/2025 06:44:29 05/26/2005/26/2025 CBC W/ AUTO DIFF hemoglobin 11.2 gm/dL 12.0-1 6.0 low Not Available [place] [facility] - [facility] [address] [place] [address], [address], 05/26/2025 06:44:29 05/26/2005/26/2025 CBC W/ AUTO DIFF hematocrit 33 % 37-47 low Not Available [place] [facility] - [facility] [address] [place] [address], [address], 05/26/2025 06:44:29 05/26/2005/26/2025 CBC W/ AUTO DIFF MCV 81 81-94 Not Available [place] - [facility] [address] [place] [address], [address], 05/26/2025 06:44:29 05/26/2005/26/2025 CBC W/ AUTO DIFF MCH 27.6 pg 27.5-3 3.2 Not Available [place] [facility] - [facility] [address] [place] [address], [address], 05/26/2025 06:44:29 05/26/2005/26/2025 CBC W/ AUTO DIFF MCHC 34.0 g/dL 31.0-3 6.0 Not Available [place] Only - [facility] [address] [place] [address], [address], 05/26/2025 06:44:29 05/26/2005/26/2025 CBC W/ AUTO DIFF RDW 14.4 % 11.7-1 5.5 Not Available [place] [facility] - [facility] [address] [place] [address], [address], 05/26/2025 06:44:29 05/26/20 25 05/26/2025 CBC W/ AUTO DIFF platelets 280 K/cum m 140-41 0 Not Available [place] [facility] - [facility] [address] [place] [address], [address], 05/26/2025 06:44:29 05/26/20 25 05/26/2025 CBC W/ AUTO DIFF MPV 8.4 mL Not Available [place] [facility] - [facility] [address] [place] [address], [address], 05/26/2025 06:44:29 05/07/20 25 05/07/2025 CT, abdom en + pelvi s, w/o contr ast [facility] [address] [place] [address] Name: TL WHITE Age: 54 : 1970 Exam Date: 2024 ACCESS ION: [id number] ORDERI WERNER MD: ANKUSH JOEL EXAM: CT [...] the subcut aneous as fat of the holistic health practitioner ior abdomi nal wall/u pper glutea l [...] Signed : 17:57 Shelley Patterson MD INTERFACE [place] Only - [facility] [address], [place], [address], 05/07/2025 19:01:25 05/18/[address], abdom en + pelvi s, w/ contr ast [facility] [address] [place]. [address] ------ ---NAM E----- ---- NUMBER SEX AGE ADMIT DISC. XRAY# F/C TYPE RICE KATHLE EN P [id number] F 54 5 [id number] GIL E/R DATE OF : 1970 M/R# [id number] PH#: [id number] LOCATI ON: TRANSC RIBED: 6:22 CT A[place] 16471 COMPLE MICHELLE: 4:39 TSY [id number] {REASO N FOR PROCED URE: Abdomi nal [...] 3.5 x 3.1 cm cyst at the [facility] bed. No pyelon [...] 3.5 x 3.1 cm cyst at the [facility] bed. Electr onical ly Signed By: SHADI Slater MD , Date/T blayne: 06:22 INTERFACE [place] Only - [facility] [address] [facility], [place], [address], 05/18/2025 07:26:44 05/21/202025 imagi ng/di agnos tic resul t No observ ation record ed. [email or web address] [facility] - Radiology [address] [facility], [place], [address], 05/23/2025 13:18:15 05/22/20 25 05/13/2025 US, doppl er echoc ardio gram No observ ation record ed. BARCODE Not Available 2024 16:02:31 05/26/20 25 05/26/2025 D chest 1 view [facility] [address] [place], [place] [address] Name: TL WHITE Age: 54 : 1970 Exam Date: 2024 ACCESS ION: [id number] BLAISE CALDERA MD: ISABELLA GARCES EXAM: Chest single view Date: 2024 05:39 Compar ras: Chest X-ray Octobe r 2023 Histor y: Patien t compla ins of chest pain and shortn ess of breath starti ng yester day. Patien t has a histor [...] MD, Sergo Hussein INTERFACE Sc Only - [facility] [address] [place] [address], [address], 05/26/2025 07:48:51 05/26/20 25 05/26/2025 XR, chest , 2 view No observ ation record ed. [facility] (Radiology) [address] [place] [address], [address], 05/26/2025 14:34:26 05/28/[address] head scan w/o contr ast [facility] [address] [place]. [address] ------ ---NAM E----- ---- NUMBER SEX AGE ADMIT DISC. XRAY# F/C TYPE ZEKE BOOTHE EN P [id number] 4 F 54 5 [id number] GIL E/R DATE OF : 1970 M/R# [id number] PH#: [id number] LOCATI ON: TRANSC RIBED: 14:29 CT HEAD SCAN W/[place] [address] COMPLE MICHELLE: 13:58 TSY 27139 {REASO N FOR PROCED URE: Headac he [...] dictat ed remote ly by a [facility] Rad[facility] ogist in [place], [place]. Electr onical ly Signed By: MEET BROWN MD , Date/T blayne: 14:29 INTERFACE [place] - [facility] [address] [place], [address], 05/28/2025 15:32:34 05/28/[address], cervi radha spine , w/o contr ast [facility] [address] [place]. [address] ------ ---NAM E----- ---- NUMBER SEX AGE ADMIT DISC. XRAY# F/C TYPE ZEKE BOOTHE EN P [id number] 4 F 54 5 [id number] GIL E/R DATE OF : 1970 M/R# [id number] PH#: [id number] LOCATI ON: TRANSC RIBED: 14:31 CT C-SPIN E [place] [address] COMPLE MICHELLE: 13:58 TSY 78883 {REASO N FOR PROCED URE: Neck Pain [...] dictat ed remote ly by a [facility] Radiol ogist in [place]. Electr onical ly Signed By: MEET BROWN MD , Date/T blayne: 14:31 INTERFACE [place] - [facility] [address] , [place], [address], 05/28/2025 15:35:09 05/28/[address], thora cic spine , w/o contr ast [facility] [address] [place]. [address] ------ ---NAM E----- ---- NUMBER SEX AGE ADMIT DISC. XRAY# F/C TYPE ZEKE Salgado [id number] F 54 5 [id number] GIL E/R DATE OF : 1970 M/R# [id number] #: [id number] LOCATI ON: TRANSC RIBED: 14:35 CT THORAC IC SPINE W/O CONTRA [id number] COMPLE MICHELLE: 13:58 TSY [id number] {REASO N FOR PROCED URE: Pain PHYSIC [...] dictat ed remote ly by a [facility] Radiol ogist in [place]. Electr onical ly Signed By: MEET BROWN MD , Date/T blayne: 14:35 INTERFACE [place] - [facility] [address] [place], [address], 05/28/2025 15:38:22 06/05/20 25 06/03/2024 CT, angio gram, chest , w/ contr ast No observ ation record ed. [email or web address] Not Available 2024 16:05:59 06/07/20 25 06/07/2025 XR, chest , 2 [place] [address] Teleph [phone] Name: TL WHITE [id number] am Date: 2024 [...] 3:01 PM cc: Page PAGE 1 of [facility] 1 MIKE Sc Only - [facility] [address] [facility], [place], [address], 06/08/2025 14:33:15 07/27/20 25 07/27/2025 CT, abdom en + pelvi s, w/ contr ast [facility] [address] [place] [address] [id number] [phone] Name: TL WHITE Age: 54 : 1970 Exam Date: 2024 ACCESS ION: [id number] ORDERI WERNER MD: MILE [place] EXAMIN ATION: CT ABDOME N/PELV IS WITH [...] ing approx imatel y 1.1 cm in [facility] er. There is no hydron ephros is. [...] soft tissue nodule s and dystro phic holistic health practitioner ior soft tissue calcif icatio ns, contin [...] : 20:47 Tye hernandez MD, Isabella EGAN [place] - [facility] Rad [address] [place] [address], [address], 07/27/2025 21:51:11 11/18/20 25 08/01/2025 imagi ng/di agnos tic resul t No observ ation record ed. [email or web address] [facility] - Radiology [address] [place], [address], 08/01/2025 17:37:33 08/03/20 25 08/03/2025 D abdom en 1 view [facility] [address] [place] [address] Name: TL WHITE Age: 54 : 1970 Exam Date: 2024 ACCESS ION: [id number] BLAISE CALDERA MD: BRIDGET BOWLES EXAM: Abdome [...] Signed : 20:05 Juwan Metzger MD INTERFACE [place] - [facility] Rad [address] [place] [address], [id number], 08/03/2025 21:09:24 Result Notes None recorded. Problems Name Problem SNOMED Code Status Onset Date Resolution Date Notes Provider Name and Address Organization Details Recorded Time Migraine 66575379 [facility] Hypertens jozef disorder 81607226 [facility] 2020 [facility] 17:00:48 Atypical squamous cells of undetermi tiffanie significa nce on cervical Papanicol aou smear 480055743 Active 2020 [facility] 17:00:48 Second degree uterine prolapse 4366933 Active 2022 [facility] 17:[facility] Chest pain 08265052 Active 2022 KYA PRITCHARD NP [address] [place] [address], [id number] , [facility] 5 16:44:36 Preinfarc tion syndrome 7426207 [facility] 2022 [facility] 17:00:48 Coronary arteriosc lerosis 29927048 Active 2023 KYA PRITCHARD NP [address] [address] [place] [address], [address] , [facility] 5 17:10:30 Essential hypertens ion 25346138 Active 2023 KYA PRITCHARD NP [address] [place] [address], [address] , [facility] 5 16:44:21 Hyperchol esterolem ia 10984948 Active 2023 [facility] 4 16:47:54 Abdominal pain 71641290 Active 2023 Eren Oswald PA-C [address] [place] [address], [address] , [facility] 4 13:05:40 Thoracic radiculop athy 66955920 Active 2023 Kimi Mathis, [employer], DATA SYSTEMS MANAGER [address] [facility] [place], [address] , [facility] 4 14:46:37 Cervical radiculop athy 65221742 Active 2023 Kimi Mathis, [employer], DATA SYSTEMS MANAGER [address] [facility], [place], [address] , [facility] 4 14:46:47 Lumbar spondylos is 042417461 Active 2023 Pauly Vizcaino MD [address] [facility], [place], [address] , [facility] 5 14:49:06 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 62340624295 9106 Active 2023 following with endocrino logy Pauly Vizcaino MD [address] [facility], [facility] [place], [address] , [facility] 5 14:52:00 Spinal arachnoid cyst 477319629 Active 2023 Pauly Vizcaino MD [address] [facility], [facility] [place], [address] , [facility] 5 14:51:11 Morbid obesity 618107618 Active 2024 Pauly Vizcaino MD [address] [facility], [facility] [place], [address] , [facility] 5 14:50:22 Gastropar esis syndrome 634954345 Active 2024 Pauly Vizcaino MD [address] [facility], [place], [address] , [facility] 5 14:53:47 Gastroeso phageal reflux disease 399969375 Active 2024 Paluy Vizcaino MD [address] , [place], [address] , [facility] 5 14:53:56 Dyspnea 005564454 Active 2024 Valeria Baugh, [employer], DATA SYSTEMS MANAGER [address] [facility], [place], [address] , [facility] 5 12:14:35 Pain of left shoulder region Active 2024 Pauly Vizcaino MD [address] , [place], [address] , [facility] 5 15:11:16 Bilateral cramp of muscle of lower limbs 28672991291 268144 Active 2024 Pauly Vizcaino MD [address] [place] [address], [address] , [facility] 5 15:12:21 Fibromyal chuck 557826873 Active 2024 Pauly Vizcaino MD [address] [facility], [place], [address] , [facility] 5 15:19:57 Recurrent major depressio n in remission 55133510 Active 2024 Pauly Vizcaino MD [address] [place] [address], [place], [address] , [facility] 5 15:24:34 Primary insomnia 2485173 Active 2024 Pauly Vizcaino MD [address] [place] [address], [place], [address] , [facility] 5 15:25:40 Swelling of lower limb 048049147 Active 2024 Pauly Vizcaino MD [address] [place] [address], [place], [address] , [facility] 5 16:16:03 Palpitati ons 93621736 Active 2024 Audrey lam, [facility] 5 16:53:19 Dyspnea on exertion 50227307 Active 2024 KYA PRITCHARD NP [address] , [place], [address] , [facility] 5 17:10:27 Hyperlipi demia 03135959 Active 2024 KYA PRITCHARD, JOSE G [address] [facility], [place], [address] , [facility] 5 16:44:26 Edema of lower extremity 205318149 Active 2024 KYA PRITCHARD NP [address] [facility], [place], [address] , [facility] 5 17:34:12 Persisten t depressiv e disorder 1223284627 Active 2024 Melissa Macias PA-C [address] [facility], [facility] [place], [address] , [facility] 5 11:28:54 Restless legs syndrome 78208519 Active 2024 Melissa Macias PA-C [address] [place] [address] [place], [place], [address] , [facility] 5 11:29:39 Atypical chest pain 546015885 Active 2024 Melissa Macias PA-C [address] [place] [address], [place], [address] , [facility] 5 12:45:48 Anemia 197223342 Active 2024 Valeria Baugh APRN, DATA SYSTEMS MANAGER [address] [place], [place] [address], [place], [address] , [facility] 5 12:10:45 Acute kidney injury 72731572 Active 2024 Valeria Baugh APRN, DATA SYSTEMS MANAGER [address] [facility], [place], [address] , [facility] 5 12:13:44 Mycosis 8919707 Active 2024 Valeria Baugh APRN, DATA SYSTEMS MANAGER [address] [facility], [place], [address] , [facility] 5 16:49:11 Obstructi ve sleep apnea syndrome 94703689 Active 2024 [facility] 5 16:01:58 Acute urinary tract infection 748245299 Active 2024 Lawrence Grigsby null, [facility] 5 15:43:42 Alpha-1-a ntitrypsi n deficienc y 00765013 Active 2024 Maximilian Pizarro [facility], [facility] 5 16:23:34 Supravent ricular tachycard ia 1256062 Active 2024 KYA PRITCHARD, JOSE G [address] [facility], [place], [address] , [facility] 5 16:44:22 Abdominal discomfor t 90950184 Active 2024 Kimi giron [facility] 5 10:28:59 Screening colonosco py Active 2024 Kimi giron [facility] 5 10:34:05 Notes:Some problems listed i n Documents: #[id number], #[id number], #[id number] could not be added to this patient's [...] Name and Address Organization Details Recorded Time 9369538 fentanyl medicatio n headache Not available Not available 10/14/20232012 4337 RxNorm React ion: Heada syeda; Nause a; Vomit ing; Comme nt: React ion Date: 23 Aug 2013 Annot ation s: JUVENCIO SIEGEL 2012 9:08P M Per pt repor t.; ; [facility] 5 14:41:09 1699438 prochlorp erazine medicatio n anxiety Not available Not available 05/13/20242017 8704 RxNorm Yoli Sauceda [facility] 5 11:23:17 0320804 sumatript an medicatio n itching Not available Not available 05/13/20242017 57362 RxNorm Brenda Natarajan [facility] 5 14:41:28 2304876 metoclopr amide Not available other Not available Not available 05/13/20242022 6915 RxNorm Brenda Natarajan [facility] 5 14:41:18 9566092 diphenhyd ramine hydrochlo ride medicatio n anxiety rash Not available Not available Not available 05/13/20242017 1362 RxNorm Yoli Sauceda [facility] 5 11:23:17 0968210 Duragesic medicatio n headache Not available Not available 06/22/20242012 47154 8 RxNorm React ion: Heada syeda; Nause a; Vomit ing; Comme nt: React ion Date: 23 Aug 2013 Annot ation s: JUVENCIO SIEGEL 2012 9:08P M Per pt repor t.; ; [facility] 5 14:41:05 3299351 Compazine medicatio n other Not available Not available 11/02/202404825 6 RxNorm irrit abili ty Brenda Natarajan [facility] 5 14:41:50 6868681 Imdur medicatio n anxiety insomnia Not available Not available [facility] 05/30/2025 81832 2 RxNorm Melissa Macias PA-C [address], [place], [address] [place] [address] 5 10:19:27 475055 Biaxin medicatio n nausea Not available Not available 10/12/20232006 03438 9 RxNorm React ion: Nause a; Not Available [facility] 4 21:45:38 979600 sumatript an succinate medicatio n Not available Not available Not available 10/12/20232006 07113 RxNorm React ion: Short ness of breat h; Arrhy thmia ; Not Available [facility] 4 21:45:39 045768 ciproflox acin hydrochlo ride medicatio n Not available Not available Not available 10/12/20232006 25218 RxNorm React ion: Synco pe; Short ness of breat h; [facility] 5 14:40:56 047478 Demerol medicatio n Not available Not available Not available 10/12/20232008 91662 1 RxNorm Comme nt: Annot ation s: GRUND Y, BRAND ON 2008 3:38P M NAUSE A; ; [facility] 5 14:40:59 461543 morphine sulfate medicatio n Not available Not available Not available 10/12/20232008 04987 RxNorm Comme nt: Annot ation s: GRUND Y, BRAND ON 2008 3:39P M NAUSE A; ; [facility] 5 14:41:15 227022 hydromorp basim hydrochlo ride medicatio n Not available Not available Not available 10/12/20232008 56089 7 RxNorm Comme nt: Annot ation s: GRUND Y, BRAND ON 2008 3:39P M NAUSE A; ; Brenda Natarajan [facility] 14:41:12 Medications Name Sig Start Date Stop [...] Available Not Available Not Available Dexcom G7 Facility Maintenance Technician USE PER MANUFACT URER DIRECTIO NS active [...] Updated DateTime 5 170.18 cm 41.7 kg/m2 635742. 57 g 77 /min 14 /min 97 % 130/62 mm[Hg] Yoli Sauceda [facility] 5 09:55:15 Social History Question Answer Notes LastModified by [...] Do You Have A Medical Power Of Planning Aide? Yes [email or web address] Information not available 06/13/2024 What Was The Date Of Your Most Recent Tobacco Screening? 07/04/2025 [email or web address] Information not available 07/04/2025 What Is Your Relationship Status? [email or web address] Information not available 06/13/2024 Has Tobacco Cessation Counseling Been Provided? Yes [email or web address] Information not available 03/28/2025 On What Date Was Tobacco Cessation Counseling Provided? 03/28/2025 [email or web address] Information not available 03/28/2025 Sex: Unknown Functional [...] Time Influenza, recombinant, quadrivalent, PF 1 completed [facility] 11/02/2024 14:40:15 Influenza, recombinant, quadrivalent, PF 0 completed [facility] 11/02/2024 14:40:15 zoster recombinant 1 completed [facility] 11/02/2024 14:40:15 zoster recombinant 1 completed [facility] 11/02/2024 14:40:15 COVID-19, mRNA, LNP-S, PF, 100 mcg/0.5mL dose or 50 mcg/0.25mL dose 1 completed [facility] 11/02/2024 14:40:15 COVID-19, mRNA, LNP-S, PF, 100 mcg/0.5mL dose or 50 mcg/0.25mL dose 1 completed [facility] 11/02/2024 14:40:15 COVID-19, mRNA, LNP-S, PF, 100 mcg/0.5mL dose or 50 mcg/0.25mL dose 1 completed [facility] 11/02/2024 14:40:15 pneumococcal polysaccharide PPV23 1 completed [facility] 11/02/2024 14:40:15 influenza, unspecified formulation 4 completed [facility] 11/02/2024 14:40:15 influenza, unspecified formulation 4 completed [facility] 11/02/2024 14:40:15 influenza, unspecified formulation 3 completed Brenda Natarajan [facility] 11/02/2024 14:40:15 Tdap 7 completed Brenda Natarajan [facility] 11/02/2024 14:40:15 Influenza, split virus, trivalent, preservative 1 completed Brenda Deraser [facility] 11/02/2024 14:40:15 Influenza, split virus, quadrivalent, PF 7 completed Brendaaraseli Natarajan [facility] 11/02/2024 14:40:15 Past Encounters Encounter ID Performer Location Encounter Start Date Encounter Closed Date Diagnosis/Indication Diagnosis SNOMED-CT Code Diagnosis ICD10 Code Diagnosis IMO Codes Diagnosis Note [id number] Melissa Macias PA-C [facility] ([place] [address] [place] [address] 05/30/2025 09:44:32 05/30/2025 14:35:57 Primary insomnia 5656281 F51.01 57339 Dyspnea on exertion 6084 5006 R06.09 628626 Fibromyalgia 472517974 M 79.7 40443 Pain of le ft shoulder region 8513432724 M25.512 98687991 Migraine 47000184 G43.90 9 Obstructiv e sleep apnea syndrome 57330054 G47.33 8592280 Health Concerns Section Related Observation LastModified by Organization Detai ls LastModified Time None Recorded Concern Status LastModified by Organization Details LastModified Time None Recorded Payers Encounter Date Sequence Insurance Name Policy Number Policy Garcia Covered Member ID Garcia Member ID Guarantor Name 05/30/2025 2 [place] [employer] [place] [employer] Leti White [id number] Leti White 05/30/2025 1 [facility] (MEDICARE REPLACEMENT/A DVANTAGE - PPO) [id number] Leti White [id number] Leti White Notes Date Note Type Note Provider Name and Address Organization Details Recorded Time text/html Leti Whiteis a 54 year oldfemalepresenting for care. Date of last pap smear:2Date of last mammogram:04/28/2022 Patient here for follow up for ER visits. Patient has not been sleeping. Patient has been awake since 8 am yesterday currently. Patient only slept 4 1/2 hours from Thursday to Thursday.-hasn't had chest pain for a couple of days-UTI cleared [id number] woman presents for follow-up of severe insomnia [...] urgency, frequency). Melissa Macias PA-C [address] [place] [address], [phone], [facility] 05/30/2025 13:52:29 OBGyn Episode No OBEpisode recorded.
--- OUTSIDE RECORDS SUMMARY | 2025-08-11 13:55 | XMS_ITS ---
Author Organization Unknown Address [address] [place] [phone] Phone Care Team Providers Care Manager Home Improvement Name Role Phone ABOOD ADEL Attending Unavailable CARRILLO COATS Primary Unavailable Social History Type Status Start Date End Date Code Code Syst em Smoking History Never smoker (Never Smoked) 397253050 SNOMED CT Sex Female Vital Signs Vital Sign Value Unit Ava Value Ava Unit Date/Time Recent/Initial? Code Code System Body Mass Index 42.60 kg/m2 06/30/2025 20:01 Initial 49837 -5 [facility] Systolic Blood Pressure 163 mm[Hg] 06/30/2025 20:01 [facility] 8480- 6 [facility] Diastolic Blood Pressure 82 mm[Hg] 06/30/2025 20:01 Initial 8462- 4 [facility] Body Surface Area 2.42 m2 06/30/2025 20:01 Initial 3140- 1 LOINC Height 170.180 0 cm 67.00 in 06/30/2025 20:01 Initial 8302- 2 [facility] O2 Saturation 97 % 2024 20:01 Initial 69875 -5 [facility] Pulse 97.0 /min 06/30/2025 20:01 Initial 8867- 4 [facility] Respiration 20 /min 06/30/20 20:01 Initial 9279- 1 LOINC Temperature 36.9 Alexandrea 98.4 F 06/30/20 20:01 Initial 8310- 5 [facility] Weight 123.38 kg 272.00 lbs 06/30/2025 20:01 Initial 59811 -7 [facility] Medications Medication Start Date End Date Route Frequency Dose Code Code System Medication Instructions Home Meds Zofran 4MG Oral Tablet 05/03/2025 Unknown ORAL EVERY 6 HOURS 1 TABLET 832251 RxNorm TAKE 1 TABLET ORAL EVERY 6 [...] Code Code System CHRONIC NECK PAIN active 478904761976 7 SNOMED-CT DISORDER OF ROTATOR CUFF active 715044517 SNOMED-CT SPRAIN OF LEFT SHOULDER active 68651238714566248 SNOMED-CT CHRONIC BACK PAIN active 856154733 SN OMED-CT CHRONIC MIGRAINE active 831148923 SNO MED-CT DIABETES active 46252462 SNOMED-CT GASTROPARESES active 438162657 SNOMED -CT ERIKA CELL NEOPLASM active 373106177 SNOMED-CT HYPERTENSION active 57099627 SNOMED- CT DRUG SEEKING BEHAVIOR active 36579864 SNOMED-CT MALINGERING active 52714769 SNOMED-C 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 10/24/2024 resolved 50216172 SNOMED-CT Allergies and Adverse Reactions Allergy Substance Reaction Severity Start Date Concern Status Code Code System PROCHLORPERAZINE go crazy (SNOMED-CT: null) Severe Active 8704 RxNorm ISOSORBIDE MONONITRATE SOB, anxiety (SNOMED-CT: null) Active 88167 RxNorm CLARITHROMYCIN Vomiting (SNOMED-CT: 188515741) Severe Active 75672 RxNorm BENADRYL went crazy (SNOMED-CT: null) Severe Active 986467 RxNorm IMITREX Tachycardia (SNOMED-CT: 4874168) Moderate Active 637873 RxNorm Plan of Treatment No Data Found Encounters Encounter Diagnosis Start Date Code Code Sys tem Malingerer [conscious simulation] 06/30/2025 SNOMED-CT Personal Care Team Section
--- OUTSIDE RECORDS SUMMARY | 2025-08-11 13:55 | XMS_ITS | Clinical Summary ---
Author Organization [facility] Address [address] [place] [address] Phone Care Team Providers Care Wharf Helper Name Role Phone Brissa Tijerina MD Primary [...] misc CHANGE SENSOR EVERY 10 DAYS PER TURNTABLE WORKER 02/23/20 25 Active dicyclomine (BENTYL) 20 MG [...] BEDTIME Active Insulin Disposable Pump (Omnipod 5 [id number] Pods Gen 5) misc change pod every [...] Spinal arachnoid cyst 08/08/20202024 Migraine 03/06/2018 05/01/2025 Immunizations Immunization Administration Dates Next Due Influenza, [...] Foot Exam 04/17/2025 Influenza Vaccine (#1) 2025 4, 06/16/2021, 06/28/2020, Additional history exists Insurance Medicare Member Subscriber Plan / Payer (Ef fective 2025-Present) Name:Christopher Leti P Relation to Subscriber:Self Name:Andreea Whitehleen P Payer ID:[id number] (NAIC) Group ID:Not on file Type:Not on file Address: [place] [phone] Medicare Member Subscriber Plan / Payer (Ef fective 2025-) Name:Leti White P Relation to Subscriber:Self Name:Christopher Leit P Payer ID:[id number] (NAIC) Group ID:Not on file Type:Not on file Address: [place] [phone] Medicare Member Subscriber Plan / Payer (Ef fective 2025-Present) Name:Leti White P Relation to Subscriber:Self Name:Christopher Leti P Payer ID:[id number] (NAIC) Group ID:Not on file Type:Not on file Address: [place] [phone] [facility] Medicare [facility] [place] [address] [place] [address] Care Teams Wharf Helper Relationship Specialty Start Date End Date Brissa Tijerina MD [address] [place] [address] PCP - General Family Medicine 04/17/25
--- OUTSIDE RECORDS SUMMARY | 2025-08-11 13:55 | XMS_ITS | Encounter Summary ---
Author Organization [facility] Address [address] [facility] [address] [place] [address] Phone Care Team Providers Care Supervisor Research [employer] Name Role Phone Brissa Tijerina MD Primary Care Provider U shannon Encounter Details Date Type Department Care Team (Late st Contact Info) Description 05/01/2025 Documentation Only [facility] [address] [facility] [address] [place] [address] [place] [address] Social History Tobacco Use Types [...] (HCC) documented in this encounter Care Teams Supervisor [employer] Relationship Specialty Start Date End Date Brissa Tijerina MD [address] [place] [phone] PCP - General Family Medicine 04/17/25 documented as of this encounter
--- OUTSIDE RECORDS SUMMARY | 2025-08-11 13:55 | XMS_ITS | Continuity of Care Document ---
Author Organization [facility], [facility] ([place]) Address [address] [place] [address] Care Team Providers Care Running Instructor Name Role Phone DRAKE FARRIS Naprapath PAULY VIZCAINO Primary Care Provider PAULY VIZCAINO Referring Provider [phone] DELIA HALL Med Dir Assessment Encounter Date Assessment Date Assessment LastModified by Organization Details LastModified Time 08/03/2025 08/03/2025 1. Type 2 Diabet es [...] any questions or concerns in between appointments. [email or web address] Not available 08/03/2025 14:32:53 Plan of Treatment Reminders Order Date Submit Date Provider Last Modified By Organization Details Last Modified Time Details Appointments Estab judy Stoner nt 15.ES T 2024 01:30P M Vinicius Pritchard Not available Not available Not available Estab judy Stoner nt 15.ES T 2025 02:30P M Delia Hall Not available Not available Not available Nurse Surge ry Block 50.LY RG 2025 10:10A M Dr. Lalit Garber Not available Not available Not available ASC Surge ry.LY RG 2025 10:10A M Gastroenterol ogy Not available Not available Not available ASC Surge ry.LY RG 2025 10:10A M Dr. Lalit Garber Not available Not available Not available Pulm Funct ion Metha choli ne.[place] O 2025 02:00P M [facility] Not available Not available Not available Estab judy Stoner nt 15.ES T 2025 11:[address] M [address] Carrol Villagomez Not available Not available [facility] 20[facility] 11:50A M Dr. Shital Mendes Not available Not available Not available Estab ujdy Stoner nt 15.ES T 2025 01:30P M Tiffanie Painting Not available Not available Not available Estab judy Stoner nt 15.ES T 2025 03:00P M Vinicius Pritchard Not available [...] Abnormal Flag Note LastModifiedBy Organization Detail LastModifiedTime 07/25/2007/25/2025 UACS color Yellow Not Available [place] Only - [facility] [address] [place] [address], [id number], 07/25/2025 19:55:43 07/25/20 25 07/25/2025 UACS appearance Hazy Not Avail able [place] Only - [facility] [address] [place] [address], 99601, 07/25/2025 19:55:43 07/25/20 25 07/25/2025 UACS specific gravity 1.013 1.003- 1.035 Not Available [place] - [facility] [address] [place] [address], 81521, 07/25/2025 19:55:43 07/25/20 25 07/25/2025 UACS pH urine 7.0 5.0-8. 0 Not Available [place] - [facility] [address] [place] [address], 13942, 07/25/2025 19:55:43 07/25/20 25 07/25/2025 UACS protein Negati ve Not Available [place] - [facility] [address] [place] [address], 86476, 07/25/2025 19:55:43 07/25/20 25 07/25/2025 UACS urine glucose Negati ve Not Available [place] - [facility] [address] [place] [address], 32155, 07/25/2025 19:55:43 07/25/20 25 07/25/2025 UACS ketones Negati ve Not Available [place] - [facility] [address] [place] [address], 32131, 07/25/2025 19:55:43 07/25/20 25 07/25/2025 UACS urine bilirubin Negati ve Not Available [place] - [facility] [address] [place] [address], 88989, 07/25/2025 19:55:43 07/25/20 25 07/25/2025 UACS urine HGB Negati ve Not Available [place] - [facility] [address] [place] [address], 90542, 07/25/2025 19:55:43 07/25/20 25 07/25/2025 UACS nitrite Negati ve Not Available [place] - [facility] [address] [place] [address], 57123, 07/25/2025 19:55:43 07/25/20 25 07/25/2025 UACS leukocyte esterase 2+ abnormal Not Available [place] - [facility] [address] [place] [address], 97314, 07/25/2025 19:55:43 07/25/20 25 07/25/2025 UACS urobilinogen Negati ve Refer ence Range : <=1 Not Available [facility] [address] [place] [address], 37569, 07/25/2025 19:55:43 07/25/20 25 07/25/2025 UACS urine WBCs 11-25 abnormal Refer ence Range : <=[address] [facility] [address] [place] [address], 05440, 07/25/2025 19:55:43 07/25/20 25 07/25/2025 UACS urine RBCs 0-2 Refer ence Range : <=2 Not Available [facility] [address] [place] [address], 55023, 07/25/2025 19:55:43 07/25/20 25 07/25/2025 UACS squamous epithelial cells 4+ abnormal Refer ence Range : <=3+ Not Available [facility] [address] [place] [address], 95388, 07/25/2025 19:55:43 07/25/20 25 07/25/2025 UACS bacteria 1+ abnormal Refer ence Range : <=Tra ce, Non-C ath Not Available [facility] [address] [place] [address], 31728, 07/25/2025 19:55:43 07/25/20 25 07/25/2025 UACS UA mucous Presen t Not Available [place] - [facility] [address] [place] [address], 03625, 07/25/2025 19:55:43 07/25/20 25 07/25/2025 UACS urine ascorbic acid Negati ve Ascor bic acid can inter fere with the detec tion of blood , gluco se, and nitri te. Not Available [place] Only - [facility] [address] [place] [address], 55564, 07/25/2025 19:55:43 07/25/20 25 07/25/2025 EGFR eGFR 99 mL/mi n/1.7 3m? This eGFR is calcu lated using 2020 CKD-E PI Creat inine equat ion witho ut race modif ier based on the NKF-A SN task force recom menda tions . In most healt hy peopl e, the kennedy l GFR is 90 mL/mi n/1.7 3 m2 or highe r. - A resul t of 60-89 mL/mi n/1.7 3 m2 witho ut kidne y damag e may be kennedy l in some peopl e (such as [...] se (CKD) is prese nt. Not Available [place] Only - [facility] [address] [place] [address], 44561, 07/25/2025 20:03:32 07/25/20 25 07/25/2025 MG magnesium 1.8 mg/dL 1.8-2. 4 Not Available [place] - [facility] [address] [place] [address], 44512, 07/25/2025 20:03:31 07/25/20 25 07/25/2025 LPSE lipase,serum 26 u/L 16-77 Not Dalila ilable [place] Only - [facility] [address] [place] [address], 79123, 07/25/2025 20:03:30 07/25/20 25 07/25/2025 LDH LD 158 u/L 81-234 Not Available [facility] [address] [place] [address], 39342, 07/25/2025 20:03:28 07/25/20 25 07/25/2025 CMP sodium 141 mmol/ L 135-14 8 Not Available [facility] [address] [place] [address], 38956, 07/25/2025 20:03:27 07/25/20 25 07/25/2025 CMP potassium 4.4 mmol/ L 3.5-5. 3 Not Available [facility] [address] [place] [address], 88360, 07/25/2025 20:03:27 07/25/20 25 07/25/2025 CMP chloride 106 mmol/ L 96-112 Not Available [facility] [address] [place] [address], 28106, 07/25/2025 20:03:27 07/25/20 25 07/25/2025 CMP CO2 28 mmol/ L 23-33 Not Available [place] [facility] - [facility] [address] [place] [address], 86198, 07/25/2025 20:03:27 07/25/20 25 07/25/2025 CMP BUN 12 mg/dL 7-18 Not Available [place] - [facility] [address] [place] [address], 71282, 07/25/2025 20:03:27 07/25/20 25 07/25/2025 CMP creatinine 0.72 mg/dL 0.55-1 .02 Not Available [place] - [facility] [address] [place] [address], 88697, 07/25/2025 20:03:27 07/25/20 25 07/25/2025 CMP glucose 102 mg/dL 65-99 high Not Availabl e [place] Only - [facility] [address] [place] [address], 77593, 07/25/2025 20:03:27 07/25/20 25 07/25/2025 CMP calcium 8.5 mg/dL 8.5-10 .1 Not Available [place] - [facility] [address] [place] [address], 73966, 07/25/2025 20:03:27 07/25/20 25 07/25/2025 CMP total protein 6.8 g/dL 6.4-8. 2 Not Available [place] - [facility] [address] [place] [address], 32464, 07/25/2025 20:03:27 07/25/20 25 07/25/2025 CMP albumin 3.1 g/dL 3.4-5. 0 low Not Available [place] [facility] - [facility] [address] [place] [address], 14880, 07/25/2025 20:03:27 07/25/20 25 07/25/2025 CMP bilirubin (total) 0.5 mg/dL 0.2-1. 0 Not Available [place] - [facility] [address] [place] [address], 96370, 07/25/2025 20:03:27 07/25/20 25 07/25/2025 CMP AST 26 u/L 15-37 Not Available [place] [facility] - [facility] [address] [place] [address], 39866, 07/25/2025 20:03:27 07/25/20 25 07/25/2025 CMP alk phos 136 u/L 46-116 high Not Availab le [place] Only - [facility] [address] [place] [address], 03586, 07/25/2025 20:03:27 07/25/20 25 07/25/2025 CMP ALT 28 u/L 14-59 Not Available [place] - [facility] [address], 36819, 07/25/2025 20:03:27 07/25/20 25 07/25/2025 CMP anion gap 7 mmol/ L 7-16 Not Available [place] - [facility] [address] [place] [address], 72183, 07/25/2025 20:03:27 07/25/20 25 07/25/2025 DBIL bilirubin (direct) 0.06 mg/dL 0.00-0 .20 Not Available [place] [facility] - [facility] [address] [place] [address], 80450, 07/25/2025 20:03:25 07/25/20 25 07/25/2025 CBCW/ DIFF WBC 6.56 x10 3.98-1 0.04 Not Available [place] [facility] - [facility] [address] [place] [address], 06451, 07/25/2025 19:47:06 07/25/20 25 07/25/2025 CBCW/ DIFF RBC 3.95 x10 3.93-5 .22 Not Available [place] - [facility] [address] [place] [address], 41984, 07/25/2025 19:47:06 07/25/20 25 07/25/2025 CBCW/ DIFF hemoglobin 10.7 g/dL 11.2-1 5.7 low Not Available [place] [facility] - [facility] [address] [place] [address], 59561, 07/25/2025 19:47:06 07/25/20 25 07/25/2025 CBCW/ DIFF hematocrit 32.8 % 34.1-4 4.9 low Not Available [place] [facility] - [facility] [address] [place] [address], 04235, 07/25/2025 19:47:06 07/25/20 25 07/25/2025 CBCW/ DIFF MCV 83.0 fL 79.4-9 4.8 Not Available [place] Only - [facility] [address] [place] [address], 92936, 07/25/2025 19:47:06 07/25/20 25 07/25/2025 CBCW/ DIFF MCH 27.1 pg 25.6-3 2.2 Not Available [place] Only - [facility] [address] [place] [address], 59842, 07/25/2025 19:47:06 07/25/20 25 07/25/2025 CBCW/ DIFF MCHC 32.6 g/dL 32.2-3 5.5 Not Available [place] Only - [facility] [address] [place] [address], 62789, 07/25/2025 19:47:06 07/25/20 25 07/25/2025 CBCW/ DIFF rdwcv 12.6 % 11.7-1 4.4 Not Available [place] Only - [facility] [address] [place] [address], 03259, 07/25/2025 19:47:06 07/25/20 25 07/25/2025 CBCW/ DIFF rdwsd 38.0 fL 36.4-4 6.3 Not Available [place] Only - [facility] [address] [place] [address], 39289, 07/25/2025 19:47:06 07/25/20 25 07/25/2025 CBCW/ DIFF platelets 210 x10 182-36 9 Not Available [place] Only - [facility] [address] [place] [address], 24109, 07/25/2025 19:47:06 07/25/20 25 07/25/2025 CBCW/ DIFF MPV 9.2 fL 9.4-12 .3 low Not Available [place] Only - [facility] [address] [place] [address], 77950, 07/25/2025 19:47:06 07/25/20 25 07/25/2025 AUTOD IFF neutrophils 59.8 % 34.0-7 1.1 Not Available [place] Only - [facility] [address] [place] [address], 30718, 07/25/2025 19:47:03 07/25/20 25 07/25/2025 AUTOD IFF lymphocytes 27.4 % 19.3-5 1.7 Not Available [place] Only - [facility] [address] [place] [address], 69254, 07/25/2025 19:47:03 07/25/20 25 07/25/2025 AUTOD IFF monocytes 8.4 % 4.7-12 .5 Not Available [place] - [facility] [address] [place] [address], 25530, 07/25/2025 19:47:03 07/25/20 25 07/25/2025 AUTOD IFF eosinophils 3.5 % 0.7-5. 8 Not Available [place] - [facility] [address] [place] [address], 34625, 07/25/2025 19:47:03 07/25/20 25 07/25/2025 AUTOD IFF basophils 0.6 % 0.1-1. 2 Not Available [place] - [facility] [address] [place] [address], 47157, 07/25/2025 19:47:03 07/25/20 25 07/25/2025 AUTOD IFF imm auto 0.3 % 0.0-1. 5 Not Available [place] - [facility] [address] [place] [address], 72404, 07/25/2025 19:47:03 07/25/20 25 07/25/2025 AUTOD IFF NRBC auto 0.0 /100W BC 0.0-0. 2 Not Available [place] Only - [facility] [address] [place] [address], 01619, 07/25/2025 19:47:03 07/25/20 25 07/25/2025 AUTOD IFF absolute neutrophils 3.92 x10 1.56-6 .13 Not Available [place] Only - [facility] [address] [place] [address], 28891, 07/25/2025 19:47:03 07/25/20 25 07/25/2025 AUTOD IFF absolute lymphocytes 1.80 x10 1.18-3 .74 Not Available [place] - [facility] [address] [place] [address], 82560, 07/25/2025 19:47:03 07/25/20 25 07/25/2025 AUTOD IFF absolute monocytes 0.55 x10 0.24-0 .36 high Not Available [place] [facility] - [facility] [address] [place] [address], 36426, 07/25/2025 19:47:03 07/25/20 25 07/25/2025 AUTOD IFF absolute eosinophils 0.23 x10 0.04-0 .36 Not Available [place] [facility] - [facility] [address] [place] [address], 87980, 07/25/2025 19:47:03 07/25/20 25 07/25/2025 AUTOD IFF absolute basophils 0.04 x10 0.01-0 .08 Not Available [place] [facility] - [facility] [address] [place] [address], 65686, 07/25/2025 19:47:03 07/25/20 25 07/25/2025 AUTOD IFF imm absolute 0.02 x10 0.00-0 .15 Not Available [place] - [facility] [address] [place] [address], 67082, 07/25/2025 19:47:03 07/25/20 25 07/25/2025 AUTOD IFF NRBC absolute 0.00 x10 0.00-0 .01 Not Available [place] [facility] - [facility] [address] [place] [address], 86984, 07/25/2025 19:47:03 07/25/20 25 07/28/2025 C URINE urine culture (new) abnormal Print Date/ Time: 07/28 08:28 SHOOTER HELPER Patie nt: JUAN WHITEHL EEN P Micro biolo gy - Uroge nital Legen d: c=Cor recte d, F=Res ult Comme nt, S=Idalia cepti ble, I=Int ermed iate, R=Res istan t, N/A=N ot Appli cable PROCE DURE: Urine Cultu re [] ACCES LIA: [id number] SOURC E: Urine BODY SITE: COLLE CTED DATE/ TIME: 07/25 18:20 SHOOTER HELPER RECEI ELVA DATE/ TIME: 07/25 19:08 SHOOTER HELPER START DATE/ TIME: 07/25 19:08 SHOOTER HELPER FREE TEXT SOURC E: FI NAL REPOR TS Final Repor t [] Verif ied Date/ Time: 07/28 08:28 SHOOTER HELPER 30,00 0 cfu/m l Mixed sanket inclu ding Esche scott a coli and Strep tococ cus agala ctiae (Grou p B) [place] ELIMI NARY REPOR TS Preli minar y Repor t [] Verif ied Date/ Time: 07/27 06:37 SHOOTER HELPER 30,00 0 cfu/m l Mixed sanket inclu ding Esche scott a coli Preli minar y Repor t [] Verif ied Date/ Time: 07/26 07:58 SHOOTER HELPER Light growt h-cul ture reinc ubate d. Speci men recei elva after 6pm. Not Available [place] - [facility] [address] [place] [address], 39830, 07/28/2025 09:28:39 07/25/20 25 07/27/2025 C URINE urine culture (new) abnormal Print Date/ Time: 07/27 06:37 SHOOTER HELPER Patie nt: JANINA WHITE EEN P Micro biolo gy - Uroge nital Legen d: c=Cor recte d, F=Res ult Comme nt, S=Idalia cepti ble, I=Int ermed iate, R=Res istan t, N/A=N ot Appli cable PROCE DURE: Urine Cultu re [] ACCES LIA: [id number] SOURC E: Urine BODY SITE: COLLE CTED DATE/ TIME: 07/25 18:20 SHOOTER HELPER RECEI ELVA DATE/ TIME: 07/25 19:08 SHOOTER HELPER START DATE/ TIME: 07/25 19:08 SHOOTER HELPER FREE TEXT SOURC E: [place] ELIM[place] NARY REPOR TS Preli minar y Repor t [] Verif ied Date/ Time: 07/27 06:37 SHOOTER HELPER 30,00 0 cfu/m l Mixed sanket inclu ding Esche scott a coli Preli minar y Repor t [] Verif ied Date/ Time: 07/26 07:58 SHOOTER HELPER Light growt h-cul ture reinc ubate d. Speci men recei elva after 6pm. Not Available [place] - [facility] [address] [place] [address], 30859, 07/27/2025 07:37:47 07/25/20 25 07/27/2025 C URINE urine culture (new) abnormal Print Date/ Time: 07/27 06:37 SHOOTER HELPER Patie nt: JANINA WHITE P Micro biolo gy - Uroge nital Legen d: c=Cor recte d, F=Res ult Comme nt, S=Idalia cepti ble, I=Int ermed iate, R=Res istan t, N/A=N ot Appli cable PROCE DURE: Urine Cultu re [] ACCES LIA: SOURC E: Urine BODY SITE: COLLE CTED DATE/ TIME: 07/25 18:20 SHOOTER HELPER RECEI ELVA DATE/ TIME: 07/25 19:08 SHOOTER HELPER START DATE/ TIME: 07/25 19:08 SHOOTER HELPER FREE TEXT SOURC E: [place] ELIM[place] NARY REPOR TS Preli minar y Repor t [] Verif ied Date/ Time: 07/27 06:37 SHOOTER HELPER 30,00 0 cfu/m l Mixed sanket inclu ding Esche scott a coli Preli minar y Repor t [] Verif ied Date/ Time: 07/26 07:58 SHOOTER HELPER Light growt h-cul ture reinc ubate d. Speci men recei elva after 6pm. Not Available [place] [facility] - [facility] [address] [place] [address], 58416, 07/27/2025 07:37:43 07/25/2007/26/2025 C URINE urine culture (new) Print Date/ Time: 07/26 07:58 SHOOTER HELPER Patie nt: RICE, JANINA EEN P Micro biolo gy - Uroge nital Legen d: c=Cor recte d, F=Res ult Comme nt, S=Idalia cepti ble, I=Int ermed iate, R=Res istan t, N/A=N ot Appli cable PROCE DURE: Urine Cultu re [] ACCES LIA: [id number] SOURC E: Urine BODY SITE: COLLE CTED DATE/ TIME: 07/25 18:20 SHOOTER HELPER RECEI ELVA DATE/ TIME: 07/25 19:08 SHOOTER HELPER START DATE/ TIME: 07/25 19:08 SHOOTER HELPER FREE TEXT SOURC E: [place] ELIM[place] NARY REPOR TS Preli minar y Julia t [] Verif ied Date/ Time: 07/26 07:58 SHOOTER HELPER Light growt h-cul ture reinc ubate d. Speci men recei elva after 6pm. Not Available [place] - [facility] [address] [place] [address], 49895, 07/26/2025 08:59:00 07/27/2007/29/2025 C URINE urine culture (new) Print Date/ Time: 07/29 06:56 SHOOTER HELPER Patie nt: ZEKE JUANLEESA EEN P Micro biolo gy - Uroge nital Legen d: c=Cor recte d, F=Res ult Comme nt, S=Idalia cepti ble, I=Int ermed iate, R=Res istan t, N/A=N ot Appli cable PROCE DURE: Urine Cultu re [] ACCES LIA: [id number] SOURC E: Urine BODY SITE: COLLE CTED DATE/ TIME: 07/27 19:31 SHOOTER HELPER RECEI ELVA DATE/ TIME: 07/27 20:04 SHOOTER HELPER START DATE/ TIME: 07/27 20:05 SHOOTER HELPER FREE TEXT SOURC E: FI NAL REPOR TS Final Repor t [] Verif ied Date/ Time: 07/29 06:56 SHOOTER HELPER 40,00 0 cfu/m l mixed sanket . [place] ELIM[place] NARY REPOR TS Preli minar y Repor t [] Verif ied Date/ Time: 07/28 06:43 SHOOTER HELPER 20,00 0 cfu/m l Gram Negat jozef Rods Not Available [place] - [facility] [address] [place] [address], 42729, 07/29/2025 07:56:40 07/27/20 25 07/27/2025 UACS color Yellow Not Available [place] - [facility] [address] [place] [address], 18271, 07/27/2025 21:03:00 07/27/20 25 07/27/2025 UACS appearance Hazy Not Avail able [place] Only - [facility] [address] [place] [address], 54526, 07/27/2025 21:03:00 07/27/20 25 07/27/2025 UACS specific gravity 1.014 1.003- 1.035 Not Available [place] - [facility] [address] [place] [address], 85413, 07/27/2025 21:03:00 07/27/20 25 07/27/2025 UACS pH urine 6.0 5.0-8. 0 Not Available [place] [facility] - [facility] [address] [place] [address], 94068, 07/27/2025 21:03:00 07/27/20 25 07/27/2025 UACS protein Negati ve Not Available [place] [facility] - [facility] [address] [place] [address], 48190, 07/27/2025 21:03:00 07/27/20 25 07/27/2025 UACS urine glucose Negati ve Not Available [facility] [address] [place] [address], 20971, 07/27/2025 21:03:00 07/27/20 25 07/27/2025 UACS ketones Negati ve Not Available [facility] [address], 21271, 07/27/2025 21:03:00 07/27/20 25 07/27/2025 UACS urine bilirubin Negati ve Not Available [facility] [address] [place] [address], 90973, 07/27/2025 21:03:00 07/27/20 25 07/27/2025 UACS urine HGB Negati ve Not Available [facility] [address] [place] [address], 26502, 07/27/2025 21:03:00 07/27/20 25 07/27/2025 UACS nitrite Negati ve Not Available [facility] [address], 14994, 07/27/2025 21:03:00 07/27/20 25 07/27/2025 UACS leukocyte esterase 1+ abnormal Not Available [facility] [address], 00706, 07/27/2025 21:03:00 07/27/20 25 07/27/2025 UACS urobilinogen Negati ve Refer ence Range : <=1 Not Available [facility] [address] [place] [address], 28682, 07/27/2025 21:03:00 07/27/20 25 07/27/2025 UACS urine WBCs 11-25 abnormal Refer ence Range : <=[address] [facility] [address] [place] [address], 15053, 07/27/2025 21:03:00 07/27/20 25 07/27/2025 UACS urine RBCs 0-2 Refer ence Range : <=2 Not Available [facility] [address] [place] [address], 12395, 07/27/2025 21:03:00 07/27/20 25 07/27/2025 UACS squamous epithelial cells 3+ Refer ence Range : <=3+ Not Available [facility] [address] [place] [address], 11839, 07/27/2025 21:03:00 07/27/2007/27/2025 UACS bacteria 1+ abnormal Refer ence Range : <=Tra ce, Non-C ath Not Available [facility] [address] [place] [address], 69793, 07/27/2025 21:03:00 07/27/2007/27/2025 UACS UA mucous Presen t Not Available [facility] [address] [place] [address], 60175, 07/27/2025 21:03:00 07/27/2007/27/2025 UACS urine ascorbic acid Negati ve Ascor bic acid can inter fere with the detec tion of blood , gluco se, and nitri te. Not Available [facility] [address] [place] [address], 55676, 07/27/2025 21:03:00 07/27/20 25 07/28/2025 C URINE urine culture (new) abnormal Print Date/ Time: 07/28 06:43 SHOOTER HELPER Patie nt: JANINA WHITE P Micro biolo gy - Uroge nital Legen d: c=Cor recte d, F=Res ult Comme nt, S=Idalia cepti ble, I=Int ermed iate, R=Res istan t, N/A=N ot Appli cable PROCE DURE: Urine Cultu re [] ACCES LIA: [id number] SOURC E: Urine BODY SITE: COLLE CTED DATE/ TIME: 07/27 19:31 SHOOTER HELPER RECEI ELVA DATE/ TIME: 07/27 20:04 SHOOTER HELPER START DATE/ TIME: 07/27 20:05 SHOOTER HELPER FREE TEXT SOURC E: [place] ELIMI NARY REPOR TS Preli minar y Repor t [] Verif ied Date/ Time: 07/28 06:43 SHOOTER HELPER 20,00 0 cfu/m l Gram Negat jozef Rods Not Available [facility] Only - [facility] [address] [place] [address], 55403, 07/28/2025 07:43:27 07/27/2007/27/2025 EGFR eGFR 90 mL/mi n/1.7 3m? This eGFR is calcu lated using 2020 CKD-E PI Creat inine equat ion witho ut race modif ier based on the NKF-A SN task force recom menda tions . In most healt hy peopl e, the kennedy l GFR is 90 mL/mi n/1.7 3 m2 or highe r. - A resul t of 60-89 mL/mi n/1.7 3 m2 witho ut kidne y damag e may be kennedy l in some peopl e (such as [...] Sc Only - [facility] [address] [place] [address], [id number], 07/27/2025 19:05:40 07/27/20 25 07/27/2025 LPSE lipase,serum 21 u/L 16-77 Not Dalila ilable [place] Only - [facility] [address] [place] [address], [id number], 07/27/2025 19:05:39 11/13/20 25 07/27/2025 LDH LD 150 u/L 81-234 Not Available [place] Only - [facility] [address] [place] [address], [id number], 07/27/2025 19:05:38 07/27/20 25 07/27/2025 CMP sodium 141 mmol/ L 135-14 8 Not Available [place] Only - [facility] [address], [address], 07/27/2025 19:05:37 07/27/20 25 07/27/2025 CMP potassium 4.4 mmol/ L 3.5-5. 3 Not Available [place] Only - [facility] [address], [address], 07/27/2025 19:05:37 07/27/20 25 07/27/2025 CMP chloride 105 mmol/ L 96-112 Not Available [place] Only - [facility] [address], [address], 07/27/2025 19:05:37 07/27/20 25 07/27/2025 CMP CO2 28 mmol/ L 23-33 Not Available [place] Only - [facility] [address], [id number], 07/27/2025 19:05:37 07/27/20 25 07/27/2025 CMP BUN 9 mg/dL 7-18 Not Available [place] Only - [facility] [address], [address], 07/27/2025 19:05:37 07/27/20 25 07/27/2025 CMP creatinine 0.78 mg/dL 0.55-1 .02 Not Available [place] Only - [facility] [address], [address], 07/27/2025 19:05:37 07/27/20 25 07/27/2025 CMP glucose 118 mg/dL 65-99 high Not Availabl e [place] Only - [facility] [address], [id number], 07/27/2025 19:05:37 07/27/20 25 07/27/2025 CMP calcium 9.0 mg/dL 8.5-10 .1 Not Available [place] Only - [facility] [address], [address], 07/27/2025 19:05:37 07/27/20 25 07/27/2025 CMP total protein 7.3 g/dL 6.4-8. 2 Not Available [place] Only - [facility] [address], [address], 07/27/2025 19:05:37 07/27/20 25 07/27/2025 CMP albumin 3.3 g/dL 3.4-5. 0 low Not Available [place] Only - [facility] [address] [place] [address], [address], 07/27/2025 19:05:37 07/27/20 25 07/27/2025 CMP bilirubin (total) 0.6 mg/dL 0.2-1. 0 Not Available [place] [facility] - [facility] [address], [address], 07/27/2025 19:05:37 07/27/20 25 07/27/2025 CMP AST 24 u/L 15-37 Not Available [place] - [facility] [address], [address], 07/27/2025 19:05:37 07/27/20 25 07/27/2025 CMP alk phos 151 u/L 46-116 high Not Availab le [place] Only - [facility] [address], [address], 07/27/2025 19:05:37 07/27/20 25 07/27/2025 CMP ALT 23 u/L 14-59 Not Available [place] Only - [facility] [address] [place] [address], [address], 07/27/2025 19:05:37 07/27/20 25 07/27/2025 CMP anion gap 8 mmol/ L 7-16 Not Available [place] Only - [facility] [address] [place] [address], [address], 07/27/2025 19:05:37 07/27/20 25 07/27/2025 DBIL bilirubin (direct) 0.11 mg/dL 0.00-0 .20 Not Available [place] [facility] - [facility] [address] [place] [address], [address], 07/27/2025 19:05:36 07/27/20 25 07/27/2025 CBCW/ DIFF WBC 7.72 x10 3.98-1 0.04 Not Available [place] Only - [facility] [address] [place] [address], [address], 07/27/2025 18:49:57 07/27/20 25 07/27/2025 CBCW/ DIFF RBC 4.21 x10 3.93-5 .22 Not Available [place] [facility] - [facility] [address] [place] [address], [address], 07/27/2025 18:49:57 07/27/20 25 07/27/2025 CBCW/ DIFF hemoglobin 11.2 g/dL 11.2-1 5.7 Not Available [place] Only - [facility] [address] [place] [address], [address], 07/27/2025 18:49:57 07/27/20 25 07/27/2025 CBCW/ DIFF hematocrit 34.6 % 34.1-4 4.9 Not Available [place] Only - [facility] [address] [place] [address], [address], 07/27/2025 18:49:57 07/27/20 25 07/27/2025 CBCW/ DIFF MCV 82.2 fL 79.4-9 4.8 Not Available [place] Only - [facility] [address] [place] [address], [address], 07/27/2025 18:49:57 07/27/20 25 07/27/2025 CBCW/ DIFF MCH 26.6 pg 25.6-3 2.2 Not Available [place] Only - [facility] [address] [place] [address], [address], 07/27/2025 18:49:57 07/27/20 25 07/27/2025 CBCW/ DIFF MCHC 32.4 g/dL 32.2-3 5.5 Not Available [place] Only - [facility] [address] [place] [address], [address], 07/27/2025 18:49:57 07/27/20 25 07/27/2025 CBCW/ DIFF rdwcv 12.9 % 11.7-1 4.4 Not Available Sc Only - [facility] [address] [place] [address], [address], 07/27/2025 18:49:57 07/27/20 25 07/27/2025 CBCW/ DIFF rdwsd 38.5 fL 36.4-4 6.3 Not Available Sc Only - [facility] [address] [place] [address], [address], 07/27/2025 18:49:57 07/27/20 25 07/27/2025 CBCW/ DIFF platelets 249 x10 182-36 9 Not Available Sc Only - [facility] [address] [place] [address], [address], 07/27/2025 18:49:57 07/27/20 25 07/27/2025 CBCW/ DIFF MPV 9.1 fL 9.4-12 .3 low Not Available [place] Only - [facility] [address] [place] [address], [address], 07/27/2025 18:49:57 07/27/20 25 07/27/2025 AUTOD IFF neutrophils 62.0 % 34.0-7 1.1 Not Available [place] Only - [facility] [address] [place] [address], [address], 07/27/2025 18:49:56 07/27/20 25 07/27/2025 AUTOD IFF lymphocytes 26.3 % 19.3-5 1.7 Not Available [place] Only - [facility] [address] [place] [address], [address], 07/27/2025 18:49:56 07/27/20 25 07/27/2025 AUTOD IFF monocytes 7.8 % 4.7-12 .5 Not Available Sc Only - [facility] [address] [place] [address], [address], 07/27/2025 18:49:56 07/27/20 25 07/27/2025 AUTOD IFF eosinophils 3.2 % 0.7-5. 8 Not Available Sc Only - [facility] [address] [place] [address], [address], 07/27/2025 18:49:56 07/27/20 25 07/27/2025 AUTOD IFF basophils 0.6 % 0.1-1. 2 Not Available Sc Only - [facility] [address] [place] [address], [address], 07/27/2025 18:49:56 07/27/20 25 07/27/2025 AUTOD IFF imm auto 0.1 % 0.0-1. 5 Not Available Sc Only - [facility] [address] [place] [address], [address], 07/27/2025 18:49:56 07/27/20 25 07/27/2025 AUTOD IFF NRBC auto 0.0 /100W BC 0.0-0. 2 Not Available Sc Only - [facility] [address] [place] [address], [address], 07/27/2025 18:49:56 07/27/20 25 07/27/2025 AUTOD IFF absolute neutrophils 4.78 x10 1.56-6 .13 Not Available Sc Only - [facility] [address] [place] [address], [address], 07/27/2025 18:49:56 07/27/20 25 07/27/2025 AUTOD IFF absolute lymphocytes 2.03 x10 1.18-3 .74 Not Available Sc Only - [facility] [address] [place] [address], [address], 07/27/2025 18:49:56 07/27/20 25 07/27/2025 AUTOD IFF absolute monocytes 0.60 x10 0.24-0 .36 high Not Available [place] Only - [facility] [address] [place] [address], [address], 07/27/2025 18:49:56 07/27/20 25 07/27/2025 AUTOD IFF absolute eosinophils 0.25 x10 0.04-0 .36 Not Available [place] [facility] - [facility] [address] [place] [address], [address], 07/27/2025 18:49:56 07/27/20 25 07/27/2025 AUTOD IFF absolute basophils 0.05 x10 0.01-0 .08 Not Available [place] Only - [facility] [address] [place] [address], [address], 07/27/2025 18:49:56 07/27/20 25 07/27/2025 AUTOD IFF imm absolute 0.01 x10 0.00-0 .15 Not Available [place] [facility] - [facility] [address] [place] [address], [address], 07/27/2025 18:49:56 07/27/20 25 07/27/2025 AUTOD IFF NRBC absolute 0.00 x10 0.00-0 .01 Not Available [place] [facility] - [facility] [address] [place] [address], [address], 07/27/2025 18:49:56 08/03/20 25 08/03/2025 HbA1c (hemo globi n A1c), blood fingerstick A1C endo Not Available [place] [facility] [address] [place] [address], [address], 08/03/2025 14:23:07 08/03/20 25 08/03/2025 HbA1c (hemo globi n A1c), blood hemoglobin A1C, finger 6.8 %_A1C 4.3 - 5.6 high Not Available [facility] [address] [place] [address], [address], 08/03/2025 14:23:07 08/03/20 25 08/03/2025 HbA1c (hemo globi n A1c), blood fingerstick estimated ave 148 Not Available [facility] Onl [facility] - [facility] [address] [place] [address], [address], 08/03/2025 14:23:07 08/03/20 25 08/03/2025 LAC lactic acid 0.7 mmol/ L 0.5-2. 0 Not Available [place] Only - [facility] [address] [place] [address], [address], 08/03/2025 21:10:44 08/03/20 25 08/03/2025 PREG SERUM serum test See Note abnormal Weakl y posit jozef resul t obtai tiffanie. There may be very low level s of hCG prese nt, or it could be a false posit jozef due to the prese nce of human anti- mouse antib odies . It is recom nate d that a quant itati ve hCG test be perfo rmed or that testi ng be repea michelle with a new sampl e in 48-72 hours . Not Available [place] [facility] - [facility] [address] [place] [address], [address], 08/03/2025 18:14:34 08/03/20 25 08/03/2025 EGFR eGFR 93 mL/mi n/1.7 3m? This eGFR is calcu lated using 2020 CKD-E PI Creat inine equat ion witho ut race modif ier based on the NKF-A SN task force recom menda tions . In most healt hy peopl e, the kennedy l GFR is 90 mL/mi n/1.7 3 m2 or highe r. - A resul t of 60-89 mL/mi n/1.7 3 m2 witho ut kidne y damag e may be kennedy l in some peopl e (such as [...] [facility] Only - [facility] [address] [place] [address], [address], 08/03/2025 17:53:04 08/03/20 25 08/03/2025 LPSE lipase,serum 26 u/L 16-77 Not Dalila ilable [place] Only - [facility] [address] [place] [address], [address], 08/03/2025 17:53:02 08/03/20 25 08/03/2025 CMP sodium 140 mmol/ L 135-14 8 Not Available [place] Only - [facility] [address] [place] [address], [address], 08/03/2025 17:53:00 08/03/20 25 08/03/2025 CMP potassium 3.9 mmol/ L 3.5-5. 3 Not Available [place] Only - [facility] [address] [place] [address], [address], 08/03/2025 17:53:00 08/03/20 25 08/03/2025 CMP chloride 103 mmol/ L 96-112 Not Available [place] Only - [facility] [address] [place] [address], [address], 08/03/2025 17:53:00 08/03/20 25 08/03/2025 CMP CO2 29 mmol/ L 23-33 Not Available [place] Only - [facility] [address] [place] [address], [address]60, 08/03/2025 17:53:00 08/03/20 25 08/03/2025 CMP BUN 8 mg/dL 7-18 Not Available [place] Only - [facility] [address] [place] [address], [address], 08/03/2025 17:53:00 08/03/20 08/03/2025 CMP creatinine 0.76 mg/dL 0.55-1 .02 Not Available [place] Only - [facility] [address], [address], 08/03/2025 17:53:00 08/03/20 25 08/03/2025 CMP glucose 191 mg/dL 65-99 high Not Availabl e [place] Only - [facility] [address] [place] [address], [address], 08/03/2025 17:53:00 08/03/20 25 08/03/2025 CMP calcium 8.9 mg/dL 8.5-10 .1 Not Available [facility] [address] [place] [address], [address], 08/03/2025 17:53:00 08/03/20 25 08/03/2025 CMP total protein 7.4 g/dL 6.4-8. 2 Not Available [facility] [address] [place] [address], [address], 08/03/2025 17:53:00 08/03/20 25 08/03/2025 CMP albumin 3.3 g/dL 3.4-5. 0 low Not Available [facility] [address] [place] [address], 99[address], 08/03/2025 17:53:00 08/03/20 25 08/03/2025 CMP bilirubin (total) 0.7 mg/dL 0.2-1. 0 Not Available [place] Only - [facility] [address] [place] [address], [address], 08/03/2025 17:53:00 08/03/20 25 08/03/2025 CMP AST 26 u/L 15-37 Not Available [place] Only - [facility] [address] [place] [address], [address], 08/03/2025 17:53:00 08/03/20 25 08/03/2025 CMP alk phos 152 u/L 46-116 high Not Availab le [place] Only - [facility] [address] [place] [address], 55[address], 08/03/2025 17:53:00 08/03/20 25 08/03/2025 CMP ALT 26 u/L 14-59 Not Available Sc Only - [facility] [address] [place] [address], [address], 08/03/2025 17:53:00 08/03/20 25 08/03/2025 CMP anion gap 8 mmol/ L 7-16 Not Available [place] Only - [facility] [address] [place] [address], 798[address], 08/03/2025 17:53:00 08/03/20 25 08/03/2025 CBCW/ DIFF WBC 7.58 x10 3.98-1 0.04 Not Available [place] Only - [facility] [address] [place] [address], 57[address], 08/03/2025 17:39:02 08/03/20 25 08/03/2025 CBCW/ DIFF RBC 4.19 x10 3.93-5 .22 Not Available [place] Only - [facility] [address] [place] [address], 89[address], 08/03/2025 17:39:02 08/03/20 25 08/03/2025 CBCW/ DIFF hemoglobin 11.0 g/dL 11.2-1 5.7 low Not Available [place] Only - [facility] [address] [place] [address], [address], 08/03/2025 17:39:02 08/03/20 25 08/03/2025 CBCW/ DIFF hematocrit 35.0 % 34.1-4 4.9 Not Available Sc Only - [facility] [address] [place] [address], 13046, 08/03/2025 17:39:02 08/03/20 25 08/03/2025 CBCW/ DIFF MCV 83.5 fL 79.4-9 4.8 Not Available Sc Only - [facility] [address] [place] [address], 73396, 08/03/2025 17:39:02 08/03/20 25 08/03/2025 CBCW/ DIFF MCH 26.3 pg 25.6-3 2.2 Not Available Sc Only - [facility] [address] [place] [address], [address]20, 08/03/2025 17:39:02 08/03/20 25 08/03/2025 CBCW/ DIFF MCHC 31.4 g/dL 32.2-3 5.5 low Not Available [place] Only - [facility] [address] [place] [address], 94287, 08/03/2025 17:39:02 08/03/20 25 08/03/2025 CBCW/ DIFF rdwcv 13.0 % 11.7-1 4.4 Not Available Sc Only - [facility] [address] [place] [address], 55125, 08/03/2025 17:39:02 08/03/20 25 08/03/2025 CBCW/ DIFF rdwsd 38.7 fL 36.4-4 6.3 Not Available Sc Only - [facility] [address] [place] [address], 00263, 08/03/2025 17:39:02 08/03/20 25 08/03/2025 CBCW/ DIFF platelets 266 x10 182-36 9 Not Available Sc Only - [facility] [address] [place] [address], 08248, 08/03/2025 17:39:02 08/03/20 25 08/03/2025 CBCW/ DIFF MPV 9.5 fL 9.4-12 .3 Not Available [place] Only - [facility] [address] [place] [address], 15322, 08/03/2025 17:39:02 08/03/20 25 08/03/2025 AUTOD IFF neutrophils 63.1 % 34.0-7 1.1 Not Available [place] Only - [facility] [address] [place] [address], 06085, 08/03/2025 17:39:00 08/03/20 25 08/03/2025 AUTOD IFF lymphocytes 24.8 % 19.3-5 1.7 Not Available [place] Only - [facility] [address] [place] [address], 589[address], 08/03/2025 17:39:00 08/03/20 25 08/03/2025 AUTOD IFF monocytes 8.0 % 4.7-12 .5 Not Available [place] Only - [facility] [address] [place] [address], 81421, 08/03/2025 17:39:00 08/03/20 25 08/03/2025 AUTOD IFF eosinophils 3.0 % 0.7-5. 8 Not Available [place] Only - [address], [address], 08/03/2025 17:39:00 08/03/20 25 08/03/2025 AUTOD IFF basophils 0.8 % 0.1-1. 2 Not Available [place] Only - [facility] [address] [place] [address], 0[address], 08/03/2025 17:39:00 08/03/20 25 08/03/2025 AUTOD IFF imm auto 0.3 % 0.0-1. 5 Not Available Sc Only - [address], [address], 08/03/2025 17:39:00 08/03/20 25 08/03/2025 AUTOD IFF NRBC auto 0.0 /100W BC 0.0-0. 2 Not Available [place] Only - [facility] [address] [place] [address], 91301, 08/03/2025 17:39:00 08/03/20 25 08/03/2025 AUTOD IFF absolute neutrophils 4.78 x10 1.56-6 .13 Not Available [place] Only - [facility] [address] [place] [address], 03348, 08/03/2025 17:39:00 08/03/20 25 08/03/2025 AUTOD IFF absolute lymphocytes 1.88 x10 1.18-3 .74 Not Available [place] Only - [address], [address], 08/03/2025 17:39:00 08/03/20 25 08/03/2025 AUTOD IFF absolute monocytes 0.61 x10 0.24-0 .36 high Not Available Sc Only - [address], [address], 08/03/2025 17:39:00 08/03/20 25 08/03/2025 AUTOD IFF absolute eosinophils 0.23 x10 0.04-0 .36 Not Available Sc Only - [address], [address], 08/03/2025 17:39:00 08/03/20 25 08/03/2025 AUTOD IFF absolute basophils 0.06 x10 0.01-0 .08 Not Available [place] Only - [address], [address], 08/03/2025 17:39:00 08/03/20 25 08/03/2025 AUTOD IFF imm absolute 0.02 x10 0.00-0 .15 Not Available [place] Only - [address], [address], 08/03/2025 17:39:00 08/03/20 25 08/03/2025 AUTOD IFF NRBC absolute 0.00 x10 0.00-0 .01 Not Available [place] Only - [address], [address], 08/03/2025 17:39:00 07/27/20 25 07/27/2025 CT, abdom en + pelvi s, w/ contr ast [facility] [address] [place] [address] Name: TL WHITE PAULINE Salgado Age: 54 : 1970 Exam Date: 2024 ACCESS ION: [id number] ORDERI WERNER MD: MILE [place]TH EXAMIN ATION: CT ABDOME N/PELV IS WITH CONTRA ST COMPAR MANPREET: CT abdome n pelvis withou t contra [...] ing approx imatel y 1.1 cm in [facility] diam er. There is no hydron ephros is. [...] pelvic vascul ar simila r to compar manpreet imagin g. Muscul oskele stephani: Redemo nstrat ed small anteri or wall soft tissue nodule s and dystro phic java j2ee application developer ior soft tissue calcif icatio ns, contin [...] : 20:47 Tye hernandez MD, Isabella EGAN [place] [facility] - [facility] [address] [place] [address], [address], 07/27/2025 21:51:11 08/01/20 25 08/01/2025 imagi ng/di agnos tic resul t No observ ation record ed. [facility] [address] [place], [address], 08/01/2025 17:37:33 08/03/20 25 08/03/2025 D abdom en 1 view [facility] [address] [place] [address] Name: ZEKETL Age: 54 : 1970 Exam Date: 2024 ACCESS ION: [id number] BLAISE CALDERA MD: BRIDGET BOWLES EXAM: Abdome n, 1 view HISTOR Y: Lower abdomi nal pain, RUQ pain for 2 days. Histor y of append ectomy , gallbl adder remova l, hernia repair abd pain COMPAR MANPREET: FINDIN GS: The abdomi nal gas patter [...] Signed : 20:05 Juwan Metzger MD INTERFACE [place] Only - [facility] [address], [address], 08/03/2025 21:09:24 Result Notes None recorded. Problems Name Problem SNOMED Code Status Onset Date Resolution Date Notes Provider Name and Address Organization Details Recorded Time Migraine 95811590 Active 2020 Yolande Riley [facility] 4 17:00:48 Hypertens jozef disorder 62229885 Active 2020 Yolandeher Riley [facility] 4 17:00:48 Atypical squamous cells of undetermi tiffanie significa nce on cervical Papanicol aou smear 079091011 Active 2020 Yolande Riley [facility] 4 17:00:48 Second degree uterine prolapse 9256881 Active 2022 Yolande Riley null, [facility] 4 17:00:48 Chest pain 13284950 Active 2022 VINICIUS PRITCHARD, JOSE G [address] [place] [address], [address] , [facility] 5 16:44:36 Preinfarc tion syndrome 7566068 Active 2022 Yolande Riley null, [facility] 4 17:00:48 Coronary arteriosc lerosis 14417505 Active 2023 VINICIUS PRITCHARD NP [address] [place] [address], [address] , [facility] 5 17:10:30 Essential hypertens ion 36085319 Active 2023 VINICIUS PRITCHARD NP [address] [place] [address], [address] , [facility] 5 16:44:21 Hyperchol esterolem ia 69359280 Active 2023 [facility] 16:47:54 Abdominal pain 79956417 Active 2023 Eren Oswald PA-C [address] [place] [address], [address] , [facility] 4 13:05:40 Thoracic radiculop athy 97675414 Active 2023 Kimi Mathis APRN, [employer] [address] [place] [address], [address] , [facility] 4 14:46:37 Cervical radiculop athy 37124194 Active 2023 Kimi Mathis APRN, [employer] [address] [place] [address], [address] , [facility] 4 14:46:47 Lumbar spondylos is 955632390 Active 2023 Pauly Vizcaino MD [address] [place] [address], [address] , [facility] 5 14:49:06 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 28332753216 9106 Active 2023 following with endocrino maggy Vizcaino MD [address] [place] [address], [address] , [facility] 5 14:52:00 Spinal arachnoid cyst 503293875 Active 2023 Pauly Vizcaino MD [address] [place] [address], [address] , [facility] 5 14:51:11 Morbid obesity 013395638 Active 2024 Pauly Vizcaino MD [address] [place] [address], [address] , [facility] 5 14:50:22 Gastropar esis syndrome 432257941 Active 2024 Pauly Vizcaino MD [address] [place] [address], [address] , [facility] 5 14:53:47 Gastroeso phageal reflux disease 757694665 Active 2024 Pauly Vizcaino MD [address] [place] [address], [address] , [facility] 5 14:53:56 Dyspnea 467351287 Active 2024 Valeria Baugh APRN, [employer] [address] [place] [address], [address] , [facility] 5 12:14:35 Pain of left shoulder region Active 2024 Pauly Vizcaino MD [address] [place] [address], [address] , [facility] 5 15:11:16 Bilateral cramp of muscle of lower limbs 84535104844 811236 Active 2024 Pauly Vizcaino MD [address] [place] [address], [address] , [facility] 5 15:12:21 Fibromyal chuck 843633476 Active 2024 Pauly Vizcaino MD [address] [place] [address], [address] , [facility] 5 15:19:57 Recurrent major depressio n in remission 64436008 Active 2024 Pauly Vizcaino MD [address] [place] [address], [address] , [facility] 5 15:24:34 Primary insomnia 5917502 Active 2024 Pauly Vizcaino MD [address] [place] [address], [address] , [facility] 5 15:25:40 Swelling of lower limb 558200727 Active 2024 Pauly Vizcaino MD [address] [place] [address], [address] , [facility] 5 16:16:03 Palpitati ons 40255774 [facility] 2024 [facility] 16:53:19 Dyspnea on exertion 44488692 Active 2024 VINICIUS PRITCHARD NP [address] [place] [address], [address] , [facility] 5 17:10:27 Hyperlipi demia 33403537 Active 2024 VINICIUS PRITCHARD NP [address] [place] [address], [address] , [facility] 5 16:44:26 Edema of lower extremity 270144615 Active 2024 VINICIUS PRITCHARD NP [address] [place] [address], [address] , [facility] 5 17:34:12 Persisten t depressiv e disorder 3441647004 Active 2024 Melissa Macias PA-C [address] [place] [address], [address] , [facility] 5 11:28:54 Restless legs syndrome 11983021 Active 2024 Melissa Macias PA-C [address] [place] [address], [address] , [facility] 5 11:29:39 Atypical chest pain 569583143 Active 2024 Melissa Macias PA-C [address] [place] [address], [address] , [facility] 5 12:45:48 Anemia 723632736 Active 2024 Valeria Baugh APRN, [employer] [address] [place] [address], [address] , [facility] 5 12:10:45 Acute kidney injury 99197705 Active 2024 Valeria Baugh APRN, [employer] [address] [place] [address], [address] , [facility] 5 12:13:44 Mycosis 2018486 Active 2024 Valeria Baugh APRN, [employer] [address] [place] [address], [address] , [facility] 5 16:49:11 Obstructi ve sleep apnea syndrome 09277414 Active 2024 Sindhu Pizarro [facility] 5 16:01:58 Acute urinary tract infection 535939992 Active 2024 Lawrence Grigsby [facility] 5 15:43:42 Alpha-1-a ntitrypsi n deficienc y 72014761 Active 2024 Sindhu Pizarro [facility] 5 16:23:34 Supravent ricular tachycard ia 0717460 Active 2024 VINICIUS PRITCHARD, JOSE G [address] , [place], [address] , [facility] 5 16:44:22 Abdominal discomfor t 81973308 Active 2024 Kimi [facility], [facility] 5 10:28:59 Screening colonosco py Active 2024 Kimi Al giron [facility], [facility] 5 10:34:05 Notes:Some problems listed i n Documents: #[id number], #[id number], #[id number] could not be added to this patient's [...] Name and Address Organization Details Recorded Time [id number] fentanyl medicatio n headache Not available Not available 10/14/20232012 4337 RxNorm React ion: Heada syeda; Nause a; Vomit ing; Comme nt: React ion Date: 23 Aug 2013 Annot ation s: JUVENCIO SIEGEL 10Dec 2012 9:08P M Per pt repor t.; ; Brenda Natarajan [facility] 5 14:41:09 [id number] prochlorp erazine medicatio n anxiety Not available Not available 05/13/20242017 8704 RxNorm Yoli Sauceda [facility] 5 11:23:17 [id number] sumatript an medicatio n itching Not available Not available 05/13/20242017 15698 [facility] 14:[facility]28 1234198 metoclopr amide Not available other Not available Not available 05/13/20242022 6915 [facility] 5 14:41:18 [id number] diphenhyd ramine hydrochlo ride medicatio n anxiety rash Not available Not available Not available 05/13/20242017 1362 RxNorm Yoli Sauceda [facility] 5 11:23:17 0998462 Duragesic medicatio n headache Not available Not available 06/22/20242012 39925 8 RxNorm React ion: Heada syeda; Nause a; Vomit ing; Comme nt: React ion Date: 23 Aug 2013 Annot ation s: JUVENCIO SIEGEL 2012 9:08P M Per pt repor t.; ; Brenda Natarajan [facility] 5 14:41:05 [id number] Compazine medicatio n other Not available Not available 11/02/2024 42741 6 RxNorm irrit abili ty Brenda Natarajan [facility] 5 14:41:50 3932301 Imdur medicatio n anxiety insomnia Not available Not available [facility] 05/30/2025 58280 2 RxNorm Melissa Macias PA-C [address] , [place], [address], [facility] 5 10:19:27 672522 Biaxin medicatio n nausea Not available Not available 10/12/20232006 19670 9 RxNorm React ion: Nause a; Not Available [facility] 4 21:45:38 249681 sumatript an succinate medicatio n Not available Not available Not available 10/12/20232006 58013 RxNorm React ion: Short ness of breat h; Arrhy thmia ; Not Available [facility] 4 21:45:39 078468 ciproflox acin hydrochlo ride medicatio n Not available Not available Not available 10/12/20232006 57480 RxNorm React ion: Synco pe; Short ness of breat h; Brenda Delgado [facility] 5 14:40:56 042151 Demerol medicatio n Not available Not available Not available 10/12/20232008 03823 1 RxNorm Comme nt: Annot ation s: GRUND Y, BRAND ON 2008 3:38P M NAUSE A; ; [facility] 14:[facility]59 938834 morphine sulfate medicatio n Not available Not available Not available 10/12/20232008 88385 RxNorm Comme nt: Annot ation s: GRUND Y, BRAND ON 2008 3:39P M NAUSE A; ; Brenda Natarajan [facility] 5 14:41:15 634456 hydromorp basim hydrochlo ride medicatio n Not available Not available Not available 10/12/20232008 65009 7 RxNorm Comme nt: Annot ation s: GRUND Y, BRAND ON 2008 3:39P M NAUSE A; ; Brenda Natarajan [facility] 5 14:41:12 Medications Name Sig Start Date [...] Available Not Available Not Available Dexcom G7 Registered Respiratory Therapist USE PER MANUFACT URER DIRECTIO NS active [...] Updated DateTime 08/03/2025 170.18 cm 42.4 kg/m2 907387.5 3 g 108 /min 97 % Emely Fischer [facility] 14:22:27 Social History Question Answer Notes LastModified by [employer] Details LastModified Time Tobacco Smoking Status Never [...] Do You Have A Medical Power Of Interior Design Coordinator? Yes [email or web address] Information not available 06/13/2024 What Was The Date Of Your Most Recent Tobacco Screening? 07/04/2025 [email or web address] Information not available 07/04/2025 What Is Your Relationship Status? [email or web address] Information not available 06/13/2024 Has Tobacco Cessation Counseling Been Provided? Yes [email or web address] Information not available 03/28/2025 On What Date Was Tobacco Cessation Counseling Provided? 03/28/2025 [email or web address] Information not available 03/28/2025 Sex: Unknown Functional Status Question Answer Note LastModified by [employer] Details LastModified Time How many times per [...] Cancer Y Thyroid Problems N Stroke N COPD N Depression Y Asthma Y Seizures N Anemia Y Heart Disease Y [...] recombinant, quadrivalent, PF 1 completed Brenda Natarajan [facility] 11/02/2024 14:40:15 Influenza, recombinant, quadrivalent, PF 0 completed Brenda Natarajan [facility] 11/02/2024 14:40:15 zoster recombinant 1 completed [facility]/2024 14:40:15 zoster recombinant 1 completed [facility] 11/02/2024 14:40:15 COVID-19, mRNA, LNP-S, PF, 100 mcg/0.5mL dose or 50 mcg/0.25mL dose 1 completed [facility] 11/02/2024 14:40:15 COVID-19, mRNA, LNP-S, PF, 100 mcg/0.5mL dose or 50 mcg/0.25mL dose 1 completed Brenda Natarajan [facility] 11/02/2024 14:40:15 COVID-19, mRNA, LNP-S, PF, 100 mcg/0.5mL dose or 50 mcg/0.25mL dose 1 completed Brenda Natarajan [facility] 11/02/2024 14:40:15 pneumococcal polysaccharide PPV23 1 completed Brenda Natarajan [facility] 11/02/2024 14:40:15 influenza, unspecified formulation 4 completed Brenda Natarajan [facility] 11/02/2024 14:40:15 influenza, unspecified formulation 4 completed Brenda Natarajan [facility] 11/02/2024 14:40:15 influenza, unspecified formulation 3 completed [facility] 11/02/2024 14:40:15 Tdap 7 completed [facility] 11/02/2024 14:40:15 Influenza, split virus, trivalent, preservative 1 completed [facility] 11/02/2024 14:40:15 Influenza, split virus, quadrivalent, PF 7 completed Brenda Natarajan [facility] 11/02/2024 14:40:15 Past Encounters Encounter ID Performer Location Encounter Start Date Encounter Closed Date Diagnosis/Indication Diagnosis SNOMED-CT Code Diagnosis ICD10 Code Diagnosis IMO Codes Diagnosis Note [id number] Melissa Macias PA-C [facility] ([place]) [address] [place] [address] 07/04/2025 11:15:12 07/04/2025 12:20:08 Primary insomnia 2213568 F51.01 Persistent depressive disorder 4305596111 F34.1 also anxiety and helps with hot flashes Migraine 74591876 G43.90 9 Recurrent major depression in remission 41098256 F33.40 8257046 Hypertensive disorder 38 535439 I10 [id number] Tiffanie Painting APN [employer] [facility] ([place]) [address] [place] [address] 08/03/2025 14:13:01 08/03/2025 14:40:42 Neuropathy due to type 2 diabetes mellitus 1568688556 32688 E11.40 Z79.4 [id number] Health Concerns Section Related Observation LastModified by Organization Detai ls LastModified Time None Recorded Concern Status LastModified by Organization Details LastModified Time None Recorded Payers Encounter Date Sequence Insurance Name Policy Number Policy Garcia Covered Member ID Garcia Member ID Guarantor Name 08/03/2025 2 [place] [facility] Leti White [id number] Leti White 08/03/2025 1 [facility] (MEDICARE REPLACEMENT/A DVANTAGE - PPO) [id number] Leti White [id number] Leti White Notes Date Note Type Note Provider Name and Address Organization Details Recorded Time text/html Leti Rice is here today for an endocrine follow up regarding diabetes mellitus type 2 diagnosed in 2004. Sent to endocrine because she would like to get Omnipod.Hemoglobin [id number]: Sept 6.8%2024: Alvarez 6.9%, Nov 6.8%Prior to pump start:Lantus 80 units at [...] with lung cancer and diabetes. Father with NH and diabetes. RUDY StapletonN [address] [facility], [place], [address], [facility] 08/03/2025 14:35:18 OBGyn Episode No OBEpisode recorded.
--- OUTSIDE RECORDS SUMMARY | 2025-08-11 13:56 | XMS_ITS ---
Author Organization Unknown Address [address] [place] [address] [phone] Phone Care Team Providers Care Electric Power Line Repairer Name Role Phone ABOOD ADEL Attending Unavailable PINKY Kyle Primary Unavailable Social History Type Status Start Date End Date Code Code Syst em Smoking History Never smoker (Never Smoked) 761989974 SNOMED CT Sex Female Vital Signs Vital Sign Value Unit [place] Value [place] Date/Time Recent/Initial? Code Code System Body Mass Index 43.85 kg/m2 12/29/2024 17:53 Initial 55539 -5 LOINC Systolic Blood Pressure 138 mm[Hg] 12/29/2024 17:53 Initial 8480- 6 LOINC Diastolic Blood Pressure 76 mm[Hg] 12/29/2024 17:53 Initial 8462- 4 LOINC Body Surface Area 2.45 m2 12/29/2024 17:53 Initial 3140- 1 LOINC Height 170.180 0 cm 67.00 in 12/29/2024 17:53 Initial 8302- 2 LOINC O2 Saturation 99 % 2024 18:31 Most Recent 89658 -5 LOINC O2 Saturation 96 % 2024 17:53 Initial 05884 -5 LOINC Pulse 64.0 /min 12/29/2024 18:31 Most Recent 8867- 4 LOINC Pulse 60.0 /min 12/29/2024 17:53 Initial 8867- 4 LOINC Respiration 18 /min 12/30/19 18:31 Most Recent 9279- 1 LOINC Respiration 18 /min 12/30/19 17:53 Initial 9279- 1 LOINC Temperature 36.5 Alexandrea 97.7 F 12/30/19 17:53 Initial 8310- 5 LOINC Weight 127.01 kg 280.00 lbs 12/29/2024 17:53 Initial 69262 -7 [facility] Medications Medication Start Date End Date Route Frequency Dose Code Code System Medication Instructions Home Meds Lidoderm 5% Topical application Patch, Extended Release 11/02/2024 02/28/2025 1 5163597 RxNorm 1 patch daily Zofran 4MG Oral Tablet 05/03/2025 Unknown ORAL EVERY 6 HOURS 1 TABLET 943974 RxNorm TAKE 1 TABLET ORAL EVERY 6 [...] Code Code System CHRONIC NECK PAIN active 751959082858 7 SNOMED-CT DISORDER OF ROTATOR CUFF active 665922406 SNOMED-CT SPRAIN OF LEFT SHOULDER active 57924730916091831 SNOMED-CT CHRONIC BACK PAIN active 315935861 SN OMED-CT CHRONIC MIGRAINE active 424673167 SNO MED-CT DIABETES active 46687067 SNOMED-CT GASTROPARESES active 655259354 SNOMED -CT ERIKA CELL NEOPLASM active 272793033 SNOMED-CT HYPERTENSION active 85973855 SNOMED- CT DRUG SEEKING BEHAVIOR active 03273550 SNOMED-CT MALINGERING active 13696326 SNOMED-C 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 10/24/2024 resolved 62726478 SNOMED-CT Allergies and Adverse Reactions Allergy Substance Reaction Severity Start Date Concern Status Code Code System PROCHLORPERAZINE go crazy (SNOMED-CT: null) Severe Active 8704 RxNorm ISOSORBIDE MONONITRATE SOB, anxiety (SNOMED-CT: null) Active 29913 RxNorm CLARITHROMYCIN Vomiting (SNOMED-CT: 852012654) Severe Active 81333 RxNorm BENADRYL went crazy (SNOMED-CT: null) Severe Active 170266 RxNorm IMITREX Tachycardia (SNOMED-CT: 5421639) Moderate Active 225080 RxNorm Plan of Treatment No Data Found Encounters Encounter Diagnosis Start Date Code Code Sys tem 12/29/2024 5795904147 SNOMED-CT Personal Care Team Section
--- OUTSIDE RECORDS SUMMARY | 2025-08-11 13:56 | XMS_ITS ---
Author Organization Unknown Address [address] [place] [address] [phone] Phone Care Team Providers Care Abstracter Name Role Phone LINNETTE Hussein Attending Unavailable PINKY Kyle Primary Unavailable Social History Type Status Start Date End Date Code Code Syst em Smoking History Never smoker (Never Smoked) 224675250 SNOMED CT Sex Female Vital Signs Vital Sign Value Unit [place] Value [place] Unit Date/Time Recent/Initial? Code Code System Body Mass Index 43.85 kg/m2 03/24/2025 21:59 Initial 87378 -5 LOINC Systolic Blood Pressure 170 mm[Hg] 03/24/2025 22:30 Most Recent 8480- 6 LOINC Diastolic Blood Pressure 76 mm[Hg] 03/24/2025 22:30 Most Recent 8462- 4 LOINC Systolic Blood Pressure 188 mm[Hg] 03/24/2025 21:59 Initial 8480- 6 LOINC Diastolic Blood Pressure 88 mm[Hg] 03/24/2025 21:59 Initial 8462- 4 LOINC Body Surface Area 2.45 m2 03/24/2025 21:59 Initial 3140- 1 LOINC Height 170.180 0 cm 67.00 in 03/24/2025 21:59 Initial 8302- 2 LOINC O2 Saturation 98 % 2024 22:30 Most Recent 93739 -5 LOINC O2 Saturation 95 % 2024 21:59 Initial 27172 -5 LOINC Pulse 68.0 /min 03/24/2025 22:30 Most Recent 8867- 4 LOINC Pulse 90.0 /min 03/24/2025 21:59 Initial 8867- 4 LOINC Respiration 18 /min 03/24/20 22:30 Most Recent 9279- 1 LOINC Respiration 20 /min 03/24/20 21:59 Initial 9279- 1 [facility] Temperature 36.8 Alexandrea 98.2 F 03/24/20 21:59 Initial 8310- 5 [facility] Weight 127.01 kg 280.00 lbs 03/24/2025 21:59 Initial 79405 -7 [facility] Medications Medication Start Date End Date Route Frequency Dose Code Code System Medication Instructions Home Meds Zofran 4MG Oral Tablet 05/03/2025 Unknown ORAL EVERY 6 HOURS 1 TABLET 438090 RxNorm TAKE 1 TABLET ORAL EVERY 6 [...] Code Code System CHRONIC NECK PAIN active 745594820281 7 SNOMED-CT DISORDER OF ROTATOR CUFF active 901240793 SNOMED-CT SPRAIN OF LEFT SHOULDER active 71293697737920162 SNOMED-CT CHRONIC BACK PAIN active 227960070 SN OMED-CT CHRONIC MIGRAINE active 979968553 SNO MED-CT DIABETES active 49899091 SNOMED-CT GASTROPARESES active 794163891 SNOMED -CT ERIKA CELL NEOPLASM active 725408796 SNOMED-CT HYPERTENSION active 79352815 SNOMED- CT DRUG SEEKING BEHAVIOR active 71087063 SNOMED-CT MALINGERING active 62440872 SNOMED-C 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 10/24/2024 resolved 80199412 SNOMED-CT Allergies and Adverse Reactions Allergy Substance Reaction Severity Start Date Concern Status Code Code System PROCHLORPERAZINE go crazy (SNOMED-CT: null) Severe Active 8704 RxNorm ISOSORBIDE MONONITRATE SOB, anxiety (SNOMED-CT: null) Active 87095 RxNorm CLARITHROMYCIN Vomiting (SNOMED-CT: 964679432) Severe Active 44847 RxNorm BENADRYL went crazy (SNOMED-CT: null) Severe Active 994952 RxNorm IMITREX Tachycardia (SNOMED-CT: 5784205) Moderate Active 844339 RxNorm Plan of Treatment No Data Found Encounters Encounter Diagnosis Start Date Code Code Sys tem Migraine, unspecified, not i ntractable, without status migrainosus 03/24/2025 SNOMED-CT Personal Care Team Section
--- OUTSIDE RECORDS SUMMARY | 2025-08-11 13:56 | XMS_ITS ---
Author Organization Unknown Address [address] [place] [address] [phone] Phone Care Team Providers Care Cow Puncher Name Role Phone DEBORAH GARCIA Registered Nurse Unavailable YRN ZEPEDA Attending Unavailable PINKY Kyle Primary Unavailable Social History Type Status Start Date End Date Code Code Syst em Smoking History Never smoker (Never Smoked) 945457959 SNOMED CT Sex Female Vital Signs Vital Sign Value Unit [place] Value [place] Date/Time Recent/Initial? Code Code System Systolic Blood Pressure 117 mm[Hg] 01/06/2025 17:55 Most Recent 8480-6 LOINC Diastolic Blood Pressure 84 mm[Hg] 01/06/2025 17:55 Most Recent 8462-4 LOINC Systolic Blood Pressure 145 mm[Hg] 01/06/2025 17:19 Initial 8480-6 LOINC Diastolic Blood Pressure 75 mm[Hg] 01/06/2025 17:19 Initial 8462-4 LOINC O2 Saturation 98 % 2024 17:55 Most Recent 84491- 5 LOINC O2 Saturation 94 % 2024 17:19 Initial 09896- 5 LOINC Pulse 63.0 /min 01/06/2025 17:55 [...] application Patch, Extended Release 11/02/2024 02/28/2025 1 6249404 RxNorm 1 patch daily Zofran 4MG Oral Tablet 05/03/2025 Unknown ORAL EVERY 6 HOURS 1 TABLET 994294 RxNorm TAKE 1 TABLET ORAL EVERY 6 [...] Code Code System CHRONIC NECK PAIN active 040670707093 7 SNOMED-CT DISORDER OF ROTATOR CUFF active 080457943 SNOMED-CT SPRAIN OF LEFT SHOULDER active 95508665300911472 SNOMED-CT CHRONIC BACK PAIN active 990545451 SN OMED-CT CHRONIC MIGRAINE active 296498616 SNO MED-CT DIABETES active 11554495 SNOMED-CT GASTROPARESES active 097834655 SNOMED -CT ERIKA CELL NEOPLASM active 553654262 SNOMED-CT HYPERTENSION active 29008348 SNOMED- CT DRUG SEEKING BEHAVIOR active 31966476 SNOMED-CT MALINGERING active 41075851 SNOMED-C 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 10/24/2024 resolved 47846148 SNOMED-CT Allergies and Adverse Reactions Allergy Substance Reaction Severity Start Date Concern Status Code Code System PROCHLORPERAZINE go crazy (SNOMED-CT: null) Severe Active 8704 RxNorm ISOSORBIDE MONONITRATE SOB, anxiety (SNOMED-CT: null) Active 14511 RxNorm CLARITHROMYCIN Vomiting (SNOMED-CT: 246473011) Severe Active 13515 RxNorm BENADRYL went crazy (SNOMED-CT: null) Severe Active 138799 RxNorm IMITREX Tachycardia (SNOMED-CT: 1122635) Moderate Active 832426 RxNorm Plan of Treatment No Data Found Encounters Encounter Diagnosis Start Date Code Code Sys tem Neck pain 01/06/2025 10389518 SNOMED-CT Personal Care Team Section
--- OUTSIDE RECORDS SUMMARY | 2025-08-11 14:00 | XMS_ITS ---
Author Organization Unknown Address [address] [place] [address] [phone] Phone Care Team Providers Care Manager Express Name Role Phone YRN ZEPEDA Attending Unavailable CARRILLO COATS Primary Unavailable Social History Type Status Start Date End Date Code Code Syst em Smoking History Never smoker (Never Smoked) 519636727 SNOMED CT Sex Female Vital Signs Vital Sign Value Unit [place] Value [place] Unit Date/Time Recent/Initial? Code Code System Body Mass Index 43.85 kg/m2 10/24/2024 19:25 Initial 16156 -5 LOINC Systolic Blood Pressure 127 mm[Hg] [...] Saturation 96 % 2024 20:30 Most Recent 10565 -5 LOINC O2 Saturation 97 % 2024 19:25 Initial 84504 -5 LOINC Pulse 61.0 /min 10/24/2024 20:30 Most Recent 8867- 4 LOINC Pulse 67.0 /min 10/24/2024 19:25 Initial 8867- 4 LOINC Respiration 17 /min 10/24/19 20:30 Most Recent 9279- 1 LOINC Respiration 20 /min 10/24/19 19:25 Initial 9279- 1 [facility] Temperature 36.8 Alexandrea 98.3 F 10/24/19 19:25 Initial 8310- 5 [facility] Weight 127.01 kg 280.00 lbs 10/24/2024 19:25 Initial 15558 -7 [facility] Medications Medication Start Date End Date Route Frequency Dose Code Code System Medication Instructions Home Meds Lidoderm 5% Topical application Patch, Extended Release 11/02/2024 02/28/2025 1 1881455 RxNorm 1 patch daily Zofran 4MG Oral Tablet 05/03/2025 Unknown ORAL EVERY 6 HOURS 1 TABLET 881061 RxNorm TAKE 1 TABLET ORAL EVERY 6 [...] Code Syste m BIOPSY/REMOVAL LYMPH NODES completed 93031982 SNOMEDCT Problems Problem Start Date Resolved Date Status Code Code System CHRONIC NECK PAIN active 687629704021 7 SNOMED-CT DISORDER OF ROTATOR CUFF active 840555292 SNOMED-CT SPRAIN OF LEFT SHOULDER active 95033916249283215 SNOMED-CT CHRONIC BACK PAIN active 468243113 SN OMED-CT CHRONIC MIGRAINE active 916272916 SNO MED-CT DIABETES active 65508700 SNOMED-CT GASTROPARESES active 756549137 SNOMED -CT ERIKA CELL NEOPLASM active 529724355 SNOMED-CT HYPERTENSION active 63397235 SNOMED- CT DRUG SEEKING BEHAVIOR active 20199901 SNOMED-CT MALINGERING active 43163017 SNOMED-C 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 10/24/2024 resolved 92000971 SNOMED-CT Allergies and Adverse Reactions Allergy Substance Reaction Severity Start Date Concern Status Code Code System PROCHLORPERAZINE go crazy (SNOMED-CT: null) Severe Active 8704 RxNorm ISOSORBIDE MONONITRATE SOB, anxiety (SNOMED-CT: null) Active 88684 RxNorm CLARITHROMYCIN Vomiting (SNOMED-CT: 127181993) Severe Active RxNorm BENADRYL went crazy (SNOMED-CT: null) Severe Active 20340118 RxNorm IMITREX Tachycardia (SNOMED-CT: 1691429) Moderate Active 21760916 RxNorm Plan of Treatment No Data Found Encounters Encounter Diagnosis Start Date Code Code Sys tem Backache 10/24/2024 330215297 [employer] [facility] Personal Care Team Section
--- OUTSIDE RECORDS SUMMARY | 2025-08-11 14:00 | XMS_ITS ---
Author Organization Unknown Address [address] [place] [address] [phone] Phone Care Team Providers Care Bore Mill Operator Name Role Phone YRN ZEPEDA Attending Unavailable PINKY Kyle Primary Unavailable Social History Type Status Start Date End Date Code Code Syst em Smoking History Never smoker (Never Smoked) 397506811 SNOMED CT Sex Female Vital Signs Vital Sign Value Unit [place] Value [place] Unit Date/Time Recent/Initial? Code Code System Body Mass Index 43.54 kg/m2 02/28/2025 20:59 Initial 36182 -5 LOINC Systolic Blood Pressure 150 mm[Hg] [...] Saturation 95 % 2024 22:07 Most Recent 78533 -5 LOINC O2 Saturation 96 % 2024 20:59 Initial 51009 -5 LOINC Pulse 60.0 /min 02/28/2025 22:07 Most Recent 8867- 4 LOINC Pulse 76.0 /min 02/28/2025 20:59 Initial 8867- 4 LOINC Respiration 17 /min 02/29/20 25 22:07 Most Recent 9279- 1 LOINC Respiration 17 /min 02/29/20 20:59 Initial 9279- 1 [facility] Temperature 36.6 Alexandrea 97.8 F 02/29/20 20:59 Initial 8310- 5 [facility] Weight 126.10 kg 278.00 lbs 02/28/2025 20:59 Initial 93071 -7 [facility] Medications Medication Start Date End Date Route Frequency Dose Code Code System Medication Instructions Home Meds Lidoderm 5% Topical application Patch, Extended Release 11/02/2024 02/28/2025 1 5312928 RxNorm 1 patch daily Zofran 4MG Oral Tablet 05/03/2025 Unknown ORAL EVERY 6 HOURS 1 TABLET 450058 RxNorm TAKE 1 TABLET ORAL EVERY 6 [...] Code Code System CHRONIC NECK PAIN active 644723615898 7 SNOMED-CT DISORDER OF ROTATOR CUFF active 847279532 SNOMED-CT SPRAIN OF LEFT SHOULDER active 91105969104166900 SNOMED-CT CHRONIC BACK PAIN active 234741026 SN OMED-CT CHRONIC MIGRAINE active 371492229 SNO MED-CT DIABETES active 68453425 SNOMED-CT GASTROPARESES active 865778310 SNOMED -CT ERIKA CELL NEOPLASM active 888165108 SNOMED-CT HYPERTENSION active 61219505 SNOMED- CT DRUG SEEKING BEHAVIOR active 58613889 SNOMED-CT MALINGERING active 04110188 SNOMED-C 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 10/24/2024 resolved 74810396 SNOMED-CT Allergies and Adverse Reactions Allergy Substance Reaction Severity Start Date Concern Status Code Code System PROCHLORPERAZINE go crazy (SNOMED-CT: null) Severe Active 8704 RxNorm ISOSORBIDE MONONITRATE SOB, anxiety (SNOMED-CT: null) Active 07764 RxNorm CLARITHROMYCIN Vomiting (SNOMED-CT: 555652223) Severe Active 65116 RxNorm BENADRYL went crazy (SNOMED-CT: null) Severe Active 20340118 RxNorm IMITREX Tachycardia (SNOMED-CT: 2190084) Moderate Active 335252 RxNorm Plan of Treatment No Data Found Encounters Encounter Diagnosis Start Date Code Code Sys tem Migraine 02/28/2025 97138479 SNOMED-CT Personal Care Team Section
--- OUTSIDE RECORDS SUMMARY | 2025-08-11 14:01 | XMS_ITS ---
Author Organization Unknown Address [address] [place] [address] [phone] Phone Care Team Providers Care Associate Field Service Engineer Name Role Phone ABOOD ADEL Attending Unavailable CARRILLO COATS Primary Unavailable Social History Type Status Start Date End Date Code Code Syst em Smoking History Never smoker (Never Smoked) 109535996 SNOMED CT Sex Female Vital Signs Vital Sign Value Unit [place] Value [place] Unit Date/Time Recent/Initial? Code Code System Body Mass Index 42.60 kg/m2 06/30/2025 20:01 Initial 25303 -5 [facility] Systolic Blood Pressure 163 mm[Hg] 06/30/2025 20:01 Initial 8480- 6 [facility] Diastolic Blood Pressure 82 mm[Hg] 06/30/2025 20:01 Initial 8462- 4 [facility] Body Surface Area 2.42 m2 06/30/2025 20:01 Initial 3140- 1 LOINC Height 170.180 0 cm 67.00 in 06/30/2025 20:01 Initial 8302- 2 [facility] O2 Saturation 97 % 2024 20:01 Initial 88497 -5 [facility] Pulse 97.0 /min 06/30/2025 20:01 Initial 8867- 4 [facility] Respiration 20 /min 06/30/20 20:01 Initial 9279- 1 LOINC Temperature 36.9 Alexandrea 98.4 F 06/30/20 20:01 Initial 8310- 5 [facility] Weight 123.38 kg 272.00 lbs 06/30/2025 20:01 Initial 46434 -7 [facility] Medications Medication Start Date End Date Route Frequency Dose Code Code System Medication Instructions Home Meds Zofran 4MG Oral Tablet 05/03/2025 Unknown ORAL EVERY 6 HOURS 1 TABLET 762595 RxNorm TAKE 1 TABLET ORAL EVERY 6 [...] Code Code System CHRONIC NECK PAIN active 786067465169 7 SNOMED-CT DISORDER OF ROTATOR CUFF active 198402426 SNOMED-CT SPRAIN OF LEFT SHOULDER active 96776061781149491 SNOMED-CT CHRONIC BACK PAIN active 309290475 SN OMED-CT CHRONIC MIGRAINE active 548735074 SNO MED-CT DIABETES active 25457438 SNOMED-CT GASTROPARESES active 709497758 SNOMED -CT ERIKA CELL NEOPLASM active 925403718 SNOMED-CT HYPERTENSION active 81834480 SNOMED- CT DRUG SEEKING BEHAVIOR active 92641958 SNOMED-CT MALINGERING active 76357599 SNOMED-C 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 10/24/2024 resolved 57492372 SNOMED-CT Allergies and Adverse Reactions Allergy Substance Reaction Severity Start Date Concern Status Code Code System PROCHLORPERAZINE go crazy (SNOMED-CT: null) Severe Active 8704 RxNorm ISOSORBIDE MONONITRATE SOB, anxiety (SNOMED-CT: null) Active 85740 RxNorm CLARITHROMYCIN Vomiting (SNOMED-CT: 014047603) Severe Active 50695 RxNorm BENADRYL went crazy (SNOMED-CT: null) Severe Active 885742 RxNorm IMITREX Tachycardia (SNOMED-CT: 4973910) Moderate Active 721297 RxNorm Plan of Treatment No Data Found Encounters Encounter Diagnosis Start Date Code Code Sys tem Malingerer [conscious simulation] 06/30/2025 SNOMED-CT Personal Care Team Section
--- OUTSIDE RECORDS SUMMARY | 2025-08-11 14:01 | XMS_ITS ---
Author Organization Unknown Address [address] [place] [address] [phone] Phone Care Team Providers Care Paper And Prints Restorer Name Role Phone ABOOD ADEL Attending Unavailable CARRILLO COATS Primary Unavailable Social History Type Status Start Date End Date Code Code Syst em Smoking History Never smoker (Never Smoked) 678507756 SNOMED CT Sex Female Vital Signs Vital Sign Value Unit [place] Value [place] Unit Date/Time Recent/Initial? Code Code System Body Mass Index 43.85 kg/m2 11/02/2024 21:07 Initial 26805 -5 LOINC Systolic Blood Pressure 166 mm[Hg] [...] Saturation 98 % 2024 21:57 Most Recent 87233 -5 LOINC O2 Saturation 99 % 2024 21:07 Initial 53332 -5 LOINC Pulse 60.0 /min 11/02/2024 21:57 Most Recent 8867- 4 LOINC Pulse 64.0 /min 11/02/2024 21:07 Initial 8867- 4 LOINC Respiration 17 /min 11/02/19 21:57 Most Recent 9279- 1 LOINC Respiration 20 /min 11/02/19 21:07 Initial 9279- 1 [facility] Temperature 36.7 Alexandrea 98.0 F 11/02/19 21:07 Initial 8310- 5 [facility] Weight 127.01 kg 280.00 lbs 11/02/2024 21:07 Initial 36413 -7 [facility] Medications Medication Start Date End Date Route Frequency Dose Code Code System Medication Instructions Home Meds Lidoderm 5% Topical application Patch, Extended Release 11/02/2024 02/28/2025 1 7033816 RxNorm 1 patch daily Zofran 4MG Oral Tablet 05/03/2025 Unknown ORAL EVERY 6 HOURS 1 TABLET 599434 RxNorm TAKE 1 TABLET ORAL EVERY 6 [...] Code Code System CHRONIC NECK PAIN active 801322623693 7 SNOMED-CT DISORDER OF ROTATOR CUFF active 500077447 SNOMED-CT SPRAIN OF LEFT SHOULDER active 10539365339436486 SNOMED-CT CHRONIC BACK PAIN active 398515565 SN OMED-CT CHRONIC MIGRAINE active 734004894 SNO MED-CT DIABETES active 06494198 SNOMED-CT GASTROPARESES active 986668079 SNOMED -CT ERIKA CELL NEOPLASM active 710136856 SNOMED-CT HYPERTENSION active 96545866 SNOMED- CT DRUG SEEKING BEHAVIOR active 51005857 SNOMED-CT MALINGERING active 84159464 SNOMED-C 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 10/24/2024 resolved 74982891 SNOMED-CT Allergies and Adverse Reactions Allergy Substance Reaction Severity Start Date Concern Status Code Code System PROCHLORPERAZINE go crazy (SNOMED-CT: null) Severe Active 8704 RxNorm ISOSORBIDE MONONITRATE SOB, anxiety (SNOMED-CT: null) Active 12546 RxNorm CLARITHROMYCIN Vomiting (SNOMED-CT: 002704825) Severe Active 30661 RxNorm BENADRYL went crazy (SNOMED-CT: null) Severe Active 571359 RxNorm IMITREX Tachycardia (SNOMED-CT: 9801590) Moderate Active 166134 RxNorm Plan of Treatment No Data Found Encounters Encounter Diagnosis Start Date Code Code Sys tem Backache 11/02/2024 204799046 SNOMED-CT Personal Care Team Section Discharge Summary Notes CANDY Hua O 11/02/2024 22:23 filter failed to render (id: '${filterNoteHistoryId}') filter failed to render (id: '${filterNoteHistoryId}') filter failed to render (id: '${filterNoteHistoryId}') ED Nursing Discharge Disposition Checklist Stop times completed in order chronology for all IV fluids / IVPB medications I & O's entered in vital signs Discharge [ x ] Home [ ] FCI [ ] Custodial [ ] Left AMA [ ] AMA [...]
--- OUTSIDE RECORDS SUMMARY | 2025-08-11 14:01 | XMS_ITS ---
Author Organization Unknown Address [address] [place] [address] [phone] Phone Care Team Providers Care Road Engineer Name Role Phone DEBORAH GARCIA Registered Nurse Unavailable COLBY JONES Attending Unavailable CARRILLO COATS Primary Unavailable Social History Type Status Start Date End Date Code Code Syst em Smoking History Never smoker (Never Smoked) 513439878 SNOMED CT Sex Female Vital Signs Vital Sign Value Unit [place] Value [place] Unit Date/Time Recent/Initial? Code Code System Body Mass Index 42.38 kg/m2 07/11/2025 15:20 Initial 10416 -5 LOINC Systolic Blood Pressure 119 mm[Hg] [...] O2 Saturation 98 % 2024 15:20 Initial 45281 -5 LOINC Pulse 81.0 /min 07/11/2025 18:50 Most Recent 8867- 4 LOINC Pulse 84.0 /min 07/11/2025 15:20 Initial 8867- 4 LOINC Respiration 20 /min 07/11/20 18:50 Most Recent 9279- 1 LOINC Respiration 20 /min 07/11/20 15:20 Initial 9279- 1 LO[facility] Temperature 37.1 Alexandrea 98.7 F 07/11/20 15:20 Initial 8310- 5 [facility] Weight 122.74 kg 270.60 lbs 07/11/2025 15:20 Initial 36057 -7 [facility] Medications Medication Start Date End Date Route Frequency Dose Code Code System Medication Instructions Home Meds Zofran 4MG Oral Tablet 05/03/2025 Unknown ORAL EVERY 6 HOURS 1 TABLET 954656 RxNorm TAKE 1 TABLET ORAL EVERY 6 [...] Code Code System CHRONIC NECK PAIN active 771114635037 7 SNOMED-CT DISORDER OF ROTATOR CUFF active 365612005 SNOMED-CT SPRAIN OF LEFT SHOULDER active 45754879888943805 SNOMED-CT CHRONIC BACK PAIN active 936381265 SN OMED-CT CHRONIC MIGRAINE active 921881109 SNO MED-CT DIABETES active 82588418 SNOMED-CT GASTROPARESES active 761424258 SNOMED -CT ERIKA CELL NEOPLASM active 754362948 SNOMED-CT HYPERTENSION active 45643353 SNOMED- CT DRUG SEEKING BEHAVIOR active 75376243 SNOMED-CT MALINGERING active 77166662 SNOMED-C 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 10/24/2024 resolved 41738560 SNOMED-CT Allergies and Adverse Reactions Allergy Substance Reaction Severity Start Date Concern Status Code Code System PROCHLORPERAZINE go crazy (SNOMED-CT: null) Severe Active 8704 RxNorm ISOSORBIDE MONONITRATE SOB, anxiety (SNOMED-CT: null) Active 42182 RxNorm CLARITHROMYCIN Vomiting (SNOMED-CT: 219813672) Severe Active 12090 RxNorm BENADRYL went crazy (SNOMED-CT: null) Severe Active 933268 RxNorm IMITREX Tachycardia (SNOMED-CT: 0950393) Moderate Active 666571 RxNorm Plan of Treatment No Data Found Encounters Encounter Diagnosis Start Date Code Code Sys tem Migraine, unspecified, not i ntractable, without status migrainosus 07/11/2025 SNOMED-CT Personal Care Team Section
--- OUTSIDE RECORDS SUMMARY | 2025-08-11 14:01 | XMS_ITS ---
Author Organization Unknown Address [address] [place] [address] [phone] Phone Care Team Providers Care Hardboard Supervisor Name Role Phone CHRISTIANE COUCH Registered Nurse Unavailable PREMA Kyle Attending Unavailable CARRILLO COATS Primary Unavailable Social History Type Status Start Date End Date Code Code Syst em Smoking History Never smoker (Never Smoked) 092780141 SNOMED CT Sex Female Vital Signs Vital Sign Value Unit [place] Value [place] Unit Date/Time Recent/Initial? Code Code System Body Mass Index 43.85 kg/m2 04/23/2025 18:42 Initial 89722 -5 LOINC Systolic Blood Pressure 143 mm[Hg] [...] Saturation 97 % 2024 20:05 Most Recent 11466 -5 LOINC O2 Saturation 98 % 2024 18:42 Initial 68207 -5 LOINC Pulse 80.0 /min 04/23/2025 20:05 Most Recent 8867- 4 LOINC Pulse 58.0 /min 04/23/2025 18:42 Initial 8867- 4 LOINC Respiration 20 /min 04/23/20 20:05 Most Recent 9279- 1 LOINC Respiration 20 /min 04/23/20 18:42 Initial 9279- 1 [facility] Temperature 36.6 Alexandrea 97.8 F 04/23/20 18:42 Initial 8310- 5 [facility] Weight 127.01 kg 280.00 lbs 04/23/2025 18:42 Initial 79208 -7 [facility] Medications Medication Start Date End Date Route Frequency Dose Code Code System Medication Instructions Home Meds Zofran 4MG Oral Tablet 05/03/2025 Unknown ORAL EVERY 6 HOURS 1 TABLET 737805 RxNorm TAKE 1 TABLET ORAL EVERY 6 [...] Code Code System CHRONIC NECK PAIN active 840644224772 7 SNOMED-CT DISORDER OF ROTATOR CUFF active 736523841 SNOMED-CT SPRAIN OF LEFT SHOULDER active 94060619773972073 SNOMED-CT CHRONIC BACK PAIN active 503367008 SN OMED-CT CHRONIC MIGRAINE active 936345416 SNO MED-CT DIABETES active 98077378 SNOMED-CT GASTROPARESES active 481330925 SNOMED -CT ERIKA CELL NEOPLASM active 989427763 SNOMED-CT HYPERTENSION active 87062935 SNOMED- CT DRUG SEEKING BEHAVIOR active 99659176 SNOMED-CT MALINGERING active 62726530 SNOMED-C 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 10/24/2024 resolved 61984161 SNOMED-CT Allergies and Adverse Reactions Allergy Substance Reaction Severity Start Date Concern Status Code Code System PROCHLORPERAZINE go crazy (SNOMED-CT: null) Severe Active 8704 RxNorm ISOSORBIDE MONONITRATE SOB, anxiety (SNOMED-CT: null) Active 95201 RxNorm CLARITHROMYCIN Vomiting (SNOMED-CT: 648984756) Severe Active 13836 RxNorm BENADRYL went crazy (SNOMED-CT: null) Severe Active 20340118 RxNorm IMITREX Tachycardia (SNOMED-CT: 9194302) Moderate Active 409621 RxNorm Plan of Treatment No Data Found Encounters Encounter Diagnosis Start Date Code Code Sys tem Migraine, unspecified, not i ntractable, without status migrainosus 04/23/2025 SNOMED-CT Personal Care Team Section
--- OUTSIDE RECORDS SUMMARY | 2025-08-11 14:02 | XMS_ITS ---
Author Organization Unknown Address [address] [place] [address] [phone] Phone Care Team Providers Care Environmental Programs Manager Name Role Phone ABOOD ADEL Attending Unavailable PINKY Kyle Primary Unavailable Social History Type Status Start Date End Date Code Code Syst em Smoking History Never smoker (Never Smoked) 302439306 SNOMED CT Sex Female Vital Signs Vital Sign Value Unit [place] Value [place] Unit Date/Time Recent/Initial? Code Code System Body Mass Index 43.85 kg/m2 12/29/2024 17:53 Initial 43709 -5 LOINC Systolic Blood Pressure 138 mm[Hg] 12/29/2024 17:53 Initial 8480- 6 LOINC Diastolic Blood Pressure 76 mm[Hg] 12/29/2024 17:53 Initial 8462- 4 LOINC Body Surface Area 2.45 m2 12/29/2024 17:53 Initial 3140- 1 LOINC Height 170.180 0 cm 67.00 in 12/29/2024 17:53 Initial 8302- 2 LOINC O2 Saturation 99 % 2024 18:31 Most Recent 87973 -5 LOINC O2 Saturation 96 % 2024 17:53 Initial 16005 -5 LOINC Pulse 64.0 /min 12/29/2024 18:31 Most Recent 8867- 4 LOINC Pulse 60.0 /min 12/29/2024 17:53 Initial 8867- 4 LOINC Respiration 18 /min 12/30/19 18:31 Most Recent 9279- 1 LOINC Respiration 18 /min 12/30/19 17:53 Initial 9279- 1 [facility] Temperature 36.5 Alexandrea 97.7 F 12/30/19 17:53 Initial 8310- 5 LO[facility] Weight 127.01 kg 280.00 lbs 12/29/2024 17:53 Initial 80909 -[address] [facility] Medications Medication Start Date End Date Route Frequency Dose Code Code System Medication Instructions Home Meds Lidoderm 5% Topical application Patch, Extended Release 11/02/2024 02/28/2025 1 3016036 RxNorm 1 patch daily Zofran 4MG Oral Tablet 05/03/2025 Unknown ORAL EVERY 6 HOURS 1 TABLET 939279 RxNorm TAKE 1 TABLET ORAL EVERY 6 [...] Code Code System CHRONIC NECK PAIN active 566133770849 7 SNOMED-CT DISORDER OF ROTATOR CUFF active 663281467 SNOMED-CT SPRAIN OF LEFT SHOULDER active 89054290086366220 SNOMED-CT CHRONIC BACK PAIN active 338721427 SN OMED-CT CHRONIC MIGRAINE active 941300572 SNO MED-CT DIABETES active 04377893 SNOMED-CT GASTROPARESES active 487112002 SNOMED -CT ERIKA CELL NEOPLASM active 699127139 SNOMED-CT HYPERTENSION active 51948843 SNOMED- CT DRUG SEEKING BEHAVIOR active 53648168 SNOMED-CT MALINGERING active 14408547 SNOMED-C 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 10/24/2024 resolved 11129492 SNOMED-CT Allergies and Adverse Reactions Allergy Substance Reaction Severity Start Date Concern Status Code Code System PROCHLORPERAZINE go crazy (SNOMED-CT: null) Severe Active 8704 RxNorm ISOSORBIDE MONONITRATE SOB, anxiety (SNOMED-CT: null) Active 59704 RxNorm CLARITHROMYCIN Vomiting (SNOMED-CT: 630166419) Severe Active 65174 RxNorm BENADRYL went crazy (SNOMED-CT: null) Severe Active 507673 RxNorm IMITREX Tachycardia (SNOMED-CT: 4423761) Moderate Active 266210 RxNorm Plan of Treatment No Data Found Encounters Encounter Diagnosis Start Date Code Code Sys tem 12/29/2024 2989684258 SNOMED-CT Personal Care Team Section
--- OUTSIDE RECORDS SUMMARY | 2025-08-11 14:02 | XMS_ITS ---
Author Organization Unknown Address [address] [place] [address] [phone] Phone Care Team Providers Care Lunch Cook Name Role Phone NAPOLEON STEWART Attending Unavailable CARRILLO COATS Primary Unavailable Social History Type Status Start Date End Date Code Code Syst em Smoking History Never smoker (Never Smoked) 053995430 SNOMED CT Sex Female Vital Signs Vital Sign Value Unit [place] Value [place] Unit Date/Time Recent/Initial? Code Code System Body Mass Index 43.38 kg/m2 04/11/2025 20:23 Initial 05002 -5 LOINC Systolic Blood Pressure 140 mm[Hg] [...] Saturation 94 % 2024 21:20 Most Recent 95705 -5 LOINC O2 Saturation 96 % 2024 20:23 Initial 17782 -5 LOINC Pulse 62.0 /min 04/11/2025 21:20 Most Recent 8867- 4 LOINC Pulse 68.0 /min 04/11/2025 20:23 Initial 8867- 4 LOINC Respiration 18 /min 04/11/20 21:20 Most Recent 9279- 1 LOINC Respiration 18 /min 07/29/20 25 20:23 Initial 9279- 1 [facility] Temperature 36.4 Alexandrea 97.5 F 04/11/20 20:23 Initial 8310- 5 [facility] Weight 125.65 kg 277.00 lbs 04/11/2025 20:23 Initial 93481 -7 [facility] Medications Medication Start Date End Date Route Frequency Dose Code Code System Medication Instructions Home Meds Zofran 4MG Oral Tablet 05/03/2025 Unknown ORAL EVERY 6 HOURS 1 TABLET 776392 RxNorm TAKE 1 TABLET ORAL EVERY 6 [...] Code Code System CHRONIC NECK PAIN active 830890705412 7 SNOMED-CT DISORDER OF ROTATOR CUFF active 998132650 SNOMED-CT SPRAIN OF LEFT SHOULDER active 14845134767553056 SNOMED-CT CHRONIC BACK PAIN active 342834221 SN OMED-CT CHRONIC MIGRAINE active 930753478 SNO MED-CT DIABETES active 69646643 SNOMED-CT GASTROPARESES active 660874968 SNOMED -CT ERIKA CELL NEOPLASM active 982237269 SNOMED-CT HYPERTENSION active 62357671 SNOMED- CT DRUG SEEKING BEHAVIOR active 73480023 SNOMED-CT MALINGERING active 65094846 SNOMED-C 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 10/24/2024 resolved 59633088 SNOMED-CT Allergies and Adverse Reactions Allergy Substance Reaction Severity Start Date Concern Status Code Code System PROCHLORPERAZINE go crazy (SNOMED-CT: null) Severe Active 8704 RxNorm ISOSORBIDE MONONITRATE SOB, anxiety (SNOMED-CT: null) Active 34793 RxNorm CLARITHROMYCIN Vomiting (SNOMED-CT: 069389398) Severe Active 39270 RxNorm BENADRYL went crazy (SNOMED-CT: null) Severe Active 920372 RxNorm IMITREX Tachycardia (SNOMED-CT: 5178849) Moderate Active 955023 RxNorm Plan of Treatment No Data Found Encounters Encounter Diagnosis Start Date Code Code Sys tem Migraine, unspecified, not i ntractable, without status migrainosus 04/11/2025 SNOMED-CT Personal Care Team Section
--- OUTSIDE RECORDS SUMMARY | 2025-08-11 14:02 | XMS_ITS ---
Author Organization Unknown Address [address] [place] [address] [phone] Phone Care Team Providers Care Upholstery Cutter Name Role Phone PREMA Kyle Attending Unavailable CARRILLO COATS Primary Unavailable Social History Type Status Start Date End Date Code Code Syst em Smoking History Never smoker (Never Smoked) 959005457 SNOMED CT Sex Female Vital Signs Vital Sign Value Unit [place] Value [place] Unit Date/Time Recent/Initial? Code Code System Body Mass Index 42.76 kg/m2 06/11/2025 18:25 Initial 84991 -5 LOINC Systolic Blood Pressure 142 mm[Hg] [...] Saturation 97 % 2024 21:09 Most Recent 34285 -5 LOINC O2 Saturation 97 % 2024 18:25 Initial 34920 -5 LOINC Pulse 92.0 /min 06/11/2025 21:09 [...] 123.83 kg 273.00 lbs 06/11/2025 18:25 Initial 68004 -7 [facility] Medications Medication Start Date End Date Route Frequency Dose Code Code System Medication Instructions Home Meds Zofran 4MG Oral Tablet 05/03/2025 Unknown ORAL EVERY 6 HOURS 1 TABLET 191767 RxNorm TAKE 1 TABLET ORAL EVERY 6 [...] Code Code System CHRONIC NECK PAIN active 300637549385 7 SNOMED-CT DISORDER OF ROTATOR CUFF active 165549479 SNOMED-CT SPRAIN OF LEFT SHOULDER active 77615600354361802 SNOMED-CT CHRONIC BACK PAIN active 113622188 SN OMED-CT CHRONIC MIGRAINE active 195966543 SNO MED-CT DIABETES active 41021474 SNOMED-CT GASTROPARESES active 068778519 SNOMED -CT ERIKA CELL NEOPLASM active 942676199 SNOMED-CT HYPERTENSION active 81333741 SNOMED- CT DRUG SEEKING BEHAVIOR active 93861562 SNOMED-CT MALINGERING active 30448376 SNOMED-C 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 10/24/2024 resolved 56427297 SNOMED-CT Allergies and Adverse Reactions Allergy Substance Reaction Severity Start Date Concern Status Code Code System PROCHLORPERAZINE go crazy (SNOMED-CT: null) Severe Active 8704 RxNorm ISOSORBIDE MONONITRATE SOB, anxiety (SNOMED-CT: null) Active 23465 RxNorm CLARITHROMYCIN Vomiting (SNOMED-CT: 143401294) Severe Active 50160 RxNorm BENADRYL went crazy (SNOMED-CT: null) Severe Active 546279 RxNorm IMITREX Tachycardia (SNOMED-CT: 0630195) Moderate Active 656251 RxNorm Plan of Treatment No Data Found Encounters Encounter Diagnosis Start Date Code Code Sys tem Migraine, unspecified, not i ntractable, without status migrainosus 06/11/2025 SNOMED-CT Personal Care Team Section
--- OUTSIDE RECORDS SUMMARY | 2025-08-11 14:02 | XMS_ITS ---
Author Organization Unknown Address [address] [place] [address] [phone] Phone Care Team Providers Care Utility Worker Forge Name Role Phone LINNETTE Hussein Attending Unavailable PINKY Kyle Primary Unavailable Social History Type Status Start Date End Date Code Code Syst em Smoking History Never smoker (Never Smoked) 091410698 SNOMED CT Sex Female Vital Signs Vital Sign Value Unit [place] Value [place] Unit Date/Time Recent/Initial? Code Code System Body Mass Index 43.85 kg/m2 03/24/2025 21:59 Initial 44147 -5 LOINC Systolic Blood Pressure 170 mm[Hg] [...] Saturation 98 % 2024 22:30 Most Recent 26651 -5 LOINC O2 Saturation 95 % 2024 21:59 Initial 99951 -5 LOINC Pulse 68.0 /min 03/24/2025 22:30 Most Recent 8867- 4 LOINC Pulse 90.0 /min 03/24/2025 21:59 Initial 8867- 4 LOINC Respiration 18 /min 03/24/20 22:30 Most Recent 9279- 1 LOINC Respiration 20 /min 03/24/20 21:59 Initial 9279- 1 [facility] Temperature 36.8 Alexandrea 98.2 F 03/24/20 21:59 Initial 8310- 5 [facility] Weight 127.01 kg 280.00 lbs 03/24/2025 21:59 Initial 61136 -7 [facility] Medications Medication Start Date End Date Route Frequency Dose Code Code System Medication Instructions Home Meds Zofran 4MG Oral Tablet 05/03/2025 Unknown ORAL EVERY 6 HOURS 1 TABLET 299511 RxNorm TAKE 1 TABLET ORAL EVERY 6 [...] Code Code System CHRONIC NECK PAIN active 554281642021 7 SNOMED-CT DISORDER OF ROTATOR CUFF active 488561534 SNOMED-CT SPRAIN OF LEFT SHOULDER active 64009504385854448 SNOMED-CT CHRONIC BACK PAIN active 438017533 SN OMED-CT CHRONIC MIGRAINE active 833090976 SNO MED-CT DIABETES active 76953465 SNOMED-CT GASTROPARESES active 777326383 SNOMED -CT ERIKA CELL NEOPLASM active 269277042 SNOMED-CT HYPERTENSION active 21616323 SNOMED- CT DRUG SEEKING BEHAVIOR active 94202931 SNOMED-CT MALINGERING active 22276331 SNOMED-C 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 10/24/2024 resolved 17622636 SNOMED-CT Allergies and Adverse Reactions Allergy Substance Reaction Severity Start Date Concern Status Code Code System PROCHLORPERAZINE go crazy (SNOMED-CT: null) Severe Active 8704 RxNorm ISOSORBIDE MONONITRATE SOB, anxiety (SNOMED-CT: null) Active 72031 RxNorm CLARITHROMYCIN Vomiting (SNOMED-CT: 529714697) Severe Active 02130 RxNorm BENADRYL went crazy (SNOMED-CT: null) Severe Active 709319 RxNorm IMITREX Tachycardia (SNOMED-CT: 5074138) Moderate Active 451305 RxNorm Plan of Treatment No Data Found Encounters Encounter Diagnosis Start Date Code Code Sys tem Migraine, unspecified, not i ntractable, without status migrainosus 03/24/2025 SNOMED-CT Personal Care Team Section
--- OUTSIDE RECORDS SUMMARY | 2025-08-11 14:02 | XMS_ITS ---
Author Organization Unknown Address [address] [place] [address] [phone] Phone Care Team Providers Care Plastic Mixer Name Role Phone COLBY HSU ROBERT Attending Unavailable CARRILLO COATS Primary Unavailable Social History Type Status Start Date End Date Code Code Syst em Smoking History Never smoker (Never Smoked) 804404273 SNOMED CT Sex Female Vital Signs Vital Sign Value Unit [place] Value [place] Unit Date/Time Recent/Initial? Code Code System Body Mass Index 44.01 kg/m2 04/03/2025 22:54 Initial 03806 -5 LOINC Systolic Blood Pressure 176 mm[Hg] 04/03/2025 22:54 Initial 8480- 6 LOINC Diastolic Blood Pressure 81 mm[Hg] 04/03/2025 22:54 Initial 8462- 4 LOINC Body Surface Area 2.45 m2 04/03/2025 22:54 Initial 3140- 1 LOINC Height 170.180 0 cm 67.00 in 04/03/2025 22:54 Initial 8302- 2 LOINC O2 Saturation 95 % 2024 22:54 Initial 70030 -5 LOINC Pulse 82.0 /min 04/03/2025 22:54 Initial 8867- 4 LOINC Respiration 20 /min 04/03/20 22:54 Initial 9279- 1 [facility] Temperature 36.8 Alexandrea 98.2 F 04/03/20 22:54 Initial 8310- 5 [facility] Weight 127.46 kg 281.00 lbs 04/03/2025 22:54 Initial 07142 -7 [facility] Medications Medication Start Date End Date Route Frequency Dose Code Code System Medication Instructions Home Meds Zofran 4MG Oral Tablet 05/03/2025 Unknown ORAL EVERY 6 HOURS 1 TABLET 904498 RxNorm TAKE 1 TABLET ORAL EVERY 6 [...] Code Code System CHRONIC NECK PAIN active 206242723496 7 SNOMED-CT DISORDER OF ROTATOR CUFF active 508933489 SNOMED-CT SPRAIN OF LEFT SHOULDER active 24035370229671243 SNOMED-CT CHRONIC BACK PAIN active 720668690 SN OMED-CT CHRONIC MIGRAINE active 386801545 SNO MED-CT DIABETES active 51192184 SNOMED-CT GASTROPARESES active 904421888 SNOMED -CT ERIKA CELL NEOPLASM active 744908801 SNOMED-CT HYPERTENSION active 66141897 SNOMED- CT DRUG SEEKING BEHAVIOR active 66947614 SNOMED-CT MALINGERING active 00395670 SNOMED-C 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 10/24/2024 resolved 71055980 SNOMED-CT Allergies and Adverse Reactions Allergy Substance Reaction Severity Start Date Concern Status Code Code System PROCHLORPERAZINE go crazy (SNOMED-CT: null) Severe Active 8704 RxNorm ISOSORBIDE MONONITRATE SOB, anxiety (SNOMED-CT: null) Active 84705 RxNorm CLARITHROMYCIN Vomiting (SNOMED-CT: 209053323) Severe Active 13952 RxNorm BENADRYL went crazy (SNOMED-CT: null) Severe Active 306447 RxNorm IMITREX Tachycardia (SNOMED-CT: 8735968) Moderate Active 048558 RxNorm Plan of Treatment No Data Found Encounters Encounter Diagnosis Start Date Code Code Sys tem Migraine, unspecified, not i ntractable, without status migrainosus 04/03/2025 SNOMED-CT Personal Care Team Section
--- OUTSIDE RECORDS SUMMARY | 2025-08-11 14:02 | XMS_ITS | Encounter Summary ---
Author Organization [facility] Address [address] [place] [address] Care Team Providers Care Emergency Medcl Emt Name Role Phone Hero Bearden MD Unavailable Ce Villalobos MD Unavailable Brissa Tijerina MD Primary Care Provider + Reason for Visit * Reason Onset Date Comments Preprocedure Call 01/18/2025 Spoke with pat ient-she has an appointment on 01/[address] Christy office for H&P. 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
--- OUTSIDE RECORDS SUMMARY | 2025-08-11 14:02 | XMS_ITS ---
Author Organization Unknown Address [address] [place] [address] [phone] Phone Care Team Providers Care Life Sciences Teacher Name Role Phone DEBORAH GARCIA Registered Nurse Unavailable YRN ZEPEDA Attending Unavailable PINKY Kyle Primary Unavailable Social History Type Status Start Date End Date Code Code Syst em Smoking History Never smoker (Never Smoked) 450746473 SNOMED CT Sex Female Vital Signs Vital Sign Value Unit [place] Value [place] Unit Date/Time Recent/Initial? Code Code System Systolic Blood Pressure 117 mm[Hg] 01/06/2025 17:55 Most Recent 8480-6 LOINC Diastolic Blood Pressure 84 mm[Hg] 01/06/2025 17:55 Most Recent 8462-4 LOINC Systolic Blood Pressure 145 mm[Hg] 01/06/2025 17:19 Initial 8480-6 LOINC Diastolic Blood Pressure 75 mm[Hg] 01/06/2025 17:19 Initial 8462-4 LOINC O2 Saturation 98 % 2024 17:55 Most Recent 14209- 5 LOINC O2 Saturation 94 % 2024 17:19 Initial 52365- 5 LOINC Pulse 63.0 /min 01/06/2025 17:55 [...] application Patch, Extended Release 11/02/2024 02/28/2025 1 7063291 RxNorm 1 patch daily Zofran 4MG Oral Tablet 05/03/2025 Unknown ORAL EVERY 6 HOURS 1 TABLET 772731 RxNorm TAKE 1 TABLET ORAL EVERY 6 [...] Code Code System CHRONIC NECK PAIN active 525505962546 7 SNOMED-CT DISORDER OF ROTATOR CUFF active 744656280 SNOMED-CT SPRAIN OF LEFT SHOULDER active 71540073348287714 SNOMED-CT CHRONIC BACK PAIN active 726237931 SN OMED-CT CHRONIC MIGRAINE active 834363205 SNO MED-CT DIABETES active 65287448 SNOMED-CT GASTROPARESES active 877862369 SNOMED -CT ERIKA CELL NEOPLASM active 436617377 SNOMED-CT HYPERTENSION active 48201968 SNOMED- CT DRUG SEEKING BEHAVIOR active 59349431 SNOMED-CT MALINGERING active 64937244 SNOMED-C 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 10/24/2024 resolved 46590159 SNOMED-CT Allergies and Adverse Reactions Allergy Substance Reaction Severity Start Date Concern Status Code Code System PROCHLORPERAZINE go crazy (SNOMED-CT: null) Severe Active 8704 RxNorm ISOSORBIDE MONONITRATE SOB, anxiety (SNOMED-CT: null) Active 29415 RxNorm CLARITHROMYCIN Vomiting (SNOMED-CT: 738742257) Severe Active 08531 RxNorm BENADRYL went crazy (SNOMED-CT: null) Severe Active 998136 RxNorm IMITREX Tachycardia (SNOMED-CT: 6782509) Moderate Active 063547 RxNorm Plan of Treatment No Data Found Encounters Encounter Diagnosis Start Date Code Code Sys tem Neck pain 01/06/2025 21046635 SNOMED-CT Personal Care Team Section
--- OUTSIDE RECORDS SUMMARY | 2025-08-11 14:03 | XMS_ITS ---
Author Organization Unknown Address [address] [place] [address] [phone] Phone Care Team Providers Care Tangled Yarn Worker Name Role Phone AYUSH SAM Registered Nurse Unavailable PREMA Kyle Attending Unavailable PINKY Kyle Primary Unavailable Results CT BRAIN HEAD WO CONTRAST - Completed: 01/22/2025 18:52 LOINC: L [address] [address] Name: TERE ALANIS Exam: CT BRAIN HEAD WO CONTRAST Exam Date: 01/22/2025 : 1970 Acc#: [id number] Ordering: SHADI BOWMAN Referrer: BK VANCE EXAM [...] Noé Christensen M.D. KH: ROBERTH Report ID: [id number] Reading Location: [id number] Social History Type Status Start Date End Date Code Code Syst em Smoking History Never smoker (Never Smoked) 443751254 SNOMED CT Sex Female Vital Signs Vital Sign Value Unit [place] Value [place] Unit Date/Time Recent/Initial? Code Code System Body Mass Index 44.64 kg/m2 01/22/2025 18:18 Initial 33063 -5 LOINC Systolic Blood Pressure 144 mm[Hg] [...] Saturation 95 % 2024 20:45 Most Recent 18470 -5 LOINC O2 Saturation 96 % 2024 18:18 Initial 06713 -5 LOINC Pulse 66.0 /min 01/22/2025 20:45 Most Recent 8867- 4 LOINC Pulse 64.0 /min 01/22/2025 18:18 Initial 8867- 4 LOINC Respiration 17 /min 01/23/20 25 20:45 Most Recent 9279- 1 LOINC Respiration 18 /min 01/23/20 25 18:18 Initial 9279- 1 LOINC Temperature 36.8 Alexandrea 98.3 F 01/23/20 25 18:18 Initial 8310- 5 LOINC Weight 129.27 kg 285.00 lbs 01/22/2025 18:18 Initial 60581 -7 LOINC Medications Medication Start Date End Date Route Frequency Dose Code Code System Medication Instructions Home Meds Lidoderm 5% Topical application Patch, Extended Release 11/02/2024 02/28/2025 1 8337315 RxNorm 1 patch daily Zofran 4MG Oral Tablet 05/03/2025 Unknown ORAL EVERY 6 HOURS 1 TABLET 460687 RxNorm TAKE 1 TABLET ORAL EVERY 6 [...] Code Code System CHRONIC NECK PAIN active 064513736185 7 SNOMED-CT DISORDER OF ROTATOR CUFF active 049775167 SNOMED-CT SPRAIN OF LEFT SHOULDER active 54435661292782824 SNOMED-CT CHRONIC BACK PAIN active 759089441 SN OMED-CT CHRONIC MIGRAINE active 544037723 SNO MED-CT DIABETES active 24620455 SNOMED-CT GASTROPARESES active 578902588 SNOMED -CT ERIKA CELL NEOPLASM active 480067982 SNOMED-CT HYPERTENSION active 91271190 SNOMED- CT DRUG SEEKING BEHAVIOR active 69209323 SNOMED-CT MALINGERING active 91461131 SNOMED-C 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 10/24/2024 resolved 09712760 SNOMED-CT Allergies and Adverse Reactions Allergy Substance Reaction Severity Start Date Concern Status Code Code System PROCHLORPERAZINE go crazy (SNOMED-CT: null) Severe Active 8704 RxNorm ISOSORBIDE MONONITRATE SOB, anxiety (SNOMED-CT: null) Active 23251 RxNorm CLARITHROMYCIN Vomiting (SNOMED-CT: 103788632) Severe Active 12789 RxNorm BENADRYL went crazy (SNOMED-CT: null) Severe Active 339148 RxNorm IMITREX Tachycardia (SNOMED-CT: 3867954) Moderate Active 393318 RxNorm Plan of Treatment No Data Found Encounters Encounter Diagnosis Start Date Code Code Sys tem Migraine 01/22/2025 60858566 SNOMED-CT Personal Care Team Section Discharge Summary Notes CANDY Spring 01/22/2025 20:58 filter failed to render (id: '${filterNoteHistoryId}') filter failed to render (id: '${filterNoteHistoryId}') filter failed to render (id: '${filterNoteHistoryId}') ED Nursing Discharge Disposition Checklist Stop times completed in order chronology for all IV fluids / IVPB medications I & O's entered in vital signs Discharge [ x ] Home [ ] USP [ ] Chcf [ ] Left AMA [ ] AMA [...]
--- OUTSIDE RECORDS SUMMARY | 2025-08-11 14:03 | XMS_ITS | Encounter Summary ---
Author Organization [facility] Address [address] [place] [address] Care Team Providers Care Keg Varnisher Name Role Phone Hero Bearden MD Unavailable Ce Villalobos MD Unavailable Brissa Tijerina MD Primary Care Provider + Reason for Visit * Reason Onset Date Comments Preprocedure Call 01/16/2025 Net Web Application Developer spoke w jessica Landeros and reiterated that we need an H&P within 30 days of 01/20/25 MRI with anesthesia appt. Leti to call PCP for appt. Net Web Application Developer also reviewed anesthesia instructions: NPO after midnight, arrival time 0700, bring a local combination truck driver, and reviewed medications to hold. All questions answered and Leti verbalized understanding. Encounter Details Date Type Department Care Team (Latest Contact Info) Description 01/16/2025 Pre-Procedure Call [facility] Interventional Radiology [address] [place] [address] Stella Castillo, RN Preprocedure Call (Net Web Application Developer spoke with Leti and reiterated that we need an H&P within 30 days of 01/20/25 MRI with anesthesia appt. Leti to call PCP for appt. Net Web Application Developer also reviewed anesthesia instructions: NPO after midnight, arrival time 0700, bring a local combination truck driver, and reviewed medications to hold. All [...] Recorded Patient Health Questionnaire-2 Score 0 10/31/2022 [facility]ational Stress Questionnaire Answer [...] place to sleep or slept in a custodial (including now)? Yes 05/08/2023 Comments No Sex and Gender Information Value Date Recorded Sex Assigned at Female 09/30/2024 10:51 PM FAMILY ADVOCATE Legal Sex Female 7:02 PM CDT Gender [...] on filedocumented in this encounter Care Teams Keg Varnisher Relationship Specialty Start Date End Date Brissa Tijerina MD [address] [place] [address] PCP - General FAMILY PRACTICE 11/03/24 Hero Bearden MD Business Owner/Engineer OBGYN 04/04/22 Ce Villalobos MD [address] [place] [address] [place] Dough Mixing Machine Operator CARDIOVASCULAR DISEASE 07/18/22 documented as of this encounter
--- OUTSIDE RECORDS SUMMARY | 2025-08-11 14:03 | XMS_ITS ---
Author Organization Unknown Address [address] [place] [address] [phone] Phone Care Team Providers Care Floor Service Worker Spring Name Role Phone COLBY HSU ROBERT Attending Unavailable CARRILLO COATS Primary Unavailable Social History Type Status Start Date End Date Code Code Syst em Smoking History Never smoker (Never Smoked) 821974915 SNOMED CT Sex Female Medications Medication Start Date End Date Route Frequency Dose Code Code System Medication Instructions Home Meds Zofran 4MG Oral Tablet 05/03/2025 Unknown ORAL EVERY 6 HOURS 1 TABLET 537314 RxNorm TAKE 1 TABLET ORAL EVERY 6 [...] Code Code System CHRONIC NECK PAIN active 402269732752 7 SNOMED-CT DISORDER OF ROTATOR CUFF active 133690642 SNOMED-CT SPRAIN OF LEFT SHOULDER active 17712396443731499 SNOMED-CT CHRONIC BACK PAIN active 008488834 SN OMED-CT CHRONIC MIGRAINE active 013477869 SNO MED-CT DIABETES active 86768396 SNOMED-CT GASTROPARESES active 486630272 SNOMED -CT ERIKA CELL NEOPLASM active 114096488 SNOMED-CT HYPERTENSION active 25978037 SNOMED- CT DRUG SEEKING BEHAVIOR active 14633741 SNOMED-CT MALINGERING active 31889628 SNOMED-C 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 10/24/2024 resolved 36229289 SNOMED-CT Allergies and Adverse Reactions Allergy Substance Reaction Severity Start Date Concern Status Code Code System PROCHLORPERAZINE go crazy (SNOMED-CT: null) Severe Active 8704 RxNorm ISOSORBIDE MONONITRATE SOB, anxiety (SNOMED-CT: null) Active 85173 RxNorm CLARITHROMYCIN Vomiting (SNOMED-CT: 923250689) Severe Active RxNorm BENADRYL went crazy (SNOMED-CT: null) Severe Active 20340118 RxNorm IMITREX Tachycardia (SNOMED-CT: 3055563) Moderate Active 957504 RxNorm Plan of Treatment No Data Found Encounters Encounter Diagnosis Start Date Code Code Sys tem Migraine, unspecified, intra ctable, without status migrainosus 06/20/2025 [place] Personal Care Team Section
--- OUTSIDE RECORDS SUMMARY | 2025-08-11 14:03 | XMS_ITS ---
Author Organization Unknown Address [address] [place] [address] [phone] Phone Care Team Providers Care Concrete Laborer Name Role Phone YRN ZEPEDA Attending Unavailable PINKY Kyle Primary Unavailable Social History Type Status Start Date End Date Code Code Syst em Smoking History Never smoker (Never Smoked) 936324993 SNOMED CT Sex Female Vital Signs Vital Sign Value Unit [place] Value [place] Unit Date/Time Recent/Initial? Code Code System Body Mass Index 43.85 kg/m2 12/21/2024 16:30 Initial 10107 -5 LOINC Systolic Blood Pressure 156 mm[Hg] [...] Saturation 96 % 2024 18:20 Most Recent 09325 -5 LOINC O2 Saturation 96 % 2024 16:30 Initial 50290 -5 LOINC Pulse 85.0 /min 12/21/2024 18:20 Most Recent 8867- 4 LOINC Pulse 60.0 /min 12/21/2024 16:30 Initial 8867- 4 LOINC Respiration 20 /min 12/22/19 25 18:20 Most Recent 9279- 1 LOINC Respiration 20 /min 12/22/19 16:30 Initial 9279- 1 [facility] Temperature 36.8 Alexandrea 98.2 F 12/22/19 16:30 Initial 8310- 5 [facility] Weight 127.01 kg 280.00 lbs 12/21/2024 16:30 Initial 32819 -7 [facility] Medications Medication Start Date End Date Route Frequency Dose Code Code System Medication Instructions Home Meds Lidoderm 5% Topical application Patch, Extended Release 11/02/2024 02/28/2025 1 4383413 RxNorm 1 patch daily Zofran 4MG Oral Tablet 05/03/2025 Unknown ORAL EVERY 6 HOURS 1 TABLET 807025 RxNorm TAKE 1 TABLET ORAL EVERY 6 [...] Code Code System CHRONIC NECK PAIN active 004631060548 7 SNOMED-CT DISORDER OF ROTATOR CUFF active 017519792 SNOMED-CT SPRAIN OF LEFT SHOULDER active 82352738691643374 SNOMED-CT CHRONIC BACK PAIN active 384896821 SN OMED-CT CHRONIC MIGRAINE active 230868861 SNO MED-CT DIABETES active 19374356 SNOMED-CT GASTROPARESES active 059321763 SNOMED -CT ERIKA CELL NEOPLASM active 243835377 SNOMED-CT HYPERTENSION active 70326370 SNOMED- CT DRUG SEEKING BEHAVIOR active 12139355 SNOMED-CT MALINGERING active 07617848 SNOMED-C 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 10/24/2024 resolved 35807132 SNOMED-CT Allergies and Adverse Reactions Allergy Substance Reaction Severity Start Date Concern Status Code Code System PROCHLORPERAZINE go crazy (SNOMED-CT: null) Severe Active 8704 RxNorm ISOSORBIDE MONONITRATE SOB, anxiety (SNOMED-CT: null) Active 69721 RxNorm CLARITHROMYCIN Vomiting (SNOMED-CT: 989392146) Severe Active 34888 RxNorm BENADRYL went crazy (SNOMED-CT: null) Severe Active 20340118 RxNorm IMITREX Tachycardia (SNOMED-CT: 0495085) Moderate Active 199222 RxNorm Plan of Treatment No Data Found Encounters Encounter Diagnosis Start Date Code Code Sys tem 12/21/2024 [id number] SNOMED-CT Personal Care Team Section
--- OUTSIDE RECORDS SUMMARY | 2025-08-11 14:03 | XMS_ITS ---
Author Organization Unknown Address [address] [place] [address] [phone] Phone Care Team Providers Care Director Regulatory Compliance Name Role Phone YRN ZEPEDA Attending Unavailable CARRILLO COATS Primary Unavailable Social History Type Status Start Date End Date Code Code Syst em Smoking History Never smoker (Never Smoked) 617887380 SNOMED CT Sex Female Vital Signs Vital Sign Value Unit [place] Value [place] Unit Date/Time Recent/Initial? Code Code System Body Mass Index 43.85 kg/m2 10/12/2024 21:32 Initial 26839 -5 LOINC Systolic Blood Pressure 136 mm[Hg] [...] Saturation 97 % 2024 01:58 Most Recent 91697 -5 LOINC O2 Saturation 95 % 2024 21:32 Initial 24466 -5 LOINC Pulse 70.0 /min 10/13/2024 01:58 Most Recent 8867- 4 LOINC Pulse 75.0 /min 10/12/2024 21:32 Initial 8867- 4 LOINC Respiration 16 /min 10/13/19 01:58 Most Recent 9279- 1 LOINC Respiration 17 /min 10/12/19 21:32 Initial 9279- 1 [facility] Temperature 36.9 Alexandrea 98.5 F 10/12/19 21:32 Initial 8310- 5 [facility] Weight 127.01 kg 280.00 lbs 10/12/2024 21:32 Initial 29396 -7 [facility] Medications Medication Start Date End Date Route Frequency Dose Code Code System Medication Instructions Home Meds Lidoderm 5% Topical application Patch, Extended Release 11/02/2024 02/28/2025 1 6566223 RxNorm 1 patch daily Zofran 4MG Oral Tablet 05/03/2025 Unknown ORAL EVERY 6 HOURS 1 TABLET 892753 RxNorm TAKE 1 TABLET ORAL EVERY 6 [...] Code Code System CHRONIC NECK PAIN active 528451852095 7 SNOMED-CT DISORDER OF ROTATOR CUFF active 787959490 SNOMED-CT SPRAIN OF LEFT SHOULDER active 24270886678748094 SNOMED-CT CHRONIC BACK PAIN active 618035491 SN OMED-CT CHRONIC MIGRAINE active 503010123 SNO MED-CT DIABETES active 19637596 SNOMED-CT GASTROPARESES active 168877149 SNOMED -CT ERIKA CELL NEOPLASM active 555852596 SNOMED-CT HYPERTENSION active 35741350 SNOMED- CT DRUG SEEKING BEHAVIOR active 97761090 SNOMED-CT MALINGERING active 61266745 SNOMED-C 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 10/24/2024 resolved 35408103 SNOMED-CT Allergies and Adverse Reactions Allergy Substance Reaction Severity Start Date Concern Status Code Code System PROCHLORPERAZINE go crazy (SNOMED-CT: null) Severe Active 8704 RxNorm ISOSORBIDE MONONITRATE SOB, anxiety (SNOMED-CT: null) Active 20808 RxNorm CLARITHROMYCIN Vomiting (SNOMED-CT: 549224498) Severe Active 44463 RxNorm BENADRYL went crazy (SNOMED-CT: null) Severe Active 20340118 RxNorm IMITREX Tachycardia (SNOMED-CT: 7746618) Moderate Active 21760916 RxNorm Plan of Treatment No Data Found Encounters Encounter Diagnosis Start Date Code Code Sys tem Backache 10/12/2024 423170297 Swarm64OMED-CT Personal Care Team Section
--- OUTSIDE RECORDS SUMMARY | 2025-08-11 14:03 | XMS_ITS ---
Author Organization Unknown Address [address] [place] [address] [phone] Phone Care Team Providers Care Doctor Of Nurse Anesthesia Name Role Phone COLBY SHADI JONES Attending Unavailable CARRILLO COATS Primary Unavailable Social History Type Status Start Date End Date Code Code Syst em Smoking History Never smoker (Never Smoked) 352876879 SNOMED CT Sex Female Vital Signs Vital Sign Value Unit [place] Value [place] Unit Date/Time Recent/Initial? Code Code System Body Mass Index 41.66 kg/m2 05/31/2025 19:33 Initial 42737 -5 LOINC Systolic Blood Pressure 135 mm[Hg] [...] Saturation 95 % 2024 20:43 Most Recent 34738 -5 LOINC O2 Saturation 97 % 2024 19:33 Initial 84052 -5 LOINC Pulse 85.0 /min 05/31/2025 20:43 Most Recent 8867- 4 LOINC Pulse 92.0 /min 05/31/2025 19:33 Initial 8867- 4 LOINC Respiration 17 /min 05/31/20 20:43 Most Recent 9279- 1 LOINC Respiration 20 /min 05/31/20 19:33 Initial 9279- 1 [facility] Temperature 36.8 Alexandrea 98.2 F 05/31/20 19:33 Initial 8310- 5 [facility] Weight 120.66 kg 266.00 lbs 05/31/2025 19:33 Initial 08110 -7 [facility] Medications Medication Start Date End Date Route Frequency Dose Code Code System Medication Instructions Home Meds Zofran 4MG Oral Tablet 05/03/2025 Unknown ORAL EVERY 6 HOURS 1 TABLET 665656 RxNorm TAKE 1 TABLET ORAL EVERY 6 [...] Code Code System CHRONIC NECK PAIN active 313190439254 7 SNOMED-CT DISORDER OF ROTATOR CUFF active 253458670 SNOMED-CT SPRAIN OF LEFT SHOULDER active 74824030415717486 SNOMED-CT CHRONIC BACK PAIN active 164105522 SN OMED-CT CHRONIC MIGRAINE active 781570251 SNO MED-CT DIABETES active 07284985 SNOMED-CT GASTROPARESES active 323957326 SNOMED -CT ERIKA CELL NEOPLASM active 303625573 SNOMED-CT HYPERTENSION active 85860246 SNOMED- CT DRUG SEEKING BEHAVIOR active 87675962 SNOMED-CT MALINGERING active 23038642 SNOMED-C 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 10/24/2024 resolved 67707546 SNOMED-CT Allergies and Adverse Reactions Allergy Substance Reaction Severity Start Date Concern Status Code Code System PROCHLORPERAZINE go crazy (SNOMED-CT: null) Severe Active 8704 RxNorm ISOSORBIDE MONONITRATE SOB, anxiety (SNOMED-CT: null) Active 76617 RxNorm CLARITHROMYCIN Vomiting (SNOMED-CT: 713359098) Severe Active 06323 RxNorm BENADRYL went crazy (SNOMED-CT: null) Severe Active 401502 RxNorm IMITREX Tachycardia (SNOMED-CT: 2680402) Moderate Active 828990 RxNorm Plan of Treatment No Data Found Encounters Encounter Diagnosis Start Date Code Code Sys tem Migraine, unspecified, not i ntractable, without status migrainosus 05/31/2025 SNOMED-CT Personal Care Team Section
--- OUTSIDE RECORDS SUMMARY | 2025-08-11 14:03 | XMS_ITS | Encounter Summary ---
Author Organization [facility] Address [address] [place] [address] Care Team Providers Care Practice Coordinator Name Role Phone Hero Bearden MD Unavailable Adele Lagos MD Primary Care Provider [phone] Ce Villalobos MD Unavailable Brissa Tijerina MD Primary Care Provider + Encounter Details Date Type Department Care Team (Late st Contact Info) Description 04/23/2023 Hospital Follow-up Call [facility] Cardiovascular Care Unit [address] [place] [address] Kalyn New RN Social History [...] Recorded Patient Health Questionnaire-2 Score 0 10/31/2022 [facility] [place] of Occupat ional Health - Occupational Stress [...] place to sleep or slept in a usp (including now)? Yes 04/18/2023 Comments No Sex and Gender Information Value Date Recorded Sex Assigned at Female 09/30/2024 10:51 PM PRODUCT MARKETING MANAGER Legal Sex Female 7:02 PM CDT Gender [...] on filedocumented in this encounter Care Teams Practice Coordinator Relationship Specialty Start Date End Date Adele Lagos MD [address] [place] [address] PCP - General INTERNAL MEDICINE 06/16/22 11/02/24 Brissa Tijerina MD [address] [place] [address] PCP - General FAMILY PRACTICE 11/03/24 Hero Bearden MD Gasoline Locomotive Crane Operator OBGYN 04/04/22 Ce Villalobos MD [address] [place] [address] [place] Assistant Commissioner CARDIOVASCULAR DISEASE 07/18/22 documented as of this encounter
--- OUTSIDE RECORDS SUMMARY | 2025-08-11 14:03 | XMS_ITS | Encounter Summary ---
Author Organization [facility] Address [address] [place] [address] Care Team Providers Care Hides Inspector Name Role Phone Yaneth Lagos MD Primary Care Provider [phone] Hero Bearden MD Unavailable Adele Lagos MD Primary Care Provider [phone] Ce Villalobos MD Unavailable Brissa Tijerina MD Primary Care Provider + Encounter Details Date Type Department Care Team (Late st Contact Info) Description 02/19/2019 Abstract SFL CONVERSION [address] [place] [address] , Generic Conversion, Social History Tobacco Use Types Packs/Day Years Used Date Smoking Tobacco: Never Smokeless Tobacco: Never Alcohol Use Standard Drinks/Week Comments No 0 (1 standard drink = 0.6 oz pur e alcohol) Comments Unknown Sex and Gender Information Value Date Recorded Sex Assigned at Female 09/30/2024 10:51 PM LEAD LAYING AND GLUING MACHINE OPERATOR Legal Sex Female 7:02 PM CDT Gender Identity Not on file Sexual Orientation Not on file documented as of this encounter Plan of Treatment Not on file documented as of this encounter Visit Diagnoses Not on filedocumented in this encounter Care Teams Hides Inspector Relationship Specialty Start Date End Date Yaneth Lagos MD [address] [place] [phone] PCP - General FAMILY PRACTICE 09/17/19 06/15/22 Adele Lagos MD [address] [place] [address] PCP - General INTERNAL MEDICINE 06/16/22 11/02/24 Brissa Tijerina MD [address] [place] [address] PCP - General FAMILY PRACTICE 11/03/24 Hero Bearden MD [address] [phone] Planer Mill Grader OBGYN 04/04/22 Ce Villalobos MD [address] [place] [address] [place] Offal Separator CARDIOVASCULAR DISEASE 07/18/22 documented as of this encounter
--- OUTSIDE RECORDS SUMMARY | 2025-08-11 14:03 | XMS_ITS | Encounter Summary ---
Author Organization [facility] Address [address] [place] [address] Care Team Providers Care Sales Support Assistant Name Role Phone Hero Bearden MD Unavailable Ce Villalobos MD Unavailable Brissa Tijerina MD Primary Care Provider + Reason for Visit * Reason Onset Date Comments Preprocedure Call 01/13/2025 Frame Stylist spoke jojo Landeros about needing H&P within 30 days of MRI with anesthesia appt on 01/20/25. Leti to call PCP to schedule. Encounter Details Date Type Department Care Team (Latest Contact Info) Description 01/13/2025 Pre-Procedure Call [facility] Interventional Radiology [address] [place] [address] Stella Castillo, RN Preprocedure Call (Frame Stylist spoke with Leti about needing H&P within [...] Recorded Patient Health Questionnaire-2 Score 0 10/31/2022 [facility] [place] of Occupat ional Health - Occupational Stress [...] place to sleep or slept in a snf (including now)? Yes 05/08/2023 Comments No Sex and Gender Information Value Date Recorded Sex Assigned at Female 09/30/2024 10:51 PM EVALUATION MANAGER Legal Sex Female 7:02 PM CDT [...] on filedocumented in this encounter Care Teams Sales Support Assistant Relationship Specialty Start Date End Date Brissa Tijerina MD [address] [place] [address] PCP - General FAMILY PRACTICE 11/03/24 Hero Bearden MD Customer Support Professional OBGYN 04/04/22 Ce Villalobos MD [address] [place] [address] [place] Concrete Float Maker CARDIOVASCULAR DISEASE 07/18/22 documented as of this encounter
--- OUTSIDE RECORDS SUMMARY | 2025-08-11 14:03 | XMS_ITS | Clinical Summary ---
Author Organization [facility] Address [address] [place] [address] Care Team Providers Care Systems Operator Name Role Phone Prem Bearden MD [...] CDT - 06/13/2025 10:23 PM CDT Emergency [facility] Emergency Services [address] [place] [address] Edwardo Ken MD Back Pain Discharge Disposition: Home or Self Care (Routine Discharge) 06/13/2025 Travel from Last 3 Months Family History [...] Patient Health Questionnaire-2 Score 0 10/31/2022 [facility] of Occupat ional Health - Occupational Stress [...] place to sleep or slept in a assisted (including now)? Yes 05/08/2023 Comments No Sex and Gender Information Value Date Recorded Sex Assigned at Female 09/30/2024 10:51 PM SHADOW GRAPH WEIGHT OPERATOR Legal Sex Female 7:02 PM CDT [...] Procedure Name Priority Date/Time Associated Diagnosis Comments LIPID PANEL STAT 04/18/2023 6:36 AM CDT HEMOGLOBIN, GLYCOSYLATED STAT 04/17/2023 4:24 PM CDT HUMAN PAPILLOMAVIRUS, HIGH-RISK TYPES Routine 10/31/2022 12:00 PM SHADOW GRAPH WEIGHT OPERATOR CYTOPATH CERV/VAG THIN LAYER Routine 10/31/2022 9:01 AM SHADOW GRAPH WEIGHT OPERATOR Encounter for gynecological examination with Papanicolaou smear of cervix MAMMOGRAM GENERIC (SCAN ORDER) 11/17/2019 from Last 3 Months or Most Recently Relevant to Health Maintenance Results * (ABNORMAL) LIPID PANEL (04/18/2023 6:36 AM CDT) CHOLESTEROL 188 MG/DL 04/18/2023 7:32 AM CDT [facility] Comment:DESIRABLE: <200 TRIGLYCERIDES 219 MG/DL 04/18/2023 7:32 AM CDT [facility] Comment:200-499 HIGH HDL 35(L) >49 MG/DL 04/18/2023 7:32 AM CDT [facility] LDL (CALCULATED) 109 MG/DL 04/18/20 7:32 AM CDT [facility] Comment:100-129 NEAR OR ABOV E OPTIMAL VLDL CALCULATION 44 MG/DL 04/18/20 7:32 AM CDT [facility] Comment:REFERENCE RANGE NOT ESTABLISHED CHOL/HDL RATIO 5.4 04/18/2023 7:32 AM CDT [facility] Comment:REFERENCE RANGE NOT ESTABLISHED LDL/HDL 3.1 04/18/2023 7:32 AM CDT [facility] Comment:REFERENCE RANGE NOT ESTABLISHED NON HDL CHOLESTEROL 153 MG/DL 04/18/2023 7:32 AM CDT [facility] Comment:REFERENCE RANGE NOT ESTABLISHED 04/18/2023 6:36 AM CDT [facility] Final Res ult Performing Organization Address [facility]/ZIP Co de Phone Number [facility] [address] [place] [address], [place] [phone] * (ABNORMAL) HEMOGLOBIN, GLYCOSYLATED (04/17/2023 4:24 PM CDT) HGB A1C 7.2(H) <5.7 % 04/17/2023 5:28 PM CDT [facility] ESTIMATED AVG GLUCOSE 160(H) 74 - 114 MG/DL 04/17/2023 5:28 PM CDT [facility] 04/17/2023 4:24 PM CDT Yoshi Edwards PA-C LABORATORY Final Result Performing Organization Address [facility] Co de Phone Number [facility] [address] [place] [address], [place] [phone] * (ABNORMAL) HUMAN PAPILLOMAVIRUS, HIGH-RISK TYPES (10/31/2022 12:00 PM SHADOW GRAPH WEIGHT OPERATOR) SPEC DESCRIPTION CERVICAL/ ENDOCERVI SHWETA 11/03/2022 9:26 AM SHADOW GRAPH WEIGHT OPERATOR [facility] HPV DNA HIGH RISK POSITIVE( A) NEGATIVE 11/03/2022 5:31 PM SHADOW GRAPH WEIGHT OPERATOR [facility] Comment:SEE CYTOLOGY REPORT 10/31/2022 12:0 0 PM SHADOW GRAPH WEIGHT OPERATOR Prem Bearden MD PATHOLOGY/CYTOLOGY ORDERABLES Fi nal Result Performing Organization Address [facility] Co de Phone Number [facility] [address] [place] [address], * Cytopath Cerv/Vag Thin Layer (10/31/2022 9:01 AM SHADOW GRAPH WEIGHT OPERATOR) THIN PREP PAP [address] [address] Department of Pathology Pathology Report CERVICAL/VAGINAL PAP SMEAR REPORT Name: LETI WHITE Age: 1 1970 (Age: 52) [place] [facility] [place] F Collected Date: 10/31/2022 [facility] #: [id number] Date Received: 11/03/2022 Date Reported: 11/05/2022 Provider: [...] and 68. Electronically Signed Out CHRIS [place], [place] (ASCP) CLINICAL HISTORY Z01.419 SCREENING PAP TEST [...] is not effective in detecting cervical adenocarcinoma. [facility] () [facility] 10/31/2022 9:01 AM SHADOW GRAPH WEIGHT OPERATOR 11/03/2022 9:01 AM SHADOW GRAPH WEIGHT OPERATOR Comment:CERVICAL/ENDOCERVICA L us Prem Bearden MD PATHOLOGY/CYTOLOGY ORDERABLES Fi nal Result [facility] [address] [place] [phone], * MAMMOGRAM GENERIC (11/17/2019) Anatomical Region Laterality Modality Other 11/17/2019 Narrative 11/17/2019 Ordered by an unspecified provider. us Documents Scanned SCANNING Final Result from Last 3 Months or Most Recently Relevant to Health Maintenance [facility] [address] MEDICARE Advance Directives * Full Code (Latest Code Status on File) Date Activated Date Inactivated Comments 05/07/2023 9:34 PM 08/04/2023 5:02 PM * Full Code Date Activated Date Inactivated Comments 04/18/2023 1:16 AM 04/22/2023 2:48 PM Care Teams Systems Operator Relationship Specialty Start Date End Date Brissa Tijerina MD [address] [place] [address] PCP - General FAMILY PRACTICE 11/03/24 Prem Bearden MD Janitorial Maintenance Worker OBGYN 04/04/22 Ce Villalobos MD [address] [place] [address] [place] Boss CARDIOVASCULAR DISEASE 07/18/22
--- OUTSIDE RECORDS SUMMARY | 2025-08-11 14:04 | XMS_ITS ---
Author Organization Unknown Address [address] [place] [address] [phone] Phone Care Team Providers Care Concrete Rod Buster Name Role Phone PAPO RAMOS Registered Nurse Unavailable JULIETA SHAW Attending Unavailable CARRILLO COATS Primary Unavailable Social History Type Status Start Date End Date Code Code Syst em Smoking History Never smoker (Never Smoked) 743740099 SNOMED CT Sex Female Vital Signs Vital Sign Value Unit Towner Value Towner Unit Date/Time Recent/Initial? Code Code System Body Mass Index 43.07 kg/m2 05/23/2025 17:00 Initial 01484 -5 LOINC Systolic Blood Pressure 140 mm[Hg] [...] Saturation 97 % 2024 18:35 Most Recent 87503 -5 LOINC O2 Saturation 99 % 2024 17:00 Initial 43230 -5 LOINC Pulse 74.0 /min 05/23/2025 18:35 Most Recent 8867- 4 LOINC Pulse 79.0 /min 05/23/2025 17:00 Initial 8867- 4 LOINC Respiration 21 /min 05/23/20 18:35 Most Recent 9279- 1 LOINC Respiration 18 /min 05/23/20 17:00 Initial 9279- 1 [facility] Temperature 36.9 Alexandrea 98.4 F 05/23/20 17:00 Initial 8310- 5 [facility] Weight 124.74 kg 275.00 lbs 05/23/2025 17:00 Initial 40446 -7 [facility] Medications Medication Start Date End Date Route Frequency Dose Code Code System Medication Instructions Home Meds Zofran 4MG Oral Tablet 05/03/2025 Unknown ORAL EVERY 6 HOURS 1 TABLET 611662 RxNorm TAKE 1 TABLET ORAL EVERY 6 [...] Code Code System CHRONIC NECK PAIN active 406334972849 7 SNOMED-CT DISORDER OF ROTATOR CUFF active 509916155 SNOMED-CT SPRAIN OF LEFT SHOULDER active 42583989940022626 SNOMED-CT CHRONIC BACK PAIN active 600522144 SN OMED-CT CHRONIC MIGRAINE active 462019739 SNO MED-CT DIABETES active 29702914 SNOMED-CT GASTROPARESES active 917900463 SNOMED -CT ERIKA CELL NEOPLASM active 054439687 SNOMED-CT HYPERTENSION active 57811044 SNOMED- CT DRUG SEEKING BEHAVIOR active 66939375 SNOMED-CT MALINGERING active 10417594 SNOMED-C 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 10/24/2024 resolved 17866402 SNOMED-CT Allergies and Adverse Reactions Allergy Substance Reaction Severity Start Date Concern Status Code Code System PROCHLORPERAZINE go crazy (SNOMED-CT: null) Severe Active 8704 RxNorm ISOSORBIDE MONONITRATE SOB, anxiety (SNOMED-CT: null) Active 05547 RxNorm CLARITHROMYCIN Vomiting (SNOMED-CT: 266412071) Severe Active 88573 RxNorm BENADRYL went crazy (SNOMED-CT: null) Severe Active 20340118 RxNorm IMITREX Tachycardia (SNOMED-CT: 9254864) Moderate Active 386452 RxNorm Plan of Treatment No Data Found Encounters Encounter Diagnosis Start Date Code Code Sys tem Migraine 05/23/2025 25677413 SNOMED-CT Personal Care Team Section
--- OUTSIDE RECORDS SUMMARY | 2025-08-11 14:04 | XMS_ITS | Encounter Summary ---
Author Organization [facility] Address [address] [place] [address] Care Team Providers Care Nutrition Specialist Name Role Phone Yaneth Lagos MD Primary Care Provider [phone] Yaneth Lagos MD Primary Care Provider [phone] Hero Bearden MD Unavailable Adele Lagos MD Primary Care Provider [phone] Ce Villalobos MD Unavailable Brissa Tijerina MD Primary Care Provider + Encounter Details Date Type Department Care Team (Late st Contact Info) Description 11/28/2017 Abstract [facility] [address] [place] [address] , Generic MD Racheal Social History Tobacco Use Types Packs/Day Years Used Date Smoking Tobacco: Never Assessed Comments Unknown Sex and Gender Information Value Date Recorded Sex Assigned at Female 09/30/2024 10:51 PM TECHNOLOGY INSTRUCTOR Legal Sex Female 7:02 PM CDT Gender Identity Not on file Sexual Orientation Not on file documented as of this encounter Plan of Treatment Not on file documented as of this encounter Visit Diagnoses Not on filedocumented in this encounter Care Teams Nutrition Specialist Relationship Specialty Start Date End Date Yaneth Lagos MD [address] [address] PCP - General 03/22/17 04/07/18 Yaneth Lagos MD [address] [facility] [address] [place] [address] PCP - General FAMILY PRACTICE 09/17/19 06/15/22 Adele Lagos MD [address] [place] [address] PCP - General INTERNAL MEDICINE 06/16/22 11/02/24 Brissa Tijerina MD [address] [place] [address] PCP - General FAMILY PRACTICE 11/03/24 Hero Bearden MD [address] [facility] [address] [place] [address] Outside Rigger OBGYN 04/04/22 Ce Villalobos MD [address] [place] [address] [place] Occupational Health Physiotherapist CARDIOVASCULAR DISEASE 07/18/22 documented as of this encounter
--- OUTSIDE RECORDS SUMMARY | 2025-08-11 14:04 | XMS_ITS ---
Author Organization Unknown Address [address] [place] [address] [phone] Phone Care Team Providers Care Master Cook Name Role Phone ELAINE ATWOOD Registered Nurse Unavailable COLBY JONES Attending Unavailable CARRILLO COATS Primary Unavailable Results XR SHOULDER COMPLETE 2 OR GR EATER VWS LT - Completed: 12/06/2024 21:41 LOINC: [address] [address] Name: TERE ALANIS Exam: XR SHOULDER COMPLETE 2 OR GREATER VWS LT Exam Date: 12/06/2024 : 1970 Acc#: [id number] Ordering: SHADI BOWMAN Referrer: PAULY VIZCAINO EXAM [...] Emperatriz Horne M.D. AT: AT Report ID: [id number] Reading Location: [id number] Social History Type Status Start Date End Date Code Code Syst em Smoking History Never smoker (Never Smoked) 847337029 SNOMED CT Sex Female Vital Signs Vital Sign Value Unit Holt Value Holt Unit Date/Time Recent/Initial? Code Code System Body Mass Index 44.32 kg/m2 12/06/2024 19:57 Initial 65996 -5 LOINC Systolic Blood Pressure 172 mm[Hg] [...] Saturation 97 % 2024 22:40 Most Recent 12376 -5 LOINC O2 Saturation 97 % 2024 19:57 Initial 06434 -5 LOINC Pulse 84.0 /min 12/06/2024 22:40 Most Recent 8867- 4 LOINC Pulse 80.0 /min 12/06/2024 19:57 Initial 8867- 4 LOINC Respiration 20 /min 12/07/19 22:40 Most Recent 9279- 1 LOINC Respiration 20 /min 12/07/19 19:57 Initial 9279- 1 LOINC Temperature 36.4 Alexandrea 97.6 F 12/07/19 19:57 Initial 8310- 5 LOINC Weight 128.37 kg 283.00 lbs 12/06/2024 19:57 Initial 88281 -7 LOINC Medications Medication Start Date End Date Route Frequency Dose Code Code System Medication Instructions Home Meds Lidoderm 5% Topical application Patch, Extended Release 11/02/2024 02/28/2025 1 5714304 RxNorm 1 patch daily Zofran 4MG Oral Tablet 05/03/2025 Unknown ORAL EVERY 6 HOURS 1 TABLET 275416 RxNorm TAKE 1 TABLET ORAL EVERY 6 [...] Code Code System CHRONIC NECK PAIN active 661350474195 7 SNOMED-CT DISORDER OF ROTATOR CUFF active 169127005 SNOMED-CT SPRAIN OF LEFT SHOULDER active 07224952712314979 SNOMED-CT CHRONIC BACK PAIN active 094939477 SN OMED-CT CHRONIC MIGRAINE active 295519683 SNO MED-CT DIABETES active 69252873 SNOMED-CT GASTROPARESES active 274532853 SNOMED -CT ERIKA CELL NEOPLASM active 010792859 SNOMED-CT HYPERTENSION active 88934623 SNOMED- CT DRUG SEEKING BEHAVIOR active 42126966 SNOMED-CT MALINGERING active 80372303 SNOMED-C 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 10/24/2024 resolved 93930896 SNOMED-CT Allergies and Adverse Reactions Allergy Substance Reaction Severity Start Date Concern Status Code Code System PROCHLORPERAZINE go crazy (SNOMED-CT: null) Severe Active 8704 RxNorm ISOSORBIDE MONONITRATE SOB, anxiety (SNOMED-CT: null) Active 25896 RxNorm CLARITHROMYCIN Vomiting (SNOMED-CT: 597636419) Severe Active 52111 RxNorm BENADRYL went crazy (SNOMED-CT: null) Severe Active 763751 RxNorm IMITREX Tachycardia (SNOMED-CT: 1045495) Moderate Active 726263 RxNorm Plan of Treatment No Data Found Encounters Encounter Diagnosis Start Date Code Code Sys tem 12/06/2024 [id number] SNOMED-CT Personal Care Team Section
--- OUTSIDE RECORDS SUMMARY | 2025-08-11 14:04 | XMS_ITS ---
Author Organization Unknown Address [address] [place] [address] [phone] Phone Care Team Providers Care Intranet Developer Name Role Phone KEHINDE HERON Hussein Attending Unavailable CARRILLO COATS Primary Unavailable Social History Type Status Start Date End Date Code Code Syst em Smoking History Never smoker (Never Smoked) 265305851 SNOMED CT Sex Female Vital Signs Vital Sign Value Unit Hammond Value Hammond Unit Date/Time Recent/Initial? Code Code System Body Mass Index 42.69 kg/m2 06/19/2025 20:12 Initial 71524 -5 LOINC Systolic Blood Pressure 165 mm[Hg] [...] Saturation 95 % 2024 21:41 Most Recent 80550 -5 LOINC O2 Saturation 98 % 2024 01:29 Initial 14471 -5 LOINC Pulse 88.0 /min 06/19/2025 21:41 Most Recent 8867- 4 LOINC Pulse 88.0 /min 06/19/2025 01:29 Initial 8867- 4 LOINC Respiration 22 /min 06/19/20 21:41 Most Recent 9279- 1 LOINC Respiration 20 /min 06/19/20 01:29 Initial 9279- 1 [facility] Temperature 36.8 Alexandrea 98.3 F 06/19/20 20:12 Initial 8310- 5 [facility] Weight 123.65 kg 272.60 lbs 06/19/2025 20:12 Initial 32806 -7 [facility] Medications Medication Start Date End Date Route Frequency Dose Code Code System Medication Instructions Home Meds Zofran 4MG Oral Tablet 05/03/2025 Unknown ORAL EVERY 6 HOURS 1 TABLET 047174 RxNorm TAKE 1 TABLET ORAL EVERY 6 [...] Code Code System CHRONIC NECK PAIN active 033265622542 7 SNOMED-CT DISORDER OF ROTATOR CUFF active 292627480 SNOMED-CT SPRAIN OF LEFT SHOULDER active 58665025650475735 SNOMED-CT CHRONIC BACK PAIN active 058783458 SN OMED-CT CHRONIC MIGRAINE active 012835515 SNO MED-CT DIABETES active 36349656 SNOMED-CT GASTROPARESES active 449626661 SNOMED -CT ERIKA CELL NEOPLASM active 467425855 SNOMED-CT HYPERTENSION active 01380801 SNOMED- CT DRUG SEEKING BEHAVIOR active 68957174 SNOMED-CT MALINGERING active 65600345 SNOMED-C 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 10/24/2024 resolved 15893327 SNOMED-CT Allergies and Adverse Reactions Allergy Substance Reaction Severity Start Date Concern Status Code Code System PROCHLORPERAZINE go crazy (SNOMED-CT: null) Severe Active 8704 RxNorm ISOSORBIDE MONONITRATE SOB, anxiety (SNOMED-CT: null) Active 66874 RxNorm CLARITHROMYCIN Vomiting (SNOMED-CT: 651277077) Severe Active 59811 RxNorm BENADRYL went crazy (SNOMED-CT: null) Severe Active 865990 RxNorm IMITREX Tachycardia (SNOMED-CT: 1972946) Moderate Active 146457 RxNorm Plan of Treatment No Data Found Encounters Encounter Diagnosis Start Date Code Code Sys tem Migraine, unspecified, not i ntractable, without status migrainosus 06/19/2025 SNOMED-CT Personal Care Team Section
--- OUTSIDE RECORDS SUMMARY | 2025-08-11 14:04 | XMS_ITS | Encounter Summary ---
Author Organization [facility] Address [address] [place] [address] Care Team Providers Care English Horn Player Name Role Phone Yaneth Lagos MD Primary Care Provider [phone] Yaneth Lagos MD Primary Care Provider [phone] Hero Bearden MD Unavailable Adele Lagos MD Primary Care Provider [phone] Ce Villalobos MD Unavailable Brissa Tijerina MD Primary Care Provider + Encounter Details Date Type Department Care Team (Late st Contact Info) Description 06/24/[address] Abstract [facility] [address] [place] [address] , Dot Springer MD Social History Tobacco Use Types Packs/Day Years Used Date Smoking Tobacco: Never Assessed Comments Unknown Sex and Gender Information Value Date Recorded Sex Assigned at Female 09/30/2024 10:51 PM JOWL TRIMMER Legal Sex Female 7:02 PM CDT Gender Identity Not on file Sexual Orientation Not on file documented as of this encounter Plan of Treatment Not on file documented as of this encounter Visit Diagnoses Not on filedocumented in this encounter Care Teams English Horn Player Relationship Specialty Start Date End Date Yaneth Lagos MD [facility] [address] [facility] [address] [place] [address] PCP - General 03/22/17 04/07/18 Yaneth Lagos MD [address] [facility] [address] [place] [address] PCP - General FAMILY PRACTICE 09/17/19 06/15/22 Adele Lagos MD [address] [place] [address] PCP - General INTERNAL MEDICINE 06/16/22 11/02/24 Brissa Tijerina MD [address] [place] [address] PCP - General FAMILY PRACTICE 11/03/24 Hero Bearden MD [address] [phone] Patient Accounts Coordinator OBGYN 04/04/22 Ce Villalobos MD [address] [place] [address] [place] [employer] Cement Sheet Supervisor CARDIOVASCULAR DISEASE 07/18/22 documented as of this encounter
[2025-08-11 14:11] VITALS: BP 140/58; PULSE 68; RESP 18; O2SAT 100
[2025-08-11 14:17] LABS: Hematocrit 34.5 % (37.0-47.0); Hemoglobin 10.9 g/dL (12.0-15.0); Immature Granulocyte Percent A 0.3 % (0-0.5); Lymphocytes Absolute Auto 1.74 K/mm3 (0.9-3.2); Mean Corpuscular HGB Conc 31.6 g/dl (32-36); Mean Corpuscular Hemoglobin 26.4 pg (26-34); Mean Corpuscular Volume 83.5 fl (80-100); Nucleated Red Blood Cells Absolute Auto 0.000 K/mm3 (0.0-0.012); Nucleated Red Blood Cells Perc 0.0 % (0.0-0.2); Platelet Count Result 246 k/mm3 (150-375); Red Blood Count 4.13 M/mm3 (4.2-5.4); White Blood Count 7.3 K/mm3 (4.5-10.0)
[2025-08-11] MEDS: LACTATED RINGERS 1,000 ML 999 ML IV CONT (14:22)
[2025-08-11] MEDS: ONDANSETRON INJ 4 MG/2 ML VIAL IV PUSH (14:23)
[2025-08-11] MEDS: MORPHINE SULFATE (*CRX) 4 MG/ML INJ 2 MG IV PUSH (14:24)
[2025-08-11] MEDS: FAMOTIDINE 20 MG/2 ML VIAL IV PUSH (14:26)
[2025-08-11 14:28] LABS: Alanine Aminotransferase 27 U/L (6-35); Albumin Level 3.9 g/dL (3.5-5.1); Alkaline Phosphatase 133 U/L (38-126); Anion Gap 5 mmol/L (4-12); Aspartate Amino Transferase 57 U/L (14-36); Bilirubin,Total 0.7 mg/dL (0.2-1.3); Blood Urea Nitrogen 14 mg/dL (7-17); Calcium 9.1 mg/dL (8.4-10.2); Carbon Dioxide 26 mmol/L (22-30); Chloride 104 mmol/L (98-107); Estimated CRCL calculation 94 ml/min; Estimated Glomerular Filt Rate > 60; Glucose 143 mg/dL (65-110); Lipase 94 U/L (23-300); Potassium 4.7 mmol/L (3.4-5.0); Sodium 135 mmol/L (137-145); Total Protein 7.3 g/dL (6.3-8.2)
--- NOTE | 2025-08-11 15:12 | ED.ABDPAIN ---
HPI - Abdominal Pain General Chief Complaint: Abdominal Pain Stated Complaint: abdominal pain since thu. N/V Time Seen by Provider: 08/11/25 13:51 History of Present Illness HPI narrative: Patient with history of gastric presents here with nausea, vomiting, abdominal pain, feels like her usual gastroparesis and abdominal pain. Tried home Zofran without improvement. Related Data Home Medications ?Medication ?Instructions ?Recorded ?Confirmed ?Last Taken ?Type amlodipine 5 mg tablet 5 mg PO DAILY@79905/13/25 06/02/25 Unknown History atorvastatin 80 mg tablet 80 mg PO DAILY@79905/13/25 06/02/25 Unknown History blood-glucose sensor (Dexcom G7 05/13/25 05/13/25 Unknown History Sensor device) carvedilol 12.5 mg tablet 12.5 mg PO BID 05/13/25 06/02/25 05/13/25 09:30 History 12.5 mg dicyclomine 20 mg tablet 20 mg PO BID 05/13/25 06/02/25 05/13/25 09:30 History 20 mg erenumab-aooe 70 mg/mL 70 mg subcut MONTHLY 05/13/25 06/02/25 04/23/25 History subcutaneous auto-injector (Aimovig Autoinjector) hydroxyzine HCl 25 mg tablet 25 mg PO HS 05/13/25 06/02/25 05/12/25 22:30 History 50 mg insulin lispro 100 unit/mL 1 sliding scale dose continuous 05/13/25 06/02/25 05/13/25 18:50 History subcutaneous solution (Humalog subcutaneous infusion PRN PRN 6.3 U-100 Insulin) hyperglycemia insulin pump cart,auto,BT,G6/7 05/13/25 05/13/25 Unknown History (Omnipod 5 G6-G7 Pods (Gen 5) subcutaneous cartridge) methocarbamol 500 mg tablet 500 mg PO HS 05/13/25 06/02/25 05/12/25 22:30 History 500 mg pantoprazole 40 mg tablet,delayed 40 mg PO HS 05/13/25 06/02/25 05/12/25 22:30 History release 40 mg ropinirole 0.25 mg tablet 0.75 mg PO HS PRN restless leg(s) 05/13/25 06/02/25 05/08/25 22:00 History 0.75 mg venlafaxine 150 mg 150 mg PO QPM 05/13/25 06/02/25 05/12/25 22:30 History capsule,extended release 24 hr 150 mg Allergies Allergy/AdvReac Type Severity Reaction Status Date / Time prochlorperazine Allergy Intermediate Agitated Verified 08/11/25 13:50 clarithromycin Allergy Mild VIOLENTLY Verified 08/11/25 13:50 ILL WITH VOMITING sumatriptan Allergy Mild POUNDING Verified 08/11/25 13:50 HR, DIFFICULTY BREATHING metoclopramide AdvReac Intermediate Jittery Verified 08/11/25 13:50 diphenhydramine AdvReac Unknown GOES Verified 08/11/25 13:50 CRAPABLITO Review of Systems Review of Systems: All systems reviewed & are unremarkable except as noted in HPI and below PMFSH Past Medical History Medical History Jean Claude cell tumor Diabetes mellitus Hypertension Arthritis Asthma Surgical History Surgical History H/O cardiac catheterization Social History Social History Smoking status: Never smoker Smokeless tobacco user: snus Alcohol intake: never Lack of Transportation: No Lack of Food: Never True Current Housing: I Have Housing Concerned About Future Housing: No Difficulty Paying Gas/Electric Bills: No Difficulty Paying for Meds: No Currently Unemployed: No Education: Don't Know Difficulty w/ Childcare or Family Care: No Spiritual care concerns: No Exam Narrative: EXAMINATION OF ORGAN SYSTEMS/BODY AREAS: Constitutional: Vital signs per nursing GENERAL:[No acute distress, non-toxic appearing.] HEAD: Normal with no signs of head trauma. EYES: EOMI, conjunctiva normal ENT: Hearing grossly intact LUNGS: Nonlabored breathing. HEART: [Regular rate and rhythm] ABD: [Soft], [nontender to palpation] EXT: Normal range of motion SKIN: [No rashes or lesions.] NEURO: [Alert and oriented x 3. No gross focal sensory or strength deficits.] PSYCH: Normal affect Course Vital Signs Vital signs: Vital Signs Pulse Rate 68 08/11/25 14:11 Respiratory Rate 18 08/11/25 14:11 Blood Pressure 140/58 L 08/11/25 14:11 Pulse Oximetry 100 08/11/25 14:11 Oxygen Delivery Room Air 08/11/25 14:11 Pulse Rate 68 08/11/25 14:11 Respiratory Rate 18 08/11/25 14:11 Blood Pressure 140/58 L 08/11/25 14:11 Pulse Oximetry 100 08/11/25 14:11 Oxygen Delivery Room Air 08/11/25 14:11 MDM - Abdominal Pain MDM Narrative Medical decision making narrative: Patient presenting here with feels like her usual gastroparesis, with abdominal pain, nausea vomiting, did not improve with home Zofran. She does come here frequently for the same symptoms. Declines CT again, requesting narcotics. Labs here are close to patient's baseline, and on repeat evaluation she has no new abdominal pain, no new tenderness. Declined CT scan. Resting further narcotic medications. At this point do not feel there is anything emergent provided I do feel she is stable for discharge with follow-up to primary care doctor with return precautions. She has not had any further emesis in the emergency room. Lab Data 08/11/25 14:09 08/11/25 14:09 Labs: Lab Results 08/11/25 08/11/25 Range/Units 14:09 15:13 WBC 7.3 (4.5-10.0) K/mm3 RBC 4.13 L (4.2-5.4) M/mm3 Hgb 10.9 L (12.0-15.0) g/dL Hct 34.5 L (37.0-47.0) % MCV 83.5 (80-100) fl MCH 26.4 (26-34) pg MCHC 31.6 L (32-36) g/dl RDW 13.2 (11.5-14.5) % Plt Count 246 (150-375) k/mm3 MPV 9.0 (7.4-10.4) fl Immature Gran % (Auto) 0.3 (0-0.5) % Neut % (Auto) 64.1 (45.5-73.1) % Lymph % (Auto) 23.9 (18.3-44.2) % [place] % (Auto) 8.0 (2.6-8.5) % Eos % (Auto) 2.9 (0-4.4) % Baso % (Auto) 0.8 (0.2-1.2) % Lymph # (Auto) 1.74 (0.9-3.2) K/mm3 [place] # (Auto) 0.6 (0.1-0.6) K/mm3 Eos # (Auto) 0.2 (0-0.3) K/mm3 Baso # (Auto) 0.1 (0.0-0.1) K/mm3 Abs Immat Gran (auto) 0.02 (0.00-0.031) K/mm3 Absolute Neuts (auto) 4.7 (1.3-6.7) K/mm3 Absolute Nucleated RBC 0.000 (0.0-0.012) K/mm3 Nucleated RBC % 0.0 (0.0-0.2) % Sodium 135 L (137-145) mmol/L Potassium 4.7 (3.4-5.0) mmol/L Chloride 104 (98-107) mmol/L Carbon Dioxide 26 (22-30) mmol/L Anion Gap 5 (4-12) mmol/L BUN 14 (7-17) mg/dL Creatinine 0.81 (0.7-1.0) mg/dL Estim Creat Clear Calc 94 ml/min Estimated GFR > 60 (59 - ) Glucose 143 H (65-110) mg/dL Lactic Acid 1.0 (0.7-2.0) mmol/L Calcium 9.1 (8.4-10.2) mg/dL Total Bilirubin 0.7 (0.2-1.3) mg/dL AST 57 H (14-36) U/L ALT 27 (6-35) U/L Alkaline Phosphatase 133 H (38-126) U/L Total Protein 7.3 (6.3-8.2) g/dL Albumin 3.9 (3.5-5.1) g/dL Lipase 94 (23-300) U/L POC Urine HCG, Qual Negative (Negative) Discharge Plan Discharge Clinical Impression: Abdominal pain Patient Disposition: Home Condition: Stable Instructions: Abdominal Pain (ED) Additional Instructions: Please follow-up with your primary care doctor, continue with your home medications and if your symptoms worsen you should return to the emergency room. Patient Language: Cypriot Prescriptions: No Action hydrocodone-acetaminophen 5-325 mg tablet 1 tablet PO Q6H PRN (Reason: pain) Qty: 10 0RF amlodipine 5 mg tablet 5 mg PO DAILY@0800 Patient Comments: had been on hold since february atorvastatin 80 mg tablet 80 mg PO DAILY@0800 Patient Comments: has been on hold since apr 20 carvedilol 12.5 mg tablet 12.5 mg PO BID (DME) Dexcom G7 Sensor Device MISCELLANEOUS Patient Comments: changed 05/12/2025 dicyclomine 20 mg tablet 20 mg PO BID Aimovig Autoinjector 70 mg/mL auto-injector 70 mg SUBCUT MONTHLY Patient Comments: took 04/23/2025 not do till 05/24/2025 hydroxyzine HCl 25 mg tablet 25 mg PO HS insulin lispro [Humalog U-100 Insulin] 100 unit/mL solution 1 sliding scale dose continuous subcutaneous infusion PRN PRN (Reason: hyperglycemia) Rx Instructions: 1 sliding scale dose via continuous subcutaneous infusion PRN; (DME) Omnipod 5 G6-G7 Pods (Gen 5) Cartridge SUBCUT methocarbamol 500 mg tablet 500 mg PO HS pantoprazole 40 mg tablet,delayed release (DR/EC) 40 mg PO HS ropinirole 0.25 mg tablet 0.75 mg PO HS PRN (Reason: restless leg(s)) venlafaxine 150 mg capsule,extended release 24hr 150 mg PO QPM Patient Comments: Dose changed on thursday aspirin [Children's Aspirin] 81 mg Tablet,Chewable 81 mg PO DAILY@0800 Qty: 30 0RF isosorbide mononitrate 60 mg Tablet Extended Release 24 Hr 60 mg PO QAM Qty: 30 1RF ondansetron 4 mg tablet,disintegrating 4 mg PO Q6H PRN (Reason: nausea and vomiting) Qty: 20 0RF Follow-up/Referrals: Breezy,Brissa Zamora MD [Primary Care Provider, Unknown]
[2025-08-11 15:15] LABS: BEDSIDEPREGUCG Negative (Negative)
[2025-08-11] MEDS: MORPHINE SULFATE (*CRX) 4 MG/ML INJ IV PUSH (15:30)
[2025-08-11 15:31] VITALS: BP 145/72; PULSE 63; RESP 18; O2SAT 100
[2025-08-11 15:43] LABS: Add Urine Microscopic? YES; Appearance Urine Clear (Clear); Glucose Urine UA Negative (Negative); Leukocyte Esterase Ur 1+ LEU/UL (Negative); Need Manual Microscopic Reviewed; Nitrate Urine Negative (Negative); Non Pathogenic Casts 0-2; Specific Grav Ur 1.007 (1.001-1.035)
== END 2025-08-11 16:28 | disposition home or self-care (01) ==
PROVIDERS: Emergency Provider Emergency Medicine; PCP Family Medicine
DX: R10.9 Unspecified abdominal pain (principal); I10 Essential (primary) hypertension; J45.909 Unspecified asthma, uncomplicated; E11.43 Type 2 diabetes mellitus with diabetic autonomic (poly)neuropathy; K31.84 Gastroparesis; M19.90 Unspecified osteoarthritis, unspecified site; Z79.82 Long term (current) use of aspirin; Z79.4 Long term (current) use of insulin; Z79.899 Other long term (current) drug therapy
CPT/HCPCS: 36415; 80053; 81001; 81025; 83605; 83690; 85025; 87077; 87086; 87147; 87186; 96361; 96374; 96375; 96376; 99284; J2270; J2405; J7120

== ENCOUNTER 2025-08-18 15:02 | Emergency (ER) | payer MEDICARE, MEDICAID, SELFPAY ==
[2025-08-18] VITALS (7 sets, daily range): BP systolic 116–179; BP diastolic 51–71; PULSE 64–86; RESP 13–25; TEMP 36.2; O2SAT 95–100
--- NOTE | ~2025-08-18 | CT_ITS ---
Leti White EXAMINATION: CT abdomen pelvis w con COMPARISON: Comparison 07/21/2025. HISTORY: LOWER ABDOMINAL PAIN TECHNIQUE: Axial images were obtained through the abdomen, pelvis post administration of IV contrast. Oral contrast was also administered. Coronal reconstruction images were obtained from the axial views. CT scan performed using dose optimization techniques including the following automated exposure control; adjustment of mA and/or kV; use of iterative reconstruction technique. Automatic exposure control was used to reduce radiation dose. Permanent radiation dose record is archived to PACS. FINDINGS: CT abdomen: LUNG BASES: The lung bases are clear. The visualized portions of the heart and pericardium are unremarkable. LIVER: Mild hepatic steatosis. There is a cystic focus adjacent to the caudate lobe of the liver measuring 4 x 4 cm possibly an exophytic liver cyst however cyst of the biliary system is not excluded, there are cholecystectomy clips immediately adjacent to this focus, possibility of a small biloma is not excluded. SPLEEN: Unremarkable. KIDNEYS: Right Kidney: Right kidney midpole simple cyst 1 x 1 cm. Left Kidney: Unremarkable. No calculi. No hydronephrosis ADRENAL GLANDS: Unremarkable. PANCREAS: Mild pancreatic atrophy. GALLBLADDER/BILIARY: Post cholecystectomy. STOMACH AND ESOPHAGUS: Small hiatal hernia. Mild thickening of the esophagus may reflect esophagitis. BOWEL/MESENTERY: No colitis or diverticulitis. Moderate fecal content. The appendix is not identified. Mesentery normal. Small bowel normal. There are no thickened or dilated loops of bowel. ADENOPATHY/RETROPERITONEUM: No lymphadenopathy. AORTA/VASCULATURE: Normal caliber aorta. FREE FLUID OR FREE AIR: No free fluid.. CT pelvis: SOLID ORGANS/REPRODUCTIVE: The uterus is atrophic. There is no adnexal mass. BLADDER: Within normal limits. OSSEOUS STRUCTURES: No acute osseous abnormality.No suspicious lesions. OVERLYING SOFT TISSUES: Postsurgical changes in the abdominal wall. IMPRESSION: 1. No acute intra-abdominal process. 2. Cystic lesion detailed above possibly an exophytic liver cyst however a choledochal cyst is not excluded. This finding is new compared to the previous study, possibility of a biloma is not excluded. Clinical correlation required. Contrast-enhanced MRI is recommended Reviewed, dictated and finalized at location [facility] IMPRESSION: 1. No acute intra-abdominal process. 2. Cystic lesion detailed above possibly an exophytic liver cyst however a chol edochal cyst is not excluded. This finding is new compared to the previous stud y, possibility of a biloma is not excluded. Clinical correlation required. Cont rast-enhanced MRI is recommended
--- NOTE | 2025-08-18 15:37 | ED.ABDPAIN ---
HPI - Abdominal Pain General Chief Complaint: Abdominal Pain Stated Complaint: abd pain Time Seen by Provider: 08/18/25 15:28 Source: patient Mode of arrival: ambulatory Limitations: no limitations Related Data Home Medications ?Medication ?Instructions ?Recorded ?Confirmed ?Last Taken ?Type amlodipine 5 mg tablet 5 mg PO DAILY@79905/13/25 06/02/25 Unknown History atorvastatin 80 mg tablet 80 mg PO DAILY@79905/13/25 06/02/25 Unknown History blood-glucose sensor (Dexcom G7 05/13/25 05/13/25 Unknown History Sensor device) carvedilol 12.5 mg tablet 12.5 mg PO BID 05/13/25 06/02/25 05/13/25 09:30 History 12.5 mg dicyclomine 20 mg tablet 20 mg PO BID 05/13/25 06/02/25 05/13/25 09:30 History 20 mg erenumab-aooe 70 mg/mL 70 mg subcut MONTHLY 05/13/25 06/02/25 04/23/25 History subcutaneous auto-injector (Aimovig Autoinjector) hydroxyzine HCl 25 mg tablet 25 mg PO HS 05/13/25 06/02/25 05/12/25 22:30 History 50 mg insulin lispro 100 unit/mL 1 sliding scale dose continuous 05/13/25 06/02/25 05/13/25 18:50 History subcutaneous solution (Humalog subcutaneous infusion PRN PRN 6.3 U-100 Insulin) hyperglycemia insulin pump cart,auto,BT,G6/7 05/13/25 05/13/25 Unknown History (Omnipod 5 G6-G7 Pods (Gen 5) subcutaneous cartridge) methocarbamol 500 mg tablet 500 mg PO HS 05/13/25 06/02/25 05/12/25 22:30 History 500 mg pantoprazole 40 mg tablet,delayed 40 mg PO HS 05/13/25 06/02/25 05/12/25 22:30 History release 40 mg ropinirole 0.25 mg tablet 0.75 mg PO HS PRN restless leg(s) 05/13/25 06/02/25 05/08/25 22:00 History 0.75 mg venlafaxine 150 mg 150 mg PO QPM 05/13/25 06/02/25 05/12/25 22:30 History capsule,extended release 24 hr 150 mg Allergies Allergy/AdvReac Type Severity Reaction Status Date / Time prochlorperazine Allergy Intermediate Agitated Verified 08/18/25 15:09 clarithromycin Allergy Mild VIOLENTLY Verified 08/18/25 15:09 ILL WITH VOMITING sumatriptan Allergy Mild POUNDING Verified 08/18/25 15:09 HR, DIFFICULTY BREATHING metoclopramide AdvReac Intermediate Jittery Verified 08/18/25 15:09 diphenhydramine AdvReac Unknown GOES Verified 08/18/25 15:09 [facility] Past Medical History Medical History Jean Claude cell tumor Diabetes mellitus Hypertension Arthritis Asthma Surgical History Surgical History H/O cardiac catheterization Social History Social History Smoking status: Never smoker Smokeless tobacco user: snus Alcohol intake: never Lack of Transportation: No Lack of Food: Never True Current Housing: I Have Housing Concerned About Future Housing: No Difficulty Paying Gas/Electric Bills: No Difficulty Paying for Meds: No Currently Unemployed: No Education: Don't Know Difficulty w/ Childcare or Family Care: No Spiritual care concerns: No Course Vital Signs Vital signs: Vital Signs Temperature 36.2 C L 08/18/25 15:07 Pulse Rate 73 08/18/25 15:07 Respiratory Rate 16 08/18/25 15:07 Blood Pressure 179/71 H 08/18/25 15:07 Pulse Oximetry 98 08/18/25 15:07 Temperature 36.2 C L 08/18/25 15:07 Pulse Rate 73 08/18/25 15:07 Respiratory Rate 16 08/18/25 15:07 Blood Pressure 179/71 H 08/18/25 15:07 Pulse Oximetry 98 08/18/25 15:07 Discharge Plan Discharge Instructions: Antibiotic Form Patient Language: Mozambican Prescriptions: No Action hydrocodone-acetaminophen 5-325 mg tablet 1 tablet PO Q6H PRN (Reason: pain) Qty: 10 0RF amlodipine 5 mg tablet 5 mg PO DAILY@0800 Patient Comments: had been on hold since february atorvastatin 80 mg tablet 80 mg PO DAILY@0800 Patient Comments: has been on hold since apr 20 carvedilol 12.5 mg tablet 12.5 mg PO BID (DME) Dexcom G7 Sensor Device MISCELLANEOUS Patient Comments: changed 05/12/2025 dicyclomine 20 mg tablet 20 mg PO BID Aimovig Autoinjector 70 mg/mL auto-injector 70 mg SUBCUT MONTHLY Patient Comments: took 04/23/2025 not do till 05/24/2025 hydroxyzine HCl 25 mg tablet 25 mg PO HS insulin lispro [Humalog U-100 Insulin] 100 unit/mL solution 1 sliding scale dose continuous subcutaneous infusion PRN PRN (Reason: hyperglycemia) Rx Instructions: 1 sliding scale dose via continuous subcutaneous infusion PRN; (DME) Omnipod 5 G6-G7 Pods (Gen 5) Cartridge SUBCUT methocarbamol 500 mg tablet 500 mg PO HS pantoprazole 40 mg tablet,delayed release (DR/EC) 40 mg PO HS ropinirole 0.25 mg tablet 0.75 mg PO HS PRN (Reason: restless leg(s)) venlafaxine 150 mg capsule,extended release 24hr 150 mg PO QPM Patient Comments: Dose changed on thursday aspirin [Children's Aspirin] 81 mg Tablet,Chewable 81 mg PO DAILY@0800 Qty: 30 0RF isosorbide mononitrate 60 mg Tablet Extended Release 24 Hr 60 mg PO QAM Qty: 30 1RF ondansetron 4 mg tablet,disintegrating 4 mg PO Q6H PRN (Reason: nausea and vomiting) Qty: 20 0RF Follow-up/Referrals: Breezy,Brissa Zamora MD [Primary Care Provider, Unknown]
--- OUTSIDE RECORDS SUMMARY | 2025-08-18 16:20 | XMS_ITS | Clinical Summary ---
Author Organization [facility] Virtual Care Address [address] [place] [phone] Phone Care Team Providers Care Machine Plug Shaper Name Role Phone Brissa Tijerina MD Primary Care Provider [phone] Allergies Active Allergy Reactions Criticality Noted Date [...] Encounters Date Type Department Care Team Description 08/15/2025 8:03 PM TRANSPORTATION DESIGN ENGINEER - 08/15/2025 10:23 PM [facility] Emergency Department [address] [place] [address] Abdominal pain, unspecified abdominal location (Primary Dx) Discharge Disposition: Discharge to home or self care 08/05/2025 6:03 PM TRANSPORTATION DESIGN ENGINEER - 08/05/2025 9:57 PM [facility] Emergency Department [address] [place] [address] Abdominal pain, unspecified abdominal location (Primary Dx) Discharge Disposition: Discharge to home or self care 07/31/2025 5:53 PM TRANSPORTATION DESIGN ENGINEER - 07/31/2025 9:13 PM [facility] Emergency Department [address] [place] [address] Nausea and vomiting, unspecified vomiting type (Primary Dx); Abdominal pain, unspecified abdominal location Discharge Disposition: Discharge to home or self care 07/23/2025 4:26 PM TRANSPORTATION DESIGN ENGINEER - 07/23/2025 7:22 PM TRANSPORTATION DESIGN ENGINEER Emergency [facility] Emergency Department [address] [place] [address] Abdominal pain, unspecified abdominal location (Primary Dx); Vomiting and diarrhea Discharge Disposition: Discharge to home or self care 07/13/2025 6:23 AM CDT - 07/13/2025 8:59 AM CDT Emergency [facility] Emergency Department [address] [place] [address] Yves Andre MD Chest pain, unspecified type (Primary Dx) Discharge Disposition: Discharge to home or self care 07/07/2025 12:23 PM CDT - 07/07/2025 3:20 PM CDT Emergency [facility] Emergency Department [address] [place] [address] Abdominal pain, unspecified abdominal location (Primary Dx); Diarrhea, unspecified type Discharge Disposition: Discharge to home or self care 06/25/2025 9:29 PM CDT - 06/25/2025 11:28 PM CDT Emergency [facility] Emergency Department [address] [place] [address] Rox Amos MD Right lower quadrant abdominal pain (Primary Dx) Discharge Disposition: Discharge to home or self care 05/24/2025 Orders Only [facility] Cardiology [address] [place] [phone] Wm De La Garza MD from Last [...] making you feel afraid or unsafe? Denies 08/15/2025 Comments No Sex and Gender Information Value Date Recorded Sex Assigned at Not on file Legal Sex Female 2:45 AM TRANSPORTATION DESIGN ENGINEER Gender Identity Not on file Sexual Orientation Not on file Last Filed Vital Signs Vital Sign Reading Time Taken Comments Blood Pressure 171/89 08/15/2025 10:15 PM TRANSPORTATION DESIGN ENGINEER Pulse 85 08/15/2025 10:15 PM TRANSPORTATION DESIGN ENGINEER Temperature 36.3 C (97.3 F) 08/15/2025 7:18 PM TRANSPORTATION DESIGN ENGINEER Respiratory Rate 16 08/15/2025 10:22 PM TRANSPORTATION DESIGN ENGINEER Oxygen Saturation 96% 08/15/2025 10:15 PM TRANSPORTATION DESIGN ENGINEER Inhaled Oxygen Concentration - - Weight 122.5 kg (270 lb) 08/15/2025 7:18 PM TRANSPORTATION DESIGN ENGINEER Height 170.2 cm (5' 7) 08/15/2025 7:18 PM TRANSPORTATION DESIGN ENGINEER Body Mass Index 42.29 08/15/2025 7:18 PM TRANSPORTATION DESIGN ENGINEER Plan of Treatment Health Maintenance Due Date [...] Procedure Name Priority Date/Time Associated Diagnosis Comments POCT HCG, URINE Routine 08/15/2025 8:12 PM TRANSPORTATION DESIGN ENGINEER URINALYSIS, MICROSCOPIC ONLY STAT 08/15/2025 8:12 PM TRANSPORTATION DESIGN ENGINEER URINALYSIS AND REFLEX TO MICROSCOPIC AND CULTURE STAT 08/15/2025 8:12 PM TRANSPORTATION DESIGN ENGINEER EGFR STAT 08/15/2025 7:29 PM TRANSPORTATION DESIGN ENGINEER DIFFERENTIAL AUTO STAT 08/15/2025 7:2 9 PM TRANSPORTATION DESIGN ENGINEER LIPASE STAT 08/15/2025 7:29 PM TRANSPORTATION DESIGN ENGINEER COMPREHENSIVE METABOLIC PANEL STAT 08/15/2025 7:29 PM TRANSPORTATION DESIGN ENGINEER CBC WITH AUTO DIFFERENTIAL STAT 08/15/2025 7:29 PM TRANSPORTATION DESIGN ENGINEER CT ABDOMEN PELVIS W CONTRAST ED 08/05/2025 9:14 PM TRANSPORTATION DESIGN ENGINEER EGFR STAT 08/05/2025 6:06 PM TRANSPORTATION DESIGN ENGINEER DIFFERENTIAL AUTO STAT 08/05/2025 6:0 6 PM TRANSPORTATION DESIGN ENGINEER LIPASE STAT 08/05/2025 6:06 PM TRANSPORTATION DESIGN ENGINEER COMPREHENSIVE METABOLIC PANEL STAT 08/05/2025 6:06 PM TRANSPORTATION DESIGN ENGINEER CBC WITH AUTO DIFFERENTIAL STAT 08/05/2025 6:06 PM TRANSPORTATION DESIGN ENGINEER POCT GLUCOSE DEVICE Routine 07/31/2025 8 :42 PM TRANSPORTATION DESIGN ENGINEER SEPSIS LACTATE WITH REFLEX STAT 07/31/2025 8:40 PM TRANSPORTATION DESIGN ENGINEER CT ABDOMEN PELVIS W CONTRAST ED 07/31/2025 7:11 PM TRANSPORTATION DESIGN ENGINEER URINALYSIS, MICROSCOPIC ONLY STAT 07/31/2025 7:04 PM TRANSPORTATION DESIGN ENGINEER URINALYSIS AND REFLEX TO MICROSCOPIC AND CULTURE STAT 07/31/2025 7:04 PM TRANSPORTATION DESIGN ENGINEER EGFR STAT 07/31/2025 5:15 PM TRANSPORTATION DESIGN ENGINEER DIFFERENTIAL AUTO STAT 07/31/2025 5:1 5 PM TRANSPORTATION DESIGN ENGINEER LIPASE STAT 07/31/2025 5:15 PM TRANSPORTATION DESIGN ENGINEER COMPREHENSIVE METABOLIC PANEL STAT 07/31/2025 5:15 PM TRANSPORTATION DESIGN ENGINEER CBC WITH AUTO DIFFERENTIAL STAT 07/31/2025 5:15 PM TRANSPORTATION DESIGN ENGINEER XR ELBOW RIGHT 2 OR MORE VIEWS ED 07/23/2025 5:44 PM TRANSPORTATION DESIGN ENGINEER URINALYSIS, MICROSCOPIC ONLY STAT 07/23/2025 5:19 PM TRANSPORTATION DESIGN ENGINEER URINALYSIS AND REFLEX TO MICROSCOPIC AND CULTURE STAT 07/23/2025 5:19 PM TRANSPORTATION DESIGN ENGINEER POCT GLUCOSE DEVICE Routine 07/23/2025 5 :18 PM TRANSPORTATION DESIGN ENGINEER EGFR STAT 07/23/2025 3:51 PM TRANSPORTATION DESIGN ENGINEER DIFFERENTIAL AUTO STAT 07/23/2025 3:5 1 PM TRANSPORTATION DESIGN ENGINEER LIPASE STAT 07/23/2025 3:51 PM TRANSPORTATION DESIGN ENGINEER COMPREHENSIVE METABOLIC PANEL STAT 07/23/2025 3:51 PM TRANSPORTATION DESIGN ENGINEER CBC WITH AUTO DIFFERENTIAL STAT 07/23/2025 3:51 PM TRANSPORTATION DESIGN ENGINEER TROPONIN T HIGH-SENSITIVITY 2-HOUR Timed 07/13/2025 8:01 [...] AUTO DIFFERENTIAL STAT 06/25/2025 9:07 PM CDT from Last 3 Months Results * (ABNORMAL) Urinalysis reflex to microscopic and culture Urine (08/15/2025 8:12 PM TRANSPORTATION DESIGN ENGINEER) Color, ur Yellow Yellow Clarity, ur Clear Clear [facility]) Specific gravity, ur 1.015 1.003 - 1.030 [facility] ([place]) pH, [...] tendency for uric acid stone formation. Source: [facility] [employer] Current Interpretive Data was last revised on [...] [facility]) Leukocyte esterase, ur 3+(A) Negative [facility] ([place]) UA reflex comment Reflex to microscopic UA will be performed. [facility] ([place]) Urine 08/15/2025 8:12 PM TRANSPORTATION DESIGN ENGINEER 08/15/2025 8:21 PM TRANSPORTATION DESIGN ENGINEER Emely Keys NP LAB MICROBIOLOGY - GENERAL OR DERABLES Final Result [facility] ([place]) [address] [facility] Department [place] [address] * (ABNORMAL) Urinalysis, microscopic only (08/15/2025 8:12 PM TRANSPORTATION DESIGN ENGINEER) Pathologist [facility] WBC, ur 0-5 0 - 5 /HPF RBC, ur 0-2 0 - 2 /HPF [facility] ([place]) Epithelial cells, squamous, ur 6-10(A) 0 - 5 /HPF [facility] ([place]) Bacteria, ur Trace(A) [facility] ([place]) Mucous, ur Present(A) [facility] ([place]) Hyaline casts, ur 1-5 0 - 10 /LPF [facility] ([place]) Culture Reflex Comment Reflex conditions for urine culture (WBC >10) not met. [facility] ([place]) Urine 08/15/2025 8:1 2 PM TRANSPORTATION DESIGN ENGINEER 08/15/2025 8:21 PM TRANSPORTATION DESIGN ENGINEER us Emely Keys NP LAB URINE ORDERABLES Final Re sult [facility] ([place]) 1 [facility] Department [place] [address] * POCT hCG, urine (08/15/2025 8:12 PM TRANSPORTATION DESIGN ENGINEER) [facility] HCG, ur, POC Negative Negative Lot Number [id number] QC Backgroud Clear Acceptable QC Control Line Acceptable Urine 08/15/2025 8:12 PM TRANSPORTATION DESIGN ENGINEER us Emely Keys NP POINT OF CARE TEST ORDERABLES Final Result * eGFR (08/15/2025 7:29 PM TRANSPORTATION DESIGN ENGINEER) Pathologist [facility] eGFR 77 >=60 mL/min/1. 73 m2 Comment: Interpretive Data [...] interpretive data was last reviewed 2021. Blood 08/15/2025 7:29 PM TRANSPORTATION DESIGN ENGINEER 08/15/2025 7:34 PM TRANSPORTATION DESIGN ENGINEER us Emely Keys SAMPLE TESTER GRINDER LAB BLOOD ORDERABLES Final Re sult [facility] ([place]) [address] [facility] Department [place] [address] * Differential, auto (08/15/2025 7:29 PM TRANSPORTATION DESIGN ENGINEER) Neutrophil abs 5.73 1.50 - 6.50 K/cumm Imm gran abs 0.03 0.00 - 0.10 K/cumm [facility] ([place]) Lymphocyte abs 1.96 0.80 - 3.30 K/cumm [facility] ([place]) Monocyte abs 0.77 0.20 - 0.80 K/cumm [facility] ([place]) Eosinophil abs 0.23 0.00 - 0.50 K/cumm [facility] ([place]) Basophil abs 0.06 0.00 - 0.10 K/cumm [facility] ([place]) Neutrophil pct 65.3 % [facility] ([place]) Comment: Interpretive [...] was last revised on 2017. Lymphocyte pct 22.3 % [facility] ([place]) Comment: Interpretive Data Percent cell count reference ranges are not reported, since discordance with absolute values may lead to misinterpretation of CBC data. Current Interpretive Data was last revised on 2017. Monocyte pct 8.8 % [facility] ([place]) Comment: Interpretive Data Percent cell count reference ranges are not reported, since discordance with absolute values may lead to misinterpretation of CBC data. Current Interpretive Data was last revised on 2017. Eosinophil pct 2.6 % [facility] ([place]) Comment: Interpretive Data Percent cell count reference ranges are not reported, since discordance with absolute values may lead to misinterpretation of CBC data. Current Interpretive Data was last revised on 2017. Basophil pct 0.7 % [facility] ([place]) Comment: Interpretive Data Percent cell count reference ranges are not reported, since discordance with absolute values may lead to misinterpretation of CBC data. Current Interpretive Data was last revised on 2017. Blood 08/15/2025 7:29 PM TRANSPORTATION DESIGN ENGINEER 08/15/2025 7:34 PM TRANSPORTATION DESIGN ENGINEER us Emely Keys SAMPLE TESTER GRINDER LAB BLOOD ORDERABLES Final Re sult [facility] ([place]) [address] [facility] Department [place] [address] * (ABNORMAL) CBC with auto differential (08/15/2025 7:29 PM TRANSPORTATION DESIGN ENGINEER) WBC 8.78 3.80 - 9.90 K/cumm Hgb 11.3(L) 11.9 - 15.5 g/dL [facility] ([place]) Hct 35.9 35.6 - 45.5 % [facility] ([place]) Plt 240 150 - 400 K/cumm [facility] ([place]) MPV 9.1 9.1 - 12.3 fL [facility]) RBC 4.34 3.90 - 5.20 M/cumm [facility] ([place]) MCV 82.7 81.3 - 96.4 fL [facility] ([place]) MCH 26.0(L) 27.1 - 33.3 pg [facility] ([place]) MCHC 31.5(L) 32.3 - 35.7 g/dL [facility] ([place]) RDW CV 13.0 11.1 - 14.9 % [facility]) RDW SD 39.3 35.7 - 48.1 fL [facility] ([place]) NRBC abs 0.00 0.00 - 0.01 K/cumm [facility] ([place]) Blood Venous blood specimen / Unknown 08/15/2025 7:29 PM TRANSPORTATION DESIGN ENGINEER 08/15/2025 7:34 PM TRANSPORTATION DESIGN ENGINEER Emely Keys SAMPLE TESTER GRINDER LAB BLOOD ORDERABLES Final Re sult [facility] ([place]) 1 [facility] [place] [address] * Lipase (08/15/2025 7:29 PM TRANSPORTATION DESIGN ENGINEER) [facility] Lipase 22 10 - 99 Units/L Blood Venous blood specimen / Unknown 08/15/2025 7:29 PM TRANSPORTATION DESIGN ENGINEER 08/15/2025 7:34 PM TRANSPORTATION DESIGN ENGINEER Emely Keys SAMPLE TESTER GRINDER LAB BLOOD ORDERABLES Final Re sult Performing Organization Address City/[facility] Care [facility]/ZIP Co de Phone Number [facility] ([place]) 1 [facility] [place] [address] * (ABNORMAL) Comprehensive metabolic panel (08/15/2025 7:29 PM TRANSPORTATION DESIGN ENGINEER) Pathologist [facility] Sodium 139 135 - 145 mmol/L Potassium, pl 4.4 3.3 - 4.9 mmol/L [facility]) Chloride 105 97 - 110 mmol/L [facility]) CO2 25 22 - 32 mmol/L [facility]) Anion gap 9 2 - 15 mmol/L [facility]) BUN 10 6 - 25 mg/dL [facility] ([place]) Creatinine 0.89 0.60 - 1.10 mg/dL [facility] ([place]) Glucose 119 70 - 199 mg/dL [facility] ([place]) Comment: Interpretive Data Fasting glucose [...] 5.0 g/dL [facility] ([place]) Alk phos 143(H) 40 - 130 Units/L [facility] ([place]) ALT 22 7 - 45 Units/L [facility]) AST 32 10 - 45 Units/L [facility]) Blood 08/15/2025 7:29 PM TRANSPORTATION DESIGN ENGINEER 08/15/2025 7:34 PM TRANSPORTATION DESIGN ENGINEER us Emely Keys NP LAB BLOOD ORDERABLES Final Re sult [facility] ([place]) 1 [facility] Department [place] [address] * CT Abdomen Pelvis W Contrast (08/05/2025 9:14 PM TRANSPORTATION DESIGN ENGINEER) Anatomical Region Laterality Modality Body N/A Computed Tomogra phy 08/05/2025 9:21 PM TRANSPORTATION DESIGN ENGINEER Impressions 08/05/2025 9:21 PM TRANSPORTATION DESIGN ENGINEER 1. No acute intra-abdominal pathology. Electronically signed by: Kal Clark M.D., MPH Narrative 08/05/2025 9:21 PM TRANSPORTATION DESIGN ENGINEER EXAMINATION: CT ABDOMEN PELVIS W CONTRAST TECHNIQUE: [...] Resul t * eGFR (08/05/2025 6:06 PM TRANSPORTATION DESIGN ENGINEER) eGFR >90 >=60 mL/min/1. 73 m2 Comment: [...] last reviewed 2021. Blood 08/05/2025 6:06 PM TRANSPORTATION DESIGN ENGINEER 08/05/2025 6:14 PM TRANSPORTATION DESIGN ENGINEER us Emely Keys SAMPLE TESTER GRINDER LAB BLOOD ORDERABLES Final Re sult [facility] ([place]) [facility] Department [place] [address] * Differential, auto (08/05/2025 6:06 PM TRANSPORTATION DESIGN ENGINEER) Neutrophil abs 5.21 1.50 - 6.50 K/cumm [...] revised on 2017. Blood 08/05/2025 6:06 PM TRANSPORTATION DESIGN ENGINEER 08/05/2025 6:14 PM TRANSPORTATION DESIGN ENGINEER us Emely Keys SAMPLE TESTER GRINDER LAB BLOOD ORDERABLES Final Re sult [facility] ([place]) [address] [facility] Department [place] [address] * (ABNORMAL) CBC with auto differential (08/05/2025 6:06 PM TRANSPORTATION DESIGN ENGINEER) WBC 8.33 3.80 - 9.90 K/cumm Hgb [...] RDW SD 39.2 35.7 - 48.1 fL [facility] ([place]) NRBC abs 0.00 0.00 - 0.01 K/cumm [facility] Blood 08/05/2025 6:06 PM TRANSPORTATION DESIGN ENGINEER 08/05/2025 6:14 PM TRANSPORTATION DESIGN ENGINEER Emely Keys SAMPLE TESTER GRINDER LAB BLOOD ORDERABLES Final Re sult Performing Organization Address City/[facility]/ZIP Co de Phone Number [facility] ([place]) 1 [facility] [place] [address] * Lipase (08/05/2025 6:06 PM TRANSPORTATION DESIGN ENGINEER) Pathologist [facility] Lipase 24 10 - 99 Units/L Blood 08/05/2025 6:06 PM TRANSPORTATION DESIGN ENGINEER 08/05/2025 6:14 PM TRANSPORTATION DESIGN ENGINEER Emely Keys SAMPLE TESTER GRINDER LAB BLOOD ORDERABLES Final Re sult Performing Organization Address [facility] de Phone Number [facility] ([place]) 1 [facility] [place] [address] * (ABNORMAL) Comprehensive metabolic panel (08/05/2025 6:06 PM TRANSPORTATION DESIGN ENGINEER) Pathologist [facility] Sodium 137 135 - 145 mmol/L Potassium, pl 4.4 3.3 - 4.9 mmol/L [facility] ([place]) Chloride 104 97 - 110 mmol/L [facility] ([place]) CO2 24 22 - 32 mmol/L [facility] Anion gap 9 2 - 15 mmol/L [facility] ([place]) BUN 14 6 - 25 mg/dL [facility] ([place]) Creatinine 0.74 0.60 - 1.10 mg/dL [facility] Glucose 116 70 - 199 mg/dL [facility] ([place]) Comment: Interpretive Data Fasting glucose [...] [facility]) Blood 08/05/2025 6:06 PM TRANSPORTATION DESIGN ENGINEER 08/05/2025 6:14 PM TRANSPORTATION DESIGN ENGINEER us Emely Keys SAMPLE TESTER GRINDER LAB BLOOD ORDERABLES Final Re sult [facility] ([place]) 1 [facility] [employer] [place] [place] [address] * POCT glucose (07/31/2025 8:42 PM TRANSPORTATION DESIGN ENGINEER) Glucose, POC 96 70 - 199 mg/dL Blood 07/31/2025 8:42 PM TRANSPORTATION DESIGN ENGINEER 07/31/2025 8:42 PM TRANSPORTATION DESIGN ENGINEER us Notinfile Unknown LAB POCT ORDERABLES - DEVICE F inal Result [facility] ([place]) 1 [facility] [employer] [place] [address] * Sepsis Lactate w/ Reflex (07/31/2025 8:40 PM TRANSPORTATION DESIGN ENGINEER) Sepsis Lactate 0.7 0.7 - 2.0 mmol/L Blood 07/31/2025 8:40 PM TRANSPORTATION DESIGN ENGINEER 07/31/2025 8:44 PM TRANSPORTATION DESIGN ENGINEER us Kathi LI LAB BLOOD ORDERABLES Final Resu lt [facility] ([place]) 1 [facility] Department of Laboratories [place], [place] [id number] * CT Abdomen Pelvis W Contrast (07/31/2025 7:11 PM TRANSPORTATION DESIGN ENGINEER) Anatomical Region Laterality Modality Body N/A Computed Tomogra phy 07/31/2025 7:28 PM TRANSPORTATION DESIGN ENGINEER Impressions 07/31/2025 7:28 PM TRANSPORTATION DESIGN ENGINEER 1. No acute inflammatory change of the [...] Ghulam Ahmadi M.D. Narrative 07/31/2025 7:28 PM TRANSPORTATION DESIGN ENGINEER EXAMINATION: CT ABDOMEN PELVIS W CONTRAST HISTORY: [...] microscopic and culture Urine (07/31/2025 7:04 PM TRANSPORTATION DESIGN ENGINEER) Color, ur Yellow Yellow Clarity, ur Clear [...] tendency for uric acid stone formation. Source: [email or web address] Current Interpretive Data was last revised on [...] Reflex to microscopic UA will be performed. [facility] ([place]) Urine 07/31/2025 7:04 PM TRANSPORTATION DESIGN ENGINEER 07/31/2025 7:17 PM TRANSPORTATION DESIGN ENGINEER Rox Amos MD LAB MICROBIOLOGY - GENERAL ORDERABLES Final Result Performing Organization Address City/[facility]/ZIP Co de Phone Number [facility] ([place]) [address] [facility] [employer] [place] [address] * (ABNORMAL) Urinalysis, microscopic only (07/31/2025 7:04 PM TRANSPORTATION DESIGN ENGINEER) WBC, ur 0-5 0 - 5 /HPF RBC, ur 0-2 0 - 2 /HPF [facility] ([place]) Epithelial cells, squamous, ur 6-10(A) 0 - 5 /HPF [facility] ([place]) Bacteria, ur 1+(A) [facility] ([place]) Mucous, ur Present(A) [facility] ([place]) Culture Reflex Comment Reflex conditions for urine culture (WBC >10) not met. [facility] ([place]) Urine 07/31/2025 7:04 PM TRANSPORTATION DESIGN ENGINEER 07/31/2025 7:17 PM TRANSPORTATION DESIGN ENGINEER Rox Amos MD LAB URINE ORDERABLE S Final Result [facility] ([place]) [address] [facility] [employer] [place], [place] [id number] * eGFR (07/31/2025 5:15 PM TRANSPORTATION DESIGN ENGINEER) eGFR >90 >=60 mL/min/1. 73 m2 Comment: [...] last reviewed 2021. Blood 07/31/2025 5:15 PM TRANSPORTATION DESIGN ENGINEER 07/31/2025 5:20 PM TRANSPORTATION DESIGN ENGINEER us Rox Amos MD LAB BLOOD ORDERABLE S Final Result [facility] ([place]) [address] [facility] Department [place] [address] * Differential, auto (07/31/2025 5:15 PM TRANSPORTATION DESIGN ENGINEER) Neutrophil abs 3.58 1.50 - 6.50 K/cumm [...] revised on 2017. Blood 07/31/2025 5:15 PM TRANSPORTATION DESIGN ENGINEER 07/31/2025 5:20 PM TRANSPORTATION DESIGN ENGINEER us Rox Amos MD LAB BLOOD ORDERABLE S Final Result [facility] ([place]) [address] [facility] Department [place] [address] * (ABNORMAL) CBC with auto differential (07/31/2025 5:15 PM TRANSPORTATION DESIGN ENGINEER) WBC 6.59 3.80 - 9.90 K/cumm Hgb 10.9(L) 11.9 - 15.5 g/dL [facility] ([place]) Hct 34.1(L) 35.6 - 45.5 % [facility] ([place]) Plt 256 150 - 400 K/cumm [facility] ([place]) MPV 9.5 9.1 - 12.3 fL [facility] ([place]) RBC 4.10 3.90 - 5.20 M/cumm [facility] ([place]) MCV 83.2 81.3 - 96.4 fL [facility] MCH 26.6(L) 27.1 - 33.3 pg [facility] ([place]) MCHC 32.0(L) 32.3 - 35.7 g/dL [facility] ([place]) RDW CV 13.1 11.1 - 14.9 % [facility] RDW SD 39.4 35.7 - 48.1 fL [facility] NRBC abs 0.00 0.00 - 0.01 K/cumm [facility] Blood 07/31/2025 5:15 PM TRANSPORTATION DESIGN ENGINEER 07/31/2025 5:20 PM TRANSPORTATION DESIGN ENGINEER Rox Amos MD LAB BLOOD ORDERABLE S Final Result Performing Organization Address City/[facility]/ZIP Co de Phone Number [facility] ([place]) [address] [facility] [employer] [place] [address] * Lipase (07/31/2025 5:15 PM TRANSPORTATION DESIGN ENGINEER) Pathologist [facility] Lipase 18 10 - 99 Units/L Blood 07/31/2025 5:15 PM TRANSPORTATION DESIGN ENGINEER 07/31/2025 5:20 PM TRANSPORTATION DESIGN ENGINEER Rox Amos MD LAB BLOOD ORDERABLE S Final Result Performing Organization Address City/[facility] Co de Phone Number [facility] ([place]) 1 [facility] [place] [address] * (ABNORMAL) Comprehensive metabolic panel (07/31/2025 5:15 PM TRANSPORTATION DESIGN ENGINEER) Pathologist [facility] Sodium 138 135 - 145 mmol/L Potassium, pl 4.1 3.3 - 4.9 mmol/L [facility] ([place]) Chloride 105 97 - 110 mmol/L [facility] ([place]) CO2 24 22 - 32 mmol/L [facility] ([place] Anion gap 9 2 - 15 mmol/L [facility] ([place]) BUN 10 6 - 25 mg/dL [facility] ([place]) Creatinine 0.76 0.60 - 1.10 mg/dL [facility] ([place]) Glucose 109 70 - 199 [...] [facility]) Blood 07/31/2025 5:15 PM TRANSPORTATION DESIGN ENGINEER 07/31/2025 5:20 PM TRANSPORTATION DESIGN ENGINEER us Rox Amos MD LAB BLOOD ORDERABLE S Final Result [facility] ([place]) [address] [facility] Department [place] [address] * XR Elbow Right 2 Views (07/23/2025 5:44 PM TRANSPORTATION DESIGN ENGINEER) Anatomical Region Laterality Modality Upper Extremities, Elbow Right Compute d Radiography 07/23/2025 5:45 PM TRANSPORTATION DESIGN ENGINEER Narrative 07/23/2025 5:45 PM TRANSPORTATION DESIGN ENGINEER Infiltrate Electronically signed by: Ghulam Ahmadi M.D. Procedure Note Ghulam Ahmadi MD - 07/23/2025 Infiltrate Electronically signed by: Ghulam Ahmadi M.D. us Yolande LI IMG XR PROCEDURES Final R esult * (ABNORMAL) Urinalysis reflex to microscopic and culture Urine (07/23/2025 5:19 PM TRANSPORTATION DESIGN ENGINEER) Color, ur Straw Yellow Clarity, ur Clear [...] tendency for uric acid stone formation. Source: [facility] [employer] Current Interpretive Data was last revised on [...] [facility] ([place]) Urine 07/23/2025 5:19 PM TRANSPORTATION DESIGN ENGINEER 07/23/2025 5:22 PM TRANSPORTATION DESIGN ENGINEER us Rox Amos MD LAB MICROBIOLOGY - GENERAL ORDERABLES Final Result [facility] ([place]) [address] [facility] Department [place] [address] * (ABNORMAL) Urinalysis, microscopic only (07/23/2025 5:19 PM TRANSPORTATION DESIGN ENGINEER) [facility] WBC, ur 0-5 0 - 5 /HPF RBC, ur 0-2 0 - 2 /HPF [facility] ([place]) Epithelial cells, squamous, ur 1-5 0 - 5 /HPF [facility] ([place]) Bacteria, ur 1+(A) [facility] ([place]) Culture Reflex Comment Reflex conditions for urine culture (WBC >10) not met. [facility] ([place]) Urine 07/23/2025 5:19 PM TRANSPORTATION DESIGN ENGINEER 07/23/2025 5:22 PM TRANSPORTATION DESIGN ENGINEER Rox Amos MD LAB URINE ORDERABLE S Final Result [facility] ([place]) [address] [place] [address] * POCT glucose (07/23/2025 5:18 PM TRANSPORTATION DESIGN ENGINEER) [facility] Glucose, POC 101 70 - 199 mg/dL Blood 07/23/2025 5:18 PM TRANSPORTATION DESIGN ENGINEER 07/23/2025 5:18 PM TRANSPORTATION DESIGN ENGINEER Notinfile Unknown LAB POCT ORDERABLES - DEVICE F inal Result Performing Organization Address City/[facility]/ZIP Co de Phone Number [facility] ([place]) [address] [place] [address] * eGFR (07/23/2025 3:51 PM TRANSPORTATION DESIGN ENGINEER) [facility] eGFR >90 >=60 mL/min/1. 73 m2 Comment: [...] last reviewed 2021. Blood 07/23/2025 3:51 PM TRANSPORTATION DESIGN ENGINEER 07/23/2025 3:54 PM TRANSPORTATION DESIGN ENGINEER us Rox Amos MD LAB BLOOD ORDERABLE S Final Result [facility] ([place]) 1 [facility] Department [place] [address] * Differential, auto (07/23/2025 3:51 PM TRANSPORTATION DESIGN ENGINEER) Neutrophil abs 4.22 1.50 - 6.50 K/cumm [...] revised on 2017. Blood 07/23/2025 3:51 PM TRANSPORTATION DESIGN ENGINEER 07/23/2025 3:54 PM TRANSPORTATION DESIGN ENGINEER us Rox Amos MD LAB BLOOD ORDERABLE S Final Result [facility] ([place]) 1 [facility] Department [place] [address] * (ABNORMAL) CBC with auto differential (07/23/2025 3:51 PM TRANSPORTATION DESIGN ENGINEER) WBC 6.93 3.80 - 9.90 K/cumm Hgb [...] RDW CV 12.8 11.1 - 14.9 % [facility] ([place]) RDW SD 38.6 35.7 - 48.1 fL [facility] ([place]) NRBC abs 0.00 0.00 - 0.01 K/cumm [facility] ([place]) Blood Venous blood specimen / Unknown 07/23/2025 3:51 PM TRANSPORTATION DESIGN ENGINEER 07/23/2025 3:54 PM TRANSPORTATION DESIGN ENGINEER Rox Amos MD LAB BLOOD ORDERABLE S Final Result [facility] ([place] 1 [facility] [place] [address] * Lipase (07/23/2025 3:51 PM TRANSPORTATION DESIGN ENGINEER) [facility] Lipase 31 10 - 99 Units/L Blood Venous blood specimen / Unknown 07/23/2025 3:51 PM TRANSPORTATION DESIGN ENGINEER 07/23/2025 3:54 PM TRANSPORTATION DESIGN ENGINEER Rox Amos MD LAB BLOOD ORDERABLE S Final Result [facility] ([place]) 1 [facility] [place] [address] * (ABNORMAL) Comprehensive metabolic panel (07/23/2025 3:51 PM TRANSPORTATION DESIGN ENGINEER) Pathologist [facility] Sodium 134(L) 135 - 145 mmol/L Potassium, pl 4.5 3.3 - 4.9 mmol/L [facility] ([place] Chloride 103 97 - 110 mmol/L [facility]) CO2 25 22 - 32 mmol/L [facility] ([place] Anion gap 6 2 - 15 mmol/L [facility] ([place]) BUN 13 6 - 25 mg/dL [facility] ([place]) Creatinine 0.76 0.60 - 1.10 mg/dL [facility] ([place]) Glucose 107 70 - 199 mg/dL [facility] ([place] [...] [facility] ([place]) Blood 07/23/2025 3:51 PM TRANSPORTATION DESIGN ENGINEER 07/23/2025 3:54 PM TRANSPORTATION DESIGN ENGINEER us Rox Amos MD LAB BLOOD ORDERABLE S Final Result [facility] ([place] 1 [facility] Department [place] [address] * Troponin T high-sensitivity 2-hour (07/13/2025 8:01 AM CDT) Trop T hs 7 <=14 ng/L Comment: Interpretive Data For further hscTnT resources including the diagnostic algorithm and an aid in interpretation, copy and paste this link: https://nrl.testcatalog.org/show/hsTrop Current Interpretive Data last revised 2020. Trop T hs delta -1 ng/L [facility] ([place]) Trop T hs interp Insignificant [facility] ([place]) Blood 07/13/2025 8:01 AM CDT 07/13/2025 8:05 AM CDT us Yves Andre MD LAB BLOOD ORDERABLE S Final Result [facility] ([place]) 1 [facility] Department [place] [address] * XR Chest 1 View (07/13/2025 6:42 [...] 12 lead (07/13/2025 6:26 AM CDT) 07/13/2025 6:2 6 AM CDT Narrative [facility] - 07/13/2025 8:13 AM CDT Vent Rate: 70 bpm RR Interval: 851 msec MI Interval: 165 msec QRS Duration: 94 msec QT Interval: 377 msec QTC Interval: 398 msec P-R-T [place]: 80 - -8 - 70 degrees IMPRESSION: SINUS RHYTHM NORMAL ECG Electronically Signed By: Wm De La Garza MD Yves Andre MD ECG ORDERABLES Fin al Result [facility] * Troponin T high-sensitivity series (baseline, 2hr, [...] ORDERABLE S Final Result Performing Organization Address City/[facility]/ZIP Co de Phone Number [facility] ([address] Department of Laboratories [place] [phone] * eGFR (07/13/2025 6:24 AM CDT) eGFR [...] BLOOD ORDERABLE S Final Result [facility] ([place]) 1 [facility] Department [place] [address] * Differential, auto (07/13/2025 6:24 AM CDT) Neutrophil abs 3.80 1.50 - 6.50 K/cumm Imm gran abs 0.02 0.00 - 0.10 K/cumm [facility] ([place]) Lymphocyte abs 1.84 0.80 - 3.30 K/cumm [facility] ([place]) Monocyte abs 0.59 0.20 - 0.80 K/cumm [facility] ([place]) Eosinophil abs 0.28 0.00 - 0.50 K/cumm [facility] ([place]) Basophil abs 0.06 0.00 - 0.10 K/cumm [...] S Final Result [facility] ([place]) 1 [facility] Department [place] [address] * (ABNORMAL) CBC with auto differential (07/13/2025 [...] S Final Result [facility] ([place]) 1 [facility] Department [place] [address] * (ABNORMAL) Comprehensive metabolic panel (07/13/2025 6:24 [...] S Final Result [facility] ([place]) 1 [facility] Department [place] [address] * CT Abdomen Pelvis W Contrast (07/07/2025 [...] signed by: Abdulkadir Weiss M.D. Elaine LI [facility] CT PROCEDURES Final Result * eGFR (07/07/2025 [...] BLOOD ORDERABLES Final Resu lt [facility] ([place]) 1 [facility] Department [place] [address] * Differential, auto (07/07/2025 12:53 PM CDT) Neutrophil abs 3.85 1.50 - 6.50 K/cumm Imm gran abs 0.02 0.00 - 0.10 K/cumm [facility] ([place]) Lymphocyte abs 1.56 0.80 - 3.30 K/cumm [facility] ([place]) Monocyte abs 0.45 0.20 - 0.80 K/cumm [facility] ([place]) Eosinophil abs 0.20 0.00 - 0.50 K/cumm [facility] ([place]) Basophil abs 0.06 0.00 - 0.10 K/cumm [facility] ([place]) Neutrophil pct 62.7 % [facility] ([place]) Comment: Interpretive Data Percent cell count reference ranges are not reported, since discordance with absolute values may lead to misinterpretation of CBC data. Current Interpretive Data was last revised on 2017. Imm gran pct 0.3 % [facility] ([place]) Comment: Interpretive Data Percent cell count reference [...] 2017. Monocyte pct 7.3 % [facility] ([place]) Comment: Interpretive Data Percent cell count reference ranges are not reported, since discordance with absolute values may lead to misinterpretation of CBC data. Current Interpretive Data was last revised on 2017. Eosinophil pct 3.3 % [facility] ([place]) Comment: Interpretive Data Percent cell count reference ranges are not reported, since discordance with absolute values may lead to misinterpretation of CBC data. Current Interpretive Data was last revised on 2017. Basophil pct 1.0 % [facility] ([place]) Comment: Interpretive Data Percent cell count reference ranges are not reported, since discordance with absolute values may lead to misinterpretation of CBC data. Current Interpretive Data was last revised on 2017. Blood 07/07/2025 12:5 3 PM CDT 07/07/2025 12:56 PM CDT us Elaine LI LAB BLOOD ORDERABLES Final Resu lt [facility] ([place]) 1 [facility] Department of Laboratories [place], [place] [id number] * Urinalysis reflex to microscopic and culture Urine (07/07/2025 12:53 PM CDT) Color, ur Straw Yellow Clarity, ur Clear Clear [facility] ([place]) Specific gravity, ur 1.006 1.003 - [...] tendency for uric acid stone formation. Source: [facility] [employer] Current Interpretive Data was last revised on [...] RABLES Final Result [facility] ([place]) 1 [facility] Department [place] [address] * (ABNORMAL) CBC with auto differential (07/07/2025 [...] Final Resu lt [facility] ([place]) 1 [facility] [place] [address] * Magnesium (07/07/2025 12:53 PM CDT) Pathologist [facility] Magnesium 1.8 1.4 - 2.5 mg/dL Blood 07/07/2025 12:5 3 PM CDT 07/07/2025 12:56 PM CDT Elaine LI LAB BLOOD ORDERABLES Final Resu lt [facility] ([place]) 1 [facility] Department [place] [address] * Lipase (07/07/2025 12:53 PM CDT) [facility] Lipase 22 10 - 99 Units/L Blood 07/07/2025 12:5 3 PM CDT 07/07/2025 12:56 PM CDT Elaine LI LAB BLOOD ORDERABLES Final Resu lt Performing Organization Address City/[facility]/ZIP Co de Phone Number [facility] ([place]) 1 [facility] [place] [place] [address] * (ABNORMAL) Comprehensive metabolic panel (07/07/2025 12:53 PM CDT) [facility] Sodium 138 135 - 145 mmol/L Potassium, pl 4.2 3.3 - 4.9 mmol/L [facility] ([place]) Chloride 104 97 - 110 mmol/L [facility] ([place]) CO2 23 22 - 32 mmol/L [facility] ([place]) Anion gap 11 2 - 15 mmol/L [facility] ([place]) BUN 10 6 - 25 mg/dL [facility] ([place]) Creatinine 0.74 0.60 - 1.10 mg/dL [facility] ([place]) Glucose 192 70 - 199 mg/dL [facility] ([place]) Comment: Interpretive Data Fasting glucose [...] 3.8 3.5 - 5.0 g/dL [facility] ([place]) Alk phos 151(H) 40 - 130 Units/L [facility] ([place]) ALT 23 7 - 45 Units/L [facility] ([place]) AST 29 10 - 45 Units/L [facility] ([place]) Blood 07/07/2025 12:5 3 PM CDT 07/07/2025 12:56 PM CDT us Elaine LI LAB BLOOD ORDERABLES Final Resu lt [facility] ([place]) 1 [facility] Department [place] [address] * (ABNORMAL) Urinalysis reflex to microscopic and culture Urine (06/25/2025 10:46 PM CDT) Color, ur Yellow Yellow Clarity, ur Turbid(A) Clear [facility] ([place]) Specific gravity, ur 1.023 1.003 - [...] tendency for uric acid stone formation. Source: [facility] [employer] Current Interpretive Data was last revised on [...] GENERAL ORDERABLES Final Result Performing Organization Address [facility] Co de Phone Number [facility] ([place]) 1 [facility] [place] [address] * (ABNORMAL) Urinalysis, microscopic only (06/25/2025 10:46 [...] ORDERA BLES Final Result Performing Organization Address [facility] Co de Phone Number [facility] ([place]) 1 [facility] [place] [address] * Urine culture Urine (06/25/2025 10:46 PM CDT) Report Final Report: Less than 100,000 colonies/mL (clinically insignificant growth based on current clinical standards) Comment:Testing performed by : [facility], [address] [facility], [place]., [address] Organism (CLINICALLY INSIGNIFICANT GROWTH [facility] ([place]) Urine 06/25/2025 10:4 6 PM CDT 06/26/2025 1:36 AM CDT Narrative [facility] ([place]) - 06/27/2025 2:27 AM CDT Urine culture reflexed based upon urinalysis results. Testing performed by 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 Pt. Stated pain mainly at RUQ down to RLQ. Pt. 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 TECHNIQUE: CT scan of the abdomen and [...] Yves Rodriguez M.D. AR: SOFY Report ID: [id number] Reading Location: [id number] Procedure Note Yves Rodriguez MD - 06/25/2025 EXAM DESCRIPTION: CT ABDOMEN PELVIS WO CONTRAST REASON FOR STUDY: Abdominal pain CC of abdominal pain associated with nausea and vomiting with diarrhea.Known case of DM type 2 and hypertension. 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 Stated pain mainly at RUQ down to RLQ. Pt. 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 TECHNIQUE: CT scan of the abdomen and [...] Yves Rodriguez M.D. AR: SOFY Report ID: [id number] Reading Location: [place] [address] Rox Amos MD IMG CT PROCEDURES F [...] LAB BLOOD ORDERA BLES Final Result [facility] ([place]) 1 [facility] Department [place] [address] * Differential, auto (06/25/2025 9:07 PM CDT) Neutrophil abs 5.17 1.50 - 6.50 K/cumm Imm gran abs 0.02 0.00 - 0.10 K/cumm [facility] ([place]) Lymphocyte abs 1.83 0.80 - [...] BLES Final Result [facility] ([place]) 1 [facility] Department [place] [address] * (ABNORMAL) CBC with auto differential (06/25/2025 [...] BLES Final Result [facility] ([place]) 1 [facility] Department [place] [address] * Lipase (06/25/2025 9:07 PM CDT) Pathologist [facility] Lipase 23 10 - 99 Units/L Blood 06/25/2025 9:07 PM CDT 06/25/2025 9:09 PM CDT [facility] LAB BLOOD ORDERA BLES Final Result [facility] ([place]) 1 [facility] Department [place] [address] * (ABNORMAL) Comprehensive metabolic panel (06/25/2025 9:07 [...] BLOOD ORDERA BLES Final Result [facility] [place] [facility] Department of Laboratories [place], [place] [id number] from Last 3 Months Insurance MEDICARE IDPA [employer] [facility] MEDIC[facility] ADVANTAGE [facility] Address: [address] [address] [place] [address] IDPA [facility] MEDICARE ADVANTAGE [facility] Address: [address] [address] [place] [address] Care Teams Machine Plug Shaper Relationship Specialty Start Date End Date Brissa Tijerina MD [address] [place] [address] PCP - General Family Medicine 07/13/25
--- OUTSIDE RECORDS SUMMARY | 2025-08-18 16:20 | XMS_ITS | Clinical Summary ---
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
[2025-08-18] MEDS: SODIUM CHLORIDE 0.9% IV 1,000 ML 999 ML IV CONT (16:48)
[2025-08-18 16:59] LABS: Hematocrit 35.0 % (37.0-47.0); Hemoglobin 10.9 g/dL (12.0-15.0); Immature Granulocyte Percent A 0.3 % (0-0.5); Lymphocytes Absolute Auto 1.55 K/mm3 (0.9-3.2); Mean Corpuscular HGB Conc 31.1 g/dl (32-36); Mean Corpuscular Hemoglobin 25.9 pg (26-34); Mean Corpuscular Volume 83.1 fl (80-100); Nucleated Red Blood Cells Absolute Auto 0.000 K/mm3 (0.0-0.012); Nucleated Red Blood Cells Perc 0.0 % (0.0-0.2); Platelet Count Result 221 k/mm3 (150-375); Red Blood Count 4.21 M/mm3 (4.2-5.4); White Blood Count 6.0 K/mm3 (4.5-10.0)
[2025-08-18 17:10] LABS: Alanine Aminotransferase 24 U/L (6-35); Albumin Level 3.9 g/dL (3.5-5.1); Alkaline Phosphatase 139 U/L (38-126); Anion Gap 3 mmol/L (4-12); Aspartate Amino Transferase 49 U/L (14-36); Bilirubin,Total 0.6 mg/dL (0.2-1.3); Blood Urea Nitrogen 13 mg/dL (7-17); Calcium 9.4 mg/dL (8.4-10.2); Carbon Dioxide 24 mmol/L (22-30); Chloride 109 mmol/L (98-107); Estimated CRCL calculation 90 ml/min; Estimated Glomerular Filt Rate > 60; Glucose 108 mg/dL (65-110); Lipase 61 U/L (23-300); Potassium 4.6 mmol/L (3.4-5.0); Sodium 136 mmol/L (137-145); Total Protein 7.4 g/dL (6.3-8.2)
[2025-08-18 17:51] LABS: Add Urine Microscopic? YES; Appearance Urine Clear (Clear); Glucose Urine UA Negative (Negative); Leukocyte Esterase Ur 1+ LEU/UL (Negative); Need Manual Microscopic Reviewed; Nitrate Urine Negative (Negative); Non Pathogenic Casts 0-2; Specific Grav Ur 1.010 (1.001-1.035)
--- NOTE | 2025-08-18 17:52 | PC.NURSE ---
Patient ambulated to restroom with steady gate
--- NOTE | 2025-08-18 17:53 | ED.ABDPAIN ---
HPI - Abdominal Pain General Chief Complaint: Abdominal Pain Stated Complaint: abd pain Time Seen by Provider: 08/18/25 15:28 Source: patient Mode of arrival: ambulatory Limitations: no limitations History of Present Illness HPI narrative: Patient is a 54-year-old female, with PMH of cholecystectomy/appendectomy, who presents the ED with report of abdominal pain. Reports having worsening pain throughout her lower abdomen and right-sided abdomen since Thursday. Reports nausea, vomiting, diarrhea. Patient reports history of gastroparesis, IBS. States this feels typical of her previous pain. Is frequently seen in the ED for similar symptoms. Is currently taking Bentyl 3 times a day, Zofran. States she is no longer able to tolerate Reglan. Also reports she intermittently takes anti-inflammatories. Took a leftover [place] today without improvement. Denies rectal bleeding or melena, fevers. Related Data Home Medications ?Medication ?Instructions ?Recorded ?Confirmed ?Last Taken ?Type amlodipine 5 mg tablet 5 mg PO DAILY@79905/13/25 06/02/25 Unknown History atorvastatin 80 mg tablet 80 mg PO DAILY@79905/13/25 06/02/25 Unknown History blood-glucose sensor (Dexcom G7 05/13/25 05/13/25 Unknown History Sensor device) carvedilol 12.5 mg tablet 12.5 mg PO BID 05/13/25 06/02/25 05/13/25 09:30 History 12.5 mg dicyclomine 20 mg tablet 20 mg PO BID 05/13/25 06/02/25 05/13/25 09:30 History 20 mg erenumab-aooe 70 mg/mL 70 mg subcut MONTHLY 05/13/25 06/02/25 04/23/25 History subcutaneous auto-injector (Aimovig Autoinjector) hydroxyzine HCl 25 mg tablet 25 mg PO HS 05/13/25 06/02/25 05/12/25 22:30 History 50 mg insulin lispro 100 unit/mL 1 sliding scale dose continuous 05/13/25 06/02/25 05/13/25 18:50 History subcutaneous solution (Humalog subcutaneous infusion PRN PRN 6.3 U-100 Insulin) hyperglycemia insulin pump cart,auto,BT,G6/7 05/13/25 05/13/25 Unknown History (Omnipod 5 G6-G7 Pods (Gen 5) subcutaneous cartridge) methocarbamol 500 mg tablet 500 mg PO HS 05/13/25 06/02/25 05/12/25 22:30 History 500 mg pantoprazole 40 mg tablet,delayed 40 mg PO HS 05/13/25 06/02/25 05/12/25 22:30 History release 40 mg ropinirole 0.25 mg tablet 0.75 mg PO HS PRN restless leg(s) 05/13/25 06/02/25 05/08/25 22:00 History 0.75 mg venlafaxine 150 mg 150 mg PO QPM 05/13/25 06/02/25 05/12/25 22:30 History capsule,extended release 24 hr 150 mg Allergies Allergy/AdvReac Type Severity Reaction Status Date / Time prochlorperazine Allergy Intermediate Agitated Verified 08/18/25 15:09 clarithromycin Allergy Mild VIOLENTLY Verified 08/18/25 15:09 ILL WITH VOMITING sumatriptan Allergy Mild POUNDING Verified 08/18/25 15:09 HR, DIFFICULTY BREATHING metoclopramide AdvReac Intermediate Jittery Verified 08/18/25 15:09 diphenhydramine AdvReac Unknown GOES Verified 08/18/25 15:09 DAVIAN Review of Systems Review of Systems: All systems reviewed & are unremarkable except as noted in HPI. 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 Diabetes mellitus Hypertension Arthritis Asthma Surgical History Surgical History H/O cardiac catheterization Social History Social History Smoking status: Never smoker Smokeless tobacco user: snus Alcohol intake: never Lack of Transportation: No Lack of Food: Never True Current Housing: I Have Housing Concerned About Future Housing: No Difficulty Paying Gas/Electric Bills: No Difficulty Paying for Meds: No Currently Unemployed: No Education: Don't Know Difficulty w/ Childcare or Family Care: No Spiritual care concerns: No Exam Narrative: GENERAL: Well appearing, morbidly obese with BMI of 43.5, non-toxic, in no acute distress. HEAD: Normocephalic, atraumatic. RESPIRATORY: Airway patent, respirations nonlabored. Clear to auscultation bilaterally, no rales, rhonchi, wheezing. CARDIOVASCULAR: Regular rate and rhythm without murmurs, rubs, or gallops. ABDOMINAL: Soft, mild diffuse tenderness throughout lower abdomen and right upper quadrant, no rebound, nondistended. Normoactive BS. MUSCULOSKELETAL: Moves all extremities. No gross deformities. SKIN: Warm, dry, normal color. NEURO: A&O X3. Speech clear. Cranial nerves II-XII grossly intact. Steady gait. No ataxic movements. PSYCHIATRIC: Appropriate mood and affect. Normal interaction. Course Vital Signs Vital signs: Vital Signs Temperature 97.2 F L 08/18/25 15:07 Pulse Rate 73 08/18/25 15:07 Respiratory Rate 16 08/18/25 15:07 Blood Pressure 179/71 H 08/18/25 15:07 Pulse Oximetry 98 08/18/25 15:07 Temperature 97.2 F L 08/18/25 15:07 Pulse Rate 74 08/18/25 17:37 Respiratory Rate 25 H 08/18/25 17:37 Blood Pressure 116/69 08/18/25 17:37 Pulse Oximetry 99 08/18/25 17:37 [facility] Narrative Medical decision making narrative: Patient presented to ED with acute on chronic abdominal pain, history of IBS and gastroparesis. Seen in our hospital numerous times for similar symptoms in the past. Vital signs stable upon arrival. Patient in no acute distress. Given pain control. Laboratory studies without leukocytosis. Chronic mild anemia, consistent with previous records. Stable electrolytes. Stable kidney function. Grossly normal LFTs and lipase. UA with 1+ leuk esterase, otherwise no evidence of infection. CT scan of abdomen/pelvis was obtained: Without acute abnormalities. Does show incidental cystic lesion of liver - exophytic cyst vs choledochal cyst vs biloma IMPRESSION: 1. No acute intra-abdominal process. 2. Cystic lesion detailed above possibly an exophytic liver cyst however a choledochal cyst is not excluded. This finding is new compared to the previous study, possibility of a biloma is not excluded. Clinical correlation required. Contrast-enhanced MRI is recommended Discussed these findings with Dr. Maguire, GI, recommended outpatient MRI. Given the liver enzymes are normal, unlikely that this is cause of patient's pain. Discussed lab and imaging findings with patient, overall non revealing workup. Feel symptoms likely related to chronic abdominal pain/conditions. Patient safe for discharge home at this time, recommended to continue medications at home, close follow-up with GI for further evaluation. Given strict return precautions. Discharged in stable condition. Differential Diagnosis Differential Diagnosis: Gastroparesis, IBS, constipation, bowel obstruction, diverticulitis, colitis Medical Records I have reviewed the following patient records and this information was taken into consideration when formulating the assessment and plan.: previous labs, previous ER visits, previous hospitalizations and previous clinic visits Lab Data MDM Lab Attestation statement: I personally reviewed the patient's lab results. 08/18/25 16:50 08/18/25 16:50 Labs: Lab Results 08/18/25 Range/Units 16:50 WBC 6.0 (4.5-10.0) K/mm3 RBC 4.21 (4.2-5.4) M/mm3 Hgb 10.9 L (12.0-15.0) g/dL Hct 35.0 L (37.0-47.0) % MCV 83.1 (80-100) fl MCH 25.9 L (26-34) pg MCHC 31.1 L (32-36) g/dl RDW 13.3 (11.5-14.5) % Plt Count 221 (150-375) k/mm3 MPV 9.2 (7.4-10.4) fl Immature Gran % (Auto) 0.3 (0-0.5) % Neut % (Auto) 61.8 (45.5-73.1) % Lymph % (Auto) 25.7 (18.3-44.2) % [place] % (Auto) 7.9 (2.6-8.5) % Eos % (Auto) 3.5 (0-4.4) % Baso % (Auto) 0.8 (0.2-1.2) % Lymph # (Auto) 1.55 (0.9-3.2) K/mm3 [place] # (Auto) 0.5 (0.1-0.6) K/mm3 Eos # (Auto) 0.2 (0-0.3) K/mm3 Baso # (Auto) 0.1 (0.0-0.1) K/mm3 Abs Immat Gran (auto) 0.02 (0.00-0.031) K/mm3 Absolute Neuts (auto) 3.7 (1.3-6.7) K/mm3 Absolute Nucleated RBC 0.000 (0.0-0.012) K/mm3 Nucleated RBC % 0.0 (0.0-0.2) % Sodium 136 L (137-145) mmol/L Potassium 4.6 (3.4-5.0) mmol/L Chloride 109 H (98-107) mmol/L Carbon Dioxide 24 (22-30) mmol/L Anion Gap 3 L (4-12) mmol/L BUN 13 (7-17) mg/dL Creatinine 0.86 (0.7-1.0) mg/dL Estim Creat Clear Calc 90 ml/min Estimated GFR > 60 (59 - ) Glucose 108 (65-110) mg/dL Calcium 9.4 (8.4-10.2) mg/dL Total Bilirubin 0.6 (0.2-1.3) mg/dL AST 49 H (14-36) U/L ALT 24 (6-35) U/L Alkaline Phosphatase 139 H (38-126) U/L Total Protein 7.4 (6.3-8.2) g/dL Albumin 3.9 (3.5-5.1) g/dL Lipase 61 (23-300) U/L Urine Color Yellow (Yellow) Urine Appearance Clear (Clear) Urine pH 7.0 (5.0-9.0) Ur Specific [place] 1.010 (1.001-1.035) Urine Protein Negative (Negative) mg/dL Urine Glucose (UA) Negative (Negative) mg/dL Urine Ketones Negative (Negative) mg/dL Ur Blood (Man) Negative (Negative) Urine Nitrate Negative (Negative) Urine Bilirubin Negative (Negative) Urine Urobilinogen 0.2 (<2.0) mg/dL Add Ur Microanalysis Reviewed Leukocyte Esterase Rfl 1+ H (Negative) NENA/UL Urine RBC 0-2 (0-2) /hpf Urine WBC 0-5 (0-3) /hpf Ur Squamous Epith Cells Few (Few) /hpf Urine Bacteria None seen /hpf Urine Casts 0-2 Imaging Data Attestation: I personally reviewed and interpreted this imaging study as follows: Radiologist's impression: ITS Impressions Abdomen/Pelvis CT 08/18/25 17:37 IMPRESSION: 1. No acute intra-abdominal process. 2. Cystic lesion detailed above possibly an exophytic liver cyst however a choledochal cyst is not excluded. This finding is new compared to the previous study, possibility of a biloma is not excluded. Clinical correlation required. Contrast-enhanced MRI is recommended Discharge Plan Discharge Clinical Impression: Chronic abdominal pain, Liver cyst Patient Disposition: Home Condition: Stable Instructions: Antibiotic Form, Abdominal Pain (ED), Gastroparesis (ED) Additional Instructions: Continue home medications. There was a cystic lesion noted of your liver on CT scan today which may require further imaging as an outpatient. Follow-up closely with your primary care doctor and/or GI specialist for further evaluation. Return to the ED for new or worsening concerns, persistent fevers, rectal bleeding or melena, unable to keep down food or drink, or any other symptoms of concern. Patient Language: Ecuadorean Prescriptions: No Action hydrocodone-acetaminophen 5-325 mg tablet 1 tablet PO Q6H PRN (Reason: pain) Qty: 10 0RF amlodipine 5 mg tablet 5 mg PO DAILY@0800 Patient Comments: had been on hold since february atorvastatin 80 mg tablet 80 mg PO DAILY@0800 Patient Comments: has been on hold since apr 20 carvedilol 12.5 mg tablet 12.5 mg PO BID (DME) Dexcom G7 Sensor Device MISCELLANEOUS Patient Comments: changed 05/12/2025 dicyclomine 20 mg tablet 20 mg PO BID Aimovig Autoinjector 70 mg/mL auto-injector 70 mg SUBCUT MONTHLY Patient Comments: took 04/23/2025 not do till 05/24/2025 hydroxyzine HCl 25 mg tablet 25 mg PO HS insulin lispro [Humalog U-100 Insulin] 100 unit/mL solution 1 sliding scale dose continuous subcutaneous infusion PRN PRN (Reason: hyperglycemia) Rx Instructions: 1 sliding scale dose via continuous subcutaneous infusion PRN; (DME) Omnipod 5 G6-G7 Pods (Gen 5) Cartridge SUBCUT methocarbamol 500 mg tablet 500 mg PO HS pantoprazole 40 mg tablet,delayed release (DR/EC) 40 mg PO HS ropinirole 0.25 mg tablet 0.75 mg PO HS PRN (Reason: restless leg(s)) venlafaxine 150 mg capsule,extended release 24hr 150 mg PO QPM Patient Comments: Dose changed on thursday aspirin [Children's Aspirin] 81 mg Tablet,Chewable 81 mg PO DAILY@0800 Qty: 30 0RF isosorbide mononitrate 60 mg Tablet Extended Release 24 Hr 60 mg PO QAM Qty: 30 1RF ondansetron 4 mg tablet,disintegrating 4 mg PO Q6H PRN (Reason: nausea and vomiting) Qty: 20 0RF Follow-up/Referrals: Breezy,Brissa Zamora MD [Primary Care Provider, Unknown] Time of Disposition: 18:53
[2025-08-18] MEDS: ONDANSETRON INJ 4 MG/2 ML VIAL IV PUSH (18:31)
[2025-08-18] MEDS: MORPHINE SULFATE (*CRX) 4 MG/ML INJ IV PUSH (18:34)
[2025-08-18] MEDS: FAMOTIDINE 20 MG/2 ML VIAL IV PUSH (18:36)
[2025-08-18] MEDS: KETOROLAC 30 MG/ML VIAL (*BKC) IV PUSH (19:26)
== END 2025-08-18 19:37 | disposition home or self-care (01) ==
PROVIDERS: Emergency Medicine; Emergency Provider Physician Assistant; PCP Family Medicine
DX: K76.89 Other specified diseases of liver (principal); R10.30 Lower abdominal pain, unspecified; G89.29 Other chronic pain; E11.43 Type 2 diabetes mellitus with diabetic autonomic (poly)neuropathy; K31.84 Gastroparesis; I10 Essential (primary) hypertension; J45.909 Unspecified asthma, uncomplicated; M19.90 Unspecified osteoarthritis, unspecified site; K58.9 Irritable bowel syndrome, unspecified; Z79.899 Other long term (current) drug therapy; Z79.4 Long term (current) use of insulin; Z79.82 Long term (current) use of aspirin
CPT/HCPCS: 36415; 74177; 80053; 81001; 83690; 85025; 87086; 96361; 96374; 96375; 99284; J1885; J2270; J2405; J7030; Q9967

== ENCOUNTER 2025-09-05 19:10 | Emergency (ER) | payer MEDICARE, MEDICAID, SELFPAY ==
[2025-09-05 19:35] VITALS: BP 149/83; PULSE 87; RESP 16; TEMP 36.8; O2SAT 100
--- OUTSIDE RECORDS SUMMARY | 2025-09-05 21:27 | XMS_ITS ---
Author Organization Unknown Address [address] [place] [phone] Phone Care Team Providers Care Chief Lending Officer Name Role Phone YRN ZEPEDA Attending Unavailable CARRILLO COATS Primary Unavailable Social History Type Status Start Date End Date Code Code Syst em Smoking History Never smoker (Never Smoked) 462167047 SNOMED CT Sex Female Vital Signs Vital Sign Value Unit [place] Value [place] Unit Date/Time Recent/Initial? Code Code System Body Mass Index 43.85 kg/m2 10/24/2024 19:25 Initial 37373 -5 LOINC Systolic Blood Pressure 127 mm[Hg] [...] Saturation 96 % 2024 20:30 Most Recent 02669 -5 LOINC O2 Saturation 97 % 2024 19:25 Initial 29635 -5 LOINC Pulse 61.0 /min 10/24/2024 20:30 Most Recent 8867- 4 LOINC Pulse 67.0 /min 10/24/2024 19:25 Initial 8867- 4 LOINC Respiration 17 /min 10/24/19 20:30 Most Recent 9279- 1 LOINC Respiration 20 /min 10/24/19 19:25 Initial 9279- 1 [facility] Temperature 36.8 Alexandrea 98.3 F 10/24/19 19:25 Initial 8310- 5 [facility] Weight 127.01 kg 280.00 lbs 10/24/2024 19:25 Initial 31479 -7 [facility] Medications Medication Start Date End Date Route Frequency Dose Code Code System Medication Instructions Home Meds Lidoderm 5% Topical application Patch, Extended Release 11/02/2024 02/28/2025 1 1558509 RxNorm 1 patch daily Zofran 4MG Oral Tablet 05/03/2025 Unknown ORAL EVERY 6 HOURS 1 TABLET 320831 RxNorm TAKE 1 TABLET ORAL EVERY 6 [...] Code Syste m BIOPSY/REMOVAL LYMPH NODES completed 38137375 SNOMEDCT Problems Problem Start Date Resolved Date Status Code Code System CHRONIC NECK PAIN active 180675161148 7 SNOMED-CT DISORDER OF ROTATOR CUFF active 415908470 SNOMED-CT SPRAIN OF LEFT SHOULDER active 71730410967519100 SNOMED-CT CHRONIC BACK PAIN active 376186530 SN OMED-CT CHRONIC MIGRAINE active 391583069 SNO MED-CT DIABETES active 49603575 SNOMED-CT GASTROPARESES active 413356908 SNOMED -CT ERIKA CELL NEOPLASM active 936389852 SNOMED-CT HYPERTENSION active 07872200 SNOMED- CT DRUG SEEKING BEHAVIOR active 29941852 SNOMED-CT MALINGERING active 46224320 SNOMED-C 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 10/24/2024 resolved 67268701 SNOMED-CT Allergies and Adverse Reactions Allergy Substance Reaction Severity Start Date Concern Status Code Code System PROCHLORPERAZINE go crazy (SNOMED-CT: null) Severe Active 8704 RxNorm ISOSORBIDE MONONITRATE SOB, anxiety (SNOMED-CT: null) Active 58646 RxNorm CLARITHROMYCIN Vomiting (SNOMED-CT: 957799138) Severe Active RxNorm BENADRYL went crazy (SNOMED-CT: null) Severe Active 20340118 RxNorm IMITREX Tachycardia (SNOMED-CT: 4389325) Moderate Active 21760916 RxNorm Plan of Treatment No Data Found Encounters Encounter Diagnosis Start Date Code Code Sys tem Backache 10/24/2024 [id number] Tailored RepublicOMED-CT Personal Care Team Section
--- OUTSIDE RECORDS SUMMARY | 2025-09-05 21:27 | XMS_ITS | Clinical Summary ---
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
--- OUTSIDE RECORDS SUMMARY | 2025-09-05 21:27 | XMS_ITS ---
Author Organization Unknown Address [address] [place] [address] [phone] Phone Care Team Providers Care Vice President Fixed Income Name Role Phone ELAINE ATWOOD Registered Nurse Unavailable COLBY JONES Attending Unavailable CARRILLO COATS Primary Unavailable Results XR SHOULDER COMPLETE 2 OR GR EATER VWS LT - Completed: 12/06/2024 21:41 LOINC: [address] [address] Name: TERE ALANIS Exam: XR SHOULDER COMPLETE 2 OR GREATER VWS LT Exam Date: 12/06/2024 : 1970 Acc#: [id number] Ordering: SHADI BOWMAN Referrer: PAULY VIZCAINO EXAM [...] Emperatriz Horne M.D. AT: AT Report ID: [id number] Reading Location: [id number] Social History Type Status Start Date End Date Code Code Syst em Smoking History Never smoker (Never Smoked) 926045253 SNOMED CT Sex Female Vital Signs Vital Sign Value Unit [place] Value [place] Unit Date/Time Recent/Initial? Code Code System Body Mass Index 44.32 kg/m2 12/06/2024 19:57 Initial 76584 -5 LOINC Systolic Blood Pressure 172 mm[Hg] [...] Saturation 97 % 2024 22:40 Most Recent 80488 -5 LOINC O2 Saturation 97 % 2024 19:57 Initial 14950 -5 LOINC Pulse 84.0 /min 12/06/2024 22:40 Most Recent 8867- 4 LOINC Pulse 80.0 /min 12/06/2024 19:57 Initial 8867- 4 LOINC Respiration 20 /min 12/07/19 22:40 Most Recent 9279- 1 LOINC Respiration 20 /min 12/07/19 19:57 Initial 9279- 1 LOINC Temperature 36.4 Alexandrea 97.6 F 12/07/19 19:57 Initial 8310- 5 LOINC Weight 128.37 kg 283.00 lbs 12/06/2024 19:57 Initial 28083 -7 LOINC Medications Medication Start Date End Date Route Frequency Dose Code Code System Medication Instructions Home Meds Lidoderm 5% Topical application Patch, Extended Release 11/02/2024 02/28/2025 1 1593855 RxNorm 1 patch daily Zofran 4MG Oral Tablet 05/03/2025 Unknown ORAL EVERY 6 HOURS 1 TABLET 035993 RxNorm TAKE 1 TABLET ORAL EVERY 6 [...] Code Code System CHRONIC NECK PAIN active 144744461977 7 SNOMED-CT DISORDER OF ROTATOR CUFF active 576818812 SNOMED-CT SPRAIN OF LEFT SHOULDER active 26154847213773694 SNOMED-CT CHRONIC BACK PAIN active 749417336 SN OMED-CT CHRONIC MIGRAINE active 273138780 SNO MED-CT DIABETES active 15672556 SNOMED-CT GASTROPARESES active 209693684 SNOMED -CT ERIKA CELL NEOPLASM active 891260548 SNOMED-CT HYPERTENSION active 43958709 SNOMED- CT DRUG SEEKING BEHAVIOR active 95465358 SNOMED-CT MALINGERING active 00320146 SNOMED-C 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 10/24/2024 resolved 29130445 SNOMED-CT Allergies and Adverse Reactions Allergy Substance Reaction Severity Start Date Concern Status Code Code System PROCHLORPERAZINE go crazy (SNOMED-CT: null) Severe Active 8704 RxNorm ISOSORBIDE MONONITRATE SOB, anxiety (SNOMED-CT: null) Active 75943 RxNorm CLARITHROMYCIN Vomiting (SNOMED-CT: 402913742) Severe Active 35721 RxNorm BENADRYL went crazy (SNOMED-CT: null) Severe Active 425725 RxNorm IMITREX Tachycardia (SNOMED-CT: 1741274) Moderate Active 567219 RxNorm Plan of Treatment No Data Found Encounters Encounter Diagnosis Start Date Code Code Sys tem 12/06/2024 [id number] SNOMED-CT Personal Care Team Section
--- OUTSIDE RECORDS SUMMARY | 2025-09-05 21:27 | XMS_ITS ---
Author Organization Unknown Address [address] [place] [address] [phone] Phone Care Team Providers Care Program Rep Name Role Phone PAPO RAMOS Registered Nurse Unavailable JULIETA SHAW Attending Unavailable CARRILLO COATS Primary Unavailable Social History Type Status Start Date End Date Code Code Syst em Smoking History Never smoker (Never Smoked) 306277758 SNOMED CT Sex Female Vital Signs Vital Sign Value Unit [place] Value [place] Unit Date/Time Recent/Initial? Code Code System Body Mass Index 43.07 kg/m2 05/23/2025 17:00 Initial 28143 -5 LOINC Systolic Blood Pressure 140 mm[Hg] [...] Saturation 97 % 2024 18:35 Most Recent 54193 -5 LOINC O2 Saturation 99 % 2024 17:00 Initial 81980 -5 LOINC Pulse 74.0 /min 05/23/2025 18:35 Most Recent 8867- 4 LOINC Pulse 79.0 /min 05/23/2025 17:00 Initial 8867- 4 LOINC Respiration 21 /min 05/23/20 18:35 Most Recent 9279- 1 LOINC Respiration 18 /min 05/23/20 17:00 Initial 9279- 1 [facility] Temperature 36.9 Alexandrea 98.4 F 05/23/20 17:00 Initial 8310- 5 [facility] Weight 124.74 kg 275.00 lbs 05/23/2025 17:00 Initial 94273 -7 [facility] Medications Medication Start Date End Date Route Frequency Dose Code Code System Medication Instructions Home Meds Zofran 4MG Oral Tablet 05/03/2025 Unknown ORAL EVERY 6 HOURS 1 TABLET 288120 RxNorm TAKE 1 TABLET ORAL EVERY 6 [...] Code Code System CHRONIC NECK PAIN active 025238067010 7 SNOMED-CT DISORDER OF ROTATOR CUFF active 266692300 SNOMED-CT SPRAIN OF LEFT SHOULDER active 03509549237363025 SNOMED-CT CHRONIC BACK PAIN active 293093400 SN OMED-CT CHRONIC MIGRAINE active 999133616 SNO MED-CT DIABETES active 55324420 SNOMED-CT GASTROPARESES active 000173564 SNOMED -CT ERIKA CELL NEOPLASM active 813935355 SNOMED-CT HYPERTENSION active 84432159 SNOMED- CT DRUG SEEKING BEHAVIOR active 55568495 SNOMED-CT MALINGERING active 26705505 SNOMED-C 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 10/24/2024 resolved 73272930 SNOMED-CT Allergies and Adverse Reactions Allergy Substance Reaction Severity Start Date Concern Status Code Code System PROCHLORPERAZINE go crazy (SNOMED-CT: null) Severe Active 8704 RxNorm ISOSORBIDE MONONITRATE SOB, anxiety (SNOMED-CT: null) Active 76977 RxNorm CLARITHROMYCIN Vomiting (SNOMED-CT: 462481964) Severe Active 43100 RxNorm BENADRYL went crazy (SNOMED-CT: null) Severe Active 20340118 RxNorm IMITREX Tachycardia (SNOMED-CT: 9027379) Moderate Active 393470 RxNorm Plan of Treatment No Data Found Encounters Encounter Diagnosis Start Date Code Code Sys tem Migraine 05/23/2025 46068575 SNOMED-CT Personal Care Team Section
--- OUTSIDE RECORDS SUMMARY | 2025-09-05 21:27 | XMS_ITS ---
Author Organization Unknown Address [address] [place] [address] [phone] Phone Care Team Providers Care Spray Drier Name Role Phone PREMA Kyle Attending Unavailable CARRILLO COATS Primary Unavailable Social History Type Status Start Date End Date Code Code Syst em Smoking History Never smoker (Never Smoked) 907426807 SNOMED CT Sex Female Vital Signs Vital Sign Value Unit [place] Date/Time Recent/Initial? Code Code System Body Mass Index 42.76 kg/m2 06/11/2025 18:25 Initial 91503 -5 LOINC Systolic Blood Pressure 142 mm[Hg] [...] Saturation 97 % 2024 21:09 Most Recent 90740 -5 LOINC O2 Saturation 97 % 2024 18:25 Initial 02561 -5 LOINC Pulse 92.0 /min 06/11/2025 21:09 [...] 123.83 kg 273.00 lbs 06/11/2025 18:25 Initial 91814 -7 [facility] Medications Medication Start Date End Date Route Frequency Dose Code Code System Medication Instructions Home Meds Zofran 4MG Oral Tablet 05/03/2025 Unknown ORAL EVERY 6 HOURS 1 TABLET 623868 RxNorm TAKE 1 TABLET ORAL EVERY 6 [...] Code Code System CHRONIC NECK PAIN active 576937689900 7 SNOMED-CT DISORDER OF ROTATOR CUFF active 793482801 SNOMED-CT SPRAIN OF LEFT SHOULDER active 32186294021630808 SNOMED-CT CHRONIC BACK PAIN active 491362802 SN OMED-CT CHRONIC MIGRAINE active 276482198 SNO MED-CT DIABETES active 01377874 SNOMED-CT GASTROPARESES active 523266305 SNOMED -CT ERIKA CELL NEOPLASM active 224360347 SNOMED-CT HYPERTENSION active 45870032 SNOMED- CT DRUG SEEKING BEHAVIOR active 32261067 SNOMED-CT MALINGERING active 32310913 SNOMED-C 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 10/24/2024 resolved 49567156 SNOMED-CT Allergies and Adverse Reactions Allergy Substance Reaction Severity Start Date Concern Status Code Code System PROCHLORPERAZINE go crazy (SNOMED-CT: null) Severe Active 8704 RxNorm ISOSORBIDE MONONITRATE SOB, anxiety (SNOMED-CT: null) Active 37804 RxNorm CLARITHROMYCIN Vomiting (SNOMED-CT: 926408317) Severe Active 70914 RxNorm BENADRYL went crazy (SNOMED-CT: null) Severe Active 649321 RxNorm IMITREX Tachycardia (SNOMED-CT: 0038080) Moderate Active 339619 RxNorm Plan of Treatment No Data Found Encounters Encounter Diagnosis Start Date Code Code Sys tem Migraine, unspecified, not i ntractable, without status migrainosus 06/11/2025 SNOMED-CT Personal Care Team Section
--- OUTSIDE RECORDS SUMMARY | 2025-09-05 21:28 | XMS_ITS | Data Portability ---
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 Assessment Encounter Date Assessment Date Assessment LastModified [...] Total time spent: 19 minutes (Tracked by [employer]) [id number] Not available 07/04/2025 11:56:04 08/03/2025 08/03/2025 [...] Organization Details Last Modified Time Details Appointments Compl ete Physi radha Adult 40.ES T 2024 10:40A M Melissa Macias Not available Not available Not available Estab judy giron Patie nt 15.ES T 2024 02:00P M Kya Ferrill Not available Not available Not available Estab [...] Not available Pulm Funct ion Metha choli ne.VA O 2025 02:00P M [facility] Not available Not available Not available Estab judy giron Patie nt 15.ES T 2025 11:15A M Dr[address] Carrol Villagomez Not available Not available Not available New Patie nt Visit 10.NE W 2025 11:50A M Dr. Shital Mendes Not available Not available Not available Estab judy Brunnere nt 15.ES T 2025 01:30P M Tiffanie Painting Not available Not available Not available Estab judy Brunnere nt 15.ES T 2025 03:00P M Kya Ferrill Not available Not available Not available Estab hollylyla Brunnere nt 15.ES T 2025 02:00P M Kya Ferrill Not available Not available Not available Lab None recor ded. Referral None recor ded. Procedures None recor ded. Surgeries None recor ded. Imaging None recor ded. Medication Orders Aimov ig Autoi nject or 140 mg/mL subcu taneo us auto- injec tor 2024 025 [place], [place], [address] [place], [address], 08/31/2025 18:12:03 queti apine 25 mg table t 2024 025 [place], [address] [place] [address], [address], 08/11/2025 17:46:31 venla faxin e ER 150 mg capsu le,ex tende d relea se 24 hr 2024 025 [place], [address] [place] [address], 279[address], 08/04/2025 17:59:46 venla faxin e ER 75 mg capsu le,ex tende d relea se 24 hr 2024 025 [place], [address] [place] [address], [address], 08/04/2025 17:59:46 Crest or 20 mg table t 2024 025 [place], [address] [place] [address], 8[address], 06/28/2025 18:18:25 Patient TargetsNo targets recorded. Patient InstructionsNo instructions recorded. Reason for Referral None Reported. Results Created Date Observation Date Name Description Value Unit Range Abnormal Flag Note LastModifiedBy Organization Detail LastModifiedTime 06/07/2006/07/2025 CBC CBC Not Available [facility] [address], [address], 06/07/2025 19:14:12 06/07/20 25 06/07/2025 CBC WBC 5.9 K/uL 3.8-11 .2 Not Available [facility] [address], [address], 06/07/2025 19:14:12 06/07/20 25 06/07/2025 CBC RBC 4.18 M/uL 3.92-5 .10 Not Available [facility] [address] [place] [address], [address], 06/07/2025 19:14:12 06/07/2006/07/2025 CBC HGB 11.5 g/dL 11.8-1 5.3 low Not Available [facility] [address] [place] [address], 60[address], 06/07/2025 19:14:12 06/07/2006/07/2025 CBC HCT 35.2 % 36.5-4 4.8 low Not Available [facility] [address] [place] [address], [address], 06/07/2025 19:14:12 06/07/2006/07/2025 CBC MCV 84.2 fL 80.0-9 9.0 Not Available [facility] [address] [place] [address], [address]37, 06/07/2025 19:14:12 06/07/2006/07/2025 CBC MCH 27.5 pg 25.5-3 3.6 Not Available [facility] [address] [place] [address], [address]227, 06/07/2025 19:14:12 06/07/2006/07/2025 CBC MCHC 32.7 g/dL 32.0-3 6.0 Not Available [facility] [address] [place] [address], [address]7, 06/07/2025 19:14:12 06/07/2006/07/2025 CBC RDW-SD 39.6 fL 35.1 - 46.3 Not Available [facility] [address] [place] [address], 36440, 06/07/2025 19:14:12 06/07/2006/07/2025 CBC plt 272 K/uL 130-40 0 Not Available [facility] [address] [place] [address], [address], 06/07/2025 19:14:12 06/07/20 25 06/07/2025 CBC MPV 9.9 fL 9.3-12 .8 Not Available [facility] [address] [place] [address], 25427, 06/07/2025 19:14:12 06/07/20 25 06/07/2025 urina lysis , compl ete urinalysis, complete LOW LEVEL S OF HEMOG LOBIN IN ABSEN CE OF HEMAT URIA MAY NOT BE CLINI MARCOS SIGNI FICAN T. Not Available [facility] [address] [place] [address], [address], 06/07/2025 19:21:12 06/07/20 25 06/07/2025 urina lysis , compl ete color DARK YELLOW Dipst ick may be inacc urate due to the color of the urine Not Available [facility] [address] [place] [address], 99702, 06/07/2025 19:21:12 06/07/20 25 06/07/2025 urina lysis , compl ete clarity CLEAR Not Available [facility] [address] [place] [address], 64[address], 06/07/2025 19:21:12 06/07/20 25 06/07/2025 urina lysis , compl ete pH 7.0 5.0-7. 5 Not Available [facility] [address] [place] [address], 19478, 06/07/2025 19:21:12 06/07/20 25 06/07/2025 urina lysis , compl ete specific gravity 1.010 1.000- 1.030 Not Available [facility] [address] [place] [address], 87007, 06/07/2025 19:21:12 06/07/20 25 06/07/2025 urina lysis , compl ete blood NEGATI VE negati ve Not Available [facility] [address] [place] [address], 13379, 06/07/2025 19:21:12 06/07/20 25 06/07/2025 urina lysis , compl ete bilirubin NEGATI VE negati ve Not Available [facility] [address] [place] [address], 10681, 06/07/2025 19:21:12 06/07/20 25 06/07/2025 urina lysis , compl ete urobilinogen 1.0 0.2-1. 0 Not Available [facility] [address] [place] [address], 34202, 06/07/2025 19:21:12 06/07/20 25 06/07/2025 urina lysis , compl ete ketone NEGATI VE negati ve Not Available [facility] [address] [place] [address], 43934, 06/07/2025 19:21:12 06/07/20 25 06/07/2025 urina lysis , compl ete glucose NEGATI VE negati ve Not Available [facility] [address] [place] [address], 05705, 06/07/2025 19:21:12 06/07/20 25 06/07/2025 urina lysis , compl ete protein NEGATI VE negati ve Not Available [facility] [address] [place] [address], 79996, 06/07/2025 19:21:12 06/07/20 25 06/07/2025 urina lysis , compl ete nitrite POSITI VE negati ve abnormal Not Available [facility] [address] [place] [address], 45737, 06/07/2025 19:21:12 06/07/20 25 06/07/2025 urina lysis , compl ete leukocytes 1+ negati ve abnormal Not Available [facility] [address] [place] [address], 51222, 06/07/2025 19:21:12 06/07/20 25 06/07/2025 urina lysis , compl ete review * Micro scopi c resul ts revie wed by Techn [facility]. Not Available [facility] [address] [place] [address], [address], 06/07/2025 19:21:12 06/07/20 25 06/07/2025 urina lysis , compl ete RBC 0-2 0-2/hp f Not Available [facility] [address] [place] [address], 36049, 06/07/2025 19:21:12 06/07/20 25 06/07/2025 urina lysis , compl ete WBC 0-5 0-5/hp f Not Available [facility] [address] [place] [address], 82016, 06/07/2025 19:21:12 06/07/20 25 06/07/2025 urina lysis , compl ete WBC. CONFI Cell count s confi rmed by Techn [facility]. Not Available [facility] [address] [place] [address], 106[address], 06/07/2025 19:21:12 06/07/20 25 06/07/2025 urina lysis , compl ete squamous epithelial 3-5 0-10/h pf Not Available [facility] [address] [place] [address], 9[address], 06/07/2025 19:21:12 06/07/20 25 06/07/2025 urina lysis , compl ete bacteria NONE SEEN none Not Available [facility] [address] [place] [address], 29631, 06/07/2025 19:21:12 06/07/20 25 06/07/2025 urina lysis , compl ete hyaline cast 0-2 0-2/lp f Not Available [facility] [address] [place] [address], 68334, 06/07/2025 19:21:12 06/07/20 25 06/07/2025 renal funct ion panel , serum renal function panel Not Available [facility] [address] [place] [address], 58756, 06/07/2025 19:42:24 06/07/20 25 06/07/2025 renal funct ion panel , serum sodium 140 mmol/ L 136-14 6 Not Available [facility] [address] [place] [address], 73875, 06/07/2025 19:42:24 06/07/20 25 06/07/2025 renal funct ion panel , serum potassium 4.0 mmol/ L 3.5-5. 1 Not Available [facility] [address] [place] [address], 20578, 06/07/2025 19:42:24 06/07/20 25 06/07/2025 renal funct ion panel , serum chloride 106 mmol/ L 98-110 Not Available [facility] [address] [place] [address], 98536, 06/07/2025 19:42:24 06/07/20 25 06/07/2025 renal funct ion panel , serum CO2 25 mEq/L 20-32 Not Available [facility] [address] [place] [address], 80739, 06/07/2025 19:42:24 06/07/20 25 06/07/2025 renal funct ion panel , serum anion gap 13 mmol/ L 10-22 Not Available [facility] [address] [place] [address], 98322, 06/07/2025 19:42:24 06/07/20 25 06/07/2025 renal funct ion panel , serum glucose 188 mg/dL 70-100 high Not Available [facility] [address] [place] [address], 41320, 06/07/2025 19:42:24 06/07/20 25 06/07/2025 renal funct ion panel , serum calcium 9.5 mg/dL 8.4-10 .4 Not Available [facility] [address] [place] [address], 22857, 06/07/2025 19:42:24 06/07/20 25 06/07/2025 renal funct ion panel , serum albumin 4.1 g/dL 3.5-5. 3 Not Available [facility] [address] [place] [address], 76[address], 06/07/2025 19:42:24 06/07/20 25 06/07/2025 renal funct ion panel , serum phosphorus 3.1 mg/dL 2.7-4. 5 Not Available [facility] [address] [place] [address], 71844, 06/07/2025 19:42:24 06/07/20 25 06/07/2025 renal funct ion panel , serum BUN 15 mg/dL 7-21 Not Available [facility] [address] [place] [address], 38813, 06/07/2025 19:42:24 06/07/20 25 06/07/2025 renal funct ion panel , serum creatinine 0.9 mg/dL 0.7-1. 3 Not Available [facility] [address] [place] [address], 31039, 06/07/2025 19:42:24 06/07/20 25 06/07/2025 renal funct ion panel , serum CKD-epi GFR 76 eGFR was calcu lated using the 2020 CKD-E PI equat ion. (Account Support Associate andree Kidne y Disea se has an eGFR less than 60 mL/mi n/1.7 3mm for a perio d of three month s or more. ) This calcu latio n has not been valid ated for patie nt ages <18 or >90 years old. Not Available [facility] [address] [place] [address], 276[address], 06/07/2025 19:42:24 06/07/2006/08/2025 micro album in, urine microalbumin ,random panel Not Available [facility] [address] [place] [address], 74367, 06/08/2025 10:13:00 06/07/2006/08/2025 micro album in, urine microalbumin random 0.5 mg/dL Not Available [facility] [address] [place] [address], 90039, 06/08/2025 10:13:00 06/07/2006/08/2025 micro album in, urine creatinine, urine random 37 mg/dL Refer ence range not estab lishe d for other than 24 hour colle ction . Not Available [facility] [address] [place] [address], 32762, 06/08/2025 10:13:00 06/07/2006/08/2025 micro album in, urine [...] in or Creat inine .) Not Available [facility] [address] [place] [address], 14134, 06/08/2025 10:13:00 06/07/2006/08/2025 C4 (comp lemen t), serum or plasm a complement C4 44 mg/dL 12-38 high Not Available [facility] [address] [place] [address], 34435, 06/08/2025 14:11:19 06/07/20 25 06/08/2025 C3 (comp lemen t), serum or plasm a complement C3 201 mg/dL 82-167 high Not Available [facility] [address] [place] [address], 58925, 06/08/2025 14:11:20 06/07/20 25 06/08/2025 ADALBERTO (anti nucle ar antib odies ) scree n, serum ADALBERTO screen NEGATI VE negati ve Perfo rmed by Bio-R ad enzym e immun oassa y Not Available [facility] [address] [place] [address], 91732, 06/08/2025 15:48:52 06/07/2006/09/2025 cultu re + sensi [...] resis tant inter preta tion Not Available [facility] [address] [place] [address], 67925, 06/09/2025 09:46:55 06/07/2006/09/2025 immun ofixa tion, serum immunofixati on, serum No monoc lonal ity detec michelle. Not Available [facility] [address] [place] [address], 99281, 06/09/2025 15:12:43 06/07/20 25 06/09/2025 immun ofixa tion, serum IgG quantitative 1147 mg/dL 586-16 02 Not Available [facility] [address] [place] [address], 97383, 06/09/2025 15:12:43 06/07/20 25 06/09/2025 immun ofixa tion, serum IgA quantitative 393 mg/dL 87-352 high Not Available [facility] [address] [place] [address], 55921, 06/09/2025 15:12:43 06/07/20 25 06/09/2025 immun ofixa tion, serum IgM quantitative 80 mg/dL -217 Not Available [facility] [address] [place] [address], 50929, 06/09/2025 15:12:43 06/07/2006/12/2025 anca panel , serum anca, complete Not Available [facility] [address] [place] [address], 67069, 06/12/2025 20:10:54 06/07/2006/12/2025 anca panel , serum myeloperoxid ase Ab <0.2 units 0.0-0. 9 Not Available [facility] [address] [place] [address], 44772, 06/12/2025 20:10:54 06/07/20 25 06/12/2025 anca panel , serum proteinase-3 Ab, anca <0.2 units 0.0-0. 9 Not Available [facility] [address] [place] [address], 93287, 06/12/2025 20:10:54 06/07/20 25 06/12/2025 anca panel , serum C-anca titer <1:20 titer neg:<1 :20 Not Available [facility] [address] [place] [address], 01126, 06/12/2025 20:10:54 06/07/20 25 06/12/2025 anca panel [...] ng of posit marquis sera with both VA-3 and MPO-A NCA enzym e immun oassa ys. As many as 5% serum sampl es are posit marquis only by EIA. Ref. AM J Clin Patho l 1999; 111:5 07-51 3. Not Available [facility] [address] [place] [address], 72441, 06/12/2025 20:10:54 06/07/20 25 06/12/2025 anca panel , serum atypical P anca titer <1:20 titer neg:<1 :20 The atypi radha pANCA patte rn has been obser elva in a signi fican t perce ntage of patie nts with ulcer ative colit is, prima ry scler osing chola ngiti s and autoi mmune hepat itis. Not Available [facility] [address] [place] [address], 52252, 06/12/2025 20:10:54 06/07/2006/07/2025 UE urine eosinophils NEGATI VE Not Available [facility] - [facility] [address] [facility], [place], [address], 06/07/2025 23:40:52 06/07/2006/08/2025 cultu re + sensi tivit y, urine urine culture and sens. PREL IM URINE GRAM NEGAT MARQUIS RODS DATE/ TIME: 06/08 10:17 >100, 000 CFU/m L Not Available [facility] [address], [address], 06/08/2025 11:18:58 06/18/2006/20/2025 C URINE urine culture [...] furth er work- up is neede d. [facility] ELIMI NARY REPOR TS Preli minar y Repor t [] Verif ied Date/ Time: 10/6/ 2025 14:19 CDT Moder ate proba ble conta latriciaan ts inclu din,00 0 cfu/m l Gram Negat marquis Rods Cultu re reinc ubate d Not Available [facility] [address] [place] [address], [address], 06/20/2025 11:46:50 06/18/2006/18/2025 UACS color Pauline Not Available [address], [address], 06/18/2025 17:21:53 06/18/2006/18/2025 UACS appearance Clear Not Avail able [facility] - [address], [address], 06/18/2025 17:21:53 06/18/2006/18/2025 UACS specific gravity 1.012 1.003- 1.030 Not Available [address], [address], 06/18/2025 17:21:53 06/18/20 25 06/18/2025 UACS pH urine 6.0 4.5-7. 5 Not Available [address], [address], 06/18/2025 17:21:53 06/18/20 25 06/18/2025 UACS protein 30 abnormal Not Availa ble [facility] - [address], [address], 06/18/2025 17:21:53 06/18/20 25 06/18/2025 UACS urine glucose Negati ve Not Available [facility] [address] [place] [address], 95[address], 06/18/2025 17:21:53 06/18/20 25 06/18/2025 UACS ketones Negati ve Not Available [address], 10[address], 06/18/2025 17:21:53 06/18/20 25 06/18/2025 UACS urine bilirubin Negati ve Not Available [facility] [address] [place] [address], 58[address], 06/18/2025 17:21:53 06/18/20 25 06/18/2025 UACS urine HGB Small abnormal Not Avai lable [address], [address], 06/18/2025 17:21:53 06/18/20 25 06/18/2025 UACS nitrite Positi ve abnormal Not Available [address], [address], 06/18/2025 17:21:53 06/18/20 25 06/18/2025 UACS leukocyte esterase Negati ve Not Available [address], 25[address], 06/18/2025 17:21:53 06/18/20 25 06/18/2025 UACS urobilinogen >=4.0 abnormal Not A vailable [address], [address], 06/18/2025 17:21:53 06/18/20 25 06/18/2025 UACS urine WBCs 2 /hpf 0-[address] [facility] [address] [place] [address], 80158, 06/18/2025 17:21:53 06/18/20 25 06/18/2025 UACS urine RBCs 0 /hpf 0-[address] [facility] [address] [place] [address], 27998, 06/18/2025 17:21:53 06/18/20 25 06/18/2025 UACS squamous epithelial cells 6 /hpf 0-5 high Not Available [facility] - [facility] [address] [place] [address], 55638, 06/18/2025 17:21:53 06/18/20 25 06/18/2025 UACS bacteria Few abnormal Not Avail able [facility] - [facility] [address], [address], 06/18/2025 17:21:53 06/18/20 25 06/18/2025 UACS color Pauline Not Available [facility] - [facility] [address] [place] [address], 37842, 06/18/2025 17:21:52 06/18/2006/18/2025 UACS appearance Clear Not Avail able [facility] - [facility] [address] [place] [address], 61884, 06/18/2025 17:21:52 06/18/20 25 06/18/2025 UACS specific gravity 1.012 1.003- 1.030 Not Available [facility] - [facility] [address] [place] [address], 92306, 06/18/2025 17:21:52 06/18/20 25 06/18/2025 UACS pH urine 6.0 4.5-7. 5 Not Available [facility] - [facility] [address] [place] [address], 55824, 06/18/2025 17:21:52 06/18/20 25 06/18/2025 UACS protein 30 abnormal Not Availa ble [facility] - [facility] [address] [place] [address], 41005, 06/18/2025 17:21:52 06/18/20 25 06/18/2025 UACS urine glucose Negati ve Not Available [facility] - [facility] [address] [place] [address], 75289, 06/18/2025 17:21:52 06/18/20 25 06/18/2025 UACS ketones Negati ve Not Available [facility] [address] [place] [address], 96972, 06/18/2025 17:21:52 06/18/20 25 06/18/2025 UACS urine bilirubin Negati ve Not Available [facility] - [facility] [address] [place] [address], 02525, 06/18/2025 17:21:52 06/18/20 25 06/18/2025 UACS urine HGB Small abnormal Not Avai lable [facility] - [facility] [address] [place] [address], 39746, 06/18/2025 17:21:52 06/18/2006/18/2025 UACS nitrite Positi ve abnormal Not Available [facility] [address] [place] [address], 04976, 06/18/2025 17:21:52 06/18/20 25 06/18/2025 UACS leukocyte esterase Negati ve Not Available [facility] - [facility] [address] [place] [address], 52896, 06/18/2025 17:21:52 06/18/20 25 06/18/2025 UACS urobilinogen >=4.0 abnormal Not A vailable [facility] [address] [place] [address], 95855, 06/18/2025 17:21:52 06/18/20 25 06/18/2025 UACS urine WBCs 2 /hpf 0-4 Not Avail able [facility] [address] [place] [address], 72660, 06/18/2025 17:21:52 06/18/2006/18/2025 UACS squamous epithelial cells 6 /hpf 0-5 high Not Available [facility] - [facility] [address] [place] [address], 34098, 06/18/2025 17:21:52 06/18/20 25 06/18/2025 UACS bacteria Few abnormal Not Avail able [facility] - [facility] [address] [place] [address], 96544, 06/18/2025 17:21:52 06/18/20 25 06/18/2025 EGFR eGFR [...] se(CK D) is prese nt. Not Available [facility] - [facility] [address] [place] [address], 24607, 06/18/2025 17:15:19 06/18/20 25 06/18/2025 LPSE lipase,serum 18 u/L 11-82 Not Dalila ilable [facility] - [facility] [address] [place] [address], 51877, 06/18/2025 17:15:18 06/18/20 25 06/18/2025 CMP sodium 139 mmol/ L 136-14 5 Not Available [facility] - [facility] [address] [place] [address], 03723, 06/18/2025 17:15:16 06/18/20 25 06/18/2025 CMP potassium 4.1 mmol/ L 3.5-5. 1 Not Available [facility] - [facility] [address] [place] [address], 71626, 06/18/2025 17:15:16 06/18/20 25 06/18/2025 CMP chloride 106 mmol/ L 98-107 Not Available [facility] - [facility] [address] [place] [address], 05792, 06/18/2025 17:15:16 06/18/20 25 06/18/2025 CMP CO2 24 mmol/ L 21-31 Not Available [facility] - [facility] [address] [place] [address], 90936, 06/18/2025 17:15:16 06/18/20 25 06/18/2025 CMP BUN 9 mg/dL 7-25 Not Available [facility] - [facility] [address] [place] [address], 49401, 06/18/2025 17:15:16 06/18/20 25 06/18/2025 CMP creatinine 0.8 mg/dL 0.6-1. 3 Not Available [facility] - [facility] [address], [address], 06/18/2025 17:15:16 06/18/2006/18/2025 CMP glucose 210 mg/dL 70-105 high Not Availabl e [facility] - [facility] [address], [address], 06/18/2025 17:15:16 06/18/2006/18/2025 CMP calcium 9.3 mg/dL 8.6-10 .3 Not Available [facility] - [facility] [address], [address], 06/18/2025 17:15:16 06/18/20 25 06/18/2025 CMP total protein 7.2 gm/dL 6.0-8. 3 Not Available [facility] - [facility] [address] [place] [address], 33099, 06/18/2025 17:15:16 06/18/2006/18/2025 CMP albumin 4.0 gm/dL 3.5-5. 7 Not Available [facility] - [facility] [address], 46767, 06/18/2025 17:15:16 06/18/20 25 06/18/2025 CMP bilirubin (total) 0.8 mg/dL 0.3-1. 0 Not Available [facility] - [facility] [address] [place] [address], 75631, 06/18/2025 17:15:16 06/18/2006/18/2025 CMP AST 24 IU/L 13-39 Not Available [facility] - [address], [address], 06/18/2025 17:15:16 06/18/2006/18/2025 CMP alk phos 134 IU/L 34-104 high Not Availab le [facility] - [address], [address], 06/18/2025 17:15:16 06/18/2006/18/2025 CMP ALT 15 IU/L 7-52 Not Available [facility] - [address], [address], 06/18/2025 17:15:16 06/18/2006/18/2025 CMP anion gap 9 8-16 Anion gap calcu lated using formu la: Na - (Cl + CO2) Measu red total CO2 is used in place of HCO3 Not Available [facility] - [address], [address], 06/18/2025 17:15:16 06/18/2006/18/2025 DBIL bilirubin (direct) 0.1 mg/dL 0.0-0. 2 Not Available [facility] - [address], [address], 06/18/2025 17:15:14 06/18/2006/18/2025 DIFF neutrophils 64 % 47-67 Not Avai lable [facility] - [address], [address], 06/18/2025 16:50:30 06/18/2006/18/2025 DIFF lymphocytes 23 % 25-45 low Not Avai lable [facility] - [address], [address], 06/18/2025 16:50:30 06/18/20 25 06/18/2025 DIFF monocytes 8 % 1-9 Not Availa ble [facility] - [address], [address], 06/18/2025 16:50:30 06/18/20 25 06/18/2025 DIFF eosinophils 3 % 0-6 Not Avai lable [facility] - [address], 80025, 06/18/2025 16:50:30 06/18/20 25 06/18/2025 DIFF basophils 1 % 0-2 Not Availa ble Ar Only - [address], [id number], 06/18/2025 16:50:30 06/18/20 25 06/18/2025 DIFF absolute neutrophils 5.0 K/cum m 1.8-6. 5 Not Available Ar Only - [address], [id number], 06/18/2025 16:50:30 06/18/20 25 06/18/2025 DIFF absolute lymphocytes 1.8 K/cum m 0.9-3. 0 Not Available Ar Only - [address], [id number], 06/18/2025 16:50:30 06/18/20 25 06/18/2025 DIFF absolute monocytes 0.6 K/cum m 0.2-0. 8 Not Available Ar Only - [address], [address], 06/18/2025 16:50:30 06/18/20 25 06/18/2025 DIFF absolute eosinophils 0.3 K/cum m 0.0-0. 4 Not Available Ar Only - [address], [address], 06/18/2025 16:50:30 06/18/20 25 06/18/2025 DIFF absolute basophils 0.1 K/cum m 0.0-0. 2 Not Available Ar Only - [facility] [address] [place] [address], [address], 06/18/2025 16:50:30 06/18/20 25 06/18/2025 CBC W/ AUTO DIFF WBC 7.8 K/cum m 3.4-9. 4 Not Available Ar Only - [facility] [address] [place] [address], [address], 06/18/2025 16:50:28 06/18/20 25 06/18/2025 CBC W/ AUTO DIFF RBC 4.23 M/cum m 4.20-5 .40 Not Available Ar Only - [address], [address], 06/18/2025 16:50:28 06/18/20 25 06/18/2025 CBC W/ AUTO DIFF hemoglobin 11.5 gm/dL 12.0-1 6.0 low Not Available Ar Only - [facility] [address] [place] [address], [address], 06/18/2025 16:50:28 06/18/20 25 06/18/2025 CBC W/ AUTO DIFF hematocrit 35 % 37-47 low Not Available Ar Only - [address], [address], 06/18/2025 16:50:28 06/18/20 25 06/18/2025 CBC W/ AUTO DIFF MCV 83 81-94 Not Available Sc Only - [facility] [address] [place] [address], [address], 06/18/2025 16:50:28 06/18/20 25 06/18/2025 CBC W/ AUTO DIFF MCH 27.1 pg 27.5-3 3.2 low Not Available Ar Only - [facility] [address] [place] [address], [address], 06/18/2025 16:50:28 06/18/20 25 06/18/2025 CBC W/ AUTO DIFF MCHC 32.6 g/dL 31.0-3 6.0 Not Available Ar Only - [facility] [address] [place] [address], [address], 06/18/2025 16:50:28 06/18/20 25 06/18/2025 CBC W/ AUTO DIFF RDW 14.1 % 11.7-1 5.5 Not Available Ar Only - [facility] [address] [place] [address], [address], 06/18/2025 16:50:28 06/18/20 25 06/18/2025 CBC W/ AUTO DIFF platelets 278 K/cum m 140-41 0 Not Available [address], [address], 06/18/2025 16:50:28 06/18/20 25 06/18/2025 CBC W/ AUTO DIFF MPV 7.9 mL Not Available [facility] [place] [address] [place] [address], 35[address], 06/18/2025 16:50:28 06/18/20 25 06/19/2025 C URINE urine culture (new) abnormal Print Date/ Time: 2024 14:19 CDT Patie nt: JANINA WHITE P Micro biolo gy - Uroge nital Legen d: c=Cor recte d, F=Res ult Comme nt, S=Idalia cepti ble, I=Int ermed iate, R=Res istan t, N/A=N ot Appli cable PROCE DURE: Urine Cultu re [] ACCES LIA: [id number] SOURC E: Urine BODY SITE: COLLE CTED DATE/ TIME: 2024 15:21 CDT RECEI ELVA DATE/ TIME: 2024 19:13 CDT START DATE/ TIME: 2024 19:13 CDT FREE TEXT SOURC E: [place] ELIMI NARY REPOR TS Preli minar y Repor t [] Verif ied Date/ Time: 2024 14:19 CDT Moder ate proba ble conta minan ts inclu din,00 0 cfu/m l Gram Negat marquis Rods Cultu re reinc ubate d Not Available Ar Only - [facility] [address] [facility], [place], [address], 06/19/2025 15:19:31 06/28/20 25 06/30/2025 alpha -1-an titry psin (aat) , QN, serum A-1 antitrypsin phenotype Not Available [facility] [address], [address], 06/30/2025 17:12:05 06/28/2006/30/2025 alpha -1-an titry psin (aat) , QN, serum [id number] trypsin 140 mg/dL 101-18 7 Not Available [facility] Only - [facility] [address], [address], 06/30/2025 17:12:05 06/28/2006/30/2025 alpha -1-an titry psin [...] A-1-A T Conc. * Incid ence % akrie red to MM (Typi radha Range ) [...] is taken as the refer ence luzmaria harden Perce nt defic iency in each pheno type is repor michelle relat marquis to this refer ence. Range s used to confi rm pheno type. Not Available [facility] Only - [facility] [address], [address], 06/30/2025 17:12:05 07/25/2007/25/2025 UACS color Yellow Not Available Ar Only - [facility] [address] [place] [address], [address], 07/25/2025 19:55:43 07/25/20 25 07/25/2025 UACS appearance Hazy Not Avail able Ar Only - [facility] [address] [place] [address], [address], 07/25/2025 19:55:43 07/25/20 25 07/25/2025 UACS specific gravity 1.013 1.003- 1.035 Not Available Ar Only - [facility] [address] [place] [address], [address], 07/25/2025 19:55:43 07/25/20 25 07/25/2025 UACS pH urine 7.0 5.0-8. 0 Not Available Ar Only - [facility] [address] [place] [address], 48[address], 07/25/2025 19:55:43 07/25/20 25 07/25/2025 UACS protein Negati ve Not Available Ar Only - [facility] [address] [place] [address], [address], 07/25/2025 19:55:43 07/25/20 25 07/25/2025 UACS urine glucose Negati ve Not Available Ar Only - [facility] [address] [place] [address], [address], 07/25/2025 19:55:43 07/25/20 25 07/25/2025 UACS ketones Negati ve Not Available Ar Only - [facility] [address] [place] [address], [address], 07/25/2025 19:55:43 07/25/20 25 07/25/2025 UACS urine bilirubin Negati ve Not Available Ar Only - [facility] [address] [place] [address], [address], 07/25/2025 19:55:43 07/25/20 25 07/25/2025 UACS urine HGB Negati ve Not Available Ar Only - [facility] [address] [place] [address], 16[address], 07/25/2025 19:55:43 07/25/20 25 07/25/2025 UACS nitrite Negati ve Not Available Ar Only - [facility] [address] [place] [address], 87[address], 07/25/2025 19:55:43 07/25/2007/25/2025 UACS leukocyte esterase 2+ abnormal Not Available Ar On y - [facility] [address] [place] [address], [address], 07/25/2025 19:55:43 07/25/20 25 07/25/2025 UACS urobilinogen Negati ve Refer ence Range : <=1 Not Available Ar Only - [facility] [address] [place] [address], 88755, 07/25/2025 19:55:43 07/25/20 25 07/25/2025 UACS urine WBCs 11-25 abnormal Refer ence Range : <=5 Not Available Ar Only - [facility] [address] [place] [address], 98[address], 07/25/2025 19:55:43 07/25/20 25 07/25/2025 UACS urine RBCs 0-2 Refer ence Range : <=2 Not Available Ar Only - [facility] [address] [place] [address], 96165, 07/25/2025 19:55:43 07/25/20 25 07/25/2025 UACS squamous epithelial cells 4+ abnormal Refer ence Range : <=3+ Not Available Ar Only - [facility] [address] [place] [address], 61564, 07/25/2025 19:55:43 07/25/20 25 07/25/2025 UACS bacteria 1+ abnormal Refer ence Range : <=Tra ce, Non-C ath Not Available Ar Only - [facility] [address] [place] [address], [address], 07/25/2025 19:55:43 07/25/20 25 07/25/2025 UACS UA mucous Presen t Not Available Ar Only - [facility] [address] [place] [address], 87693, 07/25/2025 19:55:43 07/25/20 25 07/25/2025 UACS urine ascorbic acid Negati ve Ascor bic acid can inter fere with the detec tion of blood , gluco se, and nitri te. Not Available Ar Only - [facility] [address] [place] [address], [address], 07/25/2025 19:55:43 07/25/20 25 07/25/2025 EGFR eGFR [...] prese nt. Not Available Sc Only - [facility] [address], [address], 07/25/2025 20:03:32 07/25/20 25 07/25/2025 MG magnesium 1.8 mg/dL 1.8-2. 4 Not Available Ar Only - [facility] [address] [place] [address], [address], 07/25/2025 20:03:31 07/25/20 25 07/25/2025 LPSE lipase,serum 26 u/L 16-77 Not Dalila ilable Sc Only - [facility] [address] [place] [address], 15[address], 07/25/2025 20:03:30 07/25/20 25 07/25/2025 LDH LD 158 u/L 81-234 Not Available Ar Only - [facility] [address] [place] [address], 64004, 07/25/2025 20:03:28 07/25/20 25 07/25/2025 CMP sodium 141 mmol/ L 135-14 8 Not Available Ar Only - [facility] [address] [place] [address], 70701, 07/25/2025 20:03:27 07/25/20 25 07/25/2025 CMP potassium 4.4 mmol/ L 3.5-5. 3 Not Available Ar Only - [facility] [address] [place] [address], [address], 07/25/2025 20:03:27 07/25/20 25 07/25/2025 CMP chloride 106 mmol/ L 96-112 Not Available Sc Only - [facility] [address] [place] [address], 8[address], 07/25/2025 20:03:27 07/25/20 25 07/25/2025 CMP CO2 28 mmol/ L 23-33 Not Available Sc Only - [facility] [address] [place] [address], [address], 07/25/2025 20:03:27 07/25/20 25 07/25/2025 CMP BUN 12 mg/dL 7-18 Not Available Ar Only - [facility] [address] [place] [address], 0[address]60, 07/25/2025 20:03:27 07/25/20 25 07/25/2025 CMP creatinine 0.72 mg/dL 0.55-1 .02 Not Available Ar Only - [facility] [address] [place] [address], [address]12, 07/25/2025 20:03:27 07/25/20 25 07/25/2025 CMP glucose 102 mg/dL 65-99 high Not Availabl e Ar Only - [facility] [address] [place] [address], 97845, 07/25/2025 20:03:27 07/25/20 25 07/25/2025 CMP calcium 8.5 mg/dL 8.5-10 .1 Not Available Ar Only - [facility] [address] [place] [address], [address], 07/25/2025 20:03:27 07/25/20 25 07/25/2025 CMP total protein 6.8 g/dL 6.4-8. 2 Not Available Ar Only - [facility] [address] [place] [address], 91797, 07/25/2025 20:03:27 07/25/20 25 07/25/2025 CMP albumin 3.1 g/dL 3.4-5. 0 low Not Available Ar Only - [facility] [address] [place] [address], 26585, 07/25/2025 20:03:27 07/25/20 25 07/25/2025 CMP bilirubin (total) 0.5 mg/dL 0.2-1. 0 Not Available Ar Only - [facility] [address] [place] [address], 49806, 07/25/2025 20:03:27 07/25/20 25 07/25/2025 CMP AST 26 u/L 15-37 Not Available Ar Only - [facility] [address] [place] [address], 59764, 07/25/2025 20:03:27 07/25/20 25 07/25/2025 CMP alk phos 136 u/L 46-116 high Not Availab le Ar Only - [facility] [address] [place] [address], [address], 07/25/2025 20:03:27 07/25/20 25 07/25/2025 CMP ALT 28 u/L 14-59 Not Available Ar Only - [facility] [address] [place] [address], 16672, 07/25/2025 20:03:27 07/25/20 25 07/25/2025 CMP anion gap 7 mmol/ L 7-16 Not Available [facility] [address] [place] [address], 27439, 07/25/2025 20:03:27 07/25/20 25 07/25/2025 DBIL bilirubin (direct) 0.06 mg/dL 0.00-0 .20 Not Available Ar Only - [facility] [address] [place] [address], 9[address]17, 07/25/2025 20:03:25 07/25/20 25 07/25/2025 CBCW/ DIFF WBC 6.56 x10 3.98-1 0.04 Not Available Ar Only - [facility] [address] [place] [address], 99538, 07/25/2025 19:47:06 07/25/20 25 07/25/2025 CBCW/ DIFF RBC 3.95 x10 3.93-5 .22 Not Available Ar Only - [facility] [address] [place] [address], 90535, 07/25/2025 19:47:06 07/25/20 25 07/25/2025 CBCW/ DIFF hemoglobin 10.7 g/dL 11.2-1 5.7 low Not Available Sc Only - [facility] [address] [place] [address], 48832, 07/25/2025 19:47:06 07/25/20 25 07/25/2025 CBCW/ DIFF hematocrit 32.8 % 34.1-4 4.9 low Not Available Sc Only - [facility] [address] [place] [address], 16726, 07/25/2025 19:47:06 07/25/20 25 07/25/2025 CBCW/ DIFF MCV 83.0 fL 79.4-9 4.8 Not Available Sc Only - [facility] [address] [place] [address], 13508, 07/25/2025 19:47:06 07/25/20 25 07/25/2025 CBCW/ DIFF MCH 27.1 pg 25.6-3 2.2 Not Available Sc Only - [facility] [address] [place] [address], 80116, 07/25/2025 19:47:06 07/25/20 25 07/25/2025 CBCW/ DIFF MCHC 32.6 g/dL 32.2-3 5.5 Not Available Sc Only - [facility] [address] [place] [address], 48324, 07/25/2025 19:47:06 07/25/20 25 07/25/2025 CBCW/ DIFF rdwcv 12.6 % 11.7-1 4.4 Not Available Sc Only - [facility] [address] [place] [address], 49256, 07/25/2025 19:47:06 07/25/20 25 07/25/2025 CBCW/ DIFF rdwsd 38.0 fL 36.4-4 6.3 Not Available Sc Only - [facility] [address] [place] [address], 49104, 07/25/2025 19:47:06 07/25/20 25 07/25/2025 CBCW/ DIFF platelets 210 x10 182-36 9 Not Available Sc Only - [facility] [address] [place] [address], 89907, 07/25/2025 19:47:06 07/25/20 25 07/25/2025 CBCW/ DIFF MPV 9.2 fL 9.4-12 .3 low Not Available Sc Only - [facility] [address] [place] [address], 93372, 07/25/2025 19:47:06 07/25/20 25 07/25/2025 AUTOD IFF neutrophils 59.8 % 34.0-7 1.1 Not Available Sc Only - [facility] [address] [place] [address], 96101, 07/25/2025 19:47:03 07/25/20 25 07/25/2025 AUTOD IFF lymphocytes 27.4 % 19.3-5 1.7 Not Available Sc Only - [facility] [address] [place] [address], 96706, 07/25/2025 19:47:03 07/25/20 25 07/25/2025 AUTOD IFF monocytes 8.4 % 4.7-12 .5 Not Available Sc Only - [facility] [address] [place] [address], 82714, 07/25/2025 19:47:03 07/25/20 25 07/25/2025 AUTOD IFF eosinophils 3.5 % 0.7-5. 8 Not Available Sc Only - [facility] [address] [place] [address], 38942, 07/25/2025 19:47:03 07/25/20 25 07/25/2025 AUTOD IFF basophils 0.6 % 0.1-1. 2 Not Available Sc Only - [facility] [address] [place] [address], 76792, 07/25/2025 19:47:03 07/25/20 25 07/25/2025 AUTOD IFF imm auto 0.3 % 0.0-1. 5 Not Available Sc Only - [facility] [address] [place] [address], 59967, 07/25/2025 19:47:03 07/25/20 25 07/25/2025 AUTOD IFF NRBC auto 0.0 /100W BC 0.0-0. 2 Not Available Ar Only - [facility] [address] [place] [address], 9[address]67, 07/25/2025 19:47:03 07/25/20 25 07/25/2025 AUTOD IFF absolute neutrophils 3.92 x10 1.56-6 .13 Not Available Ar Only - [facility] [address] [place] [address], 96615, 07/25/2025 19:47:03 07/25/20 25 07/25/2025 AUTOD IFF absolute lymphocytes 1.80 x10 1.18-3 .74 Not Available Ar Only - [address], [address], 07/25/2025 19:47:03 07/25/20 25 07/25/2025 AUTOD IFF absolute monocytes 0.55 x10 0.24-0 .36 high Not Available Ar Only - [address], [address], 07/25/2025 19:47:03 07/25/20 25 07/25/2025 AUTOD IFF absolute eosinophils 0.23 x10 0.04-0 .36 Not Available Ar Only - [address], [address], 07/25/2025 19:47:03 07/25/20 25 07/25/2025 AUTOD IFF absolute basophils 0.04 x10 0.01-0 .08 Not Available Ar Only - [address], [address], 07/25/2025 19:47:03 07/25/20 25 07/25/2025 AUTOD IFF imm absolute 0.02 x10 0.00-0 .15 Not Available Ar Only - [address], [address], 07/25/2025 19:47:03 07/25/20 25 07/25/2025 AUTOD IFF NRBC absolute 0.00 x10 0.00-0 .01 Not Available Ar Only - [facility] [address] [place] [address], 99908, 07/25/2025 19:47:03 07/25/20 25 07/28/2025 C URINE urine culture (new) abnormal Print Date/ Time: 07/28 08:28 CONTROL ENGINEER Patie nt: RICE, KATHL EEN P Micro biolo gy - Uroge nital Legen d: c=Cor recte d, F=Res ult Comme nt, S=Idalia cepti ble, I=Int ermed iate, R=Res istan t, N/A=N ot Appli cable PROCE DURE: Urine Cultu re [] ACCES LIA: [id number] SOURC E: Urine BODY SITE: COLLE CTED DATE/ TIME: 07/25 18:20 CONTROL ENGINEER RECEI ELVA DATE/ TIME: 07/25 19:08 CONTROL ENGINEER START DATE/ TIME: 07/25 19:08 CONTROL ENGINEER FREE TEXT SOURC E: FI NAL REPOR TS Final Repor t [] Verif ied Date/ Time: 07/28 08:28 CONTROL ENGINEER 30,00 0 cfu/m l Mixed sanket inclu ding Esche veronika a coli and Strep tococ cus agala ctiae (Grou p B) [place] ELIMI NARY REPOR TS Preli minar y Repor t [] Verif ied Date/ Time: 07/27 06:37 CONTROL ENGINEER 30,00 0 cfu/m l Mixed sanket inclu ding Esche veronika a coli Preli minar y Repor t [] Verif ied Date/ Time: 07/26 07:58 CONTROL ENGINEER Light growt h-cul ture reinc ubate d. Speci men recei elva after 6pm. Not Available Ar Only - [facility] [address] [place] [address], [address]109, 07/28/2025 09:28:39 07/25/20 25 07/27/2025 C URINE urine culture (new) abnormal Print Date/ Time: 07/27 06:37 CONTROL ENGINEER Patie nt: JUAN WHITELEESA EEN P Micro biolo gy - Uroge nital Legen d: c=Cor recte d, F=Res ult Comme nt, S=Idalia cepti ble, I=Int ermed iate, R=Res istan t, N/A=N ot Appli cable PROCE DURE: Urine Cultu re [] ACCES LIA: SOURC E: Urine BODY SITE: COLLE CTED DATE/ TIME: 07/25 18:20 CONTROL ENGINEER RECEI ELVA DATE/ TIME: 07/25 19:08 CONTROL ENGINEER START DATE/ TIME: 07/25 19:08 CONTROL ENGINEER FREE TEXT SOURC E: VA ELIMI NARY REPOR TS Preli minar y Repor t [] Verif ied Date/ Time: 07/27 06:37 CONTROL ENGINEER 30,00 0 cfu/m l Mixed sanket inclu ding Esche veronika a coli Preli minar y Repor t [] Verif ied Date/ Time: 07/26 07:58 CONTROL ENGINEER Light growt h-cul ture reinc ubate d. Speci men recei elva after 6pm. Not Available Ar Only - [facility] [address] [facility], [place], [address], 07/27/2025 07:37:47 07/25/20 25 07/27/2025 C URINE urine culture (new) abnormal Print Date/ Time: 07/27 06:37 CONTROL ENGINEER Patie nt: JANINA WHITEN P Micro biolo gy - Uroge nital Legen d: c=Cor recte d, F=Res ult Comme nt, S=Idalia cepti ble, I=Int ermed iate, R=Res istan t, N/A=N ot Appli cable PROCE DURE: Urine Cultu re [] ACCES LIA: SOURC E: Urine BODY SITE: COLLE CTED DATE/ TIME: 07/25 18:20 CONTROL ENGINEER RECEI ELVA DATE/ TIME: 07/25 19:08 CONTROL ENGINEER START DATE/ TIME: 07/25 19:08 CONTROL ENGINEER FREE TEXT SOURC E: [place] ELIMI NARY REPOR TS Preli minar y Repor t [] Verif ied Date/ Time: 07/27 06:37 CONTROL ENGINEER 30,00 0 cfu/m l Mixed sanket inclu ding Esche veronika a coli Preli minar y Repor t [] Verif ied Date/ Time: 07/26 07:58 CONTROL ENGINEER Light growt h-cul ture reinc ubate d. Speci men recei elva after 6pm. Not Available Ar Only - [facility] [employer] [address] [place] [address], 380[address], 07/27/2025 07:37:43 07/25/20 25 07/26/2025 C URINE urine culture (new) Print Date/ Time: 07/26 07:58 CONTROL ENGINEER Patie nt: JANINA WHITE P Micro biolo gy - Uroge nital Legen d: c=Cor recte d, F=Res ult Comme nt, S=Idalia cepti ble, I=Int ermed iate, R=Res istan t, N/A=N ot Appli cable PROCE DURE: Urine Cultu re [] ACCES LIA: [id number] SOURC E: Urine BODY SITE: COLLE CTED DATE/ TIME: 07/25 18:20 CONTROL ENGINEER RECEI ELVA DATE/ TIME: 07/25 19:08 CONTROL ENGINEER START DATE/ TIME: 07/25 19:08 CONTROL ENGINEER FREE TEXT SOURC E: VA ELIMI NARY REPOR TS Preli minar y Repor t [] Verif ied Date/ Time: 07/26 07:58 CONTROL ENGINEER Light growt h-cul ture reinc ubate d. Speci men recei elva after 6pm. Not Available Ar Only - [facility] [address] [place] [address], 76365, 07/26/2025 08:59:00 07/27/20 25 07/29/2025 C URINE urine culture (new) Print Date/ Time: 07/29 06:56 CONTROL ENGINEER Patie nt: JANINA WHITE Micro biolo gy - Uroge nital Legen d: c=Cor recte d, F=Res ult Comme nt, S=Idalia cepti ble, I=Int ermed iate, R=Res istan t, N/A=N ot Appli cable PROCE DURE: Urine Cultu re [] ACCES LIA: [id number] SOURC E: Urine BODY SITE: COLLE CTED DATE/ TIME: 07/27 19:31 CONTROL ENGINEER RECEI ELVA DATE/ TIME: 07/27 20:04 CONTROL ENGINEER START DATE/ TIME: 07/27 20:05 CONTROL ENGINEER FREE TEXT SOURC E: FI NAL REPOR TS Final Repor t [] Verif ied Date/ Time: 07/29 06:56 CONTROL ENGINEER 40,00 0 cfu/m l mixed sanket . [place] ELIMI NARY REPOR TS Preli minar y Repor t [] Verif ied Date/ Time: 07/28 06:43 CONTROL ENGINEER 20,00 0 cfu/m l Gram Negat marquis Rods Not Available Ar Only - [facility] [address] [place] [address], 15649, 07/29/2025 07:56:40 07/27/20 25 07/27/2025 UACS color Yellow Not Available Ar Only - [facility] [address] [place] [address], 81918, 07/27/2025 21:03:00 07/27/20 25 07/27/2025 UACS appearance Hazy Not Avail able Ar Only - [facility] [address] [place] [address], 58336, 07/27/2025 21:03:00 07/27/20 25 07/27/2025 UACS specific gravity 1.014 1.003- 1.035 Not Available Ar Only - [facility] [address] [place] [address], 69769, 07/27/2025 21:03:00 07/27/20 25 07/27/2025 UACS pH urine 6.0 5.0-8. 0 Not Available Ar Only - [facility] [address] [place] [address], 83621, 07/27/2025 21:03:00 07/27/20 25 07/27/2025 UACS protein Negati ve Not Available Ar Only - [facility] [address] [place] [address], 13288, 07/27/2025 21:03:00 07/27/20 25 07/27/2025 UACS urine glucose Negati ve Not Available Ar Only - [facility] [address] [place] [address], 96804, 07/27/2025 21:03:00 07/27/20 25 07/27/2025 UACS ketones Negati ve Not Available Ar Only - [facility] [address], [address], 07/27/2025 21:03:00 07/27/20 25 07/27/2025 UACS urine bilirubin Negati ve Not Available Ar Only - [facility] [address] [place] [address], 48033, 07/27/2025 21:03:00 07/27/20 25 07/27/2025 UACS urine HGB Negati ve Not Available Ar Only - [facility] [address], [address], 07/27/2025 21:03:00 07/27/20 25 07/27/2025 UACS nitrite Negati ve Not Available Ar Only - [facility] [address] [place] [address], 28961, 07/27/2025 21:03:00 07/27/20 25 07/27/2025 UACS leukocyte esterase 1+ abnormal Not Available Ar On y - [facility] [address] [place] [address], 78005, 07/27/2025 21:03:00 07/27/2007/27/2025 UACS urobilinogen Negati ve Refer ence Range : <=1 Not Available Ar Only - [facility] [address] [place] [address], 99258, 07/27/2025 21:03:00 07/27/2007/27/2025 UACS urine WBCs 11-25 abnormal Refer ence Range : <=5 Not Available [facility] [address], [address], 07/27/2025 21:03:00 07/27/2007/27/2025 UACS urine RBCs 0-2 Refer ence Range : <=2 Not Available [facility] [address] [place] [address], 15463, 07/27/2025 21:03:00 07/27/2007/27/2025 UACS squamous epithelial cells 3+ Refer ence Range : <=3+ Not Available [facility] [address] [place] [address], 03129, 07/27/2025 21:03:00 07/27/2007/27/2025 UACS bacteria 1+ abnormal Refer ence Range : <=Tra ce, Non-C ath Not Available [facility] [address] [place] [address], 00513, 07/27/2025 21:03:00 07/27/2007/27/2025 UACS UA mucous Presen t Not Available [facility] [address] [place] [address], [id number], 07/27/2025 21:03:00 07/27/2007/27/2025 UACS urine ascorbic acid Negati ve Ascor bic acid can inter fere with the detec tion of blood , gluco se, and nitri te. Not Available [facility] [address] [place] [address], [id number], 07/27/2025 21:03:00 07/27/2007/2807/28/2025 C URINE urine culture (new) abnormal Print Date/ Time: 07/28 06:43 CONTROL ENGINEER Patie nt: JANINA WHITE P Micro biolo gy - Uroge nital Legen d: c=Cor recte d, F=Res ult Comme nt, S=Idalia cepti ble, I=Int ermed iate, R=Res istan t, N/A=N ot Appli cable PROCE DURE: Urine Cultu re [] ACCES LIA: [id number] SOURC E: Urine BODY SITE: COLLE CTED DATE/ TIME: 07/27 19:31 CONTROL ENGINEER RECEI ELVA DATE/ TIME: 07/27 20:04 CONTROL ENGINEER START DATE/ TIME: 07/27 20:05 CONTROL ENGINEER FREE TEXT SOURC E: [place] ELIMI NARY REPOR TS Preli minar y Repor t [] Verif ied Date/ Time: 07/28 06:43 CONTROL ENGINEER 20,00 0 cfu/m l Gram Negat marquis Rods Not Available Sc Only - [facility] [address] [facility], [place], [address], 07/28/2025 07:43:27 07/27/20 25 07/27/2025 EGFR eGFR [...] se (CKD) is prese nt. Not Available Ar Only - [facility] [address] [place] [address], 64227, 07/27/2025 19:05:40 07/27/20 25 07/27/2025 LPSE lipase,serum 21 u/L 16-77 Not Dalila ilable Ar Only - [facility] [address] [place] [address], 12848, 07/27/2025 19:05:39 07/27/20 25 07/27/2025 LDH LD 150 u/L 81-234 Not Available Ar Only - [facility] [address] [place] [address], 90230, 07/27/2025 19:05:38 07/27/20 25 07/27/2025 CMP sodium 141 mmol/ L 135-14 8 Not Available Ar Only - [facility] [address] [place] [address], 52803, 07/27/2025 19:05:37 07/27/20 25 07/27/2025 CMP potassium 4.4 mmol/ L 3.5-5. 3 Not Available Ar Only - [facility] [address] [place] [address], 59767, 07/27/2025 19:05:37 07/27/20 25 07/27/2025 CMP chloride 105 mmol/ L 96-112 Not Available Ar Only - [facility] [address] [place] [address], 24186, 07/27/2025 19:05:37 07/27/20 25 07/27/2025 CMP CO2 28 mmol/ L 23-33 Not Available Ar Only - [facility] [address] [place] [address], 65897, 07/27/2025 19:05:37 07/27/20 25 07/27/2025 CMP BUN 9 mg/dL 7-18 Not Available Ar Only - [facility] [address] [place] [address], 22702, 07/27/2025 19:05:37 07/27/20 25 07/27/2025 CMP creatinine 0.78 mg/dL 0.55-1 .02 Not Available Ar Only - [facility] [address] [place] [address], 57102, 07/27/2025 19:05:37 07/27/20 25 07/27/2025 CMP glucose 118 mg/dL 65-99 high Not Availabl e Ar Only - [facility] [address], 17[address], 07/27/2025 19:05:37 07/27/20 25 07/27/2025 CMP calcium 9.0 mg/dL 8.5-10 .1 Not Available Ar Only - [facility] [address], [address], 07/27/2025 19:05:37 07/27/20 25 07/27/2025 CMP total protein 7.3 g/dL 6.4-8. 2 Not Available Ar Only - [facility] [address], 36455, 07/27/2025 19:05:37 07/27/20 25 07/27/2025 CMP albumin 3.3 g/dL 3.4-5. 0 low Not Available Ar Only - [facility] [address] [place] [address], 90838, 07/27/2025 19:05:37 07/27/20 25 07/27/2025 CMP bilirubin (total) 0.6 mg/dL 0.2-1. 0 Not Available Ar Only - [facility] [address], 82437, 07/27/2025 19:05:37 07/27/20 25 07/27/2025 CMP AST 24 u/L 15-37 Not Available Ar Only - [facility] [address] [place] [address], 12287, 07/27/2025 19:05:37 07/27/20 25 07/27/2025 CMP alk phos 151 u/L 46-116 high Not Availab le Ar Only - [facility] [address] [place] [address], 78695, 07/27/2025 19:05:37 07/27/20 25 07/27/2025 CMP ALT 23 u/L 14-59 Not Available Ar Only - [facility] [address] [place] [address], 79205, 07/27/2025 19:05:37 07/27/20 25 07/27/2025 CMP anion gap 8 mmol/ L 7-16 Not Available Ar Only - [facility] [address] [place] [address], 81375, 07/27/2025 19:05:37 07/27/20 25 07/27/2025 DBIL bilirubin (direct) 0.11 mg/dL 0.00-0 .20 Not Available Ar Only - [facility] [address] [place] [address], 40291, 07/27/2025 19:05:36 07/27/20 25 07/27/2025 CBCW/ DIFF WBC 7.72 x10 3.98-1 0.04 Not Available Ar Only - [facility] [address] [place] [address], 33525, 07/27/2025 18:49:57 07/27/20 25 07/27/2025 CBCW/ DIFF RBC 4.21 x10 3.93-5 .22 Not Available Ar Only - [facility] [address] [place] [address], 27798, 07/27/2025 18:49:57 07/27/20 25 07/27/2025 CBCW/ DIFF hemoglobin 11.2 g/dL 11.2-1 5.7 Not Available Ar Only - [facility] [address] [place] [address], 61933, 07/27/2025 18:49:57 07/27/20 25 07/27/2025 CBCW/ DIFF hematocrit 34.6 % 34.1-4 4.9 Not Available Ar Only - [facility] [address] [place] [address], 29965, 07/27/2025 18:49:57 07/27/2007/27/2025 CBCW/ DIFF MCV 82.2 fL 79.4-9 4.8 Not Available Sc Only - [facility] [address] [place] [address], 87550, 07/27/2025 18:49:57 07/27/2007/27/2025 CBCW/ DIFF MCH 26.6 pg 25.6-3 2.2 Not Available Sc Only - [facility] [address] [place] [address], 01407, 07/27/2025 18:49:57 07/27/2007/27/2025 CBCW/ DIFF MCHC 32.4 g/dL 32.2-3 5.5 Not Available Sc Only - [facility] [address] [place] [address], 02631, 07/27/2025 18:49:57 07/27/2007/27/2025 CBCW/ DIFF rdwcv 12.9 % 11.7-1 4.4 Not Available Sc Only - [facility] [address] [place] [address], 21863, 07/27/2025 18:49:57 07/27/2007/27/2025 CBCW/ DIFF rdwsd 38.5 fL 36.4-4 6.3 Not Available Sc Only - [facility] [address] [place] [address], 97481, 07/27/2025 18:49:57 07/27/2007/27/2025 CBCW/ DIFF platelets 249 x10 182-36 9 Not Available Sc Only - [facility] [address] [place] [address], 70857, 07/27/2025 18:49:57 07/27/20 25 07/27/2025 CBCW/ DIFF MPV 9.1 fL 9.4-12 .3 low Not Available Sc Only - [facility] [address] [place] [address], 49113, 07/27/2025 18:49:57 07/27/2007/27/2025 AUTOD IFF neutrophils 62.0 % 34.0-7 1.1 Not Available Sc Only - [facility] [address] [place] [address], 93861, 07/27/2025 18:49:56 07/27/2007/27/2025 AUTOD IFF lymphocytes 26.3 % 19.3-5 1.7 Not Available Sc Only - [facility] [address] [place] [address], 47100, 07/27/2025 18:49:56 07/27/2007/27/2025 AUTOD IFF monocytes 7.8 % 4.7-12 .5 Not Available Sc Only - [facility] [address] [place] [address], 64551, 07/27/2025 18:49:56 07/27/2007/27/2025 AUTOD IFF eosinophils 3.2 % 0.7-5. 8 Not Available Sc Only - [facility] [address] [place] [address], 66931, 07/27/2025 18:49:56 07/27/2007/27/2025 AUTOD IFF basophils 0.6 % 0.1-1. 2 Not Available Sc Only - [facility] [address] [place] [address], 44301, 07/27/2025 18:49:56 07/27/2007/27/2025 AUTOD IFF imm auto 0.1 % 0.0-1. 5 Not Available Sc Only - [facility] [address] [place] [address], 74209, 07/27/2025 18:49:56 07/27/20 25 07/27/2025 AUTOD IFF NRBC auto 0.0 /100W BC 0.0-0. 2 Not Available Sc Only - [facility] [address] [place] [address], 97516, 07/27/2025 18:49:56 07/27/20 25 07/27/2025 AUTOD IFF absolute neutrophils 4.78 x10 1.56-6 .13 Not Available Sc Only - [facility] [address] [place] [address], 29232, 07/27/2025 18:49:56 07/27/20 25 07/27/2025 AUTOD IFF absolute lymphocytes 2.03 x10 1.18-3 .74 Not Available Sc Only - [facility] [address] [place] [address], 95896, 07/27/2025 18:49:56 07/27/20 25 07/27/2025 AUTOD IFF absolute monocytes 0.60 x10 0.24-0 .36 high Not Available Ar Only - [address], [address], 07/27/2025 18:49:56 07/27/20 25 07/27/2025 AUTOD IFF absolute eosinophils 0.25 x10 0.04-0 .36 Not Available Ar Only - [address], [address]66, 07/27/2025 18:49:56 07/27/20 25 07/27/2025 AUTOD IFF absolute basophils 0.05 x10 0.01-0 .08 Not Available Ar Only - [address], 38275, 07/27/2025 18:49:56 07/27/20 25 07/27/2025 AUTOD IFF imm absolute 0.01 x10 0.00-0 .15 Not Available Ar Only - [address], 49877, 07/27/2025 18:49:56 07/27/20 25 07/27/2025 AUTOD IFF NRBC absolute 0.00 x10 0.00-0 .01 Not Available Ar Only - [address], 86[address], 07/27/2025 18:49:56 08/03/20 25 08/03/2025 HbA1c (hemo globi n A1c), blood fingerstick A1C endo Not Available Ar Onl y - [facility] [place] [address], 06428, 08/03/2025 14:23:07 08/03/20 25 08/03/2025 HbA1c (hemo globi n A1c), blood hemoglobin A1C, finger 6.8 %_A1C 4.3 - 5.6 high Not Available [facility] Only - [facility] [address] [place] [address], 64998, 08/03/2025 14:23:07 08/03/20 25 08/03/2025 HbA1c (hemo globi n A1c), blood fingerstick estimated [address] Not Available Ar Onl y - [facility] [address] [place] [address], 26582, 08/03/2025 14:23:07 08/03/20 25 08/03/2025 LAC lactic acid 0.7 mmol/ L 0.5-2. 0 Not Available Ar Only - [facility] [address] [place] [address], 35940, 08/03/2025 21:10:44 08/03/2008/03/2025 PREG SERUM serum test See Note abnormal [...] e in 48-72 hours . Not Available Ar Only - [facility] [address] [place] [address], 24038, 08/03/2025 18:14:34 08/03/20 25 08/03/2025 EGFR eGFR 93 mL/mi n/1.7 3m? This eGFR is calcu lated using 2021 CKD-E PI Creat inine equat ion witho [...] Sc Only - [facility] [address] [place] [address], 00620, 08/03/2025 17:53:04 08/03/20 25 08/03/2025 LPSE lipase,serum 26 u/L 16-77 Not Dalila ilable Sc Only - [facility] [address] [place] [address], 60991, 08/03/2025 17:53:02 08/03/20 25 08/03/2025 CMP sodium 140 mmol/ L 135-14 8 Not Available Sc Only - [facility] [address] [place] [address], 07825, 08/03/2025 17:53:00 08/03/20 25 08/03/2025 CMP potassium 3.9 mmol/ L 3.5-5. 3 Not Available Sc Only - [facility] [address] [place] [address], 57466, 08/03/2025 17:53:00 08/03/20 25 08/03/2025 CMP chloride 103 mmol/ L 96-112 Not Available Sc Only - [facility] [address] [place] [address], 99197, 08/03/2025 17:53:00 08/03/20 25 08/03/2025 CMP CO2 29 mmol/ L 23-33 Not Available Ar Only - [facility] [address] [place] [address], 61366, 08/03/2025 17:53:00 08/03/20 25 08/03/2025 CMP BUN 8 mg/dL 7-18 Not Available Ar Only - [facility] [address], [address], 08/03/2025 17:53:00 08/03/20 25 08/03/2025 CMP creatinine 0.76 mg/dL 0.55-1 .02 Not Available Ar Only - [facility] [address], 23335, 08/03/2025 17:53:00 08/03/20 25 08/03/2025 CMP glucose 191 mg/dL 65-99 high Not Availabl e Ar Only - [facility] [address], 24180, 08/03/2025 17:53:00 08/03/20 25 08/03/2025 CMP calcium 8.9 mg/dL 8.5-10 .1 Not Available Ar Only - [facility] [address], 00103, 08/03/2025 17:53:00 08/03/20 25 08/03/2025 CMP total protein 7.4 g/dL 6.4-8. 2 Not Available Ar Only - [facility] [address], 82023, 08/03/2025 17:53:00 08/03/20 25 08/03/2025 CMP albumin 3.3 g/dL 3.4-5. 0 low Not Available Ar Only - [facility] [address] [place] [address], 99941, 08/03/2025 17:53:00 08/03/20 25 08/03/2025 CMP bilirubin (total) 0.7 mg/dL 0.2-1. 0 Not Available Ar Only - [facility] [address] [place] [address], 52855, 08/03/2025 17:53:00 08/03/20 25 08/03/2025 CMP AST 26 u/L 15-37 Not Available Ar Only - [facility] [address] [place] [address], 65418, 08/03/2025 17:53:00 08/03/20 25 08/03/2025 CMP alk phos 152 u/L 46-116 high Not Availab le Ar Only - [facility] [address] [place] [address], 95135, 08/03/2025 17:53:00 08/03/20 25 08/03/2025 CMP ALT 26 u/L 14-59 Not Available Ar Only - [facility] [address] [place] [address], 74054, 08/03/2025 17:53:00 08/03/20 25 08/03/2025 CMP anion gap 8 mmol/ L 7-16 Not Available Ar Only - [facility] [address] [place] [address], 22514, 08/03/2025 17:53:00 08/03/20 25 08/03/2025 CBCW/ DIFF WBC 7.58 x10 3.98-1 0.04 Not Available Ar Only - [facility] [address] [place] [address], 57200, 08/03/2025 17:39:02 08/03/20 25 08/03/2025 CBCW/ DIFF RBC 4.19 x10 3.93-5 .22 Not Available Ar Only - [facility] [address] [place] [address], 66082, 08/03/2025 17:39:02 08/03/20 25 08/03/2025 CBCW/ DIFF hemoglobin 11.0 g/dL 11.2-1 5.7 low Not Available Ar Only - [facility] [address] [place] [address], 57990, 08/03/2025 17:39:02 11/20/20 25 08/03/2025 CBCW/ DIFF hematocrit 35.0 % 34.1-4 4.9 Not Available Sc Only - [facility] [address] [place] [address], 75018, 08/03/2025 17:39:02 08/03/20 25 08/03/2025 CBCW/ DIFF MCV 83.5 fL 79.4-9 4.8 Not Available Sc Only - [facility] [address] [place] [address], 46938, 08/03/2025 17:39:02 08/03/20 25 08/03/2025 CBCW/ DIFF MCH 26.3 pg 25.6-3 2.2 Not Available Sc Only - [facility] [address] [place] [address], 86723, 08/03/2025 17:39:02 08/03/20 25 08/03/2025 CBCW/ DIFF MCHC 31.4 g/dL 32.2-3 5.5 low Not Available Sc Only - [facility] [address] [place] [address], 44973, 08/03/2025 17:39:02 08/03/20 25 08/03/2025 CBCW/ DIFF rdwcv 13.0 % 11.7-1 4.4 Not Available Sc Only - [facility] [address] [place] [address], 13426, 08/03/2025 17:39:02 08/03/20 25 08/03/2025 CBCW/ DIFF rdwsd 38.7 fL 36.4-4 6.3 Not Available Sc Only - [facility] [address] [place] [address], 77787, 08/03/2025 17:39:02 08/03/20 25 08/03/2025 CBCW/ DIFF platelets 266 x10 182-36 9 Not Available Sc Only - [facility] [address] [place] [address], 22539, 08/03/2025 17:39:02 08/03/20 25 08/03/2025 CBCW/ DIFF MPV 9.5 fL 9.4-12 .3 Not Available Sc Only - [facility] [address] [place] [address], 41750, 08/03/2025 17:39:02 08/03/20 25 08/03/2025 AUTOD IFF neutrophils 63.1 % 34.0-7 1.1 Not Available Sc Only - [facility] [address] [place] [address], 15879, 08/03/2025 17:39:00 08/03/20 25 08/03/2025 AUTOD IFF lymphocytes 24.8 % 19.3-5 1.7 Not Available Sc Only - [facility] [address] [place] [address], 64100, 08/03/2025 17:39:00 08/03/20 25 08/03/2025 AUTOD IFF monocytes 8.0 % 4.7-12 .5 Not Available Sc Only - [facility] [address] [place] [address], 16903, 08/03/2025 17:39:00 08/03/20 25 08/03/2025 AUTOD IFF eosinophils 3.0 % 0.7-5. 8 Not Available Sc Only - [facility] [address] [place] [address], 19679, 08/03/2025 17:39:00 08/03/20 25 08/03/2025 AUTOD IFF basophils 0.8 % 0.1-1. 2 Not Available Sc Only - [facility] [address] [place] [address], 62758, 08/03/2025 17:39:00 08/03/20 25 08/03/2025 AUTOD IFF imm auto 0.3 % 0.0-1. 5 Not Available Sc Only - [facility] [address] [place] [address], 53042, 08/03/2025 17:39:00 08/03/20 25 08/03/2025 AUTOD IFF NRBC auto 0.0 /100W BC 0.0-0. 2 Not Available Ar Only - [address], 58672, 08/03/2025 17:39:00 08/03/20 25 08/03/2025 AUTOD IFF absolute neutrophils 4.78 x10 1.56-6 .13 Not Available Ar Only - [address], 04161, 08/03/2025 17:39:00 08/03/20 25 08/03/2025 AUTOD IFF absolute lymphocytes 1.88 x10 1.18-3 .74 Not Available Ar Only - [address], 11091, 08/03/2025 17:39:00 08/03/20 25 08/03/2025 AUTOD IFF absolute monocytes 0.61 x10 0.24-0 .36 high Not Available Ar Only - [address], 98140, 08/03/2025 17:39:00 08/03/20 25 08/03/2025 AUTOD IFF absolute eosinophils 0.23 x10 0.04-0 .36 Not Available Ar Only - [address], 08938, 08/03/2025 17:39:00 08/03/20 25 08/03/2025 AUTOD IFF absolute basophils 0.06 x10 0.01-0 .08 Not Available Ar Only - [address], 17581, 08/03/2025 17:39:00 08/03/20 25 08/03/2025 AUTOD IFF imm absolute 0.02 x10 0.00-0 .15 Not Available Ar Only - [address], 54824, 08/03/2025 17:39:00 08/03/20 25 08/03/2025 AUTOD IFF NRBC absolute 0.00 x10 0.00-0 .01 Not Available Ar Only - [facility] [address] [place] [address], 06367, 08/03/2025 17:39:00 08/13/20 25 08/15/2025 C URINE urine culture (new) abnormal Print Date/ Time: 2024 09:50 CONTROL ENGINEER Patie nt: JANINA WHITEN P Micro biolo gy - Uroge nital Legen d: c=Cor recte d, F=Res ult Comme nt, S=Idalia cepti ble, I=Int ermed iate, R=Res istan t, N/A=N ot Appli cable PROCE DURE: Urine Cultu re [] ACCES LIA: [id number] SOURC E: Urine BODY SITE: COLLE CTED DATE/ TIME: 08/13 20:47 CONTROL ENGINEER RECEI ELVA DATE/ TIME: 08/13 20:58 CONTROL ENGINEER START DATE/ TIME: 08/13 20:58 CONTROL ENGINEER FREE TEXT SOURC E: FI NAL REPOR TS Final Repor t [] Verif ied Date/ Time: 2024 09:50 CONTROL ENGINEER 10,00 0 cfu/m l Gram Negat marquis Rods [place] ELIMI NARY REPOR TS Preli minar y Repor t [] Verif ied Date/ Time: 2024 08:15 CONTROL ENGINEER 10,00 0 cfu/m l Gram Negat marquis Rods Not Available Ar Only - [facility] [address] [place] [address], 29484, 08/15/2025 10:50:29 08/13/20 25 08/13/2025 UACS color Yellow Not Available Ar Only - [facility] [address] [place] [address], 07991, 08/13/2025 21:57:49 08/13/20 25 08/13/2025 UACS appearance Clear Not Avail able Ar Only - [facility] [employer] [address] [place] [address], 61211, 08/13/2025 21:57:49 08/13/20 25 08/13/2025 UACS specific gravity 1.009 1.003- 1.035 Not Available Ar Only - [facility] [address] [place] [address], 81112, 08/13/2025 21:57:49 08/13/20 25 08/13/2025 UACS pH urine 7.0 5.0-8. 0 Not Available Ar Only - [facility] [address], 35191, 08/13/2025 21:57:49 08/13/20 25 08/13/2025 UACS protein Negati ve Not Available Ar Only - [facility] [address] [place] [address], 24136, 08/13/2025 21:57:49 08/13/20 25 08/13/2025 UACS urine glucose Negati ve Not Available Ar Only - [facility] [address], 31636, 08/13/2025 21:57:49 08/13/20 25 08/13/2025 UACS ketones Negati ve Not Available Ar Only - [facility] [address], 84263, 08/13/2025 21:57:49 08/13/20 25 08/13/2025 UACS urine bilirubin Negati ve Not Available Ar Only - [facility] [address] [place] [address], 53715, 08/13/2025 21:57:49 08/13/20 25 08/13/2025 UACS urine HGB Negati ve Not Available Ar Only - [facility] [address] [place] [address], 82263, 08/13/2025 21:57:49 08/13/20 25 08/13/2025 UACS nitrite Negati ve Not Available Ar Only - [facility] [address] [place] [address], 69959, 08/13/2025 21:57:49 08/13/20 08/13/2025 UACS leukocyte esterase 2+ abnormal Not Available Ar On y - [facility] [address], 83095, 08/13/2025 21:57:49 08/13/20 25 08/13/2025 UACS urobilinogen Negati ve Refer ence Range : <=1 Not Available [address], 25549, 08/13/2025 21:57:49 08/13/20 25 08/13/2025 UACS urine WBCs 11-25 abnormal Refer ence Range : <=5 Not Available [address], 26896, 08/13/2025 21:57:49 08/13/20 25 08/13/2025 UACS urine RBCs 0-2 Refer ence Range : <=2 Not Available [address], 99979, 08/13/2025 21:57:49 08/13/20 25 08/13/2025 UACS squamous epithelial cells 2+ Refer ence Range : <=3+ Not Available [facility] [address] [place] [address], 88590, 08/13/2025 21:57:49 08/13/20 25 08/13/2025 UACS bacteria 1+ abnormal Refer ence Range : <=Tra ce, Non-C ath Not Available [facility] [address] [place] [address], 75424, 08/13/2025 21:57:49 08/13/20 25 08/13/2025 UACS UA mucous Presen t Not Available [facility] [address] [place] [address], 08939, 08/13/2025 21:57:49 08/13/20 25 08/13/2025 UACS urine ascorbic acid Negati ve Ascor bic acid can inter fere with the detec tion of blood , gluco se, and nitri te. Not Available [facility] [address] [place] [address], 67778, 08/13/2025 21:57:49 08/13/20 25 08/14/2025 C URINE urine culture (new) abnormal Print Date/ Time: 2024 08:15 CONTROL ENGINEER Patie nt: JANINA WHITE P Micro biolo gy - Uroge nital Legen d: c=Cor recte d, F=Res ult Comme nt, S=Idalia cepti ble, I=Int ermed iate, R=Res istan t, N/A=N ot Appli cable PROCE DURE: Urine Cultu re [] ACCES LIA: [id number] SOURC E: Urine BODY SITE: COLLE CTED DATE/ TIME: 08/13 20:47 CONTROL ENGINEER RECEI ELVA DATE/ TIME: 08/13 20:58 CONTROL ENGINEER START DATE/ TIME: 08/13 20:58 CONTROL ENGINEER FREE TEXT SOURC E: [place] ELIMI NARY REPOR TS Preli minar y Repor t [] Verif ied Date/ Time: 2024 08:15 CONTROL ENGINEER 10,00 0 cfu/m l Gram Negat marquis Rods Not Available [facility] [address] [place] [address], 42339, 08/14/2025 09:15:26 08/13/2008/13/2025 BGV base excess 2 mmol/ L -2-3 Not Available [facility] [address] [place] [address], 08052, 08/13/2025 20:47:25 08/13/20 25 08/13/2025 BGV O2 saturation, venous 37 % Not Available [facility] - [facility] [address] [place] [address], 92100, 08/13/2025 20:47:25 08/13/20 25 08/13/2025 BGV carboxyhemog lobin, venous 1.1 % 0.5-1. 5 Luzmaria l Range : Nonsm okers : 0.5 - 1.5 % Smoke rs : 1 - 2 packs /day : 4.0 - 5.0 % Great er than 2 packs /day : 8.0 - 9.0 % Toxic : Great er than 20.0 % Buford l : Great er than 50.0 % Not Available Ar Only - [facility] [address] [place] [address], 21285, 08/13/2025 20:47:25 08/13/20 25 08/13/2025 BGV methemoglobi n 1.8 % 0.0-1. 5 high Not Available [facility] Only - [facility] [address] [place] [address], 20434, 08/13/2025 20:47:25 08/13/20 25 08/13/2025 BGV pH 7.37 7.35-7 .45 Not Available [facility] Only - [facility] [address] [place] [address], 95099, 08/13/2025 20:47:25 08/13/20 25 08/13/2025 BGV pCO2 47 mmHg 39-55 Not Available [facility] Only - [facility] [address] [place] [address], 77513, 08/13/2025 20:47:25 08/13/20 25 08/13/2025 BGV HCO3 26 mmol/ L 18-23 high Not Available [facility] Only - [facility] [address] [place] [address], 12098, 08/13/2025 20:47:25 08/13/20 25 08/13/2025 BGV pO2 24 mmHg 25-40 low Not Available Ar Only - [facility] [address] [place] [address], [id number], 08/13/2025 20:47:25 08/13/20 25 08/13/2025 EGFR eGFR 83 mL/mi n/1.7 3m? This eGFR is calcu [...] Sc Only - [facility] [address] [place] [address], [id number], 08/13/2025 19:53:52 08/13/20 25 08/13/2025 LPSE lipase,serum 37 u/L 16-77 Not Dalila ilable Sc Only - [facility] [address] [place] [address], [id number], 08/13/2025 19:53:50 08/13/20 25 08/13/2025 LDH LD 166 u/L 81-234 Not Available Sc Only - [facility] [address] [place] [address], [id number], 08/13/2025 19:53:49 08/13/20 25 08/13/2025 CMP sodium 137 mmol/ L 135-14 8 Not Available Sc Only - [facility] [address] [place] [address], 54495, 08/13/2025 19:53:47 08/13/20 25 08/13/2025 CMP potassium 4.4 mmol/ L 3.5-5. 3 Not Available Sc Only - [facility] [address] [place] [address], 22837, 08/13/2025 19:53:47 08/13/20 25 08/13/2025 CMP chloride 102 mmol/ L 96-112 Not Available Ar Only - [facility] [address] [place] [address], 25870, 08/13/2025 19:53:47 08/13/20 25 08/13/2025 CMP CO2 27 mmol/ L 23-33 Not Available Ar Only - [facility] [address] [place] [address], 99765, 08/13/2025 19:53:47 08/13/20 25 08/13/2025 CMP BUN 11 mg/dL 7-18 Not Available Ar Only - [facility] [address] [place] [address], 22711, 08/13/2025 19:53:47 08/13/20 25 08/13/2025 CMP creatinine 0.84 mg/dL 0.55-1 .02 Not Available Ar Only - [facility] [address] [place] [address], 31811, 08/13/2025 19:53:47 08/13/20 25 08/13/2025 CMP glucose 147 mg/dL 65-99 high Not Availabl e Ar Only - [facility] [address] [place] [address], 97379, 08/13/2025 19:53:47 08/13/20 25 08/13/2025 CMP calcium 8.7 mg/dL 8.5-10 .1 Not Available Ar Only - [facility] [address] [place] [address], 49678, 08/13/2025 19:53:47 08/13/20 25 08/13/2025 CMP total protein 7.3 g/dL 6.4-8. 2 Not Available Ar Only - [facility] [address] [place] [address], 72162, 08/13/2025 19:53:47 08/13/20 25 08/13/2025 CMP albumin 3.2 g/dL 3.4-5. 0 low Not Available Ar Only - [facility] [address] [place] [address], 82630, 08/13/2025 19:53:47 08/13/20 25 08/13/2025 CMP bilirubin (total) 0.6 mg/dL 0.2-1. 0 Not Available Ar Only - [facility] [address] [place] [address], 25421, 08/13/2025 19:53:47 08/13/20 25 08/13/2025 CMP AST 32 u/L 15-37 Not Available Ar Only - [facility] [address] [place] [address], 07909, 08/13/2025 19:53:47 08/13/20 25 08/13/2025 CMP alk phos 159 u/L 46-116 high Not Availab le Ar Only - [facility] [address] [place] [address], 77863, 08/13/2025 19:53:47 08/13/20 25 08/13/2025 CMP ALT 29 u/L 14-59 Not Available [facility] [address] [place] [address], 48027, 08/13/2025 19:53:47 08/13/20 25 08/13/2025 CMP anion gap 8 mmol/ L 7-16 Not Available [facility] [address] [place] [address], 85143, 08/13/2025 19:53:47 08/13/20 25 08/13/2025 DBIL bilirubin (direct) 0.13 mg/dL 0.00-0 .20 Not Available Ar Only - [facility] [address] [place] [address], 87363, 08/13/2025 19:53:46 08/13/20 25 08/13/2025 CBCW/ DIFF WBC 10.06 x10 3.98-1 0.04 high Not Available [facility] [address] [place] [address], 31304, 08/13/2025 19:37:07 08/13/20 25 08/13/2025 CBCW/ DIFF RBC 4.36 x10 3.93-5 .22 Not Available Sc Only - [facility] [address] [place] [address], 68579, 08/13/2025 19:37:07 08/13/20 25 08/13/2025 CBCW/ DIFF hemoglobin 11.3 g/dL 11.2-1 5.7 Not Available Sc Only - [facility] [address] [place] [address], 75757, 08/13/2025 19:37:07 08/13/20 25 08/13/2025 CBCW/ DIFF hematocrit 36.7 % 34.1-4 4.9 Not Available Sc Only - [facility] [address] [place] [address], 31074, 08/13/2025 19:37:07 08/13/20 25 08/13/2025 CBCW/ DIFF MCV 84.2 fL 79.4-9 4.8 Not Available Ar Only - [facility] [address] [place] [address], 89187, 08/13/2025 19:37:07 08/13/20 25 08/13/2025 CBCW/ DIFF MCH 25.9 pg 25.6-3 2.2 Not Available Sc Only - [facility] [address] [place] [address], 06091, 08/13/2025 19:37:07 08/13/20 25 08/13/2025 CBCW/ DIFF MCHC 30.8 g/dL 32.2-3 5.5 low Not Available Sc Only - [facility] [address] [place] [address], 28403, 08/13/2025 19:37:07 08/13/20 25 08/13/2025 CBCW/ DIFF rdwcv 13.1 % 11.7-1 4.4 Not Available Sc Only - [facility] [address] [place] [address], 99859, 08/13/2025 19:37:07 08/13/20 25 08/13/2025 CBCW/ DIFF rdwsd 39.9 fL 36.4-4 6.3 Not Available Sc Only - [facility] [address] [place] [address], 44278, 08/13/2025 19:37:07 08/13/20 25 08/13/2025 CBCW/ DIFF platelets 267 x10 182-36 9 Not Available Sc Only - [facility] [address] [place] [address], 81898, 08/13/2025 19:37:07 08/13/20 25 08/13/2025 CBCW/ DIFF MPV 9.1 fL 9.4-12 .3 low Not Available Sc Only - [facility] [address] [place] [address], 52329, 08/13/2025 19:37:07 08/13/20 25 08/13/2025 AUTOD IFF neutrophils 71.1 % 34.0-7 1.1 Not Available Sc Only - [facility] [address] [place] [address], 96181, 08/13/2025 19:37:06 08/13/20 25 08/13/2025 AUTOD IFF lymphocytes 18.6 % 19.3-5 1.7 low Not Available Sc Only - [facility] [address] [place] [address], 36331, 08/13/2025 19:37:06 08/13/20 25 08/13/2025 AUTOD IFF monocytes 7.0 % 4.7-12 .5 Not Available Sc Only - [facility] [address] [place] [address], 44627, 08/13/2025 19:37:06 08/13/20 25 08/13/2025 AUTOD IFF eosinophils 2.4 % 0.7-5. 8 Not Available Sc Only - [facility] [address] [place] [address], 17578, 08/13/2025 19:37:06 08/13/20 25 08/13/2025 AUTOD IFF basophils 0.6 % 0.1-1. 2 Not Available Sc Only - [facility] [address] [place] [address] [place], [address], 08/13/2025 19:37:06 08/13/20 25 08/13/2025 AUTOD IFF imm auto 0.3 % 0.0-1. 5 Not Available Ar Only - [address], 81333, 08/13/2025 19:37:06 08/13/20 25 08/13/2025 AUTOD IFF NRBC auto 0.0 /100W BC 0.0-0. 2 Not Available Ar Only - [address], 83863, 08/13/2025 19:37:06 08/13/20 25 08/13/2025 AUTOD IFF absolute neutrophils 7.16 x10 1.56-6 .13 high Not Available Ar Only - [address], 43447, 08/13/2025 19:37:06 08/13/20 25 08/13/2025 AUTOD IFF absolute lymphocytes 1.87 x10 1.18-3 .74 Not Available Ar Only - [address], 37849, 08/13/2025 19:37:06 08/13/20 25 08/13/2025 AUTOD IFF absolute monocytes 0.70 x10 0.24-0 .36 high Not Available Ar Only - [address], 39619, 08/13/2025 19:37:06 08/13/20 25 08/13/2025 AUTOD IFF absolute eosinophils 0.24 x10 0.04-0 .36 Not Available Ar Only - [address], 58667, 08/13/2025 19:37:06 08/13/20 25 08/13/2025 AUTOD IFF absolute basophils 0.06 x10 0.01-0 .08 Not Available Ar Only - [address], [place], [address], 08/13/2025 19:37:06 08/13/20 25 08/13/2025 AUTOD IFF imm absolute 0.03 x10 0.00-[address] [facility] [address] [place] [address], 45806, 08/13/2025 19:37:06 08/13/20 25 08/13/2025 AUTOD IFF NRBC absolute 0.00 x10 0.00-0 .01 Not Available [facility] [address] [place] [address], 92998, 08/13/2025 19:37:06 08/20/20 25 08/22/2025 C URINE urine culture (new) abnormal Print Date/ Time: 2024 07:59 CONTROL ENGINEER Patie nt: JANINA WHITE P Micro biolo gy - Uroge nital Legen d: c=Cor recte d, F=Res ult Comme nt, S=Idalia cepti ble, I=Int ermed iate, R=Res istan t, N/A=N ot Appli cable PROCE DURE: Urine Cultu re [] ACCES LIA: [id number] SOURC E: Urine BODY SITE: COLLE CTED DATE/ TIME: 2024 16:54 CONTROL ENGINEER RECEI ELVA DATE/ TIME: 2024 17:42 CONTROL ENGINEER START DATE/ TIME: 2024 17:42 CONTROL ENGINEER FREE TEXT SOURC E: FI NAL REPOR TS Final Repor t [] Verif ied Date/ Time: 2024 07:59 CONTROL ENGINEER 40,00 0 cfu/m l Mixed gram- posit marquis sanket inclu ding: Strep tococ cus agala ctiae (Grou p B) [place] ELIMI NARY REPOR TS Preli minar y Repor t [] Verif ied Date/ Time: 2024 07:31 CONTROL ENGINEER No growt h after 12-24 hours incub ation Not Available Ar Only - [facility] [address] [place] [address], 81877, 08/22/2025 08:59:33 08/20/20 25 08/20/2025 UACS color Colorl ess Not Available [address], 13825, 08/20/2025 18:34:51 08/20/20 25 08/20/2025 UACS appearance Clear Not Avail able [address], 69028, 08/20/2025 18:34:51 08/20/20 25 08/20/2025 UACS specific gravity 1.004 1.003- 1.035 Not Available [address], 26817, 08/20/2025 18:34:51 08/20/20 25 08/20/2025 UACS pH urine 7.0 5.0-8. 0 Not Available [address], 74289, 08/20/2025 18:34:51 08/20/20 25 08/20/2025 UACS protein Negati ve Not Available [address], 61117, 08/20/2025 18:34:51 08/20/20 25 08/20/2025 UACS urine glucose Negati ve Not Available [facility] - [address], 73364, 08/20/2025 18:34:51 08/20/20 25 08/20/2025 UACS ketones Negati ve Not Available [address], 27447, 08/20/2025 18:34:51 08/20/20 25 08/20/2025 UACS urine bilirubin Negati ve Not Available [address], 46995, 08/20/2025 18:34:51 08/20/20 25 08/20/2025 UACS urine HGB Negati ve Not Available [address], 76943, 08/20/2025 18:34:51 08/20/20 25 08/20/2025 UACS nitrite Negati ve Not Available [address], 61330, 08/20/2025 18:34:51 08/20/20 25 08/20/2025 UACS leukocyte esterase Trace abnormal Not Available [address], [address], 08/20/2025 18:34:51 08/20/20 25 08/20/2025 UACS urobilinogen Negati ve Refer ence Range : <=1 Not Available [address], 99057, 08/20/2025 18:34:51 08/20/20 25 08/20/2025 UACS urine WBCs 3-5 Refer ence Range : <=5 Not Available [address], 90354, 08/20/2025 18:34:51 08/20/20 25 08/20/2025 UACS urine RBCs 0-2 Refer ence Range : <=2 Not Available [address], 88847, 08/20/2025 18:34:51 08/20/20 25 08/20/2025 UACS squamous epithelial cells Few Refer ence Range : <=3+ Not Available [address], 50241, 08/20/2025 18:34:51 08/20/20 25 08/20/2025 UACS bacteria Negati ve Refer ence Range : <=Tra ce, Non-C ath Not Available Ar Only - [facility] [address] [place] [address], 12132, 08/20/2025 18:34:51 08/20/20 25 08/20/2025 UACS urine ascorbic acid Negati ve Ascor bic acid can inter fere with the detec tion of blood , gluco se, and nitri te. Not Available Ar Only - [facility] [address] [place] [address], 30143, 08/20/2025 18:34:51 08/20/20 25 08/21/2025 C URINE urine culture (new) Print Date/ Time: 2024 07:31 CONTROL ENGINEER Patie nt: JANINA WHITE P Micro biolo gy - Uroge nital Legen d: c=Cor recte d, F=Res ult Comme nt, S=Idalia cepti ble, I=Int ermed iate, R=Res istan t, N/A=N ot Appli cable PROCE DURE: Urine Cultu re [] ACCES LIA: [id number] SOURC E: Urine BODY SITE: COLLE CTED DATE/ TIME: 2024 16:54 CONTROL ENGINEER RECEI ELVA DATE/ TIME: 2024 17:42 CONTROL ENGINEER START DATE/ TIME: 2024 17:42 CONTROL ENGINEER FREE TEXT SOURC E: [place] ELIMI NARY REPOR TS Preli minar y Repor t [] Verif ied Date/ Time: 2024 07:31 CONTROL ENGINEER No growt h after 12-24 hours incub ation Not Available Ar Only - [facility] [address] [place] [address], 25547, 08/21/2025 08:31:05 08/20/20 25 08/20/2025 EGFR eGFR 93 mL/mi n/1.7 3m? This [...] prese nt. Not Available Sc Only - [facility] [address] [place] [address], 08112, 08/20/2025 17:23:53 08/20/20 25 08/20/2025 LPSE lipase,serum 31 u/L 16-77 Not Dalila ilable Sc Only - [facility] [address] [place] [address], 17183, 08/20/2025 17:23:52 08/20/20 25 08/20/2025 LDH LD 168 u/L 81-234 Not Available Sc Only - [facility] [address] [place] [address], 48234, 08/20/2025 17:23:51 08/20/20 25 08/20/2025 CMP sodium 136 mmol/ L 135-14 8 Not Available Sc Only - [facility] [address] [place] [address], 64353, 08/20/2025 17:23:50 08/20/20 25 08/20/2025 CMP potassium 4.3 mmol/ L 3.5-5. 3 Not Available Sc Only - [facility] [address] [place] [address], 43260, 08/20/2025 17:23:50 08/20/20 25 08/20/2025 CMP chloride 103 mmol/ L 96-112 Not Available Sc Only - [facility] [address] [place] [address], 08595, 08/20/2025 17:23:50 08/20/20 25 08/20/2025 CMP CO2 26 mmol/ L 23-33 Not Available Ar Only - [facility] [address] [place] [address], 93142, 08/20/2025 17:23:50 08/20/20 25 08/20/2025 CMP BUN 14 mg/dL 7-18 Not Available Ar Only - [facility] [address], 60213, 08/20/2025 17:23:50 08/20/20 25 08/20/2025 CMP creatinine 0.76 mg/dL 0.55-1 .02 Not Available Ar Only - [facility] [address] [place] [address], 86957, 08/20/2025 17:23:50 08/20/20 25 08/20/2025 CMP glucose 139 mg/dL 65-99 high Not Availabl e Ar Only - [facility] [address], 44492, 08/20/2025 17:23:50 08/20/20 25 08/20/2025 CMP calcium 8.9 mg/dL 8.5-10 .1 Not Available Ar Only - [facility] [address], 31912, 08/20/2025 17:23:50 08/20/20 25 08/20/2025 CMP total protein 6.9 g/dL 6.4-8. 2 Not Available Ar Only - [facility] [address] [place] [address], 84197, 08/20/2025 17:23:50 08/20/20 25 08/20/2025 CMP albumin 3.1 g/dL 3.4-5. 0 low Not Available Ar Only - [facility] [address], 97253, 08/20/2025 17:23:50 08/20/20 25 08/20/2025 CMP bilirubin (total) 0.6 mg/dL 0.2-1. 0 Not Available Ar Only - [facility] [address] [place] [address], 99130, 08/20/2025 17:23:50 08/20/20 25 08/20/2025 CMP AST 28 u/L 15-37 Not Available Ar Only - [facility] [address] [place] [address], 51323, 08/20/2025 17:23:50 08/20/20 25 08/20/2025 CMP alk phos 149 u/L 46-116 high Not Availab le Ar Only - [facility] [address] [place] [address], 14559, 08/20/2025 17:23:50 08/20/20 25 08/20/2025 CMP ALT 26 u/L 14-59 Not Available Ar Only - [facility] [address] [place] [address], 34822, 08/20/2025 17:23:50 08/20/20 25 08/20/2025 CMP anion gap 7 mmol/ L 7-16 Not Available Ar Only - [facility] [address] [place] [address], 54331, 08/20/2025 17:23:50 08/20/20 25 08/20/2025 DBIL bilirubin (direct) 0.14 mg/dL 0.00-0 .20 Not Available Ar Only - [facility] [address] [place] [address], 92822, 08/20/2025 17:23:49 08/20/20 25 08/20/2025 CBCW/ DIFF WBC 7.00 x10 3.98-1 0.04 Not Available Ar Only - [facility] [address], 80597, 08/20/2025 17:12:10 08/20/20 25 08/20/2025 CBCW/ DIFF RBC 4.07 x10 3.93-5 .22 Not Available Ar Only - [facility] [address] [place] [address], 29287, 08/20/2025 17:12:10 08/20/20 25 08/20/2025 CBCW/ DIFF hemoglobin 10.5 g/dL 11.2-1 5.7 low Not Available Sc Only - [facility] [address] [place] [address], 19247, 08/20/2025 17:12:10 08/20/20 25 08/20/2025 CBCW/ DIFF hematocrit 33.4 % 34.1-4 4.9 low Not Available Sc Only - [facility] [address] [place] [address], 30810, 08/20/2025 17:12:10 08/20/20 25 08/20/2025 CBCW/ DIFF MCV 82.1 fL 79.4-9 4.8 Not Available Sc Only - [facility] [address] [place] [address], 90335, 08/20/2025 17:12:10 08/20/20 25 08/20/2025 CBCW/ DIFF MCH 25.8 pg 25.6-3 2.2 Not Available Sc Only - [facility] [address] [place] [address], 27169, 08/20/2025 17:12:10 08/20/20 25 08/20/2025 CBCW/ DIFF MCHC 31.4 g/dL 32.2-3 5.5 low Not Available Sc Only - [facility] [address] [place] [address], 88850, 08/20/2025 17:12:10 08/20/20 25 08/20/2025 CBCW/ DIFF rdwcv 13.0 % 11.7-1 4.4 Not Available Sc Only - [facility] [address] [place] [address], 24795, 08/20/2025 17:12:10 08/20/20 25 08/20/2025 CBCW/ DIFF rdwsd 38.7 fL 36.4-4 6.3 Not Available Sc Only - [facility] [address] [place] [address], 10525, 08/20/2025 17:12:10 08/20/20 25 08/20/2025 CBCW/ DIFF platelets 206 x10 182-36 9 Not Available Sc Only - [facility] [address] [place] [address], 88621, 08/20/2025 17:12:10 08/20/20 25 08/20/2025 CBCW/ DIFF MPV 9.1 fL 9.4-12 .3 low Not Available Sc Only - [facility] [address] [place] [address], 37044, 08/20/2025 17:12:10 08/20/20 25 08/20/2025 AUTOD IFF neutrophils 65.5 % 34.0-7 1.1 Not Available Sc Only - [facility] [address] [place] [address], 37864, 08/20/2025 17:12:09 08/20/20 25 08/20/2025 AUTOD IFF lymphocytes 22.3 % 19.3-5 1.7 Not Available Sc Only - [facility] [address] [place] [address], 69190, 08/20/2025 17:12:09 08/20/20 25 08/20/2025 AUTOD IFF monocytes 8.1 % 4.7-12 .5 Not Available Sc Only - [facility] [address] [place] [address], 51047, 08/20/2025 17:12:09 08/20/20 25 08/20/2025 AUTOD IFF eosinophils 3.3 % 0.7-5. 8 Not Available Sc Only - [facility] [address] [place] [address], 27320, 08/20/2025 17:12:09 08/20/20 25 08/20/2025 AUTOD IFF basophils 0.7 % 0.1-1. 2 Not Available Sc Only - [facility] [address] [place] [address], 75295, 08/20/2025 17:12:09 08/20/20 25 08/20/2025 AUTOD IFF imm auto 0.1 % 0.0-1. 5 Not Available Sc Only - [facility] [address] [place] [address], 78683, 08/20/2025 17:12:09 08/20/20 25 08/20/2025 AUTOD IFF NRBC auto 0.0 /100W BC 0.0-0. 2 Not Available Sc Only - [facility] [address] [place] [address], 93452, 08/20/2025 17:12:09 08/20/20 25 08/20/2025 AUTOD IFF absolute neutrophils 4.58 x10 1.56-6 .13 Not Available Sc Only - [facility] [address] [place] [address], 94539, 08/20/2025 17:12:09 08/20/20 25 08/20/2025 AUTOD IFF absolute lymphocytes 1.56 x10 1.18-3 .74 Not Available Sc Only - [facility] [address] [place] [address], 88058, 08/20/2025 17:12:09 08/20/20 25 08/20/2025 AUTOD IFF absolute monocytes 0.57 x10 0.24-0 .36 high Not Available Sc Only - [facility] [address] [place] [address], 36438, 08/20/2025 17:12:09 08/20/20 25 08/20/2025 AUTOD IFF absolute eosinophils 0.23 x10 0.04-0 .36 Not Available Sc Only - [facility] [address] [place] [address], 51525, 08/20/2025 17:12:09 08/20/20 25 08/20/2025 AUTOD IFF absolute basophils 0.05 x10 0.01-0 .08 Not Available Sc Only - [facility] [address] [place] [address], 71075, 08/20/2025 17:12:09 08/20/20 25 08/20/2025 AUTOD IFF imm absolute 0.01 x10 0.00-[address] [facility] [address] [place] [address], 45004, 08/20/2025 17:12:09 08/20/20 25 08/20/2025 AUTOD IFF NRBC absolute 0.00 x10 0.00-[address] [facility] [address] [place] [address], 50754, 08/20/2025 17:12:09 08/29/20 25 09/01/2025 C URINE urine culture (new) Print Date/ Time: 09/01 08:13 CONTROL ENGINEER Patie nt: JANINA WHITE Micro biolo gy - Uroge nital Legen d: c=Cor recte d, F=Res ult Comme nt, S=Idalia cepti ble, I=Int ermed iate, R=Res istan t, N/A=N ot Appli cable PROCE DURE: Urine Cultu re [] ACCES LIA: [id number] SOURC E: Urine BODY SITE: COLLE CTED DATE/ TIME: 08/29 21:59 CONTROL ENGINEER RECEI ELVA DATE/ TIME: 08/29 22:28 CONTROL ENGINEER START DATE/ TIME: 08/29 22:28 CONTROL ENGINEER FREE TEXT SOURC E: FI NAL REPOR TS Final Repor t [] Verif ied Date/ Time: 09/01 08:13 CONTROL ENGINEER 30,00 0 cfu/m l Mixed gram posit marquis sanket inclu ding presu mptiv e Grp B Strep VA ELIMI NARY REPOR TS Preli minar y Repor t [] Verif ied Date/ Time: 08/31 07:15 CONTROL ENGINEER 10,00 0 cfu/m l Gram Posit marquis Cocci Preli minar y Repor t [] Verif ied Date/ Time: 08/30 07:36 CONTROL ENGINEER No growt h. Speci men recei elva after 6pm. Not Available Ar Only - [facility] [address], [address], 09/01/2025 09:13:47 08/29/2008/29/2025 UACS color Yellow Not Available Ar Only - [facility] [address] [place] [address], 51198, 08/29/2025 23:36:06 08/29/20 25 08/29/2025 UACS appearance Hazy Not Avail able Ar Only - [facility] [address] [place] [address], 08732, 08/29/2025 23:36:06 08/29/20 25 08/29/2025 UACS specific gravity 1.023 1.003- 1.035 Not Available [facility] [address] [place] [address], 41411, 08/29/2025 23:36:06 08/29/20 25 08/29/2025 UACS pH urine 6.0 5.0-8. 0 Not Available Ar Only - [facility] [address] [place] [address], 96196, 08/29/2025 23:36:06 08/29/20 25 08/29/2025 UACS protein 1+ abnormal Not Availa ble Ar Only - [address], [address], 08/29/2025 23:36:06 08/29/20 25 08/29/2025 UACS urine glucose Negati ve Not Available Ar Only - [facility] [address] [place] [address], 88949, 08/29/2025 23:36:06 08/29/20 25 08/29/2025 UACS ketones Negati ve Not Available Ar Only - [facility] [address] [place] [address], 91807, 08/29/2025 23:36:06 08/29/20 25 08/29/2025 UACS urine bilirubin Negati ve Not Available Ar Only - [facility] [address] [place] [address], 91355, 08/29/2025 23:36:06 08/29/20 25 08/29/2025 UACS urine HGB Negati ve Not Available Ar Only - [facility] [address] [place] [address], 79585, 08/29/2025 23:36:06 08/29/20 25 08/29/2025 UACS nitrite Negati ve Not Available Ar Only - [facility] [address] [place] [address], 15096, 08/29/2025 23:36:06 08/29/20 25 08/29/2025 UACS leukocyte esterase 3+ abnormal Not Available [facility] - [facility] [address] [place] [address], 01820, 08/29/2025 23:36:06 08/29/20 25 08/29/2025 UACS urobilinogen Negati ve Refer ence Range : <=1 Not Available Ar Only - [facility] [address] [place] [address], 44471, 08/29/2025 23:36:06 08/29/20 25 08/29/2025 UACS urine WBCs 11-25 abnormal Refer ence Range : <=5 Not Available Ar Only - [facility] [address] [place] [address], 22648, 08/29/2025 23:36:06 08/29/20 25 08/29/2025 UACS urine RBCs 3-5 abnormal Refer ence Range : <=2 Not Available Ar Only - [facility] [address] [place] [address], [id number], 08/29/2025 23:36:06 08/29/20 25 08/29/2025 UACS squamous epithelial cells 3+ Refer ence Range : <=3+ Not Available Ar Only - [facility] [address] [place] [address], [id number], 08/29/2025 23:36:06 08/29/20 25 08/29/2025 UACS bacteria Trace abnormal Refer ence Range : <=Tra ce, Non-C ath Not Available Ar Only - [facility] [address] [place] [address], [id number], 08/29/2025 23:36:06 08/29/20 25 08/29/2025 UACS UA mucous Presen t Not Available Ar Only - [facility] [address] [place] [address], [id number], 08/29/2025 23:36:06 08/29/20 25 08/29/2025 UACS urine ascorbic acid Negati ve Ascor bic acid can inter fere with the detec tion of blood , gluco se, and nitri te. Not Available Ar Only - [facility] [address] [place] [address], [id number], 08/29/2025 23:36:06 08/29/20 25 08/31/2025 C URINE urine culture (new) abnormal Print Date/ Time: 08/31 07:15 CONTROL ENGINEER Patie nt: JANINA WHITE P Micro biolo gy - Uroge nital Legen d: c=Cor recte d, F=Res ult Comme nt, S=Idalia cepti ble, I=Int ermed iate, R=Res istan t, N/A=N ot Appli cable PROCE DURE: Urine Cultu re [] ACCES LIA: [id number] [id number] SOURC E: Urine BODY SITE: COLLE CTED DATE/ TIME: 08/29 21:59 CONTROL ENGINEER RECEI ELVA DATE/ TIME: 08/29 22:28 CONTROL ENGINEER START DATE/ TIME: 08/29 22:28 CONTROL ENGINEER FREE TEXT SOURC E: VA ELIMI NARY REPOR TS Preli minar y Repor t [] Verif ied Date/ Time: 08/31 07:15 CONTROL ENGINEER 10,00 0 cfu/m l Gram Posit marquis Cocci Preli minar y Repor t [] Verif ied Date/ Time: 08/30 07:36 CONTROL ENGINEER No growt h. Speci men recei elva after 6pm. Not Available Ar Only - [facility] [address] [place] [address], [address], 08/31/2025 08:15:21 08/29/20 25 08/31/2025 C URINE urine culture (new) abnormal Print Date/ Time: 08/31 07:15 CONTROL ENGINEER Patie nt: RICE, KATHL EEN P Micro biolo gy - Uroge nital Legen d: c=Cor recte d, F=Res ult Comme nt, S=Idalia cepti ble, I=Int ermed iate, R=Res istan t, N/A=N ot Appli cable PROCE DURE: Urine Cultu re [] ACCES LIA: [id number] [id number] SOURC E: Urine BODY SITE: COLLE CTED DATE/ TIME: 08/29 21:59 CONTROL ENGINEER RECEI ELVA DATE/ TIME: 08/29 22:28 CONTROL ENGINEER START DATE/ TIME: 08/29 22:28 CONTROL ENGINEER FREE TEXT SOURC E: VA ELIMI NARY REPOR TS Preli minar y Repor t [] Verif ied Date/ Time: 08/31 07:15 CONTROL ENGINEER 10,00 0 cfu/m l Gram Posit marquis Cocci Preli minar y Repor t [] Verif ied Date/ Time: 08/30 07:36 CONTROL ENGINEER No growt h. Speci men recei elva after 6pm. Not Available Ar Only - [facility] [address] [place] [address], [address], 08/31/2025 08:15:19 08/29/2008/30/2025 C URINE urine culture (new) Print Date/ Time: 08/30 07:36 CONTROL ENGINEER Patie nt: JANINA WHITE EEN P Micro biolo gy - Uroge nital Legen d: c=Cor recte d, F=Res ult Comme nt, S=Idalia cepti ble, I=Int ermed iate, R=Res istan t, N/A=N ot Appli cable PROCE DURE: Urine Cultu re [] ACCES LIA: [id number] 0-005 [id number] SOURC E: Urine BODY SITE: COLLE CTED DATE/ TIME: 08/29 21:59 CONTROL ENGINEER RECEI ELVA DATE/ TIME: 08/29 22:28 CONTROL ENGINEER START DATE/ TIME: 08/29 22:28 CONTROL ENGINEER FREE TEXT SOURC E: VA ELIMI NARY REPOR TS Preli minar y Repor t [] Verif ied Date/ Time: 08/30 07:36 CONTROL ENGINEER No growt h. Speci men recei elva after 6pm. Not Available Sc Only - [facility] [address] [place] [address], [address], 08/30/2025 08:36:11 08/29/20 25 08/29/2025 EGFR eGFR 92 mL/mi n/1.7 3m? This eGFR is calcu [...] Sc Only - [facility] [address] [place] [address], [address], 08/29/2025 17:20:48 08/29/20 25 08/29/2025 LPSE lipase,serum 40 u/L Not Dalila ilable Sc Only - [facility] [address] [place] [address], [address], 08/29/2025 17:20:47 08/29/20 25 08/29/2025 LDH LD 165 u/L 81-234 Not Available Ar Only - [facility] [address] [place] [address], [address], 08/29/2025 17:20:45 08/29/20 25 08/29/2025 CMP sodium 141 mmol/ L 135-14 8 Not Available Ar Only - [facility] [address], [address], 08/29/2025 17:20:43 08/29/20 25 08/29/2025 CMP potassium 3.8 mmol/ L 3.5-5. 3 Not Available Ar Only - [facility] [address], [address], 08/29/2025 17:20:43 08/29/20 25 08/29/2025 CMP chloride 105 mmol/ L 96-112 Not Available Ar Only - [facility] [address], [address], 08/29/2025 17:20:43 08/29/20 25 08/29/2025 CMP CO2 27 mmol/ L 23-33 Not Available Ar Only - [facility] [address], [address], 08/29/2025 17:20:43 08/29/20 25 08/29/2025 CMP BUN 16 mg/dL 7-18 Not Available Ar Only - [facility] [address], [address], 08/29/2025 17:20:43 08/29/20 25 08/29/2025 CMP creatinine 0.77 mg/dL 0.55-1 .02 Not Available Ar Only - [facility] [address], [address], 08/29/2025 17:20:43 08/29/20 25 08/29/2025 CMP glucose 108 mg/dL 65-99 high Not Availabl e Ar Only - [facility] [address], [address], 08/29/2025 17:20:43 08/29/20 25 08/29/2025 CMP calcium 8.3 mg/dL 8.5-10 .1 low Not Available Sc Only - [facility] [address] [place] [address], 15[address], 08/29/2025 17:20:43 08/29/20 25 08/29/2025 CMP total protein 7.2 g/dL 6.4-8. 2 Not Available Sc Only - [facility] [address] [place] [address], [address], 08/29/2025 17:20:43 08/29/20 25 08/29/2025 CMP albumin 3.0 g/dL 3.4-5. 0 low Not Available Ar Only - [facility] [address] [place] [address], [address], 08/29/2025 17:20:43 08/29/20 25 08/29/2025 CMP bilirubin (total) 0.3 mg/dL 0.2-1. 0 Not Available Ar Only - [facility] [address] [place] [address], [address], 08/29/2025 17:20:43 08/29/20 25 08/29/2025 CMP AST 30 u/L 15-37 Not Available Sc Only - [facility] [address] [place] [address], [address], 08/29/2025 17:20:43 08/29/20 25 08/29/2025 CMP alk phos 164 u/L 46-116 high Not Availab le Sc Only - [facility] [address] [place] [address], [address], 08/29/2025 17:20:43 08/29/20 25 08/29/2025 CMP ALT 28 u/L 14-59 Not Available Sc Only - [facility] [address] [place] [address], 569[address], 08/29/2025 17:20:43 08/29/20 25 08/29/2025 CMP anion gap 9 mmol/ L 7-16 Not Available Ar Only - [facility] [address], [address], 08/29/2025 17:20:43 08/29/20 25 08/29/2025 DBIL bilirubin (direct) 0.07 mg/dL 0.00-0 .20 Not Available Ar Only - [facility] [address] [place] [address], [address], 08/29/2025 17:20:41 08/29/20 25 08/29/2025 CBCW/ DIFF WBC 7.75 x10 3.98-1 0.04 Not Available Ar Only - [facility] [address], [address], 08/29/2025 17:02:42 08/29/20 25 08/29/2025 CBCW/ DIFF RBC 4.19 x10 3.93-5 .22 Not Available Ar Only - [facility] [address] [place] [address], 214[address], 08/29/2025 17:02:42 08/29/20 25 08/29/2025 CBCW/ DIFF hemoglobin 10.9 g/dL 11.2-1 5.7 low Not Available Ar Only - [facility] [address] [place] [address], 367[address], 08/29/2025 17:02:42 08/29/20 25 08/29/2025 CBCW/ DIFF hematocrit 34.6 % 34.1-4 4.9 Not Available Ar Only - [facility] [address] [place] [address], 85[address], 08/29/2025 17:02:42 08/29/20 25 08/29/2025 CBCW/ DIFF MCV 82.6 fL 79.4-9 4.8 Not Available Ar Only - [facility] [address] [place] [address], [address]67, 08/29/2025 17:02:42 08/29/20 25 08/29/2025 CBCW/ DIFF MCH 26.0 pg 25.6-3 2.2 Not Available Sc Only - [facility] [address] [place] [address], 25[address], 08/29/2025 17:02:42 08/29/20 25 08/29/2025 CBCW/ DIFF MCHC 31.5 g/dL 32.2-3 5.5 low Not Available Sc Only - [facility] [address] [place] [address], 285[address], 08/29/2025 17:02:42 08/29/20 25 08/29/2025 CBCW/ DIFF rdwcv 13.2 % 11.7-1 4.4 Not Available Sc Only - [facility] [address] [place] [address], [address], 08/29/2025 17:02:42 08/29/20 25 08/29/2025 CBCW/ DIFF rdwsd 39.8 fL 36.4-4 6.3 Not Available Sc Only - [facility] [address] [place] [address], [address], 08/29/2025 17:02:42 08/29/20 25 08/29/2025 CBCW/ DIFF platelets 265 x10 182-36 9 Not Available Sc Only - [facility] [address] [place] [address], [address], 08/29/2025 17:02:42 08/29/20 25 08/29/2025 CBCW/ DIFF MPV 9.4 fL 9.4-12 .3 Not Available Sc Only - [facility] [address] [place] [address], 52880, 08/29/2025 17:02:42 08/29/20 25 08/29/2025 AUTOD IFF neutrophils 65.3 % 34.0-7 1.1 Not Available Sc Only - [facility] [address] [place] [address], [address], 08/29/2025 17:02:40 08/29/20 25 08/29/2025 AUTOD IFF lymphocytes 22.6 % 19.3-5 1.7 Not Available Sc Only - [facility] [address] [place] [address], [address]57, 08/29/2025 17:02:40 08/29/20 25 08/29/2025 AUTOD IFF monocytes 7.7 % 4.7-12 .5 Not Available Sc Only - [facility] [address], [address], 08/29/2025 17:02:40 08/29/20 25 08/29/2025 AUTOD IFF eosinophils 3.5 % 0.7-5. 8 Not Available Ar Only - [facility] [address] [place] [address], 06608, 08/29/2025 17:02:40 08/29/20 25 08/29/2025 AUTOD IFF basophils 0.8 % 0.1-1. 2 Not Available Ar Only - [facility] [address], [address], 08/29/2025 17:02:40 08/29/20 25 08/29/2025 AUTOD IFF imm auto 0.1 % 0.0-1. 5 Not Available Ar Only - [facility] [address] [place] [address], 09146, 08/29/2025 17:02:40 08/29/20 25 08/29/2025 AUTOD IFF NRBC auto 0.0 /100W BC 0.0-0. 2 Not Available Ar Only - [facility] [address] [place] [address], 23556, 08/29/2025 17:02:40 08/29/20 25 08/29/2025 AUTOD IFF absolute neutrophils 5.06 x10 1.56-6 .13 Not Available Ar Only - [facility] [address] [place] [address], [address], 08/29/2025 17:02:40 08/29/20 25 08/29/2025 AUTOD IFF absolute lymphocytes 1.75 x10 1.18-3 .74 Not Available Sc Only - [facility] [address] [place] [address], 15[address], 08/29/2025 17:02:40 08/29/20 25 08/29/2025 AUTOD IFF absolute monocytes 0.60 x10 0.24-0 .36 high Not Available Sc Only - [facility] [address] [place] [address], [address], 08/29/2025 17:02:40 08/29/20 25 08/29/2025 AUTOD IFF absolute eosinophils 0.27 x10 0.04-0 .36 Not Available Sc Only - [facility] [address], [address], 08/29/2025 17:02:40 08/29/20 25 08/29/2025 AUTOD IFF absolute basophils 0.06 x10 0.01-0 .08 Not Available Sc Only - [facility] [address], [address], 08/29/2025 17:02:40 08/29/20 25 08/29/2025 AUTOD IFF imm absolute 0.01 x10 0.00-0 .15 Not Available Ar Only - [facility] [address] [place] [address], [address], 08/29/2025 17:02:40 08/29/20 25 08/29/2025 AUTOD IFF NRBC absolute 0.00 x10 0.00-0 .01 Not Available Ar Only - [facility] [address] [place] [address], [address], 08/29/2025 17:02:40 06/05/20 25 06/03/2024 CT, angio gram, chest , w/ contr ast No observ ation record ed. [email or web address] Not Available 2024 16:05:59 06/07/20 25 06/07/2025 XR, chest , [address] [address] Teleph one Name: TL WHITE PAULINE [id number] am Date: 2024 Age: 54Phys ician: [...] PM cc: Page PAGE 1 of [facility] ES 1 MIKE Ar Only - [facility] [address] [place] [address], [address], 06/08/2025 14:33:15 07/27/20 25 07/27/2025 CT, abdom en + pelvi s, w/ contr ast [facility] [address] [place] [address] [phone] Name: TL WHITE Age: 54 : 1970 Exam Date: 2024 ACCESS ION: [id number] ORDERI WERNER MD: MILE HOLLINGSWORTH EXAMIN ATION: [...] ing approx imatel y 1.1 cm in the [facility] er. 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 [email or web address] [facility] - Radiology [address] [place], [address], 08/01/2025 17:37:33 08/03/20 25 08/03/2025 D abdom en 1 view [facility] [address] [place] [address] Name: TL WHITE Age: 54 : 1970 Exam Date: 2024 ACCESS ION: [id number] BLAISE CALDERA MD: BRIDGET BOWLES EXAM: Abdome [...] Signed : 20:05 Juwan Metzger MD INTERFACE Ar Only - [facility] [address] [place] [address], [address], 08/03/2025 21:09:24 08/20/20 25 08/20/2025 D abdom en 1 view [facility] [address] [place] [address] Name: TL WHITE Age: 54 : 1970 Exam Date: 2024 ACCESS ION: [id number] BLAISE CALDERA MD: ANKUSH JOEL EXAMIN ATION: Abdome n 1 View HISTOR Y: Compla int of abdome n pain x days. abd pain n/v COMPAR RAS: 2024 FINDIN GS: Nonobs tructi ve bowel gas patter n. Modera te stool burden . Right upper quadra nt surgic al clips. No acute osseou s abnorm ality. IMPRES LIA: Nonobs tructi ve bowel gas patter n and modera te stool burden . This report was dictat ed remote ly by a [facility] Radiol ogist in [place], [place]. /CS:cs D: 2024 16:08 T: 2024 16:08 Final Report Dictat ed: 16:08 Minna Underwood MD Signed : 16:08 Minna Underwood MD INTERFACE Sc Only - [facility] [address] [place] [address], [address], 08/20/2025 17:11:56 09/05/20 25 09/05/2025 elect jennie estradagr am, routi ne ECG, 12 leads min No observ ation record ed. INTERFACE Sc Only - [facility] [address] [address], [place], [address], 09/05/2025 15:23:33 09/05/20 25 08/18/2025 imagi ng/di agnos tic resul t No observ ation record ed. [address] [facility] [address], [place], [address], 09/05/2025 17:07:07 09/05/20 25 08/18/2025 CT, abdom en + pelvi s, w/ contr ast No observ ation record ed. [facility] [address], [place], [address], 09/05/2025 18:33:06 Result Notes Documentation Provider Name and Address Organization Details Recorded Time Ct, Abdomen + Pelvis, W/ Contrast : [facility] [address] [place] [address] Name: LETI WHITE Age: 54 : 1970 [...] Mayuri Tyson MD, RES Signed: 27-JUL-25 20:47 Renu FREEDMAN, Isabella Hussein Not Available [facility] 07/27/2025 21:51:11 Problems Name Problem SNOMED Code Status Onset Date Resolution Date Notes Provider Name and Address Organization Details Recorded Time Migraine 40382937 Active 2020 Not Available [facility] 5 22:06:56 Hypertens marquis disorder 23722880 Active 2020 Not Available [facility] 5 22:06:56 Atypical squamous cells of undetermi tiffanie significa nce on cervical Papanicol aou smear 162680401 Active 2020 Not Available [facility] 5 22:06:56 Second degree uterine prolapse 6856441 Active 2022 Not Available [facility] 5 22:06:56 Chest pain 69571776 Active 2022 Not Available [facility] 5 22:07:15 Preinfarc tion syndrome 7706372 Active 2022 Not Available [facility] 5 22:07:58 Coronary arteriosc lerosis 61951957 Active 2023 Not Available [facility] 5 22:06:26 Essential hypertens ion 48334135 Active 2023 Not Available [facility] 5 22:06:26 Hyperchol esterolem ia 47325232 Active 2023 Not Available [facility] 5 22:06:26 Abdominal pain 57856041 Active 2023 Not Available [facility] 5 22:08:28 Thoracic radiculop athy 82970546 Active 2023 Not Available [facility] 5 22:07:18 Cervical radiculop athy 03157598 Active 2023 Not Available [facility] 5 22:07:18 Lumbar spondylos is 617599553 Active 2023 Not Available [facility] 5 22:07:18 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 75188656153 9106 Active 2023 following with endocrino logy Not Available [facility] 5 22:07:26 Spinal arachnoid cyst 967287571 Active 2023 Not Available [facility] 5 22:07:42 Morbid obesity 969972406 Active 2024 Not Available [facility] 5 22:08:30 Gastropar esis syndrome 998422287 Active 2024 Not Available [facility] 5 22:08:30 Gastroeso phageal reflux disease 464491916 Active 2024 Not Available [facility] 5 22:08:30 Dyspnea 279820313 Active 2024 Not Available [facility] 5 22:10:22 Pain of left shoulder region Active 2024 Not Available [facility] 5 22:10:22 Bilateral cramp of muscle of lower limbs 56882375063 797962 Active 02/19/ 2025 Not Available [facility] 5 22:10:22 Fibromyal chuck 588684629 Active 2024 Not Available [facility] 5 22:08:30 Recurrent major depressio n in remission 82253617 Active 2024 Not Available [facility] 5 22:08:30 Primary insomnia 4251041 Active 2024 Not Available [facility] 5 22:08:30 Swelling of lower limb 517481865 Active 2024 Not Available [facility] 5 22:08:41 Palpitati ons 49442970 Active 2024 Not Available [facility] 5 22:09:22 Dyspnea on exertion 37085234 Active 2024 Not Available [facility] 22:11:38 Hyperlipi demia 36739585 Active 2024 Not Available [facility] 5 22:09:44 Edema of lower extremity 337144447 Active 2024 Not Available [facility] 5 22:09:44 Persisten t depressiv e disorder 8041693731 Active 2024 Not Available [facility] 5 22:09:45 Restless legs syndrome 96289808 Active 2024 Not Available [facility] 5 22:09:45 Atypical chest pain 577366057 Active 2024 Not Available [facility] 5 22:12:17 Anemia 801365468 Active 2024 Not Available [facility] 5 22:12:35 Acute kidney injury 99596818 Active 2024 Not Available [facility] 22:12:35 Mycosis 0923241 Active 2024 Not Available [facility] 5 22:10:03 Obstructi ve sleep apnea syndrome 69828449 Active 2024 Not Available [facility] 5 22:10:20 Acute urinary tract infection 340910549 Active 2024 Not Available [facility] 5 22:10:25 Alpha-1-a ntitrypsi n deficienc y 58784869 Active 2024 Not Available [facility] 5 22:10:34 Supravent ricular tachycard ia 4693673 Active 2024 Not Available [facility] 5 22:10:35 Abdominal discomfor t 01374958 Active 2024 Kimi giron [facility] 5 10:28:59 Screening colonosco py Active 2024 Kimi giron [facility] 5 10:34:05 Notes:Some problems listed i n Documents: #[id number], #[id number], #[id number] could not be added to this patient's [...] Name and Address Organization Details Recorded Time 6446074 fentanyl medicatio n headache Not available Not available 10/14/20232012 4337 RxNorm React ion: Heada syeda; Nause a; Vomit ing; Comme nt: React ion Date: 23 Aug 2013 Annot ation s: JUVENCIO SIEGEL 2012 9:08P M Per pt repor t.; ; Brenda Natarajan [facility] 5 14:41:09 1115087 prochlorp erazine medicatio n anxiety Not available Not available 05/13/20242017 8704 [facility] 5 11:23:17 2487688 sumatript an medicatio n itching Not available Not available 05/13/20242017 98300 Rx[facility] 5 14:41:28 2640289 metoclopr amide Not available other Not available Not available 05/13/20242022 6915 [facility] 5 14:41:18 4533387 diphenhyd ramine hydrochlo ride medicatio n anxiety rash Not available Not available Not available 05/13/20242017 1362 [facility] 5 11:23:17 6393032 Duragesic medicatio n headache Not available Not available 06/22/20242012 43077 8 RxNorm React ion: Heada syeda; Nause a; Vomit ing; Comme nt: React ion Date: 23 Aug 2013 Annot ation s: JUVENCIO SIEGEL 10Dec 2012 9:08P M Per pt repor t.; ; Brenda Natarajan [facility] 5 14:41:05 9858968 Compazine medicatio n other Not available Not available 11/02/2024 37458 6 RxNorm irrit abili ty Brenda Natarajan [facility] 5 14:41:50 8408259 Imdur medicatio n anxiety insomnia Not available Not available [facility] 05/30/2025 43055 2 RxNorm Melissa Macias PA-C [address] , [place], [address] [place] [address] 5 10:19:27 943405 Biaxin medicatio n nausea Not available Not available 10/12/20232006 03536 9 RxNorm React ion: Nause a; Not Available [facility] 4 21:45:38 201228 sumatript an succinate medicatio n Not available Not available Not available 10/12/20232006 54195 RxNorm React ion: Short ness of breat h; Arrhy thmia ; Not Available [facility] 4 21:45:39 981792 ciproflox acin hydrochlo ride medicatio n Not available Not available Not available 10/12/20232006 05981 RxNorm React ion: Synco pe; Short ness of breat h; Brenda Natarajan [facility] 5 14:40:56 363831 Demerol medicatio n Not available Not available Not available 10/12/20232008 18565 1 RxNorm Comme nt: Annot ation s: GRUND Y, BRAND ON 2008 3:38P M NAUSE A; ; Brenda Natarajan [facility] 5 14:40:59 679630 morphine sulfate medicatio n Not available Not available Not available 10/12/20232008 60236 RxNorm Comme nt: Annot ation s: GRUND Y, BRAND ON 2008 3:39P M NAUSE A; ; Brenda Natarajan [facility] 5 14:41:15 538202 hydromorp basim hydrochlo ride medicatio n Not available Not available Not available 10/12/2023200817 7 RxNorm Comme nt: Annot ation s: GRUND Y, BRAND ON 2008 3:39P M NAUSE A; ; Brenda Natarajan [facility] 5 14:41:12 Medications Name Sig Start Date Stop Date Status Note LastModified by Organization Details LastModified Time new customer packet NEW CUSTOMER PACKET 11/02 completed Not Available Not Available Not Available quetiapin e 25 mg tablet TAKE 1 TO 2 TABLETS AT BEDTIME active Not Available Not Available No t Available celecoxib 200 mg capsule TAKE ONE CAPSULE [...] 75 mg capsule,e xtended release 24 hr One tab daily along with the 150 mg for total of 225 mg daily 2024 active Not Available Not Available Not Avai lable carvedilo l 12.5 mg tablet TAKE ONE [...] MOUTH EVERY 6 HOURS NEEDED FOR PAIN 09/05 completed Not Available Not Available Not Available sucralfat e 1 gram tablet TAKE [...] 6 HOURS NEEDED FOR NAUSEA AND VOMITING 09/05 completed Not Available Not Available Not Available metoprolo l succinate ER 100 mg [...] mg capsule,e xtended release 24 hr take one capsule by mouth daily along with 75 mg tab daily for total of 225 mg daily 2024 active Not Available Not Available Not Avai lable promethaz ine 6.25 mg-codein e 10 mg/5 mL syrup take 5mL every 4-6 hours as needed for cough 06/15 completed Not Available Not Available Not Available hydroxyzi ne HCl 50 mg tablet Take 1 tablet every day by oral route at bedtime. 2024 active Not Available Not Available Not Avai lable acetamino phen 300 mg-codein e 30 mg tablet TAKE 1 TABLET BY MOUTH THREE TIMES DAILY NEEDED FOR PAIN active Not Available Not Available No t Available clopidogr el 75 mg tablet TAKE ONE TABLET BY MOUTH DAILY 06/21 completed Not Available Not Available Not Available ciproflox acin 250 mg tablet TAKE ONE TABLET BY MOUTH TWICE DAILY FOR FIVE DAYS 12/01 completed Not Available Not Available Not Available amlodipin e 5 mg tablet TAKE ONE TABLET BY MOUTH EVERY DAY 2024 active on hold Not Available Not Available Not Avai lable ciproflox acin 500 mg tablet TAKE ONE [...] ONE TABLET BY MOUTH FOUR TIMES DAILY 09/05 completed Not Available Not Available Not Available amitripty line 50 mg tablet TAKE [...] Not Available ropinirol e 0.25 mg tablet 1-3 at bedtime 2024 active Not Available Not Available Not Avai lable dicyclomi ne 20 mg tablet TAKE ONE TABLET BY MOUTH TWICE DAILY 2024 active Not Available Not Available Not Avai lable Humalog U-100 Insulin 100 unit/mL subcutane ous [...] n 500 mg capsule TAKE ONE CAPSULE TWICE DAILY UNTIL GONE 09/05 completed Not Available Not Available Not Available pantopraz ole 40 mg tablet,de layed release TAKE ONE TABLET BY MOUTH DAILY 2024 active Not Available Not Available Not Avai lable lidocaine 5 % topical patch apply 1 [...] Available hydroxyzi ne HCl 25 mg tablet take 1-2 tablets at bedtime active Not Available Not Available No t Available albuterol sulfate HFA 90 mcg/actua tion aerosol inhaler inhale one puff every 4 hours as needed for wheezing active Not Available Not Available No t Available norethind abdiel (contrace ptive) 0.35 mg tablet TAKE ONE TABLET DAILY 06/15 completed Not Available Not Available Not Available ondansetr on 4 mg disintegr ating tablet dissolve one tablet in mouth every 8 hours as needed for nausea/v omiting active [...] ONE TABLET BY MOUTH EVERY 8 HOURS before meals and at bedtime FOR SEVEN DAYS] 09/05 completed Not Available Not Available Not Available amoxicill in 875 mg-potass ium clavulana [...] Available Not Available Not Available quetiapin e 50 mg tablet 1-1.5 at bedtime 2024 active Not Available Not Available Not Avai lable Lantus Solostar U-100 Insulin 100 unit/mL (3 [...] tor 140 mg/mL subcutane ous auto-inje ctor Inject 140 mg once monthly 2024 active Not Available Not Available Not Avai lable Ubrelvy 100 mg tablet 05/09 completed Not Available Not Available Not Available Dexcom G7 Sweatband Cutting Machine Operator USE PER MANUFACT URER DIRECTIO NS 09/05 completed Not Available Not Available Not Available Dexcom G7 Sensor device CHANGE SENSOR EVERY 10 DAYS PER MANUFACT URER active Not Available Not Available No t Available Omnipod 5 G6-G7 Pods (Gen 5) subcutane ous cartridge change pod every 2 days active Not Available Not Available No t Available Contour Plus Test Strip use as directed to test blood sugars 3 times daily active Not Available Not Available No t Available Contour Plus Blue Meter use as directed to test blood sugars 3 times daily 09/05 completed Not Available Not Available Not Available Vitals Date Recorded Body height Heart rate Oxygen saturation Body mass index (BMI) Body weight Systolic And Diastolic Provider Name and Address Organization Details Last Updated DateTime 5 170.18 cm 76 /min 97 % 42.9 kg/m2 745359. 31 g 114/62 mm[Hg] [facility]15 Date Recorded Body height Body mass index (BMI) Body weight Heart rate Respiratory rate Oxygen saturation Systolic And Diastolic Provider Name and Address Organization Details Last Updated DateTime 5 170.18 cm 42.6 kg/m2 554412. 12 g 77 /min 16 /min 96 % 128/64 mm[Hg] Yoli Sauceda [facility] 5 11:22:40 Date Recorded Body height Body mass index (BMI) Body weight Heart rate Oxygen saturation Provider Name and Address Organization Details Last Updated DateTime 08/03/2025 170.18 cm 42.4 kg/m2 347880.5 3 g 108 /min 97 % Emely Fischer [facility] 5 14:22:27 Date Recorded Body height Heart rate Oxygen saturation Body mass index (BMI) Body weight Systolic And Diastolic Provider Name and Address Organization Details Last Updated DateTime 5 170.18 cm 81 /min 98 % 42.3 kg/m2 280895. 94 g 132/64 mm[Hg] Audrey Tirado [facility] 5 15:04:05 Date Recorded Body height Body mass index (BMI) Body weight Heart rate Respiratory rate Oxygen saturation Systolic And Diastolic Provider Name and Address Organization Details Last Updated DateTime 5 170.18 cm 42.4 kg/m2 547188. 53 g 76 /min 16 /min 97 % 134/62 mm[Hg] Yoli Sauceda [facility] 5 11:51:09 Social History Question Answer Notes LastModified by [employer] Details LastModified Time Tobacco Smoking Status [...] Do You Have A Medical Power Of Rubber Compounder Supervisor? Yes [email or web address] Information not available 06/13/2024 What Was The Date Of Your Most Recent Tobacco Screening? 07/04/2025 Information not available 07/04/2025 What Is Your Relationship Status? [email or web address] Information not available 06/13/2024 Has Tobacco Cessation Counseling Been Provided? Yes [email or web address] Information not available 03/28/2025 On What Date Was Tobacco Cessation Counseling Provided? 03/28/2025 [email or web address] Information not available 03/28/2025 Sex: Unknown Functional Status Question Answer Note LastModified by [employer] Details LastModified Time How many times [...] and Address Organization Details Recorded Time Influenza, MDCK, trivalent, PF completed Yoli Sauceda [facility] 09/05/2025 13:00:50 Influenza, recombinant, quadrivalent, PF 1 [facility] 14:40:15 Influenza, recombinant, quadrivalent, PF 0 completed [facility] 11/02/2024 14:40:15 zoster recombinant 1 completed [facility] 11/02/2024 14:40:15 zoster recombinant 1 completed [facility] 11/02/2024 14:40:15 COVID-19, mRNA, LNP-S, PF, 100 mcg/0.5mL dose or 50 mcg/0.25mL dose 1 completed Brenda Natarajan [facility] 11/02/2024 14:40:15 COVID-19, mRNA, LNP-S, PF, 100 mcg/0.5mL dose or 50 mcg/0.25mL dose 1 completed Brenda Natarajan [facility] 11/02/2024 14:40:15 COVID-19, mRNA, LNP-S, PF, 100 mcg/0.5mL dose or 50 mcg/0.25mL dose 1 completed Brenda Natarajan [facility] 11/02/2024 14:40:15 pneumococcal polysaccharide PPV23 1 completed Brenda Natarajna [facility] 11/02/2024 14:40:15 influenza, unspecified formulation 4 completed Brenda Natarajan [facility] 11/02/2024 14:40:15 influenza, unspecified formulation 4 completed Brenda Natarajan [facility] 11/02/2024 14:40:15 influenza, unspecified formulation 3 completed Brenda Natarajan [facility] 11/02/2024 14:40:15 Tdap 7 completed [facility] 14:40:15 Influenza, split virus, trivalent, preservative 1 completed [facility]/02/[facility]24 14:40:15 Influenza, split virus, quadrivalent, PF 7 completed Brenda Delgado [facility] 11/02/2024 14:40:15 Past Encounters Encounter ID Performer Location Encounter Start Date Encounter Closed Date Diagnosis/Indication Diagnosis SNOMED-CT Code Diagnosis ICD10 Code Diagnosis IMO Codes Diagnosis Note [id number] Drake Mcneal MD [facility] ([facility] [address] [place] [address] 05/17/2024 13:49:24 05/17/2024 14:46:03 Chest pain 29869887 R07.9 [id number] Eren Oswald PA-C [address] [facility] ([place]) [address] [facility],[address] [place] [address] 06/15/2024 14:10:45 06/15/2024 16:32:35 Abdominal pain 70628759 R10.9 Type 2 osmin betes mellitus 72950721 E11.9 Coronary arteriosclerosis 86309497 I25.10 [id number] Stacey ahmadi MD [address] [place] [address] [facility] ([place]) [address] [place] [address] 06/21/2024 12:42:22 06/21/2024 16:39:19 Thoracic radiculopathy 26106342 M54.14 Cervical radiculopathy 15535596 M54.12 Lumbar spondylosis 19350 0009 M47.896 [id number] Tiffanie Painting APN [facility] ([place]) [address] [place] [address] 07/05/2024 14:39:55 07/05/2024 15:35:42 Neuropathy due to type 2 diabetes mellitus 3227786003 15704 E11.40 Z79.4 85997552 [id number] Stacey ahmadi MD [address] [facility] [place] ([place]) [address] [place] [address] 08/04/2024 12:16:15 08/04/2024 14:29:11 Spinal arachnoid cyst 851547754 G96.198 95127711 [id number] [facility] ([place]) [address] [place] [address] 08/04/2024 15:26:47 08/04/2024 16:07:31 Type 2 diabetes mellitus 80002174 E11.9 Patient was seen in office for [...] ing of today's education and discussion . [id number] [facility] ([place]) [address] [place] [address] 08/29/2024 14:23:40 08/29/2024 16:23:00 Type 2 diabetes mellitus 98942981 E11.9 Patient came in today for Omnipod [...] then, patient had no questions or concerns. [id number] Pauly Vizcaino MD [facility] ([place]) [address] [place] [address] 11/02/2024 14:29:38 11/02/2024 15:23:49 Screening mammography 81086874 Z12.31 [id number] History an d physical examination, annual for health maintenance 92629512 Z00.00 7153198 First enco unter by subject 350113760 Z76.89 87165567 Coronary arteriosclerosis 33100886 I25.10 Essential hypertension 23149605 I10 Morbid obesity 012799004 E66.01 09029 Neuropathy due to type 2 diabetes mellitus 7281529026 63652 E11.40 Z79.4 99088869 Spinal arachnoid cyst 25 5658408 G96.198 60243387 Lumbar spondylosis 63316 0009 M47.896 Hypercholesterolemia 136 29113 E78.00 Gastroesop hageal reflux disease 471749753 K21.9 04845668 Dyspnea 384981320 R06.02 75823 Gastropare sis syndrome 283920945 K31.84 322657 Pain of le ft shoulder region 2078083754 M25.512 43169982 Bilateral cramp of muscle of lower limbs 3705683950 8715844 R25.2 91552126 Fibromyalgia 881603263 M 79.7 11471 History of asthma 517845 007 Z87.09 590165 Recurrent major depression in remission 83910453 F33.40 5467095 Primary insomnia 9348759 F51.01 18455 [id number] Pauly Vizcaino MD [facility] ([place]) [address] [place] [address] 12/01/2024 15:54:07 12/01/2024 17:05:19 Dyspnea 362759721 R06.02 53937 Swelling o f lower limb 402031857 M79.89 525366 [id number] Valeria Baugh APRN, [facility] ([place]) [address] [place] [address] 01/19/2025 11:51:35 01/19/2025 12:27:12 Preprocedural examination done 7351102410 01597 Z01.818 470881 Essential hypertension 74279684 I10 stable Coronary arteriosclerosis 29949375 I25.10 Neuropathy due to type 2 diabetes mellitus 3636065103 44095 E11.40 Z79.4 60371692 [id number] KYA LAKE NP [address] [facility] ([place]) [address] [place] [address] 02/10/2025 16:21:41 02/10/2025 17:11:25 Palpitations 01737258 R00.2 98649 Dyspnea on exertion 6084 5006 R06.09 860318 Coronary arteriosclerosis 29461198 I25.10 027385 [id number] Tiffanie Painting APN [facility] ([place]) [address] [place] [address] 03/10/2025 11:32:45 03/10/2025 12:00:56 Neuropathy due to type 2 diabetes mellitus 3684693857 00844 E11.40 Z79.4 73249660 [id number] KYA LAKE NP [address] [facility] ([place] [address] [place] [address] 03/24/2025 15:57:47 03/24/2025 16:57:04 Coronary arteriosclerosis 07535290 I25.10 940040 Essential hypertension 11275412 I10 85088 Hyperlipidemia 70866691 E78.5 22613139 Dyspnea on exertion 6084 5006 R06.09 337119 Palpitations 29389196 R0 0.2 53907 Chest pain 24939101 R07. 9 08549317 Edema of l ower extremity 507588664 R60.0 6530355 [id number] Melissa Macias PA-C [facility] ([place]) [address] [place] [address] 03/28/2025 10:36:47 05/02/2025 10:01:03 Persistent depressive disorder 9217314291 F34.1 86671598 also anxiety and helps with hot flashes Restless l egs syndrome 04814283 G25.81 89690 Atypical chest pain 1025 33782 R07.89 222642 Hypertensive disorder 38 197311 I10 [id number] Melissa Macias PA-C [facility] ([place]) [address] [place] [address] 04/11/2025 09:16:47 04/11/2025 11:19:07 Primary insomnia 2821250 F51.01 24598 History of migraine 1614 70228 Z86.69 2894986 [id number] Valeria Baugh APRN, ASSIGNMENT MANAGER [facility] ([place]) [address] [place] [address] 04/20/2025 11:18:43 04/20/2025 15:31:32 Anemia 796194442 D64.9 8969374344 Acute kidney injury 1466 9001 N17.9 3857353 Bilateral cramp of muscle of lower limbs 6328837347 1545613 R25.2 54864499 Dyspnea 035163621 R06.00 00241831 [id number] Valeria Baugh APRN, DES [facility] ([place]) [address] [place] [address] 04/28/2025 16:03:43 04/28/2025 17:55:49 Acute kidney injury 24715150 N17.9 7228921 Mycosis 6862496 B37.9 822497 Post-disch arge follow-up 119038067 Z09 576509 Bilateral cramp of muscle of lower limbs 9100049353 7670969 R25.2 48223211 Hypercholesterolemia 136 41141 E78.00 [id number] Melissa Macias PA-C [facility] ([place]) [address] [place] [address] 05/30/2025 09:44:32 05/30/2025 14:35:57 Primary insomnia 3457491 F51.01 06444 Dyspnea on exertion 6084 5006 R06.09 587501 Fibromyalgia 400432507 M 79.7 97577 Pain of le ft shoulder region 6161831213 M25.512 14747960 Migraine 35278449 G43.90 9 Obstructiv e sleep apnea syndrome 23292071 G47.33 8148269 [id number] Carrol Villagomez MD [facility] ([place]) [address] [facility],[address] [place] [address] 06/05/2025 15:41:18 06/05/2025 16:01:50 Dyspnea 092290882 R06.02 R06.00 67935 [id number] Uncertain as to the etiology of her [...] results of the CT scan performed at [facility] this past spring. Addendum, CTA of the chest from 06/03/2024 at [facility] showed unremarkab le pulmonary findings. She has some scattered linear atelectasi s, no consolidat ion, nodule or fluid. No mediastina l or hilar adenopathy . There was significan t coronary artery disease noted on that study. Obstructiv e sleep apnea syndrome 48838247 G47.33 01981 She has a longstandi ng history of sleep apnea diagnosed about 20 years ago down in [place] at an unknown institutio n. Is not on any treatment at this time. I do suspect she does have significan t sleep apnea that is contributi ng to her symptomato logy and we will get her worked up with a split-nigh t sleep study and trial PAP if positive. [id number] Delia Hall PA-C [address] [facility] ([place]) [address] [facility],[address] [place] [address] 06/07/2025 14:55:39 06/07/2025 17:49:29 Acute kidney injury 35889159 N17.9 8383931 [id number] KYA LAKE NP [address] [facility] [place] [address] [place] [address],[address] [place] [address] 06/28/2025 15:53:04 06/28/2025 16:23:37 Coronary arteriosclerosis 25760258 I25.10 316851 Supraventr icular tachycardia 5531110 I47.10 01592 Hyperlipidemia 51393979 E78.5 09817823 [id number] Melissa Macias PA-C [facility] ([place]) [address] [place] [address] 07/04/2025 11:15:12 07/04/2025 12:20:08 Primary insomnia 8303860 F51.01 Persistent depressive disorder 3588611340 F34.1 also anxiety and helps with hot flashes Migraine 14092882 G43.90 9 Recurrent major depression in remission 67100176 F33.40 6935341 Hypertensive disorder 38 145383 I10 [id number] KYA LAKE NP [address] [facility] ([place]) [address] [place] [address] 09/05/2025 14:58:07 09/05/2025 15:23:54 Hypercholesterolemia 66039758 E78.00 Hypertensive disorder 38 101317 I10 Coronary arteriosclerosis 59285852 I25.10 642441 Dyspnea on exertion 6084 5006 R06.09 110948 [id number] Tiffanie Painting APN [facility] ([place]) [address] [place] [address] 08/03/2025 14:13:01 08/03/2025 14:40:42 Neuropathy due to type 2 diabetes mellitus 5557439331 57405 E11.40 Z79.4 06541228 [id number] Melissa Macias PA-C [facility] ([place]) [address] [place] [address] 09/05/2025 11:28:18 09/05/2025 16:08:15 Migraine 80418697 G43.909 Essential hypertension 81830316 I10 Gastropare sis syndrome 643038869 K31.84 Primary insomnia 3596895 F51.01 Gastroesop hageal reflux disease 804835792 K21.9 Hyperlipidemia 18865903 E78.5 Restless l egs syndrome 06047892 G25.81 Persistent depressive disorder 1468303486 F34.1 also anxiety and helps with hot flashes Fibromyalgia 310821126 M 79.7 Active immunization 3387 9002 Z23 5024619 Health Concerns Section Related Observation LastModified by Organization Detai ls LastModified Time None Recorded Concern Status LastModified by Organization Details LastModified Time None Recorded Advance Directives Directive Y: Payers Insurance Date Sequence Insurance Name Policy Number Policy Garcia Covered Member ID Garcia Member ID Guarantor Name 06/15/2025 1 [facility] [id number] Leti Salgado Rice [id number] Leti Salgado Rice 03/22/2024 1 *SELF PAY* Isidro Salgado Rice 09/05/2025 2 [place] [employer] Leti Salgado Rice [id number] Leti P Rice 06/15/2025 1 MEDICARE-[place] (MEDICARE) Leti White [id number] Leti P Rice 09/05/2025 1 [facility] (MEDICARE REPLACEMENT/A DVANTAGE - PPO) [id number] Leti White [id number] Leti White Notes Date Note Type Note Provider Name and Address Organization Details Recorded Time 5 text/htm nohemy White is a pleasant 54-year-old female who [...] echo, 05/10/2024, which showed no evidence of ischemia.IMPRESSION:54-yea r-old female comes in for a follow-up visit. [...] questions answered.Followup visit in 6 months. KYA LAKE NP [address] [place] [address], [phone], [place] [facility] 06/28/2025 16:45:10 5 text/htm l Patient here for follow up after starting [id number] female presents for follow-up on mood, sleep, [...] feeling well. Melissa Macias PA-C [address] [place] [address], [phone], [facility] 07/04/2025 12:17:39 5 text/htm nohemy ToddLeti Christopher is here today for an endocrine follow up regarding diabetes mellitus type 2 diagnosed in 2004. Sent to endocrine because she would like to get Omnipod.Hemoglobin N3b7420: Sept 6.8%2024: Alvarez 6.9%, Nov 6.8%Prior to [...] with lung cancer and diabetes. Father with OH and diabetes. Tiffanie Painting APN [address] [place] [address], [phone], [facility] 08/03/2025 14:35:18 5 text/htm nohemy White is a pleasant 54-year-old female who comes in for a follow up visit. She has history of hypertension, uncontrolled diabetes mellitus, CAD, asthma and obesity. Patient had recent ER visit due to abdominal pain on 08/29/2025. Otherwise, she has been doing well. She denies any chest pain, pressure or tightness. States having shortness of breath on exertion, but is not believe is progressively worsening. She is going to be seeing pulmonology and have a sleep study pulmonary function test performed. She denies any orthopnea. She is having occasional lower extremity edema. She denies any dizziness, lightheadedness or palpitations. She denies any syncope or falls. Most recent blood work is unremarkable from a cardiac standpoint. Twelve-lead EKG from today shows normal sinus rhythm at a rate of 81 bpm. No acute ischemic changes. Previous cardiac workup:1. Echocardiogram performed on 05/15/2025, which showed normal LVEF of 65 to 70%, normal RV size and function and mild mitral valve regurgitation.2. Left and right heart cath on 03/08/2025. [...] for IFR. The IFR was negative at 1.0.3. 14-day event monitor performed on 02/10/2025 which showed that she remained in normal sinus rhythm with good heart rate variability. Her average heart rate was 62 bpm. She had rare PACs and PVCs. She had short runs of SVT. Patient reported events correlated with sinus rhythm with PACs, PVCs and short runs of SVT.4. Coronary artery disease. She had a left heart cath, 04/18/2023, for possible unstable angina via right radial approach. It showed right dominant coronary circulation with severe disease of medium caliber diagonal-2 of 70%-80% stenosis. EDP was 10-15 mmHg. At that time, decision was made to treat her with medications only. If she had refractor angina, they recommended PCI to D2.5. Dobutamine stress echo, 05/10/2024, which showed no evidence of ischemia.IMPRESSION:54-yea r-old female comes in for a follow-up visit. She appears to be doing well from a cardiac standpoint.PLAN:1. Nonobstructive CAD. Last left heart cath which showed moderate nonobstructive CAD. She has noted to have 40% lesion in the proximal/mid RCA with negative IFR. She denies any chest pain. She has shortness of breath exertion is not progressive worsening. She has been worked up for underlying pulmonary disease with sleep study and pulmonary function test. Recommend continuing aspirin, rosuvastatin, amlodipine and carvedilol.2. SVT. Patient denies any palpitations. Recommend continue current dose of carvedilol. No change at this time. Advised her to stay well-hydrated and avoid stimulants.3. Hyperlipidemia. We will switch her to Crestor 20 mg daily. We will repeat lipid panel in 3 to 6 months. LDL goal is less than 70.Patient was counseled regarding lifestyle modification healthy diet, daily exercise and weight loss.Patient understood the care plan and voiced no concerns.All questions answered.Followup visit in 1 year. KYA LAKE, JOSE G [address] [place] [address], [phone], [place] [facility] 09/05/2025 15:19:54 5 text/htm nohemy Leti Gallego a 54 year oldfemalepresenting for care. Date of last pap smear:2Date of last mammogram:06/14/2022 Patient here for med check. Needs refills.-Scheduled for EGD and colonoscopy 09/28/25-wants to discuss CT Not Available Not Available Not Available OBGyn Episode No OBEpisode recorded.
--- OUTSIDE RECORDS SUMMARY | 2025-09-05 21:29 | XMS_ITS | Continuity of Care Document ---
Author Organization [facility], [address] [facility] ([place]) Address [address] [place] [address] Care Team Providers Care Mate [place] Name Role Phone DRAKE FARRIS Human Resources Professional PAULY VIZCAINO Primary Care Provider [phone] PAULY VIZCAINO Referring Provider DELIA HALL Weld Technician Assessment No assessment recorded. Plan of Treatment Reminders Order Date Submit Date Provider Last Modified By Organization Details Last Modified Time Details Appointments Compl ete Physi radha Adult 40.ES T 2024 10:40A M Melissa Macias Not available Not available Not available Estab judy Stoner nt 15.ES T 2024 02:00P M Vinicius Pritchard Not available Not available [...] Not available Pulm Funct ion Metha choli ne.NH O 2025 02:00P M Pulmonary Diseases & [...] Patie nt 15.ES T 2025 03:00P M Vinicius Ferrill Not available Not available Not available Estab judy giron Patie nt 15.ES T 2025 02:00P M Vinicius Ferrill Not available Not available Not available Lab None recor ded. Referral None recor ded. Procedures None recor ded. Surgeries None recor ded. Imaging None recor ded. Medication Orders Crest or 20 mg table t 2024 0[address] [place], [place], [address] [place], [address], 06/28/2025 18:18:25 Patient TargetsNo targets recorded. Patient InstructionsNo instructions recorded. Reason for Referral None Reported. Results Created Date Observation Date Name Description Value Unit Range Abnormal Flag Note LastModifiedBy Organization Detail LastModifiedTime 06/07/2006/07/2025 CBC CBC Not Available [facility] [address] [place] [address], 70132, 06/07/2025 19:14:12 06/07/20 25 06/07/2025 CBC WBC 5.9 K/uL 3.8-11 .2 Not Available [facility] [address] [place] [address], 68366, 06/07/2025 19:14:12 06/07/20 25 06/07/2025 CBC RBC 4.18 M/uL 3.92-5 .10 Not Available [facility] [address] [place] [address], 31952, 06/07/2025 19:14:12 06/07/20 25 06/07/2025 CBC HGB 11.5 g/dL 11.8-1 5.3 low Not Available [facility] [address] [place] [address], 29875, 06/07/2025 19:14:12 06/07/2006/07/2025 CBC HCT 35.2 % 36.5-4 4.8 low Not Available [facility] [address] [place] [address], 89634, 06/07/2025 19:14:12 06/07/2006/07/2025 CBC MCV 84.2 fL 80.0-9 9.0 Not Available [facility] [address] [place] [address], 76188, 06/07/2025 19:14:12 06/07/2006/07/2025 CBC MCH 27.5 pg 25.5-3 3.6 Not Available [facility] [address] [place] [address], 03767, 06/07/2025 19:14:12 06/07/2006/07/2025 CBC MCHC 32.7 g/dL 32.0-3 6.0 Not Available [facility] [address] [place] [address], 34204, 06/07/2025 19:14:12 06/07/2006/07/2025 CBC RDW-SD 39.6 fL 35.1 - 46.3 Not Available [facility] [address] [place] [address], 49001, 06/07/2025 19:14:12 06/07/2006/07/2025 CBC plt 272 K/uL 130-40 0 Not Available [facility] [address] [place] [address], 17547, 06/07/2025 19:14:12 06/07/2006/07/2025 CBC MPV 9.9 fL 9.3-12 .8 Not Available [facility] [address] [place] [address], 02022, 06/07/2025 19:14:12 06/07/20 25 06/07/2025 urina lysis , compl ete urinalysis, complete LOW LEVEL S OF HEMOG LOBIN IN ABSEN CE OF HEMAT URIA MAY NOT BE CLINI MARCOS SIGNI FICAN T. Not Available [facility] [address] [place] [address], 53671, 06/07/2025 19:21:12 06/07/20 25 06/07/2025 urina lysis , compl ete color DARK YELLOW Dipst ick may be inacc urate due to the color of the urine Not Available [facility] [address] [place] [address], 59328, 06/07/2025 19:21:12 06/07/2006/07/2025 urina lysis , compl ete clarity CLEAR Not Available [facility] [address] [place] [address], 75604, 06/07/2025 19:21:12 06/07/2006/07/2025 urina lysis , compl ete pH 7.0 5.0-7. 5 Not Available [facility] [address] [place] [address], 80210, 06/07/2025 19:21:12 06/07/2006/07/2025 urina lysis , compl ete specific gravity 1.010 1.000- 1.030 Not Available [facility] [address] [place] [address], 78616, 06/07/2025 19:21:12 06/07/2006/07/2025 urina lysis , compl ete blood NEGATI VE negati ve Not Available [facility] [address] [place] [address], 42307, 06/07/2025 19:21:12 06/07/20 25 06/07/2025 urina lysis , compl ete bilirubin NEGATI VE negati ve Not Available [facility] [address] [place] [address], 83955, 06/07/2025 19:21:12 06/07/2006/07/2025 urina lysis , compl ete urobilinogen 1.0 0.2-1. 0 Not Available [facility] [address] [place] [address], 20949, 06/07/2025 19:21:12 06/07/20 25 06/07/2025 urina lysis , compl ete ketone NEGATI VE negati ve Not Available [facility] [address] [place] [address], 20106, 06/07/2025 19:21:12 06/07/20 25 06/07/2025 urina lysis , compl ete glucose NEGATI VE negati ve Not Available [facility] [address] [place] [address], 25665, 06/07/2025 19:21:12 06/07/20 25 06/07/2025 urina lysis , compl ete protein NEGATI VE negati ve Not Available [facility] [address] [place] [address], 96015, 06/07/2025 19:21:12 06/07/20 25 06/07/2025 urina lysis , compl ete nitrite POSITI VE negati ve abnormal Not Available [facility] [address] [place] [address], 40010, 06/07/2025 19:21:12 06/07/20 25 06/07/2025 urina lysis , compl ete leukocytes 1+ negati ve abnormal Not Available [facility] [address] [place] [address], 63840, 06/07/2025 19:21:12 06/07/20 25 06/07/2025 urina lysis , compl ete review * Micro scopi c resul ts revie wed by [facility]. Not Available [facility] [address] [place] [address], 13928, 06/07/2025 19:21:12 06/07/20 25 06/07/2025 urina lysis , compl ete RBC 0-2 0-2/hp f Not Available [facility] [address] [place] [address], 81155, 06/07/2025 19:21:12 06/07/20 25 06/07/2025 urina lysis , compl ete WBC 0-5 0-5/hp f Not Available [facility] [address] [place] [address], 04983, 06/07/2025 19:21:12 06/07/20 25 06/07/2025 urina lysis , compl ete WBC. CONFI Cell count s confi rmed by Techn ologi st. Not Available [facility] [address] [place] [address], 95445, 06/07/2025 19:21:12 06/07/20 25 06/07/2025 urina lysis , compl ete squamous epithelial 3-5 0-10/h pf Not Available [facility] [address] [place] [address], 94842, 06/07/2025 19:21:12 06/07/20 25 06/07/2025 urina lysis , compl ete bacteria NONE SEEN none Not Available [facility] [address] [place] [address], 80364, 06/07/2025 19:21:12 06/07/20 25 06/07/2025 urina lysis , compl ete hyaline cast 0-2 0-2/lp f Not Available [facility] [address] [place] [address], 09250, 06/07/2025 19:21:12 06/07/20 25 06/07/2025 renal funct ion panel , serum renal function panel Not Available [facility] [address] [place] [address], 30002, 06/07/2025 19:42:24 06/07/20 25 06/07/2025 renal funct ion panel , serum sodium 140 mmol/ L 136-14 6 Not Available [facility] [address] [place] [address], 95740, 06/07/2025 19:42:24 06/07/20 25 06/07/2025 renal funct ion panel , serum potassium 4.0 mmol/ L 3.5-5. 1 Not Available [facility] [address] [place] [address], 32663, 06/07/2025 19:42:24 06/07/20 25 06/07/2025 renal funct ion panel , serum chloride 106 mmol/ L 98-110 Not Available [facility] [address] [place] [address], 07859, 06/07/2025 19:42:24 06/07/20 25 06/07/2025 renal funct ion panel , serum CO2 25 mEq/L 20-32 Not Available [facility] [address] [place] [address], 22481, 06/07/2025 19:42:24 06/07/20 25 06/07/2025 renal funct ion panel , serum anion gap 13 mmol/ L 10-22 Not Available [facility] [address] [place] [address], 30924, 06/07/2025 19:42:24 06/07/20 25 06/07/2025 renal funct ion panel , serum glucose 188 mg/dL 70-100 high Not Available [facility] [address] [place] [address], 30442, 06/07/2025 19:42:24 06/07/20 25 06/07/2025 renal funct ion panel , serum calcium 9.5 mg/dL 8.4-10 .4 Not Available [facility] [address] [place] [address], 22087, 06/07/2025 19:42:24 06/07/20 25 06/07/2025 renal funct ion panel , serum albumin 4.1 g/dL 3.5-5. 3 Not Available [facility] [address] [place] [address], 89798, 06/07/2025 19:42:24 06/07/20 25 06/07/2025 renal funct ion panel , serum phosphorus 3.1 mg/dL 2.7-4. 5 Not Available [facility] [address] [place] [address], 12498, 06/07/2025 19:42:24 06/07/2006/07/2025 renal funct ion panel , serum BUN 15 mg/dL 7-21 Not Available [facility] [address] [place] [address], 69474, 06/07/2025 19:42:24 06/07/2006/07/2025 renal funct ion panel , serum creatinine 0.9 mg/dL 0.7-1. 3 Not Available [facility] [address] [place] [address], 81164, 06/07/2025 19:42:24 06/07/2006/07/2025 renal funct ion panel , serum CKD-epi GFR 76 eGFR was calcu lated using the 2020 CKD-E PI equat ion. (Combination Saw Operator andree Kidne y Disea se has an eGFR less than 60 mL/mi n/1.7 3mm for a perio d of three month s or more. ) This calcu latio n has not been valid ated for patie nt ages <18 or >90 years old. Not Available [facility] [address] [place] [address], 94700, 06/07/2025 19:42:24 06/07/20 25 06/08/2025 micro album in, urine microalbumin ,random panel Not Available [facility] [address] [place] [address], 96625, 06/08/2025 10:13:00 06/07/20 25 06/08/2025 micro album in, urine microalbumin random 0.5 mg/dL Not Available [facility] [address] [place] [address], 57411, 06/08/2025 10:13:00 06/07/2006/08/2025 micro album in, urine creatinine, urine random 37 mg/dL Refer ence range not estab lishe d for other than 24 hour colle ction . Not Available [facility] [address] [place] [address], 13883, 06/08/2025 10:13:00 06/07/2006/08/2025 micro album in, urine [...] in or Creat inine .) Not Available [facility] [address] [place] [address], 86673, 06/08/2025 10:13:00 06/07/2006/08/2025 C4 (comp lemen t), serum or plasm a complement C4 44 mg/dL 12-38 high Not Available [facility] [address] [place] [address], 15082, 06/08/2025 14:11:19 06/07/2006/08/2025 C3 (comp lemen t), serum or plasm a complement C3 201 mg/dL 82-167 high Not Available [facility] [address] [place] [address], 54732, 06/08/2025 14:11:20 06/07/20 25 06/08/2025 ADALBERTO (anti nucle ar antib odies ) scree n, serum ADALBERTO screen NEGATI VE negati ve Perfo rmed by Bio-R ad enzym e immun oassa y Not Available [facility] [address] [place] [address], 24482, 06/08/2025 15:48:52 06/07/20 25 06/09/2025 cultu re [...] resis tant inter preta tion Not Available [facility] [address] [place] [address], 36882, 06/09/2025 09:46:55 06/07/20 25 06/09/2025 immun ofixa tion, serum immunofixati on, serum No monoc lonal ity detec michelle. Not Available [facility] [address] [place] [address], 24978, 06/09/2025 15:12:43 06/07/20 25 06/09/2025 immun ofixa tion, serum IgG quantitative 1147 mg/dL 586-16 02 Not Available [facility] [address] [place] [address], 26621, 06/09/2025 15:12:43 06/07/20 25 06/09/2025 immun ofixa tion, serum IgA quantitative 393 mg/dL 87-352 high Not Available [facility] [address] [place] [address], 48213, 06/09/2025 15:12:43 06/07/20 25 06/09/2025 immun ofixa tion, serum IgM quantitative 80 mg/dL 26-217 Not Available [facility] [address] [place] [address], 46391, 06/09/2025 15:12:43 06/07/20 25 06/12/2025 anca panel , serum anca, complete Not Available [facility] [address] [place] [address], 18643, 06/12/2025 20:10:54 06/07/2006/12/2025 anca panel , serum myeloperoxid ase Ab <0.2 units 0.0-0. 9 Not Available [facility] [address] [place] [address], 27475, 06/12/2025 20:10:54 06/07/2006/12/2025 anca panel , serum proteinase-3 Ab, anca <0.2 units 0.0-0. 9 Not Available [facility] [address] [place] [address], 90342, 06/12/2025 20:10:54 06/07/20 25 06/12/2025 anca panel , serum C-anca titer <1:20 titer neg:<1 :20 Not Available [facility] [address], 04[address], 06/12/2025 20:10:54 06/07/2006/12/2025 anca panel , serum [...] ng of posit marquis sera with both NH-3 and MPO-A NCA enzym e immun oassa ys. As many as 5% serum sampl es are posit marquis only by EIA. Ref. AM J Clin Patho l 1999; 111:5 07-51 3. Not Available [facility] [address], [address], 06/12/2025 20:10:54 06/07/2006/12/2025 anca panel , serum atypical P anca titer <1:20 titer neg:<1 :20 The atypi radha pANCA patte rn has been obser elva in a signi fican t perce ntage of patie nts with ulcer ative colit is, prima ry scler osing chola ngiti s and autoi mmune hepat itis. Not Available [facility] [address] [place] [address], 44625, 06/12/2025 20:10:54 06/07/2006/07/2025 UE urine eosinophils NEGATI VE Not Available [facility] - [address], 96774, 06/07/2025 23:40:52 06/07/2006/08/2025 cultu re + sensi tivit y, urine urine culture and sens. PREL IM URINE GRAM NEGAT MARQUIS RODS DATE/ TIME: 06/08 10:17 >100, 000 CFU/m L Not Available [facility] [address], 35779, 06/08/2025 11:18:58 06/18/20 25 06/20/2025 C URINE [...] furth er work- up is neede d. [place] ELIMI NARY REPOR TS Preli minar y Repor t [] Verif ied Date/ Time: 2024 14:19 CDT Moder ate proba ble conta minan ts inclu din,00 0 cfu/m l Gram Negat marquis Rods Cultu re reinc ubate d Not Available [facility] - [facility] [address], 40[address], 06/20/2025 11:46:50 06/18/2006/18/2025 UACS color Pauline Not Available [facility] - [facility] [address], 60028, 06/18/2025 17:21:53 06/18/2006/18/2025 UACS appearance Clear Not Avail able [facility] - [facility] [address] [place] [address], 85891, 06/18/2025 17:21:53 06/18/2006/18/2025 UACS specific gravity 1.012 1.003- 1.030 Not Available [facility] - [facility] [address] [place] [address], 26246, 06/18/2025 17:21:53 06/18/2006/18/2025 UACS pH urine 6.0 4.5-7. 5 Not Available [facility] - [facility] [address] [place] [address], 82042, 06/18/2025 17:21:53 06/18/2006/18/2025 UACS protein 30 abnormal Not Availa ble [facility] - [facility] [address] [place] [address], 32023, 06/18/2025 17:21:53 06/18/2006/18/2025 UACS urine glucose Negati ve Not Available [facility] - [facility] [address] [place] [address], 81324, 06/18/2025 17:21:53 06/18/2006/18/2025 UACS ketones Negati ve Not Available [facility] - [facility] [address] [place] [address], 76537, 06/18/2025 17:21:53 06/18/2006/18/2025 UACS urine bilirubin Negati ve Not Available [facility] - [facility] [address] [place] [address], 46792, 06/18/2025 17:21:53 06/18/20 25 06/18/2025 UACS urine HGB Small abnormal Not Avai lable [facility] Only - [facility] [address] [place] [address], 79091, 06/18/2025 17:21:53 06/18/2006/18/2025 UACS nitrite Positi ve abnormal Not Available [facility] - [facility] [address] [place] [address], 20652, 06/18/2025 17:21:53 06/18/20 25 06/18/2025 UACS leukocyte esterase Negati ve Not Available [facility] - [facility] [address] [place] [address], 93949, 06/18/2025 17:21:53 06/18/20 25 06/18/2025 UACS urobilinogen >=4.0 abnormal Not A vailable [facility] Only - [facility] [address] [place] [address], 65989, 06/18/2025 17:21:53 06/18/20 25 06/18/2025 UACS urine WBCs 2 /hpf 0-4 Not Avail able [facility] Only - [facility] [address] [place] [address], 06988, 06/18/2025 17:21:53 06/18/20 25 06/18/2025 UACS urine RBCs 0 /hpf 0-2 Not Avail able [facility] Only - [facility] [address] [place] [address], 62503, 06/18/2025 17:21:53 06/18/2006/18/2025 UACS squamous epithelial cells 6 /hpf 0-5 high Not Available [facility] - [facility] [address] [place] [address], 28309, 06/18/2025 17:21:53 06/18/20 25 06/18/2025 UACS bacteria Few abnormal Not Avail able [facility] Only - [facility] [address] [place] [address], 85186, 06/18/2025 17:21:53 06/18/2006/18/2025 UACS color Pauline Not Available [facility] - [facility] [address], 56569, 06/18/2025 17:21:52 06/18/2006/18/2025 UACS appearance Clear Not Avail able [facility] Only - [facility] [address] [place] [address], 74493, 06/18/2025 17:21:52 06/18/2006/18/2025 UACS specific gravity 1.012 1.003- 1.030 Not Available [facility] - [facility] [address] [place] [address], 33747, 06/18/2025 17:21:52 06/18/2006/18/2025 UACS pH urine 6.0 4.5-7. 5 Not Available [facility] - [facility] [address] [place] [address], 20814, 06/18/2025 17:21:52 06/18/2006/18/2025 UACS protein 30 abnormal Not Availa ble [facility] Only - [facility] [address] [place] [address], 59363, 06/18/2025 17:21:52 06/18/2006/18/2025 UACS urine glucose Negati ve Not Available [facility] - [facility] [address] [place] [address], 70939, 06/18/2025 17:21:52 06/18/2006/18/2025 UACS ketones Negati ve Not Available [facility] - [facility] [address] [place] [address], 55021, 06/18/2025 17:21:52 06/18/2006/18/2025 UACS urine bilirubin Negati ve Not Available [facility] - [facility] [address], 70219, 06/18/2025 17:21:52 06/18/20 25 06/18/2025 UACS urine HGB Small abnormal Not Avai lable [facility] Only - [facility] [address] [place] [address], 28261, 06/18/2025 17:21:52 06/18/2006/18/2025 UACS nitrite Positi ve abnormal Not Available [facility] - [facility] [address] [place] [address], 55999, 06/18/2025 17:21:52 06/18/2006/18/2025 UACS leukocyte esterase Negati ve Not Available [facility] - [facility] [address] [place] [address], 87799, 06/18/2025 17:21:52 06/18/2006/18/2025 UACS urobilinogen >=4.0 abnormal Not A vailable [facility] Only - [facility] [address] [place] [address], 84444, 06/18/2025 17:21:52 06/18/2006/18/2025 UACS urine WBCs 2 /hpf 0-4 Not Avail able [facility] Only - [facility] [address] [place] [address], 29246, 06/18/2025 17:21:52 06/18/2006/18/2025 UACS squamous epithelial cells 6 /hpf 0-5 high Not Available [facility] - [facility] [address] [place] [address], 45033, 06/18/2025 17:21:52 06/18/2006/18/2025 UACS bacteria Few abnormal Not Avail able [facility] Only - [facility] [address] [place] [address], 07725, 06/18/2025 17:21:52 06/18/20 25 06/18/2025 EGFR eGFR [...] prese nt. Not Available [facility] - [facility] [address] [place] [address], 68353, 06/18/2025 17:15:19 06/18/20 25 06/18/2025 LPSE lipase,serum 18 u/L 11-82 Not Dalila ilable [facility] - [facility] [address] [place] [address], 38960, 06/18/2025 17:15:18 06/18/20 25 06/18/2025 CMP sodium 139 mmol/ L 136-14 5 Not Available [facility] - [facility] [address] [place] [address], 26567, 06/18/2025 17:15:16 06/18/20 25 06/18/2025 CMP potassium 4.1 mmol/ L 3.5-5. 1 Not Available [facility] [address] [place] [address], 11160, 06/18/2025 17:15:16 06/18/20 25 06/18/2025 CMP chloride 106 mmol/ L 98-107 Not Available [facility] [address] [place] [address], 14045, 06/18/2025 17:15:16 06/18/20 25 06/18/2025 CMP CO2 24 mmol/ L 21-31 Not Available [facility] [address] [place] [address], 60342, 06/18/2025 17:15:16 06/18/20 25 06/18/2025 CMP BUN 9 mg/dL 7-25 Not Available [facility] - [facility] [address] [place] [address], 89032, 06/18/2025 17:15:16 06/18/20 25 06/18/2025 CMP creatinine 0.8 mg/dL 0.6-1. 3 Not Available [facility] - [facility] [address] [place] [address], 95583, 06/18/2025 17:15:16 06/18/2006/18/2025 CMP glucose 210 mg/dL 70-105 high Not Availabl e Nv Only - [facility] [address] [place] [address], 21219, 06/18/2025 17:15:16 06/18/20 25 06/18/2025 CMP calcium 9.3 mg/dL 8.6-10 .3 Not Available [facility] - [facility] [address], 49742, 06/18/2025 17:15:16 06/18/2006/18/2025 CMP total protein 7.2 gm/dL 6.0-8. 3 Not Available [facility] - [facility] [address] [place] [address], 26487, 06/18/2025 17:15:16 06/18/2006/18/2025 CMP albumin 4.0 gm/dL 3.5-5. 7 Not Available [facility] - [facility] [address] [place] [address], 55002, 06/18/2025 17:15:16 06/18/2006/18/2025 CMP bilirubin (total) 0.8 mg/dL 0.3-1. 0 Not Available [facility] - [facility] [address], 79293, 06/18/2025 17:15:16 06/18/20 25 06/18/2025 CMP AST 24 IU/L 13-39 Not Available N[facility] Only - [facility] [address] [place] [address], 66278, 06/18/2025 17:15:16 06/18/20 25 06/18/2025 CMP alk phos 134 IU/L 34-104 high Not Availab le Nv Only - [address], 68304, 06/18/2025 17:15:16 06/18/20 25 06/18/2025 CMP ALT 15 IU/L 7-52 Not Available [facility] - [address], 73235, 06/18/2025 17:15:16 06/18/20 25 06/18/2025 CMP anion gap 9 8-16 Anion gap calcu lated using formu la: Na - (Cl + CO2) Measu red total CO2 is used in place of HCO3 Not Available [facility] Only - [address], 06550, 06/18/2025 17:15:16 06/18/20 25 06/18/2025 DBIL bilirubin (direct) 0.1 mg/dL 0.0-0. 2 Not Available [facility] - [address], 88355, 06/18/2025 17:15:14 06/18/20 25 06/18/2025 DIFF neutrophils 64 % 47-67 Not Avai lable N[facility] Only - [address], 56365, 06/18/2025 16:50:30 06/18/20 25 06/18/2025 DIFF lymphocytes 23 % 25-45 low Not Avai lable [facility] Only - [address], 20920, 06/18/2025 16:50:30 06/18/20 25 06/18/2025 DIFF monocytes 8 % 1-9 Not Availa ble N[facility] Only - [address], 10338, 06/18/2025 16:50:30 06/18/20 25 06/18/2025 DIFF eosinophils 3 % 0-6 Not Avai lable [facility] Only - [address], 82467, 06/18/2025 16:50:30 06/18/20 25 06/18/2025 DIFF basophils 1 % 0-2 Not Availa ble N[facility] Only - [address], 60818, 06/18/2025 16:50:30 06/18/20 25 06/18/2025 DIFF absolute neutrophils 5.0 K/cum m 1.8-6. 5 Not Available [place] Only - [address], [id number], 06/18/2025 16:50:30 06/18/20 25 06/18/2025 DIFF absolute lymphocytes 1.8 K/cum m 0.9-3. 0 Not Available [place] Only - [address], [id number], 06/18/2025 16:50:30 06/18/20 25 06/18/2025 DIFF absolute monocytes 0.6 K/cum m 0.2-0. 8 Not Available [place] Only - [address], [id number], 06/18/2025 16:50:30 06/18/20 25 06/18/2025 DIFF absolute eosinophils 0.3 K/cum m 0.0-0. 4 Not Available N[place] Only - [address], [address], 06/18/2025 16:50:30 06/18/20 25 06/18/2025 DIFF absolute basophils 0.1 K/cum m 0.0-0. 2 Not Available Nv Only - [address], [address], 06/18/2025 16:50:30 06/18/20 25 06/18/2025 CBC W/ AUTO DIFF WBC 7.8 K/cum m 3.4-9. 4 Not Available N[facility] Only - [address], [address], 06/18/2025 16:50:28 06/18/20 25 06/18/2025 CBC W/ AUTO DIFF RBC 4.23 M/cum m 4.20-5 .40 Not Available Nv Only - [address], [address], 06/18/2025 16:50:28 06/18/20 25 06/18/2025 CBC W/ AUTO DIFF hemoglobin 11.5 gm/dL 12.0-1 6.0 low Not Available Nv Only - [address], [address], 06/18/2025 16:50:28 06/18/20 25 06/18/2025 CBC W/ AUTO DIFF hematocrit 35 % 37-47 low Not Available Nv Only - [address], [address], 06/18/2025 16:50:28 06/18/20 25 06/18/2025 CBC W/ AUTO DIFF MCV 83 81-94 Not Available Nv Only - [address], [address], 06/18/2025 16:50:28 06/18/20 25 06/18/2025 CBC W/ AUTO DIFF MCH 27.1 pg 27.5-3 3.2 low Not Available Nv Only - [facility] [address] [place] [address], [address], 06/18/2025 16:50:28 06/18/20 25 06/18/2025 CBC W/ AUTO DIFF MCHC 32.6 g/dL 31.0-3 6.0 Not Available Nv Only - [facility] [address] [place] [address], [address], 06/18/2025 16:50:28 06/18/20 25 06/18/2025 CBC W/ AUTO DIFF RDW 14.1 % 11.7-1 5.5 Not Available Nv Only - [facility] [address] [place] [address], [address], 06/18/2025 16:50:28 06/18/20 25 06/18/2025 CBC W/ AUTO DIFF platelets 278 K/cum m 140-41 0 Not Available [facility] [address] [place] [address], [address], 06/18/2025 16:50:28 06/18/20 25 06/18/2025 CBC W/ AUTO DIFF MPV 7.9 mL Not Available [facility] [address] [place] [address], [address], 06/18/2025 16:50:28 06/18/20 25 06/19/2025 C URINE [...] 2024 19:13 CDT FREE TEXT SOURC E: [place] ELIMI NARY REPOR TS Preli minar y Repor t [] Verif ied Date/ Time: 2024 14:19 CDT Moder ate proba ble conta minan ts inclu din,00 0 cfu/m l Gram Negat marquis Rods Cultu re reinc ubate d Not Available Nv Only - [facility] [address] [place] [address], [address], 06/19/2025 15:19:31 06/28/2006/30/2025 alpha -1-an titry psin (aat) , QN, serum A-1 antitrypsin phenotype Not Available [facility] On[facility] - [facility] [address] [place] [address], [address], 06/30/2025 17:12:05 06/28/2006/30/2025 alpha -1-an titry psin (aat) , QN, serum [id number]-5-jbwg trypsin 140 mg/dL 101-18 7 Not Available N[facility] - [facility] [address] [place] [address], [address], 06/30/2025 17:12:05 06/28/2006/30/2025 alpha -1-an titry psin [...] to confi rm pheno type. Not Available N[facility] Only - [facility] [address] [place] [address], [address], 06/30/2025 17:12:05 06/05/20 25 06/03/2024 CT, angio gram, chest , w/ contr ast No observ ation record ed. [email or web address] Not Available 2024 16:05:59 06/07/20 25 06/07/2025 XR, chest , 2 [place] [address] Teleph one Name: TL WHITE [id number] am Date: 2024 Age: 54Phys ician: MD MIKEY[facility] 1970Ex aminat ion: XR CHEST [...] 3:01 PM cc: Page PAGE 1 of [facility] ES 1 MIKE Nv Only - [facility] [address] [place] [address], [address], 06/08/2025 14:33:15 07/27/20 25 07/27/2025 CT, abdom en + pelvi s, w/ contr ast [facility] [address] [place], [place] [address] Name: TL WHITE P Age: 54 : 1970 Exam Date: 2024 ACCESS ION: [id number] BLAISE CALDERA MD: MILE HOLLINGSWORTH EXAMIN ATION: [...] ing approx imatel y 1.1 cm in [facility] diamet er. 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 [email or web address] [facility] - Radiology [address] [place], [address], 08/01/2025 17:37:33 08/03/20 25 08/03/2025 D abdom en [address] [facility] [address] [place] [address] Name: TL WHITE Age: 54 : 1970 Exam Date: 2024 ACCESS ION: [id number] ORDERSheron CALDERA MD: BRIDGET BOWLES EXAM: Abdome [...] Signed : 20:05 Juwan Metzger MD INTERFACE Nv Only - [facility] [address] [place] [address], [address], 08/03/2025 21:09:24 08/20/20 25 08/20/2025 D abdom en 1 view [facility] [address] [place] [address] Name: TL WHITE Age: 54 : 1970 Exam Date: 2024 ACCESS ION: [id number] BLAISE CALDERA MD: ANKUSH JOEL EXAMIN ATION: Abdome n 1 View HISTOR Y: Compla int of abdome n pain x days. abd pain n/v COMPAR MANPREET: 2024 FINDIN GS: Nonobs tructi ve bowel gas patter n. Modera te stool burden . Right upper quadra nt surgic al clips. No acute osseou s abnorm ality. IMPRES LIA: Nonobs tructi ve bowel gas patter n and modera te stool burden . This report was dictat ed remote ly by a [facility] Radiol ogist in [place], [place]. /CS:cs D: 2024 16:08 T: 2024 16:08 Final Report Dictat ed: 16:08 Minna Underwood MD Signed : 16:08 Minna Underwood MD INTERFACE Sc Only - [facility] [address], [place], [address], 08/20/2025 17:11:56 09/05/20 25 09/05/2025 elect rocar diogr am, routi ne ECG, 12 leads min No observ ation record ed. INTERFACE Sc Only - [facility] [address] [address], [place], [address], 09/05/2025 15:23:33 09/05/20 25 08/18/2025 imagi ng/di agnos tic resul t No observ ation record ed. [address] [facility] [address], [place], [address], 09/05/2025 17:07:07 09/05/2008/18/2025 CT, abdom en + pelvi s, w/ contr ast No observ ation record ed. [facility] [address], [place], [address], 09/05/2025 18:33:06 Result Notes None recorded. Problems Name Problem SNOMED Code Status Onset Date Resolution Date Notes Provider Name and Address Organization Details Recorded Time Migraine 36274532 Active 2020 Not Available [facility] 5 22:06:56 Hypertens marquis disorder 18105192 Active 2020 Not Available [facility] 22:06:56 Atypical squamous cells of undetermi tiffanie significa nce on cervical Papanicol aou smear 232439812 Active 2020 Not Available [facility] 22:06:56 Second degree uterine prolapse 5098855 Active 2022 Not Available [facility] 5 22:06:56 Chest pain 37111326 Active 2022 Not Available [facility] 5 22:07:15 Preinfarc tion syndrome 6015518 Active 2022 Not Available [facility] 5 22:07:58 Coronary arteriosc lerosis 81862925 Active 2023 Not Available [facility] 5 22:06:26 Essential hypertens ion 63020920 Active 2023 Not Available [facility] 5 22:06:26 Hyperchol esterolem ia 12494536 Active 2023 Not Available [facility] 5 22:06:26 Abdominal pain 54110868 Active 2023 Not Available [facility] 5 22:08:28 Thoracic radiculop athy 84412584 Active 2023 Not Available [facility] 5 22:07:18 Cervical radiculop athy 85430368 Active 2023 Not Available [facility] 5 22:07:18 Lumbar spondylos is 221096835 Active 2023 Not Available [facility] 5 22:07:18 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 33428391363 9106 Active 2023 following with endocrino logy Not Available [facility] 5 22:07:26 Spinal arachnoid cyst 256244217 Active 2023 Not Available [facility] 5 22:07:42 Morbid obesity 590475389 Active 2024 Not Available [facility] 5 22:08:30 Gastropar esis syndrome 276096263 Active 2024 Not Available [facility] 5 22:08:30 Gastroeso phageal reflux disease 805066965 Active 2024 Not Available [facility] 5 22:08:30 Dyspnea 911379612 Active 2024 Not Available [facility] 5 22:10:22 Pain of left shoulder region Active 02/19/ 2025 Not Available [facility] 5 22:10:22 Bilateral cramp of muscle of lower limbs 76281138262 694883 Active 2024 Not Available [facility] 5 22:10:22 Fibromyal chuck 950082509 Active 2024 Not Available [facility] 5 22:08:30 Recurrent major depressio n in remission 45705440 Active 2024 Not Available [facility] 5 22:08:30 Primary insomnia 3041938 Active 2024 Not Available [facility] 5 22:08:30 Swelling of lower limb 657839534 Active 2024 Not Available [facility] 5 22:08:41 Palpitati ons 39598772 Active 2024 Not Available [facility] 5 22:09:22 Dyspnea on exertion 26960264 Active 2024 Not Available [facility] 5 22:11:38 Hyperlipi demia 10337482 Active 2024 Not Available [facility] 5 22:09:44 Edema of lower extremity 633287652 Active 2024 Not Available [facility] 5 22:09:44 Persisten t depressiv e disorder 5747309700 Active 2024 Not Available [facility] 5 22:09:45 Restless legs syndrome 83597989 Active 2024 Not Available [facility] 5 22:09:45 Atypical chest pain 064292869 Active 2024 Not Available [facility] 5 22:12:17 Anemia 740033096 Active 2024 Not Available [facility] 5 22:12:35 Acute kidney injury 42362497 Active 2024 Not Available [facility] 5 22:12:35 Mycosis 8709569 Active 2024 Not Available [facility] 5 22:10:03 Obstructi ve sleep apnea syndrome 75379025 Active 2024 Not Available [facility] 5 22:10:20 Acute urinary tract infection 338061294 Active 2024 Not Available [facility] 22:10:25 Alpha-1-a ntitrypsi n deficienc y 93496104 Active 2024 Not Available [facility] 22:10:34 Supravent ricular tachycard ia 0496380 Active 2024 Not Available [facility] 22:10:35 Abdominal discomfor t 31800252 Active 2024 [facility] 10[facility]28:59 Screening colonosco py Active 2024 Kimi giron [facility] 5 10:34:05 Notes:Some problems listed i n Documents: #[id number], #[id number], #[id number] could not be added to this patient's [...] Name and Address Organization Details Recorded Time 8919450 fentanyl medicatio n headache Not available Not available 10/14/20232012 4337 RxNorm React ion: Heada syeda; Nause a; Vomit ing; Comme nt: React ion Date: 23 Aug 2013 Annot ation s: JUVENCIO SIEGEL 10Dec 2012 9:08P M Per pt repor t.; ; Brenda Natarajan [facility] 5 14:41:09 4140779 prochlorp erazine medicatio n anxiety Not available Not available 05/13/20242017 8704 RxNorm Yoli Sauceda [facility] 5 11:23:17 0660059 sumatript an medicatio n itching Not available Not available 05/13/20242017 44765 RxNorm Brenda Natarajan [facility] 5 14:41:28 5160111 metoclopr amide Not available other Not available Not available 05/13/20242022 6915 RxNorm Brenda Natarajan [facility] 5 14:41:18 0854852 diphenhyd ramine hydrochlo ride medicatio n anxiety rash Not available Not available Not available 05/13/20242017 1362 RxNorm Yoli Sauceda [facility] 5 11:23:17 4965299 Duragesic medicatio n headache Not available Not available 06/22/20242012 12032 8 RxNorm React ion: Heada syeda; Nause a; Vomit ing; Comme nt: React ion Date: 23 Aug 2013 Annot ation s: JUVENCIO SIEGEL 10Dec 2012 9:08P M Per pt repor t.; ; Brenda Natarajan [facility] 5 14:41:05 6431000 Compazine medicatio n other Not available Not available 11/02/2024 51533 6 RxNorm irrit abili ty Brenda Natarajan [facility] 5 14:41:50 0794030 Imdur medicatio n anxiety insomnia Not available Not available [facility] 05/30/2025 15631 2 RxNorm Melissa Macias PA-C [address] [place], [address] , [facility] 5 10:19:27 338040 Biaxin medicatio n nausea Not available Not available 10/12/20232006 91288 9 RxNorm React ion: Nause a; Not Available [facility] 21:45:38 105295 sumatript an succinate medicatio n Not available Not available Not available 10/12/20232006 77118 RxNorm React ion: Short ness of breat h; Arrhy thmia ; Not Available [facility] 21:45:39 165441 ciproflox acin hydrochlo ride medicatio n Not available Not available Not available 10/12/20232006 12598 RxNorm React ion: Synco pe; Short ness of breat h; [facility] 5 14:40:56 962851 Demerol medicatio n Not available Not available Not available 10/12/20232008 00552 1 RxNorm Comme nt: Annot ation s: GRUND Y, BRAND ON 2008 3:38P M NAUSE A; ; Brenda Natarajan [facility] 5 14:40:59 906978 morphine sulfate medicatio n Not available Not available Not available 10/12/20232008 00052 RxNorm Comme nt: Annot ation s: GRUND Y, BRAND ON 2008 3:39P M NAUSE A; ; Brendaaraseli Natarajan [facility] 5 14:41:15 793004 hydromorp basim hydrochlo ride medicatio n Not available Not available Not available 10/12/20232008 56299 7 RxNorm Comme nt: Annot ation s: GRUND Y, BRAND ON 2008 3:39P M NAUSE A; ; Brenda Natarajan [facility] 5 14:41:12 Medications Name Sig [...] Available Not Available Not Available Dexcom G7 Manager Physical USE PER MANUFACT URER DIRECTIO NS 09/05 [...] cm 76 /min 97 % 42.9 kg/m2 054512. 31 g 114/62 mm[Hg] [facility] 16:04:15 Social History Question Answer Notes [...] Do You Have A Medical Power Of Academic Affairs Coordinator? Yes [email or web address] Information not available 06/13/2024 What Was The Date Of Your Most Recent Tobacco Screening? 07/04/2025 [email or web address] Information not available 07/04/2025 What Is Your Relationship Status? [email or web address] Information not available 06/13/2024 Has Tobacco Cessation Counseling Been Provided? Yes [email or web address] Information not available 03/28/2025 On What Date Was Tobacco Cessation Counseling Provided? 03/28/2025 [email or web address] Information not available 03/28/2025 Sex: Unknown Functional [...] Details Recorded Time Influenza, MDCK, trivalent, PF 5 completed Yoli Sauceda [facility] 09/05/2025 13:00:50 Influenza, recombinant, quadrivalent, PF 1 completed Brenda Natarajan [facility] 11/02/2024 14:40:15 Influenza, recombinant, quadrivalent, PF 0 completed Brenda Natarajan [facility] 11/02/2024 14:40:15 zoster recombinant 1 completed Brenda Natarajan [facility] 11/02/2024 14:40:15 zoster recombinant 1 completed Brenda Natarajan [facility] 11/02/2024 14:40:15 COVID-19, mRNA, LNP-S, PF, 100 mcg/0.5mL dose or 50 mcg/0.25mL dose 1 completed Brenda Natarajan [facility] 11/02/2024 14:40:15 COVID-19, mRNA, LNP-S, PF, 100 mcg/0.5mL dose or 50 mcg/0.25mL dose 1 completed Brenda Natarajan [facility] 11/02/2024 14:40:15 COVID-19, mRNA, LNP-S, PF, 100 mcg/0.5mL dose or 50 mcg/0.25mL dose 1 completed Brenda Natarajan [facility] 11/02/2024 14:40:15 pneumococcal polysaccharide PPV23 1 completed [facility] 11/02/2024 14:40:15 influenza, unspecified formulation 4 completed Brenda Natarajan [facility] 11/02/2024 14:40:15 influenza, unspecified formulation 4 completed [facility] 11/02/2024 14:40:15 influenza, unspecified formulation 3 completed Brenda Natarajan [facility] 11/02/2024 14:40:15 Tdap 7 completed Brenda Natarajan [facility] 11/02/2024 14:40:15 Influenza, split virus, trivalent, preservative 1 completed [facility] 11/02/2024 14:40:15 Influenza, split virus, quadrivalent, PF 7 completed [facility] 11/02/2024 14:40:15 Past Encounters Encounter ID Performer Location Encounter Start Date Encounter Closed Date Diagnosis/Indication Diagnosis SNOMED-CT Code Diagnosis ICD10 Code Diagnosis IMO Codes Diagnosis Note [id number] Melissa Macias PA-C [facility] ([place]) [facility] [place] [address] 05/30/2025 09:44:32 05/30/2025 14:35:57 Primary insomnia 2725258 F51.01 54106 Dyspnea on exertion 6084 5006 R06.09 118475 Fibromyalgia 020614420 M 79.7 42899 Pain of le ft shoulder region 1679133212 M25.512 86643306 Migraine 05173929 G43.90 9 Obstructiv e sleep apnea syndrome 94449270 G47.33 0204437 [id number] Carrol Villagomez MD [facility] 2nd Pulm ([place]) [address] [facility] [place] [address] 06/05/2025 15:41:18 06/05/2025 16:01:50 Dyspnea 484899421 R06.02 R06.00 73256 [id number] Uncertain as to the etiology of her [...] results of the CT scan performed at [facility] this past spring. Addendum, CTA of the chest from 06/03/2024 at [facility] showed unremarkab le pulmonary findings. She has some scattered linear atelectasi s, no consolidat ion, nodule or fluid. No mediastina l or hilar adenopathy . There was significan t coronary artery disease noted on that study. Obstructiv e sleep apnea syndrome 42814542 G47.33 72585 She has a longstandi ng history of sleep apnea diagnosed about 20 years ago down in [place] at an unknown institutio n. Is not on any treatment at this time. I do suspect she does have significan t sleep apnea that is contributi ng to her symptomato logy and we will get her worked up with a split-nigh t sleep study and trial PAP if positive. [id number] SADE Garcia [facility] ([place]) [address] [facility],[address] [place] [address] 06/07/2025 14:55:39 06/07/2025 17:49:29 Acute kidney injury 58327302 N17.9 4981162 [id number] VINICIUS PRITCHARD NP [address] [facility] ([place]) [address] [place] [address] 06/28/2025 15:53:04 06/28/2025 16:23:37 Coronary arteriosclerosis 76283928 I25.10 609971 Supraventr icular tachycardia 2315648 I47.10 69574 Hyperlipidemia 09869483 E78.5 [id number] Health Concerns Section Related Observation LastModified by Organization Detai ls LastModified Time None Recorded Concern Status LastModified by Organization Details LastModified Time None Recorded Payers Encounter Date Sequence Insurance Name Policy Number Policy Garcia Covered Member ID Garcia Member ID Guarantor Name 06/28/2025 2 [place] [facility] Leti White [id number] Leti White 06/28/2025 1 [facility] (MEDICARE REPLACEMENT/A DVANTAGE - PPO) [id number] Leti White [id number] Leti White Notes Date Note Type Note [...] concerns.All questions answered.Followup visit in 6 months. VINICIUS PRITCHARD NP [address] [place] [address], [phone], [place] [facility] 06/28/2025 16:45:10 OBGyn Episode No OBEpisode recorded.
--- OUTSIDE RECORDS SUMMARY | 2025-09-05 21:29 | XMS_ITS ---
Author Organization Unknown Address [address] [place] [address] [phone] Phone Care Team Providers Care [employer] Operations Consultant Name Role Phone COLBY HSU ROBERT Attending Unavailable CARRILLO COATS Primary Unavailable Social History Type Status Start Date End Date Code Code Syst em Smoking History Never smoker (Never Smoked) 486100592 SNOMED CT Sex Female Medications Medication Start Date End Date Route Frequency Dose Code Code System Medication Instructions Home Meds Zofran 4MG Oral Tablet 05/03/2025 Unknown ORAL EVERY 6 HOURS 1 TABLET 143590 RxNorm TAKE 1 TABLET ORAL EVERY 6 [...] Code Code System CHRONIC NECK PAIN active 397610923284 7 SNOMED-CT DISORDER OF ROTATOR CUFF active 279855824 SNOMED-CT SPRAIN OF LEFT SHOULDER active 73579057565683248 SNOMED-CT CHRONIC BACK PAIN active 977352176 SN OMED-CT CHRONIC MIGRAINE active 750872452 SNO MED-CT DIABETES active 04795124 SNOMED-CT GASTROPARESES active 449043415 SNOMED -CT ERIKA CELL NEOPLASM active 201726785 SNOMED-CT HYPERTENSION active 07516804 SNOMED- CT DRUG SEEKING BEHAVIOR active 59526527 SNOMED-CT MALINGERING active 73181391 SNOMED-C 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 10/24/2024 resolved 99569456 SNOMED-CT Allergies and Adverse Reactions Allergy Substance Reaction Severity Start Date Concern Status Code Code System PROCHLORPERAZINE go crazy (SNOMED-CT: null) Severe Active 8704 RxNorm ISOSORBIDE MONONITRATE SOB, anxiety (SNOMED-CT: null) Active 45175 RxNorm CLARITHROMYCIN Vomiting (SNOMED-CT: 042730788) Severe Active RxNorm BENADRYL went crazy (SNOMED-CT: null) Severe Active 20340118 RxNorm IMITREX Tachycardia (SNOMED-CT: 8645359) Moderate Active 454395 RxNorm Plan of Treatment No Data Found Encounters Encounter Diagnosis Start Date Code Code Sys tem Migraine, unspecified, intra ctable, without status migrainosus 06/20/2025 [employer] Personal Care Team Section
--- OUTSIDE RECORDS SUMMARY | 2025-09-05 21:29 | XMS_ITS | Continuity of Care Document ---
Author Organization [facility] Address [address] [place] [address] Care Team Providers Care Vp Software Name Role Phone DRAKE FARRIS Baseball Sewer Hand PAULY VIZCAINO Primary Care Provider [phone] PAULY VIZCAINO Referring Provider [phone] DELIA HALL Mining Analyst Assessment Encounter Date Assessment Date Assessment LastModified [...] Total time spent: 19 minutes (Tracked by NTQ-Data) [id number] Not available 07/04/2025 11:56:04 Plan of Treatment Reminders Order Date Submit Date Provider Last Modified By Organization Details Last Modified Time Details Appointments Compl ete Physi radha Adult 40.ES T 2024 10:40A M Melissa Macias Not available Not available Not available Estab judy Stoner nt 15.ES T 2024 02:00P M Kya Pritchard Not available Not available [...] Not available Pulm Funct ion Metha choli ne.PA O 2025 02:00P M [facility] Not available Not available Not available Estab judy Brunnere nt 15.ES T 2025 11:15[address] M Dr[address] Carrol Villagomez Not available Not available Not available New Herbie nt Visit 10.NE W 2025 11:50A M Dr. Shital Mendes Not available Not available Not available Estab judy Brunnere nt 15.ES T 2025 01:30P M Tiffanie Painting Not available Not available Not available Estab judy Stoner nt 15.ES T 2025 03:00P M Kya Wilsonill Not available Not available Not available Estab judy Brunnere nt 15.ES T 2025 02:00P M Kya Pritchard Not available Not available Not available Lab None recor ded. Referral None recor ded. Procedures None recor ded. Surgeries None recor ded. Imaging None recor ded. Medication Orders Aimov ig Autoi nject or 140 mg/mL subcu taneo us auto- injec tor 2024 025 [place], [place], [address] [place] [address], [id number], 08/31/2025 18:12:03 queti apine 25 mg table t 2024 025 [place], [address] [place] [address], 73233, 08/11/2025 17:46:31 venla faxin e ER 150 mg capsu le,ex tende d relea se 24 hr 2024 025 [place], [address] [place] [address], 42969, 08/04/2025 17:59:46 venla faxin e ER 75 mg capsu le,ex tende d relea se 24 hr 2024 025 [place], [address] [place] [address], 18632, 08/04/2025 17:59:46 Patient TargetsNo targets recorded. Patient InstructionsNo instructions recorded. Reason for Referral None Reported. Results Created Date Observation Date Name Description Value Unit Range Abnormal Flag Note LastModifiedBy Organization Detail LastModifiedTime 06/07/2006/07/2025 CBC CBC Not Available [facility] [address] [place] [address], 37272, 06/07/2025 19:14:12 06/07/2006/07/2025 CBC WBC 5.9 K/uL 3.8-11 .2 Not Available [facility] [address] [place] [address], 01094, 06/07/2025 19:14:12 06/07/2006/07/2025 CBC RBC 4.18 M/uL 3.92-5 .10 Not Available [facility] [address] [place] [address], 29012, 06/07/2025 19:14:12 06/07/2006/07/2025 CBC HGB 11.5 g/dL 11.8-1 5.3 low Not Available [facility] [address] [place] [address], 37495, 06/07/2025 19:14:12 06/07/2006/07/2025 CBC HCT 35.2 % 36.5-4 4.8 low Not Available [facility] [address] [place] [address], 02926, 06/07/2025 19:14:12 06/07/2006/07/2025 CBC MCV 84.2 fL 80.0-9 9.0 Not Available [facility] [address] [place] [address], 77438, 06/07/2025 19:14:12 06/07/2006/07/2025 CBC MCH 27.5 pg 25.5-3 3.6 Not Available [facility] [address] [place] [address], 92446, 06/07/2025 19:14:12 06/07/2006/07/2025 CBC MCHC 32.7 g/dL 32.0-3 6.0 Not Available [facility] [address] [place] [address], 44862, 06/07/2025 19:14:12 06/07/2006/07/2025 CBC RDW-SD 39.6 fL 35.1 - 46.3 Not Available [facility] [address] [place] [address], 96829, 06/07/2025 19:14:12 06/07/2006/07/2025 CBC plt 272 K/uL 130-40 0 Not Available [facility] [address] [place] [address], 50620, 06/07/2025 19:14:12 06/07/2006/07/2025 CBC MPV 9.9 fL 9.3-12 .8 Not Available [facility] [address] [place] [address], 88315, 06/07/2025 19:14:06/07/2006/07/2025 urina lysis , compl ete urinalysis, complete LOW LEVEL S OF HEMOG LOBIN IN ABSEN CE OF HEMAT URIA MAY NOT BE CLINI MARCOS SIGNI FICAN T. Not Available [facility] [address] [place] [address], 74378, 06/07/2025 19:21:12 06/07/2006/07/2025 urina lysis , compl ete color DARK YELLOW Dipst ick may be inacc urate due to the color of the urine Not Available [facility] [address] [place] [address], 57005, 06/07/2025 19:21:12 06/07/2006/07/2025 urina lysis , compl ete clarity CLEAR Not Available [facility] [address] [place] [address], 06834, 06/07/2025 19:21:12 06/07/2006/07/2025 urina lysis , compl ete pH 7.0 5.0-7. 5 Not Available [facility] [address] [place] [address], 89671, 06/07/2025 19:21:12 06/07/2006/07/2025 urina lysis , compl ete specific gravity 1.010 1.000- 1.030 Not Available [facility] [address] [place] [address], 27108, 06/07/2025 19:21:12 06/07/2006/07/2025 urina lysis , compl ete blood NEGATI VE negati ve Not Available [facility] [address] [place] [address], 14060, 06/07/2025 19:21:12 06/07/2006/07/2025 urina lysis , compl ete bilirubin NEGATI VE negati ve Not Available [facility] [address] [place] [address], 59317, 06/07/2025 19:21:12 06/07/2006/07/2025 urina lysis , compl ete urobilinogen 1.0 0.2-1. 0 Not Available [facility] [address] [place] [address], 41921, 06/07/2025 19:21:12 06/07/2006/07/2025 urina lysis , compl ete ketone NEGATI VE negati ve Not Available [facility] [address] [place] [address], 63715, 06/07/2025 19:21:12 06/07/2006/07/2025 urina lysis , compl ete glucose NEGATI VE negati ve Not Available [facility] [address] [place] [address], 65809, 06/07/2025 19:21:12 06/07/2006/07/2025 urina lysis , compl ete protein NEGATI VE negati ve Not Available [facility] [address] [place] [address], 25806, 06/07/2025 19:21:12 06/07/2006/07/2025 urina lysis , compl ete nitrite POSITI VE negati ve abnormal Not Available [facility] [address] [place] [address], 77286, 06/07/2025 19:21:12 06/07/2006/07/2025 urina lysis , compl ete leukocytes 1+ negati ve abnormal Not Available [facility] [address] [place] [address], 19051, 06/07/2025 19:21:12 06/07/2006/07/2025 urina lysis , compl ete review * Micro scopi c resul ts revie wed by [employer] . Not Available [facility] [address] [place] [address], 72330, 06/07/2025 19:21:12 06/07/2006/07/2025 urina lysis , compl ete RBC 0-2 0-2/hp f Not Available [facility] [address] [place] [address], 09888, 06/07/2025 19:21:12 06/07/2006/07/2025 urina lysis , compl ete WBC 0-5 0-5/hp f Not Available [facility] [address] [place] [address], 93018, 06/07/2025 19:21:12 06/07/2006/07/2025 urina lysis , compl ete WBC. CONFI Cell count s confi rmed by [employer] . Not Available [facility] [address] [place] [address], 60407, 06/07/2025 19:21:12 06/07/2006/07/2025 urina lysis , compl ete squamous epithelial 3-5 0-10/h pf Not Available [facility] [address] [place] [address], 82579, 06/07/2025 19:21:12 06/07/20 25 06/07/2025 urina lysis , compl ete bacteria NONE SEEN none Not Available [facility] [address] [place] [address], 03910, 06/07/2025 19:21:12 06/07/2006/07/2025 urina lysis , compl ete hyaline cast 0-2 0-2/lp f Not Available [facility] [address] [place] [address], 77495, 06/07/2025 19:21:12 06/07/20 25 06/07/2025 renal funct ion panel , serum renal function panel Not Available [facility] [address] [place] [address], 01952, 06/07/2025 19:42:24 06/07/20 25 06/07/2025 renal funct ion panel , serum sodium 140 mmol/ L 136-14 6 Not Available [facility] [address] [place] [address], 50954, 06/07/2025 19:42:24 06/07/20 25 06/07/2025 renal funct ion panel , serum potassium 4.0 mmol/ L 3.5-5. 1 Not Available [facility] [address] [place] [address], 66109, 06/07/2025 19:42:24 06/07/20 25 06/07/2025 renal funct ion panel , serum chloride 106 mmol/ L 98-110 Not Available [facility] [address] [place] [address], 87030, 06/07/2025 19:42:24 06/07/20 25 06/07/2025 renal funct ion panel , serum CO2 25 mEq/L 20-32 Not Available [facility] [address] [place] [address], 95026, 06/07/2025 19:42:24 06/07/20 25 06/07/2025 renal funct ion panel , serum anion gap 13 mmol/ L 10-22 Not Available [facility] [address] [place] [address], 73948, 06/07/2025 19:42:24 06/07/2006/07/2025 renal funct ion panel , serum glucose 188 mg/dL 70-100 high Not Available [facility] [address] [place] [address], 84831, 06/07/2025 19:42:24 06/07/20 25 06/07/2025 renal funct ion panel , serum calcium 9.5 mg/dL 8.4-10 .4 Not Available [facility] [address] [place] [address], 41748, 06/07/2025 19:42:24 06/07/20 25 06/07/2025 renal funct ion panel , serum albumin 4.1 g/dL 3.5-5. 3 Not Available [facility] [address] [place] [address], 28667, 06/07/2025 19:42:24 06/07/2006/07/2025 renal funct ion panel , serum phosphorus 3.1 mg/dL 2.7-4. 5 Not Available [facility] [address] [place] [address], 54057, 06/07/2025 19:42:24 06/07/2006/07/2025 renal funct ion panel , serum BUN 15 mg/dL 7-21 Not Available [facility] [address] [place] [address], 23286, 06/07/2025 19:42:24 06/07/2006/07/2025 renal funct ion panel , serum creatinine 0.9 mg/dL 0.7-1. 3 Not Available [facility] [address] [place] [address], 96183, 06/07/2025 19:42:24 06/07/2006/07/2025 renal funct ion panel , serum CKD-epi GFR 76 eGFR was calcu lated using the 2020 CKD-E PI equat ion. (Be Gonzalez se has an eGFR less than 60 mL/mi n/1.7 3mm for a perio d of three month s or more. ) This calcu latio n has not been valid ated for patie nt ages <18 or >90 years old. Not Available [facility] [address] [place] [address], 09032, 06/07/2025 19:42:24 06/07/2006/08/2025 micro album in, urine microalbumin ,random panel Not Available [facility] [address] [place] [address], 17176, 06/08/2025 10:13:00 06/07/2006/08/2025 micro album in, urine microalbumin random 0.5 mg/dL Not Available [facility] [address] [place] [address], 30393, 06/08/2025 10:13:00 06/07/20 25 06/08/2025 micro album in, urine creatinine, urine random 37 mg/dL Refer ence range not estab lishe d for other than 24 hour colle ction . Not Available [facility] [address] [place] [address], 56863, 06/08/2025 10:13:00 06/07/20 25 06/08/2025 micro album [...] luzmaria l range s have been estab lislyla d for cordell Taylor album in or Creat inine .) Not Available [facility] [address] [place] [address], 47960, 06/08/2025 10:13:00 06/07/20 25 06/08/2025 C4 (comp lemen t), serum or plasm a complement C4 44 mg/dL 12-38 high Not Available [facility] [address] [place] [address], 06269, 06/08/2025 14:11:19 06/07/20 25 06/08/2025 C3 (comp lemen t), serum or plasm a complement C3 201 mg/dL 82-167 high Not Available [facility] [address] [place] [address], 95296, 06/08/2025 14:11:20 06/07/20 25 06/08/2025 ADALBERTO (anti nucle ar antib odies ) scree n, serum ADALBERTO screen NEGATI VE negati ve Perfo rmed by Bio-R ad enzym e immun oassa y Not Available [facility] [address] [place] [address], 94544, 06/08/2025 15:48:52 06/07/2006/09/2025 cultu re + sensi [...] resis tant inter preta tion Not Available [facility] [address] [place] [address], 14879, 06/09/2025 09:46:55 06/07/2006/09/2025 immun ofixa tion, serum immunofixati on, serum No monoc lonal ity detec michelle. Not Available [facility] [address] [place] [address], 20214, 06/09/2025 15:12:43 06/07/2006/09/2025 immun ofixa tion, serum IgG quantitative 1147 mg/dL 586-16 02 Not Available [facility] [address] [place] [address], 03282, 06/09/2025 15:12:43 06/07/20 25 06/09/2025 immun ofixa tion, serum IgA quantitative 393 mg/dL 87-352 high Not Available [facility] [address] [place] [address], 18951, 06/09/2025 15:12:43 06/07/20 25 06/09/2025 immun ofixa tion, serum IgM quantitative 80 mg/dL 26-217 Not Available [facility] [address] [place] [address], 90205, 06/09/2025 15:12:43 06/07/20 25 06/12/2025 anca panel , serum anca, complete Not Available [facility] [address] [place] [address], 41232, 06/12/2025 20:10:54 06/07/2006/12/2025 anca panel , serum myeloperoxid ase Ab <0.2 units 0.0-0. 9 Not Available [facility] [address] [place] [address], 51852, 06/12/2025 20:10:54 06/07/2006/12/2025 anca panel , serum proteinase-3 Ab, anca <0.2 units 0.0-0. 9 Not Available [facility] [address] [place] [address], 51362, 06/12/2025 20:10:54 06/07/2006/12/2025 anca panel , serum C-anca titer <1:20 titer neg:<1 :20 Not Available [facility] [address] [place] [address], 36262, 06/12/2025 20:10:54 06/07/2006/12/2025 anca panel , serum [...] l 1999; 111:5 07-51 3. Not Available [facility] [address] [place] [address], 52128, 06/12/2025 20:10:54 06/07/2006/12/2025 anca panel , serum atypical P anca titer <1:20 titer neg:<1 :20 The atypi radha pANCA patte rn has been obser elva in a signi fican t perce ntage of patie nts with ulcer ative colit is, prima ry scler osing chola ngiti s and autoi mmune hepat itis. Not Available [facility] [address], [address], 06/12/2025 20:10:54 06/07/20 25 06/07/2025 UE urine eosinophils NEGATI VE Not Available [facility] - [facility] [address] [place] [address], [place], [address], 06/07/2025 23:40:52 06/07/2006/08/2025 cultu re + sensi tivit y, urine urine culture and sens. PREL IM URINE GRAM NEGAT MARQUIS RODS DATE/ TIME: 06/08 10:17 >100, 000 CFU/m L Not Available [facility] [address] [place] [address], 22224, 06/08/2025 11:18:58 06/18/20 25 06/20/2025 C URINE urine culture (new) abnormal Print Date/ Time: 2024 10:46 CDT Patie nt: JANINA HWITE P Micro biolo gy - Uroge nital [...] furth er work- up is neede d. PA ELIMI NARY REPOR TS Preli minar y Repor t [] Verif ied Date/ Time: 2024 14:19 CDT Moder ate proba ble carmen ferrell ts inclu din,00 0 cfu/m l Gram Negat marquis Rods Cultu re reinc ubate d Not Available [facility] - [facility] [address] [place] [address], 11328, 06/20/2025 11:46:50 06/18/2006/18/2025 UACS color Pauline Not Available [facility] - [facility] [address] [place] [address], 73356, 06/18/2025 17:21:53 06/18/2006/18/2025 UACS appearance Clear Not Avail able [facility] - [facility] [address] [place] [address], 85266, 06/18/2025 17:21:53 06/18/2006/18/2025 UACS specific gravity 1.012 1.003- 1.030 Not Available [facility] - [facility] [address] [place] [address], 79652, 06/18/2025 17:21:53 06/18/2006/18/2025 UACS pH urine 6.0 4.5-7. 5 Not Available [facility] - [facility] [address] [place] [address], 36151, 06/18/2025 17:21:53 06/18/2006/18/2025 UACS protein 30 abnormal Not Availa ble [facility] Only - [facility] [address] [place] [address], 43574, 06/18/2025 17:21:53 06/18/20 25 06/18/2025 UACS urine glucose Negati ve Not Available [facility] - [facility] [address] [place] [address], 07429, 06/18/2025 17:21:53 06/18/2006/18/2025 UACS ketones Negati ve Not Available [facility] [address], [address]50, 06/18/2025 17:21:53 06/18/2006/18/2025 UACS urine bilirubin Negati ve Not Available [facility] [address] [place] [address], 03964, 06/18/2025 17:21:53 06/18/2006/18/2025 UACS urine HGB Small abnormal Not Avai lable [facility] [address] [place] [address], 09552, 06/18/2025 17:21:53 06/18/2006/18/2025 UACS nitrite Positi ve abnormal Not Available [facility] [address] [place] [address], 06480, 06/18/2025 17:21:53 06/18/2006/18/2025 UACS leukocyte esterase Negati ve Not Available [facility] [address] [place] [address], 49934, 06/18/2025 17:21:53 06/18/2006/18/2025 UACS urobilinogen >=4.0 abnormal Not A vailable [facility] [address] [place] [address], 93566, 06/18/2025 17:21:53 06/18/2006/18/2025 UACS urine WBCs 2 /hpf 0-4 Not Avail able [facility] [address], 75309, 06/18/2025 17:21:53 06/18/20 25 06/18/2025 UACS urine RBCs 0 /hpf 0-2 Not Avail able [facility] - [facility] [address] [place] [address], 23598, 06/18/2025 17:21:53 06/18/2006/18/2025 UACS squamous epithelial cells 6 /hpf 0-5 high Not Available [facility] - [facility] [address], 64297, 06/18/2025 17:21:53 06/18/2006/18/2025 UACS bacteria Few abnormal Not Avail able [facility] - [facility] [address] [place] [address], 32281, 06/18/2025 17:21:53 06/18/2006/18/2025 UACS color Pauline Not Available [facility] - [facility] [address] [place] [address], 57476, 06/18/2025 17:21:52 06/18/2006/18/2025 UACS appearance Clear Not Avail able [facility] - [facility] [address] [place] [address], 02668, 06/18/2025 17:21:52 06/18/2006/18/2025 UACS specific gravity 1.012 1.003- 1.030 Not Available [facility] - [facility] [address] [place] [address], 27367, 06/18/2025 17:21:52 06/18/2006/18/2025 UACS pH urine 6.0 4.5-7. 5 Not Available [facility] - [facility] [address] [place] [address], 60799, 06/18/2025 17:21:52 06/18/2006/18/2025 UACS protein 30 abnormal Not Availa ble [facility] - [facility] [address], 95426, 06/18/2025 17:21:52 06/18/20 25 06/18/2025 UACS urine glucose Negati ve Not Available [address], 28117, 06/18/2025 17:21:52 06/18/2006/18/2025 UACS ketones Negati ve Not Available [address], 29696, 06/18/2025 17:21:52 06/18/2006/18/2025 UACS urine bilirubin Negati ve Not Available [address], 89730, 06/18/2025 17:21:52 06/18/2006/18/2025 UACS urine HGB Small abnormal Not Avai lable [facility] - [address], 40968, 06/18/2025 17:21:52 06/18/2006/18/2025 UACS nitrite Positi ve abnormal Not Available [address], 67907, 06/18/2025 17:21:52 06/18/2006/18/2025 UACS leukocyte esterase Negati ve Not Available [address], 80847, 06/18/2025 17:21:52 06/18/2006/18/2025 UACS urobilinogen >=4.0 abnormal Not A vailable [facility] - [address], 68207, 06/18/2025 17:21:52 06/18/20 25 06/18/2025 UACS urine WBCs 2 /hpf 0-4 Not Avail able [facility] - [address], 36761, 06/18/2025 17:21:52 06/18/20 25 06/18/2025 UACS squamous epithelial cells 6 /hpf 0-5 high Not Available [facility] - [place] [address] [place] [address], 26678, 06/18/2025 17:21:52 06/18/2006/18/2025 UACS bacteria Few abnormal Not Avail able [facility] - [facility] [address] [place] [address], 93498, 06/18/2025 17:21:52 06/18/20 25 06/18/2025 EGFR eGFR [...] [facility] Only - [facility] [address] [place] [address], 94673, 06/18/2025 17:15:19 06/18/20 25 06/18/2025 LPSE lipase,serum 18 u/L 11-82 Not Dalila ilable [facility] - [facility] [address] [place] [address], 13022, 06/18/2025 17:15:18 06/18/20 25 06/18/2025 CMP sodium 139 mmol/ L 136-14 5 Not Available [facility] - [facility] [address] [place] [address], 79986, 06/18/2025 17:15:16 10/05/06/18/2025 CMP potassium 4.1 mmol/ L 3.5-5. 1 Not Available [facility] - [facility] [address] [place] [address], 17502, 06/18/2025 17:15:16 06/18/2006/18/2025 CMP chloride 106 mmol/ L 98-107 Not Available [facility] - [facility] [address] [place] [address], 39748, 06/18/2025 17:15:16 06/18/2006/18/2025 CMP CO2 24 mmol/ L 21-31 Not Available [facility] - [facility] [address] [place] [address], 48227, 06/18/2025 17:15:16 06/18/2006/18/2025 CMP BUN 9 mg/dL 7-25 Not Available [facility] - [facility] [address] [place] [address], 83458, 06/18/2025 17:15:16 06/18/2006/18/2025 CMP creatinine 0.8 mg/dL 0.6-1. 3 Not Available [facility] - [facility] [address] [place] [address], 48925, 06/18/2025 17:15:16 06/18/2006/18/2025 CMP glucose 210 mg/dL 70-105 high Not Availabl e [facility] Only - [facility] [address] [place] [address], 13248, 06/18/2025 17:15:16 06/18/2006/18/2025 CMP calcium 9.3 mg/dL 8.6-10 .3 Not Available [facility] - [facility] [address] [place] [address], 45078, 06/18/2025 17:15:16 06/18/2006/18/2025 CMP total protein 7.2 gm/dL 6.0-8. 3 Not Available [facility] - [facility] [address] [place] [address], 83769, 06/18/2025 17:15:16 06/18/20 25 06/18/2025 CMP albumin 4.0 gm/dL 3.5-5. 7 Not Available [facility] - [address], 27542, 06/18/2025 17:15:16 06/18/20 25 06/18/2025 CMP bilirubin (total) 0.8 mg/dL 0.3-1. 0 Not Available [facility] - [address], 96965, 06/18/2025 17:15:16 06/18/2006/18/2025 CMP AST 24 IU/L 13-39 Not Available [facility] - [address], 95279, 06/18/2025 17:15:16 06/18/2006/18/2025 CMP alk phos 134 IU/L 34-104 high Not Availab le [facility] - [address], 78731, 06/18/2025 17:15:16 06/18/2006/18/2025 CMP ALT 15 IU/L 7-52 Not Available [facility] - [address], 59989, 06/18/2025 17:15:16 06/18/2006/18/2025 CMP anion gap 9 8-16 Anion gap calcu lated using formu la: Na - (Cl + CO2) Measu red total CO2 is used in place of HCO3 Not Available [facility] - [address], 17211, 06/18/2025 17:15:16 06/18/20 25 06/18/2025 DBIL bilirubin (direct) 0.1 mg/dL 0.0-0. 2 Not Available [facility] - [address], 04316, 06/18/2025 17:15:14 06/18/20 25 06/18/2025 DIFF neutrophils 64 % 47-67 Not Avai lable [facility] - [address], 27946, 06/18/2025 16:50:30 06/18/20 25 06/18/2025 DIFF lymphocytes 23 % 25-45 low Not Avai lable [facility] - [address], 63786, 06/18/2025 16:50:30 06/18/20 25 06/18/2025 DIFF monocytes 8 % 1-9 Not Availa ble [facility] - [address], 90920, 06/18/2025 16:50:30 06/18/20 25 06/18/2025 DIFF eosinophils 3 % 0-6 Not Avai lable [facility] - [address], 67833, 06/18/2025 16:50:30 06/18/20 25 06/18/2025 DIFF basophils 1 % 0-2 Not Availa ble [facility] - [address], 60309, 06/18/2025 16:50:30 06/18/20 25 06/18/2025 DIFF absolute neutrophils 5.0 K/cum m 1.8-6. 5 Not Available [facility] - [address], 27597, 06/18/2025 16:50:30 06/18/20 25 06/18/2025 DIFF absolute lymphocytes 1.8 K/cum m 0.9-3. 0 Not Available [facility] - [address], 27498, 06/18/2025 16:50:30 06/18/20 25 06/18/2025 DIFF absolute monocytes 0.6 K/cum m 0.2-0. 8 Not Available [facility] - [address] [place], [address], 06/18/2025 16:50:30 06/18/20 25 06/18/2025 DIFF absolute eosinophils 0.3 K/cum m 0.0-0. 4 Not Available [facility] - [address], 65494, 06/18/2025 16:50:30 06/18/20 25 06/18/2025 DIFF absolute basophils 0.1 K/cum m 0.0-0. 2 Not Available [facility] Only [address], [address], 06/18/2025 16:50:30 06/18/20 25 06/18/2025 CBC W/ AUTO DIFF WBC 7.8 K/cum m 3.4-9. 4 Not Available [facility] [address], [address], 06/18/2025 16:50:28 06/18/20 25 06/18/2025 CBC W/ AUTO DIFF RBC 4.23 M/cum m 4.20-5 .40 Not Available [facility] - [address], [address], 06/18/2025 16:50:28 06/18/20 25 06/18/2025 CBC W/ AUTO DIFF hemoglobin 11.5 gm/dL 12.0-1 6.0 low Not Available [facility] - [address], [address], 06/18/2025 16:50:28 06/18/20 25 06/18/2025 CBC W/ AUTO DIFF hematocrit 35 % 37-47 low Not Available Ca Only - [address], [address], 06/18/2025 16:50:28 06/18/20 25 06/18/2025 CBC W/ AUTO DIFF MCV 83 81-94 Not Available Ca Only - [address], [address], 06/18/2025 16:50:28 06/18/20 25 06/18/2025 CBC W/ AUTO DIFF MCH 27.1 pg 27.5-3 3.2 low Not Available Ca Only - [facility] [address] [place] [address], [address], 06/18/2025 16:50:28 06/18/20 25 06/18/2025 CBC W/ AUTO DIFF MCHC 32.6 g/dL 31.0-3 6.0 Not Available Ca Only - [facility] [address] [place] [address], [address], 06/18/2025 16:50:28 06/18/20 25 06/18/2025 CBC W/ AUTO DIFF RDW 14.1 % 11.7-1 5.5 Not Available Ca Only - [facility] [address] [place] [address], [address], 06/18/2025 16:50:28 06/18/20 25 06/18/2025 CBC W/ AUTO DIFF platelets 278 K/cum m 140-41 0 Not Available [facility] [address] [place] [address], [address], 06/18/2025 16:50:28 06/18/20 25 06/18/2025 CBC W/ AUTO DIFF MPV 7.9 mL Not Available Ca Only - [facility] [address] [place] [address], [address], 06/18/2025 16:50:28 06/18/20 25 06/19/2025 C URINE urine culture (new) abnormal Print Date/ Time: 2024 14:19 CDT Patie nt: JANINA WHITE P Micro biolo gy - Uroge nital Legen d: c=Cor recte d, F=Res ult Comme nt, S=Idalia cepti ble, I=Int ermed iate, R=Res istan t, N/A=N ot Appli cable PROCE DURE: Urine Cultu re [] ACCES LIA: [id number] SOURC E: Urine BODY SITE: COLLE [...] Cultu re reinc ubate d Not Available Ca Only - [facility] [address] [place] [address], [address], 06/19/2025 15:19:31 06/28/20 25 06/30/2025 alpha -1-an titry psin (aat) , QN, serum A-1 antitrypsin phenotype Not Available [facility] [address] [place] [address], [address], 06/30/2025 17:12:05 06/28/20 25 06/30/2025 alpha -1-an titry psin (aat) , QN, serum kkfoz-1-xiei trypsin 140 mg/dL 101-18 7 Not Available [facility] - [facility] [address] [place] [address], [address], 06/30/2025 17:12:05 06/28/2006/30/2025 alpha -1-an titry psin [...] to confi rm pheno type. Not Available [facility] - [facility] [address] [place] [address], [address], 06/30/2025 17:12:05 06/05/20 25 06/03/2024 CT, angio gram, chest , w/ contr ast No observ ation record ed. [email or web address] Not Available 2024 16:05:59 06/07/20 25 06/07/2025 XR, chest , 2 [place] [address] Tele one [phone] Name: TL WHITE [id number] am Date: [...] 3:01 PM cc: Page [facility] MIKE Sc Only - Sc [facility] [address], [place], [address], 06/08/2025 14:33:15 07/27/20 25 07/27/2025 CT, abdom en + pelvi s, w/ contr ast [facility] [address] [place] [address] [phone] Name: TL WHITE Age: 54 : 1970 Exam Date: 2024 ACCESS ION: [id number] ORDERI WERNER MD: MILE HOLLINGSWORTH EXAMIN ATION: [...] ing approx imatel y 1.1 cm in [facility] er. There is no hydron ephros [...] soft tissue nodule s and dystro phic insole tape stitcher uco ior soft tissue calcif icatio ns, contin [...] : 20:47 Tye hernandez MD, Isabella EGAN Ca Only - [facility] [address] [place] [address], [address], 07/27/2025 21:51:11 08/01/20 25 08/01/2025 imagi ng/di agnos tic resul t No observ ation record ed. [email or web address] [facility] - Radiology [address] [place], [address], 08/01/2025 17:37:33 08/03/20 25 08/03/2025 D abdom en 1 view [facility] [address] [place] [address] Name: TL WHITE Age: 54 : 1970 Exam Date: 2024 ACCESS ION: [id number] BLAISE CALDERA MD: BRIDGET BOWLES EXAM: Abdome [...] MD Signed : 20:05 Juwan Metzger MD [facility] Only - [facility] [address] [place] [address], [address], 08/03/2025 21:09:24 08/20/20 25 08/20/2025 D abdom en 1 view [facility] [address] [place] [address] Name: TL WHITE Age: 54 : 1970 Exam Date: 2024 ACCESS ION: [id number] BLAISE CALDERA MD: ANKUSH JOEL EXAMIN ATION: [...] was dictat ed remote ly by a [facility] Radiol ogist in [place], [place]. /CS:cs D: 2024 16:08 T: 2024 16:08 Final Report Dictat ed: 16:08 Minna Underwood MD Signed : 16:08 Minna Underwood MD INTERFACE Sc Only - [facility] [address], [place], [address], 08/20/2025 17:11:56 09/05/20 25 09/05/2025 elect jennie diogr am, routi ne ECG, 12 leads min No observ ation record ed. INTERFACE Sc Only - [facility] [address] [address], [place], [address], 09/05/2025 15:23:33 09/05/20 25 08/18/2025 imagi ng/di agnos tic resul t No observ ation record ed. [address] Radiology [address], [place], [address], 09/05/2025 17:07:07 09/05/20 25 08/18/2025 CT, abdom en + pelvi s, w/ contr ast No observ ation record ed. [facility] [address], [place], [address], 09/05/2025 18:33:06 Result Notes None recorded. Problems Name Problem SNOMED Code Status Onset Date Resolution Date Notes Provider Name and Address Organization Details Recorded Time Migraine 66487799 Active 2020 Not Available [facility] 5 22:06:56 Hypertens marquis disorder 38224888 Active 2020 Not Available [facility] 5 22:06:56 Atypical squamous cells of undetermi tiffanie significa nce on cervical Papanicol aou smear 723728770 Active 2020 Not Available [facility] 22:06:56 Second degree uterine prolapse 5949873 Active 2022 Not Available [facility] 5 22:06:56 Chest pain 51008078 Active 2022 Not Available [facility] 5 22:07:15 Preinfarc tion syndrome 3576319 Active 2022 Not Available [facility] 5 22:07:58 Coronary arteriosc lerosis 44766093 Active 2023 Not Available [facility] 22:06:26 Essential hypertens ion 90085770 Active 2023 Not Available [facility] 5 22:06:26 Hyperchol esterolem ia 76858609 Active 2023 Not Available [facility] 5 22:06:26 Abdominal pain 08450121 Active 2023 Not Available [facility] 5 22:08:28 Thoracic radiculop athy 64379970 Active 2023 Not Available [facility] 5 22:07:18 Cervical radiculop athy 12604508 Active 2023 Not Available [facility] 5 22:07:18 Lumbar spondylos is 660040662 Active 2023 Not Available [facility] 5 22:07:18 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 92616603019 9106 Active 2023 following with endocrino logy Not Available [facility] 5 22:07:26 Spinal arachnoid cyst 514840163 Active 2023 Not Available [facility] 5 22:07:42 Morbid obesity 121276851 Active 2024 Not Available [facility] 5 22:08:30 Gastropar esis syndrome 711323571 Active 2024 Not Available [facility] 5 22:08:30 Gastroeso phageal reflux disease 884447447 Active 2024 Not Available [facility] 5 22:08:30 Dyspnea 033660951 Active 2024 Not Available [facility] 5 22:10:22 Pain of left shoulder region Active 2024 Not Available [facility] 5 22:10:22 Bilateral cramp of muscle of lower limbs 70600404857 525048 Active 2024 Not Available [facility] 5 22:10:22 Fibromyal chuck 925740554 Active 2024 Not Available [facility] 5 22:08:30 Recurrent major depressio n in remission 91960002 Active 2024 Not Available [facility] 5 22:08:30 Primary insomnia 4078585 Active 2024 Not Available [facility] 5 22:08:30 Swelling of lower limb 050682625 Active 2024 Not Available [facility] 5 22:08:41 Palpitati ons 02263322 Active 2024 Not Available [facility] 5 22:09:22 Dyspnea on exertion 87157571 Active 2024 Not Available [facility] 5 22:11:38 Hyperlipi demia 59946569 Active 2024 Not Available [facility] 5 22:09:44 Edema of lower extremity 079869478 Active 2024 Not Available [facility] 5 22:09:44 Persisten t depressiv e disorder 4319499857 Active 2024 Not Available [facility] 5 22:09:45 Restless legs syndrome 13852322 Active 2024 Not Available [facility] 5 22:09:45 Atypical chest pain 605915823 Active 2024 Not Available [facility] 5 22:12:17 Anemia 206688404 Active 2024 Not Available [facility] 5 22:12:35 Acute kidney injury 01910485 Active 2024 Not Available [facility] 5 22:12:35 Mycosis 0526391 Active 2024 Not Available [facility] 5 22:10:03 Obstructi ve sleep apnea syndrome 96140234 Active 2024 Not Available [facility] 5 22:10:20 Acute urinary tract infection 502368798 Active 2024 Not Available [facility] 5 22:10:25 Alpha-1-a ntitrypsi n deficienc y 01674975 Active 2024 Not Available [facility] 5 22:10:34 Supravent ricular tachycard ia 3808757 Active 2024 Not Available [facility] 5 22:10:35 Abdominal discomfor t 85870369 Active 2024 Kimi giron [facility] 5 10:28:59 Screening colonosco py Active 2024 Kimi giron [facility] 5 10:34:05 Notes:Some problems listed i n Documents: #[id number], #[id number], #[id number] could not be added to this patient's [...] Name and Address Organization Details Recorded Time 0030593 fentanyl medicatio n headache Not available Not available 10/14/20232012 4337 RxNorm React ion: Heada syeda; Nause a; Vomit ing; Comme nt: React ion Date: 23 Aug 2013 Annot ation s: PRASHREYA BUTLEREN 2012 9:08P M Per pt repor t.; ; [facility] 5 14:41:09 2553279 prochlorp erazine medicatio n anxiety Not available Not available 05/13/20242017 8704 RxNorm [facility] 5 11:23:17 0243362 sumatript an medicatio n itching Not available Not available 05/13/20242017 14072 RxNorm [facility] 5 14:41:28 0114830 metoclopr amide Not available other Not available Not available 05/13/20242022 6915 RxNorm [facility] 5 14:41:18 6438443 diphenhyd ramine hydrochlo ride medicatio n anxiety rash Not available Not available Not available 05/13/20242017 1362 RxNorm [facility] 5 11:23:17 1961852 Duragesic medicatio n headache Not available Not available 06/22/20242012 58076 8 RxNorm React ion: Heada syeda; Nause a; Vomit ing; Comme nt: React ion Date: 23 Aug 2013 Annot ation s: PRATH SHREYA STINSONEN Dec 2012 9:08P M Per pt repor t.; ; [facility] 5 14:41:05 6726435 Compazine medicatio n other Not available Not available 11/02/202443548 6 RxNorm irrit abili ty [facility]eli [facility] 5 14:41:50 1697502 Imdur medicatio n anxiety insomnia Not available Not available [facility] 05/30/2025 02829 2 RxNorm Melissa Macias PA-C [address], [place], [address] 5 10:19:27 518098 Biaxin medicatio n nausea Not available Not available 10/12/20232006 83240 9 RxNorm React ion: Nause a; Not Available [facility] 4 21:45:38 636644 sumatript an succinate medicatio n Not available Not available Not available 10/12/20232006 05572 RxNorm React ion: Short ness of breat h; Arrhy thmia ; Not Available [facility] 4 21:45:39 664896 ciproflox acin hydrochlo ride medicatio n Not available Not available Not available 10/12/20232006 32409 RxNorm React ion: Synco pe; Short ness of breat h; Brendaaraseli Natarajan [facility] 5 14:40:56 780544 Demerol medicatio n Not available Not available Not available 10/12/20232008 02783 1 RxNorm Comme nt: Annot ation s: ISAAC Y BRAND ON 2008 3:38P M NAUSE A; ; Brenda Deraser [facility] 5 14:40:59 745675 morphine sulfate medicatio n Not available Not available Not available 10/12/20232008 80308 RxNorm Comme nt: Annot ation s: ISAAC Y BRAND ON 2008 3:39P M NAUSE A; ; [facility] 5 14:41:15 965596 hydromorp basim hydrochlo ride medicatio n Not available Not available Not available 10/12/20232008 7 RxNorm Comme nt: Annot ation s: ISAAC Y, BRAND ON 2008 3:39P M NAUSE A; ; [facility] 5 14:41:12 Medications Name Sig Start Date [...] Available Not Available Not Available Dexcom G7 Lime [employer]n Tender USE PER MANUFACT URER DIRECTIO NS 09/05 [...] Not Available Vitals Date Recorded Body height Body mass index (BMI) Body weight Heart rate Respiratory rate Oxygen saturation Systolic And Diastolic Provider Name and Address Organization Details Last Updated DateTime 5 170.18 cm 42.6 kg/m2 271062. 12 g 77 /min 16 /min 96 % 128/64 mm[Hg] Yoli Sauceda [facility] 11:22:40 Social History Question Answer Notes [...] Do You Have A Medical Power Of Pure Pak Machine Operator? Yes [email or web address] Information not available 06/13/2024 What Was The Date Of Your Most Recent Tobacco Screening? 07/04/2025 [email or web address] Information not available 07/04/2025 What Is Your Relationship Status? [email or web address] Information not available 06/13/2024 Has Tobacco Cessation Counseling Been Provided? Yes [email or web address] Information not available 03/28/2025 On What Date Was Tobacco Cessation Counseling Provided? 03/28/2025 [email or web address] Information not available 03/28/2025 Sex: Unknown Functional [...] MDCK, trivalent, PF 5 completed [facility] 09/05/2025 13:00:50 Influenza, recombinant, quadrivalent, PF 1 completed [facility] 11/02/2024 14:40:15 Influenza, recombinant, quadrivalent, PF 0 completed [facility] 11/02/2024 14:40:15 zoster recombinant 1 completed [facility] 11/02/2024 14:40:15 zoster recombinant 1 completed [facility] 11/02/2024 14:40:15 COVID-19, mRNA, LNP-S, PF, 100 mcg/0.5mL dose or 50 mcg/0.25mL dose 1 completed [facility] [place] 11/02/2024 14:40:15 COVID-19, mRNA, LNP-S, PF, 100 mcg/0.5mL dose or 50 mcg/0.25mL dose 1 completed [facility] [place] 11/02/2024 14:40:15 COVID-19, mRNA, LNP-S, PF, 100 mcg/0.5mL dose or 50 mcg/0.25mL dose 1 completed [facility] [place] 11/02/2024 14:40:15 pneumococcal polysaccharide PPV23 1 completed [facility] [place] 11/02/2024 14:40:15 influenza, unspecified formulation 4 completed [facility] 11/02/2024 14:40:15 influenza, unspecified formulation 4 completed [facility] 11/02/2024 14:40:15 influenza, unspecified formulation 3 completed [facility] 11/02/2024 14:40:15 Tdap 7 completed [facility] 11/02/2024 14:40:15 Influenza, split virus, trivalent, preservative [address] [facility] 11/02/2024 14:40:15 Influenza, split virus, quadrivalent, PF [address] [facility] 11/02/2024 14:40:15 Past Encounters Encounter ID Performer Location Encounter Start Date Encounter Closed Date Diagnosis/Indication Diagnosis SNOMED-CT Code Diagnosis ICD10 Code Diagnosis IMO Codes Diagnosis Note [id number] Carrol Villagomez MD [facility] ([place]) [address] [place] [address] 06/05/2025 15:41:18 06/05/2025 16:01:50 Dyspnea 789091920 R06.02 R06.00 83652 [id number] Uncertain as to the etiology of her [...] results of the CT scan performed at [facility] this past spring. Addendum, CTA of the chest from 06/03/2024 at [facility] showed unremarkab le pulmonary findings. She has some scattered linear atelectasi s, no consolidat ion, nodule or fluid. No mediastina l or hilar adenopathy . There was significan t coronary artery disease noted on that study. Obstructiv e sleep apnea syndrome 47705759 G47.33 91073 She has a longstandi ng history of sleep apnea diagnosed about 20 years ago down in [place] at an unknown institutio n. Is not on any treatment at this time. I do suspect she does have significan t sleep apnea that is contributi ng to her symptomato logy and we will get her worked up with a split-nigh t sleep study and trial PAP if positive. [id number] SADE Garcia [facility] ([place]) [address] [facility],[address] [place] [address] 06/07/2025 14:55:39 06/07/2025 17:49:29 Acute kidney injury 43137858 N17.9 [id number] KYA PRITCHARD NP [address] [facility] ([place]) [address] [place] [address] 06/28/2025 15:53:04 06/28/2025 16:23:37 Coronary arteriosclerosis 24282243 I25.10 595708 Supraventr icular tachycardia 4347946 I47.10 92430 Hyperlipidemia 72519854 E78.5 84562050 [id number] Melissa Macias PA-C [facility] ([place]) [address] [place] [address] 07/04/2025 11:15:12 07/04/2025 12:20:08 Primary insomnia 1091263 F51.01 Persistent depressive disorder 3587073020 F34.1 also anxiety and helps with hot flashes Migraine 13851457 G43.90 9 Recurrent major depression in remission 76739989 F33.40 5835385 Hypertensive disorder 38 596325 I10 Health Concerns Section Related Observation LastModified by Organization Detai ls LastModified Time None Recorded Concern Status LastModified by Organization Details LastModified Time None Recorded Payers Encounter Date Sequence Insurance Name Policy Number Policy Garcia Covered Member ID Garcia Member ID Guarantor Name 07/04/2025 2 [place] [facility] Leti White [id number] Leti White 07/04/2025 1 [facility] (MEDICARE REPLACEMENT/A DVANTAGE - PPO) [id number] Leti White [id number] Leti White Notes Date Note Type Note Provider Name and Address Organization Details Recorded Time 07/04/2025 text/html Patient here for follow up after starting [id number]- old female presents for follow-up on mood, [...] feeling well. Melissa Macias PA-C [address], [place], [address], [facility] 07/04/2025 12:17:39 OBGyn Episode No OBEpisode recorded.
--- OUTSIDE RECORDS SUMMARY | 2025-09-05 21:29 | XMS_ITS ---
Author Organization Unknown Address [address] [place] [address] [phone] Phone Care Team Providers Care Software Sales Executive Name Role Phone NAPOLEON STEWART Attending Unavailable CARRILLO COATS Primary Unavailable Social History Type Status Start Date End Date Code Code Syst em Smoking History Never smoker (Never Smoked) 288374637 SNOMED CT Sex Female Vital Signs Vital Sign Value Unit Abrams Value Abrams Unit Date/Time Recent/Initial? Code Code System Body Mass Index 43.38 kg/m2 04/11/2025 20:23 Initial 68818 -5 LOINC Systolic Blood Pressure 140 mm[Hg] [...] Saturation 94 % 2024 21:20 Most Recent 50943 -5 LOINC O2 Saturation 96 % 2024 20:23 Initial 99189 -5 LOINC Pulse 62.0 /min 04/11/2025 21:20 Most Recent 8867- 4 LOINC Pulse 68.0 /min 04/11/2025 20:23 Initial 8867- 4 LOINC Respiration 18 /min 04/11/20 25 21:20 Most Recent 9279- 1 LOINC Respiration 18 /min 07/29/20 25 20:23 Initial 9279- 1 [facility] Temperature 36.4 Alexandrea 97.5 F 04/11/20 20:23 Initial 8310- 5 [facility] Weight 125.65 kg 277.00 lbs 04/11/2025 20:23 Initial 22113 -7 [facility] Medications Medication Start Date End Date Route Frequency Dose Code Code System Medication Instructions Home Meds Zofran 4MG Oral Tablet 05/03/2025 Unknown ORAL EVERY 6 HOURS 1 TABLET 004871 RxNorm TAKE 1 TABLET ORAL EVERY 6 [...] Code Code System CHRONIC NECK PAIN active 660956125457 7 SNOMED-CT DISORDER OF ROTATOR CUFF active 878022809 SNOMED-CT SPRAIN OF LEFT SHOULDER active 20045845343373803 SNOMED-CT CHRONIC BACK PAIN active 722437415 SN OMED-CT CHRONIC MIGRAINE active 493143152 SNO MED-CT DIABETES active 40743264 SNOMED-CT GASTROPARESES active 309200998 SNOMED -CT ERIKA CELL NEOPLASM active 629551631 SNOMED-CT HYPERTENSION active 43739044 SNOMED- CT DRUG SEEKING BEHAVIOR active 78061597 SNOMED-CT MALINGERING active 68400652 SNOMED-C 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 10/24/2024 resolved 82553251 SNOMED-CT Allergies and Adverse Reactions Allergy Substance Reaction Severity Start Date Concern Status Code Code System PROCHLORPERAZINE go crazy (SNOMED-CT: null) Severe Active 8704 RxNorm ISOSORBIDE MONONITRATE SOB, anxiety (SNOMED-CT: null) Active 25473 RxNorm CLARITHROMYCIN Vomiting (SNOMED-CT: 335035048) Severe Active 67279 RxNorm BENADRYL went crazy (SNOMED-CT: null) Severe Active 793039 RxNorm IMITREX Tachycardia (SNOMED-CT: 6089701) Moderate Active 695842 RxNorm Plan of Treatment No Data Found Encounters Encounter Diagnosis Start Date Code Code Sys tem Migraine, unspecified, not i ntractable, without status migrainosus 04/11/2025 SNOMED-CT Personal Care Team Section
--- OUTSIDE RECORDS SUMMARY | 2025-09-05 21:29 | XMS_ITS ---
Author Organization Unknown Address [address] [place] [address] [phone] Phone Care Team Providers Care Paper Core Machine Operator Name Role Phone COLBY HSU ROBERT Attending Unavailable CARRILLO COATS Primary Unavailable Social History Type Status Start Date End Date Code Code Syst em Smoking History Never smoker (Never Smoked) 240513479 SNOMED CT Sex Female Vital Signs Vital Sign Value Unit [place] Value [place] Unit Date/Time Recent/Initial? Code Code System Body Mass Index 44.01 kg/m2 04/03/2025 22:54 Initial 77144 -5 LOINC Systolic Blood Pressure 176 mm[Hg] 04/03/2025 22:54 Initial 8480- 6 LOINC Diastolic Blood Pressure 81 mm[Hg] 04/03/2025 22:54 Initial 8462- 4 LOINC Body Surface Area 2.45 m2 04/03/2025 22:54 Initial 3140- 1 LOINC Height 170.180 0 cm 67.00 in 04/03/2025 22:54 Initial 8302- 2 LOINC O2 Saturation 95 % 2024 22:54 Initial 04721 -5 LOINC Pulse 82.0 /min 04/03/2025 22:54 Initial 8867- 4 LOINC Respiration 20 /min 04/03/20 22:54 Initial 9279- 1 LOINC Temperature 36.8 Alexandrea 98.2 F 04/03/20 22:54 Initial 8310- 5 LOINC Weight 127.46 kg 281.00 lbs 04/03/2025 22:54 Initial 40496 -7 LOINC Medications Medication Start Date End Date Route Frequency Dose Code Code System Medication Instructions Home Meds Zofran 4MG Oral Tablet 05/03/2025 Unknown ORAL EVERY 6 HOURS 1 TABLET 082421 RxNorm TAKE 1 TABLET ORAL EVERY 6 [...] Code Code System CHRONIC NECK PAIN active 345174290572 7 SNOMED-CT DISORDER OF ROTATOR CUFF active 201231631 SNOMED-CT SPRAIN OF LEFT SHOULDER active 20654950946835521 SNOMED-CT CHRONIC BACK PAIN active 817407734 SN OMED-CT CHRONIC MIGRAINE active 595981597 SNO MED-CT DIABETES active 63083366 SNOMED-CT GASTROPARESES active 509671085 SNOMED -CT ERIKA CELL NEOPLASM active 719670357 SNOMED-CT HYPERTENSION active 16638022 SNOMED- CT DRUG SEEKING BEHAVIOR active 26206864 SNOMED-CT MALINGERING active 83317910 SNOMED-C 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 10/24/2024 resolved 95135151 SNOMED-CT Allergies and Adverse Reactions Allergy Substance Reaction Severity Start Date Concern Status Code Code System PROCHLORPERAZINE go crazy (SNOMED-CT: null) Severe Active 8704 RxNorm ISOSORBIDE MONONITRATE SOB, anxiety (SNOMED-CT: null) Active 93672 RxNorm CLARITHROMYCIN Vomiting (SNOMED-CT: 451652119) Severe Active 49263 RxNorm BENADRYL went crazy (SNOMED-CT: null) Severe Active 205277 RxNorm IMITREX Tachycardia (SNOMED-CT: 2274722) Moderate Active 661222 RxNorm Plan of Treatment No Data Found Encounters Encounter Diagnosis Start Date Code Code Sys tem Migraine, unspecified, not i ntractable, without status migrainosus 04/03/2025 SNOMED-CT Personal Care Team Section
--- OUTSIDE RECORDS SUMMARY | 2025-09-05 21:29 | XMS_ITS ---
Author Organization Unknown Address [address] [place] [phone] Phone Care Team Providers Care Co Founder And Cto Name Role Phone PREMA Kyle Attending Unavailable CARRILLO COATS Primary Unavailable Social History Type Status Start Date End Date Code Code Syst em Smoking History Never smoker (Never Smoked) 766950302 SNOMED CT Sex Female Vital Signs Vital Sign Value Unit [place] [facility] [place] Date/Time Recent/Initial? Code Code System Body Mass Index 42.44 kg/m2 08/27/2025 15:03 Initial 79873 -5 LOINC Systolic Blood Pressure 158 mm[Hg] 08/27/2025 18:05 Most Recent 8480- 6 LOINC Diastolic Blood Pressure 79 mm[Hg] 08/27/2025 18:05 Most Recent 8462- 4 LOINC Systolic Blood Pressure 167 mm[Hg] 08/27/2025 15:03 Initial 8480- 6 LOINC Diastolic Blood Pressure 80 mm[Hg] 08/27/2025 15:03 Initial 8462- 4 LOINC Body Surface Area 2.41 m2 08/27/2025 15:03 Initial 3140- 1 LOINC Height 170.180 0 cm 67.00 in 08/27/2025 15:03 Initial 8302- 2 LOINC O2 Saturation 98 % 2024 18:05 Most Recent 09920 -5 LOINC O2 Saturation 99 % 2024 15:03 Initial 87113 -5 LOINC Pulse 72.0 /min 08/27/2025 18:05 Most Recent 8867- 4 LOINC Pulse 76.0 /min 08/27/2025 15:03 Initial 8867- 4 LOINC Respiration 16 /min 08/27/20 25 18:05 Most Recent 9279- 1 LOINC Respiration 16 /min 08/27/20 15:03 Initial 9279- 1 [facility] Temperature 36.5 Alexandrea 97.7 F 08/27/20 15:03 Initial 8310- 5 [facility] Weight 122.92 kg 271.00 lbs 08/27/2025 15:03 Initial 46113 -7 [facility] Medications Medication Start Date End Date Route Frequency Dose Code Code System Medication Instructions Home Meds Zofran 4MG Oral Tablet 05/03/2025 Unknown ORAL EVERY 6 HOURS 1 TABLET 366673 RxNorm TAKE 1 TABLET ORAL EVERY 6 [...] Code Code System CHRONIC NECK PAIN active 410245764567 7 SNOMED-CT DISORDER OF ROTATOR CUFF active 451082147 SNOMED-CT SPRAIN OF LEFT SHOULDER active 97338154196369751 SNOMED-CT CHRONIC BACK PAIN active 613177555 SN OMED-CT CHRONIC MIGRAINE active 961060209 SNO MED-CT DIABETES active 87174853 SNOMED-CT GASTROPARESES active 694157590 SNOMED -CT ERIKA CELL NEOPLASM active 180766280 SNOMED-CT HYPERTENSION active 17664811 SNOMED- CT DRUG SEEKING BEHAVIOR active 35067690 SNOMED-CT MALINGERING active 60793901 SNOMED-C 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 10/24/2024 resolved 61130248 SNOMED-CT Allergies and Adverse Reactions Allergy Substance Reaction Severity Start Date Concern Status Code Code System PROCHLORPERAZINE go crazy (SNOMED-CT: null) Severe Active 8704 RxNorm ISOSORBIDE MONONITRATE SOB, anxiety (SNOMED-CT: null) Active 40862 RxNorm CLARITHROMYCIN Vomiting (SNOMED-CT: 258739262) Severe Active 23786 RxNorm BENADRYL went crazy (SNOMED-CT: null) Severe Active 251566 RxNorm IMITREX Tachycardia (SNOMED-CT: 6009965) Moderate Active 835001 RxNorm Plan of Treatment No Data Found Encounters Encounter Diagnosis Start Date Code Code Sys tem Type 2 diabetes mellitus wit h diabetic autonomic (poly)neuropathy 08/27/2025 SNOMED-CT Personal Care Team Section
--- OUTSIDE RECORDS SUMMARY | 2025-09-05 21:29 | XMS_ITS ---
Author Organization Unknown Address [address] [place] [phone] Phone Care Team Providers Care Blood Bank Specialist Name Role Phone YRN ZEPEDA Attending Unavailable PINKY Kyle Primary Unavailable Social History Type Status Start Date End Date Code Code Syst em Smoking History Never smoker (Never Smoked) 082673449 SNOMED CT Sex Female Vital Signs Vital Sign Value Unit [place] [facility] Date/Time Recent/Initial? Code Code System Body Mass Index 43.85 kg/m2 12/21/2024 16:30 Initial 75678 -5 LOINC Systolic Blood Pressure 156 mm[Hg] [...] Saturation 96 % 2024 18:20 Most Recent 13479 -5 LOINC O2 Saturation 96 % 2024 16:30 Initial 42720 -5 LOINC Pulse 85.0 /min 12/21/2024 18:20 Most Recent 8867- 4 LOINC Pulse 60.0 /min 12/21/2024 16:30 Initial 8867- 4 LOINC Respiration 20 /min 12/22/19 25 18:20 Most Recent 9279- 1 LOINC Respiration 20 /min 12/22/19 16:30 Initial 9279- 1 [facility] Temperature 36.8 Alexandrea 98.2 F 12/22/19 16:30 Initial 8310- 5 [facility] Weight 127.01 kg 280.00 lbs 12/21/2024 16:30 Initial 16609 -7 [facility] Medications Medication Start Date End Date Route Frequency Dose Code Code System Medication Instructions Home Meds Lidoderm 5% Topical application Patch, Extended Release 11/02/2024 02/28/2025 1 9867050 RxNorm 1 patch daily Zofran 4MG Oral Tablet 05/03/2025 Unknown ORAL EVERY 6 HOURS 1 TABLET 049016 RxNorm TAKE 1 TABLET ORAL EVERY 6 [...] Code Code System CHRONIC NECK PAIN active 859525825888 7 SNOMED-CT DISORDER OF ROTATOR CUFF active 004923922 SNOMED-CT SPRAIN OF LEFT SHOULDER active 66751874747348146 SNOMED-CT CHRONIC BACK PAIN active 625040955 SN OMED-CT CHRONIC MIGRAINE active 969568224 SNO MED-CT DIABETES active 86065117 SNOMED-CT GASTROPARESES active 331371297 SNOMED -CT ERIKA CELL NEOPLASM active 016338660 SNOMED-CT HYPERTENSION active 28856467 SNOMED- CT DRUG SEEKING BEHAVIOR active 37265748 SNOMED-CT MALINGERING active 14445073 SNOMED-C 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 10/24/2024 resolved 85898094 SNOMED-CT Allergies and Adverse Reactions Allergy Substance Reaction Severity Start Date Concern Status Code Code System PROCHLORPERAZINE go crazy (SNOMED-CT: null) Severe Active 8704 RxNorm ISOSORBIDE MONONITRATE SOB, anxiety (SNOMED-CT: null) Active 02088 RxNorm CLARITHROMYCIN Vomiting (SNOMED-CT: 026680467) Severe Active 86031 RxNorm BENADRYL went crazy (SNOMED-CT: null) Severe Active 20340118 RxNorm IMITREX Tachycardia (SNOMED-CT: 2273165) Moderate Active 800735 RxNorm Plan of Treatment No Data Found Encounters Encounter Diagnosis Start Date Code Code Sys tem 12/21/2024 [id number] SNOMED-CT Personal Care Team Section
--- OUTSIDE RECORDS SUMMARY | 2025-09-05 21:29 | XMS_ITS ---
Author Organization Unknown Address [address] [place] [address] [phone] Phone Care Team Providers Care Strategic Planner Name Role Phone CHRISTIANE COUCH Registered Nurse Unavailable PREMA Kyle Attending Unavailable CARRILLO COATS Primary Unavailable Social History Type Status Start Date End Date Code Code Syst em Smoking History Never smoker (Never Smoked) 116995272 SNOMED CT Sex Female Vital Signs Vital Sign Value Unit [place] Value [place] [facility] Date/Time Recent/Initial? Code Code System Body Mass Index 43.85 kg/m2 04/23/2025 18:42 Initial 82352 -5 LOINC Systolic Blood Pressure 143 mm[Hg] [...] Saturation 97 % 2024 20:05 Most Recent 60069 -5 LOINC O2 Saturation 98 % 2024 18:42 Initial 99046 -5 LOINC Pulse 80.0 /min 04/23/2025 20:05 Most Recent 8867- 4 LOINC Pulse 58.0 /min 04/23/2025 18:42 Initial 8867- 4 LOINC Respiration 20 /min 04/23/20 20:05 Most Recent 9279- 1 LOINC Respiration 20 /min 04/23/20 18:42 Initial 9279- 1 [facility] Temperature 36.6 Alexandrea 97.8 F 04/23/20 18:42 Initial 8310- 5 [facility] Weight 127.01 kg 280.00 lbs 04/23/2025 18:42 Initial 39984 -7 [facility] Medications Medication Start Date End Date Route Frequency Dose Code Code System Medication Instructions Home Meds Zofran 4MG Oral Tablet 05/03/2025 Unknown ORAL EVERY 6 HOURS 1 TABLET 487392 RxNorm TAKE 1 TABLET ORAL EVERY 6 [...] Code Code System CHRONIC NECK PAIN active 339270135483 7 SNOMED-CT DISORDER OF ROTATOR CUFF active 521100028 SNOMED-CT SPRAIN OF LEFT SHOULDER active 61169609293049749 SNOMED-CT CHRONIC BACK PAIN active 284945742 SN OMED-CT CHRONIC MIGRAINE active 063536487 SNO MED-CT DIABETES active 44245410 SNOMED-CT GASTROPARESES active 947140378 SNOMED -CT ERIKA CELL NEOPLASM active 157539483 SNOMED-CT HYPERTENSION active 00575627 SNOMED- CT DRUG SEEKING BEHAVIOR active 27135724 SNOMED-CT MALINGERING active 23693710 SNOMED-C 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 10/24/2024 resolved 60493443 SNOMED-CT Allergies and Adverse Reactions Allergy Substance Reaction Severity Start Date Concern Status Code Code System PROCHLORPERAZINE go crazy (SNOMED-CT: null) Severe Active 8704 RxNorm ISOSORBIDE MONONITRATE SOB, anxiety (SNOMED-CT: null) Active 95829 RxNorm CLARITHROMYCIN Vomiting (SNOMED-CT: 513612776) Severe Active 00362 RxNorm BENADRYL went crazy (SNOMED-CT: null) Severe Active 20340118 RxNorm IMITREX Tachycardia (SNOMED-CT: 6269316) Moderate Active 471490 RxNorm Plan of Treatment No Data Found Encounters Encounter Diagnosis Start Date Code Code Sys tem Migraine, unspecified, not i ntractable, without status migrainosus 04/23/2025 SNOMED-CT Personal Care Team Section
--- OUTSIDE RECORDS SUMMARY | 2025-09-05 21:29 | XMS_ITS | Clinical Summary ---
Author Organization [facility] Virtual Care Address [address] [place] [phone] Phone Care Team Providers Care Baler Name Role Phone Brissa Tijerina MD Primary Care Provider [phone] Allergies Active Allergy Reactions Criticality Noted Date [...] butalbital-acetami nophen-caff (ESGIC) 50-325-40 mg per capsule Active amLODIPine (NORVASC) 5 mg tablet Take 5 mg by mouth. Active AZURETTE, 28, 0.15-0.02 mgx21 /0.01 mg x 5 per tablet 7 Active doxepin (SINEquan) 25 mg capsule 7 Active glipiZIDE (GLUCOTROL) 10 mg tabletIndications: type 2 diabetes mellitus 7 Active metoprolol XL [...] capsule 0 Active cyclobenzaprine (FLEXERIL) 10 mg tabletIndications: Muscle Spasm Take 1 tablet (10 mg total) by mouth 3 (three) times a day as needed for muscle spasms 21 tablet 0 Active HYDROcodone-acetam inophen (NORCO) 5-325 mg per tabletIndications: Pain Take 1 tablet by mouth every 6 (six) hours as needed for pain Do not exceed 8 tablets/day. 20 tablet 0 Active ondansetron ODT (ZOFRAN-ODT) 4 mg disintegrating tablet Take 1 tablet (4 mg total) by mouth every 8 (eight) hours as needed for nausea 20 tablet 5 Active HYDROcodone-acetam inophen (NORCO) 5-325 mg per tabletIndications: Pain Take 1 tablet by mouth every 6 (six) hours as needed for pain for up to 12 doses 12 tablet 5 Active loperamide (IMODIUM) 2 mg capsule Take 1 capsule (2 mg total) by mouth 4 (four) times a day as needed for diarrhea 12 capsule 5 Active ondansetron (ZOFRAN) 4 mg tablet Take 1 tablet (4 mg total) by mouth every 6 (six) hours as needed for nausea or vomiting 12 tablet 5 Active dicyclomine (BENTYL) 20 mg tablet Take 1 tablet (20 mg total) by mouth every 6 (six) hours as needed (abdominal cramping) 12 tablet 5 Active metoclopramide (REGLAN) 10 mg tablet Take 1 tablet (10 mg total) by mouth every 6 (six) hours 10 tablet 5 Active ondansetron (ZOFRAN) 4 mg tablet Take 1 tablet (4 mg total) by mouth every 6 (six) hours 12 tablet 5 Active lidocaine viscous (XYLOCAINE) 2 % solution Apply 10 mL to the mouth or throat every 6 (six) hours as needed (For heartburn) for up to 5 days 100 mL 5 08/10/20 25 Active Problems Problem Noted Date Diagnosed Date Acute exacerbation of chronic low back pain 11/13 Aphthous ulcer of tongue 12/05/2017 Migraine without aura and wi thout status migrainosus, not intractable 08/26/2017 Encounters Date Type Department Care Team Description 08/25/2025 9:34 AM [facility] - 08/25/2025 11:46 AM [facility] Emergency Department [address] [place] [id number] Jose Martin Verduzco MD Malaise (Primary Dx); Chronic pain syndrome Discharge Disposition: Discharge to home or self care 08/15/2025 8:03 PM [facility] - 08/15/2025 10:23 PM [facility] Emergency Department [address] [place] [id number] Abdominal pain, unspecified abdominal location (Primary Dx) Discharge Disposition: Discharge to home or self care 08/05/2025 6:03 PM [facility] - 08/05/2025 9:57 PM [facility] Emergency Department [address] [place] [phone] Abdominal pain, unspecified abdominal location (Primary Dx) Discharge Disposition: Discharge to home or self care 07/31/2025 5:53 PM [facility] - 07/31/2025 9:13 PM SOFTWARE DEVELOPMENT PROJECT MANAGER Emergency [facility] Emergency Department [address] [place] [address] Nausea and vomiting, unspecified vomiting type (Primary Dx); Abdominal pain, unspecified abdominal location Discharge Disposition: Discharge to home or self care 07/23/2025 4:26 PM SOFTWARE DEVELOPMENT PROJECT MANAGER - 07/23/2025 7:22 PM [facility] Emergency [facility] Emergency Department [address] [place] [address] Abdominal pain, unspecified abdominal location (Primary Dx); Vomiting and diarrhea Discharge Disposition: Discharge to home or self care 07/13/2025 6:23 AM CDT - 07/13/2025 8:59 AM T Emergency [facility] Emergency Department [address] [place] [address] Yves Andre MD Chest pain, unspecified type (Primary Dx) Discharge Disposition: Discharge to home or self care 07/07/2025 12:23 PM CDT - 07/07/2025 3:20 PM T Emergency [facility] Emergency Department [address] [place] [address] Abdominal pain, unspecified abdominal location (Primary Dx); Diarrhea, unspecified type Discharge Disposition: Discharge to home or self care 06/25/2025 9:29 PM CDT - 06/25/2025 11:28 PM T Emergency [facility] Emergency Department [address] [place] [address] Rox Amos MD Right lower quadrant abdominal pain (Primary Dx) Discharge Disposition: Discharge to home or self care from Last 3 Months Surgical History Surgery [...] making you feel afraid or unsafe? Denies 08/25/2025 Comments No Sex and Gender Information Value Date Recorded Sex Assigned at Not on file Legal Sex Female 2:45 AM SOFTWARE DEVELOPMENT PROJECT MANAGER Gender Identity Not on file Sexual Orientation Not on file Last Filed Vital Signs Vital Sign Reading Time Taken Comments Blood Pressure 142/79 08/25/2025 11:20 AM SOFTWARE DEVELOPMENT PROJECT MANAGER Pulse 75 08/25/2025 11:20 AM SOFTWARE DEVELOPMENT PROJECT MANAGER Temperature 36.6 C (97.9 F) 08/25/2025 9:41 AM SOFTWARE DEVELOPMENT PROJECT MANAGER Respiratory Rate 16 08/25/2025 11:20 AM SOFTWARE DEVELOPMENT PROJECT MANAGER Oxygen Saturation 100% 08/25/2025 11:20 AM SOFTWARE DEVELOPMENT PROJECT MANAGER Inhaled Oxygen Concentration - - Weight 123.4 kg (272 lb) 08/25/2025 9:41 AM SOFTWARE DEVELOPMENT PROJECT MANAGER Height 170.2 cm (5' 7) 08/25/2025 9:41 AM SOFTWARE DEVELOPMENT PROJECT MANAGER Body Mass Index 42.6 08/25/2025 9:41 AM SOFTWARE DEVELOPMENT PROJECT MANAGER Plan of Treatment Health Maintenance Due Date [...] Procedure Name Priority Date/Time Associated Diagnosis Comments URINALYSIS, MICROSCOPIC ONLY STAT 08/25/2025 11:32 AM SOFTWARE DEVELOPMENT PROJECT MANAGER URINE CULTURE STAT 08/25/2025 11:32 AM SOFTWARE DEVELOPMENT PROJECT MANAGER URINALYSIS AND REFLEX TO MICROSCOPIC AND CULTURE STAT 08/25/2025 11:32 AM SOFTWARE DEVELOPMENT PROJECT MANAGER EGFR STAT 08/25/2025 9:54 AM SOFTWARE DEVELOPMENT PROJECT MANAGER DIFFERENTIAL AUTO STAT 08/25/2025 9:5 4 AM SOFTWARE DEVELOPMENT PROJECT MANAGER LIPASE STAT 08/25/2025 9:54 AM SOFTWARE DEVELOPMENT PROJECT MANAGER COMPREHENSIVE METABOLIC PANEL STAT 08/25/2025 9:54 AM SOFTWARE DEVELOPMENT PROJECT MANAGER CBC WITH AUTO DIFFERENTIAL STAT 08/25/2025 9:54 AM SOFTWARE DEVELOPMENT PROJECT MANAGER POCT HCG, URINE Routine 08/15/2025 8:12 PM SOFTWARE DEVELOPMENT PROJECT MANAGER URINALYSIS, MICROSCOPIC ONLY STAT 08/15/2025 8:12 PM SOFTWARE DEVELOPMENT PROJECT MANAGER URINALYSIS AND REFLEX TO MICROSCOPIC AND CULTURE STAT 08/15/2025 8:12 PM SOFTWARE DEVELOPMENT PROJECT MANAGER EGFR STAT 08/15/2025 7:29 PM SOFTWARE DEVELOPMENT PROJECT MANAGER DIFFERENTIAL AUTO STAT 08/15/2025 7:2 9 PM SOFTWARE DEVELOPMENT PROJECT MANAGER LIPASE STAT 08/15/2025 7:29 PM SOFTWARE DEVELOPMENT PROJECT MANAGER COMPREHENSIVE METABOLIC PANEL STAT 08/15/2025 7:29 PM SOFTWARE DEVELOPMENT PROJECT MANAGER CBC WITH AUTO DIFFERENTIAL STAT 08/15/2025 7:29 PM SOFTWARE DEVELOPMENT PROJECT MANAGER CT ABDOMEN PELVIS W CONTRAST ED 08/05/2025 9:14 PM SOFTWARE DEVELOPMENT PROJECT MANAGER EGFR STAT 08/05/2025 6:06 PM SOFTWARE DEVELOPMENT PROJECT MANAGER DIFFERENTIAL AUTO STAT 08/05/2025 6:0 6 PM SOFTWARE DEVELOPMENT PROJECT MANAGER LIPASE STAT 08/05/2025 6:06 PM SOFTWARE DEVELOPMENT PROJECT MANAGER COMPREHENSIVE METABOLIC PANEL STAT 08/05/2025 6:06 PM SOFTWARE DEVELOPMENT PROJECT MANAGER CBC WITH AUTO DIFFERENTIAL STAT 08/05/2025 6:06 PM SOFTWARE DEVELOPMENT PROJECT MANAGER POCT GLUCOSE DEVICE Routine 07/31/2025 8 :42 PM SOFTWARE DEVELOPMENT PROJECT MANAGER SEPSIS LACTATE WITH REFLEX STAT 07/31/2025 8:40 PM SOFTWARE DEVELOPMENT PROJECT MANAGER CT ABDOMEN PELVIS W CONTRAST ED 07/31/2025 7:11 PM SOFTWARE DEVELOPMENT PROJECT MANAGER URINALYSIS, MICROSCOPIC ONLY STAT 07/31/2025 7:04 PM SOFTWARE DEVELOPMENT PROJECT MANAGER URINALYSIS AND REFLEX TO MICROSCOPIC AND CULTURE STAT 07/31/2025 7:04 PM SOFTWARE DEVELOPMENT PROJECT MANAGER EGFR STAT 07/31/2025 5:15 PM SOFTWARE DEVELOPMENT PROJECT MANAGER DIFFERENTIAL AUTO STAT 07/31/2025 5:1 5 PM SOFTWARE DEVELOPMENT PROJECT MANAGER LIPASE STAT 07/31/2025 5:15 PM SOFTWARE DEVELOPMENT PROJECT MANAGER COMPREHENSIVE METABOLIC PANEL STAT 07/31/2025 5:15 PM SOFTWARE DEVELOPMENT PROJECT MANAGER CBC WITH AUTO DIFFERENTIAL STAT 07/31/2025 5:15 PM SOFTWARE DEVELOPMENT PROJECT MANAGER XR ELBOW RIGHT 2 OR MORE VIEWS ED 07/23/2025 5:44 PM SOFTWARE DEVELOPMENT PROJECT MANAGER URINALYSIS, MICROSCOPIC ONLY STAT 07/23/2025 5:19 PM SOFTWARE DEVELOPMENT PROJECT MANAGER URINALYSIS AND REFLEX TO MICROSCOPIC AND CULTURE STAT 07/23/2025 5:19 PM SOFTWARE DEVELOPMENT PROJECT MANAGER POCT GLUCOSE DEVICE Routine 07/23/2025 5 :18 PM SOFTWARE DEVELOPMENT PROJECT MANAGER EGFR STAT 07/23/2025 3:51 PM SOFTWARE DEVELOPMENT PROJECT MANAGER DIFFERENTIAL AUTO STAT 07/23/2025 3:5 1 PM SOFTWARE DEVELOPMENT PROJECT MANAGER LIPASE STAT 07/23/2025 3:51 PM SOFTWARE DEVELOPMENT PROJECT MANAGER COMPREHENSIVE METABOLIC PANEL STAT 07/23/2025 3:51 PM SOFTWARE DEVELOPMENT PROJECT MANAGER CBC WITH AUTO DIFFERENTIAL STAT 07/23/2025 3:51 PM SOFTWARE DEVELOPMENT PROJECT MANAGER TROPONIN T HIGH-SENSITIVITY 2-HOUR Timed 07/13/2025 8:01 [...] Urinalysis reflex to microscopic and culture Urine (08/25/2025 11:32 AM SOFTWARE DEVELOPMENT PROJECT MANAGER) Color, ur Yellow Yellow Clarity, ur Turbid(A) Clear [facility] ([place]) Specific gravity, ur 1.026 1.003 - 1.030 [facility] ([place]) pH, [...] for uric acid stone formation. Source: [facility] [employer] Current Interpretive Data was last revised on 2017 Protein, ur ql 1+(A) Negative [facility] ([place]) Glucose, ur ql 1+(A) Negative [facility] ([place]) Ketones, ur Negative Negative [facility] ([place]) Bilirubin, ur Negative Negative [facility] ([place]) Blood, ur Negative Negative [facility] ([place]) Urobilinogen, ur 2.0(A) <2.0 mg/dL [facility] ([place]) Nitrite, ur Negative Negative [facility] ([place]) Leukocyte esterase, ur 4+(A) Negative [facility] ([place]) UA reflex comment Reflex to microscopic UA will be performed. [facility] ([place]) Urine 08/25/2025 11:3 2 AM SOFTWARE DEVELOPMENT PROJECT MANAGER 08/25/2025 11:34 AM SOFTWARE DEVELOPMENT PROJECT MANAGER us Jose Martin Verduzco MD LAB MICROBIOLOGY - GENERAL ORDERABLES Final Result Performing Organization Address [facility] de Phone Number [facility] ([place]) [address] [facility] [place] [address] * (ABNORMAL) Urinalysis, microscopic only (08/25/2025 11:32 AM SOFTWARE DEVELOPMENT PROJECT MANAGER) WBC, ur 21-50(A) 0 - 5 /HPF RBC, ur 0-2 0 - 2 /HPF [facility] ([place]) Epithelial cells, squamous, ur 6-10(A) 0 - 5 /HPF [facility] ([place]) Bacteria, ur Trace(A) [facility] ([place]) Mucous, ur Present(A) [facility] ([place]) Culture Reflex Comment Reflex to urine culture will be performed. [facility] ([place]) Urine 08/25/2025 11:3 2 AM SOFTWARE DEVELOPMENT PROJECT MANAGER 08/25/2025 11:34 AM SOFTWARE DEVELOPMENT PROJECT MANAGER us Jose Martin Verduzco MD LAB URINE ORDERABLES Final Result Performing Organization Address [facility] Co de Phone Number [facility] ([place]) 1 [facility] [place] [address] * Urine culture Urine (08/25/2025 11:32 AM SOFTWARE DEVELOPMENT PROJECT MANAGER) Report Final Report: Less than 100,000 colonies/mL (clinically insignificant growth based on current clinical standards) Comment:Testing performed by : [facility], [address] [facility], [place]., [address] Organism (CLINICALLY INSIGNIFICANT GROWTH [facility] ([place]) Urine 08/25/2025 11:3 2 AM SOFTWARE DEVELOPMENT PROJECT MANAGER 08/25/2025 2:58 PM SOFTWARE DEVELOPMENT PROJECT MANAGER Narrative [facility] ALVARE[facility]) - 08/27/2025 3:03 PM SOFTWARE DEVELOPMENT PROJECT MANAGER Urine culture reflexed based upon urinalysis results. Testing performed by [facility] ([phone]) us Jose Martin Verduzco MD LAB MICROBIOLOGY - GENERAL ORDERABLES Final Result [facility] ALVAREZ) 1 [facility] Department [place] [address] * eGFR (08/25/2025 9:54 AM SOFTWARE DEVELOPMENT PROJECT MANAGER) eGFR 90 >=60 mL/min/1. 73 m2 Comment: Interpretive Data [...] interpretive data was last reviewed 2021. Blood 08/25/2025 9:54 AM SOFTWARE DEVELOPMENT PROJECT MANAGER 08/25/2025 9:59 AM SOFTWARE DEVELOPMENT PROJECT MANAGER us Jose Martin Verduzco MD LAB BLOOD ORDERABLES Final Result [facility] ([place]) 1 [facility] Department [place] [address] * Differential, auto (08/25/2025 9:54 AM SOFTWARE DEVELOPMENT PROJECT MANAGER) Neutrophil abs 4.00 1.50 - 6.50 K/cumm Imm gran abs 0.02 0.00 - 0.10 K/cumm [facility] ([place]) Lymphocyte abs 1.57 0.80 - 3.30 K/cumm [facility] ([place]) Monocyte abs 0.47 0.20 - 0.80 K/cumm [facility] ([place]) Eosinophil abs 0.28 0.00 - 0.50 K/cumm [facility] ([place]) Basophil abs 0.05 0.00 - 0.10 K/cumm [facility] ([place]) Neutrophil pct 62.5 % [facility] ([place]) Comment: Interpretive [...] was last revised on 2017. Lymphocyte pct 24.6 % [facility] ([place]) Comment: Interpretive Data Percent cell count reference ranges are not reported, since discordance with absolute values may lead to misinterpretation of CBC data. Current Interpretive Data was last revised on 2017. Monocyte pct 7.4 % [facility] ([place]) Comment: Interpretive Data Percent cell count reference ranges are not reported, since discordance with absolute values may lead to misinterpretation of CBC data. Current Interpretive Data was last revised on 2017. Eosinophil pct 4.4 % [facility] ([place]) Comment: Interpretive [...] Data was last revised on 2017. Blood 08/25/2025 9:54 AM SOFTWARE DEVELOPMENT PROJECT MANAGER 08/25/2025 9:59 AM SOFTWARE DEVELOPMENT PROJECT MANAGER us Jose Martin Vedruzco MD LAB BLOOD ORDERABLES Final Result [facility] ([place]) 1 [facility] [employer] [place] [address] * (ABNORMAL) CBC with auto differential (08/25/2025 9:54 AM SOFTWARE DEVELOPMENT PROJECT MANAGER) WBC 6.39 3.80 - 9.90 K/cumm Hgb 10.9(L) 11.9 - 15.5 g/dL [facility] ([place]) Hct 34.7(L) 35.6 - 45.5 % [facility] ([place]) Plt 246 150 - 400 K/cumm [facility] ([place]) MPV 9.5 9.1 - 12.3 fL [facility] ([place]) RBC 4.19 3.90 - 5.20 M/cumm [facility] ([place]) MCV 82.8 81.3 - 96.4 fL [facility] ([place]) MCH 26.0(L) 27.1 - 33.3 pg [facility] ([place]) MCHC 31.4(L) 32.3 - 35.7 g/dL [facility] ([place]) RDW CV 13.2 11.1 - 14.9 % [facility] ([place]) RDW SD 39.5 35.7 - 48.1 fL [facility] ([place]) NRBC abs 0.00 0.00 - 0.01 K/cumm [facility] ([place]) Blood Venous blood specimen / Unknown 08/25/2025 9:54 AM SOFTWARE DEVELOPMENT PROJECT MANAGER 08/25/2025 9:59 AM SOFTWARE DEVELOPMENT PROJECT MANAGER Jose Martin Verduzco MD LAB BLOOD ORDERABLES Final Result Performing Organization Address City/[facility]/ZIP Co de Phone Number [facility] ([place]) [address] Department [place] [address] * Lipase (08/25/2025 9:54 AM SOFTWARE DEVELOPMENT PROJECT MANAGER) Lipase 23 10 - 99 Units/L Blood Venous blood specimen / Unknown 08/25/2025 9:54 AM SOFTWARE DEVELOPMENT PROJECT MANAGER 08/25/2025 9:59 AM SOFTWARE DEVELOPMENT PROJECT MANAGER Jose Martin Verduzco MD LAB BLOOD ORDERABLES Final Result [facility] ([place]) 1 [facility] Department [place] [address] * (ABNORMAL) Comprehensive metabolic panel (08/25/2025 9:54 AM SOFTWARE DEVELOPMENT PROJECT MANAGER) Sodium 138 135 - 145 mmol/L Potassium, pl 4.5 3.3 - 4.9 mmol/L [facility] ([place]) Chloride 104 97 - 110 mmol/L [facility] ([place]) CO2 24 22 - 32 mmol/L [facility] ([place]) Anion gap 10 2 - 15 mmol/L [facility] ([place]) BUN 14 6 - 25 mg/dL [facility] ([place]) Creatinine 0.78 0.60 - 1.10 mg/dL [facility] ([place]) Glucose 235(H) 70 - 199 mg/dL [facility] ([place]) [...] interpretive data was last revised 2022. Calcium 9.1 8.5 - 10.3 mg/dL [facility] ([place]) Bilirubin, total 0.5 0.1 - 1.2 mg/dL [facility] ([place]) Protein, pl 7.1 6.5 - 8.5 g/dL [facility] ([place]) Albumin 3.8 3.5 - 5.0 g/dL [facility] ([place]) Alk phos 138(H) 40 - 130 Units/L [facility] ([place]) ALT 19 7 - 45 Units/L [facility] ([place]) AST 35 10 - 45 Units/L [facility] ([place]) Blood 08/25/2025 9:54 AM SOFTWARE DEVELOPMENT PROJECT MANAGER 08/25/2025 9:59 AM SOFTWARE DEVELOPMENT PROJECT MANAGER us Jose Martin Verduzco MD LAB BLOOD ORDERABLES Final Result [facility] ([place] 1 [facility] Department [place] [address] * (ABNORMAL) Urinalysis reflex to microscopic and culture Urine (08/15/2025 8:12 PM SOFTWARE DEVELOPMENT PROJECT MANAGER) Color, ur Yellow Yellow Clarity, ur Clear [...] tendency for uric acid stone formation. Source: [facility] Laboratories Current Interpretive Data was last revised [...] [facility] ([place]) Urine 08/15/2025 8:12 PM SOFTWARE DEVELOPMENT PROJECT MANAGER 08/15/2025 8:21 PM SOFTWARE DEVELOPMENT PROJECT MANAGER us Emely Keys NP LAB MICROBIOLOGY - GENERAL OR DERABLES Final Result [facility] ([place]) 1 [facility] [address] * (ABNORMAL) Urinalysis, microscopic only (08/15/2025 8:12 PM SOFTWARE DEVELOPMENT PROJECT MANAGER) Pathologist [facility] [place] WBC, ur 0-5 0 - 5 /HPF RBC, ur 0-2 0 - 2 /HPF [facility] ([place]) Epithelial cells, squamous, ur 6-10(A) 0 - 5 /HPF [facility] ([place]) Bacteria, ur Trace(A) [facility] ([place]) Mucous, ur Present(A) [facility] ([place]) Hyaline casts, ur 1-5 0 - 10 /LPF [facility] ([place]) Culture Reflex Comment Reflex conditions for urine culture (WBC >10) not met. [facility] ([place]) Urine 08/15/2025 8:12 PM SOFTWARE DEVELOPMENT PROJECT MANAGER 08/15/2025 8:21 PM SOFTWARE DEVELOPMENT PROJECT MANAGER us Emely Keys NP LAB URINE ORDERABLES Final Re sult Performing Organization Address City/[facility]/ZIP Co de Phone Number [facility] ([place]) [address] [place] [address] * POCT hCG, urine (08/15/2025 8:12 PM SOFTWARE DEVELOPMENT PROJECT MANAGER) Pathologist [facility] [place] HCG, ur, POC Negative Negative Lot Number [id number] QC Backgroud Clear Acceptable QC Control Line Acceptable Urine 08/15/2025 8:12 PM SOFTWARE DEVELOPMENT PROJECT MANAGER us Emely Keys MUSIC EDUCATOR POINT OF CARE TEST ORDERABLES Final Result * eGFR (08/15/2025 7:29 PM SOFTWARE DEVELOPMENT PROJECT MANAGER) Pathologist [facility] eGFR 77 >=60 mL/min/1. 73 m2 Comment: [...] last reviewed 2021. Blood 08/15/2025 7:29 PM SOFTWARE DEVELOPMENT PROJECT MANAGER 08/15/2025 7:34 PM SOFTWARE DEVELOPMENT PROJECT MANAGER us Emely Keys NP LAB BLOOD ORDERABLES Final Re sult [facility] ([place]) 1 [facility] Department [place] [address] * Differential, auto (08/15/2025 7:29 PM SOFTWARE DEVELOPMENT PROJECT MANAGER) Neutrophil abs 5.73 1.50 - 6.50 K/cumm [...] Neutrophil pct 65.3 % [facility] ([place]) Comment: Interpretive Data Percent cell count reference [...] revised on 2017. Blood 08/15/2025 7:29 PM SOFTWARE DEVELOPMENT PROJECT MANAGER 08/15/2025 7:34 PM SOFTWARE DEVELOPMENT PROJECT MANAGER us Emely Keys MUSIC EDUCATOR LAB BLOOD ORDERABLES Final Re sult [facility] ([place]) 1 [facility] Department [place] [address] * (ABNORMAL) CBC with auto differential (08/15/2025 7:29 PM SOFTWARE DEVELOPMENT PROJECT MANAGER) WBC 8.78 3.80 - 9.90 K/cumm Hgb 11.3(L) 11.9 - 15.5 g/dL [facility] ([place]) Hct 35.9 35.6 - 45.5 % [facility] ([place]) Plt 240 150 - 400 K/cumm [facility] MPV 9.1 9.1 - 12.3 fL [facility] ([place] RBC 4.34 3.90 - 5.20 M/cumm [facility] ([place] MCV 82.7 81.3 - 96.4 fL [facility] ([place]) MCH 26.0(L) 27.1 - 33.3 pg [facility] ([place]) MCHC 31.5(L) 32.3 - 35.7 g/dL [facility] ([place]) RDW CV 13.0 11.1 - 14.9 % [facility] ([place]) RDW SD 39.3 35.7 - 48.1 fL [facility] ([place]) NRBC abs 0.00 0.00 - 0.01 K/cumm [facility] ([place]) Blood Venous blood specimen / Unknown 08/15/2025 7:29 PM SOFTWARE DEVELOPMENT PROJECT MANAGER 08/15/2025 7:34 PM SOFTWARE DEVELOPMENT PROJECT MANAGER Emely Keys MUSIC EDUCATOR LAB BLOOD ORDERABLES Final Re sult [facility] ([place] 1 [facility] [place] [address] * Lipase (08/15/2025 7:29 PM SOFTWARE DEVELOPMENT PROJECT MANAGER) Pathologist [facility] Lipase 22 10 - 99 Units/L Blood Venous blood specimen / Unknown 08/15/2025 7:29 PM SOFTWARE DEVELOPMENT PROJECT MANAGER 08/15/2025 7:34 PM SOFTWARE DEVELOPMENT PROJECT MANAGER Emely Keys MUSIC EDUCATOR LAB BLOOD ORDERABLES Final Re sult [facility] ([place]) 1 [facility] [place] [address] * (ABNORMAL) Comprehensive metabolic panel (08/15/2025 7:29 PM SOFTWARE DEVELOPMENT PROJECT MANAGER) Sodium 139 135 - 145 mmol/L Potassium, pl 4.4 3.3 - 4.9 mmol/L [facility] ([place]) Chloride 105 97 - 110 mmol/L [facility] ([place]) CO2 25 22 - 32 mmol/L [facility] ([place]) Anion gap 9 2 - 15 mmol/L [facility] ([place]) BUN 10 6 - 25 mg/dL [facility] ([place]) Creatinine 0.89 0.60 - 1.10 mg/dL [facility] ([place]) Glucose 119 70 - 199 mg/dL [facility] ([place]) [...] [facility] ([place]) Blood 08/15/2025 7:29 PM SOFTWARE DEVELOPMENT PROJECT MANAGER 08/15/2025 7:34 PM SOFTWARE DEVELOPMENT PROJECT MANAGER us Emely Keys NP LAB BLOOD ORDERABLES Final Re sult [facility] ([place]) 1 [facility] Department [place] [address] * CT Abdomen Pelvis W Contrast (08/05/2025 9:14 PM SOFTWARE DEVELOPMENT PROJECT MANAGER) Anatomical Region Laterality Modality Body N/A Computed Tomogra phy 08/05/2025 9:21 PM SOFTWARE DEVELOPMENT PROJECT MANAGER Impressions 08/05/2025 9:21 PM SOFTWARE DEVELOPMENT PROJECT MANAGER 1. No acute intra-abdominal pathology. Electronically signed by: Kal Clark M.D., MPH Narrative 08/05/2025 9:21 PM SOFTWARE DEVELOPMENT PROJECT MANAGER EXAMINATION: CT ABDOMEN PELVIS W CONTRAST TECHNIQUE: [...] Kal Clark M.D., MPH Emely Keys NP [facility] PROCEDURES Final Resul t * eGFR (08/05/2025 6:06 PM SOFTWARE DEVELOPMENT PROJECT MANAGER) eGFR >90 >=60 mL/min/1. 73 m2 Comment: [...] last reviewed 2021. Blood 08/05/2025 6:06 PM SOFTWARE DEVELOPMENT PROJECT MANAGER 08/05/2025 6:14 PM SOFTWARE DEVELOPMENT PROJECT MANAGER us Emely Keys NP LAB BLOOD ORDERABLES Final Re sult [facility] ([place]) 1 [facility] Department [place] [address] * Differential, auto (08/05/2025 6:06 PM SOFTWARE DEVELOPMENT PROJECT MANAGER) Neutrophil abs 5.21 1.50 - 6.50 K/cumm [...] revised on 2017. Monocyte pct 9.5 % [facility] ([place]) Comment: Interpretive Data [...] revised on 2017. Basophil pct 0.8 % [facility] ([place]) Comment: Interpretive Data Percent cell count reference ranges are not reported, since discordance with absolute values may lead to misinterpretation of CBC data. Current Interpretive Data was last revised on 2017. Blood 08/05/2025 6:06 PM SOFTWARE DEVELOPMENT PROJECT MANAGER 08/05/2025 6:14 PM SOFTWARE DEVELOPMENT PROJECT MANAGER us Emely Keys NP LAB BLOOD ORDERABLES Final Re sult [facility] ([place]) 1 [facility] Department [place] [address] * (ABNORMAL) CBC with auto differential (08/05/2025 6:06 PM SOFTWARE DEVELOPMENT PROJECT MANAGER) WBC 8.33 3.80 - 9.90 K/cumm Hgb 11.0(L) 11.9 - 15.5 g/dL [facility] ([place]) Hct 34.5(L) 35.6 - 45.5 % [facility] ([place]) Plt 264 150 - 400 K/cumm [facility] ([place]) MPV 9.3 9.1 - 12.3 fL [facility] [...] NRBC abs 0.00 0.00 - 0.01 K/cumm [facility] Blood 08/05/2025 6:06 PM SOFTWARE DEVELOPMENT PROJECT MANAGER 08/05/2025 6:14 PM SOFTWARE DEVELOPMENT PROJECT MANAGER Emely Keys MUSIC EDUCATOR LAB BLOOD ORDERABLES Final Re sult Performing Organization Address City/[facility]/ZIP Co de Phone Number [facility] ([place]) 1 [facility] [place] [employer] [place] [address] * Lipase (08/05/2025 6:06 PM SOFTWARE DEVELOPMENT PROJECT MANAGER) Pathologist [facility] [place] Lipase 24 10 - 99 Units/L Blood 08/05/2025 6:06 PM SOFTWARE DEVELOPMENT PROJECT MANAGER 08/05/2025 6:14 PM SOFTWARE DEVELOPMENT PROJECT MANAGER Emely Keys MUSIC EDUCATOR LAB BLOOD ORDERABLES Final Re sult Performing Organization Address City/[facility]/ZIP Co de Phone Number [facility] ([place]) 1 [facility] [address] * (ABNORMAL) Comprehensive metabolic panel (08/05/2025 6:06 PM SOFTWARE DEVELOPMENT PROJECT MANAGER) Sodium 137 135 - 145 mmol/L Potassium, pl 4.4 3.3 - 4.9 mmol/L [facility] ([place]) Chloride 104 97 - 110 mmol/L [facility] ([place]) CO2 24 22 - 32 mmol/L [facility] ([place]) Anion gap 9 2 - 15 mmol/L [facility] ([place]) BUN 14 6 - 25 mg/dL [facility] ([place]) Creatinine 0.74 0.60 - 1.10 mg/dL [facility] ([place]) Glucose 116 70 - 199 mg/dL [facility] ([place]) [...] [facility] ([place]) Blood 08/05/2025 6:06 PM SOFTWARE DEVELOPMENT PROJECT MANAGER 08/05/2025 6:14 PM SOFTWARE DEVELOPMENT PROJECT MANAGER us Emely Keys NP LAB BLOOD ORDERABLES Final Re sult [facility] ([place]) 1 [facility] Department of Laboratories [place], [place] [id number] * POCT glucose (07/31/2025 8:42 PM SOFTWARE DEVELOPMENT PROJECT MANAGER) Glucose, POC 96 70 - 199 mg/dL Blood 07/31/2025 8:42 PM SOFTWARE DEVELOPMENT PROJECT MANAGER 07/31/2025 8:42 PM SOFTWARE DEVELOPMENT PROJECT MANAGER us Notinfile Unknown LAB POCT ORDERABLES - DEVICE F inal Result [facility] (NOVELTY) 1 [facility] Department [place] [address] * Sepsis Lactate w/ Reflex (07/31/2025 8:40 PM SOFTWARE DEVELOPMENT PROJECT MANAGER) Sepsis Lactate 0.7 0.7 - 2.0 mmol/L Blood 07/31/2025 8:40 PM SOFTWARE DEVELOPMENT PROJECT MANAGER 07/31/2025 8:44 PM SOFTWARE DEVELOPMENT PROJECT MANAGER Kathi LI LAB BLOOD ORDERABLES Final Resu lt Performing Organization Address [facility] Co de Phone Number [facility] (NOVELTY) 1 [facility] [place] [address] * CT Abdomen Pelvis W Contrast (07/31/2025 7:11 PM SOFTWARE DEVELOPMENT PROJECT MANAGER) Anatomical Region Laterality Modality Body N/A Computed Tomogra phy 07/31/2025 7:28 PM SOFTWARE DEVELOPMENT PROJECT MANAGER Impressions 07/31/2025 7:28 PM SOFTWARE DEVELOPMENT PROJECT MANAGER 1. No acute inflammatory change of the [...] Ghulam Ahmadi M.D. Narrative 07/31/2025 7:28 PM SOFTWARE DEVELOPMENT PROJECT MANAGER EXAMINATION: CT ABDOMEN PELVIS W CONTRAST HISTORY: [...] by: Ghulam Ahmadi M.D. Rox Amos MD IM CT PROCEDURES F inal Result * (ABNORMAL) Urinalysis reflex to microscopic and culture Urine (07/31/2025 7:04 PM SOFTWARE DEVELOPMENT PROJECT MANAGER) Color, ur Yellow Yellow Clarity, ur Clear Clear [facility] ([place]IS) Specific gravity, ur 1.008 1.003 - 1.030 [facility] ([place]) pH, urine 6.5 [facility] ([place]) Comment: Interpretive Data U rine pH is affected by diet, medications, systemic acid-base disturbances, and renal tubular function. pH may affect urinary stone formation. For example, urine pH below 6.0 may help reduce the tendency for calcium phosphate stones and pH greater than 6.0 may reduce the tendency for uric acid stone formation. Source: [facility] Current Interpretive Data was last revised [...] to microscopic UA will be performed. [facility] ([place]) Urine 07/31/2025 7:04 PM SOFTWARE DEVELOPMENT PROJECT MANAGER 07/31/2025 7:17 PM SOFTWARE DEVELOPMENT PROJECT MANAGER Rox Aoms MD LAB MICROBIOLOGY - GENERAL ORDERABLES Final Result Performing Organization Address [facility] de Phone Number [facility] ([place]) 1 [facility] Department [place] [address] * (ABNORMAL) Urinalysis, microscopic only (07/31/2025 7:04 PM SOFTWARE DEVELOPMENT PROJECT MANAGER) WBC, ur 0-5 0 - 5 /HPF RBC, ur 0-2 0 - 2 /HPF [facility] ([place]) Epithelial cells, squamous, ur 6-10(A) 0 - 5 /HPF [facility] ([place]) Bacteria, ur 1+(A) [facility] ([place]) Mucous, ur Present(A) [facility] ([place]) Culture Reflex Comment Reflex conditions for urine culture (WBC >10) not met. [facility] ([place]) Urine 07/31/2025 7:04 PM SOFTWARE DEVELOPMENT PROJECT MANAGER 07/31/2025 7:17 PM SOFTWARE DEVELOPMENT PROJECT MANAGER us Rox Amos MD LAB URINE ORDERABLE S Final Result Performing Organization Address [facility] Co de Phone Number [facility] ([place]) 1 [facility] Department [place] [address] * eGFR (07/31/2025 5:15 PM SOFTWARE DEVELOPMENT PROJECT MANAGER) Pathologist [facility] [place] eGFR >90 >=60 mL/min/1. 73 m2 Comment: [...] last reviewed 2021. Blood 07/31/2025 5:15 PM SOFTWARE DEVELOPMENT PROJECT MANAGER 07/31/2025 5:20 PM SOFTWARE DEVELOPMENT PROJECT MANAGER us Rox Amos MD LAB BLOOD ORDERABLE S Final Result [facility] TillmanNOVELTY) 1 [facility] Department [place] [address] * Differential, auto (07/31/2025 5:15 PM SOFTWARE DEVELOPMENT PROJECT MANAGER) Neutrophil abs 3.58 1.50 - 6.50 K/cumm Imm gran abs 0.02 0.00 - 0.10 K/cumm [facility] ([place]) Lymphocyte abs 1.99 0.80 - 3.30 K/cumm [facility] ([place]) Monocyte abs 0.70 0.20 - 0.80 K/cumm [facility] ([place]) Eosinophil abs 0.24 0.00 - 0.50 K/cumm [...] revised on 2017. Blood 07/31/2025 5:15 PM SOFTWARE DEVELOPMENT PROJECT MANAGER 07/31/2025 5:20 PM SOFTWARE DEVELOPMENT PROJECT MANAGER us Rox Amos MD LAB BLOOD ORDERABLE S Final Result [facility] (LEXIS) 1 [facility] Department [place] [address] * (ABNORMAL) CBC with auto differential (07/31/2025 5:15 PM SOFTWARE DEVELOPMENT PROJECT MANAGER) WBC 6.59 3.80 - 9.90 K/cumm Hgb [...] [facility] ([facility]) Blood 07/31/2025 5:15 PM SOFTWARE DEVELOPMENT PROJECT MANAGER 07/31/2025 5:20 PM SOFTWARE DEVELOPMENT PROJECT MANAGER Rox Amos MD LAB BLOOD ORDERABLE S Final Result [facility] ([place]) 1 [facility] [place] [address] * Lipase (07/31/2025 5:15 PM SOFTWARE DEVELOPMENT PROJECT MANAGER) Lipase 18 10 - 99 Units/L Blood 07/31/2025 5:15 PM SOFTWARE DEVELOPMENT PROJECT MANAGER 07/31/2025 5:20 PM SOFTWARE DEVELOPMENT PROJECT MANAGER Rox Amos MD LAB BLOOD ORDERABLE S Final Result [facility] ([place]) 1 [facility] [place] [address] * (ABNORMAL) Comprehensive metabolic panel (07/31/2025 5:15 PM SOFTWARE DEVELOPMENT PROJECT MANAGER) Sodium 138 135 - 145 mmol/L Potassium, pl 4.1 3.3 - 4.9 mmol/L [facility] ([place]) Chloride 105 97 - 110 mmol/L [facility] ([place]) CO2 24 22 - 32 mmol/L [facility] ([place]) Anion gap 9 2 - [...] [facility] ([place]) Blood 07/31/2025 5:15 PM SOFTWARE DEVELOPMENT PROJECT MANAGER 07/31/2025 5:20 PM SOFTWARE DEVELOPMENT PROJECT MANAGER us Rox Amos MD LAB BLOOD ORDERABLE S Final Result [facility] ([place]) 1 [facility] Department [place] [address] * XR Elbow Right 2 Views (07/23/2025 5:44 PM SOFTWARE DEVELOPMENT PROJECT MANAGER) Anatomical Region Laterality Modality Upper Extremities, Elbow Right Compute d Radiography 07/23/2025 5:45 PM SOFTWARE DEVELOPMENT PROJECT MANAGER Narrative 07/23/2025 5:45 PM SOFTWARE DEVELOPMENT PROJECT MANAGER Infiltrate Electronically signed by: Ghulam Ahmadi M.D. Procedure Note Ghulam Ahmadi MD - 07/23/2025 Infiltrate Electronically signed by: Ghulam Ahmadi M.D. Yolande LI IMG XR PROCEDURES Final R esult * (ABNORMAL) Urinalysis reflex to microscopic and culture Urine (07/23/2025 5:19 PM SOFTWARE DEVELOPMENT PROJECT MANAGER) Color, ur Straw Yellow Clarity, ur Clear [...] tendency for uric acid stone formation. Source: [facility] [employer] Current Interpretive Data was last revised on [...] will be performed. [facility] ([place]) Urine 07/23/2025 5:19 PM SOFTWARE DEVELOPMENT PROJECT MANAGER 07/23/2025 5:22 PM SOFTWARE DEVELOPMENT PROJECT MANAGER Rox Amos MD LAB MICROBIOLOGY - GENERAL ORDERABLES Final Result Performing Organization Address [facility] Co de Phone Number [facility] ([place]) 1 [facility] [employer] [address] * (ABNORMAL) Urinalysis, microscopic only (07/23/2025 5:19 PM SOFTWARE DEVELOPMENT PROJECT MANAGER) WBC, ur 0-5 0 - 5 /HPF RBC, ur 0-2 0 - 2 /HPF [facility] ([place]) Epithelial cells, squamous, ur 1-5 0 - 5 /HPF [facility] ([place]OVEL[place]) Bacteria, ur 1+(A) [facility] ([place]EL[place]) Culture Reflex Comment Reflex conditions for urine culture (WBC >10) not met. [facility] ([place]) Urine 07/23/2025 5:19 PM SOFTWARE DEVELOPMENT PROJECT MANAGER 07/23/2025 5:22 PM SOFTWARE DEVELOPMENT PROJECT MANAGER Rox Amos MD LAB URINE ORDERABLE S Final Result Performing Organization Address [facility] Co de Phone Number [facility] ([place]) 1 [facility] [address] * POCT glucose (07/23/2025 5:18 PM SOFTWARE DEVELOPMENT PROJECT MANAGER) Glucose, POC 101 70 - 199 mg/dL Blood 07/23/2025 5:18 PM SOFTWARE DEVELOPMENT PROJECT MANAGER 07/23/2025 5:18 PM SOFTWARE DEVELOPMENT PROJECT MANAGER Notinfile Unknown LAB POCT ORDERABLES - DEVICE F inal Result Performing Organization Address City/[facility]/ZIP Co de Phone Number [facility] ([place]) 1 [facility] [employer] [address] * eGFR (07/23/2025 3:51 PM SOFTWARE DEVELOPMENT PROJECT MANAGER) eGFR >90 >=60 mL/min/1. 73 m2 Comment: [...] last reviewed 2021. Blood 07/23/2025 3:51 PM SOFTWARE DEVELOPMENT PROJECT MANAGER 07/23/2025 3:54 PM SOFTWARE DEVELOPMENT PROJECT MANAGER us Rox Amos MD LAB BLOOD ORDERABLE S Final Result [facility] ([place]TY) 1 [facility] Department [place] [address] * Differential, auto (07/23/2025 3:51 PM SOFTWARE DEVELOPMENT PROJECT MANAGER) Pathologist [facility] [place] Neutrophil abs 4.22 1.50 - 6.50 K/cumm Imm gran abs 0.02 0.00 - 0.10 K/cumm [facility] ([place]) Lymphocyte abs 1.84 0.80 - 3.30 K/cumm [facility] ([place]) Monocyte abs 0.52 0.20 - 0.80 K/cumm [facility] ([place]) Eosinophil abs 0.29 0.00 - 0.50 K/cumm [facility] ([place]) Basophil abs 0.04 0.00 - 0.10 K/cumm [facility] ([place]) Neutrophil pct 60.8 % [facility] ([place]IS) Comment: Interpretive Data Percent cell count reference ranges are not reported, since discordance with absolute values may lead to misinterpretation of CBC data. Current Interpretive Data was last revised on 2017. Imm gran pct 0.3 % [facility] ([place]) Comment: Interpretive Data [...] revised on 2017. Monocyte pct 7.5 % [facility] ([facility]) Comment: Interpretive Data Percent cell [...] revised on 2017. Basophil pct 0.6 % [facility] ([facility]) Comment: Interpretive Data Percent cell count reference ranges are not reported, since discordance with absolute values may lead to misinterpretation of CBC data. Current Interpretive Data was last revised on 2017. Blood 07/23/2025 3:51 PM SOFTWARE DEVELOPMENT PROJECT MANAGER 07/23/2025 3:54 PM SOFTWARE DEVELOPMENT PROJECT MANAGER us Rox Amos MD LAB BLOOD ORDERABLE S Final Result [facility] (LEXIS) 1 [facility] Department of Laboratories [place], [place] [id number] * (ABNORMAL) CBC with auto differential (07/23/2025 3:51 PM SOFTWARE DEVELOPMENT PROJECT MANAGER) WBC 6.93 3.80 - 9.90 K/cumm Hgb [...] blood specimen / Unknown 07/23/2025 3:51 PM SOFTWARE DEVELOPMENT PROJECT MANAGER 07/23/2025 3:54 PM SOFTWARE DEVELOPMENT PROJECT MANAGER Rox Amos MD LAB BLOOD ORDERABLE S Final Result [facility] (LEXIS) 1 [facility] [employer] [place] [employer] [place] [address] * Lipase (07/23/2025 3:51 PM SOFTWARE DEVELOPMENT PROJECT MANAGER) Lipase 31 10 - 99 Units/L Blood Venous blood specimen / Unknown 07/23/2025 3:51 PM SOFTWARE DEVELOPMENT PROJECT MANAGER 07/23/2025 3:54 PM SOFTWARE DEVELOPMENT PROJECT MANAGER Rox Amos MD LAB BLOOD ORDERABLE S Final Result [facility] ([place]IS) 1 [facility] Department [place] [address] * (ABNORMAL) Comprehensive metabolic panel (07/23/2025 3:51 PM SOFTWARE DEVELOPMENT PROJECT MANAGER) Sodium 134(L) 135 - 145 mmol/L Potassium, pl 4.5 3.3 - 4.9 mmol/L [facility] ([facility]) Chloride 103 97 - 110 mmol/L [facility] ([place]) CO2 25 22 - 32 mmol/L [facility] ([facility]) Anion gap 6 2 - 15 mmol/L [facility] (LEXIS) [...] [facility] ([facility]) Blood 07/23/2025 3:51 PM SOFTWARE DEVELOPMENT PROJECT MANAGER 07/23/2025 3:54 PM SOFTWARE DEVELOPMENT PROJECT MANAGER us Rox Amos MD LAB BLOOD ORDERABLE S Final Result [facility] ([place]) 1 [facility] Department [place] [address] * Troponin T high-sensitivity 2-hour (07/13/2025 8:01 AM CDT) Trop T hs 7 <=14 ng/L Comment: Interpretive Data For further hscTnT resources including the diagnostic algorithm and an aid in interpretation, copy and paste this link: https://nrl.testcatalog.org/show/hsTrop Current Interpretive Data last revised 2020. Trop T hs delta -1 ng/L [facility] ([place]) Trop T hs interp Insignificant [facility] ([place]) Blood 07/13/2025 8:01 AM CDT 07/13/2025 8:05 AM CDT Yves Andre MD LAB BLOOD ORDERABLE S Final Result [facility] ([place]TY) 1 [facility] Department [place] [address] * XR Chest 1 View (07/13/2025 6:42 [...] AM CDT) 07/13/2025 6:26 AM CDT Narrative [facility] - 07/13/2025 8:13 AM CDT Vent Rate: 70 bpm RR Interval: 851 msec FL Interval: 165 msec QRS Duration: 94 msec QT Interval: 377 msec QTC Interval: 398 msec P-R-T [place]: 80 - -8 - 70 degrees IMPRESSION: SINUS RHYTHM NORMAL ECG Electronically Signed By: Wm De La Garza MD Yves Andre MD ECG ORDERABLES Fin al Result [facility] * Troponin T high-sensitivity series (baseline, 2hr, 4hr, 6hr) (07/13/2025 6:24 AM CDT) Pathologist [facility] [place] Trop T hs 8 <=14 ng/L Comment: Interpretive Data For further hscTnT resources including the diagnostic algorithm and an aid in interpretation, copy and paste this link: https://nrl.testcatalog.org/show/hsTrop Current Interpretive Data last revised 2020. Blood 07/13/2025 6:24 AM CDT 07/13/2025 6:30 AM CDT Yves Andre MD LAB BLOOD ORDERABLE S Final Result [facility] ([place]) 1 [facility] Department of Laboratories [place], [place] [id number] * eGFR (07/13/2025 6:24 AM CDT) Pathologist [facility] [place] eGFR >90 >=60 mL/min/1. 73 m2 Comment: [...] BLOOD ORDERABLE S Final Result [facility] ([place]) [address] [place] [address] Department [place] [address] * Differential, auto (07/13/2025 6:24 AM CDT) [...] BLOOD ORDERABLE S Final Result [facility] ([place]) 1 [facility] Department [place] [address] * (ABNORMAL) CBC with auto differential (07/13/2025 [...] (LEXIS) MCV 82.9 81.3 - 96.4 fL [facility] MCH 26.7(L) 27.1 - 33.3 pg [facility] ([place]) MCHC 32.2(L) 32.3 - 35.7 g/dL [facility] ([place]) RDW CV 13.1 11.1 - 14.9 % [facility] RDW SD 39.0 35.7 - 48.1 fL [facility] NRBC abs 0.00 0.00 - 0.01 K/cumm [facility] Blood 07/13/2025 6:24 AM CDT 07/13/2025 6:30 AM CDT us Yves Andre MD LAB BLOOD ORDERABLE S Final Result [facility] (LEXIS) 1 [facility] Department [place] [address] * (ABNORMAL) Comprehensive metabolic panel (07/13/2025 6:24 AM CDT) Sodium 140 135 - 145 mmol/L Potassium, pl 4.1 3.3 - 4.9 mmol/L [facility] ([place]) Chloride 105 97 - 110 mmol/L [facility]) CO2 25 22 - 32 mmol/L [facility]) Anion gap 10 2 - 15 mmol/L [facility] BUN 10 6 - 25 mg/dL [facility] ([place]) Creatinine 0.72 0.60 - 1.10 mg/dL [facility] Glucose 167 70 - 199 mg/dL [facility] ([facility] Comment: Interpretive Data Fasting glucose [...] S Final Result [facility] ([place]) 1 [facility] Department [place] [address] * CT Abdomen Pelvis W Contrast (07/07/2025 [...] signed by: Abdulkadir Weiss M.D. Elaine LI [facility] PROCEDURES Final Result * eGFR (07/07/2025 [...] LAB BLOOD ORDERABLES Final Resu lt [facility] ([place]) 1 [facility] Department [place] [address] * Differential, auto (07/07/2025 12:53 PM CDT) [...] BLOOD ORDERABLES Final Resu lt [facility] ([place]) 1 [facility] Department [place] [address] * Urinalysis reflex to microscopic and culture Urine (07/07/2025 12:53 PM CDT) Color, ur Straw Yellow Clarity, ur Clear Clear [facility] Hussein ([place]) Specific gravity, ur 1.006 1.003 - 1.030 [facility] ([place]) pH, urine 7.0 [facility] ([place]) Comment: Interpretive Data U rine pH is affected by diet, medications, systemic acid-base disturbances, and renal tubular function. pH may affect urinary stone formation. For example, urine pH below 6.0 may help reduce the tendency for calcium phosphate stones and pH greater than 6.0 may reduce the tendency for uric acid stone formation. Source: [facility] [employer] Current Interpretive Data was last revised on 2017 Protein, ur ql Negative Negative [facility] ([place]) Glucose, ur ql Negative Negative [facility] R [...] MICROBIOLOGY - GENERAL SCARLETT AVALOS Final Result [facility] 1 [facility] Department [place] [address] * (ABNORMAL) CBC with auto differential (07/07/2025 [...] Final Resu lt [facility] ([place]) [address] [place] [address] * Magnesium (07/07/2025 12:53 PM CDT) Pathologist [facility] [place] Magnesium 1.8 1.4 - 2.5 mg/dL Blood 07/07/2025 12:5 3 PM CDT 07/07/2025 12:56 PM CDT Elaine LI LAB BLOOD ORDERABLES Final Resu lt Performing Organization Address City/[facility]/ZIP Co de Phone Number [facility] ([place]ELTY) 1 [place] [address] * Lipase (07/07/2025 12:53 PM CDT) Pathologist [facility] [place] Lipase 22 10 - 99 Units/L Blood 07/07/2025 12:5 3 PM CDT 07/07/2025 12:56 PM CDT Elaine LI LAB BLOOD ORDERABLES Final Resu lt Performing Organization Address City/[facility]/ZIP Co de Phone Number [facility] ([place]) [address] [place] [address] * (ABNORMAL) Comprehensive metabolic panel (07/07/2025 12:53 PM CDT) Sodium 138 135 - 145 mmol/L Potassium, pl 4.2 3.3 - 4.9 mmol/L [facility] ([place]) Chloride 104 97 - 110 mmol/L [facility] ([place]IS) CO2 23 22 - 32 mmol/L [facility] ([place]) Anion gap 11 2 - 15 mmol/L [facility] ([place]) BUN 10 6 - 25 [...] LI LAB BLOOD ORDERABLES Final Resu lt [facility] 1 [facility] Department [place] [address] * (ABNORMAL) Urinalysis reflex to [...] tendency for uric acid stone formation. Source: [facility] Current Interpretive Data was last revised [...] ORDERABLES Final Result [facility] ([place]) 1 [facility] Department [place] [address] * (ABNORMAL) Urinalysis, microscopic only (06/25/2025 10:46 [...] Final Result Performing Organization Address [facility] Co de Phone Number [facility] ([place]) 1 [facility] [place] [address] * Urine culture Urine (06/25/2025 10:46 PM CDT) Report Final Report: Less than 100,000 colonies/mL (clinically insignificant growth based on current clinical standards) Comment:Testing performed by : [facility], [address] [place] [address] Organism (CLINICALLY INSIGNIFICANT GROWTH [facility] ([place]) Urine 06/25/2025 10:4 6 PM CDT 06/26/2025 1:36 AM CDT Narrative [facility] - 06/27/2025 2:27 AM CDT Urine culture reflexed based upon urinalysis results. Testing performed by [facility] ([phone]) Papito LI LAB MICROBIOLOGY - GENERAL ORDERABLES Final Result Performing Organization Address [facility] Co de Phone Number [facility] ([place]) 1 [facility] [address] * CT Abdomen Pelvis WO Contrast (06/25/2025 [...] Reported sudden abdominal pain since 2 days SOFTWARE RELEASE MANAGER and progressive pain with 3-4 episodes of vomiting one day SOFTWARE RELEASE MANAGER. Pt. Stated pain mainly at RUQ down to RLQ. Pt. Also reported 7-8 episodes of diarrhea hours SOFTWARE RELEASE MANAGER. TECHNIQUE: CT scan of the abdomen and [...] Yves Rodriguez M.D. AR: SOFY Report ID: [id number] Reading Location: [id number] Procedure Note Yves Rodriguez MD - 06/25/2025 EXAM DESCRIPTION: CT ABDOMEN PELVIS WO CONTRAST REASON FOR STUDY: Abdominal pain CC of abdominal pain associated with nausea and vomiting with diarrhea.Known case of DM type 2 and hypertension. Reported sudden abdominal pain since 2 days SOFTWARE RELEASE MANAGER and progressive pain with 3-4 episodes of vomiting one day SOFTWARE RELEASE MANAGER.Pt. Stated pain mainly at RUQ down to RLQ. Pt. Also reported 7-8 episodes of diarrhea hours SOFTWARE RELEASE MANAGER. TECHNIQUE: CT scan of the abdomen and [...] Yves Rodriguez M.D. AR: SOFY Report ID: [id number] Reading Location: [place] [address] us Rox Amos MD IMG CT PROCEDURES [...] BLOOD ORDERA BLES Final Result [facility] ([place]) 1 [facility] Department [place] [address] * Differential, auto (06/25/2025 9:07 PM CDT) [...] Neutrophil pct 64.3 % [facility] ([place]) Comment: Interpretive Data Percent cell count reference [...] ORDERA BLES Final Result Performing Organization Address City/[facility]/ZIP Co de Phone Number [facility] ([place]) 1 [facility] Department [place] [address] * (ABNORMAL) CBC with auto differential (06/25/2025 [...] LI LAB BLOOD ORDERA BLES Final Result [facility] ([place]) 1 [facility] Department [place] [address] * Lipase (06/25/2025 9:07 PM CDT) Lipase 23 10 - 99 Units/L Blood 06/25/2025 9:07 PM CDT 06/25/2025 9:09 PM CDT Papito LI LAB BLOOD ORDERA BLES Final Result [facility] 1 [facility] Department [place] [address] * (ABNORMAL) Comprehensive metabolic panel (06/25/2025 9:07 PM CDT) Sodium 135 135 - 145 mmol/L Potassium, pl 4.0 3.3 - 4.9 mmol/L [facility] Chloride 100 97 - 110 mmol/L [facility] ([place]) CO2 24 22 - 32 mmol/L [facility] ([place]) Anion gap 11 2 - 15 mmol/L [facility] BUN 13 6 - 25 mg/dL [facility] Creatinine 0.77 0.60 - 1.10 mg/dL [facility] ([place]) Glucose 226(H) 70 - 199 mg/dL [facility] Comment: Interpretive Data Fasting glucose [...] BLES Final Result [facility] ([facility]) 1 [facility] Department [place] [address] from Last 3 Months Insurance MEDICARE [facility] MEDICARE [facility] MEDICARE Address: [address] [address] [place] [address] [facility] MEDICARE ADVANTAGE Care Teams Baler Relationship Specialty Start Date End Date Brissa Tijerina MD [address] [place] [address] PCP - General Family Medicine 07/13/25
--- OUTSIDE RECORDS SUMMARY | 2025-09-05 21:29 | XMS_ITS | Continuity of Care Document ---
Author Organization [facility] CL ANDREE LLAngel Salgado [facility] [place] ([place]) Address [address] [address] Care Team Providers Care Ride Assembly Supervisor Name Role Phone DRAKE FARRIS Director Heart PAULY VIZCAINO Primary Care Provider PAULY VIZCAINO Referring Provider DELIA HALL Bioanalyst Assessment Encounter Date Assessment Date Assessment LastModified [...] Not available Pulm Funct ion Metha choli ne.KS O 2025 02:00P M Pulmonary Diseases & [...] Estab judy Stoner nt 15.ES T 2025 02:00P M Vinicius Pritchard Not available Not [...] prese nt. Not Available Sc Only - [facility] [address] [place] [address], [address], 05/07/2025 19:09:14 05/07/20 25 05/07/2025 LPSE lipase,serum 33 u/L 16-77 Not Dalila ilable Sc Only - [facility] [address] [place] [address], [address], 05/07/2025 19:09:12 08/24/20 25 05/07/2025 LDH LD 187 u/L 81-234 Not Available [place] Only - [facility] [address] [place] [address], [address], 05/07/2025 19:09:10 05/07/20 25 05/07/2025 CMP sodium 142 mmol/ L 135-14 8 Not Available Wa Only - [facility] [address], [address], 05/07/2025 19:09:09 05/07/20 25 05/07/2025 CMP potassium 4.2 mmol/ L 3.5-5. 3 Not Available Wa Only - [facility] [address], [address], 05/07/2025 19:09:09 05/07/20 25 05/07/2025 CMP chloride 107 mmol/ L 96-112 Not Available Wa Only - [facility] [address], [address], 05/07/2025 19:09:09 05/07/20 25 05/07/2025 CMP CO2 30 mmol/ L 23-33 Not Available Wa Only - [facility] [address], [address], 05/07/2025 19:09:09 05/07/20 25 05/07/2025 CMP BUN 13 mg/dL 7-18 Not Available Wa Only - [facility] [address], [address], 05/07/2025 19:09:09 05/07/20 25 05/07/2025 CMP creatinine 1.16 mg/dL 0.55-1 .02 high Not Available Wa Only - [facility] [address], [address], 05/07/2025 19:09:09 05/07/20 25 05/07/2025 CMP glucose 101 mg/dL 65-99 high Not Availabl e Wa Only - [facility] [address], [address], 05/07/2025 19:09:09 05/07/20 25 05/07/2025 CMP calcium 9.0 mg/dL 8.5-10 .1 Not Available Wa Only - [facility] [address], [address], 05/07/2025 19:09:09 05/07/20 25 05/07/2025 CMP total protein 7.0 g/dL 6.4-8. 2 Not Available Wa Only - [facility] [address] [place] [address], [address], 05/07/2025 19:09:09 05/07/20 25 05/07/2025 CMP albumin 3.1 g/dL 3.4-5. 0 low Not Available Wa Only - [facility] [address] [place] [address], [address], 05/07/2025 19:09:09 05/07/20 25 05/07/2025 CMP bilirubin (total) 0.6 mg/dL 0.2-1. 0 Not Available Wa Only - [facility] [address] [place] [address], [address], 05/07/2025 19:09:09 05/07/20 25 05/07/2025 CMP AST 35 u/L 15-37 Not Available Wa Only - [facility] [address] [place] [address], [address], 05/07/2025 19:09:09 05/07/20 25 05/07/2025 CMP alk phos 159 u/L 46-116 high Not Availab le Sc Only - [facility] [address], [address], 05/07/2025 19:09:09 05/07/20 25 05/07/2025 CMP ALT 38 u/L 14-59 Not Available Sc Only - [facility] [address] [place] [address], [address], 05/07/2025 19:09:09 05/07/20 25 05/07/2025 CMP anion gap 5 mmol/ L 7-16 low Not Available Sc Only - [facility] [address] [place] [address], [address], 05/07/2025 19:09:09 05/07/20 25 05/07/2025 DBIL bilirubin (direct) 0.11 mg/dL 0.00-0 .20 Not Available Sc Only - [facility] [address] [place] [address], [address], 05/07/2025 19:09:08 05/07/20 25 05/07/2025 CBCW/ DIFF WBC 5.83 x10 3.98-1 0.04 Not Available Sc Only - [facility] [address] [place] [address], [address], 05/07/2025 19:09:04 05/07/20 25 05/07/2025 CBCW/ DIFF RBC 3.77 x10 3.93-5 .22 low Not Available Sc Only - [facility] [address] [place] [address], [address], 05/07/2025 19:09:04 05/07/20 25 05/07/2025 CBCW/ DIFF hemoglobin 10.3 g/dL 11.2-1 5.7 low Not Available Sc Only - [facility] [address] [place] [address], [address], 05/07/2025 19:09:04 05/07/20 25 05/07/2025 CBCW/ DIFF hematocrit 32.2 % 34.1-4 4.9 low Not Available Sc Only - [facility] [address] [place] [address], [address], 05/07/2025 19:09:04 05/07/20 25 05/07/2025 CBCW/ DIFF MCV 85.4 fL 79.4-9 4.8 Not Available Sc Only - [facility] [address] [place] [address], [address], 05/07/2025 19:09:04 05/07/20 25 05/07/2025 CBCW/ DIFF MCH 27.3 pg 25.6-3 2.2 Not Available Sc Only - [facility] [address] [place] [address], [address], 05/07/2025 19:09:04 05/07/20 25 05/07/2025 CBCW/ DIFF MCHC 32.0 g/dL 32.2-3 5.5 low Not Available Sc Only - [facility] [address] [place] [address], [address], 05/07/2025 19:09:04 05/07/20 25 05/07/2025 CBCW/ DIFF rdwcv 13.8 % 11.7-1 4.4 Not Available Sc Only - [facility] [address] [place] [address], [address], 05/07/2025 19:09:04 05/07/20 25 05/07/2025 CBCW/ DIFF rdwsd 43.1 fL 36.4-4 6.3 Not Available Sc Only - [facility] [address] [place] [address], [address], 05/07/2025 19:09:04 05/07/20 25 05/07/2025 CBCW/ DIFF platelets 191 x10 182-36 9 Not Available Sc Only - [facility] [address] [place] [address], [address], 05/07/2025 19:09:04 05/07/20 25 05/07/2025 CBCW/ DIFF MPV 10.0 fL 9.4-12 .3 Not Available Sc Only - [facility] [address] [place] [address], [address], 05/07/2025 19:09:04 05/07/20 25 05/07/2025 AUTOD IFF neutrophils 57.2 % 34.0-7 1.1 Not Available Sc Only - [facility] [address] [place] [address], [address], 05/07/2025 19:09:03 05/07/20 25 05/07/2025 AUTOD IFF lymphocytes 25.9 % 19.3-5 1.7 Not Available Sc Only - [facility] [address], [address], 05/07/2025 19:09:03 05/07/20 25 05/07/2025 AUTOD IFF monocytes 11.8 % 4.7-12 .5 Not Available Sc Only - [address], [address], 05/07/2025 19:09:03 05/07/20 25 05/07/2025 AUTOD IFF eosinophils 3.8 % 0.7-5. 8 Not Available Sc Only - [address], [address], 05/07/2025 19:09:03 05/07/20 25 05/07/2025 AUTOD IFF basophils 1.0 % 0.1-1. 2 Not Available [place] Only - [address], [address], 05/07/2025 19:09:03 05/07/20 25 05/07/2025 AUTOD IFF imm auto 0.3 % 0.0-1. 5 Not Available [place] Only - [address], [address], 05/07/2025 19:09:03 05/07/20 25 05/07/2025 AUTOD IFF NRBC auto 0.0 /100W BC 0.0-0. 2 Not Available Sc Only - [address], [address], 05/07/2025 19:09:03 05/07/20 25 05/07/2025 AUTOD IFF absolute neutrophils 3.33 x10 1.56-6 .13 Not Available Sc Only - [address], [address], 05/07/2025 19:09:03 05/07/20 25 05/07/2025 AUTOD IFF absolute lymphocytes 1.51 x10 1.18-3 .74 Not Available Sc Only - [facility] [address] [place] [address], [address], 05/07/2025 19:09:03 05/07/20 25 05/07/2025 AUTOD IFF absolute monocytes 0.69 x10 0.24-0 .36 high Not Available [place] Only - [address], [address], 05/07/2025 19:09:03 05/07/20 25 05/07/2025 AUTOD IFF absolute eosinophils 0.22 x10 0.04-0 .36 Not Available [place] Only - [address], [address], 05/07/2025 19:09:03 05/07/20 25 05/07/2025 AUTOD IFF absolute basophils 0.06 x10 0.01-0 .08 Not Available [facility] - [address], [address], 05/07/2025 19:09:03 05/07/20 25 05/07/2025 AUTOD IFF imm absolute 0.02 x10 0.00-0 .15 Not Available [facility] - [address], [address], 05/07/2025 19:09:03 05/07/20 25 05/07/2025 AUTOD IFF NRBC absolute 0.00 x10 0.00-0 .01 Not Available [facility] - [address], [address], 05/07/2025 19:09:03 05/07/20 25 05/09/2025 C URINE [...] mptiv e and Prote us speci es [place] ELIMI NARY REPOR TS Preli minar y Repor t [] Verif ied Date/ Time: 2024 08:17 CDT 40,00 0 cfu/m l Mixed presu mptiv e and Prote us speci es Not Available Sc Only - [facility] [address] [place] [address], [address], 05/09/2025 08:43:01 05/07/20 25 05/07/2025 UACS color Pauline Not Available Sc Only - [facility] [address] [place] [address], [address], 05/07/2025 19:09:16 05/07/20 25 05/07/2025 UACS appearance Clear Not Avail able Sc Only - [facility] [address] [place] [address], [address], 05/07/2025 19:09:16 05/07/20 25 05/07/2025 UACS specific gravity 1.016 1.003- 1.035 Not Available Sc Only - [facility] [address] [place] [address], [address], 05/07/2025 19:09:16 05/07/20 25 05/07/2025 UACS pH urine 6.0 5.0-8. 0 Not Available Sc Only - [facility] [address] [place] [address], [address], 05/07/2025 19:09:16 05/07/20 25 05/07/2025 UACS protein 1+ abnormal Not Availa ble Wa Only - [facility] [address], [address], 05/07/2025 19:09:16 05/07/2005/07/2025 UACS urine glucose Negati ve Not Available Wa Only - [facility] [address] [place] [address], [address], 05/07/2025 19:09:16 05/07/2005/07/2025 UACS ketones Negati ve Not Available Wa Only - [facility] [address] [place] [address], [address], 05/07/2025 19:09:16 05/07/2005/07/2025 UACS urine bilirubin Negati ve Not Available [facility] - [facility] [address] [place] [address], [address], 05/07/2025 19:09:16 05/07/2005/07/2025 UACS urine HGB 1+ abnormal Not Avai lable Wa Only - [facility] [address] [place] [address], [address], 05/07/2025 19:09:16 05/07/2005/07/2025 UACS nitrite Positi ve abnormal Not Available [facility] - [facility] [address] [place] [address], [address], 05/07/2025 19:09:16 05/07/2005/07/2025 UACS leukocyte esterase 1+ abnormal Not Available Wa On y - [facility] [address] [place] [address], [address], 05/07/2025 19:09:16 05/07/2005/07/2025 UACS urobilinogen >=4.0 abnormal Refer ence Range : <=1 Not Available [place] Only - [facility] [address], [address], 05/07/2025 19:09:16 05/07/2005/07/2025 UACS urine WBCs 26-50 abnormal Refer ence Range : <=5 Not Available [address], [address], 05/07/2025 19:09:16 05/07/20 25 05/07/2025 UACS urine RBCs 3-5 abnormal Refer ence Range : <=2 Not Available [address], [address], 05/07/2025 19:09:16 05/07/20 25 05/07/2025 UACS squamous epithelial cells 3+ Refer ence Range : <=3+ Not Available [address], [address], 05/07/2025 19:09:16 05/07/20 25 05/07/2025 UACS bacteria Trace abnormal Refer ence Range : <=Tra ce, Non-C ath Not Available [address], [address], 05/07/2025 19:09:16 05/07/20 25 05/07/2025 UACS transitional epithelial cells Few Refer ence Range : <=2+ Not Available [address], [address], 05/07/2025 19:09:16 05/07/2005/07/2025 UACS hyaline casts 1 /lpf 0-2 Not Available Wa Onl y - [facility] [address] [place] [address], [address], 05/07/2025 19:09:16 05/07/20 25 05/07/2025 UACS UA mucous Presen t Not Available [facility] [address] [place] [address], [address], 05/07/2025 19:09:16 05/07/20 25 05/07/2025 UACS urine ascorbic acid Negati ve Ascor bic acid can inter fere with the detec tion of blood , gluco se, and nitri te. Not Available Wa Only - [facility] [address] [place] [address], [address], 05/07/2025 19:09:16 05/07/20 25 05/08/2025 C URINE [...] 2024 17:22 CDT FREE TEXT SOURC E: [place] ELIMI NARY REPOR TS Preli minar y Repor t [] Verif ied Date/ Time: 2024 08:17 CDT 40,00 0 cfu/m l Mixed presu mptiv e and Prote us speci es Not Available Wa Only - [facility] [address] [place] [address], [address], 05/08/2025 09:17:23 05/18/20 25 05/18/2025 LIPAS E lipase 33 U/L 8 - 57 Not Available Wa Only - [facility] [address] [place], [address], 05/18/2025 06:33:26 05/18/20 25 05/18/2025 COMPL ETE METAB OLIC PANEL sodium 142 mmol/ L 136 - 145 Not Available [facility] - [facility] [address] [place], [address], 05/18/2025 06:33:22 05/18/20 25 05/18/2025 COMPL ETE METAB OLIC PANEL potassium 3.6 mmol/ L 3.5 - 5.1 Not Available Wa Only - [facility] [address] [place], [address], 05/18/2025 06:33:22 05/18/20 25 05/18/2025 COMPL ETE METAB OLIC PANEL chloride 111 mmol/ L 98 - 107 high Not Available [facility] - [facility] [address] [place], [address], 05/18/2025 06:33:22 05/18/20 25 05/18/2025 COMPL ETE METAB OLIC PANEL CO2 24 mmol/ L 22 - 28 Not Available [facility] - [facility] [address] [place], [address], 05/18/2025 06:33:22 05/18/20 25 05/18/2025 COMPL ETE METAB OLIC PANEL glucose 132 mg/dL 70 - 105 high Not Available [facility] - [facility] [address] [place], [address], 05/18/2025 06:33:22 05/18/20 25 05/18/2025 COMPL ETE METAB OLIC PANEL BUN 16 mg/dL 7 - 18 Not Available [facility] - [facility] [address] [place], [address], 05/18/2025 06:33:22 05/18/20 25 05/18/2025 COMPL ETE METAB OLIC PANEL creatinine 0.82 mg/dL 0.44 - 1.24 Not Available Wa Only - [facility] [address] [place], [address], 05/18/2025 06:33:22 05/18/20 25 05/18/2025 COMPL ETE METAB OLIC PANEL total protein 6.4 g/dL 6.0 - 8.3 Not Available Wa Only - [facility] [address] [place], [address], 05/18/2025 06:33:22 05/18/20 25 05/18/2025 COMPL ETE METAB OLIC PANEL albumin 3.4 g/dL 3.5 - 5.0 low Not Available Wa Only - [facility] [address] [place], [address], 05/18/2025 06:33:22 05/18/20 25 05/18/2025 COMPL ETE METAB OLIC PANEL T bilirubin 0.5 mg/dL 0.2 - 1.0 Not Available [facility] - [facility] [address] [place], [address], 05/18/2025 06:33:22 05/18/20 25 05/18/2025 COMPL ETE METAB OLIC PANEL SGPT 20 IU/L 10 - 40 Not Available [facility] - [facility] [address] [place], [address], 05/18/2025 06:33:22 05/18/20 25 05/18/2025 COMPL ETE METAB OLIC PANEL alk phos 127 IU/L 32 - 92 high Not Available Wa Only - [facility] [address] [place], [address], 05/18/2025 06:33:22 05/18/20 25 05/18/2025 COMPL ETE METAB OLIC PANEL SGOT 23 IU/L 10 - 42 Not Available Wa Only - [facility] [address] [place], [address], 05/18/2025 06:33:22 05/18/20 25 05/18/2025 COMPL ETE METAB OLIC PANEL calcium 9.0 mg/dL 8.4 - 10.2 Not Available Wa Only - [facility] [address] [place], [address], 05/18/2025 06:33:22 05/18/20 25 05/18/2025 COMPL ETE METAB OLIC PANEL age 54 yr Not Available Wa Only - [facility] [address] [place], [address], 05/18/2025 06:33:22 05/18/20 25 05/18/2025 COMPL ETE [...] prese nt. Not Available Sc Only - [facility] [address] [place], [address], 05/18/2025 06:33:22 05/18/20 25 05/18/2025 CBC-C OMPLE TE WBC 7.0 10^3u L 4.0 - 10.8 Not Available Sc Only - [facility] [address] [place], [address], 05/18/2025 06:15:17 05/18/20 25 05/18/2025 CBC-C OMPLE TE RBC 3.67 10^6u L 3.80 - 5.20 low Not Available Sc Only - [facility] [address] [place], [address], 05/18/2025 06:15:17 05/18/20 25 05/18/2025 CBC-C OMPLE TE hemoglobin 10.2 g/dL 11.7 - 16.0 low Not Available Sc Only - [facility] [address] [place], [address], 05/18/2025 06:15:17 05/18/20 25 05/18/2025 CBC-C OMPLE TE hematocrit 30.4 % 35.0 - 47.0 low Not Available Wa Only - [facility] [address] [place], [address], 05/18/2025 06:15:17 05/18/2005/18/2025 CBC-C OMPLE TE MCV 83 fL 80 - 100 Not Available Wa Only - [facility] [address] [place], [address], 05/18/2025 06:15:17 05/18/2005/18/2025 CBC-C OMPLE TE MCH 28 pg 28 - 33 Not Available Wa Only - [facility] [address] [place], [address], 05/18/2025 06:15:17 05/18/2005/18/2025 CBC-C OMPLE TE MCHC 34 g/dL 32 - 36 Not Available Wa Only - [facility] [address] [place], [address], 05/18/2025 06:15:17 05/18/2005/18/2025 CBC-C OMPLE TE RDW 15.0 % 11.5 - 15.5 Not Available Wa Only - [facility] [address] [place], [address], 05/18/2025 06:15:17 05/18/2005/18/2025 CBC-C OMPLE TE platelet 204 10^3u L 140 - 440 Not Available Wa Only - [facility] [address] [place], [address], 05/18/2025 06:15:17 05/18/2005/18/2025 CBC-C OMPLE TE MPV 7.4 fL 7.5 - 11.0 low Not Available Wa Only - [facility] [address] [place], [address], 05/18/2025 06:15:17 05/18/2005/18/2025 CBC-C OMPLE TE %neutrophils 53.2 % 40.0 - 75.0 Not Available Wa Only - [facility] [address] [place], [address], 05/18/2025 06:15:17 05/18/2005/18/2025 CBC-C OMPLE TE %lymphocytes 31.5 % 15.0 - 45.0 Not Available Wa Only - [facility] [address] [place], [address], 05/18/2025 06:15:17 05/18/2005/18/2025 CBC-C OMPLE TE %monocytes 11.0 % 2.0 - 12.0 Not Available Wa Only - [facility] [address] [place], [address], 05/18/2025 06:15:17 05/18/2005/18/2025 CBC-C OMPLE TE %eosinophils 2.9 % 0.0 - 5.0 Not Available Wa Only - [facility] [address] [place], [address], 05/18/2025 06:15:17 05/18/2005/18/2025 CBC-C OMPLE TE %basophils 1.4 % 0.0 - 2.0 Not Available Wa Only - [facility] [address] [place], [address], 05/18/2025 06:15:17 05/18/2005/18/2025 CBC-C OMPLE TE neutrophil 3.8 10^3/ uL 1.7 - 7.0 Not Available Wa Only - [facility] [address] [place], [address], 05/18/2025 06:15:17 05/18/2005/18/2025 CBC-C OMPLE TE lymphocyte 2.2 10^3/ uL 0.9 - 3.7 Not Available Wa Only - [facility] [address] [place], [address], 05/18/2025 06:15:17 05/18/2005/18/2025 CBC-C OMPLE TE monocyte 0.8 10^3/ uL 0.2 - 0.8 Not Available Wa Only - [facility] [address] [place], [address], 05/18/2025 06:15:17 05/18/2005/18/2025 CBC-C OMPLE TE eosinophil 0.2 10^3/ uL 0.0 - 0.5 Not Available Wa Only - [facility] [address] [place], [address], 05/18/2025 06:15:17 05/18/20 25 05/18/2025 CBC-C OMPLE TE basophil 0.1 10^3/ uL 0.0 - 0.2 Not Available [facility] - [facility] [address] [place], [address], 05/18/2025 06:15:17 05/18/2005/18/2025 CBC-C OMPLE TE mdw 16.12 0.00 - 20.00 {CD] Not Available Wa Only - [facility] [address] [place], [address], 05/18/2025 06:15:17 05/18/2005/18/2025 CBC-C OMPLE TE manual diff NOT INDICA MICHELLE Not Available [facility] Only - [facility] [address] [place], [address], 05/18/2025 06:15:17 05/18/2005/18/2025 LACTI C ACID lactic acid 1.05 mmol/ L 0.50 - 2.20 Not Available Wa Only - [facility] [address] [place], [address], 05/18/2025 06:12:25 05/18/2005/21/2025 CULTU RE/UR INE results _CULT URE URINE _ Not Available Wa Only - [facility] [address] [place], [address], 05/21/2025 08:28:50 05/18/2005/21/2025 CULTU RE/UR INE final report CLEAN CATCH SPECIM EN _>100 ,000_ cfu/m l____ ___ 05/21.0 727.C ML. _MIXE D_GRA M_POS ITIVE _AND_ NEGAT IVE_F LORA_ ___ 05/21.0 727.C ML. SET PREDO MINAN T ORGAN ISMS Micro biolo gy Not Available Wa Only - [facility] [address], [place], [address], 05/21/2025 08:28:50 05/18/2005/21/2025 CULTU RE/UR INE results Speci [place] Sourc e [id number] 0001 Colle ction Date 05/18 Colle ction Time 04:42 Speci men Note: Rece[place]. [place]: [id number] Exam Statu s Compl etion Date 05/20 [...] PREDO MINAN T ORGAN ISMS Not Available Wa Only - [facility] [address] [place], [address], 05/21/2025 08:28:50 05/18/20 25 05/18/2025 URINA LYSIS color YELLOW normal : yellow Not Available Wa Only - [facility] [address] [place], [address], 05/18/2025 06:03:49 05/18/20 25 05/18/2025 URINA LYSIS character HAZY normal : clear Not Available Wa Only - [facility] [address] [place], [address], 05/18/2025 06:03:49 05/18/20 25 05/18/2025 URINA LYSIS spec. grav 1.015 normal : 1.003- 1.029 Not Available Wa Only - [facility] [address] [place], [address], 05/18/2025 06:03:49 05/18/20 25 05/18/2025 URINA LYSIS pH 7.0 normal : 4.5 - 7.8 Not Available Wa Only - [facility] [address] [place], [address], 05/18/2025 06:03:49 05/18/20 25 05/18/2025 URINA LYSIS leukocytes 2+ normal : negati ve Not Available Wa Only - [facility] [address] [place], [address], 05/18/2025 06:03:49 05/18/20 25 05/18/2025 URINA LYSIS nitrite NEGATI VE normal : negati ve Not Available Wa Only - [facility] [address] [place], [address], 05/18/2025 06:03:49 05/18/20 25 05/18/2025 URINA LYSIS protein NEGATI VE normal : negati ve Not Available Wa Only - [facility] [address] [place], [address], 05/18/2025 06:03:49 05/18/20 25 05/18/2025 URINA LYSIS glucose NEGATI VE normal : negati ve Not Available Wa Only - [facility] [address] [place], [address], 05/18/2025 06:03:49 05/18/20 25 05/18/2025 URINA LYSIS ketones NEGATI VE normal : negati ve Not Available Wa Only - [facility] [address] [place], [address], 05/18/2025 06:03:49 05/18/20 25 05/18/2025 URINA LYSIS urobilinogen 0.2 normal : 0.2 - 1.0 Not Available [facility] Only - [facility] [address] [place], [address], 05/18/2025 06:03:49 05/18/20 25 05/18/2025 URINA LYSIS bilirubin NEGATI VE normal : negati ve Not Available Wa Only - [facility] [address] [place], [address], 05/18/2025 06:03:49 05/18/20 25 05/18/2025 URINA LYSIS blood NEGATI VE normal : negati ve MICRO SCOPI C Not Available Wa Only - [facility] [address] [place], [address], 05/18/2025 06:03:49 05/18/20 25 05/18/2025 URINA LYSIS WBC/hpf 20-30 normal : 0-5 hpf CULTU RE TO FOLLO W PER [place] Not Available Wa Only - [facility] [address] [place], [address], 05/18/2025 06:03:49 05/18/20 25 05/18/2025 URINA LYSIS RBC/hpf 5-10 normal : 0-3 hpf Not Available Wa Only - [facility] [address] [place], [address], 05/18/2025 06:03:49 05/18/20 25 05/18/2025 URINA LYSIS epith/hpf 30-50 normal : 0-5 hpf Not Available Wa Only - [facility] [address] [place], [address], 05/18/2025 06:03:49 05/18/20 25 05/18/2025 URINA LYSIS cast/lpf NONE SEEN normal : 0-4 lpf Not Available Sc Only - [facility] [address] [place], [address], 05/18/2025 06:03:49 05/18/20 25 05/18/2025 URINA LYSIS crystals NONE SEEN normal : negati ve Not Available Wa Only - [facility] [address] [place], [address], 05/18/2025 06:03:49 05/18/20 25 05/18/2025 URINA LYSIS bacteria 1+ normal : negati ve abnormal Not Available [place] Only - [facility] [address] [place], [address], 05/18/2025 06:03:49 05/18/20 25 05/18/2025 URINA LYSIS other MUCUS 1+ Not Available [place] Only - [facility] [address] [place], [address], 05/18/2025 06:03:49 05/26/20 25 05/26/2025 UACS color Yellow Not Available [place] Only - [facility] [address] [place] [address], [id number], 05/26/2025 09:18:45 05/26/20 25 05/26/2025 UACS appearance Clear Not Avail able Sc Only - [facility] [facility] [address] [place] [address], [id number], 05/26/2025 09:18:45 05/26/20 25 05/26/2025 UACS specific gravity 1.013 1.003- 1.030 Not Available [place] [facility] - [facility] [address] [place] [address], 48114, 05/26/2025 09:18:45 05/26/20 25 05/26/2025 UACS pH urine 6.0 4.5-7. 5 Not Available [facility] - [facility] [address] [place] [address], 42811, 05/26/2025 09:18:45 05/26/20 25 05/26/2025 UACS protein 30 abnormal Not Availa ble [facility] - [address], [address], 05/26/2025 09:18:45 05/26/20 25 05/26/2025 UACS urine glucose Negati ve Not Available [facility] - [address], 47[address], 05/26/2025 09:18:45 05/26/20 25 05/26/2025 UACS ketones Negati ve Not Available [facility] - [address], 112[address], 05/26/2025 09:18:45 05/26/20 25 05/26/2025 UACS urine bilirubin Negati ve Not Available [facility] - [address], 97570, 05/26/2025 09:18:45 05/26/20 25 05/26/2025 UACS urine HGB Negati ve Not Available [facility] - [address], 01628, 05/26/2025 09:18:45 05/26/20 25 05/26/2025 UACS nitrite Negati ve Not Available [facility] - [facility] [address] [place] [address], 99271, 05/26/2025 09:18:45 05/26/20 25 05/26/2025 UACS leukocyte esterase Large abnormal Not Available [place] [facility] [facility] [address] [place] [address], 16408, 05/26/2025 09:18:45 05/26/20 25 05/26/2025 UACS urobilinogen Normal Not Dalila ilable [facility] [address] [place] [address], 82130, 05/26/2025 09:18:45 05/26/20 25 05/26/2025 UACS urine WBCs 10 /hpf 0-4 high Not Avail able [facility] [address] [place] [address], 72469, 05/26/2025 09:18:45 05/26/20 25 05/26/2025 UACS urine RBCs 1 /hpf 0-2 Not Avail able [facility] [address] [place] [address], 39207, 05/26/2025 09:18:45 05/26/20 25 05/26/2025 UACS squamous epithelial cells 6 /hpf 0-5 high Not Available [facility] [address] [place] [address], 81986, 05/26/2025 09:18:45 05/26/20 25 05/26/2025 UACS bacteria Occasi onal abnormal Not Available [facility] [address] [place] [address], 62261, 05/26/2025 09:18:45 05/26/20 25 05/26/2025 UACS transitional epithelial cells 1 /hpf 0-1 Not Available [facility] [address] [place] [address], 39068, 05/26/2025 09:18:45 05/26/20 25 05/27/2025 C URINE [...] work- up is neede d. Not Available [place] [facility] - [facility] [address] [place] [address], 82536, 05/27/2025 14:07:20 05/26/20 25 05/26/2025 BN PEPTI DE BNP 18 pg/mL 0-72 Not Available [facility] - [facility] [address] [place] [address], 61833, 05/26/2025 08:08:43 05/26/20 25 05/26/2025 DIMER D-dimer test 0.45 mcg/m L <=0.50 D-Dim ers are the resul t of fibri nolyt ic break down of cross -link ed fibri n. [place] tions indic ate incre ased fibri nolys [...] nogen equiv alent units (feu) Not Available [facility] - [facility] [address] [place] [address], 98000, 05/26/2025 07:28:09 05/26/2005/26/2025 HSTRO P high sensitivity [...] calcu late the delta . Not Available [facility] - [facility] [address] [place] [address], 35124, 05/26/2025 07:13:31 05/26/2005/26/2025 EGFR eGFR 54 mL/mi [...] se(CK D) is prese nt. Not Available [facility] - [facility] [address] [place] [address], 72290, 05/26/2025 07:10:12 05/26/2005/26/2025 MG magnesium 1.8 mg/dL 1.9-2. 7 low Not Available [facility] - [facility] [address] [place] [address], 34992, 05/26/2025 07:10:11 05/26/2005/26/2025 CMP sodium 137 mmol/ L 136-14 5 Not Available [place] [facility] - [facility] [address] [place] [address], 84827, 05/26/2025 07:10:10 05/26/2005/26/2025 CMP potassium 3.9 mmol/ L 3.5-5. 1 Not Available [facility] - [facility] [address] [place] [address], 87070, 05/26/2025 07:10:10 05/26/20 25 05/26/2025 CMP chloride 104 mmol/ L 98-107 Not Available [facility] - [facility] [address] [place] [address], 43869, 05/26/2025 07:10:10 05/26/20 25 05/26/2025 CMP CO2 24 mmol/ L 21-31 Not Available [facility] - [facility] [address], [address], 05/26/2025 07:10:10 05/26/20 25 05/26/2025 CMP BUN 19 mg/dL 7-25 Not Available [facility] - [facility] [address] [place] [address], 67255, 05/26/2025 07:10:10 05/26/20 25 05/26/2025 CMP creatinine 1.2 mg/dL 0.6-1. 3 Not Available [facility] - [facility] [address] [place] [address], 50206, 05/26/2025 07:10:10 05/26/20 25 05/26/2025 CMP glucose 164 mg/dL 70-105 high Not Availabl e [facility] Only - [facility] [address], [address], 05/26/2025 07:10:10 05/26/2005/26/2025 CMP calcium 9.4 mg/dL 8.6-10 .3 Not Available [facility] - [facility] [address], 0[address], 05/26/2025 07:10:10 05/26/2005/26/2025 CMP total protein 6.7 gm/dL 6.0-8. 3 Not Available [facility] - [facility] [address] [place] [address], 84257, 05/26/2025 07:10:10 05/26/2005/26/2025 CMP albumin 4.0 gm/dL 3.5-5. 7 Not Available [facility] - [facility] [address] [place] [address], 18993, 05/26/2025 07:10:10 05/26/2005/26/2025 CMP bilirubin (total) 0.7 mg/dL 0.3-1. 0 Not Available [facility] - [facility] [address] [place] [address], 19734, 05/26/2025 07:10:10 05/26/2005/26/2025 CMP AST 23 IU/L 13-39 Not Available [facility] - [facility] [address] [place] [address], 68499, 05/26/2025 07:10:10 05/26/2005/26/2025 CMP alk phos 135 IU/L 34-104 high Not Availab le [facility] Only - [facility] [address] [place] [address], 10365, 05/26/2025 07:10:10 05/26/2005/26/2025 CMP ALT 16 IU/L 7-52 Not Available [facility] - [facility] [address] [place] [address], 36946, 05/26/2025 07:10:10 05/26/2005/26/2025 CMP anion gap 9 8-16 Anion gap calcu lated using formu la: Na - (Cl + CO2) Measu red total CO2 is used in place of HCO3 Not Available [place] Only - [address], [address], 05/26/2025 07:10:10 05/26/20 25 05/26/2025 DIFF neutrophils 60 % 47-67 Not Avai lable [place] Only - [address], 69995, 05/26/2025 06:44:31 05/26/20 25 05/26/2025 DIFF lymphocytes 27 % 25-45 Not Avai lable [facility] Only - [address], 39247, 05/26/2025 06:44:31 05/26/20 25 05/26/2025 DIFF monocytes 9 % 1-9 Not Availa ble [place] Only - [address], 95184, 05/26/2025 06:44:31 05/26/20 25 05/26/2025 DIFF eosinophils 3 % 0-6 Not Avai lable [place] Only - [address], 12027, 05/26/2025 06:44:31 05/26/20 25 05/26/2025 DIFF basophils 1 % 0-2 Not Availa ble [place] Only - [address], 56466, 05/26/2025 06:44:31 05/26/20 25 05/26/2025 DIFF absolute neutrophils 5.1 K/cum m 1.8-6. 5 Not Available [place] [facility] - [address], 96835, 05/26/2025 06:44:31 05/26/20 25 05/26/2025 DIFF absolute lymphocytes 2.2 K/cum m 0.9-3. 0 Not Available [place] [facility] - [address], 67978, 05/26/2025 06:44:31 05/26/2005/26/2025 DIFF absolute monocytes 0.8 K/cum m 0.2-0. 8 Not Available [facility] [address] [place] [address], 44138, 05/26/2025 06:44:31 05/26/2005/26/2025 DIFF absolute eosinophils 0.3 K/cum m 0.0-0. 4 Not Available [facility] [address] [place] [address], 04142, 05/26/2025 06:44:31 05/26/2005/26/2025 DIFF absolute basophils 0.1 K/cum m 0.0-0. 2 Not Available [facility] [address] [place] [address], 70063, 05/26/2025 06:44:31 05/26/2005/26/2025 CBC W/ AUTO DIFF WBC 8.4 K/cum m 3.4-9. 4 Not Available [facility] [address] [place] [address], 20210, 05/26/2025 06:44:29 05/26/2005/26/2025 CBC W/ AUTO DIFF RBC 4.05 M/cum m 4.20-5 .40 low Not Available [facility] [address] [place] [address], 61385, 05/26/2025 06:44:29 05/26/2005/26/2025 CBC W/ AUTO DIFF hemoglobin 11.2 gm/dL 12.0-1 6.0 low Not Available [facility] [address] [place] [address], 29948, 05/26/2025 06:44:29 05/26/20 25 05/26/2025 CBC W/ AUTO DIFF hematocrit 33 % 37-47 low Not Available [facility] [address] [place] [address], 71976, 05/26/2025 06:44:29 05/26/2005/26/2025 CBC W/ AUTO DIFF MCV 81 81-94 Not Available [facility] [address] [place] [address], 91804, 05/26/2025 06:44:29 05/26/2005/26/2025 CBC W/ AUTO DIFF MCH 27.6 pg 27.5-3 3.2 Not Available [facility] [address] [place] [address], 05723, 05/26/2025 06:44:29 05/26/2005/26/2025 CBC W/ AUTO DIFF MCHC 34.0 g/dL 31.0-3 6.0 Not Available [place] [facility] - [address], 45118, 05/26/2025 06:44:29 05/26/2005/26/2025 CBC W/ AUTO DIFF RDW 14.4 % 11.7-1 5.5 Not Available [place] [facility] - [address], 51657, 05/26/2025 06:44:29 05/26/2005/26/2025 CBC W/ AUTO DIFF platelets 280 K/cum m 140-41 0 Not Available [facility] - [address], 45741, 05/26/2025 06:44:29 05/26/2005/26/2025 CBC W/ AUTO DIFF MPV 8.4 mL Not Available [facility] - [address], 63218, 05/26/2025 06:44:29 06/07/2006/07/2025 CBC CBC Not Available [facility] [address] [place] [address], 32654, 06/07/2025 19:14:12 06/07/2006/07/2025 CBC WBC 5.9 K/uL 3.8-11 .2 Not Available [facility] [address] [place] [address], 83760, 06/07/2025 19:14:12 06/07/2006/07/2025 CBC RBC 4.18 M/uL 3.92-5 .10 Not Available [facility] [address] [place] [address], 80723, 06/07/2025 19:14:12 06/07/2006/07/2025 CBC HGB 11.5 g/dL 11.8-1 5.3 low Not Available [facility] [address] [place] [address], 61318, 06/07/2025 19:14:12 06/07/2006/07/2025 CBC HCT 35.2 % 36.5-4 4.8 low Not Available [facility] [address] [place] [address], 38468, 06/07/2025 19:14:12 06/07/2006/07/2025 CBC MCV 84.2 fL 80.0-9 9.0 Not Available [facility] [address] [place] [address], 55181, 06/07/2025 19:14:12 06/07/2006/07/2025 CBC MCH 27.5 pg 25.5-3 3.6 Not Available [facility] [address] [place] [address], 80316, 06/07/2025 19:14:12 06/07/2006/07/2025 CBC MCHC 32.7 g/dL 32.0-3 6.0 Not Available [facility] [address] [place] [address], 41525, 06/07/2025 19:14:12 06/07/2006/07/2025 CBC RDW-SD 39.6 fL 35.1 - 46.3 Not Available [facility] - [facility] [address] [place] [address], 93678, 06/07/2025 19:14:12 06/07/2006/07/2025 CBC plt 272 K/uL 130-40 0 Not Available [facility] [address] [place] [address], 39705, 06/07/2025 19:14:12 06/07/2006/07/2025 CBC MPV 9.9 fL 9.3-12 .8 Not Available [facility] [address] [place] [address], 98640, 06/07/2025 19:14:12 06/07/2006/07/2025 urina lysis , compl ete urinalysis, complete LOW LEVEL S OF HEMOG LOBIN IN ABSEN CE OF HEMAT URIA MAY NOT BE CLINI MARCOS SIGNI FICAN T. Not Available [facility] - [facility] [address] [place] [address], 76163, 06/07/2025 19:21:12 06/07/2006/07/2025 urina lysis , compl ete color DARK YELLOW Dipst ick may be inacc urate due to the color of the urine Not Available [facility] [address] [place] [address], 03960, 06/07/2025 19:21:12 06/07/2006/07/2025 urina lysis , compl ete clarity CLEAR Not Available [facility] [address] [place] [address], 73838, 06/07/2025 19:21:12 06/07/2006/07/2025 urina lysis , compl ete pH 7.0 5.0-7. 5 Not Available [facility] [address] [place] [address], 99178, 06/07/2025 19:21:12 06/07/2006/07/2025 urina lysis , compl ete specific gravity 1.010 1.000- 1.030 Not Available [facility] [address] [place] [address], 77019, 06/07/2025 19:21:12 06/07/2006/07/2025 urina lysis , compl ete blood NEGATI VE negati ve Not Available [facility] [address] [place] [address], 62194, 06/07/2025 19:21:12 06/07/2006/07/2025 urina lysis , compl ete bilirubin NEGATI VE negati ve Not Available [facility] [address] [place] [address], 74490, 06/07/2025 19:21:12 06/07/2006/07/2025 urina lysis , compl ete urobilinogen 1.0 0.2-1. 0 Not Available [facility] [address] [place] [address], 91464, 06/07/2025 19:21:12 06/07/2006/07/2025 urina lysis , compl ete ketone NEGATI VE negati ve Not Available [facility] [address] [place] [address], 10208, 06/07/2025 19:21:12 06/07/2006/07/2025 urina lysis , compl ete glucose NEGATI VE negati ve Not Available [facility] [address] [place] [address], 87587, 06/07/2025 19:21:12 06/07/2006/07/2025 urina lysis , compl ete protein NEGATI VE negati ve Not Available [facility] [address] [place] [address], 48903, 06/07/2025 19:21:12 06/07/2006/07/2025 urina lysis , compl ete nitrite POSITI VE negati ve abnormal Not Available [facility] [address] [place] [address], 49585, 06/07/2025 19:21:12 06/07/20 25 06/07/2025 urina lysis , compl ete leukocytes 1+ negati ve abnormal Not Available [facility] [address] [place] [address], 95556, 06/07/2025 19:21:12 06/07/20 25 06/07/2025 urina lysis , compl ete review * Micro scopi c resul ts revie wed by [employer] . Not Available [facility] [address] [place] [address], 35849, 06/07/2025 19:21:12 06/07/20 25 06/07/2025 urina lysis , compl ete RBC 0-2 0-2/hp f Not Available [facility] [address] [place] [address], 71488, 06/07/2025 19:21:12 06/07/20 25 06/07/2025 urina lysis , compl ete WBC 0-5 0-5/hp f Not Available [facility] [address] [place] [address], 56401, 06/07/2025 19:21:12 06/07/20 25 06/07/2025 urina lysis , compl ete WBC. CONFI Cell count s confi rmed by [employer] . Not Available [facility] [address] [place] [address], 99554, 06/07/2025 19:21:12 06/07/20 25 06/07/2025 urina lysis , compl ete squamous epithelial 3-5 0-10/h pf Not Available [facility] [address] [place] [address], 44792, 06/07/2025 19:21:12 06/07/20 25 06/07/2025 urina lysis , compl ete bacteria NONE SEEN none Not Available [facility] [address] [place] [address], 16009, 06/07/2025 19:21:12 06/07/20 25 06/07/2025 urina lysis , compl ete hyaline cast 0-2 0-2/lp f Not Available [facility] [address] [place] [address], 95265, 06/07/2025 19:21:12 06/07/20 25 06/07/2025 renal funct ion panel , serum renal function panel Not Available [facility] [address] [place] [address], 28360, 06/07/2025 19:42:24 06/07/20 25 06/07/2025 renal funct ion panel , serum sodium 140 mmol/ L 136-14 6 Not Available [facility] [address] [place] [address], 57512, 06/07/2025 19:42:24 06/07/20 25 06/07/2025 renal funct ion panel , serum potassium 4.0 mmol/ L 3.5-5. 1 Not Available [facility] [address] [place] [address], 45017, 06/07/2025 19:42:24 06/07/20 25 06/07/2025 renal funct ion panel , serum chloride 106 mmol/ L 98-110 Not Available [facility] [address] [place] [address], 14262, 06/07/2025 19:42:24 06/07/20 25 06/07/2025 renal funct ion panel , serum CO2 25 mEq/L 20-32 Not Available [facility] [address] [place] [address], 71394, 06/07/2025 19:42:24 06/07/20 25 06/07/2025 renal funct ion panel , serum anion gap 13 mmol/ L 10-22 Not Available [facility] [address] [place] [address], 36661, 06/07/2025 19:42:24 06/07/20 25 06/07/2025 renal funct ion panel , serum glucose 188 mg/dL 70-100 high Not Available [facility] [address] [place] [address], 74884, 06/07/2025 19:42:24 06/07/20 25 06/07/2025 renal funct ion panel , serum calcium 9.5 mg/dL 8.4-10 .4 Not Available [facility] [address] [place] [address], 10223, 06/07/2025 19:42:24 06/07/20 25 06/07/2025 renal funct ion panel , serum albumin 4.1 g/dL 3.5-5. 3 Not Available [facility] [address] [place] [address], 55921, 06/07/2025 19:42:24 06/07/20 25 06/07/2025 renal funct ion panel , serum phosphorus 3.1 mg/dL 2.7-4. 5 Not Available [facility] [address] [place] [address], 70392, 06/07/2025 19:42:24 06/07/20 25 06/07/2025 renal funct ion panel , serum BUN 15 mg/dL 7-21 Not Available [facility] [address] [place] [address], 82246, 06/07/2025 19:42:24 06/07/20 25 06/07/2025 renal funct ion panel , serum creatinine 0.9 mg/dL 0.7-1. 3 Not Available [facility] [address] [place] [address], 75290, 06/07/2025 19:42:24 06/07/20 25 06/07/2025 renal funct ion panel , serum CKD-epi GFR 76 eGFR was calcu lated using the 2020 CKD-E PI equat ion. (County Surveyor andree Pinzon y Disea se has an eGFR less than 60 mL/mi n/1.7 3mm for a perio d of three month s or more. ) This calcu latio n has not been valid ated for patie nt ages <18 or >90 years old. Not Available [facility] [address] [place] [address], 68574, 06/07/2025 19:42:24 06/07/2006/08/2025 micro album in, urine microalbumin ,random panel Not Available [facility] [address] [place] [address], 28155, 06/08/2025 10:13:00 06/07/2006/08/2025 micro album in, urine microalbumin random 0.5 mg/dL Not Available [facility] [address] [place] [address], 86152, 06/08/2025 10:13:00 06/07/2006/08/2025 micro album in, urine creatinine, urine random 37 mg/dL Refer ence range not estab lishe d for other than 24 hour colle ction . Not Available [facility] [address] [place] [address], 17565, 06/08/2025 10:13:00 06/07/2006/08/2025 micro album in, urine [...] in or Creat inine .) Not Available [facility] [address] [place] [address], 87466, 06/08/2025 10:13:00 06/07/20 25 06/08/2025 C4 (comp lemen t), serum or plasm a complement C4 44 mg/dL 12-38 high Not Available [facility] [address] [place] [address], 52932, 06/08/2025 14:11:19 06/07/20 25 06/08/2025 C3 (comp lemen t), serum or plasm a complement C3 201 mg/dL 82-167 high Not Available [facility] [address] [place] [address], 74823, 06/08/2025 14:11:20 06/07/20 25 06/08/2025 ADALBERTO (anti nucle ar antib odies ) scree n, serum ADALBERTO screen NEGATI VE negati ve Perfo rmed by Bio[employer] ad enzym e immun oassa y Not Available [facility] [address] [place] [address], 50556, 06/08/2025 15:48:52 06/07/20 25 06/09/2025 cultu re [...] resis tant inter preta tion Not Available [facility] [address] [place] [address], 01026, 06/09/2025 09:46:55 06/07/2006/09/2025 immun ofixa tion, serum immunofixati on, serum No monoc lonal ity detec michelle. Not Available [facility] [address] [place] [address], 41276, 06/09/2025 15:12:43 06/07/2006/09/2025 immun ofixa tion, serum IgG quantitative 1147 mg/dL 586-16 02 Not Available [facility] [address] [place] [address], 46524, 06/09/2025 15:12:43 06/07/2006/09/2025 immun ofixa tion, serum IgA quantitative 393 mg/dL 87-352 high Not Available [facility] [address] [place] [address], 10407, 06/09/2025 15:12:43 06/07/2006/09/2025 immun ofixa tion, serum IgM quantitative 80 mg/dL -217 Not Available [facility] [address] [place] [address], 03285, 06/09/2025 15:12:43 06/07/2006/12/2025 anca panel , serum anca, complete Not Available [facility] [address] [place] [address], 38175, 06/12/2025 20:10:54 06/07/2006/12/2025 anca panel , serum myeloperoxid ase Ab <0.2 units 0.0-0. 9 Not Available [facility] [address] [place] [address], 75420, 06/12/2025 20:10:54 06/07/2006/12/2025 anca panel , serum proteinase-3 Ab, anca <0.2 units 0.0-0. 9 Not Available [facility] [address] [place] [address], 54268, 06/12/2025 20:10:54 06/07/2006/12/2025 anca panel , serum C-anca titer <1:20 titer neg:<1 :20 Not Available [facility] [address] [place] [address], 13113, 06/12/2025 20:10:54 06/07/2006/12/2025 anca panel , serum [...] ng of posit marquis sera with both KS-3 and MPO-A NCA enzym e immun oassa ys. As many as 5% serum sampl es are posit marquis only by EIA. Ref. AM J Clin Patho l 1999; 111:5 07-51 3. Not Available [facility] [address] [place] [address], 90153, 06/12/2025 20:10:54 06/07/2006/12/2025 anca panel , serum atypical P anca titer <1:20 titer neg:<1 :20 The atypi radha pANCA patte rn has been obser elva in a signi fican t perce ntage of patie nts with ulcer ative colit is, prima ry scler osing chola ngiti s and autoi mmune hepat itis. Not Available [facility] [address] [place] [address], 22532, 06/12/2025 20:10:54 06/07/20 25 06/07/2025 UE urine eosinophils NEGATI VE Not Available [facility] - [facility] [address] [place] [address], 32938, 06/07/2025 23:40:52 06/07/20 25 06/08/2025 cultu re + sensi tivit y, urine urine culture and sens. PREL IM URINE GRAM NEGAT MARQUIS RODS DATE/ TIME: 06/08 10:17 >100, 000 CFU/m L Not Available [facility] [address] [place] [address], 46008, 06/08/2025 11:18:58 05/07/20 25 05/07/2025 CT, abdom en + pelvi s, w/o contr ast [facility] [address] [place] [address] Name: TL WHITE Age: 54 : 1970 Exam Date: 2024 ACCESS ION: [id number] BLAISE CALDERA MD: ANKUSH JOEL EXAM: CT [...] in mGy: 38.78 DLP in mGy-cm : 1910.7 COMPAR RAS: CT pelvis with contra st [...] the subcut aneous as fat of the group controller ior abdomi nal wall/u pper glutea l [...] : 17:57 Leonardo FREEDMAN, Shelley Hussein INTERFACE [facility] Only - [facility] [address] [place] [address], 72866, 05/07/2025 19:01:25 05/18/[address] 25 [address], abdom en + pelvi s, w/ contr ast [facility] [address] [place]. [address] ------ ---NAM E----- ---- NUMBER SEX AGE ADMIT DISC. XRAY# F/C TYPE ZEKE BOOTHE EN P [id number] [phone] [id number] GIL E/R DATE OF : 1970 M/R# [id number] PH#: [id number] LOCATI ON: TRANSC RIBED: 6:22 CT ABD PELVIS [place] 13674 COMPLE MICHELLE: 4:39 TSY [id number] {REASO N FOR PROCED URE: Abdomi nal [...] at the gallbl adder surgic al bed. Electr onical ly Signed By: SHADI Nieto MD , Date/T blayne: 06:22 INTERFACE Sc Only - [facility] [address] [place], [address], 05/18/2025 07:26:44 05/21/20 25 05/21/2025 imagi ng/di agnos tic resul t No observ ation record ed. [email or web address] [facility] - Radiology [address] [facility], [place], [address], 05/23/2025 13:18:15 05/22/20 25 05/13/2025 US, doppl er echoc ardio gram No observ ation record ed. BARCODE Not Available 2024 16:02:31 05/26/20 25 05/26/2025 D chest 1 view [facility] [address] [place] [address] [phone] Name: TL WHITE Age: 54 : 1970 Exam Date: 2024 ACCESS ION: [id number] ORDERSheron CALDERA MD: ISABELLA GARCES EXAM: Chest single [...] Sergo Hebert MD INTERFACE Sc Only - [facility] Rad [address], [place], [address], 05/26/2025 07:48:51 05/26/2005/26/2025 XR, chest , 2 view No observ ation record ed. [facility] [facility] (Radiology) [address] , [place], [address], 05/26/2025 14:34:26 05/28/20 CT head scan w/o contr ast [facility] [address] [place]. [address] ------ ---NAM E----- ---- NUMBER SEX AGE ADMIT DISC. XRAY# F/C TYPE ZEKE BOOTHE EN P [id number] F 54 5 [id number] GIL E/R DATE OF : 1970 M/R# [id number] PH#: [id number] [phone] LOCATI ON: TRANSC RIBED: 14:29 CT HEAD SCAN W/[place] [address] COMPLE MICHELLE: 13:58 TSY [id number] {REASO N FOR PROCED URE: Headac he [...] was dictat ed remote ly by a [facility] Radiol ogist in [place], [place]. Electr onical ly Signed By: MEET BROWN MD , Date/T blayne: 14:29 INTERFACE Sc Only - [facility] Rad [address] [place], [address], 05/28/2025 15:32:34 05/28/[address], cervi radha spine , w/o contr ast [facility] [address] [place]. [address] ------ ---NAM E----- ---- NUMBER SEX AGE ADMIT DISC. XRAY# F/C TYPE ZEKE JUANLEESAAlie EN P [id number] F 54 5 [id number] GIL E/R DATE OF : 1970 M/R# [id number] PH#: [phone] LOCATI ON: TRANSC RIBED: 14:31 CT C-[place] [address] COMPLE MICHELLE: 13:58 TSY [id number] {REASO N FOR PROCED URE: Neck Pain [...] was dictat ed remote ly by a [facility] Radiol ogist in [place], [place]. Electr onical ly Signed By: MEET BROWN MD , Date/T blayne: 14:31 INTERFACE Wa Only - [facility] Rad [address], [place], [address], 05/28/2025 15:35:09 05/28/[address], thora cic spine , w/o contr ast [facility] [address] [place]. [address] ------ ---NAM E----- ---- NUMBER SEX AGE ADMIT DISC. XRAY# F/C TYPE RICE TL EN P [id number] F 54 5 [id number] GIL E/R DATE OF : 1970 M/R# [id number] PH#: [phone] LOCATI ON: TRANSC RIBED: 14:35 CT THORAC IC SPINE W/O CONTRA [id number] 8 COMPLE MICHELLE: 13:58 TSY [id number] {REASO N FOR PROCED URE: Pain PHYSIC [...] was dictat ed remote ly by a [facility] Radiol ogist in [place], [place]. Electr onical ly Signed By: MEET BROWN MD , Date/T blayne: 14:35 INTERFACE Sc Only - [facility] Rad [address] [place], [address], 05/28/2025 15:38:22 06/05/20 25 06/03/2024 CT, angio gram, chest , w/ contr ast No observ ation record ed. [email or web address] Not Available 2024 16:05:59 06/07/20 25 06/07/2025 XR, chest , [address] [address] Teleph one [phone] Name: TL WHITE [id number] am Date: 2024 [...] 3:01 PM cc: Page PAGE 1 of [facility] 1 MIKE Sc Only - [facility] [address] [place] [address], [address], 06/08/2025 14:33:15 07/27/20 25 07/27/2025 CT, abdom en + pelvi s, w/ contr ast [facility] [address] [place] [address] [phone] Name: TL WHITE Age: 54 : 1970 Exam Date: 2024 ACCESS ION: [id number] ORDERI WERNER MD: MILE HO[place]ORTH EXAMIN ATION: [...] soft tissue nodule s and dystro phic group controller ior soft tissue calcif icatio ns, contin [...] 20:47 Final Report Dictat ed: 20:47 Scrogg Mayuri louis MD, RES Signed : 20:47 Tye hernandez MD, Isabella EGAN [facility], [facility] - [facility] Rad [address] [place] [address], [address], 07/27/2025 21:51:11 08/01/20 25 08/01/2025 imagi ng/di agnos tic resul t No observ ation record ed. [facility] - Radiology [address] [facility], [place], [address], 08/01/2025 17:37:33 08/03/20 25 08/03/2025 D abdom en [address] [facility] [address] [place] [address] Name: TL WHITE Age: 54 : 1970 Exam Date: 2024 ACCESS ION: [id number] ORDERI WERNER MD: BRIDGET BOWLES EXAM: Abdome n, 1 [...] Signed : 20:05 Juwan Metzger MD INTERFACE [facility] - [facility] Rad [address] [place] [address], [address], 08/03/2025 21:09:24 08/20/20 25 08/20/2025 D abdom en [address] [facility] [address] [place] [address] Name: TL WHITE Age: 54 : 1970 Exam Date: 2024 ACCESS ION: [id number] BLAISE CALDERA MD: ANKUSH JOEL EXAMIN ATION: Abdome n 1 View HISTOR Y: Compla int of abdome n pain x days. abd pain n/v COMPAR RAS: 2024 FINDIN GS: Nonobs tructi ve bowel gas patter n. Modera te stool burden . Right upper quadra nt surgic al clips. No acute osseou s abnorm ality. IMPRES KHALIDA: Nonobs tructi ve bowel gas patter n and modera te stool burden . This report was dictat ed remote ly by a [facility] Radiol ogist in [place], [place]. /CS:cs D: 2024 16:08 T: 2024 16:08 Final Report Dictat ed: 16:08 Minna Underwood MD Signed : 16:08 Minna Underwood MD INTERFACE Wa Only - [facility] Rad [address] [facility], [place], [address], 08/20/2025 17:11:56 09/05/20 25 09/05/2025 elect jennie diogr am, routi ne ECG, 12 leads min No observ ation record ed. INTERFACE Sc Only - [facility] [address] [address], [place], [address], 09/05/2025 15:23:33 09/05/20 25 08/18/2025 imagi ng/di agnos tic resul t No observ ation record ed. [address] [facility]iology [address], [place], [address], 09/05/2025 17:07:07 09/05/20 25 08/18/2025 CT, abdom en + pelvi s, w/ contr ast No observ ation record ed. [facility] [address], [place], [address], 09/05/2025 18:33:06 Result Notes Documentation Provider Name and Address Organization Details Recorded Time Xr, Chest, 2 View : [address] [address] Name: LETI WHITE Date: 06/07/2025 Age: 54Physician: [...] 1 of NUMPAGES 1 Carrol Villagomez MD [address] [place] [address], [phone], [facility] 06/08/2025 12:48:14 Problems Name Problem SNOMED Code Status Onset Date Resolution Date Notes Provider Name and Address Organization Details Recorded Time Migraine 12859108 Active 2020 Not Available [facility] 22:06:56 Hypertens marquis disorder 65498484 Active 2020 Not Available [facility] 22:06:56 Atypical squamous cells of undetermi tiffanie significa nce on cervical Papanicol aou smear 443303239 Active 2020 Not Available [facility] 5 22:06:56 Second degree uterine prolapse 5614403 Active 2022 Not Available [facility] 5 22:06:56 Chest pain 60346684 Active 2022 Not Available [facility] 5 22:07:15 Preinfarc tion syndrome 5476470 Active 2022 Not Available [facility] 5 22:07:58 Coronary arteriosc lerosis 78245819 Active 2023 Not Available [facility] 5 22:06:26 Essential hypertens ion 32805316 Active 2023 Not Available [facility] 5 22:06:26 Hyperchol esterolem ia 26343495 Active 2023 Not Available [facility] 5 22:06:26 Abdominal pain 02393214 Active 2023 Not Available [facility] 5 22:08:28 Thoracic radiculop athy 93559301 Active 2023 Not Available [facility] 5 22:07:18 Cervical radiculop athy 70074156 Active 2023 Not Available [facility] 5 22:07:18 Lumbar spondylos is 496150655 Active 2023 Not Available [facility] 5 22:07:18 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 54577079138 9106 Active 2023 following with endocrino logy Not Available [facility] 5 22:07:26 Spinal arachnoid cyst 995852146 Active 2023 Not Available [facility] 5 22:07:42 Morbid obesity 184400506 Active 2024 Not Available [facility] 5 22:08:30 Gastropar esis syndrome 728917076 Active 2024 Not Available [facility] 5 22:08:30 Gastroeso phageal reflux disease 636296273 Active 2024 Not Available [facility] 5 22:08:30 Dyspnea 758806912 Active 2024 Not Available [facility] 5 22:10:22 Pain of left shoulder region Active 2024 Not Available [facility] 5 22:10:22 Bilateral cramp of muscle of lower limbs 65649554613 876368 Active 2024 Not Available [facility] 5 22:10:22 Fibromyal chuck 918121373 Active 2024 Not Available [facility] 5 22:08:30 Recurrent major depressio n in remission 09214359 Active 2024 Not Available [facility] 5 22:08:30 Primary insomnia 8620273 Active 2024 Not Available [facility] 5 22:08:30 Swelling of lower limb 106838262 Active 2024 Not Available [facility] 5 22:08:41 Palpitati ons 69732089 Active 2024 Not Available [facility] 5 22:09:22 Dyspnea on exertion 23745914 Active 2024 Not Available [facility] 5 22:11:38 Hyperlipi demia 09184779 Active 2024 Not Available [facility] 5 22:09:44 Edema of lower extremity 583581872 Active 2024 Not Available [facility] 5 22:09:44 Persisten t depressiv e disorder 6395412592 Active 2024 Not Available [facility] 5 22:09:45 Restless legs syndrome 51569432 Active 2024 Not Available [facility] 5 22:09:45 Atypical chest pain 213747148 Active 2024 Not Available [facility] 5 22:12:17 Anemia 278047731 Active 2024 Not Available [facility] 5 22:12:35 Acute kidney injury 44611853 Active 2024 Not Available [facility] 5 22:12:35 Mycosis 1712607 Active 2024 Not Available [facility] 5 22:10:03 Obstructi ve sleep apnea syndrome 33517451 Active 2024 Not Available [facility] 5 22:10:20 Acute urinary tract infection 883571058 Active 2024 Not Available [facility] 22:10:25 Alpha-1-a ntitrypsi n deficienc y 75273791 Active 2024 Not Available [facility] 5 22:10:34 Supravent ricular tachycard ia 5423482 Active 2024 Not Available [facility] 22:10:35 Abdominal discomfor t 27413897 Active [address] [facility] 5 10:28:59 Screening colonosco py Active [address] [facility] 5 10:34:05 Notes:Some problems listed i n Documents: #[id number], #[id number], #[id number] could not be added to this patient's [...] Name and Address Organization Details Recorded Time 4598838 fentanyl medicatio n headache Not available Not available 10/14/20232012 4337 RxNorm React ion: Heada syeda; Nause a; Vomit ing; Comme nt: React ion Date: 23 Aug 2013 Annot ation s: PHILLY STINSONSHREYAEN 10Dec 2012 9:08P M Per pt repor t.; ; Brenda Natarajan [facility] 5 14:41:09 1699767 prochlorp erazine medicatio n anxiety Not available Not available 05/13/20242017 [address] [facility] 5 11:23:17 9618172 sumatript an medicatio n itching Not available Not available 05/13/20242017 [address] [facility] 5 14:41:28 3582723 metoclopr amide Not available other Not available Not available 05/13/20242022 [address] [facility] 5 14:41:18 6685528 diphenhyd ramine hydrochlo ride medicatio n anxiety rash Not available Not available Not available 05/13/20242017 [address] [facility] 5 11:23:17 3232966 Duragesic medicatio n headache Not available Not available 06/22/20242012 36163 8 RxNorm React ion: Heada syeda; Nause a; Vomit ing; Comme nt: React ion Date: 23 Aug 2013 Annot ation s: JUVENCIO SIEGEL 10Dec 2012 9:08P M Per pt repor t.; ; Brenda Natarajan [facility] 5 14:41:05 9427823 Compazine medicatio n other Not available Not available 11/02/2024 99336 6 RxNorm irrit abili ty Brenda Natarajan [facility] 5 14:41:50 3934011 Imdur medicatio n anxiety insomnia Not available Not available [facility] 05/30/2025 23940 2 RxNorm Melissa Macias PA-C [address], [place], [address] [place] [address] 5 10:19:27 311221 Biaxin medicatio n nausea Not available Not available 10/12/20232006 60082 9 RxNorm React ion: Nause a; Not Available [facility] 4 21:45:38 789752 sumatript an succinate medicatio n Not available Not available Not available 10/12/20232006 96195 RxNorm React ion: Short ness of breat h; Arrhy thmia ; Not Available [facility] 4 21:45:39 952410 ciproflox acin hydrochlo ride medicatio n Not available Not available Not available 10/12/20232006 34179 RxNorm React ion: Synco pe; Short ness of breat h; Brendaaraseli Natarajan [facility] 5 14:40:56 865598 Demerol medicatio n Not available Not available Not available 10/12/20232008 34236 1 RxNorm Comme nt: Annot ation s: GRUND Y, BRAND ON 2008 3:38P M NAUSE A; ; Brenda Natarajan [facility] 5 14:40:59 854860 morphine sulfate medicatio n Not available Not available Not available 10/12/20232008 97648 RxNorm Comme nt: Annot ation s: GRUND Y, BRAND ON 2008 3:39P M NAUSE A; ; Brenda Natarajan [facility] 5 14:41:15 098552 hydromorp basim hydrochlo ride medicatio n Not available Not available Not available 10/12/20232008 92806 7 RxNorm Comme nt: Annot ation s: GRUND Y, BRAND ON 2008 3:39P M NAUSE A; ; Brenda Natarajan [facility] 5 14:41:12 Medications Name Sig Start Date [...] Available Not Available Not Available Dexcom G7 Administrative Nursing Supervisor USE PER MANUFACT URER DIRECTIO NS 09/05 [...] Updated DateTime 06/07/2025 170.18 cm 42.4 kg/m2 708081.5 3 g 92 /min 126/64 mm[Hg] Lawrence [facility] 06/07/2025 15:10:01 Social History Question Answer Notes [...] Do You Have A Medical Power Of Steam And Power Supervisor? Yes [email or web address] Information not available 06/13/2024 What Was The Date Of Your Most Recent Tobacco Screening? 07/04/2025 [email or web address] Information not available 07/04/2025 What Is Your Relationship Status? [email or web address] Information not available 06/13/2024 Has Tobacco Cessation Counseling Been Provided? Yes [email or web address] Information not available 03/28/2025 On What Date Was Tobacco Cessation Counseling Provided? 03/28/2025 Information not available 03/28/2025 Sex: Unknown Functional [...] MDCK, trivalent, PF [address] [facility] 09/05/2025 13:00:50 Influenza, recombinant, quadrivalent, PF [address] [facility] 11/02/2024 14:40:15 Influenza, recombinant, quadrivalent, PF [address] [facility] 11/02/2024 14:40:15 zoster recombinant [address] [facility] 11/02/2024 14:40:15 zoster recombinant [address] [facility] 11/02/2024 14:40:15 COVID-19, mRNA, LNP-S, PF, 100 mcg/0.5mL dose or 50 mcg/0.25mL dose [address] [facility] 11/02/2024 14:40:15 COVID-19, mRNA, LNP-S, PF, 100 mcg/0.5mL dose or 50 mcg/0.25mL dose [address] [facility] 11/02/2024 14:40:15 COVID-19, mRNA, LNP-S, PF, 100 mcg/0.5mL dose or 50 mcg/0.25mL dose [address] [facility] 11/02/2024 14:40:15 pneumococcal polysaccharide PPV23 [address] [facility] 11/02/2024 14:40:15 influenza, unspecified formulation [address] [facility] 11/02/2024 14:40:15 influenza, unspecified formulation [address] [facility] 11/02/2024 14:40:15 influenza, unspecified formulation [address] [facility] 11/02/2024 14:40:15 Tdap [address] [facility] 11/02/2024 14:40:15 Influenza, split virus, trivalent, preservative [address] [facility] 11/02/2024 14:40:15 Influenza, split virus, quadrivalent, PF [address] [facility] 11/02/2024 14:40:15 Past Encounters Encounter ID Performer Location Encounter Start Date Encounter Closed Date Diagnosis/Indication Diagnosis SNOMED-CT Code Diagnosis ICD10 Code Diagnosis IMO Codes Diagnosis Note [id number] Melissa Macias PA-C [facility] ([place]) [facility] [place] [address] 05/30/2025 09:44:32 05/30/2025 14:35:57 Primary insomnia 1450226 F51.01 90785 Dyspnea on exertion 6084 5006 R06.09 172785 Fibromyalgia 700890224 M 79.7 05362 Pain of le ft shoulder region 8164152632 M25.512 46886948 Migraine 10729192 G43.90 9 Obstructiv e sleep apnea syndrome 54403755 G47.33 [id number] Carrol Villagomez MD [facility] ([place]) [address] [facility] [place] [address] 06/05/2025 15:41:18 06/05/2025 16:01:50 Dyspnea 875718294 R06.02 R06.00 23939 [id number] Uncertain as to the etiology of her [...] results of the CT scan performed at [facility] this past spring. Addendum, CTA of the chest from 06/03/2024 at [facility] showed unremarkab le pulmonary findings. She has some scattered linear atelectasi s, no consolidat ion, nodule or fluid. No mediastina l or hilar adenopathy . There was significan t coronary artery disease noted on that study. Obstructiv e sleep apnea syndrome 37051387 G47.33 02957 She has a longstandi ng history of sleep apnea diagnosed about 20 years ago down in [place] at an unknown institutio n. Is not on any treatment at this time. I do suspect she does have significan t sleep apnea that is contributi ng to her symptomato logy and we will get her worked up with a split-nigh t sleep study and trial PAP if positive. [id number] SADE [facility] ([place]) [address] [facility] [place] [address] 06/07/2025 14:55:39 06/07/2025 17:49:29 Acute kidney injury 03803903 N17.9 [id number] Health Concerns Section Related Observation LastModified by Organization Detai ls LastModified Time None Recorded Concern Status LastModified by Organization Details LastModified Time None Recorded Payers Encounter Date Sequence Insurance Name Policy Number Policy Garcia Covered Member ID Garcia Member ID Guarantor Name 06/07/2025 2 [place] [employer] Leti White [id number] Leti White 06/07/2025 1 [facility] (MEDICARE REPLACEMENT/A DVANTAGE - PPO) [id number] Leti White [id number] Leti White Notes Date Note Type Note [...] in the hospital in April 2025 at [facility] for cellulitis and received IV vancomycin and [...] his . Delia Hall PA-C [address] [facility], [place], [address], [facility] 06/07/2025 16:14:26 OBGyn Episode No OBEpisode recorded.
--- OUTSIDE RECORDS SUMMARY | 2025-09-05 21:29 | XMS_ITS ---
Author Organization Unknown Address [address] [place] [phone] Phone Care Team Providers Care Patent Chemist Name Role Phone AYUSH SAM Registered Nurse Unavailable PREMA Kyle Attending Unavailable PINKY Kyle Primary Unavailable Results CT BRAIN HEAD WO CONTRAST - Completed: 01/22/2025 18:52 LOINC: [facility] [address] [address] Name: TERE ALANIS Exam: CT BRAIN HEAD WO CONTRAST Exam Date: 01/22/2025 : 1970 Acc#: [id number] Ordering: SHADI BOWMAN Referrer: BK VANCE EXAM [...] Noé Christensen M.D. KH: ROBERTH Report ID: [id number] Reading Location: [id number] Social History Type Status Start Date End Date Code Code Syst em Smoking History Never smoker (Never Smoked) 144135615 SNOMED CT Sex Female Vital Signs Vital Sign Value Unit Massac Value [place]ac Unit Date/Time Recent/Initial? Code Code System Body Mass Index 44.64 kg/m2 01/22/2025 18:18 Initial 55892 -5 LOINC Systolic Blood Pressure 144 mm[Hg] [...] Saturation 95 % 2024 20:45 Most Recent 10687 -5 LOINC O2 Saturation 96 % 2024 18:18 Initial 51297 -5 LOINC Pulse 66.0 /min 01/22/2025 20:45 Most Recent 8867- 4 LOINC Pulse 64.0 /min 01/22/2025 18:18 Initial 8867- 4 LOINC Respiration 17 /min 01/23/20 25 20:45 Most Recent 9279- 1 LOINC Respiration 18 /min 01/23/20 25 18:18 Initial 9279- 1 LOINC Temperature 36.8 Alexandrea 98.3 F 01/23/20 25 18:18 Initial 8310- 5 LOINC Weight 129.27 kg 285.00 lbs 01/22/2025 18:18 Initial 51551 -7 LOINC Medications Medication Start Date End Date Route Frequency Dose Code Code System Medication Instructions Home Meds Lidoderm 5% Topical application Patch, Extended Release 11/02/2024 02/28/2025 1 0347851 RxNorm 1 patch daily Zofran 4MG Oral Tablet 05/03/2025 Unknown ORAL EVERY 6 HOURS 1 TABLET 909262 RxNorm TAKE 1 TABLET ORAL EVERY 6 [...] Code Code System CHRONIC NECK PAIN active 228039645798 7 SNOMED-CT DISORDER OF ROTATOR CUFF active 477251665 SNOMED-CT SPRAIN OF LEFT SHOULDER active 01533535860053213 SNOMED-CT CHRONIC BACK PAIN active 629921614 SN OMED-CT CHRONIC MIGRAINE active 583302001 SNO MED-CT DIABETES active 22287654 SNOMED-CT GASTROPARESES active 660875708 SNOMED -CT ERIKA CELL NEOPLASM active 457569466 SNOMED-CT HYPERTENSION active 11817289 SNOMED- CT DRUG SEEKING BEHAVIOR active 17041047 SNOMED-CT MALINGERING active 45948965 SNOMED-C 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 10/24/2024 resolved 16400561 SNOMED-CT Allergies and Adverse Reactions Allergy Substance Reaction Severity Start Date Concern Status Code Code System PROCHLORPERAZINE go crazy (SNOMED-CT: null) Severe Active 8704 RxNorm ISOSORBIDE MONONITRATE SOB, anxiety (SNOMED-CT: null) Active 99394 RxNorm CLARITHROMYCIN Vomiting (SNOMED-CT: 261608481) Severe Active 69552 RxNorm BENADRYL went crazy (SNOMED-CT: null) Severe Active 338290 RxNorm IMITREX Tachycardia (SNOMED-CT: 8829570) Moderate Active 479484 RxNorm Plan of Treatment No Data Found Encounters Encounter Diagnosis Start Date Code Code Sys tem Migraine 01/22/2025 13774426 SNOMED-CT Personal Care Team Section Discharge Summary Notes CANDY [place] 01/22/2025 20:58 filter failed to render (id: '${filterNoteHistoryId}') filter failed to render (id: '${filterNoteHistoryId}') filter failed to render (id: '${filterNoteHistoryId}') ED Nursing Discharge Disposition Checklist Stop times completed in order chronology for all IV fluids / IVPB medications I & O's entered in vital signs Discharge [ x ] Home [ ] FDC [ ] Fci [ ] Left AMA [ ] AMA [...]
--- OUTSIDE RECORDS SUMMARY | 2025-09-05 21:29 | XMS_ITS | Continuity of Care Document ---
Author Organization [facility], [address] ([place]) Address [address] [place] [address] Care Team Providers Care Snack Stewardess Name Role Phone DRAKE FARRIS Sr. Media Manager PAULY VIZCAINO Primary Care Provider PAULY VIZCAINO Referring Provider [phone] DELIA HALL Toe Lining Closer Assessment No assessment recorded. Plan of Treatment [...] Abnormal Flag Note LastModifiedBy Organization Detail LastModifiedTime 08/13/2008/15/2025 C URINE urine culture (new) abnormal Print Date/ Time: 2024 09:50 MICROELECTRONICS ENGINEER Patie nt: JANINA WHITE P Micro biolo gy - Uroge nital Legen d: c=Cor recte d, F=Res ult Comme nt, S=Idalia cepti ble, I=Int ermed iate, R=Res istan t, N/A=N ot Appli cable PROCE DURE: Urine Cultu re [] ACCES LIA: [id number] SOURC E: Urine BODY SITE: COLLE CTED DATE/ TIME: 08/13 20:47 MICROELECTRONICS ENGINEER RECEI ELVA DATE/ TIME: 08/13 20:58 MICROELECTRONICS ENGINEER START DATE/ TIME: 08/13 20:58 MICROELECTRONICS ENGINEER FREE TEXT SOURC E: FI NAL REPOR TS Final Repor t [] Verif ied Date/ Time: 2024 09:50 MICROELECTRONICS ENGINEER 10,00 0 cfu/m l Gram Negat jozef Rods WA ELIMI NARY REPOR TS Preli minar y Repor t [] Verif ied Date/ Time: 2024 08:15 MICROELECTRONICS ENGINEER 10,00 0 cfu/m l Gram Negat jozef Rods Not Available Az Only - [facility] [place] [facility] [address], [address], 08/15/2025 10:50:29 08/13/2008/13/2025 UACS color Yellow Not Available Az Only - [facility] [place] [facility] [address] [place] [address], [id number], 08/13/2025 21:57:49 08/13/20 25 08/13/2025 UACS appearance Clear Not Avail able Az Only - [facility] [place] [facility] [address] [place] [address], [id number], 08/13/2025 21:57:49 08/13/2008/13/2025 UACS specific gravity 1.009 1.003- 1.035 Not Available Az Only - [facility] [place] [facility] [address] [place] [address], [id number], 08/13/2025 21:57:49 08/13/20 25 08/13/2025 UACS pH urine 7.0 5.0-8. 0 Not Available Az Only - [facility] [place] [facility] [address] [place] [address], 29003, 08/13/2025 21:57:49 08/13/20 25 08/13/2025 UACS protein Negati ve Not Available [facility] [address] [place] [address], [id number], 08/13/2025 21:57:49 08/13/20 25 08/13/2025 UACS urine glucose Negati ve Not Available Az Only [facility] [address] [place] [address], 27546, 08/13/2025 21:57:49 08/13/20 25 08/13/2025 UACS ketones Negati ve Not Available Az Only - [facility] [place] [facility] [address] [place] [address], 81521, 08/13/2025 21:57:49 08/13/20 25 08/13/2025 UACS urine bilirubin Negati ve Not Available Az Only - [facility] [place] [facility] [address] [place] [address], 01922, 08/13/2025 21:57:49 08/13/20 25 08/13/2025 UACS urine HGB Negati ve Not Available Az Only - [facility] [place] [facility] [address] [place] [address], 42746, 08/13/2025 21:57:49 08/13/20 25 08/13/2025 UACS nitrite Negati ve Not Available Az Only - [facility] [place] [facility] [address] [place] [address], 46942, 08/13/2025 21:57:49 08/13/20 25 08/13/2025 UACS leukocyte esterase 2+ abnormal Not Available Az On y - [facility] [place] [facility] [address] [place] [address], 44978, 08/13/2025 21:57:49 08/13/20 25 08/13/2025 UACS urobilinogen Negati ve Refer ence Range : <=1 Not Available Az Only - [facility] [place] [facility] [address] [place] [address], 62009, 08/13/2025 21:57:49 08/13/20 25 08/13/2025 UACS urine WBCs 11-25 abnormal Refer ence Range : <=5 Not Available Az Only - [facility] [place] [facility] [address] [place] [address], 12208, 08/13/2025 21:57:49 08/13/20 25 08/13/2025 UACS urine RBCs 0-2 Refer ence Range : <=2 Not Available Az Only - [facility] [place] [facility] [address] [place] [address], 70201, 08/13/2025 21:57:49 08/13/20 25 08/13/2025 UACS squamous epithelial cells 2+ Refer ence Range : <=3+ Not Available Az Only - [facility] [place] [facility] [address] [place] [address], 28443, 08/13/2025 21:57:49 08/13/20 25 08/13/2025 UACS bacteria 1+ abnormal Refer ence Range : <=Tra ce, Non-C ath Not Available Az Only - [facility] [place] [facility] [address] [place] [address], 47490, 08/13/2025 21:57:49 08/13/20 25 08/13/2025 UACS UA mucous Presen t Not Available [facility] [place] [facility] [address] [place] [address], 89562, 08/13/2025 21:57:49 08/13/20 25 08/13/2025 UACS urine ascorbic acid Negati ve Ascor bic acid can inter fere with the detec tion of blood , gluco se, and nitri te. Not Available Az Only - [facility] [place] [facility] [address] [place] [address], 01417, 08/13/2025 21:57:49 08/13/20 25 08/14/2025 C URINE urine culture (new) abnormal Print Date/ Time: 2024 08:15 MICROELECTRONICS ENGINEER Patie nt: JANINA WHITE P Micro biolo gy - Uroge nital Legen d: c=Cor recte d, F=Res ult Comme nt, S=Idalia cepti ble, I=Int ermed iate, R=Res istan t, N/A=N ot Appli cable PROCE DURE: Urine Cultu re [] ACCES LIA: [id number] SOURC E: Urine BODY SITE: COLLE CTED DATE/ TIME: 08/13 20:47 MICROELECTRONICS ENGINEER RECEI ELVA DATE/ TIME: 08/13 20:58 MICROELECTRONICS ENGINEER START DATE/ TIME: 08/13 20:58 MICROELECTRONICS ENGINEER FREE TEXT SOURC E: WA ELIMI NARY REPOR TS Preli minar y Repor t [] Verif ied Date/ Time: 2024 08:15 MICROELECTRONICS ENGINEER 10,00 0 cfu/m l Gram Negat jozef Rods Not Available Az Only - [facility] [place] [facility] [address] [place] [address], 67029, 08/14/2025 09:15:26 08/13/20 25 08/13/2025 BGV base excess 2 mmol/ L -2-3 Not Available Az Only - [facility] [place] [facility] [address] [place] [address], 77689, 08/13/2025 20:47:25 08/13/20 25 08/13/2025 BGV O2 saturation, venous 37 % Not Available Az On y - [facility] [place] [facility] [address] [place] [address], 98017, 08/13/2025 20:47:25 08/13/20 25 08/13/2025 BGV carboxyhemog lobin, venous 1.1 % 0.5-1. 5 Luzmaria l Range : Nonsm okers : 0.5 - 1.5 % Smoke rs : 1 - 2 packs /day : 4.0 - 5.0 % Great er than 2 packs /day : 8.0 - 9.0 % Toxic : Great er than 20.0 % Minot l : Great er than 50.0 % Not Available Az Only - [facility] [place] [facility] [address] [place] [address], 01472, 08/13/2025 20:47:25 08/13/20 25 08/13/2025 BGV methemoglobi n 1.8 % 0.0-1. 5 high Not Available Az Only - [facility] [place] [facility] [address] [place] [address], 92814, 08/13/2025 20:47:25 08/13/20 25 08/13/2025 BGV pH 7.37 7.35-7 .45 Not Available Az Only - [facility] [place] [facility] [address] [place] [address], 53910, 08/13/2025 20:47:25 08/13/20 25 08/13/2025 BGV pCO2 47 mmHg 39-55 Not Available Az Only - [facility] [place] [facility] [address] [place] [address], 81871, 08/13/2025 20:47:25 08/13/20 25 08/13/2025 BGV HCO3 26 mmol/ L 18-23 high Not Available [facility] Only - [facility] [address] [place] [address], 82160, 08/13/2025 20:47:25 08/13/20 25 08/13/2025 BGV pO2 24 mmHg 25-40 low Not Available Sc Only - [facility] [address] [place] [address], 15512, 08/13/2025 20:47:25 08/13/20 25 08/13/2025 EGFR eGFR [...] Only - [facility] [address] [place] [address], 03082, 08/13/2025 19:53:52 08/13/20 25 08/13/2025 LPSE lipase,serum 37 u/L 16-77 Not Dalila ilable Sc Only - [facility] [address] [place] [address], 86306, 08/13/2025 19:53:50 08/13/20 25 08/13/2025 LDH LD 166 u/L 81-234 Not Available Sc Only - [facility] [address] [place] [address], 06523, 08/13/2025 19:53:49 08/13/20 25 08/13/2025 CMP sodium 137 mmol/ L 135-14 8 Not Available Az Only - [facility] [place] [facility] [address], [address], 08/13/2025 19:53:47 08/13/20 25 08/13/2025 CMP potassium 4.4 mmol/ L 3.5-5. 3 Not Available Az Only - [facility] [place] [facility] [address] [place] [address], 49748, 08/13/2025 19:53:47 08/13/20 25 08/13/2025 CMP chloride 102 mmol/ L 96-112 Not Available Az Only - [facility] [place] [facility] [address] [place] [address], 18695, 08/13/2025 19:53:47 08/13/20 25 08/13/2025 CMP CO2 27 mmol/ L 23-33 Not Available [facility] [place] [facility] [address] [place] [address], 27567, 08/13/2025 19:53:47 08/13/20 25 08/13/2025 CMP BUN 11 mg/dL 7-18 Not Available [facility] [place] [facility] [address] [place] [address], 96265, 08/13/2025 19:53:47 08/13/20 25 08/13/2025 CMP creatinine 0.84 mg/dL 0.55-1 .02 Not Available Az Only - [facility] [place] [facility] [address] [place] [address], 44453, 08/13/2025 19:53:47 08/13/20 25 08/13/2025 CMP glucose 147 mg/dL 65-99 high Not Availabl e Az Only - [facility] [place] [facility] [address] [place] [address], 40338, 08/13/2025 19:53:47 08/13/20 25 08/13/2025 CMP calcium 8.7 mg/dL 8.5-10 .1 Not Available Az Only - [facility] [place] [facility] [address] [place] [address], 22746, 08/13/2025 19:53:47 08/13/20 25 08/13/2025 CMP total protein 7.3 g/dL 6.4-8. 2 Not Available Az Only - [facility] [place] [facility] [address] [place] [address], 58100, 08/13/2025 19:53:47 08/13/20 25 08/13/2025 CMP albumin 3.2 g/dL 3.4-5. 0 low Not Available Az Only - [facility] [place] [facility] [address] [place] [address], 58658, 08/13/2025 19:53:47 08/13/20 25 08/13/2025 CMP bilirubin (total) 0.6 mg/dL 0.2-1. 0 Not Available [facility] Only - [facility] [place] [facility] [address] [place] [address], 20452, 08/13/2025 19:53:47 08/13/20 25 08/13/2025 CMP AST 32 u/L 15-37 Not Available Az Only - [facility] [place] [facility] [address] [place] [address], 14801, 08/13/2025 19:53:47 08/13/20 25 08/13/2025 CMP alk phos 159 u/L 46-116 high Not Availab le Az Only - [facility] [place] [facility] [address] [place] [address], 91760, 08/13/2025 19:53:47 08/13/20 25 08/13/2025 CMP ALT 29 u/L 14-59 Not Available Az Only - [facility] [place] [facility] [address] [place] [address], 43503, 08/13/2025 19:53:47 08/13/20 25 08/13/2025 CMP anion gap 8 mmol/ L 7-16 Not Available Az Only - [facility] [place] [facility] [address] [place] [address], 08526, 08/13/2025 19:53:47 08/13/20 25 08/13/2025 DBIL bilirubin (direct) 0.13 mg/dL 0.00-0 .20 Not Available [facility] Only - [facility] [place] [facility] [address] [place] [address], 59018, 08/13/2025 19:53:46 08/13/20 25 08/13/2025 CBCW/ DIFF WBC 10.06 x10 3.98-1 0.04 high Not Available Az Only - [facility] [place] [facility] [address] [place] [address], 41378, 08/13/2025 19:37:07 08/13/20 25 08/13/2025 CBCW/ DIFF RBC 4.36 x10 3.93-5 .22 Not Available Az Only - [facility] [place] [facility] [address] [place] [address], 32434, 08/13/2025 19:37:07 08/13/20 25 08/13/2025 CBCW/ DIFF hemoglobin 11.3 g/dL 11.2-1 5.7 Not Available [facility] Only - [facility] [place] [facility] [address] [place] [address], 28787, 08/13/2025 19:37:07 08/13/20 25 08/13/2025 CBCW/ DIFF hematocrit 36.7 % 34.1-4 4.9 Not Available [facility] Only - [facility] [place] [facility] [address] [place] [address], 41394, 08/13/2025 19:37:07 08/13/20 25 08/13/2025 CBCW/ DIFF MCV 84.2 fL 79.4-9 4.8 Not Available Az Only - [facility] [place] [facility] [address] [place] [address], 35067, 08/13/2025 19:37:07 08/13/20 25 08/13/2025 CBCW/ DIFF MCH 25.9 pg 25.6-3 2.2 Not Available Sc Only - [facility] [place] [facility] [address] [place] [address], 10273, 08/13/2025 19:37:07 08/13/20 25 08/13/2025 CBCW/ DIFF MCHC 30.8 g/dL 32.2-3 5.5 low Not Available Sc Only - [facility] [place] [facility] [address], [address], 08/13/2025 19:37:07 08/13/20 25 08/13/2025 CBCW/ DIFF rdwcv 13.1 % 11.7-1 4.4 Not Available Sc Only - [facility] [place] [facility] [address] [place] [address], 85272, 08/13/2025 19:37:07 08/13/20 25 08/13/2025 CBCW/ DIFF rdwsd 39.9 fL 36.4-4 6.3 Not Available Sc Only - [facility] [place] [facility] [address] [place] [address], 90187, 08/13/2025 19:37:07 08/13/20 25 08/13/2025 CBCW/ DIFF platelets 267 x10 182-36 9 Not Available Sc Only - [facility] [place] [facility] [address] [place] [address], 59484, 08/13/2025 19:37:07 08/13/20 25 08/13/2025 CBCW/ DIFF MPV 9.1 fL 9.4-12 .3 low Not Available Sc Only - [facility] [place] [facility] [address] [place] [address], 18400, 08/13/2025 19:37:07 08/13/20 25 08/13/2025 AUTOD IFF neutrophils 71.1 % 34.0-7 1.1 Not Available Sc Only - [facility] [place] [facility] [address] [place] [address], 82319, 08/13/2025 19:37:06 08/13/20 25 08/13/2025 AUTOD IFF lymphocytes 18.6 % 19.3-5 1.7 low Not Available Sc Only - [facility] [place] [facility] [address] [place] [address], 60510, 08/13/2025 19:37:06 08/13/20 25 08/13/2025 AUTOD IFF monocytes 7.0 % 4.7-12 .5 Not Available Sc Only - [address], 02710, 08/13/2025 19:37:06 08/13/20 25 08/13/2025 AUTOD IFF eosinophils 2.4 % 0.7-5. 8 Not Available Az Only - [address], 50372, 08/13/2025 19:37:06 08/13/20 25 08/13/2025 AUTOD IFF basophils 0.6 % 0.1-1. 2 Not Available Az Only - [address], 40159, 08/13/2025 19:37:06 08/13/20 25 08/13/2025 AUTOD IFF imm auto 0.3 % 0.0-1. 5 Not Available Az Only - [address], 52252, 08/13/2025 19:37:06 08/13/20 25 08/13/2025 AUTOD IFF NRBC auto 0.0 /100W BC 0.0-0. 2 Not Available Az Only - [address], 45474, 08/13/2025 19:37:06 08/13/20 25 08/13/2025 AUTOD IFF absolute neutrophils 7.16 x10 1.56-6 .13 high Not Available Az Only - [address], 22278, 08/13/2025 19:37:06 08/13/20 25 08/13/2025 AUTOD IFF absolute lymphocytes 1.87 x10 1.18-3 .74 Not Available Az Only - [address], 98651, 08/13/2025 19:37:06 08/13/20 25 08/13/2025 AUTOD IFF absolute monocytes 0.70 x10 0.24-0 .36 high Not Available [facility] Only - [facility] [place] [facility] [address] [place] [address], 77828, 08/13/2025 19:37:06 08/13/20 25 08/13/2025 AUTOD IFF absolute eosinophils 0.24 x10 0.04-0 .36 Not Available [facility] Only - [facility] [address] [place] [address], 96235, 08/13/2025 19:37:06 08/13/20 25 08/13/2025 AUTOD IFF absolute basophils 0.06 x10 0.01-0 .08 Not Available [facility] Only - [facility] [address] [place] [address], 46220, 08/13/2025 19:37:06 08/13/20 25 08/13/2025 AUTOD IFF imm absolute 0.03 x10 0.00-0 .15 Not Available [facility] [address] [place] [address], 30570, 08/13/2025 19:37:06 08/13/20 25 08/13/2025 AUTOD IFF NRBC absolute 0.00 x10 0.00-0 .01 Not Available [facility] [address] [place] [address], 08980, 08/13/2025 19:37:06 08/20/20 25 08/22/2025 C URINE urine culture (new) abnormal Print Date/ Time: 2024 07:59 MICROELECTRONICS ENGINEER Patie nt: JANINA WHITE P Micro biolo gy - Uroge nital Legen d: c=Cor recte d, F=Res ult Comme nt, S=Idalia cepti ble, I=Int ermed iate, R=Res istan t, N/A=N ot Appli cable PROCE DURE: Urine Cultu re [] ACCES LIA: [id number] SOURC E: Urine BODY SITE: COLLE CTED DATE/ TIME: 2024 16:54 MICROELECTRONICS ENGINEER RECEI ELVA DATE/ TIME: 2024 17:42 MICROELECTRONICS ENGINEER START DATE/ TIME: 2024 17:42 MICROELECTRONICS ENGINEER FREE TEXT SOURC E: FI NAL REPOR TS Final Repor t [] Verif ied Date/ Time: 2024 07:59 MICROELECTRONICS ENGINEER 40,00 0 cfu/m l Mixed gram- posit jozef sanket inclu ding: Strep tococ cus agala ctiae (Grou p B) WA ELIMI NARY REPOR TS Preli minar y Repor t [] Verif ied Date/ Time: 2024 07:31 MICROELECTRONICS ENGINEER No growt h after 12-24 hours incub ation Not Available [facility] Only - [facility] [place] [facility] [address] [place] [address], 21495, 08/22/2025 08:59:33 08/20/20 25 08/20/2025 UACS color Colorl ess Not Available [facility] Only - [facility] [place] [facility] [address] [place] [address], 75691, 08/20/2025 18:34:51 08/20/20 25 08/20/2025 UACS appearance Clear Not Avail able Sc Only - [facility] [place] [facility] [address] [place] [address], 86465, 08/20/2025 18:34:51 08/20/20 25 08/20/2025 UACS specific gravity 1.004 1.003- 1.035 Not Available [facility] Only - [facility] [place] [facility] [address] [place] [address], 19609, 08/20/2025 18:34:51 08/20/20 25 08/20/2025 UACS pH urine 7.0 5.0-8. 0 Not Available [facility] Only - [facility] [place] [facility] [address] [place] [address], 00091, 08/20/2025 18:34:51 08/20/20 25 08/20/2025 UACS protein Negati ve Not Available Sc Only - [facility] [place] [facility] [address] [place] [address], 78898, 08/20/2025 18:34:51 08/20/20 25 08/20/2025 UACS urine glucose Negati ve Not Available [facility] Only - [facility] [address] [place] [address], 41059, 08/20/2025 18:34:51 08/20/20 25 08/20/2025 UACS ketones Negati ve Not Available [facility] Only - [facility] [place] [facility] [address] [place] [address], 91911, 08/20/2025 18:34:51 08/20/20 25 08/20/2025 UACS urine bilirubin Negati ve Not Available [facility] Only - [facility] [place] [facility] [address] [place] [address], 21130, 08/20/2025 18:34:51 08/20/20 25 08/20/2025 UACS urine HGB Negati ve Not Available [facility] Only - [facility] [place] [facility] [address] [place] [address], 39294, 08/20/2025 18:34:51 08/20/20 25 08/20/2025 UACS nitrite Negati ve Not Available [facility] Only - [facility] [place] [facility] [address] [place] [address], 80840, 08/20/2025 18:34:51 08/20/20 25 08/20/2025 UACS leukocyte esterase Trace abnormal Not Available Az On y - [facility] [place] [facility] [address] [place] [address], 64490, 08/20/2025 18:34:51 08/20/20 25 08/20/2025 UACS urobilinogen Negati ve Refer ence Range : <=1 Not Available [facility] Only - [facility] [place] [facility] [address] [place] [address], 02324, 08/20/2025 18:34:51 08/20/20 25 08/20/2025 UACS urine WBCs 3-5 Refer ence Range : <=5 Not Available [facility] Only - [facility] [address] [place] [address], 31311, 08/20/2025 18:34:51 08/20/20 25 08/20/2025 UACS urine RBCs 0-2 Refer ence Range : <=2 Not Available [facility] Only - [facility] [place] [facility] [address] [place] [address], 34921, 08/20/2025 18:34:51 08/20/20 25 08/20/2025 UACS squamous epithelial cells Few Refer ence Range : <=3+ Not Available [facility] Only - [facility] [place] [facility] [address] [place] [address], 42463, 08/20/2025 18:34:51 08/20/20 25 08/20/2025 UACS bacteria Negati ve Refer ence Range : <=Tra ce, Non-C ath Not Available [facility] [place] [facility] [address] [place] [address], 60925, 08/20/2025 18:34:51 08/20/20 25 08/20/2025 UACS urine ascorbic acid Negati ve Ascor bic acid can inter fere with the detec tion of blood , gluco se, and nitri te. Not Available [facility] [place] [facility] [address] [place] [address], 48150, 08/20/2025 18:34:51 08/20/20 25 08/21/2025 C URINE urine culture (new) Print Date/ Time: 2024 07:31 MICROELECTRONICS ENGINEER Patie nt: JANINA WHITE P Micro biolo gy - Uroge nital Legen d: c=Cor recte d, F=Res ult Comme nt, S=Idalia cepti ble, I=Int ermed iate, R=Res istan t, N/A=N ot Appli cable PROCE DURE: Urine Cultu re [] ACCES LIA: [id number] SOURC E: Urine BODY SITE: COLLE CTED DATE/ TIME: 2024 16:54 MICROELECTRONICS ENGINEER RECEI ELVA DATE/ TIME: 2024 17:42 MICROELECTRONICS ENGINEER START DATE/ TIME: 2024 17:42 MICROELECTRONICS ENGINEER FREE TEXT SOURC E: WA ELIMI NARY REPOR TS Preli minar y Repor t [] Verif ied Date/ Time: 2024 07:31 MICROELECTRONICS ENGINEER No growt h after 12-24 hours incub ation Not Available [facility] Only - [facility] [address] [place] [address], 01782, 08/21/2025 08:31:05 08/20/20 25 08/20/2025 EGFR eGFR [...] Only - [facility] [address] [place] [address], 69273, 08/20/2025 17:23:53 08/20/20 25 08/20/2025 LPSE lipase,serum 31 u/L 16-77 Not Dalila ilable Sc Only - [facility] [address] [place] [address], 89088, 08/20/2025 17:23:52 08/20/20 25 08/20/2025 LDH LD 168 u/L 81-234 Not Available Sc Only - [facility] [address] [place] [address], 21180, 08/20/2025 17:23:51 08/20/20 25 08/20/2025 CMP sodium 136 mmol/ L 135-14 8 Not Available Az Only - [facility] [address] [place] [address], 78850, 08/20/2025 17:23:50 08/20/20 25 08/20/2025 CMP potassium 4.3 mmol/ L 3.5-5. 3 Not Available [facility] Only - [facility] [place] [facility] [address] [place] [address], 71237, 08/20/2025 17:23:50 08/20/20 25 08/20/2025 CMP chloride 103 mmol/ L 96-112 Not Available [facility] Only - [facility] [place] [facility] [address] [place] [address], 61790, 08/20/2025 17:23:50 08/20/20 25 08/20/2025 CMP CO2 26 mmol/ L 23-33 Not Available [facility] Only - [facility] [place] [facility] [address] [place] [address], 33077, 08/20/2025 17:23:50 08/20/20 25 08/20/2025 CMP BUN 14 mg/dL 7-18 Not Available [facility] Only - [facility] [place] [facility] [address] [place] [address], 14039, 08/20/2025 17:23:50 08/20/20 25 08/20/2025 CMP creatinine 0.76 mg/dL 0.55-1 .02 Not Available [facility] - [facility] [place] [facility] [address] [place] [address], 49702, 08/20/2025 17:23:50 08/20/20 25 08/20/2025 CMP glucose 139 mg/dL 65-99 high Not Availabl e Az Only - [facility] [place] [facility] [address] [place] [address], 29561, 08/20/2025 17:23:50 08/20/20 25 08/20/2025 CMP calcium 8.9 mg/dL 8.5-10 .1 Not Available [facility] - [facility] [place] [facility] [address] [place] [address], 23751, 08/20/2025 17:23:50 08/20/20 25 08/20/2025 CMP total protein 6.9 g/dL 6.4-8. 2 Not Available [facility] - [facility] [place] [facility] [address], 92175, 08/20/2025 17:23:50 08/20/20 25 08/20/2025 CMP albumin 3.1 g/dL 3.4-5. 0 low Not Available [facility] [place] [facility] [address] [place] [address], 39741, 08/20/2025 17:23:50 08/20/20 25 08/20/2025 CMP bilirubin (total) 0.6 mg/dL 0.2-1. 0 Not Available [facility] Only - [facility] [place] [facility] [address] [place] [address], 08266, 08/20/2025 17:23:50 08/20/20 25 08/20/2025 CMP AST 28 u/L 15-37 Not Available [facility] Only - [facility] [place] [facility] [address] [place] [address], 61574, 08/20/2025 17:23:50 08/20/20 25 08/20/2025 CMP alk phos 149 u/L 46-116 high Not Availab le Az Only - [facility] [place] [facility] [address] [place] [address], 64881, 08/20/2025 17:23:50 08/20/20 25 08/20/2025 CMP ALT 26 u/L 14-59 Not Available Az Only - [facility] [place] [facility] [address] [place] [address], [id number], 08/20/2025 17:23:50 08/20/20 25 08/20/2025 CMP anion gap 7 mmol/ L 7-16 Not Available Az Only - [facility] [place] [facility] [address] [place] [address], [id number], 08/20/2025 17:23:50 08/20/20 25 08/20/2025 DBIL bilirubin (direct) 0.14 mg/dL 0.00-0 .20 Not Available Az Only - [facility] [place] [facility] [address] [place] [address], [id number], 08/20/2025 17:23:49 08/20/20 25 08/20/2025 CBCW/ DIFF WBC 7.00 x10 3.98-1 0.04 Not Available Sc Only - [facility] [address] [place] [address], [id number], 08/20/2025 17:12:10 08/20/20 25 08/20/2025 CBCW/ DIFF RBC 4.07 x10 3.93-5 .22 Not Available Sc Only - [facility] [address] [place] [address], [id number], 08/20/2025 17:12:10 08/20/20 25 08/20/2025 CBCW/ DIFF hemoglobin 10.5 g/dL 11.2-1 5.7 low Not Available Sc Only - [facility] [address] [place] [address], 60659, 08/20/2025 17:12:10 08/20/20 25 08/20/2025 CBCW/ DIFF hematocrit 33.4 % 34.1-4 4.9 low Not Available Sc Only - [facility] [address] [place] [address], 25262, 08/20/2025 17:12:10 08/20/20 25 08/20/2025 CBCW/ DIFF MCV 82.1 fL 79.4-9 4.8 Not Available Sc Only - [facility] [address] [place] [address], 85935, 08/20/2025 17:12:10 08/20/20 25 08/20/2025 CBCW/ DIFF MCH 25.8 pg 25.6-3 2.2 Not Available Sc Only - [facility] [address] [place] [address], 80909, 08/20/2025 17:12:10 08/20/20 25 08/20/2025 CBCW/ DIFF MCHC 31.4 g/dL 32.2-3 5.5 low Not Available Sc Only - [facility] [address] [place] [address], 60995, 08/20/2025 17:12:10 08/20/20 25 08/20/2025 CBCW/ DIFF rdwcv 13.0 % 11.7-1 4.4 Not Available Sc Only - [facility] [address] [place] [address], 93156, 08/20/2025 17:12:10 08/20/20 25 08/20/2025 CBCW/ DIFF rdwsd 38.7 fL 36.4-4 6.3 Not Available Sc Only - [facility] [place] [facility] [address] [place] [address], 99710, 08/20/2025 17:12:10 08/20/20 25 08/20/2025 CBCW/ DIFF platelets 206 x10 182-36 9 Not Available Sc Only - [facility] [place] [facility] [address] [place] [address], 54609, 08/20/2025 17:12:10 08/20/20 25 08/20/2025 CBCW/ DIFF MPV 9.1 fL 9.4-12 .3 low Not Available Sc Only - [facility] [place] [facility] [address] [place] [address], 51598, 08/20/2025 17:12:10 08/20/20 25 08/20/2025 AUTOD IFF neutrophils 65.5 % 34.0-7 1.1 Not Available Sc Only - [facility] [place] [facility] [address] [place] [address], 57072, 08/20/2025 17:12:09 08/20/20 25 08/20/2025 AUTOD IFF lymphocytes 22.3 % 19.3-5 1.7 Not Available Sc Only - [facility] [address] [place] [address], 88196, 08/20/2025 17:12:09 08/20/20 25 08/20/2025 AUTOD IFF monocytes 8.1 % 4.7-12 .5 Not Available Sc Only - [facility] [address] [place] [address], 87812, 08/20/2025 17:12:09 08/20/20 25 08/20/2025 AUTOD IFF eosinophils 3.3 % 0.7-5. 8 Not Available Sc Only - [facility] [place] [facility] [address] [place] [address], 99800, 08/20/2025 17:12:09 08/20/20 25 08/20/2025 AUTOD IFF basophils 0.7 % 0.1-1. 2 Not Available Sc Only - [facility] [place] [facility] [address] [place] [address], 53112, 08/20/2025 17:12:09 08/20/2008/20/2025 AUTOD IFF imm auto 0.1 % 0.0-1. 5 Not Available Sc Only - [facility] [place] [facility] [address] [place] [address], 81100, 08/20/2025 17:12:09 08/20/20 25 08/20/2025 AUTOD IFF NRBC auto 0.0 /100W BC 0.0-0. 2 Not Available Sc Only - [facility] [place] [facility] [address] [place] [address], 89241, 08/20/2025 17:12:09 08/20/20 25 08/20/2025 AUTOD IFF absolute neutrophils 4.58 x10 1.56-6 .13 Not Available Sc Only - [facility] [address] [place] [address], 04283, 08/20/2025 17:12:09 08/20/20 25 08/20/2025 AUTOD IFF absolute lymphocytes 1.56 x10 1.18-3 .74 Not Available Sc Only - [facility] [place] [facility] [address] [place] [address], 00591, 08/20/2025 17:12:09 08/20/20 25 08/20/2025 AUTOD IFF absolute monocytes 0.57 x10 0.24-0 .36 high Not Available Sc Only - [facility] [place] [facility] [address] [place] [address], 24509, 08/20/2025 17:12:09 08/20/20 25 08/20/2025 AUTOD IFF absolute eosinophils 0.23 x10 0.04-0 .36 Not Available Az Only - [facility] [place] [facility] [address] [place] [address], 61941, 08/20/2025 17:12:09 08/20/20 25 08/20/2025 AUTOD IFF absolute basophils 0.05 x10 0.01-0 .08 Not Available Az Only - [facility] [place] [facility] [address] [place] [address], 29241, 08/20/2025 17:12:09 08/20/20 25 08/20/2025 AUTOD IFF imm absolute 0.01 x10 0.00-0 .15 Not Available Az Only - [facility] [place] [facility] [address] [place] [address], 92406, 08/20/2025 17:12:09 08/20/20 25 08/20/2025 AUTOD IFF NRBC absolute 0.00 x10 0.00-0 .01 Not Available Az Only - [facility] [place] [facility] [address] [place] [address], 66420, 08/20/2025 17:12:09 08/29/20 25 09/01/2025 C URINE urine culture (new) Print Date/ Time: 09/01 08:13 MICROELECTRONICS ENGINEER Patie nt: JANINA WHITE P Micro biolo gy - Uroge nital Legen d: c=Cor recte d, F=Res ult Comme nt, S=Idalia cepti ble, I=Int ermed iate, R=Res istan t, N/A=N ot Appli cable PROCE DURE: Urine Cultu re [] ACCES LIA: [id number] SOURC E: Urine BODY SITE: COLLE CTED DATE/ TIME: 08/29 21:59 MICROELECTRONICS ENGINEER RECEI ELVA DATE/ TIME: 08/29 22:28 MICROELECTRONICS ENGINEER START DATE/ TIME: 08/29 22:28 MICROELECTRONICS ENGINEER FREE TEXT SOURC E: FI NAL REPOR TS Final Repor t [] Verif ied Date/ Time: 09/01 08:13 MICROELECTRONICS ENGINEER 30,00 0 cfu/m l Mixed gram posit jozef sanket inclu ding presu mptiv e Grp B Strep WA ELIMI NARY REPOR TS Preli minar y Repor t [] Verif ied Date/ Time: 08/31 07:15 MICROELECTRONICS ENGINEER 10,00 0 cfu/m l Gram Posit jozef Cocci Preli minar y Repor t [] Verif ied Date/ Time: 08/30 07:36 MICROELECTRONICS ENGINEER No growt h. Speci men recei elva after 6pm. Not Available Az Only - [facility] [place] [facility] [address] [place] [address], 33216, 09/01/2025 09:13:47 08/29/20 25 08/29/2025 UACS color Yellow Not Available Sc Only - [facility] [place] [facility] [address] [place] [address], 45989, 08/29/2025 23:36:06 08/29/20 25 08/29/2025 UACS appearance Hazy Not Avail able Sc Only - [facility] [place] [facility] [address] [place] [address], 28758, 08/29/2025 23:36:06 08/29/20 25 08/29/2025 UACS specific gravity 1.023 1.003- 1.035 Not Available Az Only - [facility] [place] [facility] [address] [place] [address], 50581, 08/29/2025 23:36:06 08/29/20 25 08/29/2025 UACS pH urine 6.0 5.0-8. 0 Not Available Az Only - [facility] [place] [facility] [address] [place] [address], 06624, 08/29/2025 23:36:06 08/29/20 25 08/29/2025 UACS protein 1+ abnormal Not Availa ble Sc Only - [facility] [place] [facility] [address] [place] [address], 83036, 08/29/2025 23:36:06 08/29/20 25 08/29/2025 UACS urine glucose Negati ve Not Available [facility] [place] [facility] [address] [place] [address], 86453, 08/29/2025 23:36:06 08/29/20 25 08/29/2025 UACS ketones Negati ve Not Available [facility] [address] [place] [address], 12710, 08/29/2025 23:36:06 08/29/20 25 08/29/2025 UACS urine bilirubin Negati ve Not Available [facility] [address] [place] [address], 42827, 08/29/2025 23:36:06 08/29/20 25 08/29/2025 UACS urine HGB Negati ve Not Available [facility] [address] [place] [address], 96408, 08/29/2025 23:36:06 08/29/20 25 08/29/2025 UACS nitrite Negati ve Not Available [facility] [address] [place] [address], 52483, 08/29/2025 23:36:06 08/29/20 25 08/29/2025 UACS leukocyte esterase 3+ abnormal Not Available [facility] [place] [facility] [address] [place] [address], 29861, 08/29/2025 23:36:06 08/29/20 25 08/29/2025 UACS urobilinogen Negati ve Refer ence Range : <=1 Not Available [facility] [place] [facility] [address] [place] [address], 76080, 08/29/2025 23:36:06 08/29/20 25 08/29/2025 UACS urine WBCs 11-25 abnormal Refer ence Range : <=5 Not Available [facility] [address] [place] [address], 04827, 08/29/2025 23:36:06 08/29/20 25 08/29/2025 UACS urine RBCs 3-5 abnormal Refer ence Range : <=2 Not Available [facility] [address] [place] [address], 20657, 08/29/2025 23:36:06 08/29/20 25 08/29/2025 UACS squamous epithelial cells 3+ Refer ence Range : <=3+ Not Available [facility] [address] [place] [address], 68549, 08/29/2025 23:36:06 08/29/20 25 08/29/2025 UACS bacteria Trace abnormal Refer ence Range : <=Tra ce, Non-C ath Not Available [facility] [address] [place] [address], 50313, 08/29/2025 23:36:06 08/29/20 25 08/29/2025 UACS UA mucous Presen t Not Available [facility] [address] [place] [address], 11039, 08/29/2025 23:36:06 08/29/20 25 08/29/2025 UACS urine ascorbic acid Negati ve Ascor bic acid can inter fere with the detec tion of blood , gluco se, and nitri te. Not Available [facility] [address] [place] [address], 80273, 08/29/2025 23:36:06 08/29/20 25 08/31/2025 C URINE urine culture (new) abnormal Print Date/ Time: 08/31 07:15 MICROELECTRONICS ENGINEER Patie nt: JANINA WHITE P Micro biolo gy - Uroge nital Legen d: c=Cor recte d, F=Res ult Comme nt, S=Idalia cepti ble, I=Int ermed iate, R=Res istan t, N/A=N ot Appli cable PROCE DURE: Urine Cultu re [] ACCES LIA: [id number] SOURC E: Urine BODY SITE: COLLE CTED DATE/ TIME: 08/29 21:59 MICROELECTRONICS ENGINEER RECEI ELVA DATE/ TIME: 08/29 22:28 MICROELECTRONICS ENGINEER START DATE/ TIME: 08/29 22:28 MICROELECTRONICS ENGINEER FREE TEXT SOURC E: WA ELIMI NARY REPOR TS Preli minar y Repor t [] Verif ied Date/ Time: 08/31 07:15 MICROELECTRONICS ENGINEER 10,00 0 cfu/m l Gram Posit jozef Cocci Preli minar y Repor t [] Verif ied Date/ Time: 08/30 07:36 MICROELECTRONICS ENGINEER No growt h. Speci men recei elva after 6pm. Not Available Az Only - [facility] [place] [facility] [address] [place] [address], 20735, 08/31/2025 08:15:21 08/29/20 25 08/31/2025 C URINE urine culture (new) abnormal Print Date/ Time: 08/31 07:15 MICROELECTRONICS ENGINEER Patie nt: JANINA WHITE P Micro biolo gy - Uroge nital Legen d: c=Cor recte d, F=Res ult Comme nt, S=Idalia cepti ble, I=Int ermed iate, R=Res istan t, N/A=N ot Appli cable PROCE DURE: Urine Cultu re [] ACCES LIA: [id number] [id number] SOURC E: Urine BODY SITE: [facility] CTED DATE/ TIME: 08/29 21:59 MICROELECTRONICS ENGINEER RECEI ELVA DATE/ TIME: 08/29 22:28 MICROELECTRONICS ENGINEER START DATE/ TIME: 08/29 22:28 MICROELECTRONICS ENGINEER FREE TEXT SOURC E: WA ELIMI NARY REPOR TS Preli minar y Repor t [] Verif ied Date/ Time: 08/31 07:15 MICROELECTRONICS ENGINEER 10,00 0 cfu/m l Gram Posit jozef Cocci Preli minar y Repor t [] Verif ied Date/ Time: 08/30 07:36 MICROELECTRONICS ENGINEER No growt h. Speci men recei elva after 6pm. Not Available Az Only - [facility] [address] [place] [address], 98174, 08/31/2025 08:15:19 08/29/20 25 08/30/2025 C URINE urine culture (new) Print Date/ Time: 08/30 07:36 MICROELECTRONICS ENGINEER Patie nt: JANINA WHITEAryan P Micro biolo gy - Uroge nital Legen d: c=Cor recte d, F=Res ult Comme nt, S=Idalia cepti ble, I=Int ermed iate, R=Res istan t, N/A=N ot Appli cable PROCE DURE: Urine Cultu re [] ACCES LIA: [id number] SOURC E: Urine BODY SITE: COLLE CTED DATE/ TIME: 08/29 21:59 MICROELECTRONICS ENGINEER RECEI ELVA DATE/ TIME: 08/29 22:28 MICROELECTRONICS ENGINEER START DATE/ TIME: 08/29 22:28 MICROELECTRONICS ENGINEER FREE TEXT SOURC E: WA ELIMI NARY REPOR TS Preli minar y Repor t [] Verif ied Date/ Time: 08/30 07:36 MICROELECTRONICS ENGINEER No growt h. Speci men recei elva after 6pm. Not Available Az Only - [facility] [place] [facility] [address] [place] [address], 04405, 08/30/2025 08:36:11 08/29/20 25 08/29/2025 EGFR eGFR [...] Only - [facility] [address] [place] [address], 52710, 08/29/2025 17:20:48 08/29/20 25 08/29/2025 LPSE lipase,serum 40 u/L 16-77 Not Dalila ilable Sc Only - [facility] [address] [place] [address], 97144, 08/29/2025 17:20:47 08/29/20 25 08/29/2025 LDH LD 165 u/L 81-234 Not Available Sc Only - [facility] [address] [place] [address], 33088, 08/29/2025 17:20:45 08/29/20 25 08/29/2025 CMP sodium 141 mmol/ L 135-14 8 Not Available Sc Only - [facility] [address] [place] [address], 93278, 08/29/2025 17:20:43 08/29/20 25 08/29/2025 CMP potassium 3.8 mmol/ L 3.5-5. 3 Not Available Sc Only - [facility] [address] [place] [address], 62214, 08/29/2025 17:20:43 08/29/20 25 08/29/2025 CMP chloride 105 mmol/ L 96-112 Not Available Sc Only - [facility] [address] [place] [address], 22584, 08/29/2025 17:20:43 08/29/20 25 08/29/2025 CMP CO2 27 mmol/ L 23-33 Not Available Sc Only - [facility] [address] [place] [address], 70850, 08/29/2025 17:20:43 08/29/20 25 08/29/2025 CMP BUN 16 mg/dL 7-18 Not Available [facility] Only - [facility] [address] [place] [address], 40408, 08/29/2025 17:20:43 08/29/20 25 08/29/2025 CMP creatinine 0.77 mg/dL 0.55-1 .02 Not Available Sc Only - [facility] [address] [place] [address], 78877, 08/29/2025 17:20:43 08/29/20 25 08/29/2025 CMP glucose 108 mg/dL 65-99 high Not Availabl e Sc Only - [facility] [place] [facility] [address] [place] [address], 18922, 08/29/2025 17:20:43 08/29/20 25 08/29/2025 CMP calcium 8.3 mg/dL 8.5-10 .1 low Not Available Az Only - [facility] [place] [facility] [address] [place] [address], 12641, 08/29/2025 17:20:43 08/29/20 25 08/29/2025 CMP total protein 7.2 g/dL 6.4-8. 2 Not Available [facility] Only - [facility] [place] [facility] [address] [place] [address], 58031, 08/29/2025 17:20:43 08/29/20 25 08/29/2025 CMP albumin 3.0 g/dL 3.4-5. 0 low Not Available [facility] Only - [facility] [place] [facility] [address] [place] [address], 92994, 08/29/2025 17:20:43 08/29/20 25 08/29/2025 CMP bilirubin (total) 0.3 mg/dL 0.2-1. 0 Not Available [facility] - [facility] [place] [facility] [address] [place] [address], 34310, 08/29/2025 17:20:43 08/29/20 25 08/29/2025 CMP AST 30 u/L 15-37 Not Available [facility] - [facility] [place] [facility] [address] [place] [address], 39204, 08/29/2025 17:20:43 08/29/20 25 08/29/2025 CMP alk phos 164 u/L 46-116 high Not Availab le Az Only - [facility] [place] [facility] [address], 91353, 08/29/2025 17:20:43 08/29/20 25 08/29/2025 CMP ALT 28 u/L 14-59 Not Available [facility] Only - [facility] [place] [facility] [address], 15286, 08/29/2025 17:20:43 08/29/20 25 08/29/2025 CMP anion gap 9 mmol/ L 7-16 Not Available [facility] Only - [facility] [place] [facility] [address] [place] [address], 89294, 08/29/2025 17:20:43 08/29/20 25 08/29/2025 DBIL bilirubin (direct) 0.07 mg/dL 0.00-0 .20 Not Available [facility] - [facility] [place] [facility] [address] [place] [address], 74042, 08/29/2025 17:20:41 08/29/20 25 08/29/2025 CBCW/ DIFF WBC 7.75 x10 3.98-1 0.04 Not Available [facility] - [facility] [place] [facility] [address] [place] [address], 98527, 08/29/2025 17:02:42 08/29/20 25 08/29/2025 CBCW/ DIFF RBC 4.19 x10 3.93-5 .22 Not Available [facility] - [facility] [place] [facility] [address] [place] [address], 55217, 08/29/2025 17:02:42 08/29/20 25 08/29/2025 CBCW/ DIFF hemoglobin 10.9 g/dL 11.2-1 5.7 low Not Available [facility] - [facility] [place] [facility] [address] [place] [address], 51593, 08/29/2025 17:02:42 08/29/20 25 08/29/2025 CBCW/ DIFF hematocrit 34.6 % 34.1-4 4.9 Not Available [facility] Only - [facility] [address] [place] [address], 76833, 08/29/2025 17:02:42 08/29/20 25 08/29/2025 CBCW/ DIFF MCV 82.6 fL 79.4-9 4.8 Not Available Sc Only - [facility] [address] [place] [address], 44251, 08/29/2025 17:02:42 08/29/20 25 08/29/2025 CBCW/ DIFF MCH 26.0 pg 25.6-3 2.2 Not Available [facility] Only - [facility] [address] [place] [address], 74195, 08/29/2025 17:02:42 08/29/20 25 08/29/2025 CBCW/ DIFF MCHC 31.5 g/dL 32.2-3 5.5 low Not Available [facility] Only - [facility] [address] [place] [address], 66228, 08/29/2025 17:02:42 08/29/20 25 08/29/2025 CBCW/ DIFF rdwcv 13.2 % 11.7-1 4.4 Not Available [facility] Only - [facility] [address] [place] [address], 51338, 08/29/2025 17:02:42 08/29/20 25 08/29/2025 CBCW/ DIFF rdwsd 39.8 fL 36.4-4 6.3 Not Available Sc Only - [facility] [address] [place] [address], 40638, 08/29/2025 17:02:42 08/29/20 25 08/29/2025 CBCW/ DIFF platelets 265 x10 182-36 9 Not Available [facility] Only - [facility] [address] [place] [address], 15657, 08/29/2025 17:02:42 08/29/20 25 08/29/2025 CBCW/ DIFF MPV 9.4 fL 9.4-12 .3 Not Available Sc Only - [facility] [place] [facility] [address] [place] [address], 83107, 08/29/2025 17:02:42 08/29/20 25 08/29/2025 AUTOD IFF neutrophils 65.3 % 34.0-7 1.1 Not Available Sc Only - [facility] [place] [facility] [address] [place] [address], 47826, 08/29/2025 17:02:40 08/29/20 25 08/29/2025 AUTOD IFF lymphocytes 22.6 % 19.3-5 1.7 Not Available [facility] - [facility] [place] [facility] [address] [place] [address], 74040, 08/29/2025 17:02:40 08/29/20 25 08/29/2025 AUTOD IFF monocytes 7.7 % 4.7-12 .5 Not Available [facility] - [facility] [place] [facility] [address] [place] [address], 46026, 08/29/2025 17:02:40 08/29/20 25 08/29/2025 AUTOD IFF eosinophils 3.5 % 0.7-5. 8 Not Available [facility] Only - [facility] [place] [facility] [address] [place] [address], 72305, 08/29/2025 17:02:40 08/29/20 25 08/29/2025 AUTOD IFF basophils 0.8 % 0.1-1. 2 Not Available [facility] Only - [facility] [place] [facility] [address] [place] [address], 77323, 08/29/2025 17:02:40 08/29/20 25 08/29/2025 AUTOD IFF imm auto 0.1 % 0.0-1. 5 Not Available [facility] Only - [facility] [place] [facility] [address] [place] [address], 79924, 08/29/2025 17:02:40 08/29/20 25 08/29/2025 AUTOD IFF NRBC auto 0.0 /100W BC 0.0-0. 2 Not Available Sc Only - [address], 59123, 08/29/2025 17:02:40 08/29/20 25 08/29/2025 AUTOD IFF absolute neutrophils 5.06 x10 1.56-6 .13 Not Available Sc Only - [address], 18680, 08/29/2025 17:02:40 08/29/20 25 08/29/2025 AUTOD IFF absolute lymphocytes 1.75 x10 1.18-3 .74 Not Available Sc Only - [address], 06824, 08/29/2025 17:02:40 08/29/20 25 08/29/2025 AUTOD IFF absolute monocytes 0.60 x10 0.24-0 .36 high Not Available Sc Only - [address], 58216, 08/29/2025 17:02:40 08/29/20 25 08/29/2025 AUTOD IFF absolute eosinophils 0.27 x10 0.04-0 .36 Not Available Sc Only - [address], 75937, 08/29/2025 17:02:40 08/29/20 25 08/29/2025 AUTOD IFF absolute basophils 0.06 x10 0.01-0 .08 Not Available Sc Only - [address], 53250, 08/29/2025 17:02:40 08/29/20 25 08/29/2025 AUTOD IFF imm absolute 0.01 x10 0.00-0 .15 Not Available Sc Only - [address], 12964, 08/29/2025 17:02:40 08/29/20 25 08/29/2025 AUTOD IFF NRBC absolute 0.00 x10 0.00-0 .01 Not Available [facility] Only - [facility] [place] [facility] [address] [place] [address], 80474, 08/29/2025 17:02:40 08/20/20 25 08/20/2025 D abdom en 1 view [facility] [address] [place] [address] Name: TL WHITE Age: 54 : 1970 Exam Date: 2024 ACCESS ION: [id number] BLAISE CALDERA MD: ANKUSH JOEL EXAMIN ATION: [...] was dictat ed remote ly by a [facility] Radiol ogist in [place], [place]. /CS:cs D: 2024 16:08 T: 2024 16:08 Final Report Dictat ed: 16:08 Minna Underwood MD Signed : 16:08 Minna Underwood MD INTERFACE Sc Only - [facility] [place] [facility] [address], [place], [address], 08/20/2025 17:11:56 09/05/20 25 09/05/2025 elect rocar diogr am, routi ne ECG, 12 leads min No observ ation record ed. INTERFACE Sc Only - [facility] [address] [address], [place], [address], 09/05/2025 15:23:33 09/05/20 25 08/18/2025 imagi ng/di chinmayos tic resul t No observ ation record ed. [address] [facility] [address], [place], [address], 09/05/2025 17:07:07 09/05/20 25 08/18/2025 CT, abdom en + pelvi s, w/ contr ast No observ ation record ed. [facility] [address], [place], [address], 09/05/2025 18:33:06 Result Notes None recorded. Problems Name Problem SNOMED Code Status Onset Date Resolution Date Notes Provider Name and Address Organization Details Recorded Time Migraine 06607950 Active 2020 Not Available [facility] 5 22:06:56 Hypertens jozef disorder 06087321 Active 2020 Not Available [facility] 5 22:06:56 Atypical squamous cells of undetermi tiffanie significa nce on cervical Papanicol aou smear 588855924 Active 2020 Not Available [facility] 5 22:06:56 Second degree uterine prolapse 9883127 Active 2022 Not Available [facility] 5 22:06:56 Chest pain 32599494 Active 2022 Not Available [facility] 22:07:15 Preinfarc tion syndrome 6387665 Active 2022 Not Available [facility] 5 22:07:58 Coronary arteriosc lerosis 22924266 Active 2023 Not Available [facility] 5 22:06:26 Essential hypertens ion 04874585 Active 2023 Not Available [facility] 5 22:06:26 Hyperchol esterolem ia 60093305 Active 2023 Not Available [facility] 5 22:06:26 Abdominal pain 94939362 Active 2023 Not Available [facility] 22:08:28 Thoracic radiculop athy 00119996 Active 2023 Not Available [facility] 5 22:07:18 Cervical radiculop athy 74262675 Active 2023 Not Available [facility] 5 22:07:18 Lumbar spondylos is 021594635 Active 2023 Not Available [facility] 5 22:07:18 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 50692901111 9106 Active 2023 following with endocrino logy Not Available [facility] 5 22:07:26 Spinal arachnoid cyst 076361699 Active 2023 Not Available [facility] 5 22:07:42 Morbid obesity 980070862 Active 2024 Not Available [facility] 5 22:08:30 Gastropar esis syndrome 058748685 Active 2024 Not Available [facility] 5 22:08:30 Gastroeso phageal reflux disease 003615591 Active 2024 Not Available [facility] 5 22:08:30 Dyspnea 483702422 Active 2024 Not Available [facility] 5 22:10:22 Pain of left shoulder region Active 2024 Not Available [facility] 5 22:10:22 Bilateral cramp of muscle of lower limbs 11471039386 466695 Active 2024 Not Available [facility] 5 22:10:22 Fibromyal chuck 721149750 Active 2024 Not Available [facility] 5 22:08:30 Recurrent major depressio n in remission 30566406 Active 2024 Not Available [facility] 5 22:08:30 Primary insomnia 3830932 Active 2024 Not Available [facility] 5 22:08:30 Swelling of lower limb 862336424 Active 2024 Not Available [facility] 5 22:08:41 Palpitati ons 33088204 Active 2024 Not Available [facility] 5 22:09:22 Dyspnea on exertion 88132361 Active 2024 Not Available [facility] 5 22:11:38 Hyperlipi demia 43209679 Active 2024 Not Available [facility] 5 22:09:44 Edema of lower extremity 778125660 Active 2024 Not Available [facility] 5 22:09:44 Persisten t depressiv e disorder [id number] Active 2024 Not Available [facility] 5 22:09:45 Restless legs syndrome 35360466 Active 2024 Not Available [facility] 5 22:09:45 Atypical chest pain 533215400 Active 2024 Not Available [facility] 22:12:17 Anemia 019377648 Active 2024 Not Available [facility] 22:12:35 Acute kidney injury 38667664 Active 2024 Not Available [facility] 22:12:35 Mycosis 8035282 Active 2024 Not Available [facility] 22:10:03 Obstructi ve sleep apnea syndrome 12108348 Active 2024 Not Available [facility] 5 22:10:20 Acute urinary tract infection 095518552 Active 2024 Not Available [facility] 22:10:25 Alpha-1-a ntitrypsi n deficienc y 76512712 Active 2024 Not Available [facility] [facility] 5 22:10:34 Supravent ricular tachycard ia 1374498 Active 2024 [facility] 5 22:10:35 Abdominal discomfor t 03115555 Active 2024 Kimi giron null, [facility] 5 10:28:59 Screening colonosco py Active 2024 Kimi giron [facility], [facility] 5 10:34:05 Notes:Some problems listed i n Documents: #[id number], #[id number], #[id number] could not be added to this patient's [...] Name and Address Organization Details Recorded Time 5248194 fentanyl medicatio n headache Not available Not available 10/14/20232012 4337 RxNorm React ion: Heada syeda; Nause a; Vomit ing; Comme nt: React ion Date: 23 Aug 2013 Annot ation s: JUVENCIO SIEGEL [facility] 2012 9:08P M Per pt repor t.; ; Brenda Natarajan [facility] 5 14:41:09 7376641 prochlorp erazine medicatio n anxiety Not available Not available 05/13/20242017 8704 RxNorm Yoli Sauceda [facility] 5 11:23:17 1986375 sumatript an medicatio n itching Not available Not available 05/13/20242017 41951 RxNorm Brenda Natarajan [facility] 5 14:41:28 5903863 metoclopr amide Not available other Not available Not available 05/13/20242022 6915 RxNorm Brenda Natarajan [facility] 5 14:41:18 4678872 diphenhyd ramine hydrochlo ride medicatio n anxiety rash Not available Not available Not available 05/13/20242017 1362 RxNorm Yoli Sauceda [facility] 5 11:23:17 8143759 Duragesic medicatio n headache Not available Not available 06/22/20242012 95456 8 RxNorm React ion: Heada syeda; Nause a; Vomit ing; Comme nt: React ion Date: 23 Aug 2013 Annot ation s: JUVENCIO SIEGEL 2012 9:08P M Per pt repor t.; ; Brenda Natarajan [facility] 5 14:41:05 8667716 Compazine medicatio n other Not available Not available 11/02/2024 95496 6 RxNorm irrit abili ty Brendaaraseli Natarajan [facility] 5 14:41:50 9903984 Imdur medicatio n anxiety insomnia Not available Not available [facility] 05/30/2025 66897 2 RxNorm Melissa Macias PA-C [address] [place] [address], [phone] [place] [address] 5 10:19:27 394016 Biaxin medicatio n nausea Not available Not available 10/12/20232006 42991 9 RxNorm React ion: Nause a; Not Available [facility] 4 21:45:38 970533 sumatript an succinate medicatio n Not available Not available Not available 10/12/20232006 06282 RxNorm React ion: Short ness of breat h; Arrhy thmia ; Not Available [facility] 4 21:45:39 405752 ciproflox acin hydrochlo ride medicatio n Not available Not available Not available 10/12/20232006 45926 RxNorm React ion: Synco pe; Short ness of breat h; Brenda Natarajan [facility] 5 14:40:56 636557 Demerol medicatio n Not available Not available Not available 10/12/20232008 32792 1 RxNorm Comme nt: Annot ation s: ISAAC YCAM ON 2008 3:38P M NAUSE A; ; [facility] 5 14:40[facility]59 706141 morphine sulfate medicatio n Not available Not available Not available 10/12/20232008 46714 RxNorm Comme nt: Tanya ation s: GRUND Y, BRAND ON 2008 3:39P M NAUSE A; ; [facility] 5 14:41:15 401417 hydromorp basim hydrochlo ride medicatio n Not available Not available Not available 10/12/2023200817 7 RxNorm Comme nt: Annot ation s: GRUND Y, BRAND ON 2008 3:39P M NAUSE A; ; [facility] 5 14:41:12 Medications Name Sig [...] Available Not Available Not Available Dexcom G7 [employer] Consultant USE PER MANUFACT URER DIRECTIO NS 09/05 [...] cm 81 /min 98 % 42.3 kg/m2 927184. 94 g 132/64 mm[Hg] Audrey Tirado [facility] 5 15:04:05 Date Recorded Body height Body mass index (BMI) Body weight Heart rate Respiratory rate Oxygen saturation Systolic And Diastolic Provider Name and Address Organization Details Last Updated DateTime 5 170.18 cm 42.4 kg/m2 309433. 53 g 76 /min 16 /min 97 % 134/62 mm[Hg] Yoli Sauceda [facility] 5 11:51:09 Social History Question Answer Notes LastModified by [employer] Details LastModified Time Tobacco Smoking Status Never [...] Do You Have A Medical Power Of Battery Hand? Yes [email or web address] Information not available 06/13/2024 What Was The Date Of Your Most Recent Tobacco Screening? 07/04/2025 [email or web address] Information not available 07/04/2025 What Is Your Relationship Status? [email or web address] Information not available 06/13/2024 Has Tobacco Cessation Counseling Been Provided? Yes [email or web address] Information not available 03/28/2025 On What Date Was Tobacco Cessation Counseling Provided? 03/28/2025 Information not available 03/28/2025 Sex: Unknown Functional Status Question Answer Note LastModified by [employer] Details LastModified Time How many times per [...] MDCK, trivalent, PF 5 completed Yoli Sauceda [facility] 09/05/2025 13:00:50 Influenza, recombinant, quadrivalent, PF 1 completed Brenda Natarajan [facility] 11/02/2024 14:40:15 Influenza, recombinant, quadrivalent, PF 0 completed Brenda Natarajan [facility] 11/02/2024 14:40:15 zoster recombinant 1 completed [facility]/02/2024 14:40:15 zoster recombinant 1 completed Brenda Natarajan [facility] 11/02/2024 14:40:15 COVID-19, mRNA, LNP-S, PF, 100 mcg/0.5mL dose or 50 mcg/0.25mL dose 1 completed Brenda Natarajan [facility] 11/02/2024 14:40:15 COVID-19, mRNA, LNP-S, PF, 100 mcg/0.5mL dose or 50 mcg/0.25mL dose 1 completed Brenda Natarajan [facility] 11/02/2024 14:40:15 COVID-19, mRNA, LNP-S, PF, 100 mcg/0.5mL dose or 50 mcg/0.25mL dose 1 completed Brenda Natarajan [facility] 11/02/2024 14:40:15 pneumococcal polysaccharide PPV23 1 completed [facility] 11/02/2024 14:40:15 influenza, unspecified formulation 4 completed Brenda Natarajan [facility] 11/02/2024 14:40:15 influenza, unspecified formulation 4 completed Brenda Natarajan [facility] 11/02/2024 14:40:15 influenza, unspecified formulation 3 completed Brenda Natarajan [facility] 11/02/2024 14:40:15 Tdap 7 completed Brenda Natarajan [facility] 11/02/2024 14:40:15 Influenza, split virus, trivalent, preservative 1 completed Brendaaraseli Natarajan [facility] 11/02/2024 14:40:15 Influenza, split virus, quadrivalent, PF 7 completed Brendaaraseli Natarajan [facility] 11/02/2024 14:40:15 Past Encounters Encounter ID Performer Location Encounter Start Date Encounter Closed Date Diagnosis/Indication Diagnosis SNOMED-CT Code Diagnosis ICD10 Code Diagnosis IMO Codes Diagnosis Note [id number] VINICIUS PRITCHARD, JOSE G [address] [facility] ([place]) [address] [place] [address],[address] [place] [address] 09/05/2025 14:58:07 09/05/2025 15:23:54 Hypercholesterolemia 46521238 E78.00 Hypertensive disorder 38 625717 I10 Coronary arteriosclerosis 65524035 I25.10 242932 Dyspnea on exertion 6084 5006 R06.09 383049 [id number] Melissa Macias PA-C [facility] ([place]) [address] [place] [phone] 09/05/2025 11:28:18 09/05/2025 16:08:15 Migraine 35734568 G43.909 Essential hypertension 28489208 I10 Gastropare sis syndrome 989302708 K31.84 Primary insomnia 4545455 F51.01 Gastroesop hageal reflux disease 537279530 K21.9 Hyperlipidemia 63133442 E78.5 Restless l egs syndrome 96415228 G25.81 Persistent depressive disorder 3473532199 F34.1 also anxiety and helps with hot flashes Fibromyalgia 583746641 M 79.7 Active immunization 3387 9002 Z23 9676612 Health Concerns Section Related Observation LastModified by Organization Detai ls LastModified Time None Recorded Concern Status LastModified by Organization Details LastModified Time None Recorded Payers Encounter Date Sequence Insurance Name Policy Number Policy Garcia Covered Member ID Garcia Member ID Guarantor Name 09/05/2025 2 [place]: [employer] Leti White [id number] Leti White 09/05/2025 1 [facility] (MEDICARE REPLACEMENT/A DVANTAGE - PPO) [id number] Leti White [id number] Leti White Notes Date Note Type Note Provider Name and Address Organization Details Recorded Time 5 text/html Leti White is a pleasant [...] echo, 05/10/2024, which showed no evidence of ischemia.IMPRESSION:54-y ear-old female comes in for a follow-up visit. [...] concerns.All questions answered.Followup visit in 1 year. VINICIUS PRITCHARD, JOSE G [address] [place] [address], [phone], [facility] 09/05/2025 15:19:54 5 text/html Leti Gallego a 54 year oldfemalepresenting for care. Date of last pap smear:2Date of last mammogram:06/14/2022 Patient here for med check. Needs refills.-Scheduled for EGD and colonoscopy 09/28/25-wants to discuss CT Not Available Not Available Not Available OBGyn Episode No OBEpisode recorded.
--- OUTSIDE RECORDS SUMMARY | 2025-09-05 21:30 | XMS_ITS ---
Author Organization Unknown Address [address] [place] [address] [phone] Phone Care Team Providers Care Furniture Finisher Name Role Phone YRN ZEPEDA Attending Unavailable PINKY Kyle Primary Unavailable Social History Type Status Start Date End Date Code Code Syst em Smoking History Never smoker (Never Smoked) 785476446 SNOMED CT Sex Female Vital Signs Vital Sign Value Unit [place] Value [place] Unit Date/Time Recent/Initial? Code Code System Body Mass Index 43.54 kg/m2 02/28/2025 20:59 Initial 22490 -5 LOINC Systolic Blood Pressure 150 mm[Hg] [...] Saturation 95 % 2024 22:07 Most Recent 72962 -5 LOINC O2 Saturation 96 % 2024 20:59 Initial 99480 -5 LOINC Pulse 60.0 /min 02/28/2025 22:07 Most Recent 8867- 4 LOINC Pulse 76.0 /min 02/28/2025 20:59 Initial 8867- 4 LOINC Respiration 17 /min 02/29/20 25 22:07 Most Recent 9279- 1 LOINC Respiration 17 /min 02/29/20 20:59 Initial 9279- 1 [facility] Temperature 36.6 Alexandrea 97.8 F 02/29/20 20:59 Initial 8310- 5 [facility] Weight 126.10 kg 278.00 lbs 02/28/2025 20:59 Initial 81976 -7 [facility] Medications Medication Start Date End Date Route Frequency Dose Code Code System Medication Instructions Home Meds Lidoderm 5% Topical application Patch, Extended Release 11/02/2024 02/28/2025 1 5081986 RxNorm 1 patch daily Zofran 4MG Oral Tablet 05/03/2025 Unknown ORAL EVERY 6 HOURS 1 TABLET 795200 RxNorm TAKE 1 TABLET ORAL EVERY 6 [...] Code Code System CHRONIC NECK PAIN active 468626162962 7 SNOMED-CT DISORDER OF ROTATOR CUFF active 173390472 SNOMED-CT SPRAIN OF LEFT SHOULDER active 33591580399693819 SNOMED-CT CHRONIC BACK PAIN active 720906568 SN OMED-CT CHRONIC MIGRAINE active 964070948 SNO MED-CT DIABETES active 15452461 SNOMED-CT GASTROPARESES active 605388448 SNOMED -CT ERIKA CELL NEOPLASM active 559776954 SNOMED-CT HYPERTENSION active 43961487 SNOMED- CT DRUG SEEKING BEHAVIOR active 54301337 SNOMED-CT MALINGERING active 30336723 SNOMED-C 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 10/24/2024 resolved 48646101 SNOMED-CT Allergies and Adverse Reactions Allergy Substance Reaction Severity Start Date Concern Status Code Code System PROCHLORPERAZINE go crazy (SNOMED-CT: null) Severe Active 8704 RxNorm ISOSORBIDE MONONITRATE SOB, anxiety (SNOMED-CT: null) Active 58411 RxNorm CLARITHROMYCIN Vomiting (SNOMED-CT: 359649447) Severe Active 53251 RxNorm BENADRYL went crazy (SNOMED-CT: null) Severe Active 20340118 RxNorm IMITREX Tachycardia (SNOMED-CT: 7136436) Moderate Active 042071 RxNorm Plan of Treatment No Data Found Encounters Encounter Diagnosis Start Date Code Code Sys tem Migraine 02/28/2025 56412711 SNOMED-CT Personal Care Team Section
--- OUTSIDE RECORDS SUMMARY | 2025-09-05 21:30 | XMS_ITS ---
Author Organization Unknown Address [address] [place] [address] [phone] Phone Care Team Providers Care Convention Services Manager Name Role Phone ABOOD ADEL Attending Unavailable CARRILLO COATS Primary Unavailable Social History Type Status Start Date End Date Code Code Syst em Smoking History Never smoker (Never Smoked) 251458836 SNOMED CT Sex Female Vital Signs Vital Sign Value Unit [place] Value [place] Unit Date/Time Recent/Initial? Code Code System Body Mass Index 42.60 kg/m2 06/30/2025 20:01 Initial 67087 -5 [facility] Systolic Blood Pressure 163 mm[Hg] 06/30/2025 20:01 Initial 8480- 6 [facility] Diastolic Blood Pressure 82 mm[Hg] 06/30/2025 20:01 Initial 8462- 4 [facility] Body Surface Area 2.42 m2 06/30/2025 20:01 Initial 3140- 1 LOINC Height 170.180 0 cm 67.00 in 06/30/2025 20:01 Initial 8302- 2 [facility] O2 Saturation 97 % 2024 20:01 Initial 89706 -5 [facility] Pulse 97.0 /min 06/30/2025 20:01 Initial 8867- 4 [facility] Respiration 20 /min 06/30/20 20:01 Initial 9279- 1 [facility]INC Temperature 36.9 Alexandrea 98.4 F 06/30/20 20:01 Initial 8310- 5 [facility] Weight 123.38 kg 272.00 lbs 06/30/2025 20:01 Initial 30814 -7 [facility] Medications Medication Start Date End Date Route Frequency Dose Code Code System Medication Instructions Home Meds Zofran 4MG Oral Tablet 05/03/2025 Unknown ORAL EVERY 6 HOURS 1 TABLET 602956 RxNorm TAKE 1 TABLET ORAL EVERY 6 [...] Code Code System CHRONIC NECK PAIN active 702318066355 7 SNOMED-CT DISORDER OF ROTATOR CUFF active 852530524 SNOMED-CT SPRAIN OF LEFT SHOULDER active 07764941772748292 SNOMED-CT CHRONIC BACK PAIN active 547708035 SN OMED-CT CHRONIC MIGRAINE active 222107125 SNO MED-CT DIABETES active 53031239 SNOMED-CT GASTROPARESES active 543907193 SNOMED -CT ERIKA CELL NEOPLASM active 032928982 SNOMED-CT HYPERTENSION active 27017789 SNOMED- CT DRUG SEEKING BEHAVIOR active 16994554 SNOMED-CT MALINGERING active 31239022 SNOMED-C 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 10/24/2024 resolved 75604016 SNOMED-CT Allergies and Adverse Reactions Allergy Substance Reaction Severity Start Date Concern Status Code Code System PROCHLORPERAZINE go crazy (SNOMED-CT: null) Severe Active 8704 RxNorm ISOSORBIDE MONONITRATE SOB, anxiety (SNOMED-CT: null) Active 27230 RxNorm CLARITHROMYCIN Vomiting (SNOMED-CT: 766470824) Severe Active 00960 RxNorm BENADRYL went crazy (SNOMED-CT: null) Severe Active 054794 RxNorm IMITREX Tachycardia (SNOMED-CT: 8255688) Moderate Active 975594 RxNorm Plan of Treatment No Data Found Encounters Encounter Diagnosis Start Date Code Code Sys tem Malingerer [conscious simulation] 06/30/2025 SNOMED-CT Personal Care Team Section
--- OUTSIDE RECORDS SUMMARY | 2025-09-05 21:30 | XMS_ITS ---
Author Organization Unknown Address [address] [place] [address] [phone] Phone Care Team Providers Care Printed Circuit Board Panels Developer Name Role Phone KEHINDE HERON Hussein Attending Unavailable CARRILLO COATS Primary Unavailable Social History Type Status Start Date End Date Code Code Syst em Smoking History Never smoker (Never Smoked) 890028734 SNOMED CT Sex Female Vital Signs Vital Sign Value Unit [place] Value [place] Unit Date/Time Recent/Initial? Code Code System Body Mass Index 42.69 kg/m2 06/19/2025 20:12 Initial 69786 -5 LOINC Systolic Blood Pressure 165 mm[Hg] [...] Saturation 95 % 2024 21:41 Most Recent 38111 -5 LOINC O2 Saturation 98 % 2024 01:29 Initial 50514 -5 LOINC Pulse 88.0 /min 06/19/2025 21:41 Most Recent 8867- 4 LOINC Pulse 88.0 /min 06/19/2025 01:29 Initial 8867- 4 LOINC Respiration 22 /min 06/19/20 21:41 Most Recent 9279- 1 LOINC Respiration 20 /min 06/19/20 01:29 Initial 9279- 1 [facility] Temperature 36.8 Alexandrea 98.3 F 06/19/20 20:12 Initial 8310- 5 [facility] Weight 123.65 kg 272.60 lbs 06/19/2025 20:12 Initial 06517 -7 [facility] Medications Medication Start Date End Date Route Frequency Dose Code Code System Medication Instructions Home Meds Zofran 4MG Oral Tablet 05/03/2025 Unknown ORAL EVERY 6 HOURS 1 TABLET 730305 RxNorm TAKE 1 TABLET ORAL EVERY 6 [...] Code Code System CHRONIC NECK PAIN active 286587379566 7 SNOMED-CT DISORDER OF ROTATOR CUFF active 844922186 SNOMED-CT SPRAIN OF LEFT SHOULDER active 56366520899967792 SNOMED-CT CHRONIC BACK PAIN active 115402179 SN OMED-CT CHRONIC MIGRAINE active 709094799 SNO MED-CT DIABETES active 64692482 SNOMED-CT GASTROPARESES active 921204172 SNOMED -CT ERIKA CELL NEOPLASM active 524620288 SNOMED-CT HYPERTENSION active 07193261 SNOMED- CT DRUG SEEKING BEHAVIOR active 78996017 SNOMED-CT MALINGERING active 32409458 SNOMED-C 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 10/24/2024 resolved 81941006 SNOMED-CT Allergies and Adverse Reactions Allergy Substance Reaction Severity Start Date Concern Status Code Code System PROCHLORPERAZINE go crazy (SNOMED-CT: null) Severe Active 8704 RxNorm ISOSORBIDE MONONITRATE SOB, anxiety (SNOMED-CT: null) Active 77614 RxNorm CLARITHROMYCIN Vomiting (SNOMED-CT: 019597438) Severe Active 75974 RxNorm BENADRYL went crazy (SNOMED-CT: null) Severe Active 593574 RxNorm IMITREX Tachycardia (SNOMED-CT: 0952077) Moderate Active 072866 RxNorm Plan of Treatment No Data Found Encounters Encounter Diagnosis Start Date Code Code Sys tem Migraine, unspecified, not i ntractable, without status migrainosus 06/19/2025 SNOMED-CT Personal Care Team Section
--- OUTSIDE RECORDS SUMMARY | 2025-09-05 21:30 | XMS_ITS ---
Author Organization Unknown Address [address] [place] [address] [phone] Phone Care Team Providers Care Terrazzo Mechanic Name Role Phone ABOOD ADEL Attending Unavailable CARRILLO COATS Primary Unavailable Social History Type Status Start Date End Date Code Code Syst em Smoking History Never smoker (Never Smoked) 593173406 SNOMED CT Sex Female Vital Signs Vital Sign Value Unit [place] Value [place] Unit Date/Time Recent/Initial? Code Code System Body Mass Index 43.85 kg/m2 11/02/2024 21:07 Initial 53538 -5 LOINC Systolic Blood Pressure 166 mm[Hg] [...] Saturation 98 % 2024 21:57 Most Recent 89855 -5 LOINC O2 Saturation 99 % 2024 21:07 Initial 23034 -5 LOINC Pulse 60.0 /min 11/02/2024 21:57 Most Recent 8867- 4 LOINC Pulse 64.0 /min 11/02/2024 21:07 Initial 8867- 4 LOINC Respiration 17 /min 11/02/19 21:57 Most Recent 9279- 1 LOINC Respiration 20 /min 11/02/19 21:07 Initial 9279- 1 [facility] Temperature 36.7 Alexandrea 98.0 F 11/02/19 21:07 Initial 8310- 5 [facility] Weight 127.01 kg 280.00 lbs 11/02/2024 21:07 Initial 89471 -7 [facility] Medications Medication Start Date End Date Route Frequency Dose Code Code System Medication Instructions Home Meds Lidoderm 5% Topical application Patch, Extended Release 11/02/2024 02/28/2025 1 4338547 RxNorm 1 patch daily Zofran 4MG Oral Tablet 05/03/2025 Unknown ORAL EVERY 6 HOURS 1 TABLET 390230 RxNorm TAKE 1 TABLET ORAL EVERY 6 [...] Code Code System CHRONIC NECK PAIN active 216825892665 7 SNOMED-CT DISORDER OF ROTATOR CUFF active 751284122 SNOMED-CT SPRAIN OF LEFT SHOULDER active 59942537044066693 SNOMED-CT CHRONIC BACK PAIN active 747468484 SN OMED-CT CHRONIC MIGRAINE active 823901339 SNO MED-CT DIABETES active 13724875 SNOMED-CT GASTROPARESES active 185272026 SNOMED -CT ERIKA CELL NEOPLASM active 304514131 SNOMED-CT HYPERTENSION active 68065875 SNOMED- CT DRUG SEEKING BEHAVIOR active 87050234 SNOMED-CT MALINGERING active 39026033 SNOMED-C 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 10/24/2024 resolved 40763099 SNOMED-CT Allergies and Adverse Reactions Allergy Substance Reaction Severity Start Date Concern Status Code Code System PROCHLORPERAZINE go crazy (SNOMED-CT: null) Severe Active 8704 RxNorm ISOSORBIDE MONONITRATE SOB, anxiety (SNOMED-CT: null) Active 80476 RxNorm CLARITHROMYCIN Vomiting (SNOMED-CT: 333458243) Severe Active 36601 RxNorm BENADRYL went crazy (SNOMED-CT: null) Severe Active 353149 RxNorm IMITREX Tachycardia (SNOMED-CT: 4425781) Moderate Active 521507 RxNorm Plan of Treatment No Data Found Encounters Encounter Diagnosis Start Date Code Code Sys tem Backache 11/02/2024 155449303 SNOMED-CT Personal Care Team Section Discharge Summary Notes CANDY Hua O 11/02/2024 22:23 filter failed to render (id: '${filterNoteHistoryId}') filter failed to render (id: '${filterNoteHistoryId}') filter failed to render (id: '${filterNoteHistoryId}') ED Nursing Discharge Disposition Checklist Stop times completed in order chronology for all IV fluids / IVPB medications I & O's entered in vital signs Discharge [ x ] Home [ ] retirement [ ] Detention [ ] Left AMA [ ] AMA [...]
--- OUTSIDE RECORDS SUMMARY | 2025-09-05 21:30 | XMS_ITS ---
Author Organization Unknown Address [address] [place] [address] [phone] Phone Care Team Providers Care Decorative Engraver Apprentice Name Role Phone DEBORAH GARCIA Registered Nurse Unavailable COLBY JONES Attending Unavailable CARRILLO COATS Primary Unavailable Social History Type Status Start Date End Date Code Code Syst em Smoking History Never smoker (Never Smoked) 337515105 SNOMED CT Sex Female Vital Signs Vital Sign Value Unit Ch[place] Value [place] Unit Date/Time Recent/Initial? Code Code System Body Mass Index 42.38 kg/m2 07/11/2025 15:20 Initial 74928 -5 LOINC Systolic Blood Pressure 119 mm[Hg] [...] O2 Saturation 98 % 2024 15:20 Initial 33844 -5 LOINC Pulse 81.0 /min 07/11/2025 18:50 Most Recent 8867- 4 LOINC Pulse 84.0 /min 07/11/2025 15:20 Initial 8867- 4 LOINC Respiration 20 /min 07/11/20 18:50 Most Recent 9279- 1 LOINC Respiration 20 /min 07/11/20 15:20 Initial 9279- 1 LOINC Temperature 37.1 Alexandrea 98.7 F 07/11/20 15:20 Initial 8310- 5 [facility] Weight 122.74 kg 270.60 lbs 07/11/2025 15:20 Initial 45204 -7 [facility] Medications Medication Start Date End Date Route Frequency Dose Code Code System Medication Instructions Home Meds Zofran 4MG Oral Tablet 05/03/2025 Unknown ORAL EVERY 6 HOURS 1 TABLET 091257 RxNorm TAKE 1 TABLET ORAL EVERY 6 [...] Code Code System CHRONIC NECK PAIN active 926122256726 7 SNOMED-CT DISORDER OF ROTATOR CUFF active 602160750 SNOMED-CT SPRAIN OF LEFT SHOULDER active 70571963083615918 SNOMED-CT CHRONIC BACK PAIN active 709088805 SN OMED-CT CHRONIC MIGRAINE active 673791611 SNO MED-CT DIABETES active 31460491 SNOMED-CT GASTROPARESES active 403453568 SNOMED -CT ERIKA CELL NEOPLASM active 388167362 SNOMED-CT HYPERTENSION active 13088700 SNOMED- CT DRUG SEEKING BEHAVIOR active 20811110 SNOMED-CT MALINGERING active 15197279 SNOMED-C 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 10/24/2024 resolved 51551219 SNOMED-CT Allergies and Adverse Reactions Allergy Substance Reaction Severity Start Date Concern Status Code Code System PROCHLORPERAZINE go crazy (SNOMED-CT: null) Severe Active 8704 RxNorm ISOSORBIDE MONONITRATE SOB, anxiety (SNOMED-CT: null) Active 04689 RxNorm CLARITHROMYCIN Vomiting (SNOMED-CT: 481056316) Severe Active 47050 RxNorm BENADRYL went crazy (SNOMED-CT: null) Severe Active 806436 RxNorm IMITREX Tachycardia (SNOMED-CT: 7970372) Moderate Active 405596 RxNorm Plan of Treatment No Data Found Encounters Encounter Diagnosis Start Date Code Code Sys tem Migraine, unspecified, not i ntractable, without status migrainosus 07/11/2025 SNOMED-CT Personal Care Team Section
--- OUTSIDE RECORDS SUMMARY | 2025-09-05 21:31 | XMS_ITS ---
Author Organization Unknown Address [address] [place] [address] [phone] Phone Care Team Providers Care Consumer Loan Officer Name Role Phone DEBORAH GARCIA Registered Nurse Unavailable YRN ZEPEDA Attending Unavailable PINKY Kyle Primary Unavailable Social History Type Status Start Date End Date Code Code Syst em Smoking History Never smoker (Never Smoked) 735938033 SNOMED CT Sex Female Vital Signs Vital Sign Value Unit [place] Value [place] Unit Date/Time Recent/Initial? Code Code System Systolic Blood Pressure 117 mm[Hg] 01/06/2025 17:55 Most Recent 8480-6 LOINC Diastolic Blood Pressure 84 mm[Hg] 01/06/2025 17:55 Most Recent 8462-4 LOINC Systolic Blood Pressure 145 mm[Hg] 01/06/2025 17:19 Initial 8480-6 LOINC Diastolic Blood Pressure 75 mm[Hg] 01/06/2025 17:19 Initial 8462-4 LOINC O2 Saturation 98 % 2024 17:55 Most Recent 77417- 5 LOINC O2 Saturation 94 % 2024 17:19 Initial 15193- 5 LOINC Pulse 63.0 /min 01/06/2025 17:55 [...] application Patch, Extended Release 11/02/2024 02/28/2025 1 9306565 RxNorm 1 patch daily Zofran 4MG Oral Tablet 05/03/2025 Unknown ORAL EVERY 6 HOURS 1 TABLET 449632 RxNorm TAKE 1 TABLET ORAL EVERY 6 [...] Code Code System CHRONIC NECK PAIN active 041312497414 7 SNOMED-CT DISORDER OF ROTATOR CUFF active 092433678 SNOMED-CT SPRAIN OF LEFT SHOULDER active 48898360947323242 SNOMED-CT CHRONIC BACK PAIN active 322331350 SN OMED-CT CHRONIC MIGRAINE active 449425256 SNO MED-CT DIABETES active 29343508 SNOMED-CT GASTROPARESES active 206786800 SNOMED -CT ERIKA CELL NEOPLASM active 201843010 SNOMED-CT HYPERTENSION active 27581798 SNOMED- CT DRUG SEEKING BEHAVIOR active 60364065 SNOMED-CT MALINGERING active 81973892 SNOMED-C 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 10/24/2024 resolved 42908251 SNOMED-CT Allergies and Adverse Reactions Allergy Substance Reaction Severity Start Date Concern Status Code Code System PROCHLORPERAZINE go crazy (SNOMED-CT: null) Severe Active 8704 RxNorm ISOSORBIDE MONONITRATE SOB, anxiety (SNOMED-CT: null) Active 90631 RxNorm CLARITHROMYCIN Vomiting (SNOMED-CT: 384337470) Severe Active 19844 RxNorm BENADRYL went crazy (SNOMED-CT: null) Severe Active 246750 RxNorm IMITREX Tachycardia (SNOMED-CT: 5245930) Moderate Active 001268 RxNorm Plan of Treatment No Data Found Encounters Encounter Diagnosis Start Date Code Code Sys tem Neck pain 01/06/2025 82442569 SNOMED-CT Personal Care Team Section
--- OUTSIDE RECORDS SUMMARY | 2025-09-05 21:31 | XMS_ITS ---
Author Organization Unknown Address [address] [place] [address] [phone] Phone Care Team Providers Care Psychiatric Nurse Practitioner Name Role Phone COLBY SHADI JONES Attending Unavailable CARRILLO COATS Primary Unavailable Social History Type Status Start Date End Date Code Code Syst em Smoking History Never smoker (Never Smoked) 643898437 SNOMED CT Sex Female Vital Signs Vital Sign Value Unit [place] Value [place] Unit Date/Time Recent/Initial? Code Code System Body Mass Index 41.66 kg/m2 05/31/2025 19:33 Initial 98003 -5 LOINC Systolic Blood Pressure 135 mm[Hg] [...] Saturation 95 % 2024 20:43 Most Recent 19916 -5 LOINC O2 Saturation 97 % 2024 19:33 Initial 36910 -5 LOINC Pulse 85.0 /min 05/31/2025 20:43 Most Recent 8867- 4 LOINC Pulse 92.0 /min 05/31/2025 19:33 Initial 8867- 4 LOINC Respiration 17 /min 05/31/20 20:43 Most Recent 9279- 1 LOINC Respiration 20 /min 05/31/20 19:33 Initial 9279- 1 [facility] Temperature 36.8 Alexandrea 98.2 F 05/31/20 19:33 Initial 8310- 5 [facility] Weight 120.66 kg 266.00 lbs 05/31/2025 19:33 Initial 38490 -7 [facility] Medications Medication Start Date End Date Route Frequency Dose Code Code System Medication Instructions Home Meds Zofran 4MG Oral Tablet 05/03/2025 Unknown ORAL EVERY 6 HOURS 1 TABLET 500290 RxNorm TAKE 1 TABLET ORAL EVERY 6 [...] Code Code System CHRONIC NECK PAIN active 434222315036 7 SNOMED-CT DISORDER OF ROTATOR CUFF active 639725048 SNOMED-CT SPRAIN OF LEFT SHOULDER active 91435086321725879 SNOMED-CT CHRONIC BACK PAIN active 388181286 SN OMED-CT CHRONIC MIGRAINE active 309902135 SNO MED-CT DIABETES active 23859995 SNOMED-CT GASTROPARESES active 179308897 SNOMED -CT ERIKA CELL NEOPLASM active 553152580 SNOMED-CT HYPERTENSION active 14986160 SNOMED- CT DRUG SEEKING BEHAVIOR active 15860418 SNOMED-CT MALINGERING active 11859392 SNOMED-C 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 10/24/2024 resolved 68119638 SNOMED-CT Allergies and Adverse Reactions Allergy Substance Reaction Severity Start Date Concern Status Code Code System PROCHLORPERAZINE go crazy (SNOMED-CT: null) Severe Active 8704 RxNorm ISOSORBIDE MONONITRATE SOB, anxiety (SNOMED-CT: null) Active 36193 RxNorm CLARITHROMYCIN Vomiting (SNOMED-CT: 005261866) Severe Active 00791 RxNorm BENADRYL went crazy (SNOMED-CT: null) Severe Active 628005 RxNorm IMITREX Tachycardia (SNOMED-CT: 2647294) Moderate Active 580549 RxNorm Plan of Treatment No Data Found Encounters Encounter Diagnosis Start Date Code Code Sys tem Migraine, unspecified, not i ntractable, without status migrainosus 05/31/2025 SNOMED-CT Personal Care Team Section
--- OUTSIDE RECORDS SUMMARY | 2025-09-05 21:31 | XMS_ITS | Continuity of Care Document ---
Author Organization [facility], [facility] ([place]) Address [address] [place] [address] Care Team Providers Care Shoe Maker Name Role Phone DRAKE FARRIS Supervisor Kennel PAULY VIZCAINO Primary Care Provider PAULY VIZCAINO Referring Provider [phone] DELIA HALL Carpet Weaver Assessment Encounter Date Assessment Date Assessment LastModified [...] any questions or concerns in between appointments. [email or web address] Not available 08/03/2025 14:32:53 Plan of Treatment Reminders Order Date Submit Date Provider Last Modified By Organization Details Last Modified Time Details Appointments Compl ete Physi radha Adult 40.ES T 2024 10:40A M Melissa Salinasell Not available Not available Not available Estab judy Brunnere nt 15.ES T 2024 02:00P M Vinicius Ferrill Not available Not [...] Not available Pulm Funct ion Metha choli ne.[place] O 2025 02:00P M Pulmonary Diseases & [...] Brunnere nt 15.ES T 2025 02:00P M Vinicius [...] LastModifiedTime 07/25/2007/25/2025 UACS color Yellow Not Available Vt Only - [facility] [address] [place] [address], [id number], 07/25/2025 19:55:43 07/25/2007/25/2025 UACS appearance Hazy Not Avail able Vt Only - [facility] [address] [place] [address], [id number], 07/25/2025 19:55:43 07/25/2007/25/2025 UACS specific gravity 1.013 1.003- 1.035 Not Available Vt Only - [facility] [address] [place] [address], 69172, 07/25/2025 19:55:43 07/25/2007/25/2025 UACS pH urine 7.0 5.0-8. 0 Not Available Vt Only - [facility] [address] [place] [address], 91433, 07/25/2025 19:55:43 07/25/2007/25/2025 UACS protein Negati ve Not Available Vt Only - [facility] [address] [place] [address], 37429, 07/25/2025 19:55:43 07/25/20 25 07/25/2025 UACS urine glucose Negati ve Not Available Vt Only - [facility] [address] [place] [address], 11150, 07/25/2025 19:55:43 07/25/20 25 07/25/2025 UACS ketones Negati ve Not Available Vt Only - [facility] [address] [place] [address], 42922, 07/25/2025 19:55:43 07/25/20 25 07/25/2025 UACS urine bilirubin Negati ve Not Available Vt Only - [facility] [address] [place] [address], 69523, 07/25/2025 19:55:43 07/25/20 25 07/25/2025 UACS urine HGB Negati ve Not Available Vt Only - [facility] [address] [place] [address], 61834, 07/25/2025 19:55:43 07/25/20 25 07/25/2025 UACS nitrite Negati ve Not Available Vt Only - [facility] [address] [place] [address], 95553, 07/25/2025 19:55:43 07/25/20 25 07/25/2025 UACS leukocyte esterase 2+ abnormal Not Available Vt On y - [facility] [address] [place] [address], 93235, 07/25/2025 19:55:43 07/25/20 25 07/25/2025 UACS urobilinogen Negati ve Refer ence Range : <=1 Not Available Vt Only - [facility] [address] [place] [address], 25784, 07/25/2025 19:55:43 07/25/20 25 07/25/2025 UACS urine WBCs 11-25 abnormal Refer ence Range : <=5 Not Available Vt Only - [facility] [address] [place] [address], 39553, 07/25/2025 19:55:43 07/25/20 25 07/25/2025 UACS urine RBCs 0-2 Refer ence Range : <=2 Not Available Vt Only - [facility] [address] [place] [address], 33841, 07/25/2025 19:55:43 07/25/20 25 07/25/2025 UACS squamous epithelial cells 4+ abnormal Refer ence Range : <=3+ Not Available Vt Only - [facility] [address] [place] [address], 62484, 07/25/2025 19:55:43 07/25/20 25 07/25/2025 UACS bacteria 1+ abnormal Refer ence Range : <=Tra ce, Non-C ath Not Available Sc Only - [facility] [address] [place] [address], 87711, 07/25/2025 19:55:43 07/25/20 25 07/25/2025 UACS UA mucous Presen t Not Available Sc Only - [facility] [address] [place] [address], 12026, 07/25/2025 19:55:43 07/25/20 25 07/25/2025 UACS urine ascorbic acid Negati ve Ascor bic acid can inter fere with the detec tion of blood , gluco se, and nitri te. Not Available Sc Only - [facility] [address] [place] [address], 67928, 07/25/2025 19:55:43 07/25/20 25 07/25/2025 EGFR eGFR [...] Sc Only - [facility] [address] [place] [address], 34695, 07/25/2025 20:03:32 07/25/20 25 07/25/2025 MG magnesium 1.8 mg/dL 1.8-2. 4 Not Available Vt Only - [facility] [address] [place] [address], 19575, 07/25/2025 20:03:31 07/25/20 25 07/25/2025 LPSE lipase,serum 26 u/L 16-77 Not Dalila ilable Vt Only - [facility] [address] [place] [address], 89166, 07/25/2025 20:03:30 07/25/20 25 07/25/2025 LDH LD 158 u/L 81-234 Not Available Vt Only - [facility] [address] [place] [place] [address], 58659, 07/25/2025 20:03:28 07/25/20 25 07/25/2025 CMP sodium 141 mmol/ L 135-14 8 Not Available Vt Only - [facility] [address] [place] [address], 94772, 07/25/2025 20:03:27 07/25/20 25 07/25/2025 CMP potassium 4.4 mmol/ L 3.5-5. 3 Not Available Vt Only - [facility] [address] [place] [address], 94479, 07/25/2025 20:03:27 07/25/20 25 07/25/2025 CMP chloride 106 mmol/ L 96-112 Not Available Vt Only - [facility] [address] [place] [place] [address], 25821, 07/25/2025 20:03:27 07/25/20 25 07/25/2025 CMP CO2 28 mmol/ L 23-33 Not Available Vt Only - [facility] [address] [place] [place] [address], 41514, 07/25/2025 20:03:27 07/25/20 25 07/25/2025 CMP BUN 12 mg/dL 7-18 Not Available Vt Only - [facility] [address] [place] [address], [place], [address], 07/25/2025 20:03:27 07/25/20 25 07/25/2025 CMP creatinine 0.72 mg/dL 0.55-1 .02 Not Available Sc Only - [facility] [address] [place] [address], 85319, 07/25/2025 20:03:27 07/25/20 25 07/25/2025 CMP glucose 102 mg/dL 65-99 high Not Availabl e Sc Only - [facility] [address] [place] [address], 04260, 07/25/2025 20:03:27 07/25/20 25 07/25/2025 CMP calcium 8.5 mg/dL 8.5-10 .1 Not Available Vt Only - [facility] [address] [place] [address], 45747, 07/25/2025 20:03:27 07/25/20 25 07/25/2025 CMP total protein 6.8 g/dL 6.4-8. 2 Not Available Vt Only - [facility] [address] [place] [address], 04952, 07/25/2025 20:03:27 07/25/20 25 07/25/2025 CMP albumin 3.1 g/dL 3.4-5. 0 low Not Available Vt Only - [facility] [address] [place] [address], 52170, 07/25/2025 20:03:27 07/25/20 25 07/25/2025 CMP bilirubin (total) 0.5 mg/dL 0.2-1. 0 Not Available Sc Only - [facility] [address] [place] [address], 24572, 07/25/2025 20:03:27 07/25/20 25 07/25/2025 CMP AST 26 u/L 15-37 Not Available Sc Only - [facility] [address] [place] [address], 36935, 07/25/2025 20:03:27 07/25/20 25 07/25/2025 CMP alk phos 136 u/L 46-116 high Not Availab le Vt Only - [facility] [address] [place] [address], 48932, 07/25/2025 20:03:27 07/25/20 25 07/25/2025 CMP ALT 28 u/L 14-59 Not Available Vt Only - [facility] [address] [place] [place] [address], 00146, 07/25/2025 20:03:27 07/25/20 25 07/25/2025 CMP anion gap 7 mmol/ L 7-16 Not Available Vt Only - [facility] [address] [place] [address], 87704, 07/25/2025 20:03:27 07/25/20 25 07/25/2025 DBIL bilirubin (direct) 0.06 mg/dL 0.00-0 .20 Not Available Vt Only - [facility] [address] [place] [address], 47241, 07/25/2025 20:03:25 07/25/20 25 07/25/2025 CBCW/ DIFF WBC 6.56 x10 3.98-1 0.04 Not Available Vt Only - [facility] [address] [place] [address], 56760, 07/25/2025 19:47:06 07/25/20 25 07/25/2025 CBCW/ DIFF RBC 3.95 x10 3.93-5 .22 Not Available Vt Only - [facility] [address] [place] [address], 53351, 07/25/2025 19:47:06 07/25/20 25 07/25/2025 CBCW/ DIFF hemoglobin 10.7 g/dL 11.2-1 5.7 low Not Available [facility] [address] [place] [address], 37113, 07/25/2025 19:47:06 07/25/20 25 07/25/2025 CBCW/ DIFF hematocrit 32.8 % 34.1-4 4.9 low Not Available Sc Only - [facility] [address] [place] [address], 00928, 07/25/2025 19:47:06 07/25/20 25 07/25/2025 CBCW/ DIFF MCV 83.0 fL 79.4-9 4.8 Not Available Sc Only - [facility] [address] [place] [address], 99801, 07/25/2025 19:47:06 07/25/20 25 07/25/2025 CBCW/ DIFF MCH 27.1 pg 25.6-3 2.2 Not Available Sc Only - [facility] [address] [place] [address], 38120, 07/25/2025 19:47:06 07/25/20 25 07/25/2025 CBCW/ DIFF MCHC 32.6 g/dL 32.2-3 5.5 Not Available Sc Only - [facility] [address] [place] [address], 04022, 07/25/2025 19:47:06 07/25/20 25 07/25/2025 CBCW/ DIFF rdwcv 12.6 % 11.7-1 4.4 Not Available Sc Only - [facility] [address] [place] [address], 14673, 07/25/2025 19:47:06 07/25/20 25 07/25/2025 CBCW/ DIFF rdwsd 38.0 fL 36.4-4 6.3 Not Available Sc Only - [facility] [address] [place] [address], 93795, 07/25/2025 19:47:06 07/25/20 25 07/25/2025 CBCW/ DIFF platelets 210 x10 182-36 9 Not Available Sc Only - [facility] [address] [place] [address], 42456, 07/25/2025 19:47:06 07/25/20 25 07/25/2025 CBCW/ DIFF MPV 9.2 fL 9.4-12 .3 low Not Available Sc Only - [facility] [address] [place] [address], 56969, 07/25/2025 19:47:06 07/25/20 25 07/25/2025 AUTOD IFF neutrophils 59.8 % 34.0-7 1.1 Not Available Sc Only - [facility] [address] [place] [address], 41557, 07/25/2025 19:47:03 07/25/20 25 07/25/2025 AUTOD IFF lymphocytes 27.4 % 19.3-5 1.7 Not Available Sc Only - [facility] [address] [place] [address], 21990, 07/25/2025 19:47:03 07/25/20 25 07/25/2025 AUTOD IFF monocytes 8.4 % 4.7-12 .5 Not Available Sc Only - [facility] [address] [place] [address], 27097, 07/25/2025 19:47:03 07/25/20 25 07/25/2025 AUTOD IFF eosinophils 3.5 % 0.7-5. 8 Not Available Sc Only - [facility] [address] [place] [address], 30356, 07/25/2025 19:47:03 07/25/20 25 07/25/2025 AUTOD IFF basophils 0.6 % 0.1-1. 2 Not Available Sc Only - [facility] [address] [place] [address], 61922, 07/25/2025 19:47:03 07/25/20 25 07/25/2025 AUTOD IFF imm auto 0.3 % 0.0-1. 5 Not Available Sc Only - [facility] [address] [place] [address], 24756, 07/25/2025 19:47:03 07/25/20 25 07/25/2025 AUTOD IFF NRBC auto 0.0 /100W BC 0.0-0. 2 Not Available Sc Only - [facility] [address], [place], [address], 07/25/2025 19:47:03 07/25/20 25 07/25/2025 AUTOD IFF absolute neutrophils 3.92 x10 1.56-6 .13 Not Available Sc Only - [address], [address], 07/25/2025 19:47:03 07/25/20 25 07/25/2025 AUTOD IFF absolute lymphocytes 1.80 x10 1.18-3 .74 Not Available Vt Only - [address], 49[address], 07/25/2025 19:47:03 07/25/20 25 07/25/2025 AUTOD IFF absolute monocytes 0.55 x10 0.24-0 .36 high Not Available Vt Only - [address], 93019, 07/25/2025 19:47:03 07/25/20 25 07/25/2025 AUTOD IFF absolute eosinophils 0.23 x10 0.04-0 .36 Not Available Vt Only - [address], [address]2834, 07/25/2025 19:47:03 07/25/20 25 07/25/2025 AUTOD IFF absolute basophils 0.04 x10 0.01-0 .08 Not Available Vt Only - [address], 97092, 07/25/2025 19:47:03 07/25/20 25 07/25/2025 AUTOD IFF imm absolute 0.02 x10 0.00-0 .15 Not Available Vt Only - [address], 26429, 07/25/2025 19:47:03 07/25/20 25 07/25/2025 AUTOD IFF NRBC absolute 0.00 x10 0.00-0 .01 Not Available Sc Only - [facility] [address] [place] [address], 48376, 07/25/2025 19:47:03 07/25/20 25 07/28/2025 C URINE urine culture (new) abnormal Print Date/ Time: 07/28 08:28 CRAB STEAMER Patie nt: RICE, KATHL EEN P Micro biolo gy - Uroge nital Legen d: c=Cor recte d, F=Res ult Comme nt, S=Idalia cepti ble, I=Int ermed iate, R=Res istan t, N/A=N ot Appli cable PROCE DURE: Urine Cultu re [] ACCES LIA: [id number] SOURC E: Urine BODY SITE: COLLE CTED DATE/ TIME: 07/25 18:20 CRAB STEAMER RECEI ELVA DATE/ TIME: 07/25 19:08 CRAB STEAMER START DATE/ TIME: 07/25 19:08 CRAB STEAMER FREE TEXT SOURC E: FI NAL REPOR TS Final Repor t [] Verif ied Date/ Time: 07/28 08:28 CRAB STEAMER 30,00 0 cfu/m l Mixed sanket inclu ding Esche scott a coli and Strep tococ cus agala ctiae (Grou p B) [place] ELIMI NARY REPOR TS Preli minar y Repor t [] Verif ied Date/ Time: 07/27 06:37 CRAB STEAMER 30,00 0 cfu/m l Mixed sanket inclu ding Esche scott a coli Preli minar y Repor t [] Verif ied Date/ Time: 07/26 07:58 CRAB STEAMER Light growt h-cul ture reinc ubate d. Speci men recei elva after 6pm. Not Available Vt Only - [facility] [address] [place] [address], 65490, 07/28/2025 09:28:39 07/25/20 25 07/27/2025 C URINE urine culture (new) abnormal Print Date/ Time: 07/27 06:37 CRAB STEAMER Patie nt: JANINA WHITE EEN P Micro biolo gy - Uroge nital Legen d: c=Cor recte d, F=Res ult Comme nt, S=Idalia cepti ble, I=Int ermed iate, R=Res istan t, N/A=N ot Appli cable PROCE DURE: Urine Cultu re [] ACCES LIA: SOURC E: Urine BODY SITE: COLLE CTED DATE/ TIME: 07/25 18:20 CRAB STEAMER RECEI ELVA DATE/ TIME: 07/25 19:08 CRAB STEAMER START DATE/ TIME: 07/25 19:08 CRAB STEAMER FREE TEXT SOURC E: [place] ELIMI NARY REPOR TS Preli minar y Repor t [] Verif ied Date/ Time: 07/27 06:37 CRAB STEAMER 30,00 0 cfu/m l Mixed sanket inclu ding Esche scott a coli Preli minar y Repor t [] Verif ied Date/ Time: 07/26 07:58 CRAB STEAMER Light growt h-cul ture reinc ubate d. Speci men recei elva after 6pm. Not Available Vt Only - [facility] [address] [facility], [place], [address], 07/27/2025 07:37:47 07/25/2007/27/2025 C URINE urine culture (new) abnormal Print Date/ Time: 07/27 06:37 CRAB STEAMER Patie nt: JANINA WHITE P Micro biolo gy - Uroge nital Legen d: c=Cor recte d, F=Res ult Comme nt, S=Idalia cepti ble, I=Int ermed iate, R=Res istan t, N/A=N ot Appli cable PROCE DURE: Urine Cultu re [] ACCES LIA: SOURC E: Urine BODY SITE: COLLE CTED DATE/ TIME: 07/25 18:20 CRAB STEAMER RECEI ELVA DATE/ TIME: 07/25 19:08 CRAB STEAMER START DATE/ TIME: 07/25 19:08 CRAB STEAMER FREE TEXT SOURC E: [place] ELIMI NARY REPOR TS Preli minar y Repor t [] Verif ied Date/ Time: 07/27 06:37 CRAB STEAMER 30,00 0 cfu/m l Mixed sanket inclu ding Esche scott a coli Pre y Repor t [] Verif ied Date/ Time: 07/26 07:58 CRAB STEAMER Light growt h-cul ture reinc ubate d. Speci men recei elva after 6pm. Not Available [facility] [address] [place] [address], 91587, 07/27/2025 07:37:43 07/25/20 25 07/26/2025 C URINE urine culture (new) Print Date/ Time: 07/26 07:58 CRAB STEAMER Patie nt: JANINA WHITE EEN P Micro biolo gy - Uroge nital Legen d: c=Cor recte d, F=Res ult Comme nt, S=Idalia cepti ble, I=Int ermed iate, R=Res istan t, N/A=N ot Appli cable PROCE DURE: Urine Cultu re [] ACCES LIA: [id number] 915 SOURC E: Urine BODY SITE: COLLE CTED DATE/ TIME: 07/25 18:20 CRAB STEAMER RECEI ELVA DATE/ TIME: 07/25 19:08 CRAB STEAMER START DATE/ TIME: 07/25 19:08 CRAB STEAMER FREE TEXT SOURC E: [place] ELIMI NARY REPOR TS Pre y t [] Verif ied Date/ Time: 07/26 07:58 CRAB STEAMER Light growt h-cul ture reinc ubate d. Speci men recei elva after 6pm. Not Available Vt Only - [facility] [address] [place] [address], [id number], 07/26/2025 08:59:00 07/27/20 25 07/29/2025 C URINE urine culture (new) Print Date/ Time: 07/29 06:56 CRAB STEAMER Patie nt: RICE KATHL EEN P Micro biolo gy - Uroge nital Legen d: c=Cor recte d, F=Res ult Comme nt, S=Idalia cepti ble, I=Int ermed iate, R=Res istan t, N/A=N ot Appli cable PROCE DURE: Urine Cultu re [] ACCES LIA: 228 SOURC E: Urine BODY SITE: COLLE CTED DATE/ TIME: 07/27 19:31 CRAB STEAMER RECEI ELVA DATE/ TIME: 07/27 20:04 CRAB STEAMER START DATE/ TIME: 07/27 20:05 CRAB STEAMER FREE TEXT SOURC E: FI NAL REPOR TS Final Repor t [] Verif ied Date/ Time: 07/29 06:56 CRAB STEAMER 40,00 0 cfu/m l mixed sanket . [place] ELIMI NARY REPOR TS Preli minar y Repor t [] Verif ied Date/ Time: 07/28 06:43 CRAB STEAMER 20,00 0 cfu/m l Gram Negat jozef Rods Not Available Vt Only - [facility] [address], [address], 07/29/2025 07:56:40 07/27/20 25 07/27/2025 UACS color Yellow Not Available Vt Only - [facility] [address] [place] [address], 18422, 07/27/2025 21:03:00 07/27/20 25 07/27/2025 UACS appearance Hazy Not Avail able Vt Only - [facility] [address] [place] [address], 20825, 07/27/2025 21:03:00 07/27/20 25 07/27/2025 UACS specific gravity 1.014 1.003- 1.035 Not Available Vt Only - [facility] [address] [place] [address], 74834, 07/27/2025 21:03:00 07/27/20 25 07/27/2025 UACS pH urine 6.0 5.0-8. 0 Not Available Vt Only - [facility] [address] [place] [address], 00722, 07/27/2025 21:03:00 07/27/20 25 07/27/2025 UACS protein Negati ve Not Available Vt Only - [facility] [address] [place] [address], 60339, 07/27/2025 21:03:00 07/27/20 25 07/27/2025 UACS urine glucose Negati ve Not Available Vt Only - [facility] [address] [place] [address], 49669, 07/27/2025 21:03:00 07/27/20 25 07/27/2025 UACS ketones Negati ve Not Available [facility] [address] [place] [address], 65907, 07/27/2025 21:03:00 07/27/20 25 07/27/2025 UACS urine bilirubin Negati ve Not Available Vt Only - [facility] [address] [place] [address], 55702, 07/27/2025 21:03:00 07/27/20 25 07/27/2025 UACS urine HGB Negati ve Not Available Vt Only - [facility] [address] [place] [address], 53641, 07/27/2025 21:03:00 07/27/20 25 07/27/2025 UACS nitrite Negati ve Not Available [facility] [address] [place] [address], 46298, 07/27/2025 21:03:00 07/27/20 25 07/27/2025 UACS leukocyte esterase 1+ abnormal Not Available Vt On y - [facility] [address] [place] [address], 63174, 07/27/2025 21:03:00 07/27/20 25 07/27/2025 UACS urobilinogen Negati ve Refer ence Range : <=1 Not Available Vt Only - [facility] [address] [place] [address], 58818, 07/27/2025 21:03:00 07/27/2007/27/2025 UACS urine WBCs 11-25 abnormal Refer ence Range : <=5 Not Available Vt Only - [facility] [address] [place] [address], 17789, 07/27/2025 21:03:00 07/27/2007/27/2025 UACS urine RBCs 0-2 Refer ence Range : <=2 Not Available [facility] [address] [place] [address], 38823, 07/27/2025 21:03:00 07/27/2007/27/2025 UACS squamous epithelial cells 3+ Refer ence Range : <=3+ Not Available [facility] [address] [place] [address], 69787, 07/27/2025 21:03:00 07/27/2007/27/2025 UACS bacteria 1+ abnormal Refer ence Range : <=Tra ce, Non-C ath Not Available [facility] [address] [place] [address], 54634, 07/27/2025 21:03:00 07/27/2007/27/2025 UACS UA mucous Presen t Not Available [facility] [address] [place] [address], 21141, 07/27/2025 21:03:00 07/27/2007/27/2025 UACS urine ascorbic acid Negati ve Ascor bic acid can inter fere with the detec tion of blood , gluco se, and nitri te. Not Available [facility] [address] [place] [address], 03012, 07/27/2025 21:03:00 07/27/20 25 07/28/2025 C URINE urine culture (new) abnormal Print Date/ Time: 07/28 06:43 CRAB STEAMER Patie nt: JANINA WHITE P Micro biolo gy - Uroge nital Legen d: c=Cor recte d, F=Res ult Comme nt, S=Idalia cepti ble, I=Int ermed iate, R=Res istan t, N/A=N ot Appli cable PROCE DURE: Urine Cultu re [] ACCES LIA: 228 SOURC E: Urine BODY SITE: COLLE CTED DATE/ TIME: 07/27 19:31 CRAB STEAMER RECEI ELVA DATE/ TIME: 07/27 20:04 CRAB STEAMER START DATE/ TIME: 07/27 20:05 CRAB STEAMER FREE TEXT SOURC E: [place] ELIMI NARY REPOR TS Preli minar y Repor t [] Verif ied Date/ Time: 07/28 06:43 CRAB STEAMER 20,00 0 cfu/m l Gram Negat jozef Rods Not Available Vt Only - [facility] [address] [place] [address], 03098, 07/28/2025 07:43:27 07/27/20 25 07/27/2025 EGFR eGFR [...] se (CKD) is prese nt. Not Available Vt Only - [facility] [address] [place] [address], 97420, 07/27/2025 19:05:40 07/27/20 25 07/27/2025 LPSE lipase,serum 21 u/L 16-77 Not Dalila ilable Vt Only - [facility] [address], [address], 07/27/2025 19:05:39 07/27/20 25 07/27/2025 LDH LD 150 u/L 81-234 Not Available Vt Only - [facility] [address] [place] [address], 54558, 07/27/2025 19:05:38 07/27/20 25 07/27/2025 CMP sodium 141 mmol/ L 135-14 8 Not Available Vt Only - [facility] [address] [place] [address], 72100, 07/27/2025 19:05:37 07/27/20 25 07/27/2025 CMP potassium 4.4 mmol/ L 3.5-5. 3 Not Available Vt Only - [facility] [address] [place] [address], 62873, 07/27/2025 19:05:37 07/27/20 25 07/27/2025 CMP chloride 105 mmol/ L 96-112 Not Available Vt Only - [facility] [address] [place] [address], [id number], 07/27/2025 19:05:37 07/27/20 25 07/27/2025 CMP CO2 28 mmol/ L 23-33 Not Available Vt Only - [facility] [address] [place] [address], [id number], 07/27/2025 19:05:37 07/27/20 25 07/27/2025 CMP BUN 9 mg/dL 7-18 Not Available Vt Only - [facility] [address] [place] [address], [id number], 07/27/2025 19:05:37 07/27/20 25 07/27/2025 CMP creatinine 0.78 mg/dL 0.55-1 .02 Not Available Vt Only - [facility] [address] [place] [address], [id number], 07/27/2025 19:05:37 07/27/20 25 07/27/2025 CMP glucose 118 mg/dL 65-99 high Not Availabl e Vt Only - [facility] [address], [id number], 07/27/2025 19:05:37 07/27/20 25 07/27/2025 CMP calcium 9.0 mg/dL 8.5-10 .1 Not Available Vt Only - [facility] [address] [place] [address], 43534, 07/27/2025 19:05:37 07/27/20 25 07/27/2025 CMP total protein 7.3 g/dL 6.4-8. 2 Not Available Vt Only - [facility] [address] [place] [address], 82459, 07/27/2025 19:05:37 07/27/20 25 07/27/2025 CMP albumin 3.3 g/dL 3.4-5. 0 low Not Available Vt Only - [facility] [address] [place] [address], 76175, 07/27/2025 19:05:37 07/27/20 25 07/27/2025 CMP bilirubin (total) 0.6 mg/dL 0.2-1. 0 Not Available Vt Only - [facility] [address] [place] [address], 27530, 07/27/2025 19:05:37 07/27/20 25 07/27/2025 CMP AST 24 u/L 15-37 Not Available Vt Only - [facility] [address] [place] [address], 70474, 07/27/2025 19:05:37 07/27/20 25 07/27/2025 CMP alk phos 151 u/L 46-116 high Not Availab le Vt Only - [facility] [address], [address], 07/27/2025 19:05:37 07/27/20 25 07/27/2025 CMP ALT 23 u/L 14-59 Not Available [facility] Only - [facility] [address] [place] [address], 83674, 07/27/2025 19:05:37 07/27/20 25 07/27/2025 CMP anion gap 8 mmol/ L 7-16 Not Available Vt Only - [facility] [address] [place] [address], 04117, 07/27/2025 19:05:37 07/27/20 25 07/27/2025 DBIL bilirubin (direct) 0.11 mg/dL 0.00-0 .20 Not Available Vt Only - [facility] [address], [address], 07/27/2025 19:05:36 07/27/20 25 07/27/2025 CBCW/ DIFF WBC 7.72 x10 3.98-1 0.04 Not Available Vt Only - [facility] [address] [place] [address], 28446, 07/27/2025 18:49:57 07/27/20 25 07/27/2025 CBCW/ DIFF RBC 4.21 x10 3.93-5 .22 Not Available Vt Only - [facility] [address] [place] [address], 98668, 07/27/2025 18:49:57 07/27/20 25 07/27/2025 CBCW/ DIFF hemoglobin 11.2 g/dL 11.2-1 5.7 Not Available Vt Only - [facility] [address] [place] [address], 86073, 07/27/2025 18:49:57 07/27/20 25 07/27/2025 CBCW/ DIFF hematocrit 34.6 % 34.1-4 4.9 Not Available Vt Only - [facility] [address] [place] [address], 99822, 07/27/2025 18:49:57 07/27/20 25 07/27/2025 CBCW/ DIFF MCV 82.2 fL 79.4-9 4.8 Not Available Vt Only - [facility] [address] [place] [address], 15399, 07/27/2025 18:49:57 07/27/20 25 07/27/2025 CBCW/ DIFF MCH 26.6 pg 25.6-3 2.2 Not Available Sc Only - [facility] [address] [place] [address], 62744, 07/27/2025 18:49:57 07/27/20 25 07/27/2025 CBCW/ DIFF MCHC 32.4 g/dL 32.2-3 5.5 Not Available Sc Only - [facility] [address] [place] [address], 83805, 07/27/2025 18:49:57 07/27/20 25 07/27/2025 CBCW/ DIFF rdwcv 12.9 % 11.7-1 4.4 Not Available Sc Only - [facility] [address] [place] [address], 25174, 07/27/2025 18:49:57 07/27/20 25 07/27/2025 CBCW/ DIFF rdwsd 38.5 fL 36.4-4 6.3 Not Available Sc Only - [facility] [address] [place] [address], 82391, 07/27/2025 18:49:57 07/27/20 25 07/27/2025 CBCW/ DIFF platelets 249 x10 182-36 9 Not Available Sc Only - [facility] [address] [place] [address], 94137, 07/27/2025 18:49:57 07/27/20 25 07/27/2025 CBCW/ DIFF MPV 9.1 fL 9.4-12 .3 low Not Available Sc Only - [facility] [address] [place] [address], 83240, 07/27/2025 18:49:57 07/27/20 25 07/27/2025 AUTOD IFF neutrophils 62.0 % 34.0-7 1.1 Not Available Sc Only - [facility] [address] [place] [address], 20436, 07/27/2025 18:49:56 07/27/20 25 07/27/2025 AUTOD IFF lymphocytes 26.3 % 19.3-5 1.7 Not Available Vt Only - [facility] [address] [place] [address], 73243, 07/27/2025 18:49:56 07/27/20 25 07/27/2025 AUTOD IFF monocytes 7.8 % 4.7-12 .5 Not Available Vt Only - [facility] [address] [place] [address], 58779, 07/27/2025 18:49:56 07/27/2007/27/2025 AUTOD IFF eosinophils 3.2 % 0.7-5. 8 Not Available Vt Only - [facility] [address] [place] [address], 85045, 07/27/2025 18:49:56 07/27/20 25 07/27/2025 AUTOD IFF basophils 0.6 % 0.1-1. 2 Not Available Vt Only - [facility] [address] [place] [address], 30980, 07/27/2025 18:49:56 07/27/20 25 07/27/2025 AUTOD IFF imm auto 0.1 % 0.0-1. 5 Not Available Vt Only - [facility] [address] [place] [address], 92703, 07/27/2025 18:49:56 07/27/2007/27/2025 AUTOD IFF NRBC auto 0.0 /100W BC 0.0-0. 2 Not Available Vt Only - [facility] [address] [place] [address], 68744, 07/27/2025 18:49:56 07/27/20 25 07/27/2025 AUTOD IFF absolute neutrophils 4.78 x10 1.56-6 .13 Not Available Vt Only - [facility] [address] [place] [address], 83457, 07/27/2025 18:49:56 07/27/20 25 07/27/2025 AUTOD IFF absolute lymphocytes 2.03 x10 1.18-3 .74 Not Available Vt Only - [address], [address], 07/27/2025 18:49:56 07/27/20 25 07/27/2025 AUTOD IFF absolute monocytes 0.60 x10 0.24-0 .36 high Not Available Vt Only - [address], 36237, 07/27/2025 18:49:56 07/27/20 25 07/27/2025 AUTOD IFF absolute eosinophils 0.25 x10 0.04-0 .36 Not Available Vt Only - [address], 48042, 07/27/2025 18:49:56 07/27/20 25 07/27/2025 AUTOD IFF absolute basophils 0.05 x10 0.01-0 .08 Not Available Vt Only - [address], 12881, 07/27/2025 18:49:56 07/27/20 25 07/27/2025 AUTOD IFF imm absolute 0.01 x10 0.00-0 .15 Not Available Vt Only - [address], 30019, 07/27/2025 18:49:56 07/27/20 25 07/27/2025 AUTOD IFF NRBC absolute 0.00 x10 0.00-0 .01 Not Available Vt Only - [address], 55073, 07/27/2025 18:49:56 08/03/20 25 08/03/2025 HbA1c (hemo globi n A1c), blood fingerstick A1C endo Not Available [facility]l [facility] [address] [place] [address], 38983, 08/03/2025 14:23:07 08/03/20 25 08/03/2025 HbA1c (hemo globi n A1c), blood hemoglobin A1C, finger 6.8 %_A1C 4.3 - 5.6 high Not Available [facility] - [facility] [address] [place] [address], 03169, 08/03/2025 14:23:07 08/03/20 25 08/03/2025 HbA1c (hemo globi n A1c), blood fingerstick estimated ave 148 Not Available [facility] [address] [place] [address], 99040, 08/03/2025 14:23:07 08/03/20 25 08/03/2025 LAC lactic acid 0.7 mmol/ L 0.5-2. 0 Not Available Vt Only - [facility] [address] [place] [address], 39066, 08/03/2025 21:10:44 08/03/20 25 08/03/2025 PREG SERUM [...] e in 48-72 hours . Not Available Vt Only - [facility] [address] [facility], [place], [address], 08/03/2025 18:14:34 08/03/20 25 08/03/2025 EGFR eGFR [...] Sc Only - [facility] [address] [place] [address], 75806, 08/03/2025 17:53:04 08/03/20 25 08/03/2025 LPSE lipase,serum 26 u/L 16-77 Not Dalila ilable Sc Only - [facility] [address] [place] [address], 73501, 08/03/2025 17:53:02 08/03/20 25 08/03/2025 CMP sodium 140 mmol/ L 135-14 8 Not Available Sc Only - [facility] [address] [place] [address], 25813, 08/03/2025 17:53:00 08/03/20 25 08/03/2025 CMP potassium 3.9 mmol/ L 3.5-5. 3 Not Available Sc Only - [facility] [address] [place] [address], 67249, 08/03/2025 17:53:00 08/03/20 25 08/03/2025 CMP chloride 103 mmol/ L 96-112 Not Available Sc Only - [facility] [address] [place] [address], 41894, 08/03/2025 17:53:00 08/03/20 25 08/03/2025 CMP CO2 29 mmol/ L 23-33 Not Available Sc Only - [facility] [address] [place] [address], 20159, 08/03/2025 17:53:00 08/03/20 25 08/03/2025 CMP BUN 8 mg/dL 7-18 Not Available Vt Only - [facility] [address], 53425, 08/03/2025 17:53:00 08/03/20 25 08/03/2025 CMP creatinine 0.76 mg/dL 0.55-1 .02 Not Available Vt Only - [facility] [address] [place] [address], 96014, 08/03/2025 17:53:00 08/03/20 25 08/03/2025 CMP glucose 191 mg/dL 65-99 high Not Availabl e Vt Only - [facility] [address] [place] [address], 55090, 08/03/2025 17:53:00 08/03/20 25 08/03/2025 CMP calcium 8.9 mg/dL 8.5-10 .1 Not Available Vt Only - [facility] [address] [place] [address], 67230, 08/03/2025 17:53:00 08/03/20 25 08/03/2025 CMP total protein 7.4 g/dL 6.4-8. 2 Not Available Vt Only - [facility] [address] [place] [address], 03798, 08/03/2025 17:53:00 08/03/20 25 08/03/2025 CMP albumin 3.3 g/dL 3.4-5. 0 low Not Available Vt Only - [facility] [address] [place] [address], 57936, 08/03/2025 17:53:00 08/03/20 25 08/03/2025 CMP bilirubin (total) 0.7 mg/dL 0.2-1. 0 Not Available Vt Only - [facility] [address] [place] [address], 13524, 08/03/2025 17:53:00 08/03/20 25 08/03/2025 CMP AST 26 u/L 15-37 Not Available Sc Only - [facility] [address] [place] [address], 54597, 08/03/2025 17:53:00 08/03/20 25 08/03/2025 CMP alk phos 152 u/L 46-116 high Not Availab le Sc Only - [facility] [address] [place] [address], 87758, 08/03/2025 17:53:00 08/03/20 25 08/03/2025 CMP ALT 26 u/L 14-59 Not Available Sc Only - [facility] [address] [place] [address], 30622, 08/03/2025 17:53:00 08/03/20 25 08/03/2025 CMP anion gap 8 mmol/ L 7-16 Not Available Sc Only - [facility] [address] [place] [address], 71977, 08/03/2025 17:53:00 08/03/20 25 08/03/2025 CBCW/ DIFF WBC 7.58 x10 3.98-1 0.04 Not Available Sc Only - [facility] [address] [place] [address], 41686, 08/03/2025 17:39:02 08/03/20 25 08/03/2025 CBCW/ DIFF RBC 4.19 x10 3.93-5 .22 Not Available Sc Only - [facility] [address] [place] [address], 29285, 08/03/2025 17:39:02 08/03/20 25 08/03/2025 CBCW/ DIFF hemoglobin 11.0 g/dL 11.2-1 5.7 low Not Available Sc Only - [facility] [address] [place] [address], 05107, 08/03/2025 17:39:02 08/03/20 25 08/03/2025 CBCW/ DIFF hematocrit 35.0 % 34.1-4 4.9 Not Available Sc Only - [facility] [address] [place] [address], 73701, 08/03/2025 17:39:02 08/03/20 25 08/03/2025 CBCW/ DIFF MCV 83.5 fL 79.4-9 4.8 Not Available Sc Only - [facility] [address] [place] [address], 49316, 08/03/2025 17:39:02 08/03/20 25 08/03/2025 CBCW/ DIFF MCH 26.3 pg 25.6-3 2.2 Not Available Sc Only - [facility] [address] [place] [address], 23992, 08/03/2025 17:39:02 08/03/20 25 08/03/2025 CBCW/ DIFF MCHC 31.4 g/dL 32.2-3 5.5 low Not Available Sc Only - [facility] [address] [place] [address], 73403, 08/03/2025 17:39:02 08/03/20 25 08/03/2025 CBCW/ DIFF rdwcv 13.0 % 11.7-1 4.4 Not Available Sc Only - [facility] [address] [place] [address], 41786, 08/03/2025 17:39:02 08/03/20 25 08/03/2025 CBCW/ DIFF rdwsd 38.7 fL 36.4-4 6.3 Not Available Sc Only - [facility] [address] [place] [address], 34603, 08/03/2025 17:39:02 08/03/20 25 08/03/2025 CBCW/ DIFF platelets 266 x10 182-36 9 Not Available Sc Only - [facility] [address] [place] [address], 58448, 08/03/2025 17:39:02 08/03/20 25 08/03/2025 CBCW/ DIFF MPV 9.5 fL 9.4-12 .3 Not Available Sc Only - [facility] [address] [place] [address], 07708, 08/03/2025 17:39:02 08/03/20 25 08/03/2025 AUTOD IFF neutrophils 63.1 % 34.0-7 1.1 Not Available Vt Only - [facility] [address], 61709, 08/03/2025 17:39:00 08/03/20 25 08/03/2025 AUTOD IFF lymphocytes 24.8 % 19.3-5 1.7 Not Available Vt Only - [facility] [address] [place] [address], 61020, 08/03/2025 17:39:00 08/03/20 25 08/03/2025 AUTOD IFF monocytes 8.0 % 4.7-12 .5 Not Available Vt Only - [facility] [address] [place] [address], 46873, 08/03/2025 17:39:00 08/03/20 25 08/03/2025 AUTOD IFF eosinophils 3.0 % 0.7-5. 8 Not Available Vt Only - [facility] [address] [place] [address], 28324, 08/03/2025 17:39:00 08/03/20 25 08/03/2025 AUTOD IFF basophils 0.8 % 0.1-1. 2 Not Available Vt Only - [facility] [address] [place] [address], 05714, 08/03/2025 17:39:00 08/03/20 25 08/03/2025 AUTOD IFF imm auto 0.3 % 0.0-1. 5 Not Available Sc Only - [facility] [address] [place] [address], 98354, 08/03/2025 17:39:00 08/03/20 25 08/03/2025 AUTOD IFF NRBC auto 0.0 /100W BC 0.0-0. 2 Not Available Sc Only - [facility] [address] [place] [address], 68636, 08/03/2025 17:39:00 08/03/20 25 08/03/2025 AUTOD IFF absolute neutrophils 4.78 x10 1.56-6 .13 Not Available Sc Only - [address], 58190, 08/03/2025 17:39:00 08/03/20 25 08/03/2025 AUTOD IFF absolute lymphocytes 1.88 x10 1.18-3 .74 Not Available Sc Only - [address], 19762, 08/03/2025 17:39:00 08/03/20 25 08/03/2025 AUTOD IFF absolute monocytes 0.61 x10 0.24-0 .36 high Not Available Sc Only - [address], 56175, 08/03/2025 17:39:00 08/03/20 25 08/03/2025 AUTOD IFF absolute eosinophils 0.23 x10 0.04-0 .36 Not Available Sc Only - [address], 71172, 08/03/2025 17:39:00 08/03/20 25 08/03/2025 AUTOD IFF absolute basophils 0.06 x10 0.01-0 .08 Not Available Sc Only - [address], 91777, 08/03/2025 17:39:00 08/03/20 25 08/03/2025 AUTOD IFF imm absolute 0.02 x10 0.00-0 .15 Not Available Sc Only - [facility] [address] [place] [place] [address], 68144, 08/03/2025 17:39:00 08/03/20 25 08/03/2025 AUTOD IFF NRBC absolute 0.00 x10 0.00-0 .01 Not Available Sc Only - [facility] [address] [place] [address], 20941, 08/03/2025 17:39:00 07/27/20 25 07/27/2025 CT, abdom en + pelvi s, w/ contr ast 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 [email or web address] [facility] [address] [place], [address], 08/01/2025 17:37:33 08/03/20 25 08/03/2025 D abdom en 1 view [facility] [address] [place] [address] [phone] Name: TL WHITE Age: 54 : 1970 Exam Date: 2024 ACCESS ION: [id number] BLAISE CALDERA MD: BRIDGET BOWLES EXAM: Abdome [...] MD Signed : 20:05 Juwan Metzger MD [facility] [address], [address], 08/03/2025 21:09:24 08/20/20 25 08/20/2025 D abdom en 1 view [facility] [address] [place] [address] Name: TL WHITE Age: 54 : 1970 Exam Date: 2024 ACCESS ION: [id number] BLAISE CALDERA MD: MARYCRUZ, ANKUSH EXAMIN ATION: Abdome n 1 View HISTOR [...] was dictat ed remote ly by a [facility] Radiol ogist in [place], [place]. /CS:cs D: 2024 16:08 T: 2024 16:08 Final Report Dictat ed: 16:08 Minna Underwood MD Signed : 16:08 Minna Underwood MD INTERFACE Sc Only - [facility] [address], [place], [address], 08/20/2025 17:11:56 09/05/20 25 09/05/2025 elect erinnar diogr am, routi ne ECG, 12 leads min No observ ation record ed. INTERFACE [facility] Only - [facility] [address] [address], [place], [address], 09/05/2025 15:23:33 09/05/20 25 08/18/2025 imagi ng/di agnos tic resul t No observ ation record ed. [address] [facility] [address], [place], [address], 09/05/2025 17:07:07 09/05/20 25 08/18/2025 CT, abdom en + pelvi s, w/ contr ast No observ ation record ed. [facility] [address], [place], [address], 09/05/2025 18:33:06 Result Notes None recorded. Problems Name Problem SNOMED Code Status Onset Date Resolution Date Notes Provider Name and Address Organization Details Recorded Time Migraine 83244100 Active 06/03/ 2021 Not Available [facility] 5 22:06:56 Hypertens jozef disorder 88094055 Active 2020 Not Available [facility] 5 22:06:56 Atypical squamous cells of undetermi tiffanie significa nce on cervical Papanicol aou smear 946443152 Active 2020 Not Available [facility] 5 22:06:56 Second degree uterine prolapse 3795648 Active 2022 Not Available [facility] 5 22:06:56 Chest pain 55301876 Active 2022 Not Available [facility] 5 22:07:15 Preinfarc tion syndrome 3387889 Active 2022 Not Available [facility] 5 22:07:58 Coronary arteriosc lerosis 97283350 Active 2023 Not Available [facility] 5 22:06:26 Essential hypertens ion 88767147 Active 2023 Not Available [facility] 5 22:06:26 Hyperchol esterolem ia 13381633 Active 2023 Not Available [facility] 5 22:06:26 Abdominal pain 68518588 Active 2023 Not Available [facility] 5 22:08:28 Thoracic radiculop athy 73157861 Active 2023 Not Available [facility] 5 22:07:18 Cervical radiculop athy 80244856 Active 2023 Not Available [facility] 5 22:07:18 Lumbar spondylos is 684773207 Active 2023 Not Available [facility] 5 22:07:18 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 46835027626 9106 Active 2023 following with endocrino logy Not Available [facility] 5 22:07:26 Spinal arachnoid cyst 744294492 Active 2023 Not Available [facility] 5 22:07:42 Morbid obesity 329048707 Active 2024 Not Available [facility] 5 22:08:30 Gastropar esis syndrome 941396771 Active 2024 Not Available [facility] 5 22:08:30 Gastroeso phageal reflux disease 932380308 Active 2024 Not Available [facility] 5 22:08:30 Dyspnea 973435802 Active 2024 Not Available [facility] 5 22:10:22 Pain of left shoulder region Active 2024 Not Available [facility] 5 22:10:22 Bilateral cramp of muscle of lower limbs 83727001330 408355 Active 2024 Not Available [facility] 5 22:10:22 Fibromyal chuck 883244686 Active 2024 Not Available [facility] 5 22:08:30 Recurrent major depressio n in remission 75159681 Active 2024 Not Available [facility] 5 22:08:30 Primary insomnia 8991201 Active 2024 Not Available [facility] 5 22:08:30 Swelling of lower limb 373334853 Active 2024 Not Available [facility] 5 22:08:41 Palpitati ons 11208649 Active 2024 Not Available [facility] 5 22:09:22 Dyspnea on exertion 29299504 Active 2024 Not Available [facility] 5 22:11:38 Hyperlipi demia 17633550 Active 2024 Not Available [facility] 5 22:09:44 Edema of lower extremity 594757102 Active 2024 Not Available [facility] 5 22:09:44 Persisten t depressiv e disorder 7473541858 Active 2024 Not Available [facility] 5 22:09:45 Restless legs syndrome 81911954 Active 2024 Not Available [facility] 5 22:09:45 Atypical chest pain 940671827 Active 2024 Not Available [facility] 5 22:12:17 Anemia 597696812 Active 2024 Not Available [facility] 5 22:12:35 Acute kidney injury 97340781 Active 2024 Not Available [facility] 22:12:35 Mycosis 2556640 Active 2024 Not Available [facility] 5 22:10:03 Obstructi ve sleep apnea syndrome 49352754 Active 2024 Not Available [facility] 5 22:10:20 Acute urinary tract infection 582572381 Active 2024 Not Available [facility] 5 22:10:25 Alpha-1-a ntitrypsi n deficienc y 47562877 Active 2024 Not Available [facility] 5 22:10:34 Supravent ricular tachycard ia 9465709 Active 2024 Not Available [facility] 22:10:35 Abdominal discomfor t 96508364 Active 2024 Kimi giron [facility] 5 10:28:59 Screening colonosco py Active 2024 Kimi giron [facility] 5 10:34:05 Notes:Some problems listed i n Documents: #[id number], #[id number], #[id number] could not be added to this patient's [...] Name and Address Organization Details Recorded Time 7119383 fentanyl medicatio n headache Not available Not available 10/14/20232012 4337 RxNorm React ion: Heada syeda; Nause a; Vomit ing; Comme nt: React ion Date: 23 Aug 2013 Annot ation s: JUVENCIO SIEGEL 2012 9:08P M Per pt repor t.; ; [facility] 5 14:41:09 8255628 prochlorp erazine medicatio n anxiety Not available Not available 05/13/20242017 8704 RxNorm [facility] 5 11:23:17 5941471 sumatript an medicatio n itching Not available Not available 05/13/20242017 33696 RxNorm Brenda Natarajan [facility] 5 14:41:28 6409191 metoclopr amide Not available other Not available Not available 05/13/20242022 6915 RxNorm Brenda Natarajan [facility] 5 14:41:18 1569444 diphenhyd ramine hydrochlo ride medicatio n anxiety rash Not available Not available Not available 05/13/20242017 1362 RxNorm Yoli Sauceda [facility] 5 11:23:17 4177110 Duragesic medicatio n headache Not available Not available 06/22/20242012 04002 8 RxNorm React ion: Heada syeda; Nause a; Vomit ing; Comme nt: React ion Date: 23 Aug 2013 Annot ation s: JUVENCIO SIEGEL 2012 9:08P M Per pt repor t.; ; [facility] 5 14:41:05 5687575 Compazine medicatio n other Not available Not available 11/02/202492270 6 RxNorm irrit abili ty Brenda Natarajan [facility] 5 14:41:50 3105461 Imdur medicatio n anxiety insomnia Not available Not available [facility] 05/30/2025 69247 2 RxNorm Melissa Macias PA-C [address] [place] [address], [phone], [facility] 5 10:19:27 730439 Biaxin medicatio n nausea Not available Not available 10/12/20232006 42350 9 RxNorm React ion: Nause a; Not Available [facility] 4 21:45:38 025730 sumatript an succinate medicatio n Not available Not available Not available 10/12/20232006 24684 RxNorm React ion: Short ness of breat h; Arrhy thmia ; Not Available [facility] 4 21:45:39 324036 ciproflox acin hydrochlo ride medicatio n Not available Not available Not available 10/12/20232006 70361 RxNorm React ion: Synco pe; Short ness of breat h; Brenda Natarajan [facility] 5 14:40:56 741048 Demerol medicatio n Not available Not available Not available 10/12/20232008 72096 1 RxNorm Comme nt: Annot ation s: CAM BALTAZAR ON 2008 3:38P M NAUSE A; ; [facility] 5 14:40:59 148350 morphine sulfate medicatio n Not available Not available Not available 10/12/20232008 06401 RxNorm Comme nt: Annot ation s: GRILYA Chino BRAND ON 2008 3:39P M NAUSE A; ; Brenda Natarajan [facility] 5 14:41:15 749681 hydromorp basim hydrochlo ride medicatio n Not available Not available Not available 10/12/20232008 35340 7 RxNorm Comme nt: Annot ation s: CAM BALTAZAR ON 2008 3:39P M NAUSE A; ; Brenda Natarajan [facility] 14:41:12 Medications Name Sig Start [...] active Not Available Not Available Not Avai labpaula Humalog U-100 Insulin 100 unit/mL subcutane ous [...] Available Not Available Not Available [employer] Manager USE PER MANUFACT URER DIRECTIO NS 09/05 [...] Updated DateTime 08/03/2025 170.18 cm 42.4 kg/m2 994726.5 3 g 108 /min 97 % Emely Fischer [facility] 14:22:27 Social History Question Answer Notes [...] Do You Have A Medical Power Of Stock Preparer? Yes [email or web address] Information not available 06/13/2024 What Was The Date Of Your Most Recent Tobacco Screening? 07/04/2025 [email or web address] Information not available 07/04/2025 What Is Your Relationship Status? [email or web address] Information not available 06/13/2024 Has Tobacco Cessation Counseling Been Provided? Yes [email or web address] Information not available 03/28/2025 On What Date [...] MDCK, trivalent, PF 5 completed Yoli Sauceda [facility] 09/05/2025 13:00:50 Influenza, recombinant, quadrivalent, PF 1 completed Brenda Natarajan [facility] 11/02/2024 14:40:15 Influenza, recombinant, quadrivalent, PF 0 [facility] 14:40:15 zoster recombinant 1 [facility] 11/02/2024 14:40:15 zoster recombinant 1 completed Brenda Natarajan [facility] 11/02/2024 14:40:15 COVID-19, mRNA, LNP-S, PF, 100 mcg/0.5mL dose or 50 mcg/0.25mL dose 1 completed Brenda Natarajan [facility] 11/02/2024 14:40:15 COVID-19, mRNA, LNP-S, PF, 100 mcg/0.5mL dose or 50 mcg/0.25mL dose 1 completed Brenda Natarajan [facility] 11/02/2024 14:40:15 COVID-19, mRNA, LNP-S, PF, 100 mcg/0.5mL dose or 50 mcg/0.25mL dose 1 completed Brenda Natarajan [facility] 11/02/2024 14:40:15 pneumococcal polysaccharide PPV23 1 completed Brenda Natarajan [facility] 11/02/2024 14:40:15 influenza, unspecified formulation 4 completed [facility] 11/02/2024 14:40:15 influenza, unspecified formulation 4 completed [facility] 11/02/2024 14:40:15 influenza, unspecified formulation 3 completed [facility] 11/02/2024 14:40:15 Tdap 7 completed [facility] 11/02/2024 14:40:15 Influenza, split virus, trivalent, preservative 1 completed [facility] 11/02/2024 14:40:15 Influenza, split virus, quadrivalent, PF 7 completed [facility] 11/02/2024 14:40:15 Past Encounters Encounter ID Performer Location Encounter Start Date Encounter Closed Date Diagnosis/Indication Diagnosis SNOMED-CT Code Diagnosis ICD10 Code Diagnosis IMO Codes Diagnosis Note [id number] Melissa Macias PA-C [facility] (MD) [address] [place] [phone] 1 07/04/2025 11:15:12 07/04/2025 12:20:08 Primary insomnia 9396763 F51.01 Persistent depressive disorder 7444589168 F34.1 also anxiety and helps with hot flashes Migraine 26416176 G43.90 9 Recurrent major depression in remission 61735847 F33.40 7851314 Hypertensive disorder 38 804219 I10 [id number] [facility] (MD) [address] [place] [address] 08/03/2025 14:13:01 08/03/2025 14:40:42 Neuropathy due to type 2 diabetes mellitus 7096340851 74913 E11.40 Z79.4 [id number] Health Concerns Section Related Observation LastModified by Organization Detai ls LastModified Time None Recorded Concern Status LastModified by Organization Details LastModified Time None Recorded Payers Encounter Date Sequence Insurance Name Policy Number Policy Garcia Covered Member ID Garcia Member ID Guarantor Name 08/03/2025 2 [place]: [facility] DE[facility]MENT OF PUBLIC AID Leti White [id number] Leti White 08/03/2025 1 [facility] (MEDICARE REPLACEMENT/A DVANTAGE - PPO) [id number] Leti White [id number] Leti White Notes Date Note Type Note Provider Name and Address Organization Details Recorded Time 5 text/html Leti White is here today for an endocrine follow up regarding diabetes mellitus type 2 diagnosed in 2004. Sent to endocrine because she would like to get Omnipod.Hemoglobin [id number]: Sept 6.8%2024: Alvarez 6.9%, Nov 6.8%Prior to [...] with lung cancer and diabetes. Father with [place] and diabetes. Tiffanie Painting APN [address] [facility], [place], [address], [facility] 08/03/2025 14:35:18 OBGyn Episode No OBEpisode recorded.
--- OUTSIDE RECORDS SUMMARY | 2025-09-05 21:31 | XMS_ITS ---
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 Code Code System Body Mass Index 43.85 kg/m2 12/29/2024 17:53 Initial 52408 -5 LOINC Systolic Blood Pressure 138 mm[Hg] 12/29/2024 17:53 Initial 8480- 6 LOINC Diastolic Blood Pressure 76 mm[Hg] 12/29/2024 17:53 Initial 8462- 4 LOINC Body Surface Area 2.45 m2 12/29/2024 17:53 Initial 3140- 1 LOINC Height 170.180 0 cm 67.00 in 12/29/2024 17:53 Initial 8302- 2 LOINC O2 Saturation 99 % 2024 18:31 Most Recent 02402 -5 LOINC O2 Saturation 96 % 2024 17:53 Initial 93100 -5 LOINC Pulse 64.0 /min 12/29/2024 18:31 Most Recent 8867- 4 LOINC Pulse 60.0 /min 12/29/2024 17:53 Initial 8867- 4 LOINC Respiration 18 /min 12/30/19 18:31 Most Recent 9279- 1 LOINC Respiration 18 /min 12/30/19 17:53 Initial 9279- 1 LOINC Temperature 36.5 Alexandrea 97.7 F 12/30/19 17:53 Initial 8310- 5 LOINC Weight 127.01 kg 280.00 lbs 12/29/2024 17:53 Initial 52153 -7 [facility] Medications Medication Start Date End Date Route Frequency Dose Code Code System Medication Instructions Home Meds Lidoderm 5% Topical application Patch, Extended Release 11/02/2024 02/28/2025 1 1980655 RxNorm 1 patch daily Zofran 4MG Oral Tablet 05/03/2025 Unknown ORAL EVERY 6 HOURS 1 TABLET 628999 RxNorm TAKE 1 TABLET ORAL EVERY 6 [...] Code Code System CHRONIC NECK PAIN active 493485443017 7 SNOMED-CT DISORDER OF ROTATOR CUFF active 714295221 SNOMED-CT SPRAIN OF LEFT SHOULDER active 63349570205162657 SNOMED-CT CHRONIC BACK PAIN active 162850668 SN OMED-CT CHRONIC MIGRAINE active 120002276 SNO MED-CT DIABETES active 33340517 SNOMED-CT GASTROPARESES active 423742914 SNOMED -CT EIRKA CELL NEOPLASM active 671857734 SNOMED-CT HYPERTENSION active 26684713 SNOMED- CT DRUG SEEKING BEHAVIOR active 09561207 SNOMED-CT MALINGERING active 46305159 SNOMED-C 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 10/24/2024 resolved 98307646 SNOMED-CT Allergies and Adverse Reactions Allergy Substance Reaction Severity Start Date Concern Status Code Code System PROCHLORPERAZINE go crazy (SNOMED-CT: null) Severe Active 8704 RxNorm ISOSORBIDE MONONITRATE SOB, anxiety (SNOMED-CT: null) Active 96903 RxNorm CLARITHROMYCIN Vomiting (SNOMED-CT: 700547563) Severe Active 58735 RxNorm BENADRYL went crazy (SNOMED-CT: null) Severe Active 999609 RxNorm IMITREX Tachycardia (SNOMED-CT: 6036204) Moderate Active 085039 RxNorm Plan of Treatment No Data Found Encounters Encounter Diagnosis Start Date Code Code Sys tem 12/29/2024 4481642800 SNOMED-CT Personal Care Team Section
--- OUTSIDE RECORDS SUMMARY | 2025-09-05 21:31 | XMS_ITS ---
Author Organization Unknown Address [address] [place] [address] [phone] Phone Care Team Providers Care Pelota Maker Name Role Phone LINNETTE Hussein Attending Unavailable PINKY Kyle Primary Unavailable Social History Type Status Start Date End Date Code Code Syst em Smoking History Never smoker (Never Smoked) 332494763 SNOMED CT Sex Female Vital Signs Vital Sign Value Unit [place] Value [place] Unit Date/Time Recent/Initial? Code Code System Body Mass Index 43.85 kg/m2 03/24/2025 21:59 Initial 01102 -5 LOINC Systolic Blood Pressure 170 mm[Hg] [...] Saturation 98 % 2024 22:30 Most Recent 84428 -5 LOINC O2 Saturation 95 % 2024 21:59 Initial 39208 -5 LOINC Pulse 68.0 /min 03/24/2025 22:30 Most Recent 8867- 4 LOINC Pulse 90.0 /min 03/24/2025 21:59 Initial 8867- 4 LOINC Respiration 18 /min 03/24/20 22:30 Most Recent 9279- 1 LOINC Respiration 20 /min 03/24/20 21:59 Initial 9279- 1 [facility] Temperature 36.8 Alexandrea 98.2 F 03/24/20 21:59 Initial 8310- 5 [facility] Weight 127.01 kg 280.00 lbs 03/24/2025 21:59 Initial 45538 -7 [facility] Medications Medication Start Date End Date Route Frequency Dose Code Code System Medication Instructions Home Meds Zofran 4MG Oral Tablet 05/03/2025 Unknown ORAL EVERY 6 HOURS 1 TABLET 949792 RxNorm TAKE 1 TABLET ORAL EVERY 6 [...] Code Code System CHRONIC NECK PAIN active 744176334076 7 SNOMED-CT DISORDER OF ROTATOR CUFF active 978023966 SNOMED-CT SPRAIN OF LEFT SHOULDER active 83118880393135566 SNOMED-CT CHRONIC BACK PAIN active 657054348 SN OMED-CT CHRONIC MIGRAINE active 898128929 SNO MED-CT DIABETES active 74161269 SNOMED-CT GASTROPARESES active 351961588 SNOMED -CT ERIKA CELL NEOPLASM active 130986537 SNOMED-CT HYPERTENSION active 57907921 SNOMED- CT DRUG SEEKING BEHAVIOR active 73134257 SNOMED-CT MALINGERING active 03937584 SNOMED-C 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 10/24/2024 resolved 34971371 SNOMED-CT Allergies and Adverse Reactions Allergy Substance Reaction Severity Start Date Concern Status Code Code System PROCHLORPERAZINE go crazy (SNOMED-CT: null) Severe Active 8704 RxNorm ISOSORBIDE MONONITRATE SOB, anxiety (SNOMED-CT: null) Active 95855 RxNorm CLARITHROMYCIN Vomiting (SNOMED-CT: 044137044) Severe Active 69664 RxNorm BENADRYL went crazy (SNOMED-CT: null) Severe Active 357085 RxNorm IMITREX Tachycardia (SNOMED-CT: 1998407) Moderate Active 692698 RxNorm Plan of Treatment No Data Found Encounters Encounter Diagnosis Start Date Code Code Sys tem Migraine, unspecified, not i ntractable, without status migrainosus 03/24/2025 SNOMED-CT Personal Care Team Section
--- OUTSIDE RECORDS SUMMARY | 2025-09-05 21:31 | XMS_ITS | Clinical Summary ---
Author Organization [facility] Address [address] [place] [address] Care Team Providers Care Geologic Technician Name Role Phone Adele Lagos MD Primary Care Provider [phone] Allergies Active Allergy Reactions Criticality Noted Date Comments Diphenhydramine Other (see Comments) 10/20/2014 Irritability Clarithromycin Hives 10/20/2014 Prochlorperazine Other (see Comments) 5 Irritability Isosorbide Nitrate Anxiety 09/02/2025 Sumatriptan Palpitations 10/20/2014 Lorazepam Anxiety Low 11/18/2014 [...] 3 times daily. 30 Tablet 1 Active Additional Information Patient not taking.Reported on 09/02/2025 Lidocaine 4 % Patch 1 Patch by [...] Other. Active Insulin Disposable Pump (Omnipod 5 [id number] Pods Gen 5) Misc change pod every 2 days 5 Active doxepin (SINEQUAN) 75 MG Capsule Take 75 mg by mouth daily. 5 Active rosuvastatin (Crestor) 20 MG Tablet Take 20 mg by mouth nightly. Active carvedilol (Coreg) 12.5 MG Tablet Take 12.5 mg by mouth 2 times daily. Active hydrOXYzine (ATARAX) 50 MG Tablet Take 50 mg by mouth nightly as needed for Itching. Active QUEtiapine Fumarate (SEROquel) 50 MG Tablet Take 50 mg by mouth nightly. Active venlafaxine (Effexor XR) 75 MG CAPSULE SR 24 HR Take 75 mg by mouth nightly. Active venlafaxine (Effexor XR) 150 MG CAPSULE SR 24 HR Take 150 mg by mouth nightly. Active rOPINIRole (REQUIP) 0.25 MG Tablet Take 0.25 mg by mouth nightly. Reports taking 3 tabs nightly Active Active Problems Problem Noted Date Diagnosed Date Arachnoid cyst of spine 08/08/2020 Migraine without status migrainosus, not intract able 03/06/2018 Encounters Date Type Department Care Team Description 09/02/2025 7:18 PM TIRE FABRICATOR - 09/02/2025 10:28 PM TIRE FABRICATOR Emergency [facility] Emergency Dept. Services [address] [place] [address] Sveta Wong MD Chronic abdominal pain Discharge Disposition: Discharged to home or Selfcare 09/02/2025 Travel from Last 3 Months Immunizations Immunization Administration Dates Next Due Influenza Vaccine, Quadrivalent, PF 10/12/2016 Influenza Vaccine,unspecified Formulation 2023,06/24/2014,07/13/2013 Influenza, Recombinant, Quadrivalent,injectable, Pf 06/16/2021,06/28/2020 Influenza, Seasonal, Injectable, Undefined 09/29 Pneumococcal Vaccine Adult - 23 Valent TDAP Vaccine 05/31/2007 Zoster Vaccine Recombinant 09/13/2021,06/16/2021 Social History Tobacco Use Types Packs/Day Years Used Date Smoking Tobacco: Never Smokeless Tobacco: Never Tobacco Cessation:Counseling Given: Not Answered Alcohol Use Standard Drinks/Week Comments No 0 (1 standard drink = 0.6 oz pur e alcohol) Comments No Sex and Gender Information Value Date Recorded Sex Assigned at Female 08/12/2024 6:07 PM TIRE FABRICATOR Legal Sex Female 4:01 AM TIRE FABRICATOR Gender Identity Female 08/12/2024 6:07 PM TIRE FABRICATOR Sexual Orientation Not on file Last Filed Vital Signs Vital Sign Reading Time Taken Comments Blood Pressure 141/52 09/02/2025 10:01 PM TIRE FABRICATOR Pulse 70 09/02/2025 9:30 PM TIRE FABRICATOR Temperature 36.4 C (97.6 F) 09/02/2025 10:01 PM TIRE FABRICATOR Respiratory Rate 16 09/02/2025 10:20 PM TIRE FABRICATOR Oxygen Saturation 96% 09/02/2025 10:20 PM TIRE FABRICATOR Inhaled Oxygen Concentration - - Weight 126.6 kg (279 lb) 09/02/2025 7:29 PM TIRE FABRICATOR Height 170.2 cm (5' 7) 09/02/2025 7:29 PM TIRE FABRICATOR Body Mass Index 43.7 09/02/2025 7:29 PM TIRE FABRICATOR Plan of Treatment Health Maintenance Due Date Last Done Comments Hepatitis C Virus (HCV) Screening 1970 Mammogram 1970 Hepatitis B Immunization (1 of 3 - 19+ 3-dose series) 1989 HPV/Cotest 2000 Medicare Initial AWV G0438 10/15/2014 Cologuard 2015 Colonoscopy 2015 Colorectal Cancer Screening 2015 Immunochemical Fecal Occult Blood 2015 Td Immunization Every 10 Years (Adults With 1 Tdap) 05/31/2017 05/31/2007 Respiratory Syncytial Virus (RSV) Immunization (Adult) (1 - Risk 50-74 years 1-dose series) 2020 Pneumococcal Immunization (50+ years) (2 of 2 - PCV) 10/02/2021 10/02/2020 Influenza Immunization (#1) 05/15/202505/15, 06/16/2021, 09/29/2020, Additional history exists SARS-COV-2 Immunization ( season) 2025 09/13/2021, 12/14/2020, 11/16/2020 Cervical Cancer Screening (CCS) 10/31/2025 Pap Smear 10/31/2025 10/31/2022, 03/15/2021 DTaP/Tdap/Td Immunization Discontinued 05/31/2007 TdaP Immunization Discontinued 05/31/2007 Pneumococcal Immunization Combined Discontinued 10/02/2020 Zoster Immunization Completed 09/13/2021, Human Papillomavirus (HPV) Immunization (No Doses Required) Completed Meningococcal Immunization (ACWY) Aged Out No longer eligible based on patient's age to complete this topic Rotavirus Immunization Aged Out No lo nger eligible based on patient's age to complete this topic Procedures Procedure Name Priority Date/Time Associated Diagnosis Comments URINALYSIS (UA) MICROSCOPIC ONLY STAT 09/02/2025 9:31 PM TIRE FABRICATOR URINE DRUG SCREEN STAT 09/02/2025 9:3 1 PM TIRE FABRICATOR URINALYSIS REFLEX IF INDICATED BY ABNORMAL RESULTS STAT 09/02/2025 9:31 PM TIRE FABRICATOR CULTURE, URINE STAT 09/02/2025 9:31 PM TIRE FABRICATOR RED TOP TUBE STAT 09/02/2025 8:16 PM TIRE FABRICATOR ORTIZ TOP TUBE STAT 09/02/2025 8:16 PM TIRE FABRICATOR BLUE TOP TUBE STAT 09/02/2025 8:16 PM TIRE FABRICATOR EXTRA TUBES STAT 09/02/2025 8:16 PM TIRE FABRICATOR CBC WITH AUTO DIFFERENTIAL STAT 09/02/2025 8:13 PM TIRE FABRICATOR LIPASE STAT 09/02/2025 8:13 PM TIRE FABRICATOR CMP (COMPREHENSIVE METABOLIC PANEL) STAT 09/02/2025 8:13 PM TIRE FABRICATOR COMPLETE BLOOD COUNT (CBC) WITH DIFF STAT 09/02/2025 8:13 PM TIRE FABRICATOR from Last 3 Months Results * (ABNORMAL) Urinalysis w/ Reflex (09/02/2025 9:31 PM TIRE FABRICATOR) URINALYSIS COLOR Yellow Yellow, Light Yellow 09/02/2025 9:40 PM TIRE FABRICATOR [facility] URINALYSIS CLARITY Clear Clear 09/02/2025 9:40 PM TIRE FABRICATOR [facility] URINE PH 7.0 5.0 - 8.0 09/02/2025 9:40 PM TIRE FABRICATOR [facility] SPECIFIC GRAVITY 1.020 1.005 - 1.020 09/02/2025 9:40 PM TIRE FABRICATOR [facility] PROTEIN, RANDOM URINE Negative Negative 09/02/2025 9:40 PM [facility] URINE GLUCOSE, QUAL Negative Negative 09/02/2025 9:40 PM TIRE FABRICATOR [facility] URINE KETONES Negative Negative 09/02/2025 9:40 PM [facility] URINE BLOOD Negative Negative ken/ul 09/02/2025 9:40 PM TIRE FABRICATOR [facility] NITRITE Negative Negative 09/02/2025 9:40 PM [facility] URINE BILIRUBIN Negative Negative 9:40 PM [facility] UROBILINOGEN 0.2 0.2 , 1.0 , Normal mg/dL 09/02/2025 9:40 PM [facility] WBC ESTERASE Trace(A) Negative 09/02/2025 9:40 PM [facility] Urine URINE SPECIMEN OBTAINED BY CLEAN CATCH PROCEDURE / Unknown Non-Phlebotomy Collection / Unknown 09/02/2025 9:31 PM TIRE FABRICATOR 09/02/2025 9:35 PM TIRE FABRICATOR us Sveta Wong MD URINE ORDERABLES Final Result [facility] [address] [place] [address], [place] [phone] * (ABNORMAL) Urinalysis (UA) Microscopic Only (09/02/2025 9:31 PM TIRE FABRICATOR) URINE RBC'S None None /hpf 09/02/2025 9:49 PM TIRE FABRICATOR [facility] WBC (Urine) 11-25(A) None /hpf 09/02/2025 9:49 PM TIRE FABRICATOR [facility] BACTERIA, URINE 1+(A) None Seen /hpf 09/02/2025 9:49 PM TIRE FABRICATOR [facility] SQUAMOUS EPITHELELIAL CELLS 11-25(A) None /hpf 09/02/2025 9:49 PM TIRE FABRICATOR [facility] TRANSITIONAL EPITHELIAL CELLS 0-2(A) None /hpf 09/02/2025 9:49 PM TIRE FABRICATOR [facility] RENAL TUBULAR CELLS 0-2(A) None, 11-25 /hpf 09/02/2025 9:49 PM TIRE FABRICATOR [facility] URINE MUCOUS Occasiona l(A) None 09/02/2025 9:49 PM TIRE FABRICATOR [facility] URINE YEAST Occasiona l(A) None Seen 09/02/2025 9:49 PM TIRE FABRICATOR [facility] Urine URINE SPECIMEN OBTAINED BY CLEAN CATCH PROCEDURE / Unknown Non-Phlebotomy Collection / Unknown 09/02/2025 9:31 PM TIRE FABRICATOR 09/02/2025 9:35 PM TIRE FABRICATOR Sveta Wong MD URINE ORDERABLES Final Result [facility] [address] [place] [address], [place] [phone] * Culture, Urine (09/02/2025 9:31 PM TIRE FABRICATOR) CULTURE RESULTS MIXED DIONICIO, POSSIBLE PATHOGENS. SUGGEST RECOLLECTION . 09/04/2025 9:54 AM TIRE FABRICATOR [facility] Urine URINE SPECIMEN OBTAINED BY CLEAN CATCH PROCEDURE / Unknown Non-Phlebotomy Collection / Unknown 09/02/2025 9:31 PM TIRE FABRICATOR 09/02/2025 9:35 PM TIRE FABRICATOR us Sveta Wong MD MICROBIOLOGY - GENERAL ORDERAB LES Final Result [facility] [address] [facility] [place] [address], [place] [phone] * Urine Drug Screen (09/02/2025 9:31 PM TIRE FABRICATOR) UR AMPHETAMINE NEGATIVE NEGATIVE 09/02/2025 9:46 PM TIRE FABRICATOR [facility] UR BARBITURATE NEGATIVE NEGATIVE 09/02/2025 9:46 PM TIRE FABRICATOR [facility] URINE BUPRENORPHINE NEGATIVE NEGATIVE 09/02 9:46 PM TIRE FABRICATOR [facility] UR BENZODIAZEPINES NEGATIVE NEGATIVE 2024 9:46 PM TIRE FABRICATOR [facility] UR COCAINE METABOLITE NEGATIVE NEGATIVE 09/02/2025 9:46 PM TIRE FABRICATOR [facility] UR FENTANYL NEGATIVE NEGATIVE 09/02/2025 9:46 PM TIRE FABRICATOR [facility] UR ECSTASY NEGATIVE NEGATIVE 09/02/2025 9:46 PM TIRE FABRICATOR [facility] UR METHAMPHETAMINE NEGATIVE NEGATIVE 2024 9:46 PM TIRE FABRICATOR [facility] UR OPIATES NEGATIVE NEGATIVE 09/02/2025 9:46 PM TIRE FABRICATOR [facility] UR METHADONE NEGATIVE NEGATIVE 09/02/2025 9:46 PM TIRE FABRICATOR [facility] UR OXYCODONE NEGATIVE NEGATIVE 09/02/2025 9:46 PM TIRE FABRICATOR [facility] UR PHENCYCLIDINE NEGATIVE NEGATIVE 09/02/20 9:46 PM TIRE FABRICATOR [facility] UR TRICYCLIC ANTIDEPRESS SCREEN NEGATIVE NEGATIVE 09/02/2025 9:46 PM TIRE FABRICATOR [facility] UR CANNABINOID NEGATIVE NEGATIVE 09/02/2025 9:46 PM TIRE FABRICATOR [facility] Urine Non-Phlebotomy Collection / Unknown 09/02/2025 9:31 PM TIRE FABRICATOR 09/02/2025 9:35 PM TIRE FABRICATOR [facility] - 09/02/2025 9:46 PM TIRE FABRICATOR This screening test provides only a qualitative, preliminary analytical result. A secondary analytical method must be used to obtain a confirmed result. Gas chromatography/mass spectrometry (GC/MS) is the preferred confirmatory method. us Sveta Wong MD URINE ORDERABLES Final Result Performing Organization Address [facility]/ZIP Co de Phone Number [facility] [address] [place] [address], * Ortiz Top Tube (09/02/2025 8:16 PM TIRE FABRICATOR) Blood No Phlebotomy Charged / Unknown 09/02/2025 8:16 PM TIRE FABRICATOR 09/02/2025 8:22 PM TIRE FABRICATOR Sveta Wong MD CHEMISTRY ORDERABLES Final Res ult Performing Organization Address [facility]/ZIP Co de Phone Number [facility] [address] [place] [address], * Red Top Tube (09/02/2025 8:16 PM TIRE FABRICATOR) Blood No Phlebotomy Charged / Unknown 09/02/2025 8:16 PM TIRE FABRICATOR 09/02/2025 8:22 PM TIRE FABRICATOR Sveta Wong MD CHEMISTRY ORDERABLES Final Res ult Performing Organization Address [facility] Co de Phone Number [facility] [address] [place] [address], [place] [phone] * Blue Top Tube (09/02/2025 8:16 PM TIRE FABRICATOR) Blood No Phlebotomy Charged / Unknown 09/02/2025 8:16 PM TIRE FABRICATOR 09/02/2025 8:22 PM TIRE FABRICATOR Sveta Wong MD HEMATOLOGY ORDERABLES Final Re sult Performing Organization Address [facility] Co de Phone Number [facility] [address] [place] [address], * (ABNORMAL) CBC with Auto Differential (09/02/2025 8:13 PM TIRE FABRICATOR) WBC 6.73 3.88 - 10.35 10(3)/mcL 09/02/2025 8:26 PM TIRE FABRICATOR [facility] RBC 4.11 3.78 - 5.29 10(6)/mcL 09/02/2025 8:26 PM [facility] HEMOGLOBIN (HGB) 10.6(L) 12.0 - 16.0 g/dL 09/02/2025 8:26 PM [facility] HEMATOCRIT (HCT) 33.1(L) 37.0 - 47.0 % 09/02/2025 8:26 PM [facility] MCV 80.5(L) 82.0 - 100.0 fL 09/02/2025 8:26 PM [facility] MCH 25.8(L) 25.9 - 32.7 pg 09/02/2025 8:26 PM [facility] MCHC 32.0 31.0 - 34.1 g/dL 09/02/2025 8:26 PM [facility] RDW 13.0 11.8 - 15.7 % 09/02/2025 8:26 PM [facility] PLATELET COUNT 253 150 - 450 10(3)/mcL 09/02/2025 8:26 PM [facility] MPV 9.2 8.7 - 12.2 fL 09/02/2025 8:26 PM [facility] NEUTROPHILS 62.9 40.0 - 75.0 % 09/02/2025 8:26 PM [facility] IMMATURE GRANULOCYTE 0.4 0.0 - 2.0 % 09/02/2025 8:26 PM [facility] LYMPHOCYTES 23.6 20.0 - 40.0 % 09/02/2025 8:26 PM [facility] MONOCYTES 8.5 0.0 - 10.0 % 09/02/2025 8:26 PM [facility] EOSINOPHILS 3.9 0.0 - 4.0 % 09/02/2025 8:26 PM [facility] BASOPHILS 0.7 0.0 - 1.0 % 09/02/2025 8:26 PM [facility] ABSOLUTE NEUTROPHILS 4.23 1.50 - 8.00 10(3)/mcL 09/02/2025 8:26 PM [facility] Blood Venipuncture / Unknown 09/02/2025 8:13 PM TIRE FABRICATOR 09/02/2025 8:22 PM TIRE FABRICATOR us Sveta Wong MD HEMATOLOGY ORDERABLES Final Re sult Performing Organization Address City/[facility]/ZIP Co de Phone Number [facility] [address] [place] [address], [place] [phone] * Lipase (09/02/2025 8:13 PM TIRE FABRICATOR) LIPASE 84 23 - 300 U/L 09/02/2025 8:35 PM [facility] Blood Venipuncture / Unknown 09/02/2025 8:13 PM TIRE FABRICATOR 09/02/2025 8:22 PM TIRE FABRICATOR Sveta Wong MD CHEMISTRY ORDERABLES Final Res ult Performing Organization Address [facility] Co de Phone Number [facility] [address] [place] [address], [place] [phone] * (ABNORMAL) CMP (09/02/2025 8:13 PM TIRE FABRICATOR) SODIUM 137 137 - 145 mmol/L 09/02/2025 8:35 PM [facility] POTASSIUM 4.3 3.5 - 5.1 mmol/L 09/02/2025 8:35 PM [facility] CHLORIDE 102 98 - 107 mmol/L 09/02/2025 8:35 PM [facility] CO2, VENOUS 27 22 - 30 mmol/L 09/02/2025 8:35 PM [facility] GLUCOSE 113(H) 70 - 106 mg/dL 09/02/2025 8:35 PM [facility] BUN 15 7 - 17 mg/dL 09/02/2025 8:35 PM [facility] CREATININE, BLOOD 0.80 0.52 - 1.04 mg/dL 09/02/2025 8:35 PM [facility] ALKALINE PHOSPHATASE 145(H) 38 - 126 U/L 09/02/2025 8:35 PM [facility] SGPT (ALT) 39(H) 1 - 34 U/L 09/02/2025 8:35 PM [facility] SGOT (AST) 64(H) 14 - 36 U/L 09/02/2025 8:35 PM [facility] ALBUMIN 3.9 3.5 - 5.0 g/dL 09/02/2025 8:35 PM [facility] T BILI 0.6 0.2 - 1.3 mg/dL 09/02/2025 8:35 PM [facility] TOTAL PROTEIN 7.4 6.3 - 8.2 g/dL 09/02/2025 8:35 PM [facility] CALCIUM 9.2 8.4 - 10.2 mg/dL 09/02/2025 8:35 PM [facility] ANION GAP 8.0 4.0 - 16.0 mmol/L 09/02/2025 8:35 PM [facility] BUN/CREATININE RATIO 19 7 - 30 ratio 09/02/2025 8:35 PM [facility] A/G RATIO 1.1 0.9 - 2.3 09/02/2025 8:35 PM [facility] GLOBULIN 3.5 2.2 - 3.9 g/dL 09/02/2025 8:35 PM [facility] GFR, ESTIMATED 88 >60 09/02/2025 8:35 PM [facility] OSMOLALITY 275 273 - 304 mOsm/kg 09/02/2025 8:35 PM [facility] Blood Venipuncture / Unknown 09/02/2025 8:13 PM TIRE FABRICATOR 09/02/2025 8:22 PM [facility] us Sveta Wong MD CHEMISTRY ORDERABLES Final Res ult [facility] [address] [place] [address], [place] [phone] from Last 3 Months Insurance [place] MEDICARE C [facility] [place]ICAID [place] Care Teams Geologic Technician Relationship Specialty Start Date End Date Adele Lagos MD [address] [place] [address] PCP - General Family Medicine 07/15/20
== END 2025-09-05 22:15 | disposition left against medical advice (07) ==
PROVIDERS: PCP Family Medicine
DX: R10.9 Unspecified abdominal pain (principal)
CPT/HCPCS: 99199